=== PATIENT | male | born 1955 | race American Indian/Alaskan Native ===

== ENCOUNTER 2018-05-27 08:46 | Outpatient (CLI) | payer MEDICARE, MEDICAID, SELFPAY ==
[2018-05-27 09:06] LABS: Abs Immature Grans 0.05 k/cumm (0.0-0.09); Absolute Eosinophil Count 0.04 k/cumm (0.0-0.7); Absolute Monocyte Count 1.42 k/cumm (0.11-0.7); Basophils % 0.1; Eosinophils % 0.2; HCT 42.4 % (40.0-50.0); HGB 14.5 g/dL (13.5-17.5); Immature Grans % 0.3; Lymphocytes % 5.3; Mean Corp. HGB Concentration 34.2 g/dL (32.0-36.0); Mean Corpuscular Hemoglobin 32.5 pg (27.0-33.0); Mean Corpuscular Volume 95.1 fL (80-95); Mean Platelet Volume 9.5 fL (8.0-11.0); Monocytes % 8.1; Platelet Count 233 x1000/uL (130-400); RBC 4.46 m/cumm (4.50-6.00); White Blood Cell Count 17.52 k/cumm (4.4-10.8)
[2018-05-27 09:07] LABS: Absolute Basophil Count 0.02 k/cumm (0.0-0.2); Absolute Lymphocyte Count 0.93 k/cumm (1.2-3.4); Absolute Neutrophil Count 15.07 k/cumm (1.2-6.7)
== END 2018-05-27 08:47 ==
PROVIDERS: PCP Nurse Practitioner Psychiatric/Mental Health; Visit Provider Nurse Practitioner Psychiatric/Mental Health
DX: F20.9 Schizophrenia, unspecified (principal); Z79.899 Other long term (current) drug therapy
CPT/HCPCS: 36415; 85025

== ENCOUNTER 2018-06-24 08:46 | Outpatient (CLI) | payer MEDICARE, MEDICAID, SELFPAY ==
[2018-06-24 09:22] LABS: Abs Immature Grans 0.03 k/cumm (0.0-0.09); Absolute Eosinophil Count 0.06 k/cumm (0.0-0.7); Absolute Lymphocyte Count 1.02 k/cumm (1.2-3.4); Absolute Monocyte Count 0.59 k/cumm (0.11-0.7); Absolute Neutrophil Count 4.23 k/cumm (1.2-6.7); HCT 42.1 % (40.0-50.0); Immature Grans % 0.5; Lymphocytes % 17.2; Mean Corp. HGB Concentration 33.3 g/dL (32.0-36.0); Mean Corpuscular Hemoglobin 32.1 pg (27.0-33.0); Mean Corpuscular Volume 96.6 fL (80-95); Monocytes % 9.9; Neutrophils % 71.4; Platelet Count 212 x1000/uL (130-400); RBC 4.36 m/cumm (4.50-6.00); RBC Distribution Width 13.5 % (11.8-14.1); White Blood Cell Count 5.93 k/cumm (4.4-10.8)
== END 2018-06-24 09:06 ==
PROVIDERS: PCP Nurse Practitioner Psychiatric/Mental Health; Visit Provider Nurse Practitioner Psychiatric/Mental Health
DX: F20.9 Schizophrenia, unspecified (principal); Z79.899 Other long term (current) drug therapy
CPT/HCPCS: 36415; 85025

== ENCOUNTER 2018-07-22 08:43 | Outpatient (CLI) | payer MEDICARE, MEDICAID, SELFPAY ==
[2018-07-22 09:30] LABS: Abs Immature Grans 0.26 k/cumm (0.0-0.09); Absolute Lymphocyte Count 0.87 k/cumm (1.2-3.4); Absolute Monocyte Count 1.57 k/cumm (0.11-0.7); Absolute Neutrophil Count 11.24 k/cumm (1.2-6.7); Basophils % 0.1; Eosinophils % 0.6; HCT 36.5 % (40.0-50.0); HGB 12.3 g/dL (13.5-17.5); Immature Grans % 1.9; Lymphocytes % 6.2; Mean Corp. HGB Concentration 33.7 g/dL (32.0-36.0); Mean Corpuscular Hemoglobin 32.1 pg (27.0-33.0); Mean Corpuscular Volume 95.3 fL (80-95); Mean Platelet Volume 9.3 fL (8.0-11.0); Monocytes % 11.2; Platelet Count 417 x1000/uL (130-400); RBC 3.83 m/cumm (4.50-6.00); RBC Distribution Width 12.6 % (11.8-14.1); White Blood Cell Count 14.05 k/cumm (4.4-10.8)
[2018-07-22 09:33] LABS: Absolute Basophil Count 0.01 k/cumm (0.0-0.2); Absolute Eosinophil Count 0.08 k/cumm (0.0-0.7)
[2018-07-22 09:55] LABS: Diff Comment Manual Differential; RBC Morphology Normal
== END 2018-07-22 09:03 ==
PROVIDERS: PCP Nurse Practitioner Psychiatric/Mental Health; Visit Provider Nurse Practitioner Psychiatric/Mental Health
DX: F20.9 Schizophrenia, unspecified (principal); Z79.899 Other long term (current) drug therapy
CPT/HCPCS: 36415; 85025

== ENCOUNTER 2018-08-06 09:00 | Outpatient (CLI) | payer MEDICARE, MEDICAID, SELFPAY ==
[2018-08-06 09:36] LABS: Abs Immature Grans 0.04 k/cumm (0.0-0.09); Absolute Basophil Count 0.01 k/cumm (0.0-0.2); Absolute Eosinophil Count 0.07 k/cumm (0.0-0.7); Absolute Monocyte Count 0.75 k/cumm (0.11-0.7); Absolute Neutrophil Count 5.78 k/cumm (1.2-6.7); Basophils % 0.1; Eosinophils % 0.9; HCT 38.1 % (40.0-50.0); HGB 12.8 g/dL (13.5-17.5); Immature Grans % 0.5; Lymphocytes % 17.4; Mean Corp. HGB Concentration 33.6 g/dL (32.0-36.0); Mean Corpuscular Hemoglobin 32.1 pg (27.0-33.0); Mean Corpuscular Volume 95.5 fL (80-95); Mean Platelet Volume 9.7 fL (8.0-11.0); Monocytes % 9.3; Neutrophils % 71.8; Platelet Count 311 x1000/uL (130-400); RBC 3.99 m/cumm (4.50-6.00); RBC Distribution Width 13.1 % (11.8-14.1); White Blood Cell Count 8.05 k/cumm (4.4-10.8)
== END 2018-08-06 09:20 ==
PROVIDERS: PCP Specialist/Technologist Athletic Trainer; Visit Provider Nurse Practitioner Psychiatric/Mental Health
DX: F20.9 Schizophrenia, unspecified (principal); Z79.899 Other long term (current) drug therapy
CPT/HCPCS: 36415; 85025

== ENCOUNTER 2018-08-09 10:01 | Outpatient (REF) | payer MEDICARE, MEDICAID, SELFPAY ==
[2018-08-12 17:24] LABS: Cortisol, U 26 mcg/24 h (3.5-45); Urine Volume 1550 mL
[2018-08-12 17:42] LABS: Midnight Cortisol <50 ng/dL (<100)
[2018-08-14 10:52] LABS: Urine Volume 1550 mL
== END 2018-08-09 10:21 ==
LOC: LBN 10:01
PROVIDERS: PCP Specialist/Technologist Athletic Trainer; Visit Provider Internal Medicine Endocrinology, Diabetes & Metabolism
DX: E27.8 Other specified disorders of adrenal gland (principal)
CPT/HCPCS: 81050; 82384; 82530; 83789

== ENCOUNTER 2018-08-18 11:34 | Outpatient (REF) | payer MEDICARE, MEDICAID, SELFPAY ==
[2018-08-18 21:59] LABS: Anion Gap 9.3 mmol/L (3-11); BUN 13 mg/dL (7-18); CO2 26.7 mmol/L (21.0-32.0); CREATININE 0.85 mg/dL (0.70-1.30); Calcium 8.7 mg/dL (8.5-10.1); Chloride 102 mmol/L (98-107); Glucose 150 mg/dL (70-100); Potassium 4.5 mmol/L (3.5-5.1); Sodium 138 mmol/L (136-145)
[2018-08-18 23:27] LABS: Cholesterol 126 mg/dL (50-200); HDL Cholesterol 58 mg/dL (40-60); LDL CHOLESTEROL 54 mg/dL (<100); Triglyceride 48 mg/dL (30-150)
== END 2018-08-18 11:54 ==
LOC: NCHCN 11:34
PROVIDERS: PCP Specialist/Technologist Athletic Trainer; Visit Provider Specialist/Technologist Athletic Trainer
DX: E78.5 Hyperlipidemia, unspecified (principal); E11.9 Type 2 diabetes mellitus without complications
CPT/HCPCS: 80048; 80061; 83721

== ENCOUNTER 2018-08-19 00:48 | Outpatient (CLI) | payer MEDICARE, MEDICAID, SELFPAY ==
--- NOTE | 2018-08-19 13:16 | DI.CTLCSR_ITS ---
SYMPTOMS/DIAGNOSIS: CURRENT SMOKER, F17.210; COPD WO EXACERBATION, J44.[address], LOW DOSE LUNG CANCER SCREENING PROTOCOL: CT examination of the chest was performed utilizing low dose lung cancer screening protocol. Examination is compared with most recent chest CT of . The lungs were clear at that time except for mild apparent scarring or atelectasis in the lingula and right middle lobe. On today's examination, there are scattered and diffuse reticulonodular radiodensities involving a large portion of the right lower lobe and significant areas of the right upper lobe as well. There are multiple focal areas of irregular increased radiodensity, which may represent small areas of consolidation. A couple of questionable areas of microcavitation may be present. Similar findings are seen in left upper lobe peripherally. Most prominent area of increased intrapulmonary radiodensity is an area of ground- glass and consolidative infiltrate in the right upper lobe adjacent to the fissure, this again may contain a couple of small areas of microcavitation. The findings are most consistent with infectious or inflammatory process; possibility of neoplastic disease not excluded on the basis of this examination. Clinical correlation and follow-up CT recommended. Note is again made of diffuse central lobular emphysema, no gross mediastinal mass or adenopathy. No gross bronchiectasis. No pleural effusion. CONCLUSION: 1. Probable diffuse infectious versus inflammatory process, neoplastic disease not excluded. 2. Six-month low dose chest CT followup recommended for part solid 24 mm right upper lobe lesion as described above. Lung-RAD Category: 3- Probably Benign, with modifier S. Lung- RAD Management of Findings: 6 month LDCT follow-up
== END 2018-08-19 01:08 ==
PROVIDERS: PCP Specialist/Technologist Athletic Trainer; Visit Provider Internal Medicine
DX: Z12.2 Encounter for screening for malignant neoplasm of respiratory organs (principal); F17.210 Nicotine dependence, cigarettes, uncomplicated; J44.9 Chronic obstructive pulmonary disease, unspecified; R91.8 Other nonspecific abnormal finding of lung field; R91.1 Solitary pulmonary nodule
CPT/HCPCS: G0297

== ENCOUNTER 2018-09-03 08:47 | Outpatient (CLI) | payer MEDICARE, MEDICAID, SELFPAY ==
[2018-09-03 09:34] LABS: Abs Immature Grans 0.05 k/cumm (0.0-0.09); Absolute Basophil Count 0.01 k/cumm (0.0-0.2); Absolute Eosinophil Count 0.21 k/cumm (0.0-0.7); Absolute Lymphocyte Count 1.23 k/cumm (1.2-3.4); Absolute Monocyte Count 0.93 k/cumm (0.11-0.7); Absolute Neutrophil Count 12.38 k/cumm (1.2-6.7); Basophils % 0.1; Eosinophils % 1.4; HCT 38.3 % (40.0-50.0); HGB 12.4 g/dL (13.5-17.5); Immature Grans % 0.3; Lymphocytes % 8.3; Mean Corp. HGB Concentration 32.4 g/dL (32.0-36.0); Mean Corpuscular Hemoglobin 31.3 pg (27.0-33.0); Mean Corpuscular Volume 96.7 fL (80-95); Monocytes % 6.3; Neutrophils % 83.6; Platelet Count 346 x1000/uL (130-400); RBC 3.96 m/cumm (4.50-6.00); RBC Distribution Width 13.7 % (11.8-14.1); White Blood Cell Count 14.81 k/cumm (4.4-10.8)
== END 2018-09-03 09:07 ==
PROVIDERS: PCP Specialist/Technologist Athletic Trainer; Visit Provider Nurse Practitioner Psychiatric/Mental Health
DX: F20.9 Schizophrenia, unspecified (principal); Z79.899 Other long term (current) drug therapy
CPT/HCPCS: 36415; 85025

== ENCOUNTER 2018-10-01 09:18 | Outpatient (CLI) | payer MEDICARE, MEDICAID, SELFPAY ==
[2018-10-01 10:14] LABS: Abs Immature Grans 0.11 k/cumm (0.0-0.09); Absolute Eosinophil Count 0.06 k/cumm (0.0-0.7); Absolute Monocyte Count 1.57 k/cumm (0.11-0.7); Eosinophils % 0.2; HCT 32.9 % (40.0-50.0); HGB 10.7 g/dL (13.5-17.5); Immature Grans % 0.4; Lymphocytes % 3.6; Mean Corp. HGB Concentration 32.5 g/dL (32.0-36.0); Mean Corpuscular Hemoglobin 31.1 pg (27.0-33.0); Mean Corpuscular Volume 95.6 fL (80-95); Mean Platelet Volume 10.2 fL (8.0-11.0); Monocytes % 5.4; Neutrophils % 90.4; Platelet Count 272 x1000/uL (130-400); RBC 3.44 m/cumm (4.50-6.00); RBC Distribution Width 13.7 % (11.8-14.1)
[2018-10-01 10:38] LABS: Absolute Lymphocyte Count 1.05 k/cumm (1.2-3.4); White Blood Cell Count 29.09 k/cumm (4.4-10.8)
[2018-10-01 10:39] LABS: Diff Comment Agrees w/ Instrument; RBC Morphology Normal
== END 2018-10-01 09:38 ==
PROVIDERS: PCP Specialist/Technologist Athletic Trainer; Visit Provider Nurse Practitioner Psychiatric/Mental Health
DX: F20.9 Schizophrenia, unspecified (principal); Z79.899 Other long term (current) drug therapy
CPT/HCPCS: 85025

== ENCOUNTER 2018-11-05 09:52 | Outpatient (CLI) | payer MEDICARE, MEDICAID, SELFPAY ==
[2018-11-05 10:26] LABS: Abs Immature Grans 0.07 k/cumm (0.0-0.09); Absolute Eosinophil Count 0.16 k/cumm (0.0-0.7); Absolute Lymphocyte Count 1.28 k/cumm (1.2-3.4); Basophils % 0.1; Eosinophils % 0.9; HCT 35.7 % (40.0-50.0); HGB 11.1 g/dL (13.5-17.5); Immature Grans % 0.4; Lymphocytes % 7.2; Mean Corp. HGB Concentration 31.1 g/dL (32.0-36.0); Mean Corpuscular Hemoglobin 28.7 pg (27.0-33.0); Mean Corpuscular Volume 92.2 fL (80-95); Mean Platelet Volume 9.2 fL (8.0-11.0); Monocytes % 7.2; Neutrophils % 84.2; Platelet Count 403 x1000/uL (130-400); RBC 3.87 m/cumm (4.50-6.00); RBC Distribution Width 13.5 % (11.8-14.1); White Blood Cell Count 17.71 k/cumm (4.4-10.8)
[2018-11-05 10:39] LABS: Absolute Basophil Count 0.02 k/cumm (0.0-0.2); Absolute Monocyte Count 1.28 k/cumm (0.11-0.7); Absolute Neutrophil Count 14.91 k/cumm (1.2-6.7)
== END 2018-11-05 10:12 ==
PROVIDERS: PCP Specialist/Technologist Athletic Trainer; Visit Provider Nurse Practitioner Psychiatric/Mental Health
DX: F20.9 Schizophrenia, unspecified (principal); Z79.899 Other long term (current) drug therapy
CPT/HCPCS: 36415; 85025

== ENCOUNTER 2018-11-17 13:40 | Outpatient (REF) | payer MEDICARE, MEDICAID, SELFPAY ==
[2018-11-17 20:58] LABS: Absolute Basophil Count 0.01 k/cumm (0.0-0.2); Absolute Eosinophil Count 0.06 k/cumm (0.0-0.7); Absolute Lymphocyte Count 1.19 k/cumm (1.2-3.4); Absolute Monocyte Count 1.08 k/cumm (0.11-0.7); Absolute Neutrophil Count 12.29 k/cumm (1.2-6.7); Basophils % 0.1; Eosinophils % 0.4; HCT 32.6 % (40.0-50.0); HGB 10.4 g/dL (13.5-17.5); Immature Grans % 0.7; Lymphocytes % 8.1; Mean Corp. HGB Concentration 31.9 g/dL (32.0-36.0); Mean Corpuscular Volume 90.8 fL (80-95); Mean Platelet Volume 9.9 fL (8.0-11.0); Monocytes % 7.3; Neutrophils % 83.4; Platelet Count 480 x1000/uL (130-400); RBC 3.59 m/cumm (4.50-6.00); RBC Distribution Width 13.9 % (11.8-14.1); White Blood Cell Count 14.74 k/cumm (4.4-10.8)
[2018-11-17 21:09] LABS: Iron 25 ug/dL (50-175); Total Iron Binding Capacity 271 ug/dL (250-450); Transferrin Sat 9 % (20-55)
[2018-11-17 21:36] LABS: Anion Gap 9.9 mmol/L (3-11); BUN 9 mg/dL (7-18); CO2 30.1 mmol/L (21.0-32.0); Calcium 8.7 mg/dL (8.5-10.1); Chloride 100 mmol/L (98-107); Ferritin 69 ng/mL (8-388); Folate 6.4 ng/mL (8.6-20.0); Glucose 175 mg/dL (70-100); Potassium 4.5 mmol/L (3.5-5.1); Sodium 140 mmol/L (136-145); Vitamin B12 278 pg/mL (193-986)
[2018-11-17 21:47] LABS: C-Reactive Protein 2.69 mg/dL (0.0-0.3)
[2018-11-17 23:09] LABS: ESR 116 MM/HR (1-20)
== END 2018-11-17 14:00 ==
LOC: NCHCN 13:40
PROVIDERS: PCP Specialist/Technologist Athletic Trainer; Visit Provider Specialist/Technologist Athletic Trainer
DX: D64.9 Anemia, unspecified (principal)
CPT/HCPCS: 80048; 85652; 82607; 82728; 82746; 83540; 83550; 85025; 86140

== ENCOUNTER 2018-12-01 08:35 | Inpatient (IN) | payer MEDICARE, MEDICAID, SELFPAY ==
[2018-12-01] VITALS (61 sets, daily range): BP systolic 133–165; BP diastolic 62–82; PULSE 78–96; RESP 8–38; TEMP 36.5–36.9; O2SAT 87–97
--- NOTE | 2018-12-01 08:58 | W.ED.GENAD ---
Discharge Plan Disposition Patient Disposition: [facility] INPATIENT Condition: Stable Discharge Details Chief Complaint: RespSymp Clinical Impression: Pulmonary cavitary lesion Reason For Visit: CARLEX Primary Care Provider: Vinnie Black ED Provider: Tyshawn Aguirre Home Meds and New Rx's Prescriptions: No Action celecoxib [Celebrex] 200 MG capsule 200 mg PO DAILY RF: 0 ziprasidone HCl [Geodon] 80 MG capsule 160 mg PO .QHS RF: 0 ziprasidone HCl [Geodon] 80 MG capsule 80 mg PO DAILY RF: 0 aspirin 325 MG tablet 325 mg PO DAILY RF: 0 clozapine [Clozaril] 100 MG tablet 200 mg PO DAILY RF: 0 clozapine [Clozaril] 100 MG tablet 325 mg PO .QHS RF: 0 acetaminophen [Mapap Extra Strength] 500 MG tablet 1,000 mg PO .Q8HRS RF: 0 simvastatin 20 MG tablet 20 mg PO .QHS RF: 0 metformin 1,000 MG tablet 1,000 mg PO BID RF: 0 omeprazole 20 MG capsule,delayed release(DR/EC) 20 mg PO DAILY RF: 0 Flovent HFA 120 PUFF HFA aerosol inhaler 2 puff Inhalation BID RF: 0 pioglitazone [Actos] 30 MG tablet 30 mg PO DAILY RF: 0 bupropion HCl [Wellbutrin XL] 300 MG tablet extended release 24 hr 300 mg PO DAILY RF: 0 Spiriva with HandiHaler 1 PUFF capsule, w/inhalation device 1 puff Inhalation DAILY RF: 0 Incruse Ellipta 1 PUFF blister with device 1 puff Inhalation DAILY RF: 0 ProAir RespiClick 90 MCG aerosol powdr breath activated 2 puff Inhalation QID PRNRF: 0 Medical Decision Making 63-year-old male with a history of COPD notes that he has had 1 week of cough with mild shortness of breath. This morning had a bloody nose and then had a coughing spell with production of clot. He states he has had some brown sputum this week. He arrives afebrile, well-appearing, saturating 94% on 1 L oxygen applied by EMS with improved. Given his history of COPD patient given inhaled DuoNeb updrafts, parenteral steroids, and referred for chest x-ray. Patient has hypomagnesemia and hypokalemia and supplementation initiated in the ED. Note of mild anemia with hgb 8. Chest x-ray reveals a right base mass/opacity and patient referred for CT scan of the chest which reveals cavitary lung lesions RML and RLL. Blood cultures obtained, sputum culture pending, and patient given Zosyn. Case discussed with Dr. Matos, who requested I discuss with available pulmonary consultation. No beds available at [facility]. [facility] contacted and case discussed with on-call pulmonology Dr. Stanley. She states that they would not acutely intervene on the patient. She recommends admission, coverage with broad-spectrum antibiotics and states that this likely aspiration with anaerobes but if there is not radiographic resolution or clinical decline that pulmonology is available for repeat consultation. Patient to be admitted to [facility]. Lab Data Lab results reviewed: Yes I reviewed the patient's lab results. Laboratory Results - last 24 hr 12/01/18 09:00 Sodium 141 Potassium 3.0 L Chloride 102 Carbon Dioxide 30.1 Anion Gap 8.9 BUN 10 Creatinine 0.82 Estimated GFR/1.73 m2 >= 60.00 Glucose 196 H Calcium 7.7 L Magnesium 1.0 L Total Bilirubin 0.3 AST 10 L ALT 8 L Alkaline Phosphatase 98 Troponin I 0.02 Total Protein 6.6 Albumin 2.1 L ECG Data Attestation: I personally reviewed and interpreted this ECG (s) as follows: Interpretation: Normal sinus rhythm, rate of 87, the QRS is narrow, there is nonspecific flattening of the ST segments without ST segment elevation HPI General Mode of arrival: EMS. Date/Time Provider Initiated Documentation: 12/01/18 08:41. Limitations to Documentation: no limitations. Information obtained by: patient and EMS. History of Present Illness described as moderate, Quality is described as dull, and is localized to the chest. Patient reports no radiation. Patient started experiencing this day(s) and it has been constant. Rest improves symptom(s), Other factors that worsen symptoms (Exercise) . Patient notes cough and other (Bloody nose this morning and then coughed up blood.); denies fever/chills. Patient did receive the following treatments prior to arrival, other (Oxygen) Related Data Home Medications Medication Instructions Recorded Confirmed Flovent HFA 2 puff INHALATION BID 06/18/17 12/01/18 Incruse Ellipta 1 puff INHALATION DAILY 06/18/17 12/01/18 ProAir RespiClick 2 puff INHALATION QID PRN 06/18/17 12/01/18 Spiriva with HandiHaler 1 puff INHALATION DAILY 06/18/17 12/01/18 acetaminophen [Mapap Extra 1,000 mg PO .Q8HRS 06/18/17 12/01/18 Strength] aspirin 325 mg PO DAILY 06/18/17 12/01/18 bupropion HCl [Wellbutrin XL] 300 mg PO DAILY 06/18/17 12/01/18 celecoxib [Celebrex] 200 mg PO DAILY 06/18/17 12/01/18 clozapine [Clozaril] 200 mg PO DAILY 06/18/17 12/01/18 clozapine [Clozaril] 325 mg PO .QHS 06/18/17 12/01/18 metformin 1,000 mg PO BID 06/18/17 12/01/18 omeprazole 20 mg PO DAILY 06/18/17 12/01/18 pioglitazone [Actos] 30 mg PO DAILY 06/18/17 12/01/18 simvastatin 20 mg PO .QHS 06/18/17 12/01/18 ziprasidone HCl [Geodon] 80 mg PO DAILY 06/18/17 12/01/18 ziprasidone HCl [Geodon] 160 mg PO .QHS 06/18/17 12/01/18 Allergies Allergy/AdvReac Type Severity Reaction Status Date / Time No Known Allergies Allergy Unverified 06/18/17 15:49 General Stated Complaint: RespSymp KENYON: 3 Review of Systems Review of Systems 8 systems reviewed and otherwise [facility] Social History Smoking and Tabacco status: Former Tobacco Use Exam Narrative Exam Narrative: GEN: awake, alert, oriented 3. Pleasant, well groomed, interactive. HEAD: Normocephalic, atraumatic ENT: Mucous membranes moist, oropharynx unremarkable, nares with dried blood, no active bleeding external ear exam unremarkable EYES: PERRL, EOMI NECK: Full ROM, no JESSE, no menigismus CHEST/RESP: Nontender, clear to auscultation bilateral, no wheeze/rhonchi/rales but diminished bilat right greater than left at the base CARDIOVASCULAR: RRR, no murmur, rub zackary. 2+ Rad pulse bilateral ABDOMEN: Soft, nontender, no mass. +Bowel sounds EXT: Full ROM, no edema, no rash Neuro: Grossly normal neurologic exam, conversant, interactive. Psych: Speech fluent, thoughts congruent, affect normal Course Vital Signs Temperature 36.9 C 12/01/18 08:49 Pulse 92 H 12/01/18 08:49 Respiratory Rate 20 12/01/18 08:49 Blood Pressure 133/69 12/01/18 08:49 Pulse Oximetry 95 12/01/18 08:49 Temperature 36.9 C 12/01/18 08:49 Temperature Source Temporal Artery Scan 12/01/18 08:49 Pulse 92 H 12/01/18 08:49 Respiratory Rate 20 12/01/18 08:49 Respiratory Effort Non-Labored 12/01/18 08:54 Blood Pressure 133/69 12/01/18 08:49 Pulse Oximetry 95 12/01/18 08:49 Oxygen Delivery Method Nasal Cannula 12/01/18 08:49 Oxygen Flow Rate 2 12/01/18 08:49
--- NOTE | 2018-12-01 09:00 | DI.RAD_ITS ---
SYMPTOM/DIAGNOSIS: SOB, COPD, SPUTUM PRODUCTION PA AND LATERAL CHEST: Comparison is made with 11/13/[address] dated 08/19/18. The heart size is normal. There is now a dense infiltrate seen in the right lower lobe as well as an additional infiltrate versus atelectasis seen anteriorly in the right lower lobe. There is right sided volume loss. The left lung appears clear. There are underlying emphysematous changes. No effusions are seen. IMPRESSION: Right lower lobe dense infiltrate. Underlying emphysematous and fibrotic changes.
[2018-12-01] MEDS: Albuterol/Ipratropium 3 ML UPD VIAL UPD ×4 (09:06→23:56)
[2018-12-01] MEDS: methylPREDNISolone SUCC 125 MG VIAL IVP (09:06)
[2018-12-01 09:29] LABS: HCT 26.9 % (40.0-50.0); HGB 8.6 g/dL (13.5-17.5); Immature Grans % 0.6; Mean Corpuscular Volume 87.6 fL (80-95); Mean Platelet Volume 9.3 fL (8.0-11.0); Platelet Count 417 x1000/uL (130-400); RBC 3.07 m/cumm (4.50-6.00); RBC Distribution Width 14.1 % (11.8-14.1); White Blood Cell Count 18.29 k/cumm (4.4-10.8)
[2018-12-01 09:41] LABS: ALT 8 U/L (12-78); AST 10 U/L (15-37); Albumin 2.1 g/dL (3.4-5.0); Alkaline Phosphatase 98 U/L (46-116); Anion Gap 8.9 mmol/L (3-11); BUN 10 mg/dL (7-18); Bilirubin, Total 0.3 mg/dL (0.2-1.0); CO2 30.1 mmol/L (21.0-32.0); CREATININE 0.82 mg/dL (0.70-1.30); Calcium 7.7 mg/dL (8.5-10.1); Chloride 102 mmol/L (98-107); Glucose 196 mg/dL (70-100); Sodium 141 mmol/L (136-145); Total Protein 6.6 g/dL (6.4-8.2); Troponin I 0.02 ng/mL (0.00-0.06)
--- NOTE | 2018-12-01 09:41 | NUR.NOTE ---
Nursing Note: Pt awake and alert. occasional harsh cough. states he had some blood in his sputum prior to arrival in ED. neb tx given. currently getting CXR titrated from 2 to 1 L NC oxygen. no acute resp distress. Will continue to monitor.
[2018-12-01 09:59] LABS: Absolute Neutrophil Count 16.83 k/cumm (1.2-6.7)
[2018-12-01 10:00] LABS: Absolute Lymphocyte Count 0.37 k/cumm (1.2-3.4); Diff Comment Manual Differential
[2018-12-01 10:01] LABS: Polychromasia Present
[2018-12-01] MEDS: MAGNESIUM SULFATE 2 GM/50 ML BAG IVPB ×2 (10:05→14:21)
[2018-12-01] MEDS: Potassium Chloride Liquid 20 MEQ PKT PO (10:05)
--- NOTE | 2018-12-01 10:18 | DI.CT_ITS ---
SYMPTOM/DIAGNOSIS: WEAKNESS, COUGH, RT BASE MASS CHEST CT: Comparison is made with low dose chest CT for lung cancer screening dated 08/19/18. Images were performed from the clavicles through the mid portion of the kidneys after IV contrast. There are underlying emphysematous and mild fibrotic changes. There are now multiple bilateral areas of dense consolidation in the right lower lobe. There are areas of cavitation. The findings could represent pulmonary abscesses versus septic emboli. There are a few smaller lesions seen in the right upper lobe anteromedially as well as posteriorly. There is right sided volume loss. Material is noted within the bronchi which may represent mucus. This extends mainly in the right lower lobe extending to the level of the hilum. No pleural or pericardial effusions are seen. The pulmonary arteries and aorta are not well opacified with IV contrast. Pulmonary emboli cannot be excluded. There is no gross evidence of emboli. There is no evidence of aortic dissection. There is an area of high density within an area of water density in the right lower lobe which may represent an active contrast extravasation. There are small mediastinal lymph nodes, consistent with reactive lymph nodes. There is stable prominence of both adrenal glands. Spleen shows small calcifications. The upper portion of the liver is unremarkable. No bony destruction is seen. Degenerative changes are noted in the spine. IMPRESSION: Multiple areas of air space consolidation with air fluid levels suspicious for pulmonary abscesses or septic emboli. There is significant mucus in the right lower lobe bronchi.
[2018-12-01] MEDS: Omnipaque 350 MG/ML 100 ML BTL IJ (10:20)
[2018-12-01] MEDS: POTASSIUM CHLORIDE 10 MEQ/100 ML BAG 100 MEQ IVPB (11:18)
[2018-12-01] MEDS: PIPERACILLIN/TAZO 3.375 GM in Normal Saline 50 ML IVPB ×3 (11:46→23:56)
--- NOTE | 2018-12-01 13:13 | PDOC.ERCMPRO ---
Care Management Progress Note 3/4-Koko is a 63 year old male that resides at [facility] in [facility]. Koko is being admitted for a pulmonary cavitary lesion. This CM called [employer] and spoke with Tyshawn Vences. Tyshawn states that Koko's mental health diagnosis is Schizophrenia with delusional thoughts. Linda Shore, psychiatric nurse practitioner, prescribes Koko's psychiatric medications. Vinnie Black is Koko's PCP. Koko has Medicare and Medicaid. Person to notify for Koko is his sister Sarai De La Fuente in [place]. This CM notified Sarai and she stated that Kook is his own person and that she helps him make decisions. Koko had requested that this CM call Sarai. Sarai requested more information. Dr. Aguirre called her and discussed Koko's diagnosis. Justinpamella requested his teeth be brought in. Tyshawn from [facility] stated that he would find someone to bring in Koko's teeth. Petra from [facility] called and stated that she was bringing in Koko's teeth along with his clozaril. Petra stated the last time Koko was here the hospital did not have the clozaril. Discussed with Dr. Aguirre who stated to have Petra bring it in.
--- NOTE | 2018-12-01 13:38 | CMPROGNOTE_ITS ---
Care Management Progress Note 3/4-Koko is a 63 year old male that resides at [facility] in [facility]. Koko is being admitted for a pulmonary cavitary lesion. This CM called [employer] and spoke with Tyshawn Vences. Tyshawn states that Koko's mental health diagnosis is Schizophrenia with delusional thoughts. Linda Shore, psychiatric nurse practitioner, prescribes Koko's psychiatric medications. Vinnie Black is Koko's PCP. Koko has Medicare and Medicaid. Person to notify for Koko is his sister Sarai De La Fuente in [place]. This CM notified Sarai and she stated that Koko is his own person and that she helps him make decisions. Koko had requested that this CM call Sarai. Sarai requested more information. Dr. Aguirre called her and discussed Koko's diagnosis. Justinpamella requested his teeth be brought in. Tyshawn from [facility] stated that he would find someone to bring in Koko's teeth. Petra from [facility] called and stated that she was bringing in Koko's teeth along with his clozaril. Petra stated the last time Koko was here the hospital did not have the clozaril. Discussed with Dr. Aguirre who stated to have Petra bring it in.
--- NOTE | 2018-12-01 14:00 | DI.US_ITS ---
SYMPTOMS/DIAGNOSIS: UNABLE TO RULE OUT PE ON CTA, ASSESS FOR DVT BILATERAL LOWER EXTREMITY ULTRASOUND: The femoral and popliteal veins, as well as visualized portions of the calf veins, are freely compressible. No thrombus is visible. The Doppler venous waveform augments normally. No superficial venous thrombosis or Banegas's cyst is seen. IMPRESSION: Negative bilateral lower extremity ultrasound.
--- NOTE | 2018-12-01 14:01 | NUR.NOTE ---
Nursing Note: Pt has been off unit at [facility] since 1314. report given to Med Surg, bed not available at this time. will continue to monitor.
[2018-12-01] MEDS: Docusate Sodium 100 MG CAP PO ×2 (14:20→20:54)
[2018-12-01] MEDS: MetroNIDAZOLE 500 MG/100 ML BAG 100 MG IVPB ×2 (14:21→20:54)
--- NOTE | 2018-12-01 15:09 | NUR.NOTE ---
Nursing Note: Pt moved to room 4, still awaiting bed placement.
[2018-12-01] MEDS: methylPREDNISolone SUCC 125 MG VIAL 80 MG IVP ×2 (16:09→23:55)
[2018-12-01] MEDS: Albuterol 2.5 MG/3 ML INH SOLN VIAL UPD (16:14)
--- NOTE | 2018-12-01 16:15 | NUR.NOTE ---
Nursing Note: Pt was 89% on 2.5L, PRN breathing tx given, will continue to monitor. 94% oxygen while on neb. no acute resp distress.
--- NOTE | 2018-12-01 16:41 | NUR.NOTE ---
Nursing Note: Nurse to nurse report given to Daphney RYAN at [facility].
--- NOTE | 2018-12-01 16:56 | HPE_ITS ---
Date of service: 12/01/18 Time of Service: 17:09 Assessment and Plan (1) CAP (community acquired pneumonia): Start date: 12/01/18 Start time: 16:55 Current visit: Yes Status: Acute HX COPD lives in a facility,presents today with hemoptysis this could be CAP, Aspiration pneumonia, TB can not be excluded, and lung abscess. CXR with Right lower lobe infilitrate and CT scan suspicious for pulmonary abscesses. Started on Vanco, zosyn, flagyl, will get echo to r/o endocarditis given pulmonary abscesses, r/o TB, denies fevers, night sweats and recent weight loss. Doppler u/s negative for DVT. Steroids, albuterol and updraft. (2) Hemoptysis: Start date: 12/01/18 Start time: 17:01 Current visit: Yes Status: Acute Awaiting sputum culture, see above. (3) Diabetes: Start date: 12/01/18 Start time: 17:01 Current visit: Yes Status: Chronic NIDD2. Will use SSI while in the hospital, hold actos and metformin for tighter control in setting of infection. (4) Schizo affective schizophrenia: Start date: 12/01/18 Start time: 17:02 Current visit: Yes Status: Acute Continue clozapine and geodeon (5) Lung abscess: Start date: 12/01/18 Start time: 17:05 Current visit: Yes Status: Acute CT reveals lung abscess, being treated for CAP, Aspiration, Pneumonia, r/o endocarditis with ECHO, swallow eval, vanco, flagyl and zosyn for pneumonia. R/o TB as well. (6) Cavitary lesion of lung: Start date: 12/01/18 Start time: 17:07 Current visit: Yes Status: Acute see above (7) DVT prophylaxis: Start date: 12/01/18 Start time: 17:07 Current visit: Yes Status: Acute Chemical prophylaxis is contraindicated with hemopytsis. TEDs and SCDs. History of Present Illness Chief Complaint: HEMOPTYSIS, CAP, LUNG ABSCESSES Narrative: Mr. Estevez is a 63 y.o. m with history of COPD who presents to [facility] Emergency Department for weakness and Hemoptysis onset this am. Mr Estevez has a PMH COPD not on oxygen, Schizophrenia, NIDD 2, and CVA 4-5 years ago without deficit. He lives in an assisted living facility and over the last couple of weeks has been feeling more tired. Per staff he has not been febrile or coughing, no weight loss, and no night sweats. This morning he s tarted coughing up blood. In the Emergency department a CXR was done revealing Right lower lobe dense infiltrate. Underlying emphysematous and fibrotic changes. A chest CT shows multiple areas of air space consolidation with air fluid levels suspicious for pulmonary abscesses or septic emboli. He was started on vanco, zosyn and flagyl for questionable CAP, Aspiration pneumonia. A swallow evaluation has been ordered for questionable asp. pneumonia TB can not be excluded at this time, a sputum culture has been ordered along with [employer] TB Gold. Given the lung abscesses an Echo is ordered for questionable endocarditis. Nebs, steroids and updrafts will be started. Venous doppler u/s was negative for DVT. Mechanical dvt prophylaxis is held at this time in the presence of hemoptysis. SCD and TEDs have been ordered. He is a Schizophrenia on clozapine and geodon which will be continued. He is a diabetic, his po medication will be held and SSI will be implemented given he is on steroids and in the setting of infection. Review of Systems Constitutional Reports system reviewed and no additional complaints, except as docu Eyes Reports system reviewed and no additional complaints, except as docu Cardiovascular Reports system reviewed and no additional complaints, except as docu Respiratory Reports as per HPI Gastrointestinal Reports system reviewed and no additional complaints, except as docu Genitourinary Reports system reviewed and no additional complaints, except as docu Musculoskeletal Reports system reviewed and no additional complaints, except as docu Neurologic Reports system reviewed and no additional complaints, except as docu Psychiatric Reports as per HPI Endocrine Reports system reviewed and no additional complaints, except as docu Hematologic/Lymphatic Reports system reviewed and no additional complaints, except as docu PFSH Medical History H/O schizophrenia (Acute) H/O: CVA (cerebrovascular accident) (Acute) COPD (chronic obstructive pulmonary disease) (Chronic) Diabetes mellitus (Chronic) Social History Smoking and Tabacco status: Former Tobacco Use Meds Home Medications Medication Instructions Recorded Confirmed Type Flovent HFA 2 puff INHALATION BID 06/18/17 12/01/18 History Incruse Ellipta 1 puff INHALATION DAILY 06/18/17 12/01/18 History ProAir RespiClick 2 puff INHALATION QID PRN 06/18/17 12/01/18 History Spiriva with HandiHaler 1 puff INHALATION DAILY 06/18/17 12/01/18 History acetaminophen [Mapap Extra 1,000 mg PO .Q8HRS 06/18/17 12/01/18 History Strength] aspirin 325 mg PO DAILY 06/18/17 12/01/18 History bupropion HCl [Wellbutrin XL] 300 mg PO DAILY 06/18/17 12/01/18 History celecoxib [Celebrex] 200 mg PO DAILY 06/18/17 12/01/18 History clozapine [Clozaril] 200 mg PO DAILY 06/18/17 12/01/18 History clozapine [Clozaril] 325 mg PO .QHS 06/18/17 12/01/18 History metformin 1,000 mg PO BID 06/18/17 12/01/18 History omeprazole 20 mg PO DAILY 06/18/17 12/01/18 History pioglitazone [Actos] 30 mg PO DAILY 06/18/17 12/01/18 History simvastatin 20 mg PO .QHS 06/18/17 12/01/18 History ziprasidone HCl [Geodon] 80 mg PO DAILY 06/18/17 12/01/18 History ziprasidone HCl [Geodon] 160 mg PO .QHS 06/18/17 12/01/18 History Allergies Allergy/AdvReac Type Severity Reaction Status Date / Time No Known Allergies Allergy Unverified 06/18/17 15:49 Exam Const General: cooperative and no acute distress [facility] Head: normal to inspection Teeth and gingiva: poor dentition Eyes General: appearance normal, both eyes and all related structures Neck Neck: normal visual inspection Lymphatic: no lymphadenopathy noted and no lymphedema noted Chest Chest: normal inspection of the chest Resp Effort & Inspection: normal respiratory effort and able to speak in complete sentences Auscultation: rhonchi Cardio Jugular venous pressure: no JVD Rate: regular rate Rhythm: regular rhythm Heart Sounds: S1 normal and S2 normal GI Inspection: normal to inspection Palpation: soft and no hepatosplenomegaly Other: obtunded abdomen Skin General skin exam: no rashes or lesions noted Neuro General: alert, awake and oriented x3 Psych Speech and Movement: other (speech is hard to understand, poor dentition) Results Labs : 12/01/18 09:00 12/01/18 09:00 Laboratory Results - last 24 hr 12/01/18 12/01/18 09:00 09:00 WBC 18.29 H RBC 3.07 L Hgb 8.6 L Hct 26.9 L MCV 87.6 MCH 28.0 MCHC 32.0 RDW 14.1 Plt Count 417 H MPV 9.3 Immature Gran % 0.6 Neutrophils % 92.0 Lymphocytes % 2.0 Monocytes % 6.0 Eosinophils % 0.0 Basophils % 0.0 Absolute Neutrophils 16.83 H Absolute Lymphocytes 0.37 L Absolute Monocytes 1.10 H Absolute Eosinophils 0.00 Absolute Basophils 0.00 Differential Comment Manual differential RBC Morphology See below Polychromasia Present Sodium 141 Potassium 3.0 L Chloride 102 Carbon Dioxide 30.1 Anion Gap 8.9 BUN 10 Creatinine 0.82 Estimated GFR/1.73 m2 >= 60.00 Glucose 196 H Calcium 7.7 L Magnesium 1.0 L Total Bilirubin 0.3 AST 10 L ALT 8 L Alkaline Phosphatase 98 Troponin I 0.02 Total Protein 6.6 Albumin 2.1 L Last Vital Signs Temp 36.9 C 12/01/18 08:49 Pulse 90 12/01/18 16:16 Resp 31 H 12/01/18 16:30 BP 159/62 H 12/01/18 16:16 Pulse Ox 91 L 12/01/18 16:30
[2018-12-01] MEDS: Insulin Aspart 300 UNITS/3 ML PEN SC ×2 (17:51→22:03)
--- NOTE | 2018-12-01 19:03 | NUR.NOTE ---
Nursing Note: 12/01/2018 1700H Patient admitted to Med/surg room 228. Patient walked from stretcher to bed safely with good gait. BP elevated at 150/75 otherwise other VS stable. Patient is Alert & oriented x3, calm and cooperative. Made aware of his surroundings.
[2018-12-01] MEDS: Magnesium Chloride 64 MG TABCR PO (20:54)
[2018-12-01] MEDS: guaiFENesin 600 MG TABCR PO (20:54)
[2018-12-01] MEDS: Simvastatin 20 MG TAB PO (20:54)
[2018-12-01] MEDS: Budesonide/Formoterol 160/4.5 6 GM 60 PUFF INH IH (20:55)
[2018-12-01] MEDS: Normal Saline Flush 10 ML SYR IVP (23:56)
[2018-12-02] VITALS (14 sets, daily range): BP systolic 116–175; BP diastolic 45–87; PULSE 77–94; RESP 2–24; TEMP 36–36.8; O2SAT 90–98
[2018-12-02] MEDS: Normal Saline Flush 10 ML SYR IVP ×3 (00:49→23:40)
[2018-12-02] MEDS: MetroNIDAZOLE 500 MG/100 ML BAG 100 MG IVPB ×4 (02:10→21:36)
[2018-12-02] MEDS: Albuterol/Ipratropium 3 ML UPD VIAL UPD ×4 (05:42→23:40)
[2018-12-02] MEDS: PIPERACILLIN/TAZO 3.375 GM in Normal Saline 50 ML IVPB ×4 (05:42→23:40)
[2018-12-02 07:41] LABS: HCT 26.9 % (40.0-50.0); HGB 8.5 g/dL (13.5-17.5); Mean Corp. HGB Concentration 31.6 g/dL (32.0-36.0); Mean Corpuscular Hemoglobin 27.6 pg (27.0-33.0); Mean Corpuscular Volume 87.3 fL (80-95); Mean Platelet Volume 9.3 fL (8.0-11.0); Platelet Count 385 x1000/uL (130-400); RBC 3.08 m/cumm (4.50-6.00); RBC Distribution Width 13.9 % (11.8-14.1); White Blood Cell Count 22.61 k/cumm (4.4-10.8)
[2018-12-02 08:21] LABS: Absolute Lymphocyte Count 0.45 k/cumm (1.2-3.4); Absolute Neutrophil Count 21.25 k/cumm (1.2-6.7); Diff Comment Manual Differential; Hypochromasia 1+
[2018-12-02 08:22] LABS: Poikilocytes 1+; Polychromasia Present
[2018-12-02] MEDS: Docusate Sodium 100 MG CAP PO ×3 (08:47→20:24)
[2018-12-02] MEDS: guaiFENesin 600 MG TABCR PO ×2 (08:47→20:23)
[2018-12-02] MEDS: buPROPion-XL 150 MG TABCR 300 MG PO (08:48)
[2018-12-02] MEDS: Pantoprazole 40 MG TABCR PO ×2 (08:49→20:24)
[2018-12-02] MEDS: Magnesium Chloride 64 MG TABCR PO ×2 (08:49→20:23)
[2018-12-02] MEDS: methylPREDNISolone SUCC 125 MG VIAL 80 MG IVP ×3 (08:50→23:39)
[2018-12-02] MEDS: Insulin Aspart 300 UNITS/3 ML PEN SC ×4 (08:55→21:41)
--- NOTE | 2018-12-02 08:55 | MERGE_ITS ---
*[facility]* *[facility]* [address] [place] [address] Date of study: 12/02/2018 Transthoracic Echocardiography M-mode, complete 2D, complete spectral Doppler, and color Doppler *STUDY CONCLUSIONS* Impressions: There are no typical features of vegetative endocarditis. Summary: 1. Left ventricle: The cavity size was normal. Wall thickness was normal. Systolic function was normal. The estimated ejection fraction was 60-65%. Wall motion was normal; there were no regional wall motion abnormalities. 2. Right ventricle: The cavity size was normal. Wall thickness was normal. Systolic function was normal. 3. Pulmonary arteries: Pulmonary systolic pressure was increased, in the range of 35mm Hg to 40mm Hg. *PATIENT PRESENTATION* Height: 175.3cm ((69in) ) S/D Pressure: 152 / 60 Weight: 62.6kg ((137.7lb) ) BSA: 1.74m^2 Test start time: 09:00 AM. Test stop time: 09:45 AM. PERFORMING Unknown PERFORMING [facility] CONSULTING Vinnie Black THERAPY SITE COORDINATOR RT Josseline (R)(CT), [facility] ORDERING Ellen Chanel REFERRING Ellen Chanel *PROCEDURE DATA* Procedure information: The patient was identified by two identifiers. This study was interpreted by [facility]. Pertinent images and digital data are archived for permanent storage and are available for subsequent review. No prior study was available for comparison. Study status: STAT. Transthoracic echocardiography. M-mode, complete 2D, complete spectral Doppler, and color Doppler. A Transthoracic Echocardiogram was performed. Scanning was performed from the parasternal, apical, subcostal, and suprasternal notch acoustic windows. Images were obtained using an [id number] cardiac ultrasound machine. Image quality was adequate. Study completion: The patient tolerated the procedure well. There were no complications. History: PMH: R/o endocarditis. *CARDIAC ANATOMY* Left ventricle: The cavity size was normal. Wall thickness was normal. Systolic function was normal. The estimated ejection fraction was 60-65%. Wall motion was normal; there were no regional wall motion abnormalities. Aortic valve: Trileaflet; normal thickness leaflets. Mobility was not restricted. Doppler: Transvalvular velocity was within the normal range. There was no stenosis. There was no significant regurgitation. VTI ratio of LVOT to aortic valve: 0.87. Valve area (VTI): 2.5cm^2. Indexed valve area (VTI): 1.5cm^2/m^2. Peak velocity ratio of LVOT to aortic valve: 0.87. Valve area (Vmax): 2.5cm^2. Indexed valve area (Vmax): 1.5cm^2/m^2. Mean velocity ratio of LVOT to aortic valve: 0.8. Valve area (Vmean): 2.3cm^2. Indexed valve area (Vmean): 1.3cm^2/m^2. Mean gradient (S): 5.5mm Hg. Peak gradient (S): 11.1mm Hg. Aorta: Aortic root: The aortic root was normal in size. Ascending aorta: The ascending aorta was normal in size. Mitral valve: Structurally normal valve. Mobility was not restricted. Doppler: Transvalvular velocity was within the normal range. There was no evidence for stenosis. There was no significant regurgitation. Valve area by pressure half-time: 4cm^2. Indexed valve area by pressure half-time: 2.3cm^2/m^2. Peak gradient (D): 5.5mm Hg. Left atrium: The atrium was normal in size. Right ventricle: The cavity size was normal. Wall thickness was normal. Systolic function was normal. Pulmonic valve: Doppler: Transvalvular velocity was within the normal range. There was no evidence for stenosis. There was no significant regurgitation. Tricuspid valve: Structurally normal valve. Doppler: Transvalvular velocity was within the normal range. There was no evidence for stenosis. There was trivial regurgitation. Pulmonary artery: Pulmonary systolic pressure was increased, in the range of 35mm Hg to 40mm Hg. Right atrium: The atrium was normal in size. Pericardium: There was no pericardial effusion. Systemic veins: Inferior vena cava: Well visualized. The vessel was patent and normal in size. The respirophasic diameter changes were blunted (less than 50%). Baseline ECG: Normal sinus rhythm. Measurements Left ventricle Value Reference LV ID, ED, PLAX 5.3 cm 3.5 - 6.0 LV ID, ES, PLAX 3.4 cm 2.1 - 4.0 LV PW thickness, ED, PLAX 1.0 cm LV end-diastolic volume, 1-p A2C 81 ml LV ejection fraction, 1-p A2C 59 % LV end-diastolic volume, 1-p A4C 116 ml LV ejection fraction, 1-p A4C 64 % LV e', lateral 0.09 m/sec LV E/e', lateral 13 LV e', medial 0.096 m/sec LV E/e', medial 12 LV e', average 0.093 m/sec LV E/e', average 13 Ventricular septum Value Reference IVS thickness, ED, PLAX 1.1 cm LVOT Value Reference LVOT ID, A-P 1.9 cm LVOT area 2.9 cm^2 LVOT peak velocity, S 1.45 m/sec LVOT mean velocity, S 0.86 m/sec LVOT VTI, S 27.9 cm LVOT peak gradient, S 8.4 mm Hg LVOT mean gradient, S 3.7 mm Hg Stroke volume (SV), LVOT DP 81 ml Stroke index (SV/bsa), LVOT DP 47 ml/m^2 Aortic valve Value Reference Aortic valve peak velocity, S 1.7 m/sec Aortic valve mean velocity, S 1.08 m/sec Aortic valve VTI, S 32.0 cm Aortic mean gradient, S 5.5 mm Hg Aortic peak gradient, S 11.1 mm Hg VTI ratio, LVOT/AV 0.87 Aortic valve area, VTI 2.5 cm^2 Velocity ratio, peak, LVOT/AV 0.87 Aortic valve area, peak velocity 2.5 cm^2 Velocity ratio, mean, LVOT/AV 0.8 Aortic valve area, mean velocity 2.3 cm^2 Aortic valve area/bsa, mean velocity 1.3 cm^2/m^2 Aorta Value Reference Aortic root ID, ED 3.1 cm Left atrium Value Reference LA ID, A-P, ES 4.4 cm LA ID/bsa, A-P (H) 2.5 cm/m^2 <=2.2 LA area, ES, A4C 23.2 cm^2 8.8 - 23.4 LA area, ES, A2C 17 cm^2 LA volume/bsa, ES, 1-p A4C 48 ml/m^2 LA volume, ES, 2-p 69 ml LA volume/bsa, ES, 2-p 40 ml/m^2 LA/aortic root ratio 1.4 Mitral valve Value Reference Mitral E-wave peak velocity 1.18 m/sec Mitral A-wave peak velocity 1.64 m/sec Mitral deceleration time 190 ms 150 - 230 Mitral pressure half-time 55 ms Mitral peak gradient, D 5.5 mm Hg Mitral E/A ratio, peak 0.72 Mitral valve area, PHT, DP 4 cm^2 Tricuspid valve Value Reference Tricuspid regurg peak velocity 3 m/sec Tricuspid peak RV-RA gradient 36.8 mm Hg Right atrium Value Reference RA area, ES, A4C 18 cm^2 8.3 - 19.5 Legend: (L) and (H) moy values outside specified reference range. I have personally reviewed the images and have reviewed and edited the reported findings. Electronically signed by Brian Marques 12/02/2018 10:44
[2018-12-02] MEDS: Acetaminophen 325 MG TAB PO ×2 (09:07→20:24)
--- NOTE | 2018-12-02 09:28 | INITIAL_ITS ---
- If Service Date Differs Date of service: 12/02/18 Time of Service: 09:27 Care Management Initial Assess REASON FOR HOSPITALIZATION:: Cavitary Pneumonia rule out TB vs aspiration PAST MEDICAL HISTORY/PAST SURGICAL HISTORY:: Schizo affective disorder, DM PREVIOUS FUNCTIONAL STATUS/SOCIAL/FAMILY SUPPORTS:: Koko resides at [facility]. His mental health is managed by [facility] and CUSTOMER ORDERS CLERK program. He states he is inpendent with some ADL?s and does not use ambulatory aids. He is dependent on [place] for medications transportation, and meals. CURRENT FUNCTIONAL STATUS:: Patient is engaged in assessment. He states he has not been feeling well and having discomfort all over. He complained of frequent ?heart burn? which appears to have been relieved by nitro. Koko states he would like his sister updated with his progress. Has patient been provided with information about the portal?: Yes Did the patient sign up for the portal?: No CODE STATUS:: DNR/DNI INSURANCE COVERAGE / FINANCIAL ISSUES:: Medicare and Medicaid CURRENT HOME/COMMUNITY SERVICES/EQUIPMENT:: [facility]. PRIMARY CARE PHYSICIAN:: [facility] POTENTIAL DISCHARGE NEEDS:: Follow up with primary scheduled prior to discharge. PATIENT/FAMILY EDUCATION NEEDS:: Discharge education, limitations, follow up of care, ask me three and self-management. ANTICIPATED BARRIERS TO DISCHARGE:: none identified TRANSPORTATION:: via assisted-living at time of discharge. PLAN:: Elias is receiving IV antibiotics, and is on airborn precautions rule out TB. Speech consult ordered. He will be discharged back to [facility] when medically ready per provider.
--- NOTE | 2018-12-02 09:28 | EVALE_ITS ---
Date of service: 12/02/18 Time of Service: 08:00 Speech Therapy Evaluation Note: REFERRING PROVIDER: Judy Chanel NP BACKGROUND This is a 63 year old right-handed male who presented to the ED from his community senior care yesterday with a 2-week h/o fatigue and then yesterday morning a sudden-onset hymoptysis. A CXR revealed dense infiltrate of the RLL. A chest CT revealed possible lung abscesses. He was admitted for tx of possible CAP or aspiration pneumonia and a swallow eval was requested. PMH: COPD, DM II, schizophrenia, h/o CVA without deficits (4-5 years ago). The patient (pt) is able to provide additional information regarding p.o. consistencies taken at home in the weeks prior to this admission. He states he was taking what, by description, are Thin liquids, a Dysphagia Advanced diet with fine-chopped meats and multiple whole pills taken at one time with a liquid wash. OBJECTIVE Nursing reports: - T: 36.3 - O2 sat: 91% on 3L via NC - LS: fine crackles L; CTA-R in the presence of ABX - Pt is currently on a Regular consistency diet The pt is laying in bed watching TV. He greets me with good direct eye contact and an intelligible verbal greeting. He converses adequately, both asking and answering questions, but occasionally vears off topic. He is A & O x 3 and able to follow 1-step directions. Oral Sensorimotor Exam The pt has a full upper denture (FUD) on the upper ridge and a combination of his own teeth and a partial denture on the lower ridge. He acknowledges the mild looseness of the FUD but says he prefers to not use denture adhesive. Dentition is stained and one tooth is broken. He denies any oral discomfort from either the dentures or his teeth. Oral sensation is WNL bilaterally (B) for buccal, labial and lingual areas. Motorically, the smile is symmetrical as are forehead wrinkles. Labial & buccal strength/coordination are WNL-B. No lingual deviation on protrusion is seen in a setting of good excursion. Lingual lateralization is WNL-B as are lingual rapid alternating movements. Lingual strength and mandibular lateralization are both WNL-B. Velopharyngeal elevation is strong and symmetrical. Volitional cough and throat-clear are both strong. Speech intelligibility to this unfamiliar listener in the absence of background noise is 100%. Vocal intensity and quality are WNL. Swallowing - Honey-thick liquid: Good bolus control and posterior oral transit (POT); no travon signs/symptoms (s/s) of aspiration/penetration (A/P); oral clearance 100%; no oral escape. These results are true for both single and consecutive swallows by cup. - [place]-thick liquid: Results are the same as for Honey-thick liquid. These results are true for both single and consecutive swallows by both cup and straw. - Thin liquid: Results are the same as for [place]-thick liquid. - Puree food: Good bolus control and linguopalatal bolus compression; POT is WNL; no travon s/s A/P; oral clearance 100%; no oral escape. - Mechanically Altered food: Good mastication quality with use of a rotary chew pattern; bolus control & POT both WNL; no travon s/s A/P; oral clearance 100%; no oral escape. - Dysphagia Advanced diet: Use of increased mastication time but this does result in good mastication quality; bolus control & POT both WNL; no travon s/s A/P; oral clearance 100%; no oral escape. - Whole pills with a Thin liquid wash: a) 1 medium-sized whole pill: good bolus control & POT; no travon s/s A/P; oral clearance 100%; no oral escape. b) 2 medium-sized whole pills taken at one time: Results same as for 1 medium pill. c) 1 large-sized whole pill: Results same as for 1 medium pill. Pt is observed to self-feed using his dominant RUE and a regular utensil. INTERPRETATION The pt shows a mild-moderate oral-prep dysphagia secondary to having both upper & lower dentures. There are no clinical signs of a pharyngeal dysphagia. He is felt to be at low risk of aspiration when taking appropriate p.o. consistencies (Thin liquids, a Dysphagia Advanced diet with fine-chopped meats, whole pills with a liquid wash). RECOMMENDATIONS 1. Change to a Dysphagia Advanced diet with moistened fine-chopped meats. 2 Continue: a) Thin liquids b) Whole pills with a liquid wash 3. Continue independent self-feeding. 4. No speech therapy is indicated at this time. Thank you for referring this pt.
[2018-12-02] MEDS: Mylanta Suspension 30 ML CUP PO ×2 (10:40→14:37)
[2018-12-02] MEDS: Budesonide/Formoterol 160/4.5 6 GM 60 PUFF INH IH ×2 (12:08→20:23)
[2018-12-02 13:55] LABS: Anion Gap 8.2 mmol/L (3-11); BUN 15 mg/dL (7-18); CO2 30.8 mmol/L (21.0-32.0); CREATININE 0.72 mg/dL (0.70-1.30); Calcium 8.3 mg/dL (8.5-10.1); Chloride 103 mmol/L (98-107); Glucose 346 mg/dL (70-100); Magnesium 2.3 mg/dL (1.8-2.4); Potassium 3.5 mmol/L (3.5-5.1); Sodium 142 mmol/L (136-145)
[2018-12-02 15:41] LABS: Troponin I < 0.02 ng/mL (0.00-0.06)
[2018-12-02] MEDS: Normal Saline 1,000 ML 100 ML IV (16:51)
[2018-12-02] MEDS: Calcium Carbonate *TUMS* 500 MG CHEW PO ×2 (16:58→22:39)
--- NOTE | 2018-12-02 19:11 | PGE_ITS ---
Date of Service Date of service: 12/02/18 Time of Service: 14:30 Assessment and Plan (1) Cavitary pneumonia: Current visit: Yes Status: Acute With borderline sepsis. Suspicion for TB - quantiferon gold and sputum for AFB are pending. Until then, will treat for aspiration pneumonia, as recommended by Dr Stanley (pulmonary at [facility]) to Dr Aguirre (our ED). Patient does live in an institutional setting, describes unintentional weight loss and night sweats, so I feel that TB rule out really is indicated. (2) Multiple lung abscesses: Current visit: Yes Status: Acute So far, blood cx are negative and echo does not show any valvular pathology to suggest endocarditis. It is possible that these are due to aspiration, as we have now proven that the patient has dysphagia. Will continue to treat with vancomycin, zosyn, and flagyl. Await sputum cx results. (3) Steroid-induced hyperglycemia: Current visit: Yes Status: Acute Introduce scheduled prandial as well as long acting insulin. (4) Non-insulin dependent type 2 diabetes mellitus: Current visit: Yes Status: Acute As above (5) Hemoptysis: Current visit: Yes Status: Acute Resolved. Likely due to above respiratory processes. Continue to avoid chemical DVT ppx until no hemoptysis x 3 days. (6) Oropharyngeal dysphagia: Current visit: Yes Status: Acute Appreciate speech therapy recommendations - entered. (7) Schizo affective schizophrenia: Current visit: Yes Status: Acute Continue home therapy (8) Normocytic anemia: Current visit: Yes Status: Acute Obtain anemia studies. (9) Discharge planning issues: Current visit: Yes Status: Acute DNR/DNI Not ready for discharge (10) DVT prophylaxis: Current visit: Yes Status: Acute SCD's + TEDs Subjective Interval history since last seen: Complains of aches and pains all over. Also, reports a heartburn (pointing to the left side of the chest) ever since this morning. Denies dizziness, states his breathing is better and that cough has been minimal today. Denies n/v/abdominal pain. Describes a 20 lb weight loss in the last year, that he is happy about but was not exactly intentional. Exam Narrative Exam Narrative: General: Well nourished, anxious male, laying comfortably in bed, not tachypenic HEENT: EOMI, MMM Heart: RRR, no m/r/g Lungs: quiet rales and rhonchi B GI: abdomen is soft, nontender, nondistended Extremities: no e/c/c BLE's Objective Objective Clinical Data: Abnormal lab results 12/02/18 12/02/18 Range/Units 07:24 07:24 WBC 22.61 H (4.4-10.8) k/cumm RBC 3.08 L (4.50-6.00) m/cumm Hgb 8.5 L (13.5-17.5) g/dL Hct 26.9 L (40.0-50.0) % MCHC 31.6 L (32.0-36.0) g/dL Absolute Neutrophils 21.25 H (1.2-6.7) k/cumm Absolute Lymphocytes 0.45 L (1.2-3.4) k/cumm Absolute Monocytes 0.90 H (0.11-0.7) k/cumm Glucose 346 H D (70-100) mg/dL Calcium 8.3 L (8.5-10.1) mg/dL Vital Signs Temperature 36.6 C 12/02/18 15:22 Temperature Source Skin 12/02/18 15:22 Pulse 94 H 12/02/18 16:07 Pulse Rhythm Regular 12/02/18 08:15 Pulse 91 H 12/01/18 16:30 Respiratory Rate 24 12/02/18 15:58 Respiratory Effort Non-Labored 12/02/18 08:15 Respiratory Depth Normal 12/02/18 08:15 Respiratory Pattern Normal 12/02/18 08:15 Blood Pressure 116/61 12/02/18 16:07 Blood Pressure Mean 88 12/01/18 16:16 Pulse Oximetry 91 L 12/02/18 15:58 Oxygen Delivery Method Nasal Cannula 12/02/18 15:22 Oxygen Flow Rate 3 12/02/18 15:22 Pain Level 6 12/02/18 07:40 Comment 12/02/18 15:22 Intake & Output 12/01/18 12/02/18 12/02/18 23:59 11:59 23:59 Intake Total 600 / 600 1030 / 1910 880 / 1910 Output Total 150 / 150 740 / 990 250 / 990 Balance 450 / 450 290 / 920 630 / 920 Weight 63 kg Intake: IV 600 / 600 550 / 950 400 / 950 Oral 480 / 960 480 / 960 Output: Urine 150 / 150 740 / 990 250 / 990 Other: Urine Color Light Vandana Yellow Light Vandana Urine Appearance Clear Clear Clear Urine Odor None Normal Stool Size Moderate Stool Characteristics Formed Voiding Methods Urinal Urinal Urinal Laboratory Results WBC 22.61 k/cumm (4.4-10.8) H 12/02/18 07:24 RBC 3.08 m/cumm (4.50-6.00) L 12/02/18 07:24 Hgb 8.5 g/dL (13.5-17.5) L 12/02/18 07:24 Hct 26.9 % (40.0-50.0) L 12/02/18 07:24 MCV 87.3 fL (80-95) 12/02/18 07:24 MCH 27.6 pg (27.0-33.0) 12/02/18 07:24 MCHC 31.6 g/dL (32.0-36.0) L 12/02/18 07:24 RDW 13.9 % (11.8-14.1) 12/02/18 07:24 Plt Count 385 x1000/uL (130-400) 12/02/18 07:24 MPV 9.3 fL (8.0-11.0) 12/02/18 07:24 Immature Gran % 0.0 12/02/18 07:24 Neutrophils % 93.0 12/02/18 07:24 Band Neutrophils % 1.0 % 12/02/18 07:24 Lymphocytes % 2.0 12/02/18 07:24 Monocytes % 4.0 12/02/18 07:24 Eosinophils % 0.0 12/02/18 07:24 Basophils % 0.0 12/02/18 07:24 Absolute Neutrophils 21.25 k/cumm (1.2-6.7) H 12/02/18 07:24 Absolute Lymphocytes 0.45 k/cumm (1.2-3.4) L 12/02/18 07:24 Absolute Monocytes 0.90 k/cumm (0.11-0.7) H 12/02/18 07:24 Absolute Eosinophils 0.00 k/cumm (0.0-0.7) 12/02/18 07:24 Absolute Basophils 0.00 k/cumm (0.0-0.2) 12/02/18 07:24 Differential Comment Manual differential 12/02/18 07:24 RBC Morphology See below 12/02/18 07:24 Polychromasia Present 12/02/18 07:24 Hypochromasia 1+ 12/02/18 07:24 Poikilocytosis 1+ 12/02/18 07:24 Sodium 142 mmol/L (136-145) 12/02/18 07:24 Potassium 3.5 mmol/L (3.5-5.1) 12/02/18 07:24 Chloride 103 mmol/L (98-107) 12/02/18 07:24 Carbon Dioxide 30.8 mmol/L (21.0-32.0) 12/02/18 07:24 Anion Gap 8.2 mmol/L (3-11) 12/02/18 07:24 BUN 15 mg/dL (7-18) 12/02/18 07:24 Creatinine 0.72 mg/dL (0.70-1.30) 12/02/18 07:24 Estimated GFR/1.73 m2 >= 60.00 (mL/min/1.73m2) 12/02/18 07:24 Glucose 346 mg/dL (70-100) H D 12/02/18 07:24 Calcium 8.3 mg/dL (8.5-10.1) L 12/02/18 07:24 Magnesium 2.3 mg/dL (1.8-2.4) 12/02/18 07:24 Total Bilirubin 0.3 mg/dL (0.2-1.0) 12/01/18 09:00 AST 10 U/L (15-37) L 12/01/18 09:00 ALT 8 U/L (12-78) L 12/01/18 09:00 Alkaline Phosphatase 98 U/L (46-116) 12/01/18 09:00 Troponin I < 0.02 ng/mL (0.00-0.06) 12/02/18 15:10 Total Protein 6.6 g/dL (6.4-8.2) 12/01/18 09:00 Albumin 2.1 g/dL (3.4-5.0) L 12/01/18 09:00 Vancomycin Trough 15.0 ug/mL (10.0-20.0) 12/02/18 15:10 Echo: 1. Left ventricle: The cavity size was normal. Wall thickness was normal. Systolic function was normal. The estimated ejection fraction was 60-65%. Wall motion was normal; there were no regional wall motion abnormalities. 2. Right ventricle: The cavity size was normal. Wall thickness was normal. Systolic function was normal. 3. Pulmonary arteries: Pulmonary systolic pressure was increased, in the range of 35mm Hg to 40mm Hg.
[2018-12-02] MEDS: Simvastatin 20 MG TAB PO (20:24)
[2018-12-02] MEDS: Insulin Glargine 300 UNITS/3 ML PEN 10 UNITS SC (21:40)
[2018-12-02 22:33] LABS: Troponin I 0.02 ng/mL (0.00-0.06)
[2018-12-03] VITALS (12 sets, daily range): BP systolic 162–188; BP diastolic 76–87; PULSE 78–94; RESP 1–22; TEMP 35.9–36.8; O2SAT 92–95
[2018-12-03] MEDS: MetroNIDAZOLE 500 MG/100 ML BAG 100 MG IVPB ×4 (03:35→21:35)
[2018-12-03] MEDS: Normal Saline 1,000 ML 100 ML IV ×2 (04:02→21:35)
[2018-12-03] MEDS: PIPERACILLIN/TAZO 3.375 GM in Normal Saline 50 ML IVPB ×4 (06:02→23:42)
[2018-12-03] MEDS: Calcium Carbonate *TUMS* 500 MG CHEW PO (06:02)
[2018-12-03] MEDS: Albuterol/Ipratropium 3 ML UPD VIAL UPD ×4 (06:03→23:42)
[2018-12-03 07:57] LABS: Abs Immature Grans 0.79 k/cumm (0.0-0.09); HGB 8.9 g/dL (13.5-17.5); Mean Corp. HGB Concentration 30.7 g/dL (32.0-36.0); Mean Corpuscular Volume 87.9 fL (80-95); Mean Platelet Volume 9.2 fL (8.0-11.0); RBC Distribution Width 14.2 % (11.8-14.1)
[2018-12-03 08:30] LABS: Anion Gap 5.8 mmol/L (3-11); BUN 19 mg/dL (7-18); CO2 31.2 mmol/L (21.0-32.0); Calcium 8.7 mg/dL (8.5-10.1); Chloride 103 mmol/L (98-107); Ferritin 114 ng/mL (8-388); Glucose 306 mg/dL (70-100); Potassium 3.7 mmol/L (3.5-5.1); Sodium 140 mmol/L (136-145)
--- NOTE | 2018-12-03 08:32 | PDOC.CMPRO ---
- If Service Date Differs Date of service: 12/03/18 Time of Service: 08:32 Care Management Progress Note S/O: Koko remains on precautions r/o TB. He is being treated for pneumonia with IV antibiotics. He is also having a cardiac work up related to his chest pain yesterday. No changes in the plan today his medications where brought from [facility]. CM contacted sister and left a voicemail to provide update. A:Koko is a 63 year old male admitted with Pneumonia and rule out TB. P: Koko will return to [facility] when medically ready. No additional services at time of discharge. Facility to transport.
[2018-12-03 08:35] LABS: White Blood Cell Count 32.69 k/cumm (4.4-10.8)
--- NOTE | 2018-12-03 08:35 | CMPROGNOTE_ITS ---
- If Service Date Differs Date of service: 12/03/18 Time of Service: 08:32 Care Management Progress Note S/O: Koko remains on precautions r/o TB. He is being treated for pneumonia with IV antibiotics. He is also having a cardiac work up related to his chest pain yesterday. No changes in the plan today his medications where brought from [place]. CM contacted sister and left a voicemail to provide update. A:Koko is a 63 year old male admitted with Pneumonia and rule out TB. P: Koko will return to [facility] when medically ready. No additional services at time of discharge. Facility to transport.
[2018-12-03 08:36] LABS: Absolute Lymphocyte Count 1.31 k/cumm (1.2-3.4); Absolute Monocyte Count 1.96 k/cumm (0.11-0.7); Platelet Count 473 x1000/uL (130-400)
[2018-12-03 08:37] LABS: Absolute Neutrophil Count 28.77 k/cumm (1.2-6.7)
[2018-12-03 08:39] LABS: Diff Comment Manual Differential; Hypochromasia 1+; Polychromasia Present
[2018-12-03 08:40] LABS: Poikilocytes 1+
[2018-12-03 08:44] LABS: Folate 5.6 ng/mL (8.6-20.0); Troponin I < 0.02 ng/mL (0.00-0.06)
[2018-12-03 08:58] LABS: Creatine Kinase 90 U/L (39-308)
[2018-12-03] MEDS: Mylanta Suspension 30 ML CUP PO (09:22)
[2018-12-03] MEDS: Insulin Aspart 300 UNITS/3 ML PEN SC ×7 (09:22→21:40)
[2018-12-03] MEDS: Docusate Sodium 100 MG CAP PO ×3 (09:24→20:02)
[2018-12-03] MEDS: Magnesium Chloride 64 MG TABCR PO ×2 (09:25→20:02)
[2018-12-03] MEDS: guaiFENesin 600 MG TABCR PO ×2 (09:25→20:02)
[2018-12-03] MEDS: Pantoprazole 40 MG TABCR PO ×2 (09:25→20:02)
[2018-12-03] MEDS: buPROPion-XL 150 MG TABCR 300 MG PO (09:26)
[2018-12-03] MEDS: methylPREDNISolone SUCC 125 MG VIAL 80 MG IVP ×3 (09:27→23:42)
[2018-12-03] MEDS: Normal Saline Flush 10 ML SYR IVP ×3 (09:27→21:35)
[2018-12-03 09:41] LABS: Iron 47 ug/dL (50-175); Total Iron Binding Capacity 206 ug/dL (250-450); Transferrin Sat 23 % (20-55); Vitamin B12 263 pg/mL (193-986)
[2018-12-03] MEDS: Budesonide/Formoterol 160/4.5 6 GM 60 PUFF INH IH ×2 (09:46→20:02)
[2018-12-03] MEDS: Famotidine 20 MG TAB PO (12:50)
[2018-12-03] MEDS: amLODIPine 5 MG TAB PO (12:51)
--- NOTE | 2018-12-03 14:52 | PHARADMIT ---
Admission Pharmacy Clinical Review CAVITARY PNEUMONIA, ? SEPTIC EMBOLI/LUNG ABSCESS Code Status DNR/DNI Current Weight Wgt-63 kg Renally Cleared and Narrow Therapeutic Index Meds CrCl! 72 mL/min Meds-OK QTc Value / Action Taken QTc-478 BP Control, Fever BP- 175/87 Tmax- 36.8C Electrolytes reviewed Na- 140 K+3.7 Mag-2.0 DVT Prophylaxis none, Coughing blood Opiate Usage / Scheduled Bowel Regimen Ordered No Yes Plt/SCr for Heparin / Enoxaparin Plts- 473 SCr-0.90 INR for Warfarin NA H/H stable, WBC/Bands H&H- 8.9/29.0 WBC- 32.69 (On steroids) Antibiotic appropriateness Flagyl, Zosyn, Vanco Cultures and Sensitivities Blood- Gram (+) Cocci, Sputum- multiple Amanda [facility] ABX d/c within 24 hr na DM control / Insulin Dosing BG-306 Aspart, Glargine Heart Failure (Check EF%) (APOLONIA's, B-Block, Diuretics) Norvasc, NTG IV to PO Switch No Home Meds Reviewed Yes Home Meds Not Ordered ASA, Celebrex, Flovent, Metformin, Actos, Incruse Laura Comments Tyson- Clozaril, Vancomycin Trough 15 on 12/02
[2018-12-03 15:36] LABS: Vancomycin, Trough 21.8 ug/mL (10.0-20.0)
[2018-12-03] MEDS: Acetaminophen 500 MG TAB 1000 MG PO (17:44)
[2018-12-03] MEDS: Simvastatin 20 MG TAB PO (20:02)
--- NOTE | 2018-12-03 20:09 | W.PM.PROGNOT ---
Date of Service Date of service: 12/03/18 Time of Service: 16:20 Assessment and Plan (1) Cavitary pneumonia: Current visit: Yes Status: Acute With borderline sepsis. Suspicion for TB - quantiferon gold and sputum for AFB are pending. Continue to treat for aspiration pneumonia, seems to be clinically improving. Patient does live in an institutional setting, describes unintentional weight loss and night sweats, so I feel that TB rule out really is indicated. (2) Multiple lung abscesses: Current visit: Yes Status: Acute So far, blood cx are negative and echo does not show any valvular pathology to suggest endocarditis. ? aspiration, as we have now proven that the patient has dysphagia. Continue vancomycin, zosyn, and flagyl. Await sputum cx results. (3) Steroid-induced hyperglycemia: Current visit: Yes Status: Acute Increase basal insulin and introduce prandial insulin. (4) Non-insulin dependent type 2 diabetes mellitus: Current visit: Yes Status: Acute As above (5) Hemoptysis: Current visit: Yes Status: Acute Resolved. Likely due to above respiratory processes. Continue to avoid chemical DVT ppx until no hemoptysis x 3 days. (6) Oropharyngeal dysphagia: Current visit: Yes Status: Acute Appreciate speech therapy recommendations - entered. (7) Schizo affective schizophrenia: Current visit: Yes Status: Acute Continue home therapy (8) Normocytic anemia: Current visit: Yes Status: Acute Evidence of B12 and folic acid deficiency - repleting both. (9) Discharge planning issues: Current visit: Yes Status: Acute DNR/DNI Not ready for discharge (10) DVT prophylaxis: Current visit: Yes Status: Acute SCD's + TEDs Subjective Interval history since last seen: Feels better today. Had a small amount of hemoptysis last night, but none today and, in general, has had very little cough. Denies any chest pain today, dizziness, shortness of breath, nausea, vomiting. States he hasn't been nearly as achy today. Exam Narrative Exam Narrative: General: Well nourished, anxious male, sitting in a chair, looks better HEENT: EOMI, MMM Heart: RRR, no m/r/g Lungs: quiet rales and rhonchi B - improved GI: abdomen is soft, nontender, nondistended Extremities: no e/c/c BLE's Const General: cooperative and no acute distress HENMT Head: normal to inspection Teeth and gingiva: poor dentition Eyes General: appearance normal, both eyes and all related structures Neck Neck: normal visual inspection Lymphatic: no lymphadenopathy noted and no lymphedema noted Chest Chest: normal inspection of the chest Resp Effort & Inspection: normal respiratory effort and able to speak in complete sentences Auscultation: rhonchi Cardio Jugular venous pressure: no JVD Rate: regular rate Rhythm: regular rhythm Heart Sounds: S1 normal and S2 normal GI Inspection: normal to inspection Palpation: soft and no hepatosplenomegaly Skin General skin exam: no rashes or lesions noted Neuro General: alert, awake and oriented x3 Psych Speech and Movement: other (speech is hard to understand, poor dentition) Objective Objective Clinical Data: Abnormal lab results 12/03/18 12/03/18 12/03/18 Range/Units 07:40 07:40 07:40 WBC 32.69 H* D (4.4-10.8) k/cumm RBC 3.30 L (4.50-6.00) m/cumm Hgb 8.9 L (13.5-17.5) g/dL Hct 29.0 L (40.0-50.0) % MCHC 30.7 L (32.0-36.0) g/dL RDW 14.2 H (11.8-14.1) % Plt Count 473 H (130-400) x1000/uL Absolute Neutrophils 28.77 H (1.2-6.7) k/cumm Absolute Monocytes 1.96 H (0.11-0.7) k/cumm BUN 19 H (7-18) mg/dL Glucose 306 H (70-100) mg/dL Iron 47 L (50-175) ug/dL TIBC 206 L (250-450) ug/dL Folate (8.6-20.0) ng/mL Vancomycin Trough (10.0-20.0) ug/mL 12/03/18 12/03/18 Range/Units 07:40 15:05 WBC (4.4-10.8) k/cumm RBC (4.50-6.00) m/cumm Hgb (13.5-17.5) g/dL Hct (40.0-50.0) % MCHC (32.0-36.0) g/dL RDW (11.8-14.1) % Plt Count (130-400) x1000/uL Absolute Neutrophils (1.2-6.7) k/cumm Absolute Monocytes (0.11-0.7) k/cumm BUN (7-18) mg/dL Glucose (70-100) mg/dL Iron (50-175) ug/dL TIBC (250-450) ug/dL Folate 5.6 L (8.6-20.0) ng/mL Vancomycin Trough 21.8 H* (10.0-20.0) ug/mL Vital Signs Temperature 36.4 C L 12/03/18 19:25 Temperature Source Tympanic 12/03/18 19:25 Pulse 85 12/03/18 19:25 Pulse Rhythm Regular 12/03/18 08:10 Pulse 91 H 12/01/18 16:30 Respiratory Rate 18 12/03/18 19:25 Respiratory Effort Non-Labored 12/03/18 08:10 Respiratory Depth Normal 12/03/18 08:10 Respiratory Pattern Normal 12/03/18 08:10 Blood Pressure 167/81 H 12/03/18 19:25 Blood Pressure Mean 88 12/01/18 16:16 Pulse Oximetry 95 12/03/18 19:25 Oxygen Delivery Method Nasal Cannula 12/03/18 19:25 Oxygen Flow Rate 2 12/03/18 19:25 Pain Level 6 12/02/18 07:40 Comment 12/02/18 15:22 Intake & Output 12/02/18 12/03/18 12/03/18 23:59 11:59 23:59 Intake Total 1030 / 2060 1650 / 1800 150 / 1800 Output Total 250 / 990 1200 / 1550 350 / 1550 Balance 780 / 1070 450 / 250 -200 / 250 Intake: IV 550 / 1100 1500 / 1650 150 / 1650 Oral 480 / 960 150 / 150 Output: Urine 250 / 990 1200 / 1550 350 / 1550 Other: Urine Color Light Vandana Yellow Yellow Urine Appearance Clear Cloudy Clear Urine Odor None Stool Occult Blood Negative Stool Size Moderate Large Stool Characteristics Formed Brown Voiding Methods Urinal Urinal Urinal Laboratory Results WBC 32.69 k/cumm (4.4-10.8) H* D 12/03/18 07:40 RBC 3.30 m/cumm (4.50-6.00) L 12/03/18 07:40 Hgb 8.9 g/dL (13.5-17.5) L 12/03/18 07:40 Hct 29.0 % (40.0-50.0) L 12/03/18 07:40 MCV 87.9 fL (80-95) 12/03/18 07:40 MCH 27.0 pg (27.0-33.0) 12/03/18 07:40 MCHC 30.7 g/dL (32.0-36.0) L 12/03/18 07:40 RDW 14.2 % (11.8-14.1) H 12/03/18 07:40 Plt Count 473 x1000/uL (130-400) H 12/03/18 07:40 MPV 9.2 fL (8.0-11.0) 12/03/18 07:40 Immature Gran % See Differential 12/03/18 07:40 Neutrophils % 85.0 12/03/18 07:40 Band Neutrophils % 3.0 % 12/03/18 07:40 Lymphocytes % 4.0 12/03/18 07:40 Monocytes % 6.0 12/03/18 07:40 Eosinophils % 0.0 12/03/18 07:40 Basophils % 0.0 12/03/18 07:40 Metamyelocytes % 2.0 % 12/03/18 07:40 Absolute Neutrophils 28.77 k/cumm (1.2-6.7) H 12/03/18 07:40 Absolute Lymphocytes 1.31 k/cumm (1.2-3.4) 12/03/18 07:40 Absolute Monocytes 1.96 k/cumm (0.11-0.7) H 12/03/18 07:40 Absolute Eosinophils 0.00 k/cumm (0.0-0.7) 12/03/18 07:40 Absolute Basophils 0.00 k/cumm (0.0-0.2) 12/03/18 07:40 Differential Comment Manual differential 12/03/18 07:40 RBC Morphology See below 12/03/18 07:40 Polychromasia Present 12/03/18 07:40 Hypochromasia 1+ 12/03/18 07:40 Poikilocytosis 1+ 12/03/18 07:40 Sodium 140 mmol/L (136-145) 12/03/18 07:40 Potassium 3.7 mmol/L (3.5-5.1) 12/03/18 07:40 Chloride 103 mmol/L (98-107) 12/03/18 07:40 Carbon Dioxide 31.2 mmol/L (21.0-32.0) 12/03/18 07:40 Anion Gap 5.8 mmol/L (3-11) 12/03/18 07:40 BUN 19 mg/dL (7-18) H 12/03/18 07:40 Creatinine 0.90 mg/dL (0.70-1.30) 12/03/18 07:40 Estimated GFR/1.73 m2 >= 60.00 (mL/min/1.73m2) 12/03/18 07:40 Glucose 306 mg/dL (70-100) H 12/03/18 07:40 Calcium 8.7 mg/dL (8.5-10.1) 12/03/18 07:40 Magnesium 2.0 mg/dL (1.8-2.4) 12/03/18 07:40 Iron 47 ug/dL (50-175) L 12/03/18 07:40 TIBC 206 ug/dL (250-450) L 12/03/18 07:40 Transferrin % Sat 23 % (20-55) 12/03/18 07:40 Ferritin 114 ng/mL (8-388) 12/03/18 07:40 Total Bilirubin 0.3 mg/dL (0.2-1.0) 12/01/18 09:00 AST 10 U/L (15-37) L 12/01/18 09:00 ALT 8 U/L (12-78) L 12/01/18 09:00 Alkaline Phosphatase 98 U/L (46-116) 12/01/18 09:00 Creatine Kinase 90 U/L (39-308) 12/03/18 07:40 Troponin I < 0.02 ng/mL (0.00-0.06) 12/03/18 07:40 Total Protein 6.6 g/dL (6.4-8.2) 12/01/18 09:00 Albumin 2.1 g/dL (3.4-5.0) L 12/01/18 09:00 Vitamin B12 263 pg/mL (193-986) 12/03/18 07:40 Folate 5.6 ng/mL (8.6-20.0) L 12/03/18 07:40 Vancomycin Trough 21.8 ug/mL (10.0-20.0) H* 12/03/18 15:05
[2018-12-03] MEDS: Insulin Glargine 300 UNITS/3 ML PEN 15 UNITS SC (21:38)
[2018-12-04] VITALS (11 sets, daily range): BP systolic 171–185; BP diastolic 86–92; PULSE 81–92; RESP 2–20; TEMP 35–36.6; O2SAT 92–95
[2018-12-04] MEDS: MetroNIDAZOLE 500 MG/100 ML BAG 100 MG IVPB ×4 (03:27→22:01)
[2018-12-04] MEDS: PIPERACILLIN/TAZO 3.375 GM in Normal Saline 50 ML IVPB ×4 (05:45→23:18)
[2018-12-04] MEDS: Albuterol/Ipratropium 3 ML UPD VIAL UPD ×3 (05:45→18:40)
[2018-12-04] MEDS: Pantoprazole 40 MG TABCR PO ×2 (06:46→20:36)
[2018-12-04 07:13] LABS: Abs Immature Grans 0.95 k/cumm (0.0-0.09); HCT 27.7 % (40.0-50.0); HGB 8.7 g/dL (13.5-17.5); Mean Corp. HGB Concentration 31.4 g/dL (32.0-36.0); Mean Corpuscular Hemoglobin 27.5 pg (27.0-33.0); Mean Corpuscular Volume 87.7 fL (80-95); Mean Platelet Volume 9.4 fL (8.0-11.0); Platelet Count 491 x1000/uL (130-400); RBC 3.16 m/cumm (4.50-6.00); RBC Distribution Width 14.3 % (11.8-14.1)
[2018-12-04 07:29] LABS: Anion Gap 8.4 mmol/L (3-11); BUN 15 mg/dL (7-18); CO2 30.6 mmol/L (21.0-32.0); CREATININE 0.81 mg/dL (0.70-1.30); Calcium 8.3 mg/dL (8.5-10.1); Chloride 103 mmol/L (98-107); Glucose 311 mg/dL (70-100); Magnesium 1.9 mg/dL (1.8-2.4); Sodium 142 mmol/L (136-145)
[2018-12-04] MEDS: Budesonide/Formoterol 160/4.5 6 GM 60 PUFF INH IH ×2 (07:35→20:37)
[2018-12-04 07:56] LABS: White Blood Cell Count 25.44 k/cumm (4.4-10.8)
[2018-12-04 07:57] LABS: Absolute Lymphocyte Count 1.53 k/cumm (1.2-3.4); Absolute Monocyte Count 0.51 k/cumm (0.11-0.7); Absolute Neutrophil Count 23.15 k/cumm (1.2-6.7); Diff Comment Manual Differential; Hypochromasia 1+
[2018-12-04 07:58] LABS: Microcytosis 2+
--- NOTE | 2018-12-04 09:08 | PDOC.CMPRO ---
- If Service Date Differs Date of service: 12/04/18 Time of Service: 09:08 Care Management Progress Note S/O: Koko is doing well, he is cooperative. He remains on precautions rule out TB. He is receiving IV antibiotics, IV steroids, awaiting send out labs to rule out TB. No changes in status today, he will return to [facility] when medically ready. Meds in pharmacy that need to be obtained before he is discharged. A:Koko is a 63 year old male admitted with Pneumonia and rule out TB. P: Koko will return to [facility] when medically ready. No additional services at time of discharge. Facility to transport.
--- NOTE | 2018-12-04 09:11 | CMPROGNOTE_ITS ---
- If Service Date Differs Date of service: 12/04/18 Time of Service: 09:08 Care Management Progress Note S/O: Koko is doing well, he is cooperative. He remains on precautions rule out TB. He is receiving IV antibiotics, IV steroids, awaiting send out labs to rule out TB. No changes in status today, he will return to [facility] when medically ready. Meds in pharmacy that need to be obtained before he is discharged. A:Koko is a 63 year old male admitted with Pneumonia and rule out TB. P: Koko will return to [facility] when medically ready. No additional services at time of discharge. Facility to transport.
[2018-12-04] MEDS: Insulin Aspart 300 UNITS/3 ML PEN SC ×7 (09:13→22:00)
[2018-12-04] MEDS: Magnesium Chloride 64 MG TABCR PO ×2 (09:15→20:35)
[2018-12-04] MEDS: amLODIPine 5 MG TAB PO (09:15)
[2018-12-04] MEDS: Folic Acid 1 MG TAB PO (09:15)
[2018-12-04] MEDS: Docusate Sodium 100 MG CAP PO ×3 (09:15→20:39)
[2018-12-04] MEDS: buPROPion-XL 150 MG TABCR 300 MG PO (09:15)
[2018-12-04] MEDS: guaiFENesin 600 MG TABCR PO ×2 (09:16→20:35)
[2018-12-04] MEDS: Multivitamin TAB 1 TAB PO (09:16)
[2018-12-04] MEDS: Famotidine 20 MG TAB PO (09:16)
[2018-12-04] MEDS: Cyanocobalamin 500 MCG TAB 1000 MCG PO (09:16)
[2018-12-04] MEDS: methylPREDNISolone SUCC 125 MG VIAL 80 MG IVP (09:16)
[2018-12-04] MEDS: Normal Saline 1,000 ML 100 ML IV (11:27)
[2018-12-04] MEDS: Acetaminophen 500 MG TAB 1000 MG PO (14:15)
[2018-12-04] MEDS: traMADol 50 MG TAB PO (16:39)
--- NOTE | 2018-12-04 20:10 | W.PM.PROGNOT ---
Date of Service Date of service: 12/04/18 Time of Service: 15:20 Assessment and Plan (1) Cavitary pneumonia: Current visit: Yes Status: Acute With borderline sepsis. Suspicion for TB - quantiferon gold and sputum for AFB are pending. Continue treatment for aspiration pneumonia with zosyn + flagyl. May d/c vancomycin if CXR tomorrow is showing improvement. Patient does live in an institutional setting, describes unintentional weight loss and night sweats, so I feel that TB rule out really is indicated. (2) Multiple lung abscesses: Current visit: Yes Status: Acute So far, blood cx are negative and echo does not show any valvular pathology to suggest endocarditis. ? aspiration, as we have now proven that the patient has dysphagia. Continue vancomycin, zosyn, and flagyl. Await sputum cx results. (3) Steroid-induced hyperglycemia: Current visit: Yes Status: Acute Increase basal insulin and introduce prandial insulin. (4) Non-insulin dependent type 2 diabetes mellitus: Current visit: Yes Status: Acute As above (5) Hemoptysis: Current visit: Yes Status: Acute Resolved. Likely due to above respiratory processes. Continue to avoid chemical DVT ppx until no hemoptysis x 3 days. (6) Oropharyngeal dysphagia: Current visit: Yes Status: Acute Appreciate speech therapy recommendations - continue modified diet (7) Schizo affective schizophrenia: Current visit: Yes Status: Acute Continue home therapy (8) Normocytic anemia: Current visit: Yes Status: Acute Evidence of B12 and folic acid deficiency - repleting both. (9) Discharge planning issues: Current visit: Yes Status: Acute DNR/DNI Not ready for discharge (10) DVT prophylaxis: Current visit: Yes Status: Acute SCD's + TEDs Subjective Interval history since last seen: States he has had no hemoptysis today - however, he hasn't been spitting out his sputum, so he doesn't actually know. He denies dizziness, chest pain, heart burn, shortness of breath, nausea. He remains hypoxic at 92% on 3L of o2. Exam Narrative Exam Narrative: General: Well nourished, anxious male, sitting in a chair, looks better HEENT: EOMI, MMM Heart: RRR, no m/r/g Lungs: I hear more rales today GI: abdomen is soft, nontender, nondistended Extremities: trace edema BLE's, no c/c BLE's Objective Objective Clinical Data: Abnormal lab results 12/04/18 12/04/18 Range/Units 06:42 06:42 WBC 25.44 H* (4.4-10.8) k/cumm RBC 3.16 L (4.50-6.00) m/cumm Hgb 8.7 L (13.5-17.5) g/dL Hct 27.7 L (40.0-50.0) % MCHC 31.4 L (32.0-36.0) g/dL RDW 14.3 H (11.8-14.1) % Plt Count 491 H (130-400) x1000/uL Absolute Neutrophils 23.15 H (1.2-6.7) k/cumm Glucose 311 H (70-100) mg/dL Calcium 8.3 L (8.5-10.1) mg/dL Vital Signs Temperature 36.2 C L 12/04/18 16:37 Temperature Source Temporal Artery Scan 12/04/18 16:37 Pulse 86 12/04/18 16:37 Pulse Rhythm Regular 12/04/18 09:58 Pulse 91 H 12/01/18 16:30 Respiratory Rate 18 12/04/18 16:37 Respiratory Effort Non-Labored 12/04/18 09:58 Respiratory Depth Normal 12/04/18 09:58 Respiratory Pattern Normal 12/04/18 09:58 Blood Pressure 174/89 H 12/04/18 16:37 Blood Pressure Mean 88 12/01/18 16:16 Pulse Oximetry 92 L 12/04/18 16:37 Oxygen Delivery Method Nasal Cannula 12/04/18 16:37 Oxygen Flow Rate 3 12/04/18 16:37 Pain Level 2 12/04/18 17:39 Comment 12/02/18 15:22 Intake & Output 12/03/18 12/04/18 12/04/18 23:59 11:59 23:59 Intake Total 1660 / 3310 1550 / 2240 690 / 2240 Output Total 750 / 1950 1700 / 3100 1400 / 3100 Balance 910 / 1360 -150 / -860 -710 / -860 Intake: IV 1660 / 3160 1550 / 2000 450 / 2000 Oral 240 / 240 Output: Urine 750 / 1950 1700 / 3100 1400 / 3100 Other: Urine Color Yellow Yellow Yellow Urine Appearance Clear Clear Clear Urine Odor Normal Stool Occult Blood Positive Positive Stool Size Small Moderate Stool Characteristics Hard Formed Black Black Voiding Methods Urinal Urinal Urinal Laboratory Results WBC 25.44 k/cumm (4.4-10.8) H* 12/04/18 06:42 RBC 3.16 m/cumm (4.50-6.00) L 12/04/18 06:42 Hgb 8.7 g/dL (13.5-17.5) L 12/04/18 06:42 Hct 27.7 % (40.0-50.0) L 12/04/18 06:42 MCV 87.7 fL (80-95) 12/04/18 06:42 MCH 27.5 pg (27.0-33.0) 12/04/18 06:42 MCHC 31.4 g/dL (32.0-36.0) L 12/04/18 06:42 RDW 14.3 % (11.8-14.1) H 12/04/18 06:42 Plt Count 491 x1000/uL (130-400) H 12/04/18 06:42 MPV 9.4 fL (8.0-11.0) 12/04/18 06:42 Immature Gran % See Differential 12/04/18 06:42 Neutrophils % 91.0 12/04/18 06:42 Band Neutrophils % 3.0 % 12/03/18 07:40 Lymphocytes % 6.0 12/04/18 06:42 Monocytes % 2.0 12/04/18 06:42 Eosinophils % 0.0 12/04/18 06:42 Basophils % 0.0 12/04/18 06:42 Metamyelocytes % 1.0 % 12/04/18 06:42 Absolute Neutrophils 23.15 k/cumm (1.2-6.7) H 12/04/18 06:42 Absolute Lymphocytes 1.53 k/cumm (1.2-3.4) 12/04/18 06:42 Absolute Monocytes 0.51 k/cumm (0.11-0.7) 12/04/18 06:42 Absolute Eosinophils 0.00 k/cumm (0.0-0.7) 12/04/18 06:42 Absolute Basophils 0.00 k/cumm (0.0-0.2) 12/04/18 06:42 Differential Comment Manual differential 12/04/18 06:42 RBC Morphology See below 12/04/18 06:42 Polychromasia Present 12/03/18 07:40 Hypochromasia 1+ 12/04/18 06:42 Poikilocytosis 1+ 12/03/18 07:40 Microcytosis 2+ 12/04/18 06:42 Sodium 142 mmol/L (136-145) 12/04/18 06:42 Potassium 4.0 mmol/L (3.5-5.1) 12/04/18 06:42 Chloride 103 mmol/L (98-107) 12/04/18 06:42 Carbon Dioxide 30.6 mmol/L (21.0-32.0) 12/04/18 06:42 Anion Gap 8.4 mmol/L (3-11) 12/04/18 06:42 BUN 15 mg/dL (7-18) 12/04/18 06:42 Creatinine 0.81 mg/dL (0.70-1.30) 12/04/18 06:42 Estimated GFR/1.73 m2 >= 60.00 (mL/min/1.73m2) 12/04/18 06:42 Glucose 311 mg/dL (70-100) H 12/04/18 06:42 Calcium 8.3 mg/dL (8.5-10.1) L 12/04/18 06:42 Magnesium 1.9 mg/dL (1.8-2.4) 12/04/18 06:42 Iron 47 ug/dL (50-175) L 12/03/18 07:40 TIBC 206 ug/dL (250-450) L 12/03/18 07:40 Transferrin % Sat 23 % (20-55) 12/03/18 07:40 Ferritin 114 ng/mL (8-388) 12/03/18 07:40 Total Bilirubin 0.3 mg/dL (0.2-1.0) 12/01/18 09:00 AST 10 U/L (15-37) L 12/01/18 09:00 ALT 8 U/L (12-78) L 12/01/18 09:00 Alkaline Phosphatase 98 U/L (46-116) 12/01/18 09:00 Creatine Kinase 90 U/L (39-308) 12/03/18 07:40 Troponin I < 0.02 ng/mL (0.00-0.06) 12/03/18 07:40 Total Protein 6.6 g/dL (6.4-8.2) 12/01/18 09:00 Albumin 2.1 g/dL (3.4-5.0) L 12/01/18 09:00 Vitamin B12 263 pg/mL (193-986) 12/03/18 07:40 Folate 5.6 ng/mL (8.6-20.0) L 12/03/18 07:40 Vancomycin Trough 21.8 ug/mL (10.0-20.0) H* 12/03/18 15:05
[2018-12-04] MEDS: methylPREDNISolone SUCC 125 MG VIAL 60 MG IVP (20:36)
[2018-12-04] MEDS: Simvastatin 20 MG TAB PO (20:36)
[2018-12-04] MEDS: Normal Saline Flush 10 ML SYR IVP ×2 (20:37→22:02)
[2018-12-04] MEDS: Insulin Glargine 300 UNITS/3 ML PEN 20 UNITS SC (21:58)
[2018-12-05] VITALS (12 sets, daily range): BP systolic 131–161; BP diastolic 78–83; PULSE 74–93; RESP 1–20; TEMP 36–36.8; O2SAT 91–96
[2018-12-05] MEDS: Albuterol/Ipratropium 3 ML UPD VIAL UPD ×4 (00:44→18:29)
[2018-12-05] MEDS: MetroNIDAZOLE 500 MG/100 ML BAG 100 MG IVPB ×3 (04:11→16:49)
[2018-12-05] MEDS: Normal Saline Flush 10 ML SYR IVP ×5 (04:11→15:50)
[2018-12-05] MEDS: PIPERACILLIN/TAZO 3.375 GM in Normal Saline 50 ML IVPB ×2 (05:40→12:34)
--- NOTE | 2018-12-05 06:16 | DI.RAD_ITS ---
SYMPTOM/DIAGNOSIS: F/U PNEUMONIA PORTABLE AP CHEST: Comparison is made with 12/01/18. Heart size and pulmonary vasculature are within normal limits. There is linear atelectasis seen in the left lung base. There has been some improvement in the air space opacities in the right lower lobe. There is a persistent ovoid, 7 cm. opacity in the right lower lobe. No new infiltrates, effusions or pneumothoraces are identified. IMPRESSION: Improved infiltrate in the right lower lobe with a persistent 7 cm. ovoid opacity present. Follow up chest xrays should be considered in this patient to document complete resolution of the opacity. New linear atelectasis in the left lung base.
[2018-12-05] MEDS: Pantoprazole 40 MG TABCR PO (06:47)
--- NOTE | 2018-12-05 07:27 | DI.VRAD_ITS ---
EXAM: XR Chest, 1 View EXAM DATE/TIME: 12/05/2018 12:00 AM CLINICAL HISTORY: 63 years old, male; Condition or disease; Other: F/u pneumonia TECHNIQUE: XR of the chest, 1 view. COMPARISON: CR XR CHEST 2V PA LATERAL 12/01/2018 9:40 AM FINDINGS: Lungs: There is improved aeration of the right lung base with residual 7 x 4.3 cm area of consolidation in this region. Linear atelectasis at left lung base. Pleural space: Unremarkable. No pleural effusion. No pneumothorax. Heart/Mediastinum: Atherosclerotic disease. Bones/joints: Unremarkable. Other findings: Hyperaeration. IMPRESSION: Improved aeration of the right base with persistent 7 centimeter region of consolidation. Suggest continued surveillance until resolved. Hyperaeration suggestive of COPD. New linear atelectasis at left lung base. Dictated and Authenticated by: Janel Brown MD. Ordering:WILBUR Garcia MD
[2018-12-05 07:28] LABS: Abs Immature Grans 0.79 k/cumm (0.0-0.09); HCT 28.6 % (40.0-50.0); Mean Corp. HGB Concentration 31.5 g/dL (32.0-36.0); Mean Corpuscular Hemoglobin 27.6 pg (27.0-33.0); Mean Corpuscular Volume 87.7 fL (80-95); Mean Platelet Volume 9.3 fL (8.0-11.0); RBC 3.26 m/cumm (4.50-6.00); RBC Distribution Width 14.4 % (11.8-14.1); White Blood Cell Count 19.59 k/cumm (4.4-10.8)
[2018-12-05 07:43] LABS: BUN 15 mg/dL (7-18); C-Reactive Protein 1.36 mg/dL (0.0-0.3); CREATININE 0.74 mg/dL (0.70-1.30); Calcium 8.4 mg/dL (8.5-10.1); Chloride 101 mmol/L (98-107); Glucose 262 mg/dL (70-100); Magnesium 1.9 mg/dL (1.8-2.4); Potassium 3.6 mmol/L (3.5-5.1); Sodium 139 mmol/L (136-145)
[2018-12-05 08:14] LABS: Absolute Lymphocyte Count 1.57 k/cumm (1.2-3.4); Absolute Monocyte Count 1.18 k/cumm (0.11-0.7); Absolute Neutrophil Count 16.26 k/cumm (1.2-6.7)
[2018-12-05 08:15] LABS: Diff Comment Manual Differential
[2018-12-05 08:16] LABS: Burr Cells (echinocyte) 2+; Hypochromasia 1+; Macrocytosis 1+
[2018-12-05 08:17] LABS: Poikilocytes 1+
[2018-12-05 08:18] LABS: Platelet Count 484 x1000/uL (130-400)
[2018-12-05] MEDS: amLODIPine 5 MG TAB 10 MG PO (08:19)
[2018-12-05] MEDS: Lisinopril 5 MG TAB PO (08:19)
[2018-12-05] MEDS: Cyanocobalamin 500 MCG TAB 1000 MCG PO (08:19)
[2018-12-05] MEDS: buPROPion-XL 150 MG TABCR 300 MG PO (08:19)
[2018-12-05] MEDS: guaiFENesin 600 MG TABCR PO (08:19)
[2018-12-05] MEDS: Multivitamin TAB 1 TAB PO (08:19)
[2018-12-05] MEDS: Docusate Sodium 100 MG CAP PO ×2 (08:20→14:10)
[2018-12-05] MEDS: methylPREDNISolone SUCC 125 MG VIAL 60 MG IVP (08:20)
[2018-12-05] MEDS: Folic Acid 1 MG TAB PO (08:20)
[2018-12-05] MEDS: Famotidine 20 MG TAB PO (08:20)
[2018-12-05] MEDS: Insulin Aspart 300 UNITS/3 ML PEN SC ×4 (08:21→16:33)
[2018-12-05 09:05] LABS: Polychromasia Present
[2018-12-05] MEDS: Magnesium Chloride 64 MG TABCR PO (09:31)
[2018-12-05 09:49] LABS: Vancomycin, Trough 20.6 ug/mL (10.0-20.0)
[2018-12-05] MEDS: Budesonide/Formoterol 160/4.5 6 GM 60 PUFF INH IH (10:06)
[2018-12-05] MEDS: Furosemide 20 MG/2 ML VIAL IVP (12:34)
[2018-12-05] MEDS: Insulin Aspart 300 UNITS/3 ML PEN 7 UNITS SC ×2 (12:35→16:34)
[2018-12-05 13:29] LABS: TB Interpretation Indeterminate (NEGAT)
--- NOTE | 2018-12-05 16:39 | PDOC.CMPRO ---
- If Service Date Differs Date of service: 12/05/18 Time of Service: 16:39 Care Management Progress Note S/O:Koko has been accepted at [facility] he will transfer once a bed becomes available. contacted his sister Sarai and spoke with her and Olegario Vo to provide update. Sarai agrees with the transfer and she would like to be contacted when there is a bed confirmation. Koko remains in good spirts he continues on oxygen. His sisters visited him today. A:Koko is a 63 year old male admitted with Pneumonia and rule out TB. P: Koko will be transferred to [facility] once a bed is available r/t cavity lesion, pneumonia and rule out TB. Updates to family and assisted living, please contact both Sarai and Olegario Vo when he is to be transferred.
--- NOTE | 2018-12-05 16:45 | CMPROGNOTE_ITS ---
- If Service Date Differs Date of service: 12/05/18 Time of Service: 16:39 Care Management Progress Note S/O:Koko has been accepted at [facility] he will transfer once a bed becomes available. contacted his sister Sarai and spoke with her and Olegario Vo to provide update. Sarai agrees with the transfer and she would like to be contacted when there is a bed confirmation. Koko remains in good spirts he continues on oxygen. His sisters visited him today. A:Koko is a 63 year old male admitted with Pneumonia and rule out TB. P: Koko will be transferred to [facility] once a bed is available r/t cavity lesion, pneumonia and rule out TB. Updates to family and assisted living, please contact both Sarai and Olegario Vo when he is to be transferred.
--- NOTE | 2018-12-05 18:13 | W.PM.DS.N ---
Date of service: 12/05/18 Time of Service: 18:13 DS: Diagnosis Discharge Diagnosis (1) Cavitary pneumonia: Status: Acute (2) Multiple lung abscesses: Status: Acute (3) Bacteremia: Status: Acute (4) Hemoptysis: Status: Acute (5) Steroid-induced hyperglycemia: Status: Acute (6) Non-insulin dependent type 2 diabetes mellitus: Status: Acute (7) Oropharyngeal dysphagia: Status: Acute (8) Schizo affective schizophrenia: Status: Acute (9) Normocytic anemia: Status: Acute (10) Hypertension: Status: Chronic Discharge Plan Disposition Patient Disposition: [facility] Condition: Stable Discharge Details Reason For Visit: CAVITARY PNEUMONIA, ?SEPTIC EMBOLI/LUNG ABSCESSES Admit Date/Time: 12/01/18 12:27 Admit Provider: Radha Matos Attending Provider: Radha Matos Primary Care Provider: Vinnie Black Hospital Course Hospital Course: Mr Estevez is a 63 year old male with PMHx of NIDDM2, COPD not on oxygen, prior CVA without any residual deficits, as well as Schizophrenia, who presented to [facility] ED on 12/01/18 with complaints of blood-tinged sputum, epistaxis earlier in the day, and generalized weakness. He was mildly hypoxic in the ED, requiring 1L initially. His chest imaging (CXR, CT) revealed multiple pulmonary abscesses/septic emboli as well as cavitary lesions, predominantly in the right lung. He was afebrile. [place] [facility] [place], but no beds were available. Similarly, [facility] was contacted, but there was no bed availability. Dr Stanley of pulmonology did provide recommendations to Dr Aguirre of ER to treat this as an aspiration pneumonia and to monitor for improvement. The patient does have a history of unintentional weight loss of about 20 lbs, as well as night sweats and does live in a prison. He was admitted to [facility] hospitalist service on TB precautions on medical surgical floor. We treated him with vancomycin, zosyn, and flagyl, as well as IV fluids. Blood cultures were obtained on admission; 1 bottle is growing streptococcus spp, speciating to Constellatus pharyngis/intermedius group. A transthoracic echo was negative for vegetations. Sputum for AFB was sent on admission and is pending. Quanterferon gold test was obtained, and the results are intermediate. His regular sputum culture is growing Enterococcus chloachae. Additionally, the patient complained of epigastric pain on this admission; he is on both PPI and H2 phillip and his hemoglobin is negative. His hemoccult is positive, but there has been no travon bleeding. He is on NSAIDs as outpatient (aspirin, celebrex). He may benefit from a GI consult. His hemoglobin has been stable at around 9.0. At this point, though the patient is clinically a little bit better, and there has not been any reported hemoptysis in 3 days, there is a relatively high suspicion for TB and, given his overall picture and absence of pulmonary as well as ID consultants at our facility, it is felt that he could benefit from a transfer to a tertiary care facility with these services available. [facility] [place] any [place] beds. [facility] was again contacted and case discussed with both Dr Tinsley of Pulmonlogy as well as Dr Lipscomb of Internal Medicine. The patient is accepted in transfer to [facility] for further care. The patient and his sister are both in agreement with transfer. The patient's psychiatric condition is under good control, and he is deemed to have capacity to make his medical decisions. He is cooperative and compliant. Additional housekeeping issues are: His magnesium needs to be monitored as he came in to the hospital with magnesium of 1.0. He is on a steroid taper with steroid induced hyperglycemia, and his insulins are being adjusted. We appreciate the assistance of our [facility] colleagues and wish the patient well! Home Meds and New Rx's Prescriptions: New ipratropium-albuterol 0.5 mg-3 mg(2.5 mg base)/3 mL Solution For Nebulization 3 ml UPD Q6H Qty: 0 RF: 0 albuterol sulfate 2.5 mg /3 mL (0.083 %) Solution For Nebulization 2.5 mg UPD Q2H PRN PRNQty: 0 RF: 0 amlodipine 5 mg Tablet 10 mg PO DAILY Qty: 0 RF: 0 famotidine 20 mg Tablet 20 mg PO DAILY Qty: 0 RF: 0 cyanocobalamin (vitamin B-12) [Vitamin B-12] 500 mcg Tablet 1,000 mcg PO DAILY Qty: 0 RF: 0 calcium carbonate 200 mg calcium (500 mg) Tablet,Chewable 500 mg PO TID PRN PRNQty: 0 RF: 0 docusate sodium [Colace] 100 mg Capsule 100 mg PO TID Qty: 0 RF: 0 folic acid 1 mg Tablet 1 mg PO DAILY Qty: 0 RF: 0 lisinopril 5 mg Tablet 5 mg PO DAILY Qty: 0 RF: 0 Novolog Flexpen U-100 Insulin 100 unit/mL Insulin Pen 7 units subcut 0800,1200,1700 Qty: 0 RF: 0 Novolog Flexpen U-100 Insulin 100 unit/mL Insulin Pen subcut AC & HS Qty: 0 RF: 0 Symbicort 160-4.5 mcg/actuation Hfa Aerosol Inhaler 2 puff Inhalation BID Qty: 0 RF: 0 Lantus Solostar U-100 Insulin 100 unit/mL (3 mL) Insulin Pen 25 units subcut HS Qty: 0 RF: 0 magnesium chloride [Mag 64] 64 mg Tablet,Delayed Release (Dr/Ec) 64 mg PO BID Qty: 0 RF: 0 Solu-Medrol (PF) 40 mg/mL Recon Soln 40 mg IVP BID Qty: 0 RF: 0 guaifenesin [Mucinex] 600 mg Tablet Extended Release 12hr 600 mg PO BID Qty: 0 RF: 0 multivitamin [Multiple Vitamins] Tablet 1 tab PO DAILY Qty: 0 RF: 0 metronidazole in NaCl (iso-os) 500 mg/100 mL piggyback 500 mg IV Q6H Qty: 100 RF: 0 tramadol 50 mg Tablet 50 mg PO Q6H PRN PRNQty: 0 RF: 0 piperacillin-tazobactam [Zosyn] 3.375 gram Recon Soln 3.375 g IVPB Q6H Qty: 0 RF: 0 pantoprazole 40 mg Tablet,Delayed Release (Dr/Ec) 40 mg PO BID@0730,1999 Qty: 0 RF: 0 alum-mag hydroxide-simeth [Mag-Al Plus] 200-200-20 mg/5 mL Suspension 30 ml PO Q2H PRN PRNQty: 0 RF: 0 vancomycin 1,000 mg recon soln 1 gm IV Q8H Qty: 1 RF: 0 Continued ziprasidone HCl [Geodon] 80 MG capsule 160 mg PO .QHS RF: 0 ziprasidone HCl [Geodon] 80 MG capsule 80 mg PO DAILY RF: 0 clozapine [Clozaril] 100 MG tablet 200 mg PO DAILY RF: 0 clozapine [Clozaril] 100 MG tablet 325 mg PO .QHS RF: 0 acetaminophen [Mapap Extra Strength] 500 MG tablet 1,000 mg PO .Q8HRS RF: 0 simvastatin 20 MG tablet 20 mg PO .QHS RF: 0 Flovent HFA 120 PUFF HFA aerosol inhaler 2 puff Inhalation BID RF: 0 bupropion HCl [Wellbutrin XL] 300 MG tablet extended release 24 hr 300 mg PO DAILY RF: 0 ProAir RespiClick 90 MCG aerosol powdr breath activated 2 puff Inhalation QID PRNRF: 0 Discontinued celecoxib [Celebrex] 200 MG capsule 200 mg PO DAILY RF: 0 aspirin 325 MG tablet 325 mg PO DAILY RF: 0 metformin 1,000 MG tablet 1,000 mg PO BID RF: 0 omeprazole 20 MG capsule,delayed release(DR/EC) 20 mg PO DAILY RF: 0 pioglitazone [Actos] 30 MG tablet 30 mg PO DAILY RF: 0 Spiriva with HandiHaler 1 PUFF capsule, w/inhalation device 1 puff Inhalation DAILY RF: 0 Incruse Ellipta 1 PUFF blister with device 1 puff Inhalation DAILY RF: 0 Discharge Instructions Activity:: Activity as Tolerated Equipment/Supplies:: 2.5 L Diet:: carb counting low sodium Discharge Orders Discharge Orders: Discharge Order (Routine); Ordered 12/05/18 Ordered By: Radha Matos Exam Narrative Exam Narrative: General: Well nourished, anxious male, sitting in a chair, looks better HEENT: EOMI, MMM Heart: RRR, no m/r/g Lungs: quiet rhonchi B GI: abdomen is soft, nontender, nondistended Extremities: No edema BLE's, no c/c BLE's Const General: cooperative and no acute distress HENMT Head: normal to inspection Teeth and gingiva: poor dentition Eyes General: appearance normal, both eyes and all related structures Neck Neck: normal visual inspection Lymphatic: no lymphadenopathy noted and no lymphedema noted Chest Chest: normal inspection of the chest Resp Effort & Inspection: normal respiratory effort and able to speak in complete sentences Auscultation: rhonchi Cardio Jugular venous pressure: no JVD Rate: regular rate Rhythm: regular rhythm Heart Sounds: S1 normal and S2 normal GI Inspection: normal to inspection Palpation: soft and no hepatosplenomegaly Skin General skin exam: no rashes or lesions noted Neuro General: alert, awake and oriented x3 Psych Speech and Movement: other (speech is hard to understand, poor dentition) DS: Data Vitals/I&O Vitals and I&O: Vital Signs Temperature 36.8 C 12/05/18 15:41 Temperature Source Tympanic 12/05/18 15:41 Pulse 88 12/05/18 15:41 Pulse Rhythm Regular 12/05/18 08:29 Pulse 91 H 12/01/18 16:30 Respiratory Rate 20 12/05/18 15:41 Respiratory Effort Non-Labored 12/05/18 08:29 Respiratory Depth Normal 12/05/18 08:29 Respiratory Pattern Normal 12/05/18 08:29 Blood Pressure 144/78 H 12/05/18 15:41 Blood Pressure Mean 88 12/01/18 16:16 Pulse Oximetry 94 L 12/05/18 15:41 Oxygen Delivery Method Nasal Cannula 12/05/18 15:41 Oxygen Flow Rate 2.5 12/05/18 15:41 Pain Level 2 12/04/18 17:39 Comment 12/02/18 15:22 Intake & Output 12/04/18 12/05/18 12/05/18 23:59 11:59 23:59 Intake Total 1090 / 2640 880 / 1470 590 / 1470 Output Total 2100 / 3800 1650 / 3475 1825 / 3475 Balance -1010 / -1160 -770 / -2004 -1235 / -2004 Intake: IV 850 / 2400 640 / 890 250 / 890 Oral 240 / 240 240 / 580 340 / 580 Output: Urine 2100 / 3800 1650 / 3475 1825 / 3475 Other: Urine Color Yellow Yellow Straw Urine Appearance Clear Clear Clear Urine Odor Normal Comment Two voids in urinal. Stool Occult Blood Positive Stool Size Moderate Stool Characteristics Formed Black Voiding Methods Urinal Urinal Urinal Completed studies during hospitalization [Text1]: CXR 12/01/18: Right lower lobe dense infiltrate. Underlying emphysematous and fibrotic changes. CT chest 12/01/18: Multiple areas of air space consolidation with air fluid levels suspicious for pulmonary abscesses or septic emboli. There is significant mucus in the right lower lobe bronchi. US venous 12/01/18: Negative bilateral lower extremity ultrasound. Echo 12/02/18: : There are no typical features of vegetative endocarditis. Summary: 1. Left ventricle: The cavity size was normal. Wall thickness was normal. Systolic function was normal. The estimated ejection fraction was 60-65%. Wall motion was normal; there were no regional wall motion abnormalities. 2. Right ventricle: The cavity size was normal. Wall thickness was normal. Systolic function was normal. 3. Pulmonary arteries: Pulmonary systolic pressure was increased, in the range of 35mm Hg to 40mm Hg. CXR 12/05/18: Improved infiltrate in the right lower lobe with a persistent 7 cm. ovoid opacity present. Follow up chest xrays should be considered in this patient to document complete resolution of the opacity. New linear atelectasis in the left lung base. Pending studies at discharge: AFB sputum pending Repeat blood cultures from 12/05/18 are pending Labs on day of discharge: Labs from last 24 hours 12/05/18 12/05/18 12/05/18 09:15 06:50 06:50 WBC 19.59 H RBC 3.26 L Hgb 9.0 L Hct 28.6 L MCV 87.7 MCH 27.6 MCHC 31.5 L RDW 14.4 H Plt Count 484 H MPV 9.3 Immature Gran % See Differential Neutrophils % 83.0 Lymphocytes % 8.0 Monocytes % 6.0 Eosinophils % 0.0 Basophils % 0.0 Myelocytes % 3.0 Absolute Neutrophils 16.26 H Absolute Lymphocytes 1.57 Absolute Monocytes 1.18 H Absolute Eosinophils 0.00 Absolute Basophils 0.00 Differential Comment Manual differential RBC Morphology See below Polychromasia Present Hypochromasia 1+ Poikilocytosis 1+ Macrocytosis 1+ [place] Cells 2+ Sodium 139 Potassium 3.6 Chloride 101 Carbon Dioxide 34.0 H Anion Gap 4.0 BUN 15 Creatinine 0.74 Estimated GFR/1.73 m2 >= 60.00 Glucose 262 H Calcium 8.4 L Magnesium 1.9 C-Reactive Protein 1.36 H Vancomycin Trough 20.6 H* TB Test Antigen - Nil TB Test (QFT) Interp 12/01/18 18:00 WBC RBC Hgb Hct MCV MCH MCHC RDW Plt Count MPV Immature Gran % Neutrophils % Lymphocytes % Monocytes % Eosinophils % Basophils % Myelocytes % Absolute Neutrophils Absolute Lymphocytes Absolute Monocytes Absolute Eosinophils Absolute Basophils Differential Comment RBC Morphology Polychromasia Hypochromasia Poikilocytosis Macrocytosis Ewa Cells Sodium Potassium Chloride Carbon Dioxide Anion Gap BUN Creatinine Estimated GFR/1.73 m2 Glucose Calcium Magnesium C-Reactive Protein Vancomycin Trough TB Test Antigen - Nil Not Applicable TB Test (QFT) Interp Indeterminate A 12/05/18 15:20 Blood Blood Culture - Pending 12/05/18 15:12 Blood Blood Culture - Pending Preliminary micro results at discharge 12/05/18 15:20 Blood Culture - Pending Blood 12/05/18 15:12 Blood Culture - Pending Blood 12/01/18 11:31 Blood Culture - Preliminary Blood NO GROWTH 96 HOURS 12/01/18 11:31 Blood Culture - Preliminary Blood Streptococcus species PFSH Medical History H/O schizophrenia (Acute) H/O: CVA (cerebrovascular accident) (Acute) COPD (chronic obstructive pulmonary disease) (Chronic) Diabetes mellitus (Chronic) Social History Smoking and Tabacco status: Former Tobacco Use
--- NOTE | 2018-12-05 18:30 | DSE_ITS ---
Date of service: 12/05/18 Time of Service: 18:13 DS: Diagnosis Discharge Diagnosis (1) Cavitary pneumonia: Status: Acute (2) Multiple lung abscesses: Status: Acute (3) Bacteremia: Status: Acute (4) Hemoptysis: Status: Acute (5) Steroid-induced hyperglycemia: Status: Acute (6) Non-insulin dependent type 2 diabetes mellitus: Status: Acute (7) Oropharyngeal dysphagia: Status: Acute (8) Schizo affective schizophrenia: Status: Acute (9) Normocytic anemia: Status: Acute (10) Hypertension: Status: Chronic Discharge Plan Disposition [facility] Disposition: [facility] Condition: Stable Discharge Details Reason For Visit: CAVITARY PNEUMONIA, ?SEPTIC EMBOLI/LUNG ABSCESSES Admit Date/Time: 12/01/18 12:27 Admit Provider: Radha Matos Attending Provider: Radha Matos Primary Care Provider: Vinnie Black Hospital Course Hospital Course: Mr Estevez is a 63 year old male with PMHx of NIDDM2, COPD not on oxygen, prior CVA without any residual deficits, as well as Schizophrenia, who presented to [facility] ED on 12/01/18 with complaints of blood-tinged sputum, epistaxis earlier in the day, and generalized weakness. He was mildly hypoxic in the ED, requiring 1L initially. His chest imaging (CXR, CT) revealed multiple pulmonary abscesses/septic emboli as well as cavitary lesions, predominantly in the right lung. He was afebrile. A transfer to [facility] was attempted, but no beds were available. Similarly, [facility] was contacted, but there was no bed availability. Dr Stanley of pulmonology did provide recommendations to Dr Aguirre of ER to treat this as an aspiration pneumonia and to monitor for improvement. The patient does have a history of unintentional weight loss of about 20 lbs, as well as night sweats and does live in a custodial. He was admitted to [facility] hospitalist service on TB precautions on medical surgical floor. We treated him with vancomycin, zosyn, and flagyl, as well as IV fluids. Blood cultures were obtained on admission; 1 bottle is growing streptococcus spp, speciating to Constellatus pharyngis/intermedius group. A transthoracic echo was negative for vegetations. Sputum for AFB was sent on admission and is pending. Quanterferon gold test was obtained, and the results are intermediate. His regular sputum culture is growing Enterococcus chloachae. Additionally, the patient complained of epigastric pain on this admission; he is on both PPI and H2 phillip and his hemoglobin is negative. His hemoccult is positive, but there has been no travon bleeding. He is on NSAIDs as outpatient (aspirin, celebrex). He may benefit from a GI consult. His hemoglobin has been stable at around 9.0. At this point, though the patient is clinically a little bit better, and there has not been any reported hemoptysis in 3 days, there is a relatively high suspicion for TB and, given his overall picture and absence of pulmonary as well as ID consultants at our facility, it is felt that he could benefit from a transfer to a tertiary care facility with these services available. [facility] did not have any available beds. [facility] was again contacted and case discussed with both Dr Tinsley of Pulmonlogy as well as Dr Lipscomb of Internal Medicine. The patient is accepted in transfer to [facility] for further care. The patient and his sister are both in agreement with transfer. The patient's psychiatric condition is under good control, and he is deemed to have capacity to make his medical decisions. He is cooperative and compliant. Additional housekeeping issues are: His magnesium needs to be monitored as he came in to the hospital with magnesium of 1.0. He is on a steroid taper with steroid induced hyperglycemia, and his insulins are being adjusted. We appreciate the assistance of our [facility] colleagues and wish the patient well! Home Meds and New Rx's Prescriptions: New ipratropium-albuterol 0.5 mg-3 mg(2.5 mg base)/3 mL Solution For Nebulization 3 ml UPD Q6H Qty: 0 RF: 0 albuterol sulfate 2.5 mg /3 mL (0.083 %) Solution For Nebulization 2.5 mg UPD Q2H PRN PRNQty: 0 RF: 0 amlodipine 5 mg Tablet 10 mg PO DAILY Qty: 0 RF: 0 famotidine 20 mg Tablet 20 mg PO DAILY Qty: 0 RF: 0 cyanocobalamin (vitamin B-12) [Vitamin B-12] 500 mcg Tablet 1,000 mcg PO DAILY Qty: 0 RF: 0 calcium carbonate 200 mg calcium (500 mg) Tablet,Chewable 500 mg PO TID PRN PRNQty: 0 RF: 0 docusate sodium [Colace] 100 mg Capsule 100 mg PO TID Qty: 0 RF: 0 folic acid 1 mg Tablet 1 mg PO DAILY Qty: 0 RF: 0 lisinopril 5 mg Tablet 5 mg PO DAILY Qty: 0 RF: 0 Novolog Flexpen U-100 Insulin 100 unit/mL Insulin Pen 7 units subcut 0800,1200,1700 Qty: 0 RF: 0 Novolog Flexpen U-100 Insulin 100 unit/mL Insulin Pen subcut AC & HS Qty: 0 RF: 0 Symbicort 160-4.5 mcg/actuation Hfa Aerosol Inhaler 2 puff Inhalation BID Qty: 0 RF: 0 Lantus Solostar U-100 Insulin 100 unit/mL (3 mL) Insulin Pen 25 units subcut HS Qty: 0 RF: 0 magnesium chloride [Mag 64] 64 mg Tablet,Delayed Release (Dr/Ec) 64 mg PO BID Qty: 0 RF: 0 Solu-Medrol (PF) 40 mg/mL Recon Soln 40 mg IVP BID Qty: 0 RF: 0 guaifenesin [Mucinex] 600 mg Tablet Extended Release 12hr 600 mg PO BID Qty: 0 RF: 0 multivitamin [Multiple Vitamins] Tablet 1 tab PO DAILY Qty: 0 RF: 0 metronidazole in NaCl (iso-os) 500 mg/100 mL piggyback 500 mg IV Q6H Qty: 100 RF: 0 tramadol 50 mg Tablet 50 mg PO Q6H PRN PRNQty: 0 RF: 0 piperacillin-tazobactam [Zosyn] 3.375 gram Recon Soln 3.375 g IVPB Q6H Qty: 0 RF: 0 pantoprazole 40 mg Tablet,Delayed Release (Dr/Ec) 40 mg PO BID@0730,1999 Qty: 0 RF: 0 alum-mag hydroxide-simeth [Mag-Al Plus] 200-200-20 mg/5 mL Suspension 30 ml PO Q2H PRN PRNQty: 0 RF: 0 vancomycin 1,000 mg recon soln 1 gm IV Q8H Qty: 1 RF: 0 Continued ziprasidone HCl [Geodon] 80 MG capsule 160 mg PO .QHS RF: 0 ziprasidone HCl [Geodon] 80 MG capsule 80 mg PO DAILY RF: 0 clozapine [Clozaril] 100 MG tablet 200 mg PO DAILY RF: 0 clozapine [Clozaril] 100 MG tablet 325 mg PO .QHS RF: 0 acetaminophen [Mapap Extra Strength] 500 MG tablet 1,000 mg PO .Q8HRS RF: 0 simvastatin 20 MG tablet 20 mg PO .QHS RF: 0 Flovent HFA 120 PUFF HFA aerosol inhaler 2 puff Inhalation BID RF: 0 bupropion HCl [Wellbutrin XL] 300 MG tablet extended release 24 hr 300 mg PO DAILY RF: 0 ProAir RespiClick 90 MCG aerosol powdr breath activated 2 puff Inhalation QID PRNRF: 0 Discontinued celecoxib [Celebrex] 200 MG capsule 200 mg PO DAILY RF: 0 aspirin 325 MG tablet 325 mg PO DAILY RF: 0 metformin 1,000 MG tablet 1,000 mg PO BID RF: 0 omeprazole 20 MG capsule,delayed release(DR/EC) 20 mg PO DAILY RF: 0 pioglitazone [Actos] 30 MG tablet 30 mg PO DAILY RF: 0 Spiriva with HandiHaler 1 PUFF capsule, w/inhalation device 1 puff Inhalation DAILY RF: 0 Incruse Ellipta 1 PUFF blister with device 1 puff Inhalation DAILY RF: 0 Discharge Instructions Activity:: Activity as Tolerated Equipment/Supplies:: 2.5 L Diet:: carb counting low sodium Discharge Orders Discharge Orders: Discharge Order (Routine); Ordered 12/05/18 Ordered By: Radha Matos Exam Narrative Exam Narrative: General: Well nourished, anxious male, sitting in a chair, looks better HEENT: EOMI, MMM Heart: RRR, no m/r/g Lungs: quiet rhonchi B GI: abdomen is soft, nontender, nondistended Extremities: No edema BLE's, no c/c BLE's Const General: cooperative and no acute distress HENMT Head: normal to inspection Teeth and gingiva: poor dentition Eyes General: appearance normal, both eyes and all related structures Neck Neck: normal visual inspection Lymphatic: no lymphadenopathy noted and no lymphedema noted Chest Chest: normal inspection of the chest Resp Effort & Inspection: normal respiratory effort and able to speak in complete sentences Auscultation: rhonchi Cardio Jugular venous pressure: no JVD Rate: regular rate Rhythm: regular rhythm Heart Sounds: S1 normal and S2 normal GI Inspection: normal to inspection Palpation: soft and no hepatosplenomegaly Skin General skin exam: no rashes or lesions noted Neuro General: alert, awake and oriented x3 Psych Speech and Movement: other (speech is hard to understand, poor dentition) DS: Data Vitals/I&O Vitals and I&O: Vital Signs Temperature 36.8 C 12/05/18 15:41 Temperature Source Tympanic 12/05/18 15:41 Pulse 88 12/05/18 15:41 Pulse Rhythm Regular 12/05/18 08:29 Pulse 91 H 12/01/18 16:30 Respiratory Rate 20 12/05/18 15:41 Respiratory Effort Non-Labored 12/05/18 08:29 Respiratory Depth Normal 12/05/18 08:29 Respiratory Pattern Normal 12/05/18 08:29 Blood Pressure 144/78 H 12/05/18 15:41 Blood Pressure Mean 88 12/01/18 16:16 Pulse Oximetry 94 L 12/05/18 15:41 Oxygen Delivery Method Nasal Cannula 12/05/18 15:41 Oxygen Flow Rate 2.5 12/05/18 15:41 Pain Level 2 12/04/18 17:39 Comment 12/02/18 15:22 Intake & Output 12/04/18 12/05/18 12/05/18 23:59 11:59 23:59 Intake Total 1090 / 2640 880 / 1470 590 / 1470 Output Total 2100 / 3800 1650 / 3475 1825 / 3475 Balance -1010 / -1160 -770 / -2004 -1235 / -2004 Intake: IV 850 / 2400 640 / 890 250 / 890 Oral 240 / 240 240 / 580 340 / 580 Output: Urine 2100 / 3800 1650 / 3475 1825 / 3475 Other: Urine Color Yellow Yellow Straw Urine Appearance Clear Clear Clear Urine Odor Normal Comment Two voids in urinal. Stool Occult Blood Positive Stool Size Moderate Stool Characteristics Formed Black Voiding Methods Urinal Urinal Urinal Completed studies during hospitalization [Text1]: CXR 12/01/18: Right lower lobe dense infiltrate. Underlying emphysematous and fibrotic changes. CT chest 12/01/18: Multiple areas of air space consolidation with air fluid levels suspicious for pulmonary abscesses or septic emboli. There is significant mucus in the right lower lobe bronchi. US venous 12/01/18: Negative bilateral lower extremity ultrasound. Echo 12/02/18: : There are no typical features of vegetative endocarditis. Summary: 1. Left ventricle: The cavity size was normal. Wall thickness was normal. Systolic function was normal. The estimated ejection fraction was 60-65%. Wall motion was normal; there were no regional wall motion abnormalities. 2. Right ventricle: The cavity size was normal. Wall thickness was normal. Systolic function was normal. 3. Pulmonary arteries: Pulmonary systolic pressure was increased, in the range of 35mm Hg to 40mm Hg. CXR 12/05/18: Improved infiltrate in the right lower lobe with a persistent 7 cm. ovoid opacity present. Follow up chest xrays should be considered in this patient to document complete resolution of the opacity. New linear atelectasis in the left lung base. Pending studies at discharge: AFB sputum pending Repeat blood cultures from 12/05/18 are pending Labs on day of discharge: Labs from last 24 hours 12/05/18 12/05/18 12/05/18 09:15 06:50 06:50 WBC 19.59 H RBC 3.26 L Hgb 9.0 L Hct 28.6 L MCV 87.7 MCH 27.6 MCHC 31.5 L RDW 14.4 H Plt Count 484 H MPV 9.3 Immature Gran % See Differential Neutrophils % 83.0 Lymphocytes % 8.0 Monocytes % 6.0 Eosinophils % 0.0 Basophils % 0.0 Myelocytes % 3.0 Absolute Neutrophils 16.26 H Absolute Lymphocytes 1.57 Absolute Monocytes 1.18 H Absolute Eosinophils 0.00 Absolute Basophils 0.00 Differential Comment Manual differential RBC Morphology See below Polychromasia Present Hypochromasia 1+ Poikilocytosis 1+ Macrocytosis 1+ [place] Cells 2+ Sodium 139 Potassium 3.6 Chloride 101 Carbon Dioxide 34.0 H Anion Gap 4.0 BUN 15 Creatinine 0.74 Estimated GFR/1.73 m2 >= 60.00 Glucose 262 H Calcium 8.4 L Magnesium 1.9 C-Reactive Protein 1.36 H Vancomycin Trough 20.6 H* TB Test Antigen - Nil TB Test (QFT) Interp 12/01/18 18:00 WBC RBC Hgb Hct MCV MCH MCHC RDW Plt Count MPV Immature Gran % Neutrophils % Lymphocytes % Monocytes % Eosinophils % Basophils % Myelocytes % Absolute Neutrophils Absolute Lymphocytes Absolute Monocytes Absolute Eosinophils Absolute Basophils Differential Comment RBC Morphology Polychromasia Hypochromasia Poikilocytosis Macrocytosis [place]wa Cells Sodium Potassium Chloride Carbon Dioxide Anion Gap BUN Creatinine Estimated GFR/1.73 m2 Glucose Calcium Magnesium C-Reactive Protein Vancomycin Trough TB Test Antigen - Nil Not Applicable TB Test (QFT) Interp Indeterminate A 12/05/18 15:20 Blood Blood Culture - Pending 12/05/18 15:12 Blood Blood Culture - Pending Preliminary micro results at discharge 12/05/18 15:20 Blood Culture - Pending Blood 12/05/18 15:12 Blood Culture - Pending Blood 12/01/18 11:31 Blood Culture - Preliminary Blood NO GROWTH 96 HOURS 12/01/18 11:31 Blood Culture - Preliminary Blood Streptococcus species PFSH Medical History H/O schizophrenia (Acute) H/O: CVA (cerebrovascular accident) (Acute) COPD (chronic obstructive pulmonary disease) (Chronic) Diabetes mellitus (Chronic) Social History Smoking and Tabacco status: Former Tobacco Use
--- NOTE | 2018-12-05 18:54 | NUR.NOTE ---
Nursing Note: Pt will be transporting to [facility] via EMS at approx. 1900. Pt's medications and wallet, and paperwork will be given to director market research at time of transfer. Report called to [facility] ([place] at 1854. VSS stable at time of transport; pt sats 91% on 2.5L.
== END 2018-12-05 19:10 | DRG 177 ==
LOC: ER 16:00 → MS 17:05
PROVIDERS: Nurse Practitioner Family; Admitting Provider Internal Medicine; Emergency Provider Emergency Medicine; PCP Specialist/Technologist Athletic Trainer; Visit Provider Internal Medicine
DX: J15.6 Pneumonia due to other Gram-negative bacteria (principal); J85.1 Abscess of lung with pneumonia; I26.90 Septic pulmonary embolism without acute cor pulmonale; R78.81 Bacteremia; R04.2 Hemoptysis; F20.89 Other schizophrenia; J44.0 Chronic obstructive pulmonary disease with (acute) lower respiratory infection; I76 Septic arterial embolism; Z16.19 Resistance to other specified beta lactam antibiotics; R09.02 Hypoxemia; J98.4 Other disorders of lung; B95.2 Enterococcus as the cause of diseases classified elsewhere; B95.61 Methicillin susceptible Staphylococcus aureus infection as the cause of diseases classified elsewhere; B95.5 Unspecified streptococcus as the cause of diseases classified elsewhere; Z16.29 Resistance to other single specified antibiotic; Z16.39 Resistance to other specified antimicrobial drug; E11.65 Type 2 diabetes mellitus with hyperglycemia; T38.0X5A Adverse effect of glucocorticoids and synthetic analogues, initial encounter; E11.9 Type 2 diabetes mellitus without complications; I10 Essential (primary) hypertension; J44.9 Chronic obstructive pulmonary disease, unspecified; Z11.1 Encounter for screening for respiratory tuberculosis; Z87.891 Personal history of nicotine dependence; R13.12 Dysphagia, oropharyngeal phase; R63.4 Abnormal weight loss; Z68.20 Body mass index [BMI] 20.0-20.9, adult; D64.9 Anemia, unspecified
CPT/HCPCS: 36410; 36415; 80048; 80053; 82550; 87040; 87077; 87116; 87206; 92610; 93005; 93306; 94640; 96365; 96366; 96368; 96375; 99232; 99239; 99285; G8996; 71045; 71046; 71260; 80202; 82607; 82728; 82746; 83540; 83550; 83735; 84484; 85025; 86140; 86480; 87070; 87186; 87205; 93010; 93970; 99223; J1941; J2543; J2930; J3370; J3480; J3490; J7613; J7620

== ENCOUNTER 2018-12-15 19:08 | Inpatient (IN) | payer MEDICARE, MEDICAID, SELFPAY ==
[2018-12-15 19:10] VITALS: BP 144/88; PULSE 89; RESP 18; TEMP 35.8; O2SAT 98
[2018-12-15 19:35] VITALS: PULSE 89; RESP 17; TEMP 35.8; O2SAT 98
--- NOTE | 2018-12-15 20:59 | HPE_ITS ---
Date of service: 12/15/18 Time of Service: 20:59 Assessment and Plan (1) Cavitary pneumonia: Current visit: Yes Status: Acute continue Cefepime 2 gm IV Q12h, vancomycin 1.5 gm IV q12 hr, Flagyl 500 mg po q8hr through 01/16/2019. monitor vancomycin trough levels biweekly, CBC, CMP weekly; repeat CT chest the week of 01/12/2019. Follow up with ID consultation upon discharge. Scheduled ID follow up is for 01/27/2019 at 13:15 with Foreign De La Torre at [facility] (2) Non-insulin dependent type 2 diabetes mellitus: Current visit: Yes Status: Acute continue home oral diabetic meds including metformin and Actos and continue supplementing this with insulin (3) Hypertension: Current visit: Yes Status: Chronic not currently receiving any medication for this condition. will monitor blood pressures and consider addition of APOLONIA-I or ARB. (4) Schizo affective schizophrenia: Current visit: Yes Status: Acute continue his home clozaril dose, he was also treated with Geodon as well. check baseline EKG to evaluate QTC interval (5) Normocytic anemia: Current visit: No Status: Acute monitor weekly CBC. check iron studies, B12, folate levels. continue GI protection w/ PPI History of Present Illness Chief Complaint: antibiotic completion for pulmonary abscess Narrative: 63-year-old male resident of a shelter in [facility] who was recently admitted at [facility] from December 01 - December 06, 2018 with hemoptysis and hypoxemia and found to have multiple cavitary lung lesions on CT scan concerning for lung abscesses versus tuberculosis versus lung cancer was treated initially with vancomycin, Zosyn, Flagyl will be workup for pneumonia and possible TB and sepsis. During that hospitalization sputum AFB was obtained and a blood test for Gold QuantiFERON test was obtained. QuantiFERON test was read as indeterminate. At the time of his transfer to the [facility] his sputum AFB was pending. Blood cultures at that time came back 1 out of 4 positive for Streptococcus species which was subsequently typed as strep constellatus pharyngis/intermedius and also grew Staph MRSA. Sputum grew Enterococcus cloacae. TTE did not show any vegetations on his heart valves. During that admission he was noted to have heme positive stools and had an anemia Hb 9 gm. He was treated w/ a PPI and carafate but had no gross melena or hematochezia. At the time of transfer his white count had diminished from a peak of 32,000 down to 19,000. He had hemoptysis while hospitalized at [facility]. At the time of transfer he had not had hemoptysis in 3 days. And although he was clinically improving it was felt that he needed a higher level of care with consultation with infectious disease and pulmonary services and therefore was transferred to [facility]. He was subsequently treated at [facility] from 12/05-11/17/2018. While at [facility] he had a PICC line placed on December 10, 2018 with no complications. Pulmonary service and infectious disease services were consulted. Infectious disease recommended ruling out tuberculosis with 3- AFB smears and tuberculosis for PCR testing. Previous discharge summary these were all performed and were negative. He was initially continued on cefepime and Flagyl without vancomycin. Pulmonary service indicated that there was improvement on his chest x-ray but did not believe bronchoscopy was unnecessary unless follow-up imaging revealed a non-resolving mass. Blood cultures from [facility] were reported as growing strep species well with enterococcus and MRSA patient's antibiotics were transitioned to vancomycin plus cefepime plus Flagyl. His dose include cefepime 2 g IV every 12 hours, vancomycin 1500 mg IV every 12 hours, Flagyl 500 mg IV every 8 hours. He remained stable and had no further hemoptysis while treated at [facility]. Hospitalist service under the care of Dr. Martina Szymanski felt that the patient be transferred back to an [facility] for compl etion of his antibiotics. Recommendations from [facility] hospitalist service and infectious disease service recommended continued cefepime 2 g every 12 hours, vancomycin 1500 mg every 12 hours along with Flagyl 500 mg orally every 8 hours. Antibiotics should be continued through January 16, 2019 and that weekly CBC and CMP should be monitored throughout his antibiotic course. Repeat CT scan of the chest should be performed the week of January 12, 2019. Patient should follow-up with the infectious disease service at [facility] January 27, 2019 at 1:15 PM where he has a follow-up with Dr. Ethan De La Torre. Review of Systems Constitutional Denies anorexia, Denies chills, Denies fever(s) and Denies night sweats Cardiovascular Reports system reviewed and no additional complaints, except as docu and Denies dyspnea on exertion Respiratory Denies cough, Denies hemoptysis, Denies excessive phlegm production and Denies dyspnea on exertion Gastrointestinal Reports system reviewed and no additional complaints, except as docu Genitourinary Reports system reviewed and no additional complaints, except as docu Musculoskeletal Reports system reviewed and no additional complaints, except as docu Integumentary/Breasts Reports system reviewed and no additional complaints, except as docu Neurologic Reports system reviewed and no additional complaints, except as docu Psychiatric Reports system reviewed and no additional complaints, except as docu Endocrine Reports system reviewed and no additional complaints, except as docu Hematologic/Lymphatic Reports system reviewed and no additional complaints, except as docu PFSH Medical History H/O schizophrenia (Acute) H/O: CVA (cerebrovascular accident) (Acute) COPD (chronic obstructive pulmonary disease) (Chronic) Diabetes mellitus (Chronic) Family History Mother No problems noted. Social History Smoking/Tobacco Use Status: Former Tobacco Use Tobacco: How many years used: 43 Alcohol Intake: former Drug use: Occasionally Substance use type: marijuana Do you feel safe at home: Yes Do you feel safe in your relationship?: Yes Meds Home Medications Medication Instructions Recorded Confirmed Type Flovent HFA 2 puff INHALATION BID 06/18/17 12/01/18 History ProAir RespiClick 2 puff INHALATION QID PRN 06/18/17 12/01/18 History acetaminophen [Mapap Extra 1,000 mg PO .Q8HRS 06/18/17 12/01/18 History Strength] bupropion HCl [Wellbutrin XL] 300 mg PO DAILY 06/18/17 12/01/18 History clozapine [Clozaril] 200 mg PO DAILY 06/18/17 12/01/18 History clozapine [Clozaril] 325 mg PO .QHS 06/18/17 12/01/18 History simvastatin 20 mg PO .QHS 06/18/17 12/01/18 History ziprasidone HCl [Geodon] 80 mg PO DAILY 06/18/17 12/01/18 History ziprasidone HCl [Geodon] 160 mg PO .QHS 06/18/17 12/01/18 History albuterol sulfate 2.5 mg UPD Q2H PRN PRN #0 ml 12/05/18 Rx alum-mag hydroxide-simeth [Mag-Al 30 ml PO Q2H PRN PRN #0 ml 12/05/18 Rx Plus] amlodipine 10 mg PO DAILY #0 tab 12/05/18 Rx budesonide-formoterol [Symbicort] 2 puff INHALATION BID #0 g 12/05/18 Rx calcium carbonate 500 mg PO TID PRN PRN #0 tab 12/05/18 Rx cyanocobalamin (vitamin B-12) 1,000 mcg PO DAILY #0 tab 12/05/18 Rx [Vitamin B-12] docusate sodium [Colace] 100 mg PO TID #0 cap 12/05/18 Rx famotidine 20 mg PO DAILY #0 tab 12/05/18 Rx folic acid 1 mg PO DAILY #0 tab 12/05/18 Rx guaifenesin [Mucinex] 600 mg PO BID #0 tab 12/05/18 Rx insulin aspart U-100 [Novolog 0 units SUBCUT AC & HS #0 ml 12/05/18 Rx Flexpen U-100 Insulin] insulin aspart U-100 [Novolog 7 units SUBCUT 0800,1200,1700 #0 ml 12/05/18 Rx Flexpen U-100 Insulin] insulin glargine [Lantus Solostar 25 units SUBCUT HS #0 ml 12/05/18 Rx U-100 Insulin] ipratropium-albuterol 3 ml UPD Q6H #0 ml 12/05/18 Rx lisinopril 5 mg PO DAILY #0 tab 12/05/18 Rx magnesium chloride [Mag 64] 64 mg PO BID #0 tab 12/05/18 Rx methylprednisolone sod suc(PF) 40 mg IVP BID #0 ea 12/05/18 Rx [Solu-Medrol (PF)] metronidazole in NaCl (iso-os) 500 mg IV Q6H #100 ml 12/05/18 Rx multivitamin [Multiple Vitamins] 1 tab PO DAILY #0 tab 12/05/18 Rx pantoprazole 40 mg PO BID@0730,2000 #0 tab 12/05/18 Rx piperacillin-tazobactam [Zosyn] 3.375 g IVPB Q6H #0 ea 12/05/18 Rx tramadol 50 mg PO Q6H PRN PRN #0 tab 12/05/18 Rx vancomycin 1 gm IV Q8H #1 each 12/05/18 Rx Allergies Allergy/AdvReac Type Severity Reaction Status Date / Time No Known Allergies Allergy Unverified 06/18/17 15:49 Exam Const General: cooperative and no acute distress Nutritional Appearance: average body habitus Orientation: alert, awake and oriented x3 HENMT Head: normal to inspection, no palpable skull fracture, normocephalic and atraumatic Ears: hearing grossly normal bilaterally, external ears normal and TM's normal bilaterally General nose exam: external nose normal and nares normal Face and sinus: normal facial exam, sinuses nontender and face symmetric Mouth: oral mucosae normal Throat: posterior oropharynx normal Eyes General: appearance normal, both eyes and all related structures Alignment and Position: alignment normal Periorbital: periorbital findings normal Eyelids: eyelids normal Conjunctivae: conjunctivae normal Sclera: sclerae normal Cornea: corneas normal Pupils: PERRL EOM: EOM intact bilaterally Neck Neck: normal visual inspection, full ROM, no lymphadenopathy, trachea midline and supple Thyroid: thyroid normal Carotids: normal carotid upstroke Lymphatic: no lymphadenopathy noted Chest Chest: normal inspection of the chest and normal palpation of entire chest wall Resp Effort & Inspection: normal respiratory effort and able to speak in complete sentences Auscultation: bronchovesicular breath sounds on the right (base) and no wheezes Cardio Jugular venous pressure: no JVD Palpation: normal PMI Rate: regular rate Rhythm: regular rhythm Heart Sounds: S1 normal, S2 normal and normal, physiologic split S2 Pulses: normal peripheral pulses GI Inspection: normal to inspection Palpation: soft, no hepatosplenomegaly and nontender Percussion: normal to percussion Auscultation: normal bowel sounds Back/Spine/Pelvis Back: no CVA tenderness Cervical Spine: normal cervical lordosis Thoracic/Lumbar Spine: thoracic and lumbar spine normal to inspection Skin General skin exam: ecchymosis (right arm) Lesions: no lesions Neuro General: alert, awake, oriented x3, moves all extremities and no focal motor deficits Cognition: normal cognition Speech: speech normal Motor: muscle tone normal throughout, strength 5/5 throughout and no movement abnormalities noted Sensory Exam: no sensory deficits noted Extrem General: full ROM, normal capillary refill, no clubbing, cyanosis or edema, no pedal edema and no calf tenderness Right lower extremity: knee Details: abnormal to inspection Details: asymmetryic (lateral cyst; OA deformity of knee) Psych Appearance: grossly normal Mental Status: mental status grossly normal Speech and Movement: speech and movement normal Mood: congruent mood Affect: normal affect Attitude: cooperative Thought Process: normal Thought Content: normal Insight: insight good Judgment: judgment good Results Labs : 12/16/18 06:46 12/16/18 06:46 Last Vital Signs Temp 35.8 C L 12/15/18 19:35 Pulse 89 12/15/18 19:35 Resp 17 12/15/18 19:35 BP 144/88 H 12/15/18 19:10 Pulse Ox 98 12/15/18 19:35
[2018-12-15] MEDS: Simvastatin 20 MG TAB PO ×2 (23:00→23:20)
[2018-12-15] MEDS: CEFEPIME 2 GM in Normal Saline 100 ML IVPB (23:07)
[2018-12-15] MEDS: metroNIDAZOLE 500 MG TAB PO (23:07)
[2018-12-15] MEDS: metFORMIN 500 MG TAB 1000 MG PO (23:07)
[2018-12-15] MEDS: Normal Saline Flush 10 ML SYR ×2 (23:07→23:08)
[2018-12-15] MEDS: VANCOMYCIN 1,500 MG in Normal Saline 250 ML 166.6666 MG IVPB (23:56)
[2018-12-16 00:11] VITALS: BP 162/76; PULSE 88; RESP 16; TEMP 37; O2SAT 95
--- NOTE | 2018-12-16 03:08 | NUR.NOTE ---
Patient is a direct admit to the unit from [facility]. He was transported via wheelchair. He was not completely sure why he was admitted. On assessment he is conscious, alert, oriented. Denies pain or discomfort, however state he was feeling very hungry, was given a meal at this time. Double lumen picc noted to the right upper arm, but no blood return noted and same flushes sluggishly. Lung sounds clear but diminishes in the bases to the right mid and lower lobe. Patient is no respiratory or abvious painful distress at this time. Active bowel sounds heard, NAD to extremities. patient oriented to the room and made comfortable in bed
[2018-12-16 04:30] VITALS: O2SAT 95
[2018-12-16] MEDS: metroNIDAZOLE 500 MG TAB PO ×3 (06:03→21:36)
[2018-12-16 07:33] LABS: Abs Immature Grans 0.02 k/cumm (0.0-0.09); Absolute Eosinophil Count 0.12 k/cumm (0.0-0.7); Absolute Lymphocyte Count 1.95 k/cumm (1.2-3.4); Absolute Monocyte Count 0.94 k/cumm (0.11-0.7); Absolute Neutrophil Count 5.85 k/cumm (1.2-6.7); Eosinophils % 1.4; HCT 28.5 % (40.0-50.0); HGB 8.8 g/dL (13.5-17.5); Immature Grans % 0.2; Mean Corp. HGB Concentration 30.9 g/dL (32.0-36.0); Mean Corpuscular Hemoglobin 27.2 pg (27.0-33.0); Mean Platelet Volume 10.5 fL (8.0-11.0); Monocytes % 10.6; Neutrophils % 65.8; Platelet Count 289 x1000/uL (130-400); RBC 3.24 m/cumm (4.50-6.00); RBC Distribution Width 16.3 % (11.8-14.1); White Blood Cell Count 8.88 k/cumm (4.4-10.8)
[2018-12-16 07:42] VITALS: BP 174/79; PULSE 91; RESP 30; TEMP 37.2; O2SAT 93
[2018-12-16 07:51] LABS: ALT 18 U/L (12-78); AST 11 U/L (15-37); Albumin 2.6 g/dL (3.4-5.0); Alkaline Phosphatase 91 U/L (46-116); Anion Gap 8.7 mmol/L (3-11); BUN 17 mg/dL (7-18); Bilirubin, Total 0.2 mg/dL (0.2-1.0); CO2 28.3 mmol/L (21.0-32.0); CREATININE 0.75 mg/dL (0.70-1.30); Calcium 8.4 mg/dL (8.5-10.1); Chloride 106 mmol/L (98-107); Glucose 80 mg/dL (70-100); Potassium 3.8 mmol/L (3.5-5.1); Sodium 143 mmol/L (136-145); Total Protein 6.2 g/dL (6.4-8.2)
[2018-12-16 08:13] LABS: Iron 15 ug/dL (50-175); Total Iron Binding Capacity 234 ug/dL (250-450); Transferrin Sat 6 % (20-55)
[2018-12-16 08:42] LABS: Ferritin 42 ng/mL (8-388); Folate 9.5 ng/mL (8.6-20.0); Vitamin B12 284 pg/mL (193-986)
[2018-12-16] MEDS: Aspirin E.C. 325 MG TABEC PO (08:53)
[2018-12-16] MEDS: metFORMIN 500 MG TAB 1500 MG PO (08:53)
[2018-12-16] MEDS: Pantoprazole 40 MG TABCR PO (08:54)
[2018-12-16] MEDS: Insulin Aspart 300 UNITS/3 ML PEN SC ×3 (09:35→17:15)
[2018-12-16] MEDS: Insulin Glargine 300 UNITS/3 ML PEN 24 UNITS SC (10:15)
[2018-12-16] MEDS: CEFEPIME 2 GM in Normal Saline 100 ML IVPB ×2 (10:29→21:27)
[2018-12-16] MEDS: Normal Saline Flush 10 ML SYR 20 ML IVP ×2 (10:38→20:49)
[2018-12-16 11:54] LABS: Vancomycin, Trough 21.1 ug/mL (10.0-20.0)
[2018-12-16] MEDS: Normal Saline Flush 10 ML SYR (14:34)
[2018-12-16 15:59] VITALS: BP 144/77; PULSE 99; RESP 16; TEMP 37; O2SAT 95
--- NOTE | 2018-12-16 17:03 | PDOC.CMIN ---
- If Service Date Differs Date of service: 12/16/18 Time of Service: 17:03 Care Management Initial Assess REASON FOR HOSPITALIZATION:: Cavitary Pneumonia, lung abscess, SB1 x 6 weeks for IV antibioitcs PAST MEDICAL HISTORY/PAST SURGICAL HISTORY:: Schizo affective disorder, DM, normocytic anemia, chronic oropharyngeal dysphagia. PREVIOUS FUNCTIONAL STATUS/SOCIAL/FAMILY SUPPORTS:: Koko resides at [facility]. His mental health is managed by [facility] and [facility] program. He states he is inpendent with some ADL?s and does not use ambulatory aids. He is dependent on [facility] for medications transportation, and meals. His guardian is Sarai De La Fuente [phone] CURRENT FUNCTIONAL STATUS:: Koko is appropiate, alert and engaged during assessment. He understands he will need IV antibiotics over the next 6 weeks. He will return to [facility] when he is medically ready. Has patient been provided with information about the portal?: Yes Did the patient sign up for the portal?: No CODE STATUS:: DNR/DNI INSURANCE COVERAGE / FINANCIAL ISSUES:: Medicare, Medicaid CURRENT HOME/COMMUNITY SERVICES/EQUIPMENT:: Lives at [facility] which is an assisted living facility in [place], [place]. PRIMARY CARE PHYSICIAN:: [facility] POTENTIAL DISCHARGE NEEDS:: Follow-up appointment with primary care scheduled prior to discharge. Follow-up in place for infectious disease on 01/27/2019 scheduled. PATIENT/FAMILY EDUCATION NEEDS:: Discharge education, limitations, follow-up plan of care, asked az 3 and self-management. ANTICIPATED BARRIERS TO DISCHARGE:: 6 weeks of IV antibiotics. [facility] is not able to have the patient return until the antibiotics are complete due to their regulations. TRANSPORTATION:: Via RCT at time of discharge to return to [facility]. PLAN:: Elias is agreeable to swing bed level 1 for IV antibiotics. CONCHIS reviewed contract with Elias and his sister Sarai over the phone. Both agree to the contract. Elias remains on IV antibiotics anticipate completion on 01/16/19 he will then return to [facility]. Please see MD note for antibiotic details and follow-up plan with infectious disease at [facility]. CM to continue to provide support. CONCHIS contacted [facility] and requested Clozeril be brought from home. Per pharmacy he has 10 days worth.
--- NOTE | 2018-12-16 17:24 | INITIAL_ITS ---
- If Service Date Differs Date of service: 12/16/18 Time of Service: 17:03 Care Management Initial Assess REASON FOR HOSPITALIZATION:: Cavitary Pneumonia, lung abscess, SB1 x 6 weeks for IV antibioitcs PAST MEDICAL HISTORY/PAST SURGICAL HISTORY:: Schizo affective disorder, DM, normocytic anemia, chronic oropharyngeal dysphagia. PREVIOUS FUNCTIONAL STATUS/SOCIAL/FAMILY SUPPORTS:: Koko resides at [facility]. His mental health is managed by [facility] and [facility] program. He states he is inpendent with some ADL?s and does not use ambulatory aids. He is dependent on [facility] for medications transportation, and meals. His guardian is Sarai De La Fuente [phone] CURRENT FUNCTIONAL STATUS:: Koko is appropiate, alert and engaged during assessment. He understands he will need IV antibiotics over the next 6 weeks. He will return to [facility] when he is medically ready. Has patient been provided with information about the portal?: Yes Did the patient sign up for the portal?: No CODE STATUS:: DNR/DNI INSURANCE COVERAGE / FINANCIAL ISSUES:: Medicare, Medicaid CURRENT HOME/COMMUNITY SERVICES/EQUIPMENT:: Lives at [facility] which is an assisted living facility in [place], [place]. PRIMARY CARE PHYSICIAN:: [facility] POTENTIAL DISCHARGE NEEDS:: Follow-up appointment with primary care scheduled prior to discharge. Follow-up in place for infectious disease on 01/27/2019 scheduled. PATIENT/FAMILY EDUCATION NEEDS:: Discharge education, limitations, follow-up plan of care, asked oh 3 and self-management. ANTICIPATED BARRIERS TO DISCHARGE:: 6 weeks of IV antibiotics. [facility] is not able to have the patient return until the antibiotics are complete due to their regulations. TRANSPORTATION:: Via RCT at time of discharge to return to [facility]. PLAN:: Elias is agreeable to swing bed level 1 for IV antibiotics. CONCHIS reviewed contract with Elias and his sister Sarai over the phone. Both agree to the contract. Elias remains on IV antibiotics anticipate completion on 01/16/19 he will then return to [facility]. Please see MD note for antibiotic details and follow-up plan with infectious disease at [facility]. CM to continue to provide support. CONCHIS contacted [facility] and requested Clozeril be brought from home. Per pharmacy he has 10 days worth.
--- NOTE | 2018-12-16 18:00 | CM.SBPSYCH ---
- If Service Date Differs Date of service: 12/16/18 Time of Service: 18:00 SB Psychosocial/Act.Assessment - Hospital Admission Admission Date: 12/15/18 [facility]mission From:: [facility] to [facility] IV antibiotics - Swing Bed Admission Swing Bed Admit Date:: 12/15/18 - Social Supports PREVIOUS FUNCTIONAL STATUS/SOCIAL/FAMILY SUPPORTS:: Koko resides at [facility] living. His mental health is managed by [facility] and [facility] program. He states he is inpendent with some ADL?s and does not use ambulatory aids. He is dependent on [facility] for medications transportation, and meals. His guardian is Sarai De La Fuente [phone] - Work History Employment Status:: Disabled - [place]: No [place] Spouse: No - Benefits Financial: SSI, Medicare, Medicaid - Shinto Active Episcopalian Member:: No Episcopalian Affliation: Mandaen Will Episcopalian Members or Mental Hygiene Consultant Visit:: No - Advance Directives for Healthcare If no AD, do you want more information:: Yes - Interests Hobbies:: Television - Present Functional Status Physical Abilities:: No limitaions Cognitive:: Schizoaffective disorder Communication:: Appropriate, alert and engaged. Sensory Systems: Intact Behavior:: Appropriate, friendly, pleasant and engaged. - Medical History PAST MEDICAL HISTORY/PAST SURGICAL HISTORY:: Schizo affective disorder, DM, normocytic anemia, chronic oropharyngeal dysphagia. General Health:: History of cavity lesions related to pneumonia and lung abscesses. Past Psychiatric Treatment:: Currently receives services through [facility], [facility] and resides at [facility] - Admission Data Reason for Swing Bed Admission:: IV antibiotics for lung abscesses times 6 weeks completion date 01/16/2019. Discharge Plan:: Will return to assisted living when medically ready for discharge. Assessment: Elias makes good eye contact, he is appropriate during assessment. CM explained swing bed program including ability to go out on pass with his family. Client became very excited that he will be able to go shopping with his sisters. CM contacted his Sister Sarai and reviewed plan for swing bed, she states she will be down on Saturday to see him. CM explained to sister that she could take them out on pass when possible. Patron Attendant: Fariba Newman Date Assessment was completed:: 12/16/18
--- NOTE | 2018-12-16 18:08 | CMSA_ITS ---
- If Service Date Differs Date of service: 12/16/18 Time of Service: 18:00 SB Psychosocial/Act.Assessment - Hospital Admission Admission Date: 12/15/18 Admission From:: [facility] to SB1 IV antibiotics - Swing Bed Admission Swing Bed Admit Date:: 12/15/18 - Social Supports PREVIOUS FUNCTIONAL STATUS/SOCIAL/FAMILY SUPPORTS:: Koko resides at [facility] living. His mental health is managed by [facility] and [facility] program. He states he is inpendent with some ADL?s and does not use ambulatory aids. He is dependent on [place] for medications transportation, and meals. His guardian is Sarai De La Fuente [phone] - Work History Employment Status:: Disabled - [place]: No [place] Spouse: No - Benefits Financial: SSI, Medicare, Medicaid - Orthodox Active Rastafari Member:: No Rastafari Affliation: Congregation Will Rastafari Members or Game Designer Visit:: No - Advance Directives for Healthcare If no AD, do you want more information:: Yes - Interests Hobbies:: Television - Present Functional Status Physical Abilities:: No limitaions Cognitive:: Schizoaffective disorder Communication:: Appropriate, alert and engaged. Sensory Systems: Intact Behavior:: Appropriate, friendly, pleasant and engaged. - Medical History PAST MEDICAL HISTORY/PAST SURGICAL HISTORY:: Schizo affective disorder, DM, normocytic anemia, chronic oropharyngeal dysphagia. General Health:: History of cavity lesions related to pneumonia and lung abscesses. Past Psychiatric Treatment:: Currently receives services through [facility], [facility] and resides at [facility] - Admission Data Reason for Swing Bed Admission:: IV antibiotics for lung abscesses times 6 weeks completion date 01/16/2019. Discharge Plan:: Will return to assisted living when medically ready for discharge. Assessment: Elias makes good eye contact, he is appropriate during assessment. CM explained swing bed program including ability to go out on pass with his family. Client became very excited that he will be able to go shopping with his sisters. CM contacted his Sister Sarai and reviewed plan for swing bed, she states she will be down on Saturday to see him. CM explained to sister that she could take them out on pass when possible. Program Eligibility Specialist: Fariba Newman Date Assessment was completed:: 12/16/18
--- NOTE | 2018-12-16 18:08 | CM.SWINGPC ---
- If Service Date Differs Date of service: 12/16/18 Time of Service: 18:10 Swingbed Plan of Care Plan of care: SWING BED PROGRAM ACTIVITIES/DISCHARGE PLAN OF CARE ACTIVITIES PLAN Date:12/15/18 Identified Need: Individual activities Intervention/Plan: Activity Cart, Reki, Music therapy, pet therapy, television, and phone in the room. Initials [facility] DISCHARGE PLAN Date: Identified Need:Antibiotic for 6 weeks and date 01/16/2019. Intervention/Plan:IV antibiotics provided alf care, lab draws and prevention and early detection of complications of treatment. Elias will be discharged to assisted living when IV antibiotic are complete. Initials [facility]
--- NOTE | 2018-12-16 18:22 | CMSCP_ITS ---
- If Service Date Differs Date of service: 12/16/18 Time of Service: 18:10 Swingbed Plan of Care Plan of care: SWING BED PROGRAM ACTIVITIES/DISCHARGE PLAN OF CARE ACTIVITIES PLAN Date:12/15/18 Identified Need: Individual activities Intervention/Plan: Activity Cart, Reki, Music therapy, pet therapy, television, and phone in the room. Initials [facility] DISCHARGE PLAN Date: Identified Need:Antibiotic for 6 weeks and date 01/16/2019. Intervention/Plan:IV antibiotics provided half-way care, lab draws and prevention and early detection of complications of treatment. Elias will be discharged to assisted living when IV antibiotic are complete. Initials [facility]
[2018-12-16] MEDS: Simvastatin 20 MG TAB PO (20:50)
[2018-12-16] MEDS: Normal Saline Flush 10 ML SYR IVP (21:27)
[2018-12-16] MEDS: Normal Saline 500 ML IV (21:33)
[2018-12-16] MEDS: metFORMIN 500 MG TAB 1000 MG PO (21:35)
[2018-12-17] VITALS (7 sets, daily range): BP systolic 120–157; BP diastolic 72–83; PULSE 88–93; RESP 17–28; TEMP 36.4–36.9; O2SAT 91–97
[2018-12-17] MEDS: Normal Saline Flush 10 ML SYR IVP (02:32)
[2018-12-17] MEDS: metroNIDAZOLE 500 MG TAB PO ×3 (06:04→21:49)
[2018-12-17] MEDS: Pantoprazole 40 MG TABCR PO (08:17)
[2018-12-17] MEDS: Aspirin E.C. 325 MG TABEC PO (08:17)
[2018-12-17] MEDS: metFORMIN 500 MG TAB 1500 MG PO (08:17)
[2018-12-17] MEDS: Normal Saline Flush 10 ML SYR 20 ML IVP ×2 (08:19→20:16)
[2018-12-17] MEDS: Insulin Aspart 300 UNITS/3 ML PEN SC ×3 (08:21→12:13)
[2018-12-17] MEDS: Insulin Glargine 300 UNITS/3 ML PEN 24 UNITS SC (08:22)
[2018-12-17] MEDS: CEFEPIME 2 GM in Normal Saline 100 ML IVPB ×2 (10:22→21:48)
[2018-12-17] MEDS: Bisacodyl 10 MG SUPP PR (13:54)
--- NOTE | 2018-12-17 17:46 | CMACTNOTE_ITS ---
- If Service Date Differs Date of service: 12/17/18 Time of Service: 17:41 Care Management Activity Note Elias complains of feeling more tired today. He states he aches all over. He is looking forward to meeting with his sister Sarai on Saturday. He is hopeful they can make a shopping trip. CM contacted [facility] and requested some of his clothing be brought in and his medications. Elias has been able to talk with his sister over the phone which he enjoys. He has been watching his television and walking around his room. He does remain on contact precautions. P: Elias will remain on IV antibiotics and continue with lab monitoring. Anticipate he will compete treatment on 01/16/19. He will return to [facility] when medically ready.
[2018-12-17] MEDS: Simvastatin 20 MG TAB PO (20:15)
[2018-12-17] MEDS: Normal Saline 500 ML IV (21:48)
[2018-12-17] MEDS: metFORMIN 500 MG TAB 1000 MG PO (21:49)
[2018-12-17] MEDS: Acetaminophen 325 MG TAB 650 MG PO (22:09)
[2018-12-18] MEDS: Normal Saline Flush 10 ML SYR IVP ×3 (03:13→11:46)
[2018-12-18] MEDS: metroNIDAZOLE 500 MG TAB PO ×3 (06:17→22:11)
[2018-12-18 07:08] LABS: Cholesterol 104 mg/dL (50-200); HDL Cholesterol 40 mg/dL (40-60); LDL CHOLESTEROL 49 mg/dL (<100); Triglyceride 86 mg/dL (30-150)
[2018-12-18 07:45] VITALS: BP 151/86; PULSE 81; RESP 18; TEMP 36.7; O2SAT 96
[2018-12-18] MEDS: Aspirin E.C. 325 MG TABEC PO (08:26)
[2018-12-18] MEDS: Pantoprazole 40 MG TABCR PO (08:26)
[2018-12-18] MEDS: metFORMIN 500 MG TAB 1500 MG PO (08:26)
[2018-12-18] MEDS: Insulin Aspart 300 UNITS/3 ML PEN SC ×2 (08:35→12:07)
[2018-12-18] MEDS: Acetaminophen 325 MG TAB 650 MG PO (08:36)
[2018-12-18] MEDS: Normal Saline Flush 10 ML SYR 20 ML IVP ×2 (08:39→19:49)
[2018-12-18] MEDS: Insulin Glargine 300 UNITS/3 ML PEN 24 UNITS SC (08:41)
[2018-12-18 09:25] VITALS: O2SAT 96
[2018-12-18] MEDS: CEFEPIME 2 GM in Normal Saline 100 ML IVPB ×2 (10:44→22:09)
[2018-12-18 11:45] VITALS: BP 141/83; PULSE 85; RESP 18; TEMP 36.7; O2SAT 98
--- NOTE | 2018-12-18 15:01 | CHAPLAIN ---
Koko was in bed, covered up and curled up when I stopped in. He was pleasant, but not interested in a longer conversation. I explained my role and offered support.
[2018-12-18 15:44] VITALS: BP 145/80; PULSE 89; RESP 18; TEMP 36.7; O2SAT 97
[2018-12-18 15:50] VITALS: O2SAT 97
--- NOTE | 2018-12-18 15:53 | W.INDIABCONS ---
Date of service: 12/18/18 Time of Service: 15:53 Diabetes Inpatient Consult DESCRIPTION/ASSESSMENT: Appreciate diabetes consult for Mr. Estevez who is hospitalized with pneumonia with diagnosis of schizophrenia living in skilled nursing where meals are provided and diabetes self care administered by caregivers. BMI 21 A1c 6.3 on 03/17. Mr. Estevez has blood sugars here fasting 85-158, mealtime blood sugars 99-135. Here he receives 24u Glargine, sensitive insulin correction and mealtime insulin at 1 unit for 10grams carbohydrate. Here he also gets Metformin and Pioglitizone. These oral medications are not listed on his home medication list that i can see. His Home medication list includes 25u Glargine, 7u mealtime insulin with unspecified insulin correction. Blood sugars tightly controlled here. INTERVENTION: No intervention at this time given his living situation, except to question multiple medication regimen with man without obvious insulin resistance and multiple insulin dosing. PLAN: Will follow blood sugars. Time Spent in Nutritional Counseling and Treatment: 0 face to face inpatient
--- NOTE | 2018-12-18 16:10 | DM INPTCON_ITS ---
Date of service: 12/18/18 Time of Service: 15:53 Diabetes Inpatient Consult DESCRIPTION/ASSESSMENT: Appreciate diabetes consult for Mr. Estevez who is hospitalized with pneumonia with diagnosis of schizophrenia living in longterm where meals are provided and diabetes self care administered by caregivers. BMI 21 A1c 6.3 on 03/17. Mr. Estevez has blood sugars here fasting 85-158, mealtime blood sugars 99-135. Here he receives 24u Glargine, sensitive insulin correction and mealtime insulin at 1 unit for 10grams carbohydrate. Here he also gets Metformin and Pioglitizone. These oral medications are not listed on his home medication list that i can see. His Home medication list includes 25u Glargine, 7u mealtime insulin with unspecified insulin correction. Blood sugars tightly controlled here. INTERVENTION: No intervention at this time given his living situation, except to question multiple medication regimen with man without obvious insulin resistance and multiple insulin dosing. PLAN: Will follow blood sugars. Time Spent in Nutritional Counseling and Treatment: 0 face to face inpatient
[2018-12-18] MEDS: Simvastatin 20 MG TAB PO (19:50)
[2018-12-18] MEDS: Normal Saline 500 ML 30 ML IV (22:10)
[2018-12-18] MEDS: metFORMIN 500 MG TAB 1000 MG PO (22:11)
[2018-12-18 23:58] VITALS: BP 157/92; PULSE 87; RESP 18; TEMP 37.1; O2SAT 95
[2018-12-19] MEDS: Normal Saline Flush 10 ML SYR IVP ×3 (02:45→14:35)
[2018-12-19] MEDS: metroNIDAZOLE 500 MG TAB PO ×3 (06:42→22:56)
[2018-12-19 07:44] VITALS: BP 147/87; PULSE 85; RESP 18; TEMP 36.7; O2SAT 94
[2018-12-19] MEDS: metFORMIN 500 MG TAB 1500 MG PO (08:25)
[2018-12-19] MEDS: Pantoprazole 40 MG TABCR PO (08:27)
[2018-12-19] MEDS: Aspirin E.C. 325 MG TABEC PO (08:28)
[2018-12-19] MEDS: Normal Saline Flush 10 ML SYR 20 ML IVP ×3 (08:28→20:23)
[2018-12-19] MEDS: Insulin Aspart 300 UNITS/3 ML PEN SC ×3 (08:30→22:55)
[2018-12-19] MEDS: Insulin Glargine 300 UNITS/3 ML PEN 24 UNITS SC (08:32)
[2018-12-19] MEDS: CEFEPIME 2 GM in Normal Saline 100 ML IVPB ×2 (10:16→22:55)
[2018-12-19 11:47] VITALS: BP 152/87; PULSE 88; RESP 18; TEMP 36.4; O2SAT 93
[2018-12-19] MEDS: Alteplase 2 MG VIAL IJ (12:13)
--- NOTE | 2018-12-19 13:00 | PHARADMIT ---
Addendum entered by Senthil Rodriguez III 01/21/19 17:03: Vancomycin, cefepime and metronidazole continue, new end date of 01/23/19 VANCOMYCIN TROUGH 17.2 NO CHANGES Addendum entered by Senthil Rodriguez III 01/20/19 14:04: Vancomycin, cefepime and metronidazole continue, new end date of 01/23/19 AFTER 8AM VANCO AND 10 AM CEFEPIME BP- 152/91 Lytes-OK, SCr-0.82 H&H-8.8/29.0 Plts-339 Last BM 01/17 Addendum entered by Angle Trejo 01/17/19 10:15: Vancomycin, cefepime and metronidazole continue, new end date of 01/23/19 VS- okay no labs FSBG-96 vanco trough today, will adjust dose if needed ECHO ordered for Saturday, will have other imaging prior to discharge Addendum entered by Senthil Rodriguez III 01/16/19 11:16: Pharmacy Note Subjective Continue currrent therapy (triple ABX) Objective VS-OK No labs Wgt-65.9 Last BM 01/13 Assessment Vancomycin trough today. Watch SCr..... Plan No changes Addendum entered by Angle Trejo 01/13/19 14:50: Vancomycin, cefepime and metronidazole continue, new end date of 01/23/19 end date was extended per [facility] ID recommendations apixaban started due to pulmonary emoboli found on chest CT continue to follow vanco Addendum entered by Angle Trejo 01/12/19 17:01: Vancomycin trough 15.6, continue current dose cefepime and metronidazole continue BP-167/88 HR-95 SCr-0.[address] done yesterday; mentioned talking to ID at [facility], no note yet Addendum entered by Senthil Rodriguez III 01/09/19 15:23: Vancomycin trough (17.5), continue along with Cefepime & Flagyl thru 01/16. VS-OK scR- 1.15 No labs Addendum entered by Angle Trejo 01/05/19 12:11: Swing Bed here for IV Antibiotics and lab monitoring until 01/16/2019 VS-okay SCr-0.89 vanco cefepime and metronidazole continue no med changes vanco trough came back at 16.5; continuing same dose Addendum entered by Kaci Marte 12/31/18 15:40: Pharmacy Note Subjective Swingbed, nothing new reported, room air, eating well, c/o pain all over Objective VS good, lytes in range, H/H 8.8/28.4 Assessment Vanco/Cefepime/Flagyl for Enterococcus Faecium and S.Aureus blood and sputum collected beginning of November No med changes Simvastatin on Hold Just APAP for pain, moving helps ease his pain also Plan send Clozapine AM and PM Anbx thru 01/16/19 Next Vanco trough 01/01/19 @ 1500 along w/SCr Addendum entered by Angle Trejo 12/30/18 14:56: Swing Bed here for IV Antibiotics and lab monitoring until 01/16/2019 VS-okay SCr-0.96 no med changes vanco trough today was 18.8; continuing same dose Addendum entered by Senthil Rodriguez III 12/24/18 12:30: Pharmacy Note Subjective Swing Bed here for IV Antibiotics and lab monitoring until 01/16/2019. (Cefepime, Vancomycin,Flagyl) Objective VS-OK Pain:04/08 No Labs FSBS-229 BM yesterday Assessment No Changes Plan Provider notes for weekly labs, Follow Vancomycin Addendum entered by Senthil Rodriguez III 12/23/18 11:58: Pharmacy Note Subjective Swing Bed here for IV Antibiotics and lab monitoring until 01/16/2019 Objective VS-OK SCr-0.99 other Labs-WNL, FSBS-138 BM yesterday Assessment Vancomycin trough 22.5, SCr-up. Dose evaluated and adjusted to 1gm @10 hours. Cefepime, Flagyl continue. *Of note nursing executive used Levemir pen instead of Lantus for morning dose. Instructed her about the need to STOP, when scan is not accepted, and verifiy the medication. Plan Patient's Own Clozaril sent up each morning and evening. Addendum entered by Angle Trejo 12/22/18 12:39: Pharmacy Note Subjective Swing Bed here for IV Antibiotics and lab monitoring until 01/16/2019 Objective VS-okay no labs FSBG-191 Assessment vanco, cefepime and metronidazole continue vanco dosing changed yesterday based on trough and MD input, then timing adjusted overnight. Trough and SCr ordered for tomorrow at 0900 CM still working on getting more of pts own clozapine for use while here Plan watch for trough and creatinine, adjust dosing as necessary Addendum entered by Angle Trejo 12/20/18 10:01: Pharmacy Note Subjective Swing Bed here for IV Antibiotics and lab monitoring until 01/16/2019 Objective BP-153/81 HR-93 other VS okay no labs Assessment vanco, cefepime and metronidazole continue CM contacted care facility pt was at regarding pts own clozapine and getting more for pt to use while here as the current supply the pt brought in will not last through his stay Plan vanco trough and SCr scheduled for tomorrow (H&P mentions checking trough biweekly) Addendum entered by Senthil Rodriguez III 12/19/18 13:02: Pharmacy Note Subjective Swing Bed here for IV Antibiotics and lab monitoring until 01/16/2019 Objective VS-OK No Labs. BM yesterday Assessment Vancomycin trough yesterday (17) , Vancomycin, Cefepime & Flagyl IV Continue. On Clozaril (send up tabs twice each day.) Monitor labs Plan To return to [place] when therapy completed. Original Note: Admission Pharmacy Clinical Review Swing Bed patient , below is the account Pharmacy Clinical Inteervention: ALIVIA CARPENTER Male : 1955 MedRec# [id number] 12/03/18 14:52 - Pharmacy Review by Senthil Rodriguez III Acct Num: [id number] : 1955 Patient Age: 63 Admission Pharmacy Clinical Review CAVITARY PNEUMONIA, ? SEPTIC EMBOLI/LUNG ABSCESS Code Status DNR/DNI Current Weight Wgt-63 kg Renally Cleared and Narrow Therapeutic Index Meds CrCl! 72 mL/min Meds-OK QTc Value / Action Taken QTc-478 BP Control, Fever BP- 175/87 Tmax- 36.8C Electrolytes reviewed Na- 140 K+3.7 Mag-2.0 DVT Prophylaxis none, Coughing blood Opiate Usage / Scheduled Bowel Regimen Ordered No Yes Plt/SCr for Heparin / Enoxaparin Plts- 473 SCr-0.90 INR for Warfarin NA H/H stable, WBC/Bands H&H- 8.9/29.0 WBC- 32.69 (On steroids) Antibiotic appropriateness Flagyl, Zosyn, Vanco Cultures and Sensitivities Blood- Gram (+) Cocci, Sputum- multiple [facility] ABX d/c within 24 hr na DM control / Insulin Dosing BG-306 Aspart, Glargine Heart Failure (Check EF%) (APOLONIA's, B-Block, Diuretics) Norvasc, NTG IV to PO Switch No Home Meds Reviewed Yes Home Meds Not Ordered ASA, Celebrex, Flovent, Metformin, Actos, Incruse Laura Comments [facility]- Clozaril, Vancomycin Trough 15 on 12/02
[2018-12-19 15:15] VITALS: BP 143/74; PULSE 85; RESP 18; TEMP 36.4; O2SAT 95
[2018-12-19 16:00] VITALS: O2SAT 96
[2018-12-19] MEDS: Simvastatin 20 MG TAB PO (20:23)
[2018-12-19] MEDS: metFORMIN 500 MG TAB 1000 MG PO (22:56)
[2018-12-20 00:38] VITALS: BP 165/93; PULSE 83; RESP 20; TEMP 36.7; O2SAT 94
[2018-12-20] MEDS: Normal Saline Flush 10 ML SYR IVP ×4 (01:53→21:51)
[2018-12-20] MEDS: Normal Saline 500 ML IV (01:54)
[2018-12-20] MEDS: metroNIDAZOLE 500 MG TAB PO ×3 (06:27→21:47)
[2018-12-20 07:50] VITALS: BP 153/81; PULSE 93; RESP 20; TEMP 36.5; O2SAT 90
[2018-12-20] MEDS: Aspirin E.C. 325 MG TABEC PO (08:15)
[2018-12-20] MEDS: metFORMIN 500 MG TAB 1500 MG PO (08:15)
[2018-12-20] MEDS: Pantoprazole 40 MG TABCR PO (08:15)
[2018-12-20] MEDS: Normal Saline Flush 10 ML SYR 20 ML IVP ×3 (08:16→19:42)
[2018-12-20] MEDS: Insulin Glargine 300 UNITS/3 ML PEN 24 UNITS SC (08:17)
[2018-12-20] MEDS: Insulin Aspart 300 UNITS/3 ML PEN SC ×3 (08:20→17:48)
[2018-12-20] MEDS: CEFEPIME 2 GM in Normal Saline 100 ML IVPB ×2 (10:19→21:49)
[2018-12-20 16:23] VITALS: BP 154/84; PULSE 89; RESP 19; TEMP 37; O2SAT 95
[2018-12-20] MEDS: Simvastatin 20 MG TAB PO (19:41)
[2018-12-20] MEDS: metFORMIN 500 MG TAB 1000 MG PO (21:47)
[2018-12-20 23:30] VITALS: BP 147/78; PULSE 85; RESP 17; TEMP 37.1; O2SAT 96
[2018-12-21] MEDS: Normal Saline Flush 10 ML SYR IVP ×3 (02:42→15:07)
[2018-12-21] MEDS: Normal Saline 500 ML 100 ML IV (02:47)
[2018-12-21] MEDS: metroNIDAZOLE 500 MG TAB PO ×3 (06:19→22:10)
[2018-12-21 07:27] VITALS: BP 147/75; PULSE 94; RESP 18; TEMP 35.9; O2SAT 94
[2018-12-21] MEDS: Acetaminophen 325 MG TAB 650 MG PO (08:03)
[2018-12-21] MEDS: Aspirin E.C. 325 MG TABEC PO (08:05)
[2018-12-21] MEDS: Pantoprazole 40 MG TABCR PO (08:05)
[2018-12-21] MEDS: metFORMIN 500 MG TAB 1500 MG PO (08:05)
[2018-12-21] MEDS: Normal Saline Flush 10 ML SYR 20 ML IVP ×2 (08:07→22:04)
[2018-12-21] MEDS: Insulin Aspart 300 UNITS/3 ML PEN SC ×3 (08:09→17:44)
[2018-12-21] MEDS: Insulin Glargine 300 UNITS/3 ML PEN 24 UNITS SC (08:11)
[2018-12-21] MEDS: CEFEPIME 2 GM in Normal Saline 100 ML IVPB ×2 (09:51→22:04)
--- NOTE | 2018-12-21 10:40 | PDOC.CMPRO ---
- If Service Date Differs Date of service: 12/21/18 Time of Service: 10:40 Care Management Progress Note S/O: Koko continues in SB1 for IV antibiotics. CM contacted [facility] requested they bring in his Clozapine and some clothing. Caregiver reports that she will follow up with [facility] on Saturday to bring in Elias's belongings and meds. A: Koko is a 63 year old male admitted for 6 weeks of IV antibiotics related to lung abscess. P: Koko was able to complete his advance directives today with CM. He remains SB1 level of care no change in status today. He will return to [facility] when medically ready. Anticipate completion of antibiotics on 01/16/19. He will transport to [facility] via [facility] at time of discharge.
--- NOTE | 2018-12-21 10:58 | CMPROGNOTE_ITS ---
- If Service Date Differs Date of service: 12/21/18 Time of Service: 10:40 Care Management Progress Note S/O: Koko continues in SB1 for IV antibiotics. CM contacted [facility] requested they bring in his Clozapine and some clothing. Caregiver reports that she will follow up with [facility] on Saturday to bring in Elias's belongings and meds. A: Koko is a 63 year old male admitted for 6 weeks of IV antibiotics related to lung abscess. P: Koko was able to complete his advance directives today with CM. He remains SB1 level of care no change in status today. He will return to [facility] when medically ready. Anticipate completion of antibiotics on 01/16/19. He will transport to [facility] via [facility] at time of discharge.
[2018-12-21 14:30] LABS: CREATININE 0.86 mg/dL (0.70-1.30); Vancomycin, Trough 14.5 ug/mL (10.0-20.0)
[2018-12-21 16:06] VITALS: BP 133/76; PULSE 95; RESP 18; TEMP 36.7; O2SAT 97
[2018-12-21] MEDS: metFORMIN 500 MG TAB 1000 MG PO (22:10)
[2018-12-21] MEDS: Simvastatin 20 MG TAB PO (22:10)
[2018-12-21 23:56] VITALS: BP 172/72; PULSE 91; RESP 18; TEMP 37.1; O2SAT 97
[2018-12-22] MEDS: Normal Saline Flush 10 ML SYR IVP ×2 (02:04→18:01)
[2018-12-22] MEDS: metroNIDAZOLE 500 MG TAB PO ×3 (06:42→21:38)
[2018-12-22 07:40] VITALS: BP 127/80; PULSE 71; RESP 18; TEMP 36.5; O2SAT 96
[2018-12-22] MEDS: Pantoprazole 40 MG TABCR PO (08:25)
[2018-12-22] MEDS: Insulin Glargine 300 UNITS/3 ML PEN 24 UNITS SC (08:25)
[2018-12-22] MEDS: Aspirin E.C. 325 MG TABEC PO (08:25)
[2018-12-22] MEDS: metFORMIN 500 MG TAB 1500 MG PO (08:25)
[2018-12-22] MEDS: Insulin Aspart 300 UNITS/3 ML PEN SC ×3 (08:26→11:52)
[2018-12-22] MEDS: Normal Saline Flush 10 ML SYR 20 ML IVP ×2 (08:36→19:39)
[2018-12-22] MEDS: Acetaminophen 325 MG TAB 650 MG PO ×2 (09:03→18:00)
[2018-12-22] MEDS: CEFEPIME 2 GM in Normal Saline 100 ML IVPB ×2 (09:17→21:40)
[2018-12-22 09:40] VITALS: O2SAT 96
[2018-12-22 15:51] VITALS: BP 125/71; PULSE 79; RESP 18; TEMP 37; O2SAT 94
[2018-12-22] MEDS: Normal Saline 500 ML 30 ML IV ×2 (18:01→21:41)
[2018-12-22] MEDS: Simvastatin 20 MG TAB PO (19:39)
[2018-12-22] MEDS: metFORMIN 500 MG TAB 1000 MG PO (21:39)
[2018-12-23 01:55] VITALS: BP 130/69; PULSE 80; RESP 17; TEMP 36.6; O2SAT 97
[2018-12-23] MEDS: Normal Saline Flush 10 ML SYR IVP ×2 (01:55→12:07)
[2018-12-23] MEDS: metroNIDAZOLE 500 MG TAB PO ×3 (05:12→21:54)
[2018-12-23] MEDS: Acetaminophen 325 MG TAB 650 MG PO ×3 (05:26→16:16)
[2018-12-23 06:44] LABS: HCT 29.4 % (40.0-50.0); HGB 9.2 g/dL (13.5-17.5); Mean Corp. HGB Concentration 31.3 g/dL (32.0-36.0); Mean Corpuscular Hemoglobin 27.5 pg (27.0-33.0); Platelet Count 315 x1000/uL (130-400); RBC 3.34 m/cumm (4.50-6.00); RBC Distribution Width 15.9 % (11.8-14.1); White Blood Cell Count 7.04 k/cumm (4.4-10.8)
[2018-12-23 07:09] LABS: ALT 17 U/L (12-78); AST 14 U/L (15-37); Albumin 3.1 g/dL (3.4-5.0); Alkaline Phosphatase 91 U/L (46-116); Anion Gap 10.2 mmol/L (3-11); BUN 20 mg/dL (7-18); Bilirubin, Total 0.2 mg/dL (0.2-1.0); CO2 25.8 mmol/L (21.0-32.0); Calcium 8.7 mg/dL (8.5-10.1); Chloride 105 mmol/L (98-107); Glucose 95 mg/dL (70-100); Potassium 4.6 mmol/L (3.5-5.1); Sodium 141 mmol/L (136-145); Total Protein 6.7 g/dL (6.4-8.2)
[2018-12-23 07:36] VITALS: BP 115/72; PULSE 90; RESP 12; TEMP 35.8; O2SAT 96
[2018-12-23] MEDS: Pantoprazole 40 MG TABCR PO (08:00)
[2018-12-23] MEDS: metFORMIN 500 MG TAB 1500 MG PO (08:00)
[2018-12-23] MEDS: Normal Saline Flush 10 ML SYR 20 ML IVP ×2 (08:01→20:48)
[2018-12-23] MEDS: Aspirin E.C. 325 MG TABEC PO (08:01)
[2018-12-23] MEDS: Insulin Aspart 300 UNITS/3 ML PEN SC ×3 (09:13→16:58)
[2018-12-23] MEDS: Insulin Glargine 300 UNITS/3 ML PEN 24 UNITS SC (09:14)
[2018-12-23 09:28] LABS: CREATININE 0.99 mg/dL (0.70-1.30)
[2018-12-23 09:35] VITALS: O2SAT 96
[2018-12-23 09:36] LABS: Vancomycin, Trough 22.5 ug/mL (10.0-20.0)
[2018-12-23] MEDS: CEFEPIME 2 GM in Normal Saline 100 ML IVPB ×2 (09:57→21:12)
[2018-12-23 16:02] VITALS: BP 134/68; PULSE 89; RESP 18; TEMP 36.6; O2SAT 97
--- NOTE | 2018-12-23 16:37 | W.PM.PROGNOT ---
Date of Service Date of service: 12/23/18 Time of Service: 16:37 Assessment and Plan (1) Cavitary pneumonia: Current visit: Yes Status: Acute Continue Cefepime 2 gm IV Q12h, vancomycin 1.5 gm IV q12 hr, Flagyl 500 mg po q8hr through 01/16/2019. Monitor CBC, CMP weekly. repeat CT chest the week of 01/12/2019. Follow up with ID consultation upon discharge. Scheduled ID follow up is for 01/27/2019 at 13:15 with [facility] at [facility] (2) Bacteremia: Current visit: No Status: Acute As above. Repeat blood cultures negative. (3) Non-insulin dependent type 2 diabetes mellitus: Current visit: Yes Status: Acute Blood glucose under appropriate control. Continue home oral diabetic meds including metformin and Actos and continue supplementing this with insulin. (4) Hypertension: Current visit: Yes Status: Chronic Blood pressure within appropriate range. Not currently on treatment. Continue to monitor blood pressure. (5) Schizo affective schizophrenia: Current visit: Yes Status: Acute Stable. Continue his home clozaril and Geodon. (6) Normocytic anemia: Current visit: No Status: Acute H&H stable, improved. Continue to monitor weekly labs. Continue PPI for GI protection. (7) Pain: Current visit: Yes Status: Acute He is not able to verbalizes where he has pain. He is hemodynamically stable. Labs are stable. Hold statin for now to see if there is improvement. Continue acetaminophen for pain control. Subjective Interval history since last seen: Koko Estevez is a pleasant 63 year old male resident of [facility] in [place] who is currently being treated for Cavitary pneumonia and bacteremia with triple antibiotics. He reports feeling weak and with pain all over today. He normally takes tylenol, however, the tylenol does not seem to be helping today. He cannot state where he has pain, when questioned specifically if he has headache, back pain, abdominal pain or leg pain, he answers no. He denies shortness of breath, coughing, wheezing, he denies chest pain/pressure, palpitations, nausea, vomiting, diarrhea, he is eating and drinking and tolerating his diet. Exam Narrative Exam Narrative: General: Well-appearing, ambulating around the room, in no acute distress. Speaking in full sentences with no shortness of breath. HEENT: Extraocular movements are intact, pupils are equal and round, mucous membranes moist. Cardiovascular: Heart has regular rate and rhythm, no murmur appreciated. Respiratory: Respirations even and unlabored, no rales, rhonchi or wheezing. Gastrointestinal: Normoactive bowel sounds in all 4 quadrants, abdomen soft, nontender on palpation, no masses appreciated. Extremities: No clubbing, cyanosis or edema of bilateral lower extremities. Peripheral pulses intact bilaterally. Objective Objective Clinical Data: Abnormal lab results 12/23/18 12/23/18 12/23/18 Range/Units 06:15 06:15 09:00 RBC 3.34 L (4.50-6.00) m/cumm Hgb 9.2 L (13.5-17.5) g/dL Hct 29.4 L (40.0-50.0) % MCHC 31.3 L (32.0-36.0) g/dL RDW 15.9 H (11.8-14.1) % BUN 20 H (7-18) mg/dL AST 14 L (15-37) U/L Albumin 3.1 L (3.4-5.0) g/dL Vancomycin Trough 22.5 H* (10.0-20.0) ug/mL Vital Signs Temperature 36.6 C 12/23/18 16:02 Temperature Source Tympanic 12/23/18 16:02 Pulse 89 12/23/18 16:02 Pulse Rhythm Regular 12/23/18 14:10 Respiratory Rate 18 12/23/18 16:02 Respiratory Effort Drooling 12/23/18 14:10 Respiratory Depth Normal 12/23/18 14:10 Respiratory Pattern Normal 12/23/18 14:10 Blood Pressure 134/68 12/23/18 16:02 Pulse Oximetry 97 12/23/18 16:02 Oxygen Delivery Method Room Air 12/23/18 16:02 Oxygen Flow Rate 0 12/23/18 16:02 Pain Level 6 12/23/18 16:16 Comment 12/20/18 07:50 Intake & Output 12/22/18 12/23/18 12/23/18 23:59 11:59 23:59 Intake Total 1051 / 2609.333 590 / 1130 540 / 1130 Balance 1051 / 2609.333 590 / 1130 540 / 1130 Intake: IV 451 / 1349.333 220 / 520 300 / 520 Oral 600 / 1260 370 / 610 240 / 610 Other: Urine Color Yellow Urine Appearance Clear Comment pt gets up AD VAZQUEZ to void Stool Size Large Moderate Stool Characteristics Brown Soft Formed Voiding Methods Toilet Toilet Toilet Laboratory Results WBC 7.04 k/cumm (4.4-10.8) 12/23/18 06:15 RBC 3.34 m/cumm (4.50-6.00) L 12/23/18 06:15 Hgb 9.2 g/dL (13.5-17.5) L 12/23/18 06:15 Hct 29.4 % (40.0-50.0) L 12/23/18 06:15 MCV 88.0 fL (80-95) 12/23/18 06:15 MCH 27.5 pg (27.0-33.0) 12/23/18 06:15 MCHC 31.3 g/dL (32.0-36.0) L 12/23/18 06:15 RDW 15.9 % (11.8-14.1) H 12/23/18 06:15 Plt Count 315 x1000/uL (130-400) 12/23/18 06:15 MPV 10.0 fL (8.0-11.0) 12/23/18 06:15 Immature Gran % 0.2 12/16/18 06:46 Neutrophils % 65.8 12/16/18 06:46 Lymphocytes % 22.0 12/16/18 06:46 Monocytes % 10.6 12/16/18 06:46 Eosinophils % 1.4 12/16/18 06:46 Basophils % 0.0 12/16/18 06:46 Absolute Neutrophils 5.85 k/cumm (1.2-6.7) 12/16/18 06:46 Absolute Lymphocytes 1.95 k/cumm (1.2-3.4) 12/16/18 06:46 Absolute Monocytes 0.94 k/cumm (0.11-0.7) H 12/16/18 06:46 Absolute Eosinophils 0.12 k/cumm (0.0-0.7) 12/16/18 06:46 Absolute Basophils 0.00 k/cumm (0.0-0.2) 12/16/18 06:46 Sodium 141 mmol/L (136-145) 12/23/18 06:15 Potassium 4.6 mmol/L (3.5-5.1) 12/23/18 06:15 Chloride 105 mmol/L (98-107) 12/23/18 06:15 Carbon Dioxide 25.8 mmol/L (21.0-32.0) 12/23/18 06:15 Anion Gap 10.2 mmol/L (3-11) 12/23/18 06:15 BUN 20 mg/dL (7-18) H 12/23/18 06:15 Creatinine 0.99 mg/dL (0.70-1.30) 12/23/18 09:00 Estimated GFR/1.73 m2 >= 60.00 (mL/min/1.73m2) 12/23/18 09:00 Glucose 95 mg/dL (70-100) 12/23/18 06:15 Calcium 8.7 mg/dL (8.5-10.1) 12/23/18 06:15 Iron 15 ug/dL (50-175) L 12/16/18 06:46 TIBC 234 ug/dL (250-450) L 12/16/18 06:46 Transferrin % Sat 6 % (20-55) L 12/16/18 06:46 Ferritin 42 ng/mL (8-388) 12/16/18 06:46 Total Bilirubin 0.2 mg/dL (0.2-1.0) 12/23/18 06:15 AST 14 U/L (15-37) L 12/23/18 06:15 ALT 17 U/L (12-78) 12/23/18 06:15 Alkaline Phosphatase 91 U/L (46-116) 12/23/18 06:15 Total Protein 6.7 g/dL (6.4-8.2) 12/23/18 06:15 Albumin 3.1 g/dL (3.4-5.0) L 12/23/18 06:15 Triglycerides 86 mg/dL (30-150) 12/18/18 06:35 Total Cholesterol 104 mg/dL (50-200) 12/18/18 06:35 LDL Cholesterol Direct 49 mg/dL (<100) 12/18/18 06:35 HDL Cholesterol 40 mg/dL (40-60) 12/18/18 06:35 Vitamin B12 284 pg/mL (193-986) 12/16/18 06:46 Folate 9.5 ng/mL (8.6-20.0) 12/16/18 06:46 Vancomycin Trough 22.5 ug/mL (10.0-20.0) H* 12/23/18 09:00
[2018-12-23] MEDS: traMADol 50 MG TAB 25 MG PO (16:48)
[2018-12-23] MEDS: metFORMIN 500 MG TAB 1000 MG PO (21:53)
[2018-12-24 00:18] VITALS: BP 124/65; PULSE 81; RESP 18; TEMP 35.9; O2SAT 98
[2018-12-24] MEDS: metroNIDAZOLE 500 MG TAB PO ×3 (06:33→21:26)
[2018-12-24] MEDS: Acetaminophen 325 MG TAB 650 MG PO ×2 (07:02→16:05)
[2018-12-24 07:15] VITALS: BP 124/70; PULSE 90; RESP 18; TEMP 35.4; O2SAT 96
[2018-12-24 07:32] VITALS: BP 124/70; PULSE 90; RESP 18; TEMP 35.4
[2018-12-24] MEDS: Insulin Glargine 300 UNITS/3 ML PEN 24 UNITS SC (08:45)
[2018-12-24] MEDS: Insulin Aspart 300 UNITS/3 ML PEN SC ×4 (08:47→17:04)
[2018-12-24] MEDS: Pantoprazole 40 MG TABCR PO (08:48)
[2018-12-24] MEDS: metFORMIN 500 MG TAB 1500 MG PO (08:48)
[2018-12-24] MEDS: Aspirin E.C. 325 MG TABEC PO (08:48)
[2018-12-24] MEDS: Normal Saline Flush 10 ML SYR 20 ML IVP ×2 (08:49→21:25)
[2018-12-24] MEDS: Normal Saline 500 ML 30 ML IV (09:16)
[2018-12-24] MEDS: CEFEPIME 2 GM in Normal Saline 100 ML IVPB ×2 (10:48→21:25)
[2018-12-24 16:01] VITALS: BP 119/67; PULSE 91; RESP 16; TEMP 36; O2SAT 95
[2018-12-24] MEDS: traMADol 50 MG TAB 25 MG PO (17:10)
[2018-12-24 17:46] LABS: Vancomycin, Trough 20.4 ug/mL (10.0-20.0)
[2018-12-24] MEDS: Normal Saline Flush 10 ML SYR IVP (18:14)
[2018-12-24] MEDS: metFORMIN 500 MG TAB 1000 MG PO (21:25)
[2018-12-25 03:39] VITALS: BP 131/84; PULSE 80; RESP 16; TEMP 37; O2SAT 96
[2018-12-25] MEDS: metroNIDAZOLE 500 MG TAB PO ×3 (05:18→22:29)
[2018-12-25 07:40] VITALS: BP 140/80; PULSE 88; RESP 18; TEMP 36.6; O2SAT 97
[2018-12-25] MEDS: metFORMIN 500 MG TAB 1500 MG PO (08:30)
[2018-12-25] MEDS: Aspirin E.C. 325 MG TABEC PO (08:31)
[2018-12-25] MEDS: Pantoprazole 40 MG TABCR PO (08:31)
[2018-12-25] MEDS: Normal Saline Flush 10 ML SYR 20 ML IVP ×2 (08:31→21:27)
[2018-12-25] MEDS: Insulin Aspart 300 UNITS/3 ML PEN SC ×2 (08:32→12:08)
[2018-12-25] MEDS: Insulin Glargine 300 UNITS/3 ML PEN 24 UNITS SC (08:34)
[2018-12-25] MEDS: CEFEPIME 2 GM in Normal Saline 100 ML IVPB ×2 (10:36→22:27)
[2018-12-25] MEDS: Normal Saline Flush 10 ML SYR IVP ×4 (10:37→23:42)
[2018-12-25 10:50] VITALS: O2SAT 96
[2018-12-25 15:38] VITALS: BP 112/67; PULSE 91; RESP 18; TEMP 36.2; O2SAT 98
--- NOTE | 2018-12-25 16:51 | PDOC.CMACT ---
- If Service Date Differs Date of service: 12/25/18 Time of Service: 16:51 Care Management Activity Note Elias was visited by his sisters, he was able to complete his advance directives. He enjoys watching television and walking around his room. CM offered activities from [employer]. Elias states he pleased to have visitors and really enjoys when his family visits. CM contacted [facility] and requested some of his clothing be brought in and his medications. Elias has been able to talk with his sister over the phone which he enjoys. P: Elias will remain on IV antibiotics and continue with lab monitoring. Anticipate he will compete treatment on 01/16/19. He will return to [place] when medically ready.
--- NOTE | 2018-12-25 16:54 | CMACTNOTE_ITS ---
- If Service Date Differs Date of service: 12/25/18 Time of Service: 16:51 Care Management Activity Note Elias was visited by his sisters, he was able to complete his advance directives. He enjoys watching television and walking around his room. CM offered activities from [employer]. Elias states he pleased to have visitors and really enjoys when his family visits. CM contacted [facility] and requested some of his clothing be brought in and his medications. Elias has been able to talk with his sister over the phone which he enjoys. P: Elias will remain on IV antibiotics and continue with lab monitoring. Anticipate he will compete treatment on 01/16/19. He will return to [facility] when medically ready.
[2018-12-25] MEDS: metFORMIN 500 MG TAB 1000 MG PO (22:29)
[2018-12-25 23:50] VITALS: BP 148/68; PULSE 93; RESP 18; TEMP 36.7; O2SAT 98
[2018-12-26] MEDS: metroNIDAZOLE 500 MG TAB PO ×3 (06:26→21:44)
[2018-12-26 07:50] VITALS: BP 129/71; PULSE 99; RESP 14; TEMP 36.8; O2SAT 96
[2018-12-26] MEDS: Aspirin E.C. 325 MG TABEC PO (08:29)
[2018-12-26] MEDS: Pantoprazole 40 MG TABCR PO (08:29)
[2018-12-26] MEDS: metFORMIN 500 MG TAB 1500 MG PO (08:30)
[2018-12-26] MEDS: Normal Saline Flush 10 ML SYR 20 ML IVP ×2 (08:31→19:54)
[2018-12-26] MEDS: Insulin Glargine 300 UNITS/3 ML PEN 24 UNITS SC (08:31)
[2018-12-26] MEDS: Insulin Aspart 300 UNITS/3 ML PEN SC ×2 (08:33→12:13)
[2018-12-26 09:52] LABS: CREATININE 0.95 mg/dL (0.70-1.30)
[2018-12-26 10:01] LABS: Vancomycin, Trough 19.9 ug/mL (10.0-20.0)
[2018-12-26] MEDS: Acetaminophen 325 MG TAB 650 MG PO (10:10)
[2018-12-26] MEDS: CEFEPIME 2 GM in Normal Saline 100 ML IVPB ×2 (10:35→21:56)
[2018-12-26] MEDS: Normal Saline Flush 10 ML SYR IVP ×2 (10:36→13:22)
[2018-12-26 14:45] VITALS: BP 120/63; PULSE 78; RESP 18; TEMP 37.4; O2SAT 98
[2018-12-26] MEDS: Normal Saline 500 ML IV (19:54)
[2018-12-26 21:08] VITALS: BP 116/64; PULSE 87; RESP 18; TEMP 36.6; O2SAT 96
[2018-12-26] MEDS: metFORMIN 500 MG TAB 1000 MG PO (21:44)
[2018-12-27 01:15] VITALS: BP 116/74; PULSE 90; RESP 16; TEMP 37; O2SAT 93
[2018-12-27] MEDS: metroNIDAZOLE 500 MG TAB PO ×3 (05:57→21:15)
[2018-12-27] MEDS: Normal Saline Flush 10 ML SYR IVP ×4 (05:57→22:00)
[2018-12-27] MEDS: Insulin Glargine 300 UNITS/3 ML PEN 24 UNITS SC (08:22)
[2018-12-27] MEDS: Insulin Aspart 300 UNITS/3 ML PEN SC ×4 (08:23→21:17)
[2018-12-27 08:25] VITALS: BP 129/78; PULSE 91; RESP 17; TEMP 36.8; O2SAT 93
[2018-12-27] MEDS: metFORMIN 500 MG TAB 1500 MG PO (08:25)
[2018-12-27] MEDS: Aspirin E.C. 325 MG TABEC PO (08:25)
[2018-12-27] MEDS: Pantoprazole 40 MG TABCR PO (08:25)
[2018-12-27] MEDS: Normal Saline Flush 10 ML SYR 20 ML IVP (08:27)
[2018-12-27] MEDS: Acetaminophen 325 MG TAB 650 MG PO ×2 (09:01→16:08)
[2018-12-27] MEDS: CEFEPIME 2 GM in Normal Saline 100 ML IVPB ×2 (10:09→21:09)
[2018-12-27 15:52] VITALS: BP 116/68; PULSE 94; RESP 20; TEMP 36.7; O2SAT 98
[2018-12-27 19:33] VITALS: BP 130/81; PULSE 90; RESP 18; TEMP 36.4; O2SAT 98
[2018-12-27] MEDS: Normal Saline 500 ML IV (21:08)
[2018-12-27] MEDS: metFORMIN 500 MG TAB 1000 MG PO (21:15)
[2018-12-28 00:28] VITALS: BP 119/72; PULSE 98; RESP 18; TEMP 36.4; O2SAT 96
[2018-12-28] MEDS: traMADol 50 MG TAB 25 MG PO (01:00)
[2018-12-28] MEDS: Normal Saline Flush 10 ML SYR IVP (01:17)
[2018-12-28] MEDS: Acetaminophen 325 MG TAB 650 MG PO ×4 (02:12→21:47)
[2018-12-28] MEDS: metroNIDAZOLE 500 MG TAB PO ×3 (05:34→21:46)
[2018-12-28 07:40] VITALS: BP 123/77; PULSE 83; RESP 18; TEMP 36.7; O2SAT 96
[2018-12-28] MEDS: metFORMIN 500 MG TAB 1500 MG PO (08:50)
[2018-12-28] MEDS: Aspirin E.C. 325 MG TABEC PO (08:51)
[2018-12-28] MEDS: Pantoprazole 40 MG TABCR PO (08:51)
[2018-12-28] MEDS: Insulin Aspart 300 UNITS/3 ML PEN SC ×3 (08:51→21:50)
[2018-12-28] MEDS: Insulin Glargine 300 UNITS/3 ML PEN 20 UNITS SC (08:52)
[2018-12-28] MEDS: Normal Saline Flush 10 ML SYR 20 ML IVP ×3 (08:53→19:17)
[2018-12-28] MEDS: CEFEPIME 2 GM in Normal Saline 100 ML IVPB ×2 (10:04→21:47)
[2018-12-28 11:42] LABS: Vancomycin, Trough 19.5 ug/mL (10.0-20.0)
[2018-12-28 15:23] VITALS: BP 102/63; PULSE 101; RESP 18; TEMP 36; O2SAT 95
[2018-12-28] MEDS: metFORMIN 500 MG TAB 1000 MG PO (21:46)
[2018-12-28 23:45] VITALS: BP 101/57; PULSE 96; RESP 18; TEMP 36.5; O2SAT 96
[2018-12-29 00:50] VITALS: O2SAT 95
[2018-12-29] MEDS: metroNIDAZOLE 500 MG TAB PO ×3 (05:49→22:12)
[2018-12-29 08:19] VITALS: BP 150/82; PULSE 87; RESP 18; TEMP 35.8; O2SAT 96
[2018-12-29] MEDS: Normal Saline Flush 10 ML SYR 20 ML IVP ×2 (08:42→20:57)
[2018-12-29] MEDS: Aspirin E.C. 325 MG TABEC PO (08:43)
[2018-12-29] MEDS: metFORMIN 500 MG TAB 1500 MG PO (08:43)
[2018-12-29] MEDS: Pantoprazole 40 MG TABCR PO (08:44)
[2018-12-29] MEDS: Acetaminophen 325 MG TAB 650 MG PO (08:48)
[2018-12-29] MEDS: Insulin Glargine 300 UNITS/3 ML PEN 20 UNITS SC (08:57)
[2018-12-29] MEDS: CEFEPIME 2 GM in Normal Saline 100 ML IVPB ×2 (10:40→22:09)
[2018-12-29 10:45] VITALS: O2SAT 96
[2018-12-29] MEDS: Insulin Aspart 300 UNITS/3 ML PEN SC ×2 (12:19→16:58)
[2018-12-29 16:56] VITALS: BP 109/61; PULSE 96; RESP 19; TEMP 36.3; O2SAT 96
[2018-12-29] MEDS: Normal Saline Flush 10 ML SYR IVP ×2 (17:22→22:09)
[2018-12-29] MEDS: metFORMIN 500 MG TAB 1000 MG PO (22:10)
[2018-12-29 23:51] VITALS: BP 121/72; PULSE 96; RESP 18; TEMP 35.9; O2SAT 96
[2018-12-30] MEDS: Normal Saline Flush 10 ML SYR IVP ×2 (03:40→20:35)
[2018-12-30] MEDS: Acetaminophen 325 MG TAB 650 MG PO (03:48)
[2018-12-30] MEDS: metroNIDAZOLE 500 MG TAB PO ×3 (05:59→20:37)
[2018-12-30 07:40] VITALS: BP 114/82; PULSE 83; RESP 18; TEMP 36.6; O2SAT 95
[2018-12-30] MEDS: Insulin Glargine 300 UNITS/3 ML PEN 20 UNITS SC (08:23)
[2018-12-30] MEDS: Pantoprazole 40 MG TABCR PO (08:24)
[2018-12-30] MEDS: Normal Saline Flush 10 ML SYR 20 ML IVP ×2 (08:24→19:33)
[2018-12-30] MEDS: metFORMIN 500 MG TAB 1500 MG PO (08:24)
[2018-12-30] MEDS: Aspirin E.C. 325 MG TABEC PO (08:24)
[2018-12-30] MEDS: traMADol 50 MG TAB 25 MG PO (08:32)
[2018-12-30] MEDS: CEFEPIME 2 GM in Normal Saline 100 ML IVPB ×2 (09:26→20:34)
[2018-12-30 13:32] LABS: CREATININE 0.96 mg/dL (0.70-1.30)
[2018-12-30 14:02] LABS: Vancomycin, Trough 18.8 ug/mL (10.0-20.0)
[2018-12-30] MEDS: VANCOMYCIN 1,000 MG in Normal Saline 250 ML 166.667 ML IVPB ×2 (14:32→23:30)
[2018-12-30 16:09] VITALS: BP 164/82; PULSE 86; RESP 18; TEMP 36.6; O2SAT 97
[2018-12-30 20:06] VITALS: BP 125/72; PULSE 90; RESP 17; TEMP 36.3; O2SAT 97
[2018-12-30] MEDS: metFORMIN 500 MG TAB 1000 MG PO (20:35)
[2018-12-30] MEDS: Insulin Aspart 300 UNITS/3 ML PEN SC (20:38)
[2018-12-30 23:30] VITALS: BP 127/76; PULSE 91; RESP 16; TEMP 36.1; O2SAT 96
[2018-12-31] MEDS: metroNIDAZOLE 500 MG TAB PO ×3 (06:12→21:40)
[2018-12-31 07:07] LABS: HCT 28.4 % (40.0-50.0); HGB 8.8 g/dL (13.5-17.5); Mean Corpuscular Hemoglobin 26.4 pg (27.0-33.0); Mean Corpuscular Volume 85.3 fL (80-95); Mean Platelet Volume 9.9 fL (8.0-11.0); Platelet Count 334 x1000/uL (130-400); RBC 3.33 m/cumm (4.50-6.00); RBC Distribution Width 15.6 % (11.8-14.1); White Blood Cell Count 5.06 k/cumm (4.4-10.8)
[2018-12-31 07:20] VITALS: BP 97/63; PULSE 85; RESP 20; TEMP 35.7; O2SAT 96
[2018-12-31 07:30] VITALS: O2SAT 96
[2018-12-31 07:31] LABS: ALT 15 U/L (12-78); AST 12 U/L (15-37); Albumin 2.8 g/dL (3.4-5.0); Alkaline Phosphatase 82 U/L (46-116); Anion Gap 7.3 mmol/L (3-11); BUN 20 mg/dL (7-18); Bilirubin, Total 0.2 mg/dL (0.2-1.0); CO2 27.7 mmol/L (21.0-32.0); CREATININE 0.82 mg/dL (0.70-1.30); Calcium 8.5 mg/dL (8.5-10.1); Chloride 106 mmol/L (98-107); Glucose 78 mg/dL (70-100); Potassium 4.4 mmol/L (3.5-5.1); Sodium 141 mmol/L (136-145); Total Protein 6.1 g/dL (6.4-8.2)
[2018-12-31] MEDS: Acetaminophen 325 MG TAB 650 MG PO (07:45)
[2018-12-31] MEDS: metFORMIN 500 MG TAB 1500 MG PO (07:46)
[2018-12-31] MEDS: Pantoprazole 40 MG TABCR PO (07:47)
[2018-12-31] MEDS: Aspirin E.C. 325 MG TABEC PO (07:47)
[2018-12-31] MEDS: Normal Saline Flush 10 ML SYR 20 ML IVP ×2 (07:49→19:08)
[2018-12-31] MEDS: Insulin Glargine 300 UNITS/3 ML PEN 20 UNITS SC (07:51)
[2018-12-31 09:23] VITALS: BP 113/75
[2018-12-31 09:25] VITALS: O2SAT 96
[2018-12-31] MEDS: CEFEPIME 2 GM in Normal Saline 100 ML IVPB ×2 (09:44→21:36)
[2018-12-31] MEDS: Normal Saline 500 ML 30 ML IV (09:45)
[2018-12-31] MEDS: VANCOMYCIN 1,000 MG in Normal Saline 250 ML 166.667 ML IVPB ×2 (10:37→19:08)
--- NOTE | 2018-12-31 15:23 | CHAPLAIN ---
I had a short visit with Clep[facility]ella. He was pleasant and responded to questions, but did not seem interested in further conversation.
[2018-12-31 15:51] VITALS: BP 133/68; PULSE 95; RESP 17; TEMP 36.6; O2SAT 96
[2018-12-31] MEDS: Insulin Aspart 300 UNITS/3 ML PEN SC (16:51)
[2018-12-31] MEDS: Normal Saline Flush 10 ML SYR IVP (21:36)
[2018-12-31] MEDS: metFORMIN 500 MG TAB 1000 MG PO (21:40)
[2019-01-01 00:44] VITALS: BP 135/75; PULSE 63; RESP 18; TEMP 36.3; O2SAT 96
[2019-01-01] MEDS: metroNIDAZOLE 500 MG TAB PO ×3 (06:16→22:29)
[2019-01-01] MEDS: Normal Saline Flush 10 ML SYR IVP ×2 (06:16→10:26)
[2019-01-01] MEDS: VANCOMYCIN 1,000 MG in Normal Saline 250 ML 167 ML IVPB ×2 (06:17→17:15)
[2019-01-01 07:40] VITALS: BP 130/68; PULSE 79; RESP 18; TEMP 36.3; O2SAT 94
[2019-01-01] MEDS: Aspirin E.C. 325 MG TABEC PO (07:47)
[2019-01-01] MEDS: metFORMIN 500 MG TAB 1500 MG PO (07:48)
[2019-01-01] MEDS: traMADol 50 MG TAB 25 MG PO (07:48)
[2019-01-01] MEDS: Pantoprazole 40 MG TABCR PO (07:48)
[2019-01-01] MEDS: Insulin Glargine 300 UNITS/3 ML PEN 20 UNITS SC (07:49)
[2019-01-01] MEDS: Normal Saline Flush 10 ML SYR 20 ML IVP ×2 (08:22→19:35)
[2019-01-01] MEDS: CEFEPIME 2 GM in Normal Saline 100 ML IVPB ×2 (10:26→22:31)
--- NOTE | 2019-01-01 12:10 | PDOC.CMACT ---
- If Service Date Differs Date of service: 01/01/19 Time of Service: 12:10 Care Management Activity Note Elias is sitting up in his chair this morning, he is receptive to discussion and pleasant throughout interaction. He enjoys watching television and walking around his room. CM offered activities from the activity cart, and he is also offered Reiki, Music therapy, and Pet therapy when available. Elias enjoys having his family visit, and being able to talk with his sister on the phone. P: Elias will remain on IV antibiotics and continue with lab monitoring. Anticipate he will complete treatment on 01/16/19. He will return to [facility] when medically ready.
--- NOTE | 2019-01-01 13:44 | W.PM.PROGNOT ---
Documented by User: Sydney Wayne NP 01/01/19 14:02 Date of Service Date of service: 01/01/19 Time of Service: 13:47 Assessment and Plan (1) Cavitary pneumonia: Current visit: Yes Status: Acute Stable. Continue Cefepime 2 gm IV Q12h, vancomycin 1.5 gm IV q12 hr, Flagyl 500 mg po q8hr through 01/16/2019. Monitor CBC, CMP weekly. repeat CT chest the week of 01/12/2019. Follow up with ID consultation upon discharge. Scheduled ID follow up is for 01/27/2019 at 13:15 with [facility] La [facility] at [facility] (2) Bacteremia: Current visit: No Status: Acute As above. Repeat blood cultures negative (12/05/18). (3) Non-insulin dependent type 2 diabetes mellitus: Current visit: Yes Status: Acute Tight blood glucose control. Continue home oral diabetic meds including metformin and Actos and continue supplementing this with insulin. Decrease lantus to 16 units. Continue to monitor blood glucose. (4) Hypertension: Current visit: Yes Status: Chronic Blood pressure within appropriate range. Not currently on treatment. Continue to monitor blood pressure. (5) Schizo affective schizophrenia: Current visit: Yes Status: Acute Stable. Continue his home clozaril and Geodon. (6) Normocytic anemia: Current visit: No Status: Acute H&H stable, improved. Continue to monitor weekly labs. Continue PPI for GI protection. (7) Pain: Current visit: Yes Status: Acute Improved, continue to hold statin. Continue acetaminophen and tramadol for pain control. Subjective Interval history since last seen: Koko Estevez is a pleasant 63 year old male resident of [facility] in [place] who is currently being treated for Cavitary pneumonia and bacteremia with triple antibiotics with an end date of 01/16/19. He verbalizes no complaints today. He continues to cough occasionally, but denies any sputum production, he does not feel short of breath, no shortness of breathing, wheezing, chest pain/pressure, palpitations, he reports eating and drinking and tolerating his diet, no nausea, vomiting or diarrhea, no dysuria. He has been moving his bowels regularly, he had a bowel movement last night. Exam Narrative Exam Narrative: General: Well-appearing, lying in bed, in no acute distress. Speaking in full sentences with no shortness of breath. HEENT: Extraocular movements are intact, pupils are equal and round, mucous membranes moist. Cardiovascular: Heart has regular rate and rhythm, no murmur appreciated. Respiratory: Respirations even and unlabored, no rales or wheezing. Gastrointestinal: Normoactive bowel sounds in all 4 quadrants, abdomen soft, nontender on palpation, no masses appreciated. Extremities: No clubbing, cyanosis or edema to bilateral lower extremities. Peripheral pulses intact bilaterally. Objective Objective Clinical Data: Vital Signs Temperature 36.3 C L 01/01/19 07:40 Temperature Source Tympanic 01/01/19 07:40 Pulse 79 01/01/19 07:40 Pulse Rhythm Regular 01/01/19 08:30 Respiratory Rate 18 01/01/19 07:40 Respiratory Effort Non-Labored 01/01/19 08:30 Respiratory Depth Normal 01/01/19 08:30 Respiratory Pattern Normal 01/01/19 08:30 Blood Pressure 130/68 01/01/19 07:40 Pulse Oximetry 94 L 01/01/19 07:40 Oxygen Delivery Method Room Air 01/01/19 07:40 Oxygen Flow Rate 0 01/01/19 07:40 Pain Level 5 12/31/18 08:35 Comment 12/31/18 09:23 Intake & Output 12/31/18 01/01/19 01/01/19 23:59 11:59 23:59 Intake Total 1107.833 / 1587.833 760 / 760 Balance 1107.833 / 1587.833 760 / 760 Intake: IV 627.833 / 1107.833 40 / 40 Oral 480 / 480 720 / 720 Other: Comment patient voiding independently in the toilet voiding in urinal and toilet independently Voiding Methods Toilet Toilet Laboratory Results WBC 5.06 k/cumm (4.4-10.8) 12/31/18 06:20 RBC 3.33 m/cumm (4.50-6.00) L 12/31/18 06:20 Hgb 8.8 g/dL (13.5-17.5) L 12/31/18 06:20 Hct 28.4 % (40.0-50.0) L 12/31/18 06:20 MCV 85.3 fL (80-95) 12/31/18 06:20 MCH 26.4 pg (27.0-33.0) L 12/31/18 06:20 MCHC 31.0 g/dL (32.0-36.0) L 12/31/18 06:20 RDW 15.6 % (11.8-14.1) H 12/31/18 06:20 Plt Count 334 x1000/uL (130-400) 12/31/18 06:20 MPV 9.9 fL (8.0-11.0) 12/31/18 06:20 Immature Gran % 0.2 12/16/18 06:46 Neutrophils % 65.8 12/16/18 06:46 Lymphocytes % 22.0 12/16/18 06:46 Monocytes % 10.6 12/16/18 06:46 Eosinophils % 1.4 12/16/18 06:46 Basophils % 0.0 12/16/18 06:46 Absolute Neutrophils 5.85 k/cumm (1.2-6.7) 12/16/18 06:46 Absolute Lymphocytes 1.95 k/cumm (1.2-3.4) 12/16/18 06:46 Absolute Monocytes 0.94 k/cumm (0.11-0.7) H 12/16/18 06:46 Absolute Eosinophils 0.12 k/cumm (0.0-0.7) 12/16/18 06:46 Absolute Basophils 0.00 k/cumm (0.0-0.2) 12/16/18 06:46 Sodium 141 mmol/L (136-145) 12/31/18 06:20 Potassium 4.4 mmol/L (3.5-5.1) 12/31/18 06:20 Chloride 106 mmol/L (98-107) 12/31/18 06:20 Carbon Dioxide 27.7 mmol/L (21.0-32.0) 12/31/18 06:20 Anion Gap 7.3 mmol/L (3-11) 12/31/18 06:20 BUN 20 mg/dL (7-18) H 12/31/18 06:20 Creatinine 0.82 mg/dL (0.70-1.30) 12/31/18 06:20 Estimated GFR/1.73 m2 >= 60.00 (mL/min/1.73m2) 12/31/18 06:20 Glucose 78 mg/dL (70-100) 12/31/18 06:20 Calcium 8.5 mg/dL (8.5-10.1) 12/31/18 06:20 Iron 15 ug/dL (50-175) L 12/16/18 06:46 TIBC 234 ug/dL (250-450) L 12/16/18 06:46 Transferrin % Sat 6 % (20-55) L 12/16/18 06:46 Ferritin 42 ng/mL (8-388) 12/16/18 06:46 Total Bilirubin 0.2 mg/dL (0.2-1.0) 12/31/18 06:20 AST 12 U/L (15-37) L 12/31/18 06:20 ALT 15 U/L (12-78) 12/31/18 06:20 Alkaline Phosphatase 82 U/L (46-116) 12/31/18 06:20 Total Protein 6.1 g/dL (6.4-8.2) L 12/31/18 06:20 Albumin 2.8 g/dL (3.4-5.0) L 12/31/18 06:20 Triglycerides 86 mg/dL (30-150) 12/18/18 06:35 Total Cholesterol 104 mg/dL (50-200) 12/18/18 06:35 LDL Cholesterol Direct 49 mg/dL (<100) 12/18/18 06:35 HDL Cholesterol 40 mg/dL (40-60) 12/18/18 06:35 Vitamin B12 284 pg/mL (193-986) 12/16/18 06:46 Folate 9.5 ng/mL (8.6-20.0) 12/16/18 06:46 Vancomycin Trough 18.8 ug/mL (10.0-20.0) 12/30/18 13:00 Documented by User: Drake Herrera MD 01/12/19 17:31
[2019-01-01 15:22] VITALS: BP 123/74; PULSE 93; RESP 18; TEMP 36; O2SAT 95
[2019-01-01 16:00] VITALS: O2SAT 95
[2019-01-01 16:51] LABS: CREATININE 1.06 mg/dL (0.70-1.30)
[2019-01-01 16:58] LABS: Vancomycin, Trough 18.2 ug/mL (10.0-20.0)
[2019-01-01 22:00] VITALS: BP 155/72; PULSE 87; RESP 18; TEMP 36.1; O2SAT 97
[2019-01-01] MEDS: metFORMIN 500 MG TAB 1000 MG PO (22:29)
[2019-01-02] MEDS: VANCOMYCIN 1,000 MG in Normal Saline 250 ML 167 ML IVPB ×3 (02:38→22:54)
[2019-01-02] MEDS: Normal Saline Flush 10 ML SYR IVP ×2 (04:41→11:53)
[2019-01-02] MEDS: metroNIDAZOLE 500 MG TAB PO ×3 (06:40→22:04)
[2019-01-02] MEDS: metFORMIN 500 MG TAB 1500 MG PO (07:23)
[2019-01-02] MEDS: Aspirin E.C. 325 MG TABEC PO (07:23)
[2019-01-02] MEDS: Insulin Glargine 300 UNITS/3 ML PEN 16 UNITS SC (07:25)
[2019-01-02] MEDS: Normal Saline Flush 10 ML SYR 20 ML IVP ×2 (07:26→22:07)
[2019-01-02 08:11] VITALS: BP 120/68; PULSE 84; RESP 20; TEMP 35.6; O2SAT 93
[2019-01-02] MEDS: Pantoprazole 40 MG TABCR PO (08:29)
[2019-01-02] MEDS: CEFEPIME 2 GM in Normal Saline 100 ML IVPB ×2 (09:30→22:06)
[2019-01-02] MEDS: Acetaminophen 325 MG TAB 650 MG PO (09:38)
[2019-01-02] MEDS: traMADol 50 MG TAB 25 MG PO (10:59)
[2019-01-02 11:05] LABS: Bilirubin Negative (Negative); Blood Negative (Negative); Clarity Clear; Glucose Negative (Negative); Ketones Negative (Negative); Leukocyte Esterase Trace (Negative); Nitrite Negative (Negative); Urobilinogen 0.2 EU/dL (Up TO 0.2); pH 5.5 (5-8)
[2019-01-02 11:24] LABS: Bacteria Negative HPF (Negative); C & S Indicated? No; Casts Negative LPF (Negative); Crystals Negative HPF (Negative); Epithelial Cells Negative HPF (Negative); Mucus Negative (Negative); Other Cells Negative (Negative); RBC Negative (0-2); WBC Negative HPF (0-5)
[2019-01-02 15:40] VITALS: O2SAT 96
[2019-01-02 15:59] VITALS: BP 119/69; PULSE 87; RESP 17; TEMP 36.4; O2SAT 96
[2019-01-02] MEDS: Insulin Aspart 300 UNITS/3 ML PEN SC (17:08)
[2019-01-02] MEDS: metFORMIN 500 MG TAB 1000 MG PO (22:04)
[2019-01-02] MEDS: Normal Saline 500 ML 200 ML IV (22:06)
[2019-01-03 00:11] VITALS: BP 124/70; PULSE 89; RESP 17; TEMP 36.7; O2SAT 94
[2019-01-03] MEDS: Normal Saline Flush 10 ML SYR IVP ×3 (00:31→21:14)
[2019-01-03] MEDS: metroNIDAZOLE 500 MG TAB PO ×3 (05:53→21:21)
[2019-01-03] MEDS: traMADol 50 MG TAB 25 MG PO (06:08)
[2019-01-03 07:35] VITALS: BP 127/81; PULSE 82; RESP 16; TEMP 36; O2SAT 92
[2019-01-03] MEDS: Aspirin E.C. 325 MG TABEC PO (08:16)
[2019-01-03] MEDS: metFORMIN 500 MG TAB 1500 MG PO (08:16)
[2019-01-03] MEDS: Pantoprazole 40 MG TABCR PO (08:17)
[2019-01-03] MEDS: Normal Saline Flush 10 ML SYR 20 ML IVP ×2 (08:17→19:32)
[2019-01-03] MEDS: Insulin Glargine 300 UNITS/3 ML PEN 16 UNITS SC (08:19)
[2019-01-03] MEDS: VANCOMYCIN 1,000 MG in Normal Saline 250 ML 167 ML IVPB ×2 (08:33→17:51)
[2019-01-03] MEDS: CEFEPIME 2 GM in Normal Saline 100 ML IVPB ×2 (10:29→21:14)
[2019-01-03 10:35] VITALS: O2SAT 93
[2019-01-03] MEDS: Acetaminophen 325 MG TAB 650 MG PO ×2 (14:25→21:21)
[2019-01-03 16:07] VITALS: BP 135/74; PULSE 87; RESP 17; TEMP 36.4; O2SAT 98
[2019-01-03] MEDS: Normal Saline 500 ML IV (17:50)
[2019-01-03] MEDS: metFORMIN 500 MG TAB 1000 MG PO (21:19)
[2019-01-03 23:35] VITALS: BP 131/69; PULSE 94; RESP 17; TEMP 36.2; O2SAT 95
[2019-01-04] MEDS: VANCOMYCIN 1,000 MG in Normal Saline 250 ML 167 ML IVPB ×2 (04:22→13:36)
[2019-01-04] MEDS: metroNIDAZOLE 500 MG TAB PO ×3 (06:32→22:13)
[2019-01-04] MEDS: Acetaminophen 325 MG TAB 650 MG PO ×2 (07:03→10:24)
[2019-01-04 07:35] VITALS: BP 124/80; PULSE 79; RESP 20; TEMP 36.3; O2SAT 97
[2019-01-04] MEDS: Normal Saline Flush 10 ML SYR 20 ML IVP ×2 (08:02→20:27)
[2019-01-04] MEDS: Insulin Glargine 300 UNITS/3 ML PEN 16 UNITS SC (08:02)
[2019-01-04] MEDS: Aspirin E.C. 325 MG TABEC PO (08:03)
[2019-01-04] MEDS: Pantoprazole 40 MG TABCR PO (08:03)
[2019-01-04] MEDS: metFORMIN 500 MG TAB 1500 MG PO (08:03)
[2019-01-04 08:05] VITALS: O2SAT 97
[2019-01-04] MEDS: CEFEPIME 2 GM in Normal Saline 100 ML IVPB ×2 (09:46→22:13)
[2019-01-04] MEDS: traMADol 50 MG TAB 25 MG PO (10:28)
[2019-01-04] MEDS: Normal Saline Flush 10 ML SYR IVP ×2 (13:09→22:16)
[2019-01-04 15:54] VITALS: BP 140/80; PULSE 82; RESP 17; TEMP 36.2; O2SAT 95
--- NOTE | 2019-01-04 16:18 | W.PM.PROGNOT ---
Date of Service Date of service: 01/04/19 Time of Service: 16:18 Subjective Interval history since last seen: Pt appeared to be more tired today. Pt states that sleeping helps his pain, when asked about pain he states it is everywhere just general. He wakes up with it in the am, goes back to sleep and when he wakes up later morning early afternoon pain is gone. When asked what else helps with his pain he states ambulating around helps and by afternoon pain is usually gone. He was encouraged to get up in the morning and move around help pain. When asked if he was feeling sad or depressed he states no not at all. When asked about going outside he states oh yeah I did that yesterday I like doing that; I also pace back and forth in my room. If he is encouraged to walk when having pain vs sleeping this will be more helpful for mood as well as pain. He does not appear depressed and is awake and alert at this time. He states he is sleeping well at night. Objective Objective Clinical Data: Vital Signs Temperature 36.2 C L 01/04/19 15:54 Temperature Source Tympanic 01/04/19 15:54 Pulse 82 01/04/19 15:54 Pulse Rhythm Regular 01/04/19 12:48 Respiratory Rate 17 01/04/19 15:54 Respiratory Effort Non-Labored 01/04/19 12:48 Respiratory Depth Normal 01/04/19 12:48 Respiratory Pattern Normal 01/04/19 12:48 Blood Pressure 140/80 01/04/19 15:54 Pulse Oximetry 95 01/04/19 15:54 Oxygen Delivery Method Room Air 01/04/19 15:54 Oxygen Flow Rate 0 01/04/19 15:54 Pain Level 5 01/04/19 10:28 Comment 12/31/18 09:23 Intake & Output 01/03/19 01/04/19 01/04/19 23:59 11:59 23:59 Intake Total 1371.183 / 2501.183 1533.333 / 2002.333 470 / 2002.333 Output Total 550 / 550 700 / 700 Balance 821.183 / 1951.183 833.333 / 1303.333 470 / 1303.333 Intake: IV 411.183 / 1031.183 483.333 / 503.333 20 / 503.333 Oral 960 / 1470 1050 / 1500 450 / 1500 Output: Urine 550 / 550 700 / 700 Other: Urine Color Yellow Light Vandana Thurston Urine Appearance Clear Clear Clear Urine Odor Normal Comment pt voiding independently in the bathroom pt voiding in toilet; urine not assessed at this time Voiding Methods Urinal Urinal Laboratory Results WBC 5.06 k/cumm (4.4-10.8) 12/31/18 06:20 RBC 3.33 m/cumm (4.50-6.00) L 12/31/18 06:20 Hgb 8.8 g/dL (13.5-17.5) L 12/31/18 06:20 Hct 28.4 % (40.0-50.0) L 12/31/18 06:20 MCV 85.3 fL (80-95) 12/31/18 06:20 MCH 26.4 pg (27.0-33.0) L 12/31/18 06:20 MCHC 31.0 g/dL (32.0-36.0) L 12/31/18 06:20 RDW 15.6 % (11.8-14.1) H 12/31/18 06:20 Plt Count 334 x1000/uL (130-400) 12/31/18 06:20 MPV 9.9 fL (8.0-11.0) 12/31/18 06:20 Immature Gran % 0.2 12/16/18 06:46 Neutrophils % 65.8 12/16/18 06:46 Lymphocytes % 22.0 12/16/18 06:46 Monocytes % 10.6 12/16/18 06:46 Eosinophils % 1.4 12/16/18 06:46 Basophils % 0.0 12/16/18 06:46 Absolute Neutrophils 5.85 k/cumm (1.2-6.7) 12/16/18 06:46 Absolute Lymphocytes 1.95 k/cumm (1.2-3.4) 12/16/18 06:46 Absolute Monocytes 0.94 k/cumm (0.11-0.7) H 12/16/18 06:46 Absolute Eosinophils 0.12 k/cumm (0.0-0.7) 12/16/18 06:46 Absolute Basophils 0.00 k/cumm (0.0-0.2) 12/16/18 06:46 Sodium 141 mmol/L (136-145) 12/31/18 06:20 Potassium 4.4 mmol/L (3.5-5.1) 12/31/18 06:20 Chloride 106 mmol/L (98-107) 12/31/18 06:20 Carbon Dioxide 27.7 mmol/L (21.0-32.0) 12/31/18 06:20 Anion Gap 7.3 mmol/L (3-11) 12/31/18 06:20 BUN 20 mg/dL (7-18) H 12/31/18 06:20 Creatinine 1.06 mg/dL (0.70-1.30) 01/01/19 16:30 Estimated GFR/1.73 m2 >= 60.00 (mL/min/1.73m2) 01/01/19 16:30 Glucose 78 mg/dL (70-100) 12/31/18 06:20 Calcium 8.5 mg/dL (8.5-10.1) 12/31/18 06:20 Iron 15 ug/dL (50-175) L 12/16/18 06:46 TIBC 234 ug/dL (250-450) L 12/16/18 06:46 Transferrin % Sat 6 % (20-55) L 12/16/18 06:46 Ferritin 42 ng/mL (8-388) 12/16/18 06:46 Total Bilirubin 0.2 mg/dL (0.2-1.0) 12/31/18 06:20 AST 12 U/L (15-37) L 12/31/18 06:20 ALT 15 U/L (12-78) 12/31/18 06:20 Alkaline Phosphatase 82 U/L (46-116) 12/31/18 06:20 Total Protein 6.1 g/dL (6.4-8.2) L 12/31/18 06:20 Albumin 2.8 g/dL (3.4-5.0) L 12/31/18 06:20 Triglycerides 86 mg/dL (30-150) 12/18/18 06:35 Total Cholesterol 104 mg/dL (50-200) 12/18/18 06:35 LDL Cholesterol Direct 49 mg/dL (<100) 12/18/18 06:35 HDL Cholesterol 40 mg/dL (40-60) 12/18/18 06:35 Vitamin B12 284 pg/mL (193-986) 12/16/18 06:46 Folate 9.5 ng/mL (8.6-20.0) 12/16/18 06:46 Urine Color Yellow (Yellow) 01/02/19 10:55 Urine Clarity Clear 01/02/19 10:55 Urine pH 5.5 (5-8) 01/02/19 10:55 Ur Specific [place] 1.020 (1.005-1.025) 01/02/19 10:55 Urine Protein Negative mg/dL (Negative) 01/02/19 10:55 Urine Ketones Negative mg/dL (Negative) 01/02/19 10:55 Urine Blood Negative (Negative) 01/02/19 10:55 Urine Nitrite Negative (Negative) 01/02/19 10:55 Urine Bilirubin Negative (Negative) 01/02/19 10:55 Urine Urobilinogen 0.2 EU/dL (Up TO 0.2) 01/02/19 10:55 Ur Leukocyte Esterase Trace (Negative) H 01/02/19 10:55 Urine RBC Negative (0-2) 01/02/19 10:55 Urine WBC Negative HPF (0-5) 01/02/19 10:55 Ur Epithelial Cells Negative HPF (Negative) 01/02/19 10:55 Urine Crystals Negative HPF (Negative) 01/02/19 10:55 Urine Bacteria Negative HPF (Negative) 01/02/19 10:55 Urine Casts Negative LPF (Negative) 01/02/19 10:55 Urine Mucus Negative (Negative) 01/02/19 10:55 Urine Other Negative (Negative) 01/02/19 10:55 Ur Culture Indicated? No 01/02/19 10:55 Urine Glucose Negative mg/dL (Negative) 01/02/19 10:55 Vancomycin Trough 18.2 ug/mL (10.0-20.0) 01/01/19 16:30
[2019-01-04] MEDS: metFORMIN 500 MG TAB 1000 MG PO (22:13)
[2019-01-05] MEDS: VANCOMYCIN 1,000 MG in Normal Saline 250 ML 167 ML IVPB ×3 (00:20→19:37)
[2019-01-05 00:27] VITALS: BP 137/84; PULSE 86; RESP 17; TEMP 36.2; O2SAT 96
[2019-01-05] MEDS: metroNIDAZOLE 500 MG TAB PO ×3 (05:59→21:24)
[2019-01-05 07:40] VITALS: BP 122/78; PULSE 76; RESP 18; TEMP 36.4; O2SAT 94
[2019-01-05] MEDS: metFORMIN 500 MG TAB 1500 MG PO (08:09)
[2019-01-05] MEDS: Pantoprazole 40 MG TABCR PO (08:09)
[2019-01-05] MEDS: Acetaminophen 325 MG TAB 650 MG PO (08:09)
[2019-01-05] MEDS: Aspirin E.C. 325 MG TABEC PO (08:09)
[2019-01-05] MEDS: Normal Saline Flush 10 ML SYR 20 ML IVP ×2 (08:10→19:37)
[2019-01-05] MEDS: traMADol 50 MG TAB 25 MG PO (08:10)
[2019-01-05] MEDS: Insulin Glargine 300 UNITS/3 ML PEN 16 UNITS SC (08:11)
[2019-01-05] MEDS: Normal Saline 500 ML 30 ML IV (09:28)
[2019-01-05] MEDS: CEFEPIME 2 GM in Normal Saline 100 ML IVPB ×2 (09:28→21:24)
[2019-01-05 09:54] LABS: CREATININE 0.89 mg/dL (0.70-1.30); Vancomycin, Trough 16.5 ug/mL (10.0-20.0)
--- NOTE | 2019-01-05 12:40 | DI.US_ITS ---
SYMPTOMS/DIAGNOSIS: LUNG ABSCESS, NO RETURN FROM PICC LINE, ? DVT RIGHT UPPER EXTREMITY ULTRASOUND: The right upper extremity was evaluated sonographically. The visualized portions of the right jugular vein are patent with normal blood flow and augmentation. The visualized right subclavian vein is unremarkable. The axillary vein appears patent. There is hypoechoic thrombus seen in the right basilic vein. The right cephalic and brachial veins show normal compression, augmentation and color flow. There is a PICC line seen in the right upper extremity. Visualized portions are present in the basilic and subclavian veins. IMPRESSION: 1. Thrombus visualized in the right basilic vein. 2. Right PICC line present.
--- NOTE | 2019-01-05 13:18 | DI.RAD_ITS ---
SYMPTOMS/DIAGNOSIS: LUNG ABSCESS, CONFIRM LOCATION OF PICC LINE CHEST X-RAY: Single AP view of the chest. Comparison is 12/05/18. The heart size and pulmonary vasculature are within normal limits. There has been interval decrease in the opacity in the right lung base. No new infiltrates, effusions or pneumothoraces are identified. There is a right PICC line present, the tip of the catheter is seen in good position in the superior vena cava. IMPRESSION: 1. Interval placement of a right PICC line, the tip of the catheter is in good position in the superior vena cava. 2. Improvement in the opacity in the right lung base compared to 12/05/18.
--- NOTE | 2019-01-05 15:55 | PGE_ITS ---
Date of Service Date of service: 01/05/19 Time of Service: 15:49 Assessment and Plan (1) Acute thrombosis of right basilic vein: Current visit: Yes Status: Acute Associated with a PICC line. PICC line needs to be removed, but other access needs to be established prior (anesthesia is consulted for a midline). After new IV access established, needs to have the PICC line pulled, but this is not emergent as long as the patient is on therapeutic anticoagulation. This will be initiated the moment alternative IV access is established. Midline is preferred to PIV as the patient is on vancomycin and cefepime IV. (2) Complication associated with peripherally inserted central catheter (PICC): Current visit: Yes Status: Acute As above (3) Cavitary pneumonia: Current visit: Yes Status: Acute Stable. Continue Cefepime 2 gm IV Q12h, vancomycin 1.5 gm IV q12 hr, Flagyl 500 mg po q8hr through 01/16/2019. Repeat CT chest the week of 01/12/2019. ID follow up is for 01/27/2019 at 13:15 with [facility] De La Torre at [facility] (4) Bacteremia: Current visit: No Status: Acute Cx with Strep spp, Enterococcus faecium, MRSA, As above. Repeat blood cultures negative (12/05/18). TTE negative for endocarditis. Continue above abx. (5) Non-insulin dependent type 2 diabetes mellitus: Current visit: Yes Status: Acute Continue home oral diabetic meds including metformin and Actos as well as basal bolus insulin. (6) Hypertension: Current visit: Yes Status: Chronic Blood pressure controlled. No change in tx. (7) Schizo affective schizophrenia: Current visit: Yes Status: Acute Stable. Continue his home clozaril and Geodon. (8) Normocytic anemia: Current visit: No Status: Acute H&H stable, improved. Continue to monitor weekly labs. Continue PPI for GI protection. (9) Pain: Current visit: Yes Status: Acute Improved, continue to hold statin. Continue acetaminophen and tramadol for pain control. Subjective Interval history since last seen: Nursing noted that the patient cannot get any blood return from either of the two PICC line lumens this am. His PICC line is in the R basilic vein. It was placed on 12/18. His US venous of RUE revealed an extensive basilic vein thrombus, but the subclavian vein does not have a clot. The patient denies dizziness, chest pain, shortness of breath, nausea, vomiting. Exam Narrative Exam Narrative: General: very pleasant middle aged male, sitting up in bed HEENT: EOMI, MMM Heart: RRR, no m/r/g Lungs: CTAB/diminished GI: abdomen is soft, nontender, nondistended Extremities: RUE PICC line in place; I do not know any erythema; there is questionable edema at the site. BLE's without edema, clubbing, or cyanosis. Objective Objective Clinical Data: Vital Signs Temperature 36.4 C L 01/05/19 07:40 Temperature Source Tympanic 01/05/19 07:40 Pulse 76 01/05/19 07:40 Pulse Rhythm Regular 01/05/19 08:30 Respiratory Rate 18 01/05/19 07:40 Respiratory Effort Non-Labored 01/05/19 08:30 Respiratory Depth Normal 01/05/19 08:30 Respiratory Pattern Normal 01/05/19 08:30 Blood Pressure 122/78 01/05/19 07:40 Pulse Oximetry 94 L 01/05/19 07:40 Oxygen Delivery Method Room Air 01/05/19 07:40 Oxygen Flow Rate 0 01/05/19 07:40 Pain Level 4 01/05/19 09:09 Comment 12/31/18 09:23 Intake & Output 01/04/19 01/05/19 01/05/19 23:59 11:59 23:59 Intake Total 1500 / 3033.333 1250 / 1 821 / 2071 Output Total 450 / 1150 Balance 1050 / 6897.037 0663 / 1 821 / 2071 Intake: IV 390 / 873.333 290 / 741 451 / 741 Oral 1110 / 2160 960 / 1330 370 / 1330 Output: Urine 450 / 1150 Other: Urine Color Yellow Urine Appearance Clear Clear Urine Odor None Comment pt gets up AD VAZQUEZ to void. Pt voids ind. Voiding Methods Toilet Laboratory Results WBC 5.06 k/cumm (4.4-10.8) 12/31/18 06:20 RBC 3.33 m/cumm (4.50-6.00) L 12/31/18 06:20 Hgb 8.8 g/dL (13.5-17.5) L 12/31/18 06:20 Hct 28.4 % (40.0-50.0) L 12/31/18 06:20 MCV 85.3 fL (80-95) 12/31/18 06:20 MCH 26.4 pg (27.0-33.0) L 12/31/18 06:20 MCHC 31.0 g/dL (32.0-36.0) L 12/31/18 06:20 RDW 15.6 % (11.8-14.1) H 12/31/18 06:20 Plt Count 334 x1000/uL (130-400) 12/31/18 06:20 MPV 9.9 fL (8.0-11.0) 12/31/18 06:20 Immature Gran % 0.2 12/16/18 06:46 Neutrophils % 65.8 12/16/18 06:46 Lymphocytes % 22.0 12/16/18 06:46 Monocytes % 10.6 12/16/18 06:46 Eosinophils % 1.4 12/16/18 06:46 Basophils % 0.0 12/16/18 06:46 Absolute Neutrophils 5.85 k/cumm (1.2-6.7) 12/16/18 06:46 Absolute Lymphocytes 1.95 k/cumm (1.2-3.4) 12/16/18 06:46 Absolute Monocytes 0.94 k/cumm (0.11-0.7) H 12/16/18 06:46 Absolute Eosinophils 0.12 k/cumm (0.0-0.7) 12/16/18 06:46 Absolute Basophils 0.00 k/cumm (0.0-0.2) 12/16/18 06:46 Sodium 141 mmol/L (136-145) 12/31/18 06:20 Potassium 4.4 mmol/L (3.5-5.1) 12/31/18 06:20 Chloride 106 mmol/L (98-107) 12/31/18 06:20 Carbon Dioxide 27.7 mmol/L (21.0-32.0) 12/31/18 06:20 Anion Gap 7.3 mmol/L (3-11) 12/31/18 06:20 BUN 20 mg/dL (7-18) H 12/31/18 06:20 Creatinine 0.89 mg/dL (0.70-1.30) 01/05/19 09:30 Estimated GFR/1.73 m2 >= 60.00 (mL/min/1.73m2) 01/05/19 09:30 Glucose 78 mg/dL (70-100) 12/31/18 06:20 Calcium 8.5 mg/dL (8.5-10.1) 12/31/18 06:20 Iron 15 ug/dL (50-175) L 12/16/18 06:46 TIBC 234 ug/dL (250-450) L 12/16/18 06:46 Transferrin % Sat 6 % (20-55) L 12/16/18 06:46 Ferritin 42 ng/mL (8-388) 12/16/18 06:46 Total Bilirubin 0.2 mg/dL (0.2-1.0) 12/31/18 06:20 AST 12 U/L (15-37) L 12/31/18 06:20 ALT 15 U/L (12-78) 12/31/18 06:20 Alkaline Phosphatase 82 U/L (46-116) 12/31/18 06:20 Total Protein 6.1 g/dL (6.4-8.2) L 12/31/18 06:20 Albumin 2.8 g/dL (3.4-5.0) L 12/31/18 06:20 Triglycerides 86 mg/dL (30-150) 12/18/18 06:35 Total Cholesterol 104 mg/dL (50-200) 12/18/18 06:35 LDL Cholesterol Direct 49 mg/dL (<100) 12/18/18 06:35 HDL Cholesterol 40 mg/dL (40-60) 12/18/18 06:35 Vitamin B12 284 pg/mL (193-986) 12/16/18 06:46 Folate 9.5 ng/mL (8.6-20.0) 12/16/18 06:46 Urine Color Yellow (Yellow) 01/02/19 10:55 Urine Clarity Clear 01/02/19 10:55 Urine pH 5.5 (5-8) 01/02/19 10:55 Ur Specific [place] 1.020 (1.005-1.025) 01/02/19 10:55 Urine Protein Negative mg/dL (Negative) 01/02/19 10:55 Urine Ketones Negative mg/dL (Negative) 01/02/19 10:55 Urine Blood Negative (Negative) 01/02/19 10:55 Urine Nitrite Negative (Negative) 01/02/19 10:55 Urine Bilirubin Negative (Negative) 01/02/19 10:55 Urine Urobilinogen 0.2 EU/dL (Up TO 0.2) 01/02/19 10:55 Ur Leukocyte Esterase Trace (Negative) H 01/02/19 10:55 Urine RBC Negative (0-2) 01/02/19 10:55 Urine WBC Negative HPF (0-5) 01/02/19 10:55 Ur Epithelial Cells Negative HPF (Negative) 01/02/19 10:55 Urine Crystals Negative HPF (Negative) 01/02/19 10:55 Urine Bacteria Negative HPF (Negative) 01/02/19 10:55 Urine Casts Negative LPF (Negative) 01/02/19 10:55 Urine Mucus Negative (Negative) 01/02/19 10:55 Urine Other Negative (Negative) 01/02/19 10:55 Ur Culture Indicated? No 01/02/19 10:55 Urine Glucose Negative mg/dL (Negative) 01/02/19 10:55 Vancomycin Trough 16.5 ug/mL (10.0-20.0) 01/05/19 09:30
[2019-01-05 16:00] VITALS: BP 150/78; PULSE 91; RESP 21; TEMP 36.4; O2SAT 95
[2019-01-05 16:08] LABS: Abs Immature Grans 0.02 k/cumm (0.0-0.09); Absolute Eosinophil Count 0.09 k/cumm (0.0-0.7); Absolute Lymphocyte Count 1.35 k/cumm (1.2-3.4); Absolute Monocyte Count 0.74 k/cumm (0.11-0.7); Absolute Neutrophil Count 3.84 k/cumm (1.2-6.7); Eosinophils % 1.5; HCT 30.4 % (40.0-50.0); HGB 9.4 g/dL (13.5-17.5); Immature Grans % 0.3; Lymphocytes % 22.4; Mean Corp. HGB Concentration 30.9 g/dL (32.0-36.0); Mean Corpuscular Hemoglobin 26.4 pg (27.0-33.0); Mean Corpuscular Volume 85.4 fL (80-95); Mean Platelet Volume 9.2 fL (8.0-11.0); Monocytes % 12.3; Neutrophils % 63.5; Platelet Count 309 x1000/uL (130-400); RBC 3.56 m/cumm (4.50-6.00); White Blood Cell Count 6.04 k/cumm (4.4-10.8)
[2019-01-05 16:23] LABS: BUN 17 mg/dL (7-18); Calcium 8.8 mg/dL (8.5-10.1); Chloride 107 mmol/L (98-107); Glucose 95 mg/dL (70-100); Potassium 4.7 mmol/L (3.5-5.1); Sodium 142 mmol/L (136-145)
[2019-01-05 16:47] LABS: Diff Comment Agrees w/ Instrument
[2019-01-05 16:48] LABS: Hypochromasia 2+
[2019-01-05] MEDS: Enoxaparin 60 MG/0.6 ML SYR SC (18:37)
[2019-01-05] MEDS: Insulin Aspart 300 UNITS/3 ML PEN SC (21:24)
[2019-01-05] MEDS: metFORMIN 500 MG TAB 1000 MG PO (21:24)
[2019-01-06] VITALS: BP 133/78; PULSE 86; TEMP 37.2; O2SAT 96
[2019-01-06] MEDS: metroNIDAZOLE 500 MG TAB PO ×3 (06:02→21:22)
[2019-01-06] MEDS: Enoxaparin 60 MG/0.6 ML SYR SC ×2 (06:02→17:41)
[2019-01-06] MEDS: Normal Saline Flush 10 ML SYR IVP ×2 (06:03→16:17)
[2019-01-06] MEDS: VANCOMYCIN 1,000 MG in Normal Saline 250 ML 167 ML IVPB ×2 (06:03→16:15)
[2019-01-06 07:30] LABS: ALT 15 U/L (12-78); AST 10 U/L (15-37); Albumin 2.8 g/dL (3.4-5.0); Alkaline Phosphatase 81 U/L (46-116); Anion Gap 6.5 mmol/L (3-11); BUN 18 mg/dL (7-18); Bilirubin, Total 0.2 mg/dL (0.2-1.0); CO2 28.5 mmol/L (21.0-32.0); CREATININE 0.69 mg/dL (0.70-1.30); Calcium 8.1 mg/dL (8.5-10.1); Chloride 107 mmol/L (98-107); Glucose 83 mg/dL (70-100); Sodium 142 mmol/L (136-145); Total Protein 5.9 g/dL (6.4-8.2)
[2019-01-06 07:35] VITALS: BP 154/88; PULSE 75; RESP 18; TEMP 36.1; O2SAT 95
[2019-01-06 07:36] LABS: HCT 28.8 % (40.0-50.0); HGB 8.9 g/dL (13.5-17.5); Mean Corp. HGB Concentration 30.9 g/dL (32.0-36.0); Mean Corpuscular Hemoglobin 26.5 pg (27.0-33.0); Mean Corpuscular Volume 85.7 fL (80-95); Mean Platelet Volume 9.6 fL (8.0-11.0); Platelet Count 315 x1000/uL (130-400); RBC 3.36 m/cumm (4.50-6.00); RBC Distribution Width 16.1 % (11.8-14.1); White Blood Cell Count 6.29 k/cumm (4.4-10.8)
[2019-01-06] MEDS: metFORMIN 500 MG TAB 1500 MG PO (08:45)
[2019-01-06] MEDS: Acetaminophen 325 MG TAB 650 MG PO (08:45)
[2019-01-06] MEDS: Aspirin E.C. 325 MG TABEC PO (08:46)
[2019-01-06] MEDS: Pantoprazole 40 MG TABCR PO (08:46)
[2019-01-06] MEDS: Insulin Glargine 300 UNITS/3 ML PEN 16 UNITS SC (08:46)
[2019-01-06] MEDS: CEFEPIME 2 GM in Normal Saline 100 ML IVPB ×2 (09:36→21:20)
[2019-01-06] MEDS: Insulin Aspart 300 UNITS/3 ML PEN SC ×2 (12:19→21:18)
[2019-01-06] MEDS: Bacitracin 1 PACKET (12:33)
[2019-01-06 16:18] VITALS: BP 122/77; PULSE 94; RESP 20; TEMP 36.8; O2SAT 97
[2019-01-06] MEDS: Normal Saline Flush 10 ML SYR 20 ML IVP (20:22)
[2019-01-06] MEDS: metFORMIN 500 MG TAB 1000 MG PO (21:21)
[2019-01-07] MEDS: Normal Saline Flush 10 ML SYR IVP ×2 (01:55→17:59)
[2019-01-07] MEDS: VANCOMYCIN 1,000 MG in Normal Saline 250 ML 167 ML IVPB ×3 (01:55→22:12)
[2019-01-07 02:00] VITALS: BP 155/83; PULSE 77; RESP 17; TEMP 36.5; O2SAT 97
[2019-01-07] MEDS: Enoxaparin 60 MG/0.6 ML SYR SC ×2 (05:57→17:58)
[2019-01-07] MEDS: metroNIDAZOLE 500 MG TAB PO ×3 (05:57→21:26)
[2019-01-07 07:30] VITALS: BP 160/84; PULSE 84; RESP 18; TEMP 36.3; O2SAT 95
[2019-01-07] MEDS: Acetaminophen 325 MG TAB 650 MG PO ×2 (07:46→15:40)
[2019-01-07] MEDS: Pantoprazole 40 MG TABCR PO (07:47)
[2019-01-07] MEDS: Aspirin E.C. 325 MG TABEC PO (07:47)
[2019-01-07] MEDS: metFORMIN 500 MG TAB 1500 MG PO (07:47)
[2019-01-07] MEDS: Insulin Glargine 300 UNITS/3 ML PEN 16 UNITS SC (07:47)
[2019-01-07] MEDS: Normal Saline Flush 10 ML SYR 20 ML IVP ×2 (09:20→19:46)
[2019-01-07] MEDS: CEFEPIME 2 GM in Normal Saline 100 ML IVPB ×2 (10:28→21:25)
[2019-01-07] MEDS: Insulin Aspart 300 UNITS/3 ML PEN SC ×2 (11:50→21:28)
[2019-01-07] MEDS: traMADol 50 MG TAB 25 MG PO (13:46)
[2019-01-07 16:53] VITALS: BP 136/82; PULSE 87; RESP 20; TEMP 36.6; O2SAT 99
[2019-01-07 18:35] VITALS: O2SAT 96
[2019-01-07 20:40] VITALS: BP 152/88; PULSE 87; RESP 18; TEMP 36.6; O2SAT 96
[2019-01-07] MEDS: Normal Saline 500 ML 30 ML IV (21:25)
[2019-01-07] MEDS: metFORMIN 500 MG TAB 1000 MG PO (21:26)
[2019-01-07 23:22] VITALS: O2SAT 96
[2019-01-08] MEDS: metroNIDAZOLE 500 MG TAB PO ×3 (05:30→22:45)
[2019-01-08] MEDS: Enoxaparin 60 MG/0.6 ML SYR SC ×2 (05:30→18:36)
[2019-01-08 07:40] VITALS: BP 155/90; PULSE 73; RESP 18; TEMP 36.1; O2SAT 94
[2019-01-08] MEDS: Normal Saline Flush 10 ML SYR IVP (08:03)
[2019-01-08] MEDS: Acetaminophen 325 MG TAB 650 MG PO (08:03)
[2019-01-08] MEDS: Pantoprazole 40 MG TABCR PO (08:04)
[2019-01-08] MEDS: Insulin Glargine 300 UNITS/3 ML PEN 16 UNITS SC (08:04)
[2019-01-08] MEDS: Aspirin E.C. 325 MG TABEC PO (08:04)
[2019-01-08] MEDS: metFORMIN 500 MG TAB 1500 MG PO (08:04)
[2019-01-08] MEDS: VANCOMYCIN 1,000 MG in Normal Saline 250 ML 167 ML IVPB ×2 (08:25→18:36)
[2019-01-08 09:50] VITALS: O2SAT 95
[2019-01-08] MEDS: CEFEPIME 2 GM in Normal Saline 100 ML IVPB ×2 (10:46→22:44)
[2019-01-08] MEDS: traMADol 50 MG TAB 25 MG PO (10:53)
--- NOTE | 2019-01-08 15:02 | PDOC.CMACT ---
- If Service Date Differs Date of service: 01/08/19 Time of Service: 15:02 Care Management Activity Note Elias is sleeping in bed when this ticket writer visits this morning. He easily awakens when CM enters the room, and is pleasant throughout interaction. He enjoys watching television and walking around his room. CM offered activities from the activity cart, and he is also offered Reiki, Music therapy, and Pet therapy when available. Elias enjoys having his family visit, and being able to talk with his sister on the phone. P: Elias will remain on IV antibiotics and continue with lab monitoring. Anticipate he will complete treatment on 01/16/19. He will return to [place] when medically ready.
[2019-01-08 15:20] VITALS: BP 124/77; PULSE 92; RESP 20; TEMP 36.2; O2SAT 96
[2019-01-08 16:49] LABS: CREATININE 1.15 mg/dL (0.70-1.30); Vancomycin, Trough 17.5 ug/mL (10.0-20.0)
[2019-01-08] MEDS: metFORMIN 500 MG TAB 1000 MG PO (22:45)
[2019-01-09 00:03] VITALS: BP 165/89; PULSE 79; RESP 16; TEMP 36.4; O2SAT 96
[2019-01-09] MEDS: Normal Saline 500 ML 30 ML IV (04:01)
[2019-01-09] MEDS: VANCOMYCIN 1,000 MG in Normal Saline 250 ML 167 ML IVPB ×3 (04:01→23:11)
[2019-01-09] MEDS: Normal Saline Flush 10 ML SYR IVP ×3 (04:05→13:10)
[2019-01-09] MEDS: Enoxaparin 60 MG/0.6 ML SYR SC ×2 (06:17→17:24)
[2019-01-09] MEDS: metroNIDAZOLE 500 MG TAB PO ×3 (06:17→21:21)
[2019-01-09 07:20] VITALS: BP 127/73; PULSE 82; RESP 20; TEMP 36.8; O2SAT 97
[2019-01-09 07:35] LABS: Platelet Count 285 x1000/uL (130-400)
[2019-01-09] MEDS: metFORMIN 500 MG TAB 1500 MG PO (08:59)
[2019-01-09] MEDS: Aspirin E.C. 325 MG TABEC PO (09:00)
[2019-01-09] MEDS: Insulin Glargine 300 UNITS/3 ML PEN 16 UNITS SC (09:00)
[2019-01-09] MEDS: Pantoprazole 40 MG TABCR PO (09:00)
[2019-01-09] MEDS: CEFEPIME 2 GM in Normal Saline 100 ML IVPB ×2 (11:24→21:26)
--- NOTE | 2019-01-09 11:27 | DI.US_ITS ---
SYMPTOMS/DIAGNOSIS: F/U BASILIC VEIN THROMBUS RIGHT UPPER EXTREMITY VENOUS ULTRASOUND: Duplex evaluation of the deep venous system of the right upper extremity was performed according to the usual protocol. The examination is compared with examination of 01/05/19 which showed thrombus in basilic vein but no deep vein thrombus. The previously noted PICC line has been withdrawn. There is persistent thrombus in basilic vein grossly unchanged from the previous examination. No new thrombus identified in the deep venous system. CONCLUSION: Stable appearance of basilic vein thrombus since 01/05/19.
[2019-01-09] MEDS: Insulin Aspart 300 UNITS/3 ML PEN SC (12:08)
[2019-01-09] MEDS: Acetaminophen 325 MG TAB 650 MG PO (13:47)
[2019-01-09 15:30] VITALS: BP 151/89; PULSE 87; RESP 20; TEMP 36.6; O2SAT 98
[2019-01-09] MEDS: metFORMIN 500 MG TAB 1000 MG PO (21:22)
[2019-01-10 00:11] VITALS: BP 129/80; PULSE 82; RESP 17; TEMP 36.9; O2SAT 95
[2019-01-10] MEDS: metroNIDAZOLE 500 MG TAB PO ×3 (05:18→20:56)
[2019-01-10 07:35] VITALS: BP 162/96; PULSE 78; RESP 16; TEMP 36.7; O2SAT 98
[2019-01-10] MEDS: Pantoprazole 40 MG TABCR PO (07:59)
[2019-01-10] MEDS: Apixaban 5 MG TAB PO ×2 (07:59→19:26)
[2019-01-10] MEDS: Aspirin E.C. 325 MG TABEC PO (07:59)
[2019-01-10] MEDS: metFORMIN 500 MG TAB 1500 MG PO (07:59)
[2019-01-10] MEDS: Insulin Glargine 300 UNITS/3 ML PEN 16 UNITS SC (08:00)
[2019-01-10] MEDS: Acetaminophen 325 MG TAB 650 MG PO (08:00)
[2019-01-10] MEDS: Normal Saline 500 ML 200 ML IV (09:54)
[2019-01-10] MEDS: CEFEPIME 2 GM in Normal Saline 100 ML IVPB ×2 (09:55→20:56)
[2019-01-10] MEDS: VANCOMYCIN 1,000 MG in Normal Saline 250 ML 167 ML IVPB (10:40)
[2019-01-10 15:13] VITALS: BP 138/71; PULSE 98; RESP 18; TEMP 37; O2SAT 98
[2019-01-10] MEDS: metFORMIN 500 MG TAB 1000 MG PO (20:55)
[2019-01-10] MEDS: Insulin Aspart 300 UNITS/3 ML PEN SC (21:14)
[2019-01-11] MEDS: metroNIDAZOLE 500 MG TAB PO ×3 (05:06→21:59)
[2019-01-11 07:40] VITALS: BP 136/71; PULSE 85; RESP 18; TEMP 36.3; O2SAT 94
[2019-01-11] MEDS: Apixaban 5 MG TAB PO ×2 (08:50→19:56)
[2019-01-11] MEDS: Acetaminophen 325 MG TAB 650 MG PO (08:50)
[2019-01-11] MEDS: Insulin Glargine 300 UNITS/3 ML PEN 16 UNITS SC (08:51)
[2019-01-11] MEDS: Pantoprazole 40 MG TABCR PO (08:51)
[2019-01-11] MEDS: metFORMIN 500 MG TAB 1500 MG PO (08:51)
[2019-01-11] MEDS: Aspirin E.C. 325 MG TABEC PO (08:51)
[2019-01-11] MEDS: Normal Saline Flush 10 ML SYR IVP ×2 (11:00→21:58)
[2019-01-11] MEDS: CEFEPIME 2 GM in Normal Saline 100 ML IVPB ×2 (11:00→21:58)
[2019-01-11] MEDS: Insulin Aspart 300 UNITS/3 ML PEN SC (12:16)
--- NOTE | 2019-01-11 12:45 | DI.CT_ITS ---
SYMPTOM/DIAGNOSIS: CAVITARY PNEUMONIA CT ANGIOGRAPHY CHEST: 01/11/19 CT angiography of the chest was performed with a bolus infusion of 100 cc Omnipaque 350. Examination is compared with previous examination of 12/01/2018 which showed cavitating lung lesions on the right. On today's examination the left lung remains clear. Right lung shows markedly decreased prominence of infrapulmonary infiltrates with some persistent noncavitary infiltrate in the right lower lobe. Tracheobronchial tree appears intact. On today's examination there is new finding of multiple pulmonary emboli predominantly in lower lobe vessels but also involving additional segmental pulmonary arteries in right middle lobe and left upper lobe. No pleural effusion seen. The liver, spleen, pancreas, adrenals and kidneys are unremarkable as visualized. No mediastinal or hilar adenopathy. CONCLUSION: Marked interval improvement of right lung cavitary lesions. No cavitation at this time. New finding of multiple pulmonary emboli as described above.
--- NOTE | 2019-01-11 13:40 | DI.VRAD_ITS ---
EXAM: CT Chest With Contrast EXAM DATE/TIME: 01/11/2019 9:13 AM CLINICAL HISTORY: 63 years old, male; Signs and symptoms; Other: Cavitary pneumonia TECHNIQUE: Imaging protocol: Axial computed tomography images of the chest with intravenous contrast. Coronal and sagittal reformatted images were created and reviewed. Radiation optimization: All CT scans at this facility use at least one of these dose optimization techniques: automated exposure control; mA and/or kV adjustment per patient size (includes targeted exams where dose is matched to clinical indication); or iterative reconstruction. Contrast material: omni 350 Contrast volume: 70 ml Contrast route: iv COMPARISON: CT chest w 12/01/2018 10:14 AM FINDINGS: Lungs: The multiple cavitary lesions seen on the prior study have resolved. There is persistent opacity in the right lower lobe measuring 2.5 x 1.4 cm with surrounding inflammatory changes. But no cavitary lesion. This may represent pneumonia. Abscess cannot be ruled out. Mild opacities in the right upper lobe, medial right middle lobe, and lower lobe may represent minimal atelectasis or pneumonia. Pleural space: Normal. No pneumothorax. No pleural effusion. Heart: Normal. No cardiomegaly. No pericardial effusion. Aorta: Normal. No aortic aneurysm. Lymph nodes: Unremarkable. No enlarged lymph nodes. Bones/joints: Unremarkable. No acute fracture. Soft tissues: Unremarkable. Kidneys and ureters: Cyst in the right kidney Stomach and bowel: There are multiple loops of dilated bowel which may represent obstruction or ileus. IMPRESSION: 1. The multiple cavitary lesions seen on the prior study have resolved. There is persistent opacity in the right lower lobe measuring 2.5 x 1.4 cm with surrounding inflammatory changes. But no cavitary lesion. This may represent pneumonia. Abscess cannot be ruled out. 2. Mild opacities in the right upper lobe, medial right middle lobe, and lower lobe may represent minimal atelectasis or pneumonia. 3. Multiple loops of dilated bowel may represent obstruction or ileus Dictated and Authenticated by: Jay Jay Young MD. Ordering:SANJUANITA Juan MD
[2019-01-11 15:32] VITALS: BP 135/79; PULSE 86; RESP 18; TEMP 36.3; O2SAT 97
[2019-01-11] MEDS: Normal Saline 500 ML 30 ML IV (16:00)
[2019-01-11 20:09] VITALS: BP 150/81; PULSE 84; RESP 97; TEMP 37.1
[2019-01-11] MEDS: metFORMIN 500 MG TAB 1000 MG PO (21:59)
[2019-01-11 23:28] VITALS: O2SAT 97
[2019-01-12] MEDS: Normal Saline Flush 10 ML SYR IVP ×3 (02:03→22:29)
[2019-01-12] MEDS: metroNIDAZOLE 500 MG TAB PO ×3 (06:29→21:23)
[2019-01-12 07:15] VITALS: BP 135/78; PULSE 78; RESP 18; TEMP 36.3; O2SAT 93
[2019-01-12 08:10] VITALS: O2SAT 97
[2019-01-12] MEDS: Insulin Glargine 300 UNITS/3 ML PEN 16 UNITS SC (08:13)
[2019-01-12] MEDS: Pantoprazole 40 MG TABCR PO (08:14)
[2019-01-12] MEDS: Apixaban 5 MG TAB 10 MG PO ×2 (08:14→20:12)
[2019-01-12] MEDS: metFORMIN 500 MG TAB 1500 MG PO (08:15)
[2019-01-12 08:29] LABS: Abs Immature Grans 0.02 k/cumm (0.0-0.09); Absolute Basophil Count 0.01 k/cumm (0.0-0.2); Absolute Eosinophil Count 0.18 k/cumm (0.0-0.7); Absolute Monocyte Count 0.86 k/cumm (0.11-0.7); Basophils % 0.2; Eosinophils % 2.9; HCT 30.5 % (40.0-50.0); HGB 9.4 g/dL (13.5-17.5); Immature Grans % 0.3; Lymphocytes % 24.3; Mean Corp. HGB Concentration 30.8 g/dL (32.0-36.0); Mean Corpuscular Hemoglobin 26.5 pg (27.0-33.0); Mean Corpuscular Volume 85.9 fL (80-95); Mean Platelet Volume 9.5 fL (8.0-11.0); Monocytes % 13.9; Neutrophils % 58.4; Platelet Count 310 x1000/uL (130-400); RBC 3.55 m/cumm (4.50-6.00); RBC Distribution Width 17.5 % (11.8-14.1); White Blood Cell Count 6.17 k/cumm (4.4-10.8)
[2019-01-12 08:48] LABS: Anisocytosis 1+; Diff Comment RBC Morph Reviewed; Hypochromasia 1+; Poikilocytes 1+; Polychromasia Present
[2019-01-12 08:49] LABS: ALT 20 U/L (12-78); AST 14 U/L (15-37); Alkaline Phosphatase 83 U/L (46-116); Anion Gap 8.4 mmol/L (3-11); BUN 20 mg/dL (7-18); Bilirubin, Total 0.2 mg/dL (0.2-1.0); C-Reactive Protein 0.11 mg/dL (0.0-0.3); CO2 27.6 mmol/L (21.0-32.0); Calcium 8.6 mg/dL (8.5-10.1); Chloride 107 mmol/L (98-107); Glucose 89 mg/dL (70-100); Sodium 143 mmol/L (136-145); Total Protein 6.5 g/dL (6.4-8.2)
[2019-01-12 09:30] LABS: ESR 40 MM/HR (1-20)
[2019-01-12] MEDS: CEFEPIME 2 GM in Normal Saline 100 ML IVPB ×2 (10:08→21:23)
[2019-01-12 12:21] LABS: CREATININE 0.89 mg/dL (0.70-1.30); Vancomycin, Trough 15.6 ug/mL (10.0-20.0)
[2019-01-12 15:29] VITALS: BP 167/88; PULSE 95; RESP 18; TEMP 36.5; O2SAT 95
--- NOTE | 2019-01-12 18:43 | NUR.NOTE ---
Nursing Note: Patient is more comfortable now the midline has been inserted, no anxiety r/t his iv site was noted the rest of this shift
[2019-01-12 20:40] VITALS: BP 156/78; PULSE 83; RESP 18; TEMP 36.7; O2SAT 98
[2019-01-12] MEDS: Insulin Aspart 300 UNITS/3 ML PEN SC (21:24)
[2019-01-12] MEDS: metFORMIN 500 MG TAB 1000 MG PO (21:24)
[2019-01-12] MEDS: VANCOMYCIN 1,000 MG in Normal Saline 250 ML 167.007 ML IVPB (22:28)
[2019-01-12 23:27] VITALS: O2SAT 97
[2019-01-13] VITALS (7 sets, daily range): BP systolic 133–162; BP diastolic 76–92; PULSE 80–89; RESP 16–24; TEMP 36–37.3; O2SAT 93–98
[2019-01-13] MEDS: metroNIDAZOLE 500 MG TAB PO ×3 (05:51→22:05)
[2019-01-13 07:00] LABS: HCT 27.6 % (40.0-50.0); HGB 8.4 g/dL (13.5-17.5); Mean Corp. HGB Concentration 30.4 g/dL (32.0-36.0); Mean Corpuscular Hemoglobin 26.3 pg (27.0-33.0); Mean Corpuscular Volume 86.5 fL (80-95); Mean Platelet Volume 9.6 fL (8.0-11.0); Platelet Count 311 x1000/uL (130-400); RBC 3.19 m/cumm (4.50-6.00); RBC Distribution Width 17.4 % (11.8-14.1); White Blood Cell Count 5.73 k/cumm (4.4-10.8)
[2019-01-13 07:15] LABS: ALT 20 U/L (12-78); AST 14 U/L (15-37); Albumin 2.9 g/dL (3.4-5.0); Alkaline Phosphatase 81 U/L (46-116); Anion Gap 9.7 mmol/L (3-11); BUN 20 mg/dL (7-18); Bilirubin, Total 0.2 mg/dL (0.2-1.0); CO2 29.3 mmol/L (21.0-32.0); CREATININE 0.79 mg/dL (0.70-1.30); Calcium 8.4 mg/dL (8.5-10.1); Chloride 106 mmol/L (98-107); Glucose 85 mg/dL (70-100); Potassium 3.8 mmol/L (3.5-5.1); Sodium 145 mmol/L (136-145); Total Protein 6.1 g/dL (6.4-8.2)
[2019-01-13] MEDS: Apixaban 5 MG TAB 10 MG PO ×2 (08:28→19:57)
[2019-01-13] MEDS: Pantoprazole 40 MG TABCR PO (08:29)
[2019-01-13] MEDS: metFORMIN 500 MG TAB 1500 MG PO (08:29)
[2019-01-13] MEDS: VANCOMYCIN 1,000 MG in Normal Saline 250 ML 167.007 ML IVPB (08:30)
[2019-01-13] MEDS: Insulin Glargine 300 UNITS/3 ML PEN 16 UNITS SC (08:30)
[2019-01-13] MEDS: CEFEPIME 2 GM in Normal Saline 100 ML IVPB ×2 (10:48→22:04)
--- NOTE | 2019-01-13 17:15 | W.PM.PROGNOT ---
Date of Service Date of service: 01/13/19 Time of Service: 17:18 Assessment and Plan (1) Cavitary pneumonia: Current visit: Yes Status: Acute Stable. CRP normalized. No leukocytosis, afebrile. Continue Cefepime 2 gm IV Q12h, vancomycin 1.5 gm IV q12 hr, Flagyl 500 mg po q8hr, extend antibiotic course to 01/23/19 per conversation with ID at [facility]. Repeat CT Chest 01/22/19, discuss findings with [facility] ID. Follow up appointment 01/27/2019 at 1315 with Foreign De La Torre at [facility]. (2) Acute thrombosis of right basilic vein: Current visit: Yes Status: Acute Related to PICC line. PICC removed. Therapeutic on Apixiban. (3) Pulmonary emboli: Current visit: Yes Status: Chronic Noted on CT chest, likely related to Thrombosis of right basilic vein r/t PICC line. On Apixiban as above. (4) Bacteremia: Current visit: No Status: Acute Cx with Strep spp, Enterococcus faecium, MRSA, As above. Repeat blood cultures negative (12/05/18). TTE negative for endocarditis. Continue above antibiotic treatment. (5) Diabetes: Current visit: No Status: Chronic Tight control. Discontinue Actos. Continue basal bolus insulin and metformin. Continue to monitor blood glucose. Continue ADA diet. (6) Hypertension: Current visit: Yes Status: Chronic Blood pressure within appropriate range. Not currently on treatment. Continue to monitor blood pressure. (7) Pain: Current visit: Yes Status: Acute Improved. Denies pain today. Continue to hold statin. Continue acetaminophen and tramadol for pain control. (8) Normocytic anemia: Current visit: No Status: Acute H&H stable. Continue to monitor weekly labs. Continue PPI for GI protection. (9) Schizo affective schizophrenia: Current visit: Yes Status: Acute Stable. Continue his home clozaril and Geodon. (10) DVT prophylaxis: Current visit: No Status: Acute Therapeutic Apixiban. (11) Discharge planning issues: Current visit: No Status: Acute DNR/DNI. He will return to the prison, [place], when he is ready for discharge from the hospital. This case was discussed with Dr. Herrera who is in agreement. Subjective Interval history since last seen: Koko Estevez is a pleasant 63 year old male resident of [facility] in [place] who is currently being treated for Cavitary pneumonia and bacteremia with triple antibiotics. His end date was previously 01/16/19, however, after his repeat CT chest yesterday showed persistent noncavitary infiltrate in the right lower lobe. His case was discussed by previous provider with [facility] and the plan is to extend his antibiotic therapy by 1 week with repeat imaging prior to completing antibiotic course. The chest CT also notes new finding of multiple pulmonary emboli. He is on therapeutic eliquis for a thrombosis of the right basilic vein associated with previous PICC line. This case was discussed with Mr. Estevez who is in agreement with the plan. He will follow up with ID on 01/27 as scheduled. Mr. Estevez reports feeling better today. He no longer has pain all over, he reports feeling better for the last 3 days. He denies dizziness, shortness of breath, coughing, wheezing, chest pain/pressure, palpitations, he reports eating and drinking and tolerating his diet, no nausea, vomiting or diarrhea, no dysuria. He has been moving his bowels regularly. He reports that he ambulates frequently in his room. Exam Narrative Exam Narrative: General: Well-appearing, lying in bed, in no acute distress. He has visitors present. He is speaking in full sentences with no shortness of breath. HEENT: Extraocular movements are intact, pupils are equal and round, mucous membranes moist. Cardiovascular: Heart has regular rate and rhythm, 1-2/6 murmur noted at LSB. Respiratory: Respirations even and unlabored, wheeze noted at RLL. No rales. Gastrointestinal: Normoactive bowel sounds in all 4 quadrants, abdomen soft, nontender on palpation, no masses appreciated. Extremities: No clubbing, cyanosis or edema to bilateral lower extremities. Peripheral pulses intact bilaterally. Objective Objective Clinical Data: Abnormal lab results 01/13/19 01/13/19 Range/Units 06:20 06:20 RBC 3.19 L (4.50-6.00) m/cumm Hgb 8.4 L (13.5-17.5) g/dL Hct 27.6 L (40.0-50.0) % MCH 26.3 L (27.0-33.0) pg MCHC 30.4 L (32.0-36.0) g/dL RDW 17.4 H (11.8-14.1) % BUN 20 H (7-18) mg/dL Calcium 8.4 L (8.5-10.1) mg/dL AST 14 L (15-37) U/L Total Protein 6.1 L (6.4-8.2) g/dL Albumin 2.9 L (3.4-5.0) g/dL Vital Signs Temperature 37.1 C 01/13/19 15:10 Temperature Source Tympanic 01/13/19 15:10 Pulse 89 01/13/19 15:10 Pulse Rhythm Regular 01/13/19 13:15 Respiratory Rate 24 01/13/19 15:10 Respiratory Effort Non-Labored 01/13/19 13:15 Respiratory Depth Normal 01/13/19 13:15 Respiratory Pattern Normal 01/13/19 13:15 Blood Pressure 156/92 H 01/13/19 15:10 Pulse Oximetry 97 01/13/19 15:10 Oxygen Delivery Method Room Air 01/13/19 15:10 Oxygen Flow Rate 0 01/13/19 15:10 Pain Level 0 01/13/19 13:15 Comment 12/31/18 09:23 Intake & Output 01/12/19 01/13/19 01/13/19 23:59 11:59 23:59 Intake Total 730 / 1330 1510 / 2510 1000 / 2510 Output Total 2200 / 2200 Balance 730 / 1330 -690 / 310 1000 / 310 Intake: IV 370 / 730 350 / 350 Oral 360 / 600 1160 / 2160 1000 / 2160 Output: Urine 2200 / 2200 Other: Urine Color Pale Yellow Yellow Urine Appearance Clear Clear Urine Odor None Comment voids independently in the tiolet Void x1 in the toilet. Stool Size Moderate Stool Characteristics Soft Hard Voiding Methods Urinal Toilet Laboratory Results WBC 5.73 k/cumm (4.4-10.8) 01/13/19 06:20 RBC 3.19 m/cumm (4.50-6.00) L 01/13/19 06:20 Hgb 8.4 g/dL (13.5-17.5) L 01/13/19 06:20 Hct 27.6 % (40.0-50.0) L 01/13/19 06:20 MCV 86.5 fL (80-95) 01/13/19 06:20 MCH 26.3 pg (27.0-33.0) L 01/13/19 06:20 MCHC 30.4 g/dL (32.0-36.0) L 01/13/19 06:20 RDW 17.4 % (11.8-14.1) H 01/13/19 06:20 Plt Count 311 x1000/uL (130-400) 01/13/19 06:20 MPV 9.6 fL (8.0-11.0) 01/13/19 06:20 Immature Gran % 0.3 01/12/19 08:08 Neutrophils % 58.4 01/12/19 08:08 Lymphocytes % 24.3 01/12/19 08:08 Monocytes % 13.9 01/12/19 08:08 Eosinophils % 2.9 01/12/19 08:08 Basophils % 0.2 01/12/19 08:08 Absolute Neutrophils 3.60 k/cumm (1.2-6.7) 01/12/19 08:08 Absolute Lymphocytes 1.50 k/cumm (1.2-3.4) 01/12/19 08:08 Absolute Monocytes 0.86 k/cumm (0.11-0.7) H 01/12/19 08:08 Absolute Eosinophils 0.18 k/cumm (0.0-0.7) 01/12/19 08:08 Absolute Basophils 0.01 k/cumm (0.0-0.2) 01/12/19 08:08 Differential Comment Rbc morph reviewed 01/12/19 08:08 RBC Morphology See below 01/12/19 08:08 Polychromasia Present 01/12/19 08:08 Hypochromasia 1+ 01/12/19 08:08 Poikilocytosis 1+ 01/12/19 08:08 Anisocytosis 1+ 01/12/19 08:08 ESR 40 MM/HR (1-20) H 01/12/19 08:08 Sodium 145 mmol/L (136-145) 01/13/19 06:20 Potassium 3.8 mmol/L (3.5-5.1) 01/13/19 06:20 Chloride 106 mmol/L (98-107) 01/13/19 06:20 Carbon Dioxide 29.3 mmol/L (21.0-32.0) 01/13/19 06:20 Anion Gap 9.7 mmol/L (3-11) 01/13/19 06:20 BUN 20 mg/dL (7-18) H 01/13/19 06:20 Creatinine 0.79 mg/dL (0.70-1.30) 01/13/19 06:20 Estimated GFR/1.73 m2 >= 60.00 (mL/min/1.73m2) 01/13/19 06:20 Glucose 85 mg/dL (70-100) 01/13/19 06:20 Calcium 8.4 mg/dL (8.5-10.1) L 01/13/19 06:20 Iron 15 ug/dL (50-175) L 12/16/18 06:46 TIBC 234 ug/dL (250-450) L 12/16/18 06:46 Transferrin % Sat 6 % (20-55) L 12/16/18 06:46 Ferritin 42 ng/mL (8-388) 12/16/18 06:46 Total Bilirubin 0.2 mg/dL (0.2-1.0) 01/13/19 06:20 AST 14 U/L (15-37) L 01/13/19 06:20 ALT 20 U/L (12-78) 01/13/19 06:20 Alkaline Phosphatase 81 U/L (46-116) 01/13/19 06:20 C-Reactive Protein 0.11 mg/dL (0.0-0.3) 01/12/19 08:08 Total Protein 6.1 g/dL (6.4-8.2) L 01/13/19 06:20 Albumin 2.9 g/dL (3.4-5.0) L 01/13/19 06:20 Triglycerides 86 mg/dL (30-150) 12/18/18 06:35 Total Cholesterol 104 mg/dL (50-200) 12/18/18 06:35 LDL Cholesterol Direct 49 mg/dL (<100) 12/18/18 06:35 HDL Cholesterol 40 mg/dL (40-60) 12/18/18 06:35 Vitamin B12 284 pg/mL (193-986) 12/16/18 06:46 Folate 9.5 ng/mL (8.6-20.0) 12/16/18 06:46 Urine Color Yellow (Yellow) 01/02/19 10:55 Urine Clarity Clear 01/02/19 10:55 Urine pH 5.5 (5-8) 01/02/19 10:55 Ur Specific [place] 1.020 (1.005-1.025) 01/02/19 10:55 Urine Protein Negative mg/dL (Negative) 01/02/19 10:55 Urine Ketones Negative mg/dL (Negative) 01/02/19 10:55 Urine Blood Negative (Negative) 01/02/19 10:55 Urine Nitrite Negative (Negative) 01/02/19 10:55 Urine Bilirubin Negative (Negative) 01/02/19 10:55 Urine Urobilinogen 0.2 EU/dL (Up TO 0.2) 01/02/19 10:55 Ur Leukocyte Esterase Trace (Negative) H 01/02/19 10:55 Urine RBC Negative (0-2) 01/02/19 10:55 Urine WBC Negative HPF (0-5) 01/02/19 10:55 Ur Epithelial Cells Negative HPF (Negative) 01/02/19 10:55 Urine Crystals Negative HPF (Negative) 01/02/19 10:55 Urine Bacteria Negative HPF (Negative) 01/02/19 10:55 Urine Casts Negative LPF (Negative) 01/02/19 10:55 Urine Mucus Negative (Negative) 01/02/19 10:55 Urine Other Negative (Negative) 01/02/19 10:55 Ur Culture Indicated? No 01/02/19 10:55 Urine Glucose Negative mg/dL (Negative) 01/02/19 10:55 Vancomycin Trough 15.6 ug/mL (10.0-20.0) 01/12/19 12:00
--- NOTE | 2019-01-13 17:20 | PGE_ITS ---
Date of Service Date of service: 01/13/19 Time of Service: 17:18 Assessment and Plan (1) Cavitary pneumonia: Current visit: Yes Status: Acute Stable. CRP normalized. No leukocytosis, afebrile. Continue Cefepime 2 gm IV Q12h, vancomycin 1.5 gm IV q12 hr, Flagyl 500 mg po q8hr, extend antibiotic course to 01/23/19 per conversation with ID at [facility]. Repeat CT Chest 01/22/19, discuss findings with [facility] ID. Follow up appointment 01/27/2019 at 1315 with Foreign De La Torre at [facility]. (2) Acute thrombosis of right basilic vein: Current visit: Yes Status: Acute Related to PICC line. PICC removed. Therapeutic on Apixiban. (3) Pulmonary emboli: Current visit: Yes Status: Chronic Noted on CT chest, likely related to Thrombosis of right basilic vein r/t PICC line. On Apixiban as above. (4) Bacteremia: Current visit: No Status: Acute Cx with Strep spp, Enterococcus faecium, MRSA, As above. Repeat blood cultures negative (12/05/18). TTE negative for endocarditis. Continue above antibiotic treatment. (5) Diabetes: Current visit: No Status: Chronic Tight control. Discontinue Actos. Continue basal bolus insulin and metformin. Continue to monitor blood glucose. Continue ADA diet. (6) Hypertension: Current visit: Yes Status: Chronic Blood pressure within appropriate range. Not currently on treatment. Continue to monitor blood pressure. (7) Pain: Current visit: Yes Status: Acute Improved. Denies pain today. Continue to hold statin. Continue acetaminophen and tramadol for pain control. (8) Normocytic anemia: Current visit: No Status: Acute H&H stable. Continue to monitor weekly labs. Continue PPI for GI protection. (9) Schizo affective schizophrenia: Current visit: Yes Status: Acute Stable. Continue his home clozaril and Geodon. (10) DVT prophylaxis: Current visit: No Status: Acute Therapeutic Apixiban. (11) Discharge planning issues: Current visit: No Status: Acute DNR/DNI. He will return to the longterm, [place], when he is ready for discharge from the hospital. This case was discussed with Dr. Herrera who is in agreement. Subjective Interval history since last seen: Koko Estevez is a pleasant 63 year old male resident of [facility] in [place] who is currently being treated for Cavitary pneumonia and bacteremia with triple antibiotics. His end date was previously 01/16/19, however, after his repeat CT chest yesterday showed persistent noncavitary infiltrate in the right lower lobe. His case was discussed by previous provider with [facility] and the plan is to extend his antibiotic therapy by 1 week with repeat imaging prior to completing antibiotic course. The chest CT also notes new finding of multiple pulmonary emboli. He is on therapeutic eliquis for a thrombosis of the right basilic vein associated with previous PICC line. This case was discussed with Mr. Estevez who is in agreement with the plan. He will follow up with ID on 01/27 as scheduled. Mr. Estevez reports feeling better today. He no longer has pain all over, he reports feeling better for the last 3 days. He denies dizziness, shortness of breath, coughing, wheezing, chest pain/pressure, palpitations, he reports eating and drinking and tolerating his diet, no nausea, vomiting or diarrhea, no dysuria. He has been moving his bowels regularly. He reports that he ambulates frequently in his room. Exam Narrative Exam Narrative: General: Well-appearing, lying in bed, in no acute distress. He has visitors present. He is speaking in full sentences with no shortness of breath. HEENT: Extraocular movements are intact, pupils are equal and round, mucous membranes moist. Cardiovascular: Heart has regular rate and rhythm, 1-2/6 murmur noted at LSB. Respiratory: Respirations even and unlabored, wheeze noted at RLL. No rales. Gastrointestinal: Normoactive bowel sounds in all 4 quadrants, abdomen soft, nontender on palpation, no masses appreciated. Extremities: No clubbing, cyanosis or edema to bilateral lower extremities. Peripheral pulses intact bilaterally. Objective Objective Clinical Data: Abnormal lab results 01/13/19 01/13/19 Range/Units 06:20 06:20 RBC 3.19 L (4.50-6.00) m/cumm Hgb 8.4 L (13.5-17.5) g/dL Hct 27.6 L (40.0-50.0) % MCH 26.3 L (27.0-33.0) pg MCHC 30.4 L (32.0-36.0) g/dL RDW 17.4 H (11.8-14.1) % BUN 20 H (7-18) mg/dL Calcium 8.4 L (8.5-10.1) mg/dL AST 14 L (15-37) U/L Total Protein 6.1 L (6.4-8.2) g/dL Albumin 2.9 L (3.4-5.0) g/dL Vital Signs Temperature 37.1 C 01/13/19 15:10 Temperature Source Tympanic 01/13/19 15:10 Pulse 89 01/13/19 15:10 Pulse Rhythm Regular 01/13/19 13:15 Respiratory Rate 24 01/13/19 15:10 Respiratory Effort Non-Labored 01/13/19 13:15 Respiratory Depth Normal 01/13/19 13:15 Respiratory Pattern Normal 01/13/19 13:15 Blood Pressure 156/92 H 01/13/19 15:10 Pulse Oximetry 97 01/13/19 15:10 Oxygen Delivery Method Room Air 01/13/19 15:10 Oxygen Flow Rate 0 01/13/19 15:10 Pain Level 0 01/13/19 13:15 Comment 12/31/18 09:23 Intake & Output 01/12/19 01/13/19 01/13/19 23:59 11:59 23:59 Intake Total 730 / 1330 1510 / 2510 1000 / 2510 Output Total 2200 / 2200 Balance 730 / 1330 -690 / 310 1000 / 310 Intake: IV 370 / 730 350 / 350 Oral 360 / 600 1160 / 2160 1000 / 2160 Output: Urine 2200 / 2200 Other: Urine Color Pale Yellow Yellow Urine Appearance Clear Clear Urine Odor None Comment voids independently in the tiolet Void x1 in the toilet. Stool Size Moderate Stool Characteristics Soft Hard Voiding Methods Urinal Toilet Laboratory Results WBC 5.73 k/cumm (4.4-10.8) 01/13/19 06:20 RBC 3.19 m/cumm (4.50-6.00) L 01/13/19 06:20 Hgb 8.4 g/dL (13.5-17.5) L 01/13/19 06:20 Hct 27.6 % (40.0-50.0) L 01/13/19 06:20 MCV 86.5 fL (80-95) 01/13/19 06:20 MCH 26.3 pg (27.0-33.0) L 01/13/19 06:20 MCHC 30.4 g/dL (32.0-36.0) L 01/13/19 06:20 RDW 17.4 % (11.8-14.1) H 01/13/19 06:20 Plt Count 311 x1000/uL (130-400) 01/13/19 06:20 MPV 9.6 fL (8.0-11.0) 01/13/19 06:20 Immature Gran % 0.3 01/12/19 08:08 Neutrophils % 58.4 01/12/19 08:08 Lymphocytes % 24.3 01/12/19 08:08 Monocytes % 13.9 01/12/19 08:08 Eosinophils % 2.9 01/12/19 08:08 Basophils % 0.2 01/12/19 08:08 Absolute Neutrophils 3.60 k/cumm (1.2-6.7) 01/12/19 08:08 Absolute Lymphocytes 1.50 k/cumm (1.2-3.4) 01/12/19 08:08 Absolute Monocytes 0.86 k/cumm (0.11-0.7) H 01/12/19 08:08 Absolute Eosinophils 0.18 k/cumm (0.0-0.7) 01/12/19 08:08 Absolute Basophils 0.01 k/cumm (0.0-0.2) 01/12/19 08:08 Differential Comment Rbc morph reviewed 01/12/19 08:08 RBC Morphology See below 01/12/19 08:08 Polychromasia Present 01/12/19 08:08 Hypochromasia 1+ 01/12/19 08:08 Poikilocytosis 1+ 01/12/19 08:08 Anisocytosis 1+ 01/12/19 08:08 ESR 40 MM/HR (1-20) H 01/12/19 08:08 Sodium 145 mmol/L (136-145) 01/13/19 06:20 Potassium 3.8 mmol/L (3.5-5.1) 01/13/19 06:20 Chloride 106 mmol/L (98-107) 01/13/19 06:20 Carbon Dioxide 29.3 mmol/L (21.0-32.0) 01/13/19 06:20 Anion Gap 9.7 mmol/L (3-11) 01/13/19 06:20 BUN 20 mg/dL (7-18) H 01/13/19 06:20 Creatinine 0.79 mg/dL (0.70-1.30) 01/13/19 06:20 Estimated GFR/1.73 m2 >= 60.00 (mL/min/1.73m2) 01/13/19 06:20 Glucose 85 mg/dL (70-100) 01/13/19 06:20 Calcium 8.4 mg/dL (8.5-10.1) L 01/13/19 06:20 Iron 15 ug/dL (50-175) L 12/16/18 06:46 TIBC 234 ug/dL (250-450) L 12/16/18 06:46 Transferrin % Sat 6 % (20-55) L 12/16/18 06:46 Ferritin 42 ng/mL (8-388) 12/16/18 06:46 Total Bilirubin 0.2 mg/dL (0.2-1.0) 01/13/19 06:20 AST 14 U/L (15-37) L 01/13/19 06:20 ALT 20 U/L (12-78) 01/13/19 06:20 Alkaline Phosphatase 81 U/L (46-116) 01/13/19 06:20 C-Reactive Protein 0.11 mg/dL (0.0-0.3) 01/12/19 08:08 Total Protein 6.1 g/dL (6.4-8.2) L 01/13/19 06:20 Albumin 2.9 g/dL (3.4-5.0) L 01/13/19 06:20 Triglycerides 86 mg/dL (30-150) 12/18/18 06:35 Total Cholesterol 104 mg/dL (50-200) 12/18/18 06:35 LDL Cholesterol Direct 49 mg/dL (<100) 12/18/18 06:35 HDL Cholesterol 40 mg/dL (40-60) 12/18/18 06:35 Vitamin B12 284 pg/mL (193-986) 12/16/18 06:46 Folate 9.5 ng/mL (8.6-20.0) 12/16/18 06:46 Urine Color Yellow (Yellow) 01/02/19 10:55 Urine Clarity Clear 01/02/19 10:55 Urine pH 5.5 (5-8) 01/02/19 10:55 Ur Specific [place] 1.020 (1.005-1.025) 01/02/19 10:55 Urine Protein Negative mg/dL (Negative) 01/02/19 10:55 Urine Ketones Negative mg/dL (Negative) 01/02/19 10:55 Urine Blood Negative (Negative) 01/02/19 10:55 Urine Nitrite Negative (Negative) 01/02/19 10:55 Urine Bilirubin Negative (Negative) 01/02/19 10:55 Urine Urobilinogen 0.2 EU/dL (Up TO 0.2) 01/02/19 10:55 Ur Leukocyte Esterase Trace (Negative) H 01/02/19 10:55 Urine RBC Negative (0-2) 01/02/19 10:55 Urine WBC Negative HPF (0-5) 01/02/19 10:55 Ur Epithelial Cells Negative HPF (Negative) 01/02/19 10:55 Urine Crystals Negative HPF (Negative) 01/02/19 10:55 Urine Bacteria Negative HPF (Negative) 01/02/19 10:55 Urine Casts Negative LPF (Negative) 01/02/19 10:55 Urine Mucus Negative (Negative) 01/02/19 10:55 Urine Other Negative (Negative) 01/02/19 10:55 Ur Culture Indicated? No 01/02/19 10:55 Urine Glucose Negative mg/dL (Negative) 01/02/19 10:55 Vancomycin Trough 15.6 ug/mL (10.0-20.0) 01/12/19 12:00
[2019-01-13] MEDS: VANCOMYCIN 1,000 MG in Normal Saline 250 ML 167 ML IVPB (18:22)
[2019-01-13] MEDS: Normal Saline Flush 10 ML SYR IVP ×2 (18:23→22:04)
[2019-01-13] MEDS: Insulin Aspart 300 UNITS/3 ML PEN SC (22:03)
[2019-01-13] MEDS: metFORMIN 500 MG TAB 1000 MG PO (22:05)
[2019-01-14] MEDS: VANCOMYCIN 1,000 MG in Normal Saline 250 ML 167 ML IVPB ×3 (04:02→23:56)
[2019-01-14] MEDS: metroNIDAZOLE 500 MG TAB PO ×3 (06:02→21:23)
[2019-01-14 07:25] VITALS: BP 161/93; PULSE 77; RESP 18; TEMP 37.5; O2SAT 94
[2019-01-14] MEDS: metFORMIN 500 MG TAB 1500 MG PO (09:00)
[2019-01-14] MEDS: Apixaban 5 MG TAB 10 MG PO ×2 (09:00→19:32)
[2019-01-14] MEDS: Pantoprazole 40 MG TABCR PO (09:01)
[2019-01-14] MEDS: Insulin Glargine 300 UNITS/3 ML PEN 16 UNITS SC (09:01)
[2019-01-14 09:40] VITALS: O2SAT 98
[2019-01-14] MEDS: CEFEPIME 2 GM in Normal Saline 100 ML IVPB ×2 (10:37→21:24)
[2019-01-14] MEDS: Normal Saline 500 ML 30 ML IV (10:37)
[2019-01-14] MEDS: Normal Saline Flush 10 ML SYR IVP ×2 (10:37→15:02)
[2019-01-14 11:40] VITALS: BP 154/90; PULSE 86; RESP 16; TEMP 37.1; O2SAT 94
[2019-01-14 16:53] VITALS: BP 134/75; PULSE 93; RESP 18; TEMP 36.3; O2SAT 97
[2019-01-14] MEDS: metFORMIN 500 MG TAB 1000 MG PO (21:23)
[2019-01-15] MEDS: metroNIDAZOLE 500 MG TAB PO ×3 (05:22→21:08)
[2019-01-15 07:30] VITALS: BP 140/81; PULSE 77; RESP 18; TEMP 36.8; O2SAT 96
[2019-01-15] MEDS: Pantoprazole 40 MG TABCR PO (08:14)
[2019-01-15] MEDS: metFORMIN 500 MG TAB 1500 MG PO (08:15)
[2019-01-15] MEDS: Apixaban 5 MG TAB 10 MG PO ×2 (08:16→19:24)
[2019-01-15] MEDS: Insulin Glargine 300 UNITS/3 ML PEN 16 UNITS SC (08:16)
[2019-01-15] MEDS: Normal Saline Flush 10 ML SYR IVP (09:16)
[2019-01-15] MEDS: CEFEPIME 2 GM in Normal Saline 100 ML IVPB ×2 (09:16→21:09)
[2019-01-15] MEDS: VANCOMYCIN 1,000 MG in Normal Saline 250 ML 167 ML IVPB ×2 (09:59→19:24)
[2019-01-15 16:05] VITALS: BP 155/78; PULSE 93; RESP 18; TEMP 36.8; O2SAT 96
--- NOTE | 2019-01-15 17:31 | PDOC.CMACT ---
Care Management Activity Note CM offered activities from the activity cart, and he is also offered Reiki, Music therapy, and Pet therapy when available. Elisa enjoys having his family visit, and being able to talk with his sister on the phone. P: Elias will remain on IV antibiotics and continue with lab monitoring. Anticipate he will complete treatment on 01/23/19. He will return to [place] when medically ready.
[2019-01-15] MEDS: metFORMIN 500 MG TAB 1000 MG PO (21:08)
[2019-01-16 03:19] VITALS: BP 167/92; PULSE 82; RESP 15; TEMP 36.8; O2SAT 95
[2019-01-16] MEDS: VANCOMYCIN 1,000 MG in Normal Saline 250 ML 167 ML IVPB ×2 (05:14→15:30)
[2019-01-16] MEDS: metroNIDAZOLE 500 MG TAB PO ×3 (05:14→21:37)
[2019-01-16 07:25] VITALS: BP 166/79; PULSE 79; RESP 20; TEMP 36.8; O2SAT 96
[2019-01-16] MEDS: Pantoprazole 40 MG TABCR PO (09:07)
[2019-01-16] MEDS: metFORMIN 500 MG TAB 1500 MG PO (09:08)
[2019-01-16] MEDS: Apixaban 5 MG TAB 10 MG PO ×2 (09:08→19:45)
[2019-01-16] MEDS: Insulin Glargine 300 UNITS/3 ML PEN 16 UNITS SC (09:23)
[2019-01-16] MEDS: CEFEPIME 2 GM in Normal Saline 100 ML IVPB ×2 (10:25→21:35)
[2019-01-16] MEDS: Insulin Aspart 300 UNITS/3 ML PEN SC (11:45)
[2019-01-16] MEDS: Normal Saline 500 ML 30 ML IV (15:39)
[2019-01-16 16:12] VITALS: BP 138/80; PULSE 90; RESP 17; TEMP 36.7; O2SAT 94
[2019-01-16 16:13] LABS: CREATININE 0.83 mg/dL (0.70-1.30)
[2019-01-16] MEDS: Normal Saline Flush 10 ML SYR IVP (21:35)
[2019-01-16] MEDS: metFORMIN 500 MG TAB 1000 MG PO (21:38)
[2019-01-16 23:30] VITALS: BP 149/73; PULSE 82; RESP 22; TEMP 37; O2SAT 95
[2019-01-17] MEDS: Normal Saline Flush 10 ML SYR IVP ×3 (01:19→21:39)
[2019-01-17] MEDS: VANCOMYCIN 1,000 MG in Normal Saline 250 ML 167 ML IVPB ×2 (01:19→12:50)
[2019-01-17] MEDS: metroNIDAZOLE 500 MG TAB PO ×3 (06:47→21:40)
[2019-01-17 07:27] VITALS: BP 137/77; PULSE 84; RESP 20; TEMP 36; O2SAT 95
[2019-01-17] MEDS: Pantoprazole 40 MG TABCR PO (08:02)
[2019-01-17] MEDS: Apixaban 5 MG TAB 10 MG PO ×2 (08:02→19:44)
[2019-01-17] MEDS: Insulin Glargine 300 UNITS/3 ML PEN 16 UNITS SC (08:02)
[2019-01-17] MEDS: metFORMIN 500 MG TAB 1500 MG PO (08:02)
[2019-01-17] MEDS: CEFEPIME 2 GM in Normal Saline 100 ML IVPB ×2 (09:56→21:39)
[2019-01-17 11:57] LABS: Vancomycin, Trough 17.4 ug/mL (10.0-20.0)
[2019-01-17] MEDS: Acetaminophen 325 MG TAB 650 MG PO (13:22)
[2019-01-17 16:02] VITALS: BP 150/73; PULSE 96; RESP 19; TEMP 36; O2SAT 95
[2019-01-17 16:34] VITALS: PULSE 100; PULSE 101; PULSE 97; O2SAT 95; O2SAT 96
[2019-01-17 20:14] VITALS: BP 167/93; PULSE 79; RESP 16; TEMP 37; O2SAT 97
[2019-01-17] MEDS: metFORMIN 500 MG TAB 1000 MG PO (21:39)
[2019-01-17 23:10] VITALS: O2SAT 98
[2019-01-17 23:34] VITALS: BP 150/79; PULSE 82; RESP 19; TEMP 36.1; O2SAT 98
[2019-01-18] MEDS: metroNIDAZOLE 500 MG TAB PO ×3 (06:04→21:29)
[2019-01-18 07:15] VITALS: BP 158/90; PULSE 75; RESP 18; TEMP 36.7; O2SAT 93
[2019-01-18] MEDS: metFORMIN 500 MG TAB 1500 MG PO (07:50)
[2019-01-18] MEDS: Pantoprazole 40 MG TABCR PO (07:51)
[2019-01-18] MEDS: Acetaminophen 325 MG TAB 650 MG PO (07:51)
[2019-01-18] MEDS: Apixaban 5 MG TAB 10 MG PO ×2 (07:51→21:28)
[2019-01-18] MEDS: Normal Saline Flush 10 ML SYR IVP ×3 (07:52→21:49)
[2019-01-18] MEDS: Insulin Glargine 300 UNITS/3 ML PEN 16 UNITS SC (07:52)
[2019-01-18] MEDS: CEFEPIME 2 GM in Normal Saline 100 ML IVPB ×2 (10:12→21:40)
[2019-01-18] MEDS: Insulin Aspart 300 UNITS/3 ML PEN SC (11:52)
[2019-01-18 16:59] VITALS: BP 150/79; PULSE 88; RESP 20; TEMP 36.3; O2SAT 97
[2019-01-18] MEDS: metFORMIN 500 MG TAB 1000 MG PO (21:29)
[2019-01-19 00:12] VITALS: BP 145/87; PULSE 89; RESP 16; TEMP 36.7; O2SAT 99
[2019-01-19] MEDS: Normal Saline Flush 10 ML SYR IVP ×4 (04:01→23:50)
[2019-01-19] MEDS: metroNIDAZOLE 500 MG TAB PO ×3 (06:53→22:12)
[2019-01-19] MEDS: Insulin Glargine 300 UNITS/3 ML PEN 16 UNITS SC (07:49)
[2019-01-19] MEDS: Apixaban 5 MG TAB PO ×2 (07:49→20:38)
[2019-01-19] MEDS: metFORMIN 500 MG TAB 1500 MG PO (07:49)
[2019-01-19 08:00] VITALS: BP 142/80; PULSE 79; RESP 18; TEMP 35.5; O2SAT 94
[2019-01-19] MEDS: Pantoprazole 40 MG TABCR PO (08:03)
[2019-01-19] MEDS: CEFEPIME 2 GM in Normal Saline 100 ML IVPB ×2 (10:50→22:11)
[2019-01-19 15:56] VITALS: BP 135/78; PULSE 89; RESP 18; TEMP 35.8; O2SAT 94
[2019-01-19 20:50] VITALS: BP 133/75; PULSE 89; RESP 18; TEMP 37; O2SAT 98
[2019-01-19] MEDS: Insulin Aspart 300 UNITS/3 ML PEN SC (22:11)
[2019-01-19] MEDS: Normal Saline 500 ML 50 ML IV (22:11)
[2019-01-19] MEDS: metFORMIN 500 MG TAB 1000 MG PO (22:12)
[2019-01-19 22:42] VITALS: O2SAT 98
[2019-01-20] MEDS: metroNIDAZOLE 500 MG TAB PO ×3 (05:29→21:53)
[2019-01-20 07:13] LABS: HGB 8.8 g/dL (13.5-17.5); Mean Corp. HGB Concentration 30.3 g/dL (32.0-36.0); Mean Corpuscular Volume 85.8 fL (80-95); Mean Platelet Volume 9.7 fL (8.0-11.0); Platelet Count 339 x1000/uL (130-400); RBC 3.38 m/cumm (4.50-6.00); RBC Distribution Width 17.3 % (11.8-14.1); White Blood Cell Count 5.95 k/cumm (4.4-10.8)
[2019-01-20 07:19] LABS: Anion Gap 7.5 mmol/L (3-11); BUN 19 mg/dL (7-18); CO2 29.5 mmol/L (21.0-32.0); CREATININE 0.82 mg/dL (0.70-1.30); Calcium 8.6 mg/dL (8.5-10.1); Chloride 106 mmol/L (98-107); Glucose 98 mg/dL (70-100); Sodium 143 mmol/L (136-145)
[2019-01-20 07:38] VITALS: BP 152/91; PULSE 78; RESP 20; TEMP 36.6; O2SAT 96
[2019-01-20 08:10] VITALS: O2SAT 96
[2019-01-20] MEDS: metFORMIN 500 MG TAB 1500 MG PO (09:29)
[2019-01-20] MEDS: Pantoprazole 40 MG TABCR PO (09:30)
[2019-01-20] MEDS: Insulin Glargine 300 UNITS/3 ML PEN 16 UNITS SC (09:30)
[2019-01-20] MEDS: Apixaban 5 MG TAB PO ×2 (09:30→19:33)
[2019-01-20] MEDS: Normal Saline Flush 10 ML SYR IVP ×2 (10:28→19:36)
[2019-01-20] MEDS: CEFEPIME 2 GM in Normal Saline 100 ML IVPB ×2 (10:28→21:52)
--- NOTE | 2019-01-20 12:14 | PDOC.CMPRO ---
Care Management Progress Note S/O-Case discussed with Senthil from Pharmacy, since patient on last week of IV Abx. His last dose will be at 8 AM on Saturday01/23/19, and should be completed by 11 AM per pharmacy. Spoke with Koko who looks forward to returning home on Saturday. Contacted Karen at [facility], who indicated they might be able to pick him up, but then she suggested we set up transport with [facility]. Called [facility] and arranged for transport at 11:30 am on 01/23/19. [facility] requested CM confirm again with them on afternoon. A-63 yo man admitted to [facility] with lung abscess for Abx RX. P-d/c back to [facility] as per MD on Saturday01/23/19 at 11:30 am via [facility].
--- NOTE | 2019-01-20 15:05 | CMPROGNOTE_ITS ---
Care Management Progress Note S/O-Case discussed with Senthil from Pharmacy, since patient on last week of IV Abx. His last dose will be at 8 AM on Saturday01/23/19, and should be completed by 11 AM per pharmacy. Spoke with Koko who looks forward to returning home on Saturday. Contacted Karen at [facility], who indicated they might be able to pick him up, but then she suggested we set up transport with [facility]. Called [facility] and arranged for transport at 11:30 am on 01/23/19. [facility] requested CM confirm again with them on afternoon. A-63 yo man admitted to [facility] with lung abscess for Abx RX. P-d/c back to [facility] as per MD on Saturday01/23/19 at 11:30 am via [facility].
[2019-01-20 15:27] VITALS: BP 149/81; PULSE 94; RESP 18; TEMP 36.4; O2SAT 96
[2019-01-20] MEDS: metFORMIN 500 MG TAB 1000 MG PO (21:53)
[2019-01-21] VITALS: BP 154/81; PULSE 85; RESP 16; TEMP 36.7; O2SAT 96
[2019-01-21] MEDS: metroNIDAZOLE 500 MG TAB PO ×3 (06:18→22:16)
[2019-01-21] MEDS: Pantoprazole 40 MG TABCR PO (06:18)
[2019-01-21] MEDS: Normal Saline Flush 10 ML SYR IVP ×2 (06:19→07:37)
[2019-01-21] MEDS: Acetaminophen 325 MG TAB 650 MG PO (07:35)
[2019-01-21] MEDS: metFORMIN 500 MG TAB 1500 MG PO (07:36)
[2019-01-21] MEDS: Apixaban 5 MG TAB PO ×2 (07:36→19:41)
[2019-01-21] MEDS: Insulin Glargine 300 UNITS/3 ML PEN 16 UNITS SC (07:39)
[2019-01-21 08:10] VITALS: BP 145/88; PULSE 83; RESP 22; TEMP 35.7; O2SAT 96
[2019-01-21 10:20] VITALS: O2SAT 96
[2019-01-21] MEDS: CEFEPIME 2 GM in Normal Saline 100 ML IVPB ×2 (10:37→22:16)
--- NOTE | 2019-01-21 12:30 | MERGE_ITS ---
*[facility]* *[facility]* [address] [place] [address] Date of study: 01/21/2019 Transthoracic Echocardiography M-mode, complete 2D, complete spectral Doppler, and color Doppler *STUDY CONCLUSIONS* Summary: 1. Left ventricle: The cavity size was normal. Wall thickness was at the upper limits of normal. Systolic function was normal. The estimated ejection fraction was 60-65%. Wall motion was normal; there were no regional wall motion abnormalities. Findings consistent with diastolic dysfunction. Doppler parameters are consistent with high ventricular filling pressure. 2. Left atrium: The atrium was mildly dilated. 3. Right ventricle: The cavity size was normal. Wall thickness was normal. Systolic function was normal. 4. Pulmonary arteries: Pulmonary systolic pressure was mildly to moderately increased, in the range of 40mm Hg to 45mm Hg. *PATIENT PRESENTATION* Height: 175.3cm ((69in) ) S/D Pressure: 145 / 88 Weight: 65.8kg ((144.7lb) ) BSA: 1.79m^2 Test start time: 12:40 PM. Test stop time: 01:40 PM. PERFORMING Unknown PERFORMING [facility] CONSULTING Vinnie Black MANAGER ANIMAL RT Josseline (R)(CT), [facility] ORDERING Radha Matos REFERRING Radha Matos *PROCEDURE DATA* Procedure information: The patient was identified by two identifiers. This study was interpreted by [facility]. Pertinent images and digital data are archived for permanent storage and are available for subsequent review. Comparison was made to the study of 01/21/2019. Study status: Routine. Transthoracic echocardiography. M-mode, complete 2D, complete spectral Doppler, and color Doppler. A Transthoracic Echocardiogram was performed. Scanning was performed from the parasternal, apical, subcostal, and suprasternal notch acoustic windows. Images were obtained using an [id number] cardiac ultrasound machine. Image quality was adequate. Study completion: The patient tolerated the procedure well. There were no complications. History: PMH: Multiple PE's/ assess RV function/ pulm HTN. *CARDIAC ANATOMY* Left ventricle: The cavity size was normal. Wall thickness was at the upper limits of normal. Systolic function was normal. The estimated ejection fraction was 60-65%. Wall motion was normal; there were no regional wall motion abnormalities. Findings consistent with diastolic dysfunction. Doppler parameters are consistent with high ventricular filling pressure. Aortic valve: Trileaflet; normal thickness leaflets. Mobility was not restricted. Doppler: Transvalvular velocity was within the normal range. There was no stenosis. There was no significant regurgitation. VTI ratio of LVOT to aortic valve: 0.75. Valve area (VTI): 2.1cm^2. Indexed valve area (VTI): 1.2cm^2/m^2. Peak velocity ratio of LVOT to aortic valve: 0.67. Valve area (Vmax): 1.9cm^2. Indexed valve area (Vmax): 1.1cm^2/m^2. Mean velocity ratio of LVOT to aortic valve: 0.7. Valve area (Vmean): 2cm^2. Indexed valve area (Vmean): 1.1cm^2/m^2. Mean gradient (S): 5.3mm Hg. Peak gradient (S): 9.2mm Hg. Aorta: Aortic root: The aortic root was normal in size. Ascending aorta: The ascending aorta was normal in size. Mitral valve: Structurally normal valve. Mobility was not restricted. Doppler: Transvalvular velocity was within the normal range. There was no evidence for stenosis. There was no significant regurgitation. Valve area by pressure half-time: 4.4cm^2. Indexed valve area by pressure half-time: 2.5cm^2/m^2. Peak gradient (D): 3mm Hg. Left atrium: The atrium was mildly dilated. Right ventricle: The cavity size was normal. Wall thickness was normal. Systolic function was normal. Pulmonic valve: Doppler: Transvalvular velocity was within the normal range. There was no evidence for stenosis. There was no significant regurgitation. Peak gradient (S): 6mm Hg. Tricuspid valve: Structurally normal valve. Doppler: Transvalvular velocity was within the normal range. There was no evidence for stenosis. There was trivial regurgitation. Pulmonary artery: Pulmonary systolic pressure was mildly to moderately increased, in the range of 40mm Hg to 45mm Hg. Right atrium: The atrium was normal in size. Pericardium: There was no pericardial effusion. Systemic veins: Inferior vena cava: Well visualized. The vessel was patent and normal in size. The respirophasic diameter changes were in the normal range (greater than or equal to 50%). Baseline ECG: Normal sinus rhythm. Measurements Left ventricle Value Reference LV ID, ED, PLAX 5.2 cm 3.5 - 6.0 LV ID, ES, PLAX 3.4 cm 2.1 - 4.0 LV PW thickness, ED, PLAX 1.0 cm LV end-diastolic volume, 1-p A2C 90 ml LV ejection fraction, 1-p A2C 61 % LV end-diastolic volume, 1-p A4C 98 ml LV ejection fraction, 1-p A4C 65 % LV e', lateral 0.072 m/sec LV E/e', lateral 12 LV e', medial 0.065 m/sec LV E/e', medial 13 LV e', average 0.068 m/sec LV E/e', average 13 Ventricular septum Value Reference IVS thickness, ED, PLAX 1.1 cm LVOT Value Reference LVOT ID, A-P 1.9 cm LVOT area 2.8 cm^2 LVOT peak velocity, S 1.01 m/sec LVOT mean velocity, S 0.76 m/sec LVOT VTI, S 21.1 cm LVOT peak gradient, S 4.1 mm Hg LVOT mean gradient, S 2.5 mm Hg Stroke volume (SV), LVOT DP 59 ml Stroke index (SV/bsa), LVOT DP 33 ml/m^2 Aortic valve Value Reference Aortic valve peak velocity, S 1.5 m/sec Aortic valve mean velocity, S 1.09 m/sec Aortic valve VTI, S 28.0 cm Aortic mean gradient, S 5.3 mm Hg Aortic peak gradient, S 9.2 mm Hg VTI ratio, LVOT/AV 0.75 Aortic valve area, VTI 2.1 cm^2 Velocity ratio, peak, LVOT/AV 0.67 Aortic valve area, peak velocity 1.9 cm^2 Velocity ratio, mean, LVOT/AV 0.7 Aortic valve area, mean velocity 2 cm^2 Aortic valve area/bsa, mean velocity 1.1 cm^2/m^2 Aorta Value Reference Aortic root ID, ED 3.4 cm Ascending aorta ID, A-P, S 3.2 cm RVOT Value Reference RVOT VTI, S 18.7 cm Left atrium Value Reference LA ID, A-P, ES 3.6 cm LA ID/bsa, A-P 2.0 cm/m^2 <=2.2 LA area, ES, A4C 20.6 cm^2 8.8 - 23.4 LA area, ES, A2C 18 cm^2 LA volume/bsa, ES, 1-p A4C 40 ml/m^2 LA volume, ES, 2-p 58 ml LA volume/bsa, ES, 2-p 32 ml/m^2 LA/aortic root ratio 1.07 Mitral valve Value Reference Mitral E-wave peak velocity 0.87 m/sec Mitral A-wave peak velocity 1.25 m/sec Mitral deceleration time 171 ms 150 - 230 Mitral pressure half-time 50 ms Mitral peak gradient, D 3 mm Hg Mitral E/A ratio, peak 0.69 Mitral valve area, PHT, DP 4.4 cm^2 Pulmonary veins Value Reference Pulmonary vein peak velocity, S 0.61 m/sec Pulmonary vein peak velocity, D 0.5 m/sec Pulmonary vein velocity ratio, peak, 1.22 S/D Tricuspid valve Value Reference Tricuspid regurg peak velocity 3.1 m/sec Tricuspid peak RV-RA gradient 39.6 mm Hg Right atrium Value Reference RA area, ES, A4C 15 cm^2 8.3 - 19.5 Pulmonic valve Value Reference Pulmonic peak gradient, S 6 mm Hg Legend: (L) and (H) moy values outside specified reference range. I have personally reviewed the images and have reviewed and edited the reported findings. Electronically signed by Brian Marques 01/21/2019 15:22
[2019-01-21 16:19] VITALS: BP 140/80; PULSE 90; RESP 18; TEMP 36.5; O2SAT 97
[2019-01-21 16:34] LABS: Vancomycin, Trough 17.4 ug/mL (10.0-20.0)
[2019-01-21] MEDS: Insulin Aspart 300 UNITS/3 ML PEN SC ×2 (17:00→22:17)
--- NOTE | 2019-01-21 17:17 | W.PM.PROGNOT ---
Date of Service Date of service: 01/21/19 Time of Service: 17:17 Assessment and Plan (1) Cavitary pneumonia: Current visit: Yes Status: Acute Stable. CRP normalized. No leukocytosis, afebrile. Continue Cefepime 2 gm IV Q12h, vancomycin 1.5 gm IV q12 hr, Flagyl 500 mg po q8hr, extend antibiotic course to 01/23/19 per conversation with ID at [facility]. Repeat CT Chest 01/22/19, discuss findings with [facility] ID. Follow up appointment 01/27/2019 at 1315 with [facility] at [facility]. (2) Acute thrombosis of right basilic vein: Current visit: Yes Status: Acute Related to PICC line. PICC removed. Echo today reveals mild to moderately increased pulmonary systolic pressure in the range of 40-45%, LVEF 60-65%, findings consistent with diastolic dysfunction. Continue Apixiban. (3) Pulmonary emboli: Current visit: Yes Status: Chronic Noted on CT chest, likely related to Thrombosis of right basilic vein r/t PICC line. On Apixiban as above. (4) Bacteremia: Current visit: No Status: Acute Cx with Strep spp, Enterococcus faecium, MRSA, As above. Repeat blood cultures negative (12/05/18). TTE negative for endocarditis. Repeat Echo today as above, no evidence of endocarditis. Continue above antibiotic treatment. (5) Diabetes: Current visit: No Status: Chronic Overall good blood sugar control. Actos discontinued. Continue basal bolus insulin and metformin. Continue to monitor blood glucose. Continue ADA diet. (6) Hypertension: Current visit: Yes Status: Chronic Blood pressure within appropriate range. Not currently on treatment. Continue to monitor blood pressure. (7) Pain: Current visit: Yes Status: Acute Improved. Denies pain today. Continue to hold statin. Continue acetaminophen and tramadol for pain control. (8) Normocytic anemia: Current visit: No Status: Acute H&H stable. Will need follow up labs as an outpatient. Continue PPI for GI protection. (9) Schizo affective schizophrenia: Current visit: Yes Status: Acute Stable. Continue his home clozaril and Geodon. (10) DVT prophylaxis: Current visit: No Status: Acute Therapeutic Apixiban. (11) Discharge planning issues: Current visit: No Status: Acute DNR/DNI. [facility] [place], when he is ready for discharge from the hospital. This case was discussed with Dr. Matos who is in agreement. Subjective Interval history since last seen: Koko Estevez is a pleasant 63 year old male resident of [facility] in [place], who is currently being treated for Cavitary pneumonia and bacteremia with triple antibiotics. His end date was previously 01/16/19, however, after his repeat CT chest on 01/12/19 showed persistent noncavitary infiltrate in the right lower lobe. His case was discussed by previous provider with [facility] and the plan is to extend his antibiotic therapy by 1 week to 01/23/19, with repeat imaging prior to completing antibiotic course. The chest CT also noted new finding of multiple pulmonary emboli. He is on therapeutic eliquis for a thrombosis of the right basilic vein associated with previous PICC line. This case was discussed with Mr. Estevez who is in agreement with the plan. He will follow up with ID on 01/27 as scheduled. Mr. Estevez reports feeling well today. He denies any pain- he previously reported pain all over. He denies dizziness, shortness of breath, coughing, wheezing, chest pain/pressure, palpitations, he reports eating and drinking and tolerating his diet, no nausea, vomiting or diarrhea, no dysuria. He has been moving his bowels regularly. He reports that he ambulates frequently in his room. He is looking forward to completing antibiotics in 2 days and discharge home. Exam Narrative Exam Narrative: General: Well-appearing, lying in bed, in no acute distress. He is pleasant and cooperatve. He is speaking in full sentences with no shortness of breath. HEENT: Extraocular movements are intact, pupils are equal and round, mucous membranes moist. Cardiovascular: Heart has regular rate and rhythm, 1-2/6 murmur noted at LSB. Respiratory: Respirations even and unlabored, wheeze noted at RLL. No rales. Gastrointestinal: Normoactive bowel sounds in all 4 quadrants, abdomen soft, nontender on palpation, no masses appreciated. Extremities: No clubbing, cyanosis or edema to bilateral lower extremities. Peripheral pulses intact bilaterally. Objective Objective Clinical Data: Vital Signs Temperature 36.5 C 01/21/19 16:19 Temperature Source Tympanic 01/21/19 16:19 Pulse 90 01/21/19 16:19 Pulse Rhythm Regular 01/21/19 09:00 Respiratory Rate 18 01/21/19 16:19 Respiratory Effort Non-Labored 01/21/19 09:00 Respiratory Depth Normal 01/21/19 09:00 Respiratory Pattern Normal 01/21/19 09:00 Blood Pressure 140/80 01/21/19 16:19 Pulse Oximetry 97 01/21/19 16:19 Oxygen Delivery Method Room Air 01/21/19 16:19 Oxygen Flow Rate 0 01/21/19 16:19 Pain Level 0 01/18/19 16:59 Comment 01/14/19 23:59 Intake & Output 01/20/19 01/21/19 01/21/19 23:59 11:59 23:59 Intake Total 1840 / 2430 960 / 1440 480 / 1440 Output Total 400 / 400 Balance 1440 / 2030 960 / 1440 480 / 1440 Intake: IV 1120 / 1470 370 / 370 Oral 720 / 960 590 / 1070 480 / 1070 Output: Urine 400 / 400 Other: Urine Appearance Clear Clear Comment pt gets up AD VAZQUEZ to void. pt voiding ad vazquez this morning; urine not assessed at this time Voiding Methods Toilet Laboratory Results WBC 5.95 k/cumm (4.4-10.8) 01/20/19 06:30 RBC 3.38 m/cumm (4.50-6.00) L 01/20/19 06:30 Hgb 8.8 g/dL (13.5-17.5) L 01/20/19 06:30 Hct 29.0 % (40.0-50.0) L 01/20/19 06:30 MCV 85.8 fL (80-95) 01/20/19 06:30 MCH 26.0 pg (27.0-33.0) L 01/20/19 06:30 MCHC 30.3 g/dL (32.0-36.0) L 01/20/19 06:30 RDW 17.3 % (11.8-14.1) H 01/20/19 06:30 Plt Count 339 x1000/uL (130-400) 01/20/19 06:30 MPV 9.7 fL (8.0-11.0) 01/20/19 06:30 Immature Gran % 0.3 01/12/19 08:08 Neutrophils % 58.4 01/12/19 08:08 Lymphocytes % 24.3 01/12/19 08:08 Monocytes % 13.9 01/12/19 08:08 Eosinophils % 2.9 01/12/19 08:08 Basophils % 0.2 01/12/19 08:08 Absolute Neutrophils 3.60 k/cumm (1.2-6.7) 01/12/19 08:08 Absolute Lymphocytes 1.50 k/cumm (1.2-3.4) 01/12/19 08:08 Absolute Monocytes 0.86 k/cumm (0.11-0.7) H 01/12/19 08:08 Absolute Eosinophils 0.18 k/cumm (0.0-0.7) 01/12/19 08:08 Absolute Basophils 0.01 k/cumm (0.0-0.2) 01/12/19 08:08 Differential Comment Rbc morph reviewed 01/12/19 08:08 RBC Morphology See below 01/12/19 08:08 Polychromasia Present 01/12/19 08:08 Hypochromasia 1+ 01/12/19 08:08 Poikilocytosis 1+ 01/12/19 08:08 Anisocytosis 1+ 01/12/19 08:08 ESR 40 MM/HR (1-20) H 01/12/19 08:08 Sodium 143 mmol/L (136-145) 01/20/19 06:30 Potassium 4.0 mmol/L (3.5-5.1) 01/20/19 06:30 Chloride 106 mmol/L (98-107) 01/20/19 06:30 Carbon Dioxide 29.5 mmol/L (21.0-32.0) 01/20/19 06:30 Anion Gap 7.5 mmol/L (3-11) 01/20/19 06:30 BUN 19 mg/dL (7-18) H 01/20/19 06:30 Creatinine 0.82 mg/dL (0.70-1.30) 01/20/19 06:30 Estimated GFR/1.73 m2 >= 60.00 (mL/min/1.73m2) 01/20/19 06:30 Glucose 98 mg/dL (70-100) 01/20/19 06:30 Calcium 8.6 mg/dL (8.5-10.1) 01/20/19 06:30 Iron 15 ug/dL (50-175) L 12/16/18 06:46 TIBC 234 ug/dL (250-450) L 12/16/18 06:46 Transferrin % Sat 6 % (20-55) L 12/16/18 06:46 Ferritin 42 ng/mL (8-388) 12/16/18 06:46 Total Bilirubin 0.2 mg/dL (0.2-1.0) 01/13/19 06:20 AST 14 U/L (15-37) L 01/13/19 06:20 ALT 20 U/L (12-78) 01/13/19 06:20 Alkaline Phosphatase 81 U/L (46-116) 01/13/19 06:20 C-Reactive Protein 0.11 mg/dL (0.0-0.3) 01/12/19 08:08 Total Protein 6.1 g/dL (6.4-8.2) L 01/13/19 06:20 Albumin 2.9 g/dL (3.4-5.0) L 01/13/19 06:20 Triglycerides 86 mg/dL (30-150) 12/18/18 06:35 Total Cholesterol 104 mg/dL (50-200) 12/18/18 06:35 LDL Cholesterol Direct 49 mg/dL (<100) 12/18/18 06:35 HDL Cholesterol 40 mg/dL (40-60) 12/18/18 06:35 Vitamin B12 284 pg/mL (193-986) 12/16/18 06:46 Folate 9.5 ng/mL (8.6-20.0) 12/16/18 06:46 Urine Color Yellow (Yellow) 01/02/19 10:55 Urine Clarity Clear 01/02/19 10:55 Urine pH 5.5 (5-8) 01/02/19 10:55 Ur Specific [place] 1.020 (1.005-1.025) 01/02/19 10:55 Urine Protein Negative mg/dL (Negative) 01/02/19 10:55 Urine Ketones Negative mg/dL (Negative) 01/02/19 10:55 Urine Blood Negative (Negative) 01/02/19 10:55 Urine Nitrite Negative (Negative) 01/02/19 10:55 Urine Bilirubin Negative (Negative) 01/02/19 10:55 Urine Urobilinogen 0.2 EU/dL (Up TO 0.2) 01/02/19 10:55 Ur Leukocyte Esterase Trace (Negative) H 01/02/19 10:55 Urine RBC Negative (0-2) 01/02/19 10:55 Urine WBC Negative HPF (0-5) 01/02/19 10:55 Ur Epithelial Cells Negative HPF (Negative) 01/02/19 10:55 Urine Crystals Negative HPF (Negative) 01/02/19 10:55 Urine Bacteria Negative HPF (Negative) 01/02/19 10:55 Urine Casts Negative LPF (Negative) 01/02/19 10:55 Urine Mucus Negative (Negative) 01/02/19 10:55 Urine Other Negative (Negative) 01/02/19 10:55 Ur Culture Indicated? No 01/02/19 10:55 Urine Glucose Negative mg/dL (Negative) 01/02/19 10:55 Vancomycin Trough 17.4 ug/mL (10.0-20.0) 01/21/19 15:50
[2019-01-21 21:47] VITALS: BP 153/88; PULSE 82; RESP 18; TEMP 36.2; O2SAT 96
[2019-01-21] MEDS: metFORMIN 500 MG TAB 1000 MG PO (22:16)
[2019-01-22 01:21] VITALS: O2SAT 96
[2019-01-22] MEDS: Normal Saline Flush 10 ML SYR IVP ×3 (02:06→22:24)
[2019-01-22] MEDS: metroNIDAZOLE 500 MG TAB PO ×3 (05:51→22:23)
[2019-01-22 07:25] VITALS: BP 133/81; PULSE 82; RESP 18; TEMP 36.9; O2SAT 95
[2019-01-22] MEDS: Pantoprazole 40 MG TABCR PO (07:43)
[2019-01-22] MEDS: Acetaminophen 325 MG TAB 650 MG PO (07:43)
[2019-01-22] MEDS: Insulin Glargine 300 UNITS/3 ML PEN 16 UNITS SC (07:44)
[2019-01-22] MEDS: Apixaban 5 MG TAB PO ×2 (07:44→20:10)
[2019-01-22] MEDS: metFORMIN 500 MG TAB 1500 MG PO (07:44)
--- NOTE | 2019-01-22 09:41 | DI.CT_ITS ---
SYMPTOM/DIAGNOSIS: F/U CAVITARY PNEUMONIA AND PE CHEST CT: The study was carried out with intravenous administration of 70 cc's of Omnipaque 350. When compared with the prior study of 01/11, there is again no evidence of cavitary lesions. There has been considerable clearing of the densities noted in the right upper lobe and right middle lobe. There is no evidence of a pleural effusion. The left lung remains clear. Insufficient contrast material is noted in the pulmonary arteries to foreign language interpreter the status of pulmonary emboli noted on the previous examination. The heart is not enlarged. There is no pericardial effusion. SUMMARY: Significant interval clearing of the right upper lobe is demonstrated. Again noted are opacities in the right lower lobe with surrounding inflammatory changes. There is nothing specific to suggest an abscess.
[2019-01-22] MEDS: CEFEPIME 2 GM in Normal Saline 100 ML IVPB ×2 (10:52→22:24)
--- NOTE | 2019-01-22 15:58 | PDOC.CMACT ---
Care Management Activity Note S/O-CM has offered activities from [facility], as well as Reiki, Music therapy and Pet therapy when available. He enjoys his family visits and talking with his siter by phone. P-He will remain in IV Abx through tomorrow, 01/23/19 and will return to [place] after that.
--- NOTE | 2019-01-22 16:03 | PDOC.CMPRO ---
Care Management Progress Note S/O-Spoke with Petra at [facility] today. She indicates that Elias already has follow-upp appt scheduled with Dr Santa on February 27 and a lab draw scheduled for January 28 to do clozapine level. Told her that ride with [facility] already scheduled for tomorrow at 1 PM. They are looking forward to having him return there. A-63 yo man admitted to [facility] on 12/15/18 for IV Abx. P-d/c back to [facility] tomorrow as per MD via [facility] at 1 PM.
--- NOTE | 2019-01-22 16:06 | CMPROGNOTE_ITS ---
Care Management Progress Note S/O-Spoke with Petra at [facility] today. She indicates that Elias already has follow-upp appt scheduled with Dr Santa on February 27 and a lab draw scheduled for January 28 to do clozapine level. Told her that ride with [facility] already scheduled for tomorrow at 1 PM. They are looking forward to having him return there. A-63 yo man admitted to [facility] on 12/15/18 for IV Abx. P-d/c back to [place] tomorrow as per MD via [facility] at 1 PM.
[2019-01-22 16:30] VITALS: BP 154/76; PULSE 95; RESP 18; TEMP 36; O2SAT 97
[2019-01-22] MEDS: metFORMIN 500 MG TAB 1000 MG PO (22:23)
[2019-01-22] MEDS: Insulin Aspart 300 UNITS/3 ML PEN SC (22:25)
[2019-01-22 22:58] VITALS: O2SAT 96
[2019-01-23 00:18] VITALS: BP 173/87; PULSE 83; RESP 18; TEMP 36.8; O2SAT 98
[2019-01-23] MEDS: metroNIDAZOLE 500 MG TAB PO (06:39)
[2019-01-23] MEDS: Pantoprazole 40 MG TABCR PO (06:39)
[2019-01-23 07:25] VITALS: BP 154/93; PULSE 85; RESP 18; TEMP 36.8; O2SAT 96
[2019-01-23] MEDS: Insulin Glargine 300 UNITS/3 ML PEN 16 UNITS SC (07:30)
[2019-01-23] MEDS: metFORMIN 500 MG TAB 1500 MG PO (07:30)
[2019-01-23] MEDS: Apixaban 5 MG TAB PO (07:31)
[2019-01-23] MEDS: traMADol 50 MG TAB 25 MG PO (07:39)
[2019-01-23 07:44] VITALS: O2SAT 96
[2019-01-23] MEDS: CEFEPIME 2 GM in Normal Saline 100 ML IVPB (10:09)
[2019-01-23 10:35] VITALS: O2SAT 96
--- NOTE | 2019-01-23 11:27 | W.PM.DS.N ---
Date of service: 01/23/19 Time of Service: 11:27 DS: Diagnosis Discharge Diagnosis (1) Cavitary pneumonia: Status: Acute (2) Acute thrombosis of right basilic vein: Status: Acute (3) Pulmonary emboli: Status: Chronic (4) Bacteremia: Status: Acute (5) Diabetes: Status: Chronic (6) Hypertension: Status: Chronic (7) Pain: Status: Acute (8) Normocytic anemia: Status: Acute (9) Schizo affective schizophrenia: Status: Acute Discharge Plan Disposition Patient Disposition: [facility] Condition: Good Discharge Details Reason For Visit: SWINGBED - LUNG ABSCESS Admit Date/Time: 12/15/18 19:08 Admit Provider: Drake Herrera Attending Provider: Drake Herrera Primary Care Provider: Vinnie Black Hospital Course Hospital Course: Koko Estevez is a very pleasant 63 year old male, resident of [place] with a past medical history significant for Schizophrenia and diabetes who was admitted from [facility] (after being transferred to [facility] from [facility]) to swing bed status on 12/15/18 to complete triple antibiotic therapy with Vanco, Cefepime and Flagyl for cavitary pneumonia with bacteremia. His blood cultures grew Strep spp, Enterococcus faecium and MRSA. Repeat blood cultures negative (12/05/18). TTE negative for endocarditis. He was receiving his antibiotics through a PICC line to the right basilic vein and unfortunately developed a blood clot at that site and he was initiated on apixaban. He went on to have a chest CT which showed pulmonary emboli, likely related to thrombus of right basilic vein. Follow-up TTE showed mild to moderately increased pulmonary systolic pressure in the range of 40 to 45%, LVEF 60 to 65%, findings consistent with diastolic dysfunction. His original antibiotic end date was one week prior to his discharge, however, after his repeat CT chest 01/12/19 showed persistent noncavitary infiltrate in the right lower lobe. His case was discussed by previous provider with [facility] and the plan is to extend his antibiotic therapy by 1 week with repeat imaging prior to completing antibiotic course. He had a repeat Chest CT on 01/22/19 which showed significant interval clearing of the right upper lobe is demonstrated. Again noted are opacities in the right lower lobe with surrounding inflammatory changes, with nothing specific to suggest an abscess. At the time of his discharge he denies fevers, chills, sweats, shortness of breath, coughing, wheezing, chest pain/pressure, palpitations, bleeding, edema. He is eating and drinking and tolerating his diet without nausea, vomiting or diarrhea. He reported pain all over and his statin was stopped, he currently denies pain. He is looking forward to discharge back to [place]. He is scheduled to follow-up with SHERMAN Whitaker at [facility] on 01/27/19 at 1315, in 4 days time. He will follow up with Pulmonology, Dr. Raza on 02/27/19. He is scheduled to have follow up labs on 01/28/19. Home Meds and New Rx's Prescriptions: New metformin 500 mg Tablet 1,000 mg PO HS Qty: 60 RF: 0 metformin 500 mg Tablet 1,500 mg PO DAILY Qty: 90 RF: 0 Lantus Solostar U-100 Insulin 100 unit/mL (3 mL) Insulin Pen 16 units subcut DAILY Qty: 1 RF: 0 Eliquis 5 mg Tablet 5 mg PO BID Qty: 60 RF: 0 Continued calcium carbonate 200 mg calcium (500 mg) Tablet,Chewable 500 mg PO TID PRN PRNQty: 0 RF: 0 Symbicort 160-4.5 mcg/actuation Hfa Aerosol Inhaler 2 puff Inhalation BID Qty: 0 RF: 0 alum-mag hydroxide-simeth [Mag-Al Plus] 200-200-20 mg/5 mL Suspension 30 ml PO Q2H PRN PRNQty: 0 RF: 0 multivitamin [Multiple Vitamins] Tablet 1 tab PO DAILY Qty: 30 RF: 0 cyanocobalamin (vitamin B-12) [Vitamin B-12] 500 mcg Tablet 1,000 mcg PO DAILY Qty: 60 RF: 0 pantoprazole 40 mg Tablet,Delayed Release (Dr/Ec) 40 mg PO BID@07,1999 Qty: 30 RF: 0 folic acid 1 mg Tablet 1 mg PO DAILY Qty: 30 RF: 0 magnesium chloride [Mag 64] 64 mg Tablet,Delayed Release (Dr/Ec) 64 mg PO BID Qty: 30 RF: 0 ziprasidone HCl [Geodon] 80 MG capsule 160 mg PO .QHS RF: 0 ziprasidone HCl [Geodon] 80 MG capsule 80 mg PO DAILY RF: 0 clozapine [Clozaril] 100 MG tablet 200 mg PO DAILY RF: 0 clozapine [Clozaril] 100 MG tablet 325 mg PO .QHS RF: 0 acetaminophen [Mapap Extra Strength] 500 MG tablet 1,000 mg PO .Q8HRS RF: 0 Flovent HFA 120 PUFF HFA aerosol inhaler 2 puff Inhalation BID RF: 0 Changed tramadol 50 mg Tablet 25 mg PO Q6H PRN PRNQty: 10 RF: 0 docusate sodium [Colace] 100 mg Capsule 100 mg PO DAILY Qty: 30 RF: 0 Discontinued ipratropium-albuterol 0.5 mg-3 mg(2.5 mg base)/3 mL Solution For Nebulization 3 ml UPD Q6H Qty: 0 RF: 0 albuterol sulfate 2.5 mg /3 mL (0.083 %) Solution For Nebulization 2.5 mg UPD Q2H PRN PRNQty: 0 RF: 0 amlodipine 5 mg Tablet 10 mg PO DAILY Qty: 0 RF: 0 famotidine 20 mg Tablet 20 mg PO DAILY Qty: 0 RF: 0 lisinopril 5 mg Tablet 5 mg PO DAILY Qty: 0 RF: 0 Novolog Flexpen U-100 Insulin 100 unit/mL Insulin Pen 7 units subcut 0800,1200,1700 Qty: 0 RF: 0 Novolog Flexpen U-100 Insulin 100 unit/mL Insulin Pen subcut AC & HS Qty: 0 RF: 0 Lantus Solostar U-100 Insulin 100 unit/mL (3 mL) Insulin Pen 25 units subcut HS Qty: 0 RF: 0 Solu-Medrol (PF) 40 mg/mL Recon Soln 40 mg IVP BID Qty: 0 RF: 0 guaifenesin [Mucinex] 600 mg Tablet Extended Release 12hr 600 mg PO BID Qty: 0 RF: 0 metronidazole in NaCl (iso-os) 500 mg/100 mL piggyback 500 mg IV Q6H Qty: 100 RF: 0 piperacillin-tazobactam [Zosyn] 3.375 gram Recon Soln 3.375 g IVPB Q6H Qty: 0 RF: 0 vancomycin 1,000 mg recon soln 1 gm IV Q8H Qty: 1 RF: 0 simvastatin 20 MG tablet 20 mg PO .QHS RF: 0 bupropion HCl [Wellbutrin XL] 300 MG tablet extended release 24 hr 300 mg PO DAILY RF: 0 ProAir RespiClick 90 MCG aerosol powdr breath activated 2 puff Inhalation QID PRNRF: 0 Discharge Instructions Instructions: Pulmonary Embolism (DC), Deep Venous Thrombosis (DC), Lung Abscess (DC), Safe Use of Anticoagulants (DC), Bacteremia (DC) Stand Alone Forms: Nursing Discharge Form Referrals: Vinnie Black [Primary Care Provider] - Ritu Crook MD [ NON-[facility] STAFF PHYSICIAN] - Activity:: Activity as Tolerated Equipment/Supplies:: No Equipment Needed Diet:: Carb Counting Discharge Orders Discharge Orders: Discharge Order (Routine); Ordered 01/23/19 Ordered By: Sydney Wayne Exam Narrative Exam Narrative: General: Well-appearing, lying in bed, in no acute distress. He is pleasant and cooperatve. He is speaking in full sentences with no shortness of breath. HEENT: Extraocular movements are intact, pupils are equal and round, mucous membranes moist. Cardiovascular: Heart has regular rate and rhythm, 1-2/6 murmur noted at LSB. Respiratory: Respirations even and unlabored, no rales or wheezing. Gastrointestinal: Normoactive bowel sounds in all 4 quadrants, abdomen soft, nontender on palpation, no masses appreciated. Extremities: No clubbing, cyanosis or edema to bilateral lower extremities. Peripheral pulses intact bilaterally. DS: Data Vitals/I&O Vitals and I&O: Vital Signs Temperature 36.8 C 01/23/19 07:25 Temperature Source Tympanic 01/23/19 07:25 Pulse 85 01/23/19 07:25 Pulse Rhythm Regular 01/23/19 07:26 Respiratory Rate 18 01/23/19 07:25 Respiratory Effort Non-Labored 01/23/19 07:26 Respiratory Depth Normal 01/23/19 07:26 Respiratory Pattern Normal 01/23/19 07:26 Blood Pressure 154/93 H 01/23/19 07:25 Pulse Oximetry 96 01/23/19 10:35 Oxygen Delivery Method Room Air 01/23/19 10:35 Oxygen Flow Rate 0 01/23/19 10:35 Pain Level 2 01/23/19 07:39 Comment 01/14/19 23:59 Intake & Output 01/22/19 01/22/19 01/23/19 11:59 23:59 11:59 Intake Total 1060 / 1900 840 / 1900 980 / 980 Output Total 800 / 800 1700 / 1700 Balance 260 / 1100 840 / 1100 -720 / -720 Weight 66.1 kg Intake: IV 370 / 730 360 / 730 290 / 290 Oral 690 / 1170 480 / 1170 690 / 690 Output: Urine 800 / 800 1700 / 1700 Other: Urine Color Yellow Pale Yellow Yellow Urine Appearance Clear Clear Clear Urine Odor None None None Comment Pt voids independently. pt voids in the tiolet independently Pt voids ad dayna in toilet and uses urinal on occassion. Voiding Methods Urinal Toilet Urinal Completed studies during hospitalization [Text1]: 01/05/19: RIGHT UPPER EXTREMITY ULTRASOUND: The right upper extremity was evaluated sonographically. The visualized portions of the right jugular vein are patent with normal blood flow and augmentation. The visualized right subclavian vein is unremarkable. The axillary vein appears patent. There is hypoechoic thrombus seen in the right basilic vein. The right cephalic and brachial veins show normal compression, augmentation and color flow. There is a PICC line seen in the right upper extremity. Visualized portions are present in the basilic and subclavian veins. IMPRESSION: 1. Thrombus visualized in the right basilic vein. 2. Right PICC line present. CHEST X-RAY: Single AP view of the chest. Comparison is 12/05/18. The heart size and pulmonary vasculature are within normal limits. There has been interval decrease in the opacity in the right lung base. No new infiltrates, effusions or pneumothoraces are identified. There is a right PICC line present, the tip of the catheter is seen in good position in the superior vena cava. IMPRESSION: 1. Interval placement of a right PICC line, the tip of the catheter is in good position in the superior vena cava. 2. Improvement in the opacity in the right lung base compared to 12/05/18. 01/09/19: [facility] UPPER EXTREMITY VENOUS ULTRASOUND: Duplex evaluation of the deep venous system of the right upper extremity was performed according to the usual protocol. The examination is compared with examination of 01/05/19 which showed thrombus in basilic vein but no deep vein thrombus. The previously noted PICC line has been withdrawn. There is persistent thrombus in basilic vein grossly unchanged from the previous examination. No new thrombus identified in the deep venous system. CONCLUSION: Stable appearance of basilic vein thrombus since 01/05/19. CT ANGIOGRAPHY CHEST: 01/11/19 CT angiography of the chest was performed with a bolus infusion of 100 cc Omnipaque 350. Examination is compared with previous examination of 12/01/2018 which showed cavitating lung lesions on the right. On today's examination the left lung remains clear. Right lung shows markedly decreased prominence of infrapulmonary infiltrates with some persistent noncavitary infiltrate in the right lower lobe. Tracheobronchial tree appears intact. On today's examination there is new finding of multiple pulmonary emboli predominantly in lower lobe vessels but also involving additional segmental pulmonary arteries in right middle lobe and left upper lobe. No pleural effusion seen. The liver, spleen, pancreas, adrenals and kidneys are unremarkable as visualized. No mediastinal or hilar adenopathy. CONCLUSION: Marked interval improvement of right lung cavitary lesions. No cavitation at this time. New finding of multiple pulmonary emboli as described above. Date of study: 01/21/2019 Transthoracic Echocardiography M-mode, complete 2D, complete spectral Doppler, and color Doppler *STUDY CONCLUSIONS* Summary: 1. Left ventricle: The cavity size was normal. Wall thickness was at the upper limits of normal. Systolic function was normal. The estimated ejection fraction was 60-65%. Wall motion was normal; there were no regional wall motion abnormalities. Findings consistent with diastolic dysfunction. Doppler parameters are consistent with high ventricular filling pressure. 2. Left atrium: The atrium was mildly dilated. 3. Right ventricle: The cavity size was normal. Wall thickness was normal. Systolic function was normal. 4. Pulmonary arteries: Pulmonary systolic pressure was mildly to moderately increased, in the range of 40mm Hg to 45mm Hg. 01/22/19: CHEST CT: The study was carried out with intravenous administration of 70 cc's of Omnipaque 350. When compared with the prior study of 01/11, there is again no evidence of cavitary lesions. There has been considerable clearing of the densities noted in the right upper lobe and right middle lobe. There is no evidence of a pleural effusion. The left lung remains clear. 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 The heart is not enlarged. There is no pericardial effusion. SUMMARY: Significant interval clearing of the right upper lobe is demonstrated. Again noted are opacities in the right lower lobe with surrounding inflammatory changes. There is nothing specific to suggest an abscess. [facility] Medical History H/O schizophrenia (Acute) H/O: CVA (cerebrovascular accident) (Acute) COPD (chronic obstructive pulmonary disease) (Chronic) Diabetes mellitus (Chronic) Family History Mother No problems noted. Social History Smoking/Tobacco Use Status: Former Tobacco Use Tobacco: How many years used: 43 Alcohol Intake: former Drug use: Occasionally Substance use type: marijuana Do you feel safe at home: Yes Do you feel safe in your relationship?: Yes
--- NOTE | 2019-01-23 11:40 | DSE_ITS ---
Date of service: 01/23/19 Time of Service: 11:27 DS: Diagnosis Discharge Diagnosis (1) Cavitary pneumonia: Status: Acute (2) Acute thrombosis of right basilic vein: Status: Acute (3) Pulmonary emboli: Status: Chronic (4) Bacteremia: Status: Acute (5) Diabetes: Status: Chronic (6) Hypertension: Status: Chronic (7) Pain: Status: Acute (8) Normocytic anemia: Status: Acute (9) Schizo affective schizophrenia: Status: Acute Discharge Plan Disposition Patient Disposition: [facility] III [facility] Condition: Good Discharge Details Reason For Visit: SWINGBED - LUNG ABSCESS Admit Date/Time: 12/15/18 19:08 Admit Provider: Drake Herrera Attending Provider: Drake Herrera Primary Care Provider: Vinnie Black Hospital Course Hospital Course: Koko Estevez is a very pleasant 63 year old male, resident of [place] with a past medical history significant for Schizophrenia and diabetes who was admitted from [facility] (after being transferred to [facility] from [facility]) to swing bed status on 12/15/18 to complete triple antibiotic therapy with Vanco, Cefepime and Flagyl for cavitary pneumonia with bacteremia. His blood cultures grew Strep spp, Enterococcus faecium and MRSA. Repeat blood cultures negative (12/05/18). TTE negative for endocarditis. He was receiving his antibiotics through a PICC line to the right basilic vein and unfortunately developed a blood clot at that site and he was initiated on apixaban. He went on to have a chest CT which showed pulmonary emboli, likely related to thrombus of right basilic vein. Follow-up TTE showed mild to moderately increased pulmonary systolic pressure in the range of 40 to 45%, LVEF 60 to 65%, findings consistent with diastolic dysfunction. His original antibiotic end date was one week prior to his discharge, however, after his repeat CT chest 01/12/19 showed persistent noncavitary infiltrate in the right lower lobe. His case was discussed by previous provider with [facility] and the plan is to extend his antibiotic therapy by 1 week with repeat imaging prior to completing antibiotic course. He had a repeat Chest CT on 01/22/19 which showed significant interval clearing of the right upper lobe is demonstrated. Again noted are opacities in the right lower lobe with surrounding inflammatory changes, with nothing specific to suggest an abscess. At the time of his discharge he denies fevers, chills, sweats, shortness of breath, coughing, wheezing, chest pain/pressure, palpitations, bleeding, edema. He is eating and drinking and tolerating his diet without nausea, vomiting or diarrhea. He reported pain all over and his statin was stopped, he currently denies pain. He is looking forward to discharge back to [place]. He is scheduled to follow-up with SHERMAN Whitaker at [facility] on 01/27/19 at 1315, in 4 days time. He will follow up with Pulmonology, Dr. Raza on 02/27/19. He is scheduled to have follow up labs on 01/28/19. Home Meds and New Rx's Prescriptions: New metformin 500 mg Tablet 1,000 mg PO HS Qty: 60 RF: 0 metformin 500 mg Tablet 1,500 mg PO DAILY Qty: 90 RF: 0 Lantus Solostar U-100 Insulin 100 unit/mL (3 mL) Insulin Pen 16 units subcut DAILY Qty: 1 RF: 0 Eliquis 5 mg Tablet 5 mg PO BID Qty: 60 RF: 0 Continued calcium carbonate 200 mg calcium (500 mg) Tablet,Chewable 500 mg PO TID PRN PRNQty: 0 RF: 0 Symbicort 160-4.5 mcg/actuation Hfa Aerosol Inhaler 2 puff Inhalation BID Qty: 0 RF: 0 alum-mag hydroxide-simeth [Mag-Al Plus] 200-200-20 mg/5 mL Suspension 30 ml PO Q2H PRN PRNQty: 0 RF: 0 multivitamin [Multiple Vitamins] Tablet 1 tab PO DAILY Qty: 30 RF: 0 cyanocobalamin (vitamin B-12) [Vitamin B-12] 500 mcg Tablet 1,000 mcg PO DAILY Qty: 60 RF: 0 pantoprazole 40 mg Tablet,Delayed Release (Dr/Ec) 40 mg PO BID@07,1999 Qty: 30 RF: 0 folic acid 1 mg Tablet 1 mg PO DAILY Qty: 30 RF: 0 magnesium chloride [Mag 64] 64 mg Tablet,Delayed Release (Dr/Ec) 64 mg PO BID Qty: 30 RF: 0 ziprasidone HCl [Geodon] 80 MG capsule 160 mg PO .QHS RF: 0 ziprasidone HCl [Geodon] 80 MG capsule 80 mg PO DAILY RF: 0 clozapine [Clozaril] 100 MG tablet 200 mg PO DAILY RF: 0 clozapine [Clozaril] 100 MG tablet 325 mg PO .QHS RF: 0 acetaminophen [Mapap Extra Strength] 500 MG tablet 1,000 mg PO .Q8HRS RF: 0 Flovent HFA 120 PUFF HFA aerosol inhaler 2 puff Inhalation BID RF: 0 Changed tramadol 50 mg Tablet 25 mg PO Q6H PRN PRNQty: 10 RF: 0 docusate sodium [Colace] 100 mg Capsule 100 mg PO DAILY Qty: 30 RF: 0 Discontinued ipratropium-albuterol 0.5 mg-3 mg(2.5 mg base)/3 mL Solution For Nebulization 3 ml UPD Q6H Qty: 0 RF: 0 albuterol sulfate 2.5 mg /3 mL (0.083 %) Solution For Nebulization 2.5 mg UPD Q2H PRN PRNQty: 0 RF: 0 amlodipine 5 mg Tablet 10 mg PO DAILY Qty: 0 RF: 0 famotidine 20 mg Tablet 20 mg PO DAILY Qty: 0 RF: 0 lisinopril 5 mg Tablet 5 mg PO DAILY Qty: 0 RF: 0 Novolog Flexpen U-100 Insulin 100 unit/mL Insulin Pen 7 units subcut 0800,1200,1700 Qty: 0 RF: 0 Novolog Flexpen U-100 Insulin 100 unit/mL Insulin Pen subcut AC & HS Qty: 0 RF: 0 Lantus Solostar U-100 Insulin 100 unit/mL (3 mL) Insulin Pen 25 units subcut HS Qty: 0 RF: 0 Solu-Medrol (PF) 40 mg/mL Recon Soln 40 mg IVP BID Qty: 0 RF: 0 guaifenesin [Mucinex] 600 mg Tablet Extended Release 12hr 600 mg PO BID Qty: 0 RF: 0 metronidazole in NaCl (iso-os) 500 mg/100 mL piggyback 500 mg IV Q6H Qty: 100 RF: 0 piperacillin-tazobactam [Zosyn] 3.375 gram Recon Soln 3.375 g IVPB Q6H Qty: 0 RF: 0 vancomycin 1,000 mg recon soln 1 gm IV Q8H Qty: 1 RF: 0 simvastatin 20 MG tablet 20 mg PO .QHS RF: 0 bupropion HCl [Wellbutrin XL] 300 MG tablet extended release 24 hr 300 mg PO DAILY RF: 0 ProAir RespiClick 90 MCG aerosol powdr breath activated 2 puff Inhalation QID PRNRF: 0 Discharge Instructions Instructions: Pulmonary Embolism (DC), Deep Venous Thrombosis (DC), Lung Abscess (DC), Safe Use of Anticoagulants (DC), Bacteremia (DC) Stand Alone Forms: Nursing Discharge Form Referrals: Vinnie Black [Primary Care Provider] - Ritu Crook MD [ NON-[facility] STAFF PHYSICIAN] - Activity:: Activity as Tolerated Equipment/Supplies:: No Equipment Needed Diet:: Carb Counting Discharge Orders Discharge Orders: Discharge Order (Routine); Ordered 01/23/19 Ordered By: Sydney Wayne Exam Narrative Exam Narrative: General: Well-appearing, lying in bed, in no acute distress. He is pleasant and cooperatve. He is speaking in full sentences with no shortness o f breath. HEENT: Extraocular movements are intact, pupils are equal and round, mucous membranes moist. Cardiovascular: Heart has regular rate and rhythm, 1-2/6 murmur noted at LSB. Respiratory: Respirations even and unlabored, no rales or wheezing. Gastrointestinal: Normoactive bowel sounds in all 4 quadrants, abdomen soft, nontender on palpation, no masses appreciated. Extremities: No clubbing, cyanosis or edema to bilateral lower extremities. Peripheral pulses intact bilaterally. DS: Data Vitals/I&O Vitals and I&O: Vital Signs Temperature 36.8 C 01/23/19 07:25 Temperature Source Tympanic 01/23/19 07:25 Pulse 85 01/23/19 07:25 Pulse Rhythm Regular 01/23/19 07:26 Respiratory Rate 18 01/23/19 07:25 Respiratory Effort Non-Labored 01/23/19 07:26 Respiratory Depth Normal 01/23/19 07:26 Respiratory Pattern Normal 01/23/19 07:26 Blood Pressure 154/93 H 01/23/19 07:25 Pulse Oximetry 96 01/23/19 10:35 Oxygen Delivery Method Room Air 01/23/19 10:35 Oxygen Flow Rate 0 01/23/19 10:35 Pain Level 2 01/23/19 07:39 Comment 01/14/19 23:59 Intake & Output 01/22/19 01/22/19 01/23/19 11:59 23:59 11:59 Intake Total 1060 / 1900 840 / 1900 980 / 980 Output Total 800 / 800 1700 / 1700 Balance 260 / 1100 840 / 1100 -720 / -720 Weight 66.1 kg Intake: IV 370 / 730 360 / 730 290 / 290 Oral 690 / 1170 480 / 1170 690 / 690 Output: Urine 800 / 800 1700 / 1700 Other: Urine Color Yellow Pale Yellow Yellow Urine Appearance Clear Clear Clear Urine Odor None None None Comment Pt voids independently. pt voids in the tiolet independently Pt voids ad dayna in toilet and uses urinal on occassion. Voiding Methods Urinal Toilet Urinal Completed studies during hospitalization [Text1]: 01/05/19: RIGHT UPPER EXTREMITY ULTRASOUND: The right upper extremity was evaluated sonographically. The visualized portions of the right jugular vein are patent with normal blood flow and augment ation. The visualized right subclavian vein is unremarkable. The axillary vein appears patent. There is hypoechoic thrombus seen in the right basilic vein. The right cephalic and brachial veins show normal compression, augmentation and color flow. There is a PICC line seen in the right upper extremity. Visualized portions are present in the basilic and subclavian veins. IMPRESSION: 1. Thrombus visualized in the right basilic vein. 2. Right PICC line present. CHEST X-RAY: Single AP view of the chest. Comparison is 12/05/18. The heart size and pulmonary vasculature are within normal limits. There has been interval decrease in the opacity in the right lung base. No new infiltrates, effusions or pneumothoraces are identified. There is a right PICC line present, the tip of the catheter is seen in good position in the superior vena cava. IMPRESSION: 1. Interval placement of a right PICC line, the tip of the catheter is in good position in the superior vena cava. 2. Improvement in the opacity in the right lung base compared to 12/05/18. [facility]: Duplex evaluation of the deep venous system of the right upper extremity was p erformed according to the usual protocol. The examination is compared with examination of 01/05/19 which showed thrombus in basilic vein but no deep vein thrombus. The previously noted PICC line has been withdrawn. There is persistent thrombus in basilic vein grossly unchanged from the previous examination. No new thrombus identified in the deep venous system. CONCLUSION: Stable appearance of basilic vein thrombus since 01/05/19. CT ANGIOGRAPHY CHEST: 01/11/19 CT angiography of the chest was performed with a bolus infusion of 100 cc Omnipaque 350. Examination is compared with previous examination of 12/01/2018 which showed cavitating lung lesions on the right. On today's examination the left lung remains clear. Right lung shows markedly decreased prominence of infrapulmonary infiltrates wit h some persistent noncavitary infiltrate in the right lower lobe. Tracheobronchial tree appears intact. On today's examination there is new finding of multiple pulmonary emboli predominantly in lower lobe vessels but also involving additional segmental pulmonary arteries in right middle lobe and left upper lobe. No pleural effusion seen. The liver, spleen, pancreas, adrenals and kidneys are unremarkable as visualized. No mediastinal or hilar adenopathy. CONCLUSION: Marked interval improvement of right lung cavitary lesions. No cavitation at this time. New finding of multiple pulmonary emboli as described above. Date of study: 01/21/2019 Transthoracic Echocardiography M-mode, complete 2D, complete spectral Doppler, and color Doppler *STUDY CONCLUSIONS* Summary: 1. Left ventricle: The cavity size was normal. Wall thickness was at the upper limits of normal. Systolic function was normal. The estimated ejection fraction was 60-65%. Wall motion was normal; there were no regional wall motion abnormalities. Findings consistent with diastolic dysfunction. Doppler parameters are consistent with high ventricular filling pressure. 2. Left atrium: The atrium was mildly dilated. 3. Right ventricle: The cavity size was normal. Wall thickness was normal. Systolic function was normal. 4. Pulmonary arteries: Pulmonary systolic pressure was mildly to moderately increased, in the range of 40mm Hg to 45mm Hg. 01/22/19: CHEST CT: The study was carried out with intravenous administration of 70 cc's of Omnipaque 350. When compared with the prior study of 01/11, there is again no evidence of cavitary lesions. There has been considerable clearing of the densities noted in the right upper lobe and right middle lobe. There is no evidence of a pleural effusion. The left lung remains clear. 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 The heart is not enlarged. There is no pericardial effusion. SUMMARY: Significant interval clearing of the right upper lobe is demonstrated. Again noted are opacities in the right lower lobe with surrounding inflammatory changes. There is nothing specific to suggest an absce ss. [facility] Medical History H/O schizophrenia (Acute) H/O: CVA (cerebrovascular accident) (Acute) COPD (chronic obstructive pulmonary disease) (Chronic) Diabetes mellitus (Chronic) Family History Mother No problems noted. Social History Smoking/Tobacco Use Status: Former Tobacco Use Tobacco: How many years used: 43 Alcohol Intake: former Drug use: Occasionally Substance use type: marijuana Do you feel safe at home: Yes Do you feel safe in your relationship?: Yes
[2019-01-23] MEDS: Insulin Aspart 300 UNITS/3 ML PEN SC (12:05)
--- NOTE | 2019-01-24 00:40 | PDOC.CMDIS ---
- If Service Date Differs Date of service: 01/23/19 Time of Service: 13:00 LACE Index Scoring Tool - Questions: Length of Stay (in days): 14 or more Acuity (Admit via E.D.?): No Comorbidities: Diabetes w/o Complication, Chronic Pulmonary Disease Care Management Discharge Reason for Hospitalization: Cavitary Pneumonia, lung abscess, SB1 x 6 weeks for IV antibioitcs Discharge Plan: Elias is being discharged home today back to [facility]. [facility] will transport. CM contacted director of the level 3 and reviewed discharge instructions including new medications. CM reviewed follow up appointments including [facility]. Elias states he is ready for discharge. Patient/Family Education Needs: Discharge instructions, limitations and follow up plan of care. Services Needed at Discharge: Transportation - MH Services (Omit if N/A) Current MH Services: [facility]
--- NOTE | 2019-01-24 00:48 | CMDISCH_ITS ---
- If Service Date Differs Date of service: 01/23/19 Time of Service: 13:00 LACE Index Scoring Tool - Questions: Length of Stay (in days): 14 or more Acuity (Admit via E.D.?): No Comorbidities: Diabetes w/o Complication, Chronic Pulmonary Disease Care Management Discharge Reason for Hospitalization: Cavitary Pneumonia, lung abscess, SB1 x 6 weeks for IV antibioitcs Discharge Plan: Elias is being discharged home today back to [facility]. [facility] will transport. CM contacted director of the level 3 and reviewed discharge instructions including new medications. CM reviewed follow up appointments including [facility]. Elias states he is ready for discharge. Patient/Family Education Needs: Discharge instructions, limitations and follow up plan of care. Services Needed at Discharge: Transportation - MH Services (Omit if N/A) Current MH Services: [facility]
== END 2019-01-23 12:48 | disposition designated cancer center or children's hospital (05) | DRG 194 ==
PROVIDERS: Family Medicine; Internal Medicine; Nurse Practitioner; Admitting Provider Internal Medicine; PCP Specialist/Technologist Athletic Trainer; Visit Provider Family Medicine
DX: J18.8 Other pneumonia, unspecified organism (principal); R78.81 Bacteremia; T82.868A Thrombosis due to vascular prosthetic devices, implants and grafts, initial encounter; I82.611 Acute embolism and thrombosis of superficial veins of right upper extremity; T82.818A Embolism due to vascular prosthetic devices, implants and grafts, initial encounter; Z79.2 Long term (current) use of antibiotics; J98.4 Other disorders of lung; Z71.3 Dietary counseling and surveillance; R53.1 Weakness; R52 Pain, unspecified; J44.9 Chronic obstructive pulmonary disease, unspecified; Z87.891 Personal history of nicotine dependence; E11.9 Type 2 diabetes mellitus without complications; I10 Essential (primary) hypertension; F25.9 Schizoaffective disorder, unspecified; D64.9 Anemia, unspecified; B95.4 Other streptococcus as the cause of diseases classified elsewhere; B95.62 Methicillin resistant Staphylococcus aureus infection as the cause of diseases classified elsewhere; B95.2 Enterococcus as the cause of diseases classified elsewhere; Z79.4 Long term (current) use of insulin; I51.89 Other ill-defined heart diseases; I51.7 Cardiomegaly; I27.29 Other secondary pulmonary hypertension
CPT/HCPCS: 36415; 36569; 71045; 80048; 80053; 80061; 83721; 85027; 85652; 87081; 93306; 94618; 99232; 99239; 99306; 99308; 99309; 99310; 99316; NC; 71260; 80202; 81003; 81015; 82565; 82607; 82728; 82746; 83540; 83550; 85025; 85049; 86140; 93971; J1650; J2997; J3370

== ENCOUNTER 2019-01-26 09:25 | Outpatient (CLI) | payer MEDICARE, MEDICAID, SELFPAY ==
[2019-01-26 09:43] LABS: Abs Immature Grans 0.07 k/cumm (0.0-0.09); Eosinophils % 0.2; HCT 29.9 % (40.0-50.0); HGB 9.2 g/dL (13.5-17.5); Immature Grans % 0.3; Lymphocytes % 2.2; Mean Corp. HGB Concentration 30.8 g/dL (32.0-36.0); Mean Corpuscular Hemoglobin 26.7 pg (27.0-33.0); Mean Corpuscular Volume 86.7 fL (80-95); Mean Platelet Volume 9.4 fL (8.0-11.0); Neutrophils % 92.3; Platelet Count 328 x1000/uL (130-400); RBC 3.45 m/cumm (4.50-6.00); RBC Distribution Width 17.9 % (11.8-14.1); White Blood Cell Count 24.91 k/cumm (4.4-10.8)
[2019-01-26 09:49] LABS: Absolute Eosinophil Count 0.05 k/cumm (0.0-0.7); Absolute Lymphocyte Count 0.55 k/cumm (1.2-3.4); Absolute Monocyte Count 1.25 k/cumm (0.11-0.7); Absolute Neutrophil Count 22.99 k/cumm (1.2-6.7)
== END 2019-01-26 09:45 ==
PROVIDERS: PCP Specialist/Technologist Athletic Trainer; Visit Provider Nurse Practitioner Psychiatric/Mental Health
DX: F20.9 Schizophrenia, unspecified (principal); Z79.899 Other long term (current) drug therapy
CPT/HCPCS: 36415; 85025

== ENCOUNTER 2019-02-25 08:50 | Outpatient (CLI) | payer MEDICARE, MEDICAID, SELFPAY ==
[2019-02-25 09:27] LABS: Abs Immature Grans 0.03 k/cumm (0.0-0.09); Absolute Basophil Count 0.01 k/cumm (0.0-0.2); Absolute Eosinophil Count 0.12 k/cumm (0.0-0.7); Absolute Lymphocyte Count 1.54 k/cumm (1.2-3.4); Absolute Monocyte Count 0.88 k/cumm (0.11-0.7); Absolute Neutrophil Count 6.42 k/cumm (1.2-6.7); Basophils % 0.1; Eosinophils % 1.3; HCT 34.1 % (40.0-50.0); HGB 10.4 g/dL (13.5-17.5); Immature Grans % 0.3; Lymphocytes % 17.1; Mean Corp. HGB Concentration 30.5 g/dL (32.0-36.0); Mean Corpuscular Hemoglobin 25.1 pg (27.0-33.0); Mean Corpuscular Volume 82.2 fL (80-95); Mean Platelet Volume 9.6 fL (8.0-11.0); Monocytes % 9.8; Neutrophils % 71.4; Platelet Count 261 x1000/uL (130-400); RBC 4.15 m/cumm (4.50-6.00); RBC Distribution Width 17.8 % (11.8-14.1)
== END 2019-02-25 09:10 ==
PROVIDERS: PCP Specialist/Technologist Athletic Trainer; Visit Provider Nurse Practitioner Psychiatric/Mental Health
DX: F20.9 Schizophrenia, unspecified (principal); Z79.899 Other long term (current) drug therapy
CPT/HCPCS: 36415; 85025

== ENCOUNTER 2019-02-25 09:38 | Emergency (ER) | payer MEDICARE, MEDICAID, SELFPAY ==
[2019-02-25 09:41] VITALS: BP 127/68; PULSE 99; RESP 21; TEMP 36.6; O2SAT 97
--- NOTE | 2019-02-25 09:51 | W.ED.GENAD ---
Discharge Plan Disposition Patient Disposition: HOME Condition: Improving Discharge Details Chief Complaint: GenMedical Clinical Impression: Generalized body aches Primary Care Provider: Vinnie Black ED Provider: Tyshawn Aguirre Home Meds and New Rx's Prescriptions: Continued calcium carbonate 200 mg calcium (500 mg) Tablet,Chewable 500 mg PO TID PRN PRNQty: 0 RF: 0 Symbicort 160-4.5 mcg/actuation Hfa Aerosol Inhaler 2 puff Inhalation BID Qty: 0 RF: 0 alum-mag hydroxide-simeth [Mag-Al Plus] 200-200-20 mg/5 mL Suspension 30 ml PO Q2H PRN PRNQty: 0 RF: 0 metformin 500 mg Tablet 1,000 mg PO HS Qty: 60 RF: 0 metformin 500 mg Tablet 1,500 mg PO DAILY Qty: 90 RF: 0 Lantus Solostar U-100 Insulin 100 unit/mL (3 mL) Insulin Pen 16 units subcut DAILY Qty: 1 RF: 0 Eliquis 5 mg Tablet 5 mg PO BID Qty: 60 RF: 0 multivitamin [Multiple Vitamins] Tablet 1 tab PO DAILY Qty: 30 RF: 0 tramadol 50 mg Tablet 25 mg PO Q6H PRN PRNQty: 10 RF: 0 cyanocobalamin (vitamin B-12) [Vitamin B-12] 500 mcg Tablet 1,000 mcg PO DAILY Qty: 60 RF: 0 pantoprazole 40 mg Tablet,Delayed Release (Dr/Ec) 40 mg PO BID@0730,2000 Qty: 30 RF: 0 docusate sodium [Colace] 100 mg Capsule 100 mg PO DAILY Qty: 30 RF: 0 folic acid 1 mg Tablet 1 mg PO DAILY Qty: 30 RF: 0 magnesium chloride [Mag 64] 64 mg Tablet,Delayed Release (Dr/Ec) 64 mg PO BID Qty: 30 RF: 0 ziprasidone HCl [Geodon] 80 MG capsule 160 mg PO .QHS RF: 0 ziprasidone HCl [Geodon] 80 MG capsule 80 mg PO DAILY RF: 0 clozapine [Clozaril] 100 MG tablet 200 mg PO DAILY RF: 0 clozapine [Clozaril] 100 MG tablet 325 mg PO .QHS RF: 0 acetaminophen [Mapap Extra Strength] 500 MG tablet 1,000 mg PO .Q8HRS RF: 0 Flovent HFA 120 PUFF HFA aerosol inhaler 2 puff Inhalation BID RF: 0 Discharge Instructions Additional Instructions: You were recently started on tramadol 12.5 mg per dose. Please consider increasing this to 25 mg per dose. You are given a 25 mg dose in the ER. Continue all of your other regularly prescribed medications. Follow-up with Dr. Snow for recheck in the next 7 to 10 days time. Return for any acute Medical Decision Making 63-year-old male presents from home complaining of generalized body ache for months time. He recently has had a prolonged inpatient stay both at the [facility] and then transferred for a swing bed and triple antibiotic therapy for a cavitary pneumonia here at [facility]. He has been returned to his community home. He states he has dull, achy, constant generalized pain is worse today. He does have acetaminophen on his list of medications. Med reconciliation performed with [facility] He ran out of medicines for 1 day 24 hours ago and now has had been restarted. These include recently initiated tramadol of 12.5 mg. We will ask that this be increased to 25 mg as a trial for his ongoing pain. It is no evidence of recurrent illness at this time. He is stable for discharge to home HPI General Mode of arrival: ambulatory. Date/Time Provider Initiated Documentation: 02/25/19 09:40. Limitations to Documentation: no limitations. Information obtained by: patient. History of Present Illness 63 year old M presents to the emergency department with the chief complaint of Generalized body ache for months, described as mild, Quality is described as constant, and is localized to the chest, back and abdomen. Patient reports no radiation. Patient started experiencing this week(s) and it has been constant. No relieving factors improve symptom(s), No exacerbating factors reported . Patient notes no other symptoms.; denies chest pain, cough and fever/chills. Patient did receive the following treatments prior to arrival, none Related Data Home Medications Medication Instructions Recorded Confirmed Flovent HFA 2 puff INHALATION BID 06/18/17 12/20/18 acetaminophen [Mapap Extra 1,000 mg PO .Q8HRS 06/18/17 12/20/18 Strength] clozapine [Clozaril] 200 mg PO DAILY 06/18/17 12/20/18 clozapine [Clozaril] 325 mg PO .QHS 06/18/17 12/20/18 ziprasidone HCl [Geodon] 80 mg PO DAILY 06/18/17 12/20/18 ziprasidone HCl [Geodon] 160 mg PO .QHS 06/18/17 12/20/18 Symbicort 2 puff INHALATION BID #0 g 12/05/18 12/20/18 alum-mag hydroxide-simeth [Mag-Al 30 ml PO Q2H PRN PRN #0 ml 12/05/18 12/20/18 Plus] calcium carbonate 500 mg PO TID PRN PRN #0 tab 12/05/18 12/20/18 Eliquis 5 mg PO BID #60 tab 01/23/19 Lantus Solostar U-100 Insulin 16 units SUBCUT DAILY #1 pkg 01/23/19 cyanocobalamin (vitamin B-12) 1,000 mcg PO DAILY #60 tab 01/23/19 [Vitamin B-12] docusate sodium [Colace] 100 mg PO DAILY #30 cap 01/23/19 folic acid 1 mg PO DAILY #30 tab 01/23/19 magnesium chloride [Mag 64] 64 mg PO BID #30 tab 01/23/19 metformin 1,000 mg PO HS #60 tab 01/23/19 metformin 1,500 mg PO DAILY #90 tab 01/23/19 multivitamin [Multiple Vitamins] 1 tab PO DAILY #30 tab 01/23/19 pantoprazole 40 mg PO BID@0730,2000 #30 tab 01/23/19 tramadol 25 mg PO Q6H PRN PRN #10 tab 01/23/19 Previous Rx's Medication Instructions Recorded Symbicort 2 puff INHALATION BID #0 g 12/05/18 alum-mag hydroxide-simeth [Mag-Al 30 ml PO Q2H PRN PRN #0 ml 12/05/18 Plus] calcium carbonate 500 mg PO TID PRN PRN #0 tab 12/05/18 Eliquis 5 mg PO BID #60 tab 01/23/19 Lantus Solostar U-100 Insulin 16 units SUBCUT DAILY #1 pkg 01/23/19 cyanocobalamin (vitamin B-12) 1,000 mcg PO DAILY #60 tab 01/23/19 [Vitamin B-12] docusate sodium [Colace] 100 mg PO DAILY #30 cap 01/23/19 folic acid 1 mg PO DAILY #30 tab 01/23/19 magnesium chloride [Mag 64] 64 mg PO BID #30 tab 01/23/19 metformin 1,000 mg PO HS #60 tab 01/23/19 metformin 1,500 mg PO DAILY #90 tab 01/23/19 multivitamin [Multiple Vitamins] 1 tab PO DAILY #30 tab 01/23/19 pantoprazole 40 mg PO BID@0730,1999 #30 tab 01/23/19 tramadol 25 mg PO Q6H PRN PRN #10 tab 01/23/19 Allergies Allergy/AdvReac Type Severity Reaction Status Date / Time No Known Allergies Allergy Unverified 02/25/19 09:46 General Stated Complaint: GenMedical KENYON: 3 Review of Systems Review of Systems 6 systems reviewed and otherwise - [facility] Medical History H/O schizophrenia (Acute) H/O: CVA (cerebrovascular accident) (Acute) COPD (chronic obstructive pulmonary disease) (Chronic) Diabetes mellitus (Chronic) Family History Mother No problems noted. Social History Smoking/Tobacco Use Status: Former Tobacco Use Tobacco: How many years used: 43 Alcohol Intake: former Drug use: Occasionally Substance use type: marijuana Do you feel safe at home: Yes Do you feel safe in your relationship?: Yes Exam Narrative Exam Narrative: GEN: awake, alert, oriented 3. Pleasant, well groomed, interactive. HEAD: Normocephalic, atraumatic ENT: Mucous membranes moist, oropharynx unremarkable, External ear exam unremarkable EYES: PERRL, EOMI NECK: Full ROM, no JESSE, no menigismus CHEST/RESP: Nontender, clear to auscultation bilateral, no wheeze/rhonchi/rales CARDIOVASCULAR: RRR, no murmur, rub zackary. 2+ Rad pulse bilateral ABDOMEN: Soft, nontender, no mass. +Bowel sounds EXT: Full ROM, no edema, no rash Neuro: Grossly normal neurologic exam, conversant, interactive. Psych: Speech fluent, thoughts congruent, affect normal Course Vital Signs Temperature 36.6 C 02/25/19 09:41 Pulse 99 H 02/25/19 09:41 Respiratory Rate 21 02/25/19 09:41 Blood Pressure 127/68 02/25/19 09:41 Pulse Oximetry 97 02/25/19 09:41 Temperature 36.6 C 02/25/19 09:41 Temperature Source Temporal Artery Scan 02/25/19 09:41 Pulse 99 H 02/25/19 09:41 Respiratory Rate 21 02/25/19 09:41 Respiratory Effort Non-Labored 02/25/19 09:44 Blood Pressure 127/68 02/25/19 09:41 Blood Pressure Position Sitting 02/25/19 09:41 Pulse Oximetry 97 02/25/19 09:41 Oxygen Delivery Method Room Air 02/25/19 09:41 Oxygen Flow Rate 0 02/25/19 09:41 Pain Level 8 02/25/19 09:41 Comment 02/25/19 09:41
[2019-02-25 09:54] VITALS: RESP 20
--- NOTE | 2019-02-25 09:54 | ED.GENADUL_ITS ---
Discharge Plan Disposition Patient Disposition: HOME Condition: Improving Discharge Details Chief Complaint: GenMedical Clinical Impression: Generalized body aches Primary Care Provider: Vinnie Black ED Provider: Tyshawn Aguirre Home Meds and New Rx's Prescriptions: Continued calcium carbonate 200 mg calcium (500 mg) Tablet,Chewable 500 mg PO TID PRN PRNQty: 0 RF: 0 Symbicort 160-4.5 mcg/actuation Hfa Aerosol Inhaler 2 puff Inhalation BID Qty: 0 RF: 0 alum-mag hydroxide-simeth [Mag-Al Plus] 200-200-20 mg/5 mL Suspension 30 ml PO Q2H PRN PRNQty: 0 RF: 0 metformin 500 mg Tablet 1,000 mg PO HS Qty: 60 RF: 0 metformin 500 mg Tablet 1,500 mg PO DAILY Qty: 90 RF: 0 Lantus Solostar U-100 Insulin 100 unit/mL (3 mL) Insulin Pen 16 units subcut DAILY Qty: 1 RF: 0 Eliquis 5 mg Tablet 5 mg PO BID Qty: 60 RF: 0 multivitamin [Multiple Vitamins] Tablet 1 tab PO DAILY Qty: 30 RF: 0 tramadol 50 mg Tablet 25 mg PO Q6H PRN PRNQty: 10 RF: 0 cyanocobalamin (vitamin B-12) [Vitamin B-12] 500 mcg Tablet 1,000 mcg PO DAILY Qty: 60 RF: 0 pantoprazole 40 mg Tablet,Delayed Release (Dr/Ec) 40 mg PO BID@0730,2000 Qty: 30 RF: 0 docusate sodium [Colace] 100 mg Capsule 100 mg PO DAILY Qty: 30 RF: 0 folic acid 1 mg Tablet 1 mg PO DAILY Qty: 30 RF: 0 magnesium chloride [Mag 64] 64 mg Tablet,Delayed Release (Dr/Ec) 64 mg PO BID Qty: 30 RF: 0 ziprasidone HCl [Geodon] 80 MG capsule 160 mg PO .QHS RF: 0 ziprasidone HCl [Geodon] 80 MG capsule 80 mg PO DAILY RF: 0 clozapine [Clozaril] 100 MG tablet 200 mg PO DAILY RF: 0 clozapine [Clozaril] 100 MG tablet 325 mg PO .QHS RF: 0 acetaminophen [Mapap Extra Strength] 500 MG tablet 1,000 mg PO .Q8HRS RF: 0 Flovent HFA 120 PUFF HFA aerosol inhaler 2 puff Inhalation BID RF: 0 Discharge Instructions Additional Instructions: You were recently started on tramadol 12.5 mg per dose. Please consider increasing this to 25 mg per dose. You are given a 25 mg dose in the ER. Continue all of your other regularly prescribed medications. Follow-up with Dr. Snow for recheck in the next 7 to 10 days time. Return for any acute Medical Decision Making 63-year-old male presents from home complaining of generalized body ache for months time. He recently has had a prolonged inpatient stay both at the [facility] and then transferred for a swing bed and triple antibiotic therapy for a cavitary pneumonia here at [facility]. He has been returned to his community home. He states he has dull, achy, constant generalized pain is worse today. He does have acetaminophen on his list of medications. Med reconciliation performed with patient's home meds at his [facility]. He ran out of medicines for 1 day 24 hours ago and now has had been restarted. These include recently initiated tramadol of 12.5 mg. We will ask that this be increased to 25 mg as a trial for his ongoing pain. It is no evidence of recurrent illness at this time. He is stable for discharge to home HPI General Mode of arrival: ambulatory . Date/Time Provider Initiated Documentation: 02/25/19 09:40 . Limitations to Documentation: no limitations . Information obtained by: patient . History of Present Illness 63 year old M presents to the emergency department with the chief complaint of Generalized body ache for months, described as mild, Quality is described as constant, and is localized to the chest, back and abdomen. Patient reports no radiation. Patient started experiencing this week(s) and it has been constant. No relieving factors improve symptom(s), No exacerbating factors reported . Patient notes no other symptoms.; denies chest pain, cough and fever/chills. Patient did receive the following treatments prior to arrival, none Related Data Home Medications Medication Instructions Recorded Confirmed Flovent HFA 2 puff INHALATION BID 06/18/17 12/20/18 acetaminophen [Mapap Extra 1,000 mg PO .Q8HRS 06/18/17 12/20/18 Strength] clozapine [Clozaril] 200 mg PO DAILY 06/18/17 12/20/18 clozapine [Clozaril] 325 mg PO .QHS 06/18/17 12/20/18 ziprasidone HCl [Geodon] 80 mg PO DAILY 06/18/17 12/20/18 ziprasidone HCl [Geodon] 160 mg PO .QHS 06/18/17 12/20/18 Symbicort 2 puff INHALATION BID #0 g 12/05/18 12/20/18 alum-mag hydroxide-simeth [Mag-Al 30 ml PO Q2H PRN PRN #0 ml 12/05/18 12/20/18 Plus] calcium carbonate 500 mg PO TID PRN PRN #0 tab 12/05/18 12/20/18 Eliquis 5 mg PO BID #60 tab 01/23/19 Lantus Solostar U-100 Insulin 16 units SUBCUT DAILY #1 pkg 01/23/19 cyanocobalamin (vitamin B-12) 1,000 mcg PO DAILY #60 tab 01/23/19 [Vitamin B-12] docusate sodium [Colace] 100 mg PO DAILY #30 cap 01/23/19 folic acid 1 mg PO DAILY #30 tab 01/23/19 magnesium chloride [Mag 64] 64 mg PO BID #30 tab 01/23/19 metformin 1,000 mg PO HS #60 tab 01/23/19 metformin 1,500 mg PO DAILY #90 tab 01/23/19 multivitamin [Multiple Vitamins] 1 tab PO DAILY #30 tab 01/23/19 pantoprazole 40 mg PO BID@0730,2000 #30 tab 01/23/19 tramadol 25 mg PO Q6H PRN PRN #10 tab 01/23/19 Previous Rx's Medication Instructions Recorded Symbicort 2 puff INHALATION BID #0 g 12/05/18 alum-mag hydroxide-simeth [Mag-Al 30 ml PO Q2H PRN PRN #0 ml 12/05/18 Plus] calcium carbonate 500 mg PO TID PRN PRN #0 tab 12/05/18 Eliquis 5 mg PO BID #60 tab 01/23/19 Lantus Solostar U-100 Insulin 16 units SUBCUT DAILY #1 pkg 01/23/19 cyanocobalamin (vitamin B-12) 1,000 mcg PO DAILY #60 tab 01/23/19 [Vitamin B-12] docusate sodium [Colace] 100 mg PO DAILY #30 cap 01/23/19 folic acid 1 mg PO DAILY #30 tab 01/23/19 magnesium chloride [Mag 64] 64 mg PO BID #30 tab 01/23/19 metformin 1,000 mg PO HS #60 tab 01/23/19 metformin 1,500 mg PO DAILY #90 tab 01/23/19 multivitamin [Multiple Vitamins] 1 tab PO DAILY #30 tab 01/23/19 pantoprazole 40 mg PO BID@0730,1999 #30 tab 01/23/19 tramadol 25 mg PO Q6H PRN PRN #10 tab 01/23/19 Allergies Allergy/AdvReac Type Severity Reaction Status Date / Time No Known Allergies Allergy Unverified 02/25/19 09:46 General Stated Complaint: GenMedical KENYON: 3 Review of Systems Review of Systems 6 systems reviewed and otherwise - [facility] Medical History H/O schizophrenia (Acute) H/O: CVA (cerebrovascular accident) (Acute) COPD (chronic obstructive pulmonary disease) (Chronic) Diabetes mellitus (Chronic) Family History Mother No problems noted. Social History Smoking/Tobacco Use Status: Former Tobacco Use Tobacco: How many years used: 43 Alcohol Intake: former Drug use: Occasionally Substance use type: marijuana Do you feel safe at home: Yes Do you feel safe in your relationship?: Yes Exam Narrative Exam Narrative: GEN: awake, alert, oriented 3. Pleasant, well groomed, interactive. HEAD: Normocephalic, atraumatic ENT: Mucous membranes moist, oropharynx unremarkable, External ear exam unr emarkable EYES: PERRL, EOMI NECK: Full ROM, no JESSE, no menigismus CHEST/RESP: Nontender, clear to auscultation bilateral, no wheeze/rhonchi/rales CARDIOVASCULAR: RRR, no murmur, rub zackary. 2+ Rad pulse bilateral ABDOMEN: Soft, nontender, no mass. +Bowel sounds EXT: Full ROM, no edema, no rash Neuro: Grossly normal neurologic exam, conversant, interactive. Psych: Speech fluent, thoughts congruent, affect normal Course Vital Signs Temperature 36.6 C 02/25/19 09:41 Pulse 99 H 02/25/19 09:41 Respiratory Rate 21 02/25/19 09:41 Blood Pressure 127/68 02/25/19 09:41 Pulse Oximetry 97 02/25/19 09:41 Temperature 36.6 C 02/25/19 09:41 Temperature Source Temporal Artery Scan 02/25/19 09:41 Pulse 99 H 02/25/19 09:41 Respiratory Rate 21 02/25/19 09:41 Respiratory Effort Non-Labored 02/25/19 09:44 Blood Pressure 127/68 02/25/19 09:41 Blood Pressure Position Sitting 02/25/19 09:41 Pulse Oximetry 97 02/25/19 09:41 Oxygen Delivery Method Room Air 02/25/19 09:41 Oxygen Flow Rate 0 02/25/19 09:41 Pain Level 8 02/25/19 09:41 Comment 02/25/19 09:41
[2019-02-25] MEDS: traMADol 50 MG TAB 25 MG PO (10:40)
[2019-02-25 10:41] VITALS: BP 127/68; PULSE 92; RESP 20; TEMP 36.6; O2SAT 97
--- NOTE | 2019-02-25 10:55 | CMPROGNOTE_ITS ---
Care Management Progress Note 02/25-Clement needs transportation back to his home, [place], in [facility]. Called [facility] and spoke with Lisy. Lisy is setting up transportation and she is aware that Clepamella will be in the ED waiting room. Cristina MCGOWAN and Jess RYAN made aware of the above.
== END 2019-02-25 10:42 | disposition home or self-care (01) ==
PROVIDERS: Emergency Provider Emergency Medicine; PCP Specialist/Technologist Athletic Trainer
DX: R52 Pain, unspecified (principal); E11.9 Type 2 diabetes mellitus without complications; J44.9 Chronic obstructive pulmonary disease, unspecified; Z79.4 Long term (current) use of insulin; Z87.891 Personal history of nicotine dependence
CPT/HCPCS: 36415; 99283; 85025

== ENCOUNTER 2019-03-24 01:09 | Outpatient (CLI) | payer MEDICARE, MEDICAID, SELFPAY ==
--- NOTE | 2019-03-24 13:00 | DI.CT_ITS ---
SYMPTOMS/DIAGNOSIS: EX-SMOKER, Z87.891, H/O NICOTINE DEPENDENCE, F/U MICRONODULAR INFILTRATE NONCONTRAST CHEST CT: Comparison is made with December,. There is a stable tiny pericardial effusion. Minimal linear scarring is seen anteriorly in the right upper lobe. There is also minimal residual scarring seen along the right major fissure and posterior right lower lobe. There has been interval resolution of the previously noted right lower lobe infiltrate. Linear scarring is seen in the lingula. The left lower lobe appears clear. There are underlying changes of central lobular emphysema. IMPRESSION: Interval resolution of previously noted infiltrates. There is residual scarring. There is a stable trace pericardial effusion.
== END 2019-03-24 01:29 ==
PROVIDERS: PCP Specialist/Technologist Athletic Trainer; Visit Provider Internal Medicine
DX: R91.8 Other nonspecific abnormal finding of lung field (principal); I31.3 Pericardial effusion (noninflammatory); J98.4 Other disorders of lung
CPT/HCPCS: 71250

== ENCOUNTER 2019-03-25 08:43 | Outpatient (CLI) | payer MEDICARE, MEDICAID, SELFPAY ==
[2019-03-25 10:19] LABS: Abs Immature Grans 0.03 k/cumm (0.0-0.09); Absolute Basophil Count 0.01 k/cumm (0.0-0.2); Absolute Eosinophil Count 0.25 k/cumm (0.0-0.7); Absolute Monocyte Count 0.99 k/cumm (0.11-0.7); Basophils % 0.1; Eosinophils % 2.4; HCT 33.1 % (40.0-50.0); HGB 10.4 g/dL (13.5-17.5); Immature Grans % 0.3; Lymphocytes % 14.5; Mean Corp. HGB Concentration 31.4 g/dL (32.0-36.0); Mean Corpuscular Hemoglobin 25.4 pg (27.0-33.0); Mean Corpuscular Volume 80.7 fL (80-95); Mean Platelet Volume 9.8 fL (8.0-11.0); Monocytes % 9.5; Neutrophils % 73.2; Platelet Count 417 x1000/uL (130-400); RBC Distribution Width 18.9 % (11.8-14.1); White Blood Cell Count 10.38 k/cumm (4.4-10.8)
[2019-03-25 11:01] LABS: Anisocytosis 2+; Diff Comment RBC Morph Reviewed; Hypochromasia 1+; Poikilocytes 1+
== END 2019-03-25 09:03 ==
PROVIDERS: PCP Specialist/Technologist Athletic Trainer; Visit Provider Nurse Practitioner Family
DX: F20.9 Schizophrenia, unspecified (principal); Z79.899 Other long term (current) drug therapy
CPT/HCPCS: 36415; 85025

== ENCOUNTER 2019-04-06 00:19 | Outpatient (CLI) | payer MEDICARE, MEDICAID, SELFPAY ==
--- NOTE | 2019-04-06 12:30 | DI.US_ITS ---
SYMPTOM/DIAGNOSIS: F/U DVT RT ARM, I80.8 DUPLEX VENOUS ULTRASOUND RIGHT UPPER EXTREMITY: The study was carried out according to the usual protocol. Good compressibility is noted throughout. Flow is demonstrated and flow augmentation was easily elicited with compression. SUMMARY: There is no evidence of DVT in the right upper extremity.
== END 2019-04-06 00:39 ==
PROVIDERS: PCP Specialist/Technologist Athletic Trainer; Visit Provider Nurse Practitioner Family
DX: I82.611 Acute embolism and thrombosis of superficial veins of right upper extremity (principal)
CPT/HCPCS: 93971

== ENCOUNTER 2019-04-22 09:25 | Outpatient (CLI) | payer MEDICARE, MEDICAID, SELFPAY ==
[2019-04-22 10:15] LABS: Abs Immature Grans 0.11 k/cumm (0.0-0.09); Absolute Eosinophil Count 0.16 k/cumm (0.0-0.7); Absolute Lymphocyte Count 1.39 k/cumm (1.2-3.4); Absolute Monocyte Count 1.23 k/cumm (0.11-0.7); Basophils % 0.2; Eosinophils % 1.3; HCT 31.5 % (40.0-50.0); HGB 9.9 g/dL (13.5-17.5); Immature Grans % 0.9; Lymphocytes % 11.1; Mean Corp. HGB Concentration 31.4 g/dL (32.0-36.0); Mean Corpuscular Hemoglobin 25.1 pg (27.0-33.0); Mean Corpuscular Volume 79.9 fL (80-95); Mean Platelet Volume 9.3 fL (8.0-11.0); Monocytes % 9.8; Neutrophils % 76.7; Platelet Count 600 x1000/uL (130-400); RBC 3.94 m/cumm (4.50-6.00); RBC Distribution Width 18.7 % (11.8-14.1); White Blood Cell Count 12.56 k/cumm (4.4-10.8)
[2019-04-22 10:16] LABS: Absolute Basophil Count 0.03 k/cumm (0.0-0.2); Absolute Neutrophil Count 9.63 k/cumm (1.2-6.7)
[2019-04-22 10:34] LABS: Anisocytosis 2+; Diff Comment RBC Morph Reviewed; Hypochromasia 2+; Microcytosis 2+; Polychromasia Present
[2019-04-22 10:35] LABS: Poikilocytes 2+
== END 2019-04-22 09:45 ==
PROVIDERS: PCP Specialist/Technologist Athletic Trainer; Visit Provider Nurse Practitioner Family
DX: F20.9 Schizophrenia, unspecified (principal); Z79.899 Other long term (current) drug therapy
CPT/HCPCS: 36415; 85025

== ENCOUNTER 2019-05-20 08:56 | Outpatient (CLI) | payer MEDICARE, MEDICAID, SELFPAY ==
[2019-05-20 09:16] LABS: Abs Immature Grans 0.08 k/cumm (0.0-0.09); Absolute Basophil Count 0.01 k/cumm (0.0-0.2); Absolute Eosinophil Count 0.06 k/cumm (0.0-0.7); Absolute Lymphocyte Count 1.42 k/cumm (1.2-3.4); Absolute Monocyte Count 0.86 k/cumm (0.11-0.7); Basophils % 0.1; Eosinophils % 0.5; HGB 10.5 g/dL (13.5-17.5); Immature Grans % 0.7; Lymphocytes % 12.6; Mean Corp. HGB Concentration 31.8 g/dL (32.0-36.0); Mean Corpuscular Hemoglobin 25.8 pg (27.0-33.0); Mean Corpuscular Volume 81.1 fL (80-95); Mean Platelet Volume 9.1 fL (8.0-11.0); Monocytes % 7.6; Neutrophils % 78.5; Platelet Count 488 x1000/uL (130-400); RBC 4.07 m/cumm (4.50-6.00); RBC Distribution Width 19.3 % (11.8-14.1); White Blood Cell Count 11.25 k/cumm (4.4-10.8)
[2019-05-20 09:17] LABS: Absolute Neutrophil Count 8.83 k/cumm (1.2-6.7)
[2019-05-20 09:42] LABS: Anisocytosis 2+; Diff Comment Diff Reviewed
[2019-05-20 09:43] LABS: Poikilocytes 2+
== END 2019-05-20 09:16 ==
PROVIDERS: PCP Specialist/Technologist Athletic Trainer; Visit Provider Nurse Practitioner Family
DX: F20.9 Schizophrenia, unspecified (principal); Z79.899 Other long term (current) drug therapy
CPT/HCPCS: 36415; 85025

== ENCOUNTER 2019-05-22 11:08 | Outpatient (REF) | payer MEDICARE, MEDICAID, SELFPAY ==
[2019-05-22 18:40] LABS: HGB 11.4 g/dL (13.5-17.5); Mean Corp. HGB Concentration 32.6 g/dL (32.0-36.0); Mean Corpuscular Hemoglobin 26.3 pg (27.0-33.0); Mean Corpuscular Volume 80.6 fL (80-95); Mean Platelet Volume 9.7 fL (8.0-11.0); Platelet Count 570 x1000/uL (130-400); RBC 4.34 m/cumm (4.50-6.00); RBC Distribution Width 19.7 % (11.8-14.1); White Blood Cell Count 13.82 k/cumm (4.4-10.8)
[2019-05-22 18:59] LABS: ALT 23 U/L (16-63); AST 18 U/L (15-37); Albumin 4.1 g/dL (3.4-5.0); Alkaline Phosphatase 77 U/L (46-116); Anion Gap 12.7 mmol/L (3-11); BUN 12 mg/dL (7-18); Bilirubin, Total 0.2 mg/dL (0.2-1.0); CO2 25.3 mmol/L (21.0-32.0); CREATININE 1.12 mg/dL (0.70-1.30); Calcium 9.4 mg/dL (8.5-10.1); Chloride 98 mmol/L (98-107); Glucose 145 mg/dL (70-100); Potassium 5.4 mmol/L (3.5-5.1); Sodium 136 mmol/L (136-145); Total Protein 7.6 g/dL (6.4-8.2)
[2019-05-22 19:17] LABS: ESR 32 mm/hr (1-20)
== END 2019-05-22 11:28 ==
LOC: NCHCN 11:08
PROVIDERS: PCP Specialist/Technologist Athletic Trainer; Visit Provider Specialist/Technologist Athletic Trainer
DX: M25.50 Pain in unspecified joint (principal)
CPT/HCPCS: 80053; 85027; 85652; 86140

== ENCOUNTER 2019-06-10 11:31 | Outpatient (REF) | payer MEDICARE, MEDICAID, SELFPAY ==
[2019-06-12 09:28] LABS: Cyclic Citrullinated Peptide <2.5 U/mL (<5.0)
[2019-06-12 11:29] LABS: Rheumatoid Factor 30 IU/mL (<12.5)
[2019-06-12 11:56] LABS: Myeloperoxidase Ab IgG <0.2 U; Proteinase 3 Ab (PR3) <0.2 U
[2019-06-12 12:50] LABS: Lyme Ab w Rflx to Lyme Confirm Negative
[2019-06-12 13:41] LABS: ANA Interpretation Negative (NEGAT)
[2019-06-13 22:25] LABS: Anaplasma phagocytophilum Negative (Negative); B. miyamotoi PCR Negative (Negative); Babesia divergens/MO-1 Negative (Negative); Babesia duncani Negative (Negative); Babesia microti Negative (Negative); Ehrlichia chaffeensis Negative (Negative); Ehrlichia ewingii/canis Negative (Negative); Ehrlichia muris eauclairensis Negative (Negative)
== END 2019-06-10 11:51 ==
LOC: NCHCN 11:31
PROVIDERS: PCP Specialist/Technologist Athletic Trainer; Visit Provider Specialist/Technologist Athletic Trainer
DX: M79.10 Myalgia, unspecified site (principal)
CPT/HCPCS: 86200; 87798; 83516; 86038; 86431; 86618

== ENCOUNTER 2019-06-18 10:25 | Outpatient (CLI) | payer MEDICARE, MEDICAID, SELFPAY ==
[2019-06-18 10:57] LABS: Abs Immature Grans 0.02 k/cumm (0.0-0.09); Absolute Basophil Count 0.01 k/cumm (0.0-0.2); Absolute Eosinophil Count 0.12 k/cumm (0.0-0.7); Absolute Lymphocyte Count 1.77 k/cumm (1.2-3.4); Absolute Monocyte Count 0.96 k/cumm (0.11-0.7); Basophils % 0.1; Eosinophils % 1.5; HCT 33.7 % (40.0-50.0); HGB 10.8 g/dL (13.5-17.5); Immature Grans % 0.3; Lymphocytes % 22.2; Mean Corpuscular Hemoglobin 26.3 pg (27.0-33.0); Mean Platelet Volume 9.3 fL (8.0-11.0); Neutrophils % 63.9; Platelet Count 415 x1000/uL (130-400); RBC 4.11 m/cumm (4.50-6.00); RBC Distribution Width 19.2 % (11.8-14.1); White Blood Cell Count 7.98 k/cumm (4.4-10.8)
== END 2019-06-18 10:45 ==
PROVIDERS: PCP Specialist/Technologist Athletic Trainer; Visit Provider Nurse Practitioner Psychiatric/Mental Health
DX: F20.9 Schizophrenia, unspecified (principal); Z79.899 Other long term (current) drug therapy
CPT/HCPCS: 36415; 85025

== ENCOUNTER 2019-06-19 12:20 | Outpatient (REF) | payer MEDICARE, MEDICAID, SELFPAY ==
[2019-06-19 19:09] LABS: Reticulocyte 1.1 % (0.5-2.4)
[2019-06-19 19:20] LABS: Iron 26 ug/dL (50-175); Total Iron Binding Capacity 407 ug/dL (250-450); Transferrin Sat 6 % (20-55)
[2019-06-19 19:56] LABS: Vitamin B12 660 pg/mL (193-986)
[2019-06-19 19:58] LABS: Folate > 20.0 ng/mL (8.6-20.0)
[2019-06-19 20:05] LABS: C-Reactive Protein < 0.05 mg/dL (0.0-0.3)
[2019-06-19 21:33] LABS: ESR 23 mm/hr (1-20)
== END 2019-06-19 12:40 ==
LOC: NCHCN 12:20
PROVIDERS: PCP Specialist/Technologist Athletic Trainer; Visit Provider Specialist/Technologist Athletic Trainer
DX: D64.9 Anemia, unspecified (principal); R76.8 Other specified abnormal immunological findings in serum
CPT/HCPCS: 85652; 82607; 82746; 83540; 83550; 84443; 85045; 86140

== ENCOUNTER 2019-07-15 08:53 | Outpatient (CLI) | payer MEDICARE, MEDICAID, SELFPAY ==
[2019-07-15 09:25] LABS: Abs Immature Grans 0.14 k/cumm (0.0-0.09); Absolute Basophil Count 0.02 k/cumm (0.0-0.2); Absolute Eosinophil Count 0.21 k/cumm (0.0-0.7); Absolute Lymphocyte Count 1.48 k/cumm (1.2-3.4); Absolute Monocyte Count 0.61 k/cumm (0.11-0.7); Absolute Neutrophil Count 7.17 k/cumm (1.2-6.7); Basophils % 0.2; Eosinophils % 2.2; HCT 34.1 % (40.0-50.0); HGB 10.8 g/dL (13.5-17.5); Immature Grans % 1.5; Lymphocytes % 15.4; Mean Corp. HGB Concentration 31.7 g/dL (32.0-36.0); Mean Corpuscular Volume 85.3 fL (80-95); Mean Platelet Volume 9.1 fL (8.0-11.0); Monocytes % 6.3; Neutrophils % 74.4; Platelet Count 482 x1000/uL (130-400); RBC Distribution Width 19.4 % (11.8-14.1); White Blood Cell Count 9.63 k/cumm (4.4-10.8)
[2019-07-17 13:33] LABS: Clozapine 719 ng/mL (>350); Clozapine+Norclozapine Total 1353 ng/mL (>450); Norclozapine 634 ng/mL
== END 2019-07-15 09:13 ==
PROVIDERS: Nurse Practitioner Family; PCP Specialist/Technologist Athletic Trainer; Visit Provider Nurse Practitioner Family
DX: F20.9 Schizophrenia, unspecified (principal); Z79.899 Other long term (current) drug therapy; Z51.81 Encounter for therapeutic drug level monitoring
CPT/HCPCS: 36415; 80159; 85025

== ENCOUNTER 2019-07-16 09:56 | Outpatient (REF) | payer MEDICARE, MEDICAID, SELFPAY ==
[2019-07-16 22:35] LABS: HCT 35.5 % (40.0-50.0); HGB 11.1 g/dL (13.5-17.5); Mean Corp. HGB Concentration 31.3 g/dL (32.0-36.0); Mean Corpuscular Hemoglobin 26.7 pg (27.0-33.0); Mean Corpuscular Volume 85.3 fL (80-95); Platelet Count 496 x1000/uL (130-400); RBC 4.16 m/cumm (4.50-6.00); RBC Distribution Width 19.6 % (11.8-14.1); White Blood Cell Count 10.95 k/cumm (4.4-10.8)
[2019-07-16 22:51] LABS: C-Reactive Protein 0.33 mg/dL (0.0-0.3)
[2019-07-16 23:01] LABS: Hemoglobin A1C 6.6 % (4.5-6.2)
[2019-07-16 23:26] LABS: ESR 29 mm/hr (1-20)
== END 2019-07-16 10:16 ==
LOC: NCHCN 09:56
PROVIDERS: PCP Specialist/Technologist Athletic Trainer; Visit Provider Specialist/Technologist Athletic Trainer
DX: E11.9 Type 2 diabetes mellitus without complications (principal); D64.9 Anemia, unspecified; D72.829 Elevated white blood cell count, unspecified; M25.50 Pain in unspecified joint
CPT/HCPCS: 85027; 85652; 83036; 86140

== ENCOUNTER 2019-08-11 09:47 | Outpatient (CLI) | payer MEDICARE, MEDICAID, SELFPAY ==
[2019-08-11 10:37] LABS: Abs Immature Grans 0.02 k/cumm (0.0-0.09); Absolute Basophil Count 0.01 k/cumm (0.0-0.2); Absolute Eosinophil Count 0.13 k/cumm (0.0-0.7); Absolute Lymphocyte Count 1.65 k/cumm (1.2-3.4); Absolute Monocyte Count 1.13 k/cumm (0.11-0.7); Absolute Neutrophil Count 7.04 k/cumm (1.2-6.7); Basophils % 0.1; Eosinophils % 1.3; HCT 30.8 % (40.0-50.0); HGB 9.6 g/dL (13.5-17.5); Immature Grans % 0.2; Lymphocytes % 16.5; Mean Corp. HGB Concentration 31.2 g/dL (32.0-36.0); Mean Corpuscular Hemoglobin 26.5 pg (27.0-33.0); Mean Corpuscular Volume 85.1 fL (80-95); Mean Platelet Volume 9.4 fL (8.0-11.0); Monocytes % 11.3; Neutrophils % 70.6; Platelet Count 519 x1000/uL (130-400); RBC 3.62 m/cumm (4.50-6.00); RBC Distribution Width 17.8 % (11.8-14.1); White Blood Cell Count 9.98 k/cumm (4.4-10.8)
[2019-08-11 10:49] LABS: Anisocytosis 2+; Diff Comment RBC Morph Reviewed; Hypochromasia 2+; Microcytosis 2+
[2019-08-11 10:50] LABS: Poikilocytes 2+
[2019-08-11 12:34] LABS: ALT 17 U/L (16-63); AST 9 U/L (15-37); Albumin 3.6 g/dL (3.4-5.0); Alkaline Phosphatase 67 U/L (46-116); Anion Gap 10.3 mmol/L (3-11); BUN 15 mg/dL (7-18); Bilirubin, Total 0.2 mg/dL (0.2-1.0); CO2 24.7 mmol/L (21.0-32.0); CREATININE 0.98 mg/dL (0.70-1.30); Calcium 8.8 mg/dL (8.5-10.1); Calculated LDL 62 mg/dL; Chloride 105 mmol/L (98-107); Cholesterol 135 mg/dL (50-200); Glucose 127 mg/dL (70-100); HDL Cholesterol 61 mg/dL (40-60); Potassium 4.9 mmol/L (3.5-5.1); Sodium 140 mmol/L (136-145); TSH 4.12 uIU/mL (0.36-3.74); Total Protein 6.6 g/dL (6.4-8.2); Triglyceride 64 mg/dL (30-150)
== END 2019-08-11 10:07 ==
PROVIDERS: PCP Specialist/Technologist Athletic Trainer; Visit Provider Nurse Practitioner Family
DX: F20.9 Schizophrenia, unspecified (principal); Z79.899 Other long term (current) drug therapy
CPT/HCPCS: 36415; 80053; 80061; 84443; 85025

== ENCOUNTER → 2019-09-04 11:28 | Outpatient (BNVA) | payer MEDICARE, MEDICAID, SELFPAY | PROVIDERS: PCP Specialist/Technologist Athletic Trainer; Referring Provider Specialist/Technologist Athletic Trainer; Visit Provider Physical Therapy Assistant | DX: D64.9 Anemia, unspecified (principal); I10 Essential (primary) hypertension; E11.9 Type 2 diabetes mellitus without complications ==

== ENCOUNTER 2019-09-08 09:09 | Outpatient (CLI) | payer MEDICARE, MEDICAID, SELFPAY ==
[2019-09-08 09:47] LABS: Abs Immature Grans 0.05 k/cumm (0.0-0.09); Absolute Basophil Count 0.01 k/cumm (0.0-0.2); Absolute Lymphocyte Count 1.38 k/cumm (1.2-3.4); Absolute Monocyte Count 0.72 k/cumm (0.11-0.7); Absolute Neutrophil Count 7.13 k/cumm (1.2-6.7); Basophils % 0.1; Eosinophils % 2.1; HCT 32.6 % (40.0-50.0); HGB 10.2 g/dL (13.5-17.5); Immature Grans % 0.5; Lymphocytes % 14.5; Mean Corp. HGB Concentration 31.3 g/dL (32.0-36.0); Mean Corpuscular Hemoglobin 26.4 pg (27.0-33.0); Mean Corpuscular Volume 84.2 fL (80-95); Mean Platelet Volume 8.7 fL (8.0-11.0); Monocytes % 7.6; Neutrophils % 75.2; Platelet Count 489 x1000/uL (130-400); RBC 3.87 m/cumm (4.50-6.00); RBC Distribution Width 16.9 % (11.8-14.1); White Blood Cell Count 9.49 k/cumm (4.4-10.8)
== END 2019-09-08 09:29 ==
PROVIDERS: PCP Specialist/Technologist Athletic Trainer; Visit Provider Nurse Practitioner Psychiatric/Mental Health
DX: F20.9 Schizophrenia, unspecified (principal); Z79.899 Other long term (current) drug therapy
CPT/HCPCS: 36415; 85025

== ENCOUNTER 2019-10-06 08:51 | Outpatient (CLI) | payer MEDICARE, MEDICAID, SELFPAY ==
[2019-10-06 09:24] LABS: Abs Immature Grans 0.06 k/cumm (0.0-0.09); Absolute Basophil Count 0.02 k/cumm (0.0-0.2); Absolute Eosinophil Count 0.26 k/cumm (0.0-0.7); Absolute Lymphocyte Count 1.57 k/cumm (1.2-3.4); Absolute Monocyte Count 0.75 k/cumm (0.11-0.7); Absolute Neutrophil Count 7.13 k/cumm (1.2-6.7); Basophils % 0.2; Eosinophils % 2.7; HGB 10.9 g/dL (13.5-17.5); Immature Grans % 0.6 %; Mean Corp. HGB Concentration 32.1 g/dL (32.0-36.0); Mean Corpuscular Volume 84.2 fL (80-95); Monocytes % 7.7; Neutrophils % 72.8; Platelet Count 566 x1000/uL (130-400); RBC 4.04 m/cumm (4.50-6.00); White Blood Cell Count 9.79 k/cumm (4.4-10.8)
[2019-10-06 10:14] LABS: ESR 28 mm/hr (1-20)
[2019-10-07 14:59] LABS: Hepatitis C Ab w Rflx HCV PCR Negative (Negative)
[2019-10-09 12:00] LABS: Cryoglobulin, S Negative %ppt (Negative)
== END 2019-10-06 09:11 ==
PROVIDERS: Nurse Practitioner Family; PCP Specialist/Technologist Athletic Trainer; Visit Provider Internal Medicine
DX: F20.9 Schizophrenia, unspecified (principal); Z79.899 Other long term (current) drug therapy; G89.29 Other chronic pain; R89.9 Unspecified abnormal finding in specimens from other organs, systems and tissues
CPT/HCPCS: 36415; 85652; 86803; 82595; 85025; 86140; 86431

== ENCOUNTER 2019-11-02 09:43 | Outpatient (CLI) | payer MEDICARE, MEDICAID, SELFPAY ==
[2019-11-02 10:23] LABS: Abs Immature Grans 0.04 k/cumm (0.0-0.09); Absolute Basophil Count 0.01 k/cumm (0.0-0.2); Absolute Eosinophil Count 0.36 k/cumm (0.0-0.7); Absolute Lymphocyte Count 1.55 k/cumm (1.2-3.4); Absolute Monocyte Count 1.03 k/cumm (0.11-0.7); Absolute Neutrophil Count 4.46 k/cumm (1.2-6.7); Basophils % 0.1; Eosinophils % 4.8; HGB 10.4 g/dL (13.5-17.5); Immature Grans % 0.5 %; Lymphocytes % 20.8; Mean Corp. HGB Concentration 31.5 g/dL (32.0-36.0); Mean Corpuscular Hemoglobin 26.9 pg (27.0-33.0); Mean Corpuscular Volume 85.5 fL (80-95); Mean Platelet Volume 9.5 fL (8.0-11.0); Monocytes % 13.8; Platelet Count 277 x1000/uL (130-400); RBC 3.86 m/cumm (4.50-6.00); RBC Distribution Width 18.6 % (11.8-14.1); White Blood Cell Count 7.45 k/cumm (4.4-10.8)
== END 2019-11-02 10:03 ==
PROVIDERS: PCP Specialist/Technologist Athletic Trainer; Visit Provider Nurse Practitioner Family
DX: F20.9 Schizophrenia, unspecified (principal); Z79.899 Other long term (current) drug therapy
CPT/HCPCS: 36415; 85025

== ENCOUNTER 2019-12-01 13:00 | Outpatient (CLI) | payer MEDICARE, MEDICAID, SELFPAY ==
[2019-12-01 13:26] LABS: Abs Immature Grans 0.07 k/cumm (0.0-0.09); Absolute Basophil Count 0.01 k/cumm (0.0-0.2); Absolute Eosinophil Count 0.14 k/cumm (0.0-0.7); Absolute Lymphocyte Count 1.97 k/cumm (1.2-3.4); Absolute Monocyte Count 0.99 k/cumm (0.11-0.7); Absolute Neutrophil Count 6.28 k/cumm (1.2-6.7); Basophils % 0.1; Eosinophils % 1.5; HCT 33.4 % (40.0-50.0); HGB 10.5 g/dL (13.5-17.5); Immature Grans % 0.7 %; Lymphocytes % 20.8; Mean Corp. HGB Concentration 31.4 g/dL (32.0-36.0); Mean Corpuscular Hemoglobin 27.3 pg (27.0-33.0); Mean Corpuscular Volume 86.8 fL (80-95); Mean Platelet Volume 8.9 fL (8.0-11.0); Monocytes % 10.5; Neutrophils % 66.4; Platelet Count 322 x1000/uL (130-400); RBC 3.85 m/cumm (4.50-6.00); RBC Distribution Width 19.3 % (11.8-14.1); White Blood Cell Count 9.46 k/cumm (4.4-10.8)
== END 2019-12-01 13:20 ==
PROVIDERS: PCP Specialist/Technologist Athletic Trainer; Visit Provider Nurse Practitioner Family
DX: F20.9 Schizophrenia, unspecified (principal); Z79.899 Other long term (current) drug therapy
CPT/HCPCS: 36415; 85025

== ENCOUNTER 2019-12-24 14:33 | Inpatient (IN) | payer MEDICARE, MEDICAID, SELFPAY ==
[2019-12-24] VITALS (16 sets, daily range): BP systolic 97–141; BP diastolic 52–81; PULSE 88–105; RESP 5–33; TEMP 36.1–37.1; O2SAT 93–100
--- NOTE | 2019-12-24 14:54 | ED.GENADUL_ITS ---
Discharge Plan Disposition Patient Disposition: [facility] INPATIENT Condition: Stable Discharge Details Chief Complaint: SOB Clinical Impression: Pneumonia, [place] (acute kidney injury), Acidosis, lactic Primary Care Provider: Vinnie Black ED Provider: Armando Bailey [place] Meds and New Rx's Prescriptions: No Action ferrous gluconate 324 mg (38 mg iron) tablet 324 mg PO DAILY RF: 0 pioglitazone [Actos] 30 mg tablet 30 mg PO DAILY RF: 0 simvastatin 20 mg tablet 20 mg PO QHS RF: 0 Anoro Ellipta 62.5-25 mcg/actuation blister with device 1 inh IH DAILY RF: 0 bupropion HCl [Wellbutrin XL] 300 mg tablet extended release 24 hr 300 mg PO QAM RF: 0 calcium carbonate 200 mg calcium (500 mg) Tablet,Chewable 500 mg PO TID PRN PRNQty: 0 RF: 0 alum-mag hydroxide-simeth [Mag-Al Plus] 200-200-20 mg/5 mL Suspension 30 ml PO Q2H PRN PRNQty: 0 RF: 0 metformin 500 mg Tablet 1,500 mg PO DAILY Qty: 90 RF: 0 Eliquis 5 mg Tablet 5 mg PO BID Qty: 60 RF: 0 multivitamin [Multiple Vitamins] Tablet 1 tab PO DAILY Qty: 30 RF: 0 cyanocobalamin (vitamin B-12) [Vitamin B-12] 500 mcg Tablet 1,000 mcg PO DAILY Qty: 60 RF: 0 pantoprazole 40 mg Tablet,Delayed Release (Dr/Ec) 40 mg PO BID@0730,2000 Qty: 30 RF: 0 docusate sodium [Colace] 100 mg Capsule 100 mg PO DAILY Qty: 30 RF: 0 folic acid 1 mg Tablet 1 mg PO DAILY Qty: 30 RF: 0 magnesium chloride [Mag 64] 64 mg Tablet,Delayed Release (Dr/Ec) 64 mg PO BID Qty: 30 RF: 0 metformin 1,000 mg Tablet 1,000 mg PO .QHS RF: 0 ziprasidone HCl [Geodon] 80 MG capsule 160 mg PO .QHS RF: 0 ziprasidone HCl [Geodon] 80 MG capsule 80 mg PO DAILY RF: 0 clozapine [Clozaril] 100 MG tablet 200 mg PO DAILY RF: 0 clozapine [Clozaril] 100 MG tablet 375 mg PO .QHS RF: 0 acetaminophen [Mapap Extra Strength] 500 MG tablet 1,000 mg PO .Q8HRS RF: 0 Flovent HFA 120 PUFF HFA aerosol inhaler 2 puff Inhalation BID RF: 0 Medical Decision Making 64 yo male with hx of gerd, prior PE, htn, t2dm, prior lung abscess, schizoaffective disorder, who comes in with complaint of shortness of breath. He states he felt fine all day, woke up around 6am feeling short of breath and body aches this morning. Denies fevers, cough, chest pain, travel, no known sick contacts. he saw his pcp earlier today and they performed a covid19 swab and noted he was hypoxic to 92% and had a BP of 90 systolic so was referred here. He arrives tachypneic with rhonchi in all lung hernandez on exam but is speaking in full sentences. No jvd, no leg edema or calf pain. Will obtan lab work and imaging to evaluate for acs, pe, pna, influenza and obtain blood cultures. Given his lung exam findings and extensive smoking history (quit 1 year ago) will tx as possible copd exacerbation with neb and steroids. pt's labs remarkable for wbc of over 30, lactate over 3 and has [place]. HR now in the 90's, remains HD stable and BP improved with IVF. Given his history last year with cavitary lesions and CT showing recurrent rll pna will tx with broad spectrum abx, was treated with vanco and cefepime last year so will treat with this and admit Differential Diagnosis Differential Diagnosis: covid19, influenza, pna, PE, chf, copd Medical Records Medical records reviewed: Yes I reviewed the patient's medical records. Imaging Data Radiologic Study: Attestation: I personally reviewed and interpreted this imaging study as follows: Imaging: CT Scan Radiologist's impression: IMPRESSION: 1. No evidence of pulmonary embolism, thoracic aortic dissection or aneurysm. 2. Multifocal pneumonia involving the right upper and right lower lobes. 3. The findings were discussed with the Emergency Department on the date of the examination Lab Data Lab results reviewed: Yes I reviewed the patient's lab results. ECG Data Attestation: I personally reviewed and interpreted this ECG (s) as follows: Prior ECG tracings: not available for review Interpretation: sinus tachycardia, rate of 102, pr 126, qtc 471 HPI General Mode of arrival: ambulatory . Date/Time Provider Initiated Documentation: 12/24/19 14:34 . Limitations to Documentation: no limitations . Information obtained by: patient . History of Present Illness 64 year old M presents to the emergency department with the chief complaint of shortness of breath, described as moderate, Patient started experiencing this hour(s) (8) and it has been constant. No relieving factors improve symptom(s), No exacerbating factors reported . Patient did receive the following treatments prior to arrival, none Related Data Home Medications Medication Instructions Recorded Confirmed Flovent HFA 2 puff INHALATION BID 06/18/17 12/24/19 acetaminophen [Mapap Extra 1,000 mg PO .Q8HRS 06/18/17 12/24/19 Strength] clozapine [Clozaril] 200 mg PO DAILY 06/18/17 12/24/19 clozapine [Clozaril] 375 mg PO .QHS 06/18/17 12/24/19 ziprasidone HCl [Geodon] 80 mg PO DAILY 06/18/17 12/24/19 ziprasidone HCl [Geodon] 160 mg PO .QHS 06/18/17 12/24/19 alum-mag hydroxide-simeth [Mag-Al 30 ml PO Q2H PRN PRN #0 ml 12/05/18 12/24/19 Plus] calcium carbonate 500 mg PO TID PRN PRN #0 tab 12/05/18 12/24/19 Eliquis 5 mg PO BID #60 tab 01/23/19 12/24/19 cyanocobalamin (vitamin B-12) 1,000 mcg PO DAILY #60 tab 01/23/19 12/24/19 [Vitamin B-12] docusate sodium [Colace] 100 mg PO DAILY #30 cap 01/23/19 12/24/19 folic acid 1 mg PO DAILY #30 tab 01/23/19 12/24/19 magnesium chloride [Mag 64] 64 mg PO BID #30 tab 01/23/19 12/24/19 metformin 1,500 mg PO DAILY #90 tab 01/23/19 12/24/19 multivitamin [Multiple Vitamins] 1 tab PO DAILY #30 tab 01/23/19 12/24/19 pantoprazole 40 mg PO BID@0730,2000 #30 tab 01/23/19 12/24/19 bupropion HCl 300 mg 24 hr tablet, 300 mg PO QAM 08/14/19 12/24/19 extended release ferrous gluconate 324 mg (38 mg 324 mg PO DAILY 08/14/19 12/24/19 iron) tablet pioglitazone 30 mg tablet 30 mg PO DAILY 08/14/19 12/24/19 simvastatin 20 mg tablet 20 mg PO QHS 08/14/19 12/24/19 umeclidinium 62.5 mcg-vilanterol 1 inh IH DAILY 08/14/19 12/24/19 25 mcg/actuation powdr for inhalation metformin 1,000 mg PO .QHS 12/24/19 12/24/19 Previous Rx's Medication Instructions Recorded alum-mag hydroxide-simeth [Mag-Al 30 ml PO Q2H PRN PRN #0 ml 12/05/18 Plus] calcium carbonate 500 mg PO TID PRN PRN #0 tab 12/05/18 Eliquis 5 mg PO BID #60 tab 01/23/19 cyanocobalamin (vitamin B-12) 1,000 mcg PO DAILY #60 tab 01/23/19 [Vitamin B-12] docusate sodium [Colace] 100 mg PO DAILY #30 cap 01/23/19 folic acid 1 mg PO DAILY #30 tab 01/23/19 magnesium chloride [Mag 64] 64 mg PO BID #30 tab 01/23/19 metformin 1,500 mg PO DAILY #90 tab 01/23/19 multivitamin [Multiple Vitamins] 1 tab PO DAILY #30 tab 01/23/19 pantoprazole 40 mg PO BID@0730,2000 #30 tab 01/23/19 Allergies Allergy/AdvReac Type Severity Reaction Status Date / Time No Known Allergies Allergy Unverified 12/24/19 14:45 General Stated Complaint: SOB KENYON: 2 Review of Systems All systems reviewed & are unremarkable except as noted in HPI and below Constitutional Constitutional: Denies chills and Denies fever(s) Cardiovascular Cardiovascular: Denies chest pain Respiratory Respiratory: Denies cough Gastrointestinal Gastrointestinal: Denies abdominal pain, Denies nausea and Denies vomiting Musculoskeletal Musculoskeletal: Denies joint swelling PFSH Social History Smoking/Tobacco Use Status: Former Tobacco Use Tobacco: How many years used: 43 Alcohol Intake: former Drug use: Occasionally Substance use type: marijuana Do you feel safe at home: Yes Do you feel safe in your relationship?: Yes Exam Const General: no acute distress Orientation: alert HENMT Head: normal to inspection Ears: external ears normal General nose exam: external nose normal Mouth: moist mucous membranes Eyes General: appearance normal, both eyes and all related structures Neck Neck: normal visual inspection Resp Effort & Inspection: normal respiratory effort and able to speak in complete sentences Cardio Rate: regular rate Skin General skin exam: no rashes or lesions noted Neuro General: patient alert and patient oriented x3 Extrem General: normal to inspection Psych Mental Status: mental status grossly normal Course Vital Signs Vital signs: Vital Signs Temperature 36.3 C L 12/24/19 14:39 Pulse 105 H 12/24/19 14:39 Respiratory Rate 28 H 12/24/19 14:39 Blood Pressure 97/52 L 12/24/19 14:39 Pulse Oximetry 94 L 12/24/19 14:39 Temperature 36.3 C L 12/24/19 14:39 Temperature Source Skin 12/24/19 14:39 Pulse 105 H 12/24/19 14:39 Respiratory Rate 29 H 12/24/19 14:45 Respiratory Effort Non-Labored 12/24/19 14:45 Respiratory Depth Normal 12/24/19 14:45 Respiratory Pattern Normal 12/24/19 14:45 Blood Pressure 97/52 L 12/24/19 14:39 Blood Pressure Position Supine 12/24/19 14:39 Pulse Oximetry 94 L 12/24/19 14:39 Oxygen Delivery Method Room Air 12/24/19 14:39 Oxygen Flow Rate 0 12/24/19 14:39 Pain Level 5 12/24/19 14:39 Lab/Test Results Lab/Test Results: 12/24/19 14:51 Blood Blood Culture - Pending 12/24/19 14:51 Blood Blood Culture - Pending
[2019-12-24] MEDS: Omnipaque 350 MG/ML 100 ML BTL IJ (15:02)
[2019-12-24 15:14] LABS: Abs Immature Grans 0.28 k/cumm (0.0-0.09); HCT 37.4 % (40.0-50.0); HGB 12.3 g/dL (13.5-17.5); Mean Corp. HGB Concentration 32.9 g/dL (32.0-36.0); Mean Corpuscular Hemoglobin 28.2 pg (27.0-33.0); Mean Corpuscular Volume 85.8 fL (80-95); Mean Platelet Volume 9.9 fL (8.0-11.0); Platelet Count 326 x1000/uL (130-400); RBC 4.36 m/cumm (4.50-6.00); RBC Distribution Width 18.7 % (11.8-14.1)
[2019-12-24 15:21] LABS: Lactate 3.7 mmol/L (0.6-1.4)
--- NOTE | 2019-12-24 15:25 | DI.CT_ITS ---
EXAM: CT CHEST PE CTA CLINICAL HISTORY: SHORTNESS OF BREATH, PRIOR CAVITARY PNEUMONIA. TECHNIQUE: Imaging Protocol: Axial CT angiography was performed with multi-slice acquisition and mu lti-planar and/or 3D reconstructions. CONTRAST MATERIAL: Intravenous: Omnipaque 350 Contrast volume:63 mL COMPARISON: CHEST WITH CONTRAST from 07/31/2017 FINDINGS: Pulmonary Arteries: No evidence of filling defect to suggest pulmonary emboli. Tracheobronchial tree: Patent where visualized. Mediastinum and Ying: No dominant adenopathy or fluid collection. Pulmonary parenchyma: There is a multifocal infiltrate involving the right upper and right lower lobe s. No architectural distortion. There is a calcified granuloma in the right lower lobe. Pleura: No effusion or pneumothorax. Heart: The heart is not dilated. Urps-lf-dsovoxry coronary artery calcification is present. No peric ardial effusion is seen. Aorta: Thoracic aorta non-dilated. No evidence of aneurysm or dissection. Upper abdomen: Calcified granuloma in the spleen. Unchanged nodularity of the adrenal glands. Bones: No acute abnormality. Soft tissues: Right gynecomastia. IMPRESSION: 1. No evidence of pulmonary embolism, thoracic aortic dissection or aneurysm. 2. Multifocal pneumonia involving the right upper and right lower lobes. 3. The findings were discussed with the Emergency Department on the date of the examination. DATA REPOSITORY: All CT scans at this facility are submitted to the National Radiology Data Registry (NRDR) Dose Index Registry (DIR) with the [employer] (A[employer]). RADIATION OPTIMIZATION: All CT scans at this facility use at least one of these dose optimization te chniques: automated exposure control; mA and/or kV adjustment per patient size (includes targeted exa ms where dose is matched to clinical indication); or iterative reconstruction.
[2019-12-24] MEDS: Normal Saline 1,000 ML 1000 ML IV ×2 (15:27→16:18)
[2019-12-24] MEDS: Albuterol/Ipratropium 3 ML UPD VIAL UPD (15:27)
[2019-12-24] MEDS: Normal Saline Flush 10 ML SYR IVP ×2 (15:27→19:44)
[2019-12-24] MEDS: methylPREDNISolone SUCC 125 MG VIAL IVP (15:27)
[2019-12-24 15:38] LABS: Absolute Lymphocyte Count 0.74 k/cumm (1.2-3.4); Absolute Neutrophil Count 32.37 k/cumm (1.2-6.7); Atypical Lymphocytes % 0; White Blood Cell Count 36.78 k/cumm (4.4-10.8)
[2019-12-24 15:39] LABS: Absolute Monocyte Count 3.68 k/cumm (0.11-0.7); Diff Comment Manual Differential; Polychromasia Present
[2019-12-24] MEDS: CEFEPIME 2 GM in Normal Saline 100 ML IVPB (15:47)
[2019-12-24 15:50] LABS: ALT 22 U/L (16-63); AST 13 U/L (15-37); Albumin 3.8 g/dL (3.4-5.0); Alkaline Phosphatase 85 U/L (46-116); Anion Gap 13.3 mmol/L (3-11); BUN 20 mg/dL (7-18); Bilirubin, Total 0.4 mg/dL (0.2-1.0); CO2 24.7 mmol/L (21.0-32.0); CREATININE 1.53 mg/dL (0.70-1.30); Calcium 9.1 mg/dL (8.5-10.1); Chloride 102 mmol/L (98-107); Estimated GFR 45.77 (mL/min/1.73m2); Glucose 176 mg/dL (74-106); Magnesium 1.3 mg/dL (1.8-2.4); NT-proBNP 316 pg/mL (<300); Potassium 3.8 mmol/L (3.5-5.1); Sodium 140 mmol/L (136-145); Total Protein 7.6 g/dL (6.4-8.2)
--- NOTE | 2019-12-24 15:51 | NUR.NOTE ---
RA sat 89-92% Placed on 2L O2 NC per MD Bailey.
[2019-12-24 15:55] LABS: Troponin I < 0.05 ng/Ml (<0.06)
[2019-12-24 16:13] LABS: INR 1.1 (0.9-1.1); PTT Activated 37.9 sec (21.0-31.4); Prothrombin Time 10.8 sec (9.3-11.0)
[2019-12-24] MEDS: VANCOMYCIN 1,000 MG in Normal Saline 250 ML 166.6666 MG IVPB (16:18)
[2019-12-24] MEDS: MAGNESIUM SULFATE 2 GM/50 ML BAG IVPB ×2 (16:19→19:50)
--- NOTE | 2019-12-24 17:10 | NUR.NOTE ---
Pt sitting in bed in NAD. Vanco and Mag infusing a/o. Aware of wait time for bed.
--- NOTE | 2019-12-24 17:33 | NUR.NOTE ---
Report to Diane Ochoa in [facility].
--- NOTE | 2019-12-24 18:10 | NUR.NOTE ---
Stood to void in urinal. Approx 350mL dark yellow urine out.
[2019-12-24 18:22] LABS: Lactate 2.1 mmol/L (0.6-1.4)
[2019-12-24 18:48] LABS: Troponin I < 0.05 ng/Ml (<0.06)
--- NOTE | 2019-12-24 19:31 | HPE_ITS ---
Date of service: 12/24/19 Time of Service: 19:31 Assessment and Plan Assessment and plan (1) Pneumonia: Status: Acute Assessment and plan: Broad-spectrum antibiotics including cefepime and vancomycin pending results of his blood and sputum cultures. Continue with aerosolized bronchodilators and supplemental oxygen. Monitor for development of acute respiratory failure. Continue with IV corticosteroids (2) D[place] (acute kidney injury): Status: Acute Assessment and plan: IV fluid hydration with careful monitoring of his intake and output and monitoring of his BMP (3) Acidosis, lactic: Status: Acute Assessment and plan: IV fluid hydration and treatment of his infection with follow-up monitoring of his blood lactate levels and repeat troponin level to rule out acute ischemic event. Check a procalcitonin level for assessment for risk for sepsis. History of Present Illness History of Present Illness Chief Complaint: Short of breath, felt like he was going to pass out Narrative: 64-year-old male with a history of previous PE, essential hypertension, type 2 diabetes mellitus, previous pneumonia with lung abscess, schizoaffective disorder and GERD who presented the emergency department with complaints of shortness of breath. He woke this morning around 6 AM feeling short of breath was generalized body aches. Patient lives in assisted living facility with other individuals with cognitive impairment and disabilities and reportedly lives with people who have had influenza. Patient himself is been on Tamiflu for 10 days. Patient denied any recent travel and has had no known contacts with people with COVID-19 nevertheless he had seen his PCP earlier in the day and underwent COVID-19 swab testing. He was noted to be hypoxic with a pulse oximetry 92% and mildly hypotensive with a systolic pressure of 90 and therefore was sent to the emergency department. Upon arrival he was noted to be tachypneic and tachycardic with diffuse rhonchi in all lung hernandez. He was not noted to have any peripheral edema or JVD. Dr. Armando Bailey emergency room attending performed a work-up that included CT of his chest that demonstrated no pulmonary embolism or aneurysm but multifocal pneumonia involving right upper and right lower lobe. Laboratory studies were remarkable for a leukocytosis of 36,700. Stable chronic anemia with hemoglobin 12.3 g. An elevated blood lactate of 3.7. CMP was remarkable for elevated BUN and creatinine of 20 and 1.53 with normal LFTs. Troponin levels were less than 0.05?2. proBNP was barely above normal at 316. Treatment emergency department included obtaining blood cultures and ordering aerosolized bronchodilators and giving him IV fluids x2 L as well as initiation of antibiotics including vancomycin and cefepime. He was also given a dose of Solu-Medrol for his acute bronchospasm. When he initially presented he was tachypneic with respiratory rates of 33 and these have since come down to 25 breaths/min his pulse oximetry on admission was in the low 90s he is now up to 97%. His blood pressure was soft on admission at 97/52 and with IV fluids is come up to 141/71. Because he underwent COVID-19 screening and its pending at this time patient will be admitted to the respiratory ICU unit pending the results of his COVID-19 screening. He will continue to receive aerosolized bronchodilators IV corticosteroids and parenteral antibiotics. We will obtain results of his blood culture and sputum culture and COVID-19 testing. [facility] Medical History (Updated 12/24/19 @ 19:51 by Tian Chakraborty) Acute thrombosis of right basilic vein (Inactive) Complication associated with peripherally inserted central catheter (PICC) (Inactive) COPD (chronic obstructive pulmonary disease) (Chronic) Diabetes mellitus (Chronic) GERD (gastroesophageal reflux disease) (Chronic) H/O schizophrenia (Acute) H/O: CVA (cerebrovascular accident) (Acute) Hypertension (Chronic) Non-insulin dependent type 2 diabetes mellitus (Chronic) Oropharyngeal dysphagia (Acute) Pulmonary emboli (Inactive) Schizo affective schizophrenia (Chronic) Family History Mother No problems noted. Social History Smoking/Tobacco Use Status: Former Tobacco Use Tobacco: How many years used: 43 Alcohol Intake: former Drug use: Occasionally Substance use type: marijuana Do you feel safe at home: Yes Do you feel safe in your relationship?: Yes Meds Home Medications and Allergies Home Medications Medication Instructions Recorded Confirmed Type Flovent HFA 2 puff INHALATION BID 06/18/17 12/24/19 History acetaminophen [Mapap Extra 1,000 mg PO .Q8HRS 06/18/17 12/24/19 History Strength] clozapine [Clozaril] 200 mg PO DAILY 06/18/17 12/24/19 History clozapine [Clozaril] 375 mg PO .QHS 06/18/17 12/24/19 History ziprasidone HCl [Geodon] 80 mg PO DAILY 06/18/17 12/24/19 History ziprasidone HCl [Geodon] 160 mg PO .QHS 06/18/17 12/24/19 History alum-mag hydroxide-simeth [Mag-Al 30 ml PO Q2H PRN PRN #0 ml 12/05/18 12/24/19 Rx Plus] calcium carbonate 500 mg PO TID PRN PRN #0 tab 12/05/18 12/24/19 Rx Eliquis 5 mg PO BID #60 tab 01/23/19 12/24/19 Rx cyanocobalamin (vitamin B-12) 1,000 mcg PO DAILY #60 tab 01/23/19 12/24/19 Rx [Vitamin B-12] docusate sodium [Colace] 100 mg PO DAILY #30 cap 01/23/19 12/24/19 Rx folic acid 1 mg PO DAILY #30 tab 01/23/19 12/24/19 Rx magnesium chloride [Mag 64] 64 mg PO BID #30 tab 01/23/19 12/24/19 Rx metformin 1,500 mg PO DAILY #90 tab 01/23/19 12/24/19 Rx multivitamin [Multiple Vitamins] 1 tab PO DAILY #30 tab 01/23/19 12/24/19 Rx pantoprazole 40 mg PO BID@0730,2000 #30 tab 01/23/19 12/24/19 Rx bupropion HCl 300 mg 24 hr tablet, 300 mg PO QAM 08/14/19 12/24/19 History extended release ferrous gluconate 324 mg (38 mg 324 mg PO DAILY 08/14/19 12/24/19 History iron) tablet pioglitazone 30 mg tablet 30 mg PO DAILY 08/14/19 12/24/19 History simvastatin 20 mg tablet 20 mg PO QHS 08/14/19 12/24/19 History umeclidinium 62.5 mcg-vilanterol 1 inh IH DAILY 08/14/19 12/24/19 History 25 mcg/actuation powdr for inhalation metformin 1,000 mg PO .QHS 12/24/19 12/24/19 History Allergies Allergy/AdvReac Type Severity Reaction Status Date / Time No Known Allergies Allergy Unverified 12/24/19 14:45 Exam Narrative Exam Narrative: Const General: no acute distress Orientation: alert [facility] Head: normal to inspection Mouth: moist mucous membranes Neck: normal visual inspection, no JVD; normal carotid pulses Resp mildly dyspneic w/ prolonged conversation; no acute distress; coarse rhonchi over right base, diffuse expiratory wheezing throughout Cardio Rate: regular rate Skin General skin exam: no rashes or lesions noted Neuro General: patient alert and patient oriented x3 Extrem General: no cyanosis, edema or rashes Psych Mental Status: mental status grossly normal Results Labs Result diagrams: 12/25/19 06:50 12/25/19 06:50 Labs: Laboratory Results - last 24 hr 12/24/19 12/24/19 12/24/19 14:30 14:30 14:30 WBC 36.78 H* RBC 4.36 L Hgb 12.3 L Hct 37.4 L MCV 85.8 MCH 28.2 MCHC 32.9 RDW 18.7 H Plt Count 326 MPV 9.9 Immature Gran % 0.0 Neutrophils % 86.0 Band Neutrophils % 2.0 Lymphocytes % 2.0 Atypical Lymphs % 0 Monocytes % 10.0 Eosinophils % 0.0 Basophils % 0.0 Absolute Neutrophils 32.37 H Absolute Lymphocytes 0.74 L Absolute Monocytes 3.68 H Absolute Eosinophils 0.00 Absolute Basophils 0.00 Differential Comment Manual differential RBC Morphology See below Polychromasia Present PT 10.8 INR 1.1 APTT 37.9 H Sodium 140 Potassium 3.8 Chloride 102 Carbon Dioxide 24.7 Anion Gap 13.3 H BUN 20 H Creatinine 1.53 H Estimated GFR/1.73 m2 45.77 Glucose 176 H Lactate Calcium 9.1 Magnesium 1.3 L Total Bilirubin 0.4 AST 13 L ALT 22 Alkaline Phosphatase 85 Troponin I < 0.05 NT-Pro-B Natriuret Pep 316 H Total Protein 7.6 Albumin 3.8 12/24/19 12/24/19 12/24/19 14:30 18:10 18:10 WBC RBC Hgb Hct MCV MCH MCHC RDW Plt Count MPV Immature Gran % Neutrophils % Band Neutrophils % Lymphocytes % Atypical Lymphs % Monocytes % Eosinophils % Basophils % Absolute Neutrophils Absolute Lymphocytes Absolute Monocytes Absolute Eosinophils Absolute Basophils Differential Comment RBC Morphology Polychromasia PT INR APTT Sodium Potassium Chloride Carbon Dioxide Anion Gap BUN Creatinine Estimated GFR/1.73 m2 Glucose Lactate 3.7 H* 2.1 H* Calcium Magnesium Total Bilirubin AST ALT Alkaline Phosphatase Troponin I < 0.05 NT-Pro-B Natriuret Pep Total Protein Albumin Last Vital Signs Temp 37.1 C 12/24/19 18:09 Pulse 97 H 12/24/19 18:09 Resp 25 H 12/24/19 18:09 BP 141/71 H 12/24/19 18:09 Pulse Ox 95 12/24/19 18:09 COVID-19 Screening Traveled to [place] from one of the affected countries or regions?: No Recent travel in the [place] within the last 8 weeks?: No Recent out of the country travel within the last 8 weeks?: No Exposure or possible exposure to illness during travel?: No Had IN PERSON contact w/suspected or confirmed C-19 person: No Have you had the following symptoms in the past few days?: No Medical treatment received for symptoms/illness related to travel?: lives at [facility]-around people with the flu.
[2019-12-24] MEDS: Lactated Ringers 1,000 ML 150 ML IV (19:44)
[2019-12-24] MEDS: Insulin Aspart 300 UNITS/3 ML PEN SC (19:45)
[2019-12-24] MEDS: Mometasone 220 MCG 14 DOSE INHALER 2 PUFF IH (19:49)
[2019-12-24] MEDS: Magnesium Chloride 64 MG TABCR PO (19:50)
[2019-12-24] MEDS: Pantoprazole 40 MG TABCR PO (19:50)
[2019-12-24] MEDS: Apixaban 5 MG TAB PO (19:50)
[2019-12-24] MEDS: Simvastatin 20 MG TAB PO (21:07)
[2019-12-24 21:15] LABS: Lactate 2.2 mmol/L (0.6-1.4)
[2019-12-24 21:49] LABS: Troponin I < 0.05 ng/Ml (<0.06)
[2019-12-25] VITALS (12 sets, daily range): BP systolic 138–152; BP diastolic 73–88; PULSE 78–88; RESP 18–30; TEMP 35.9–36.7; O2SAT 91–100
[2019-12-25] MEDS: Acetaminophen 325 MG TAB PO (00:30)
[2019-12-25] MEDS: Albuterol/Ipratropium 3 ML UPD VIAL UPD ×3 (00:35→17:37)
[2019-12-25] MEDS: methylPREDNISolone SUCC 125 MG VIAL 60 MG IVP (00:36)
[2019-12-25 01:16] LABS: Troponin I < 0.05 ng/Ml (<0.06)
[2019-12-25] MEDS: Lactated Ringers 1,000 ML 150 ML IV ×3 (02:00→20:27)
[2019-12-25] MEDS: CEFEPIME 2 GM in Normal Saline 100 ML IVPB ×2 (04:16→16:21)
[2019-12-25 07:13] LABS: HCT 33.6 % (40.0-50.0); HGB 11.2 g/dL (13.5-17.5); Mean Corp. HGB Concentration 33.3 g/dL (32.0-36.0); Mean Corpuscular Hemoglobin 28.5 pg (27.0-33.0); Mean Corpuscular Volume 85.5 fL (80-95); Mean Platelet Volume 10.2 fL (8.0-11.0); Platelet Count 297 x1000/uL (130-400); RBC 3.93 m/cumm (4.50-6.00); RBC Distribution Width 18.7 % (11.8-14.1)
[2019-12-25 07:34] LABS: Anion Gap 8.2 mmol/L (3-11); BUN 15 mg/dL (7-18); CO2 25.8 mmol/L (21.0-32.0); Calcium 8.7 mg/dL (8.5-10.1); Chloride 107 mmol/L (98-107); Glucose 236 mg/dL (74-106); Potassium 4.1 mmol/L (3.5-5.1); Sodium 141 mmol/L (136-145); TSH 0.69 uIU/mL (0.36-3.74)
[2019-12-25 07:36] LABS: Absolute Lymphocyte Count 1.24 k/cumm (1.2-3.4); Absolute Monocyte Count 1.66 k/cumm (0.11-0.7); Absolute Neutrophil Count 38.52 k/cumm (1.2-6.7); White Blood Cell Count 41.42 k/cumm (4.4-10.8)
[2019-12-25 07:37] LABS: Anisocytosis 1+; Diff Comment Manual Differential; Poikilocytes 1+; Polychromasia Present
[2019-12-25] MEDS: Pantoprazole 40 MG TABCR PO ×2 (08:05→20:18)
[2019-12-25] MEDS: buPROPion-XL 150 MG TABCR 300 MG PO (08:06)
[2019-12-25] MEDS: Folic Acid 1 MG TAB PO (08:07)
[2019-12-25] MEDS: Multivitamin TAB 1 TAB PO (08:07)
[2019-12-25] MEDS: Magnesium Chloride 64 MG TABCR PO ×2 (08:07→20:19)
[2019-12-25] MEDS: Apixaban 5 MG TAB PO ×2 (08:07→20:20)
[2019-12-25] MEDS: Cyanocobalamin 500 MCG TAB 1000 MCG PO (08:07)
[2019-12-25] MEDS: Ferrous Gluconate 324 MG TAB PO (08:07)
[2019-12-25] MEDS: Insulin Aspart 300 UNITS/3 ML PEN SC ×3 (08:08→17:16)
[2019-12-25] MEDS: Mometasone 220 MCG 14 DOSE INHALER 2 PUFF IH ×2 (08:25→20:10)
[2019-12-25] MEDS: Normal Saline Flush 10 ML SYR IVP ×3 (09:02→17:00)
[2019-12-25] MEDS: Docusate Sodium 100 MG CAP PO (09:32)
[2019-12-25] MEDS: predniSONE 20 MG TAB 40 MG PO (09:32)
[2019-12-25] MEDS: Albuterol 2.5 MG/3 ML INH SOLN VIAL UPD (11:21)
--- NOTE | 2019-12-25 11:22 | W.NUTCONSULT ---
Date of service: 12/25/19 Time of Service: 11:22 Nutritional Consult ASSESSMENT: 64 year old male admitted into RICU, with PNA, D[place]. PMH: DM2, HTN, COPD, GERD, Schizo Disorder. BMI wnl. Following Diabetic diet with 50-75% meal completion. Meds include prednison, simvastatin, insulin, folic acid, FeS04. Labs indicate elevated blood sugars. Recommend Diabetic Consult for optimal blood sugar control. Not considered at nutritional risk at this time. MONITORING AND EVALUATION: weight, po intake, labs Time Spent in Nutritional Counseling and Treatment: 0 time spent face to face
--- NOTE | 2019-12-25 14:22 | PGE_ITS ---
Date of Service Date of service: 12/25/19 Time of Service: 14:23 Assessment and Plan Assessment and plan (1) Pneumonia: Status: Acute Assessment and plan: continue Vancomycin and Cefepime for now. Although his WBC summer overnight to 40,000, he is afebrile and his oxygen requirements have improved. His SPO2 is running 91 to 94% on RA even w/ambulating in the room. I am going to move him to a respiratory med/surg unit and out of RICU. He no longer meets ICU criteria (i.e. not tachycardic or hypoxemic nor any hypotension). I have dc his solu-medrol and switched to po prednisone. I think that he should remains hospitalized at least another night d/t his underlying COPD and prior lung abscess and his anna virus test is pending and he lives in a care home which will not be able to isolate him should he be positive for Anna virus. Qualifiers: Pneumonia type: due to unspecified organism Laterality: right Lung location: lower lobe of lung Qualified Code(s): J18.9 - Pneumonia, unspecified organism (2) [place] (acute kidney injury): Status: Resolved Assessment and plan: I will reduce his iv fluids, however if he continues to improve then his iv's can be dc'ed. (3) Acidosis, lactic: Status: Acute Assessment and plan: unfortunately no repeat lactate was done w/his a.m. labs. I will repeat this tomorrow w/his a.m. labs. until then will keep up iv fluids overnight. Subjective Subjective Patient reports: feels better; denies nausea and shortness of breath Interval history since last seen: no dizziness, dyspnea or chest pain. He is off supplemental oxygen. Exam Narrative Exam Narrative: A&Ox3, no distress, not dyspneic despite prolonged conversation Lungs w/ scattered wheezes and coarse rhonchi over RLL area Heart: regular rate/rhythm, no murmur, rub or gallop Abdomen: soft and nontender extremities w/out cyanosis or edema Neuro: grossly normal Objective Objective Clinical Data: Abnormal lab results 12/24/19 12/24/19 12/24/19 Range/Units 14:30 14:30 14:30 WBC 36.78 H* (4.4-10.8) k/cumm RBC 4.36 L (4.50-6.00) m/cumm Hgb 12.3 L (13.5-17.5) g/dL Hct 37.4 L (40.0-50.0) % RDW 18.7 H (11.8-14.1) % Absolute Neutrophils 32.37 H (1.2-6.7) k/cumm Absolute Lymphocytes 0.74 L (1.2-3.4) k/cumm Absolute Monocytes 3.68 H (0.11-0.7) k/cumm APTT 37.9 H (21.0-31.4) sec Anion Gap 13.3 H (3-11) mmol/L BUN 20 H (7-18) mg/dL Creatinine 1.53 H (0.70-1.30) mg/dL Glucose 176 H (74-106) mg/dL Lactate (0.6-1.4) mmol/L Magnesium 1.3 L (1.8-2.4) mg/dL AST 13 L (15-37) U/L NT-Pro-B Natriuret Pep 316 H (<300) pg/mL 12/24/19 12/24/19 12/24/19 Range/Units 14:30 18:10 20:56 WBC (4.4-10.8) k/cumm RBC (4.50-6.00) m/cumm Hgb (13.5-17.5) g/dL Hct (40.0-50.0) % RDW (11.8-14.1) % Absolute Neutrophils (1.2-6.7) k/cumm Absolute Lymphocytes (1.2-3.4) k/cumm Absolute Monocytes (0.11-0.7) k/cumm APTT (21.0-31.4) sec Anion Gap (3-11) mmol/L BUN (7-18) mg/dL Creatinine (0.70-1.30) mg/dL Glucose (74-106) mg/dL Lactate 3.7 H* 2.1 H* 2.2 H* (0.6-1.4) mmol/L Magnesium (1.8-2.4) mg/dL AST (15-37) U/L NT-Pro-B Natriuret Pep (<300) pg/mL 12/25/19 12/25/19 Range/Units 06:50 06:50 WBC 41.42 H* (4.4-10.8) k/cumm RBC 3.93 L (4.50-6.00) m/cumm Hgb 11.2 L (13.5-17.5) g/dL Hct 33.6 L (40.0-50.0) % RDW 18.7 H (11.8-14.1) % Absolute Neutrophils 38.52 H (1.2-6.7) k/cumm Absolute Lymphocytes (1.2-3.4) k/cumm Absolute Monocytes 1.66 H (0.11-0.7) k/cumm APTT (21.0-31.4) sec Anion Gap (3-11) mmol/L BUN (7-18) mg/dL Creatinine (0.70-1.30) mg/dL Glucose 236 H (74-106) mg/dL Lactate (0.6-1.4) mmol/L Magnesium (1.8-2.4) mg/dL AST (15-37) U/L NT-Pro-B Natriuret Pep (<300) pg/mL Vital Signs Temperature 36.3 C L 12/25/19 12:31 Temperature Source Temporal Artery Scan 12/25/19 12:31 Pulse 88 12/25/19 12:31 Respiratory Rate 20 12/25/19 12:31 Respiratory Effort 12/25/19 12:52 Respiratory Depth Normal 12/25/19 12:52 Respiratory Pattern Normal 12/25/19 12:52 Blood Pressure 138/77 12/25/19 12:31 Blood Pressure Mean 93 12/24/19 19:50 Blood Pressure Position Supine 12/25/19 07:40 Pulse Oximetry 93 L 12/25/19 12:52 Oxygen Delivery Method Room Air 12/25/19 12:52 Oxygen Flow Rate 0 12/25/19 12:52 Pain Level 0 12/25/19 12:52 Intake & Output 12/24/19 12/25/19 12/25/19 23:59 11:59 23:59 Intake Total 2805 / 2805 2600 / 2600 Output Total 1125 / 1125 900 / 1200 300 / 1200 Balance 1680 / 1680 1700 / 1400 -300 / 1400 Weight 67.585 kg Intake: IV 2410 / 2410 194 / 194 Oral 395 / 395 660 / 660 Output: Urine 1125 / 1125 900 / 1200 300 / 1200 Other: Urine Color Yellow Yellow Yellow Urine Appearance Clear Clear Clear Urine Odor None Normal Comment voids to urinal. Voiding to urinal independently. Voiding to urinal independently. Voiding Methods Urinal Urinal Laboratory Results WBC 41.42 k/cumm (4.4-10.8) H* 12/25/19 06:50 RBC 3.93 m/cumm (4.50-6.00) L 12/25/19 06:50 Hgb 11.2 g/dL (13.5-17.5) L 12/25/19 06:50 Hct 33.6 % (40.0-50.0) L 12/25/19 06:50 MCV 85.5 fL (80-95) 12/25/19 06:50 MCH 28.5 pg (27.0-33.0) 12/25/19 06:50 MCHC 33.3 g/dL (32.0-36.0) 12/25/19 06:50 RDW 18.7 % (11.8-14.1) H 12/25/19 06:50 Plt Count 297 x1000/uL (130-400) 12/25/19 06:50 MPV 10.2 fL (8.0-11.0) 12/25/19 06:50 Immature Gran % 0.0 % 12/25/19 06:50 Neutrophils % 86.0 12/25/19 06:50 Band Neutrophils % 7.0 % 12/25/19 06:50 Lymphocytes % 3.0 12/25/19 06:50 Atypical Lymphs % 0 12/24/19 14:30 Monocytes % 4.0 12/25/19 06:50 Eosinophils % 0.0 12/25/19 06:50 Basophils % 0.0 12/25/19 06:50 Absolute Neutrophils 38.52 k/cumm (1.2-6.7) H 12/25/19 06:50 Absolute Lymphocytes 1.24 k/cumm (1.2-3.4) 12/25/19 06:50 Absolute Monocytes 1.66 k/cumm (0.11-0.7) H 12/25/19 06:50 Absolute Eosinophils 0.00 k/cumm (0.0-0.7) 12/25/19 06:50 Absolute Basophils 0.00 k/cumm (0.0-0.2) 12/25/19 06:50 Differential Comment Manual differential 12/25/19 06:50 RBC Morphology See below 12/25/19 06:50 Polychromasia Present 12/25/19 06:50 Poikilocytosis 1+ 12/25/19 06:50 Anisocytosis 1+ 12/25/19 06:50 PT 10.8 sec (9.3-11.0) 12/24/19 14:30 INR 1.1 (0.9-1.1) 12/24/19 14:30 APTT 37.9 sec (21.0-31.4) H 12/24/19 14:30 Sodium 141 mmol/L (136-145) 12/25/19 06:50 Potassium 4.1 mmol/L (3.5-5.1) 12/25/19 06:50 Chloride 107 mmol/L (98-107) 12/25/19 06:50 Carbon Dioxide 25.8 mmol/L (21.0-32.0) 12/25/19 06:50 Anion Gap 8.2 mmol/L (3-11) 12/25/19 06:50 BUN 15 mg/dL (7-18) 12/25/19 06:50 Creatinine 1.00 mg/dL (0.70-1.30) D 12/25/19 06:50 Estimated GFR/1.73 m2 >= 60.00 (mL/min/1.73m2) 12/25/19 06:50 Glucose 236 mg/dL (74-106) H 12/25/19 06:50 Lactate 2.2 mmol/L (0.6-1.4) H* 12/24/19 20:56 Calcium 8.7 mg/dL (8.5-10.1) 12/25/19 06:50 Magnesium 1.3 mg/dL (1.8-2.4) L 12/24/19 14:30 Total Bilirubin 0.4 mg/dL (0.2-1.0) 12/24/19 14:30 AST 13 U/L (15-37) L 12/24/19 14:30 ALT 22 U/L (16-63) 12/24/19 14:30 Alkaline Phosphatase 85 U/L (46-116) 12/24/19 14:30 Troponin I < 0.05 ng/Ml (<0.06) 12/25/19 00:50 NT-Pro-B Natriuret Pep 316 pg/mL (<300) H 12/24/19 14:30 Total Protein 7.6 g/dL (6.4-8.2) 12/24/19 14:30 Albumin 3.8 g/dL (3.4-5.0) 12/24/19 14:30 TSH 0.69 uIU/mL (0.36-3.74) 12/25/19 06:50
--- NOTE | 2019-12-25 14:59 | PHA.ADMREV ---
Pharmacy Clinical Review - Admission Clinical Review (Last Updated 12/24/19 @ 19:51 by Tian Chakraborty) Pneumonia (Acute) Acidosis, lactic (Acute) No Known Allergies Allergy (Unverified 12/24/19 14:45) Height 5 ft 8 in Weight 67.585 kg - Renal Dosing Renal Dosing: BUN 15 mg/dL (7-18) 12/25/19 06:50 Creatinine 1.00 mg/dL (0.70-1.30) D 12/25/19 06:50 Medications needing adjustments: Reviewed (Crcl ~69.4 mL/min current meds okay) - Anticoagulation Anticoagulation: Hgb 11.2 g/dL (13.5-17.5) L 12/25/19 06:50 Hct 33.6 % (40.0-50.0) L 12/25/19 06:50 Plt Count 297 x1000/uL (130-400) 12/25/19 06:50 INR 1.1 (0.9-1.1) 12/24/19 14:30 Creatinine 1.00 mg/dL (0.70-1.30) D 12/25/19 06:50 DVT Prohphylaxis: N/A Therapeutic Anticoagulation: Reviewed Medications: Apixaban - Opiate Usage Evaluate Pain Scale/Pains Meds: N/A Scheduled Bowel Reg ordered if on Opiates?: No (has PRN meds ordered) - Relevant Labs Sodium 141 mmol/L (136-145) 12/25/19 06:50 Potassium 4.1 mmol/L (3.5-5.1) 12/25/19 06:50 Chloride 107 mmol/L (98-107) 12/25/19 06:50 Magnesium 1.3 mg/dL (1.8-2.4) L 12/24/19 14:30 Electrolytes, C-Reactive P, ESR: Reviewed (mag replacement given) - Antimicrobial Stewardship Antibiotic appropriateness: Reviewed (cefepime and vanco for pneumonia) Surgical Abx d/c within 24 hr: No Culture review/Resistance: Reviewed (blood cultures pending, rapid flu negative) - DM Control DM Control: Glucose 236 mg/dL (74-106) H 12/25/19 06:50 Finger Stick Blood Glucose 228 Finger Stick Blood Glucose 228 Finger Stick Blood Glucose 249 Finger Stick Blood Glucose 249 Insulin Dosing: Reviewed (sliding scale aspart ordered) - Heart Failure/CA Heart Failure/CA: Troponin I < 0.05 ng/Ml (<0.06) 12/25/19 00:50 NT-Pro-B Natriuret Pep 316 pg/mL (<300) H 12/24/19 14:30 EF%, APOLONIA's, B-Blockers, Diuretics: N/A - BP Control BP Control: Blood Pressure 138/77 Blood Pressure 141/86 Blood Pressure 144/77 If elevated: Reviewed (not currently on any meds for BP) - QTc Review If Elevated: Reviewed (QTc 471) - IV to PO Switch IV Medications: Reviewed - Home Meds Home Med List reviewed: Reviewed (umeclidinium may enhance the anticholinergic effects of clozapine; recommended to avoid concurrent use or monitor closely for evidence of toxicity. Multiple QT prolonging meds: clozapine, ziprasidone, vilanterol. Separate admin of antacids from multivitamin and ferrous gluconate.) Relevent Home Meds Not ordered & why?: fluticasone (mometasone ordered), metformin (sliding scale aspart ordered), umeclidinium and vilanterol (was cancelled as pt has duonebs scheduled) - Current meds Current Medication Order Review: Intervened (talked to MD about umeclidinium and vilanterol not being recommended with scheduled duonebs (increased risk of anticholinergic adverse/toxic effects). Discontinued duplicate order) - Comments Comments/Follow Ups: Watch mag levels, BP, for culture and serology results.
[2019-12-25] MEDS: Simvastatin 20 MG TAB PO (20:55)
[2019-12-26] VITALS (15 sets, daily range): BP systolic 136–173; BP diastolic 62–98; PULSE 72–90; RESP 1–30; TEMP 35.6–36.6; O2SAT 86–94
[2019-12-26] MEDS: CEFEPIME 2 GM in Normal Saline 100 ML IVPB ×2 (03:15→16:18)
[2019-12-26 07:03] LABS: Lactate 1.5 mmol/L (0.6-1.4)
[2019-12-26] MEDS: Albuterol/Ipratropium 3 ML UPD VIAL UPD ×3 (07:09→17:39)
[2019-12-26 07:12] LABS: Abs Immature Grans 0.34 k/cumm (0.0-0.09); HCT 28.9 % (40.0-50.0); HGB 9.4 g/dL (13.5-17.5); Immature Grans % 0.9 %; Mean Corp. HGB Concentration 32.5 g/dL (32.0-36.0); Mean Corpuscular Hemoglobin 27.8 pg (27.0-33.0); Mean Corpuscular Volume 85.5 fL (80-95); Mean Platelet Volume 10.2 fL (8.0-11.0); Platelet Count 286 x1000/uL (130-400); RBC 3.38 m/cumm (4.50-6.00); RBC Distribution Width 18.7 % (11.8-14.1)
[2019-12-26 07:20] LABS: Anion Gap 5.4 mmol/L (3-11); BUN 15 mg/dL (7-18); CO2 27.6 mmol/L (21.0-32.0); CREATININE 0.88 mg/dL (0.70-1.30); Calcium 8.7 mg/dL (8.5-10.1); Chloride 107 mmol/L (98-107); Glucose 195 mg/dL (74-106); Potassium 4.5 mmol/L (3.5-5.1); Sodium 140 mmol/L (136-145)
[2019-12-26 08:17] LABS: Absolute Lymphocyte Count 1.13 k/cumm (1.2-3.4); Absolute Monocyte Count 2.64 k/cumm (0.11-0.7); Absolute Neutrophil Count 33.91 k/cumm (1.2-6.7)
[2019-12-26 08:21] LABS: Hypochromasia 1+; Macrocytosis 1+; Poikilocytes 1+; Polychromasia Present
[2019-12-26 08:22] LABS: Anisocytosis 2+
[2019-12-26 08:23] LABS: Diff Comment RBC Morph Reviewed
[2019-12-26 08:28] LABS: Procalcitonin 3.5 ng/mL
[2019-12-26] MEDS: Docusate Sodium 100 MG CAP PO (10:44)
[2019-12-26] MEDS: Cyanocobalamin 500 MCG TAB 1000 MCG PO (10:44)
[2019-12-26] MEDS: Magnesium Chloride 64 MG TABCR PO ×2 (10:45→19:26)
[2019-12-26] MEDS: buPROPion-XL 150 MG TABCR 300 MG PO (10:45)
[2019-12-26] MEDS: predniSONE 20 MG TAB 40 MG PO (10:46)
[2019-12-26] MEDS: Multivitamin TAB 1 TAB PO (10:46)
[2019-12-26] MEDS: Apixaban 5 MG TAB PO ×2 (10:46→19:28)
[2019-12-26] MEDS: Folic Acid 1 MG TAB PO (10:46)
[2019-12-26] MEDS: Pantoprazole 40 MG TABCR PO ×2 (10:46→19:28)
[2019-12-26] MEDS: Mometasone 220 MCG 14 DOSE INHALER 2 PUFF IH ×2 (10:53→19:24)
[2019-12-26] MEDS: Lactated Ringers 1,000 ML 75 ML IV (11:10)
[2019-12-26] MEDS: Ferrous Gluconate 324 MG TAB PO (11:37)
[2019-12-26] MEDS: Insulin Aspart 300 UNITS/3 ML PEN SC ×2 (12:01→16:50)
--- NOTE | 2019-12-26 13:04 | W.PM.PROGNOT ---
Date of Service Date of service: 12/26/19 Time of Service: 13:04 Assessment and Plan Assessment and plan (1) Pneumonia: Status: Acute Assessment and plan: Clinically improving on Vancomycin and Cefepime. Continue current abx, start to taper PO steroids. Await COVID 19 testing. Wean O2 as tolerated. May have to repeat imaging. Qualifiers: Pneumonia type: due to unspecified organism Laterality: right Lung location: lower lobe of lung Qualified Code(s): J18.9 - Pneumonia, unspecified organism (2) [place] (acute kidney injury): Status: Resolved Assessment and plan: D/c IVF. (3) Acidosis, lactic: Status: Acute Assessment and plan: Improved. Clinically, no longer requiring IVF. Recheck in am. (4) Non-insulin dependent type 2 diabetes mellitus: Status: Chronic Assessment and plan: Continue SSI. Taper PO steroids. (5) Schizo affective schizophrenia: Status: Chronic Assessment and plan: Continue outpatient therapy (6) DVT prophylaxis: Status: Acute Assessment and plan: On therapeutic eliquis (7) Discharge planning issues: Status: Acute Assessment and plan: DNR/DNI Subjective Subjective Interval history since last seen: Mr Estevez states he feels better. States his cough is productive, but he does not know what the color is. Denies dizziness, chest pain, shortness of breath, nausea, abdominal pain.His oxygen requirement has been about 2 L. 1 blood culture came back positive yesterday. Exam Narrative Exam Narrative: General: Very pleasant mildde-aged male, A&Ox3, laying comfortably in bed HEENT: EOMI, MMM Heart: RRR, no m/r/g Lungs: Diminished but clear breath sounds B Abdomen: soft, nontender, nondistended Extremities: no e/c/c BLE's Objective Objective Clinical Data: Abnormal lab results 12/26/19 12/26/19 12/26/19 Range/Units 06:40 06:40 06:40 WBC 37.68 H* (4.4-10.8) k/cumm RBC 3.38 L (4.50-6.00) m/cumm Hgb 9.4 L (13.5-17.5) g/dL Hct 28.9 L (40.0-50.0) % RDW 18.7 H (11.8-14.1) % Absolute Neutrophils 33.91 H (1.2-6.7) k/cumm Absolute Lymphocytes 1.13 L (1.2-3.4) k/cumm Absolute Monocytes 2.64 H (0.11-0.7) k/cumm Glucose 195 H (74-106) mg/dL Lactate 1.5 H (0.6-1.4) mmol/L Vital Signs Temperature 36.6 C 12/26/19 13:01 Temperature Source Temporal Artery Scan 12/26/19 13:01 Pulse 79 12/26/19 13:01 Pulse Rhythm Regular 12/26/19 09:58 Respiratory Rate 20 12/26/19 13:01 Respiratory Effort Non-Labored 12/26/19 09:58 Respiratory Depth Normal 12/26/19 09:58 Respiratory Pattern Normal 12/26/19 09:58 Blood Pressure 173/98 H 12/26/19 13:01 Blood Pressure Mean 93 12/24/19 19:50 Blood Pressure Position Supine 12/25/19 07:40 Pulse Oximetry 86 L 12/26/19 13:01 Oxygen Delivery Method Room Air 12/26/19 13:01 Oxygen Flow Rate 0 12/26/19 13:01 Pain Level 0 12/26/19 00:30 Comment 12/26/19 13:01 Intake & Output 12/25/19 12/26/19 12/26/19 23:59 11:59 23:59 Intake Total 1890 / 4790 1635 / 2115 480 / 2115 Output Total 1124 3450 / 3450 Balance 765 / 2765 -1815 / -1335 480 / -1335 Intake: IV 1200 / 3440 1635 / 1635 Oral 690 / 1350 480 / 480 Output: Urine 1124 3450 / 3450 Other: Urine Color Dark Vandana Pale Urine Appearance Clear Clear Urine Odor Normal Normal Comment Using the toilet with a graduated liner underneath the seat. Voiding Methods Toilet Urinal Laboratory Results WBC 37.68 k/cumm (4.4-10.8) H* 12/26/19 06:40 RBC 3.38 m/cumm (4.50-6.00) L 12/26/19 06:40 Hgb 9.4 g/dL (13.5-17.5) L 12/26/19 06:40 Hct 28.9 % (40.0-50.0) L 12/26/19 06:40 MCV 85.5 fL (80-95) 12/26/19 06:40 MCH 27.8 pg (27.0-33.0) 12/26/19 06:40 MCHC 32.5 g/dL (32.0-36.0) 12/26/19 06:40 RDW 18.7 % (11.8-14.1) H 12/26/19 06:40 Plt Count 286 x1000/uL (130-400) 12/26/19 06:40 MPV 10.2 fL (8.0-11.0) 12/26/19 06:40 Immature Gran % 0.9 % 12/26/19 06:40 Neutrophils % 90.0 12/26/19 06:40 Band Neutrophils % 7.0 % 12/25/19 06:50 Lymphocytes % 3.0 12/26/19 06:40 Atypical Lymphs % 0 12/24/19 14:30 Monocytes % 7.0 12/26/19 06:40 Eosinophils % 0.0 12/26/19 06:40 Basophils % 0.0 12/26/19 06:40 Absolute Neutrophils 33.91 k/cumm (1.2-6.7) H 12/26/19 06:40 Absolute Lymphocytes 1.13 k/cumm (1.2-3.4) L 12/26/19 06:40 Absolute Monocytes 2.64 k/cumm (0.11-0.7) H 12/26/19 06:40 Absolute Eosinophils 0.00 k/cumm (0.0-0.7) 12/26/19 06:40 Absolute Basophils 0.00 k/cumm (0.0-0.2) 12/26/19 06:40 Differential Comment Rbc morph reviewed 12/26/19 06:40 RBC Morphology See below 12/26/19 06:40 Polychromasia Present 12/26/19 06:40 Hypochromasia 1+ 12/26/19 06:40 Poikilocytosis 1+ 12/26/19 06:40 Anisocytosis 2+ 12/26/19 06:40 Macrocytosis 1+ 12/26/19 06:40 PT 10.8 sec (9.3-11.0) 12/24/19 14:30 INR 1.1 (0.9-1.1) 12/24/19 14:30 APTT 37.9 sec (21.0-31.4) H 12/24/19 14:30 Sodium 140 mmol/L (136-145) 12/26/19 06:40 Potassium 4.5 mmol/L (3.5-5.1) 12/26/19 06:40 Chloride 107 mmol/L (98-107) 12/26/19 06:40 Carbon Dioxide 27.6 mmol/L (21.0-32.0) 12/26/19 06:40 Anion Gap 5.4 mmol/L (3-11) 12/26/19 06:40 BUN 15 mg/dL (7-18) 12/26/19 06:40 Creatinine 0.88 mg/dL (0.70-1.30) 12/26/19 06:40 Estimated GFR/1.73 m2 >= 60.00 (mL/min/1.73m2) 12/26/19 06:40 Glucose 195 mg/dL (74-106) H 12/26/19 06:40 Lactate 1.5 mmol/L (0.6-1.4) H 12/26/19 06:40 Calcium 8.7 mg/dL (8.5-10.1) 12/26/19 06:40 Magnesium 2.0 mg/dL (1.8-2.4) 12/26/19 06:40 Total Bilirubin 0.4 mg/dL (0.2-1.0) 12/24/19 14:30 AST 13 U/L (15-37) L 12/24/19 14:30 ALT 22 U/L (16-63) 12/24/19 14:30 Alkaline Phosphatase 85 U/L (46-116) 12/24/19 14:30 Troponin I < 0.05 ng/Ml (<0.06) 12/25/19 00:50 NT-Pro-B Natriuret Pep 316 pg/mL (<300) H 12/24/19 14:30 Total Protein 7.6 g/dL (6.4-8.2) 12/24/19 14:30 Albumin 3.8 g/dL (3.4-5.0) 12/24/19 14:30 Procalcitonin 3.5 ng/mL 12/26/19 06:40 TSH 0.69 uIU/mL (0.36-3.74) 12/25/19 06:50 Coronavirus (PCR) Cancelled 12/25/19 15:24
[2019-12-26] MEDS: Acetaminophen 325 MG TAB PO (13:46)
[2019-12-26] MEDS: Normal Saline Flush 10 ML SYR IVP (16:19)
[2019-12-26] MEDS: Simvastatin 20 MG TAB PO (19:30)
[2019-12-27] VITALS (12 sets, daily range): BP systolic 126–149; BP diastolic 71–93; PULSE 70–88; RESP 1–24; TEMP 35.3–36.7; O2SAT 89–93
[2019-12-27] MEDS: Albuterol/Ipratropium 3 ML UPD VIAL UPD ×4 (02:23→18:44)
[2019-12-27] MEDS: Normal Saline Flush 10 ML SYR IVP ×3 (05:18→15:36)
[2019-12-27] MEDS: CEFEPIME 2 GM in Normal Saline 100 ML IVPB ×2 (05:18→16:07)
[2019-12-27 06:36] LABS: Lactate 1.4 mmol/L (0.6-1.4)
[2019-12-27 06:37] LABS: HCT 31.2 % (40.0-50.0); HGB 10.2 g/dL (13.5-17.5); Mean Corp. HGB Concentration 32.7 g/dL (32.0-36.0); Mean Corpuscular Hemoglobin 27.9 pg (27.0-33.0); Mean Corpuscular Volume 85.5 fL (80-95); Mean Platelet Volume 10.2 fL (8.0-11.0); Platelet Count 319 x1000/uL (130-400); RBC 3.65 m/cumm (4.50-6.00); RBC Distribution Width 18.6 % (11.8-14.1)
[2019-12-27 06:49] LABS: Anion Gap 5.8 mmol/L (3-11); BUN 16 mg/dL (7-18); CO2 31.2 mmol/L (21.0-32.0); CREATININE 0.82 mg/dL (0.70-1.30); Calcium 9.4 mg/dL (8.5-10.1); Chloride 104 mmol/L (98-107); Glucose 209 mg/dL (74-106); Potassium 3.9 mmol/L (3.5-5.1); Sodium 141 mmol/L (136-145)
[2019-12-27 06:51] LABS: C-Reactive Protein 5.78 mg/dL (0.0-0.3); Magnesium 1.8 mg/dL (1.8-2.4)
[2019-12-27 06:58] LABS: White Blood Cell Count 29.68 k/cumm (4.4-10.8)
[2019-12-27 06:59] LABS: Absolute Lymphocyte Count 2.08 k/cumm (1.2-3.4); Absolute Monocyte Count 1.48 k/cumm (0.11-0.7); Absolute Neutrophil Count 25.82 k/cumm (1.2-6.7)
[2019-12-27 07:01] LABS: Anisocytosis 1+; Diff Comment Manual Differential; Polychromasia Present
[2019-12-27 07:02] LABS: Poikilocytes 1+
[2019-12-27] MEDS: Mometasone 220 MCG 14 DOSE INHALER 2 PUFF IH ×2 (08:58→20:17)
[2019-12-27] MEDS: Magnesium Chloride 64 MG TABCR PO ×2 (08:58→20:16)
[2019-12-27] MEDS: Folic Acid 1 MG TAB PO (08:59)
[2019-12-27] MEDS: Multivitamin TAB 1 TAB PO (08:59)
[2019-12-27] MEDS: Pantoprazole 40 MG TABCR PO ×2 (08:59→20:17)
[2019-12-27] MEDS: Docusate Sodium 100 MG CAP PO ×2 (08:59→20:17)
[2019-12-27] MEDS: buPROPion-XL 150 MG TABCR 300 MG PO (08:59)
[2019-12-27] MEDS: Apixaban 5 MG TAB PO ×2 (09:01→20:16)
[2019-12-27] MEDS: Cyanocobalamin 500 MCG TAB 1000 MCG PO (09:01)
[2019-12-27] MEDS: predniSONE 20 MG TAB PO (09:02)
[2019-12-27] MEDS: Polyethylene Glycol 3350 17 GM PACKET PO (09:03)
[2019-12-27] MEDS: Insulin Aspart 300 UNITS/3 ML PEN SC ×3 (09:08→17:01)
[2019-12-27] MEDS: Ferrous Gluconate 324 MG TAB PO (10:43)
--- NOTE | 2019-12-27 11:15 | W.PM.PROGNOT ---
Date of Service Date of service: 12/27/19 Time of Service: 11:16 Assessment and Plan Assessment and plan (1) Pneumonia: Status: Acute Assessment and plan: Clinically improving on Vancomycin and Cefepime. Continue current abx. Continue steroid taper. Await COVID 19 testing. Wean O2 as tolerated. May have to repeat imaging. Qualifiers: Pneumonia type: due to unspecified organism Laterality: right Lung location: lower lobe of lung Qualified Code(s): J18.9 - Pneumonia, unspecified organism (2) [place] (acute kidney injury): Status: Resolved Assessment and plan: Doing well off IVF. (3) Acidosis, lactic: Status: Resolved Assessment and plan: No longer on IVF. (4) Non-insulin dependent type 2 diabetes mellitus: Status: Chronic Assessment and plan: Continue SSI. Taper PO steroids. (5) Schizo affective schizophrenia: Status: Chronic Assessment and plan: Continue outpatient therapy (6) DVT prophylaxis: Status: Acute Assessment and plan: On therapeutic eliquis (7) Discharge planning issues: Status: Acute Assessment and plan: DNR/DNI Subjective Subjective Interval history since last seen: Mr Estevez states he is having a good day. Denies dizziness, chest pain, shortness of breath, nausea, abdominal pain. He has required 2L of O2 to saturate >88%; he is asymptomatic when he desats. Has had intermittent cough productive of white sputum. Blood culture from 12/23: Staph aureus in 1 bottle/, sensitivities pending. Repeat blood cutlures pending. Exam Narrative Exam Narrative: General: Very pleasant mildde-aged male, A&Ox3, sitting up in a chair, in good spirits, no respiratory distress. HEENT: EOMI, MMM Heart: RRR, no m/r/g Lungs: Diminished but clear breath sounds B, but does have rhonchi in L mid-lung field Abdomen: soft, nontender, nondistended Extremities: no e/c/c BLE's Objective Objective Clinical Data: Abnormal lab results 12/27/19 12/27/19 12/27/19 Range/Units 06:05 06:05 06:05 WBC 29.68 H* (4.4-10.8) k/cumm RBC 3.65 L (4.50-6.00) m/cumm Hgb 10.2 L (13.5-17.5) g/dL Hct 31.2 L (40.0-50.0) % RDW 18.6 H (11.8-14.1) % Absolute Neutrophils 25.82 H (1.2-6.7) k/cumm Absolute Monocytes 1.48 H (0.11-0.7) k/cumm Glucose 209 H (74-106) mg/dL C-Reactive Protein 5.78 H (0.0-0.3) mg/dL Vital Signs Temperature 35.3 C L 12/27/19 10:05 Temperature Source Tympanic 12/27/19 10:05 Pulse 87 12/27/19 10:28 Pulse Rhythm Irregular 12/27/19 00:43 Respiratory Rate 14 12/27/19 10:05 Respiratory Effort 12/27/19 00:43 Respiratory Depth Normal 12/27/19 00:43 Respiratory Pattern Normal 12/27/19 00:43 Blood Pressure 144/83 H 12/27/19 10:05 Blood Pressure Mean 93 12/24/19 19:50 Blood Pressure Position Supine 12/25/19 07:40 Pulse Oximetry 90 L 12/27/19 10:05 Oxygen Delivery Method Nasal Cannula 12/27/19 10:05 Oxygen Flow Rate 2 12/27/19 10:05 Pain Level 0 12/27/19 10:05 Comment 12/27/19 00:41 Intake & Output 12/26/19 12/26/19 12/27/19 11:59 23:59 11:59 Intake Total 1635 / 2760 1125 / 2760 1820 / 1820 Output Total 3450 / 4750 1300 / 4750 2550 / 2550 Balance -1815 / -1989 -175 / -1989 -0 / -730 Intake: IV 1635 / 2035 400 / 2035 1100 / 1100 Oral 725 / 725 720 / 720 Output: Urine 3450 / 4750 1300 / 4750 2550 / 2550 Other: Urine Color Pale Light Vandana Pale Yellow Urine Appearance Clear Clear Clear Urine Odor Normal Normal Comment patient encouraged to walk to the bathroom versus using a urinal Voiding Methods Urinal Urinal Urinal Laboratory Results WBC 29.68 k/cumm (4.4-10.8) H* 12/27/19 06:05 RBC 3.65 m/cumm (4.50-6.00) L 12/27/19 06:05 Hgb 10.2 g/dL (13.5-17.5) L 12/27/19 06:05 Hct 31.2 % (40.0-50.0) L 12/27/19 06:05 MCV 85.5 fL (80-95) 12/27/19 06:05 MCH 27.9 pg (27.0-33.0) 12/27/19 06:05 MCHC 32.7 g/dL (32.0-36.0) 12/27/19 06:05 RDW 18.6 % (11.8-14.1) H 12/27/19 06:05 Plt Count 319 x1000/uL (130-400) 12/27/19 06:05 MPV 10.2 fL (8.0-11.0) 12/27/19 06:05 Immature Gran % See Differential 12/27/19 06:05 Neutrophils % 84.0 12/27/19 06:05 Band Neutrophils % 3.0 % 12/27/19 06:05 Lymphocytes % 7.0 12/27/19 06:05 Atypical Lymphs % 0 12/24/19 14:30 Monocytes % 5.0 12/27/19 06:05 Eosinophils % 0.0 12/27/19 06:05 Basophils % 0.0 12/27/19 06:05 Myelocytes % 1.0 % 12/27/19 06:05 Absolute Neutrophils 25.82 k/cumm (1.2-6.7) H 12/27/19 06:05 Absolute Lymphocytes 2.08 k/cumm (1.2-3.4) 12/27/19 06:05 Absolute Monocytes 1.48 k/cumm (0.11-0.7) H 12/27/19 06:05 Absolute Eosinophils 0.00 k/cumm (0.0-0.7) 12/27/19 06:05 Absolute Basophils 0.00 k/cumm (0.0-0.2) 12/27/19 06:05 Differential Comment Manual differential 12/27/19 06:05 RBC Morphology See below 12/27/19 06:05 Polychromasia Present 12/27/19 06:05 Hypochromasia 1+ 12/26/19 06:40 Poikilocytosis 1+ 12/27/19 06:05 Anisocytosis 1+ 12/27/19 06:05 Macrocytosis 1+ 12/26/19 06:40 PT 10.8 sec (9.3-11.0) 12/24/19 14:30 INR 1.1 (0.9-1.1) 12/24/19 14:30 APTT 37.9 sec (21.0-31.4) H 12/24/19 14:30 Sodium 141 mmol/L (136-145) 12/27/19 06:05 Potassium 3.9 mmol/L (3.5-5.1) 12/27/19 06:05 Chloride 104 mmol/L (98-107) 12/27/19 06:05 Carbon Dioxide 31.2 mmol/L (21.0-32.0) 12/27/19 06:05 Anion Gap 5.8 mmol/L (3-11) 12/27/19 06:05 BUN 16 mg/dL (7-18) 12/27/19 06:05 Creatinine 0.82 mg/dL (0.70-1.30) 12/27/19 06:05 Estimated GFR/1.73 m2 >= 60.00 (mL/min/1.73m2) 12/27/19 06:05 Glucose 209 mg/dL (74-106) H 12/27/19 06:05 Lactate 1.4 mmol/L (0.6-1.4) 12/27/19 06:05 Calcium 9.4 mg/dL (8.5-10.1) 12/27/19 06:05 Magnesium 1.8 mg/dL (1.8-2.4) 12/27/19 06:05 Total Bilirubin 0.4 mg/dL (0.2-1.0) 12/24/19 14:30 AST 13 U/L (15-37) L 12/24/19 14:30 ALT 22 U/L (16-63) 12/24/19 14:30 Alkaline Phosphatase 85 U/L (46-116) 12/24/19 14:30 Troponin I < 0.05 ng/Ml (<0.06) 12/25/19 00:50 C-Reactive Protein 5.78 mg/dL (0.0-0.3) H 12/27/19 06:05 NT-Pro-B Natriuret Pep 316 pg/mL (<300) H 12/24/19 14:30 Total Protein 7.6 g/dL (6.4-8.2) 12/24/19 14:30 Albumin 3.8 g/dL (3.4-5.0) 12/24/19 14:30 Procalcitonin 3.5 ng/mL 12/26/19 06:40 TSH 0.69 uIU/mL (0.36-3.74) 12/25/19 06:50 Vancomycin Trough Cancelled 12/27/19 13:00 Coronavirus (PCR) Cancelled 12/25/19 15:24
[2019-12-27] MEDS: Normal Saline 500 ML 30 ML IV (16:07)
[2019-12-27 16:21] LABS: Vancomycin, Trough 8.3 ug/mL (10.0-20.0)
--- NOTE | 2019-12-27 17:49 | NUR.NOTE ---
Nursing Note: Staff person from [facility] called requesting [facility] draw and test pt's Clozapine level-staff reported to previous rn that pt is now dur for monthly check of level.
[2019-12-27] MEDS: Acetaminophen 325 MG TAB PO (20:16)
[2019-12-27] MEDS: Simvastatin 20 MG TAB PO (20:17)
[2019-12-28] VITALS (12 sets, daily range): BP systolic 112–146; BP diastolic 67–90; PULSE 71–106; RESP 1–37; TEMP 35.9–36.5; O2SAT 91–97
[2019-12-28] MEDS: Albuterol/Ipratropium 3 ML UPD VIAL UPD ×5 (00:22→23:25)
[2019-12-28] MEDS: CEFEPIME 2 GM in Normal Saline 100 ML IVPB (04:22)
[2019-12-28 06:28] LABS: Abs Immature Grans 0.83 k/cumm (0.0-0.09); HCT 31.2 % (40.0-50.0); HGB 10.2 g/dL (13.5-17.5); Mean Corp. HGB Concentration 32.7 g/dL (32.0-36.0); Mean Corpuscular Hemoglobin 27.9 pg (27.0-33.0); Mean Corpuscular Volume 85.2 fL (80-95); Mean Platelet Volume 9.6 fL (8.0-11.0); Platelet Count 308 x1000/uL (130-400); RBC 3.66 m/cumm (4.50-6.00); RBC Distribution Width 18.3 % (11.8-14.1); White Blood Cell Count 17.57 k/cumm (4.4-10.8)
[2019-12-28 06:38] LABS: Anion Gap 5.4 mmol/L (3-11); BUN 18 mg/dL (7-18); CO2 31.6 mmol/L (21.0-32.0); CREATININE 0.91 mg/dL (0.70-1.30); Chloride 104 mmol/L (98-107); Glucose 183 mg/dL (74-106); Magnesium 1.6 mg/dL (1.8-2.4); Potassium 3.8 mmol/L (3.5-5.1); Sodium 141 mmol/L (136-145)
[2019-12-28 06:46] LABS: Absolute Eosinophil Count 0.18 k/cumm (0.0-0.7); Absolute Lymphocyte Count 2.99 k/cumm (1.2-3.4); Absolute Monocyte Count 1.23 k/cumm (0.11-0.7); Absolute Neutrophil Count 13.18 k/cumm (1.2-6.7)
[2019-12-28 06:47] LABS: Anisocytosis 1+; Diff Comment Manual Differential
[2019-12-28] MEDS: Pantoprazole 40 MG TABCR PO ×2 (08:53→20:22)
[2019-12-28] MEDS: buPROPion-XL 150 MG TABCR 300 MG PO (08:54)
[2019-12-28] MEDS: Apixaban 5 MG TAB PO ×2 (08:54→20:22)
[2019-12-28] MEDS: Cyanocobalamin 500 MCG TAB 1000 MCG PO (08:55)
[2019-12-28] MEDS: Magnesium Chloride 64 MG TABCR PO ×2 (08:55→20:22)
[2019-12-28] MEDS: Mometasone 220 MCG 14 DOSE INHALER 2 PUFF IH ×2 (08:55→20:22)
[2019-12-28] MEDS: Folic Acid 1 MG TAB PO (08:55)
[2019-12-28] MEDS: Multivitamin TAB 1 TAB PO (08:56)
[2019-12-28] MEDS: predniSONE 20 MG TAB PO (08:56)
[2019-12-28] MEDS: Insulin Aspart 300 UNITS/3 ML PEN SC ×3 (08:57→17:28)
[2019-12-28 09:40] LABS: White Blood Cell Count 37.68 k/cumm (4.4-10.8)
[2019-12-28] MEDS: Ferrous Gluconate 324 MG TAB PO (11:00)
[2019-12-28] MEDS: Docusate Sodium 100 MG CAP PO ×2 (11:00→20:22)
[2019-12-28] MEDS: MAGNESIUM SULFATE 2 GM/50 ML BAG IVPB (11:15)
[2019-12-28] MEDS: Normal Saline Flush 10 ML SYR IVP ×2 (11:59→20:21)
--- NOTE | 2019-12-28 13:36 | W.PM.PROGNOT ---
Date of Service Date of service: 12/28/19 Time of Service: 13:37 Assessment and Plan Assessment and plan (1) Sepsis: Status: Acute Assessment and plan: Due to MSSA bacteremia and pneumonia, present on admission. Due to difficulties getting to therapeutic vancomycin trough, we are switching to oxacilling 2 grams IV Q4hrs. Blood cultures repeated today. Concern for endocarditis. Echo ordered. Obtain ID consult once echo results are known. (2) MSSA bacteremia: Status: Acute Assessment and plan: As above (3) Pneumonia: Status: Acute Assessment and plan: With MSSA bacteremia. No evidence of lung abscess on CT on this admission. Abx are being switched to oxacillin. Wean O2 as tolerated. Continue steroid taper. Await COVID 19 testing (had to be repeated yesterday). May have to repeat imaging. Qualifiers: Pneumonia type: due to unspecified organism Laterality: right Lung location: lower lobe of lung Qualified Code(s): J18.9 - Pneumonia, unspecified organism (4) [place] (acute kidney injury): Status: Resolved Assessment and plan: Doing well off IVF. Continue to monitor. (5) Acidosis, lactic: Status: Resolved Assessment and plan: No longer on IVF. (6) Non-insulin dependent type 2 diabetes mellitus: Status: Chronic Assessment and plan: Continue SSI. Taper PO steroids. (7) Schizo affective schizophrenia: Status: Chronic Assessment and plan: Continue outpatient therapy (8) DVT prophylaxis: Status: Acute Assessment and plan: On therapeutic eliquis (9) Discharge planning issues: Status: Acute Assessment and plan: DNR/DNI Subjective Subjective Interval history since last seen: The patient states that he again is having a good day, about the same as yesterday. Denies dizziness, chest pain, shortness of breath, nausea, abdominal pain. Constipated. Exam Narrative Exam Narrative: General: Very pleasant mildde-aged male, A&Ox3, sitting up in a chair, no tachypnea visible (but RR is in the 30's) - no increased work of breathing, breaths shallow HEENT: EOMI, MMM Heart: RRR, no m/r/g Lungs: Diminished breath sounds B Abdomen: soft, nontender, nondistended Extremities: no e/c/c BLE's Objective Objective Clinical Data: Abnormal lab results 12/26/19 12/27/1920 Range/Units 06:40 15:55 06:10 WBC 37.68 H* (4.4-10.8) k/cumm RBC (4.50-6.00) m/cumm Hgb (13.5-17.5) g/dL Hct (40.0-50.0) % RDW (11.8-14.1) % Absolute Neutrophils (1.2-6.7) k/cumm Absolute Monocytes (0.11-0.7) k/cumm Glucose 183 H (74-106) mg/dL Magnesium 1.6 L (1.8-2.4) mg/dL C-Reactive Protein 2.80 H (0.0-0.3) mg/dL Vancomycin Trough 8.3 L (10.0-20.0) ug/mL 12/28/19 Range/Units 06:10 WBC 17.57 H D (4.4-10.8) k/cumm RBC 3.66 L (4.50-6.00) m/cumm Hgb 10.2 L (13.5-17.5) g/dL Hct 31.2 L (40.0-50.0) % RDW 18.3 H (11.8-14.1) % Absolute Neutrophils 13.18 H (1.2-6.7) k/cumm Absolute Monocytes 1.23 H (0.11-0.7) k/cumm Glucose (74-106) mg/dL Magnesium (1.8-2.4) mg/dL C-Reactive Protein (0.0-0.3) mg/dL Vancomycin Trough (10.0-20.0) ug/mL Vital Signs Temperature 35.9 C L 12/28/19 08:03 Temperature Source Tympanic 12/28/19 08:03 Pulse 106 H 12/28/19 11:53 Pulse Rhythm Regular 12/28/19 08:47 Respiratory Rate 37 H 12/28/19 12:59 Respiratory Effort Non-Labored 12/28/19 08:47 Respiratory Depth Shallow 12/28/19 08:47 Respiratory Pattern Normal 12/28/19 08:47 Blood Pressure 119/71 12/28/19 12:59 Blood Pressure Mean 93 12/24/19 19:50 Blood Pressure Position Supine 12/25/19 07:40 Pulse Oximetry 91 L 12/28/19 12:59 Oxygen Delivery Method Nasal Cannula 12/28/19 12:59 Oxygen Flow Rate 4 12/28/19 12:59 Pain Level 0 12/28/19 08:03 Comment 12/27/19 00:41 Intake & Output 12/27/19 12/28/19 12/28/19 23:59 11:59 23:59 Intake Total 810 / 2630 800 / 820 20 / 820 Output Total 1175 / 3725 1650 / 1650 Balance -365 / -1095 -850 / -830 20 / -830 Weight 67.585 kg Intake: IV 410 / 1510 310 / 330 20 / 330 Oral 400 / 1120 490 / 490 Output: Urine 1175 / 3725 1650 / 1650 Other: Urine Color Yellow Light Vandana Dark Vandana Urine Appearance Clear Clear Urine Odor None None Laboratory Results WBC 17.57 k/cumm (4.4-10.8) H D 12/28/19 06:10 RBC 3.66 m/cumm (4.50-6.00) L 12/28/19 06:10 Hgb 10.2 g/dL (13.5-17.5) L 12/28/19 06:10 Hct 31.2 % (40.0-50.0) L 12/28/19 06:10 MCV 85.2 fL (80-95) 12/28/19 06:10 MCH 27.9 pg (27.0-33.0) 12/28/19 06:10 MCHC 32.7 g/dL (32.0-36.0) 12/28/19 06:10 RDW 18.3 % (11.8-14.1) H 12/28/19 06:10 Plt Count 308 x1000/uL (130-400) 12/28/19 06:10 MPV 9.6 fL (8.0-11.0) 12/28/19 06:10 Immature Gran % 0.0 % 12/28/19 06:10 Neutrophils % 75.0 12/28/19 06:10 Band Neutrophils % 3.0 % 12/27/19 06:05 Lymphocytes % 17.0 12/28/19 06:10 Atypical Lymphs % 0 12/24/19 14:30 Monocytes % 7.0 12/28/19 06:10 Eosinophils % 1.0 12/28/19 06:10 Basophils % 0.0 12/28/19 06:10 Myelocytes % 1.0 % 12/27/19 06:05 Absolute Neutrophils 13.18 k/cumm (1.2-6.7) H 12/28/19 06:10 Absolute Lymphocytes 2.99 k/cumm (1.2-3.4) 12/28/19 06:10 Absolute Monocytes 1.23 k/cumm (0.11-0.7) H 12/28/19 06:10 Absolute Eosinophils 0.18 k/cumm (0.0-0.7) 12/28/19 06:10 Absolute Basophils 0.00 k/cumm (0.0-0.2) 12/28/19 06:10 Differential Comment Manual differential 12/28/19 06:10 RBC Morphology See below 12/28/19 06:10 Polychromasia Present 12/27/19 06:05 Hypochromasia 1+ 12/26/19 06:40 Poikilocytosis 1+ 12/27/19 06:05 Anisocytosis 1+ 12/28/19 06:10 Macrocytosis 1+ 12/26/19 06:40 PT 10.8 sec (9.3-11.0) 12/24/19 14:30 INR 1.1 (0.9-1.1) 12/24/19 14:30 APTT 37.9 sec (21.0-31.4) H 12/24/19 14:30 Sodium 141 mmol/L (136-145) 12/28/19 06:10 Potassium 3.8 mmol/L (3.5-5.1) 12/28/19 06:10 Chloride 104 mmol/L (98-107) 12/28/19 06:10 Carbon Dioxide 31.6 mmol/L (21.0-32.0) 12/28/19 06:10 Anion Gap 5.4 mmol/L (3-11) 12/28/19 06:10 BUN 18 mg/dL (7-18) 12/28/19 06:10 Creatinine 0.91 mg/dL (0.70-1.30) 12/28/19 06:10 Estimated GFR/1.73 m2 >= 60.00 (mL/min/1.73m2) 12/28/19 06:10 Glucose 183 mg/dL (74-106) H 12/28/19 06:10 Lactate 1.4 mmol/L (0.6-1.4) 12/27/19 06:05 Calcium 9.0 mg/dL (8.5-10.1) 12/28/19 06:10 Magnesium 1.6 mg/dL (1.8-2.4) L 12/28/19 06:10 Total Bilirubin 0.4 mg/dL (0.2-1.0) 12/24/19 14:30 AST 13 U/L (15-37) L 12/24/19 14:30 ALT 22 U/L (16-63) 12/24/19 14:30 Alkaline Phosphatase 85 U/L (46-116) 12/24/19 14:30 Troponin I < 0.05 ng/Ml (<0.06) 12/25/19 00:50 C-Reactive Protein 2.80 mg/dL (0.0-0.3) H 12/28/19 06:10 NT-Pro-B Natriuret Pep 316 pg/mL (<300) H 12/24/19 14:30 Total Protein 7.6 g/dL (6.4-8.2) 12/24/19 14:30 Albumin 3.8 g/dL (3.4-5.0) 12/24/19 14:30 Procalcitonin 3.5 ng/mL 12/26/19 06:40 TSH 0.69 uIU/mL (0.36-3.74) 12/25/19 06:50 Vancomycin Trough 8.3 ug/mL (10.0-20.0) L 12/27/19 15:55 Coronavirus (PCR) Cancelled 12/25/19 15:24
[2019-12-28 15:08] LABS: Streptococcus Pneumoniae Ag, U Negative (Negative)
[2019-12-28] MEDS: Polyethylene Glycol 3350 17 GM PACKET PO (20:21)
[2019-12-28 20:44] LABS: COVID-19 RT-PCR Result Not Detected (NotDetected)
[2019-12-28] MEDS: Simvastatin 20 MG TAB PO (21:16)
[2019-12-29] VITALS (7 sets, daily range): BP systolic 123–170; BP diastolic 74–95; PULSE 81–85; RESP 5–20; TEMP 36.1–36.8; O2SAT 95–96
--- NOTE | 2019-12-29 02:08 | NUR.NOTE ---
Nursing Note: 0147H 12/29/2019 Patient transferred to Med/surg floor Rm 228 from RICU. Room's reverse isolation activated. Mask and gown placed on patient prior to transport. Transferred to bed safely. VSS. Placed on airborne precautions.
[2019-12-29] MEDS: Normal Saline 500 ML 30 ML IV (04:13)
[2019-12-29] MEDS: Normal Saline Flush 10 ML SYR IVP ×3 (04:13→23:59)
[2019-12-29] MEDS: Albuterol/Ipratropium 3 ML UPD VIAL UPD ×4 (05:53→23:57)
[2019-12-29] MEDS: Insulin Aspart 300 UNITS/3 ML PEN SC ×3 (08:21→17:09)
[2019-12-29] MEDS: Magnesium Chloride 64 MG TABCR PO ×2 (08:22→20:14)
[2019-12-29] MEDS: Ferrous Gluconate 324 MG TAB PO (08:22)
[2019-12-29] MEDS: Docusate Sodium 100 MG CAP PO (08:22)
[2019-12-29] MEDS: Apixaban 5 MG TAB PO ×2 (08:22→20:14)
[2019-12-29] MEDS: buPROPion-XL 150 MG TABCR 300 MG PO (08:22)
[2019-12-29] MEDS: predniSONE 20 MG TAB PO (08:22)
[2019-12-29] MEDS: Multivitamin TAB 1 TAB PO (08:22)
[2019-12-29] MEDS: Folic Acid 1 MG TAB PO (08:23)
[2019-12-29] MEDS: Cyanocobalamin 500 MCG TAB 1000 MCG PO (08:23)
[2019-12-29] MEDS: Mometasone 220 MCG 14 DOSE INHALER 2 PUFF IH ×2 (08:23→20:15)
[2019-12-29] MEDS: Pantoprazole 40 MG TABCR PO ×2 (08:23→20:14)
[2019-12-29 08:59] LABS: Abs Immature Grans 0.97 k/cumm (0.0-0.09); HCT 31.6 % (40.0-50.0); HGB 10.1 g/dL (13.5-17.5); Mean Corpuscular Hemoglobin 27.7 pg (27.0-33.0); Mean Corpuscular Volume 86.6 fL (80-95); Mean Platelet Volume 10.1 fL (8.0-11.0); Platelet Count 343 x1000/uL (130-400); RBC 3.65 m/cumm (4.50-6.00); White Blood Cell Count 15.67 k/cumm (4.4-10.8)
[2019-12-29 09:39] LABS: Procalcitonin 0.3 ng/mL
[2019-12-29 09:45] LABS: Absolute Lymphocyte Count 2.66 k/cumm (1.2-3.4); Absolute Monocyte Count 1.25 k/cumm (0.11-0.7); Absolute Neutrophil Count 10.19 k/cumm (1.2-6.7)
[2019-12-29 09:46] LABS: Absolute Eosinophil Count 0.16 k/cumm (0.0-0.7)
[2019-12-29 11:22] LABS: Anion Gap 9.1 mmol/L (3-11); BUN 23 mg/dL (7-18); C-Reactive Protein 1.77 mg/dL (0.0-0.3); CO2 28.9 mmol/L (21.0-32.0); CREATININE 0.92 mg/dL (0.70-1.30); Calcium 8.8 mg/dL (8.5-10.1); Chloride 103 mmol/L (98-107); Glucose 189 mg/dL (74-106); Magnesium 2.1 mg/dL (1.8-2.4); Sodium 141 mmol/L (136-145)
--- NOTE | 2019-12-29 17:10 | PDOC.CMIN ---
- If Service Date Differs Date of service: 12/29/19 Time of Service: 11:00 Care Management Initial Assess REASON FOR HOSPITALIZATION:: Pneumonia, [place], Lactic Acidosis PAST MEDICAL HISTORY/PAST SURGICAL HISTORY:: Acute thrombosis of right basilic vein, complication associated with perpherally inserted central catheter (PICC), COPD, DM2, GERD, schizophrenia, CVA, hypertension, oropharyngeal dysphagia, PE, schizo affective schizophrenia. PREVIOUS FUNCTIONAL STATUS/SOCIAL/FAMILY SUPPORTS:: Koko resides at [facility]. His mental health services are managed by [facility] and the [facility] [employer] [facility] program. He states he is independent with some ADL?s and does not use ambulatory aids. He is dependent on [place] for medication management, transportation, and meals. CURRENT FUNCTIONAL STATUS:: Awaiting COVID 19 testing (had to be repeated yesterday). ADVANCE DIRECTIVES:: On file at [facility]; Sarai De La Fuente as agent. Annette Marrero as alternate. Has patient been provided with information about the portal?: No Did the patient sign up for the portal?: No CODE STATUS:: DNR/DNI INSURANCE COVERAGE / FINANCIAL ISSUES:: Medicare. Medicaid CURRENT HOME/COMMUNITY SERVICES/EQUIPMENT:: [facility], [facility]. PRIMARY CARE PHYSICIAN:: Vinnie Black POTENTIAL DISCHARGE NEEDS:: Follow up with PCP, evaluation for further needs. PATIENT/FAMILY EDUCATION NEEDS:: Review of discharge instructions, discuss Ask Me Three. ANTICIPATED BARRIERS TO DISCHARGE:: None identified. TRANSPORTATION:: TBD by disposition. Return to [place]; [facility] or [facility]. PLAN:: Elias continues to be closely monitored. He R/O for Covid but there is some question to exposure. Await COVID 19 testing (had to be repeated yesterday). May have to repeat imaging per MD. CM continues to follow.
--- NOTE | 2019-12-29 18:03 | PGE_ITS ---
Date of Service Date of service: 12/29/19 Time of Service: 18:03 Assessment and Plan Assessment and plan (1) Pneumonia: Status: Acute Assessment and plan: Continue oxacillin 2 g IV every 4 hours along with aerosolized bronchodilators. Check results of his repeat coronavirus Qualifiers: Pneumonia type: due to unspecified organism Laterality: right Lung location: lower lobe of lung Qualified Code(s): J18.9 - Pneumonia, unspecified organism (2) MSSA bacteremia: Status: Acute Assessment and plan: Continue oxacillin 2 g IV every 4 hours. Echocardiogram is pending repeat COVID testing (3) Schizo affective schizophrenia: Status: Chronic Assessment and plan: Continue his home medications (4) Non-insulin dependent type 2 diabetes mellitus: Status: Chronic Assessment and plan: Add Lantus and adjust his NovoLog sliding scale. Cover his prednisone with NPH (5) Hypertension: Status: Chronic Assessment and plan: We will add Norvasc to his regimen Qualifiers: Hypertension type: essential hypertension Qualified Code(s): I10 - Essential (primary) hypertension (6) GERD (gastroesophageal reflux disease): Status: Chronic Assessment and plan: Continue his home Protonix twice a day Qualifiers: Esophagitis presence: esophagitis presence not specified Qualified Code(s): K21.9 - Gastro-esophageal reflux disease without esophagitis Subjective Subjective Patient reports: feels better; denies nausea and shortness of breath Interval history since last seen: Patient states that his cough is improved. It is minimally productive. He remains afebrile. He is currently receiving treatment for MSSA bacteremia and pneumonia. He is on oxacillin 2 g IV every 4 hours. Leukocytosis is improving down to 15,000. Blood sugars and blood pressures are poorly controlled. Blood pressure is elevated 170/95 this afternoon up from 144/82 this morning. Glucose is 329 this afternoon. It was 256 at lunchtime and 213 at breakfast. He is currently on sensitive scale NovoLog along but not receiving any Lantus. He formally had been on pioglitazone and metformin.-Increase his NovoLog sliding scale to resistant level and add 10 units of Lantus at night. Furthermore he should receive NPH with his prednisone. Patient is currently coronavirus negative but because of some possible cross-contamination while he was in the respiratory ICU he needs to be ruled out again and therefore he is in negative airflow room in [facility]. Exam Narrative Exam Narrative: Alert and oriented person place time circumstance. Lungs with coarse rhonchi and wheezes over the right lower and midlung field. Few crackles at the left lung base upper hernandez on the left are clear. Heart regular rate and rhythm. Abdomen soft and nontender. Objective Objective Clinical Data: Abnormal lab results 12/29/19 12/29/19 Range/Units 08:40 08:40 WBC 15.67 H (4.4-10.8) k/cumm RBC 3.65 L (4.50-6.00) m/cumm Hgb 10.1 L (13.5-17.5) g/dL Hct 31.6 L (40.0-50.0) % RDW 18.0 H (11.8-14.1) % Absolute Neutrophils 10.19 H (1.2-6.7) k/cumm Absolute Monocytes 1.25 H (0.11-0.7) k/cumm BUN 23 H (7-18) mg/dL Glucose 189 H (74-106) mg/dL C-Reactive Protein 1.77 H (0.0-0.3) mg/dL Vital Signs Temperature 36.7 C 12/29/19 15:56 Temperature Source Tympanic 12/29/19 15:56 Pulse 82 12/29/19 15:56 Pulse Rhythm Regular 12/29/19 15:58 Respiratory Rate 18 12/29/19 15:56 Respiratory Effort 12/29/19 15:58 Respiratory Depth Normal 12/29/19 15:58 Respiratory Pattern Normal 12/29/19 15:58 Blood Pressure 170/95 H 12/29/19 15:56 Blood Pressure Mean 93 12/24/19 19:50 Blood Pressure Position Supine 12/25/19 07:40 Pulse Oximetry 96 12/29/19 15:56 Oxygen Delivery Method OxyMask 12/29/19 15:56 Oxygen Flow Rate 4 12/29/19 15:56 Fraction of Inspired Oxygen (FIO2) 93 12/28/19 17:48 Pain Level 0 12/29/19 15:56 Comment 12/27/19 00:41 Intake & Output 12/28/19 12/29/19 12/29/19 23:59 11:59 23:59 Intake Total 410 / 1710 252 / 912 660 / 912 Output Total 1175 / 2825 1650 / 1650 Balance -765 / -1115 252 / -738 -990 / -738 Intake: IV 170 / 980 132 / 182 50 / 182 Oral 240 / 730 120 / 730 610 / 730 Output: Urine 1175 / 2825 1650 / 1650 Other: Urine Color Yellow Yellow Urine Appearance Clear Clear Clear Urine Odor None Comment Unable to note odor d/t PAPR castaneda. total from 3 Voids this shift Voiding Methods Urinal Urinal Laboratory Results WBC 15.67 k/cumm (4.4-10.8) H 12/29/19 08:40 RBC 3.65 m/cumm (4.50-6.00) L 12/29/19 08:40 Hgb 10.1 g/dL (13.5-17.5) L 12/29/19 08:40 Hct 31.6 % (40.0-50.0) L 12/29/19 08:40 MCV 86.6 fL (80-95) 12/29/19 08:40 MCH 27.7 pg (27.0-33.0) 12/29/19 08:40 MCHC 32.0 g/dL (32.0-36.0) 12/29/19 08:40 RDW 18.0 % (11.8-14.1) H 12/29/19 08:40 Plt Count 343 x1000/uL (130-400) 12/29/19 08:40 MPV 10.1 fL (8.0-11.0) 12/29/19 08:40 Immature Gran % See Differential 12/29/19 08:40 Neutrophils % 65.0 12/29/19 08:40 Band Neutrophils % 3.0 % 12/27/19 06:05 Lymphocytes % 17.0 12/29/19 08:40 Atypical Lymphs % 0 12/24/19 14:30 Monocytes % 8.0 12/29/19 08:40 Eosinophils % 1.0 12/29/19 08:40 Basophils % 0.0 12/29/19 08:40 Metamyelocytes % 3.0 % 12/29/19 08:40 Myelocytes % 6.0 % 12/29/19 08:40 Absolute Neutrophils 10.19 k/cumm (1.2-6.7) H 12/29/19 08:40 Absolute Lymphocytes 2.66 k/cumm (1.2-3.4) 12/29/19 08:40 Absolute Monocytes 1.25 k/cumm (0.11-0.7) H 12/29/19 08:40 Absolute Eosinophils 0.16 k/cumm (0.0-0.7) 12/29/19 08:40 Absolute Basophils 0.00 k/cumm (0.0-0.2) 12/29/19 08:40 Differential Comment Manual differential 12/28/19 06:10 RBC Morphology See below 12/28/19 06:10 Polychromasia Present 12/27/19 06:05 Hypochromasia 1+ 12/26/19 06:40 Poikilocytosis 1+ 12/27/19 06:05 Anisocytosis 1+ 12/28/19 06:10 Macrocytosis 1+ 12/26/19 06:40 PT 10.8 sec (9.3-11.0) 12/24/19 14:30 INR 1.1 (0.9-1.1) 12/24/19 14:30 APTT 37.9 sec (21.0-31.4) H 12/24/19 14:30 Sodium 141 mmol/L (136-145) 12/29/19 08:40 Potassium 4.0 mmol/L (3.5-5.1) 12/29/19 08:40 Chloride 103 mmol/L (98-107) 12/29/19 08:40 Carbon Dioxide 28.9 mmol/L (21.0-32.0) 12/29/19 08:40 Anion Gap 9.1 mmol/L (3-11) 12/29/19 08:40 BUN 23 mg/dL (7-18) H 12/29/19 08:40 Creatinine 0.92 mg/dL (0.70-1.30) 12/29/19 08:40 Estimated GFR/1.73 m2 >= 60.00 (mL/min/1.73m2) 12/29/19 08:40 Glucose 189 mg/dL (74-106) H 12/29/19 08:40 Lactate 1.4 mmol/L (0.6-1.4) 12/27/19 06:05 Calcium 8.8 mg/dL (8.5-10.1) 12/29/19 08:40 Magnesium 2.1 mg/dL (1.8-2.4) 12/29/19 08:40 Total Bilirubin 0.4 mg/dL (0.2-1.0) 12/24/19 14:30 AST 13 U/L (15-37) L 12/24/19 14:30 ALT 22 U/L (16-63) 12/24/19 14:30 Alkaline Phosphatase 85 U/L (46-116) 12/24/19 14:30 Troponin I < 0.05 ng/Ml (<0.06) 12/25/19 00:50 C-Reactive Protein 1.77 mg/dL (0.0-0.3) H 12/29/19 08:40 NT-Pro-B Natriuret Pep 316 pg/mL (<300) H 12/24/19 14:30 Total Protein 7.6 g/dL (6.4-8.2) 12/24/19 14:30 Albumin 3.8 g/dL (3.4-5.0) 12/24/19 14:30 Procalcitonin 0.3 ng/mL 12/29/19 08:40 TSH 0.69 uIU/mL (0.36-3.74) 12/25/19 06:50 Vancomycin Trough 8.3 ug/mL (10.0-20.0) L 12/27/19 15:55 Coronavirus (PCR) Not detected (NotDetected) 12/27/19 16:17 Ur Strep pneumoniae Ag Negative (Negative) 12/27/19 00:42
[2019-12-29] MEDS: Simvastatin 20 MG TAB PO (22:07)
[2019-12-29] MEDS: Insulin Glargine 300 UNITS/3 ML PEN 10 UNITS SC (23:18)
[2019-12-30] MEDS: Albuterol/Ipratropium 3 ML UPD VIAL UPD ×3 (05:06→18:29)
[2019-12-30] MEDS: Milk of Magnesia 30 ML CUP PO (05:37)
[2019-12-30] MEDS: Docusate Sodium 100 MG CAP PO ×2 (05:37→08:09)
[2019-12-30] MEDS: Insulin Aspart 300 UNITS/3 ML PEN SC ×3 (08:06→16:51)
[2019-12-30] MEDS: Normal Saline Flush 10 ML SYR IVP (08:07)
[2019-12-30] MEDS: Insulin NPH-Human 300 UNITS/3 ML PEN 10 UNIT SC (08:08)
[2019-12-30] MEDS: Multivitamin TAB 1 TAB PO (08:09)
[2019-12-30] MEDS: buPROPion-XL 150 MG TABCR 300 MG PO (08:09)
[2019-12-30] MEDS: predniSONE 20 MG TAB PO (08:09)
[2019-12-30] MEDS: Magnesium Chloride 64 MG TABCR PO ×2 (08:09→20:31)
[2019-12-30] MEDS: Folic Acid 1 MG TAB PO (08:09)
[2019-12-30] MEDS: Apixaban 5 MG TAB PO ×2 (08:09→20:30)
[2019-12-30] MEDS: Cyanocobalamin 500 MCG TAB 1000 MCG PO (08:09)
[2019-12-30] MEDS: Pantoprazole 40 MG TABCR PO ×2 (08:09→20:30)
[2019-12-30] MEDS: Mometasone 220 MCG 14 DOSE INHALER 2 PUFF IH ×2 (08:10→20:31)
[2019-12-30 08:32] VITALS: O2SAT 83
[2019-12-30 08:34] VITALS: BP 110/67; PULSE 97; RESP 17; TEMP 35.5; O2SAT 92
[2019-12-30 08:52] LABS: Abs Immature Grans 1.15 k/cumm (0.0-0.09); HCT 33.8 % (40.0-50.0); HGB 11.1 g/dL (13.5-17.5); Mean Corp. HGB Concentration 32.8 g/dL (32.0-36.0); Mean Corpuscular Hemoglobin 28.5 pg (27.0-33.0); Mean Corpuscular Volume 86.7 fL (80-95); Platelet Count 368 x1000/uL (130-400); RBC Distribution Width 17.8 % (11.8-14.1); White Blood Cell Count 20.86 k/cumm (4.4-10.8)
[2019-12-30 09:12] LABS: Anion Gap 7.2 mmol/L (3-11); BUN 23 mg/dL (7-18); CO2 30.8 mmol/L (21.0-32.0); CREATININE 1.07 mg/dL (0.70-1.30); Calcium 9.3 mg/dL (8.5-10.1); Chloride 103 mmol/L (98-107); Glucose 204 mg/dL (74-106); Potassium 3.7 mmol/L (3.5-5.1); Sodium 141 mmol/L (136-145)
[2019-12-30 09:14] LABS: C-Reactive Protein 1.19 mg/dL (0.0-0.3)
[2019-12-30 09:16] LABS: Absolute Eosinophil Count 0.63 k/cumm (0.0-0.7); Absolute Lymphocyte Count 3.75 k/cumm (1.2-3.4); Absolute Monocyte Count 1.67 k/cumm (0.11-0.7); Absolute Neutrophil Count 14.18 k/cumm (1.2-6.7)
[2019-12-30 09:17] LABS: Diff Comment Manual Differential
[2019-12-30 09:18] LABS: Poikilocytes 1+; Polychromasia Present
--- NOTE | 2019-12-30 10:46 | PDOC.CMPRO ---
Care Management Progress Note S/O: Clement remains on precautions awaiting COVID-19 test results. Plan remains for Clement to return to [place] when medically ready. CM continues to follow. A: 64 year old male admitted to [facility] 12/24/19 for Pneumonia, [place], Lactic Acidosis P: Elias continues to be closely monitored. He R/O for Covid but there is some question to exposure. Awaiting COVID 19 re-testing (repeated 12/27). May have to repeat imaging per MD. CM continues to follow.
[2019-12-30 11:41] VITALS: RESP 7
[2019-12-30] MEDS: Bisacodyl 10 MG SUPP PR (11:41)
[2019-12-30] MEDS: Ferrous Gluconate 324 MG TAB PO (11:41)
[2019-12-30] MEDS: Magnesium Citrate 300 ML BTL PO (11:43)
--- NOTE | 2019-12-30 14:12 | PGE_ITS ---
Date of Service Date of service: 12/30/19 Time of Service: 14:12 Assessment and Plan Assessment and plan (1) Pneumonia: Status: Acute Assessment and plan: Discontinue oxacillin in favor of vancomycin. Continue with aerosolized bronchodilators. Patient still has a significant FiO2 requirement. He is on a oxygen mask at 3 to 5 L/min. Check the results of his repeat coronavirus PCR test. Qualifiers: Pneumonia type: due to unspecified organism Laterality: right Lung location: lower lobe of lung Qualified Code(s): J18.9 - Pneumonia, unspecified organism (2) MSSA bacteremia: Status: Acute Assessment and plan: Changes antibiotics to vancomycin. I have a discussion with [facility] ID department tomorrow to discuss optimal treatment. Echocardiogram is pending repeat COVID testing. Transthoracic echocardiogram is pending his repeat COVID testing (3) Schizo affective schizophrenia: Status: Chronic Assessment and plan: Continue his home medications (4) Non-insulin dependent type 2 diabetes mellitus: Status: Chronic Assessment and plan: Add Lantus and adjust his NovoLog sliding scale. Cover his prednisone with NPH. Overall his blood sugars are modestly improved. He has been running between 212-278 today. He has had no readings in the 300s. (5) Hypertension: Status: Chronic Assessment and plan: We \havel added Norvasc to his regimen. Blood pressures are improved since Norvasc was added yesterday. Qualifiers: Hypertension type: essential hypertension Qualified Code(s): I10 - Essential (primary) hypertension (6) GERD (gastroesophageal reflux disease): Status: Chronic Assessment and plan: Continue his home Protonix twice a day Qualifiers: Esophagitis presence: esophagitis presence not specified Qualified Code(s): K21.9 - Gastro-esophageal reflux disease without esophagitis (7) DVT prophylaxis: Status: Acute Assessment and plan: Continue home dose of apixaban (8) Discharge planning issues: Status: Acute Assessment and plan: Patient will return to [facility] upon confirmation of repeat negative coronavirus testing. However his discharge may be delayed to complete IV antibiotic treatment for MSSA bacteremia. Subjective Subjective Interval history since last seen: Overall Clement says he feels better. He denies any shortness of breath or chest pain. However he still not had a bowel movement but denies any abdominal pain or nausea or vomiting. Nursing staff gave him a Dulcolax suppository and magnesium citrate to try to get his bowels going. We are still waiting repeat coronavirus PCR testing. His initial test was negative however due to inadvertent exposure while in the RICU to another patient who has COVID-19, Mr. Estevez must remain in reverse airflow room until his repeat coronavirus PCR is negative x2 specimens. I received a call today from [facility] laboratory questioning why the patient had sequential testing 2 days in a row when his initial testing was negative. I explained his situation to them. Personally I think is too early to retest him since his exposure occurred day before yesterday. I think if yesterday's test and today's test comes back negative I will check him 1 more time in 3 to 5 days. If that remains negative then I think he can be taken out of reverse airflow precaution and once his pneumonia is under control he can be discharged to complete his antibiotic treatment. However he did have positive blood cultures for MSSA which I think is going to take some prolonged treatment. His repeat blood cultures from December 28, 2019 came back no growth. His original cultures from December 26, 2019 grew staph aureus that was sensitive to oxacillin. Dr. Matos discontinued his vancomycin and put him on oxacillin and although overall he is doing reasonably well his leukocyte count is rising. His initial WBCs on admission were 36,000 and summer to 41,000 and then gradually declined to 17,000 but since that time has risen to 20,000. There seems to be a temporal relationship between when his vancomycin was discontinued and oxacillin was started with the recent rise in his leukocyte count. He was on vancomycin and cefepime for December 23, 2021 December 27, 2019. Oxacillin was started December 28, 2019. His leukocyte count began to climb after the vancomycin was discontinued and the oxacillin was started. Exam Narrative Exam Narrative: Elderly gentleman who is alert and oriented person place time circumstance. He is quite talkative in no respiratory distress whatsoever. Lungs reveal coarse bilateral wheezes and rhonchi with focalized rales at the right lung base. He also has markedly diminished breath sounds at the right lung base. Heart is regular rate and rhythm Abdomen is distended but soft nontender without guarding with active bowel sounds. Extremities without peripheral cyanosis or edema Objective Objective Clinical Data: Abnormal lab results 12/30/19 12/30/19 12/30/19 Range/Units 08:35 08:35 08:35 WBC 20.86 H D (4.4-10.8) k/cumm RBC 3.90 L (4.50-6.00) m/cumm Hgb 11.1 L (13.5-17.5) g/dL Hct 33.8 L (40.0-50.0) % RDW 17.8 H (11.8-14.1) % Absolute Neutrophils 14.18 H (1.2-6.7) k/cumm Absolute Lymphocytes 3.75 H (1.2-3.4) k/cumm Absolute Monocytes 1.67 H (0.11-0.7) k/cumm BUN 23 H (7-18) mg/dL Glucose 204 H (74-106) mg/dL C-Reactive Protein 1.19 H (0.0-0.3) mg/dL Vital Signs Temperature 35.5 C L 12/30/19 08:34 Temperature Source Tympanic 12/30/19 08:34 Pulse 97 H 12/30/19 08:34 Pulse Rhythm Regular 12/30/19 10:36 Respiratory Rate 17 12/30/19 08:34 Respiratory Effort Non-Labored 12/30/19 10:36 Respiratory Depth Normal 12/30/19 10:36 Respiratory Pattern Normal 12/30/19 10:36 Blood Pressure 110/67 12/30/19 08:34 Blood Pressure Mean 93 12/24/19 19:50 Blood Pressure Position Supine 12/25/19 07:40 Pulse Oximetry 92 L 12/30/19 08:34 Oxygen Delivery Method OxyMask 12/30/19 08:34 Oxygen Flow Rate 5 12/30/19 08:34 Fraction of Inspired Oxygen (FIO2) 93 12/28/19 17:48 Pain Level 0 12/30/19 08:34 Comment 12/27/19 00:41 Intake & Output 12/29/19 12/30/19 12/30/19 23:59 11:59 23:59 Intake Total 760 / 1012 510 / 510 Output Total 2150 / 2500 1250 / 1250 Balance -1390 / -1488 -740 / -740 Intake: IV 150 / 282 150 / 150 Oral 610 / 730 360 / 360 Output: Urine 2150 / 2500 1250 / 1250 Other: Urine Color Yellow Pale Yellow Urine Appearance Clear Clear Urine Odor Normal Comment total from 3 Voids this shift Voiding Methods Urinal Urinal Laboratory Results WBC 20.86 k/cumm (4.4-10.8) H D 12/30/19 08:35 RBC 3.90 m/cumm (4.50-6.00) L 12/30/19 08:35 Hgb 11.1 g/dL (13.5-17.5) L 12/30/19 08:35 Hct 33.8 % (40.0-50.0) L 12/30/19 08:35 MCV 86.7 fL (80-95) 12/30/19 08:35 MCH 28.5 pg (27.0-33.0) 12/30/19 08:35 MCHC 32.8 g/dL (32.0-36.0) 12/30/19 08:35 RDW 17.8 % (11.8-14.1) H 12/30/19 08:35 Plt Count 368 x1000/uL (130-400) 12/30/19 08:35 MPV 10.0 fL (8.0-11.0) 12/30/19 08:35 Immature Gran % See Differential 12/30/19 08:35 Neutrophils % 68.0 12/30/19 08:35 Band Neutrophils % 3.0 % 12/27/19 06:05 Lymphocytes % 18.0 12/30/19 08:35 Atypical Lymphs % 0 12/24/19 14:30 Monocytes % 8.0 12/30/19 08:35 Eosinophils % 3.0 12/30/19 08:35 Basophils % 0.0 12/30/19 08:35 Metamyelocytes % 2.0 % 12/30/19 08:35 Myelocytes % 1.0 % 12/30/19 08:35 Absolute Neutrophils 14.18 k/cumm (1.2-6.7) H 12/30/19 08:35 Absolute Lymphocytes 3.75 k/cumm (1.2-3.4) H 12/30/19 08:35 Absolute Monocytes 1.67 k/cumm (0.11-0.7) H 12/30/19 08:35 Absolute Eosinophils 0.63 k/cumm (0.0-0.7) 12/30/19 08:35 Absolute Basophils 0.00 k/cumm (0.0-0.2) 12/30/19 08:35 Differential Comment Manual differential 12/30/19 08:35 RBC Morphology See below 12/30/19 08:35 Polychromasia Present 12/30/19 08:35 Hypochromasia 1+ 12/26/19 06:40 Poikilocytosis 1+ 12/30/19 08:35 Anisocytosis 1+ 12/28/19 06:10 Macrocytosis 1+ 12/26/19 06:40 PT 10.8 sec (9.3-11.0) 12/24/19 14:30 INR 1.1 (0.9-1.1) 12/24/19 14:30 APTT 37.9 sec (21.0-31.4) H 12/24/19 14:30 Sodium 141 mmol/L (136-145) 12/30/19 08:35 Potassium 3.7 mmol/L (3.5-5.1) 12/30/19 08:35 Chloride 103 mmol/L (98-107) 12/30/19 08:35 Carbon Dioxide 30.8 mmol/L (21.0-32.0) 12/30/19 08:35 Anion Gap 7.2 mmol/L (3-11) 12/30/19 08:35 BUN 23 mg/dL (7-18) H 12/30/19 08:35 Creatinine 1.07 mg/dL (0.70-1.30) 12/30/19 08:35 Estimated GFR/1.73 m2 >= 60.00 (mL/min/1.73m2) 12/30/19 08:35 Glucose 204 mg/dL (74-106) H 12/30/19 08:35 Lactate 1.4 mmol/L (0.6-1.4) 12/27/19 06:05 Calcium 9.3 mg/dL (8.5-10.1) 12/30/19 08:35 Magnesium 2.1 mg/dL (1.8-2.4) 12/29/19 08:40 Total Bilirubin 0.4 mg/dL (0.2-1.0) 12/24/19 14:30 AST 13 U/L (15-37) L 12/24/19 14:30 ALT 22 U/L (16-63) 12/24/19 14:30 Alkaline Phosphatase 85 U/L (46-116) 12/24/19 14:30 Troponin I < 0.05 ng/Ml (<0.06) 12/25/19 00:50 C-Reactive Protein 1.19 mg/dL (0.0-0.3) H 12/30/19 08:35 NT-Pro-B Natriuret Pep 316 pg/mL (<300) H 12/24/19 14:30 Total Protein 7.6 g/dL (6.4-8.2) 12/24/19 14:30 Albumin 3.8 g/dL (3.4-5.0) 12/24/19 14:30 Procalcitonin 0.3 ng/mL 12/29/19 08:40 TSH 0.69 uIU/mL (0.36-3.74) 12/25/19 06:50 Vancomycin Trough 8.3 ug/mL (10.0-20.0) L 12/27/19 15:55 Coronavirus (PCR) Not detected (NotDetected) 12/27/19 16:17 Ur Strep pneumoniae Ag Negative (Negative) 12/27/19 00:42
[2019-12-30 16:40] VITALS: BP 134/81; PULSE 81; RESP 18; TEMP 36.7; O2SAT 97
[2019-12-30] MEDS: Simvastatin 20 MG TAB PO (22:40)
[2019-12-30] MEDS: Insulin Glargine 300 UNITS/3 ML PEN 10 UNITS SC (22:44)
[2019-12-30 22:50] VITALS: BP 133/80; PULSE 74; RESP 18; TEMP 36.3; O2SAT 91
[2019-12-31] VITALS (7 sets, daily range): BP systolic 108–138; BP diastolic 71–85; PULSE 70–85; RESP 2–18; TEMP 36–36.2; O2SAT 85–97
[2019-12-31] MEDS: Albuterol/Ipratropium 3 ML UPD VIAL UPD ×5 (00:17→23:52)
[2019-12-31] MEDS: VANCOMYCIN 1,000 MG in Normal Saline 250 ML 166.667 ML IV (02:06)
[2019-12-31] MEDS: Normal Saline Flush 10 ML SYR IVP ×2 (02:08→21:45)
[2019-12-31 07:22] LABS: Abs Immature Grans 1.02 k/cumm (0.0-0.09); HCT 31.1 % (40.0-50.0); Mean Corp. HGB Concentration 32.2 g/dL (32.0-36.0); Mean Corpuscular Hemoglobin 28.2 pg (27.0-33.0); Mean Corpuscular Volume 87.9 fL (80-95); Mean Platelet Volume 9.9 fL (8.0-11.0); Platelet Count 356 x1000/uL (130-400); RBC 3.54 m/cumm (4.50-6.00); RBC Distribution Width 17.7 % (11.8-14.1)
[2019-12-31 07:44] LABS: Anion Gap 5.8 mmol/L (3-11); BUN 21 mg/dL (7-18); CO2 30.2 mmol/L (21.0-32.0); CREATININE 0.88 mg/dL (0.70-1.30); Calcium 8.9 mg/dL (8.5-10.1); Chloride 105 mmol/L (98-107); Glucose 144 mg/dL (74-106); Potassium 4.2 mmol/L (3.5-5.1); Sodium 141 mmol/L (136-145)
[2019-12-31 07:47] LABS: C-Reactive Protein 0.98 mg/dL (0.0-0.3)
[2019-12-31 07:49] LABS: Absolute Lymphocyte Count 3.49 k/cumm (1.2-3.4); Absolute Neutrophil Count 13.74 k/cumm (1.2-6.7)
[2019-12-31 07:50] LABS: Absolute Eosinophil Count 0.82 k/cumm (0.0-0.7); Absolute Monocyte Count 1.64 k/cumm (0.11-0.7); Diff Comment Manual Differential
[2019-12-31 07:52] LABS: Hypochromasia 1+; Poikilocytes 1+
[2019-12-31] MEDS: Magnesium Chloride 64 MG TABCR PO ×2 (08:50→20:52)
[2019-12-31] MEDS: Docusate Sodium 100 MG CAP PO (08:50)
[2019-12-31] MEDS: predniSONE 20 MG TAB PO (08:50)
[2019-12-31] MEDS: Multivitamin TAB 1 TAB PO (08:50)
[2019-12-31] MEDS: Apixaban 5 MG TAB PO ×2 (08:50→20:52)
[2019-12-31] MEDS: Pantoprazole 40 MG TABCR PO ×2 (08:50→20:52)
[2019-12-31] MEDS: buPROPion-XL 150 MG TABCR 300 MG PO (08:50)
[2019-12-31] MEDS: Insulin NPH-Human 300 UNITS/3 ML PEN 10 UNIT SC (08:51)
[2019-12-31] MEDS: Mometasone 220 MCG 14 DOSE INHALER 2 PUFF IH ×2 (08:51→20:55)
[2019-12-31] MEDS: Folic Acid 1 MG TAB PO (08:51)
[2019-12-31] MEDS: Cyanocobalamin 500 MCG TAB 1000 MCG PO (08:51)
[2019-12-31] MEDS: Insulin Aspart 300 UNITS/3 ML PEN SC ×2 (08:52→12:13)
--- NOTE | 2019-12-31 11:51 | W.PM.PROGNOT ---
Date of Service Date of service: 12/31/19 Time of Service: 11:52 Assessment and Plan Assessment and plan (1) Pneumonia: Status: Acute Assessment and plan: Patient is off the oxacillin and back on vancomycin. He remains afebrile. He still requiring supplemental oxygen to maintain his saturation. His inflammatory markers are improving his CRP is down to 0.98 from a peak of 5.78. His leukocyte count remains elevated 20,000. He has coronavirus PCR was initially negative but repeat testing is pending as the patient had a contamination while in the RICU Qualifiers: Pneumonia type: due to unspecified organism Laterality: right Lung location: lower lobe of lung Qualified Code(s): J18.9 - Pneumonia, unspecified organism (2) MSSA bacteremia: Status: Acute Assessment and plan: Patient's blood cultures from December 25 demonstrated MSSA bacteremia. Repeat blood cultures from 12/28/2019 showed no growth. I will repeat the blood cultures now and if they remain no growth we will plan on putting in a midline to complete 4-week course of antibiotics (3) Schizo affective schizophrenia: Status: Chronic Assessment and plan: Continue his home medications (4) Non-insulin dependent type 2 diabetes mellitus: Status: Chronic Assessment and plan: Blood sugars running 1 82-231 today. I will adjust his Lantus to reduce his fasting glucose. I will increase his NPH to compensate for his corticosteroids. (5) Hypertension: Status: Chronic Assessment and plan: We \havel added Norvasc to his regimen. Blood pressures are improved since Norvasc was added yesterday. Qualifiers: Hypertension type: essential hypertension Qualified Code(s): I10 - Essential (primary) hypertension (6) GERD (gastroesophageal reflux disease): Status: Chronic Assessment and plan: Continue his home Protonix twice a day Qualifiers: Esophagitis presence: esophagitis presence not specified Qualified Code(s): K21.9 - Gastro-esophageal reflux disease without esophagitis (7) DVT prophylaxis: Status: Acute Assessment and plan: Continue home dose of apixaban (8) Discharge planning issues: Status: Acute Assessment and plan: Patient will need to complete 4-week course of antistaphylococcal antibiotics. This will need to be IV antibiotics. Will ask case management to look into swing bed status once his repeat COVID testing is negative. Subjective Subjective Interval history since last seen: Clinic denies any shortness of breath or chest discomfort. No nausea or vomiting. He is moving his bowels, had a small bowel movement yesterday. He has a docusate and MiraLAX on a as needed basis. However he is taken dose 800 mg once a day on a scheduled basis. I will increase that to twice daily. I will add some senna at night. With respect to his pneumonia he still requiring a facemask using an oxygen mask at 4 L/min as he is a mouth breather nasal cannula does not maintain his oxygen saturation. He has minimal cough at this point. Lungs still sound congested with diminished breath sounds at the bases Exam Narrative Exam Narrative: Alert and oriented person place time circumstance. Lungs reveal markedly diminished breath sounds over the right lung base. Upper hern[place] are clear Heart is regular rate and rhythm without murmur rub or gallop. Abdomen soft and nontender nondistended normal active bowel sounds. Extremities without peripheral cyanosis or edema Objective Objective Clinical Data: Abnormal lab results 12/31/19 12/31/19 12/31/19 Range/Units 06:50 06:50 06:50 WBC 20.50 H (4.4-10.8) k/cumm RBC 3.54 L (4.50-6.00) m/cumm Hgb 10.0 L (13.5-17.5) g/dL Hct 31.1 L (40.0-50.0) % RDW 17.7 H (11.8-14.1) % Absolute Neutrophils 13.74 H (1.2-6.7) k/cumm Absolute Lymphocytes 3.49 H (1.2-3.4) k/cumm Absolute Monocytes 1.64 H (0.11-0.7) k/cumm Absolute Eosinophils 0.82 H (0.0-0.7) k/cumm BUN 21 H (7-18) mg/dL Glucose 144 H (74-106) mg/dL C-Reactive Protein 0.98 H (0.0-0.3) mg/dL Vital Signs Temperature 36 C L 12/31/19 09:09 Temperature Source Tympanic 12/31/19 09:09 Pulse 85 12/31/19 09:09 Pulse Rhythm Regular 12/31/19 08:50 Respiratory Rate 17 12/31/19 09:09 Respiratory Effort Non-Labored 12/31/19 08:50 Respiratory Depth Normal 12/31/19 08:50 Respiratory Pattern Normal 12/31/19 08:50 Blood Pressure 108/74 12/31/19 09:09 Blood Pressure Mean 93 12/24/19 19:50 Blood Pressure Position Supine 12/25/19 07:40 Pulse Oximetry 95 12/31/19 09:09 Oxygen Delivery Method OxyMask 12/31/19 09:09 Oxygen Flow Rate 4 12/31/19 09:09 Fraction of Inspired Oxygen (FIO2) 93 12/28/19 17:48 Pain Level 0 12/31/19 09:09 Comment 12/31/19 09:09 Intake & Output 12/30/19 12/30/19 12/31/19 11:59 23:59 11:59 Intake Total 510 / 1060 550 / 1060 610 / 610 Output Total 1250 / 1650 400 / 1650 300 / 300 Balance -740 / -590 150 / -590 310 / 310 Intake: IV 150 / 450 300 / 450 250 / 250 Oral 360 / 610 250 / 610 360 / 360 Output: Urine 1250 / 1650 400 / 1650 300 / 300 Other: Urine Color Pale Pale Yellow Yellow Urine Appearance Clear Clear Clear Urine Odor Normal Comment Pt voided into the toilet at this time. Stool Size Moderate Moderate Stool Characteristics Formed Soft Liquid Voiding Methods Urinal Toilet Urinal Laboratory Results WBC 20.50 k/cumm (4.4-10.8) H 12/31/19 06:50 RBC 3.54 m/cumm (4.50-6.00) L 12/31/19 06:50 Hgb 10.0 g/dL (13.5-17.5) L 12/31/19 06:50 Hct 31.1 % (40.0-50.0) L 12/31/19 06:50 MCV 87.9 fL (80-95) 12/31/19 06:50 MCH 28.2 pg (27.0-33.0) 12/31/19 06:50 MCHC 32.2 g/dL (32.0-36.0) 12/31/19 06:50 RDW 17.7 % (11.8-14.1) H 12/31/19 06:50 Plt Count 356 x1000/uL (130-400) 12/31/19 06:50 MPV 9.9 fL (8.0-11.0) 12/31/19 06:50 Immature Gran % 0.0 % 12/31/19 06:50 Neutrophils % 64.0 12/31/19 06:50 Band Neutrophils % 3.0 % 12/31/19 06:50 Lymphocytes % 17.0 12/31/19 06:50 Atypical Lymphs % 0 12/24/19 14:30 Monocytes % 8.0 12/31/19 06:50 Eosinophils % 4.0 12/31/19 06:50 Basophils % 0.0 12/31/19 06:50 Metamyelocytes % 2.0 % 12/31/19 06:50 Myelocytes % 2.0 % 12/31/19 06:50 Absolute Neutrophils 13.74 k/cumm (1.2-6.7) H 12/31/19 06:50 Absolute Lymphocytes 3.49 k/cumm (1.2-3.4) H 12/31/19 06:50 Absolute Monocytes 1.64 k/cumm (0.11-0.7) H 12/31/19 06:50 Absolute Eosinophils 0.82 k/cumm (0.0-0.7) H 12/31/19 06:50 Absolute Basophils 0.00 k/cumm (0.0-0.2) 12/31/19 06:50 Differential Comment Manual differential 12/31/19 06:50 RBC Morphology See below 12/31/19 06:50 Polychromasia Present 12/30/19 08:35 Hypochromasia 1+ 12/31/19 06:50 Poikilocytosis 1+ 12/31/19 06:50 Anisocytosis 1+ 12/28/19 06:10 Macrocytosis 1+ 12/26/19 06:40 PT 10.8 sec (9.3-11.0) 12/24/19 14:30 INR 1.1 (0.9-1.1) 12/24/19 14:30 APTT 37.9 sec (21.0-31.4) H 12/24/19 14:30 Sodium 141 mmol/L (136-145) 12/31/19 06:50 Potassium 4.2 mmol/L (3.5-5.1) 12/31/19 06:50 Chloride 105 mmol/L (98-107) 12/31/19 06:50 Carbon Dioxide 30.2 mmol/L (21.0-32.0) 12/31/19 06:50 Anion Gap 5.8 mmol/L (3-11) 12/31/19 06:50 BUN 21 mg/dL (7-18) H 12/31/19 06:50 Creatinine 0.88 mg/dL (0.70-1.30) 12/31/19 06:50 Estimated GFR/1.73 m2 >= 60.00 (mL/min/1.73m2) 12/31/19 06:50 Glucose 144 mg/dL (74-106) H 12/31/19 06:50 Lactate 1.4 mmol/L (0.6-1.4) 12/27/19 06:05 Calcium 8.9 mg/dL (8.5-10.1) 12/31/19 06:50 Magnesium 2.1 mg/dL (1.8-2.4) 12/29/19 08:40 Total Bilirubin 0.4 mg/dL (0.2-1.0) 12/24/19 14:30 AST 13 U/L (15-37) L 12/24/19 14:30 ALT 22 U/L (16-63) 12/24/19 14:30 Alkaline Phosphatase 85 U/L (46-116) 12/24/19 14:30 Troponin I < 0.05 ng/Ml (<0.06) 12/25/19 00:50 C-Reactive Protein 0.98 mg/dL (0.0-0.3) H 12/31/19 06:50 NT-Pro-B Natriuret Pep 316 pg/mL (<300) H 12/24/19 14:30 Total Protein 7.6 g/dL (6.4-8.2) 12/24/19 14:30 Albumin 3.8 g/dL (3.4-5.0) 12/24/19 14:30 Procalcitonin 0.3 ng/mL 12/29/19 08:40 TSH 0.69 uIU/mL (0.36-3.74) 12/25/19 06:50 Vancomycin Trough 8.3 ug/mL (10.0-20.0) L 12/27/19 15:55 Coronavirus (PCR) Not detected (NotDetected) 12/27/19 16:17 Ur Strep pneumoniae Ag Negative (Negative) 12/27/19 00:42
[2019-12-31] MEDS: VANCOMYCIN 1,000 MG in Normal Saline 250 ML 166 ML IV ×2 (12:14→21:44)
[2019-12-31] MEDS: Normal Saline 500 ML 30 ML IV (12:14)
[2019-12-31] MEDS: Ferrous Gluconate 324 MG TAB PO (12:15)
--- NOTE | 2019-12-31 12:18 | CMPROGNOTE_ITS ---
Care Management Progress Note S/O: Clepamella remains on precautions awaiting COVID-19 test results, anticipate he will be quarantined for a minimum of 14 days due to possible exposure. 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 Plan remains for Clepamella to return to [facility] when medically ready. CM left saray Lambert at [facility] regarding discharge planning. CM continues to follow. A: 64 year old male admitted to [facility] 12/24/19 for Pneumonia, [place], Lactic Acidosis P: Elias continues to be closely monitored. He R/O for Covid but there is some question to exposure. Awaiting COVID 19 re-testing (repeated 12/27). May have to repeat imaging per MD. Awaiting sensitivities to determine residential IV ABX therapy. CM continues to follow
[2019-12-31] MEDS: Simvastatin 20 MG TAB PO (21:43)
[2019-12-31] MEDS: Insulin Glargine 300 UNITS/3 ML PEN 10 UNITS SC (21:58)
[2020-01-01] MEDS: Albuterol/Ipratropium 3 ML UPD VIAL UPD ×4 (06:21→23:38)
[2020-01-01 06:22] VITALS: BP 132/78; PULSE 77; RESP 24; TEMP 36.5; O2SAT 97
[2020-01-01 08:02] LABS: Abs Immature Grans 0.74 k/cumm (0.0-0.09); Mean Corp. HGB Concentration 32.3 g/dL (32.0-36.0); Mean Corpuscular Hemoglobin 28.2 pg (27.0-33.0); Mean Corpuscular Volume 87.3 fL (80-95); Platelet Count 370 x1000/uL (130-400); RBC 3.55 m/cumm (4.50-6.00); RBC Distribution Width 17.5 % (11.8-14.1); White Blood Cell Count 14.61 k/cumm (4.4-10.8)
[2020-01-01 08:20] LABS: Absolute Lymphocyte Count 3.51 k/cumm (1.2-3.4); Absolute Monocyte Count 0.73 k/cumm (0.11-0.7); Absolute Neutrophil Count 10.08 k/cumm (1.2-6.7); Diff Comment Manual Differential
[2020-01-01 08:22] LABS: Poikilocytes 1+
[2020-01-01 08:30] LABS: Anion Gap 4.8 mmol/L (3-11); BUN 20 mg/dL (7-18); CO2 31.2 mmol/L (21.0-32.0); Calcium 8.9 mg/dL (8.5-10.1); Chloride 104 mmol/L (98-107); Glucose 125 mg/dL (74-106); Sodium 140 mmol/L (136-145)
[2020-01-01 08:33] LABS: C-Reactive Protein 2.02 mg/dL (0.0-0.3)
[2020-01-01 08:36] LABS: Vancomycin, Trough 14.8 ug/mL (10.0-20.0)
[2020-01-01] MEDS: Normal Saline Flush 10 ML SYR IVP (08:48)
[2020-01-01] MEDS: buPROPion-XL 150 MG TABCR 300 MG PO (08:49)
[2020-01-01] MEDS: Magnesium Chloride 64 MG TABCR PO ×2 (08:49→20:09)
[2020-01-01] MEDS: Apixaban 5 MG TAB PO ×2 (08:49→20:09)
[2020-01-01] MEDS: Cyanocobalamin 500 MCG TAB 1000 MCG PO (08:49)
[2020-01-01] MEDS: Pantoprazole 40 MG TABCR PO ×2 (08:50→20:08)
[2020-01-01] MEDS: Docusate Sodium 100 MG CAP PO (08:50)
[2020-01-01] MEDS: Multivitamin TAB 1 TAB PO (08:50)
[2020-01-01] MEDS: predniSONE 20 MG TAB PO (08:50)
[2020-01-01] MEDS: Folic Acid 1 MG TAB PO (08:51)
[2020-01-01] MEDS: Mometasone 220 MCG 14 DOSE INHALER 2 PUFF IH ×2 (08:56→20:11)
[2020-01-01] MEDS: Insulin NPH-Human 300 UNITS/3 ML PEN 10 UNIT SC (09:00)
[2020-01-01 09:10] VITALS: BP 97/56; PULSE 90; RESP 18; TEMP 36.1; O2SAT 94
[2020-01-01] MEDS: VANCOMYCIN 1,000 MG in Normal Saline 250 ML 166 ML IV (09:17)
[2020-01-01] MEDS: Ferrous Gluconate 324 MG TAB PO (11:03)
[2020-01-01] MEDS: Insulin Aspart 300 UNITS/3 ML PEN SC ×3 (12:07→17:13)
[2020-01-01 12:10] VITALS: PULSE 90; RESP 20; RESP 5; O2SAT 90
--- NOTE | 2020-01-01 12:49 | W.PM.PROGNOT ---
Date of Service Date of service: 01/01/20 Time of Service: 12:49 Assessment and Plan Assessment and plan (1) Pneumonia: Status: Acute Assessment and plan: Patient is afebrile his leukocytosis is finally declining down to 14,000. His CRP still remains mildly elevated at 2.0. He is currently back on vancomycin for MSSA bacteremia and pneumonia. He has been switched to oxacillin for a couple of days and that is when his white count started to climb. He is currently on oxygen mask at 3 L/min with oxygen saturations at 90 to 94%. Qualifiers: Pneumonia type: due to unspecified organism Laterality: right Lung location: lower lobe of lung Qualified Code(s): J18.9 - Pneumonia, unspecified organism (2) MSSA bacteremia: Status: Acute Assessment and plan: Repeat blood culture pending at this time. If it is negative we will plan for midline to finish out his 4-week regimen of antistaphylococcal antibiotics through January 22, 2020 (3) Non-insulin dependent type 2 diabetes mellitus: Status: Chronic Assessment and plan: Blood sugars running from 137 fasting to 264 at lunchtime. I will increase his Lantus slightly from 10 units nightly to 13 units. I am going to discontinue his prednisone as he has had a week of corticosteroids. I will add NovoLog carbohydrate coverage at a ratio of 1-10 (4) Hypertension: Status: Chronic Assessment and plan: Blood pressures are improved since Norvasc was added yesterday. Qualifiers: Hypertension type: essential hypertension Qualified Code(s): I10 - Essential (primary) hypertension (5) Schizo affective schizophrenia: Status: Chronic Assessment and plan: Continue his home medications (6) GERD (gastroesophageal reflux disease): Status: Chronic Assessment and plan: Continue his home Protonix twice a day Qualifiers: Esophagitis presence: esophagitis presence not specified Qualified Code(s): K21.9 - Gastro-esophageal reflux disease without esophagitis (7) DVT prophylaxis: Status: Acute Assessment and plan: Continue home dose of apixaban (8) Discharge planning issues: Status: Acute Assessment and plan: Patient will need to complete 4-week course of antistaphylococcal antibiotics. This will need to be IV antibiotics. Will ask case management to look into swing bed status once his repeat COVID testing is negative. End date of his antibiotics is January 22, 2020 Subjective Subjective Interval history since last seen: Koko has no acute complaints. Specifically he denies any chest pain or shortness of breath. No nausea or vomiting. He is moving his bowels well. His SARS-CoV-2 PCR repeat testing is pending at this time. Once we have confirmed that he has remained negative we can take him out of the negative air pressure room. Repeat blood cultures were obtained today. That is pending. If that is negative then we will proceed with placement of a midline as the patient is going to need 3 more weeks of antistaphylococcal antibiotics. Exam Narrative Exam Narrative: Alert and oriented person place time circumstance. Lying in bed watching TV. No acute distress. Lungs with scattered expiratory wheezes with diminished breath sounds of the right lung base although overall he has improved air exchange. Heart is regular rate and rhythm without murmur rub or gallop. Abdomen soft nontender with normal active bowel sounds nondistended. Extremities without peripheral cyanosis or edema. Objective Objective Clinical Data: Abnormal lab results 01/01/20 01/01/20 01/01/20 Range/Units 07:45 07:45 07:45 WBC 14.61 H (4.4-10.8) k/cumm RBC 3.55 L (4.50-6.00) m/cumm Hgb 10.0 L (13.5-17.5) g/dL Hct 31.0 L (40.0-50.0) % RDW 17.5 H (11.8-14.1) % Absolute Neutrophils 10.08 H (1.2-6.7) k/cumm Absolute Lymphocytes 3.51 H (1.2-3.4) k/cumm Absolute Monocytes 0.73 H (0.11-0.7) k/cumm BUN 20 H (7-18) mg/dL Glucose 125 H (74-106) mg/dL C-Reactive Protein 2.02 H (0.0-0.3) mg/dL Vital Signs Temperature 36.1 C L 01/01/20 09:10 Temperature Source Tympanic 01/01/20 09:10 Pulse 90 01/01/20 12:10 Pulse Rhythm Regular 12/31/19 21:06 Respiratory Rate 20 01/01/20 12:10 Respiratory Effort Non-Labored 01/01/20 06:29 Respiratory Depth Normal 01/01/20 06:29 Respiratory Pattern Normal 01/01/20 06:29 Blood Pressure 97/56 L 01/01/20 09:10 Blood Pressure Mean 93 12/24/19 19:50 Blood Pressure Position Supine 12/25/19 07:40 Pulse Oximetry 90 L 01/01/20 12:10 Oxygen Delivery Method OxyMask 01/01/20 12:10 Oxygen Flow Rate 3 01/01/20 12:10 Fraction of Inspired Oxygen (FIO2) 93 12/28/19 17:48 Pain Level 0 01/01/20 09:10 Comment 12/31/19 15:47 Intake & Output 12/31/19 01/01/20 01/01/20 23:59 11:59 23:59 Intake Total 750 / 1360 250 / 250 Output Total 550 / 850 750 / 750 Balance 200 / 510 -500 / -500 Intake: IV 750 / 1000 250 / 250 Output: Urine 550 / 850 750 / 750 Other: Urine Color Yellow Yellow Urine Appearance Clear Clear Urine Odor Normal Voiding Methods Urinal Laboratory Results WBC 14.61 k/cumm (4.4-10.8) H 01/01/20 07:45 RBC 3.55 m/cumm (4.50-6.00) L 01/01/20 07:45 Hgb 10.0 g/dL (13.5-17.5) L 01/01/20 07:45 Hct 31.0 % (40.0-50.0) L 01/01/20 07:45 MCV 87.3 fL (80-95) 01/01/20 07:45 MCH 28.2 pg (27.0-33.0) 01/01/20 07:45 MCHC 32.3 g/dL (32.0-36.0) 01/01/20 07:45 RDW 17.5 % (11.8-14.1) H 01/01/20 07:45 Plt Count 370 x1000/uL (130-400) 01/01/20 07:45 MPV 10.0 fL (8.0-11.0) 01/01/20 07:45 Immature Gran % % 01/01/20 07:45 Neutrophils % 68.0 01/01/20 07:45 Band Neutrophils % 1.0 % 01/01/20 07:45 Lymphocytes % 24.0 01/01/20 07:45 Atypical Lymphs % 0 12/24/19 14:30 Monocytes % 5.0 01/01/20 07:45 Eosinophils % 1.6 01/01/20 07:45 Basophils % 0.0 01/01/20 07:45 Metamyelocytes % 2.0 % 01/01/20 07:45 Myelocytes % 2.0 % 12/31/19 06:50 Absolute Neutrophils 10.08 k/cumm (1.2-6.7) H 01/01/20 07:45 Absolute Lymphocytes 3.51 k/cumm (1.2-3.4) H 01/01/20 07:45 Absolute Monocytes 0.73 k/cumm (0.11-0.7) H 01/01/20 07:45 Absolute Eosinophils 0.23 k/cumm (0.0-0.7) 01/01/20 07:45 Absolute Basophils 0.00 k/cumm (0.0-0.2) 01/01/20 07:45 Differential Comment Manual differential 01/01/20 07:45 RBC Morphology See below 01/01/20 07:45 Polychromasia Present 12/30/19 08:35 Hypochromasia 1+ 12/31/19 06:50 Poikilocytosis 1+ 01/01/20 07:45 Anisocytosis 1+ 12/28/19 06:10 Macrocytosis 1+ 12/26/19 06:40 PT 10.8 sec (9.3-11.0) 12/24/19 14:30 INR 1.1 (0.9-1.1) 12/24/19 14:30 APTT 37.9 sec (21.0-31.4) H 12/24/19 14:30 Sodium 140 mmol/L (136-145) 01/01/20 07:45 Potassium 4.0 mmol/L (3.5-5.1) 01/01/20 07:45 Chloride 104 mmol/L (98-107) 01/01/20 07:45 Carbon Dioxide 31.2 mmol/L (21.0-32.0) 01/01/20 07:45 Anion Gap 4.8 mmol/L (3-11) 01/01/20 07:45 BUN 20 mg/dL (7-18) H 01/01/20 07:45 Creatinine 0.90 mg/dL (0.70-1.30) 01/01/20 07:45 Estimated GFR/1.73 m2 >= 60.00 (mL/min/1.73m2) 01/01/20 07:45 Glucose 125 mg/dL (74-106) H 01/01/20 07:45 Lactate 1.4 mmol/L (0.6-1.4) 12/27/19 06:05 Calcium 8.9 mg/dL (8.5-10.1) 01/01/20 07:45 Magnesium 2.1 mg/dL (1.8-2.4) 12/29/19 08:40 Total Bilirubin 0.4 mg/dL (0.2-1.0) 12/24/19 14:30 AST 13 U/L (15-37) L 12/24/19 14:30 ALT 22 U/L (16-63) 12/24/19 14:30 Alkaline Phosphatase 85 U/L (46-116) 12/24/19 14:30 Troponin I < 0.05 ng/Ml (<0.06) 12/25/19 00:50 C-Reactive Protein 2.02 mg/dL (0.0-0.3) H 01/01/20 07:45 NT-Pro-B Natriuret Pep 316 pg/mL (<300) H 12/24/19 14:30 Total Protein 7.6 g/dL (6.4-8.2) 12/24/19 14:30 Albumin 3.8 g/dL (3.4-5.0) 12/24/19 14:30 Procalcitonin 0.3 ng/mL 12/29/19 08:40 TSH 0.69 uIU/mL (0.36-3.74) 12/25/19 06:50 Vancomycin Trough 14.8 ug/mL (10.0-20.0) 01/01/20 07:45 Coronavirus (PCR) Not detected (NotDetected) 12/27/19 16:17 Ur Strep pneumoniae Ag Negative (Negative) 12/27/19 00:42
[2020-01-01 15:05] LABS: COVID-19 RT-PCR Result Not Detected (NotDetected)
--- NOTE | 2020-01-01 16:00 | CMPROGNOTE_ITS ---
Care Management Progress Note S/O: Clepamella remains on precautions awaiting COVID-19 test results, anticipate he will be quarantined for a minimum of 14 days due to possible exposure. 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 Plan remains for Clepamella to return to [facility] when medically ready. CM left saray Lambert at [facility] regarding discharge planning. CM continues to follow. A: 64 year old male admitted to [facility] 12/24/19 for Pneumonia, [place], Lactic Acidosis P: Elias continues to be closely monitored. He R/O for Covid but there is some question to exposure. Awaiting COVID 19 re-testing (repeated 12/27). May have to repeat imaging per MD. Awaiting sensitivities to determine alf IV ABX therapy. CM continues to follow
[2020-01-01 17:31] VITALS: PULSE 88; RESP 2; RESP 20; RESP 7; O2SAT 94
[2020-01-01] MEDS: VANCOMYCIN 1,000 MG in Normal Saline 250 ML 167 ML IV (17:35)
[2020-01-01] MEDS: Simvastatin 20 MG TAB PO (20:08)
[2020-01-01] MEDS: Insulin Glargine 300 UNITS/3 ML PEN 13 UNITS SC (20:13)
[2020-01-01 20:21] VITALS: BP 114/59; PULSE 84; RESP 19; TEMP 36.1; O2SAT 97
[2020-01-02] VITALS (7 sets, daily range): BP systolic 121–145; BP diastolic 66–85; PULSE 76–98; RESP 4–19; TEMP 36.2–36.7; O2SAT 92–98
[2020-01-02] MEDS: Albuterol/Ipratropium 3 ML UPD VIAL UPD ×3 (05:11→18:08)
[2020-01-02] MEDS: VANCOMYCIN 1,000 MG in Normal Saline 250 ML 167 ML IV ×2 (05:11→14:29)
[2020-01-02] MEDS: Cyanocobalamin 500 MCG TAB 1000 MCG PO (08:05)
[2020-01-02] MEDS: Docusate Sodium 100 MG CAP PO (08:06)
[2020-01-02] MEDS: Multivitamin TAB 1 TAB PO (08:06)
[2020-01-02] MEDS: Magnesium Chloride 64 MG TABCR PO ×2 (08:06→20:33)
[2020-01-02] MEDS: Folic Acid 1 MG TAB PO (08:06)
[2020-01-02] MEDS: buPROPion-XL 150 MG TABCR 300 MG PO (08:06)
[2020-01-02] MEDS: Apixaban 5 MG TAB PO ×2 (08:06→20:32)
[2020-01-02] MEDS: Pantoprazole 40 MG TABCR PO ×2 (08:07→20:34)
[2020-01-02] MEDS: predniSONE 20 MG TAB 10 MG PO (08:08)
[2020-01-02] MEDS: Mometasone 220 MCG 14 DOSE INHALER 2 PUFF IH ×2 (08:09→20:35)
[2020-01-02] MEDS: Normal Saline Flush 10 ML SYR IVP (08:09)
[2020-01-02] MEDS: Insulin NPH-Human 300 UNITS/3 ML PEN 10 UNIT SC (08:18)
[2020-01-02] MEDS: Insulin Aspart 300 UNITS/3 ML PEN SC ×5 (08:29→17:11)
[2020-01-02] MEDS: Ferrous Gluconate 324 MG TAB PO (11:44)
--- NOTE | 2020-01-02 11:47 | CMPROGNOTE_ITS ---
- If Service Date Differs Date of service: 01/02/20 Time of Service: 11:47 Care Management Progress Note S/O: Koko remains on precautions awaiting COVID-19 test results, anticipate he will be quarantined for a minimum of 14 days due to possible exposure. Per MD, his abx course will be approximately 4 weeks, Q10H. Unless he can be transitioned to once a day abx treatment, he will likely remain at [facility] on SWB1 for the IV abx course. Plan remains for Koko to return to [facility] when medically cleared. CM will continue to follow. A: 64 year old male admitted to [facility] 12/24/19 for Pneumonia, [place], Lactic Acidosis P: Elias continues to be closely monitored. He R/O for Covid but there is some question to exposure. Awaiting COVID 19 re-testing (repeated 12/27). May have to repeat imaging per MD. Awaiting sensitivities to determine alf IV ABX therapy, although it is likely Q10H. If this course is continued, he will transition to [facility], possibly Saturday. CM continues to follow.
--- NOTE | 2020-01-02 15:47 | PGE_ITS ---
Date of Service Date of service: 01/02/20 Time of Service: 15:48 Assessment and Plan Assessment and plan (1) Pneumonia: Status: Acute Assessment and plan: Clinically he seems to have improved on the vancomycin even though he has MSSA. I will wait and see what the repeat blood culture comes back since it appears that it is also staph. If it turns out that the repeat culture is still MSSA that I will need to reconsider use of either Ancef or oxacillin as opposed to vancomycin. I will discuss his case further with infectious disease service on Saturday. I will get an echocardiogram to look for vegetations on Saturday. Qualifiers: Pneumonia type: due to unspecified organism Laterality: right Lung location: lower lobe of lung Qualified Code(s): J18.9 - Pneumonia, unspecified organism (2) MSSA bacteremia: Status: Acute Assessment and plan: As above. Patient will need 4 to 6 weeks of antibiotics for coverage of possible MSSA endocarditis (3) Non-insulin dependent type 2 diabetes mellitus: Status: Chronic Assessment and plan: Blood sugars 125-198 today. Patient currently on NPH 10 units with his prednisone along with resistant dose NovoLog sliding scale and carb coverage as well as basal insulin of Lantus 13 units nightly (4) Hypertension: Status: Chronic Assessment and plan: Blood pressures are improved since Norvasc was added. Qualifiers: Hypertension type: essential hypertension Qualified Code(s): I10 - Essential (primary) hypertension (5) Schizo affective schizophrenia: Status: Chronic Assessment and plan: Continue his home medications (6) GERD (gastroesophageal reflux disease): Status: Chronic Assessment and plan: Continue his home Protonix twice a day Qualifiers: Esophagitis presence: esophagitis presence not specified Qualified Code(s): K21.9 - Gastro-esophageal reflux disease without esophagitis (7) DVT prophylaxis: Status: Acute Assessment and plan: Continue home dose of apixaban (8) Discharge planning issues: Status: Acute Assessment and plan: Patient will need to go to swing bed status when he completes 4 to 6 weeks of IV antibiotics for coverage of staph endocarditis Subjective Subjective Interval history since last seen: Patient remains afebrile and has no complaints. Specifically he denied any chest pain or shortness of breath or abdominal pain. No nausea or vomiting. Last bowel movement was yesterday. Repeat blood cultures from yesterday are showing gram-positive cocci in 1 out of 2 bottles. This suggests he still has an ongoing infectious source. We know that he has a pneumonia but his oxygenation has been improving his breath sounds be improving. I am concerned he has some underlying endocarditis. Once his COVID-19 test is negative on his repeat testing we will get an echocardiogram to evaluate for vegetations. He is currently on vancomycin. His blood cultures previously grew MSSA but when he was switched to oxacillin he seemed to regress with rising leukocytosis and CRP. Currently seems to have been improving with a decline in his leukocytosis 10-14,000. I repeat his labs tomorrow and have a discussion with infectious disease on Saturday on optimum antibiotics. Per [place] guidelines they recommend oxacillin or nafcillin 2 g every 4 hours x4 to 6 weeks and as an alternative Ancef 2 g every 8 hours x4 to 6 weeks. They do recommend vancomycin as an alternative but only in the setting of major penicillin and cephalosporin allergy. Exam Narrative Exam Narrative: Alert and oriented person place time circumstance. Very pleasant gentleman lying in bed watching TV. No respiratory discomfort whatsoever. He is afebrile. Pulse oximetry is 93% on 2 L per oxygen mask. He is wearing a facemask because he is a mouth breather. Lungs are clear anteriorly and posteriorly he has improved breath sounds at the right lung base whereas before he had markedly diminished breath sounds. Heart is regular rate and rhythm I thought I can hear a faint systolic murmur over the apex. Abdomen soft and nontender. Extremities without peripheral cyanosis or edema Objective Objective Clinical Data: Vital Signs Temperature 36.7 C 01/02/20 08:16 Temperature Source Tympanic 01/02/20 08:16 Pulse 88 01/02/20 11:59 Pulse Rhythm Regular 01/02/20 15:31 Respiratory Rate 18 01/02/20 11:59 Respiratory Effort Non-Labored 01/02/20 15:31 Respiratory Depth Normal 01/02/20 15:31 Respiratory Pattern Normal 01/02/20 15:31 Blood Pressure 145/85 H 01/02/20 08:16 Blood Pressure Mean 93 12/24/19 19:50 Blood Pressure Position Supine 12/25/19 07:40 Pulse Oximetry 93 L 01/02/20 11:59 Oxygen Delivery Method OxyMask 01/02/20 11:45 Oxygen Flow Rate 2 01/02/20 11:45 Fraction of Inspired Oxygen (FIO2) 93 12/28/19 17:48 Pain Level 0 01/02/20 08:16 Comment 12/31/19 15:47 Intake & Output 01/01/20 01/02/20 01/02/20 23:59 11:59 23:59 Intake Total 1050 / 1300 490 / 490 Output Total 350 / 1100 Balance 700 / 200 490 / 490 Weight 68.7 kg Intake: IV 250 / 500 250 / 250 Oral 800 / 800 240 / 240 Output: Urine 350 / 1100 Other: Urine Color Yellow Yellow Urine Appearance Clear Clear Cloudy Urine Odor None Comment pt went in toilet unable to obtain amount Voiding Methods Urinal Toilet Urinal Laboratory Results WBC 14.61 k/cumm (4.4-10.8) H 01/01/20 07:45 RBC 3.55 m/cumm (4.50-6.00) L 01/01/20 07:45 Hgb 10.0 g/dL (13.5-17.5) L 01/01/20 07:45 Hct 31.0 % (40.0-50.0) L 01/01/20 07:45 MCV 87.3 fL (80-95) 01/01/20 07:45 MCH 28.2 pg (27.0-33.0) 01/01/20 07:45 MCHC 32.3 g/dL (32.0-36.0) 01/01/20 07:45 RDW 17.5 % (11.8-14.1) H 01/01/20 07:45 Plt Count 370 x1000/uL (130-400) 01/01/20 07:45 MPV 10.0 fL (8.0-11.0) 01/01/20 07:45 Immature Gran % % 01/01/20 07:45 Neutrophils % 68.0 01/01/20 07:45 Band Neutrophils % 1.0 % 01/01/20 07:45 Lymphocytes % 24.0 01/01/20 07:45 Atypical Lymphs % 0 12/24/19 14:30 Monocytes % 5.0 01/01/20 07:45 Eosinophils % 0.0 01/01/20 07:45 Basophils % 0.0 01/01/20 07:45 Metamyelocytes % 2.0 % 01/01/20 07:45 Myelocytes % 2.0 % 12/31/19 06:50 Absolute Neutrophils 10.08 k/cumm (1.2-6.7) H 01/01/20 07:45 Absolute Lymphocytes 3.51 k/cumm (1.2-3.4) H 01/01/20 07:45 Absolute Monocytes 0.73 k/cumm (0.11-0.7) H 01/01/20 07:45 Absolute Eosinophils 0.00 k/cumm (0.0-0.7) 01/01/20 07:45 Absolute Basophils 0.00 k/cumm (0.0-0.2) 01/01/20 07:45 Differential Comment Manual differential 01/01/20 07:45 RBC Morphology See below 01/01/20 07:45 Polychromasia Present 12/30/19 08:35 Hypochromasia 1+ 12/31/19 06:50 Poikilocytosis 1+ 01/01/20 07:45 Anisocytosis 1+ 12/28/19 06:10 Macrocytosis 1+ 12/26/19 06:40 PT 10.8 sec (9.3-11.0) 12/24/19 14:30 INR 1.1 (0.9-1.1) 12/24/19 14:30 APTT 37.9 sec (21.0-31.4) H 12/24/19 14:30 Sodium 140 mmol/L (136-145) 01/01/20 07:45 Potassium 4.0 mmol/L (3.5-5.1) 01/01/20 07:45 Chloride 104 mmol/L (98-107) 01/01/20 07:45 Carbon Dioxide 31.2 mmol/L (21.0-32.0) 01/01/20 07:45 Anion Gap 4.8 mmol/L (3-11) 01/01/20 07:45 BUN 20 mg/dL (7-18) H 01/01/20 07:45 Creatinine 0.90 mg/dL (0.70-1.30) 01/01/20 07:45 Estimated GFR/1.73 m2 >= 60.00 (mL/min/1.73m2) 01/01/20 07:45 Glucose 125 mg/dL (74-106) H 01/01/20 07:45 Lactate 1.4 mmol/L (0.6-1.4) 12/27/19 06:05 Calcium 8.9 mg/dL (8.5-10.1) 01/01/20 07:45 Magnesium 2.1 mg/dL (1.8-2.4) 12/29/19 08:40 Total Bilirubin 0.4 mg/dL (0.2-1.0) 12/24/19 14:30 AST 13 U/L (15-37) L 12/24/19 14:30 ALT 22 U/L (16-63) 12/24/19 14:30 Alkaline Phosphatase 85 U/L (46-116) 12/24/19 14:30 Troponin I < 0.05 ng/Ml (<0.06) 12/25/19 00:50 C-Reactive Protein 2.02 mg/dL (0.0-0.3) H 01/01/20 07:45 NT-Pro-B Natriuret Pep 316 pg/mL (<300) H 12/24/19 14:30 Total Protein 7.6 g/dL (6.4-8.2) 12/24/19 14:30 Albumin 3.8 g/dL (3.4-5.0) 12/24/19 14:30 Procalcitonin 0.3 ng/mL 12/29/19 08:40 TSH 0.69 uIU/mL (0.36-3.74) 12/25/19 06:50 Vancomycin Trough 14.8 ug/mL (10.0-20.0) 01/01/20 07:45 Coronavirus (PCR) Not detected (NotDetected) 12/29/19 12:10 Ur Strep pneumoniae Ag Negative (Negative) 12/27/19 00:42
[2020-01-02] MEDS: Simvastatin 20 MG TAB PO (20:33)
[2020-01-02] MEDS: Insulin Glargine 300 UNITS/3 ML PEN 13 UNITS SC (20:35)
[2020-01-03] VITALS (7 sets, daily range): BP systolic 102–137; BP diastolic 57–82; PULSE 80–94; RESP 2–18; TEMP 36–36.6; O2SAT 92–96
[2020-01-03] MEDS: VANCOMYCIN 1,000 MG in Normal Saline 250 ML 167 ML IV (00:53)
[2020-01-03] MEDS: Albuterol/Ipratropium 3 ML UPD VIAL UPD ×4 (00:53→17:38)
[2020-01-03] MEDS: Cyanocobalamin 500 MCG TAB 1000 MCG PO (08:42)
[2020-01-03] MEDS: Pantoprazole 40 MG TABCR PO ×2 (08:43→19:48)
[2020-01-03] MEDS: Magnesium Chloride 64 MG TABCR PO ×2 (08:43→19:48)
[2020-01-03] MEDS: Apixaban 5 MG TAB PO ×2 (08:43→19:48)
[2020-01-03] MEDS: Folic Acid 1 MG TAB PO (08:43)
[2020-01-03] MEDS: Docusate Sodium 100 MG CAP PO (08:43)
[2020-01-03] MEDS: Multivitamin TAB 1 TAB PO (08:43)
[2020-01-03] MEDS: buPROPion-XL 150 MG TABCR 300 MG PO (08:43)
[2020-01-03] MEDS: Insulin Aspart 300 UNITS/3 ML PEN SC ×6 (08:44→17:30)
[2020-01-03] MEDS: Insulin NPH-Human 300 UNITS/3 ML PEN 10 UNIT SC (08:45)
[2020-01-03] MEDS: predniSONE 20 MG TAB 10 MG PO (08:47)
[2020-01-03] MEDS: Mometasone 220 MCG 14 DOSE INHALER 2 PUFF IH ×2 (08:51→19:50)
[2020-01-03 09:40] LABS: Vancomycin, Trough 10.8 ug/mL (10.0-20.0)
[2020-01-03] MEDS: Ferrous Gluconate 324 MG TAB PO (10:45)
[2020-01-03] MEDS: Normal Saline Flush 10 ML SYR IVP ×2 (10:45→17:33)
--- NOTE | 2020-01-03 14:52 | CMPROGNOTE_ITS ---
- If Service Date Differs Date of service: 01/03/20 Time of Service: 14:52 Care Management Progress Note S/O: Per report, no changes to the plan. Per MD, plan to have an echo on Saturday. Clement remains on precautions awaiting COVID-19 test results, anticipate he will be quarantined for a minimum of 14 days due to possible exposure. Per MD, his abx course will be approximately 4 weeks, Q10H. Unless he can be transitioned to once a day abx treatment, he will likely remain at [facility] on SWB1 for the IV abx course. Plan remains for Clement to return to [place] when medically cleared. CM will continue to follow. A: 64 year old male admitted to [facility] 12/24/19 for Pneumonia, [place], Lactic Acidosis P: Elias continues to be closely monitored. He R/O for Covid but there is some question to exposure. Awaiting COVID 19 re-testing (repeated 12/27). May have to repeat imaging per MD. Awaiting sensitivities to determine terminal superintendent IV ABX therapy, although it is likely Q10H. If this course is continued, he will transition to B 1, possibly Saturday. CM continues to follow.
--- NOTE | 2020-01-03 15:14 | W.PM.PROGNOT ---
Date of Service Date of service: 01/03/20 Time of Service: 15:14 Assessment and Plan Assessment and plan (1) Pneumonia: Status: Acute Assessment and plan: Day # of anti-staphyllococcal treatment for MSSA bacteremia/endocarditis; pneumonia; oxygenation has improved. continue prn bronchodilators and current antibiotic regimen Qualifiers: Pneumonia type: due to unspecified organism Laterality: right Lung location: lower lobe of lung Qualified Code(s): J18.9 - Pneumonia, unspecified organism (2) MSSA bacteremia: Status: Acute Assessment and plan: as above. I will check w/ ID tomorrow to discuss optimal antibiotic regimen and get echo when his repeat viral PCR study is negative. (3) Non-insulin dependent type 2 diabetes mellitus: Status: Chronic Assessment and plan: glucose readings 153 to 164 today. Currently taking 13 units of Lantus for basal coverage, 10 units of NPH for his steroid coverage, 1 unit novolog per 10 gm CHO for meals and snacks, and novolog insulin resistant sliding scale for coverage of high readings. At home he was on metformin and pioglitazone. (4) Hypertension: Status: Chronic Assessment and plan: Blood pressures are improved since Norvasc was added. Qualifiers: Hypertension type: essential hypertension Qualified Code(s): I10 - Essential (primary) hypertension (5) Schizo affective schizophrenia: Status: Chronic Assessment and plan: Continue his home medications (6) GERD (gastroesophageal reflux disease): Status: Chronic Assessment and plan: Continue his home Protonix twice a day Qualifiers: Esophagitis presence: esophagitis presence not specified Qualified Code(s): K21.9 - Gastro-esophageal reflux disease without esophagitis (7) DVT prophylaxis: Status: Acute Assessment and plan: Continue home dose of apixaban (8) Discharge planning issues: Status: Acute Assessment and plan: He will need either SNF or swing bed placement for completion of his antibiotics. Subjective Subjective Interval history since last seen: Koko feels tired this afternoon but otherwise no complaints. He is moving his bowels. No abdominal pain or nausea or vomiting. No dyspnea or cough or chest pains. He remains afebrile. He is currently on Vancomycin for MSSA bacteremia (presumed endocarditis until proven otherwise, no echo has been done yet pending his clearance on his repeat anna virus testing). He originally was on cefepime and vancomycin for first couple days of his admission but then went on oxacillin but did worse w/ rising leukocytosis and increased oxygen requirements after being on oxacillin for couple of days. Since resuming his vancomycin his leukocytes declined to 14,000 and his oxygen saturation has been 92 to 98%. His oxymask is down to 1 lpm. He wears an oxymask as he is a mouth breather. I will check repeat CXR and get an echo once his repeat SARS-CoV-2 PCR is negative. He will need 4 to 6 weeks of anti-staph parenteral antibiotic treatment. His repeat blood culture from 12/31 was positive for Staph non-aureus species. Exam Narrative Exam Narrative: Elderly male lying in bed watching TV in no distress. He is alert and oriented person place time circumstance. Lungs are clear to auscultation anteriorly posteriorly there is some diminished breath sounds at the right lung base but overall there is improved aeration. Heart regular rate and rhythm without murmur rub or gallop. Abdomen soft and nontender, nondistention. Extremities without peripheral cyanosis, or edema. Objective Objective Clinical Data: Vital Signs Temperature 36.5 C 01/03/20 08:55 Temperature Source Tympanic 01/03/20 08:55 Pulse 93 H 01/03/20 12:43 Pulse Rhythm Regular 01/03/20 11:34 Respiratory Rate 18 01/03/20 12:43 Respiratory Effort Non-Labored 01/03/20 11:34 Respiratory Depth Normal 01/03/20 11:34 Respiratory Pattern Normal 01/03/20 11:34 Blood Pressure 102/57 L 01/03/20 08:55 Blood Pressure Mean 93 12/24/19 19:50 Blood Pressure Position Supine 12/25/19 07:40 Pulse Oximetry 94 L 01/03/20 12:43 Oxygen Delivery Method OxyMask 01/03/20 12:22 Oxygen Flow Rate 1 01/03/20 12:22 Fraction of Inspired Oxygen (FIO2) 93 12/28/19 17:48 Pain Level 0 01/03/20 08:55 Comment 12/31/19 15:47 Intake & Output 01/02/20 01/03/20 01/03/20 23:59 11:59 23:59 Intake Total 250 / 740 500 / 1230 730 / 1230 Output Total 300 / 300 100 / 100 Balance -50 / 440 500 / 1130 630 / 1130 Intake: IV 250 / 500 250 / 250 Oral 500 / 980 480 / 980 Output: Urine 300 / 300 100 / 100 Other: Urine Color Light Vandana Yellow Light Vandana Urine Appearance Clear Clear Clear Urine Odor None None None Comment voided in toilet, no measurement obtained Voiding Methods Urinal Toilet Urinal Laboratory Results WBC 14.61 k/cumm (4.4-10.8) H 01/01/20 07:45 RBC 3.55 m/cumm (4.50-6.00) L 01/01/20 07:45 Hgb 10.0 g/dL (13.5-17.5) L 01/01/20 07:45 Hct 31.0 % (40.0-50.0) L 01/01/20 07:45 MCV 87.3 fL (80-95) 01/01/20 07:45 MCH 28.2 pg (27.0-33.0) 01/01/20 07:45 MCHC 32.3 g/dL (32.0-36.0) 01/01/20 07:45 RDW 17.5 % (11.8-14.1) H 01/01/20 07:45 Plt Count 370 x1000/uL (130-400) 01/01/20 07:45 MPV 10.0 fL (8.0-11.0) 01/01/20 07:45 Immature Gran % % 01/01/20 07:45 Neutrophils % 68.0 01/01/20 07:45 Band Neutrophils % 1.0 % 01/01/20 07:45 Lymphocytes % 24.0 01/01/20 07:45 Atypical Lymphs % 0 12/24/19 14:30 Monocytes % 5.0 01/01/20 07:45 Eosinophils % 0.0 01/01/20 07:45 Basophils % 0.0 01/01/20 07:45 Metamyelocytes % 2.0 % 01/01/20 07:45 Myelocytes % 2.0 % 12/31/19 06:50 Absolute Neutrophils 10.08 k/cumm (1.2-6.7) H 01/01/20 07:45 Absolute Lymphocytes 3.51 k/cumm (1.2-3.4) H 01/01/20 07:45 Absolute Monocytes 0.73 k/cumm (0.11-0.7) H 01/01/20 07:45 Absolute Eosinophils 0.00 k/cumm (0.0-0.7) 01/01/20 07:45 Absolute Basophils 0.00 k/cumm (0.0-0.2) 01/01/20 07:45 Differential Comment Manual differential 01/01/20 07:45 RBC Morphology See below 01/01/20 07:45 Polychromasia Present 12/30/19 08:35 Hypochromasia 1+ 12/31/19 06:50 Poikilocytosis 1+ 01/01/20 07:45 Anisocytosis 1+ 12/28/19 06:10 Macrocytosis 1+ 12/26/19 06:40 PT 10.8 sec (9.3-11.0) 12/24/19 14:30 INR 1.1 (0.9-1.1) 12/24/19 14:30 APTT 37.9 sec (21.0-31.4) H 12/24/19 14:30 Sodium 140 mmol/L (136-145) 01/01/20 07:45 Potassium 4.0 mmol/L (3.5-5.1) 01/01/20 07:45 Chloride 104 mmol/L (98-107) 01/01/20 07:45 Carbon Dioxide 31.2 mmol/L (21.0-32.0) 01/01/20 07:45 Anion Gap 4.8 mmol/L (3-11) 01/01/20 07:45 BUN 20 mg/dL (7-18) H 01/01/20 07:45 Creatinine 0.90 mg/dL (0.70-1.30) 01/01/20 07:45 Estimated GFR/1.73 m2 >= 60.00 (mL/min/1.73m2) 01/01/20 07:45 Glucose 125 mg/dL (74-106) H 01/01/20 07:45 Lactate 1.4 mmol/L (0.6-1.4) 12/27/19 06:05 Calcium 8.9 mg/dL (8.5-10.1) 01/01/20 07:45 Magnesium 2.1 mg/dL (1.8-2.4) 12/29/19 08:40 Total Bilirubin 0.4 mg/dL (0.2-1.0) 12/24/19 14:30 AST 13 U/L (15-37) L 12/24/19 14:30 ALT 22 U/L (16-63) 12/24/19 14:30 Alkaline Phosphatase 85 U/L (46-116) 12/24/19 14:30 Troponin I < 0.05 ng/Ml (<0.06) 12/25/19 00:50 C-Reactive Protein 2.02 mg/dL (0.0-0.3) H 01/01/20 07:45 NT-Pro-B Natriuret Pep 316 pg/mL (<300) H 12/24/19 14:30 Total Protein 7.6 g/dL (6.4-8.2) 12/24/19 14:30 Albumin 3.8 g/dL (3.4-5.0) 12/24/19 14:30 Procalcitonin 0.3 ng/mL 12/29/19 08:40 TSH 0.69 uIU/mL (0.36-3.74) 12/25/19 06:50 Vancomycin Trough 10.8 ug/mL (10.0-20.0) 01/03/20 09:15 Coronavirus (PCR) Not detected (NotDetected) 12/29/19 12:10 Ur Strep pneumoniae Ag Negative (Negative) 12/27/19 00:42
[2020-01-03] MEDS: Simvastatin 20 MG TAB PO (19:48)
[2020-01-03] MEDS: Insulin Glargine 300 UNITS/3 ML PEN 13 UNITS SC (19:50)
[2020-01-04] VITALS (11 sets, daily range): BP systolic 106–129; BP diastolic 63–75; PULSE 82–91; RESP 2–28; TEMP 36.3–36.9; O2SAT 90–98
[2020-01-04] MEDS: Albuterol/Ipratropium 3 ML UPD VIAL UPD ×5 (00:24→23:44)
[2020-01-04] MEDS: Normal Saline Flush 10 ML SYR IVP ×3 (02:30→23:45)
[2020-01-04] MEDS: Pantoprazole 40 MG TABCR PO ×2 (08:29→20:22)
[2020-01-04] MEDS: Docusate Sodium 100 MG CAP PO (08:29)
[2020-01-04] MEDS: predniSONE 20 MG TAB 10 MG PO (08:30)
[2020-01-04] MEDS: buPROPion-XL 150 MG TABCR 300 MG PO (08:30)
[2020-01-04] MEDS: Apixaban 5 MG TAB PO ×2 (08:30→20:21)
[2020-01-04] MEDS: Folic Acid 1 MG TAB PO (08:32)
[2020-01-04] MEDS: Insulin Aspart 300 UNITS/3 ML PEN SC ×5 (08:32→17:12)
[2020-01-04] MEDS: Magnesium Chloride 64 MG TABCR PO ×2 (08:32→20:21)
[2020-01-04] MEDS: Multivitamin TAB 1 TAB PO (08:32)
[2020-01-04] MEDS: Insulin NPH-Human 300 UNITS/3 ML PEN 10 UNIT SC (08:33)
--- NOTE | 2020-01-04 08:51 | CMPROGNOTE_ITS ---
- If Service Date Differs Date of service: 01/04/20 Time of Service: 08:51 Care Management Progress Note S/O: Clement is alert sitting up in his bed. Clement remains acute his COVID- 19 is negative. He continues on IV abx. Plan per provider Elias is now of anti-staphyllococcal treatment for MSSA bacteremia/endocarditis; pneumonia; oxygenation has improved. Continued prn bronchodilators and current antibiotic regimen. A: 64 year old male admitted to [facility] 12/24/19 for Pneumonia, [place], Lactic Acidosis P: Elias continues to be closely monitored. May have to repeat imaging per MD. If this course is continued, he will transition to SB1 when medically ready. He will return to [place] when medically ready. CM will continue to follow for anticipated discharge needs.
[2020-01-04] MEDS: Cyanocobalamin 500 MCG TAB 1000 MCG PO (09:09)
[2020-01-04] MEDS: Ferrous Gluconate 324 MG TAB PO (09:10)
[2020-01-04 09:21] LABS: COVID-19 RT-PCR Result Not Detected (NotDetected)
[2020-01-04 09:26] LABS: Absolute Eosinophil Count 0.22 k/cumm (0.0-0.7); HCT 30.9 % (40.0-50.0); HGB 9.9 g/dL (13.5-17.5); Immature Grans % 0.9 %; Mean Corpuscular Hemoglobin 28.4 pg (27.0-33.0); Mean Corpuscular Volume 88.5 fL (80-95); Mean Platelet Volume 9.9 fL (8.0-11.0); Monocytes % 6.8; Neutrophils % 81.3; RBC 3.49 m/cumm (4.50-6.00); RBC Distribution Width 17.6 % (11.8-14.1); White Blood Cell Count 22.36 k/cumm (4.4-10.8)
[2020-01-04 09:31] LABS: Absolute Lymphocyte Count 2.24 k/cumm (1.2-3.4); Absolute Monocyte Count 1.52 k/cumm (0.11-0.7); Absolute Neutrophil Count 18.18 k/cumm (1.2-6.7)
[2020-01-04 09:38] LABS: Anion Gap 7.8 mmol/L (3-11); BUN 21 mg/dL (7-18); C-Reactive Protein 4.54 mg/dL (0.0-0.3); CO2 26.2 mmol/L (21.0-32.0); CREATININE 1.13 mg/dL (0.70-1.30); Calcium 8.9 mg/dL (8.5-10.1); Chloride 104 mmol/L (98-107); Glucose 232 mg/dL (74-106); Potassium 4.1 mmol/L (3.5-5.1); Sodium 138 mmol/L (136-145)
[2020-01-04 09:40] LABS: Vancomycin, Trough 23.3 ug/mL (10.0-20.0)
[2020-01-04 09:55] LABS: Anisocytosis 1+; Diff Comment Agrees w/ Instrument
[2020-01-04 09:56] LABS: Poikilocytes 1+
[2020-01-04 09:57] LABS: Platelet Count 352 x1000/uL (130-400)
--- NOTE | 2020-01-04 10:10 | DI.US_ITS ---
APPROVED REPORT EXAM: Comprehensive 2D, Doppler, and color-flow Echocardiogram Patient Location: In-Patient Room/Bed: 228A Manager Commercial: Keerthi Lowry RDCS (AE) Indications: persistent bacteremia Conclusion Left Ventricle : The left ventricle is normal size. The left ventricular systolic function is normal. The left ventricular ejection fraction is within the normal range. There is normal left ventricular wall thickness. There is normal LV segmental wall motion. The left ventricular diastolic function is normal. LVEF is 45-50%. Right Ventricle : The right ventricle is normal size. The right ventricular systolic function is norm al. Atria : The left atrium size is normal. The right atrium size is normal. Valves: There are no hemodynamically significant valvular lesions. There are no vegetations visualiz ed on any of the valves. Great Vessels : The IVC was not visualized. There is none of tricuspid regurgitation to estimate pul monary pressures. Compared to echocardiogram dated 01/21/2019: Patient's ejection fraction has decreased from normal to 45-50%. Wall motion Left Ventricle The left ventricle is normal size. The left ventricular systolic function is normal. The left ventric ular ejection fraction is within the normal range. There is normal left ventricular wall thickness. T here is normal LV segmental wall motion. The left ventricular diastolic function is normal. There is no ventricular septal defect visualized. LVEF is 45-50%. Right Ventricle The right ventricle is normal size. The right ventricular systolic function is normal. Atria The left atrium size is normal. The right atrium size is normal. The interatrial septum is intact wit h no evidence for an atrial septal defect. Aortic Valve The Aortic valve is sclerotic. Aortic valve is trileaflet. There is no aortic valvular stenosis. No a ortic regurgitation is present. Mitral Valve The mitral valve is normal in structure. No evidence of mitral valve stenosis. Trace mitral regurgita tion. Tricuspid Valve The tricuspid valve is normal in structure. There is no tricuspid valve stenosis. Trace tricuspid reg urgitation. Pulmonic Valve Pulmonic valve is not well visualized. There is no pulmonic valvular stenosis. There is no pulmonic v alvular regurgitation. Great Vessels The aortic root is normal in size. Ascending aorta is not well visualized. Aortic arch is normal in c aliber. The IVC was not visualized. Pericardium There is no pericardial effusion. 2D Dimensions IVSD d PLAX 0.83 cm M: 0.6-1.2 LV Vol A2C d MOD 81.8 mL LVPW d PLAX 0.87 cm M: 0.6 - 1.2 LV Vol A4C d MOD 93.6 mL LVID d PLAX 4.58 cm M: 4.2 - 5.8 LA vol/ BSA A2C s A-L 28.3 mL/m2 LVDs 3.35 cm M: 2.5 - 4.0 LA vol/ BSA A4C s A-L 24.0 mL/m2 Ao Root d 3.23 cm M: 3.1 - 3.7 LA Vol/ BSA Biplane s A-L 26.6 mL/m2 RA Area A4C 11.35 cm2 LA Area A4C s MOD 15.64 cm2 RA Vol/ BSA A4C s A-L 14.9 mL/m2 LA Area A2C s MOD 17.35 cm2 LV EF Teichholz 52.4 % LV EF A4C MOD 48.7 % LVEF (Young's) 47.19 % M: 52 - 72 LV EF A2C MOD 45.0 % LV Volume 69.49 mL M: 62 - 150 LV EF Biplane MOD 47.2 % LV Volume Index 38.39 mL/m2 M: 34 - 74 LV Vol Biplane MOD 89.6 mL FS 26.80 % M-Mode TAPSE 2.36 cm (M/F) <1.7 LV Diastology MV E' medial 0.078 (>0.07 m/s) E/A Ratio 0.8 LV E/e MED 10.05 (<14) MV E Vmax 0.79 (0.4-1.3 m/s) MV E' lateral 0.088 (>0.1 m/s) MV A Vmax 1.05 (0.4-1.3 m/s) LV E/e LAT 8.95 (<14) MV E/A Ratio 0.72 MV E/E' medial 10.08 MV E/E' lateral 8.96 Aortic Valve LVOT Area 2.88 cm2 AoV Area Vmax 2.63 cm2 LVOT Vmax 1.40 m/s AoV Area/ BSA (Vmax) 1.45 cm2/m2 LVOT Mean Marvin. 0.85 m/s YARY Mean Marvin. 2.39 cm2 LVOT Peak Grad 7.8 mmHg YARY Mean Marvin. Index 1.32 cm2/m2 LVOT Mean Grad 3.5 mmHg LVOT VTI 0.212 m LVOT Diam s 1.90 cm (M/F) 1.5-2.5 AoV Vmax 1.54 (0.5-1.3 m/s) Velocity Ratio 0.90 AoV Mean Marvin. 1.03 m/s AoV Peak Grad 9.4 mmHg LVOT SV 61.10 mL AoV Mean Grad 4.7 (<5 mmHg) AoV VTI 0.226 (0.18-0.25 m) AoV Area VTI 2.71 (2.5-4.5 cm2) AoV Area/ BSA (VTI) 1.49 cm/m2 Mitral Valve MV DT 276 (160-240 msec) MV PHT 80 msec MV Area PHT 2.75 cm2 Pulmonary Valve PV Vmax 1.30 (0.5-1.5 m/s) RVOT Peak Gr. 4.80 mmHg PV Peak Grad 6.8 mmHg RVOT Mean Gr. 2.70 mmHg PV Mean Grad 3.3 mmHg RVOT VTI 0.177 m PV VTI 0.205 m RVOT Vmax 1.10 m/s Tricuspid Valve TR Peak Grad 23.6 mmHg TR Vmax 2.43 m/s RA Pressure 3.00 mmHg RVSP (TR) 26.7 mmHg
[2020-01-04] MEDS: Mometasone 220 MCG 14 DOSE INHALER 2 PUFF IH ×2 (12:26→20:21)
--- NOTE | 2020-01-04 14:38 | PGE_ITS ---
Date of Service Date of service: 01/04/20 Time of Service: 14:38 Assessment and Plan Assessment and plan (1) Pneumonia: Start date: 01/04/20 Start time: 14:44 Status: Acute Assessment and plan: Day , d/c vanco and place back on oxacillin for MSSA bacterima, cbc today revealing wBC 22.36 up from 14. 61, CRP 4.54 up from 2.02, though CRP can and will fluctuate during illness, ID [facility] recommends not testing, if so test weekly, elevated WBC elevation with MSSA oxacillin is best option. Trial for a couple of days, per [facility] can take up to 5 days with MSSA bacterima to see results. Recommend oxacillin if no change in 5 days consider follow up call with ID. Afebrile. Echo today with reduced EF 45-50%, no vegetation on leaflets however without ability to do SANJUANA will treat like endocarditis with antbx 4-6 weeks. Qualifiers: Pneumonia type: due to unspecified organism Laterality: right Lung location: lower lobe of lung Qualified Code(s): J18.9 - Pneumonia, unspecified organism (2) MSSA bacteremia: Start date: 01/04/20 Start time: 14:48 Status: Acute Assessment and plan: as above. (3) Non-insulin dependent type 2 diabetes mellitus: Start date: 01/04/20 Start time: 14:49 Status: Chronic Assessment and plan: glucose readings 230 today. Currently taking 13 units of Lantus for basal coverage, 10 units of NPH for his steroid coverage, 1 unit novolog per 10 gm CHO for meals and snacks, and novolog insulin resistant sliding scale for coverage of high readings. At home he was on metformin and pioglitazone Continue to monitor bgl. (4) Hypertension: Start date: 01/04/20 Start time: 14:50 Status: Chronic Assessment and plan: normotensive, continue regimen Qualifiers: Hypertension type: essential hypertension Qualified Code(s): I10 - Essential (primary) hypertension (5) Schizo affective schizophrenia: Start date: 01/04/20 Start time: 14:55 Status: Chronic Assessment and plan: Continue his home medications (6) GERD (gastroesophageal reflux disease): Start date: 01/04/20 Start time: 14:55 Status: Chronic Assessment and plan: Continue his home Protonix twice a day Qualifiers: Esophagitis presence: esophagitis presence not specified Qualified Code(s): K21.9 - Gastro-esophageal reflux disease without esophagitis (7) DVT prophylaxis: Start date: 01/04/20 Start time: 14:55 Status: Acute Assessment and plan: Continue home dose of apixaban (8) Discharge planning issues: Start date: 01/04/20 Start time: 14:55 Status: Acute Assessment and plan: He will be placed on SB status for antbx therapy when medically stable. Above case discussed with Dr. Chakraborty who is in agreement. Subjective Subjective Patient reports: no new complaints Interval history since last seen: Looks, well. Breathing good he states. Ambulatory around room. Spoke with patient regarding plan. Will change to oxacillin in setting of MSSA, will need 4-6 weeks of IV antibiotics for mssa bacteremia. Denies CP, SOB, N/V/D. Exam Narrative Exam Narrative: Elderly male walking around room. He is alert and oriented person place time circumstance. Lungs are clear to auscultation anteriorly posteriorly there is some diminished breath sounds at the right lung base but overall there is improved aeration. Heart regular rate and rhythm without murmur rub or gallop. Abdomen soft and nontender, nondistention. Extremities without peripheral cyanosis, or edema. Objective Objective Clinical Data: Abnormal lab results 01/04/20 01/04/20 01/04/20 Range/Units 09:12 09:12 09:12 WBC 22.36 H (4.4-10.8) k/cumm RBC 3.49 L (4.50-6.00) m/cumm Hgb 9.9 L (13.5-17.5) g/dL Hct 30.9 L (40.0-50.0) % RDW 17.6 H (11.8-14.1) % Absolute Neutrophils 18.18 H (1.2-6.7) k/cumm Absolute Monocytes 1.52 H (0.11-0.7) k/cumm BUN 21 H (7-18) mg/dL Glucose 232 H (74-106) mg/dL C-Reactive Protein 4.54 H (0.0-0.3) mg/dL Vancomycin Trough 23.3 H* (10.0-20.0) ug/mL Vital Signs Temperature 36.3 C L 04/06/20 08:37 Temperature Source Tympanic 01/04/20 08:37 Pulse 82 01/04/20 11:57 Pulse Rhythm Regular 01/04/20 09:00 Respiratory Rate 24 01/04/20 11:57 Respiratory Effort Non-Labored 01/04/20 09:00 Respiratory Depth Normal 01/04/20 09:00 Respiratory Pattern Normal 01/04/20 09:00 Blood Pressure 106/63 01/04/20 08:37 Blood Pressure Mean 93 12/24/19 19:50 Blood Pressure Position Supine 12/25/19 07:40 Pulse Oximetry 96 01/04/20 11:57 Oxygen Delivery Method OxyMask 01/04/20 11:44 Oxygen Flow Rate 1 01/04/20 11:44 Fraction of Inspired Oxygen (FIO2) 93 12/28/19 17:48 Pain Level 0 01/03/20 17:44 Comment 12/31/19 15:47 Intake & Output 01/03/20 01/04/20 01/04/20 23:59 11:59 23:59 Intake Total 1420 / 1920 480 / 480 Output Total 350 / 350 0 / 0 Balance 1070 / 1570 480 / 480 Intake: IV 500 / 500 Oral 920 / 1420 480 / 480 Output: Urine 350 / 350 0 / 0 Other: Urine Color Yellow Urine Appearance Clear Urine Odor None Comment voided independently in toilet Voiding Methods Urinal Laboratory Results WBC 22.36 k/cumm (4.4-10.8) H 01/04/20 09:12 RBC 3.49 m/cumm (4.50-6.00) L 01/04/20 09:12 Hgb 9.9 g/dL (13.5-17.5) L 01/04/20 09:12 Hct 30.9 % (40.0-50.0) L 01/04/20 09:12 MCV 88.5 fL (80-95) 01/04/20 09:12 MCH 28.4 pg (27.0-33.0) 01/04/20 09:12 MCHC 32.0 g/dL (32.0-36.0) 01/04/20 09:12 RDW 17.6 % (11.8-14.1) H 01/04/20 09:12 Plt Count 352 x1000/uL (130-400) 01/04/20 09:12 MPV 9.9 fL (8.0-11.0) 01/04/20 09:12 Immature Gran % 0.9 % 01/04/20 09:12 Neutrophils % 81.3 01/04/20 09:12 Band Neutrophils % 1.0 % 01/01/20 07:45 Lymphocytes % 10.0 01/04/20 09:12 Atypical Lymphs % 0 12/24/19 14:30 Monocytes % 6.8 01/04/20 09:12 Eosinophils % 1.0 01/04/20 09:12 Basophils % 0.0 01/04/20 09:12 Metamyelocytes % 2.0 % 01/01/20 07:45 Myelocytes % 2.0 % 12/31/19 06:50 Absolute Neutrophils 18.18 k/cumm (1.2-6.7) H 01/04/20 09:12 Absolute Lymphocytes 2.24 k/cumm (1.2-3.4) 01/04/20 09:12 Absolute Monocytes 1.52 k/cumm (0.11-0.7) H 01/04/20 09:12 Absolute Eosinophils 0.22 k/cumm (0.0-0.7) 01/04/20 09:12 Absolute Basophils 0.00 k/cumm (0.0-0.2) 01/04/20 09:12 Differential Comment Agrees w/ instrument 01/04/20 09:12 RBC Morphology See below 01/04/20 09:12 Polychromasia Present 12/30/19 08:35 Hypochromasia 1+ 12/31/19 06:50 Poikilocytosis 1+ 01/04/20 09:12 Anisocytosis 1+ 01/04/20 09:12 Macrocytosis 1+ 12/26/19 06:40 PT 10.8 sec (9.3-11.0) 12/24/19 14:30 INR 1.1 (0.9-1.1) 12/24/19 14:30 APTT 37.9 sec (21.0-31.4) H 12/24/19 14:30 Sodium 138 mmol/L (136-145) 01/04/20 09:12 Potassium 4.1 mmol/L (3.5-5.1) 01/04/20 09:12 Chloride 104 mmol/L (98-107) 01/04/20 09:12 Carbon Dioxide 26.2 mmol/L (21.0-32.0) 01/04/20 09:12 Anion Gap 7.8 mmol/L (3-11) 01/04/20 09:12 BUN 21 mg/dL (7-18) H 01/04/20 09:12 Creatinine 1.13 mg/dL (0.70-1.30) 01/04/20 09:12 Estimated GFR/1.73 m2 >= 60.00 (mL/min/1.73m2) 01/04/20 09:12 Glucose 232 mg/dL (74-106) H 01/04/20 09:12 Lactate 1.4 mmol/L (0.6-1.4) 12/27/19 06:05 Calcium 8.9 mg/dL (8.5-10.1) 01/04/20 09:12 Magnesium 2.1 mg/dL (1.8-2.4) 12/29/19 08:40 Total Bilirubin 0.4 mg/dL (0.2-1.0) 12/24/19 14:30 AST 13 U/L (15-37) L 12/24/19 14:30 ALT 22 U/L (16-63) 12/24/19 14:30 Alkaline Phosphatase 85 U/L (46-116) 12/24/19 14:30 Troponin I < 0.05 ng/Ml (<0.06) 12/25/19 00:50 C-Reactive Protein 4.54 mg/dL (0.0-0.3) H 01/04/20 09:12 NT-Pro-B Natriuret Pep 316 pg/mL (<300) H 12/24/19 14:30 Total Protein 7.6 g/dL (6.4-8.2) 12/24/19 14:30 Albumin 3.8 g/dL (3.4-5.0) 12/24/19 14:30 Procalcitonin 0.3 ng/mL 12/29/19 08:40 TSH 0.69 uIU/mL (0.36-3.74) 12/25/19 06:50 Vancomycin Trough 23.3 ug/mL (10.0-20.0) H* 01/04/20 09:12 Coronavirus (PCR) Not detected (NotDetected) 12/30/19 08:15 Ur Strep pneumoniae Ag Negative (Negative) 12/27/19 00:42
[2020-01-04] MEDS: Normal Saline Flush 10 ML SYR 20 ML IVP (20:23)
[2020-01-04] MEDS: Insulin Glargine 300 UNITS/3 ML PEN 13 UNITS SC (22:04)
[2020-01-04] MEDS: Simvastatin 20 MG TAB PO (22:22)
[2020-01-05] VITALS (7 sets, daily range): BP systolic 123–147; BP diastolic 79–81; PULSE 79–91; RESP 16–19; TEMP 36–36.8; O2SAT 86–98
[2020-01-05] MEDS: Normal Saline Flush 10 ML SYR IVP ×3 (04:07→11:49)
[2020-01-05 07:10] LABS: Abs Immature Grans 0.16 k/cumm (0.0-0.09); Absolute Basophil Count 0.01 k/cumm (0.0-0.2); Absolute Lymphocyte Count 2.63 k/cumm (1.2-3.4); Basophils % 0.1; Eosinophils % 1.6; HGB 9.2 g/dL (13.5-17.5); Immature Grans % 1.2 %; Lymphocytes % 19.6; Mean Corp. HGB Concentration 31.7 g/dL (32.0-36.0); Mean Corpuscular Volume 88.1 fL (80-95); Mean Platelet Volume 9.9 fL (8.0-11.0); Monocytes % 9.2; Neutrophils % 68.3; Platelet Count 368 x1000/uL (130-400); RBC 3.29 m/cumm (4.50-6.00); RBC Distribution Width 17.3 % (11.8-14.1); White Blood Cell Count 13.44 k/cumm (4.4-10.8)
[2020-01-05 07:13] LABS: Absolute Eosinophil Count 0.22 k/cumm (0.0-0.7); Absolute Monocyte Count 1.24 k/cumm (0.11-0.7); Absolute Neutrophil Count 9.18 k/cumm (1.2-6.7)
[2020-01-05 07:20] LABS: Anion Gap 7.1 mmol/L (3-11); BUN 19 mg/dL (7-18); CO2 27.9 mmol/L (21.0-32.0); CREATININE 1.01 mg/dL (0.70-1.30); Calcium 8.6 mg/dL (8.5-10.1); Chloride 106 mmol/L (98-107); Glucose 135 mg/dL (74-106); Potassium 4.2 mmol/L (3.5-5.1); Sodium 141 mmol/L (136-145)
[2020-01-05] MEDS: Insulin Aspart 300 UNITS/3 ML PEN SC ×5 (08:12→17:01)
[2020-01-05] MEDS: Insulin NPH-Human 300 UNITS/3 ML PEN 10 UNIT SC (08:12)
[2020-01-05] MEDS: Docusate Sodium 100 MG CAP PO (08:13)
[2020-01-05] MEDS: Folic Acid 1 MG TAB PO (08:13)
[2020-01-05] MEDS: predniSONE 20 MG TAB 10 MG PO (08:13)
[2020-01-05] MEDS: Apixaban 5 MG TAB PO ×2 (08:13→19:48)
[2020-01-05] MEDS: Magnesium Chloride 64 MG TABCR PO ×2 (08:13→19:48)
[2020-01-05] MEDS: Cyanocobalamin 500 MCG TAB 1000 MCG PO (08:13)
[2020-01-05] MEDS: Pantoprazole 40 MG TABCR PO ×2 (08:14→19:48)
[2020-01-05] MEDS: Normal Saline Flush 10 ML SYR 20 ML IVP ×2 (08:15→19:48)
[2020-01-05] MEDS: Multivitamin TAB 1 TAB PO (08:15)
[2020-01-05] MEDS: buPROPion-XL 150 MG TABCR 300 MG PO (08:15)
[2020-01-05] MEDS: Ferrous Gluconate 324 MG TAB PO (09:03)
[2020-01-05] MEDS: Mometasone 220 MCG 14 DOSE INHALER 2 PUFF IH ×2 (09:15→19:55)
--- NOTE | 2020-01-05 12:44 | PGE_ITS ---
Date of Service Date of service: 01/05/20 Time of Service: 10:30 Assessment and Plan Assessment and plan (1) MSSA bacteremia: Status: Acute Assessment and plan: afebrile and hemodynamically stable, Day , d/c vanco and place back on oxacillin for MSSA bacterima, cbc wBC 22.36 up from 14. 61, CRP 4.54 up from 2.02, though CRP can and will fluctuate during illness, ID [facility] recommends weekly labs, if no change in 5 days consider follow up call with ID. Afebrile. Echo with reduced EF 45-50%, no vegetation on leaflets however without ability to do SANJUANA will treat like endocarditis with antbx 4-6 weeks. (2) Pneumonia: Status: Acute Assessment and plan: resolved, respiratory status stable. Qualifiers: Laterality: right Lung location: lower lobe of lung Pneumonia type: due to unspecified organism Qualified Code(s): J18.9 - Pneumonia, unspecified organism (3) Non-insulin dependent type 2 diabetes mellitus: Status: Chronic Assessment and plan: continue diabetic diet, blood sugar checks with sliding scale coverage and scheduled lantus. (4) Hypertension: Status: Chronic Assessment and plan: blood pressures controlled, continue to monitor Qualifiers: Hypertension type: essential hypertension Qualified Code(s): I10 - Essential (primary) hypertension (5) Schizo affective schizophrenia: Status: Chronic Assessment and plan: stable on home meds (6) GERD (gastroesophageal reflux disease): Status: Chronic Assessment and plan: stable, Qualifiers: Esophagitis presence: esophagitis presence not specified Qualified Code(s): K21.9 - Gastro-esophageal reflux disease without esophagitis (7) DVT prophylaxis: Status: Acute Assessment and plan: continue apixaban (8) Discharge planning issues: Status: Acute Assessment and plan: will be discharged to SB for IV antibiotics when stable on current changed regimen Subjective Subjective Patient reports: no new complaints, tolerating a regular diet, voiding w/o difficulty, bowel movement and afebrile Exam Narrative Exam Narrative: Elderly male lying in bed watching TV in no distress. He is alert and oriented person place time circumstance. Lungs are clear to auscultation anteriorly posteriorly there is some diminished breath sounds at the right lung base but overall there is improved aeration. Heart regular rate and rhythm without murmur rub or gallop. Abdomen soft and nontender, nondistention. Extremities without peripheral cyanosis, or edema. Objective Objective Clinical Data: Abnormal lab results 01/05/20 01/05/20 Range/Units 06:34 06:34 WBC 13.44 H D (4.4-10.8) k/cumm RBC 3.29 L (4.50-6.00) m/cumm Hgb 9.2 L (13.5-17.5) g/dL Hct 29.0 L (40.0-50.0) % MCHC 31.7 L (32.0-36.0) g/dL RDW 17.3 H (11.8-14.1) % Absolute Neutrophils 9.18 H (1.2-6.7) k/cumm Absolute Monocytes 1.24 H (0.11-0.7) k/cumm BUN 19 H (7-18) mg/dL Glucose 135 H D (74-106) mg/dL Vital Signs Temperature 36.6 C 01/05/20 07:38 Temperature Source Temporal Artery Scan 01/05/20 07:38 Pulse 81 01/05/20 07:38 Pulse Rhythm Regular 01/05/20 08:15 Respiratory Rate 18 01/05/20 07:38 Respiratory Effort Non-Labored 01/05/20 08:15 Respiratory Depth Normal 01/05/20 08:15 Respiratory Pattern Normal 01/05/20 08:15 Blood Pressure 138/79 01/05/20 07:38 Blood Pressure Mean 93 12/24/19 19:50 Blood Pressure Position Supine 12/25/19 07:40 Pulse Oximetry 95 01/05/20 09:25 Oxygen Delivery Method Nasal Cannula 01/05/20 09:25 Oxygen Flow Rate 1 01/05/20 09:25 Fraction of Inspired Oxygen (FIO2) 93 12/28/19 17:48 Pain Level 0 01/05/20 07:38 Comment 01/05/20 00:00 Intake & Output 01/04/20 01/05/20 01/05/20 23:59 11:59 23:59 Intake Total 440 / 940 820 / 820 Output Total 250 / 600 350 / 350 Balance 190 / 340 470 / 470 Weight 63.6 kg Intake: IV 200 / 220 340 / 340 Oral 240 / 720 480 / 480 Output: Urine 250 / 600 350 / 350 Other: Urine Color Yellow Straw Urine Appearance Clear Clear Urine Odor Normal Normal Comment pt voids independently pt voids independently Voiding Methods Urinal Toilet Urinal Laboratory Results WBC 13.44 k/cumm (4.4-10.8) H D 01/05/20 06:34 RBC 3.29 m/cumm (4.50-6.00) L 01/05/20 06:34 Hgb 9.2 g/dL (13.5-17.5) L 01/05/20 06:34 Hct 29.0 % (40.0-50.0) L 01/05/20 06:34 MCV 88.1 fL (80-95) 01/05/20 06:34 MCH 28.0 pg (27.0-33.0) 01/05/20 06:34 MCHC 31.7 g/dL (32.0-36.0) L 01/05/20 06:34 RDW 17.3 % (11.8-14.1) H 01/05/20 06:34 Plt Count 368 x1000/uL (130-400) 01/05/20 06:34 MPV 9.9 fL (8.0-11.0) 01/05/20 06:34 Immature Gran % 1.2 % 01/05/20 06:34 Neutrophils % 68.3 01/05/20 06:34 Band Neutrophils % 1.0 % 01/01/20 07:45 Lymphocytes % 19.6 01/05/20 06:34 Atypical Lymphs % 0 12/24/19 14:30 Monocytes % 9.2 01/05/20 06:34 Eosinophils % 1.6 01/05/20 06:34 Basophils % 0.1 01/05/20 06:34 Metamyelocytes % 2.0 % 01/01/20 07:45 Myelocytes % 2.0 % 12/31/19 06:50 Absolute Neutrophils 9.18 k/cumm (1.2-6.7) H 01/05/20 06:34 Absolute Lymphocytes 2.63 k/cumm (1.2-3.4) 01/05/20 06:34 Absolute Monocytes 1.24 k/cumm (0.11-0.7) H 01/05/20 06:34 Absolute Eosinophils 0.22 k/cumm (0.0-0.7) 01/05/20 06:34 Absolute Basophils 0.01 k/cumm (0.0-0.2) 01/05/20 06:34 Differential Comment Agrees w/ instrument 01/04/20 09:12 RBC Morphology See below 01/04/20 09:12 Polychromasia Present 12/30/19 08:35 Hypochromasia 1+ 12/31/19 06:50 Poikilocytosis 1+ 01/04/20 09:12 Anisocytosis 1+ 01/04/20 09:12 Macrocytosis 1+ 12/26/19 06:40 PT 10.8 sec (9.3-11.0) 12/24/19 14:30 INR 1.1 (0.9-1.1) 12/24/19 14:30 APTT 37.9 sec (21.0-31.4) H 12/24/19 14:30 Sodium 141 mmol/L (136-145) 01/05/20 06:34 Potassium 4.2 mmol/L (3.5-5.1) 01/05/20 06:34 Chloride 106 mmol/L (98-107) 01/05/20 06:34 Carbon Dioxide 27.9 mmol/L (21.0-32.0) 01/05/20 06:34 Anion Gap 7.1 mmol/L (3-11) 01/05/20 06:34 BUN 19 mg/dL (7-18) H 01/05/20 06:34 Creatinine 1.01 mg/dL (0.70-1.30) 01/05/20 06:34 Estimated GFR/1.73 m2 >= 60.00 (mL/min/1.73m2) 01/05/20 06:34 Glucose 135 mg/dL (74-106) H D 01/05/20 06:34 Lactate 1.4 mmol/L (0.6-1.4) 12/27/19 06:05 Calcium 8.6 mg/dL (8.5-10.1) 01/05/20 06:34 Magnesium 2.0 mg/dL (1.8-2.4) 01/05/20 06:34 Total Bilirubin 0.4 mg/dL (0.2-1.0) 12/24/19 14:30 AST 13 U/L (15-37) L 12/24/19 14:30 ALT 22 U/L (16-63) 12/24/19 14:30 Alkaline Phosphatase 85 U/L (46-116) 12/24/19 14:30 Troponin I < 0.05 ng/Ml (<0.06) 12/25/19 00:50 C-Reactive Protein 4.54 mg/dL (0.0-0.3) H 01/04/20 09:12 NT-Pro-B Natriuret Pep 316 pg/mL (<300) H 12/24/19 14:30 Total Protein 7.6 g/dL (6.4-8.2) 12/24/19 14:30 Albumin 3.8 g/dL (3.4-5.0) 12/24/19 14:30 Procalcitonin 0.3 ng/mL 12/29/19 08:40 TSH 0.69 uIU/mL (0.36-3.74) 12/25/19 06:50 Vancomycin Trough 23.3 ug/mL (10.0-20.0) H* 01/04/20 09:12 Coronavirus (PCR) Not detected (NotDetected) 12/30/19 08:15 Ur Strep pneumoniae Ag Negative (Negative) 12/27/19 00:42
--- NOTE | 2020-01-05 13:20 | PDOC.CMPRO ---
Care Management Progress Note S/O: Koko is alert sitting up in his bed. Clement remains acute at this time, COVID- 19 result was negative. He continues to be treated with IV ABX. Per provider Elias is day of anti-staphyllococcal treatment for MSSA bacteremia/endocarditis. Pneumonia; oxygenation has improved, continued PRN bronchodilators and current antibiotic regimen. CM continues to follow. A: 64 year old male admitted to [facility] 12/24/19 for Pneumonia, D[place], Lactic Acidosis P: Elias continues to be closely monitored, anticipate he will transition to SB1 when medically ready, as soon as tomorrow; per MD. He will eventually return to [place] once the senior care IV ABX therapy is complete. CM continues to follow.
--- NOTE | 2020-01-05 13:34 | W.NUTRFU ---
Date of service: 01/05/20 Time of Service: 13:34 Nutritional Follow up NOTE: Clement continues on Diabetic Diet with adequate intake, typically 100% of meals. Decrease in weight observed, most likely due to fluid shifts. Not at risk for nutritional decline at this time. Time Spent in Nutritional Counseling and Treatment: 5 min spent face to face
--- NOTE | 2020-01-05 16:12 | CHAPLAIN ---
Koko is from [facility] and recently came out of isolation in Room 228. He was lying in bed, was pleasant and easily engaged in a conversation. He asked about having some custard, but when I checked, it was allowed at this time, without changing his dinner order.
[2020-01-05] MEDS: Simvastatin 20 MG TAB PO (21:20)
[2020-01-05] MEDS: Insulin Glargine 300 UNITS/3 ML PEN 13 UNITS SC (21:21)
[2020-01-06] MEDS: Normal Saline Flush 10 ML SYR IVP ×3 (00:18→12:24)
[2020-01-06 07:30] VITALS: BP 152/82; PULSE 78; RESP 17; TEMP 36.7; O2SAT 90
[2020-01-06] MEDS: Mometasone 220 MCG 14 DOSE INHALER 2 PUFF IH (08:07)
--- NOTE | 2020-01-06 08:57 | DSE_ITS ---
Date of service: 01/06/20 Time of Service: 08:58 DS: Diagnosis Discharge Diagnosis (1) MSSA bacteremia: Status: Acute (2) Pneumonia: Status: Acute (3) Non-insulin dependent type 2 diabetes mellitus: Status: Chronic (4) Hypertension: Status: Chronic (5) Schizo affective schizophrenia: Status: Chronic (6) GERD (gastroesophageal reflux disease): Status: Chronic Discharge Plan Disposition Patient Disposition: [facility] BED LEVEL 1 Condition: Stable Discharge Details Chief Complaint: SOB Clinical Impression: Pneumonia, DALLAS (acute kidney injury), Acidosis, lactic Reason For Visit: PNEUMONIA, D[place], LACTIC ACIDOSIS Admit Date/Time: 12/24/19 16:29 Admit Provider: Tian Chakraborty Attending Provider: Glynn Jimenez Primary Care Provider: Vinnie Black ED Provider: Armando Bailey Hospital Course Hospital Course: This is a 64-year-old male with a history of previous PE, essential hypertension, type 2 diabetes mellitus, previous pneumonia with lung abscess, schizoaffective disorder and GERD who presented the emergency department with complaints of shortness of breath. Patient lives in assisted living facility with other individuals with cognitive impairment and disabilities and reportedly lives with people who have had influenza. Patient himself is been on Tamiflu for 10 days. He was diagnosed with bilateral pneumonia and placed on vancomycin and cefepime and admitted to the respiratory care ICU pending COVID-19 results. COVID-19 was ultimately negative. His blood cultures grew MSSA and he was downstepped to oxicillin. [place] [facility] [place] and recommended continuing treatment with weekly labs to monitor. he has been afebrile and hemodynamically stable. He underwent an echo that showed reduced EF 45-50%, no vegetation on leaflets however without ability to do SANJUANA will treat like endocarditis with antbx for 6 weeks. his respiratory status has returned to baseline, he is oxygenating well on room air, hemodynamically stable He is eating and drinking and bowels and bladder functioning well. he will be discharged to [facility] to complete 6 weeks of IV antibiotics. His last positive blood culture was on December 25, he had a negative blood culture on December 28, 2019. Home Meds and New Rx's Prescriptions: No Action ferrous gluconate 324 mg (38 mg iron) tablet 324 mg PO DAILY RF: 0 pioglitazone [Actos] 30 mg tablet 30 mg PO DAILY RF: 0 simvastatin 20 mg tablet 20 mg PO QHS RF: 0 Anoro Ellipta 62.5-25 mcg/actuation blister with device 1 inh IH DAILY RF: 0 bupropion HCl [Wellbutrin XL] 300 mg tablet extended release 24 hr 300 mg PO QAM RF: 0 calcium carbonate 200 mg calcium (500 mg) Tablet,Chewable 500 mg PO TID PRN PRNQty: 0 RF: 0 alum-mag hydroxide-simeth [Mag-Al Plus] 200-200-20 mg/5 mL Suspension 30 ml PO Q2H PRN PRNQty: 0 RF: 0 metformin 500 mg Tablet 1,500 mg PO DAILY Qty: 90 RF: 0 Eliquis 5 mg Tablet 5 mg PO BID Qty: 60 RF: 0 multivitamin [Multiple Vitamins] Tablet 1 tab PO DAILY Qty: 30 RF: 0 cyanocobalamin (vitamin B-12) [Vitamin B-12] 500 mcg Tablet 1,000 mcg PO DAILY Qty: 60 RF: 0 pantoprazole 40 mg Tablet,Delayed Release (Dr/Ec) 40 mg PO BID@729,1999 Qty: 30 RF: 0 docusate sodium [Colace] 100 mg Capsule 100 mg PO DAILY Qty: 30 RF: 0 folic acid 1 mg Tablet 1 mg PO DAILY Qty: 30 RF: 0 magnesium chloride [Mag 64] 64 mg Tablet,Delayed Release (Dr/Ec) 64 mg PO BID Qty: 30 RF: 0 metformin 1,000 mg Tablet 1,000 mg PO .QHS RF: 0 ziprasidone HCl [Geodon] 80 MG capsule 160 mg PO .QHS RF: 0 ziprasidone HCl [Geodon] 80 MG capsule 80 mg PO DAILY RF: 0 clozapine [Clozaril] 100 MG tablet 200 mg PO DAILY RF: 0 clozapine [Clozaril] 100 MG tablet 375 mg PO .QHS RF: 0 acetaminophen [Mapap Extra Strength] 500 MG tablet 1,000 mg PO .Q8HRS RF: 0 Flovent HFA 120 PUFF HFA aerosol inhaler 2 puff Inhalation BID RF: 0 Discharge Instructions Instructions: Bacteremia (DC) Activity:: Activity as Tolerated Equipment/Supplies:: No Equipment Needed Diet:: Carb Counting Discharge Orders Discharge Orders: Discharge Order (Routine); Ordered 01/06/20 Ordered By: Sarai Hatfield Discharge Data Discharge Date/Time-TO BE ENTERED AT DEPARTURE: 01/06/20 10:19 DS: Summary Status at Discharge Functional status at discharge: independent ambulation Overall status at discharge: patient is back to baseline Mental Status: mental status grossly normal Speech and Movement: speech and movement normal Mood: congruent mood Affect: normal affect Exam Narrative Exam Narrative: Elderly male in no distress. pink warm dry and well perfused. Neuro He is alert and oriented person place time circumstance. Lungs are clear to auscultation anteriorly posteriorly there is some diminished breath sounds at the right lung base but overall there is improved aeration. Heart regular rate and rhythm without murmur rub or gallop. Abdomen soft and nontender, nondistention. Extremities without peripheral cyanosis, or edema. psyche: normal mood and affect, appropriate Psych Mental Status: mental status grossly normal Speech and Movement: speech and movement normal Mood: congruent mood Affect: normal affect DS: Data Vitals/I&O Vitals and I&O: Vital Signs Temperature 36.7 C 01/06/20 07:30 Temperature Source Temporal Artery Scan 01/06/20 07:30 Pulse 78 01/06/20 07:30 Pulse Rhythm Regular 01/06/20 03:56 Respiratory Rate 17 01/06/20 07:30 Respiratory Effort Non-Labored 01/06/20 03:56 Respiratory Depth Normal 01/06/20 03:56 Respiratory Pattern Normal 01/06/20 03:56 Blood Pressure 152/82 H 01/06/20 07:30 Blood Pressure Mean 93 12/24/19 19:50 Blood Pressure Position Supine 12/25/19 07:40 Pulse Oximetry 90 L 01/06/20 07:30 Oxygen Delivery Method Room Air 01/06/20 07:30 Oxygen Flow Rate 0 01/06/20 07:30 Fraction of Inspired Oxygen (FIO2) 93 12/28/19 17:48 Pain Level 0 01/06/20 07:30 Comment 01/05/20 00:00 Intake & Output 01/05/20 01/05/20 01/06/20 11:59 23:59 11:59 Intake Total 820 / 1360 540 / 1360 200 / 200 Output Total 350 / 350 Balance 470 / 1010 540 / 1010 200 / 200 Weight 63.6 kg 64.1 kg Intake: IV 340 / 640 300 / 640 200 / 200 Oral 480 / 720 240 / 720 Output: Urine 350 / 350 Other: Urine Color Straw Yellow Urine Appearance Clear Clear Clear Urine Odor Normal None Comment pt voids independently pt denies any urinary issues Voiding Methods Toilet Urinal Data Completed and Pending Labs on day of discharge: Preliminary micro results at discharge 01/01/20 07:40 Blood Culture - Preliminary Blood NO GROWTH 96 HOURS [facility] Medical History (Updated 12/29/19 @ 18:49 by Tian Chakraborty) Acute thrombosis of right basilic vein (Inactive) Complication associated with peripherally inserted central catheter (PICC) (Inactive) COPD (chronic obstructive pulmonary disease) (Chronic) Diabetes mellitus (Chronic) GERD (gastroesophageal reflux disease) (Chronic) H/O schizophrenia (Acute) H/O: CVA (cerebrovascular accident) (Acute) Hypertension (Chronic) Non-insulin dependent type 2 diabetes mellitus (Chronic) Oropharyngeal dysphagia (Acute) Pulmonary emboli (Inactive) Schizo affective schizophrenia (Chronic) Family History Mother No problems noted. Social History Smoking/Tobacco Use Status: Former Tobacco Use Tobacco: How many years used: 43 Alcohol Intake: former Drug use: Occasionally Substance use type: marijuana Do you feel safe at home: Yes Do you feel safe in your relationship?: Yes
[2020-01-06] MEDS: buPROPion-XL 150 MG TABCR 300 MG PO (09:01)
[2020-01-06] MEDS: Magnesium Chloride 64 MG TABCR PO (09:01)
[2020-01-06] MEDS: Docusate Sodium 100 MG CAP PO (09:02)
[2020-01-06] MEDS: Cyanocobalamin 500 MCG TAB 1000 MCG PO (09:02)
[2020-01-06] MEDS: Pantoprazole 40 MG TABCR PO (09:02)
[2020-01-06] MEDS: predniSONE 20 MG TAB 10 MG PO (09:02)
[2020-01-06] MEDS: Apixaban 5 MG TAB PO (09:02)
[2020-01-06] MEDS: Multivitamin TAB 1 TAB PO (09:02)
[2020-01-06] MEDS: Folic Acid 1 MG TAB PO (09:02)
[2020-01-06] MEDS: Insulin NPH-Human 300 UNITS/3 ML PEN 10 UNIT SC (09:03)
[2020-01-06] MEDS: Normal Saline Flush 10 ML SYR 20 ML IVP (09:03)
[2020-01-06] MEDS: Insulin Aspart 300 UNITS/3 ML PEN SC ×2 (09:07→12:24)
--- NOTE | 2020-01-06 10:46 | PT.INIE ---
Date of service: 01/06/20 Time of Service: 10:25 PT Notes Visit Reasons: PNEUMONIA, DALLAS, LACTIC ACIDOSIS Inpatient Physical Therapy Evaluation Date: January 06, 2020 Referring Doctor: Sarai Hatfield PT Orders: PT CONSULT: Evaluate and treat Precautions: Standard Patient Profile/Admitting Diagnosis: Patient is a 64-year-old male with a history of previous PE, essential hypertension, type 2 diabetes mellitus, previous pneumonia with lung abscess, schizoaffective disorder and GERD who presented the emergency department with complaints of shortness of breath on 12/24/2019. Patient swing bed status for IV antibiotic for the next 6 weeks. PMHX: Acute thrombosis of right basilic vein (Inactive) Complication associated with peripherally inserted central catheter (PICC) (Inactive) COPD (chronic obstructive pulmonary disease) (Chronic) Diabetes mellitus (Chronic) GERD (gastroesophageal reflux disease) (Chronic) H/O schizophrenia (Acute) H/O: CVA (cerebrovascular accident) (Acute) Hypertension (Chronic) Non-insulin dependent type 2 diabetes mellitus (Chronic) Oropharyngeal dysphagia (Acute) Pulmonary emboli (Inactive) Schizo affective schizophrenia (Chronic) Social History/Home Situation: Patient lives in assisted living facility with other individuals with cognitive impairment and disabilities in [facility]. He reports I at baseline, unsure if he utilizes an assistive device. He notes that he shovels the walkways at his home prior to admission. Current Functional Limitations: None Equipment Owned/DME: Lives in assisted living facility which provides all necessary equipment Subjective: Koko reports he is feeling much better. He declines any pain. He is agreeable to PT consultation this morning. Objective: General Observation: Up seated bedside and dressed upon entering patients room for evaluation Mental Status: Alert and orientedx3 Pain: 0/10 Vital Signs: N/T ROM: Right Upper Extremity: WNL Left Upper Extremity: WNL Right Lower Extremity: WNL Left Lower Extremity: WNL Strength: Right Upper Extremity: 5/5 Left Upper Extremity: 5/5 Right Lower Extremity: 5/5 Left Lower Extremity: 5/5 Sensation: N/T Bed Mobility/Transfers: Rolling: I Supine to sit: I Sit to supine: I Sit to stand: I Stand to sit: I Bed to chair: I Chair to bed: I Gait: I without assistive device [id number] Balance: Static Sitting: Normal Dynamic Sitting: Normal Static Standing: Normal Dynamic Standing: Good Special Tests: Mobility Limitations Standardized Measure [facility] AM-PAC 6 clicks Basic Mobility Inpatient Short Form: Raw Score: 24 Standardized Score: 61.14 CMS Score: 0% CMS Modifier: CH Informed Consent/Education: Patient instructed in purpose of PT consult and plan of care. Assessment: Patient is a 64 year old male referred to physical therapy services with the diagnosis of history of previous PE, essential hypertension, type 2 diabetes mellitus, previous pneumonia with lung abscess, schizoaffective disorder and GERD who presented the emergency department with complaints of shortness of breath on 12/24/2019. Patient presents with clinical signs and symptoms consistent with diagnosis, however currently presents with full ROM, good functional strength, good balance, and nonantalgic gait without assistive device. Currently does not require skilled therapy services at this time due to level of independence. Patient is assessed as a Low 46898 complexity based on the following: History: As above Examination: As above Presentation: Low Decision Making: Stable Plan of Care/Treatment Plan: PT consult only. Discharge from PT services due to level of independence. DISCHARGE RECOMMENDATIONS: Return to assisted living post discharge TREATMENT CODE/TIME: 78690 15 minutes, 10:25 DANIELE Mercado
--- NOTE | 2020-01-06 10:47 | OT.INIE ---
Occupational Therapy Notes Inpatient Swing Bed 1Occupational Therapy Evaluation Date: 01/06/20 Referring Doctor: Sarai Hatfield NP OT Orders: Non-Urgent Precautions: Fall, Standard, DNR/DNI PATIENT PROFILE/ADMITTING DIAGNOSIS: Pt is a 64 year old male who presented to the ER on 12/24/19 for Pneumonia, DALLAS (acute kidney injury), Acidosis, lactic. He was admitted to [facility] for hx of PE, essential hypertension, type 2 DM, previous pneumonia with lung abscess, schizoaffective disorder and GERD. Patient s currently Swing bed 1 status for IV antibiotic for the next 6 weeks. Past Medical History- Acute thrombosis of right basilic vein (Inactive) Complication associated with peripherally inserted central catheter (PICC) (Inactive) COPD (chronic obstructive pulmonary disease) (Chronic) Diabetes mellitus (Chronic) GERD (gastroesophageal reflux disease) (Chronic) H/O schizophrenia (Acute) H/O: CVA (cerebrovascular accident) (Acute) Hypertension (Chronic) Non-insulin dependent type 2 diabetes mellitus (Chronic) Oropharyngeal dysphagia (Acute) Pulmonary emboli (Inactive) Schizo affective schizophrenia (Chronic) Social History/Home Situation: Pt is a resident at [facility] in [place], [place]. He reports that he has (A) with his functional ADLs/IADLs as needed for baseline. He states that he shovels the driveway in the winter and they (A) with meals, laundry and provides (A) as needed. He notes that he is (I) at baseline and does not require (A) in his day to day routine. Equipment owned/DME: Lives in [facility] which provides all DME needs. SUBJECTIVE: Pt was sitting on side of bed fully dressed when OT arrived. He was agreeable to OT consult. OBJECTIVE: General Observation: Pleasant Mental Status: A&Ox2 Pain: No c/o pain. ROM: RUE AROM WNL L UE AROM WNL STRENGTH: RUE 5/5 throughout globally LUE 5/5 throughout globally FUNCTIONAL MOBILITY/ADLS: Transfers no assistive device Supine-sit (I) Sit-supine (I) Sit-Stand (I) Stand-sit (I) Bed-Chair (I) Chair-bed (I) BATHING Performed (I) prior to OT arrival. DRESSING Dressing UE (I) don and doffing personal shirt with buttons. Dressing LE (I) don and doffing (B) socks and pants. GROOMING Pt reports that he brushes his teeth at night time only and is (I). TOILETING (I) on toilet. EATING Pt reports that he is (I) with no issues. BALANCE: Static sitting Normal Dynamic Sitting Normal Static Standing Normal Dynamic Standing Normal SPECIAL TESTS: Daily Activity Limitations Standardized Measure [facility] AM -PAC ?6 clicks? Daily Activity Inpatient Short Form: Raw score: 24 Standardized score: 57.54 CMS score: 0.00% INFORMED CONSENT/EDUCATION: Pt instructed in purpose of OT Consult and plan of care. ASSESSMENT: Patient is a 64-year-old male referred to occupational therapy services with diagnosis of Pneumonia, DALLAS (acute kidney injury), Acidosis, lactic. Pt was seen for OT consult only. He was able to demonstrate his ADLs/IADLs in both sitting and standing with ideal technique and no vc provided. He is demonstrating ideal balance in both sitting and standing. Based on pts current level of function and functional (I) OT will plan to discharge pt from skilled OT services at this time as pt is at his baseline level of function. [facility] score 24 Patient is assessed as a Low 59355 complexity based on the following: History: See above Examination: see above Presentation: Evolving Decision Making: AMOAC score 24 GOALS Pt was seen for OT consult only. PLAN OF CARE/TREATMENT PLAN: OT consult only. DISCHARGE RECOMMENDATIONS OT recommends that pt return to [facility] when medically cleared per MD. TREATMENT TIME/MINUTES/CODES 74446, 10 minutes (10:30) Hillary Sams OTR/L [facility]
[2020-01-06] MEDS: Ferrous Gluconate 324 MG TAB PO (10:51)
--- NOTE | 2020-01-06 16:19 | CMPROGNOTE_ITS ---
Care Management Progress Note Elias transitioned to [facility] today. Plan remains for Elias to return to [facility] once the detention IV ABX therapy is complete.
--- NOTE | 2020-01-06 16:19 | PDOC.CMPRO ---
Care Management Progress Note Elias transitioned to [facility] today. Plan remains for Elias to return to [facility] once the residential IV ABX therapy is complete.
== END 2020-01-06 10:19 | disposition swing bed (61) | DRG 871 ==
LOC: ER 18:21 → RMS 19:22 → MS 12-31 12:16 → RMS 01-07 10:05 → RCU 01-07 10:05
PROVIDERS: Internal Medicine; Nurse Practitioner Family; Admitting Provider Internal Medicine; Emergency Provider Emergency Medicine; PCP Specialist/Technologist Athletic Trainer; Visit Provider Family Medicine
DX: R78.81 Bacteremia (principal); J18.1 Lobar pneumonia, unspecified organism; I33.0 Acute and subacute infective endocarditis; N17.9 Acute kidney failure, unspecified; J44.0 Chronic obstructive pulmonary disease with (acute) lower respiratory infection; E87.2 Acidosis; B95.61 Methicillin susceptible Staphylococcus aureus infection as the cause of diseases classified elsewhere; Z03.818 Encounter for observation for suspected exposure to other biological agents ruled out; R09.02 Hypoxemia; E11.9 Type 2 diabetes mellitus without complications; I10 Essential (primary) hypertension; F25.9 Schizoaffective disorder, unspecified; K21.9 Gastro-esophageal reflux disease without esophagitis; Z87.891 Personal history of nicotine dependence; Z79.01 Long term (current) use of anticoagulants; K59.00 Constipation, unspecified; Z79.84 Long term (current) use of oral hypoglycemic drugs; D53.9 Nutritional anemia, unspecified
CPT/HCPCS: 36410; 36415; 36569; 71275; 80048; 80053; 84145; 87040; 87077; 87449; 93005; 93306; 94640; 96361; 96365; 96367; 96368; 96375; 97161; 99223; 99232; 99233; 99239; 99285; U0003; 80202; 83605; 83735; 83880; 84443; 84484; 85025; 85610; 85730; 86140; 87070; 87186; 87205; 87450; 93010; 99356; J2700; J2930; J3370; J3490; J7512; J7613; J7620

== ENCOUNTER 2019-12-24 17:51 | Outpatient (REF) | payer MEDICARE, MEDICAID, SELFPAY | END 2019-12-24 18:11 | LOC: NCHCN 17:51 | PROVIDERS: PCP Specialist/Technologist Athletic Trainer; Visit Provider Nurse Practitioner Family | DX: Z20.828 Contact with and (suspected) exposure to other viral communicable diseases (principal) | CPT/HCPCS: U0003 ==

== ENCOUNTER 2020-01-06 10:19 | Inpatient (IN) | payer MEDICARE, MEDICAID, SELFPAY ==
--- NOTE | 2020-01-06 10:13 | HPE_ITS ---
Date of service: 01/06/20 Time of Service: 10:13 Assessment and Plan Assessment and plan (1) MSSA bacteremia: Status: Acute Assessment and plan: afebrile and hemodynamically stable, Day , on oxacillin for MSSA bacterima based on cultures, ID [facility] recommends weekly labs, will order for Mondays, i Echo with reduced EF 45-50%, no vegetation on leaflets however without ability to do SANJUANA will treat like endocarditis with antbx 4-6 weeks. (2) Non-insulin dependent type 2 diabetes mellitus: Status: Chronic Assessment and plan: continue diabetic diet, blood sugar checks with sliding scale coverage and scheduled lantus. (3) Hypertension: Status: Chronic Assessment and plan: blood pressures controlled, continue to monitor Qualifiers: Hypertension type: essential hypertension Qualified Code(s): I10 - Essential (primary) hypertension (4) GERD (gastroesophageal reflux disease): Status: Chronic Assessment and plan: stable Qualifiers: Esophagitis presence: esophagitis presence not specified Qualified Code(s): K21.9 - Gastro-esophageal reflux disease without esophagitis (5) Discharge planning issues: Status: Acute Assessment and plan: will be admitted to for IV antibiotics when stable on current changed regimen History of Present Illness History of Present Illness Chief Complaint: bacteremia Narrative: This is a 64-year-old male with a history of previous PE, essential hypertension, type 2 diabetes mellitus, previous pneumonia with lung abscess, schizoaffective disorder and GERD who presented the emergency department with complaints of shortness of breath. Patient lives in assisted living facility with other individuals with cognitive impairment and disabilities and reportedly lives with people who have had influenza. Patient himself is been on Tamiflu for 10 days. He was diagnosed with bilateral pneumonia and placed on vancomycin and cefepime and admitted to the respiratory care ICU pending COVID-19 results. COVID-19 was ultimately negative. His blood cultures grew MSSA and he was downstepped to oxicillin. ID at [facility] was consulted and recommended continuing treatment with weekly labs to monitor. he has been afebrile and hemodynamically stable. He underwent an echo that showed reduced EF 45-50%, no vegetation on leaflets however without ability to do SANJUANA will treat like endocarditis with antbx for 6 weeks. his respiratory status has returned to baseline, he is oxygenating well on room air, hemodynamically stable He is eating and drinking and bowels and bladder functioning well. he will be discharged to [facility] care to complete 6 weeks of IV antibiotics. His last positive blood culture was on December 25, he had a negative blood culture on December 28, 2019. Review of Systems Constitutional Constitutional: Denies fatigue and Denies fever(s) Eyes Eyes: Denies change in vision Cardiovascular Cardiovascular: Denies chest pain and Denies dyspnea Respiratory Respiratory: Denies chest congestion, Reports cough (improved) and Denies dyspnea Gastrointestinal Gastrointestinal: Denies abdominal pain, Denies constipation, Denies diarrhea and Denies nausea Musculoskeletal Musculoskeletal: Denies myalgias and Denies muscle weakness Neurologic Neurologic: Denies behavioral changes Psychiatric Psychiatric: Denies behavioral changes Endocrine Endocrine: Denies fatigue [facility] Medical History (Updated 12/29/19 @ 18:49 by Tian Chakraborty) Acute thrombosis of right basilic vein (Inactive) Complication associated with peripherally inserted central catheter (PICC) (Inactive) COPD (chronic obstructive pulmonary disease) (Chronic) Diabetes mellitus (Chronic) GERD (gastroesophageal reflux disease) (Chronic) H/O schizophrenia (Acute) H/O: CVA (cerebrovascular accident) (Acute) Hypertension (Chronic) Non-insulin dependent type 2 diabetes mellitus (Chronic) Oropharyngeal dysphagia (Acute) Pulmonary emboli (Inactive) Schizo affective schizophrenia (Chronic) Social History Smoking/Tobacco Use Status: Former Tobacco Use Tobacco: How many years used: 43 Alcohol Intake: former Drug use: Occasionally Substance use type: marijuana Do you feel safe at home: Yes Do you feel safe in your relationship?: Yes Meds Home Medications and Allergies Home Medications Medication Instructions Recorded Confirmed Type Flovent HFA 2 puff INHALATION BID 06/18/17 01/06/20 History acetaminophen [Mapap Extra 1,000 mg PO .Q8HRS 06/18/17 01/06/20 History Strength] clozapine [Clozaril] 200 mg PO DAILY 06/18/17 01/06/20 History clozapine [Clozaril] 375 mg PO .QHS 06/18/17 01/06/20 History ziprasidone HCl [Geodon] 80 mg PO DAILY 06/18/17 01/06/20 History ziprasidone HCl [Geodon] 160 mg PO .QHS 06/18/17 01/06/20 History alum-mag hydroxide-simeth [Mag-Al 30 ml PO Q2H PRN PRN #0 ml 12/05/18 01/06/20 Rx Plus] calcium carbonate 500 mg PO TID PRN PRN #0 tab 12/05/18 01/06/20 Rx Eliquis 5 mg PO BID #60 tab 01/23/19 01/06/20 Rx cyanocobalamin (vitamin B-12) 1,000 mcg PO DAILY #60 tab 01/23/19 01/06/20 Rx [Vitamin B-12] docusate sodium [Colace] 100 mg PO DAILY #30 cap 01/23/19 01/06/20 Rx folic acid 1 mg PO DAILY #30 tab 01/23/19 01/06/20 Rx magnesium chloride [Mag 64] 64 mg PO BID #30 tab 01/23/19 01/06/20 Rx metformin 1,500 mg PO DAILY #90 tab 01/23/19 01/06/20 Rx multivitamin [Multiple Vitamins] 1 tab PO DAILY #30 tab 01/23/19 01/06/20 Rx pantoprazole 40 mg PO BID@0730,2000 #30 tab 01/23/19 01/06/20 Rx bupropion HCl 300 mg 24 hr tablet, 300 mg PO QAM 08/14/19 12/24/19 History extended release ferrous gluconate 324 mg (38 mg 324 mg PO DAILY 08/14/19 01/06/20 History iron) tablet pioglitazone 30 mg tablet 30 mg PO DAILY 08/14/19 01/06/20 History simvastatin 20 mg tablet 20 mg PO QHS 08/14/19 01/06/20 History umeclidinium 62.5 mcg-vilanterol 1 inh IH DAILY 08/14/19 01/06/20 History 25 mcg/actuation powdr for inhalation metformin 1,000 mg PO .QHS 12/24/19 01/06/20 History Allergies Allergy/AdvReac Type Severity Reaction Status Date / Time No Known Allergies Allergy Unverified 12/24/19 14:45 Exam Narrative Exam Narrative: Elderly male in no distress. pink warm dry and well perfused. Neuro He is alert and oriented person place time circumstance. Lungs are clear to auscultation anteriorly posteriorly there is some diminished breath sounds at the right lung base but overall there is improved aeration. Heart regular rate and rhythm without murmur rub or gallop. Abdomen soft and nontender, nondistention. Extremities without peripheral cyanosis, or edema. psyche: normal mood and affect, appropriate COVID-19 Screening [place]ed to [facility] from one of the affected countries or regions?: N
--- NOTE | 2020-01-06 13:53 | NUR.NOTE ---
Nursing Note: 01/06/20- Pt went to swing bed status from acute status on 01/06/20. He remains in room 215. VSS. LS with scant crackles in r base. Occasional cough noted. Afebrile. Postive bs, pt denies pain. Pt up independantly.
[2020-01-06] MEDS: Normal Saline Flush 10 ML SYR IVP ×2 (15:52→23:33)
--- NOTE | 2020-01-06 16:35 | CMSA_ITS ---
- If Service Date Differs Date of service: 01/06/20 Time of Service: 16:41 SB Psychosocial/Act.Assessment - Hospital Admission Admission Date: 12/24/19 Admission From:: Community Diagnosis:: Pnemonia, DALLAS, Lactic Acidosis - Swing Bed Admission Swing Bed Admit Date:: 01/06/20 Swing Bed Level of Care: Level 1/SNF - Social Supports PREVIOUS FUNCTIONAL STATUS/SOCIAL/FAMILY SUPPORTS:: Clepamella resides at [facility] assisted living. His mental health services are managed by [facility] and the [facility] program. He states he is independent with some ADL?s and does not use ambulatory aids. He is dependent on [facility] for medication management, transportation, and meals. - Prior to Admission Living Arrangements/Environment Prior to Admission:: [facility], mental health services are managed by [facility] and the [facility] program. He states he is independent with some ADL?s and does not use ambulatory aids. He is dependent on [facility] for medication management, transportation, and meals. - Work History Employment Status:: Disabled - : No [place]'s Spouse: No - Benefits Financial: Medicare, Medicaid - [employer] Active Christianity Member:: No Will Christianity Members or Decorating Instructor Visit:: No - Advance Directives for Healthcare Advance Directives for Healthcare: Advance Directives Advance Directive Agent: On file at [facility]; Sarai De La Fuente as agent. Annette Marrero as alternate. - Present Functional Status Physical Abilities:: Ambulates independently. Cognitive:: Delayed Communication:: Appropriate Behavior:: Appropriate - Medical History PAST MEDICAL HISTORY/PAST SURGICAL HISTORY:: Acute thrombosis of right basilic vein, complication associated with perpherally inserted central catheter (PICC), COPD, DM2, GERD, schizophrenia, CVA, hypertension, oropharyngeal dysphagia, PE, schizo affective schizophrenia. Past Psychiatric Treatment:: [facility] - Admission Data Reason for Swing Bed Admission:: Retirement IV ABX Therapy Discharge Plan:: Return to [facility] once medically clear. Assessment: Day , on oxacillin for MSSA bacterima based on cultures, ID@[facility] recommends weekly labs, will order for Mondays. Echo with reduced EF 45-50%, no vegetation on leaflets however without ability to do SANJUANA will treat like endocarditis with antbx 4-6 weeks; per .
--- NOTE | 2020-01-06 16:41 | CM.SWINGPC ---
- If Service Date Differs Date of service: 01/06/20 Time of Service: 16:41 Swingbed Plan of Care Plan of care: SWING BED PROGRAM ACTIVITIES/DISCHARGE PLAN OF CARE ACTIVITIES PLAN Date: 01/06/20 Identified Need: Enrichment activities during prolonged hospitalization. Intervention/Plan: Activities CART, plant, tele visits with prison, laptop, exercise, etc. Initials: [facility] DISCHARGE PLAN Date: Identified Need: PER MD: Day , on oxacillin for MSSA bacterima based on cultures, ID [facility] recommends weekly labs, will order for Mondays, Echo with reduced EF 45-50%, no vegetation on leaflets however without ability to do SANJUANA will treat like endocarditis with antbx 4-6 weeks. Intervention/Plan: L/T IV ABX per [facility] ID protocol as above. Initials: [facility]MAR
[2020-01-06] MEDS: Insulin Aspart 300 UNITS/3 ML PEN SC (17:28)
[2020-01-06] MEDS: Mometasone 220 MCG 14 DOSE INHALER 2 PUFF IH (19:58)
[2020-01-06] MEDS: Pantoprazole 40 MG TABCR PO (19:59)
[2020-01-06] MEDS: Magnesium Chloride 64 MG TABCR PO (19:59)
[2020-01-06] MEDS: Normal Saline Flush 10 ML SYR 20 ML IVP (20:07)
[2020-01-06] MEDS: Apixaban 5 MG TAB PO (20:09)
[2020-01-06 20:30] VITALS: BP 154/78; PULSE 86; RESP 16; TEMP 36.2; O2SAT 96
[2020-01-06] MEDS: Insulin Glargine 300 UNITS/3 ML PEN 13 UNITS SC (21:24)
[2020-01-06] MEDS: Simvastatin 20 MG TAB PO (21:25)
[2020-01-07] MEDS: Normal Saline Flush 10 ML SYR IVP ×2 (03:58→12:05)
[2020-01-07 07:46] VITALS: BP 139/79; PULSE 82; RESP 18; TEMP 36.5; O2SAT 93
[2020-01-07] MEDS: Multivitamin TAB 1 TAB PO (08:14)
[2020-01-07] MEDS: Folic Acid 1 MG TAB PO (08:14)
[2020-01-07] MEDS: predniSONE 10 MG TAB PO (08:14)
[2020-01-07] MEDS: Apixaban 5 MG TAB PO ×2 (08:14→21:01)
[2020-01-07] MEDS: Docusate Sodium 100 MG CAP PO (08:15)
[2020-01-07] MEDS: Cyanocobalamin 500 MCG TAB 1000 MCG PO (08:15)
[2020-01-07] MEDS: Pantoprazole 40 MG TABCR PO ×2 (08:15→21:05)
[2020-01-07] MEDS: buPROPion-XL 150 MG TABCR 300 MG PO (08:15)
[2020-01-07] MEDS: Normal Saline Flush 10 ML SYR 20 ML IVP ×2 (08:16→21:03)
[2020-01-07] MEDS: Magnesium Chloride 64 MG TABCR PO ×2 (08:16→21:01)
[2020-01-07] MEDS: Insulin NPH-Human 300 UNITS/3 ML PEN 10 UNIT SC (08:18)
[2020-01-07] MEDS: Insulin Aspart 300 UNITS/3 ML PEN SC ×4 (08:18→16:59)
[2020-01-07] MEDS: Mometasone 220 MCG 14 DOSE INHALER 2 PUFF IH ×2 (09:16→21:02)
[2020-01-07] MEDS: Ferrous Gluconate 324 MG TAB PO (12:04)
--- NOTE | 2020-01-07 15:01 | PDOC.CMACT ---
Care Management Activity Note CONCHIS met with Koko to review activities program and opportunities. Koko reported he only likes to walk and watch TV. He reported walking through the hallways yesterday, and was unable to identify anything else that he would like offered. CONCHIS reviewed options which Koko declined. He was quite pleasant in interaction, just uninterested in additional activities.
[2020-01-07] MEDS: Simvastatin 20 MG TAB PO (22:25)
[2020-01-07] MEDS: Insulin Glargine 300 UNITS/3 ML PEN 13 UNITS SC (22:39)
[2020-01-08] MEDS: Normal Saline Flush 10 ML SYR IVP (06:06)
[2020-01-08 07:35] VITALS: BP 127/79; PULSE 82; RESP 18; TEMP 36.6; O2SAT 94
[2020-01-08] MEDS: Mometasone 220 MCG 14 DOSE INHALER 2 PUFF IH ×2 (07:41→20:01)
[2020-01-08] MEDS: Insulin Aspart 300 UNITS/3 ML PEN SC ×6 (08:07→16:55)
[2020-01-08] MEDS: Insulin NPH-Human 300 UNITS/3 ML PEN 10 UNIT SC (08:11)
[2020-01-08] MEDS: Pantoprazole 40 MG TABCR PO ×2 (08:12→19:59)
[2020-01-08] MEDS: Apixaban 5 MG TAB PO ×2 (08:12→19:59)
[2020-01-08] MEDS: buPROPion-XL 150 MG TABCR 300 MG PO (08:12)
[2020-01-08] MEDS: Cyanocobalamin 500 MCG TAB 1000 MCG PO (08:12)
[2020-01-08] MEDS: Folic Acid 1 MG TAB PO (08:12)
[2020-01-08] MEDS: Docusate Sodium 100 MG CAP PO (08:13)
[2020-01-08] MEDS: Magnesium Chloride 64 MG TABCR PO ×2 (08:13→19:57)
[2020-01-08] MEDS: predniSONE 10 MG TAB PO (08:13)
[2020-01-08] MEDS: Multivitamin TAB 1 TAB PO (08:13)
[2020-01-08] MEDS: Normal Saline Flush 10 ML SYR 20 ML IVP ×2 (08:14→19:59)
--- NOTE | 2020-01-08 08:25 | OTIE_ITS ---
Occupational Therapy Notes Inpatient Occupational Therapy Evaluation Date: 01/06/20 Referring Doctor: Sarai Hatfield NP OT Orders: Non-Urgent Precautions: Fall, Standard, DNR/DNI PATIENT PROFILE/ADMITTING DIAGNOSIS: Pt is a 64 year old male who presented to the ER on 12/24/19 for Pneumonia, DALLAS (acute kidney injury), Acidosis, lactic. He was admitted to [facility] for hx of PE, essential hypertension, type 2 DM, previous pneumonia with lung abscess, schizoaffective disorder and GERD. Patient s currently Swing bed 1 status for IV antibiotic for the next 6 weeks. Past Medical History- Acute thrombosis of right basilic vein (Inactive) Complication associated with peripherally inserted central catheter (PICC) (Inactive) COPD (chronic obstructive pulmonary disease) (Chronic) Diabetes mellitus (Chronic) GERD (gastroesophageal reflux disease) (Chronic) H/O schizophrenia (Acute) H/O: CVA (cerebrovascular accident) (Acute) Hypertension (Chronic) Non-insulin dependent type 2 diabetes mellitus (Chronic) Oropharyngeal dysphagia (Acute) Pulmonary emboli (Inactive) Schizo affective schizophrenia (Chronic) Social History/Home Situation: Pt is a resident at [facility] in [place], [place]. He reports that he has (A) with his functional ADLs/IADLs as needed for baseline. He states that he shovels the driveway in the winter and they (A) with meals, laundry and provides (A) as needed. He notes that he is (I) at baseline and does not require (A) in his day to day routine. Equipment owned/DME: Lives in [facility] which provides all DME needs. SUBJECTIVE: Pt was sitting on side of bed fully dressed when OT arrived. He was agreeable to OT consult. OBJECTIVE: General Observation: Pleasant Mental Status: A&Ox2 Pain: No c/o pain. ROM: RUE AROM WNL L UE AROM WNL STRENGTH: RUE 5/5 throughout globally LUE 5/5 throughout globally FUNCTIONAL MOBILITY/ADLS: Transfers no assistive device Supine-sit (I) Sit-supine (I) Sit-Stand (I) Stand-sit (I) Bed-Chair (I) Chair-bed (I) BATHING Performed (I) prior to OT arrival. DRESSING Dressing UE (I) don and doffing personal shirt with buttons. Dressing LE (I) don and doffing (B) socks and pants. GROOMING Pt reports that he brushes his teeth at night time only and is (I). TOILETING (I) on toilet. EATING Pt reports that he is (I) with no issues. BALANCE: Static sitting Normal Dynamic Sitting Normal Static Standing Normal Dynamic Standing Normal SPECIAL TESTS: Daily Activity Limitations Standardized Measure [facility] AM -PAC ?6 clicks? Daily Activity Inpatient Short Form: Raw score: 24 Standardized score: 57.54 CMS score: 0.00% INFORMED CONSENT/EDUCATION: Pt instructed in purpose of OT Consult and plan of care. ASSESSMENT: Patient is a 64-year-old male referred to occupational therapy services with diagnosis of Pneumonia, DALLAS (acute kidney injury), Acidosis, lactic. Pt was seen for OT consult only. He was able to demonstrate his ADLs/IADLs in both sitting and standing with ideal technique and no vc provided. He is demonstrating ideal balance in both sitting and standing. Based on pts current level of function and functional (I) OT will plan to discharge pt from skilled OT services at this time as pt is at his baseline level of function. [facility] score 24 Patient is assessed as a Low 90935 complexity based on the following: History: See above Examination: see above Presentation: Evolving Decision Making: AMOAC score 24 GOALS Pt was seen for OT consult only. PLAN OF CARE/TREATMENT PLAN: OT consult only. DISCHARGE RECOMMENDATIONS OT recommends that pt return to [facility] when medically cleared per MD. TREATMENT TIME/MINUTES/CODES 18262, 10 minutes (10:30) Hillary Sams OTR/L [facility]
--- NOTE | 2020-01-08 09:20 | PHARADMIT ---
Admission Pharmacy Clinical Review Bacteremia (swing bed) Patient here for 6 weeks of IV Oxacillin. Last negative blood culture 12/28/2019 Patient is also on Clozaril , follow [facility] (9.18 on 01/05/2020) Diabetic: Insulin Glargine, NPH & Aspart ([id number]) No other Labs No new changes.
--- NOTE | 2020-01-08 09:40 | IN_ITS ---
Date of service: 01/06/20 Time of Service: 10:25 PT Notes Visit Reasons: BACTEREMIA Date of service: 01/06/20 Time of Service: 10:25 PT Notes Visit Reasons: PNEUMONIA, [place], LACTIC ACIDOSIS Inpatient Physical Therapy Evaluation Date: January 06, 2020 Referring Doctor: Sarai Hatfield PT Orders: PT CONSULT: Evaluate and treat Precautions: Standard Patient Profile/Admitting Diagnosis: Patient is a 64-year-old male with a history of previous PE, essential hypertension, type 2 diabetes mellitus, previous pneumonia with lung abscess, schizoaffective disorder and GERD who presented the emergency department with complaints of shortness of breath on 12/24/2019. Patient swing bed status for IV antibiotic for the next 6 weeks. PMHX: Acute thrombosis of right basilic vein (Inactive) Complication associated with peripherally inserted central catheter (PICC) (Inactive) COPD (chronic obstructive pulmonary disease) (Chronic) Diabetes mellitus (Chronic) GERD (gastroesophageal reflux disease) (Chronic) H/O schizophrenia (Acute) H/O: CVA (cerebrovascular accident) (Acute) Hypertension (Chronic) Non-insulin dependent type 2 diabetes mellitus (Chronic) Oropharyngeal dysphagia (Acute) Pulmonary emboli (Inactive) Schizo affective schizophrenia (Chronic) Social History/Home Situation: Patient lives in assisted living facility with other individuals with cognitive impairment and disabilities in [facility]. He reports I at baseline, unsure if he utilizes an assistive device. He notes that he shovels the walkways at his home prior to admission. Current Functional Limitations: None Equipment Owned/DME: Lives in assisted living facility which provides all [facility] equipment Subjective: Koko reports he is feeling much better. He declines any pain. He is agreeable to PT consultation this morning. Objective: General Observation: Up seated bedside and dressed upon entering patients room for evaluation Mental Status: Alert and orientedx3 Pain: 0/10 Vital Signs: N/T ROM: Right Upper Extremity: WNL Left Upper Extremity: WNL Right Lower Extremity: WNL Left Lower Extremity: WNL Strength: Right Upper Extremity: 5/5 Left Upper Extremity: 5/5 Right Lower Extremity: 5/5 Left Lower Extremity: 5/5 Sensation: N/T Bed Mobility/Transfers: Rolling: I Supine to sit: I Sit to supine: I Sit to stand: I Stand to sit: I Bed to chair: I Chair to bed: I Gait: I without assistive device [id number] Balance: Static Sitting: Normal Dynamic Sitting: Normal Static Standing: Normal Dynamic Standing: Good Special Tests: Mobility Limitations Standardized Measure [facility] AM-PAC 6 clicks Basic Mobility Inpatient Short Form: Raw Score: 24 Standardized Score: 61.14 CMS Score: 0% CMS Modifier: CH Informed Consent/Education: Patient instructed in purpose of PT consult and plan of care. Assessment: Patient is a 64 year old male referred to physical therapy services with the diagnosis of history of previous PE, essential hypertension, type 2 diabetes mellitus, previous pneumonia with lung abscess, schizoaffective disorder and GERD who presented the emergency department with complaints of shortness of breath on 12/24/2019. Patient presents with clinical signs and symptoms consistent with diagnosis, however currently presents with full ROM, good functional strength, good balance, and nonantalgic gait without assistive device. Currently does not require skilled therapy services at this time due to level of independence. Patient is assessed as a Low 93257 complexity based on the following: History: As above Examination: As above Presentation: Low Decision Making: Stable Plan of Care/Treatment Plan: PT consult only. Discharge from PT services due to level of independence. DISCHARGE RECOMMENDATIONS: Return to assisted living post discharge TREATMENT CODE/TIME: 93274 15 minutes, 10:25 DANIELE Mercado
[2020-01-08] MEDS: Ferrous Gluconate 324 MG TAB PO (10:39)
[2020-01-08 15:25] VITALS: BP 134/65; PULSE 88; RESP 19; TEMP 36.4; O2SAT 99
[2020-01-08] MEDS: Insulin Glargine 300 UNITS/3 ML PEN 13 UNITS SC (21:43)
[2020-01-08] MEDS: Simvastatin 20 MG TAB PO (21:43)
[2020-01-09 07:25] VITALS: BP 152/85; PULSE 84; RESP 19; TEMP 36.7; O2SAT 93
[2020-01-09] MEDS: Mometasone 220 MCG 14 DOSE INHALER 2 PUFF IH ×2 (07:46→20:52)
[2020-01-09] MEDS: buPROPion-XL 150 MG TABCR 300 MG PO (07:54)
[2020-01-09] MEDS: predniSONE 10 MG TAB PO (07:54)
[2020-01-09] MEDS: Cyanocobalamin 500 MCG TAB 1000 MCG PO (07:54)
[2020-01-09] MEDS: Multivitamin TAB 1 TAB PO (07:54)
[2020-01-09] MEDS: Docusate Sodium 100 MG CAP PO ×2 (07:55→23:57)
[2020-01-09] MEDS: Magnesium Chloride 64 MG TABCR PO ×2 (07:55→20:51)
[2020-01-09] MEDS: Apixaban 5 MG TAB PO ×2 (07:55→20:51)
[2020-01-09] MEDS: Normal Saline Flush 10 ML SYR 20 ML IVP ×2 (07:55→20:52)
[2020-01-09] MEDS: Folic Acid 1 MG TAB PO (07:55)
[2020-01-09] MEDS: Pantoprazole 40 MG TABCR PO ×2 (07:55→20:51)
[2020-01-09] MEDS: Insulin NPH-Human 300 UNITS/3 ML PEN 10 UNIT SC (08:00)
[2020-01-09] MEDS: Insulin Aspart 300 UNITS/3 ML PEN SC ×5 (08:04→17:13)
[2020-01-09] MEDS: Ferrous Gluconate 324 MG TAB PO (09:49)
[2020-01-09 15:05] VITALS: BP 124/81; PULSE 88; RESP 18; TEMP 36.6; O2SAT 96
[2020-01-09] MEDS: Normal Saline Flush 10 ML SYR IVP ×4 (16:34→23:51)
[2020-01-09] MEDS: Insulin Glargine 300 UNITS/3 ML PEN 13 UNITS SC (21:25)
[2020-01-09] MEDS: Simvastatin 20 MG TAB PO (21:25)
[2020-01-09] MEDS: Milk of Magnesia 30 ML CUP PO (23:56)
[2020-01-10] MEDS: Normal Saline Flush 10 ML SYR IVP ×2 (04:53→15:29)
[2020-01-10] MEDS: Normal Saline 500 ML IV (04:54)
[2020-01-10 07:40] VITALS: BP 147/80; PULSE 82; RESP 18; TEMP 36.5; O2SAT 94
[2020-01-10 08:30] VITALS: O2SAT 94
[2020-01-10] MEDS: Insulin Aspart 300 UNITS/3 ML PEN SC ×5 (08:39→17:07)
[2020-01-10] MEDS: buPROPion-XL 150 MG TABCR 300 MG PO (08:42)
[2020-01-10] MEDS: Cyanocobalamin 500 MCG TAB 1000 MCG PO (08:42)
[2020-01-10] MEDS: Docusate Sodium 100 MG CAP PO (08:43)
[2020-01-10] MEDS: Multivitamin TAB 1 TAB PO (08:43)
[2020-01-10] MEDS: Pantoprazole 40 MG TABCR PO ×2 (08:43→20:01)
[2020-01-10] MEDS: Apixaban 5 MG TAB PO ×2 (08:44→20:02)
[2020-01-10] MEDS: Normal Saline Flush 10 ML SYR 20 ML IVP ×2 (08:44→20:03)
[2020-01-10] MEDS: Magnesium Chloride 64 MG TABCR PO ×2 (08:44→20:01)
[2020-01-10] MEDS: Folic Acid 1 MG TAB PO (08:44)
[2020-01-10] MEDS: Mometasone 220 MCG 14 DOSE INHALER 2 PUFF IH ×2 (09:06→20:02)
[2020-01-10] MEDS: Ferrous Gluconate 324 MG TAB PO (09:51)
--- NOTE | 2020-01-10 11:44 | PHA.REVIEW ---
Pharmacy Admission Review - Admission Clinical Review (Last Updated 12/24/19 @ 19:51 by Tian Chakraborty) MSSA bacteremia (Acute) Discharge planning issues (Acute) No Known Allergies Allergy (Unverified 12/24/19 14:45) Height 5 ft 8.11 in Weight 64.1 kg - DM Control DM Control: Finger Stick Blood Glucose 150 Finger Stick Blood Glucose 150 Finger Stick Blood Glucose 150 - BP Control BP Control: Blood Pressure 147/80 Pharmacy Review - Subjective Subjective: SWINGBED 1 being treated for MSSA bacteremia for total 42 days - Objective Objective: VS ok, no labs - Assessment Assessment: bowel meds given for constipation per morning report. no med changes noted - Plan Plan: follow for any med changes
[2020-01-10] MEDS: Milk of Magnesia 30 ML CUP PO (14:47)
[2020-01-10] MEDS: Polyethylene Glycol 3350 17 GM PACKET PO (14:47)
[2020-01-10] MEDS: Simvastatin 20 MG TAB PO (21:36)
[2020-01-10] MEDS: Insulin Glargine 300 UNITS/3 ML PEN 13 UNITS SC (21:36)
[2020-01-11] MEDS: Mometasone 220 MCG 14 DOSE INHALER 2 PUFF IH ×2 (08:01→20:12)
[2020-01-11 08:05] LABS: Abs Immature Grans 0.08 k/cumm (0.0-0.09); Absolute Basophil Count 0.01 k/cumm (0.0-0.2); Absolute Eosinophil Count 0.22 k/cumm (0.0-0.7); Absolute Lymphocyte Count 2.04 k/cumm (1.2-3.4); Absolute Monocyte Count 1.08 k/cumm (0.11-0.7); Absolute Neutrophil Count 5.45 k/cumm (1.2-6.7); Basophils % 0.1; Eosinophils % 2.5; HGB 9.1 g/dL (13.5-17.5); Immature Grans % 0.9 %; Mean Corp. HGB Concentration 31.4 g/dL (32.0-36.0); Mean Corpuscular Volume 89.2 fL (80-95); Mean Platelet Volume 9.5 fL (8.0-11.0); Monocytes % 12.2; Neutrophils % 61.3; Platelet Count 388 x1000/uL (130-400); RBC 3.25 m/cumm (4.50-6.00); RBC Distribution Width 17.1 % (11.8-14.1); White Blood Cell Count 8.88 k/cumm (4.4-10.8)
[2020-01-11 08:11] VITALS: BP 130/76; PULSE 84; RESP 18; TEMP 36.2; O2SAT 93
[2020-01-11] MEDS: buPROPion-XL 150 MG TABCR 300 MG PO (08:24)
[2020-01-11] MEDS: Multivitamin TAB 1 TAB PO (08:24)
[2020-01-11] MEDS: Apixaban 5 MG TAB PO ×2 (08:25→20:13)
[2020-01-11] MEDS: Cyanocobalamin 500 MCG TAB 1000 MCG PO (08:25)
[2020-01-11] MEDS: Pantoprazole 40 MG TABCR PO ×2 (08:25→20:13)
[2020-01-11] MEDS: Docusate Sodium 100 MG CAP PO (08:26)
[2020-01-11] MEDS: Folic Acid 1 MG TAB PO (08:26)
[2020-01-11] MEDS: Magnesium Chloride 64 MG TABCR PO ×2 (08:26→20:13)
[2020-01-11] MEDS: Milk of Magnesia 30 ML CUP PO (08:27)
[2020-01-11] MEDS: Bisacodyl 10 MG SUPP PR (08:27)
[2020-01-11] MEDS: Normal Saline Flush 10 ML SYR 20 ML IVP ×2 (08:28→20:11)
[2020-01-11] MEDS: Insulin Aspart 300 UNITS/3 ML PEN SC ×5 (08:29→17:19)
[2020-01-11 08:33] LABS: ALT 17 U/L (16-63); AST 8 U/L (15-37); Albumin 2.6 g/dL (3.4-5.0); Alkaline Phosphatase 71 U/L (46-116); Anion Gap 5.5 mmol/L (3-11); BUN 17 mg/dL (7-18); Bilirubin, Total 0.2 mg/dL (0.2-1.0); C-Reactive Protein 0.81 mg/dL (0.0-0.3); CO2 28.5 mmol/L (21.0-32.0); CREATININE 0.93 mg/dL (0.70-1.30); Calcium 8.1 mg/dL (8.5-10.1); Chloride 108 mmol/L (98-107); Glucose 134 mg/dL (74-106); Potassium 4.1 mmol/L (3.5-5.1); Sodium 142 mmol/L (136-145); Total Protein 6.2 g/dL (6.4-8.2)
[2020-01-11 08:57] LABS: ESR 54 mm/hr (1-20)
[2020-01-11] MEDS: Ferrous Gluconate 324 MG TAB PO (10:25)
[2020-01-11] MEDS: Normal Saline Flush 10 ML SYR IVP ×4 (12:43→23:38)
[2020-01-11] MEDS: Simvastatin 20 MG TAB PO (21:57)
[2020-01-11] MEDS: Insulin Glargine 300 UNITS/3 ML PEN 13 UNITS SC (22:01)
[2020-01-12] MEDS: Normal Saline Flush 10 ML SYR IVP ×4 (04:29→23:36)
[2020-01-12 07:52] VITALS: BP 145/79; PULSE 93; RESP 18; TEMP 35.9; O2SAT 94
[2020-01-12] MEDS: buPROPion-XL 150 MG TABCR 300 MG PO (08:12)
[2020-01-12] MEDS: Magnesium Chloride 64 MG TABCR PO ×2 (08:12→20:09)
[2020-01-12] MEDS: Folic Acid 1 MG TAB PO (08:13)
[2020-01-12] MEDS: Pantoprazole 40 MG TABCR PO ×2 (08:13→20:09)
[2020-01-12] MEDS: Docusate Sodium 100 MG CAP PO (08:13)
[2020-01-12] MEDS: Cyanocobalamin 500 MCG TAB 1000 MCG PO (08:14)
[2020-01-12] MEDS: Apixaban 5 MG TAB PO ×2 (08:14→20:09)
[2020-01-12] MEDS: Multivitamin TAB 1 TAB PO (08:14)
[2020-01-12] MEDS: Insulin Aspart 300 UNITS/3 ML PEN SC ×4 (08:15→18:02)
[2020-01-12] MEDS: Normal Saline Flush 10 ML SYR 20 ML IVP ×2 (08:16→20:08)
[2020-01-12] MEDS: Mometasone 220 MCG 14 DOSE INHALER 2 PUFF IH ×2 (08:22→20:07)
[2020-01-12] MEDS: Ferrous Gluconate 324 MG TAB PO (10:30)
[2020-01-12] MEDS: Normal Saline 500 ML IV (11:57)
[2020-01-12] MEDS: Insulin Glargine 300 UNITS/3 ML PEN 13 UNITS SC (21:43)
[2020-01-12] MEDS: Simvastatin 20 MG TAB PO (21:44)
[2020-01-13] MEDS: Normal Saline Flush 10 ML SYR IVP ×4 (04:29→23:31)
[2020-01-13 07:46] VITALS: BP 135/84; PULSE 83; RESP 17; TEMP 37.5; O2SAT 96
[2020-01-13] MEDS: Mometasone 220 MCG 14 DOSE INHALER 2 PUFF IH ×2 (08:11→19:52)
[2020-01-13] MEDS: Insulin Aspart 300 UNITS/3 ML PEN SC ×4 (08:18→17:38)
[2020-01-13] MEDS: Cyanocobalamin 500 MCG TAB 1000 MCG PO (08:21)
[2020-01-13] MEDS: buPROPion-XL 150 MG TABCR 300 MG PO (08:21)
[2020-01-13] MEDS: Magnesium Chloride 64 MG TABCR PO ×2 (08:22→19:55)
[2020-01-13] MEDS: Pantoprazole 40 MG TABCR PO ×2 (08:23→19:55)
[2020-01-13] MEDS: Apixaban 5 MG TAB PO ×2 (08:23→19:55)
[2020-01-13] MEDS: Multivitamin TAB 1 TAB PO (08:23)
[2020-01-13] MEDS: Docusate Sodium 100 MG CAP PO (08:23)
[2020-01-13] MEDS: Folic Acid 1 MG TAB PO (08:23)
[2020-01-13] MEDS: Normal Saline Flush 10 ML SYR 20 ML IVP ×2 (08:24→19:54)
[2020-01-13] MEDS: Ferrous Gluconate 324 MG TAB PO (11:07)
--- NOTE | 2020-01-13 12:26 | W.PM.PROGNOT ---
Date of Service Date of service: 01/13/20 Time of Service: 12:26 Assessment and Plan Assessment and plan (1) MSSA bacteremia: Status: Acute Assessment and plan: afebrile and hemodynamically stable, Day , on oxacillin for MSSA bacterima based on cultures, [facility] recommends weekly labs, will order for Mondays, CRP improved to 0.81 from 4.54 and white count normalized. Echo with reduced EF 45-50%, no vegetation on leaflets however without ability to do SAN[place]NA will treat like endocarditis with antbx 4-6 weeks. (2) Non-insulin dependent type 2 diabetes mellitus: Status: Chronic (3) Hypertension: Status: Chronic Assessment and plan: stable Qualifiers: Hypertension type: essential hypertension Qualified Code(s): I10 - Essential (primary) hypertension (4) GERD (gastroesophageal reflux disease): Status: Chronic Assessment and plan: stable Qualifiers: Esophagitis presence: esophagitis presence not specified Qualified Code(s): K21.9 - Gastro-esophageal reflux disease without esophagitis (5) Discharge planning issues: Status: Acute Assessment and plan: discharge home when antibiotic course complete Subjective Subjective Patient reports: no new complaints, feels better, tolerating liquids well, tolerating a regular diet, voiding w/o difficulty, bowel movement and afebrile Exam Narrative Exam Narrative: Elderly male in no distress. pink warm dry and well perfused. Neuro He is alert and oriented person place time circumstance. Lungs are clear to auscultation anteriorly posteriorly there is some diminished breath sounds at the right lung base but overall there is improved aeration. Heart regular rate and rhythm without murmur rub or gallop. Abdomen soft and nontender, nondistention. Extremities without peripheral cyanosis, or edema. psyche: normal mood and affect, appropriate Objective Objective Clinical Data: Vital Signs Temperature 37.5 C 01/13/20 07:46 Temperature Source Tympanic 01/13/20 07:46 Pulse 83 01/13/20 07:46 Pulse Rhythm Regular 01/13/20 04:25 Respiratory Rate 17 01/13/20 07:46 Respiratory Effort 01/13/20 04:25 Respiratory Depth Normal 01/13/20 04:25 Respiratory Pattern Normal 01/13/20 04:25 Blood Pressure 135/84 01/13/20 07:46 Pulse Oximetry 96 01/13/20 07:46 Oxygen Delivery Method Room Air 01/13/20 07:46 Oxygen Flow Rate 0 01/13/20 07:46 Pain Level 0 01/13/20 07:46 Intake & Output 01/12/20 01/13/20 01/13/20 23:59 11:59 23:59 Intake Total 640 / 1235.05 400 / 400 Output Total 275 / 275 200 / 200 Balance 365 / 960.05 200 / 200 Intake: IV 400 / 755.05 300 / 300 Oral 240 / 480 100 / 100 Output: Urine 275 / 275 200 / 200 Other: Urine Color Yellow Yellow Urine Appearance Clear Clear Urine Odor None Comment xlg void indep and flushed Voiding Methods Toilet Laboratory Results WBC 8.88 k/cumm (4.4-10.8) 01/11/20 07:05 RBC 3.25 m/cumm (4.50-6.00) L 01/11/20 07:05 Hgb 9.1 g/dL (13.5-17.5) L 01/11/20 07:05 Hct 29.0 % (40.0-50.0) L 01/11/20 07:05 MCV 89.2 fL (80-95) 01/11/20 07:05 MCH 28.0 pg (27.0-33.0) 01/11/20 07:05 MCHC 31.4 g/dL (32.0-36.0) L 01/11/20 07:05 RDW 17.1 % (11.8-14.1) H 01/11/20 07:05 Plt Count 388 x1000/uL (130-400) 01/11/20 07:05 MPV 9.5 fL (8.0-11.0) 01/11/20 07:05 Immature Gran % 0.9 % 01/11/20 07:05 Neutrophils % 61.3 01/11/20 07:05 Lymphocytes % 23.0 01/11/20 07:05 Monocytes % 12.2 01/11/20 07:05 Eosinophils % 2.5 01/11/20 07:05 Basophils % 0.1 01/11/20 07:05 Absolute Neutrophils 5.45 k/cumm (1.2-6.7) 01/11/20 07:05 Absolute Lymphocytes 2.04 k/cumm (1.2-3.4) 01/11/20 07:05 Absolute Monocytes 1.08 k/cumm (0.11-0.7) H 01/11/20 07:05 Absolute Eosinophils 0.22 k/cumm (0.0-0.7) 01/11/20 07:05 Absolute Basophils 0.01 k/cumm (0.0-0.2) 01/11/20 07:05 ESR 54 mm/hr (1-20) H 01/11/20 07:05 Sodium 142 mmol/L (136-145) 01/11/20 07:05 Potassium 4.1 mmol/L (3.5-5.1) 01/11/20 07:05 Chloride 108 mmol/L (98-107) H 01/11/20 07:05 Carbon Dioxide 28.5 mmol/L (21.0-32.0) 01/11/20 07:05 Anion Gap 5.5 mmol/L (3-11) 01/11/20 07:05 BUN 17 mg/dL (7-18) 01/11/20 07:05 Creatinine 0.93 mg/dL (0.70-1.30) 01/11/20 07:05 Estimated GFR/1.73 m2 >= 60.00 (mL/min/1.73m2) 01/11/20 07:05 Glucose 134 mg/dL (74-106) H 01/11/20 07:05 Calcium 8.1 mg/dL (8.5-10.1) L 01/11/20 07:05 Total Bilirubin 0.2 mg/dL (0.2-1.0) 01/11/20 07:05 AST 8 U/L (15-37) L 01/11/20 07:05 ALT 17 U/L (16-63) 01/11/20 07:05 Alkaline Phosphatase 71 U/L (46-116) 01/11/20 07:05 C-Reactive Protein 0.81 mg/dL (0.0-0.3) H 01/11/20 07:05 Total Protein 6.2 g/dL (6.4-8.2) L 01/11/20 07:05 Albumin 2.6 g/dL (3.4-5.0) L 01/11/20 07:05
--- NOTE | 2020-01-13 13:12 | W.NUTRFU ---
Date of service: 01/13/20 Time of Service: 13:12 Nutritional Follow up NOTE: Clement continues to following Diabetic diet and meeting nutrient and fluid needs by mouth. Blood sugars adequately controlled. Will continue to encourage low glycemic meals/snacks. Will continue to follow prn. Time Spent in Nutritional Counseling and Treatment: 5 min spent face to face.
[2020-01-13] MEDS: Simvastatin 20 MG TAB PO (21:43)
[2020-01-13] MEDS: Insulin Glargine 300 UNITS/3 ML PEN 13 UNITS SC (21:44)
[2020-01-14] MEDS: Normal Saline 500 ML IV (03:59)
[2020-01-14] MEDS: Normal Saline Flush 10 ML SYR IVP ×4 (03:59→23:50)
[2020-01-14] MEDS: Mometasone 220 MCG 14 DOSE INHALER 2 PUFF IH ×2 (07:47→19:55)
[2020-01-14] MEDS: Insulin Aspart 300 UNITS/3 ML PEN SC ×3 (08:57→17:20)
[2020-01-14] MEDS: Cyanocobalamin 500 MCG TAB 1000 MCG PO (09:00)
[2020-01-14] MEDS: buPROPion-XL 150 MG TABCR 300 MG PO (09:00)
[2020-01-14] MEDS: Pantoprazole 40 MG TABCR PO ×2 (09:02→19:55)
[2020-01-14] MEDS: Docusate Sodium 100 MG CAP PO (09:02)
[2020-01-14] MEDS: Multivitamin TAB 1 TAB PO (09:02)
[2020-01-14] MEDS: Apixaban 5 MG TAB PO ×2 (09:03→19:55)
[2020-01-14] MEDS: Folic Acid 1 MG TAB PO (09:03)
[2020-01-14] MEDS: Magnesium Chloride 64 MG TABCR PO ×2 (09:03→19:55)
[2020-01-14 09:42] VITALS: BP 122/79; PULSE 76; RESP 19; TEMP 36.4; O2SAT 94
[2020-01-14] MEDS: Ferrous Gluconate 324 MG TAB PO (09:58)
--- NOTE | 2020-01-14 16:46 | PDOC.CMACT ---
Care Management Activity Note CM continues to enjoy ambulating through the hallways, and watching TV. CM continues to review additional options and activity cart. He remains pleasant in interaction, but not interested in additional activities.
[2020-01-14] MEDS: Normal Saline Flush 10 ML SYR 20 ML IVP (19:55)
[2020-01-14] MEDS: Insulin Glargine 300 UNITS/3 ML PEN 13 UNITS SC ×2 (21:32→21:37)
[2020-01-14] MEDS: Simvastatin 20 MG TAB PO (21:32)
[2020-01-15] MEDS: Normal Saline Flush 10 ML SYR IVP ×2 (04:20→16:36)
[2020-01-15 07:11] VITALS: BP 115/74; PULSE 83; RESP 18; TEMP 35.8; O2SAT 91
[2020-01-15] MEDS: Mometasone 220 MCG 14 DOSE INHALER 2 PUFF IH ×2 (07:47→20:09)
[2020-01-15] MEDS: Insulin Aspart 300 UNITS/3 ML PEN SC ×3 (08:23→16:57)
[2020-01-15] MEDS: buPROPion-XL 150 MG TABCR 300 MG PO (08:25)
[2020-01-15] MEDS: Magnesium Chloride 64 MG TABCR PO ×2 (08:26→20:06)
[2020-01-15] MEDS: Docusate Sodium 100 MG CAP PO (08:26)
[2020-01-15] MEDS: Folic Acid 1 MG TAB PO (08:26)
[2020-01-15] MEDS: Cyanocobalamin 500 MCG TAB 1000 MCG PO (08:26)
[2020-01-15] MEDS: Multivitamin TAB 1 TAB PO (08:26)
[2020-01-15] MEDS: Pantoprazole 40 MG TABCR PO ×2 (08:26→20:06)
[2020-01-15] MEDS: Apixaban 5 MG TAB PO ×2 (08:26→20:07)
[2020-01-15] MEDS: Normal Saline Flush 10 ML SYR 20 ML IVP ×2 (08:29→20:12)
[2020-01-15] MEDS: Ferrous Gluconate 324 MG TAB PO (09:17)
[2020-01-15] MEDS: Simvastatin 20 MG TAB PO (22:53)
[2020-01-15] MEDS: Insulin Glargine 300 UNITS/3 ML PEN 13 UNITS SC (22:55)
[2020-01-16 07:17] VITALS: BP 131/76; PULSE 82; RESP 18; TEMP 36.1; O2SAT 91
[2020-01-16] MEDS: Mometasone 220 MCG 14 DOSE INHALER 2 PUFF IH ×2 (07:50→19:58)
[2020-01-16] MEDS: Folic Acid 1 MG TAB PO (08:15)
[2020-01-16] MEDS: Apixaban 5 MG TAB PO ×2 (08:15→19:56)
[2020-01-16] MEDS: buPROPion-XL 150 MG TABCR 300 MG PO (08:15)
[2020-01-16] MEDS: Pantoprazole 40 MG TABCR PO ×2 (08:15→19:56)
[2020-01-16] MEDS: Cyanocobalamin 500 MCG TAB 1000 MCG PO (08:15)
[2020-01-16] MEDS: Magnesium Chloride 64 MG TABCR PO ×2 (08:15→19:56)
[2020-01-16] MEDS: Multivitamin TAB 1 TAB PO (08:15)
[2020-01-16] MEDS: Docusate Sodium 100 MG CAP PO (08:15)
[2020-01-16] MEDS: Normal Saline Flush 10 ML SYR 20 ML IVP ×2 (08:16→20:02)
[2020-01-16] MEDS: Insulin Aspart 300 UNITS/3 ML PEN SC ×3 (08:17→16:56)
[2020-01-16] MEDS: Ferrous Gluconate 324 MG TAB PO (10:12)
[2020-01-16] MEDS: Normal Saline Flush 10 ML SYR IVP ×4 (13:11→21:55)
[2020-01-16] MEDS: Simvastatin 20 MG TAB PO (21:53)
[2020-01-16] MEDS: Insulin Glargine 300 UNITS/3 ML PEN 13 UNITS SC (22:11)
[2020-01-17] MEDS: Normal Saline Flush 10 ML SYR IVP ×4 (03:51→23:26)
[2020-01-17 07:21] VITALS: BP 123/77; PULSE 90; RESP 18; TEMP 37.2; O2SAT 95
[2020-01-17] MEDS: Mometasone 220 MCG 14 DOSE INHALER 2 PUFF IH ×2 (07:51→20:36)
[2020-01-17] MEDS: Magnesium Chloride 64 MG TABCR PO ×2 (08:15→20:38)
[2020-01-17] MEDS: Normal Saline Flush 10 ML SYR 20 ML IVP ×2 (08:15→20:37)
[2020-01-17] MEDS: buPROPion-XL 150 MG TABCR 300 MG PO (08:15)
[2020-01-17] MEDS: Cyanocobalamin 500 MCG TAB 1000 MCG PO (08:16)
[2020-01-17] MEDS: Pantoprazole 40 MG TABCR PO ×2 (08:16→20:38)
[2020-01-17] MEDS: Docusate Sodium 100 MG CAP PO (08:16)
[2020-01-17] MEDS: Multivitamin TAB 1 TAB PO (08:16)
[2020-01-17] MEDS: Apixaban 5 MG TAB PO ×2 (08:16→20:37)
[2020-01-17] MEDS: Folic Acid 1 MG TAB PO (08:16)
[2020-01-17] MEDS: Insulin Aspart 300 UNITS/3 ML PEN SC ×5 (08:17→17:13)
[2020-01-17] MEDS: Ferrous Gluconate 324 MG TAB PO (09:36)
[2020-01-17] MEDS: Bisacodyl 10 MG SUPP PR (13:11)
[2020-01-17] MEDS: Milk of Magnesia 30 ML CUP PO (14:34)
--- NOTE | 2020-01-17 15:01 | W.DIABETESNO ---
Date of service: 01/17/20 Time of Service: 15:01 Diabetes Note NOTE: Clement continues on Diabetic Diet with adequate intake (75-100%), blood sugars continue to be adequately controlled, weight stable, not at risk for nutritional decline at this time. Time Spent in Nutritional Counseling and Treatment: 10 min spent face to face
[2020-01-17] MEDS: Simvastatin 20 MG TAB PO (21:42)
[2020-01-17] MEDS: Insulin Glargine 300 UNITS/3 ML PEN 13 UNITS SC (21:43)
[2020-01-18] MEDS: Normal Saline Flush 10 ML SYR IVP (03:41)
[2020-01-18 06:39] LABS: Abs Immature Grans 0.08 k/cumm (0.0-0.09); Absolute Basophil Count 0.01 k/cumm (0.0-0.2); Absolute Eosinophil Count 0.17 k/cumm (0.0-0.7); Absolute Lymphocyte Count 1.64 k/cumm (1.2-3.4); Absolute Monocyte Count 1.14 k/cumm (0.11-0.7); Basophils % 0.1; Eosinophils % 1.8; HGB 10.2 g/dL (13.5-17.5); Immature Grans % 0.8 %; Lymphocytes % 17.2; Mean Corp. HGB Concentration 31.9 g/dL (32.0-36.0); Mean Corpuscular Hemoglobin 28.1 pg (27.0-33.0); Mean Corpuscular Volume 88.2 fL (80-95); Mean Platelet Volume 9.3 fL (8.0-11.0); Monocytes % 11.9; Neutrophils % 68.2; Platelet Count 332 x1000/uL (130-400); RBC 3.63 m/cumm (4.50-6.00); RBC Distribution Width 17.2 % (11.8-14.1); White Blood Cell Count 9.54 k/cumm (4.4-10.8)
[2020-01-18 06:55] LABS: ALT 19 U/L (16-63); AST 15 U/L (15-37); Albumin 3.1 g/dL (3.4-5.0); Alkaline Phosphatase 78 U/L (46-116); Anion Gap 7.9 mmol/L (3-11); BUN 28 mg/dL (7-18); Bilirubin, Total 0.2 mg/dL (0.2-1.0); C-Reactive Protein 0.08 mg/dL (0.0-0.3); CO2 26.1 mmol/L (21.0-32.0); CREATININE 1.24 mg/dL (0.70-1.30); Calcium 8.5 mg/dL (8.5-10.1); Chloride 108 mmol/L (98-107); Estimated GFR 58.33 (mL/min/1.73m2); Glucose 97 mg/dL (74-106); Magnesium 2.2 mg/dL (1.8-2.4); Potassium 4.5 mmol/L (3.5-5.1); Sodium 142 mmol/L (136-145); Total Protein 6.8 g/dL (6.4-8.2)
[2020-01-18 07:26] VITALS: BP 143/80; PULSE 85; RESP 18; TEMP 37.1; O2SAT 95
[2020-01-18] MEDS: Pantoprazole 40 MG TABCR PO ×2 (07:26→21:22)
[2020-01-18] MEDS: Normal Saline Flush 10 ML SYR 20 ML IVP ×2 (07:26→21:19)
[2020-01-18] MEDS: Mometasone 220 MCG 14 DOSE INHALER 2 PUFF IH ×2 (07:44→21:19)
[2020-01-18 07:55] LABS: ESR 43 mm/hr (1-20)
[2020-01-18] MEDS: Insulin Aspart 300 UNITS/3 ML PEN SC ×3 (08:22→16:44)
[2020-01-18] MEDS: Apixaban 5 MG TAB PO ×2 (08:23→21:22)
[2020-01-18] MEDS: Magnesium Chloride 64 MG TABCR PO ×2 (08:23→21:21)
[2020-01-18] MEDS: Docusate Sodium 100 MG CAP PO (08:23)
[2020-01-18] MEDS: buPROPion-XL 150 MG TABCR 300 MG PO (08:23)
[2020-01-18] MEDS: Multivitamin TAB 1 TAB PO (08:23)
[2020-01-18] MEDS: Cyanocobalamin 500 MCG TAB 1000 MCG PO (08:23)
[2020-01-18] MEDS: Folic Acid 1 MG TAB PO (08:23)
[2020-01-18] MEDS: Ferrous Gluconate 324 MG TAB PO (09:22)
[2020-01-18] MEDS: Simvastatin 20 MG TAB PO (21:22)
[2020-01-18] MEDS: Insulin Glargine 300 UNITS/3 ML PEN 13 UNITS SC (21:22)
[2020-01-19 07:37] VITALS: BP 123/77; PULSE 78; RESP 18; TEMP 36.6; O2SAT 95
[2020-01-19] MEDS: Mometasone 220 MCG 14 DOSE INHALER 2 PUFF IH ×2 (08:01→19:54)
[2020-01-19] MEDS: buPROPion-XL 150 MG TABCR 300 MG PO (08:59)
[2020-01-19] MEDS: Apixaban 5 MG TAB PO ×2 (08:59→19:55)
[2020-01-19] MEDS: Pantoprazole 40 MG TABCR PO ×2 (08:59→19:56)
[2020-01-19] MEDS: Cyanocobalamin 500 MCG TAB 1000 MCG PO (09:00)
[2020-01-19] MEDS: Magnesium Chloride 64 MG TABCR PO ×2 (09:00→19:55)
[2020-01-19] MEDS: Docusate Sodium 100 MG CAP PO (09:00)
[2020-01-19] MEDS: Folic Acid 1 MG TAB PO (09:00)
[2020-01-19] MEDS: Multivitamin TAB 1 TAB PO (09:01)
[2020-01-19] MEDS: Normal Saline Flush 10 ML SYR 20 ML IVP ×2 (09:02→19:56)
[2020-01-19] MEDS: Insulin Aspart 300 UNITS/3 ML PEN SC ×4 (09:04→17:13)
[2020-01-19] MEDS: Ferrous Gluconate 324 MG TAB PO (09:47)
--- NOTE | 2020-01-19 12:09 | W.PM.PROGNOT ---
Date of Service Date of service: 01/19/20 Time of Service: 12:09 Assessment and Plan Assessment and plan (1) MSSA bacteremia: Status: Acute Assessment and plan: afebrile and hemodynamically stable, on oxacillin for MSSA bacterima based on cultures through February 07, 2020, [facility] recommends weekly labs, will order for Mondays, CRP improved to 0.08 from 0.8 and white count normalized. Echo with reduced EF 45-50%, no vegetation on leaflets however without ability to do SAN[place]NA will treat like endocarditis with antbx 4-6 weeks. (2) Non-insulin dependent type 2 diabetes mellitus: Status: Chronic Assessment and plan: blood sugars stable in the low to mid 100's. will continue lantus and sliding scale coverage as needed (3) Hypertension: Status: Chronic Assessment and plan: blood pressures stable, continue current medications, monitor and adjust as needed. Qualifiers: Hypertension type: essential hypertension Qualified Code(s): I10 - Essential (primary) hypertension (4) GERD (gastroesophageal reflux disease): Status: Chronic Assessment and plan: stable. continue PPI Qualifiers: Esophagitis presence: esophagitis presence not specified Qualified Code(s): K21.9 - Gastro-esophageal reflux disease without esophagitis (5) Discharge planning issues: Status: Acute Assessment and plan: will discharge home when completed antibiotics, case management following Subjective Subjective Patient reports: no new complaints, tolerating a regular diet, voiding w/o difficulty and bowel movement Exam Narrative Exam Narrative: Elderly male in no distress. pink warm dry and well perfused. Neuro He is alert and oriented person place time circumstance. Lungs are clear to auscultation anteriorly posteriorly there is some diminished breath sounds at the right lung base but overall there is improved aeration. Heart regular rate and rhythm without murmur rub or gallop. Abdomen soft and nontender, nondistention. Extremities without peripheral cyanosis, or edema. psyche: normal mood and affect, appropriate Objective Objective Clinical Data: Vital Signs Temperature 36.6 C 01/19/20 07:37 Temperature Source Temporal Artery Scan 01/19/20 07:37 Pulse 78 01/19/20 07:37 Pulse Rhythm Regular 01/19/20 10:10 Respiratory Rate 18 01/19/20 07:37 Respiratory Effort Non-Labored 01/19/20 10:10 Respiratory Depth Normal 01/19/20 10:10 Respiratory Pattern Normal 01/19/20 10:10 Blood Pressure 123/77 01/19/20 07:37 Pulse Oximetry 95 01/19/20 07:37 Oxygen Delivery Method Room Air 01/19/20 07:37 Oxygen Flow Rate 0 01/19/20 07:37 Pain Level 0 01/19/20 07:37 Intake & Output 01/18/20 01/19/20 01/19/20 23:59 11:59 23:59 Intake Total 650 / 1050 150 / 150 Output Total 350 / 350 Balance 650 / 1050 -200 / -200 Intake: IV 170 / 270 150 / 150 Oral 480 / 780 Output: Urine 350 / 350 Other: Urine Color Yellow Yellow Urine Appearance Clear Clear Urine Odor None Normal Comment per patient report Stool Size Moderate Stool Characteristics Soft Formed Voiding Methods Toilet Toilet Urinal Urinal Laboratory Results WBC 9.54 k/cumm (4.4-10.8) 01/18/20 06:20 RBC 3.63 m/cumm (4.50-6.00) L 01/18/20 06:20 Hgb 10.2 g/dL (13.5-17.5) L 01/18/20 06:20 Hct 32.0 % (40.0-50.0) L 01/18/20 06:20 MCV 88.2 fL (80-95) 01/18/20 06:20 MCH 28.1 pg (27.0-33.0) 01/18/20 06:20 MCHC 31.9 g/dL (32.0-36.0) L 01/18/20 06:20 RDW 17.2 % (11.8-14.1) H 01/18/20 06:20 Plt Count 332 x1000/uL (130-400) 01/18/20 06:20 MPV 9.3 fL (8.0-11.0) 01/18/20 06:20 Immature Gran % 0.8 % 01/18/20 06:20 Neutrophils % 68.2 01/18/20 06:20 Lymphocytes % 17.2 01/18/20 06:20 Monocytes % 11.9 01/18/20 06:20 Eosinophils % 1.8 01/18/20 06:20 Basophils % 0.1 01/18/20 06:20 Absolute Neutrophils 6.50 k/cumm (1.2-6.7) 01/18/20 06:20 Absolute Lymphocytes 1.64 k/cumm (1.2-3.4) 01/18/20 06:20 Absolute Monocytes 1.14 k/cumm (0.11-0.7) H 01/18/20 06:20 Absolute Eosinophils 0.17 k/cumm (0.0-0.7) 01/18/20 06:20 Absolute Basophils 0.01 k/cumm (0.0-0.2) 01/18/20 06:20 ESR 43 mm/hr (1-20) H 01/18/20 06:20 Sodium 142 mmol/L (136-145) 01/18/20 06:20 Potassium 4.5 mmol/L (3.5-5.1) 01/18/20 06:20 Chloride 108 mmol/L (98-107) H 01/18/20 06:20 Carbon Dioxide 26.1 mmol/L (21.0-32.0) 01/18/20 06:20 Anion Gap 7.9 mmol/L (3-11) 01/18/20 06:20 BUN 28 mg/dL (7-18) H 01/18/20 06:20 Creatinine 1.24 mg/dL (0.70-1.30) 01/18/20 06:20 Estimated GFR/1.73 m2 58.33 (mL/min/1.73m2) 01/18/20 06:20 Glucose 97 mg/dL (74-106) 01/18/20 06:20 Calcium 8.5 mg/dL (8.5-10.1) 01/18/20 06:20 Magnesium 2.2 mg/dL (1.8-2.4) 01/18/20 06:20 Total Bilirubin 0.2 mg/dL (0.2-1.0) 01/18/20 06:20 AST 15 U/L (15-37) 01/18/20 06:20 ALT 19 U/L (16-63) 01/18/20 06:20 Alkaline Phosphatase 78 U/L (46-116) 01/18/20 06:20 C-Reactive Protein 0.08 mg/dL (0.0-0.3) 01/18/20 06:20 Total Protein 6.8 g/dL (6.4-8.2) 01/18/20 06:20 Albumin 3.1 g/dL (3.4-5.0) L 01/18/20 06:20
[2020-01-19] MEDS: Normal Saline Flush 10 ML SYR IVP ×2 (16:10→23:18)
[2020-01-19] MEDS: Simvastatin 20 MG TAB PO (21:43)
[2020-01-19] MEDS: Insulin Glargine 300 UNITS/3 ML PEN 13 UNITS SC (21:43)
[2020-01-20] MEDS: Normal Saline Flush 10 ML SYR IVP ×3 (04:07→23:49)
[2020-01-20] MEDS: Normal Saline 500 ML 30 ML IV (04:08)
[2020-01-20 07:24] VITALS: BP 119/73; PULSE 85; RESP 18; TEMP 37.2; O2SAT 93
[2020-01-20] MEDS: Normal Saline Flush 10 ML SYR 20 ML IVP ×2 (07:39→20:06)
[2020-01-20] MEDS: Magnesium Chloride 64 MG TABCR PO ×2 (07:39→20:05)
[2020-01-20] MEDS: Folic Acid 1 MG TAB PO (07:40)
[2020-01-20] MEDS: Multivitamin TAB 1 TAB PO (07:40)
[2020-01-20] MEDS: Docusate Sodium 100 MG CAP PO (07:40)
[2020-01-20] MEDS: buPROPion-XL 150 MG TABCR 300 MG PO (07:40)
[2020-01-20] MEDS: Cyanocobalamin 500 MCG TAB 1000 MCG PO (07:40)
[2020-01-20] MEDS: Apixaban 5 MG TAB PO ×2 (07:40→20:05)
[2020-01-20] MEDS: Pantoprazole 40 MG TABCR PO ×2 (07:40→20:05)
[2020-01-20] MEDS: Mometasone 220 MCG 14 DOSE INHALER 2 PUFF IH ×2 (07:51→20:01)
[2020-01-20] MEDS: Insulin Aspart 300 UNITS/3 ML PEN SC ×4 (08:40→16:53)
--- NOTE | 2020-01-20 08:56 | CMACTNOTE_ITS ---
Care Management Activity Note Koko continues to enjoy ambulating through the hallways when able and reports enjoying watching TV. CM continues to review additional options and activity cart. He remains pleasant in interaction, but not interested in additional activities. He will return to [place] once his IV ABX treatment is completed, anticipate d 02/07/20.
[2020-01-20] MEDS: Ferrous Gluconate 324 MG TAB PO (09:17)
[2020-01-20] MEDS: Simvastatin 20 MG TAB PO (21:21)
[2020-01-20] MEDS: Insulin Glargine 300 UNITS/3 ML PEN 13 UNITS SC (21:21)
[2020-01-21] MEDS: Normal Saline Flush 10 ML SYR IVP (04:03)
[2020-01-21 07:18] VITALS: BP 131/79; PULSE 79; RESP 18; TEMP 36.7; O2SAT 96
[2020-01-21] MEDS: Mometasone 220 MCG 14 DOSE INHALER 2 PUFF IH ×2 (07:40→19:51)
[2020-01-21] MEDS: Insulin Aspart 300 UNITS/3 ML PEN SC ×5 (09:34→16:59)
[2020-01-21] MEDS: Normal Saline 500 ML 50 ML IV (09:35)
[2020-01-21] MEDS: Multivitamin TAB 1 TAB PO (09:36)
[2020-01-21] MEDS: buPROPion-XL 150 MG TABCR 300 MG PO (09:36)
[2020-01-21] MEDS: Pantoprazole 40 MG TABCR PO ×2 (09:36→19:50)
[2020-01-21] MEDS: Normal Saline Flush 10 ML SYR 20 ML IVP ×2 (09:36→19:50)
[2020-01-21] MEDS: Apixaban 5 MG TAB PO ×2 (09:36→19:50)
[2020-01-21] MEDS: Cyanocobalamin 500 MCG TAB 1000 MCG PO (09:37)
[2020-01-21] MEDS: Docusate Sodium 100 MG CAP PO (09:37)
[2020-01-21] MEDS: Ferrous Gluconate 324 MG TAB PO (09:37)
[2020-01-21] MEDS: Folic Acid 1 MG TAB PO (09:37)
[2020-01-21] MEDS: Magnesium Chloride 64 MG TABCR PO ×2 (09:38→19:51)
[2020-01-21] MEDS: Simvastatin 20 MG TAB PO (21:44)
[2020-01-21] MEDS: Insulin Glargine 300 UNITS/3 ML PEN 13 UNITS SC (21:44)
[2020-01-22] MEDS: Normal Saline Flush 10 ML SYR IVP ×2 (00:12→10:00)
[2020-01-22 07:30] VITALS: BP 146/74; PULSE 101; RESP 18; TEMP 36.8; O2SAT 89
[2020-01-22 08:00] VITALS: RESP 28; O2SAT 88
[2020-01-22] MEDS: Insulin Aspart 300 UNITS/3 ML PEN SC ×3 (08:00→12:29)
[2020-01-22] MEDS: Albuterol HFA 8 GM 60 PUFF INH IH (08:14)
[2020-01-22] MEDS: Normal Saline Flush 10 ML SYR 20 ML IVP (08:15)
--- NOTE | 2020-01-22 08:30 | DI.RAD_ITS ---
EXAM: XR PORTABLE CHEST AP CLINICAL HISTORY: SOB, requiring oxygen TECHNIQUE: 2D digital imaging was performed. COMPARISON: XR PORTABLE CHEST AP POST LINE from 01/05/2019 CT CHEST WO from 03/24/2019 CT CHEST PE CTA from 12/24/2019 FINDINGS: The heart size is normal. There is mediastinal shift toward the right which was not present on the p revious exam. There are dense infiltrates seen in the upper and lower lobes. Compared with the prev ious CT, there is increased of the infiltrates in the right upper lobe and some clearing of the right lower lobe infiltrates. The left lung is clear. IMPRESSION: Right upper and lower lobe infiltrates. There is mediastinal shift toward the right.
--- NOTE | 2020-01-22 09:23 | DI.CT_ITS ---
EXAM: CT CHEST WO CLINICAL HISTORY: SOB, requiring oxygen TECHNIQUE: Imaging Protocol: Axial computed tomography images with coronal and sagittal reformatted images were created and reviewed CONTRAST MATERIAL: Noncontrast COMPARISON: CT CHEST WO from 03/24/2019 CT CHEST PE CTA from 12/24/2019 XR PORTABLE CHEST AP from 01/22/2020 FINDINGS: Tracheobronchial tree: Patent where visualized. Mediastinum and Ying: No dominant adenopathy or fluid collection. Pulmonary parenchyma: There are irregular infiltrates in the right upper, middle and lower lobes. Th e infiltrates have a somewhat peribronchial distribution. The left lung appears clear. There are mi ld underlying emphysematous changes. Pleura: No effusion or pneumothorax. Heart: The heart is not dilated. Mild coronary artery calcifications are seen. Aorta: Thoracic aorta non-dilated. Mild calcification. Upper abdomen: Unremarkable. Lymph nodes: Small reactive mediastinal lymph nodes. Bones: Mild degenerative changes.. Soft tissues: Right gynecomastia. IMPRESSION: Right upper, middle and lower lobe pneumonia. RADIATION DOSE DELIVERED: Total DLP DATA REPOSITORY: All CT scans at this facility are submitted to the National Radiology Data Registry (NRDR) Dose Index Registry (DIR) with the [employer] ([employer]). RADIATION OPTIMIZATION: All CT scans at this facility use at least one of these dose optimization te chniques: automated exposure control; mA and/or kV adjustment per patient size (includes targeted exa ms where dose is matched to clinical indication); or iterative reconstruction.
[2020-01-22 09:24] VITALS: O2SAT 93
[2020-01-22] MEDS: Mometasone 220 MCG 14 DOSE INHALER 2 PUFF IH (09:27)
[2020-01-22 09:32] VITALS: RESP 28
[2020-01-22 09:36] VITALS: O2SAT 99
[2020-01-22 09:40] LABS: Absolute Eosinophil Count 0.02 k/cumm (0.0-0.7); Absolute Monocyte Count 1.05 k/cumm (0.11-0.7); Eosinophils % 0.1; HCT 33.3 % (40.0-50.0); HGB 10.6 g/dL (13.5-17.5); Immature Grans % 0.4 %; Lymphocytes % 2.3; Mean Corp. HGB Concentration 31.8 g/dL (32.0-36.0); Mean Corpuscular Hemoglobin 28.4 pg (27.0-33.0); Mean Corpuscular Volume 89.3 fL (80-95); Monocytes % 4.3; Neutrophils % 92.9; Platelet Count 278 x1000/uL (130-400); RBC 3.73 m/cumm (4.50-6.00); White Blood Cell Count 24.36 k/cumm (4.4-10.8)
[2020-01-22 09:43] LABS: Absolute Lymphocyte Count 0.56 k/cumm (1.2-3.4); Absolute Neutrophil Count 22.63 k/cumm (1.2-6.7)
[2020-01-22 09:52] LABS: Anion Gap 6.5 mmol/L (3-11); BUN 27 mg/dL (7-18); CO2 24.5 mmol/L (21.0-32.0); Calcium 8.4 mg/dL (8.5-10.1); Chloride 103 mmol/L (98-107); Estimated GFR 55.23 (mL/min/1.73m2); Glucose 282 mg/dL (74-106); Potassium 4.5 mmol/L (3.5-5.1); Sodium 134 mmol/L (136-145)
[2020-01-22 09:57] LABS: Lactate 2.5 mmol/L (0.6-1.4)
[2020-01-22] MEDS: Cyanocobalamin 500 MCG TAB 1000 MCG PO (09:57)
[2020-01-22] MEDS: buPROPion-XL 150 MG TABCR 300 MG PO (09:57)
[2020-01-22] MEDS: Folic Acid 1 MG TAB PO (09:57)
[2020-01-22] MEDS: Ferrous Gluconate 324 MG TAB PO (09:58)
[2020-01-22] MEDS: Docusate Sodium 100 MG CAP PO (09:59)
[2020-01-22] MEDS: Magnesium Chloride 64 MG TABCR PO (09:59)
[2020-01-22] MEDS: Multivitamin TAB 1 TAB PO (09:59)
[2020-01-22] MEDS: Apixaban 5 MG TAB PO (09:59)
[2020-01-22] MEDS: Pantoprazole 40 MG TABCR PO (09:59)
[2020-01-22 10:06] LABS: RBC Morphology Normal
[2020-01-22 10:07] LABS: Diff Comment Agrees w/ Instrument
[2020-01-22 10:16] LABS: D-Dimer 725 ng/mlFEU (<500)
[2020-01-22 10:25] LABS: Procalcitonin 0.2 ng/mL
--- NOTE | 2020-01-22 11:56 | DSE_ITS ---
Date of service: 01/22/20 Time of Service: 11:56 DS: Diagnosis Discharge Diagnosis (1) MSSA bacteremia: Start date: 01/22/20 Start time: 11:57 Status: Acute Asessment and Plan: Source lungs with positive blood cultures on 12/24/2019 for MSSA pansensitiveInitiated on oxacillin. Repeat blood cultures were negative, transferred to status for 6 weeks of IV therapy on oxacillin. However today severe SOB requiring oxygen, work up revealing lactate 2.5, WBC 24.95 last WBC 9.5 procalcitonin .2, Sodium 134. CT chest pending. XRAY with Right upper and lower lobe infiltrates. Will make acute care (2) Non-insulin dependent type 2 diabetes mellitus: Start date: 01/22/20 Start time: 12:01 Status: Chronic Asessment and Plan: Continue to monitor blood sugars. (3) Hypertension: Start date: 01/22/20 Start time: 12:02 Status: Chronic Asessment and Plan: Continue home dosing HTN medication (4) GERD (gastroesophageal reflux disease): Start date: 01/22/20 Start time: 12:02 Status: Chronic Asessment and Plan: Continue protonix Discharge Plan Disposition [facility] Condition: Poor Discharge Details Reason For Visit: BACTEREMIA Admit Date/Time: 01/06/20 10:19 Admit Provider: Glynn Jimenez Attending Provider: Glynn Jimenez Primary Care Provider: Vinnie Black Hospital Course Hospital Course: his is a 64-year-old male with a history of previous PE, essential hypertension, type 2 diabetes mellitus, previous pneumonia with lung abscess, schizoaffective disorder and GERD . Who was diagnosed with bilateral pneumonia and placed on vancomycin and cefepime and admitted to the respiratory care ICU pending COVID-19 results. COVID-19 was ultimately negative. His blood cultures grew MSSA and he was changed to oxicillin. [place] [facility] [place] and recommended continuing treatment with weekly labs to monitor. He has been afebrile and hemodynamically stable. He underwent an echo that showed reduced EF 45-50%, no vegetation on leaflets however without ability to do SANJUANA will treat like endocarditis with antbx for 6 weeks. His respiratory status returned to baseline, he was oxygenating well on room air, hemodynamically stable. He is eating and drinking and bowels and bladder f unctioning well. He was discharged to [facility] care on 01/07/2020 to complete 6 weeks of IV antibiotics. His last positive blood culture was on December 25, he had a negative blood culture on December 28, 2019. Today however he is complaining of SOB, oxygen saturation was 88 and he is requiring oxygen. Stat CXR done revealing right upper and lower lobe infilitrates, lab ordered stat revealing WBC at 24 up from 9 on swing bed admission, lactate 2.5, procalitonin 0.3, sodium 134. CT obtained with RU, Middle and lower lobe pneumonia. Also question COVID, he was initially r/o however at time of r/o there was a positive patient in unit and once on the floor he had been ambulatory around m/s unit without mask for about 2 days, for this a repeat COVID will be done. He is being transferred back to acute care for this reason. Home Meds and New Rx's Prescriptions: No Action ferrous gluconate 324 mg (38 mg iron) tablet 324 mg PO DAILY RF: 0 pioglitazone [Actos] 30 mg tablet 30 mg PO DAILY RF: 0 simvastatin 20 mg tablet 20 mg PO QHS RF: 0 Anoro Ellipta 62.5-25 mcg/actuation blister with device 1 inh IH DAILY RF: 0 bupropion HCl [Wellbutrin XL] 300 mg tablet extended release 24 hr 300 mg PO QAM RF: 0 calcium carbonate 200 mg calcium (500 mg) Tablet,Chewable 500 mg PO TID PRN PRNQty: 0 RF: 0 alum-mag hydroxide-simeth [Mag-Al Plus] 200-200-20 mg/5 mL Suspension 30 ml PO Q2H PRN PRNQty: 0 RF: 0 metformin 500 mg Tablet 1,500 mg PO DAILY Qty: 90 RF: 0 Eliquis 5 mg Tablet 5 mg PO BID Qty: 60 RF: 0 multivitamin [Multiple Vitamins] Tablet 1 tab PO DAILY Qty: 30 RF: 0 cyanocobalamin (vitamin B-12) [Vitamin B-12] 500 mcg Tablet 1,000 mcg PO DAILY Qty: 60 RF: 0 pantoprazole 40 mg Tablet,Delayed Release (Dr/Ec) 40 mg PO BID@0730,1999 Qty: 30 RF: 0 docusate sodium [Colace] 100 mg Capsule 100 mg PO DAILY Qty: 30 RF: 0 folic acid 1 mg Tablet 1 mg PO DAILY Qty: 30 RF: 0 magnesium chloride [Mag 64] 64 mg Tablet,Delayed Release (Dr/Ec) 64 mg PO BID Qty: 30 RF: 0 metformin 1,000 mg Tablet 1,000 mg PO .QHS RF: 0 ziprasidone HCl [Geodon] 80 MG capsule 160 mg PO .QHS RF: 0 ziprasidone HCl [Geodon] 80 MG capsule 80 mg PO DAILY RF: 0 clozapine [Clozaril] 100 MG tablet 200 mg PO DAILY RF: 0 clozapine [Clozaril] 100 MG tablet 375 mg PO .QHS RF: 0 acetaminophen [Mapap Extra Strength] 500 MG tablet 1,000 mg PO .Q8HRS RF: 0 Flovent HFA 120 PUFF HFA aerosol inhaler 2 puff Inhalation BID RF: 0 Discharge Instructions Activity:: Activity as Tolerated Equipment/Supplies:: No Equipment Needed Diet:: As Tolerated Discharge Orders Discharge Orders: Discharge Order (Routine); Ordered 01/22/20 Ordered By: Ellen Chanel DS: Summary Status at Discharge Functional status at discharge: independent ambulation Overall status at discharge: patient is not back to baseline Mental Status: mental status grossly normal Speech and Movement: speech and movement normal Mood: congruent mood Affect: normal affect Exam Narrative Exam Narrative: Elderly male SOB. pink warm dry and well perfused. Neuro He is alert and oriented person place time circumstance. Lungs are with rhonchi, rales to right upper side. diminished breath sounds at the right lung base but overall there is improved aeration. Heart regular rate and rhythm without murmur rub or gallop. Abdomen soft and nontender, nondistention. Extremities without peripheral cyanosis, or edema. psyche: normal mood and affect, appropriate Psych Mental Status: mental status grossly normal Speech and Movement: speech and movement normal Mood: congruent mood Affect: normal affect DS: Data Vitals/I&O Vitals and I&O: Vital Signs Temperature 36.8 C 01/22/20 07:30 Temperature Source Temporal Artery Scan 01/22/20 07:30 Pulse 101 H 01/22/20 07:30 Pulse Rhythm Regular 01/21/20 20:45 Respiratory Rate 28 H 01/22/20 09:32 Respiratory Effort Incrsd Work of Breathing 01/22/20 09:32 Respiratory Depth Deep 01/22/20 09:32 Respiratory Pattern Normal 01/22/20 09:32 Blood Pressure 146/74 H 01/22/20 07:30 Pulse Oximetry 99 01/22/20 09:36 Oxygen Delivery Method Nasal Cannula 01/22/20 09:36 Oxygen Flow Rate 4.5 01/22/20 09:36 Pain Level 0 01/21/20 07:18 Intake & Output 01/21/20 01/21/20 01/22/20 11:59 23:59 11:59 Intake Total 150 / 790 640 / 790 100 / 100 Balance 150 / 790 640 / 790 100 / 100 Intake: IV 150 / 300 150 / 300 100 / 100 Oral 490 / 490 Other: Urine Appearance Clear Clear Data Completed and Pending Completed studies during hospitalization [Text1]: Exam(s) a RAD:XR portable chest AP EXAM: XR PORTABLE CHEST AP CLINICAL HISTORY: SOB, requiring oxygen TECHNIQUE: 2D digital imaging was performed. COMPARISON: XR PORTABLE CHEST AP POST LINE from 01/05/2019 CT CHEST WO from 03/24/2019 CT CHEST PE CTA from 12/24/2019 FINDINGS: The heart size is normal. There is mediastinal shift toward the right which was not present on the previous exam. There are dense infiltrates seen in the upper and lower lobes. Compared with the previous CT, there is increased of the infiltrates in the right upper lobe and some clearing of the right lower lobe infiltrates. The left lung is clear. IMPRESSION: Right upper and lower lobe infiltrates. There is mediastinal shift toward the right. Patient Name: ALIVIA CARPENTER #: [id number]: MS Ordering Provider: Ellen Chanel NPAccount #: [id number]: ADM IN Primary Care Provider: Vinnie Black of Exam: 01/22/20ex: M : 1955ge: 64 Exam(s) a CT:CT chest wo EXAM: CT CHEST WO CLINICAL HISTORY: SOB, requiring oxygen TECHNIQUE: Imaging Protocol: Axial computed tomography images with coronal and sagittal reformatted images were created and reviewed CONTRAST MATERIAL: Noncontrast COMPARISON: CT CHEST WO from 03/24/2019 CT CHEST PE CTA from 12/24/2019 XR PORTABLE CHEST AP from 01/22/2020 FINDINGS: Tracheobronchial tree: Patent where visualized. Mediastinum and Ying: No dominant adenopathy or fluid collection. Pulmonary parenchyma: There are irregular infiltrates in the right upper, middle and lower lobes. The infiltrates have a somewhat peribronchial distribution. The left lung appears clear. There are mild underlying emphysematous changes. Pleura: No effusion or pneumothorax. Heart: The heart is not dilated. Mild coronary artery calcifications are seen. Aorta: Thoracic aorta non-dilated. Mild calcification. Upper abdomen: Unremarkable. Lymph nodes: Small reactive mediastinal lymph nodes. Bones: Mild degenerative changes.. Soft tissues: Right gynecomastia. IMPRESSION: Right upper, middle and lower lobe pneumonia. Labs on day of discharge: Labs from last 24 hours 01/22/20 01/22/20 01/22/20 10:00 09:28 09:28 WBC RBC Hgb Hct MCV MCH MCHC RDW Plt Count MPV Immature Gran % Neutrophils % Lymphocytes % Monocytes % Eosinophils % Basophils % Absolute Neutrophils Absolute Lymphocytes Absolute Monocytes Absolute Eosinophils Absolute Basophils Differential Comment RBC Morphology D-Dimer 725 H Sodium Potassium Chloride Carbon Dioxide Anion Gap BUN Creatinine Estimated GFR/1.73 m2 Glucose Lactate 2.5 H* Calcium Procalcitonin 0.2 COVID-19 PCR Pending Nasopharyn COVID-19 PCR Pending Ref Test Perform Site Pending 01/22/20 01/22/20 09:28 09:28 WBC 24.36 H RBC 3.73 L Hgb 10.6 L Hct 33.3 L MCV 89.3 MCH 28.4 MCHC 31.8 L RDW 17.0 H Plt Count 278 MPV 10.0 Immature Gran % 0.4 Neutrophils % 92.9 Lymphocytes % 2.3 Monocytes % 4.3 Eosinophils % 0.1 Basophils % 0.0 Absolute Neutrophils 22.63 H Absolute Lymphocytes 0.56 L Absolute Monocytes 1.05 H Absolute Eosinophils 0.02 Absolute Basophils 0.00 Differential Comment Agrees w/ instrument RBC Morphology Normal D-Dimer Sodium 134 L Potassium 4.5 Chloride 103 Carbon Dioxide 24.5 Anion Gap 6.5 BUN 27 H Creatinine 1.30 Estimated GFR/1.73 m2 55.23 Glucose 282 H Lactate Calcium 8.4 L Procalcitonin COVID-19 PCR Nasopharyn COVID-19 PCR Ref Test Perform Site 01/22/20 11:48 Blood Blood Culture - Pending 01/22/20 11:48 Blood Blood Culture - Pending Preliminary micro results at discharge 01/22/20 11:48 Blood Culture - Pending Blood 01/22/20 11:48 Blood Culture - Pending Blood [facility] Medical History Acute thrombosis of right basilic vein (Inactive) Complication associated with peripherally inserted central catheter (PICC) (Inactive) COPD (chronic obstructive pulmonary disease) (Chronic) Diabetes mellitus (Chronic) GERD (gastroesophageal reflux disease) (Chronic) H/O schizophrenia (Acute) H/O: CVA (cerebrovascular accident) (Acute) Hypertension (Chronic) Non-insulin dependent type 2 diabetes mellitus (Chronic) Oropharyngeal dysphagia (Acute) Pulmonary emboli (Inactive) Schizo affective schizophrenia (Chronic) Family History Mother No problems noted. Social History Smoking/Tobacco Use Status: Former Tobacco Use Tobacco: How many years used: 43 Alcohol Intake: former Drug use: Occasionally Substance use type: marijuana Do you feel safe at home: Yes Do you feel safe in your relationship?: Yes
[2020-01-22 12:13] LABS: C-Reactive Protein 0.14 mg/dL (0.0-0.3)
[2020-01-22] MEDS: Normal Saline 1,000 ML 1000 ML IV (12:28)
[2020-01-23 10:29] LABS: COVID-19 RT-PCR UVMMC Result Negative (Negative)
== END 2020-01-22 13:00 | disposition short-term general hospital (02) | DRG 871 ==
PROVIDERS: Nurse Practitioner Acute Care; Nurse Practitioner Family; Admitting Provider Family Medicine; PCP Specialist/Technologist Athletic Trainer; Visit Provider Internal Medicine
DX: R78.81 Bacteremia (principal); J18.9 Pneumonia, unspecified organism; Z79.2 Long term (current) use of antibiotics; R09.02 Hypoxemia; B95.61 Methicillin susceptible Staphylococcus aureus infection as the cause of diseases classified elsewhere; Z20.828 Contact with and (suspected) exposure to other viral communicable diseases; E11.9 Type 2 diabetes mellitus without complications; I10 Essential (primary) hypertension; K21.9 Gastro-esophageal reflux disease without esophagitis; Z86.711 Personal history of pulmonary embolism; F25.9 Schizoaffective disorder, unspecified; Z71.3 Dietary counseling and surveillance
CPT/HCPCS: 36415; 71250; 80048; 80053; 84145; 85652; 87040; 87077; 94640; 97165; 99233; 99239; 99306; 99309; 99316; U0003; 71045; 83605; 83735; 85025; 85379; 86140; 87186; 99310; J2700; J7512

== ENCOUNTER 2020-01-22 12:29 | Inpatient (IN) | payer MEDICARE, MEDICAID, SELFPAY ==
--- NOTE | 2020-01-22 12:40 | W.PM.HP.N ---
Date of service: 01/22/20 Time of Service: 12:40 Assessment and Plan Assessment and plan (1) MSSA bacteremia: Start date: 01/22/20 Start time: 12:42 Status: Acute Assessment and plan: Source lungs with positive blood cultures on 12/24/2019 for MSSA pansensitive. Initiated on oxacillin. Repeat blood cultures were negative, transferred to status for 6 weeks of IV therapy on oxacillin. However today severe SOB requiring oxygen, work up revealing lactate 2.5, WBC 24.95 last WBC 9.5 procalcitonin .2, Sodium 134. CT chest with worsening upper and middle lobe pneumonia. XRAY with Right upper and lower lobe infiltrates. Call to ID at [facility] [place], waiting for return call. (2) Non-insulin dependent type 2 diabetes mellitus: Start date: 01/22/20 Start time: 12:44 Status: Chronic Assessment and plan: Monitor bgl. SSI sensitive. (3) Hypertension: Start date: 01/22/20 Start time: 12:45 Status: Chronic Assessment and plan: countinue medication Qualifiers: Hypertension type: essential hypertension Qualified Code(s): I10 - Essential (primary) hypertension (4) GERD (gastroesophageal reflux disease): Start date: 01/22/20 Start time: 12:47 Status: Chronic Assessment and plan: continue protonix Qualifiers: Esophagitis presence: esophagitis presence not specified Qualified Code(s): K21.9 - Gastro-esophageal reflux disease without esophagitis (5) Pneumonia: Start date: 01/22/20 Start time: 12:48 Status: Acute Assessment and plan: Source for bacteremia, see above. Qualifiers: Pneumonia type: due to unspecified organism Laterality: right Lung location: lower lobe of lung Qualified Code(s): J18.9 - Pneumonia, unspecified organism (6) Acidosis, lactic: Start date: 01/22/20 Start time: 12:48 Status: Acute Assessment and plan: Elevated lactate today, 2.5, will give 1 liter saline and recheck tonight. (7) DVT prophylaxis: Start date: 01/22/20 Start time: 12:49 Status: Acute Assessment and plan: On apixaban for PE in past. Will continue above case discussed with Dr. Heredia who is in agreement. History of Present Illness History of Present Illness Chief Complaint: Bacteremia, Pneumonia Narrative: 64-year-old male with a history of previous PE, essential hypertension, type 2 diabetes mellitus, previous pneumonia with lung abscess, schizoaffective disorder and GERD . Who was diagnosed with bilateral pneumonia and placed on vancomycin and cefepime and admitted to the respiratory care ICU pending COVID-19 results. COVID-19 was ultimately negative. His blood cultures grew MSSA and he was changed to oxicillin. ID at [facility] [place] was consulted and recommended continuing treatment with weekly labs to monitor. He has been afebrile and hemodynamically stable. He underwent an echo that showed reduced EF 45-50%, no vegetation on leaflets however without ability to do SANJUANA will treat like endocarditis with antbx for 6 weeks. His respiratory status returned to baseline, he was oxygenating well on room air, hemodynamically stable. He is eating and drinking and bowels and bladder functioning well. He was discharged to [facility] care on 01/07/2020 to complete 6 weeks of IV antibiotics. His last positive blood culture was on December 25, he had a negative blood culture on December 28, 2019. Today however he is complaining of SOB, oxygen saturation was 88 and he is requiring oxygen. Stat CXR done revealing right upper and lower lobe infilitrates, lab ordered stat revealing WBC at 24 up from 9 on swing bed admission, lactate 2.5, procalitonin 0.3, sodium 134. CT obtained with RU, Middle and lower lobe pneumonia. Also question COVID, he was initially r/o however at time of r/o there was a positive patient in unit and once on the floor he had been ambulatory around m/s unit without mask for about 2 days, for this a repeat COVID will be done. He is being transferred back to acute care for this reason. Review of Systems All systems reviewed & are unremarkable except as noted in HPI and below [facility] Medical History Acute thrombosis of right basilic vein (Inactive) Complication associated with peripherally inserted central catheter (PICC) (Inactive) COPD (chronic obstructive pulmonary disease) (Chronic) Diabetes mellitus (Chronic) GERD (gastroesophageal reflux disease) (Chronic) H/O schizophrenia (Acute) H/O: CVA (cerebrovascular accident) (Acute) Hypertension (Chronic) Non-insulin dependent type 2 diabetes mellitus (Chronic) Oropharyngeal dysphagia (Acute) Pulmonary emboli (Inactive) Schizo affective schizophrenia (Chronic) Family History Mother No problems noted. Social History Smoking/Tobacco Use Status: Former Tobacco Use Tobacco: How many years used: 43 Alcohol Intake: former Drug use: Occasionally Substance use type: marijuana Do you feel safe at home: Yes Do you feel safe in your relationship?: Yes Meds Home Medications and Allergies Home Medications Medication Instructions Recorded Confirmed Type Flovent HFA 2 puff INHALATION BID 06/18/17 01/06/20 History acetaminophen [Mapap Extra 1,000 mg PO .Q8HRS 06/18/17 01/06/20 History Strength] clozapine [Clozaril] 200 mg PO DAILY 06/18/17 01/06/20 History clozapine [Clozaril] 375 mg PO .QHS 06/18/17 01/06/20 History ziprasidone HCl [Geodon] 80 mg PO DAILY 06/18/17 01/06/20 History ziprasidone HCl [Geodon] 160 mg PO .QHS 06/18/17 01/06/20 History alum-mag hydroxide-simeth [Mag-Al 30 ml PO Q2H PRN PRN #0 ml 12/05/18 01/06/20 Rx Plus] calcium carbonate 500 mg PO TID PRN PRN #0 tab 12/05/18 01/06/20 Rx Eliquis 5 mg PO BID #60 tab 01/23/19 01/06/20 Rx cyanocobalamin (vitamin B-12) 1,000 mcg PO DAILY #60 tab 01/23/19 01/06/20 Rx [Vitamin B-12] docusate sodium [Colace] 100 mg PO DAILY #30 cap 01/23/19 01/06/20 Rx folic acid 1 mg PO DAILY #30 tab 01/23/19 01/06/20 Rx magnesium chloride [Mag 64] 64 mg PO BID #30 tab 01/23/19 01/06/20 Rx metformin 1,500 mg PO DAILY #90 tab 01/23/19 01/06/20 Rx multivitamin [Multiple Vitamins] 1 tab PO DAILY #30 tab 01/23/19 01/06/20 Rx pantoprazole 40 mg PO BID@0730,2000 #30 tab 01/23/19 01/06/20 Rx bupropion HCl 300 mg 24 hr tablet, 300 mg PO QAM 08/14/19 12/24/19 History extended release ferrous gluconate 324 mg (38 mg 324 mg PO DAILY 08/14/19 01/06/20 History iron) tablet pioglitazone 30 mg tablet 30 mg PO DAILY 08/14/19 01/06/20 History simvastatin 20 mg tablet 20 mg PO QHS 08/14/19 01/06/20 History umeclidinium 62.5 mcg-vilanterol 1 inh IH DAILY 08/14/19 01/06/20 History 25 mcg/actuation powdr for inhalation metformin 1,000 mg PO .QHS 12/24/19 01/06/20 History Allergies Allergy/AdvReac Type Severity Reaction Status Date / Time No Known Allergies Allergy Unverified 12/24/19 14:45 Exam Narrative Exam Narrative: Exam Narrative: Elderly male SOB. pink warm dry and well perfused. Neuro He is alert and oriented person place time circumstance. Lungs are with rhonchi, rales to right upper side. diminished breath sounds at the right lung base but overall there is improved aeration. Heart regular rate and rhythm without murmur rub or gallop. Abdomen soft and nontender, nondistention. Extremities without peripheral cyanosis, or edema. psyche: normal mood and affect, appropriate Psych Mental Status: mental status grossly normal Speech and Movement: speech and movement normal Mood: congruent mood Affect: normal affect COVID-19 Screening Traveled to [place] from one of the affected countries or regions?: N
[2020-01-22 14:13] VITALS: BP 117/63; PULSE 98; RESP 22; TEMP 36.4; O2SAT 94
--- NOTE | 2020-01-22 14:18 | DI.CT_ITS ---
EXAM: CT ABDOMEN PELVIS W CLINICAL HISTORY: r/o abscess. TECHNIQUE: Imaging Protocol: Axial computed tomography images with coronal and sagittal reformatted images were created and reviewed CONTRAST MATERIAL: Intravenous: Omnipaque 350 Contrast volume:structured data in ml Oral: yes / no COMPARISON: UPPER ABD W/WO CONTRAST(P) from 07/31/2017 CT CHEST PE CTA from 12/24/2019 FINDINGS: ABDOMEN: Lung Bases: Right basilar infiltrates. Liver: Normal density. No measurable mass. Gallbladder and biliary tract: No radiodense calculus or dilation. Pancreas: Normal density, no abnormal calcifications or inflammatory process. Spleen: Scattered calcifications. Kidneys: Normal size, contour and axis. No radiodense stones or obstructive uropathy. Exophytic cyst right kidney. No masses seen. Adrenal glands: Stable adrenal hyperplasia. Abdominal Aorta: Abdominal portion non-dilated. Heavily calcified PELVIS: Bladder: Mild wall thickening and diverticula. Bowel: There is a large quantity of stool throughout the colon, greatest in the rectum, consistent wi th constipation. There the stomach contains food. No obstruction or bowel wall thickening. Peritoneal cavity: No ascites, abscess collection or mesenteric inflammatory response. Bones: Mild degenerative disc changes.. Reproductive organs: Status post prostatectomy. Lymph nodes: Unremarkable. Impression: Large quantity of stool, consistent with constipation. No evidence of an abscess.. RADIATION DOSE DELIVERED: Total DLP DATA REPOSITORY: All CT scans at this facility are submitted to the National Radiology Data Registry (NRDR) Dose Index Registry (DIR) with the [employer] (ACR). RADIATION OPTIMIZATION: All CT scans at this facility use at least one of these dose optimization te chniques: automated exposure control; mA and/or kV adjustment per patient size (includes targeted exa ms where dose is matched to clinical indication); or iterative reconstruction.
[2020-01-22] MEDS: Omnipaque 350 MG/ML 100 ML BTL IJ (14:38)
[2020-01-22] MEDS: Bacitracin 1 PACKET (14:45)
[2020-01-22] MEDS: Normal Saline Flush 10 ML SYR IVP (14:57)
--- NOTE | 2020-01-22 15:00 | PDOC.CMPRO ---
Care Management Progress Note Clepamella transitioned from SWB1 to acute status due to increased respiratory issues. Repeat COVID test, with concern for possible new pneumonia. He will have a work up to determine course of treatment moving forward. Please refer to provider note for further information.
[2020-01-22] MEDS: Insulin Aspart 300 UNITS/3 ML PEN SC ×2 (17:30)
[2020-01-22 17:40] VITALS: PULSE 98; RESP 22; TEMP 36.6; O2SAT 4
[2020-01-22] MEDS: CEFEPIME 2 GM in Normal Saline 100 ML IVPB (17:40)
[2020-01-22] MEDS: Apixaban 5 MG TAB PO (20:02)
[2020-01-22] MEDS: Normal Saline Flush 10 ML SYR 20 ML IVP (20:03)
[2020-01-22 20:05] VITALS: BP 112/65; PULSE 79; RESP 17; TEMP 36.7; O2SAT 93
[2020-01-22] MEDS: Magnesium Chloride 64 MG TABCR PO (20:05)
[2020-01-22] MEDS: Pantoprazole 40 MG TABCR PO (20:05)
[2020-01-22] MEDS: Docusate Sodium 100 MG CAP PO (20:05)
[2020-01-22] MEDS: Mometasone 220 MCG 14 DOSE INHALER 2 PUFF IH (20:05)
[2020-01-22] MEDS: Polyethylene Glycol 3350 17 GM PACKET PO (20:06)
[2020-01-22 20:31] LABS: Lactate 1.3 mmol/L (0.6-1.4)
[2020-01-22] MEDS: Normal Saline 1,000 ML 100 ML IV (22:19)
[2020-01-22] MEDS: Simvastatin 20 MG TAB PO (22:19)
[2020-01-22] MEDS: Insulin Glargine 300 UNITS/3 ML PEN 13 UNITS SC (22:21)
[2020-01-22 23:02] LABS: Bilirubin Negative (Negative); Blood Negative (Negative); Clarity Clear (Clear); Glucose Negative (Negative); Ketones Negative (Negative); Leukocyte Esterase Negative (Negative); Nitrite Negative (Negative); Urobilinogen 0.2 EU/dL (Up TO 0.2)
[2020-01-23] VITALS (8 sets, daily range): BP systolic 103–132; BP diastolic 63–75; PULSE 88–93; RESP 18–20; TEMP 36.2–37.5; O2SAT 93–97
[2020-01-23] MEDS: VANCOMYCIN 1,000 MG in Normal Saline 250 ML 166.667 MG IVPB ×2 (01:51→13:50)
[2020-01-23] MEDS: CEFEPIME 2 GM in Normal Saline 100 ML IVPB ×2 (05:11→16:03)
[2020-01-23 06:35] LABS: Abs Immature Grans 0.08 k/cumm (0.0-0.09); Absolute Neutrophil Count 20.53 k/cumm (1.2-6.7); Eosinophils % 0.7; HCT 28.7 % (40.0-50.0); HGB 9.1 g/dL (13.5-17.5); Immature Grans % 0.3 %; Lymphocytes % 6.2; Mean Corp. HGB Concentration 31.7 g/dL (32.0-36.0); Mean Corpuscular Hemoglobin 28.3 pg (27.0-33.0); Mean Corpuscular Volume 89.4 fL (80-95); Mean Platelet Volume 10.4 fL (8.0-11.0); Monocytes % 7.8; Platelet Count 243 x1000/uL (130-400); RBC 3.21 m/cumm (4.50-6.00); RBC Distribution Width 16.7 % (11.8-14.1); White Blood Cell Count 24.15 k/cumm (4.4-10.8)
[2020-01-23 06:45] LABS: Absolute Eosinophil Count 0.17 k/cumm (0.0-0.7); Absolute Monocyte Count 1.88 k/cumm (0.11-0.7)
[2020-01-23 06:47] LABS: Anion Gap 6.9 mmol/L (3-11); BUN 17 mg/dL (7-18); CO2 24.1 mmol/L (21.0-32.0); Calcium 8.4 mg/dL (8.5-10.1); Chloride 112 mmol/L (98-107); Glucose 128 mg/dL (74-106); Potassium 4.1 mmol/L (3.5-5.1); Sodium 143 mmol/L (136-145)
[2020-01-23 06:53] LABS: Anisocytosis 1+; Diff Comment Agrees w/ Instrument
[2020-01-23 06:54] LABS: Poikilocytes 1+
[2020-01-23] MEDS: Albuterol HFA 8 GM 60 PUFF INH IH (09:06)
[2020-01-23] MEDS: buPROPion-XL 150 MG TABCR 300 MG PO (09:07)
[2020-01-23] MEDS: Apixaban 5 MG TAB PO ×2 (09:07→20:37)
[2020-01-23] MEDS: Cyanocobalamin 500 MCG TAB 1000 MCG PO (09:07)
[2020-01-23] MEDS: Folic Acid 1 MG TAB PO (09:08)
[2020-01-23] MEDS: Docusate Sodium 100 MG CAP PO ×2 (09:08→20:34)
[2020-01-23] MEDS: guaiFENesin 600 MG TABCR PO ×2 (09:08→20:38)
[2020-01-23] MEDS: Magnesium Chloride 64 MG TABCR PO ×2 (09:09→20:40)
[2020-01-23] MEDS: Insulin Aspart 300 UNITS/3 ML PEN SC ×5 (09:09→17:22)
[2020-01-23] MEDS: Multivitamin TAB 1 TAB PO (09:10)
[2020-01-23] MEDS: Polyethylene Glycol 3350 17 GM PACKET PO ×2 (09:10→20:33)
[2020-01-23] MEDS: Mometasone 220 MCG 14 DOSE INHALER 2 PUFF IH ×2 (09:10→20:32)
[2020-01-23] MEDS: Pantoprazole 40 MG TABCR PO ×2 (09:10→20:34)
[2020-01-23] MEDS: Normal Saline Flush 10 ML SYR 20 ML IVP ×2 (09:11→20:32)
[2020-01-23] MEDS: Ferrous Gluconate 324 MG TAB PO (09:26)
--- NOTE | 2020-01-23 13:13 | W.PM.PROGNOT ---
Date of Service Date of service: 01/23/20 Time of Service: 13:13 Assessment and Plan Assessment and plan (1) MSSA bacteremia: Start date: 01/23/20 Start time: 13:17 Status: Acute Assessment and plan: On vanco and cefepime day 2. Repeat blood cultures pending. No SOB today, continues to require oxygen. LS diminished on right side no rales wheezing or rhonic, sputum culture pending, mucinex for sputum, continue pulmonary toileting, COVID negative. Urine negative. Other sources of infection r/o Will check HIV, given recurrent lung infections and worsening lung infections despite antibiotic therapy, he also had an abscess approx one year ago when being treated for pneumonia. Question underlying causes of lung disease. Also c/o pain to entire body, achy will schedule tylenol and give prn tramadol for pain. (2) Pneumonia: Start date: 01/23/20 Start time: 13:20 Status: Acute Assessment and plan: Source for bacteremia, see above. Qualifiers: Pneumonia type: due to unspecified organism Laterality: right Lung location: lower lobe of lung Qualified Code(s): J18.9 - Pneumonia, unspecified organism (3) Non-insulin dependent type 2 diabetes mellitus: Start date: 01/23/20 Status: Chronic Assessment and plan: Monitor bgl. SSI sensitive. Continue lantus 13 units. BGL 128 by am labs. (4) Hypertension: Start date: 01/23/20 Start time: 13:27 Status: Chronic Assessment and plan: countinue medication Qualifiers: Hypertension type: essential hypertension Qualified Code(s): I10 - Essential (primary) hypertension (5) GERD (gastroesophageal reflux disease): Start date: 01/23/20 Start time: 13:27 Status: Chronic Assessment and plan: continue protonix Qualifiers: Esophagitis presence: esophagitis presence not specified Qualified Code(s): K21.9 - Gastro-esophageal reflux disease without esophagitis (6) Acidosis, lactic: Start date: 01/23/20 Start time: 13:27 Status: Resolved Assessment and plan: Normalized at 1.3 after one liter NS and IVF at 100. D/C IVF today. (7) DVT prophylaxis: Start date: 01/23/20 Start time: 13:28 Status: Acute Assessment and plan: On apixaban for PE in past. Will continue above case discussed with Dr. Matos who is in agreement. Subjective Subjective Patient reports: still having pain Interval history since last seen: C/o pain today everywhere, achy. Breathing is better requiring 3 L oxygen down from 4. Denies SOB. LSC on right side diminished. Denies CP, SOB, N/V/D. Covid negative. Exam Narrative Exam Narrative: Exam Narrative: Elderly male SOB. pink warm dry and well perfused. Neuro He is alert and oriented person place time circumstance. Lung right side diminished breath LL clear, no rhonchi, wheezing or rales. Heart regular rate and rhythm without murmur rub or gallop. Abdomen soft and nontender, nondistention. Extremities without peripheral cyanosis, or edema. psyche: normal mood and affect, appropriate Psych Mental Status: mental status grossly normal Speech and Movement: speech and movement normal Mood: congruent mood Affect: normal affect Objective Objective Clinical Data: Abnormal lab results 01/23/20 01/23/20 Range/Units 06:00 06:00 WBC 24.15 H (4.4-10.8) k/cumm RBC 3.21 L (4.50-6.00) m/cumm Hgb 9.1 L (13.5-17.5) g/dL Hct 28.7 L (40.0-50.0) % MCHC 31.7 L (32.0-36.0) g/dL RDW 16.7 H (11.8-14.1) % Absolute Neutrophils 20.53 H (1.2-6.7) k/cumm Absolute Monocytes 1.88 H (0.11-0.7) k/cumm Chloride 112 H (98-107) mmol/L Glucose 128 H D (74-106) mg/dL Calcium 8.4 L (8.5-10.1) mg/dL Vital Signs Temperature 36.4 C L 01/23/20 09:26 Temperature Source Tympanic 01/23/20 09:26 Pulse 90 01/23/20 09:26 Pulse Rhythm Regular 01/23/20 09:00 Respiratory Rate 20 01/23/20 09:26 Respiratory Effort Non-Labored 01/23/20 09:00 Respiratory Depth Normal 01/23/20 09:00 Respiratory Pattern Normal 01/23/20 09:00 Blood Pressure 132/73 01/23/20 09:26 Pulse Oximetry 93 L 01/23/20 09:26 Oxygen Delivery Method Nasal Cannula 01/23/20 09:26 Oxygen Flow Rate 3 01/23/20 09:26 Pain Level 0 01/23/20 09:26 Intake & Output 01/22/20 01/23/20 01/23/20 23:59 11:59 23:59 Intake Total 370 / 370 Output Total 800 / 800 2099 / 2099 Balance -430 / -430 -2089 / -2089 Intake: IV 370 / 370 Output: Urine 800 / 800 2099 Other: Urine Color Yellow Yellow Urine Appearance Clear Clear Urine Odor Normal Voiding Methods Urinal Urinal Laboratory Results WBC 24.15 k/cumm (4.4-10.8) H 01/23/20 06:00 RBC 3.21 m/cumm (4.50-6.00) L 01/23/20 06:00 Hgb 9.1 g/dL (13.5-17.5) L 01/23/20 06:00 Hct 28.7 % (40.0-50.0) L 01/23/20 06:00 MCV 89.4 fL (80-95) 01/23/20 06:00 MCH 28.3 pg (27.0-33.0) 01/23/20 06:00 MCHC 31.7 g/dL (32.0-36.0) L 01/23/20 06:00 RDW 16.7 % (11.8-14.1) H 01/23/20 06:00 Plt Count 243 x1000/uL (130-400) 01/23/20 06:00 MPV 10.4 fL (8.0-11.0) 01/23/20 06:00 Immature Gran % 0.3 % 01/23/20 06:00 Neutrophils % 85.0 01/23/20 06:00 Lymphocytes % 6.2 01/23/20 06:00 Monocytes % 7.8 01/23/20 06:00 Eosinophils % 0.7 01/23/20 06:00 Basophils % 0.0 01/23/20 06:00 Absolute Neutrophils 20.53 k/cumm (1.2-6.7) H 01/23/20 06:00 Absolute Lymphocytes 1.50 k/cumm (1.2-3.4) 01/23/20 06:00 Absolute Monocytes 1.88 k/cumm (0.11-0.7) H 01/23/20 06:00 Absolute Eosinophils 0.17 k/cumm (0.0-0.7) 01/23/20 06:00 Absolute Basophils 0.00 k/cumm (0.0-0.2) 01/23/20 06:00 Differential Comment Agrees w/ instrument 01/23/20 06:00 RBC Morphology See below 01/23/20 06:00 Poikilocytosis 1+ 01/23/20 06:00 Anisocytosis 1+ 01/23/20 06:00 Sodium 143 mmol/L (136-145) 01/23/20 06:00 Potassium 4.1 mmol/L (3.5-5.1) 01/23/20 06:00 Chloride 112 mmol/L (98-107) H 01/23/20 06:00 Carbon Dioxide 24.1 mmol/L (21.0-32.0) 01/23/20 06:00 Anion Gap 6.9 mmol/L (3-11) 01/23/20 06:00 BUN 17 mg/dL (7-18) D 01/23/20 06:00 Creatinine 0.90 mg/dL (0.70-1.30) 01/23/20 06:00 Estimated GFR/1.73 m2 >= 60.00 (mL/min/1.73m2) 01/23/20 06:00 Glucose 128 mg/dL (74-106) H D 01/23/20 06:00 Lactate 1.3 mmol/L (0.6-1.4) 01/22/20 20:23 Calcium 8.4 mg/dL (8.5-10.1) L 01/23/20 06:00 Magnesium 2.0 mg/dL (1.8-2.4) 01/23/20 06:00 Urine Color Yellow (Yellow) 01/22/20 20:25 Urine Clarity Clear (Clear) 01/22/20 20:25 Urine pH 6.0 (5-8) 01/22/20 20:25 Ur Specific [place] 1.020 (1.005-1.025) 01/22/20 20:25 Urine Protein Negative mg/dL (Negative) 01/22/20 20:25 Urine Ketones Negative mg/dL (Negative) 01/22/20 20:25 Urine Blood Negative (Negative) 01/22/20 20: Urine Nitrite Negative (Negative) 01/22/20: Urine Bilirubin Negative (Negative) 01/22/20: Urine Urobilinogen 0.2 EU/dL (Up TO 0.2) 01/22/20 20:25 Ur Leukocyte Esterase Negative (Negative) 01/22/20 20:25 Urine Glucose Negative mg/dL (Negative) 01/22/20 20:25
[2020-01-23] MEDS: Acetaminophen 325 MG TAB PO ×3 (13:50→20:35)
[2020-01-23] MEDS: traMADol 50 MG TAB PO (13:51)
--- NOTE | 2020-01-23 15:09 | INITIAL_ITS ---
- If Service Date Differs Date of service: 01/22/20 Time of Service: 08:00 Care Management Initial Assess REASON FOR HOSPITALIZATION:: Bacteremia, Pneumonia PAST MEDICAL HISTORY/PAST SURGICAL HISTORY:: Acute thrombosis of right basilic vein, complication associated with perpherally inserted central catheter (PICC), COPD, DM2, GERD, schizophrenia, CVA, hypertension, oropharyngeal dysphagia, PE, schizo affective schizophrenia. PREVIOUS FUNCTIONAL STATUS/SOCIAL/FAMILY SUPPORTS:: Koko resides at [facility]. His mental health services are managed by [facility] and the [employer] program. He states he is independent with some ADL?s and does not use ambulatory aids. He is dependent on [facility] for medication management, transportation, and meals. Elias had been in an [facility] swing bed, until his worsening respiratory status and concern for infection resulted in transition to acute status. CURRENT FUNCTIONAL STATUS:: Elias continues to require 3L O2 to maintain levels at this time. He has a loose wet cough and is not feeling well, he continues to be closely monitored at this time. ADVANCE DIRECTIVES:: On file at [facility]; Sarai De La Fuente as agent. Annette Marrero as alternate. Has patient been provided with information about the portal?: No Did the patient sign up for the portal?: No CODE STATUS:: DNR/DNI INSURANCE COVERAGE / FINANCIAL ISSUES:: Medicare. Medicaid CURRENT HOME/COMMUNITY SERVICES/EQUIPMENT:: [facility] [employer], [facility], RCT. PRIMARY CARE PHYSICIAN:: Vinnie Black POTENTIAL DISCHARGE NEEDS:: Coordinated return to [facility]. B1 coordination for ongoing IV ABX, if needed per MD. PATIENT/FAMILY EDUCATION NEEDS:: Review of discharge instructions, discuss Ask Me Three. ANTICIPATED BARRIERS TO DISCHARGE:: None identified at this time. TRANSPORTATION:: [facility] or [facility] staff. PLAN:: Koko continues to require O2 at this time. CV-19 test repeated; awaiting result. He continues to be closely monitored and treated at this time. CM continues to follow. Anticipate he may re-enter SWB1 status prior to discharge, per MD.
[2020-01-23] MEDS: Normal Saline Flush 10 ML SYR IVP (16:03)
[2020-01-23] MEDS: Simvastatin 20 MG TAB PO (21:52)
[2020-01-23] MEDS: Insulin Glargine 300 UNITS/3 ML PEN 13 UNITS SC (21:54)
[2020-01-24] VITALS (12 sets, daily range): BP systolic 117–158; BP diastolic 65–86; PULSE 83–121; RESP 18–24; TEMP 37–37.4; O2SAT 80–98
[2020-01-24] MEDS: Acetaminophen 325 MG TAB PO ×6 (00:30→20:13)
[2020-01-24] MEDS: VANCOMYCIN 1,000 MG in Normal Saline 250 ML 166.667 MG IVPB ×2 (02:24→14:51)
[2020-01-24] MEDS: Normal Saline Flush 10 ML SYR IVP (02:28)
[2020-01-24] MEDS: CEFEPIME 2 GM in Normal Saline 100 ML IVPB ×2 (04:10→17:20)
[2020-01-24 07:15] LABS: Abs Immature Grans 0.03 k/cumm (0.0-0.09); HCT 30.1 % (40.0-50.0); HGB 9.4 g/dL (13.5-17.5); Mean Corp. HGB Concentration 31.2 g/dL (32.0-36.0); Mean Corpuscular Hemoglobin 28.1 pg (27.0-33.0); Mean Corpuscular Volume 90.1 fL (80-95); Platelet Count 245 x1000/uL (130-400); RBC 3.34 m/cumm (4.50-6.00); RBC Distribution Width 17.2 % (11.8-14.1)
[2020-01-24 07:25] LABS: Anion Gap 6.5 mmol/L (3-11); BUN 14 mg/dL (7-18); CO2 24.5 mmol/L (21.0-32.0); CREATININE 0.91 mg/dL (0.70-1.30); Calcium 8.3 mg/dL (8.5-10.1); Chloride 109 mmol/L (98-107); Glucose 132 mg/dL (74-106); Potassium 3.9 mmol/L (3.5-5.1); Sodium 140 mmol/L (136-145)
[2020-01-24 07:49] LABS: Absolute Eosinophil Count 0.17 k/cumm (0.0-0.7); Absolute Lymphocyte Count 1.18 k/cumm (1.2-3.4); Absolute Monocyte Count 1.34 k/cumm (0.11-0.7); Absolute Neutrophil Count 14.11 k/cumm (1.2-6.7)
[2020-01-24 07:50] LABS: Anisocytosis 1+; Diff Comment Manual Differential; Hypochromasia 1+; Polychromasia Present
[2020-01-24] MEDS: Mometasone 220 MCG 14 DOSE INHALER 2 PUFF IH (07:57)
[2020-01-24] MEDS: Polyethylene Glycol 3350 17 GM PACKET PO ×2 (08:34→20:15)
[2020-01-24] MEDS: Insulin Aspart 300 UNITS/3 ML PEN SC ×4 (08:34→17:20)
[2020-01-24] MEDS: guaiFENesin 600 MG TABCR PO ×2 (08:35→20:15)
[2020-01-24] MEDS: Folic Acid 1 MG TAB PO (08:36)
[2020-01-24] MEDS: Cyanocobalamin 500 MCG TAB 1000 MCG PO (08:36)
[2020-01-24] MEDS: Apixaban 5 MG TAB PO ×2 (08:36→20:15)
[2020-01-24] MEDS: Docusate Sodium 100 MG CAP PO ×3 (08:36→20:15)
[2020-01-24] MEDS: Cholecalciferol (Vitamin D3) 400 UNIT TAB PO (08:36)
[2020-01-24] MEDS: Ascorbic Acid 500 MG TAB PO (08:37)
[2020-01-24] MEDS: Magnesium Chloride 64 MG TABCR PO ×2 (08:37→20:13)
[2020-01-24] MEDS: Multivitamin TAB 1 TAB PO (08:38)
[2020-01-24] MEDS: Pantoprazole 40 MG TABCR PO ×2 (08:38→20:15)
[2020-01-24] MEDS: buPROPion-XL 150 MG TABCR 300 MG PO (08:39)
[2020-01-24] MEDS: Normal Saline Flush 10 ML SYR 20 ML IVP ×2 (08:40→20:16)
--- NOTE | 2020-01-24 08:40 | PDOC.CMPRO ---
Care Management Progress Note S/O: Elias is requiring O2 with activity. Per MD, he will be on aspiration precautions due to lying down when he eats. Elias was sitting up on his bed, watching television when CM met with him. He asked CM to reach out to his sister; Sarai De La Fuente [phone] to let her know that he had transitioned to acute status. CM reviewed current treatment plan, and likelihood of Elias returning to SWB1 to complete IV ABX treatment, per MD. Elias verbalized understanding and only questioned if he could remain in his own room, stating he likes having his own room and his own place. CM continues to follow. A: 64 year old male admitted to acute status from [facility] swing bed 1, 01/22/20 for bacteremia, pneumonia P: Koko continues to require O2 at this time. CV-19 test repeated; awaiting result. He continues to be closely monitored and treated at this time. CM continues to follow. Anticipate he may re-enter SWB1 status prior to discharge, per MD. CM continues to follow.
[2020-01-24] MEDS: Ferrous Gluconate 324 MG TAB PO (10:18)
--- NOTE | 2020-01-24 10:18 | PGE_ITS ---
Date of Service Date of service: 01/24/20 Time of Service: 10:18 Assessment and Plan Assessment and plan (1) MSSA bacteremia: Start date: 01/24/20 Start time: 11:03 Status: Acute Assessment and plan: On vanco and cefepime day 3. Requiring 3 liters oxygen at this time. One set of blood cx growing gram positive cocci the other NGTD. Continue pulmonary tolieting and current regimen, WBC down today from 24 to 16 (2) Pneumonia: Start date: 01/24/20 Start time: 11:05 Status: Acute Assessment and plan: Source for bacteremia, see above. Qualifiers: Laterality: right Lung location: lower lobe of lung Pneumonia type: due to unspecified organism Qualified Code(s): J18.9 - Pneumonia, unspecified organism (3) Non-insulin dependent type 2 diabetes mellitus: Start date: 01/24/20 Start time: 11:05 Status: Chronic Assessment and plan: Monitor bgl. SSI sensitive. Continue lantus 13 units. (4) Hypertension: Start date: 01/24/20 Start time: 11:05 Status: Chronic Assessment and plan: countinue medication Qualifiers: Hypertension type: essential hypertension Qualified Code(s): I10 - Essential (primary) hypertension (5) GERD (gastroesophageal reflux disease): Start date: 01/24/20 Start time: 11:05 Status: Chronic Assessment and plan: continue protonix Qualifiers: Esophagitis presence: esophagitis presence not specified Qualified Code(s): K21.9 - Gastro-esophageal reflux disease without esophagitis (6) Acidosis, lactic: Start date: 01/24/20 Start time: 11:05 Status: Resolved Assessment and plan: Normalized at 1.3 after one liter NS and IVF at 100. D/C IVF today. (7) DVT prophylaxis: Start date: 01/24/20 Start time: 11:05 Status: Acute Assessment and plan: On apixaban for PE in past. Will continue above case discussed with Dr. Matos who is in agreement. Subjective Subjective Patient reports: feels better and still having pain Interval history since last seen: Pain is improved but still there. Tramadol for breakthrough. He denies Choking after eating, stating its normal. Per nursing he is lying down when eating. This could definitly explain the worsening pneumonia. Recommended patient sit up in chair while consuming food and drink, He denies CP, SOB, N/v/D. Exam Narrative Exam Narrative: Exam Narrative: Elderly male SOB. pink warm dry and well perfused. Neuro He is alert and oriented person place time circumstance. Lung right side diminished breath LL clear, no rhonchi, wheezing or rales. Heart regular rate and rhythm without murmur rub or gallop. Abdomen soft and nontender, nondistention. Extremities without peripheral cyanosis, or edema. psyche: normal mood and affect, appropriate Psych Mental Status: mental status grossly normal Speech and Movement: speech and movement normal Mood: congruent mood Affect: normal affect Objective Objective Clinical Data: Abnormal lab results 01/24/20 01/24/20 Range/Units 07:00 07:00 WBC 16.80 H D (4.4-10.8) k/cumm RBC 3.34 L (4.50-6.00) m/cumm Hgb 9.4 L (13.5-17.5) g/dL Hct 30.1 L (40.0-50.0) % MCHC 31.2 L (32.0-36.0) g/dL RDW 17.2 H (11.8-14.1) % Absolute Neutrophils 14.11 H (1.2-6.7) k/cumm Absolute Lymphocytes 1.18 L (1.2-3.4) k/cumm Absolute Monocytes 1.34 H (0.11-0.7) k/cumm Chloride 109 H (98-107) mmol/L Glucose 132 H (74-106) mg/dL Calcium 8.3 L (8.5-10.1) mg/dL Vital Signs Temperature 37 C 01/24/20 08:04 Temperature Source Temporal Artery Scan 01/24/20 08:04 Pulse 89 01/24/20 08:04 Pulse Rhythm Regular 01/23/20 19:30 Respiratory Rate 22 01/24/20 08:04 Respiratory Effort Non-Labored 01/23/20 19:30 Respiratory Depth Normal 01/23/20 19:30 Respiratory Pattern Normal 01/23/20 19:30 Blood Pressure 158/85 H 01/24/20 08:04 Pulse Oximetry 93 L 01/24/20 08:04 Oxygen Delivery Method Nasal Cannula 01/24/20 08:04 Oxygen Flow Rate 4 01/24/20 08:04 Pain Level 0 01/24/20 08:04 Intake & Output 01/23/20 01/23/20 01/24/20 11:59 23:59 11:59 Intake Total 360 / 1200 840 / 1200 200 / 200 Output Total 2100 / 2100 Balance -1740 / -900 840 / -900 200 / 200 Weight 64.1 kg Intake: IV 360 / 710 350 / 710 Oral 490 / 490 200 / 200 Output: Urine 2099 Other: Urine Color Yellow Urine Appearance Clear Clear Urine Odor Normal Comment independent to WC, urine not visualized. Denies /GI abnormalities Voiding Methods Urinal Toilet Laboratory Results WBC 16.80 k/cumm (4.4-10.8) H D 01/24/20 07:00 RBC 3.34 m/cumm (4.50-6.00) L 01/24/20 07:00 Hgb 9.4 g/dL (13.5-17.5) L 01/24/20 07:00 Hct 30.1 % (40.0-50.0) L 01/24/20 07:00 MCV 90.1 fL (80-95) 01/24/20 07:00 MCH 28.1 pg (27.0-33.0) 01/24/20 07:00 MCHC 31.2 g/dL (32.0-36.0) L 01/24/20 07:00 RDW 17.2 % (11.8-14.1) H 01/24/20 07:00 Plt Count 245 x1000/uL (130-400) 01/24/20 07:00 MPV 10.0 fL (8.0-11.0) 01/24/20 07:00 Immature Gran % 0.0 % 01/24/20 07:00 Neutrophils % 84.0 01/24/20 07:00 Lymphocytes % 7.0 01/24/20 07:00 Monocytes % 8.0 01/24/20 07:00 Eosinophils % 1.0 01/24/20 07:00 Basophils % 0.0 01/24/20 07:00 Absolute Neutrophils 14.11 k/cumm (1.2-6.7) H 01/24/20 07:00 Absolute Lymphocytes 1.18 k/cumm (1.2-3.4) L 01/24/20 07:00 Absolute Monocytes 1.34 k/cumm (0.11-0.7) H 01/24/20 07:00 Absolute Eosinophils 0.17 k/cumm (0.0-0.7) 01/24/20 07:00 Absolute Basophils 0.00 k/cumm (0.0-0.2) 01/24/20 07:00 Differential Comment Manual differential 01/24/20 07:00 RBC Morphology See below 01/24/20 07:00 Polychromasia Present 01/24/20 07:00 Hypochromasia 1+ 01/24/20 07:00 Poikilocytosis 1+ 01/23/20 06:00 Anisocytosis 1+ 01/24/20 07:00 Sodium 140 mmol/L (136-145) 01/24/20 07:00 Potassium 3.9 mmol/L (3.5-5.1) 01/24/20 07:00 Chloride 109 mmol/L (98-107) H 01/24/20 07:00 Carbon Dioxide 24.5 mmol/L (21.0-32.0) 01/24/20 07:00 Anion Gap 6.5 mmol/L (3-11) 01/24/20 07:00 BUN 14 mg/dL (7-18) 01/24/20 07:00 Creatinine 0.91 mg/dL (0.70-1.30) 01/24/20 07:00 Estimated GFR/1.73 m2 >= 60.00 (mL/min/1.73m2) 01/24/20 07:00 Glucose 132 mg/dL (74-106) H 01/24/20 07:00 Lactate 1.3 mmol/L (0.6-1.4) 01/22/20 20:23 Calcium 8.3 mg/dL (8.5-10.1) L 01/24/20 07:00 Magnesium 2.0 mg/dL (1.8-2.4) 01/23/20 06:00 Vit D 1,25-Dihydroxy Cancelled 01/24/20 05:35 Urine Color Yellow (Yellow) 01/22/20 20:25 Urine Clarity Clear (Clear) 01/22/20 20:25 Urine pH 6.0 (5-8) 04/24/20 20:25 Ur Specific [place] 1.020 (1.005-1.025) 01/22/20 20:25 Urine Protein Negative mg/dL (Negative) 01/22/20 20:25 Urine Ketones Negative mg/dL (Negative) 01/22/20 20:25 Urine Blood Negative (Negative) 01/22/20 20:25 Urine Nitrite Negative (Negative) 01/22/20 20:25 Urine Bilirubin Negative (Negative) 01/22/20 20:25 Urine Urobilinogen 0.2 EU/dL (Up TO 0.2) 01/22/20 20:25 Ur Leukocyte Esterase Negative (Negative) 01/22/20 20:25 Urine Glucose Negative mg/dL (Negative) 01/22/20 20:25 HIV 1&2 Antibody Rapid Cancelled 01/24/20 05:35
--- NOTE | 2020-01-24 12:53 | PHA.REVIEW ---
Pharmacy Admission Review - Admission Clinical Review (Last Reviewed 01/22/20 @ 12:41 by Ellen Chanel NP) MSSA bacteremia (Acute) Pneumonia (Acute) DVT prophylaxis (Acute) No Known Allergies Allergy (Unverified 12/24/19 14:45) Height 5 ft 8.11 in Weight 64.1 kg - Comments Comments/Follow Ups: pt will have exercise oximetry test. needs aspiration precautions - Renal Dosing Renal Dosing: BUN 14 mg/dL (7-18) 01/24/20 07:00 Creatinine 0.91 mg/dL (0.70-1.30) 01/24/20 07:00 Medications needing adjustments: Reviewed (crcl ~72ml/min) - Anticoagulation Anticoagulation: Hgb 9.4 g/dL (13.5-17.5) L 01/24/20 07:00 Hct 30.1 % (40.0-50.0) L 01/24/20 07:00 Plt Count 245 x1000/uL (130-400) 01/24/20 07:00 Creatinine 0.91 mg/dL (0.70-1.30) 01/24/20 07:00 DVT Prohphylaxis: Reviewed Medications: Apixaban Therapeutic Anticoagulation: Reviewed Medications: Apixaban - Relevant Labs Sodium 140 mmol/L (136-145) 01/24/20 07:00 Potassium 3.9 mmol/L (3.5-5.1) 01/24/20 07:00 Chloride 109 mmol/L (98-107) H 01/24/20 07:00 Magnesium 2.0 mg/dL (1.8-2.4) 01/23/20 06:00 Electrolytes, C-Reactive P, ESR: Reviewed - DM Control DM Control: Glucose 132 mg/dL (74-106) H 01/24/20 07:00 Finger Stick Blood Glucose 335 Finger Stick Blood Glucose 335 Finger Stick Blood Glucose 335 Finger Stick Blood Glucose 133 Finger Stick Blood Glucose 133 Finger Stick Blood Glucose 133 Insulin Dosing: Reviewed (insulin aspart and glargine) - BP Control BP Control: Blood Pressure 158/85 If elevated: N/A - Qtc Review If Elevated: Reviewed (471) - Current meds Current Medication Order Review: Reviewed (pt needed another asmanex inh. out of stock today so switched to flovent(from home med list)) Antibiotic Activity - Pharmacy Antibiotic Review Pharmacy Antibiotic Activity: Reviewed, no change (vanco trough ordered)
[2020-01-24 13:38] LABS: Vancomycin, Trough 11.7 ug/mL (10.0-20.0)
[2020-01-24] MEDS: Simvastatin 20 MG TAB PO (22:15)
[2020-01-24] MEDS: Famotidine 20 MG TAB PO (22:15)
[2020-01-24] MEDS: Insulin Glargine 300 UNITS/3 ML PEN 13 UNITS SC (22:16)
[2020-01-25] MEDS: VANCOMYCIN 1,000 MG in Normal Saline 250 ML 167 MG IV ×3 (00:29→20:08)
[2020-01-25] MEDS: Acetaminophen 325 MG TAB PO ×5 (00:29→20:07)
[2020-01-25] MEDS: Normal Saline Flush 10 ML SYR IVP ×3 (00:30→20:25)
[2020-01-25] MEDS: traMADol 50 MG TAB PO ×2 (01:34→07:58)
[2020-01-25] MEDS: CEFEPIME 2 GM in Normal Saline 100 ML IVPB ×2 (04:58→15:56)
[2020-01-25 05:57] LABS: Vitamin D 25 Total 21.8 ng/ml (30-100)
[2020-01-25 06:43] LABS: Abs Immature Grans 0.03 k/cumm (0.0-0.09); Absolute Basophil Count 0.01 k/cumm (0.0-0.2); Absolute Eosinophil Count 0.33 k/cumm (0.0-0.7); Absolute Lymphocyte Count 1.21 k/cumm (1.2-3.4); Absolute Monocyte Count 1.35 k/cumm (0.11-0.7); Basophils % 0.1; Eosinophils % 2.8; HCT 29.9 % (40.0-50.0); HGB 9.6 g/dL (13.5-17.5); Immature Grans % 0.3 %; Lymphocytes % 10.1; Mean Corp. HGB Concentration 32.1 g/dL (32.0-36.0); Mean Corpuscular Hemoglobin 28.8 pg (27.0-33.0); Mean Corpuscular Volume 89.8 fL (80-95); Mean Platelet Volume 10.1 fL (8.0-11.0); Monocytes % 11.3; Neutrophils % 75.4; Platelet Count 250 x1000/uL (130-400); RBC 3.33 m/cumm (4.50-6.00); White Blood Cell Count 11.96 k/cumm (4.4-10.8)
[2020-01-25 06:48] LABS: Absolute Neutrophil Count 9.02 k/cumm (1.2-6.7)
[2020-01-25 06:54] LABS: Anion Gap 9.1 mmol/L (3-11); BUN 15 mg/dL (7-18); CO2 25.9 mmol/L (21.0-32.0); CREATININE 1.09 mg/dL (0.70-1.30); Calcium 8.6 mg/dL (8.5-10.1); Chloride 107 mmol/L (98-107); Glucose 145 mg/dL (74-106); Potassium 4.1 mmol/L (3.5-5.1); Sodium 142 mmol/L (136-145)
[2020-01-25 07:14] VITALS: BP 134/78; PULSE 87; RESP 17; TEMP 36.8; O2SAT 96
[2020-01-25 07:31] LABS: ESR 100 mm/hr (1-20)
[2020-01-25] MEDS: Polyethylene Glycol 3350 17 GM PACKET PO ×2 (07:55→20:09)
[2020-01-25] MEDS: Apixaban 5 MG TAB PO ×2 (07:56→20:07)
[2020-01-25] MEDS: Docusate Sodium 100 MG CAP PO ×2 (07:56→20:07)
[2020-01-25] MEDS: Folic Acid 1 MG TAB PO (07:56)
[2020-01-25] MEDS: guaiFENesin 600 MG TABCR PO ×2 (07:56→20:08)
[2020-01-25] MEDS: Ascorbic Acid 500 MG TAB PO (07:56)
[2020-01-25] MEDS: Cyanocobalamin 500 MCG TAB 1000 MCG PO (07:56)
[2020-01-25] MEDS: Cholecalciferol (Vitamin D3) 400 UNIT TAB PO (07:57)
[2020-01-25] MEDS: buPROPion-XL 150 MG TABCR 300 MG PO (07:57)
[2020-01-25] MEDS: Multivitamin TAB 1 TAB PO (07:57)
[2020-01-25] MEDS: Pantoprazole 40 MG TABCR PO ×2 (07:58→20:07)
[2020-01-25] MEDS: Insulin Aspart 300 UNITS/3 ML PEN SC ×5 (07:59→17:14)
[2020-01-25] MEDS: Magnesium Chloride 64 MG TABCR PO ×2 (08:18→20:07)
[2020-01-25 09:51] VITALS: O2SAT 96
[2020-01-25] MEDS: Ferrous Gluconate 324 MG TAB PO (11:07)
[2020-01-25 11:08] VITALS: PULSE 91; PULSE 93; PULSE 94; RESP 24; RESP 28; O2SAT 90; O2SAT 95; O2SAT 97
[2020-01-25 11:14] LABS: HIV-1/2 Ag & Ab Screen Negative (Negative)
--- NOTE | 2020-01-25 11:26 | CMPROGNOTE_ITS ---
- If Service Date Differs Date of service: 01/25/20 Time of Service: 11:26 Care Management Progress Note S/O: Elias was sitting up in a chair when CM met with him. He smiled and stated that he is feeling much better. He talked briefly about the fact that he has 2 sisiers; one lives in [place] and one lives in [place]. He shared that he calls one every Saturday and the other on Tuesdays. Elias will likely return to SB1 status as his condition improves to complete the course of IV antibiotics. A: 64 year old male admitted to acute status from [facility] swing bed 1, 01/22/20 for bacteremia, pneumonia P: Elias remains in acute status at this time. His repeat Covid-19 test was negative, as was the HIV test that was done. Anticipate he will re-enter SWB1 status to complete IV AB course when medically stable. CM will continue to follow and support Elias and his discharge planning needs.
--- NOTE | 2020-01-25 11:58 | W.PM.PROGNOT ---
Date of Service Date of service: 01/25/20 Time of Service: 11:58 Assessment and Plan Assessment and plan (1) MSSA bacteremia: Start date: 01/25/20 Start time: 12:10 Status: Acute Assessment and plan: Improving. This appears to be a different strand of pneumonia on top of MSSA. On vanco and cefepime day 4. One set of blood cx growing gram staph sp. not aureus in the anaerobic bottle, the other NGTD. Continue pulmonary tolieting and current regimen, WBC down today from 24 to 16 to 11 today. Not requiring oxygen, 97% on RA, when ambulating 90-96% much improvement from saturday. He appears much better. (2) Pneumonia: Start date: 01/25/20 Start time: 12:18 Status: Acute Assessment and plan: Source for bacteremia, see above. Qualifiers: Laterality: right Lung location: lower lobe of lung Pneumonia type: due to unspecified organism Qualified Code(s): J18.9 - Pneumonia, unspecified organism (3) Non-insulin dependent type 2 diabetes mellitus: Start date: 01/25/20 Start time: 12:18 Status: Chronic Assessment and plan: Monitor bgl. SSI sensitive. Continue lantus 13 units. (4) Hypertension: Start date: 01/25/20 Start time: 12:18 Status: Chronic Assessment and plan: countinue medication Qualifiers: Hypertension type: essential hypertension Qualified Code(s): I10 - Essential (primary) hypertension (5) GERD (gastroesophageal reflux disease): Start date: 01/25/20 Start time: 12:18 Status: Chronic Assessment and plan: continue protonix Qualifiers: Esophagitis presence: esophagitis presence not specified Qualified Code(s): K21.9 - Gastro-esophageal reflux disease without esophagitis (6) Acidosis, lactic: Start date: 01/25/20 Start time: 12:18 Status: Resolved Assessment and plan: Resolved. Feeling better, improved. (7) DVT prophylaxis: Start date: 01/25/20 Start time: 12:19 Status: Acute Assessment and plan: On apixaban for PE in past. Will continue above case discussed with Dr. Matos who is in agreement. Subjective Subjective Patient reports: feels better Interval history since last seen: Doing well, symptoms improving, not requiring oxygen. WBC improving. Clement states he is feeling much better, Ambulatory, pain improved. Overall he looks much better. Exam Narrative Exam Narrative: Exam Narrative: Elderly male SOB. pink warm dry and well perfused. Neuro He is alert and oriented person place time circumstance. Lung right side diminished breath LL clear, no rhonchi, wheezing or rales. Heart regular rate and rhythm without murmur rub or gallop. Abdomen soft and nontender, nondistention. Extremities without peripheral cyanosis, or edema. psyche: normal mood and affect, appropriate Mental Status: mental status grossly normal Speech and Movement: speech and movement normal Mood: congruent mood Affect: normal affect Objective Objective Clinical Data: Abnormal lab results 01/24/20 01/25/20 01/25/20 Range/Units 07:00 06:30 06:30 WBC 11.96 H (4.4-10.8) k/cumm RBC 3.33 L (4.50-6.00) m/cumm Hgb 9.6 L (13.5-17.5) g/dL Hct 29.9 L (40.0-50.0) % RDW 17.0 H (11.8-14.1) % Absolute Neutrophils 9.02 H (1.2-6.7) k/cumm Absolute Monocytes 1.35 H (0.11-0.7) k/cumm ESR 100 H (1-20) mm/hr Glucose (74-106) mg/dL C-Reactive Protein 10.00 H (0.0-0.3) mg/dL 25-OH Vitamin D Total 21.8 L (30-100) ng/ml 01/25/20 Range/Units 06:30 WBC (4.4-10.8) k/cumm RBC (4.50-6.00) m/cumm Hgb (13.5-17.5) g/dL Hct (40.0-50.0) % RDW (11.8-14.1) % Absolute Neutrophils (1.2-6.7) k/cumm Absolute Monocytes (0.11-0.7) k/cumm ESR (1-20) mm/hr Glucose 145 H (74-106) mg/dL C-Reactive Protein (0.0-0.3) mg/dL 25-OH Vitamin D Total (30-100) ng/ml Vital Signs Temperature 36.8 C 01/25/20 07:14 Temperature Source Tympanic 01/25/20 07:14 Pulse 87 01/25/20 07:14 Pulse Rhythm Regular 01/25/20 01:10 Respiratory Rate 17 01/25/20 07:14 Respiratory Effort 01/25/20 01:10 Respiratory Depth Normal 01/25/20 01:10 Respiratory Pattern Normal 01/25/20 01:10 Blood Pressure 134/78 01/25/20 07:14 Pulse Oximetry 96 01/25/20 09:51 Oxygen Delivery Method Room Air 01/25/20 09:51 Oxygen Flow Rate 0 01/25/20 09:51 Pain Level 4 01/25/20 07:14 Intake & Output 01/24/20 01/24/20 01/25/20 11:59 23:59 11:59 Intake Total 800 / 1640 840 / 1640 1030 / 1030 Output Total 450 / 450 450 / 450 Balance 800 / 1190 390 / 1190 580 / 580 Intake: IV 350 / 710 360 / 710 350 / 350 Oral 450 / 930 480 / 930 680 / 680 Output: Urine 450 / 450 450 / 450 Other: Urine Color Pale Yellow Yellow Urine Appearance Clear Clear Urine Odor Normal None Comment FOUND TO BE INCONTINENT AT THIS TIME OF XLG AMT OF URINE. WASHED PT AND CHANGED BED WITH NEW LINENS AND A NEW GOWN. Stool Size Moderate Stool Characteristics Hard Voiding Methods Toilet Urinal Incontinent Laboratory Results WBC 11.96 k/cumm (4.4-10.8) H 01/25/20 06:30 RBC 3.33 m/cumm (4.50-6.00) L 01/25/20 06:30 Hgb 9.6 g/dL (13.5-17.5) L 01/25/20 06:30 Hct 29.9 % (40.0-50.0) L 01/25/20 06:30 MCV 89.8 fL (80-95) 01/25/20 06:30 MCH 28.8 pg (27.0-33.0) 01/25/20 06:30 MCHC 32.1 g/dL (32.0-36.0) 01/25/20 06:30 RDW 17.0 % (11.8-14.1) H 01/25/20 06:30 Plt Count 250 x1000/uL (130-400) 01/25/20 06:30 MPV 10.1 fL (8.0-11.0) 01/25/20 06:30 Immature Gran % 0.3 % 01/25/20 06:30 Neutrophils % 75.4 01/25/20 06:30 Lymphocytes % 10.1 01/25/20 06:30 Monocytes % 11.3 01/25/20 06:30 Eosinophils % 2.8 01/25/20 06:30 Basophils % 0.1 01/25/20 06:30 Absolute Neutrophils 9.02 k/cumm (1.2-6.7) H 01/25/20 06:30 Absolute Lymphocytes 1.21 k/cumm (1.2-3.4) 01/25/20 06:30 Absolute Monocytes 1.35 k/cumm (0.11-0.7) H 01/25/20 06:30 Absolute Eosinophils 0.33 k/cumm (0.0-0.7) 01/25/20 06:30 Absolute Basophils 0.01 k/cumm (0.0-0.2) 01/25/20 06:30 Differential Comment Manual differential 01/24/20 07:00 RBC Morphology See below 01/24/20 07:00 Polychromasia Present 01/24/20 07:00 Hypochromasia 1+ 01/24/20 07:00 Poikilocytosis 1+ 01/23/20 06:00 Anisocytosis 1+ 01/24/20 07:00 ESR 100 mm/hr (1-20) H 01/25/20 06:30 Sodium 142 mmol/L (136-145) 01/25/20 06:30 Potassium 4.1 mmol/L (3.5-5.1) 01/25/20 06:30 Chloride 107 mmol/L (98-107) 01/25/20 06:30 Carbon Dioxide 25.9 mmol/L (21.0-32.0) 01/25/20 06:30 Anion Gap 9.1 mmol/L (3-11) 01/25/20 06:30 BUN 15 mg/dL (7-18) 01/25/20 06:30 Creatinine 1.09 mg/dL (0.70-1.30) 04/27/20 06:30 Estimated GFR/1.73 m2 >= 60.00 (mL/min/1.73m2) 01/25/20 06:30 Glucose 145 mg/dL (74-106) H 01/25/20 06:30 Lactate 1.3 mmol/L (0.6-1.4) 01/22/20 20:23 Calcium 8.6 mg/dL (8.5-10.1) 01/25/20 06:30 Magnesium 2.0 mg/dL (1.8-2.4) 01/25/20 06:30 C-Reactive Protein 10.00 mg/dL (0.0-0.3) H 01/25/20 06:30 25-OH Vitamin D Total 21.8 ng/ml (30-100) L 01/24/20 07:00 Vit D 1,25-Dihydroxy Cancelled 01/24/20 05:35 Urine Color Yellow (Yellow) 01/22/20 20:25 Urine Clarity Clear (Clear) 01/22/20 20: Urine pH 6.0 (5-8) 01/22/20 20:25 Ur Specific [place] 1.020 (1.005-1.025) 01/22/20 20:25 Urine Protein Negative mg/dL (Negative) 01/22/20 20:25 Urine Ketones Negative mg/dL (Negative) 01/22/20 20:25 Urine Blood Negative (Negative) 01/22/20 20:25 Urine Nitrite Negative (Negative) 01/22/20 20:25 Urine Bilirubin Negative (Negative) 01/22/20 20:25 Urine Urobilinogen 0.2 EU/dL (Up TO 0.2) 01/22/20 20:25 Ur Leukocyte Esterase Negative (Negative) 01/22/20 20:25 Urine Glucose Negative mg/dL (Negative) 01/22/20 20:25 Vancomycin Trough 11.7 ug/mL (10.0-20.0) 01/24/20 13:15 HIV 1&2 Ag/Ab, 4th Gen Negative (Negative) 01/24/20 07:00 HIV 1&2 Antibody Rapid Cancelled 01/24/20 05:35
[2020-01-25 15:32] VITALS: BP 148/80; PULSE 87; RESP 18; TEMP 37; O2SAT 96
[2020-01-25 19:03] VITALS: BP 143/71; PULSE 90; RESP 19; TEMP 36.6; O2SAT 95
[2020-01-25] MEDS: Simvastatin 20 MG TAB PO (22:21)
[2020-01-25] MEDS: Famotidine 20 MG TAB PO (22:21)
[2020-01-25] MEDS: Insulin Glargine 300 UNITS/3 ML PEN 13 UNITS SC (22:33)
[2020-01-25 23:25] VITALS: BP 167/80; PULSE 94; RESP 19; TEMP 36.6; O2SAT 93
--- NOTE | 2020-01-26 | DI.US_ITS ---
APPROVED REPORT EXAM: Comprehensive 2D, Doppler, and color-flow Echocardiogram Patient Location: In-Patient Room/Bed: 214A Entry Engineer: Keerthi Lowry RDCS (AE) Indications: Staph Bacteremia Conclusion This is a limited echo specifically to look for valvular vegetations. Left Ventricle : The Left Ventricular Ejection Fraction is within the low???normal range Valves: There are no valvular vegetations visualized. Compared to echocardiogram dated 01/04/2020: There is no significant change. Wall motion Left Ventricle The Left Ventricular Ejection Fraction is within low-normal range Aortic Valve There is no aortic valvular vegetation. Mitral Valve There is no evidence of mitral valve vegetations. Tricuspid Valve There is no tricuspid valve vegetations. Pulmonic Valve There is no pulmonic valve vegetations.
[2020-01-26] MEDS: Acetaminophen 325 MG TAB PO ×4 (03:39→20:12)
[2020-01-26] MEDS: CEFEPIME 2 GM in Normal Saline 100 ML IVPB ×2 (03:42→15:40)
[2020-01-26 05:27] LABS: Abs Immature Grans 0.05 k/cumm (0.0-0.09); Absolute Basophil Count 0.01 k/cumm (0.0-0.2); Absolute Eosinophil Count 0.38 k/cumm (0.0-0.7); Absolute Lymphocyte Count 1.39 k/cumm (1.2-3.4); Absolute Monocyte Count 1.27 k/cumm (0.11-0.7); Absolute Neutrophil Count 4.88 k/cumm (1.2-6.7); Basophils % 0.1; Eosinophils % 4.8; HGB 9.3 g/dL (13.5-17.5); Immature Grans % 0.6 %; Lymphocytes % 17.4; Mean Corp. HGB Concentration 32.1 g/dL (32.0-36.0); Mean Corpuscular Hemoglobin 28.5 pg (27.0-33.0); Mean Platelet Volume 9.6 fL (8.0-11.0); Monocytes % 15.9; Neutrophils % 61.2; Platelet Count 276 x1000/uL (130-400); RBC 3.26 m/cumm (4.50-6.00); RBC Distribution Width 16.5 % (11.8-14.1); White Blood Cell Count 7.98 k/cumm (4.4-10.8)
[2020-01-26 05:34] LABS: Anion Gap 7.7 mmol/L (3-11); BUN 20 mg/dL (7-18); CO2 26.3 mmol/L (21.0-32.0); CREATININE 0.97 mg/dL (0.70-1.30); Calcium 8.6 mg/dL (8.5-10.1); Chloride 107 mmol/L (98-107); Glucose 101 mg/dL (74-106); Potassium 3.8 mmol/L (3.5-5.1); Sodium 141 mmol/L (136-145)
[2020-01-26 05:37] LABS: C-Reactive Protein 6.61 mg/dL (0.0-0.3)
[2020-01-26 05:39] LABS: Vancomycin, Trough 18.3 ug/mL (10.0-20.0)
[2020-01-26] MEDS: VANCOMYCIN 1,000 MG in Normal Saline 250 ML 167 MG IV ×2 (06:12→16:27)
[2020-01-26 07:34] VITALS: BP 169/91; PULSE 78; RESP 17; TEMP 37.1; O2SAT 92
[2020-01-26] MEDS: Pantoprazole 40 MG TABCR PO ×2 (08:13→20:10)
[2020-01-26] MEDS: guaiFENesin 600 MG TABCR PO ×2 (08:13→20:10)
[2020-01-26] MEDS: Apixaban 5 MG TAB PO ×2 (08:13→20:13)
[2020-01-26] MEDS: Multivitamin TAB 1 TAB PO (08:13)
[2020-01-26] MEDS: buPROPion-XL 150 MG TABCR 300 MG PO (08:13)
[2020-01-26] MEDS: Cyanocobalamin 500 MCG TAB 1000 MCG PO (08:13)
[2020-01-26] MEDS: Folic Acid 1 MG TAB PO (08:13)
[2020-01-26] MEDS: Magnesium Chloride 64 MG TABCR PO ×2 (08:13→20:11)
[2020-01-26] MEDS: Docusate Sodium 100 MG CAP PO ×2 (08:14→20:12)
[2020-01-26] MEDS: Cholecalciferol (Vitamin D3) 400 UNIT TAB PO (08:14)
[2020-01-26] MEDS: Ascorbic Acid 500 MG TAB PO (08:14)
[2020-01-26] MEDS: Polyethylene Glycol 3350 17 GM PACKET PO ×2 (08:16→20:59)
[2020-01-26] MEDS: Insulin Aspart 300 UNITS/3 ML PEN SC ×4 (08:19→17:11)
--- NOTE | 2020-01-26 09:11 | W.PM.PROGNOT ---
Date of Service Date of service: 01/26/20 Time of Service: 09:11 Assessment and Plan Assessment and plan (1) Pneumonia: Status: Acute Assessment and plan: day 5 cefepime and vancomycin, oxygenating well on room air. no fevers. Qualifiers: Laterality: right Lung location: lower lobe of lung Pneumonia type: due to unspecified organism Qualified Code(s): J18.9 - Pneumonia, unspecified organism (2) MSSA bacteremia: Status: Acute Assessment and plan: This appears to be a different strand of pneumonia on top of MSSA. On vanco and cefepime day 5. One set of blood cx growing gram staph sp. not aureus in the anaerobic bottle, the other negative to date. CRP and white count improving. no fevers. Continue pulmonary tolieting and current regimen, . Not requiring oxygen, 97% on RA, when ambulating 90-96% much improvement from saturday. (3) Non-insulin dependent type 2 diabetes mellitus: Status: Chronic Assessment and plan: Monitor bgl. SSI sensitive. Continue lantus 13 unit (4) Hypertension: Status: Chronic Qualifiers: Hypertension type: essential hypertension Qualified Code(s): I10 - Essential (primary) hypertension (5) GERD (gastroesophageal reflux disease): Status: Chronic Assessment and plan: continue protonix Qualifiers: Esophagitis presence: esophagitis presence not specified Qualified Code(s): K21.9 - Gastro-esophageal reflux disease without esophagitis (6) DVT prophylaxis: Status: Acute Assessment and plan: continue apixaban which he is on for history of PE (7) Discharge planning issues: Status: Acute Assessment and plan: likely back to swing level care in next 1-2 days. Subjective Subjective Patient reports: no new complaints, tolerating a regular diet and bowel movement Interval history since last seen: oxygenating well on room air. Exam Const General: cooperative, healthy appearing, comfortable and no acute distress Nutritional Appearance: average body habitus Orientation: alert, awake and oriented x3 HENMT Head: normal to inspection, normocephalic and atraumatic Mouth: oral mucosae normal Resp Effort & Inspection: normal respiratory effort Auscultation: clear to auscultation bilaterally Cardio Rate: regular rate Rhythm: regular rhythm GI Inspection: normal to inspection Palpation: soft Auscultation: normal bowel sounds Skin General skin exam: no rashes or lesions noted Rashes: no rashes Neuro General: patient alert, patient awake and patient oriented x3 Cranial Nerves: CN's II-XI intact bilaterally Extrem General: normal to inspection and full ROM Objective Objective Clinical Data: Abnormal lab results 01/26/20 01/26/20 01/26/20 Range/Units 05:00 05:00 05:00 RBC 3.26 L (4.50-6.00) m/cumm Hgb 9.3 L (13.5-17.5) g/dL Hct 29.0 L (40.0-50.0) % RDW 16.5 H (11.8-14.1) % Absolute Monocytes 1.27 H (0.11-0.7) k/cumm BUN 20 H (7-18) mg/dL C-Reactive Protein 6.61 H (0.0-0.3) mg/dL Vital Signs Temperature 37.1 C 01/26/20 07:34 Temperature Source Temporal Artery Scan 01/26/20 07:34 Pulse 78 01/26/20 07:34 Pulse Rhythm Regular 01/25/20 21:33 Respiratory Rate 17 01/26/20 07:34 Respiratory Effort 01/25/20 21:33 Respiratory Depth Normal 01/25/20 21:33 Respiratory Pattern Normal 01/25/20 21:33 Blood Pressure 169/91 H 01/26/20 07:34 Pulse Oximetry 92 L 01/26/20 07:34 Oxygen Delivery Method Room Air 01/26/20 07:34 Oxygen Flow Rate 0 01/26/20 07:34 Pain Level 0 01/26/20 07:34 Intake & Output 01/25/20 01/25/20 01/26/20 11:59 23:59 11:59 Intake Total 1030 / 2120 1090 / 2120 590 / 590 Output Total 450 / 650 200 / 650 675 / 675 Balance 580 / 1470 890 / 1470 -85 / -85 Intake: IV 350 / 1200 850 / 1200 350 / 350 Oral 680 / 920 240 / 920 240 / 240 Output: Urine 450 / 650 200 / 650 675 / 675 Other: Urine Color Yellow Yellow Urine Appearance Clear Clear Clear Urine Odor None Normal Comment FOUND TO BE INCONTINENT AT THIS TIME OF XLG AMT OF URINE. WASHED PT AND CHANGED BED WITH NEW LINENS AND A NEW GOWN. patient uses toilet independently Voiding Methods Incontinent Incontinent Urinal Incontinent Laboratory Results WBC 7.98 k/cumm (4.4-10.8) D 01/26/20 05:00 RBC 3.26 m/cumm (4.50-6.00) L 01/26/20 05:00 Hgb 9.3 g/dL (13.5-17.5) L 01/26/20 05:00 Hct 29.0 % (40.0-50.0) L 01/26/20 05:00 MCV 89.0 fL (80-95) 01/26/20 05:00 MCH 28.5 pg (27.0-33.0) 01/26/20 05:00 MCHC 32.1 g/dL (32.0-36.0) 01/26/20 05:00 RDW 16.5 % (11.8-14.1) H 01/26/20 05:00 Plt Count 276 x1000/uL (130-400) 01/26/20 05:00 MPV 9.6 fL (8.0-11.0) 01/26/20 05:00 Immature Gran % 0.6 % 01/26/20 05:00 Neutrophils % 61.2 01/26/20 05:00 Lymphocytes % 17.4 01/26/20 05:00 Monocytes % 15.9 01/26/20 05:00 Eosinophils % 4.8 01/26/20 05:00 Basophils % 0.1 01/26/20 05:00 Absolute Neutrophils 4.88 k/cumm (1.2-6.7) 01/26/20 05:00 Absolute Lymphocytes 1.39 k/cumm (1.2-3.4) 01/26/20 05:00 Absolute Monocytes 1.27 k/cumm (0.11-0.7) H 01/26/20 05:00 Absolute Eosinophils 0.38 k/cumm (0.0-0.7) 01/26/20 05:00 Absolute Basophils 0.01 k/cumm (0.0-0.2) 01/26/20 05:00 Differential Comment Manual differential 01/24/20 07:00 RBC Morphology See below 01/24/20 07:00 Polychromasia Present 01/24/20 07:00 Hypochromasia 1+ 01/24/20 07:00 Poikilocytosis 1+ 01/23/20 06:00 Anisocytosis 1+ 01/24/20 07:00 ESR 100 mm/hr (1-20) H 01/25/20 06:30 Sodium 141 mmol/L (136-145) 01/26/20 05:00 Potassium 3.8 mmol/L (3.5-5.1) 01/26/20 05:00 Chloride 107 mmol/L (98-107) 01/26/20 05:00 Carbon Dioxide 26.3 mmol/L (21.0-32.0) 01/26/20 05:00 Anion Gap 7.7 mmol/L (3-11) 01/26/20 05:00 BUN 20 mg/dL (7-18) H 01/26/20 05:00 Creatinine 0.97 mg/dL (0.70-1.30) 01/26/20 05:00 Estimated GFR/1.73 m2 >= 60.00 (mL/min/1.73m2) 01/26/20 05:00 Glucose 101 mg/dL (74-106) 01/26/20 05:00 Lactate 1.3 mmol/L (0.6-1.4) 01/22/20 20:23 Calcium 8.6 mg/dL (8.5-10.1) 01/26/20 05:00 Magnesium 2.0 mg/dL (1.8-2.4) 01/25/20 06:30 C-Reactive Protein 6.61 mg/dL (0.0-0.3) H 01/26/20 05:00 25-OH Vitamin D Total 21.8 ng/ml (30-100) L 01/24/20 07:00 Vit D 1,25-Dihydroxy Cancelled 01/24/20 05:35 Urine Color Yellow (Yellow) 01/22/20 20:25 Urine Clarity Clear (Clear) 01/22/20 20:25 Urine pH 6.0 (5-8) 01/22/20 20:25 Ur Specific [place] 1.020 (1.005-1.025) 01/22/20 20:25 Urine Protein Negative mg/dL (Negative) 01/22/20 20:25 Urine Ketones Negative mg/dL (Negative) 01/22/20 20:25 Urine Blood Negative (Negative) 01/22/20 20:25 Urine Nitrite Negative (Negative) 01/22/20 20:25 Urine Bilirubin Negative (Negative) 01/22/20 20:25 Urine Urobilinogen 0.2 EU/dL (Up TO 0.2) 01/22/20 20:25 Ur Leukocyte Esterase Negative (Negative) 01/22/20 20:25 Urine Glucose Negative mg/dL (Negative) 01/22/20 20:25 Vancomycin Trough 18.3 ug/mL (10.0-20.0) 01/26/20 05:00 HIV 1&2 Ag/Ab, 4th Gen Negative (Negative) 01/24/20 07:00 HIV 1&2 Antibody Rapid Cancelled 01/24/20 05:35
[2020-01-26] MEDS: Ferrous Gluconate 324 MG TAB PO (10:02)
[2020-01-26] MEDS: Normal Saline Flush 10 ML SYR IVP (15:40)
[2020-01-26] MEDS: traMADol 50 MG TAB PO (15:40)
[2020-01-26 15:59] VITALS: BP 148/76; PULSE 87; RESP 18; TEMP 36.8; O2SAT 94
--- NOTE | 2020-01-26 16:40 | PDOC.CMPRO ---
Care Management Progress Note S/O: Elias remains pleasant in interaction, lying in bed watching television. He reports no needs at this time. CM continues to follow. A: 64 year old male admitted to acute status from [facility] swing bed 1, 01/22/20 for bacteremia, pneumonia P: Elias remains in acute status at this time. His repeat Covid-19 test was negative, as was the HIV test that was done. Anticipate he will re-enter SWB1 status to complete IV ABX course when medically stable. CM will continue to follow, coordinate changes in status (return to SWB1) and discharge planning.
[2020-01-26] MEDS: Insulin Glargine 300 UNITS/3 ML PEN 13 UNITS SC (22:25)
[2020-01-26] MEDS: Simvastatin 20 MG TAB PO (22:25)
[2020-01-26] MEDS: Famotidine 20 MG TAB PO (22:25)
[2020-01-26 23:40] VITALS: BP 139/75; PULSE 83; RESP 18; TEMP 37; O2SAT 97
[2020-01-27] MEDS: VANCOMYCIN 1,000 MG in Normal Saline 250 ML 167 MG IV ×3 (02:09→21:09)
[2020-01-27] MEDS: Normal Saline Flush 10 ML SYR IVP ×3 (02:09→21:09)
[2020-01-27] MEDS: Acetaminophen 325 MG TAB PO ×4 (02:09→21:06)
[2020-01-27] MEDS: CEFEPIME 2 GM in Normal Saline 100 ML IVPB ×2 (04:00→15:57)
[2020-01-27 06:52] LABS: Abs Immature Grans 0.06 k/cumm (0.0-0.09); Absolute Basophil Count 0.01 k/cumm (0.0-0.2); Absolute Eosinophil Count 0.37 k/cumm (0.0-0.7); Absolute Lymphocyte Count 1.52 k/cumm (1.2-3.4); Absolute Monocyte Count 1.05 k/cumm (0.11-0.7); Basophils % 0.1; Eosinophils % 5.1; HGB 10.1 g/dL (13.5-17.5); Immature Grans % 0.8 %; Lymphocytes % 20.8; Mean Corp. HGB Concentration 31.6 g/dL (32.0-36.0); Mean Corpuscular Hemoglobin 27.9 pg (27.0-33.0); Mean Corpuscular Volume 88.4 fL (80-95); Mean Platelet Volume 9.7 fL (8.0-11.0); Monocytes % 14.4; Neutrophils % 58.8; Platelet Count 312 x1000/uL (130-400); RBC 3.62 m/cumm (4.50-6.00); RBC Distribution Width 16.1 % (11.8-14.1); White Blood Cell Count 7.31 k/cumm (4.4-10.8)
[2020-01-27 07:08] LABS: Anion Gap 7.5 mmol/L (3-11); BUN 17 mg/dL (7-18); CO2 26.5 mmol/L (21.0-32.0); CREATININE 0.91 mg/dL (0.70-1.30); Calcium 8.9 mg/dL (8.5-10.1); Chloride 106 mmol/L (98-107); Glucose 91 mg/dL (74-106); Sodium 140 mmol/L (136-145)
[2020-01-27] MEDS: Magnesium Chloride 64 MG TABCR PO ×2 (08:17→21:08)
[2020-01-27] MEDS: buPROPion-XL 150 MG TABCR 300 MG PO (08:17)
[2020-01-27 08:18] VITALS: BP 124/75; PULSE 95; RESP 18; TEMP 36.6; O2SAT 92
[2020-01-27] MEDS: Multivitamin TAB 1 TAB PO (08:18)
[2020-01-27] MEDS: Ascorbic Acid 500 MG TAB PO (08:18)
[2020-01-27] MEDS: Folic Acid 1 MG TAB PO (08:18)
[2020-01-27] MEDS: Docusate Sodium 100 MG CAP PO ×2 (08:18→21:05)
[2020-01-27] MEDS: guaiFENesin 600 MG TABCR PO ×2 (08:18→21:04)
[2020-01-27] MEDS: Apixaban 5 MG TAB PO ×2 (08:18→21:04)
[2020-01-27] MEDS: Cholecalciferol (Vitamin D3) 400 UNIT TAB PO (08:18)
[2020-01-27] MEDS: Cyanocobalamin 500 MCG TAB 1000 MCG PO (08:18)
[2020-01-27] MEDS: Pantoprazole 40 MG TABCR PO ×2 (08:18→21:04)
[2020-01-27] MEDS: Polyethylene Glycol 3350 17 GM PACKET PO ×2 (08:19→21:03)
[2020-01-27] MEDS: Insulin Aspart 300 UNITS/3 ML PEN SC ×4 (08:32→17:09)
[2020-01-27] MEDS: Ferrous Gluconate 324 MG TAB PO (10:13)
--- NOTE | 2020-01-27 10:32 | W.PM.PROGNOT ---
Date of Service Date of service: 01/27/20 Time of Service: 10:32 Assessment and Plan Assessment and plan (1) MSSA bacteremia: Status: Acute Assessment and plan: day 5 cefepime and vancomycin, oxygenating well on room air. no fevers (2) Pneumonia: Status: Acute Assessment and plan: This appears to be a different strand of pneumonia on top of MSSA. On vanco and cefepime day 5. One set of blood cx growing gram staph sp. not aureus in the anaerobic bottle, the other negative to date. CRP and white count improving. no fevers. Continue pulmonary tolieting and current regimen, . Not requiring oxygen, 97% on RA, when ambulating 90-96% much improvement from saturday. Qualifiers: Laterality: right Lung location: lower lobe of lung Pneumonia type: due to unspecified organism Qualified Code(s): J18.9 - Pneumonia, unspecified organism (3) Non-insulin dependent type 2 diabetes mellitus: Status: Chronic Assessment and plan: blood sugars are well controlled. Monitor bgl. SSI sensitive. Continue lantus 13 unit (4) DVT prophylaxis: Status: Acute Assessment and plan: continue apixaban which he is on for history of PE (5) Discharge planning issues: Status: Acute Assessment and plan: likely back to swing level care in next 1-2 days. Subjective Subjective Patient reports: no new complaints and feels better Exam Const General: cooperative, healthy appearing, comfortable, no acute distress and well developed Nutritional Appearance: average body habitus Orientation: alert and awake Resp Effort & Inspection: normal respiratory effort Auscultation: clear to auscultation bilaterally Cardio Rate: regular rate Rhythm: regular rhythm GI Inspection: normal to inspection Palpation: soft Auscultation: normal bowel sounds Skin General skin exam: no rashes or lesions noted Neuro General: patient alert and patient awake Speech: speech normal Extrem General: normal to inspection and full ROM Objective Objective Clinical Data: Abnormal lab results 01/27/20 Range/Units 06:30 RBC 3.62 L (4.50-6.00) m/cumm Hgb 10.1 L (13.5-17.5) g/dL Hct 32.0 L (40.0-50.0) % MCHC 31.6 L (32.0-36.0) g/dL RDW 16.1 H (11.8-14.1) % Absolute Monocytes 1.05 H (0.11-0.7) k/cumm Vital Signs Temperature 36.6 C 01/27/20 08:18 Temperature Source Temporal Artery Scan 01/27/20 08:18 Pulse 95 H 01/27/20 08:18 Pulse Rhythm Regular 01/27/20 02:56 Respiratory Rate 18 01/27/20 08:18 Respiratory Effort 01/27/20 02:56 Respiratory Depth Normal 01/27/20 02:56 Respiratory Pattern Normal 01/27/20 02:56 Blood Pressure 124/75 01/27/20 08:18 Pulse Oximetry 92 L 01/27/20 08:18 Oxygen Delivery Method Room Air 01/27/20 08:18 Oxygen Flow Rate 0 01/27/20 08:18 Pain Level 2 01/27/20 08:18 Intake & Output 01/26/20 01/26/20 01/27/20 11:59 23:59 11:59 Intake Total 950 / 1780 830 / 1780 840 / 840 Output Total 675 / 1275 600 / 1275 350 / 350 Balance 275 / 505 230 / 505 490 / 490 Intake: IV 350 / 700 350 / 700 600 / 600 Oral 600 / 1080 480 / 1080 240 / 240 Output: Urine 675 / 1275 600 / 1275 350 / 350 Other: Urine Color Yellow Pale Yellow Urine Appearance Clear Clear Clear Urine Odor Normal None Comment patient uses toilet independently independent in the bathroom patient uses toilet independently Voiding Methods Urinal Urinal Urinal Incontinent Laboratory Results WBC 7.31 k/cumm (4.4-10.8) 01/27/20 06:30 RBC 3.62 m/cumm (4.50-6.00) L 01/27/20 06:30 Hgb 10.1 g/dL (13.5-17.5) L 01/27/20 06:30 Hct 32.0 % (40.0-50.0) L 01/27/20 06:30 MCV 88.4 fL (80-95) 01/27/20 06:30 MCH 27.9 pg (27.0-33.0) 01/27/20 06:30 MCHC 31.6 g/dL (32.0-36.0) L 01/27/20 06:30 RDW 16.1 % (11.8-14.1) H 01/27/20 06:30 Plt Count 312 x1000/uL (130-400) 01/27/20 06:30 MPV 9.7 fL (8.0-11.0) 01/27/20 06:30 Immature Gran % 0.8 % 01/27/20 06:30 Neutrophils % 58.8 01/27/20 06:30 Lymphocytes % 20.8 01/27/20 06:30 Monocytes % 14.4 01/27/20 06:30 Eosinophils % 5.1 01/27/20 06:30 Basophils % 0.1 01/27/20 06:30 Absolute Neutrophils 4.30 k/cumm (1.2-6.7) 01/27/20 06:30 Absolute Lymphocytes 1.52 k/cumm (1.2-3.4) 01/27/20 06:30 Absolute Monocytes 1.05 k/cumm (0.11-0.7) H 01/27/20 06:30 Absolute Eosinophils 0.37 k/cumm (0.0-0.7) 01/27/20 06:30 Absolute Basophils 0.01 k/cumm (0.0-0.2) 01/27/20 06:30 Differential Comment Manual differential 01/24/20 07:00 RBC Morphology See below 01/24/20 07:00 Polychromasia Present 01/24/20 07:00 Hypochromasia 1+ 01/24/20 07:00 Poikilocytosis 1+ 01/23/20 06:00 Anisocytosis 1+ 01/24/20 07:00 ESR 100 mm/hr (1-20) H 01/25/20 06:30 Sodium 140 mmol/L (136-145) 01/27/20 06:30 Potassium 4.0 mmol/L (3.5-5.1) 01/27/20 06:30 Chloride 106 mmol/L (98-107) 01/27/20 06:30 Carbon Dioxide 26.5 mmol/L (21.0-32.0) 01/27/20 06:30 Anion Gap 7.5 mmol/L (3-11) 01/27/20 06:30 BUN 17 mg/dL (7-18) 01/27/20 06:30 Creatinine 0.91 mg/dL (0.70-1.30) 01/27/20 06:30 Estimated GFR/1.73 m2 >= 60.00 (mL/min/1.73m2) 01/27/20 06:30 Glucose 91 mg/dL (74-106) 01/27/20 06:30 Lactate 1.3 mmol/L (0.6-1.4) 01/22/20 20:23 Calcium 8.9 mg/dL (8.5-10.1) 01/27/20 06:30 Magnesium 2.0 mg/dL (1.8-2.4) 01/25/20 06:30 C-Reactive Protein 6.61 mg/dL (0.0-0.3) H 01/26/20 05:00 25-OH Vitamin D Total 21.8 ng/ml (30-100) L 01/24/20 07:00 Vit D 1,25-Dihydroxy Cancelled 01/24/20 05:35 Urine Color Yellow (Yellow) 01/22/20 20:25 Urine Clarity Clear (Clear) 01/22/20 20:25 Urine pH 6.0 (5-8) 01/22/20 20:25 Ur Specific [place] 1.020 (1.005-1.025) 01/22/20 20:25 Urine Protein Negative mg/dL (Negative) 01/22/20 20:25 Urine Ketones Negative mg/dL (Negative) 01/22/20 20:25 Urine Blood Negative (Negative) 01/22/20 20:25 Urine Nitrite Negative (Negative) 01/22/20 20:25 Urine Bilirubin Negative (Negative) 01/22/20 20:25 Urine Urobilinogen 0.2 EU/dL (Up TO 0.2) 01/22/20 20:25 Ur Leukocyte Esterase Negative (Negative) 01/22/20 20:25 Urine Glucose Negative mg/dL (Negative) 01/22/20 20:25 Vancomycin Trough 18.3 ug/mL (10.0-20.0) 01/26/20 05:00 HIV 1&2 Ag/Ab, 4th Gen Negative (Negative) 01/24/20 07:00 HIV 1&2 Antibody Rapid Cancelled 01/24/20 05:35
--- NOTE | 2020-01-27 17:06 | CMPROGNOTE_ITS ---
Care Management Progress Note S/O: Elias continues to be closely monitored. Awaiting ID consult to inform IV ABX needs and treatment plan. CM continues to follow. A: 64 year old male admitted to acute status from [facility] swing bed 1, 01/22/20 for bacteremia, pneumonia P: Elias remains in acute status at this time. His repeat Covid-19 test was negative, as was the HIV test that was done. Anticipate he will re-enter SWB1 status to complete IV ABX course when medically stable. CM will continue to follow, coordinate changes in status (return to SWB1) and discharge planning.
[2020-01-27] MEDS: Famotidine 20 MG TAB PO (21:04)
[2020-01-27] MEDS: Simvastatin 20 MG TAB PO (21:04)
[2020-01-27] MEDS: Insulin Glargine 300 UNITS/3 ML PEN 13 UNITS SC (21:09)
[2020-01-27 23:35] VITALS: BP 162/85; PULSE 90; RESP 17; TEMP 36.3; O2SAT 94
[2020-01-28] MEDS: CEFEPIME 2 GM in Normal Saline 100 ML IVPB (03:14)
[2020-01-28] MEDS: Acetaminophen 325 MG TAB PO ×4 (03:14→19:59)
[2020-01-28 07:03] LABS: Vancomycin, Trough 17.2 ug/mL (10.0-20.0)
[2020-01-28 07:20] VITALS: BP 149/72; PULSE 77; RESP 18; TEMP 37; O2SAT 95
[2020-01-28 07:39] VITALS: O2SAT 98
[2020-01-28] MEDS: Cholecalciferol (Vitamin D3) 400 UNIT TAB PO (08:16)
[2020-01-28] MEDS: Polyethylene Glycol 3350 17 GM PACKET PO ×2 (08:16→19:58)
[2020-01-28] MEDS: Cyanocobalamin 500 MCG TAB 1000 MCG PO (08:16)
[2020-01-28] MEDS: Folic Acid 1 MG TAB PO (08:16)
[2020-01-28] MEDS: Apixaban 5 MG TAB PO ×2 (08:16→19:59)
[2020-01-28] MEDS: Multivitamin TAB 1 TAB PO (08:17)
[2020-01-28] MEDS: guaiFENesin 600 MG TABCR PO ×2 (08:17→19:59)
[2020-01-28] MEDS: Pantoprazole 40 MG TABCR PO ×2 (08:17→19:59)
[2020-01-28] MEDS: Docusate Sodium 100 MG CAP PO ×2 (08:17→19:59)
[2020-01-28] MEDS: Ascorbic Acid 500 MG TAB PO (08:17)
[2020-01-28] MEDS: buPROPion-XL 150 MG TABCR 300 MG PO (08:17)
[2020-01-28] MEDS: Magnesium Chloride 64 MG TABCR PO ×2 (08:17→19:59)
[2020-01-28] MEDS: Normal Saline Flush 10 ML SYR IVP (08:18)
[2020-01-28] MEDS: Insulin Aspart 300 UNITS/3 ML PEN SC ×3 (08:18→17:10)
[2020-01-28] MEDS: VANCOMYCIN 1,000 MG in Normal Saline 250 ML 167 MG IV ×2 (08:18→18:07)
[2020-01-28] MEDS: Ferrous Gluconate 324 MG TAB PO (10:46)
--- NOTE | 2020-01-28 11:16 | W.PM.PROGNOT ---
Date of Service Date of service: 01/28/20 Time of Service: 11:16 Assessment and Plan Assessment and plan (1) MSSA bacteremia: Status: Acute Assessment and plan: continue vancomycin till February 06 to complete course 6 weeks course. repeat echo showed no vegetations. (2) Pneumonia: Status: Acute Assessment and plan: This appears to be a different strand of pneumonia on top of MSSA. completed vanco and cefepime day 04/05. One set of blood cx growing gram staph sp. not aureus in the anaerobic bottle, the other negative to date. CRP and white count improving. no fevers. Continue pulmonary tolieting and current regimen, . Not requiring oxygen, 97% on RA, when ambulating 90-96% much improvement from saturday. Qualifiers: Laterality: right Lung location: lower lobe of lung Pneumonia type: due to unspecified organism Qualified Code(s): J18.9 - Pneumonia, unspecified organism (3) Non-insulin dependent type 2 diabetes mellitus: Status: Chronic Assessment and plan: blood sugars are well controlled. Monitor bgl. SSI sensitive. Continue lantus 13 unit (4) DVT prophylaxis: Status: Acute Assessment and plan: continue apixaban which he is on for history of PE (5) Discharge planning issues: Status: Acute Assessment and plan: likely back to swing level care tomorrow if remains stable off antibiotics. case and plan of care discussed with Dr Matos who is in agreement. Subjective Subjective Patient reports: no new complaints, feels better and tolerating a regular diet Exam Const General: cooperative, healthy appearing, comfortable, no acute distress and well developed Nutritional Appearance: average body habitus Orientation: alert, awake and oriented x3 [facility] Head: normal to inspection, normocephalic and atraumatic Mouth: oral mucosae normal Resp Effort & Inspection: normal respiratory effort Auscultation: clear to auscultation bilaterally Cardio Rate: regular rate Rhythm: regular rhythm GI Inspection: normal to inspection Palpation: soft Auscultation: normal bowel sounds Skin General skin exam: no rashes or lesions noted Rashes: no rashes Neuro General: patient alert, patient awake and patient oriented x3 Cranial Nerves: CN's II-XI intact bilaterally Speech: speech normal Extrem General: normal to inspection and full ROM Objective Objective Clinical Data: Vital Signs Temperature 37.0 C 01/28/20 07:20 Temperature Source Temporal Artery Scan 01/28/20 07:20 Pulse 77 01/28/20 07:20 Pulse Rhythm Regular 01/28/20 08:15 Respiratory Rate 18 01/28/20 07:20 Respiratory Effort Non-Labored 01/28/20 08:15 Respiratory Depth Normal 01/28/20 08:15 Respiratory Pattern Normal 01/28/20 08:15 Blood Pressure 149/72 H 01/28/20 07:20 Pulse Oximetry 98 01/28/20 07:39 Oxygen Delivery Method Room Air 01/28/20 07:39 Oxygen Flow Rate 0 01/28/20 07:39 Pain Level 0 01/28/20 07:20 Intake & Output 01/27/20 01/27/20 01/28/20 11:59 23:59 11:59 Intake Total 840 / 2160 1320 / 2160 260 / 260 Output Total 750 / 750 Balance 90 / 1410 1320 / 1410 260 / 260 Intake: IV 600 / 1200 600 / 1200 20 / 20 Oral 240 / 960 720 / 960 240 / 240 Output: Urine 750 / 750 Other: Urine Color Yellow Urine Appearance Clear Clear Clear Comment patient uses toilet independently patient uses toilet independently Voiding Methods Urinal Laboratory Results WBC 7.31 k/cumm (4.4-10.8) 01/27/20 06:30 RBC 3.62 m/cumm (4.50-6.00) L 01/27/20 06:30 Hgb 10.1 g/dL (13.5-17.5) L 01/27/20 06:30 Hct 32.0 % (40.0-50.0) L 01/27/20 06:30 MCV 88.4 fL (80-95) 01/27/20 06:30 MCH 27.9 pg (27.0-33.0) 01/27/20 06:30 MCHC 31.6 g/dL (32.0-36.0) L 01/27/20 06:30 RDW 16.1 % (11.8-14.1) H 01/27/20 06:30 Plt Count 312 x1000/uL (130-400) 01/27/20 06:30 MPV 9.7 fL (8.0-11.0) 01/27/20 06:30 Immature Gran % 0.8 % 01/27/20 06:30 Neutrophils % 58.8 01/27/20 06:30 Lymphocytes % 20.8 01/27/20 06:30 Monocytes % 14.4 01/27/20 06:30 Eosinophils % 5.1 01/27/20 06:30 Basophils % 0.1 01/27/20 06:30 Absolute Neutrophils 4.30 k/cumm (1.2-6.7) 01/27/20 06:30 Absolute Lymphocytes 1.52 k/cumm (1.2-3.4) 01/27/20 06:30 Absolute Monocytes 1.05 k/cumm (0.11-0.7) H 01/27/20 06:30 Absolute Eosinophils 0.37 k/cumm (0.0-0.7) 01/27/20 06:30 Absolute Basophils 0.01 k/cumm (0.0-0.2) 01/27/20 06:30 Differential Comment Manual differential 01/24/20 07:00 RBC Morphology See below 01/24/20 07:00 Polychromasia Present 01/24/20 07:00 Hypochromasia 1+ 01/24/20 07:00 Poikilocytosis 1+ 01/23/20 06:00 Anisocytosis 1+ 01/24/20 07:00 ESR 100 mm/hr (1-20) H 01/25/20 06:30 Sodium 140 mmol/L (136-145) 01/27/20 06:30 Potassium 4.0 mmol/L (3.5-5.1) 01/27/20 06:30 Chloride 106 mmol/L (98-107) 01/27/20 06:30 Carbon Dioxide 26.5 mmol/L (21.0-32.0) 01/27/20 06:30 Anion Gap 7.5 mmol/L (3-11) 01/27/20 06:30 BUN 17 mg/dL (7-18) 01/27/20 06:30 Creatinine 0.91 mg/dL (0.70-1.30) 01/27/20 06:30 Estimated GFR/1.73 m2 >= 60.00 (mL/min/1.73m2) 01/27/20 06:30 Glucose 91 mg/dL (74-106) 01/27/20 06:30 Lactate 1.3 mmol/L (0.6-1.4) 01/22/20 20:23 Calcium 8.9 mg/dL (8.5-10.1) 01/27/20 06:30 Magnesium 2.0 mg/dL (1.8-2.4) 01/25/20 06:30 C-Reactive Protein 6.61 mg/dL (0.0-0.3) H 01/26/20 05:00 25-OH Vitamin D Total 21.8 ng/ml (30-100) L 01/24/20 07:00 Vit D 1,25-Dihydroxy Cancelled 01/24/20 05:35 Urine Color Yellow (Yellow) 01/22/20 20:25 Urine Clarity Clear (Clear) 01/22/20 20: Urine pH 6.0 (5-8) 01/22/20 20:25 Ur Specific [place] 1.020 (1.005-1.025) 01/22/20 20:25 Urine Protein Negative mg/dL (Negative) 01/22/20 20:25 Urine Ketones Negative mg/dL (Negative) 01/22/20 20:25 Urine Blood Negative (Negative) 01/22/20 20:25 Urine Nitrite Negative (Negative) 01/22/20 20:25 Urine Bilirubin Negative (Negative) 01/22/20 20:25 Urine Urobilinogen 0.2 EU/dL (Up TO 0.2) 01/22/20 20:25 Ur Leukocyte Esterase Negative (Negative) 01/22/20 20:25 Urine Glucose Negative mg/dL (Negative) 01/22/20 20:25 Vancomycin Trough 17.2 ug/mL (10.0-20.0) 01/28/20 06:45 HIV 1&2 Ag/Ab, 4th Gen Negative (Negative) 01/24/20 07:00 HIV 1&2 Antibody Rapid Cancelled 01/24/20 05:35
--- NOTE | 2020-01-28 11:28 | CMPROGNOTE_ITS ---
Care Management Progress Note S/O: Elias continues to be closely monitored. Awaiting IV ABX needs and treatment plan for SWB1 planning. Anticipate he will transition to SWB1 as soon as tomorrow. CM continues to follow. A: 64 year old male admitted to acute status from [facility] swing bed 1, 01/22/20 for bacteremia, pneumonia P: Elias remains in acute status at this time. He will re-enter SWB1 status to complete IV ABX course when medically stable. CM will continue to follow, coordinate changes in status (return to SWB1) and discharge planning.
[2020-01-28 15:45] VITALS: BP 112/71; PULSE 87; RESP 18; TEMP 36.4; O2SAT 97
[2020-01-28 19:13] VITALS: BP 103/67; PULSE 86; RESP 19; TEMP 36.7; O2SAT 95
[2020-01-28] MEDS: Simvastatin 20 MG TAB PO (21:25)
[2020-01-28] MEDS: Famotidine 20 MG TAB PO (21:25)
[2020-01-28] MEDS: Insulin Glargine 300 UNITS/3 ML PEN 13 UNITS SC (21:28)
[2020-01-29] MEDS: Acetaminophen 325 MG TAB PO ×4 (01:40→19:24)
[2020-01-29] MEDS: Normal Saline Flush 10 ML SYR IVP ×2 (03:06→23:48)
[2020-01-29] MEDS: VANCOMYCIN 1,000 MG in Normal Saline 250 ML 167 MG IV ×3 (03:06→23:48)
[2020-01-29 06:40] LABS: Abs Immature Grans 0.19 k/cumm (0.0-0.09); Absolute Basophil Count 0.01 k/cumm (0.0-0.2); Absolute Lymphocyte Count 1.89 k/cumm (1.2-3.4); Absolute Monocyte Count 0.95 k/cumm (0.11-0.7); Absolute Neutrophil Count 3.39 k/cumm (1.2-6.7); Basophils % 0.1; Eosinophils % 4.5; HCT 30.8 % (40.0-50.0); HGB 9.8 g/dL (13.5-17.5); Immature Grans % 2.8 %; Lymphocytes % 28.1; Mean Corp. HGB Concentration 31.8 g/dL (32.0-36.0); Mean Corpuscular Hemoglobin 28.2 pg (27.0-33.0); Mean Corpuscular Volume 88.8 fL (80-95); Mean Platelet Volume 9.4 fL (8.0-11.0); Monocytes % 14.1; Neutrophils % 50.4; Platelet Count 334 x1000/uL (130-400); RBC 3.47 m/cumm (4.50-6.00); RBC Distribution Width 15.9 % (11.8-14.1); White Blood Cell Count 6.73 k/cumm (4.4-10.8)
[2020-01-29 06:53] LABS: BUN 19 mg/dL (7-18); C-Reactive Protein 1.32 mg/dL (0.0-0.3); CREATININE 0.92 mg/dL (0.70-1.30); Calcium 8.7 mg/dL (8.5-10.1); Chloride 106 mmol/L (98-107); Glucose 92 mg/dL (74-106); Potassium 4.1 mmol/L (3.5-5.1); Sodium 141 mmol/L (136-145)
[2020-01-29 07:35] VITALS: BP 151/76; PULSE 73; RESP 18; TEMP 36.9; O2SAT 92
[2020-01-29] MEDS: buPROPion-XL 150 MG TABCR 300 MG PO (08:27)
[2020-01-29] MEDS: Polyethylene Glycol 3350 17 GM PACKET PO ×2 (08:27→19:23)
[2020-01-29] MEDS: Magnesium Chloride 64 MG TABCR PO ×2 (08:28→19:24)
[2020-01-29] MEDS: Cholecalciferol (Vitamin D3) 400 UNIT TAB PO (08:28)
[2020-01-29] MEDS: guaiFENesin 600 MG TABCR PO ×2 (08:29→19:24)
[2020-01-29] MEDS: Folic Acid 1 MG TAB PO (08:29)
[2020-01-29] MEDS: Apixaban 5 MG TAB PO ×2 (08:30→19:25)
[2020-01-29] MEDS: Cyanocobalamin 500 MCG TAB 1000 MCG PO (08:30)
[2020-01-29] MEDS: Docusate Sodium 100 MG CAP PO ×2 (08:30→19:25)
[2020-01-29] MEDS: Pantoprazole 40 MG TABCR PO ×2 (08:30→19:24)
[2020-01-29] MEDS: Multivitamin TAB 1 TAB PO (08:30)
[2020-01-29] MEDS: Ascorbic Acid 500 MG TAB PO (08:30)
[2020-01-29] MEDS: Insulin Aspart 300 UNITS/3 ML PEN SC ×3 (08:59→17:21)
[2020-01-29] MEDS: Ferrous Gluconate 324 MG TAB PO (10:32)
--- NOTE | 2020-01-29 11:08 | W.NUTRFU ---
Date of service: 01/29/20 Time of Service: 11:09 Nutritional Follow up NOTE: Koko continues on Diabetic Diet with excellent intake, well controlled blood sugars and stable weight since admit. Not at risk for nutritional decline at this time. Time Spent in Nutritional Counseling and Treatment: 0 time spent face to face
--- NOTE | 2020-01-29 14:49 | W.PM.PROGNOT ---
Date of Service Date of service: 01/29/20 Time of Service: 14:49 Assessment and Plan Assessment and plan (1) MSSA bacteremia: Status: Acute Assessment and plan: continue vancomycin till February 06 to complete course 6 weeks course. repeat echo showed no vegetations. (2) Pneumonia: Status: Acute Assessment and plan: This appears to be a different strand of pneumonia on top of MSSA. completed vanco and cefepime day 04/05. One set of blood cx growing gram staph sp. not aureus in the anaerobic bottle, the other negative to date. CRP and white count improving. no fevers. Continue pulmonary tolieting and current regimen, . Not requiring oxygen, 97% on RA, when ambulating 90-96% much improvement from saturday. Qualifiers: Laterality: right Lung location: lower lobe of lung Pneumonia type: due to unspecified organism Qualified Code(s): J18.9 - Pneumonia, unspecified organism (3) Non-insulin dependent type 2 diabetes mellitus: Status: Chronic Assessment and plan: blood sugars are well controlled. Monitor bgl. SSI sensitive. Continue lantus 13 unit (4) DVT prophylaxis: Status: Acute Assessment and plan: continue apixaban which he is on for history of PE (5) Discharge planning issues: Status: Acute Assessment and plan: likely back to swing level care tomorrow if remains stable off antibiotics. case and plan of care discussed with Dr Matos who is in agreement. Subjective Subjective Patient reports: no new complaints and feels better Exam Const General: cooperative, healthy appearing, comfortable, no acute distress and well developed Nutritional Appearance: average body habitus Orientation: alert, awake and oriented x3 [facility] Head: normal to inspection, normocephalic and atraumatic Mouth: oral mucosae normal Resp Effort & Inspection: normal respiratory effort Auscultation: clear to auscultation bilaterally Cardio Rate: regular rate Rhythm: regular rhythm GI Inspection: normal to inspection Palpation: soft Auscultation: normal bowel sounds Skin General skin exam: no rashes or lesions noted Rashes: no rashes Neuro General: patient alert, patient awake and patient oriented x3 Cranial Nerves: CN's II-XI intact bilaterally Speech: speech normal Extrem General: normal to inspection and full ROM Objective Objective Clinical Data: Abnormal lab results 01/29/20 01/29/20 Range/Units 06:00 06:00 RBC 3.47 L (4.50-6.00) m/cumm Hgb 9.8 L (13.5-17.5) g/dL Hct 30.8 L (40.0-50.0) % MCHC 31.8 L (32.0-36.0) g/dL RDW 15.9 H (11.8-14.1) % Absolute Monocytes 0.95 H (0.11-0.7) k/cumm BUN 19 H (7-18) mg/dL C-Reactive Protein 1.32 H (0.0-0.3) mg/dL Vital Signs Temperature 36.9 C 01/29/20 07:35 Temperature Source Tympanic 01/29/20 07:35 Pulse 73 01/29/20 07:35 Pulse Rhythm Regular 01/29/20 07:50 Respiratory Rate 18 01/29/20 07:35 Respiratory Effort 01/29/20 07:50 Respiratory Depth Normal 01/29/20 07:50 Respiratory Pattern Normal 01/29/20 07:50 Blood Pressure 151/76 H 01/29/20 07:35 Pulse Oximetry 92 L 01/29/20 07:35 Oxygen Delivery Method Room Air 01/29/20 07:35 Oxygen Flow Rate 0 01/29/20 07:35 Pain Level 1 01/29/20 14:35 Intake & Output 01/28/20 01/29/20 01/29/20 23:59 11:59 23:59 Intake Total 600 / 1110 250 / 490 240 / 490 Output Total 400 / 400 Balance 600 / 1110 -150 / 90 240 / 90 Intake: IV 360 / 630 250 / 250 Oral 240 / 480 240 / 240 Output: Urine 400 / 400 Other: Urine Color Yellow Yellow Urine Appearance Clear Clear Urine Odor None Comment pt denies having any urinary issues Voiding Methods Toilet Urinal Urinal Laboratory Results WBC 6.73 k/cumm (4.4-10.8) 01/29/20 06:00 RBC 3.47 m/cumm (4.50-6.00) L 01/29/20 06:00 Hgb 9.8 g/dL (13.5-17.5) L 01/29/20 06:00 Hct 30.8 % (40.0-50.0) L 01/29/20 06:00 MCV 88.8 fL (80-95) 01/29/20 06:00 MCH 28.2 pg (27.0-33.0) 01/29/20 06:00 MCHC 31.8 g/dL (32.0-36.0) L 01/29/20 06:00 RDW 15.9 % (11.8-14.1) H 01/29/20 06:00 Plt Count 334 x1000/uL (130-400) 01/29/20 06:00 MPV 9.4 fL (8.0-11.0) 01/29/20 06:00 Immature Gran % 2.8 % 01/29/20 06:00 Neutrophils % 50.4 01/29/20 06:00 Lymphocytes % 28.1 01/29/20 06:00 Monocytes % 14.1 01/29/20 06:00 Eosinophils % 4.5 01/29/20 06:00 Basophils % 0.1 01/29/20 06:00 Absolute Neutrophils 3.39 k/cumm (1.2-6.7) 01/29/20 06:00 Absolute Lymphocytes 1.89 k/cumm (1.2-3.4) 01/29/20 06:00 Absolute Monocytes 0.95 k/cumm (0.11-0.7) H 01/29/20 06:00 Absolute Eosinophils 0.30 k/cumm (0.0-0.7) 01/29/20 06:00 Absolute Basophils 0.01 k/cumm (0.0-0.2) 01/29/20 06:00 Differential Comment Manual differential 01/24/20 07:00 RBC Morphology See below 01/24/20 07:00 Polychromasia Present 01/24/20 07:00 Hypochromasia 1+ 01/24/20 07:00 Poikilocytosis 1+ 01/23/20 06:00 Anisocytosis 1+ 01/24/20 07:00 ESR 100 mm/hr (1-20) H 01/25/20 06:30 Sodium 141 mmol/L (136-145) 01/29/20 06:00 Potassium 4.1 mmol/L (3.5-5.1) 01/29/20 06:00 Chloride 106 mmol/L (98-107) 01/29/20 06:00 Carbon Dioxide 27.0 mmol/L (21.0-32.0) 01/29/20 06:00 Anion Gap 8.0 mmol/L (3-11) 01/29/20 06:00 BUN 19 mg/dL (7-18) H 01/29/20 06:00 Creatinine 0.92 mg/dL (0.70-1.30) 01/29/20 06:00 Estimated GFR/1.73 m2 >= 60.00 (mL/min/1.73m2) 01/29/20 06:00 Glucose 92 mg/dL (74-106) 01/29/20 06:00 Lactate 1.3 mmol/L (0.6-1.4) 01/22/20 20:23 Calcium 8.7 mg/dL (8.5-10.1) 01/29/20 06:00 Magnesium 2.0 mg/dL (1.8-2.4) 01/25/20 06:30 C-Reactive Protein 1.32 mg/dL (0.0-0.3) H 01/29/20 06:00 25-OH Vitamin D Total 21.8 ng/ml (30-100) L 01/24/20 07:00 Vit D 1,25-Dihydroxy Cancelled 01/24/20 05:35 Urine Color Yellow (Yellow) 01/22/20 20:25 Urine Clarity Clear (Clear) 01/22/20 20:25 Urine pH 6.0 (5-8) 01/22/20 20:25 Ur Specific [place] 1.020 (1.005-1.025) 01/22/20 20:25 Urine Protein Negative mg/dL (Negative) 01/22/20 20:25 Urine Ketones Negative mg/dL (Negative) 01/22/20 20:25 Urine Blood Negative (Negative) 01/22/20 20:25 Urine Nitrite Negative (Negative) 01/22/20 20:25 Urine Bilirubin Negative (Negative) 01/22/20 20: Urine Urobilinogen 0.2 EU/dL (Up TO 0.2) 01/22/20 20:25 Ur Leukocyte Esterase Negative (Negative) 01/22/20 20:25 Urine Glucose Negative mg/dL (Negative) 01/22/20 20:25 Vancomycin Trough 17.2 ug/mL (10.0-20.0) 01/28/20 06:45 HIV 1&2 Ag/Ab, 4th Gen Negative (Negative) 01/24/20 07:00 HIV 1&2 Antibody Rapid Cancelled 01/24/20 05:35
[2020-01-29 16:09] VITALS: BP 140/68; PULSE 92; RESP 22; TEMP 36.4; O2SAT 95
[2020-01-29] MEDS: Famotidine 20 MG TAB PO (21:43)
[2020-01-29] MEDS: Simvastatin 20 MG TAB PO (21:43)
[2020-01-29] MEDS: Insulin Glargine 300 UNITS/3 ML PEN 13 UNITS SC (21:44)
[2020-01-30 00:11] VITALS: BP 145/81; PULSE 81; RESP 16; TEMP 35.6; O2SAT 95
[2020-01-30] MEDS: Acetaminophen 325 MG TAB PO ×2 (02:09→07:49)
[2020-01-30 07:18] VITALS: BP 111/68; PULSE 87; RESP 18; TEMP 36.6; O2SAT 95
[2020-01-30] MEDS: Polyethylene Glycol 3350 17 GM PACKET PO (07:49)
[2020-01-30] MEDS: guaiFENesin 600 MG TABCR PO (07:49)
[2020-01-30] MEDS: Cholecalciferol (Vitamin D3) 400 UNIT TAB PO (07:50)
[2020-01-30] MEDS: Cyanocobalamin 500 MCG TAB 1000 MCG PO (07:50)
[2020-01-30] MEDS: Apixaban 5 MG TAB PO (07:50)
[2020-01-30] MEDS: Pantoprazole 40 MG TABCR PO (07:50)
[2020-01-30] MEDS: Docusate Sodium 100 MG CAP PO (07:50)
[2020-01-30] MEDS: buPROPion-XL 150 MG TABCR 300 MG PO (07:50)
[2020-01-30] MEDS: Folic Acid 1 MG TAB PO (07:50)
[2020-01-30] MEDS: Magnesium Chloride 64 MG TABCR PO (07:51)
[2020-01-30] MEDS: Ascorbic Acid 500 MG TAB PO (07:51)
[2020-01-30] MEDS: Multivitamin TAB 1 TAB PO (07:51)
[2020-01-30] MEDS: Insulin Aspart 300 UNITS/3 ML PEN SC ×3 (08:27→12:14)
--- NOTE | 2020-01-30 08:58 | PDOC.CMPRO ---
- If Service Date Differs Date of service: 01/30/20 Time of Service: 08:58 Care Management Progress Note S/O:Elias transitioned back to SB1 status today to complete his course of antibiotics. A: 64 year old male admitted to acute status from [facility] swing bed 1, 01/22/20 for bacteremia, pneumonia P: Elias remains in acute status at this time. He will re-enter SWB1 status to complete IV ABX course when medically stable. CM will continue to follow, coordinate changes in status (return to SWB1) and discharge planning.
[2020-01-30] MEDS: Ferrous Gluconate 324 MG TAB PO (09:24)
[2020-01-30] MEDS: VANCOMYCIN 1,000 MG in Normal Saline 250 ML 167 MG IV (09:30)
[2020-01-30 09:44] LABS: Vancomycin, Trough 22.7 ug/mL (10.0-20.0)
--- NOTE | 2020-01-30 11:16 | DSE_ITS ---
Date of service: 01/30/20 Time of Service: 11:17 DS: Diagnosis Discharge Diagnosis (1) MSSA bacteremia: Start date: 01/30/20 Start time: 11:17 Status: Acute Asessment and Plan: Positive blood cultures on 01/22/2020 with staph epidermidis resistant to oxacillin and erthromycin. Sensitive to vanco, appears to be a secondary pneumonia infection on top off MSSA. Blood cultures from 01/24/2020 negative. Will plan for swing bed to finish treatment of MSSA with vanco, requiring 6 weeks. (2) Pneumonia: Start date: 01/30/20 Start time: 11:23 Status: Acute Asessment and Plan: Improving. No requiring oxygen, CRP trending down continue to monitor labs weekly, will transition to swing bed for remainder of antbx therapy. (3) Non-insulin dependent type 2 diabetes mellitus: Start date: 01/30/20 Start time: 11:24 Status: Chronic Asessment and Plan: Continue SSI with coverage, continue lantus. Discharge Plan Disposition Patient Disposition: SNF (LEVEL 1) [facility] Condition: Improving Discharge Details Reason For Visit: BACTEREMIA, PNEUMONIA Admit Date/Time: 01/22/20 12:29 Admit Provider: Ellen Chanel Attending Provider: Ellen Chanel Primary Care Provider: Columba Carter Hospital Course Hospital Course: 64-year-old male with a history of previous PE, essential hypertension, type 2 diabetes mellitus, previous pneumonia with lung abscess, schizoaffective disorder and GERD . Who was diagnosed with bilateral pneumonia and placed on vancomycin and cefepime and admitted to the respiratory care ICU pending COVID- 19 results on 12/24/2019 . COVID-19 was negative. His blood cultures grew MSSA and he was changed to oxicillin. ID at [facility] was consulted and recommended continuing treatment with weekly labs to monitor. He has been afebrile and hemodynamically stable. He underwent an echo that showed reduced EF 45-50%, no vegetation on leaflets however without ability to do [place] he was assumed to have endocarditis with antbx for 6 weeks. His respiratory status returned to baseline, he was oxygenating well on room air, hemodynamically stable. He is eating and drinking and bowels and bladder functioning well. He was discharged to [facility] level care on 01/07/2020 to complete 6 weeks of IV antibiotics. His last positive blood culture was on December 25, he had a negative blood culture on December 28, 2019. However on 01/22/2020 patient presented with cough, SOB, requiring 4 L oxygen. He was transitioned back to acute care and further work up ensued. Conversation took place on day of readmission with ID regarding MSSA, antbx regimen and source of infection. ID at [facility] did not feel the source was lungs, MSSA does not grow on oxicillin. Other sources of infection were being r/o such as UTI, pulmonary abscess, abdominal process, findings obtained significant for worsening right sided pneumonia, no abscess, negative abdominal process, negative for UTI. Repeat blood cultures from 01/21 grew stap epi, antibx were changed upon admission to acute care from oxicillin to vanco and cefepime. This was considered a secondary pneumonia with MSSA pneumonia. Over course of treatment he was able to come off of oxygen with saturation at 98% on RA, 96% RA when ambulating. Antibiotic treatment was narrowed to vancomycin with repeat blood cultures from 01/23 no growth to date. CRP trending down from 10.00 on 01/25/2020 to 1.32 yesterday. Repeat echo without vegetations. His symptoms have improved, he is not requiring oxygen and repeat blood cultures from 01/23 negative; therefore patient will be placed on SB status until finishing entire course of antibiotics on February 07, 2020. He denies CP, SOB, N/V/D Home Meds and New Rx's Prescriptions: No Action ferrous gluconate 324 mg (38 mg iron) tablet 324 mg PO DAILY RF: 0 pioglitazone [Actos] 30 mg tablet 30 mg PO DAILY RF: 0 simvastatin 20 mg tablet 20 mg PO QHS RF: 0 Anoro Ellipta 62.5-25 mcg/actuation blister with device 1 inh IH DAILY RF: 0 bupropion HCl [Wellbutrin XL] 300 mg tablet extended release 24 hr 300 mg PO QAM RF: 0 calcium carbonate 200 mg calcium (500 mg) Tablet,Chewable 500 mg PO TID PRN PRNQty: 0 RF: 0 alum-mag hydroxide-simeth [Mag-Al Plus] 200-200-20 mg/5 mL Suspension 30 ml PO Q2H PRN PRNQty: 0 RF: 0 metformin 500 mg Tablet 1,500 mg PO DAILY Qty: 90 RF: 0 Eliquis 5 mg Tablet 5 mg PO BID Qty: 60 RF: 0 multivitamin [Multiple Vitamins] Tablet 1 tab PO DAILY Qty: 30 RF: 0 cyanocobalamin (vitamin B-12) [Vitamin B-12] 500 mcg Tablet 1,000 mcg PO DAILY Qty: 60 RF: 0 pantoprazole 40 mg Tablet,Delayed Release (Dr/Ec) 40 mg PO BID@0730,2000 Qty: 30 RF: 0 docusate sodium [Colace] 100 mg Capsule 100 mg PO DAILY Qty: 30 RF: 0 folic acid 1 mg Tablet 1 mg PO DAILY Qty: 30 RF: 0 magnesium chloride [Mag 64] 64 mg Tablet,Delayed Release (Dr/Ec) 64 mg PO BID Qty: 30 RF: 0 metformin 1,000 mg Tablet 1,000 mg PO .QHS RF: 0 ziprasidone HCl [Geodon] 80 MG capsule 160 mg PO .QHS RF: 0 ziprasidone HCl [Geodon] 80 MG capsule 80 mg PO DAILY RF: 0 clozapine [Clozaril] 100 MG tablet 200 mg PO DAILY RF: 0 clozapine [Clozaril] 100 MG tablet 375 mg PO .QHS RF: 0 acetaminophen [Mapap Extra Strength] 500 MG tablet 1,000 mg PO .Q8HRS RF: 0 Flovent HFA 120 PUFF HFA aerosol inhaler 2 puff Inhalation BID RF: 0 Discharge Instructions Additional Instructions: transition to swing bed level 1 to finish 6 weeks course antibiotics. Activity:: Activity as Tolerated Equipment/Supplies:: No Equipment Needed Diet:: As Tolerated Discharge Orders Discharge Orders: Discharge Order (Routine); Ordered 01/30/20 Ordered By: Ellen Chanel DS: Summary Status at Discharge Functional status at discharge: independent ambulation Overall status at discharge: patient is progressing back to baseline Mental Status: mental status grossly normal Speech and Movement: speech and movement normal Mood: congruent mood Affect: normal affect Exam Narrative Exam Narrative: Exam Narrative: Elderly male SOB. pink warm dry and well perfused. Neuro He is alert and oriented person place time circumstance. Lung right side diminished breath LL clear, no rhonchi, wheezing or rales. Heart regular rate and rhythm without murmur rub or gallop. Abdomen soft and nontender, nondistention. Extremities without peripheral cyanosis, or edema. psyche: normal mood and affect, appropriate Mental Status: mental status grossly normal Speech and Movement: speech and movement normal Mood: congruent mood Affect: normal affect Psych Mental Status: mental status grossly normal Speech and Movement: speech and movement normal Mood: congruent mood Affect: normal affect DS: Data Vitals/I&O Vitals and I&O: Vital Signs Temperature 36.6 C 01/30/20 07:18 Temperature Source Tympanic 01/30/20 07:18 Pulse 87 01/30/20 07:18 Pulse Rhythm Regular 01/30/20 00:05 Respiratory Rate 18 01/30/20 07:18 Respiratory Effort 01/30/20 00:05 Respiratory Depth Normal 01/30/20 00:05 Respiratory Pattern Normal 01/30/20 00:05 Blood Pressure 111/68 01/30/20 07:18 Pulse Oximetry 95 01/30/20 07:18 Oxygen Delivery Method Room Air 01/30/20 07:18 Oxygen Flow Rate 0 01/30/20 07:18 Pain Level 58 01/30/20 07:49 Intake & Output 01/29/20 01/29/20 01/30/20 11:59 23:59 11:59 Intake Total 250 / 980 730 / 980 321 / 321 Output Total 400 / 400 750 / 750 Balance -150 / 580 730 / 580 -429 / -429 Intake: IV 250 / 500 250 / 500 321 / 321 Oral 480 / 480 Output: Urine 400 / 400 750 / 750 Other: Urine Color Yellow Yellow Yellow Urine Appearance Clear Clear Clear Urine Odor None None None Comment voided in toilet unmeasured unmeasured voided in toilet unmeasured Stool Size Moderate Stool Characteristics Soft Hard Voiding Methods Toilet Toilet Urinal Data Completed and Pending Completed studies during hospitalization [Text1]: EXAM: Comprehensive 2D, Doppler, and color-flow Echocardiogram Patient Location: In-Patient Room/Bed: 214A Pouncer: Keerthi Lowry RDCS (AE) Indications: Staph Bacteremia Conclusion This is a limited echo specifically to look for valvular vegetations. Left Ventricle : The Left Ventricular Ejection Fraction is within the low???normal range Valves: There are no valvular vegetations visualized. Compared to echocardiogram dated 01/04/2020: There is no significant change. FINDINGS: ABDOMEN: Lung Bases: Right basilar infiltrates. Liver: Normal density. No measurable mass. Gallbladder and biliary tract: No radiodense calculus or dilation. Pancreas: Normal density, no abnormal calcifications or inflammatory process. Spleen: Scattered calcifications. Kidneys: Normal size, contour and axis. No radiodense stones or obstructive uropathy. Exophytic cyst right kidney. No masses seen. Adrenal glands: Stable adrenal hyperplasia. Abdominal Aorta: Abdominal portion non-dilated. Heavily calcified PELVIS: Bladder: Mild wall thickening and diverticula. Bowel: There is a large quantity of stool throughout the colon, greatest in the rectum, consistent with constipation. There the stomach contains food. No obstruction or bowel wall thickening. Peritoneal cavity: No ascites, abscess collection or mesenteric inflammatory response. Bones: Mild degenerative disc changes.. Reproductive organs: Status post prostatectomy. Lymph nodes: Unremarkable. Impression: Large quantity of stool, consistent with constipation. No evidence of an abscess.. FINDINGS: Tracheobronchial tree: Patent where visualized. Mediastinum and Ying: No dominant adenopathy or fluid collection. Pulmonary parenchyma: There are irregular infiltrates in the right upper, middle and lower lobes. The infiltrates have a somewhat peribronchial distribution. The left lung appears clear. There are mild underlying emphysematous changes. Pleura: No effusion or pneumothorax. Heart: The heart is not dilated. Mild coronary artery calcifications are seen. Aorta: Thoracic aorta non-dilated. Mild calcification. Upper abdomen: Unremarkable. Lymph nodes: Small reactive mediastinal lymph nodes. Bones: Mild degenerative changes.. Soft tissues: Right gynecomastia. IMPRESSION: Right upper, middle and lower lobe pneumonia. RADIATION DOSE DELIVERED: Total DLP DATA REPOSITORY: All CT scans at this facility are submitted to the National Radiology Data Registry (NRDR) Dose Index Registry (DIR) with the [employer] (ACR). RADIATION OPTIMIZATION: All CT scans at this facility use at least one of these dose optimization techniques: automated exposure control; mA and/or kV adjustment per patient size (includes targeted exams where dose is matched to clinical indication); or iterative reconstruction. Exam(s) a RAD:XR portable chest AP EXAM: XR PORTABLE CHEST AP CLINICAL HISTORY: SOB, requiring oxygen TECHNIQUE: 2D digital imaging was performed. COMPARISON: XR PORTABLE CHEST AP POST LINE from 01/05/2019 CT CHEST WO from 03/24/2019 CT CHEST PE CTA from 12/24/2019 FINDINGS: The heart size is normal. There is mediastinal shift toward the right which was not present on the previous exam. There are dense infiltrates seen in the upper and lower lobes. Compared with the previous CT, there is increased of the infiltrates in the right upper lobe and some clearing of the right lower lobe infiltrates. The left lung is clear. IMPRESSION: Right upper and lower lobe infiltrates. There is mediastinal shift toward the right. Labs on day of discharge: Labs from last 24 hours 01/30/20 09:20 Vancomycin Trough 22.7 H* [facility] Medical History Acute thrombosis of right basilic vein (Inactive) Complication associated with peripherally inserted central catheter (PICC) (Inactive) COPD (chronic obstructive pulmonary disease) (Chronic) Diabetes mellitus (Chronic) GERD (gastroesophageal reflux disease) (Chronic) H/O schizophrenia (Acute) H/O: CVA (cerebrovascular accident) (Acute) Hypertension (Chronic) Non-insulin dependent type 2 diabetes mellitus (Chronic) Oropharyngeal dysphagia (Acute) Pulmonary emboli (Inactive) Schizo affective schizophrenia (Chronic) Family History Mother No problems noted. Social History Smoking/Tobacco Use Status: Former Tobacco Use Tobacco: How many years used: 43 Alcohol Intake: former Drug use: Occasionally Substance use type: marijuana Do you feel safe at home: Yes Do you feel safe in your relationship?: Yes
[2020-01-30 11:47] VITALS: PULSE 87; RESP 18; O2SAT 95
== END 2020-01-30 12:14 | disposition skilled nursing facility (03) | DRG 178 ==
PROVIDERS: Internal Medicine; Nurse Practitioner Acute Care; Admitting Provider Nurse Practitioner Family; PCP Nurse Practitioner Family; Visit Provider Internal Medicine
DX: J15.211 Pneumonia due to Methicillin susceptible Staphylococcus aureus (principal); R78.81 Bacteremia; E87.2 Acidosis; B95.7 Other staphylococcus as the cause of diseases classified elsewhere; R09.02 Hypoxemia; Z86.711 Personal history of pulmonary embolism; I10 Essential (primary) hypertension; E11.9 Type 2 diabetes mellitus without complications; F25.9 Schizoaffective disorder, unspecified; K21.9 Gastro-esophageal reflux disease without esophagitis; Z79.01 Long term (current) use of anticoagulants
CPT/HCPCS: 36415; 80048; 82306; 85652; 87040; 87389; 93308; 94618; 94640; 97110; 97530; 99223; 99233; 99239; 74177; 80202; 81003; 82652; 83605; 83735; 85025; 86140; 87070; 87205; 93306; J3370; J3490

== ENCOUNTER 2020-01-30 11:51 | Inpatient (IN) | payer MEDICARE, MEDICAID, SELFPAY ==
--- NOTE | 2020-01-29 16:34 | CM.SBPSYCH ---
- If Service Date Differs Date of service: 01/29/20 Time of Service: 16:35 SB Psychosocial/Act.Assessment - Hospital Admission Admission Date: 12/24/19 - Social Supports PREVIOUS FUNCTIONAL STATUS/SOCIAL/FAMILY SUPPORTS:: Koko resides at [facility]. His mental health services are managed by [facility] and the [facility] program. He states he is independent with some ADL?s and does not use ambulatory aids. He is dependent on [place] for medication management, transportation, and meals. Elias had been in an [facility] swing bed, until his worsening respiratory status and concern for infection resulted in transition to acute status. - Medical History PAST MEDICAL HISTORY/PAST SURGICAL HISTORY:: Acute thrombosis of right basilic vein, complication associated with perpherally inserted central catheter (PICC), COPD, DM2, GERD, schizophrenia, CVA, hypertension, oropharyngeal dysphagia, PE, schizo affective schizophrenia.
--- NOTE | 2020-01-30 11:50 | W.PM.HP.N ---
Date of service: 01/30/20 Time of Service: 11:50 Assessment and Plan Assessment and plan (1) MSSA bacteremia: Start date: 01/30/20 Start time: 11:57 Status: Acute Assessment and plan: Found to have MSSA, positive blood cultures when admitted on 11/2019. Also found to have secondary infection of stap epi sensitive to vanco, initially on 3 weeks oxicillin until symptomatic, transitioned to vanco. Repeat blood cultures on 01/23 negative will finish 6 week antibx course with vancomycin on 02/07/2020. Symptoms improving. Transition to swing bed for remainder of course. (2) Pneumonia: Start date: 01/30/20 Start time: 12:00 Status: Acute Assessment and plan: Secondary infection with worsening imaging on 01/21. Stap epi bacteremia, see above. Qualifiers: Pneumonia type: due to unspecified organism Laterality: right Lung location: lower lobe of lung Qualified Code(s): J18.9 - Pneumonia, unspecified organism (3) Non-insulin dependent type 2 diabetes mellitus: Start date: 01/30/20 Start time: 11:59 Status: Chronic Assessment and plan: Continue SSI and lantus. Fingersticks, AC and HS. Low carb diet. History of Present Illness History of Present Illness Chief Complaint: Bacteremia, MSSA, Pneumonia Narrative: 64-year-old male with a history of previous PE, essential hypertension, type 2 diabetes mellitus, previous pneumonia with lung abscess, schizoaffective disorder and GERD . Who was diagnosed with bilateral pneumonia and placed on vancomycin and cefepime and admitted to the respiratory care ICU pending COVID-19 results on 12/24/2019 . COVID-19 was negative. His blood cultures grew MSSA and he was changed to oxicillin. ID at [facility] was consulted and recommended continuing treatment with weekly labs to monitor. He has been afebrile and hemodynamically stable. He underwent an echo that showed reduced EF 45-50%, no vegetation on leaflets however without ability to do [place] he was assumed to have endocarditis with antbx for 6 weeks. His respiratory status returned to baseline, he was oxygenating well on room air, hemodynamically stable. He is eating and drinking and bowels and bladder functioning well. He was discharged to swing level care on 01/07/2020 to complete 6 weeks of IV antibiotics. His last positive blood culture was on March 28, he had a negative blood culture on December 28, 2019. However on 01/22/2020 patient presented with cough, SOB, requiring 4 L oxygen. He was transitioned back to acute care and further work up ensued. Conversation took place on day of readmission with ID regarding MSSA, antbx regimen and source of infection. ID at [facility] did not feel the source was lungs, MSSA does not grow on oxicillin. Other sources of infection were being r/o such as UTI, pulmonary abscess, abdominal process, findings obtained significant for worsening right sided pneumonia, no abscess, negative abdominal process, negative for UTI. Repeat blood cultures from 01/21 grew stap epi, antibx were changed upon admission to acute care from oxicillin to vanco and cefepime. This was considered a secondary pneumonia with MSSA pneumonia. Over course of treatment he was able to come off of oxygen with saturation at 98% on RA, 96% RA when ambulating. Antibiotic treatment was narrowed to vancomycin with repeat blood cultures from 01/23 no growth to date. CRP trending down from 10.00 on 01/25/2020 to 1.32 yesterday. Repeat echo without vegetations. His symptoms have improved, he is not requiring oxygen and repeat blood cultures from 01/23 negative; therefore patient will be placed on SB status until finishing entire course of antibiotics on February 07, 2020. He denies CP, SOB, N/V/D Review of Systems All systems reviewed & are unremarkable except as noted in HPI and below PFSH Medical History Acute thrombosis of right basilic vein (Inactive) Complication associated with peripherally inserted central catheter (PICC) (Inactive) COPD (chronic obstructive pulmonary disease) (Chronic) Diabetes mellitus (Chronic) GERD (gastroesophageal reflux disease) (Chronic) H/O schizophrenia (Acute) H/O: CVA (cerebrovascular accident) (Acute) Hypertension (Chronic) Non-insulin dependent type 2 diabetes mellitus (Chronic) Oropharyngeal dysphagia (Acute) Pulmonary emboli (Inactive) Schizo affective schizophrenia (Chronic) Family History Mother No problems noted. Social History Smoking/Tobacco Use Status: Former Tobacco Use Tobacco: How many years used: 43 Alcohol Intake: former Drug use: Occasionally Substance use type: marijuana Do you feel safe at home: Yes Do you feel safe in your relationship?: Yes Meds Home Medications and Allergies Home Medications Medication Instructions Recorded Confirmed Type Flovent HFA 2 puff INHALATION BID 06/18/17 01/30/20 History acetaminophen [Mapap Extra 1,000 mg PO .Q8HRS 06/18/17 01/30/20 History Strength] clozapine [Clozaril] 200 mg PO DAILY 06/18/17 01/30/20 History clozapine [Clozaril] 375 mg PO .QHS 06/18/17 01/30/20 History ziprasidone HCl [Geodon] 80 mg PO DAILY 06/18/17 01/30/20 History ziprasidone HCl [Geodon] 160 mg PO .QHS 06/18/17 01/30/20 History alum-mag hydroxide-simeth [Mag-Al 30 ml PO Q2H PRN PRN #0 ml 12/05/18 01/30/20 Rx Plus] calcium carbonate 500 mg PO TID PRN PRN #0 tab 12/05/18 01/30/20 Rx Eliquis 5 mg PO BID #60 tab 01/23/19 01/30/20 Rx cyanocobalamin (vitamin B-12) 1,000 mcg PO DAILY #60 tab 01/23/19 01/30/20 Rx [Vitamin B-12] docusate sodium [Colace] 100 mg PO DAILY #30 cap 01/23/19 01/30/20 Rx folic acid 1 mg PO DAILY #30 tab 01/23/19 01/30/20 Rx magnesium chloride [Mag 64] 64 mg PO BID #30 tab 01/23/19 01/30/20 Rx metformin 1,500 mg PO DAILY #90 tab 01/23/19 01/30/20 Rx multivitamin [Multiple Vitamins] 1 tab PO DAILY #30 tab 01/23/19 01/30/20 Rx pantoprazole 40 mg PO BID@0730,2000 #30 tab 01/23/19 01/30/20 Rx bupropion HCl 300 mg 24 hr tablet, 300 mg PO QAM 08/14/19 01/30/20 History extended release ferrous gluconate 324 mg (38 mg 324 mg PO DAILY 08/14/19 01/30/20 History iron) tablet pioglitazone 30 mg tablet 30 mg PO DAILY 08/14/19 01/30/20 History simvastatin 20 mg tablet 20 mg PO QHS 08/14/19 01/30/20 History umeclidinium 62.5 mcg-vilanterol 1 inh IH DAILY 08/14/19 01/30/20 History 25 mcg/actuation powdr for inhalation metformin 1,000 mg PO .QHS 12/24/19 01/30/20 History Allergies Allergy/AdvReac Type Severity Reaction Status Date / Time No Known Allergies Allergy Unverified 12/24/19 14:45 Exam Narrative Exam Narrative: Exam Narrative: Exam Narrative: Elderly male SOB. pink warm dry and well perfused. Neuro He is alert and oriented person place time circumstance. Lung right side diminished breath LL clear, no rhonchi, wheezing or rales. Heart regular rate and rhythm without murmur rub or gallop. Abdomen soft and nontender, nondistention. Extremities without peripheral cyanosis, or edema. psyche: normal mood and affect, appropriate Mental Status: mental status grossly normal Speech and Movement: speech and movement normal Mood: congruent mood Affect: normal affect Psych Mental Status: mental status grossly normal Speech and Movement: speech and movement normal Mood: congruent mood Affect: normal affect COVID-19 Screening Traveled to [place] from one of the affected countries or regions?: N
[2020-01-30 15:26] VITALS: BP 127/74; PULSE 87; RESP 17; TEMP 36.7; O2SAT 96
--- NOTE | 2020-01-30 15:52 | PDOC.CMPRO ---
- If Service Date Differs Date of service: 01/30/20 Time of Service: 15:52 Care Management Progress Note S/O: Elias was transitioned back to SB1 status today to complete his course of IV antibiotics. He remains in good spirits and has been walking in the halls and interacting with staff. P: Elias will complete his course of IV antibiotics on 02/07/20 and return to [place], where he lives. will continue to support Elias and his discharge planning needs. Staff at [facility] have reached out frequently to for updates and look forward to his return.
[2020-01-30] MEDS: VANCOMYCIN 1,000 MG in Normal Saline 250 ML 167 MG IV (15:57)
--- NOTE | 2020-01-30 16:22 | NUR.NOTE ---
Nursing Note: Pt switched to swing bed, pt status is unchanged from earlier today. Pt seen multiple times ambulating in halls. Using acapella. Provided snack by request. Pt offers no c/o's at this time. AM Crisso was held R/T trough level. OK to give 4p dose. Pt showered this AM.
[2020-01-30] MEDS: Insulin Aspart 300 UNITS/3 ML PEN SC (16:56)
[2020-01-30] MEDS: Acetaminophen 325 MG TAB PO (17:51)
[2020-01-30] MEDS: Normal Saline Flush 10 ML SYR IVP (17:52)
[2020-01-30] MEDS: Pantoprazole 40 MG TABCR PO (20:41)
[2020-01-30] MEDS: guaiFENesin 600 MG TABCR PO (20:41)
[2020-01-30] MEDS: Docusate Sodium 100 MG CAP PO (20:41)
[2020-01-30] MEDS: Magnesium Chloride 64 MG TABCR PO (20:42)
[2020-01-30] MEDS: Apixaban 5 MG TAB PO (20:42)
[2020-01-30] MEDS: Polyethylene Glycol 3350 17 GM PACKET PO (20:42)
[2020-01-30] MEDS: Simvastatin 20 MG TAB PO (22:12)
[2020-01-30] MEDS: Famotidine 20 MG TAB PO (22:12)
[2020-01-30] MEDS: Insulin Glargine 300 UNITS/3 ML PEN 13 UNITS SC (22:13)
[2020-01-30 23:28] VITALS: BP 120/77; PULSE 81; RESP 19; TEMP 36.6; O2SAT 98
[2020-01-31] MEDS: VANCOMYCIN 1,000 MG in Normal Saline 250 ML 167 MG IV ×2 (04:27→15:39)
[2020-01-31] MEDS: Normal Saline Flush 10 ML SYR IVP ×2 (04:27→08:26)
[2020-01-31] MEDS: Acetaminophen 325 MG TAB PO ×4 (06:09→23:01)
[2020-01-31 07:30] VITALS: BP 102/67; PULSE 84; RESP 20; TEMP 35; O2SAT 93
--- NOTE | 2020-01-31 07:59 | PHA.REVIEW ---
Pharmacy Admission Review - Admission Clinical Review (Last Reviewed 01/30/20 @ 11:51 by Ellen Chanel NP) MSSA bacteremia (Acute) Pneumonia (Acute) No Known Allergies Allergy (Unverified 12/24/19 14:45) - Comments Comments/Follow Ups: Patient is back to SWING BED. for IV Vancomycin through February 06 - Anticoagulation Medications: Apixaban - DM Control Insulin Dosing: Reviewed (On ASPART & GLARGINE) - BP Control BP Control: Blood Pressure 120/77
[2020-01-31] MEDS: Polyethylene Glycol 3350 17 GM PACKET PO ×2 (08:26→19:58)
[2020-01-31] MEDS: Cholecalciferol (Vitamin D3) 400 UNIT TAB PO (08:27)
[2020-01-31] MEDS: Cyanocobalamin 500 MCG TAB 1000 MCG PO (08:27)
[2020-01-31] MEDS: Multivitamin TAB 1 TAB PO (08:27)
[2020-01-31] MEDS: buPROPion-XL 150 MG TABCR 300 MG PO (08:27)
[2020-01-31] MEDS: Magnesium Chloride 64 MG TABCR PO ×2 (08:27→19:58)
[2020-01-31] MEDS: Docusate Sodium 100 MG CAP PO ×2 (08:28→19:58)
[2020-01-31] MEDS: Ascorbic Acid 500 MG TAB PO (08:28)
[2020-01-31] MEDS: Pantoprazole 40 MG TABCR PO ×2 (08:28→19:58)
[2020-01-31] MEDS: guaiFENesin 600 MG TABCR PO ×2 (08:28→19:58)
[2020-01-31] MEDS: Folic Acid 1 MG TAB PO (08:28)
[2020-01-31] MEDS: Apixaban 5 MG TAB PO ×2 (08:28→19:58)
[2020-01-31] MEDS: Insulin Aspart 300 UNITS/3 ML PEN SC ×5 (08:29→16:53)
--- NOTE | 2020-01-31 10:07 | CMSA_ITS ---
- If Service Date Differs Date of service: 01/31/20 Time of Service: 10:07 SB Psychosocial/Act.Assessment - Hospital Admission Admission Date: 01/07/20 Admission From:: Swingbed 1 Diagnosis:: Pneumonia - Swing Bed Admission Swing Bed Admit Date:: 01/30/20 Swing Bed Level of Care: Level 1/SNF - Social Supports PREVIOUS FUNCTIONAL STATUS/SOCIAL/FAMILY SUPPORTS:: Koko resides at [facility] assisted living. His mental health services are managed by [facility] and the SIGN LANGUAGE TEACHER program. He states he is independent with some ADL?s and does not use ambulatory aids. He is dependent on [facility] for medication management, transportation, and meals. Elias had been in an [facility] swing bed, until his worsening respiratory status and concern for infection resulted in transition to acute status. 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 He grows cucumbers, peppers, potatoes, cabbage and beans and shares with the people at [facility] Sports:: Elias loves all sports and enjoys watching them on TV Music:: Sixties rock and roll TV/Movies:: enjoys watching TV Outdoor Activities:: gardening and walking Gardening:: vegetable gardening - Present Functional Status Physical Abilities:: independent with ambulation and ADLs Cognitive:: delayed Communication:: appropriate Sensory Systems: WNL Behavior:: appropriate - Medical History PAST MEDICAL HISTORY/PAST SURGICAL HISTORY:: Acute thrombosis of right basilic vein, complication associated with perpherally inserted central catheter (PICC), COPD, DM2, GERD, schizophrenia, CVA, hypertension, oropharyngeal dysphagia, PE, schizo affective schizophrenia. 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 He is currently here for IV antibiotics. His most recent SB-1 stay was interrupted with an acute admission for MSSA bacteremia secondary to pneumonia. Elias is feeling much better and will complete his course of IV antibiotics on 02/07/20, when he will return to [facility]. Site Auditor: Sophia Villeda Date Assessment was completed:: 01/31/20
[2020-01-31] MEDS: Ferrous Gluconate 324 MG TAB PO (10:11)
[2020-01-31] MEDS: traMADol 50 MG TAB PO (14:53)
[2020-01-31 15:26] VITALS: BP 99/60; PULSE 90; RESP 19; TEMP 36.4; O2SAT 95
[2020-01-31] MEDS: Insulin Glargine 300 UNITS/3 ML PEN 13 UNITS SC (21:48)
[2020-01-31] MEDS: Simvastatin 20 MG TAB PO (21:48)
[2020-01-31] MEDS: Famotidine 20 MG TAB PO (21:48)
[2020-01-31 23:15] VITALS: BP 110/48; PULSE 81; RESP 18; TEMP 36.6; O2SAT 95
[2020-02-01] MEDS: VANCOMYCIN 1,000 MG in Normal Saline 250 ML 167 MG IV ×2 (04:06→18:03)
[2020-02-01] MEDS: Acetaminophen 325 MG TAB PO ×4 (06:07→23:12)
[2020-02-01 07:24] VITALS: BP 130/76; PULSE 77; RESP 18; TEMP 36.4; O2SAT 95
[2020-02-01] MEDS: Insulin Aspart 300 UNITS/3 ML PEN SC ×3 (08:17→16:56)
[2020-02-01] MEDS: Polyethylene Glycol 3350 17 GM PACKET PO ×2 (08:18→20:38)
[2020-02-01] MEDS: Cyanocobalamin 500 MCG TAB 1000 MCG PO (08:19)
[2020-02-01] MEDS: Apixaban 5 MG TAB PO ×2 (08:19→20:39)
[2020-02-01] MEDS: Multivitamin TAB 1 TAB PO (08:20)
[2020-02-01] MEDS: Pantoprazole 40 MG TABCR PO ×2 (08:20→20:39)
[2020-02-01] MEDS: Ascorbic Acid 500 MG TAB PO (08:20)
[2020-02-01] MEDS: Docusate Sodium 100 MG CAP PO ×2 (08:20→20:39)
[2020-02-01] MEDS: Cholecalciferol (Vitamin D3) 400 UNIT TAB PO (08:20)
[2020-02-01] MEDS: guaiFENesin 600 MG TABCR PO ×2 (08:20→20:39)
[2020-02-01] MEDS: Folic Acid 1 MG TAB PO (08:20)
[2020-02-01] MEDS: Magnesium Chloride 64 MG TABCR PO ×2 (08:20→20:39)
[2020-02-01 08:24] VITALS: O2SAT 93
[2020-02-01] MEDS: buPROPion-XL 150 MG TABCR 300 MG PO (08:56)
[2020-02-01] MEDS: traMADol 50 MG TAB PO (10:05)
[2020-02-01] MEDS: Ferrous Gluconate 324 MG TAB PO (10:17)
--- NOTE | 2020-02-01 12:50 | PDOC.CMPRO ---
Care Management Progress Note S/O: Elias had a shower this morning and was ambulating independently without oxygen. CM left message at [facility] with Yadira Lambert regarding discharge plan, anticipated for 02/07/20 at this time. CM continues to follow. 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 P: Elias continues to be closely monitored, he re-entered [facility] status 01/30/20.. He will return to [facility] after IV ABX therapy is completed, anticipated discharge date of 02/07/20 (dependent on timing of ABX). CM continues to follow.
[2020-02-01 15:40] VITALS: BP 116/71; PULSE 89; RESP 18; TEMP 36; O2SAT 96
[2020-02-01 16:33] LABS: CREATININE 1.42 mg/dL (0.70-1.30); Estimated GFR 49.88 (mL/min/1.73m2)
[2020-02-01 16:40] LABS: Vancomycin, Trough 19.6 ug/mL (10.0-20.0)
[2020-02-01 19:00] VITALS: BP 130/75; PULSE 89; RESP 18; TEMP 36.6; O2SAT 93
[2020-02-01] MEDS: Normal Saline Flush 10 ML SYR 20 ML IVP (20:40)
[2020-02-01] MEDS: Famotidine 20 MG TAB PO (21:05)
[2020-02-01] MEDS: Simvastatin 20 MG TAB PO (21:05)
[2020-02-01] MEDS: Insulin Glargine 300 UNITS/3 ML PEN 13 UNITS SC (21:06)
[2020-02-02 04:26] VITALS: BP 127/77; PULSE 80; RESP 18; TEMP 36.4; O2SAT 92
[2020-02-02] MEDS: Acetaminophen 325 MG TAB PO ×3 (05:06→16:53)
[2020-02-02 08:04] VITALS: BP 118/74; PULSE 84; RESP 18; TEMP 36.6; O2SAT 91
[2020-02-02] MEDS: VANCOMYCIN 1,000 MG in Normal Saline 250 ML 167 MG IV ×2 (08:14→21:05)
[2020-02-02] MEDS: Apixaban 5 MG TAB PO ×2 (08:14→21:09)
[2020-02-02] MEDS: Multivitamin TAB 1 TAB PO (08:14)
[2020-02-02] MEDS: guaiFENesin 600 MG TABCR PO ×2 (08:14→21:08)
[2020-02-02] MEDS: Ascorbic Acid 500 MG TAB PO (08:14)
[2020-02-02] MEDS: Folic Acid 1 MG TAB PO (08:14)
[2020-02-02] MEDS: Cholecalciferol (Vitamin D3) 400 UNIT TAB PO (08:14)
[2020-02-02] MEDS: Cyanocobalamin 500 MCG TAB 1000 MCG PO (08:14)
[2020-02-02] MEDS: Normal Saline Flush 10 ML SYR 20 ML IVP ×2 (08:14→21:05)
[2020-02-02] MEDS: Docusate Sodium 100 MG CAP PO ×2 (08:14→21:10)
[2020-02-02] MEDS: Polyethylene Glycol 3350 17 GM PACKET PO ×2 (08:14→21:04)
[2020-02-02] MEDS: Magnesium Chloride 64 MG TABCR PO ×2 (08:15→21:09)
[2020-02-02] MEDS: Insulin Aspart 300 UNITS/3 ML PEN SC ×3 (08:15→16:54)
[2020-02-02] MEDS: Pantoprazole 40 MG TABCR PO ×2 (08:15→21:09)
[2020-02-02] MEDS: buPROPion-XL 150 MG TABCR 300 MG PO (08:15)
[2020-02-02] MEDS: Ferrous Gluconate 324 MG TAB PO (09:41)
[2020-02-02] MEDS: traMADol 50 MG TAB PO (12:29)
--- NOTE | 2020-02-02 13:02 | CMPROGNOTE_ITS ---
Care Management Progress Note In the abscense of any changes, anticipate Koko will discharge on 02/06/20. He will have no additional services at this time and will resume current community supports. Awaiting call back from Petra at [facility]. Anticipate he will transport via [facility]. Per pharmacy, trough scheduled for 02/04/20, Elias currently receives his IV ABX at 1200 with a ninety minute duration. Plan remains for Elias to discharge on Saturday afternoon after his last dose of IV ABX.
[2020-02-02 17:03] VITALS: BP 122/77; PULSE 87; RESP 17; TEMP 36.6; O2SAT 94
[2020-02-02] MEDS: Insulin Glargine 300 UNITS/3 ML PEN 13 UNITS SC (21:05)
[2020-02-02] MEDS: Simvastatin 20 MG TAB PO (21:10)
[2020-02-02] MEDS: Famotidine 20 MG TAB PO (21:10)
[2020-02-02 23:40] VITALS: BP 119/82; PULSE 84; RESP 19; TEMP 36.9; O2SAT 95
[2020-02-03] MEDS: Acetaminophen 325 MG TAB PO ×3 (06:44→17:42)
[2020-02-03 07:35] VITALS: BP 114/75; PULSE 77; RESP 18; TEMP 36.7; O2SAT 93
[2020-02-03] MEDS: Pantoprazole 40 MG TABCR PO ×2 (08:23→20:56)
[2020-02-03] MEDS: buPROPion-XL 150 MG TABCR 300 MG PO (08:23)
[2020-02-03] MEDS: guaiFENesin 600 MG TABCR PO ×2 (08:23→20:53)
[2020-02-03] MEDS: Cholecalciferol (Vitamin D3) 400 UNIT TAB PO (08:23)
[2020-02-03] MEDS: Ascorbic Acid 500 MG TAB PO (08:24)
[2020-02-03] MEDS: Apixaban 5 MG TAB PO ×2 (08:24→20:56)
[2020-02-03] MEDS: Folic Acid 1 MG TAB PO (08:24)
[2020-02-03] MEDS: Multivitamin TAB 1 TAB PO (08:24)
[2020-02-03] MEDS: Docusate Sodium 100 MG CAP PO ×2 (08:24→20:56)
[2020-02-03] MEDS: Cyanocobalamin 500 MCG TAB 1000 MCG PO (08:24)
[2020-02-03] MEDS: Magnesium Chloride 64 MG TABCR PO ×2 (08:24→20:56)
[2020-02-03] MEDS: Insulin Aspart 300 UNITS/3 ML PEN SC ×3 (08:25→17:07)
[2020-02-03] MEDS: Polyethylene Glycol 3350 17 GM PACKET PO ×2 (08:26→20:52)
[2020-02-03] MEDS: Normal Saline Flush 10 ML SYR 20 ML IVP ×2 (08:30→20:57)
[2020-02-03] MEDS: Ferrous Gluconate 324 MG TAB PO (09:51)
[2020-02-03] MEDS: VANCOMYCIN 1,000 MG in Normal Saline 250 ML 167 MG IV (11:27)
--- NOTE | 2020-02-03 14:53 | CMPROGNOTE_ITS ---
Care Management Progress Note Elias will discharge on 02/08/20@1100. Petra from [facility] will transport via private vehicle. No additional services anticipated at this time.
--- NOTE | 2020-02-03 14:53 | PDOC.CMPRO ---
Care Management Progress Note Elias will discharge on 02/08/20@1100. Petra from [facility] will transport via private vehicle. No additional services anticipated at this time.
[2020-02-03 15:25] VITALS: BP 117/70; PULSE 87; RESP 18; TEMP 36.2; O2SAT 94
--- NOTE | 2020-02-03 15:30 | PDOC.CMACT ---
Care Management Activity Note Elias was again walking through the hallways and visiting with staff, a welcome sight as he transitioned to acute status due to respiratory issues. He remains pleasant in interaction, loves tapioca pudding and is looking forward to returning to [place] next Saturday.
[2020-02-03 19:35] VITALS: BP 118/67; PULSE 85; RESP 17; TEMP 36.7; O2SAT 96
[2020-02-03] MEDS: Simvastatin 20 MG TAB PO (20:56)
[2020-02-03] MEDS: Famotidine 20 MG TAB PO (20:56)
[2020-02-03] MEDS: Insulin Glargine 300 UNITS/3 ML PEN 13 UNITS SC (20:57)
[2020-02-04] MEDS: VANCOMYCIN 1,000 MG in Normal Saline 250 ML 167 MG IV ×2 (02:45→17:54)
[2020-02-04 03:46] VITALS: BP 120/78; PULSE 78; RESP 18; TEMP 36.6; O2SAT 95
[2020-02-04] MEDS: Acetaminophen 325 MG TAB PO ×3 (06:34→17:13)
[2020-02-04 06:59] VITALS: BP 114/73; PULSE 75; RESP 17; TEMP 36.4; O2SAT 94
[2020-02-04] MEDS: Insulin Aspart 300 UNITS/3 ML PEN SC ×3 (08:44→17:13)
[2020-02-04] MEDS: Multivitamin TAB 1 TAB PO (08:45)
[2020-02-04] MEDS: Ascorbic Acid 500 MG TAB PO (08:45)
[2020-02-04] MEDS: Magnesium Chloride 64 MG TABCR PO ×2 (08:45→19:18)
[2020-02-04] MEDS: guaiFENesin 600 MG TABCR PO ×2 (08:45→19:18)
[2020-02-04] MEDS: Cholecalciferol (Vitamin D3) 400 UNIT TAB PO (08:45)
[2020-02-04] MEDS: Polyethylene Glycol 3350 17 GM PACKET PO ×2 (08:46→19:19)
[2020-02-04] MEDS: Cyanocobalamin 500 MCG TAB 1000 MCG PO (08:46)
[2020-02-04] MEDS: buPROPion-XL 150 MG TABCR 300 MG PO (08:46)
[2020-02-04] MEDS: Docusate Sodium 100 MG CAP PO ×2 (08:46→19:19)
[2020-02-04] MEDS: Pantoprazole 40 MG TABCR PO ×2 (08:46→19:19)
[2020-02-04] MEDS: Folic Acid 1 MG TAB PO (08:46)
[2020-02-04] MEDS: Apixaban 5 MG TAB PO ×2 (08:46→19:19)
[2020-02-04] MEDS: Normal Saline Flush 10 ML SYR 20 ML IVP ×2 (08:47→19:20)
[2020-02-04] MEDS: Ferrous Gluconate 324 MG TAB PO (11:28)
[2020-02-04 15:25] VITALS: BP 101/58; PULSE 88; RESP 17; TEMP 36.4; O2SAT 95
[2020-02-04 17:26] LABS: Vancomycin, Trough 15.6 ug/mL (10.0-20.0)
[2020-02-04] MEDS: Normal Saline Flush 10 ML SYR IVP (17:55)
[2020-02-04 19:09] LABS: CREATININE 1.39 mg/dL (0.70-1.30); Estimated GFR 51.12 (mL/min/1.73m2)
[2020-02-04 20:32] VITALS: BP 125/70; PULSE 69; RESP 18; TEMP 36.7; O2SAT 95
[2020-02-04] MEDS: Famotidine 20 MG TAB PO (22:30)
[2020-02-04] MEDS: Insulin Glargine 300 UNITS/3 ML PEN 13 UNITS SC (22:30)
[2020-02-04] MEDS: Simvastatin 20 MG TAB PO (22:30)
[2020-02-05] MEDS: Acetaminophen 325 MG TAB PO ×3 (06:22→17:13)
[2020-02-05 06:26] VITALS: BP 99/62; PULSE 69; RESP 19; TEMP 36.9; O2SAT 95
[2020-02-05] MEDS: Docusate Sodium 100 MG CAP PO ×2 (08:13→21:06)
[2020-02-05] MEDS: Apixaban 5 MG TAB PO ×2 (08:13→21:06)
[2020-02-05] MEDS: guaiFENesin 600 MG TABCR PO ×2 (08:14→21:07)
[2020-02-05] MEDS: Cholecalciferol (Vitamin D3) 400 UNIT TAB PO (08:14)
[2020-02-05] MEDS: Multivitamin TAB 1 TAB PO (08:14)
[2020-02-05] MEDS: Cyanocobalamin 500 MCG TAB 1000 MCG PO (08:14)
[2020-02-05] MEDS: Magnesium Chloride 64 MG TABCR PO ×2 (08:14→21:07)
[2020-02-05] MEDS: Folic Acid 1 MG TAB PO (08:14)
[2020-02-05] MEDS: Pantoprazole 40 MG TABCR PO ×2 (08:14→21:07)
[2020-02-05] MEDS: Ascorbic Acid 500 MG TAB PO (08:14)
[2020-02-05] MEDS: buPROPion-XL 150 MG TABCR 300 MG PO (08:14)
[2020-02-05] MEDS: Polyethylene Glycol 3350 17 GM PACKET PO ×2 (08:15→21:09)
[2020-02-05] MEDS: Normal Saline Flush 10 ML SYR 20 ML IVP ×2 (08:16→21:08)
[2020-02-05] MEDS: Insulin Aspart 300 UNITS/3 ML PEN SC ×3 (08:17→17:12)
[2020-02-05] MEDS: VANCOMYCIN 1,000 MG in Normal Saline 250 ML 167 MG IV ×2 (08:25→21:24)
[2020-02-05 09:38] VITALS: BP 96/63; PULSE 87; RESP 17; TEMP 36.4; O2SAT 94
[2020-02-05] MEDS: Ferrous Gluconate 324 MG TAB PO (09:54)
--- NOTE | 2020-02-05 13:06 | W.NUTRFU ---
Date of service: 02/05/20 Time of Service: 13:06 Nutritional Follow up NOTE: Clement continues on Diabetic diet with adequate intake and blood sugar control. Not at risk for nutritional decline. will be available prn. Time Spent in Nutritional Counseling and Treatment: 0
--- NOTE | 2020-02-05 14:47 | PGE_ITS ---
Date of Service Date of service: 02/05/20 Time of Service: 14:47 Assessment and Plan Assessment and plan (1) MSSA bacteremia: Start date: 02/05/20 Start time: 14:51 Status: Acute Assessment and plan: Doing well, improving Found to have MSSA, positive blood cultures when admitted on 11/2019. Also found to have secondary infection of stap epi sensitive to vanco, initially on 3 weeks oxicillin until symptomatic, transitioned to vanco. Repeat blood cultures on 01/23 negative will finish 6 week antibx course with vancomycin on 02/07/2020. Will be discharged home Saturday. [facility] is accepting Saturday morning. (2) Pneumonia: Start date: 02/05/20 Start time: 14:56 Status: Acute Assessment and plan: Secondary infection with worsening imaging on 01/21. Stap epi bacteremia, see above. Qualifiers: Pneumonia type: due to unspecified organism Laterality: right Lung location: lower lobe of lung Qualified Code(s): J18.9 - Pneumonia, unspecified organism (3) Non-insulin dependent type 2 diabetes mellitus: Start date: 02/05/20 Start time: 14:56 Status: Chronic Assessment and plan: Continue SSI and lantus. Fingersticks, AC and HS. Low carb diet. Subjective Subjective Patient reports: feels better Interval history since last seen: Doing well. Discharge day for Saturday. Will repeat CXR for am follow up for improvement. Weekly labs. Exam Narrative Exam Narrative: Exam Narrative: Exam Narrative: Elderly male SOB. pink warm dry and well perfused. Neuro He is alert and oriented person place time circumstance. Lung: diminished bilaterally, no wheezing, rales or rhonchi Heart regular rate and rhythm without murmur rub or gallop. Abdomen soft and nontender, nondistention. Extremities without peripheral cyanosis, or edema. psyche: normal mood and affect, appropriate Mental Status: mental status grossly normal Speech and Movement: speech and movement normal Mood: congruent mood Affect: normal affect Psych Mental Status: mental status grossly normal Speech and Movement: speech and movement normal Mood: congruent mood Affect: normal affect Objective Objective Clinical Data: Abnormal lab results 02/04/20 Range/Units 16:50 Creatinine 1.39 H (0.70-1.30) mg/dL Vital Signs Temperature 36.4 C L 02/05/20 09:38 Temperature Source Tympanic 02/05/20 09:38 Pulse 87 02/05/20 09:38 Pulse Rhythm Regular 02/05/20 07:48 Respiratory Rate 17 02/05/20 09:38 Respiratory Effort Non-Labored 02/05/20 07:48 Respiratory Depth Normal 02/05/20 07:48 Respiratory Pattern Normal 02/05/20 07:48 Blood Pressure 96/63 L 02/05/20 09:38 Pulse Oximetry 94 L 02/05/20 09:38 Oxygen Delivery Method Room Air 02/05/20 09:38 Oxygen Flow Rate 0 02/05/20 09:38 Pain Level 0 02/05/20 09:38 Intake & Output 02/04/20 02/05/20 02/05/20 23:59 11:59 23:59 Intake Total 1010 / 1500 950 / 1070 120 / 1070 Output Total 400 / 400 Balance 610 / 1100 950 / 1070 120 / 1070 Intake: IV 270 / 520 250 / 250 Oral 740 / 980 700 / 820 120 / 820 Output: Urine 400 / 400 Other: Urine Color Straw Urine Appearance Clear Urine Odor Normal Comment Voided into the tolet at this time. up indep in noc to void. no incontinence tonight Voiding Methods Toilet Toilet Laboratory Results Creatinine 1.39 mg/dL (0.70-1.30) H 02/04/20 16:50 Estimated GFR/1.73 m2 51.12 (mL/min/1.73m2) 02/04/20 16:50 Vancomycin Trough 15.6 ug/mL (10.0-20.0) 02/04/20 16:50
[2020-02-05 15:33] VITALS: BP 112/66; PULSE 87; RESP 18; TEMP 36.8; O2SAT 94
[2020-02-05] MEDS: Simvastatin 20 MG TAB PO (21:25)
[2020-02-05] MEDS: Famotidine 20 MG TAB PO (21:25)
[2020-02-05] MEDS: Insulin Glargine 300 UNITS/3 ML PEN 13 UNITS SC (21:32)
[2020-02-05 23:11] VITALS: BP 112/70; PULSE 84; RESP 17; TEMP 36.2; O2SAT 96
[2020-02-06] MEDS: Acetaminophen 325 MG TAB PO ×4 (00:56→18:08)
[2020-02-06 07:08] LABS: Abs Immature Grans 0.11 k/cumm (0.0-0.09); Absolute Basophil Count 0.01 k/cumm (0.0-0.2); Absolute Eosinophil Count 0.25 k/cumm (0.0-0.7); Absolute Lymphocyte Count 2.06 k/cumm (1.2-3.4); Absolute Monocyte Count 1.21 k/cumm (0.11-0.7); Absolute Neutrophil Count 6.17 k/cumm (1.2-6.7); Basophils % 0.1; Eosinophils % 2.5; HCT 33.3 % (40.0-50.0); HGB 10.7 g/dL (13.5-17.5); Immature Grans % 1.1 %; Mean Corp. HGB Concentration 32.1 g/dL (32.0-36.0); Mean Corpuscular Hemoglobin 28.6 pg (27.0-33.0); Mean Platelet Volume 9.8 fL (8.0-11.0); Monocytes % 12.3; Platelet Count 424 x1000/uL (130-400); RBC 3.74 m/cumm (4.50-6.00); RBC Distribution Width 16.3 % (11.8-14.1); White Blood Cell Count 9.81 k/cumm (4.4-10.8)
[2020-02-06 07:16] LABS: Anion Gap 5.8 mmol/L (3-11); BUN 25 mg/dL (7-18); C-Reactive Protein 0.08 mg/dL (0.0-0.3); CO2 28.2 mmol/L (21.0-32.0); CREATININE 1.17 mg/dL (0.70-1.30); Calcium 8.6 mg/dL (8.5-10.1); Chloride 105 mmol/L (98-107); Glucose 99 mg/dL (74-106); Potassium 4.5 mmol/L (3.5-5.1); Sodium 139 mmol/L (136-145)
[2020-02-06 07:35] VITALS: BP 121/76; PULSE 82; RESP 14; TEMP 36; O2SAT 92
--- NOTE | 2020-02-06 07:50 | DI.RAD_ITS ---
EXAM: XR CHEST 2V PA LATERAL CLINICAL HISTORY: Follow up imaging from pneumonia TECHNIQUE: COMPARISON: CR XR PORTABLE CHEST AP from 01/22/2020 FINDINGS: Heart is not enlarged. There is some volume loss on the right. There appear to be changes of COPD a nd pulmonary scarring. There are faint areas of consolidation persisting in the right lung, signific antly improved from prior films of January 21. No pleural effusion seen. No new consolidation seen. IMPRESSION: Findings consistent with improving right-sided pneumonia.
--- NOTE | 2020-02-06 08:06 | DI.VRAD_ITS ---
PROCEDURE INFORMATION: Exam: XR Chest, 2 Views Exam date and time: 02/06/2020 7:47 AM Age: 64 years old Clinical indication: Other: Follow up imaging for pneumonia TECHNIQUE: Imaging protocol: XR of the chest Views: 2 views. COMPARISON: CR XR PORTABLE CHEST AP 01/22/2020 8:24 AM FINDINGS: Lungs: COPD and interstitial prominence. Mild airspace disease with interval improvement in right upper lobe airspace disease. Pleural space: No pleural effusion. Heart/Mediastinum: No cardiomegaly. Bones/joints: Mild degenerative change. IMPRESSION: Mild airspace disease with interval improvement in right upper lobe airspace disease. Dictated and Authenticated by: Cleveland Marks MD. Ordering:GRAY Hughes MD
[2020-02-06] MEDS: Docusate Sodium 100 MG CAP PO ×2 (08:27→21:00)
[2020-02-06] MEDS: buPROPion-XL 150 MG TABCR 300 MG PO (08:27)
[2020-02-06] MEDS: Magnesium Chloride 64 MG TABCR PO ×2 (08:27→21:00)
[2020-02-06] MEDS: Ascorbic Acid 500 MG TAB PO (08:27)
[2020-02-06] MEDS: Cholecalciferol (Vitamin D3) 400 UNIT TAB PO (08:27)
[2020-02-06] MEDS: guaiFENesin 600 MG TABCR PO ×2 (08:28→21:00)
[2020-02-06] MEDS: Folic Acid 1 MG TAB PO (08:28)
[2020-02-06] MEDS: Polyethylene Glycol 3350 17 GM PACKET PO ×2 (08:28→20:59)
[2020-02-06] MEDS: Pantoprazole 40 MG TABCR PO ×2 (08:28→21:00)
[2020-02-06] MEDS: Multivitamin TAB 1 TAB PO (08:28)
[2020-02-06] MEDS: Apixaban 5 MG TAB PO ×2 (08:28→21:00)
[2020-02-06] MEDS: Cyanocobalamin 500 MCG TAB 1000 MCG PO (08:28)
[2020-02-06] MEDS: Insulin Aspart 300 UNITS/3 ML PEN SC ×3 (08:29→17:05)
[2020-02-06] MEDS: Normal Saline Flush 10 ML SYR 20 ML IVP ×2 (08:30→20:59)
[2020-02-06] MEDS: Ferrous Gluconate 324 MG TAB PO (10:41)
[2020-02-06 11:20] LABS: COVID-19 RT-PCR UVMMC Result Negative (Negative)
[2020-02-06] MEDS: VANCOMYCIN 1,000 MG in Normal Saline 250 ML 167 MG IV (12:07)
[2020-02-06] MEDS: Normal Saline Flush 10 ML SYR IVP (14:03)
[2020-02-06 15:05] VITALS: BP 117/74; PULSE 86; RESP 18; TEMP 36.2; O2SAT 95
[2020-02-06 18:55] VITALS: BP 124/74; PULSE 89; RESP 18; TEMP 36.5; O2SAT 96
[2020-02-06] MEDS: Famotidine 20 MG TAB PO (21:00)
[2020-02-06] MEDS: Simvastatin 20 MG TAB PO (21:00)
[2020-02-06] MEDS: Insulin Glargine 300 UNITS/3 ML PEN 13 UNITS SC (21:08)
[2020-02-07] MEDS: VANCOMYCIN 1,000 MG in Normal Saline 250 ML 167 MG IV ×2 (02:56→15:54)
[2020-02-07] MEDS: Acetaminophen 325 MG TAB PO ×3 (02:57→17:16)
[2020-02-07 07:41] VITALS: BP 104/67; PULSE 85; RESP 18; TEMP 36.8; O2SAT 95
[2020-02-07] MEDS: buPROPion-XL 150 MG TABCR 300 MG PO (07:45)
[2020-02-07] MEDS: Polyethylene Glycol 3350 17 GM PACKET PO ×2 (07:45→19:29)
[2020-02-07] MEDS: Multivitamin TAB 1 TAB PO (07:46)
[2020-02-07] MEDS: guaiFENesin 600 MG TABCR PO ×2 (07:46→19:36)
[2020-02-07] MEDS: Pantoprazole 40 MG TABCR PO ×2 (07:46→19:32)
[2020-02-07] MEDS: Cyanocobalamin 500 MCG TAB 1000 MCG PO (07:46)
[2020-02-07] MEDS: Docusate Sodium 100 MG CAP PO ×2 (07:46→19:32)
[2020-02-07] MEDS: Folic Acid 1 MG TAB PO (07:46)
[2020-02-07] MEDS: Apixaban 5 MG TAB PO ×2 (07:46→19:31)
[2020-02-07] MEDS: Magnesium Chloride 64 MG TABCR PO ×2 (07:46→19:32)
[2020-02-07] MEDS: Ascorbic Acid 500 MG TAB PO (07:46)
[2020-02-07] MEDS: Cholecalciferol (Vitamin D3) 400 UNIT TAB PO (07:46)
[2020-02-07] MEDS: Normal Saline Flush 10 ML SYR 20 ML IVP ×2 (07:48→19:33)
[2020-02-07] MEDS: Insulin Aspart 300 UNITS/3 ML PEN SC ×5 (08:58→17:15)
[2020-02-07] MEDS: Ferrous Gluconate 324 MG TAB PO (09:50)
--- NOTE | 2020-02-07 12:47 | DSE_ITS ---
DS: Diagnosis Discharge Diagnosis (1) Sepsis: Status: Resolved (2) MSSA bacteremia: Status: Acute (3) Acute respiratory failure with hypoxia: Status: Resolved (4) Pneumonia: Status: Acute (5) Non-insulin dependent type 2 diabetes mellitus: Status: Chronic (6) GERD (gastroesophageal reflux disease): Status: Chronic (7) Hypertension: Status: Chronic (8) Schizo affective schizophrenia: Status: Chronic (9) DALLAS (acute kidney injury): Status: Resolved (10) Normocytic anemia: Status: Chronic (11) Constipation, chronic: Status: Chronic Discharge Plan Disposition Patient Disposition: HOME Condition: Good Discharge Details Reason For Visit: BACTERMIA, PNEUMONIA Admit Date/Time: 01/30/20 11:51 Admit Provider: Tian Chakraborty Attending Provider: Tian Chakraborty Primary Care Provider: Columba Carter Hospital Course Hospital Course: Mr Estevez is a 64 year old male with PMHx of previous PE, on eliquis, as well as prior h/o CAP with lung abscess in November of 2018, essential hypertension, NIDDM2, schizoaffective disorder and GERD, who was initially admitted to [facility] hospitalist service on 12/24/2019 for sepsis due to multilobar pneumonia with MS SA bacteremia. His antibiotics were titrated from initial empiric vancomycin and cefepime to oxacillin once his blood culture results were available. He ruled out for COVID-19. He did have persistently positive blood cultures on 12/26/2019, but then cleared them by 12/28/2019. TTE did not demonstrate any vegetations/signs of endocarditis. SANJUANA was deferred in light of COVID-19 pandemic with recommendations by [facility] to treat the patient with oxacillin for 6 weeks since his first negative blood culture as if he had endocarditis. We ensured that the patient did not have a lung abscess this time. He was discharged into swing bed level 1 status (still at [facility]) on 01/06/2020. The patient was clinically steadily improving until 01/22/2020, when the patient developed sudden acute hypoxic respiratory failure requiring 4L of O2 and signs of sepsis, with new right-sided infiltrate on imaging. He was re-admitted into acute inpatient status under the hospitalist service on 01/22/2020. COVID-19 was again ruled out. Antibiotics were upgraded to vancomycin/cefepime. Blood cultures were repeated (done in absence of central line) with 1/4 bottles growing Staph epidermidis, which most likely was contaminant, but it was suspicious that on 01/01/2020 staph epi also grew out of 1 of the blood cultures. The patient was clinically improving on above regimen. Other sources of infection were ruled out, but it does appear unlikely that MSSA could have been the cause of his new pneumonia, as he was already on oxacillin. Aspiration pneumonia due to GERD was felt more likely. Repeat limited echocardiogram to assess the health of the valves was negative for vegetations (01/26/2020). The patient was discharged back into swing bed level 1 status on 01/30/2020 with plans to continue vancomycin through the evening of 02/07/2020 and subsequent discharge home. At this time, the patient is no longer requiring oxygen at rest or on ambulation. His CRP normalized. Yet again, his COVID-19 nasopharyngeal PCR is negative (02/05/2020). He is medically stable for discharge back into his senior care environment post completion of his last dose of anitbiotic (vancomycin) tonight. He is asked to follow aspiration precautions, such as sit up for at least 30 minutes after eating and always sleep at a 30 degree angle. Care for patient as well as completion of discharge summary took 45 minutes to complete. Home Meds and New Rx's Prescriptions: New ascorbic acid (vitamin C) [Vitamin C] 500 mg Tablet 500 mg PO DAILY Qty: 30 RF: 0 albuterol sulfate [Ventolin HFA] 90 mcg/actuation Hfa Aerosol Inhaler 2 puff inhalation Q4H PRN PRNQty: 18 RF: 0 famotidine 20 mg Tablet 20 mg PO HS Qty: 30 RF: 0 docusate sodium [Colace] 100 mg Capsule 100 mg PO BID Qty: 60 RF: 0 polyethylene glycol 3350 [Miralax] 17 gram/dose powder 17 gm PO DAILY Qty: 510 RF: 0 cholecalciferol (vitamin D3) [Vitamin D3] 50 mcg (2,000 unit) capsule 2,000 unit PO DAILY Qty: 30 RF: 0 Continued ferrous gluconate 324 mg (38 mg iron) tablet 324 mg PO DAILY RF: 0 pioglitazone [Actos] 30 mg tablet 30 mg PO DAILY RF: 0 simvastatin 20 mg tablet 20 mg PO QHS RF: 0 Anoro Ellipta 62.5-25 mcg/actuation blister with device 1 inh IH DAILY RF: 0 bupropion HCl [Wellbutrin XL] 300 mg tablet extended release 24 hr 300 mg PO QAM RF: 0 calcium carbonate 200 mg calcium (500 mg) Tablet,Chewable 500 mg PO TID PRN PRNQty: 0 RF: 0 alum-mag hydroxide-simeth [Mag-Al Plus] 200-200-20 mg/5 mL Suspension 30 ml PO Q2H PRN PRNQty: 0 RF: 0 metformin 500 mg Tablet 1,500 mg PO DAILY Qty: 90 RF: 0 Eliquis 5 mg Tablet 5 mg PO BID Qty: 60 RF: 0 multivitamin [Multiple Vitamins] Tablet 1 tab PO DAILY Qty: 30 RF: 0 cyanocobalamin (vitamin B-12) [Vitamin B-12] 500 mcg Tablet 1,000 mcg PO DAILY Qty: 60 RF: 0 pantoprazole 40 mg Tablet,Delayed Release (Dr/Ec) 40 mg PO BID@0730,2000 Qty: 30 RF: 0 docusate sodium [Colace] 100 mg Capsule 100 mg PO DAILY Qty: 30 RF: 0 folic acid 1 mg Tablet 1 mg PO DAILY Qty: 30 RF: 0 magnesium chloride [Mag 64] 64 mg Tablet,Delayed Release (Dr/Ec) 64 mg PO BID Qty: 30 RF: 0 metformin 1,000 mg Tablet 1,000 mg PO .QHS RF: 0 ziprasidone HCl [Geodon] 80 MG capsule 160 mg PO .QHS RF: 0 ziprasidone HCl [Geodon] 80 MG capsule 80 mg PO DAILY RF: 0 clozapine [Clozaril] 100 MG tablet 200 mg PO DAILY RF: 0 clozapine [Clozaril] 100 MG tablet 375 mg PO .QHS RF: 0 acetaminophen [Mapap Extra Strength] 500 MG tablet 1,000 mg PO .Q8HRS RF: 0 Flovent HFA 120 PUFF HFA aerosol inhaler 2 puff Inhalation BID RF: 0 Discharge Instructions Instructions: Sepsis (GEN), Bacterial Pneumonia (DC), Aspiration Precautions (DC) Additional Instructions: Return to the hospital with any fever, bleeding, chest pain, shortness of breath, or if you feel sicker. Follow up with your PCP in 1-2 weeks. Always wear a mask if you are going to be within 6 feet of another person. Wash your hands frequently with soap and water for at least 20 seconds. Referrals: Columba Carter [Primary Care Provider] - Activity:: Activity as Tolerated Equipment/Supplies:: No Equipment Needed Diet:: Carb Counting Discharge Orders Discharge Orders: Discharge Order (Routine); Ordered 02/08/20 Ordered By: Radha Matos DS: Summary Status at Discharge Functional status at discharge: independent ambulation Overall status at discharge: patient is back to baseline Mental Status: mental status grossly normal Speech and Movement: speech and movement normal Mood: congruent mood Affect: normal affect Exam Narrative Exam Narrative: General: Very pleasant middle-aged male, A&Ox3, no distress, slight drooling noted (baseline) HEENT: EOMI, MMM Heart: RRR, no m/r/g Lungs: CTAB Abdomen: soft, nontender, nondistended Extremities: no e/c/c BLE's Psych Mental Status: mental status grossly normal Speech and Movement: speech and movement normal Mood: congruent mood Affect: normal affect DS: Data Vitals/I&O Vitals and I&O: Vital Signs Temperature 36.8 C 02/07/20 07:41 Temperature Source Temporal Artery Scan 02/07/20 07:41 Pulse 85 02/07/20 07:41 Pulse Rhythm Regular 02/07/20 09:41 Respiratory Rate 18 02/07/20 07:41 Respiratory Effort 02/07/20 09:41 Respiratory Depth Normal 02/07/20 09:41 Respiratory Pattern Normal 02/07/20 09:41 Blood Pressure 104/67 02/07/20 07:41 Pulse Oximetry 95 02/07/20 07:41 Oxygen Delivery Method Room Air 02/07/20 07:41 Oxygen Flow Rate 0 02/07/20 07:41 Pain Level 0 02/06/20 18:55 Intake & Output 02/06/20 02/07/20 02/07/20 23:59 11:59 23:59 Intake Total 570 / 1200 250 / 250 Output Total 450 / 450 Balance 570 / 1000 -200 / -200 Intake: IV 250 / 520 250 / 250 Oral 320 / 680 Output: Urine 400 / 400 Stool 50 / 50 Other: Urine Color Yellow Urine Appearance Clear Urine Odor None Stool Size Small Stool Characteristics Soft Brown Voiding Methods Toilet Data Completed and Pending Completed studies during hospitalization [Text1]: CXR 02/06/2020: Mild airspace disease with interval improvement in right upper lobe airspace disease. Echo 01/26/2020: This is a limited echo specifically to look for valvular vegetations. Left Ventricle : The Left Ventricular Ejection Fraction is within the low???normal range Valves: There are no valvular vegetations visualized. Compared to echocardiogram dated 01/04/2020: There is no significant change. [facility] Medical History (Updated 02/07/20 @ 13:32 by Radha Matos MD) Acute thrombosis of right basilic vein (Inactive) Complication associated with peripherally inserted central catheter (PICC) (Inactive) Constipation, chronic (Chronic) COPD (chronic obstructive pulmonary disease) (Chronic) Diabetes mellitus (Chronic) GERD (gastroesophageal reflux disease) (Chronic) H/O schizophrenia (Acute) H/O: CVA (cerebrovascular accident) (Acute) Hypertension (Chronic) Non-insulin dependent type 2 diabetes mellitus (Chronic) Oropharyngeal dysphagia (Acute) Pulmonary emboli (Inactive) Schizo affective schizophrenia (Chronic) Family History Mother No problems noted. Social History Smoking/Tobacco Use Status: Former Tobacco Use Tobacco: How many years used: 43 Alcohol Intake: former Drug use: Occasionally Substance use type: marijuana Do you feel safe at home: Yes Do you feel safe in your relationship?: Yes
[2020-02-07 15:25] VITALS: BP 111/73; PULSE 91; RESP 18; TEMP 36.1; O2SAT 95
[2020-02-07] MEDS: Normal Saline Flush 10 ML SYR IVP (15:55)
[2020-02-07] MEDS: metFORMIN 500 MG TAB 1000 MG PO (17:16)
[2020-02-07 19:10] VITALS: BP 119/72; PULSE 91; RESP 18; TEMP 36.6; O2SAT 96
[2020-02-07] MEDS: Famotidine 20 MG TAB PO (22:31)
[2020-02-07] MEDS: Simvastatin 20 MG TAB PO (22:31)
[2020-02-08] MEDS: Acetaminophen 325 MG TAB PO (05:24)
[2020-02-08 07:41] VITALS: BP 110/71; PULSE 87; RESP 20; TEMP 36.7; O2SAT 95
[2020-02-08] MEDS: Insulin Aspart 300 UNITS/3 ML PEN SC ×2 (08:04)
[2020-02-08] MEDS: Pantoprazole 40 MG TABCR PO (08:06)
[2020-02-08] MEDS: Polyethylene Glycol 3350 17 GM PACKET PO (08:06)
[2020-02-08] MEDS: Apixaban 5 MG TAB PO (08:07)
[2020-02-08] MEDS: Cyanocobalamin 500 MCG TAB 1000 MCG PO (08:07)
[2020-02-08] MEDS: Ascorbic Acid 500 MG TAB PO (08:07)
[2020-02-08] MEDS: Folic Acid 1 MG TAB PO (08:07)
[2020-02-08] MEDS: guaiFENesin 600 MG TABCR PO (08:07)
[2020-02-08] MEDS: Docusate Sodium 100 MG CAP PO (08:08)
[2020-02-08] MEDS: Cholecalciferol (Vitamin D3) 400 UNIT TAB PO (08:08)
[2020-02-08] MEDS: Multivitamin TAB 1 TAB PO (08:08)
[2020-02-08] MEDS: Magnesium Chloride 64 MG TABCR PO (08:08)
[2020-02-08] MEDS: Normal Saline Flush 10 ML SYR 20 ML IVP (08:09)
[2020-02-08] MEDS: buPROPion-XL 150 MG TABCR 300 MG PO (08:09)
--- NOTE | 2020-02-08 08:31 | CMDISCH_ITS ---
LACE Index Scoring Tool - Questions: Length of Stay (in days): 14 or more Acuity (Admit via E.D.?): Yes Comorbidities: Diabetes w/o Complication, Chronic Pulmonary Disease E.D. Visits: 2 - Answers: Total Score: 15 Risk of Readmission: High Risk Care Management Discharge Reason for Hospitalization: Bacteremia, Pneumonia Discharge Plan: Elias will return to [place] when ready per MD. He will transport via private vehicle with the facility's global process owner, Petra. He will follow up with his PCP and plan of care as prescribed. No additional services at this time, though Elias will resume prior support services in the community including the GEOGRAPHIC INFORMATION SYSTEM ANALYST program through [facility]. Patient/Family Education Needs: Review discharge instructions, discuss Ask Me Three. Services Needed at Discharge: Correction Facility (NOT SKILLED: [facility] ) - MH Services (Omit if N/A) Current MH Services: GEOGRAPHIC INFORMATION SYSTEM ANALYST ([facility])
--- NOTE | 2020-02-08 08:31 | PDOC.CMDIS ---
LACE Index Scoring Tool - Questions: Length of Stay (in days): 14 or more Acuity (Admit via E.D.?): Yes Comorbidities: Diabetes w/o Complication, Chronic Pulmonary Disease E.D. Visits: 2 - Answers: Total Score: 15 Risk of Readmission: High Risk Care Management Discharge Reason for Hospitalization: Bacteremia, Pneumonia Discharge Plan: Elias will return to [place] when ready per MD. He will transport via private vehicle with the facility's heart doctor, Petra. He will follow up with his PCP and plan of care as prescribed. No additional services at this time, though Elias will resume prior support services in the community including the PRINCIPAL JAVA DEVELOPER program through [facility]. Patient/Family Education Needs: Review discharge instructions, discuss Ask Me Three. Services Needed at Discharge: Group Home Facility (NOT SKILLED: [facility] ) - MH Services (Omit if N/A) Current MH Services: PRINCIPAL JAVA DEVELOPER ([facility])
[2020-02-08] MEDS: Ferrous Gluconate 324 MG TAB PO (09:49)
[2020-02-08] MEDS: Bacitracin 1 PACKET (10:15)
== END 2020-02-08 11:05 | disposition home or self-care (01) | DRG 871 ==
PROVIDERS: Nurse Practitioner Acute Care; Nurse Practitioner Family; Admitting Provider Internal Medicine; PCP Nurse Practitioner Family; Visit Provider Internal Medicine
DX: R78.81 Bacteremia (principal); J18.9 Pneumonia, unspecified organism; Z79.2 Long term (current) use of antibiotics; B95.61 Methicillin susceptible Staphylococcus aureus infection as the cause of diseases classified elsewhere; E11.9 Type 2 diabetes mellitus without complications; Z79.4 Long term (current) use of insulin; I10 Essential (primary) hypertension; Z86.711 Personal history of pulmonary embolism; Z79.01 Long term (current) use of anticoagulants
CPT/HCPCS: 36410; 36415; 80048; 94640; 99223; 99233; 99306; 99309; 99316; U0003; 71046; 80202; 82565; 85025; 86140; J3490

== ENCOUNTER 2020-03-09 01:34 | Outpatient (CLI) | payer MEDICARE, MEDICAID, SELFPAY ==
[2020-03-09 13:26] LABS: Abs Immature Grans 0.04 k/cumm (0.0-0.09); Absolute Basophil Count 0.01 k/cumm (0.0-0.2); Absolute Lymphocyte Count 1.86 k/cumm (1.2-3.4); Basophils % 0.1; Eosinophils % 0.8; HCT 37.3 % (40.0-50.0); HGB 12.2 g/dL (13.5-17.5); Immature Grans % 0.3 %; Lymphocytes % 14.5; Mean Corp. HGB Concentration 32.7 g/dL (32.0-36.0); Mean Corpuscular Hemoglobin 29.2 pg (27.0-33.0); Mean Corpuscular Volume 89.2 fL (80-95); Monocytes % 8.6; Neutrophils % 75.7; Platelet Count 406 x1000/uL (130-400); RBC 4.18 m/cumm (4.50-6.00); RBC Distribution Width 15.6 % (11.8-14.1); White Blood Cell Count 12.83 k/cumm (4.4-10.8)
[2020-03-09 13:27] LABS: Absolute Neutrophil Count 9.71 k/cumm (1.2-6.7)
== END 2020-03-09 01:54 ==
PROVIDERS: PCP Nurse Practitioner Family; Visit Provider Nurse Practitioner Family
DX: F20.9 Schizophrenia, unspecified (principal); Z79.899 Other long term (current) drug therapy
CPT/HCPCS: 36415; 85025

== ENCOUNTER 2020-04-05 03:11 | Outpatient (CLI) | payer MEDICARE, MEDICAID, SELFPAY ==
[2020-04-05 10:32] LABS: Abs Immature Grans 0.06 k/cumm (0.0-0.09); Eosinophils % 0.6; HCT 38.7 % (40.0-50.0); HGB 12.5 g/dL (13.5-17.5); Immature Grans % 0.4 %; Lymphocytes % 8.9; Mean Corp. HGB Concentration 32.3 g/dL (32.0-36.0); Mean Corpuscular Hemoglobin 29.1 pg (27.0-33.0); Mean Corpuscular Volume 90.2 fL (80-95); Mean Platelet Volume 9.7 fL (8.0-11.0); Monocytes % 8.4; Neutrophils % 81.7; Platelet Count 338 x1000/uL (130-400); RBC 4.29 m/cumm (4.50-6.00); RBC Distribution Width 16.2 % (11.8-14.1); White Blood Cell Count 16.46 k/cumm (4.4-10.8)
[2020-04-05 10:33] LABS: Absolute Lymphocyte Count 1.46 k/cumm (1.2-3.4); Absolute Monocyte Count 1.38 k/cumm (0.11-0.7); Absolute Neutrophil Count 13.45 k/cumm (1.2-6.7)
== END 2020-04-05 03:31 ==
PROVIDERS: PCP Nurse Practitioner Family; Visit Provider Nurse Practitioner Family
DX: F20.9 Schizophrenia, unspecified (principal); Z79.899 Other long term (current) drug therapy
CPT/HCPCS: 36415; 85025

== ENCOUNTER 2020-04-12 00:50 | Outpatient (CLI) | payer MEDICARE, MEDICAID, SELFPAY ==
--- NOTE | 2020-04-12 | DI.CT_ITS ---
EXAM: CT CHEST WO CLINICAL HISTORY: CHRONIC OBSTRUCTIVE LUNG DISEASE, J44.9, F/U MULTILOBAR RT SIDED PNEUMONIA TECHNIQUE: COMPARISON: CT CT CHEST WO from 01/22/2020 FINDINGS: CT examination chest was performed without contrast administration. Images obtained through upper sh ow unremarkable appearance of visualized portions of the liver, pancreas, adrenals, and kidneys. Mul tiple small splenic calcifications noted consistent with granulomas.. There is no mediastinal or hilar adenopathy. Left upper lobe calcified granuloma noted, calcified hi lar nodes noted. No thoracic aortic aneurysm. Tracheobronchial tree is predominantly unremarkable except for a few areas peripheral bronchiectasis. Previous CT of January 21 showed multiple areas of ground-glass and consolidative opacity in right roselyn ng consistent with pneumonia. On today's examination findings have largely. There are scattered are as minimal reticular and ground-glass opacity, most prominent in right base, the findings are most li manjula to represent scarring. No focal mass identified. No pleural effusion. Left lung is predominan tly clear, small areas of apparent atelectasis or scarring are noted in right middle lobe and lingula . IMPRESSION: Predominant interval resolution of previously noted multifocal right pneumonitis, scattered reticular radiodensities on the right consistent with scarring. No other significant acute findings.
== END 2020-04-12 01:10 ==
PROVIDERS: PCP Nurse Practitioner Family; Visit Provider Internal Medicine
DX: J18.9 Pneumonia, unspecified organism (principal); J98.4 Other disorders of lung; J44.9 Chronic obstructive pulmonary disease, unspecified
CPT/HCPCS: 71250

== ENCOUNTER 2020-04-21 17:04 | Inpatient (IN) | payer MEDICARE, MEDICAID, SELFPAY ==
[2020-04-21] VITALS (33 sets, daily range): BP systolic 74–132; BP diastolic 51–69; PULSE 85–99; RESP 16–17; TEMP 36.8–36.9; O2SAT 94–99
--- NOTE | 2020-04-21 17:15 | ED.GENADUL_ITS ---
Discharge Plan Disposition Patient Disposition: [facility] INPATIENT Condition: Stable Discharge Details Chief Complaint: Urinary Clinical Impression: Acute pyelonephritis, Leukocytosis Primary Care Provider: Columba Carter ED Provider: Mary Candelario Home Meds and New Rx's Prescriptions: No Action ferrous gluconate 324 mg (38 mg iron) tablet 324 mg PO DAILY RF: 0 pioglitazone [Actos] 30 mg tablet 30 mg PO DAILY RF: 0 simvastatin 20 mg tablet 20 mg PO QHS RF: 0 Anoro Ellipta 62.5-25 mcg/actuation blister with device 1 inh IH DAILY RF: 0 bupropion HCl [Wellbutrin XL] 300 mg tablet extended release 24 hr 300 mg PO QAM RF: 0 calcium carbonate 200 mg calcium (500 mg) Tablet,Chewable 500 mg PO TID PRN PRNQty: 0 RF: 0 alum-mag hydroxide-simeth [Mag-Al Plus] 200-200-20 mg/5 mL Suspension 30 ml PO Q2H PRN PRNQty: 0 RF: 0 Eliquis 5 mg Tablet 5 mg PO BID Qty: 60 RF: 0 multivitamin [Multiple Vitamins] Tablet 1 tab PO DAILY Qty: 30 RF: 0 cyanocobalamin (vitamin B-12) [Vitamin B-12] 500 mcg Tablet 1,000 mcg PO DAILY Qty: 60 RF: 0 pantoprazole 40 mg Tablet,Delayed Release (Dr/Ec) 40 mg PO BID@0730,1999 Qty: 30 RF: 0 docusate sodium [Colace] 100 mg Capsule 100 mg PO DAILY Qty: 30 RF: 0 folic acid 1 mg Tablet 1 mg PO DAILY Qty: 30 RF: 0 magnesium chloride [Mag 64] 64 mg Tablet,Delayed Release (Dr/Ec) 64 mg PO BID Qty: 30 RF: 0 metformin 1,000 mg Tablet 1,000 - 1,500 mg PO DIRECTED RF: 0 lisinopril 2.5 mg Tablet 2.5 mg PO DAILY RF: 0 famotidine 40 mg Tablet 40 mg PO DAILY RF: 0 cholecalciferol (vitamin D3) [Vitamin D3] 50 mcg (2,000 unit) capsule 1,000 unit PO DAILY RF: 0 hydroxyzine pamoate 25 mg capsule 25 mg PO TID RF: 0 ibuprofen 200 mg Tablet 200 mg PO PRN PRNRF: 0 acetaminophen [Tylenol Arthritis Pain] 650 mg Tablet Extended Release 650 mg PO BID PRNRF: 0 acetaminophen [Tylenol Extra Strength] 500 mg Tablet 1,000 mg PO Q8H PRNRF: 0 famotidine 20 mg tablet 40 mg PO HS RF: 0 ziprasidone HCl [Geodon] 80 MG capsule 80 - 160 mg PO DIRECTED RF: 0 clozapine [Clozaril] 100 MG tablet 200 - 375 mg PO DIRECTED RF: 0 acetaminophen [Mapap Extra Strength] 500 MG tablet 1,000 mg PO .Q8HRS RF: 0 Flovent HFA 120 PUFF HFA aerosol inhaler 2 puff Inhalation BID RF: 0 ascorbic acid (vitamin C) [Vitamin C] 500 mg Tablet 500 mg PO DAILY Qty: 30 RF: 0 albuterol sulfate [Ventolin HFA] 90 mcg/actuation Hfa Aerosol Inhaler 2 puff inhalation Q4H PRN PRNQty: 18 RF: 0 polyethylene glycol 3350 [Miralax] 17 gram/dose powder 17 gm PO DAILY Qty: 510 RF: 0 Medical Decision Making 172 -- 64-year-old male with a history of COPD, diabetes, GERD, CVA, and schizophrenia presents for fever, dizziness and urinary retention since last night. Noted to have a temp of 100.8 and abdominal distention in the PCP office today and sent to ED for further evaluation. He was given 1 g of ceftriaxone at PCP office today for possible UTI. Vitals within normal limits. Patient appears nontoxic. He was noted to be slightly wobbly walking back from the bathroom. Lungs clear. Abdomen soft nontender. Normal exam. No focal deficits. Report from [facility] noted that patient had leukocytes and blood in his urine and was given a dose of ceftriaxone. Differential diagnosis includes UTI, pyelonephritis, kidney stone, renal mass or other acute abdominal abnormality, CVA, pneumonia, etc. Will place an IV, bolus IV fluids, screening labs, urinal ysis, CT head, chest abdomen pelvis and reassess. 1899 --labs and imaging reviewed. White blood cell count 40. Patient was a size 41 in November when he had pneumonia. Most recently 16 earlier this month. Lactate 1.7. Magnesium 1.5. Troponin negative. Urinalysis notes 5-10 WBCs and 20-[address] head negative. CT chest negative for acute findings. CT abdomen and pelvis notes bladder wall thickening consistent with cystitis and large amount of stool in colon but no obstruction or evidence of acute rectal findings. Rectal exam done at bedside for complaint of rectal pain at [facility] and there is what appears to be erythema which may be a fungal rash at the gluteal crease but no sacral ulcer and rectum normal to inspection and digital exam with negative Hemoccult. Considering patient's fever at PCP office, significantly elevated white blood cell count with likely UTI as a source, will admit for UTI with fever, questionable pyelonephritis for IV fluids, antibiotics and observation. 1930 -- Case discussed with hospitalist accepts patient for admission. Would like another 1 g of ceftriaxone given. Medical Records Medical records reviewed: Yes I reviewed the patient's medical records. Imaging Data Radiologic Study: Radiologist's impression: Addendum created by Jim Worthy MD on 04/21/2020 7:31:35 PM EDT THIS REPORT CONTAINS FINDINGS THAT MAY BE CRITICAL TO PATIENT CARE. The findings were verbally communicated via telephone conference with Mary Candelario at 7:31 PM EDT on 04/21/2020. The findings were acknowledged and understood. Initial report created on 04/21/2020 7:30:[address] Chest With Contrast Exam date and time: 04/21/2020 6:32 PM Age: 64 years old Clinical indication: Other: Dizzy, weakness, urinary retention TECHNIQUE: Imaging protocol: Computed tomography of the chest with intravenous contrast. COMPARISON: CT ABDOMEN PELVIS W 01/22/2020 2:42 PM and noncontrast chest CT from 22 January 2020. FINDINGS: Lungs: Patchy multinodular infiltrates were described in the right upper, middle and lower lobes on the comparison CT of the chest from 22 January 2020. These multifocal infiltrates have almost completely resolved with a few stranded linear postinflammatory densities now visible in these areas and no new consolidation or collapse detected. Minimal linear stranded densities along the inferior margin of the lingula could also represent chronic postinflammatory changes with remainder of the left lung grossly clear. Pleural space: No pneumothorax or pleural effusion seen. Heart: Heart size is normal and there is no pericardial effusion detected Aorta: No evidence of thoracic aortic aneurysm or dissection. Lymph nodes: No mediastinal or hilar mass or adenopathy seen. Bones/joints: No acute osseous lesions are detected at thoracic levels. Soft tissues: Right-sided gynecomastia is again evident.. IMPRESSION: 1. Interval clearing of the multifocal infiltrates seen throughout the right lung on the comparison study with no new consolidation or collapse detected. 2. No other evidence of an acute cardiopulmonary process. CT Abdomen And Pelvis With Contrast Exam date and time: 04/21/2020 6:32 PM Age: 64 years old Clinical indication: Other: Dizzy, weakness, urinary retention TECHNIQUE: Imaging protocol: Computed tomography of the abdomen and pelvis with intravenous contrast. COMPARISON: CT ABDOMEN PELVIS W 01/22/2020 2:42 PM FINDINGS: Liver: Jose's lobe incidentally noted with no focal hepatic lesions detected. Gallbladder and bile ducts: Unrtemarkable with no calcified stone or ductal dilatation detected. Pancreas: A few tiny punctate calcifications in the region of the pancreatic head could relate to remote pancreatitis and no pancreatic mass or ductal dilation is detected. Spleen: Few tiny punctate calcified granulomas are again seen throughout the splenic parenchyma and there is no splenomegaly or splenic mass. Adrenals: Probable bilateral adrenal hyperplasia is unchanged in appearance. Kidneys and ureters: Bilateral excretion of contrast material with no hydronephrosis seen. A discrete 3.6 cm exophytic fluid attenuation cyst seen along the posterior margin of the lower pole of the right kidney requires no further follow-up. Stomach and bowel: Large amounts of stool are seen throughout moderately dilated segments of colon. Mildly dilated segments of fluid fill small bowel seen in the central abdomen inferiorly with multiple air-fluid levels on the prior study have resolved and there is mild dilatation of a few fluid-filled small bowel segments seen in the right lower quadrant without pathologic dilatation. No pneumatosis detected involving segments of large or small bowel. Multiple ellipsoidal densities consistent with ingested medication are seen throughout colonic segments. Appendix: No evidence of appendicitis. Intraperitoneal space: No pneumoperitoneum or free intraperitoneal fluid detected. Vasculature: No abdominal aortic aneurysm Lymph nodes: No lymphadenopathy detected. Bladder: The bladder is incompletely distended but shows lobular irregular wall thickening and mucosal enhancement throughout its margins. Reproductive: Unremarkable as visualized. Bones/joints: No new osseous lesions are detected. Soft tissues: Unremarkable. IMPRESSION: 1. Large amounts of stool again seen throughout all colonic segments and the rectum suggesting constipation. No mechanical obstruction or evidence of perforation is detected. 2. Lobular and irregular thickening of the wall urinary bladder with mucosal enhancement is identified and raises the possibility of cystitis. Please correlate with clinical data. CT Head Without Contrast Exam date and time: 04/21/2020 6:28 PM Age: 64 years old Clinical indication: Other: Weak, dizzy TECHNIQUE: Imaging protocol: Computed tomography of the head without contrast. COMPARISON: No relevant prior studies available. FINDINGS: Brain: Cerebral sulci show bilateral symmetry with no supratentorial mass or mass effect detected. Brainstem and cerebellum are normal in appearance. No significant foci of abnormal increased or decreased attenuation are seen within the brain parenchyma. There is no evidence of acute infarct or intracranial hemorrhage. Ventricles: Ventricular and cisternal spaces are normal in size and configuration and there is no midline shift or hydrocephalus seen. Bones/joints: Bony calvarium and skull base are intact and no acute fractures are detected. Sinuses: Paranasal sinuses are clear throughout and their bony margins are intact at the levels imaged. Mastoid air cells: Normally pneumatized and clear bilaterally. Soft tissues: Unremarkable. IMPRESSION: Unremarkable noncontrast head CT with no evidence of an acute intracranial process. Lab Data Lab results reviewed: Yes I reviewed the patient's lab results. Labs: 04/21/20 17:24 Urine - Reflex from Ua Urine Culture - Pending Laboratory Tests Range/Units 04/21/20 04/21/20 04/21/20 17:24 17:40 17:40 WBC (4.4-10.8) k/cumm RBC (4.50-6.00) m/cumm Hgb (13.5-17.5) g/dL Hct (40.0-50.0) % MCV (80-95) fL MCH (27.0-33.0) pg MCHC (32.0-36.0) g/dL RDW (11.8-14.1) % Plt Count (130-400) x1000/uL MPV (8.0-11.0) fL Immature Gran % % Neutrophils % Lymphocytes % Monocytes % Eosinophils % Basophils % Absolute Neutrophils (1.2-6.7) k/cumm Absolute Lymphocytes (1.2-3.4) k/cumm Absolute Monocytes (0.11-0.7) k/cumm Absolute Eosinophils (0.0-0.7) k/cumm Absolute Basophils (0.0-0.2) k/cumm Differential Comment RBC Morphology PT (9.3-11.0) sec INR (0.9-1.1) APTT (21.0-31.4) sec Sodium (136-145) mmol/L 131 L Potassium (3.5-5.1) mmol/L 4.5 Chloride (98-107) mmol/L 94 L Carbon Dioxide (21.0-32.0) mmol/L 23.0 Anion Gap (3-11) mmol/L 14.0 H BUN (7-18) mg/dL 17 Creatinine (0.70-1.30) mg/dL 1.19 Estimated GFR/1.73 m2 (mL/min/1.73m2) >= 60.00 Glucose (74-106) mg/dL 183 H Lactate (0.6-1.4) mmol/L 1.7 H Calcium (8.5-10.1) mg/dL 8.9 Magnesium (1.8-2.4) mg/dL 1.5 L Total Bilirubin (0.2-1.0) mg/dL 0.5 AST (15-37) U/L 12 L ALT (16-63) U/L 15 L Alkaline Phosphatase (46-116) U/L 96 Troponin I (<0.06) ng/mL < 0.05 Total Protein (6.4-8.2) g/dL 7.1 Albumin (3.4-5.0) g/dL 3.4 Urine Color (Yellow) Vandana Urine Clarity (Clear) Cloudy Urine pH (5-8) 5.5 Ur Specific Wadsworth (1.005-1.025) >= 1.030 H Urine Protein (Negative) mg/dL 100 H Urine Ketones (Negative) mg/dL 15 H Urine Blood (Negative) Large H Urine Nitrite (Negative) Negative Urine Bilirubin (Negative) Small H Urine Urobilinogen (Up TO 0.2) EU/dL 0.2 Ur Leukocyte Esterase (Negative) Small H Urine RBC (0-2) HPF 20-50 H Urine WBC (0-5) HPF 5-10 Ur Epithelial Cells (Negative) HPF Few Urine Crystals (Negative) HPF Negative Urine Bacteria (Negative) HPF Moderate Urine Casts (Negative) LPF Negative Urine Mucus (Negative) Negative Ur Culture Indicated? Yes Urine Glucose (Negative) mg/dL Negative Range/Units 04/21/20 04/21/20 17:40 17:40 WBC (4.4-10.8) k/cumm 40.52 H* RBC (4.50-6.00) m/cumm 4.05 L Hgb (13.5-17.5) g/dL 12.0 L Hct (40.0-50.0) % 35.6 L MCV (80-95) fL 87.9 MCH (27.0-33.0) pg 29.6 MCHC (32.0-36.0) g/dL 33.7 RDW (11.8-14.1) % 15.6 H Plt Count (130-400) x1000/uL 301 MPV (8.0-11.0) fL 10.1 Immature Gran % % 0.8 Neutrophils % 85.3 Lymphocytes % 2.8 Monocytes % 11.1 Eosinophils % 0.0 Basophils % 0.0 Absolute Neutrophils (1.2-6.7) k/cumm 34.56 H Absolute Lymphocytes (1.2-3.4) k/cumm 1.13 L Absolute Monocytes (0.11-0.7) k/cumm 4.50 H Absolute Eosinophils (0.0-0.7) k/cumm 0.00 Absolute Basophils (0.0-0.2) k/cumm 0.00 Differential Comment Agrees w/ instrument RBC Morphology Normal PT (9.3-11.0) sec 11.6 H INR (0.9-1.1) 1.2 H APTT (21.0-31.4) sec 52.9 H Sodium (136-145) mmol/L Potassium (3.5-5.1) mmol/L Chloride (98-107) mmol/L Carbon Dioxide (21.0-32.0) mmol/L Anion Gap (3-11) mmol/L BUN (7-18) mg/dL Creatinine (0.70-1.30) mg/dL Estimated GFR/1.73 m2 (mL/min/1.73m2) Glucose (74-106) mg/dL Lactate (0.6-1.4) mmol/L Calcium (8.5-10.1) mg/dL Magnesium (1.8-2.4) mg/dL Total Bilirubin (0.2-1.0) mg/dL AST (15-37) U/L ALT (16-63) U/L Alkaline Phosphatase (46-116) U/L Troponin I (<0.06) ng/mL Total Protein (6.4-8.2) g/dL Albumin (3.4-5.0) g/dL Urine Color (Yellow) Urine Clarity (Clear) Urine pH (5-8) Ur Specific Wadsworth (1.005-1.025) Urine Protein (Negative) mg/dL Urine Ketones (Negative) mg/dL Urine Blood (Negative) Urine Nitrite (Negative) Urine Bilirubin (Negative) Urine Urobilinogen (Up TO 0.2) EU/dL Ur Leukocyte Esterase (Negative) Urine RBC (0-2) HPF Urine WBC (0-5) HPF Ur Epithelial Cells (Negative) HPF Urine Crystals (Negative) HPF Urine Bacteria (Negative) HPF Urine Casts (Negative) LPF Urine Mucus (Negative) Ur Culture Indicated? Urine Glucose (Negative) mg/dL ECG Data Attestation: I personally reviewed and interpreted this ECG (s) as follows: Interpretation: Rate of 93, sinus, no acute ST depression or depression. [place] 143. QRS 94. QTc 456. HPI General Mode of arrival: ambulatory . Date/Time Provider Initiated Documentation: 04/21/20 17:07 . Limitations to Documentation: no limitations . Information obtained by: patient . HPI Narrative: Pt is a 64yo M with a history of COPD, diabetes, GERD, CVA, hypertension, schizophrenia presents for urinary retention, dysuria, dizziness and weakness since last night. Patient states his most significant complaint is dizziness. He also has a decreased appetite since last night. He admits to a fever of 100.4 today. He denies any headache, chest pain, shortness of breath, abdominal pain. Per report from [facility], patient reported there today for fever, abdominal distention, urinary urgency and retention. Temp at [facility] 100.8 tympanic. Patient was given a dose of second Chapito IM x1 and referred to the ER for further evaluation. Related Data Home Medications Medication Instructions Recorded Confirmed Flovent HFA 2 puff INHALATION BID 06/18/17 04/21/20 acetaminophen [Mapap Extra 1,000 mg PO .Q8HRS 06/18/17 04/21/20 Strength] clozapine [Clozaril] 200 - 375 mg PO DIRECTED 06/18/17 04/21/20 ziprasidone HCl [Geodon] 80 - 160 mg PO DIRECTED 06/18/17 04/21/20 alum-mag hydroxide-simeth [Mag-Al 30 ml PO Q2H PRN PRN #0 ml 12/05/18 01/30/20 Plus] calcium carbonate 500 mg PO TID PRN PRN #0 tab 12/05/18 04/21/20 Eliquis 5 mg PO BID #60 tab 01/23/19 04/21/20 cyanocobalamin (vitamin B-12) 1,000 mcg PO DAILY #60 tab 01/23/19 04/21/20 [Vitamin B-12] docusate sodium [Colace] 100 mg PO DAILY #30 cap 01/23/19 04/21/20 folic acid 1 mg PO DAILY #30 tab 01/23/19 04/21/20 magnesium chloride [Mag 64] 64 mg PO BID #30 tab 01/23/19 04/21/20 multivitamin [Multiple Vitamins] 1 tab PO DAILY #30 tab 01/23/19 04/21/20 pantoprazole 40 mg PO BID@0730,1999 #30 tab 01/23/19 04/21/20 bupropion HCl 300 mg 24 hr tablet, 300 mg PO QAM 08/14/19 04/21/20 extended release ferrous gluconate 324 mg (38 mg 324 mg PO DAILY 08/14/19 04/21/20 iron) tablet pioglitazone 30 mg tablet 30 mg PO DAILY 08/14/19 04/21/20 simvastatin 20 mg tablet 20 mg PO QHS 08/14/19 04/21/20 umeclidinium 62.5 mcg-vilanterol 1 inh IH DAILY 08/14/19 04/21/20 25 mcg/actuation powdr for inhalation metformin 1,000 - 1,500 mg PO DIRECTED 12/24/19 04/21/20 albuterol sulfate [Ventolin HFA] 2 puff INHALATION Q4H PRN PRN #18 02/07/20 04/21/20 gm NS ascorbic acid (vitamin C) [Vitamin 500 mg PO DAILY #30 tab 02/07/20 04/21/20 C] polyethylene glycol 3350 [Miralax] 17 gm PO DAILY #510 gm 02/07/20 04/21/20 acetaminophen [Tylenol Arthritis 650 mg PO BID PRN 04/21/20 04/21/20 Pain] acetaminophen [Tylenol Extra 1,000 mg PO Q8H PRN 04/21/20 04/21/20 Strength] cholecalciferol (vitamin D3) 1,000 unit PO DAILY 04/21/20 04/21/20 [Vitamin D3] famotidine 40 mg PO DAILY 04/21/20 04/21/20 famotidine 40 mg PO HS 04/21/20 04/21/20 hydroxyzine pamoate 25 mg PO TID 04/21/20 04/21/20 ibuprofen 200 mg PO PRN PRN 04/21/20 04/21/20 lisinopril 2.5 mg PO DAILY 04/21/20 04/21/20 Previous Rx's Medication Instructions Recorded alum-mag hydroxide-simeth [Mag-Al 30 ml PO Q2H PRN PRN #0 ml 12/05/18 Plus] calcium carbonate 500 mg PO TID PRN PRN #0 tab 12/05/18 Eliquis 5 mg PO BID #60 tab 01/23/19 cyanocobalamin (vitamin B-12) 1,000 mcg PO DAILY #60 tab 01/23/19 [Vitamin B-12] docusate sodium [Colace] 100 mg PO DAILY #30 cap 01/23/19 folic acid 1 mg PO DAILY #30 tab 01/23/19 magnesium chloride [Mag 64] 64 mg PO BID #30 tab 01/23/19 multivitamin [Multiple Vitamins] 1 tab PO DAILY #30 tab 01/23/19 pantoprazole 40 mg PO BID@0730,2000 #30 tab 01/23/19 albuterol sulfate [Ventolin HFA] 2 puff INHALATION Q4H PRN PRN #18 02/07/20 gm NS ascorbic acid (vitamin C) [Vitamin 500 mg PO DAILY #30 tab 02/07/20 C] polyethylene glycol 3350 [Miralax] 17 gm PO DAILY #510 gm 02/07/20 Allergies Allergy/AdvReac Type Severity Reaction Status Date / Time No Known Allergies Allergy Unverified 04/21/20 17:15 General Stated Complaint: Urinary KENYON: 3 Review of Systems All systems reviewed & are unremarkable except as noted in HPI and below Constitutional Constitutional: Reports as per HPI, Denies chills and Reports fever(s) Eyes Eyes: Denies blurry vision ENT Ears, Nose, Mouth, and Throat: Denies dizziness, Denies sore throat and Denies throat swelling Cardiovascular Cardiovascular: Denies chest pain and Denies dyspnea Respiratory Respiratory: Denies cough and Denies dyspnea Gastrointestinal Gastrointestinal: Denies abdominal pain, Denies diarrhea and Denies vomiting Genitourinary Genitourinary: Denies hematuria, Reports dysuria, Reports urinary urgency and Reports other (Urinary retention) Musculoskeletal Musculoskeletal: Denies back pain and Denies numbness Integumentary/Breasts Skin/Breast: Denies lesions and Denies rash Neurologic Neurologic: Denies dizziness, Denies localized weakness and Denies numbness Allergic/Immunologic Allergic/Immunologic: Denies throat swelling [facility] Medical History (Updated 04/21/20 @ 19:59 by Mary Candelario DO) Acute thrombosis of right basilic vein (Inactive) Complication associated with peripherally inserted central catheter (PICC) (Inactive) Constipation, chronic (Chronic) COPD (chronic obstructive pulmonary disease) (Chronic) Diabetes mellitus (Chronic) GERD (gastroesophageal reflux disease) (Chronic) H/O schizophrenia (Acute) H/O: CVA (cerebrovascular accident) (Acute) Hypertension (Chronic) Non-insulin dependent type 2 diabetes mellitus (Chronic) Oropharyngeal dysphagia (Acute) Pulmonary emboli (Inactive) Schizo affective schizophrenia (Chronic) Social History Smoking/Tobacco Use Status: Former Tobacco Use Tobacco: How many years used: 43 Alcohol Intake: former Drug use: Occasionally Substance use type: marijuana Do you feel safe at home: Yes Do you feel safe in your relationship?: Yes Exam Const General: cooperative, no acute distress and ill appearing chronically Orientation: alert, awake and oriented x3 HENMT Head: normal to inspection Face and sinus: normal facial exam Eyes General: appearance normal, both eyes and all related structures EOM: EOM intact bilaterally Neck Neck: normal visual inspection and No submandibular swelling Lymphatic: no lymphadenopathy noted Chest Chest: normal inspection of the chest and no tenderness Resp Effort & Inspection: normal respiratory effort and able to speak in complete sentences Auscultation: clear to auscultation bilaterally Cardio Rate: regular rate Rhythm: regular rhythm GI Inspection: normal to inspection Palpation: soft, not firm, not rigid and nontender Auscultation: normal bowel sounds Rectal Exam: heme negative stool and other (Erythematous scaling macules/patches noted around gluteal crease) Other: No sacral ulcers, induration, fluctuance noted. Male General Exam: Yes normal external exam Scrotum: scrotum normal Back/Spine/Pelvis Thoracic/Lumbar Spine: thoracic and lumbar spine normal to inspection Skin General skin exam: no rashes or lesions noted Neuro General: patient alert, patient awake and patient oriented x3 Cognition: normal cognition Speech: speech normal Motor: muscle tone normal throughout Sensory Exam: no sensory deficits noted Extrem General: normal to inspection, full ROM, capillary refill normal, no calf tenderness bilaterally and no edema Psych Appearance: grossly normal Mental Status: mental status grossly normal Speech and Movement: speech and movement normal Affect: normal affect Course Vital Signs Vital signs: Vital Signs Temperature 98.4 F 04/21/20 17:11 Pulse 99 H 04/21/20 17:11 Respiratory Rate 16 04/21/20 17:11 Blood Pressure 101/63 04/21/20 17:11 Pulse Oximetry 96 04/21/20 17:11 Temperature 98.4 F 04/21/20 17:11 Temperature Source Skin 04/21/20 17:11 Pulse 99 H 04/21/20 17:11 Respiratory Rate 16 04/21/20 17:11 Blood Pressure 101/63 04/21/20 17:11 Blood Pressure Position Sitting 04/21/20 17:11 Pulse Oximetry 96 04/21/20 17:11 Oxygen Delivery Method Room Air 04/21/20 17:11 Oxygen Flow Rate 0 04/21/20 17:11 Pain Level 0 04/21/20 17:11
--- NOTE | 2020-04-21 17:30 | RT.EKG_ITS ---
APPROVED REPORT Exam: Resting ECG Patient Location: E HR:93 bpm ECG Measurements Heart Rate 93 AXIS TN 143 P 69 QRSd 94 QRS -39 QT 366 T 64 QTc 456 <Conclusion> Sinus rhythm...normal P axis, V-rate 60- 99 Probable left atrial enlargement...P >50mS, <-0.10mV V1 Left axis deviation...QRS axis (-30,-90)
[2020-04-21 17:41] LABS: Bilirubin Small (Negative); Blood Large (Negative); Glucose Negative (Negative); Ketones 15 mg/dL (Negative); Leukocyte Esterase Small (Negative); Nitrite Negative (Negative); Specific Gravity >= 1.030 (1.005-1.025); Urobilinogen 0.2 EU/dL (Up TO 0.2); pH 5.5 (5-8)
[2020-04-21 17:42] LABS: Clarity Cloudy (Clear)
[2020-04-21 17:45] LABS: Lactate 1.7 mmol/L (0.6-1.4)
--- NOTE | 2020-04-21 17:45 | DI.CT_ITS ---
EXAM: CT HEAD WO CLINICAL HISTORY: dizziness, weakness. TECHNIQUE: Imaging Protocol: Axial computed tomography images with coronal and sagittal reformatted images were created and reviewed COMPARISON: No exams were available for comparison FINDINGS: Ventricles and Extra axial spaces: Normal in size and morphology for the patient's age. Hemorrhage: None. Cerebral parenchyma: Normal. Midline shift: None. Brainstem/Cerebellum: Normal. Calvarium: Normal. Visualized Paranasal sinuses/Mastoids: Clear. Soft Tissues: Unremarkable. IMPRESSION: No acute intracranial process. RADIATION DOSE DELIVERED: Total DLP DATA REPOSITORY: All CT scans at this facility are submitted to the National Radiology Data Registry (NRDR) Dose Index Registry (DIR) with the [employer] ([employer]). RADIATION OPTIMIZATION: All CT scans at this facility use at least one of these dose optimization te chniques: automated exposure control; mA and/or kV adjustment per patient size (includes targeted exa ms where dose is matched to clinical indication); or iterative reconstruction.
--- NOTE | 2020-04-21 17:45 | DI.CT_ITS ---
EXAM: CT CHEST/ABD/PEL W CLINICAL HISTORY: dizziness, weakness, urinary retention TECHNIQUE: Imaging Protocol: Axial computed tomography images with coronal and sagittal reformatted images were created and reviewed CONTRAST MATERIAL: Intravenous: Omnipaque 350 Contrast volume:100 mL Oral: No COMPARISON: CT UPPER ABD W/WO CONTRAST(P) from 07/31/2017 CT CHEST WITH CONTRAST from 07/31/[address] ABDOMEN PELVIS W from 01/22/[address] ABDOMEN PELVIS W from 01/22/[address] CHEST WO from 01/22/2020 FINDINGS: CHEST: Tracheobronchial tree: Patent where visualized. Mediastinum and Ying: No dominant adenopathy or fluid collection. Pulmonary parenchyma: Centrilobular emphysematous changes are present. Calcified granulomas are seen in the lungs. There has been near complete resolution of the right upper, middle and lower lobe inf iltrate seen on the examination from 01/22/2020. There are few linear densities present in the right lung which may represent residual infiltrate or scarring. A small infiltrate is seen in the inferior lingula which may represent atelectasis or pneumonia. Pleura: No effusion or pneumothorax. Heart: The heart is not dilated. Minimal coronary artery disease. No significant pericardial effusio n. Aorta: Thoracic aorta non-dilated. Atherosclerosis. Lymph nodes: Within normal limits. Bones:Degenerative changes. Soft tissues: Bilateral gynecomastia. ABDOMEN: Liver: Normal density. No measurable mass. Portal, Superior Mesenteric, and Splenic Veins: Unremarkable. Gallbladder and Biliary Tract: No radiodense calculus or dilation. Pancreas: Normal density. No inflammatory process. Stable calcifications in the pancreatic head. Spleen: Calcified granuloma. Adrenals: Stable bilateral adrenal nodules. Kidneys: Normal size, contour and axis. No radiodense stones or obstructive uropathy. Stable right re nal cysts. Abdominal Aorta: Abdominal portion non-dilated. Atherosclerosis. Bowel: No obstruction or bowel wall thickening. Appendix is unremarkable. Large amount of retained st ool consistent with constipation. Peritoneal Cavity: No ascites, collection or mesenteric inflammatory response. Lymph Nodes: Within normal limits. Bones: Degenerative changes. Soft Tissues: Unremarkable. PELVIS: Bladder: Thick-walled urinary bladder with bladder diverticula. Incomplete distension. Reproductive Organs: Enlarged prostate gland. Lymph Nodes: Within normal limits. Bones: Degenerative changes. IMPRESSION: 1. Large amount of stool throughout the colon consistent with constipation. 2. Thick-walled urinary bladder with bladder diverticula. Bladder is incompletely distended. Cystit is cannot be entirely excluded. Please correlate clinically. 3. Near complete resolution of the infiltrates in the right lung. 4. Small infiltrate in the left lingula. RADIATION DOSE DELIVERED: Total DLP DATA REPOSITORY: All CT scans at this facility are submitted to the National Radiology Data Registry (NRDR) Dose Index Registry (DIR) with the [employer] (ACR). RADIATION OPTIMIZATION: All CT scans at this facility use at least one of these dose optimization te chniques: automated exposure control; mA and/or kV adjustment per patient size (includes targeted exa ms where dose is matched to clinical indication); or iterative reconstruction.
[2020-04-21 17:52] LABS: Abs Immature Grans 0.31 k/cumm (0.0-0.09); HCT 35.6 % (40.0-50.0); Immature Grans % 0.8 %; Lymphocytes % 2.8; Mean Corp. HGB Concentration 33.7 g/dL (32.0-36.0); Mean Corpuscular Hemoglobin 29.6 pg (27.0-33.0); Mean Corpuscular Volume 87.9 fL (80-95); Mean Platelet Volume 10.1 fL (8.0-11.0); Monocytes % 11.1; Neutrophils % 85.3; Platelet Count 301 x1000/uL (130-400); RBC 4.05 m/cumm (4.50-6.00); RBC Distribution Width 15.6 % (11.8-14.1)
[2020-04-21 17:53] LABS: Absolute Lymphocyte Count 1.13 k/cumm (1.2-3.4); Absolute Neutrophil Count 34.56 k/cumm (1.2-6.7); White Blood Cell Count 40.52 k/cumm (4.4-10.8)
[2020-04-21 18:00] LABS: INR 1.2 (0.9-1.1); Prothrombin Time 11.6 sec (9.3-11.0)
[2020-04-21 18:04] LABS: Bacteria Moderate HPF (Negative); Epithelial Cells Few HPF (Negative); RBC 20-50 HPF (0-2)
[2020-04-21 18:05] LABS: C & S Indicated? Yes; Casts Negative LPF (Negative); Crystals Negative HPF (Negative); Mucus Negative (Negative)
[2020-04-21 18:06] LABS: ALT 15 U/L (16-63); AST 12 U/L (15-37); Albumin 3.4 g/dL (3.4-5.0); Alkaline Phosphatase 96 U/L (46-116); BUN 17 mg/dL (7-18); Bilirubin, Total 0.5 mg/dL (0.2-1.0); CREATININE 1.19 mg/dL (0.70-1.30); Calcium 8.9 mg/dL (8.5-10.1); Chloride 94 mmol/L (98-107); Glucose 183 mg/dL (74-106); Magnesium 1.5 mg/dL (1.8-2.4); Potassium 4.5 mmol/L (3.5-5.1); Sodium 131 mmol/L (136-145); Total Protein 7.1 g/dL (6.4-8.2)
[2020-04-21 18:08] LABS: Troponin I < 0.05 ng/mL (<0.06)
[2020-04-21 18:11] LABS: Diff Comment Agrees w/ Instrument; RBC Morphology Normal
[2020-04-21] MEDS: Normal Saline 1,000 ML 1000 ML IV (18:12)
[2020-04-21] MEDS: Normal Saline Flush 10 ML SYR IVP ×2 (18:12→22:55)
[2020-04-21 18:13] LABS: PTT Activated 52.9 sec (21.0-31.4)
[2020-04-21] MEDS: Omnipaque 350 MG/ML 100 ML BTL IJ (18:33)
--- NOTE | 2020-04-21 18:48 | DI.VRAD_ITS ---
PROCEDURE INFORMATION: Exam: CT Head Without Contrast Exam date and time: 04/21/2020 6:28 PM Age: 64 years old Clinical indication: Other: Weak, dizzy TECHNIQUE: Imaging protocol: Computed tomography of the head without contrast. COMPARISON: No relevant prior studies available. FINDINGS: Brain: Cerebral sulci show bilateral symmetry with no supratentorial mass or mass effect detected. Brainstem and cerebellum are normal in appearance. No significant foci of abnormal increased or decreased attenuation are seen within the brain parenchyma. There is no evidence of acute infarct or intracranial hemorrhage. Ventricles: Ventricular and cisternal spaces are normal in size and configuration and there is no midline shift or hydrocephalus seen. Bones/joints: Bony calvarium and skull base are intact and no acute fractures are detected. Sinuses: Paranasal sinuses are clear throughout and their bony margins are intact at the levels imaged. Mastoid air cells: Normally pneumatized and clear bilaterally. Soft tissues: Unremarkable. IMPRESSION: Unremarkable noncontrast head CT with no evidence of an acute intracranial process. Dictated and Authenticated by: Jim Worthy MD. Ordering:STU Hernandez MD
--- NOTE | 2020-04-21 19:30 | DI.VRAD_ITS ---
Addendum created by Jim Worthy MD on 04/21/2020 7:31:35 PM EDT THIS REPORT CONTAINS FINDINGS THAT MAY BE CRITICAL TO PATIENT CARE. The findings were verbally communicated via telephone conference with Mary Candelario at 7:31 PM EDT on 04/21/2020. The findings were acknowledged and understood. Initial report created on 04/21/2020 7:30:51 PM EDT PROCEDURE INFORMATION: Exam: CT Chest With Contrast Exam date and time: 04/21/2020 6:32 PM Age: 64 years old Clinical indication: Other: Dizzy, weakness, urinary retention TECHNIQUE: Imaging protocol: Computed tomography of the chest with intravenous contrast. COMPARISON: CT ABDOMEN PELVIS W 01/22/2020 2:42 PM and noncontrast chest CT from 22 January 2020. FINDINGS: Lungs: Patchy multinodular infiltrates were described in the right upper, middle and lower lobes on the comparison CT of the chest from 22 January 2020. These multifocal infiltrates have almost completely resolved with a few stranded linear postinflammatory densities now visible in these areas and no new consolidation or collapse detected. Minimal linear stranded densities along the inferior margin of the lingula could also represent chronic postinflammatory changes with remainder of the left lung grossly clear. Pleural space: No pneumothorax or pleural effusion seen. Heart: Heart size is normal and there is no pericardial effusion detected Aorta: No evidence of thoracic aortic aneurysm or dissection. Lymph nodes: No mediastinal or hilar mass or adenopathy seen. Bones/joints: No acute osseous lesions are detected at thoracic levels. Soft tissues: Right-sided gynecomastia is again evident.. IMPRESSION: 1. Interval clearing of the multifocal infiltrates seen throughout the right lung on the comparison study with no new consolidation or collapse detected. 2. No other evidence of an acute cardiopulmonary process. PROCEDURE INFORMATION: Exam: CT Abdomen And Pelvis With Contrast Exam date and time: 04/21/2020 6:32 PM Age: 64 years old Clinical indication: Other: Dizzy, weakness, urinary retention TECHNIQUE: Imaging protocol: Computed tomography of the abdomen and pelvis with intravenous contrast. COMPARISON: CT ABDOMEN PELVIS W 01/22/2020 2:42 PM FINDINGS: Liver: Jose's lobe incidentally noted with no focal hepatic lesions detected. Gallbladder and bile ducts: Unrtemarkable with no calcified stone or ductal dilatation detected. Pancreas: A few tiny punctate calcifications in the region of the pancreatic head could relate to remote pancreatitis and no pancreatic mass or ductal dilation is detected. Spleen: Few tiny punctate calcified granulomas are again seen throughout the splenic parenchyma and there is no splenomegaly or splenic mass. Adrenals: Probable bilateral adrenal hyperplasia is unchanged in appearance. Kidneys and ureters: Bilateral excretion of contrast material with no hydronephrosis seen. A discrete 3.6 cm exophytic fluid attenuation cyst seen along the posterior margin of the lower pole of the right kidney requires no further follow-up. Stomach and bowel: Large amounts of stool are seen throughout moderately dilated segments of colon. Mildly dilated segments of fluid fill small bowel seen in the central abdomen inferiorly with multiple air-fluid levels on the prior study have resolved and there is mild dilatation of a few fluid-filled small bowel segments seen in the right lower quadrant without pathologic dilatation. No pneumatosis detected involving segments of large or small bowel. Multiple ellipsoidal densities consistent with ingested medication are seen throughout colonic segments. Appendix: No evidence of appendicitis. Intraperitoneal space: No pneumoperitoneum or free intraperitoneal fluid detected. Vasculature: No abdominal aortic aneurysm Lymph nodes: No lymphadenopathy detected. Bladder: The bladder is incompletely distended but shows lobular irregular wall thickening and mucosal enhancement throughout its margins. Reproductive: Unremarkable as visualized. Bones/joints: No new osseous lesions are detected. Soft tissues: Unremarkable. IMPRESSION: 1. Large amounts of stool again seen throughout all colonic segments and the rectum suggesting constipation. No mechanical obstruction or evidence of perforation is detected. 2. Lobular and irregular thickening of the wall urinary bladder with mucosal enhancement is identified and raises the possibility of cystitis. Please correlate with clinical data. Dictated and Authenticated by: Jim Worthy MD. Ordering:STU Hernandez MD
--- NOTE | 2020-04-21 19:32 | NUR.NOTE ---
Nursing Note: Water, sandwich, and pudding provided to patient. Patient sitting up on edge of bed.
[2020-04-21] MEDS: cefTRIAXone 1 GM/50 ML BAG IVPB (19:43)
--- NOTE | 2020-04-21 19:44 | NUR.NOTE ---
Nursing Note: Patient ate food with no difficulty. IV ABX infusing.
--- NOTE | 2020-04-21 20:11 | HPE_ITS ---
Date of service: 04/21/20 Time of Service: 20:11 Assessment and Plan Assessment and plan (1) UTI (urinary tract infection): Start date: 04/21/20 Status: Acute Assessment and plan: This is a 64-year-old gentleman with presentation of urinary symptoms with low-grade fever but markedly elevated WBC and slightly low blood pressure with borderline tachycardia treated with Rocephin as an outpatient after urine and blood culture obtained which will be continued during his hospital stay. He also appears to be slightly dehydrated will be given IV hydration. Qualifiers: Hematuria presence: without hematuria Urinary tract infection type: site unspecified Qualified Code(s): N39.0 - Urinary tract infection, site not specified (2) Sepsis syndrome: Start date: 04/21/20 Status: Acute Assessment and plan: Borderline symptoms of sepsis with the patient be given aggressive IV hydration and treatment of his UTI. (3) Acute dehydration: Start date: 04/21/20 Status: Acute Assessment and plan: Aggressive IV hydration and follow-up labs. Patient may have poor intake as an an outpatient. He is on multiple medications. His p sychological disease also tender proper diet and hydration. He was on iron which could cause constipation which is obvious on CT. (4) Leukocytosis: Status: Acute Assessment and plan: Severe leukocytosis and the patient has done this in the past when acutely ill. He also seems to resolve with treatment of his acute infection. This will be followed up. Consider hematology referral as an outpatient. Qualifiers: Leukocytosis type: bandemia Qualified Code(s): D72.825 - Bandemia History of Present Illness History of Present Illness Chief Complaint: Urinary retention with dysuria and a ssociated weakness and fever Narrative: This is a 64-year-old male patient with no history of urinary retention but having problems with urinating and dysuria the night prior to admission. He presented to his PCP who advised the ED for evaluation. He had a high fever to 100.4 prior to evaluation in the ED. In the ED he had no problems with urinary retention and was found to have an elevated WBC which had in the past when acutely ill. He had associated d izziness and weakness with his new symptoms but no abdominal pain or back pain. He denies any problem with his bowel movements though he is constipated by exam and imaging. He did have some mild abdominal distention. In the ED was evaluated and started on IV Rocephin with a mild sepsis syndrome and his markedly elevated WBC. At the time of the patient he was comfortable and slight wandering conversation with a history of schizophrenia. He also has a history of repeated CVA. He had no apparent focal neurologic complaints other than his speech which may be more from his psychological status. He is a slightly vague historian. Review of Systems Narrative: 13 point review systems otherwise unrevealing or unobtainable with the patient being a poor historian. FOR[facility]LY [facility], LATER [facility] Medical History Acute thrombosis of right basilic vein (Inactive) Complication associated with peripherally inserted central catheter (PICC) (Inactive) Constipation, chronic (Chronic) COPD (chronic obstructive pulmonary disease) (Chronic) Diabetes mellitus (Chronic) GERD (gastroesophageal reflux disease) (Chronic) H/O schizophrenia (Acute) H/O: CVA (cerebrovascular accident) (Acute) Hypertension (Chronic) Non-insulin dependent type 2 diabetes mellitus (Chronic) Oropharyngeal dysphagia (Acute) Pulmonary emboli (Inactive) Schizo affective schizophrenia (Chronic) Family History Mother No problems noted. Social History Smoking/Tobacco Use Status: Former Tobacco Use Tobacco: How many years used: 43 Alcohol Intake: former Drug use: Occasionally Substance use type: marijuana Do you feel safe at home: Yes Do you feel safe in your relationship?: Yes Meds Home Medications and Allergies Home Medications Medication Instructions Recorded Confirmed Type Flovent HFA 2 puff INHALATION BID 06/18/17 04/21/20 History acetaminophen [Mapap Extra 1,000 mg PO .Q8HRS 06/18/17 04/21/20 History Strength] clozapine [Clozaril] 200 - 375 mg PO DIRECTED 06/18/17 04/21/20 History ziprasidone HCl [Geodon] 80 - 160 mg PO DIRECTED 06/18/17 04/21/20 History alum-mag hydroxide-simeth [Mag-Al 30 ml PO Q2H PRN PRN #0 ml 12/05/18 01/30/20 Rx Plus] calcium carbonate 500 mg PO TID PRN PRN #0 tab 12/05/18 04/21/20 Rx Eliquis 5 mg PO BID #60 tab 01/23/19 04/21/20 Rx cyanocobalamin (vitamin B-12) 1,000 mcg PO DAILY #60 tab 01/23/19 04/21/20 Rx [Vitamin B-12] docusate sodium [Colace] 100 mg PO DAILY #30 cap 01/23/19 04/21/20 Rx folic acid 1 mg PO DAILY #30 tab 01/23/19 04/21/20 Rx magnesium chloride [Mag 64] 64 mg PO BID #30 tab 01/23/19 04/21/20 Rx multivitamin [Multiple Vitamins] 1 tab PO DAILY #30 tab 01/23/19 04/21/20 Rx pantoprazole 40 mg PO BID@0730,1999 #30 tab 01/23/19 04/21/20 Rx bupropion HCl 300 mg 24 hr tablet, 300 mg PO QAM 08/14/19 04/21/20 History extended release ferrous gluconate 324 mg (38 mg 324 mg PO DAILY 08/14/19 04/21/20 History iron) tablet pioglitazone 30 mg tablet 30 mg PO DAILY 08/14/19 04/21/20 History simvastatin 20 mg tablet 20 mg PO QHS 08/14/19 04/21/20 History umeclidinium 62.5 mcg-vilanterol 1 inh IH DAILY 08/14/19 04/21/20 History 25 mcg/actuation powdr for inhalation metformin 1,000 - 1,500 mg PO DIRECTED 12/24/19 04/21/20 History albuterol sulfate [Ventolin HFA] 2 puff INHALATION Q4H PRN PRN #18 02/07/20 04/21/20 Rx gm NS ascorbic acid (vitamin C) [Vitamin 500 mg PO DAILY #30 tab 02/07/20 04/21/20 Rx C] polyethylene glycol 3350 [Miralax] 17 gm PO DAILY #510 gm 02/07/20 04/21/20 Rx acetaminophen [Tylenol Arthritis 650 mg PO BID PRN 04/21/20 04/21/20 History Pain] acetaminophen [Tylenol Extra 1,000 mg PO Q8H PRN 04/21/20 04/21/20 History Strength] cholecalciferol (vitamin D3) 1,000 unit PO DAILY 04/21/20 04/21/20 History [Vitamin D3] famotidine 40 mg PO DAILY 04/21/20 04/21/20 History famotidine 40 mg PO HS 04/21/20 04/21/20 History hydroxyzine pamoate 25 mg PO TID 04/21/20 04/21/20 History ibuprofen 200 mg PO PRN PRN 04/21/20 04/21/20 History lisinopril 2.5 mg PO DAILY 04/21/20 04/21/20 History Allergies Allergy/AdvReac Type Severity Reaction Status Date / Time No Known Allergies Allergy Unverified 04/21/20 17:15 Exam Narrative Exam Narrative: General: Patient appears appropriate for age, thin with prominent abdominal distention and alert and oriented x3 and in no acute distress but slightly anxious with pressured speech. HEENT: Normocephalic, eyes with pupils equal and reactive light symmetrically, extraocular movement intact and sclera anicteric. Oropharynx with moist mucosa orientation. External ears normal. Neck: Supple without JVD. Back: Slightly stooped posture with no CVA tenderness. Lungs: Fair aeration and clear to auscultation and percussion. Heart: Regular rate and rhythm with 2/6 holosystolic murmur apex. No rub or gallop. Abdomen: Protuberant and obese contour, soft with no focalizing tenderness and no palpable hepatosplenomegaly. Bowel sounds are decreased in all quadrants. Patient complained about pain in the ED and had a normal CT scan and external exam. CT scan did show constipation. Genitalia/rectal: Exam deferred with CT performing. Extremities: Without clubbing, cyanosis or pitting edema. Skin: Pale, decreased turgor, warm and dry. No rashes. Neuro: Cranial nerves II to XII gross intact, no focal motor deficits. Psych: Slight hesitant speech flattened affect but good eye contact. Slightly anxious but no depressed mood. Remote and recent memory grossly intact though the patient has some problem with recent history. Results Imaging Imaging Studies: Exam: CT Chest With Contrast Exam date and time: 04/21/2020 6:32 PM Age: 64 years old Clinical indication: Other: Dizzy, weakness, urinary retention TECHNIQUE: Imaging protocol: Computed tomography of the chest with intravenous contrast. COMPARISON: CT ABDOMEN PELVIS W 01/22/2020 2:42 PM and noncontrast chest CT from 22 January 2020. FINDINGS: Lungs: Patchy multinodular infiltrates were described in the right upper, middle and lower lobes on the comparison CT of the chest from 22 January 2020. These multifocal infiltrates have almost completely resolved with a few stranded linear postinflammatory densities now visible in these areas and no new consolidation or collapse detected. Minimal linear stranded densities along the inferior margin of the lingula could also represent chronic postinflammatory changes with remainder of the left lung grossly clear. Pleural space: No pneumothorax or pleural effusion seen. Heart: Heart size is normal and there is no pericardial effusion detected Aorta: No evidence of thoracic aortic aneurysm or dissection. Lymph nodes: No mediastinal or hilar mass or adenopathy seen. Bones/joints: No acute osseous lesions are detected at thoracic levels. Soft tissues: Right-sided gynecomastia is again evident.. IMPRESSION: 1. Interval clearing of the multifocal infiltrates seen throughout the right lung on the comparison study with no new consolidation or collapse detected. 2. No other evidence of an acute cardiopulmonary process. PROCEDURE INFORMATION: Exam: CT Abdomen And Pelvis With Contrast Exam date and time: 04/21/2020 6:32 PM Age: 64 years old Clinical indication: Other: Dizzy, weakness, urinary retention TECHNIQUE: Imaging protocol: Computed tomography of the abdomen and pelvis with intravenous contrast. COMPARISON: CT ABDOMEN PELVIS W 01/22/2020 2:42 PM FINDINGS: Liver: Jose's lobe incidentally noted with no focal hepatic lesions detected. Gallbladder and bile ducts: Unrtemarkable with no calcified stone or ductal dilatation detected. Pancreas: A few tiny punctate calcifications in the region of the pancreatic head could relate to remote pancreatitis and no pancreatic mass or ductal dilation is detected. Spleen: Few tiny punctate calcified granulomas are again seen throughout the splenic parenchyma and there is no splenomegaly or splenic mass. Adrenals: Probable bilateral adrenal hyperplasia is unchanged in appearance. Kidneys and ureters: Bilateral excretion of contrast material with no hydronephrosis seen. A discrete 3.6 cm exophytic fluid attenuation cyst seen along the posterior margin of the lower pole of the right kidney requires no further follow-up. Stomach and bowel: Large amounts of stool are seen throughout moderately dilated segments of colon. Mildly dilated segments of fluid fill small bowel seen in the central abdomen inferiorly with multiple air-fluid levels on the prior study have resolved and there is mild dilatation of a few fluid-filled small bowel segments seen in the right lower quadrant without pathologic dilatation. No pneumatosis detected involving segments of large or small bowel. Multiple ellipsoidal densities consistent with ingested medication are seen throughout colonic segments. Appendix: No evidence of appendicitis. Intraperitoneal space: No pneumoperitoneum or free intraperitoneal fluid detected. Vasculature: No abdominal aortic aneurysm Lymph nodes: No lymphadenopathy detected. Bladder: The bladder is incompletely distended but shows lobular irregular wall thickening and mucosal enhancement throughout its margins. Reproductive: Unremarkable as visualized. Bones/joints: No new osseous lesions are detected. Soft tissues: Unremarkable. IMPRESSION: 1. Large amounts of stool again seen throughout all colonic segments and the rectum suggesting constipation. No mechanical obstruction or evidence of perforation is detected. 2. Lobular and irregular thickening of the wall urinary bladder with mucosal enhancement is identified and raises the possibility of cystitis. Please correlate with clinical data. Dictated and Authenticated by: Jim Worthy MD. Exam: CT Head Without Contrast Exam date and time: 04/21/2020 6:28 PM Age: 64 years old Clinical indication: Other: Weak, dizzy TECHNIQUE: Imaging protocol: Computed tomography of the head without contrast. COMPARISON: No relevant prior studies available. FINDINGS: Brain: Cerebral sulci show bilateral symmetry with no supratentorial mass or mass effect detected. Brainstem and cerebellum are normal in appearance. No significant foci of abnormal increased or decreased attenuation are seen within the brain parenchyma. There is no evidence of acute infarct or intracranial hemorrhage. Ventricles: Ventricular and cisternal spaces are normal in size and configuration and there is no midline shift or hydrocephalus seen. Bones/joints: Bony calvarium and skull base are intact and no acute fractures are detected. Sinuses: Paranasal sinuses are clear throughout and their bony margins are intact at the levels imaged. Mastoid air cells: Normally pneumatized and clear bilaterally. Soft tissues: Unremarkable. IMPRESSION: Unremarkable noncontrast head CT with no evidence of an acute intracranial process. Dictated and Authenticated by: Jim Worthy MD. Labs Result diagrams: 04/21/20 17:40 04/21/20 17:40 Labs: Laboratory Results - last 24 hr 04/21/20 04/21/20 04/21/20 17:24 17:40 17:40 WBC RBC Hgb Hct MCV MCH MCHC RDW Plt Count MPV Immature Gran % Neutrophils % Lymphocytes % Monocytes % Eosinophils % Basophils % Absolute Neutrophils Absolute Lymphocytes Absolute Monocytes Absolute Eosinophils Absolute Basophils Differential Comment RBC Morphology PT INR APTT Sodium 131 L Potassium 4.5 Chloride 94 L Carbon Dioxide 23.0 Anion Gap 14.0 H BUN 17 Creatinine 1.19 Estimated GFR/1.73 m2 >= 60.00 Glucose 183 H Lactate 1.7 H Calcium 8.9 Magnesium 1.5 L Total Bilirubin 0.5 AST 12 L ALT 15 L Alkaline Phosphatase 96 Troponin I < 0.05 Total Protein 7.1 Albumin 3.4 Urine Color Vandana Urine Clarity Cloudy Urine pH 5.5 Ur Specific [facility] >= 1.030 H Urine Protein 100 H Urine Ketones 15 H Urine Blood Large H Urine Nitrite Negative Urine Bilirubin Small H Urine Urobilinogen 0.2 Ur Leukocyte Esterase Small H Urine RBC 20-50 H Urine WBC 5-10 Ur Epithelial Cells Few Urine Crystals Negative Urine Bacteria Moderate Urine Casts Negative Urine Mucus Negative Ur Culture Indicated? Yes Urine Glucose Negative 04/21/20 04/21/20 17:40 17:40 WBC 40.52 H* RBC 4.05 L Hgb 12.0 L Hct 35.6 L MCV 87.9 MCH 29.6 MCHC 33.7 RDW 15.6 H Plt Count 301 MPV 10.1 Immature Gran % 0.8 Neutrophils % 85.3 Lymphocytes % 2.8 Monocytes % 11.1 Eosinophils % 0.0 Basophils % 0.0 Absolute Neutrophils 34.56 H Absolute Lymphocytes 1.13 L Absolute Monocytes 4.50 H Absolute Eosinophils 0.00 Absolute Basophils 0.00 Differential Comment Agrees w/ instrument RBC Morphology Normal PT 11.6 H INR 1.2 H APTT 52.9 H Sodium Potassium Chloride Carbon Dioxide Anion Gap BUN Creatinine Estimated GFR/1.73 m2 Glucose Lactate Calcium Magnesium Total Bilirubin AST ALT Alkaline Phosphatase Troponin I Total Protein Albumin Urine Color Urine Clarity Urine pH Ur Specific [facility] Urine Protein Urine Ketones Urine Blood Urine Nitrite Urine Bilirubin Urine Urobilinogen Ur Leukocyte Esterase Urine RBC Urine WBC Ur Epithelial Cells Urine Crystals Urine Bacteria Urine Casts Urine Mucus Ur Culture Indicated? Urine Glucose Last Vital Signs Temp 36.9 C 04/21/20 17:11 Pulse 99 H 04/21/20 19:18 Resp 16 04/21/20 17:11 BP 117/58 L 04/21/20 19:18 Pulse Ox 96 04/21/20 19:18 COVID-19 Screening Have you,or household,traveled outside [place] in last 14 days?: No Had IN PERSON contact w/suspected or confirmed C-19 person: No
[2020-04-21] MEDS: MAGNESIUM SULFATE 1 GM/100 ML BAG IVPB (20:23)
[2020-04-21] MEDS: Normal Saline 1,000 ML 150 ML IV (22:55)
[2020-04-22] VITALS (10 sets, daily range): BP systolic 100–116; BP diastolic 62–73; PULSE 79–95; RESP 18–20; TEMP 36.3–37.4; O2SAT 93–96
[2020-04-22] MEDS: Simvastatin 20 MG TAB PO ×2 (00:15→21:51)
[2020-04-22] MEDS: Normal Saline 1,000 ML 150 ML IV ×3 (05:12→19:50)
[2020-04-22 05:59] LABS: HCT 34.3 % (40.0-50.0); HGB 11.2 g/dL (13.5-17.5); Mean Corp. HGB Concentration 32.7 g/dL (32.0-36.0); Mean Corpuscular Hemoglobin 28.8 pg (27.0-33.0); Mean Corpuscular Volume 88.2 fL (80-95); Platelet Count 282 x1000/uL (130-400); RBC 3.89 m/cumm (4.50-6.00)
[2020-04-22 06:11] LABS: White Blood Cell Count 32.66 k/cumm (4.4-10.8)
[2020-04-22 06:16] LABS: Magnesium 1.9 mg/dL (1.8-2.4)
[2020-04-22 06:18] LABS: ALT 17 U/L (16-63); AST 17 U/L (15-37); Albumin 2.8 g/dL (3.4-5.0); Alkaline Phosphatase 91 U/L (46-116); Anion Gap 6.7 mmol/L (3-11); BUN 11 mg/dL (7-18); Bilirubin, Total 0.3 mg/dL (0.2-1.0); CO2 27.3 mmol/L (21.0-32.0); CREATININE 0.92 mg/dL (0.70-1.30); Calcium 8.7 mg/dL (8.5-10.1); Chloride 102 mmol/L (98-107); Glucose 140 mg/dL (74-106); Potassium 4.3 mmol/L (3.5-5.1); Sodium 136 mmol/L (136-145); Total Protein 6.2 g/dL (6.4-8.2)
--- NOTE | 2020-04-22 08:23 | PDOC.CMIN ---
- If Service Date Differs Date of service: 04/22/20 Time of Service: 08:23 Care Management Initial Assess REASON FOR HOSPITALIZATION:: Uti PAST MEDICAL HISTORY/PAST SURGICAL HISTORY:: Medical History . Acute thrombosis of right basilic vein (Inactive). Complication associated with peripherally inserted central catheter (PICC) (Inactive). Constipation, chronic (Chronic). COPD (chronic obstructive pulmonary disease) (Chronic). Diabetes mellitus (Chronic). GERD (gastroesophageal reflux disease) (Chronic). H/O schizophrenia (Acute). H/O: CVA (cerebrovascular accident) (Acute). Hypertension (Chronic). Non-insulin dependent type 2 diabetes mellitus (Chronic). Oropharyngeal dysphagia (Acute). Pulmonary emboli (Inactive). Schizo affective schizophrenia (Chronic) PREVIOUS FUNCTIONAL STATUS/SOCIAL/FAMILY SUPPORTS:: Elias resides at [facility]. His mental health services are managed by [facility] and the [employer] program. He is independent with some ADL?s and does not use ambulatory aids. Elias is dependent on [facility] for medication management, transportation, and meals. CURRENT FUNCTIONAL STATUS:: Elisa was dozing in bed when CM met with him. He stated that he was feeling a bit better but is very tired. He was disinclined to converse at this time. Elias's vital signs are stable, however his WBC is significantly elevated at 32.66. Urine culture is growing gram negative rods. ADVANCE DIRECTIVES:: On file at [facility]. Sarai CONNELL Has patient been provided with info about the portal/API?: No Did the patient sign up for the portal?: No CODE STATUS:: DNR/DNI INSURANCE COVERAGE / FINANCIAL ISSUES:: Medicare. Medicaid CURRENT HOME/COMMUNITY SERVICES/EQUIPMENT:: [facility], [employer], [facility], [facility] PRIMARY CARE PHYSICIAN:: Vinnie Black POTENTIAL DISCHARGE NEEDS:: Follow up with PCP and discharge plan of care PATIENT/FAMILY EDUCATION NEEDS:: Discharge plan, limitations, follow up plan, Ask Me Three TRANSPORTATION:: via [facility] coordinated by CM PLAN:: Elias will likely return to [facility] where he resides when medically cleared. He will folllow up with his PCP and discharge plan od care. CM will continue to support Elias and assess for discharge planning needs.
[2020-04-22] MEDS: Lisinopril 5 MG TAB 2.5 MG PO (08:56)
[2020-04-22] MEDS: buPROPion-XL 150 MG TABCR 300 MG PO (08:56)
[2020-04-22] MEDS: Pantoprazole 40 MG TABCR PO ×2 (08:57→19:57)
[2020-04-22] MEDS: Apixaban 5 MG TAB PO ×2 (08:57→19:57)
[2020-04-22] MEDS: Magnesium Oxide 400 MG TAB PO ×2 (08:57→19:57)
[2020-04-22 09:06] LABS: Lactate 1.1 mmol/L (0.6-1.4)
[2020-04-22 09:20] LABS: Procalcitonin 0.4 ng/mL
[2020-04-22] MEDS: Insulin Aspart 300 UNITS/3 ML PEN SC ×3 (09:41→17:15)
[2020-04-22] MEDS: Fluticasone NASAL SPRAY 16 GM BTL NS ×2 (09:41→19:56)
[2020-04-22] MEDS: Polyethylene Glycol 3350 17 GM PACKET PO ×2 (10:07→19:57)
--- NOTE | 2020-04-22 10:27 | W.PM.PROGNOT ---
Date of Service Date of service: 04/22/20 Time of Service: 10:27 Assessment and Plan Assessment and plan (1) UTI (urinary tract infection): Start date: 04/22/20 Start time: 10:33 Status: Acute Assessment and plan: Urine culture growing gram negative, continue ceftriaxone Blood cultures pending Lactate normalized. WBC down to 32.66 Will do PVR and give bowel regimen for constipation Qualifiers: Urinary tract infection type: site unspecified Hematuria presence: without hematuria Qualified Code(s): N39.0 - Urinary tract infection, site not specified (2) Sepsis syndrome: Start date: 04/22/20 Start time: 10:35 Status: Acute Assessment and plan: Borderline symptoms of sepsis with the patient be given aggressive IV hydration and treatment of his UTI. Lactate elevated at 1.7, normalized today. Will continue IVF overnight due to dizziness. (3) Acute dehydration: Start date: 04/22/20 Start time: 10:36 Status: Acute Assessment and plan: Continue IVF overnight and reevaluate in am (4) Leukocytosis: Start date: 04/22/20 Start time: 10:36 Status: Acute Assessment and plan: Severe leukocytosis and the patient has done this in the past when acutely ill. He also seems to resolve with treatment of his acute infection. This will be followed up. Consider hematology referral as an outpatient. Qualifiers: Leukocytosis type: bandemia Qualified Code(s): D72.825 - Bandemia (5) COPD (chronic obstructive pulmonary disease): Start date: 04/22/20 Start time: 10:37 Status: Chronic Assessment and plan: Not exacerbated at this time, continue monitoring. (6) Schizo affective schizophrenia: Start date: 04/22/20 Start time: 10:38 Status: Chronic Assessment and plan: Well controlled with medications, continue medication (7) Non-insulin dependent type 2 diabetes mellitus: Start date: 04/22/20 Start time: 10:41 Status: Chronic Assessment and plan: controlled with metformin at home. Will hold and place on SSI while in the hospital. (8) DVT prophylaxis: Start date: 04/22/20 Start time: 10:41 Status: Acute Assessment and plan: On apixaban for history of PE. Jayden continue apixaban dosing. (9) Discharge planning issues: Start date: 04/22/20 Start time: 10:38 Status: Acute Assessment and plan: Will return to house when medically ready above case discussed with Dr. Matos who is in agreement. Subjective Subjective Patient reports: other Interval history since last seen: no c/o pain, c/o dizziness. CT in ED negative. He states dizziness while both lying down and standing. Will have PT evaluate. He denies CP, SOB, NVD Exam Narrative Exam Narrative: General: Patient appears appropriate for age, thin with prominent abdominal distention and alert and oriented x3 lying in bed, c/o dizziness HEENT: Normocephalic, eyes with pupils equal and reactive light symmetrically, extraocular movement intact and sclera anicteric. Oropharynx with moist mucosa orientation. External ears normal. Neck: Supple without JVD. Lungs: Fair aeration and clear to auscultation and percussion. Heart: Regular rate and rhythm with 2/6 holosystolic murmur apex. No rub or gallop. Abdomen: Protuberant and obese contour, soft with no focalizing tenderness and no palpable hepatosplenomegaly. Bowel sounds are decreased in all quadrants. Patient complained about pain in the ED and had a normal CT scan and external exam. CT scan did show constipation. Extremities: Without clubbing, cyanosis or pitting edema. Skin: Pale, decreased turgor, warm and dry. No rashes. Neuro: Cranial nerves II to XII gross intact, no focal motor deficits. Psych: flattened affect but good eye contact. Remote and recent memory grossly intact though the patient has some problem with recent history. Objective Objective Clinical Data: Abnormal lab results 04/21/20 04/21/20 04/21/20 Range/Units 17:24 17:40 17:40 WBC (4.4-10.8) k/cumm RBC (4.50-6.00) m/cumm Hgb (13.5-17.5) g/dL Hct (40.0-50.0) % RDW (11.8-14.1) % Absolute Neutrophils (1.2-6.7) k/cumm Absolute Lymphocytes (1.2-3.4) k/cumm Absolute Monocytes (0.11-0.7) k/cumm PT (9.3-11.0) sec INR (0.9-1.1) APTT (21.0-31.4) sec Sodium 131 L (136-145) mmol/L Chloride 94 L (98-107) mmol/L Anion Gap 14.0 H (3-11) mmol/L Glucose 183 H (74-106) mg/dL Lactate 1.7 H (0.6-1.4) mmol/L Magnesium 1.5 L (1.8-2.4) mg/dL AST 12 L (15-37) U/L ALT 15 L (16-63) U/L Total Protein (6.4-8.2) g/dL Albumin (3.4-5.0) g/dL Ur Specific [place] >= 1.030 H (1.005-1.025) Urine Protein 100 H (Negative) mg/dL Urine Ketones 15 H (Negative) mg/dL Urine Blood Large H (Negative) Urine Bilirubin Small H (Negative) Ur Leukocyte Esterase Small H (Negative) Urine RBC 20-50 H (0-2) HPF 04/21/20 04/21/20 04/22/20 Range/Units 17:40 17:40 05:30 WBC 40.52 H* (4.4-10.8) k/cumm RBC 4.05 L (4.50-6.00) m/cumm Hgb 12.0 L (13.5-17.5) g/dL Hct 35.6 L (40.0-50.0) % RDW 15.6 H (11.8-14.1) % Absolute Neutrophils 34.56 H (1.2-6.7) k/cumm Absolute Lymphocytes 1.13 L (1.2-3.4) k/cumm Absolute Monocytes 4.50 H (0.11-0.7) k/cumm PT 11.6 H (9.3-11.0) sec INR 1.2 H (0.9-1.1) APTT 52.9 H (21.0-31.4) sec Sodium (136-145) mmol/L Chloride (98-107) mmol/L Anion Gap (3-11) mmol/L Glucose 140 H (74-106) mg/dL Lactate (0.6-1.4) mmol/L Magnesium (1.8-2.4) mg/dL AST (15-37) U/L ALT (16-63) U/L Total Protein 6.2 L (6.4-8.2) g/dL Albumin 2.8 L (3.4-5.0) g/dL Ur Specific [place] (1.005-1.025) Urine Protein (Negative) mg/dL Urine Ketones (Negative) mg/dL Urine Blood (Negative) Urine Bilirubin (Negative) Ur Leukocyte Esterase (Negative) Urine RBC (0-2) HPF 04/22/20 Range/Units 05:30 WBC 32.66 H* (4.4-10.8) k/cumm RBC 3.89 L (4.50-6.00) m/cumm Hgb 11.2 L (13.5-17.5) g/dL Hct 34.3 L (40.0-50.0) % RDW 16.0 H (11.8-14.1) % Absolute Neutrophils (1.2-6.7) k/cumm Absolute Lymphocytes (1.2-3.4) k/cumm Absolute Monocytes (0.11-0.7) k/cumm PT (9.3-11.0) sec INR (0.9-1.1) APTT (21.0-31.4) sec Sodium (136-145) mmol/L Chloride (98-107) mmol/L Anion Gap (3-11) mmol/L Glucose (74-106) mg/dL Lactate (0.6-1.4) mmol/L Magnesium (1.8-2.4) mg/dL AST (15-37) U/L ALT (16-63) U/L Total Protein (6.4-8.2) g/dL Albumin (3.4-5.0) g/dL Ur Specific [place] (1.005-1.025) Urine Protein (Negative) mg/dL Urine Ketones (Negative) mg/dL Urine Blood (Negative) Urine Bilirubin (Negative) Ur Leukocyte Esterase (Negative) Urine RBC (0-2) HPF Vital Signs Temperature 37 C 04/22/20 09:37 Temperature Source Tympanic 04/22/20 09:37 Pulse 92 H 04/22/20 09:37 Pulse Rhythm Regular 04/21/20 22:30 Respiratory Rate 20 04/22/20 09:37 Respiratory Effort Non-Labored 04/21/20 22:30 Respiratory Depth Normal 04/21/20 22:30 Respiratory Pattern Normal 04/21/20 22:30 Blood Pressure 102/66 04/22/20 09:37 Blood Pressure Mean 80 04/21/20 21:46 Blood Pressure Position Sitting 04/21/20 17:11 Pulse Oximetry 93 L 04/22/20 09:37 Oxygen Delivery Method Room Air 04/22/20 09:37 Oxygen Flow Rate 0 04/22/20 09:37 Pain Level 3 04/22/20 09:37 Comment 04/21/20 22:30 Intake & Output 04/21/20 04/21/20 04/22/20 11:59 23:59 11:59 Intake Total 1160 / 1160 1142.5 / 1142.5 Output Total 550 / 550 Balance 610 / 610 1142.5 / 1142.5 Weight 65 kg 65 kg Intake: IV 1160 / 1160 942.5 / 942.5 Oral 200 / 200 Output: Urine 550 / 550 Laboratory Results WBC 32.66 k/cumm (4.4-10.8) H* 04/22/20 05:30 RBC 3.89 m/cumm (4.50-6.00) L 04/22/20 05:30 Hgb 11.2 g/dL (13.5-17.5) L 04/22/20 05:30 Hct 34.3 % (40.0-50.0) L 04/22/20 05:30 MCV 88.2 fL (80-95) 04/22/20 05:30 MCH 28.8 pg (27.0-33.0) 04/22/20 05:30 MCHC 32.7 g/dL (32.0-36.0) 04/22/20 05:30 RDW 16.0 % (11.8-14.1) H 04/22/20 05:30 Plt Count 282 x1000/uL (130-400) 04/22/20 05:30 MPV 10.0 fL (8.0-11.0) 04/22/20 05:30 Immature Gran % 0.8 % 04/21/20 17:40 Neutrophils % 85.3 04/21/20 17:40 Lymphocytes % 2.8 04/21/20 17:40 Monocytes % 11.1 04/21/20 17:40 Eosinophils % 0.0 04/21/20 17:40 Basophils % 0.0 04/21/20 17:40 Absolute Neutrophils 34.56 k/cumm (1.2-6.7) H 04/21/20 17:40 Absolute Lymphocytes 1.13 k/cumm (1.2-3.4) L 04/21/20 17:40 Absolute Monocytes 4.50 k/cumm (0.11-0.7) H 04/21/20 17:40 Absolute Eosinophils 0.00 k/cumm (0.0-0.7) 04/21/20 17:40 Absolute Basophils 0.00 k/cumm (0.0-0.2) 04/21/20 17:40 Differential Comment Agrees w/ instrument 04/21/20 17:40 RBC Morphology Normal 04/21/20 17:40 PT 11.6 sec (9.3-11.0) H 04/21/20 17:40 INR 1.2 (0.9-1.1) H 04/21/20 17:40 APTT 52.9 sec (21.0-31.4) H 04/21/20 17:40 Sodium 136 mmol/L (136-145) 04/22/20 05:30 Potassium 4.3 mmol/L (3.5-5.1) 04/22/20 05:30 Chloride 102 mmol/L (98-107) 04/22/20 05:30 Carbon Dioxide 27.3 mmol/L (21.0-32.0) 04/22/20 05:30 Anion Gap 6.7 mmol/L (3-11) 04/22/20 05:30 BUN 11 mg/dL (7-18) D 04/22/20 05:30 Creatinine 0.92 mg/dL (0.70-1.30) 04/22/20 05:30 Estimated GFR/1.73 m2 >= 60.00 (mL/min/1.73m2) 04/22/20 05:30 Glucose 140 mg/dL (74-106) H 04/22/20 05:30 Lactate 1.1 mmol/L (0.6-1.4) 04/22/20 08:50 Calcium 8.7 mg/dL (8.5-10.1) 04/22/20 05:30 Magnesium 1.9 mg/dL (1.8-2.4) 04/22/20 05:30 Total Bilirubin 0.3 mg/dL (0.2-1.0) 04/22/20 05:30 AST 17 U/L (15-37) 04/22/20 05:30 ALT 17 U/L (16-63) 04/22/20 05:30 Alkaline Phosphatase 91 U/L (46-116) 04/22/20 05:30 Troponin I < 0.05 ng/mL (<0.06) 04/21/20 17:40 Total Protein 6.2 g/dL (6.4-8.2) L 04/22/20 05:30 Albumin 2.8 g/dL (3.4-5.0) L 04/22/20 05:30 Procalcitonin 0.4 ng/mL 04/22/20 05:30 Urine Color Vandana (Yellow) 04/21/20 17:24 Urine Clarity Cloudy (Clear) 04/21/20 17:24 Urine pH 5.5 (5-8) 04/21/20 17:24 Ur Specific [place] >= 1.030 (1.005-1.025) H 04/21/20 17:24 Urine Protein 100 mg/dL (Negative) H 04/21/20 17:24 Urine Ketones 15 mg/dL (Negative) H 04/21/20 17:24 Urine Blood Large (Negative) H 04/21/20 17:24 Urine Nitrite Negative (Negative) 04/21/20 17:24 Urine Bilirubin Small (Negative) H 04/21/20 17:24 Urine Urobilinogen 0.2 EU/dL (Up TO 0.2) 04/21/20 17:24 Ur Leukocyte Esterase Small (Negative) H 04/21/20 17:24 Urine RBC 20-50 HPF (0-2) H 04/21/20 17:24 Urine WBC 5-10 HPF (0-5) 04/21/20 17:24 Ur Epithelial Cells Few HPF (Negative) 04/21/20 17:24 Urine Crystals Negative HPF (Negative) 04/21/20 17:24 Urine Bacteria Moderate HPF (Negative) 04/21/20 17:24 Urine Casts Negative LPF (Negative) 04/21/20 17:24 Urine Mucus Negative (Negative) 04/21/20 17:24 Ur Culture Indicated? Yes 04/21/20 17:24 Urine Glucose Negative mg/dL (Negative) 04/21/20 17:24
[2020-04-22] MEDS: Docusate Sodium 100 MG CAP PO ×2 (14:03→19:57)
[2020-04-22 14:30] LABS: COVID-19 RT-PCR UVMMC Result Negative (Negative)
[2020-04-22] MEDS: cefTRIAXone 2 GM/50 ML BAG IVPB (17:16)
[2020-04-22] MEDS: Acetaminophen 325 MG TAB PO (23:52)
[2020-04-23] MEDS: Normal Saline 1,000 ML 150 ML IV (01:58)
[2020-04-23 03:42] VITALS: BP 120/70; PULSE 72; RESP 18; TEMP 36.5; O2SAT 96
[2020-04-23 07:10] LABS: Abs Immature Grans 0.11 k/cumm (0.0-0.09); Absolute Eosinophil Count 0.17 k/cumm (0.0-0.7); Absolute Lymphocyte Count 1.47 k/cumm (1.2-3.4); Absolute Monocyte Count 1.95 k/cumm (0.11-0.7); Eosinophils % 0.8; HCT 32.9 % (40.0-50.0); HGB 10.7 g/dL (13.5-17.5); Immature Grans % 0.5 %; Mean Corp. HGB Concentration 32.5 g/dL (32.0-36.0); Mean Corpuscular Hemoglobin 28.9 pg (27.0-33.0); Mean Corpuscular Volume 88.9 fL (80-95); Mean Platelet Volume 10.1 fL (8.0-11.0); Monocytes % 9.3; Neutrophils % 82.4; Platelet Count 261 x1000/uL (130-400); RBC Distribution Width 16.1 % (11.8-14.1); White Blood Cell Count 20.99 k/cumm (4.4-10.8)
[2020-04-23 07:22] LABS: Anion Gap 8.9 mmol/L (3-11); BUN 5 mg/dL (7-18); CO2 26.1 mmol/L (21.0-32.0); Calcium 8.2 mg/dL (8.5-10.1); Chloride 107 mmol/L (98-107); Glucose 136 mg/dL (74-106); Magnesium 1.8 mg/dL (1.8-2.4); Potassium 3.9 mmol/L (3.5-5.1); Sodium 142 mmol/L (136-145)
[2020-04-23 07:31] VITALS: BP 127/72; PULSE 69; RESP 18; TEMP 36.9; O2SAT 95
[2020-04-23] MEDS: Insulin Aspart 300 UNITS/3 ML PEN SC ×3 (08:04→21:22)
[2020-04-23] MEDS: Polyethylene Glycol 3350 17 GM PACKET PO ×2 (08:04→19:47)
[2020-04-23] MEDS: Lisinopril 5 MG TAB 2.5 MG PO (08:05)
[2020-04-23] MEDS: Apixaban 5 MG TAB PO ×2 (08:05→19:50)
[2020-04-23] MEDS: Pantoprazole 40 MG TABCR PO ×2 (08:06→19:50)
[2020-04-23] MEDS: buPROPion-XL 150 MG TABCR 300 MG PO (08:06)
[2020-04-23] MEDS: Docusate Sodium 100 MG CAP PO ×3 (08:06→19:49)
[2020-04-23] MEDS: Magnesium Oxide 400 MG TAB PO ×2 (08:06→19:49)
[2020-04-23] MEDS: Fluticasone NASAL SPRAY 16 GM BTL NS ×2 (08:07→19:47)
--- NOTE | 2020-04-23 08:40 | PT.INIE ---
Date of service: 04/23/20 Time of Service: 08:15 PT Notes Visit Reasons: UTI,SEPSIS SYNDROME,DEHYDRATION Inpatient Physical Therapy Evaluation Date: Thursday April 23, 2020 Referring Doctor: Ellen Chanel PT Orders: PT CONSULT: Dizziness, eval for vertigo Precautions: Fall precautions Patient Profile/Admitting Diagnosis: Patient is a 64-year-old male admitted to [facility] via the ER. Arrived to the ER on 21 April secondary to complaints of fever, dizziness and urinary retention. PMHX: Medical History Acute thrombosis of right basilic vein (Inactive) Complication associated with peripherally inserted central catheter (PICC) (Inactive) Constipation, chronic (Chronic) COPD (chronic obstructive pulmonary disease) (Chronic) Diabetes mellitus (Chronic) GERD (gastroesophageal reflux disease) (Chronic) H/O schizophrenia (Acute) H/O: CVA (cerebrovascular accident) (Acute) Hypertension (Chronic) Non-insulin dependent type 2 diabetes mellitus (Chronic) Oropharyngeal dysphagia (Acute) Pulmonary emboli (Inactive) Schizo affective schizophrenia (Chronic) Social History/Home Situation: Patient lives in a jail in [place] Current Functional Limitations: None at time of initial evaluation Equipment Owned/DME: None. Patient reports independent with all functional ADLs, ambulation etc. prior to admission to [facility]. Baseline is full functional mobility with no history of assistive device for ambulation. Subjective: Patient reports that he is feeling great this morning upon start of initial evaluation. Has no complaints of dizziness or lightheadedness. Feels as though the medicine is really help with his overall condition. He is looking forward to having a shower and shaving. Has no complaints of any pain. Objective: General Observation: Telemetry, IV right upper extremity antecubital fossa. Patient had just finished breakfast and was laying comfortably in his hospital bed with head of bed at 7 degrees watching television. Patient is agreeable to PT consult. Mental Status: Alert and oriented x3 Pain: No complaints ROM: Right Upper Extremity: Within normal limits Left Upper Extremity: Within normal limits Right Lower Extremity: Within normal limits Left Lower Extremity: Within normal limits Cervical spine: Flexion and extension within normal limits, rotation 60 degrees bilaterally, sidebending 25 degrees bilaterally. All cervical motions pain-free. No cervical motion elicited any lightheadedness or dizziness. Strength: Right Upper Extremity: 5/5 throughout Left Upper Extremity: 5/5 throughout Right Lower Extremity: 5/5 throughout Left Lower Extremity: 5/5 throughout Sensation: Intact sensation light touch throughout bilateral upper extremities and lower extremities. DTRs not assessed. Bed Mobility/Transfers: Bed mobility: Independent with all bed mobility. Supine?sit: Independent head of bed 7 degrees Sit-stand: Standby assist x1 Stand?sit: Standby assist x1 Gait: Patient ambulates 260 feet with standby assist. No complaints of lightheadedness or dizziness. No assistive device needed. Balance: Static Sitting: Good Dynamic Sitting: Good Static Standing: Good Dynamic Standing: Good Special Tests: Mobility Limitations Standardized Measure [facility] AM-PAC 6 clicks Basic Mobility Inpatient Short Form: Raw Score: 24 standardized Score: 61.14 CMS Score: 0% CMS Modifier: CH Vertigo special test: Negative Carmelina left and right, negative orthostatic hypotension. Informed Consent/Education: Patient instructed in purpose of PT consult and plan of care. Assessment: Patient is a 64 year old male referred to physical therapy services with the diagnosis of UTI/urinary retention, fever, dizziness. Orders received for vertigo evaluation. Patient displays no signs of vertigo and has negative BPPV testing. Was independent with all functional transfers and ambulation. Adequate strength, pain-free. Patient denied any lightheadedness or dizziness during ambulation and with transfers positional changes . Do not feel patient is in need of formal therapy this time. He is independent with all functional mobility. Negative vertigo testing. Patient is assessed as a X low [id number] [] Moderate [id number] [] High 05181 complexity based on the following: History: See above Examination: See above Presentation: Stable Decision Making: Low Plan of Care/Treatment Plan: DISCHARGE RECOMMENDATIONS: Recommend return to jail upon discharge from [facility]. TREATMENT CODE/TIME: 25 minutes 8 15-8 40. [id number] Thank you for this referral. Armando Quinones PT, DPT Disclaimer: This note was created using [employer] voice recognition software. It was reviewed for major content. However, there may be multiple small discrepancies and errors due to the voice recognition aspects of the software.
--- NOTE | 2020-04-23 09:33 | PGE_ITS ---
Date of Service Date of service: 04/23/20 Time of Service: 09:33 Assessment and Plan Assessment and plan (1) UTI (urinary tract infection): Status: Acute Assessment and plan: Urine culture growing gram negative, continue ceftriaxone day 2 Blood cultures pending Lactate normalized. WBC down to 32.66 Will do PVR and give bowel regimen for constipation Qualifiers: Hematuria presence: without hematuria Urinary tract infection type: site unspecified Qualified Code(s): N39.0 - Urinary tract infection, site not specified (2) Sepsis syndrome: Status: Acute Assessment and plan: Borderline symptoms of sepsis with the patient be given aggressive IV hydration and treatment of his UTI. Lactate elevated at 1.7, normalized today. Will continue IVF overnight due to dizziness. (3) Acute dehydration: Status: Acute Assessment and plan: Continue IVF overnight and reevaluate in am (4) Leukocytosis: Status: Acute Assessment and plan: Severe leukocytosis and the patient has done this in the past when acutely ill. He also seems to resolve with treatment of his acute infection. This will be followed up. Consider hematology referral as an outpatient. Qualifiers: Leukocytosis type: bandemia Qualified Code(s): D72.825 - Bandemia (5) COPD (chronic obstructive pulmonary disease): Status: Chronic Assessment and plan: Not exacerbated at this time, continue monitoring. (6) Schizo affective schizophrenia: Status: Chronic Assessment and plan: Well controlled with medications, continue medication (7) Non-insulin dependent type 2 diabetes mellitus: Status: Chronic Assessment and plan: controlled with metformin at home. Will hold and place on SSI while in the hospital. (8) DVT prophylaxis: Status: Acute Assessment and plan: On apixaban for history of PE. Jayden continue apixaban dosing. (9) Discharge planning issues: Status: Acute Assessment and plan: Will return to house when medically ready above case discussed with who is in agreement. Subjective Subjective Patient reports: feels better, tolerating liquids well, tolerating a regular diet, voiding w/o difficulty (bladder scans less than 170), bowel movement and afebrile; denies nausea, vomiting and shortness of breath Exam Const General: cooperative, healthy appearing, comfortable and no acute distress Nutritional Appearance: average body habitus Orientation: alert, awake and oriented x3 HENMT Head: normal to inspection, normocephalic and atraumatic Mouth: oral mucosae normal Resp Effort & Inspection: normal respiratory effort and able to speak in complete sentences Auscultation: clear to auscultation bilaterally Cardio Rate: regular rate Rhythm: regular rhythm GI Inspection: normal to inspection Palpation: soft Auscultation: normal bowel sounds Skin General skin exam: no rashes or lesions noted Neuro General: patient alert, patient awake and patient oriented x3 Cranial Nerves: CN's II-XI intact bilaterally Extrem General: normal to inspection, full ROM and no pedal edema Objective Objective Clinical Data: Abnormal lab results 04/23/20 04/23/20 Range/Units 06:35 06:35 WBC 20.99 H D (4.4-10.8) k/cumm RBC 3.70 L (4.50-6.00) m/cumm Hgb 10.7 L (13.5-17.5) g/dL Hct 32.9 L (40.0-50.0) % RDW 16.1 H (11.8-14.1) % Absolute Neutrophils 17.30 H (1.2-6.7) k/cumm Absolute Monocytes 1.95 H (0.11-0.7) k/cumm BUN 5 L (7-18) mg/dL Glucose 136 H (74-106) mg/dL Calcium 8.2 L (8.5-10.1) mg/dL Vital Signs Temperature 36.9 C 04/23/20 07:31 Temperature Source Tympanic 04/23/20 07:31 Pulse 69 04/23/20 07:31 Pulse Rhythm Regular 04/23/20 05:56 Respiratory Rate 18 04/23/20 07:31 Respiratory Effort Non-Labored 04/23/20 05:56 Respiratory Depth Normal 04/23/20 05:56 Respiratory Pattern Normal 04/23/20 05:56 Blood Pressure 127/72 04/23/20 07:31 Blood Pressure Mean 80 04/21/20 21:46 Blood Pressure Position Sitting 04/21/20 17:11 Pulse Oximetry 95 04/23/20 07:31 Oxygen Delivery Method Room Air 04/23/20 07:31 Oxygen Flow Rate 0 04/23/20 07:31 Pain Level 0 04/23/20 07:31 Comment 04/21/20 22:30 Intake & Output 04/22/20 04/22/20 04/23/20 11:59 23:59 11:59 Intake Total 2142.5 / 3632.5 1490 / 3632.5 1920 / 1920 Output Total 400 / 1600 1200 / 1600 1000 / 1000 Balance 1742.5 / 2032.5 290 / 2032.5 920 / 920 Weight 65 kg 66.2 kg Intake: IV 1942.5 / 2942.5 1000 / 2942.5 1920 / 1920 Oral 200 / 690 490 / 690 Output: Urine 400 / 1600 1200 / 1600 1000 / 1000 Other: Urine Color Light Vandana Yellow Yellow Urine Appearance Clear Clear Clear Urine Odor None None Comment post void residual Stool Size Large Stool Characteristics Soft Formed Voiding Methods Urinal Urinal Urinal Incontinent Laboratory Results WBC 20.99 k/cumm (4.4-10.8) H D 04/23/20 06:35 RBC 3.70 m/cumm (4.50-6.00) L 04/23/20 06:35 Hgb 10.7 g/dL (13.5-17.5) L 04/23/20 06:35 Hct 32.9 % (40.0-50.0) L 04/23/20 06:35 MCV 88.9 fL (80-95) 04/23/20 06:35 MCH 28.9 pg (27.0-33.0) 04/23/20 06:35 MCHC 32.5 g/dL (32.0-36.0) 04/23/20 06:35 RDW 16.1 % (11.8-14.1) H 04/23/20 06:35 Plt Count 261 x1000/uL (130-400) 04/23/20 06:35 MPV 10.1 fL (8.0-11.0) 04/23/20 06:35 Immature Gran % 0.5 % 04/23/20 06:35 Neutrophils % 82.4 04/23/20 06:35 Lymphocytes % 7.0 04/23/20 06:35 Monocytes % 9.3 04/23/20 06:35 Eosinophils % 0.8 04/23/20 06:35 Basophils % 0.0 04/23/20 06:35 Absolute Neutrophils 17.30 k/cumm (1.2-6.7) H 04/23/20 06:35 Absolute Lymphocytes 1.47 k/cumm (1.2-3.4) 04/23/20 06:35 Absolute Monocytes 1.95 k/cumm (0.11-0.7) H 04/23/20 06:35 Absolute Eosinophils 0.17 k/cumm (0.0-0.7) 04/23/20 06:35 Absolute Basophils 0.00 k/cumm (0.0-0.2) 04/23/20 06:35 Differential Comment Agrees w/ instrument 04/21/20 17:40 RBC Morphology Normal 04/21/20 17:40 PT 11.6 sec (9.3-11.0) H 04/21/20 17:40 INR 1.2 (0.9-1.1) H 04/21/20 17:40 APTT 52.9 sec (21.0-31.4) H 04/21/20 17:40 Sodium 142 mmol/L (136-145) 04/23/20 06:35 Potassium 3.9 mmol/L (3.5-5.1) 04/23/20 06:35 Chloride 107 mmol/L (98-107) 04/23/20 06:35 Carbon Dioxide 26.1 mmol/L (21.0-32.0) 04/23/20 06:35 Anion Gap 8.9 mmol/L (3-11) 04/23/20 06:35 BUN 5 mg/dL (7-18) L 04/23/20 06:35 Creatinine 0.70 mg/dL (0.70-1.30) 04/23/20 06:35 Estimated GFR/1.73 m2 >= 60.00 (mL/min/1.73m2) 04/23/20 06:35 Glucose 136 mg/dL (74-106) H 04/23/20 06:35 Lactate 1.1 mmol/L (0.6-1.4) 04/22/20 08:50 Calcium 8.2 mg/dL (8.5-10.1) L 04/23/20 06:35 Magnesium 1.8 mg/dL (1.8-2.4) 04/23/20 06:35 Total Bilirubin 0.3 mg/dL (0.2-1.0) 04/22/20 05:30 AST 17 U/L (15-37) 04/22/20 05:30 ALT 17 U/L (16-63) 04/22/20 05:30 Alkaline Phosphatase 91 U/L (46-116) 04/22/20 05:30 Troponin I < 0.05 ng/mL (<0.06) 04/21/20 17:40 Total Protein 6.2 g/dL (6.4-8.2) L 04/22/20 05:30 Albumin 2.8 g/dL (3.4-5.0) L 04/22/20 05:30 Procalcitonin 0.4 ng/mL 04/22/20 05:30 Urine Color Vandana (Yellow) 04/21/20 17:24 Urine Clarity Cloudy (Clear) 04/21/20 17:24 Urine pH 5.5 (5-8) 04/21/20 17:24 Ur Specific [place] >= 1.030 (1.005-1.025) H 04/21/20 17:24 Urine Protein 100 mg/dL (Negative) H 04/21/20 17:24 Urine Ketones 15 mg/dL (Negative) H 04/21/20 17:24 Urine Blood Large (Negative) H 04/21/20 17:24 Urine Nitrite Negative (Negative) 04/21/20 17:24 Urine Bilirubin Small (Negative) H 04/21/20 17:24 Urine Urobilinogen 0.2 EU/dL (Up TO 0.2) 04/21/20 17:24 Ur Leukocyte Esterase Small (Negative) H 04/21/20 17:24 Urine RBC 20-50 HPF (0-2) H 04/21/20 17:24 Urine WBC 5-10 HPF (0-5) 04/21/20 17:24 Ur Epithelial Cells Few HPF (Negative) 04/21/20 17:24 Urine Crystals Negative HPF (Negative) 04/21/20 17:24 Urine Bacteria Moderate HPF (Negative) 04/21/20 17:24 Urine Casts Negative LPF (Negative) 04/21/20 17:24 Urine Mucus Negative (Negative) 04/21/20 17:24 Ur Culture Indicated? Yes 04/21/20 17:24 Urine Glucose Negative mg/dL (Negative) 04/21/20 17:24 COVID-19 PCR Negative (Negative) 04/21/20 20:57 Nasopharyn COVID-19 PCR Not Applicable 04/21/20 20:57 Ref Test Perform Site [facility] lab 04/21/20 20:57
--- NOTE | 2020-04-23 11:35 | PHA.REVIEW ---
Pharmacy Admission Review - Admission Clinical Review (Last Updated 04/22/20 @ 10:37 by Ellen Chanel NP) Acute dehydration (Acute) Sepsis syndrome (Acute) UTI (urinary tract infection) (Acute) Acute pyelonephritis (Acute) Leukocytosis (Acute) Discharge planning issues (Acute) DVT prophylaxis (Acute) No Known Allergies Allergy (Unverified 04/21/20 17:15) Height 5 ft 8 in Weight 66.2 kg - Renal Dosing Renal Dosing: BUN 5 mg/dL (7-18) L 04/23/20 06:35 Creatinine 0.70 mg/dL (0.70-1.30) 04/23/20 06:35 Medications needing adjustments: Reviewed (CRCL ~85ML/MIN) - Anticoagulation Anticoagulation: Hgb 10.7 g/dL (13.5-17.5) L 04/23/20 06:35 Hct 32.9 % (40.0-50.0) L 04/23/20 06:35 Plt Count 261 x1000/uL (130-400) 04/23/20 06:35 INR 1.2 (0.9-1.1) H 04/21/20 17:40 Creatinine 0.70 mg/dL (0.70-1.30) 04/23/20 06:35 DVT Prohphylaxis: Reviewed Medications: Apixaban Therapeutic Anticoagulation: Reviewed Medications: Apixaban - Opiate Usage Evaluate Pain Scale/Pains Meds: N/A - Relevant Labs Sodium 142 mmol/L (136-145) 04/23/20 06:35 Potassium 3.9 mmol/L (3.5-5.1) 04/23/20 06:35 Chloride 107 mmol/L (98-107) 04/23/20 06:35 Magnesium 1.8 mg/dL (1.8-2.4) 04/23/20 06:35 Electrolytes, C-Reactive P, ESR: Reviewed - DM Control DM Control: Glucose 136 mg/dL (74-106) H 04/23/20 06:35 Finger Stick Blood Glucose 142 Finger Stick Blood Glucose 142 Insulin Dosing: Reviewed (insulin aspart SS) - Heart Failure/KY Heart Failure/KY: Troponin I < 0.05 ng/mL (<0.06) 04/21/20 17:40 - BP Control BP Control: Blood Pressure 127/72 Blood Pressure 120/70 Blood Pressure 116/70 If elevated: Reviewed - Qtc Review If Elevated: N/A - Home Meds Home Med List reviewed: Intervened (asked CM to request current med list from [facility]) - Current meds Current Medication Order Review: Reviewed (ceftriaxone for gram neg UTI, BC no growth 24 hrs) - Comments Comments/Follow Ups: pt on clozapine . eligibilty check through [facility] program done 04/22/20. last blood draw date 04/05/20
--- NOTE | 2020-04-23 12:07 | PDOC.CMPRO ---
- If Service Date Differs Date of service: 04/23/20 Time of Service: 12:07 Care Management Progress Note S/O: No change in plan. Elias remains on IV abx. His lactate which was elevated at 1.7 has normalized today. Elias continues to improve, fluids have been stopped and telemetry monitoring has been discontinued. A physical therapy consult was done today and Elias is reported to be independent with all functional mobility. CM will continue to follow. A: Koko is a 64 year old male admitted to [facility] on 04/21/2020 for a UTI, sepsis syndrome, and dehydration. P: Anticipate Elias will return to [place] with no new services when medically cleared by provider. He will follow up with his PCP, hematology as outpatient, and plan of care as directed. Transportation to [place] via [facility] to be coordinated by CM when ready. CM will continue to support patient and discharge planning needs.
[2020-04-23 15:26] VITALS: BP 135/74; PULSE 84; RESP 17; TEMP 36.8; O2SAT 96
[2020-04-23] MEDS: Normal Saline Flush 10 ML SYR IVP (17:19)
[2020-04-23] MEDS: cefTRIAXone 2 GM/50 ML BAG IVPB (17:19)
[2020-04-23 19:40] VITALS: BP 156/81; PULSE 80; RESP 17; TEMP 36.3; O2SAT 95
[2020-04-23] MEDS: Simvastatin 20 MG TAB PO (21:20)
[2020-04-23 23:30] VITALS: BP 135/87; PULSE 79; RESP 19; TEMP 36.7; O2SAT 95
[2020-04-24 07:06] LABS: Abs Immature Grans 0.07 k/cumm (0.0-0.09); Absolute Eosinophil Count 0.18 k/cumm (0.0-0.7); Absolute Lymphocyte Count 1.38 k/cumm (1.2-3.4); Absolute Monocyte Count 1.48 k/cumm (0.11-0.7); Eosinophils % 1.9; HGB 10.9 g/dL (13.5-17.5); Immature Grans % 0.7 %; Lymphocytes % 14.5; Mean Corpuscular Volume 87.8 fL (80-95); Mean Platelet Volume 9.8 fL (8.0-11.0); Monocytes % 15.6; Neutrophils % 67.3; Platelet Count 302 x1000/uL (130-400); RBC 3.76 m/cumm (4.50-6.00); RBC Distribution Width 15.9 % (11.8-14.1); White Blood Cell Count 9.51 k/cumm (4.4-10.8)
[2020-04-24 07:08] LABS: Anion Gap 6.2 mmol/L (3-11); BUN 5 mg/dL (7-18); CO2 28.8 mmol/L (21.0-32.0); CREATININE 0.71 mg/dL (0.70-1.30); Calcium 8.7 mg/dL (8.5-10.1); Chloride 106 mmol/L (98-107); Glucose 121 mg/dL (74-106); Potassium 3.7 mmol/L (3.5-5.1); Sodium 141 mmol/L (136-145)
[2020-04-24 07:18] VITALS: BP 163/92; PULSE 78; RESP 20; TEMP 37.1; O2SAT 93
[2020-04-24] MEDS: Apixaban 5 MG TAB PO ×2 (08:26→19:41)
[2020-04-24] MEDS: Fluticasone NASAL SPRAY 16 GM BTL NS ×2 (08:26→19:39)
[2020-04-24] MEDS: Insulin Aspart 300 UNITS/3 ML PEN SC ×3 (08:26→22:06)
[2020-04-24] MEDS: Lisinopril 5 MG TAB 2.5 MG PO (08:26)
[2020-04-24] MEDS: Polyethylene Glycol 3350 17 GM PACKET PO ×2 (08:26→19:39)
[2020-04-24] MEDS: Pantoprazole 40 MG TABCR PO ×2 (08:28→19:41)
[2020-04-24] MEDS: Docusate Sodium 100 MG CAP PO ×3 (08:29→19:41)
[2020-04-24] MEDS: Magnesium Oxide 400 MG TAB PO ×2 (08:30→19:41)
[2020-04-24] MEDS: buPROPion-XL 150 MG TABCR 300 MG PO (08:30)
--- NOTE | 2020-04-24 08:35 | PGE_ITS ---
Date of Service Date of service: 04/24/20 Time of Service: 08:35 Assessment and Plan Assessment and plan (1) UTI (urinary tract infection): Start date: 04/24/20 Start time: 08:37 Status: Acute Assessment and plan: Urine cx with e.coli, pansensitive. Sensitive to cephlaspornins, BC NGTD at this time. WBC normalized. Day 3 ceftriaxone, Possible discharge in am. Qualifiers: Urinary tract infection type: site unspecified Hematuria presence: without hematuria Qualified Code(s): N39.0 - Urinary tract infection, site not specified (2) Sepsis syndrome: Start date: 04/24/20 Start time: 08:40 Status: Resolved Assessment and plan: Resolved with aggressive IV hydration (3) Acute dehydration: Start date: 04/24/20 Start time: 08:40 Status: Resolved Assessment and plan: Resolved after aggressive hydration (4) Leukocytosis: Start date: 04/24/20 Start time: 08:41 Status: Resolved Assessment and plan: Severe leukocytosis in setting of infection which usually tends to happen quickly when he presents with infection Qualifiers: Leukocytosis type: bandemia Qualified Code(s): D72.825 - Bandemia (5) COPD (chronic obstructive pulmonary disease): Start date: 04/24/20 Start time: 08:47 Status: Chronic Assessment and plan: Not exacerbated at this time, continue monitoring. (6) Schizo affective schizophrenia: Start date: 04/24/20 Start time: 08:47 Status: Chronic Assessment and plan: Well controlled with medications, continue medication (7) Non-insulin dependent type 2 diabetes mellitus: Start date: 04/24/20 Start time: 08:48 Status: Chronic Assessment and plan: controlled with metformin at home. Will hold and place on SSI while in the hospital. (8) DVT prophylaxis: Start date: 04/24/20 Start time: 08:48 Status: Acute Assessment and plan: On apixaban for history of PE. Will continue apixaban dosing. (9) Discharge planning issues: Start date: 04/24/20 Start time: 08:48 Status: Acute Assessment and plan: Will return to house when medically ready above case discussed with Dr. Chakraborty who is in agreement. Subjective Subjective Patient reports: no new complaints Interval history since last seen: Feeling better, Dizziness resolved. 2 BM yesterday. Denies CP, SOB, N/V/D Exam Narrative Exam Narrative: General: Patient appears appropriate for age, sitting up on side of the bed HEENT: Normocephalic, eyes with pupils equal and reactive light symmetrically, extraocular movement intact and sclera anicteric. Oropharynx with moist mucosa orientation. External ears normal. Neck: Supple without JVD. Lungs: Fair aeration and clear to auscultation and percussion. Heart: Regular rate and rhythm with 2/6 holosystolic murmur apex. No rub or gallop. Abdomen: Protuberant and obese contour, soft with no focalizing tenderness and no palpable hepatosplenomegaly. BSx4 quads Extremities: Without clubbing, cyanosis or pitting edema. Skin: Normal skin turgor No rashes. Neuro: Cranial nerves II to XII gross intact, no focal motor deficits. Objective Objective Clinical Data: Abnormal lab results 04/24/20 04/24/20 Range/Units 06:45 06:45 RBC 3.76 L (4.50-6.00) m/cumm Hgb 10.9 L (13.5-17.5) g/dL Hct 33.0 L (40.0-50.0) % RDW 15.9 H (11.8-14.1) % Absolute Monocytes 1.48 H (0.11-0.7) k/cumm BUN 5 L (7-18) mg/dL Glucose 121 H (74-106) mg/dL Vital Signs Temperature 37.1 C 04/24/20 07:18 Temperature Source Temporal Artery Scan 04/24/20 07:18 Pulse 78 04/24/20 07:18 Pulse Rhythm Regular 04/24/20 04:14 Respiratory Rate 20 04/24/20 07:18 Respiratory Effort Non-Labored 04/24/20 04:14 Respiratory Depth Normal 04/24/20 04:14 Respiratory Pattern Normal 04/24/20 04:14 Blood Pressure 163/92 H 04/24/20 07:18 Blood Pressure Mean 80 04/21/20 21:46 Blood Pressure Position Sitting 04/21/20 17:11 Pulse Oximetry 93 L 04/24/20 07:18 Oxygen Delivery Method Room Air 04/24/20 07:18 Oxygen Flow Rate 0 04/24/20 07:18 Pain Level 0 04/24/20 07:18 Comment 04/24/20 07:18 Intake & Output 04/23/20 04/23/20 04/24/20 11:59 23:59 11:59 Intake Total 2410 / 2940 530 / 2940 50 / 50 Output Total 1540 / 1815 275 / 1815 1100 / 1100 Balance 870 / 1125 255 / 1125 -1050 / -1050 Weight 66.2 kg 64.7 kg Intake: IV [id number] 50 / 50 Oral 490 / 970 480 / 970 Output: Urine 1540 / 1815 275 / 1815 1100 / 1100 Other: Urine Color Yellow Yellow Yellow Urine Appearance Clear Clear Clear Urine Odor None Normal Normal Voiding Methods Urinal Toilet Urinal Laboratory Results WBC 9.51 k/cumm (4.4-10.8) D 04/24/20 06:45 RBC 3.76 m/cumm (4.50-6.00) L 04/24/20 06:45 Hgb 10.9 g/dL (13.5-17.5) L 04/24/20 06:45 Hct 33.0 % (40.0-50.0) L 04/24/20 06:45 MCV 87.8 fL (80-95) 04/24/20 06:45 MCH 29.0 pg (27.0-33.0) 04/24/20 06:45 MCHC 33.0 g/dL (32.0-36.0) 04/24/20 06:45 RDW 15.9 % (11.8-14.1) H 04/24/20 06:45 Plt Count 302 x1000/uL (130-400) 04/24/20 06:45 MPV 9.8 fL (8.0-11.0) 04/24/20 06:45 Immature Gran % 0.7 % 04/24/20 06:45 Neutrophils % 67.3 04/24/20 06:45 Lymphocytes % 14.5 04/24/20 06:45 Monocytes % 15.6 04/24/20 06:45 Eosinophils % 1.9 04/24/20 06:45 Basophils % 0.0 04/24/20 06:45 Absolute Neutrophils 6.40 k/cumm (1.2-6.7) 04/24/20 06:45 Absolute Lymphocytes 1.38 k/cumm (1.2-3.4) 04/24/20 06:45 Absolute Monocytes 1.48 k/cumm (0.11-0.7) H 04/24/20 06:45 Absolute Eosinophils 0.18 k/cumm (0.0-0.7) 04/24/20 06:45 Absolute Basophils 0.00 k/cumm (0.0-0.2) 04/24/20 06:45 Differential Comment Agrees w/ instrument 04/21/20 17:40 RBC Morphology Normal 04/21/20 17:40 PT 11.6 sec (9.3-11.0) H 04/21/20 17:40 INR 1.2 (0.9-1.1) H 04/21/20 17:40 APTT 52.9 sec (21.0-31.4) H 04/21/20 17:40 Sodium 141 mmol/L (136-145) 04/24/20 06:45 Potassium 3.7 mmol/L (3.5-5.1) 04/24/20 06:45 Chloride 106 mmol/L (98-107) 04/24/20 06:45 Carbon Dioxide 28.8 mmol/L (21.0-32.0) 04/24/20 06:45 Anion Gap 6.2 mmol/L (3-11) 04/24/20 06:45 BUN 5 mg/dL (7-18) L 04/24/20 06:45 Creatinine 0.71 mg/dL (0.70-1.30) 04/24/20 06:45 Estimated GFR/1.73 m2 >= 60.00 (mL/min/1.73m2) 04/24/20 06:45 Glucose 121 mg/dL (74-106) H 04/24/20 06:45 Lactate 1.1 mmol/L (0.6-1.4) 04/22/20 08:50 Calcium 8.7 mg/dL (8.5-10.1) 04/24/20 06:45 Magnesium 1.8 mg/dL (1.8-2.4) 04/23/20 06:35 Total Bilirubin 0.3 mg/dL (0.2-1.0) 04/22/20 05:30 AST 17 U/L (15-37) 04/22/20 05:30 ALT 17 U/L (16-63) 04/22/20 05:30 Alkaline Phosphatase 91 U/L (46-116) 04/22/20 05:30 Troponin I < 0.05 ng/mL (<0.06) 04/21/20 17:40 Total Protein 6.2 g/dL (6.4-8.2) L 04/22/20 05:30 Albumin 2.8 g/dL (3.4-5.0) L 04/22/20 05:30 Procalcitonin 0.4 ng/mL 04/22/20 05:30 Urine Color Vandana (Yellow) 04/21/20 17:24 Urine Clarity Cloudy (Clear) 04/21/20 17:24 Urine pH 5.5 (5-8) 04/21/20 17:24 Ur Specific Carlotta >= 1.030 (1.005-1.025) H 04/21/20 17:24 Urine Protein 100 mg/dL (Negative) H 04/21/20 17:24 Urine Ketones 15 mg/dL (Negative) H 04/21/20 17:24 Urine Blood Large (Negative) H 04/21/20 17:24 Urine Nitrite Negative (Negative) 04/21/20 17:24 Urine Bilirubin Small (Negative) H 04/21/20 17:24 Urine Urobilinogen 0.2 EU/dL (Up TO 0.2) 04/21/20 17:24 Ur Leukocyte Esterase Small (Negative) H 04/21/20 17:24 Urine RBC 20-50 HPF (0-2) H 04/21/20 17:24 Urine WBC 5-10 HPF (0-5) 04/21/20 17:24 Ur Epithelial Cells Few HPF (Negative) 04/21/20 17:24 Urine Crystals Negative HPF (Negative) 04/21/20 17:24 Urine Bacteria Moderate HPF (Negative) 04/21/20 17:24 Urine Casts Negative LPF (Negative) 04/21/20 17:24 Urine Mucus Negative (Negative) 04/21/20 17:24 Ur Culture Indicated? Yes 04/21/20 17:24 Urine Glucose Negative mg/dL (Negative) 04/21/20 17:24 COVID-19 PCR Negative (Negative) 04/21/20 20:57 Nasopharyn COVID-19 PCR Not Applicable 04/21/20 20:57 Ref Test [facility] 04/21/20 20:57
[2020-04-24 10:46] LABS: Bilirubin Negative (Negative); Blood Negative (Negative); Clarity Clear (Clear); Glucose Negative (Negative); Ketones Negative (Negative); Leukocyte Esterase Moderate (Negative); Nitrite Negative (Negative); Urobilinogen 0.2 EU/dL (Up TO 0.2)
[2020-04-24 10:55] LABS: Bacteria Few HPF (Negative); C & S Indicated? Yes; Casts Negative LPF (Negative); Epithelial Cells Rare HPF (Negative); Mucus Trace (Negative); RBC 0-2 HPF (0-2); WBC 20-50 HPF (0-5)
--- NOTE | 2020-04-24 11:02 | PDOC.CMPRO ---
- If Service Date Differs Date of service: 04/24/20 Time of Service: 11:02 Care Management Progress Note S/O: No change in plan. Koko is on day 3 of ceftriaxone abx. Sepsis and dehydration have resolved since his admission and Koko reports feeling better. There have been no growth in blood cultures for the last 48 hours. Results from the urine culture done today are currently pending. CM will continue to follow. A: Koko is a 64 year old male admitted to [facility] on 04/21/2020 for a UTI, sepsis syndrome, and dehydration. P: Plan is for Koko to return to [place] tomorrow, Saturday, April 25, 2020, pending negative Covid test. He will follow up with his PCP, hematology as outpatient, and plan of care as directed. Transportation to [place] will either be by [place] staff ([facility]adira [phone]) vs. [facility] to be coordinated by CM when ready. CM will continue to support patient and discharge planning needs.
[2020-04-24 14:14] LABS: Crystals Negative HPF (Negative)
[2020-04-24 15:42] VITALS: BP 143/85; PULSE 80; RESP 17; TEMP 37.1; O2SAT 95
[2020-04-24] MEDS: cefTRIAXone 2 GM/50 ML BAG IVPB (17:39)
[2020-04-24 20:02] VITALS: BP 165/86; PULSE 76; RESP 18; TEMP 36.6; O2SAT 94
[2020-04-24] MEDS: Simvastatin 20 MG TAB PO (22:06)
[2020-04-24 23:57] VITALS: BP 120/66; PULSE 84; RESP 19; TEMP 37.2; O2SAT 96
[2020-04-25 06:50] LABS: Abs Immature Grans 0.13 k/cumm (0.0-0.09); HCT 34.3 % (40.0-50.0); HGB 11.3 g/dL (13.5-17.5); Mean Corp. HGB Concentration 32.9 g/dL (32.0-36.0); Mean Corpuscular Hemoglobin 29.1 pg (27.0-33.0); Mean Corpuscular Volume 88.4 fL (80-95); Mean Platelet Volume 9.7 fL (8.0-11.0); Platelet Count 328 x1000/uL (130-400); RBC 3.88 m/cumm (4.50-6.00); RBC Distribution Width 15.8 % (11.8-14.1); White Blood Cell Count 7.75 k/cumm (4.4-10.8)
[2020-04-25 07:07] LABS: Anion Gap 8.3 mmol/L (3-11); BUN 11 mg/dL (7-18); CO2 28.7 mmol/L (21.0-32.0); CREATININE 0.81 mg/dL (0.70-1.30); Calcium 8.7 mg/dL (8.5-10.1); Chloride 105 mmol/L (98-107); Glucose 139 mg/dL (74-106); Potassium 3.7 mmol/L (3.5-5.1); Sodium 142 mmol/L (136-145)
[2020-04-25 07:17] LABS: Absolute Eosinophil Count 0.23 k/cumm (0.0-0.7); Absolute Lymphocyte Count 1.32 k/cumm (1.2-3.4); Absolute Monocyte Count 1.16 k/cumm (0.11-0.7); Absolute Neutrophil Count 4.96 k/cumm (1.2-6.7); Atypical Lymphocytes % 3; Diff Comment Manual Differential; RBC Morphology Normal
[2020-04-25 07:37] VITALS: BP 131/79; PULSE 80; RESP 20; TEMP 36.8; O2SAT 93
[2020-04-25] MEDS: Polyethylene Glycol 3350 17 GM PACKET PO (08:17)
[2020-04-25] MEDS: Insulin Aspart 300 UNITS/3 ML PEN SC ×2 (08:17→11:26)
[2020-04-25] MEDS: buPROPion-XL 150 MG TABCR 300 MG PO (08:18)
[2020-04-25] MEDS: Apixaban 5 MG TAB PO (08:19)
[2020-04-25] MEDS: Pantoprazole 40 MG TABCR PO (08:19)
[2020-04-25] MEDS: Docusate Sodium 100 MG CAP PO ×2 (08:19→13:34)
[2020-04-25] MEDS: Magnesium Oxide 400 MG TAB PO (08:19)
[2020-04-25] MEDS: Lisinopril 5 MG TAB 2.5 MG PO (08:20)
[2020-04-25] MEDS: Fluticasone NASAL SPRAY 16 GM BTL NS (08:20)
--- NOTE | 2020-04-25 10:40 | W.PM.DS.N ---
Date of service: 04/25/20 Time of Service: 10:41 DS: Diagnosis Discharge Diagnosis (1) UTI (urinary tract infection): Start date: 04/25/20 Start time: 15:02 Status: Acute Asessment and Plan: Urine cx with e.coli, pansensitive. Sensitive to cephlaspornins, BC NGTD at this time. WBC normalized. Day , Recommend treating for 5 days due to sepsis syndrome transition to PO cefpodoxime for a total of 5 days (2) Sepsis syndrome: Start date: 04/25/20 Start time: 15:02 Status: Resolved Asessment and Plan: Given aggressive IV hydration (3) Acute dehydration: Start date: 04/25/20 Start time: 15:02 Status: Resolved (4) Leukocytosis: Start date: 04/25/20 Start time: 15:02 Status: Resolved Asessment and Plan: Due to infection normalized with cephlasporins (5) COPD (chronic obstructive pulmonary disease): Start date: 04/25/20 Start time: 15:02 Status: Chronic Asessment and Plan: continue home regimen (6) Schizo affective schizophrenia: Start date: 04/25/20 Start time: 15:03 Status: Chronic Asessment and Plan: continue home regimen (7) Non-insulin dependent type 2 diabetes mellitus: Start date: 04/25/20 Start time: 15:03 Status: Chronic Asessment and Plan: Continue metformin Above case discussed with Dr. Chakraborty who is in agreement. Discharge Plan Disposition Patient Disposition: HOME Condition: Stable Discharge Details Chief Complaint: Urinary Clinical Impression: Acute pyelonephritis, Leukocytosis Reason For Visit: UTI,SEPSIS SYNDROME,DEHYDRATION Admit Date/Time: 04/21/20 20:16 Admit Provider: Skyler Del Real Attending Provider: Skyler Del Real Primary Care Provider: Columba Carter ED Provider: Mary Candelario Hospital Course Hospital Course: 64 y.o male PMH NIDDM, COPD GERD, HTN, schizo presented to [facility] ED with urinary retention, dysuria and fever along with dizziness. Patient had fever in ED of 100.4. Labs in the ED remarkable for leukocytosis of 40.52, otherwise normal. urine was positive for UTI, with CT abdomen revealing large amount of constipation. He was admitted to m/s for further management. During course of hospitalization he was given aggressive IV hydration, bowel regimen with suppository leading to large stool production. PVR revealing no greater than 175 ml. Urinary retention likely from constipation. Urine culture revealing e coli sensitive to cephlasporins. After 24 hours fever defervesced, leukocytosis improved. As of yesterday WBC normalized. Blood cultures with no growth, repeat UA still revealing moderate leuk estrase for this reason we will treat for a full 5 days. Dizziness was gone after 2 days IV hydration. He is doing remarkable. No n/v/d. Ambulatory in hallways. He denies CP, SOB, dizziness. Negative covid swab Home Meds and New Rx's Prescriptions: New cefpodoxime 200 mg Tablet 200 mg PO BID@1000,2200 Qty: 4 RF: 0 Continued ferrous gluconate 324 mg (38 mg iron) tablet 324 mg PO DAILY RF: 0 pioglitazone [Actos] 30 mg tablet 30 mg PO DAILY RF: 0 simvastatin 20 mg tablet 20 mg PO QHS RF: 0 Anoro Ellipta 62.5-25 mcg/actuation blister with device 1 inh IH DAILY RF: 0 bupropion HCl [Wellbutrin XL] 300 mg tablet extended release 24 hr 300 mg PO QAM RF: 0 calcium carbonate 200 mg calcium (500 mg) Tablet,Chewable 500 mg PO TID PRN PRNQty: 0 RF: 0 alum-mag hydroxide-simeth [Mag-Al Plus] 200-200-20 mg/5 mL Suspension 30 ml PO Q2H PRN PRNQty: 0 RF: 0 Eliquis 5 mg Tablet 5 mg PO BID Qty: 60 RF: 0 multivitamin [Multiple Vitamins] Tablet 1 tab PO DAILY Qty: 30 RF: 0 cyanocobalamin (vitamin B-12) [Vitamin B-12] 500 mcg Tablet 1,000 mcg PO DAILY Qty: 60 RF: 0 pantoprazole 40 mg Tablet,Delayed Release (Dr/Ec) 40 mg PO BID@0730,2000 Qty: 30 RF: 0 docusate sodium [Colace] 100 mg Capsule 100 mg PO DAILY Qty: 30 RF: 0 folic acid 1 mg Tablet 1 mg PO DAILY Qty: 30 RF: 0 magnesium chloride [Mag 64] 64 mg Tablet,Delayed Release (Dr/Ec) 64 mg PO BID Qty: 30 RF: 0 metformin 1,000 mg Tablet 1,000 - 1,500 mg PO DIRECTED RF: 0 cholecalciferol (vitamin D3) [Vitamin D3] 50 mcg (2,000 unit) capsule 1,000 unit PO DAILY RF: 0 hydroxyzine pamoate 25 mg capsule 25 mg PO TID RF: 0 ibuprofen 200 mg Tablet 200 mg PO PRN PRNRF: 0 acetaminophen [Tylenol Arthritis Pain] 650 mg Tablet Extended Release 650 mg PO BID PRNRF: 0 acetaminophen [Tylenol Extra Strength] 500 mg Tablet 1,000 mg PO Q8H PRNRF: 0 polyethylene glycol 3350 17 gram/dose powder 17 g PO DAILY PRN PRNRF: 0 ziprasidone HCl [Geodon] 80 MG capsule 80 - 160 mg PO DIRECTED RF: 0 clozapine [Clozaril] 100 MG tablet 200 - 375 mg PO DIRECTED RF: 0 Flovent HFA 120 PUFF HFA aerosol inhaler 2 puff Inhalation BID RF: 0 ascorbic acid (vitamin C) [Vitamin C] 500 mg Tablet 500 mg PO DAILY Qty: 30 RF: 0 albuterol sulfate [Ventolin HFA] 90 mcg/actuation Hfa Aerosol Inhaler 2 puff inhalation Q4H PRN PRNQty: 18 RF: 0 Discharge Instructions Instructions: Urinary Tract Infection in Men (DC), Dysuria (GEN) Additional Instructions: Drink plenty of water Take miralax daily to prevent constipation Take cefpodoxime until finished. Activity:: Activity as Tolerated Equipment/Supplies:: No Equipment Needed Diet:: Carb Counting Discharge Orders Discharge Orders: Discharge Order (Routine); Ordered 04/25/20 Ordered By: Ellen Chanel DS: Summary Status at Discharge Functional status at discharge: independent ambulation Overall status at discharge: patient is back to baseline Mental Status: mental status grossly normal Speech and Movement: speech and movement normal Mood: congruent mood Affect: normal affect Exam Narrative Exam Narrative: General: Patient appears appropriate for age, sitting up on side of the bed HEENT: Normocephalic, eyes with pupils equal and reactive light symmetrically, extraocular movement intact and sclera anicteric. Oropharynx with moist mucosa orientation. External ears normal. Neck: Supple without JVD. Lungs: Fair aeration and clear to auscultation and percussion. Heart: Regular rate and rhythm with 2/6 holosystolic murmur apex. No rub or gallop. Abdomen: Protuberant and obese contour, soft with no focalizing tenderness and no palpable hepatosplenomegaly. BSx4 quads Extremities: Without clubbing, cyanosis or pitting edema. Skin: Normal skin turgor No rashes. Neuro: Cranial nerves II to XII gross intact, no focal motor deficits. Psych Mental Status: mental status grossly normal Speech and Movement: speech and movement normal Mood: congruent mood Affect: normal affect DS: Data Vitals/I&O Vitals and I&O: Vital Signs Temperature 36.8 C 04/25/20 07:37 Temperature Source Tympanic 04/25/20 07:37 Pulse 80 04/25/20 07:37 Pulse Rhythm Regular 04/25/20 03:15 Respiratory Rate 20 04/25/20 07:37 Respiratory Effort Non-Labored 04/25/20 03:15 Respiratory Depth Normal 04/25/20 03:15 Respiratory Pattern Normal 04/25/20 03:15 Blood Pressure 131/79 04/25/20 07:37 Blood Pressure Mean 80 04/21/20 21:46 Blood Pressure Position Sitting 04/21/20 17:11 Pulse Oximetry 93 L 04/25/20 07:37 Oxygen Delivery Method Room Air 04/25/20 07:37 Oxygen Flow Rate 0 04/25/20 07:37 Pain Level 0 04/25/20 07:37 Comment 04/24/20 07:18 Intake & Output 04/24/20 04/24/20 04/25/20 11:59 23:59 11:59 Intake Total 50 / 170 120 / 170 Output Total 1200 / 1550 350 / 1550 Balance -1150 / -1380 -230 / -1380 Weight 64.7 kg 63.6 kg Intake: IV 50 / 50 Oral 120 / 120 Output: Urine 1200 / 1550 350 / 1550 Other: Urine Color Light Vandana Yellow Urine Appearance Clear Clear Clear Urine Odor None Normal Comment sent for UA Voiding Methods Urinal Toilet Data Completed and Pending Completed studies during hospitalization [Text1]: IMPRESSION: 1. Large amount of stool throughout the colon consistent with constipation. 2. Thick-walled urinary bladder with bladder diverticula. Bladder is incompletely distended. Cystitis cannot be entirely excluded. Please correlate clinically. 3. Near complete resolution of the infiltrates in the right lung. 4. Small infiltrate in the left lingula. Ventricles and Extra axial spaces: Normal in size and morphology for the patient's age. Hemorrhage: None. Cerebral parenchyma: Normal. Midline shift: None. Brainstem/Cerebellum: Normal. Calvarium: Normal. Visualized Paranasal sinuses/Mastoids: Clear. Soft Tissues: Unremarkable. IMPRESSION: No acute intracranial process. Bones/joints: Bony calvarium and skull base are intact and no acute fractures are detected. Sinuses: Paranasal sinuses are clear throughout and their bony margins are intact at the levels imaged. Mastoid air cells: Normally pneumatized and clear bilaterally. Soft tissues: Unremarkable. IMPRESSION: Unremarkable noncontrast head CT with no evidence of an acute intracranial process. Labs on day of discharge: Labs from last 24 hours 04/25/20 04/25/20 04/24/20 06:10 06:10 15:20 WBC 7.75 RBC 3.88 L Hgb 11.3 L Hct 34.3 L MCV 88.4 MCH 29.1 MCHC 32.9 RDW 15.8 H Plt Count 328 MPV 9.7 Immature Gran % See Differential Neutrophils % 64.0 Lymphocytes % 14.0 Atypical Lymphs % 3 Monocytes % 15.0 Eosinophils % 3.0 Basophils % 0.0 Metamyelocytes % 1.0 Absolute Neutrophils 4.96 Absolute Lymphocytes 1.32 Absolute Monocytes 1.16 H Absolute Eosinophils 0.23 Absolute Basophils 0.00 Differential Comment Manual differential RBC Morphology Normal Sodium 142 Potassium 3.7 Chloride 105 Carbon Dioxide 28.7 Anion Gap 8.3 BUN 11 D Creatinine 0.81 Estimated GFR/1.73 m2 >= 60.00 Glucose 139 H Calcium 8.7 Urine Color Urine Clarity Urine pH Ur Specific [place] Urine Protein Urine Ketones Urine Blood Urine Nitrite Urine Bilirubin Urine Urobilinogen Ur Leukocyte Esterase Urine RBC Urine WBC Ur Epithelial Cells Urine Crystals Urine Bacteria Urine Casts Urine Mucus Ur Culture Indicated? Urine Glucose COVID-19 PCR Pending Nasopharyn COVID-19 PCR Pending Ref Test Perform Site Pending 04/24/20 10:30 WBC RBC Hgb Hct MCV MCH MCHC RDW Plt Count MPV Immature Gran % Neutrophils % Lymphocytes % Atypical Lymphs % Monocytes % Eosinophils % Basophils % Metamyelocytes % Absolute Neutrophils Absolute Lymphocytes Absolute Monocytes Absolute Eosinophils Absolute Basophils Differential Comment RBC Morphology Sodium Potassium Chloride Carbon Dioxide Anion Gap BUN Creatinine Estimated GFR/1.73 m2 Glucose Calcium Urine Color Yellow Urine Clarity Clear Urine pH 7.0 Ur Specific [place] 1.020 Urine Protein 30 H Urine Ketones Negative Urine Blood Negative Urine Nitrite Negative Urine Bilirubin Negative Urine Urobilinogen 0.2 Ur Leukocyte Esterase Moderate H Urine RBC 0-2 Urine WBC 20-50 H Ur Epithelial Cells Rare Urine Crystals Negative Urine Bacteria Few Urine Casts Negative Urine Mucus Trace Ur Culture Indicated? Yes Urine Glucose Negative COVID-19 PCR Nasopharyn COVID-19 PCR Ref Test Perform Site Preliminary micro results at discharge 04/24/20 10:30 Urine Culture - Preliminary Urine - Reflex from Ua 04/22/20 08:55 Blood Culture - Preliminary Blood NO GROWTH 48 HOURS 04/22/20 08:50 Blood Culture - Preliminary Blood NO GROWTH 48 HOURS [facility] Medical History Acidosis, lactic (Resolved) Acute thrombosis of right basilic vein (Inactive) Adrenal hyperplasia (Inactive) [place] (acute kidney injury) (Resolved) Complication associated with peripherally inserted central catheter (PICC) (Inactive) Constipation, chronic (Chronic) COPD (chronic obstructive pulmonary disease) (Chronic) Diabetes mellitus (Chronic) GERD (gastroesophageal reflux disease) (Chronic) H/O schizophrenia (Acute) H/O: CVA (cerebrovascular accident) (Acute) Hypertension (Chronic) MSSA bacteremia (Inactive) Non-insulin dependent type 2 diabetes mellitus (Chronic) Normocytic anemia (Inactive) Oropharyngeal dysphagia (Acute) Pneumonia (Inactive) Pulmonary emboli (Inactive) Schizo affective schizophrenia (Chronic) Sepsis (Resolved) Family History Mother No problems noted. Social History Smoking/Tobacco Use Status: Former Tobacco Use Tobacco: How many years used: 43 Alcohol Intake: former Drug use: Occasionally Substance use type: marijuana Do you feel safe at home: Yes Do you feel safe in your relationship?: Yes
--- NOTE | 2020-04-25 10:52 | DM INPTCON_ITS ---
Date of service: 04/25/20 Time of Service: 10:52 Diabetes Inpatient Consult DESCRIPTION/ASSESSMENT: 64 year old male admitted with UTI, sepsis and dehydration. PMH: shizo affective disorder, NIDDM, hx of dysphagia s/p CVA. Following Diabetic Diet with regular texture without difficulty, po intake > 75% of meals. Home meds include metformin 1000 mg qd. No recent Hem A1C. Fasting sugars in house ranging from 135-168 mg/dl. Met with Clement today. He reports good glycemic control with metformin. Weight has been stable since last hospitalization and appetite excellent. Appears well nourished. Has workable knowledge diabetic diet principles for glycemic control. INTERVENTION: Provided education on DM including Hyper/hypoglycemia s/s with action plan for each scenario. Definition and types of CHO with examples, CHO counting, DASH diet materials, DM meal planning and label reading literature. Provided a blood sugar and food record chart and materials to reiterate CHO counting techniques. Reviewed desirable BG levels with patient with food choices and portions for optimal outcomes. Provided contact information for this RD and encouraged to call with any f/u questions r/t to DM self management. CDM from kitchen has been helping to count CHO's and achieve intake of ~65g/CHO per meal period. PLAN: Continue current meal plan, [place] to follow up with feature writer in outpatient setting if needs further assistance with diet/diabetes management. Time Spent in Nutritional Counseling and Treatment: 10 min
--- NOTE | 2020-04-25 13:56 | PGE_ITS ---
Date of Service Date of service: 04/25/20 Time of Service: 13:56 Assessment and Plan Assessment and plan (1) UTI (urinary tract infection): Start date: 04/25/20 Start time: 13:57 Status: Acute Assessment and plan: Urine cx with e.coli, pansensitive. Sensitive to cephlaspornins, BC NGTD at this time. WBC normalized. Day , Recommend treating for 5 days due to sepsis syndrome transition to PO ceftin for a total of 5 days Possible discharge pending covid Qualifiers: Hematuria presence: without hematuria Urinary tract infection type: site unspecified Qualified Code(s): N39.0 - Urinary tract infection, site not specified (2) Sepsis syndrome: Start date: 04/25/20 Start time: 14:02 Status: Resolved Assessment and plan: Resolved with aggressive IV hydration (3) Acute dehydration: Start date: 04/25/20 Start time: 14:02 Status: Resolved Assessment and plan: Resolved after aggressive hydration (4) Leukocytosis: Start date: 04/25/20 Start time: 14:02 Status: Resolved Assessment and plan: Severe leukocytosis in setting of infection which usually tends to happen quickly when he presents with infection, will treat for a total 5 days Qualifiers: Leukocytosis type: bandemia Qualified Code(s): D72.825 - Bandemia (5) COPD (chronic obstructive pulmonary disease): Start date: 04/25/20 Start time: 14:02 Status: Chronic Assessment and plan: Not exacerbated at this time, continue monitoring. (6) Schizo affective schizophrenia: Start date: 04/25/20 Start time: 14:02 Status: Chronic Assessment and plan: Well controlled with medications, continue medication (7) Non-insulin dependent type 2 diabetes mellitus: Start date: 04/25/20 Start time: 14:02 Status: Chronic Assessment and plan: controlled with metformin at home. Will hold and place on SSI while in the hospital. (8) DVT prophylaxis: Start date: 04/25/20 Start time: 14:02 Status: Acute Assessment and plan: On apixaban for history of PE. Will continue apixaban dosing. (9) Discharge planning issues: Start date: 04/25/20 Start time: 14:02 Status: Acute Assessment and plan: Will return to house when medically ready above case discussed with Dr. Chakraborty who is in agreement. Subjective Subjective Patient reports: no new complaints Interval history since last seen: Doing well, BM today. No dizziness. Ready to go home. COVID test pending. Exam Narrative Exam Narrative: General: Patient appears appropriate for age, sitting up on side of the bed HEENT: Normocephalic, eyes with pupils equal and reactive light symmetrically, extraocular movement intact and sclera anicteric. Oropharynx with moist mucosa orientation. External ears normal. Neck: Supple without JVD. Lungs: Fair aeration and clear to auscultation and percussion. Heart: Regular rate and rhythm with 2/6 holosystolic murmur apex. No rub or gallop. Abdomen: Protuberant and obese contour, soft with no focalizing tenderness and no palpable hepatosplenomegaly. BSx4 quads Extremities: Without clubbing, cyanosis or pitting edema. Skin: Normal skin turgor No rashes. Neuro: Cranial nerves II to XII gross intact, no focal motor deficits. Objective Objective Clinical Data: Abnormal lab results 04/25/20 04/25/20 Range/Units 06:10 06:10 RBC 3.88 L (4.50-6.00) m/cumm Hgb 11.3 L (13.5-17.5) g/dL Hct 34.3 L (40.0-50.0) % RDW 15.8 H (11.8-14.1) % Absolute Monocytes 1.16 H (0.11-0.7) k/cumm Glucose 139 H (74-106) mg/dL Vital Signs Temperature 36.8 C 04/25/20 07:37 Temperature Source Tympanic 04/25/20 07:37 Pulse 80 04/25/20 07:37 Pulse Rhythm Regular 04/25/20 08:29 Respiratory Rate 20 04/25/20 07:37 Respiratory Effort Non-Labored 04/25/20 08:29 Respiratory Depth Normal 04/25/20 08:29 Respiratory Pattern Normal 04/25/20 08:29 Blood Pressure 131/79 04/25/20 07:37 Blood Pressure Mean 80 04/21/20 21:46 Blood Pressure Position Sitting 04/21/20 17:11 Pulse Oximetry 93 L 04/25/20 07:37 Oxygen Delivery Method Room Air 04/25/20 07:37 Oxygen Flow Rate 0 04/25/20 07:37 Pain Level 0 04/25/20 07:37 Comment 04/24/20 07:18 Intake & Output 04/24/20 04/25/20 04/25/20 23:59 11:59 23:59 Intake Total 120 / 170 Output Total 350 / 1550 Balance -230 / -1380 Weight 63.6 kg Intake: Oral 120 / 120 Output: Urine 350 / 1550 Other: Urine Color Yellow Urine Appearance Clear Clear Urine Odor Normal Stool Size Large Stool Characteristics Soft Formed Voiding Methods Toilet Laboratory Results WBC 7.75 k/cumm (4.4-10.8) 04/25/20 06:10 RBC 3.88 m/cumm (4.50-6.00) L 04/25/20 06:10 Hgb 11.3 g/dL (13.5-17.5) L 04/25/20 06:10 Hct 34.3 % (40.0-50.0) L 04/25/20 06:10 MCV 88.4 fL (80-95) 04/25/20 06:10 MCH 29.1 pg (27.0-33.0) 04/25/20 06:10 MCHC 32.9 g/dL (32.0-36.0) 04/25/20 06:10 RDW 15.8 % (11.8-14.1) H 04/25/20 06:10 Plt Count 328 x1000/uL (130-400) 04/25/20 06:10 MPV 9.7 fL (8.0-11.0) 04/25/20 06:10 Immature Gran % See Differential 04/25/20 06:10 Neutrophils % 64.0 04/25/20 06:10 Lymphocytes % 14.0 04/25/20 06:10 Atypical Lymphs % 3 04/25/20 06:10 Monocytes % 15.0 04/25/20 06:10 Eosinophils % 3.0 04/25/20 06:10 Basophils % 0.0 04/25/20 06:10 Metamyelocytes % 1.0 % 04/25/20 06:10 Absolute Neutrophils 4.96 k/cumm (1.2-6.7) 04/25/20 06:10 Absolute Lymphocytes 1.32 k/cumm (1.2-3.4) 04/25/20 06:10 Absolute Monocytes 1.16 k/cumm (0.11-0.7) H 04/25/20 06:10 Absolute Eosinophils 0.23 k/cumm (0.0-0.7) 04/25/20 06:10 Absolute Basophils 0.00 k/cumm (0.0-0.2) 04/25/20 06:10 Differential Comment Manual differential 04/25/20 06:10 RBC Morphology Normal 04/25/20 06:10 PT 11.6 sec (9.3-11.0) H 04/21/20 17:40 INR 1.2 (0.9-1.1) H 04/21/20 17:40 APTT 52.9 sec (21.0-31.4) H 04/21/20 17:40 Sodium 142 mmol/L (136-145) 04/25/20 06:10 Potassium 3.7 mmol/L (3.5-5.1) 04/25/20 06:10 Chloride 105 mmol/L (98-107) 04/25/20 06:10 Carbon Dioxide 28.7 mmol/L (21.0-32.0) 04/25/20 06:10 Anion Gap 8.3 mmol/L (3-11) 04/25/20 06:10 BUN 11 mg/dL (7-18) D 04/25/20 06:10 Creatinine 0.81 mg/dL (0.70-1.30) 04/25/20 06:10 Estimated GFR/1.73 m2 >= 60.00 (mL/min/1.73m2) 04/25/20 06:10 Glucose 139 mg/dL (74-106) H 04/25/20 06:10 Lactate 1.1 mmol/L (0.6-1.4) 04/22/20 08:50 Calcium 8.7 mg/dL (8.5-10.1) 04/25/20 06:10 Magnesium 1.8 mg/dL (1.8-2.4) 04/23/20 06:35 Total Bilirubin 0.3 mg/dL (0.2-1.0) 04/22/20 05:30 AST 17 U/L (15-37) 04/22/20 05:30 ALT 17 U/L (16-63) 04/22/20 05:30 Alkaline Phosphatase 91 U/L (46-116) 04/22/20 05:30 Troponin I < 0.05 ng/mL (<0.06) 04/21/20 17:40 Total Protein 6.2 g/dL (6.4-8.2) L 04/22/20 05:30 Albumin 2.8 g/dL (3.4-5.0) L 04/22/20 05:30 Procalcitonin 0.4 ng/mL 04/22/20 05:30 Urine Color Yellow (Yellow) 04/24/20 10:30 Urine Clarity Clear (Clear) 04/24/20 10:30 Urine pH 7.0 (5-8) 04/24/20 10:30 Ur Specific [place] 1.020 (1.005-1.025) 04/24/20 10:30 Urine Protein 30 mg/dL (Negative) H 04/24/20 10:30 Urine Ketones Negative mg/dL (Negative) 04/24/20 10:30 Urine Blood Negative (Negative) 04/24/20 10:30 Urine Nitrite Negative (Negative) 04/24/20 10:30 Urine Bilirubin Negative (Negative) 04/24/20 10:30 Urine Urobilinogen 0.2 EU/dL (Up TO 0.2) 04/24/20 10:30 Ur Leukocyte Esterase Moderate (Negative) H 04/24/20 10:30 Urine RBC 0-2 HPF (0-2) 04/24/20 10:30 Urine WBC 20-50 HPF (0-5) H 04/24/20 10:30 Ur Epithelial Cells Rare HPF (Negative) 04/24/20 10:30 Urine Crystals Negative HPF (Negative) 04/24/20 10:30 Urine Bacteria Few HPF (Negative) 04/24/20 10:30 Urine Casts Negative LPF (Negative) 04/24/20 10:30 Urine Mucus Trace (Negative) 04/24/20 10:30 Ur Culture Indicated? Yes 04/24/20 10:30 Urine Glucose Negative mg/dL (Negative) 04/24/20 10:30 COVID-19 PCR Negative (Negative) 04/21/20 20:57 Nasopharyn COVID-19 PCR Not Applicable 04/21/20 20:57 Ref Test Perform Site [facility] 04/21/20 20:57
[2020-04-25 15:24] VITALS: BP 126/77; PULSE 96; RESP 18; TEMP 36.6; O2SAT 97
--- NOTE | 2020-04-25 15:37 | CMDISCH_ITS ---
- If Service Date Differs Date of service: 04/25/20 Time of Service: 15:38 LACE Index Scoring Tool - Questions: Length of Stay (in days): 4 - 6 Acuity (Admit via E.D.?): Yes Comorbidities: Cerebrovascular Disease, Diabetes w/o Complication, Chronic Pulmonary Disease E.D. Visits: 2 - Answers: Total Score: 14 Risk of Readmission: High Risk Care Management Discharge Reason for Hospitalization: Uti Discharge Plan: Elias will return to [place] where he resides when medically cleared. He will folllow up with his PCP and discharge plan of care. 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 Patient/Family Education Needs: [id number] plan, limitations, follow up plan, Ask Me Three.
[2020-04-26 19:58] LABS: COVID-19 RT-PCR Result Not Detected ((See Note))
== END 2020-04-25 16:37 | disposition home or self-care (01) | DRG 872 ==
LOC: ER 20:08 → MS 22:28
PROVIDERS: Nurse Practitioner Family; Admitting Provider Family Medicine; Emergency Provider Physician Assistant; PCP Nurse Practitioner Family; Visit Provider Family Medicine
DX: A41.9 Sepsis, unspecified organism (principal); N39.0 Urinary tract infection, site not specified; Z86.73 Personal history of transient ischemic attack (TIA), and cerebral infarction without residual deficits; J44.9 Chronic obstructive pulmonary disease, unspecified; E11.9 Type 2 diabetes mellitus without complications; K21.9 Gastro-esophageal reflux disease without esophagitis; F20.9 Schizophrenia, unspecified; R33.9 Retention of urine, unspecified; R31.9 Hematuria, unspecified; R13.12 Dysphagia, oropharyngeal phase; Z86.718 Personal history of other venous thrombosis and embolism; K59.09 Other constipation; I10 Essential (primary) hypertension; Z86.711 Personal history of pulmonary embolism; Z87.891 Personal history of nicotine dependence; E86.0 Dehydration; D72.825 Bandemia; Z79.84 Long term (current) use of oral hypoglycemic drugs; B96.20 Unspecified Escherichia coli [E. coli] as the cause of diseases classified elsewhere
CPT/HCPCS: 36410; 36415; 74177; 80048; 80053; 84145; 85027; 87040; 87077; 87081; 93005; 94640; 96361; 96365; 96367; 97161; 99223; 99233; 99239; 99285; U0003; 70450; 71260; 81003; 81015; 83605; 83735; 84484; 85025; 85610; 85730; 87086; 87186; 93010; J0696; J3475; J3490

== ENCOUNTER 2020-05-03 01:25 | Outpatient (CLI) | payer MEDICARE, MEDICAID, SELFPAY ==
[2020-05-03 10:01] LABS: Abs Immature Grans 0.94 10^3/uL (0.0-0.06); HCT 38.2 % (40.0-50.0); HGB 12.4 g/dL (13.5-17.5); MCH 29.3 pg (27.0-33.0); MCHC 32.5 % (32.0-36.0); MCV 90.3 fL (80-95); MPV 9.7 fL (8.0-11.0); Platelet Count 340 10^3/uL (130-400); RBC 4.23 10^6/uL (4.36-5.78); RDW 15.7 % (11.8-14.1); RDW-SD 51.5 fL
[2020-05-03 10:42] LABS: WBC 51.89 10^3/uL (4.4-10.8)
[2020-05-03 10:43] LABS: Absolute Lymphocyte Count 1.04 10^3/uL (1.2-3.4); Absolute Monocyte Count 2.08 10^3/uL (0.1-0.8); Absolute Neutrophil Count 47.74 10^3/uL (1.2-6.7); Bands % 5; Metamyelocytes % 1
[2020-05-03 10:44] LABS: Diff Comment Manual Differential; Myelocytes % 1; RBC Morphology Normal
== END 2020-05-03 01:45 ==
PROVIDERS: PCP Nurse Practitioner Family; Visit Provider Nurse Practitioner Psychiatric/Mental Health
DX: F20.9 Schizophrenia, unspecified (principal)
CPT/HCPCS: 36415; 85025

== ENCOUNTER 2020-05-03 13:19 | Inpatient (IN) | payer MEDICARE, MEDICAID, SELFPAY ==
[2020-05-03] VITALS (16 sets, daily range): BP systolic 96–135; BP diastolic 50–71; PULSE 86–98; RESP 4–33; TEMP 36.2–36.6; O2SAT 91–98
--- NOTE | 2020-05-03 13:30 | DI.CT_ITS ---
EXAM: CT CHEST PE CTA CLINICAL HISTORY: shortness of breath TECHNIQUE: COMPARISON: CT CT CHEST/ABD/PEL W from 04/21/2020 FINDINGS: CT angiography of the chest was performed with bolus infusion of 61 cc of Omnipaque 350. Images obtained through the upper abdomen show unremarkable appearance of visualized portions liver, pancreas, adrenals, and kidneys with mild bilateral adrenal hypertrophy. Spleen contains multiple calcified granulomas. There is no evidence of pulmonary embolic disease. Thoracic aorta and major branches appear intact. No mediastinal or hilar adenopathy. Tracheobronchial tree appears intact. There are dense patchy areas of consolidation involving the right upper and lower lobes and to a less er degree the middle lobe. Multiple small patchy foci of consolidation/ground-glass density are also seen in all pulmonary lobes. The findings are new since prior CT of April 21, the findings are hig hly suggestive of an acute multifocal pneumonia. No pleural effusion seen. No pneumothorax. IMPRESSION: Findings highly suggestive of an acute multifocal pneumonia. No evidence of pulmonary embolic diseas e.
--- NOTE | 2020-05-03 13:42 | ED.GENADUL_ITS ---
Discharge Plan Disposition Patient Disposition: [facility] INPATIENT Condition: Stable Discharge Details Chief Complaint: SOB Clinical Impression: HCAP (healthcare-associated pneumonia) Primary Care Provider: Columba Carter ED Provider: Armando Bailey Home Meds and New Rx's Prescriptions: No Action ferrous gluconate 324 mg (38 mg iron) tablet 324 mg PO DAILY RF: 0 pioglitazone [Actos] 30 mg tablet 30 mg PO DAILY RF: 0 simvastatin 20 mg tablet 20 mg PO QHS RF: 0 Anoro Ellipta 62.5-25 mcg/actuation blister with device 1 inh IH DAILY RF: 0 bupropion HCl [Wellbutrin XL] 300 mg tablet extended release 24 hr 300 mg PO QAM RF: 0 calcium carbonate 200 mg calcium (500 mg) Tablet,Chewable 500 mg PO TID PRN PRNQty: 0 RF: 0 alum-mag hydroxide-simeth [Mag-Al Plus] 200-200-20 mg/5 mL Suspension 30 ml PO Q2H PRN PRNQty: 0 RF: 0 Eliquis 5 mg Tablet 5 mg PO BID Qty: 60 RF: 0 multivitamin [Multiple Vitamins] Tablet 1 tab PO DAILY Qty: 30 RF: 0 cyanocobalamin (vitamin B-12) [Vitamin B-12] 500 mcg Tablet 1,000 mcg PO DAILY Qty: 60 RF: 0 pantoprazole 40 mg Tablet,Delayed Release (Dr/Ec) 40 mg PO BID@0730,1999 Qty: 30 RF: 0 docusate sodium [Colace] 100 mg Capsule 100 mg PO DAILY Qty: 30 RF: 0 folic acid 1 mg Tablet 1 mg PO DAILY Qty: 30 RF: 0 magnesium chloride [Mag 64] 64 mg Tablet,Delayed Release (Dr/Ec) 64 mg PO BID Qty: 30 RF: 0 metformin 1,000 mg Tablet 1,000 - 1,500 mg PO DIRECTED RF: 0 cholecalciferol (vitamin D3) [Vitamin D3] 50 mcg (2,000 unit) capsule 1,000 unit PO DAILY RF: 0 hydroxyzine pamoate 25 mg capsule 25 mg PO TID RF: 0 ibuprofen 200 mg Tablet 200 mg PO PRN PRNRF: 0 acetaminophen [Tylenol Arthritis Pain] 650 mg Tablet Extended Release 650 mg PO BID PRNRF: 0 acetaminophen [Tylenol Extra Strength] 500 mg Tablet 1,000 mg PO Q8H PRNRF: 0 polyethylene glycol 3350 17 gram/dose powder 17 g PO DAILY PRN PRNRF: 0 cefpodoxime 200 mg Tablet 200 mg PO BID@1000,2200 Qty: 4 RF: 0 ziprasidone HCl [Geodon] 80 MG capsule 80 - 160 mg PO DIRECTED RF: 0 clozapine [Clozaril] 100 MG tablet 200 - 375 mg PO DIRECTED RF: 0 Flovent HFA 120 PUFF HFA aerosol inhaler 2 puff Inhalation BID RF: 0 ascorbic acid (vitamin C) [Vitamin C] 500 mg Tablet 500 mg PO DAILY Qty: 30 RF: 0 albuterol sulfate [Ventolin HFA] 90 mcg/actuation Hfa Aerosol Inhaler 2 puff inhalation Q4H PRN PRNQty: 18 RF: 0 Medical Decision Making 64 y.o male PMH NIDDM, COPD GERD, HTN, schizophrenia, former smoker, who was admitted at the end of march with sepsis secondary to uti and initially had a wbc of 40 that resolved. He states last night started to have shortness of breath and improved with home albuterol but still has some lightheadedness symptoms and mild shortness of breath. HAd a cbc done as outpatient showing wbc over 50 so was sent here. Denies fevers, chest pain, cough, n/v, abd pain, dysuria or difficulty urinating. Has wheezing at the bases bilaterally otherwise clear lungs no jvd no lower extremity swelling. Suspect component of copd, will tx with albuterol and steroids and reassess. Wells score is moderate so will obtain CTA to eval for pe and also evaluate for pna. No chest pain or pressure so doubt acs. HAd a negative covid19 test when admitted here and no travel or sick contacts so doubt covid19 at this time. labs show wbc over 50 and lactate 3.0, remains hd stable, ct shows no PE but does have multifocal pneumonia. Will admit given leukocytosis, elevated lactate and needs coverage for hcap Differential Diagnosis Differential Diagnosis: copd, pna, pe Medical Records Medical records reviewed: Yes I reviewed the patient's medical records. Imaging Data Radiologic Study: Attestation: I personally reviewed and interpreted this imaging study as follows: Imaging: CT Scan Radiologist's impression: IMPRESSION: Findings highly suggestive of an acute multifocal pneumonia. No evidence of pulmonary embolic disease Lab Data Lab results reviewed: Yes I reviewed the patient's lab results. ECG Data Attestation: I personally reviewed and interpreted this ECG (s) as follows: Prior ECG tracings: not available for review Interpretation: sinus rhythm, rate of 88, pr 155, no acute st t wave ischemic findings HPI General Mode of arrival: ambulatory . Date/Time Provider Initiated Documentation: 05/03/20 13:23 . Limitations to Documentation: no limitations . Information obtained by: patient . History of Present Illness 64 year old M presents to the emergency department with the chief complaint of shortness of breath, described as moderate, and it has been intermittent. No relieving factors improve symptom(s), No exacerbating factors reported . Patient did receive the following treatments prior to arrival, none Related Data Home Medications Medication Instructions Recorded Confirmed Flovent HFA 2 puff INHALATION BID 06/18/17 05/03/20 clozapine [Clozaril] 200 - 375 mg PO DIRECTED 06/18/17 05/03/20 ziprasidone HCl [Geodon] 80 - 160 mg PO DIRECTED 06/18/17 05/03/20 alum-mag hydroxide-simeth [Mag-Al 30 ml PO Q2H PRN PRN #0 ml 12/05/18 05/03/20 Plus] calcium carbonate 500 mg PO TID PRN PRN #0 tab 12/05/18 04/21/20 Eliquis 5 mg PO BID #60 tab 01/23/19 05/03/20 cyanocobalamin (vitamin B-12) 1,000 mcg PO DAILY #60 tab 01/23/19 05/03/20 [Vitamin B-12] docusate sodium [Colace] 100 mg PO DAILY #30 cap 01/23/19 05/03/20 folic acid 1 mg PO DAILY #30 tab 01/23/19 05/03/20 magnesium chloride [Mag 64] 64 mg PO BID #30 tab 01/23/19 05/03/20 multivitamin [Multiple Vitamins] 1 tab PO DAILY #30 tab 01/23/19 05/03/20 pantoprazole 40 mg PO BID@0730,2000 #30 tab 01/23/19 05/03/20 bupropion HCl 300 mg 24 hr tablet, 300 mg PO QAM 08/14/19 05/03/20 extended release ferrous gluconate 324 mg (38 mg 324 mg PO DAILY 08/14/19 05/03/20 iron) tablet pioglitazone 30 mg tablet 30 mg PO DAILY 08/14/19 05/03/20 simvastatin 20 mg tablet 20 mg PO QHS 08/14/19 05/03/20 umeclidinium 62.5 mcg-vilanterol 1 inh IH DAILY 08/14/19 05/03/20 25 mcg/actuation powdr for inhalation metformin 1,000 - 1,500 mg PO DIRECTED 12/24/19 05/03/20 albuterol sulfate [Ventolin HFA] 2 puff INHALATION Q4H PRN PRN #18 02/07/20 05/03/20 gm NS ascorbic acid (vitamin C) [Vitamin 500 mg PO DAILY #30 tab 02/07/20 05/03/20 C] acetaminophen [Tylenol Arthritis 650 mg PO BID PRN 04/21/20 05/03/20 Pain] acetaminophen [Tylenol Extra 1,000 mg PO Q8H PRN 04/21/20 05/03/20 Strength] cholecalciferol (vitamin D3) 1,000 unit PO DAILY 04/21/20 05/03/20 [Vitamin D3] hydroxyzine pamoate 25 mg PO TID 04/21/20 05/03/20 ibuprofen 200 mg PO PRN PRN 04/21/20 05/03/20 cefpodoxime 200 mg PO BID@1000,2200 #4 tab 04/25/20 05/03/20 polyethylene glycol 3350 17 g PO DAILY PRN PRN 04/25/20 05/03/20 Previous Rx's Medication Instructions Recorded alum-mag hydroxide-simeth [Mag-Al 30 ml PO Q2H PRN PRN #0 ml 12/05/18 Plus] calcium carbonate 500 mg PO TID PRN PRN #0 tab 12/05/18 Eliquis 5 mg PO BID #60 tab 01/23/19 cyanocobalamin (vitamin B-12) 1,000 mcg PO DAILY #60 tab 01/23/19 [Vitamin B-12] docusate sodium [Colace] 100 mg PO DAILY #30 cap 01/23/19 folic acid 1 mg PO DAILY #30 tab 01/23/19 magnesium chloride [Mag 64] 64 mg PO BID #30 tab 01/23/19 multivitamin [Multiple Vitamins] 1 tab PO DAILY #30 tab 01/23/19 pantoprazole 40 mg PO BID@0730,1999 #30 tab 01/23/19 albuterol sulfate [Ventolin HFA] 2 puff INHALATION Q4H PRN PRN #18 02/07/20 gm NS ascorbic acid (vitamin C) [Vitamin 500 mg PO DAILY #30 tab 02/07/20 C] cefpodoxime 200 mg PO BID@1000,2200 #4 tab 04/25/20 Allergies Allergy/AdvReac Type Severity Reaction Status Date / Time No Known Allergies Allergy Unverified 05/03/20 13:32 General Stated Complaint: SOB KENYON: 2 Review of Systems All systems reviewed & are unremarkable except as noted in HPI and below Constitutional Constitutional: Denies chills, Denies fever(s) and Denies weakness Cardiovascular Cardiovascular: Denies chest pain Respiratory Respiratory: Denies cough Gastrointestinal Gastrointestinal: Denies abdominal pain, Denies nausea and Denies vomiting Musculoskeletal Musculoskeletal: Denies joint swelling Neurologic Neurologic: Denies weakness Psychiatric Psychiatric: Denies depression [facility] Medical History (Updated 05/03/20 @ 14:57 by Armando Bailey MD) Acidosis, lactic (Resolved) Acute thrombosis of right basilic vein (Inactive) Adrenal hyperplasia (Inactive) [place] (acute kidney injury) (Resolved) Complication associated with peripherally inserted central catheter (PICC) (Inactive) Constipation, chronic (Chronic) COPD (chronic obstructive pulmonary disease) (Chronic) Diabetes mellitus (Chronic) GERD (gastroesophageal reflux disease) (Chronic) H/O schizophrenia (Acute) H/O: CVA (cerebrovascular accident) (Acute) Hypertension (Chronic) MSSA bacteremia (Inactive) Non-insulin dependent type 2 diabetes mellitus (Chronic) Normocytic anemia (Inactive) Oropharyngeal dysphagia (Acute) Pneumonia (Inactive) Pulmonary emboli (Inactive) Schizo affective schizophrenia (Chronic) Sepsis (Resolved) Family History Mother No problems noted. Social History Smoking/Tobacco Use Status: Former Tobacco Use Tobacco: How many years used: 43 Alcohol Intake: former Drug use: Occasionally Substance use type: marijuana Do you feel safe at home: Yes Do you feel safe in your relationship?: Yes Exam Const General: no acute distress Orientation: alert HENMT Head: normal to inspection Ears: external ears normal General nose exam: external nose normal Mouth: moist mucous membranes Eyes General: appearance normal, both eyes and all related structures Neck Neck: normal visual inspection Resp Effort & Inspection: normal respiratory effort and able to speak in complete sentences Cardio Rate: regular rate Skin General skin exam: no rashes or lesions noted Neuro General: patient alert and patient oriented x3 Extrem General: normal to inspection Psych Mental Status: mental status grossly normal Course Vital Signs Vital signs: Vital Signs Temperature 36.6 C 05/03/20 13:28 Pulse 97 H 05/03/20 13:28 Respiratory Rate 26 H 05/03/20 13:28 Blood Pressure 106/60 05/03/20 13:28 Pulse Oximetry 93 L 05/03/20 13:28 Temperature 36.6 C 05/03/20 13:28 Temperature Source Skin 05/03/20 13:28 Pulse 97 H 05/03/20 13:28 Respiratory Rate 26 H 05/03/20 13:28 Respiratory Effort Non-Labored 05/03/20 13:28 Blood Pressure 106/60 05/03/20 13:28 Blood Pressure Position Supine 05/03/20 13:28 Pulse Oximetry 93 L 05/03/20 13:28 Oxygen Delivery Method Room Air 05/03/20 13:28 Oxygen Flow Rate 0 05/03/20 13:28 Pain Level 4 05/03/20 13:28 Lab/Test Results Lab/Test Results: 05/03/20 13:33 Urine - Clean Catch Urine Culture - Pending 05/03/20 13:26 Blood Blood Culture - Pending 05/03/20 13:26 Blood Blood Culture - Pending
[2020-05-03] MEDS: Albuterol/Ipratropium 3 ML UPD VIAL UPD (13:45)
--- NOTE | 2020-05-03 13:45 | RT.EKG_ITS ---
APPROVED REPORT Exam: Resting ECG Patient Location: E HR:88 bpm ECG Measurements Heart Rate 88 AXIS NV 155 P 60 QRSd 102 QRS -36 QT 400 T 56 QTc 485 <Conclusion> Sinus rhythm...normal P axis, V-rate 60- 99 Left axis deviation...QRS axis (-30,-90) Anteroseptal infarct, old...Q >40mS, V1-V2
[2020-05-03 14:02] LABS: HCO3 (Venous) 23 mmol/L (22-28); O2 Sat (Venous) 74 % (70-80); TCO2 (Venous) 21 mmol/L (22-29); pCO2 (Venous) 39 mm/Hg (34-47); pH (Venous) 7.38 (7.35-7.45); pO2 (Venous) 41 mm/Hg (28-44)
[2020-05-03] MEDS: methylPREDNISolone SUCC 125 MG VIAL IVP (14:02)
[2020-05-03] MEDS: Normal Saline 1,000 ML 1000 ML IV (14:15)
[2020-05-03 14:21] LABS: INR 1.1 (0.9-1.1); PTT Activated 51.2 sec (21.0-31.4); Prothrombin Time 11.2 sec (9.3-11.0)
[2020-05-03 14:25] LABS: ALT 17 U/L (16-63); AST 10 U/L (15-37); Albumin 3.2 g/dL (3.4-5.0); Alkaline Phosphatase 80 U/L (46-116); BUN 20 mg/dL (7-18); Bilirubin, Direct 0.11 mg/dL (0.00-0.20); Bilirubin, Total 0.3 mg/dL (0.2-1.0); CREATININE 1.35 mg/dL (0.70-1.30); Calcium 8.5 mg/dL (8.5-10.1); Chloride 98 mmol/L (98-107); Estimated GFR 52.88 (mL/min/1.73m2); Glucose 181 mg/dL (74-106); Lipase 39 U/L (73-393); Magnesium 1.7 mg/dL (1.8-2.4); Potassium 4.8 mmol/L (3.5-5.1); Sodium 133 mmol/L (136-145); Total Protein 6.7 g/dL (6.4-8.2)
[2020-05-03 14:31] LABS: Troponin I < 0.05 ng/mL (<0.06)
[2020-05-03 14:32] LABS: NT-proBNP 231 pg/mL (<300)
[2020-05-03] MEDS: Normal Saline - Diluent 50 ML VIAL IV (14:35)
[2020-05-03] MEDS: Omnipaque 350 MG/ML 100 ML BTL IJ (14:35)
[2020-05-03] MEDS: Normal Saline Flush 10 ML SYR IVP ×2 (14:36→17:24)
[2020-05-03 14:40] LABS: HCT 36.7 % (40.0-50.0); HGB 11.8 g/dL (13.5-17.5); MCH 29.1 pg (27.0-33.0); MCHC 32.2 % (32.0-36.0); MCV 90.6 fL (80-95); MPV 10.1 fL (8.0-11.0); Nucleated RBC 0 %; Platelet Count 335 10^3/uL (130-400); RBC 4.05 10^6/uL (4.36-5.78); RDW 15.6 % (11.8-14.1); RDW-SD 51.7 fL
[2020-05-03 14:44] LABS: Absolute Lymphocyte Count 1.14 10^3/uL (1.2-3.4); Absolute Monocyte Count 2.29 10^3/uL (0.1-0.8); Bands % 13; Diff Comment Manual Differential; Myelocytes % 1; RBC Morphology Normal
[2020-05-03 14:49] LABS: Procalcitonin 7.5 ng/mL
[2020-05-03] MEDS: PIPERACILLIN/TAZO 4.5 GM in Normal Saline 100 ML IVPB (15:05)
[2020-05-03] MEDS: VANCOMYCIN 1,000 MG in Normal Saline 250 ML 166.6666 MG IVPB (15:05)
[2020-05-03 15:55] LABS: Bilirubin Negative (Negative); Blood Negative (Negative); Clarity Clear (Clear); Glucose Negative (Negative); Ketones Negative (Negative); Leukocyte Esterase Negative (Negative); Nitrite Negative (Negative); Urobilinogen 0.2 EU/dL (Up TO 0.2)
--- NOTE | 2020-05-03 16:25 | HPE_ITS ---
Date of service: 05/03/20 Time of Service: 16:25 Assessment and Plan Assessment and plan (1) HCAP (healthcare-associated pneumonia): Status: Acute Assessment and plan: Multifocal PNA Elevated Procalcitonin and WBC count. Recent hospitalization and lives in nursing facility. Zosyn and Vancomycin initiated. (2) COPD (chronic obstructive pulmonary disease): Status: Chronic Assessment and plan: No acute exacerbation Prn albuterol (3) Schizo affective schizophrenia: Status: Chronic Assessment and plan: Cont Clozapine and Ziprasidone. No behavioral disturbance (4) Hypertension: Status: Chronic Assessment and plan: Controlled on no antihypertensives. Monitor. Qualifiers: Hypertension type: essential hypertension Qualified Code(s): I10 - Essential (primary) hypertension (5) H/O: CVA (cerebrovascular accident): Status: Acute Assessment and plan: Cont Eliquis and Statin (6) Non-insulin dependent type 2 diabetes mellitus: Status: Chronic Assessment and plan: Hold piaglitazone. SS insulin corrective dose ACHS May have elevations d/t IV steroid given in ED. Will try to avoid further steroids; no COPD exacerbation at this time. History of Present Illness History of Present Illness Chief Complaint: Shortness of air Narrative: This is a 64 yo male with a PMH of COPD, NIDDM, GERD, HTN, schizophrenia, former to bacco use. He is s/p admission to [facility] from 04/22/2020 to 04/25/2020 for sepsis secondary to UTI. He presented now with SOA that began the night prior. This improved with albuterol. He also endorses feeling weak and lightheaded. Outpt lab drawn and his WBC count was over 50 so he was sent to the ED. No F/C, N/V/abd pain/pelvic pain, dysuria, urinary frequency. In the ED he was noted to have bibasilar wheezes. Wells score was moderate so a CTA chest performed with findings of multifocal pneumonia. No pulmonary embolism. He was started on HCAP antibiotic coverage with Zosyn and Vancomycin. He is requiring no supplemental O2. Review of Systems All systems reviewed & are unremarkable except as noted in HPI and below PFSH Medical History Acidosis, lactic (Resolved) Acute thrombosis of right basilic vein (Inactive) Adrenal hyperplasia (Inactive) [place] (acute kidney injury) (Resolved) Complication associated with peripherally inserted central catheter (PICC) (Inactive) Constipation, chronic (Chronic) COPD (chronic obstructive pulmonary disease) (Chronic) Diabetes mellitus (Chronic) GERD (gastroesophageal reflux disease) (Chronic) H/O schizophrenia (Acute) H/O: CVA (cerebrovascular accident) (Acute) Hypertension (Chronic) MSSA bacteremia (Inactive) Non-insulin dependent type 2 diabetes mellitus (Chronic) Normocytic anemia (Inactive) Oropharyngeal dysphagia (Acute) Pneumonia (Inactive) Pulmonary emboli (Inactive) Schizo affective schizophrenia (Chronic) Sepsis (Resolved) Family History Mother No problems noted. Social History Smoking/Tobacco Use Status: Former Tobacco Use Tobacco: How many years used: 43 Alcohol Intake: former Drug use: Occasionally Substance use type: marijuana Do you feel safe at home: Yes Do you feel safe in your relationship?: Yes Meds Home Medications and Allergies Home Medications Medication Instructions Recorded Confirmed Type Flovent HFA 2 puff INHALATION BID 06/18/17 05/03/20 History clozapine [Clozaril] 200 - 375 mg PO DIRECTED 06/18/17 05/03/20 History ziprasidone HCl [Geodon] 80 - 160 mg PO DIRECTED 06/18/17 05/03/20 History alum-mag hydroxide-simeth [Mag-Al 30 ml PO Q2H PRN PRN #0 ml 12/05/18 05/03/20 Rx Plus] calcium carbonate 500 mg PO TID PRN PRN #0 tab 12/05/18 04/21/20 Rx Eliquis 5 mg PO BID #60 tab 01/23/19 05/03/20 Rx cyanocobalamin (vitamin B-12) 1,000 mcg PO DAILY #60 tab 01/23/19 05/03/20 Rx [Vitamin B-12] docusate sodium [Colace] 100 mg PO DAILY #30 cap 01/23/19 05/03/20 Rx folic acid 1 mg PO DAILY #30 tab 01/23/19 05/03/20 Rx magnesium chloride [Mag 64] 64 mg PO BID #30 tab 01/23/19 05/03/20 Rx multivitamin [Multiple Vitamins] 1 tab PO DAILY #30 tab 01/23/19 05/03/20 Rx pantoprazole 40 mg PO BID@0730,1999 #30 tab 01/23/19 05/03/20 Rx bupropion HCl 300 mg 24 hr tablet, 300 mg PO QAM 08/14/19 05/03/20 History extended release ferrous gluconate 324 mg (38 mg 324 mg PO DAILY 08/14/19 05/03/20 History iron) tablet pioglitazone 30 mg tablet 30 mg PO DAILY 08/14/19 05/03/20 History simvastatin 20 mg tablet 20 mg PO QHS 08/14/19 05/03/20 History umeclidinium 62.5 mcg-vilanterol 1 inh IH DAILY 08/14/19 05/03/20 History 25 mcg/actuation powdr for inhalation metformin 1,000 - 1,500 mg PO DIRECTED 12/24/19 05/03/20 History albuterol sulfate [Ventolin HFA] 2 puff INHALATION Q4H PRN PRN #18 02/07/20 05/03/20 Rx gm NS ascorbic acid (vitamin C) [Vitamin 500 mg PO DAILY #30 tab 02/07/20 05/03/20 Rx C] acetaminophen [Tylenol Arthritis 650 mg PO BID PRN 04/21/20 05/03/20 History Pain] acetaminophen [Tylenol Extra 1,000 mg PO Q8H PRN 04/21/20 05/03/20 History Strength] cholecalciferol (vitamin D3) 1,000 unit PO DAILY 04/21/20 05/03/20 History [Vitamin D3] hydroxyzine pamoate 25 mg PO TID 04/21/20 05/03/20 History ibuprofen 200 mg PO PRN PRN 04/21/20 05/03/20 History cefpodoxime 200 mg PO BID@1000,2200 #4 tab 04/25/20 05/03/20 Rx polyethylene glycol 3350 17 g PO DAILY PRN PRN 04/25/20 05/03/20 History Allergies Allergy/AdvReac Type Severity Reaction Status Date / Time No Known Allergies Allergy Unverified 05/03/20 13:32 Exam Const General: cooperative and no acute distress Nutritional Appearance: average body habitus Orientation: alert Eyes Sclera: sclerae normal Pupils: PERRL Neck Neck: normal visual inspection and full ROM Resp Effort & Inspection: normal respiratory effort Auscultation: clear to auscultation bilaterally Cardio Jugular venous pressure: no JVD Rate: regular rate Rhythm: regular rhythm Heart Sounds: S1 normal and S2 normal GI Inspection: normal to inspection Palpation: soft Auscultation: normal bowel sounds Neuro General: patient alert, patient oriented x3 and moves all extremities Speech: speech normal Extrem General: no clubbing, cyanosis or edema Psych Appearance: grossly normal Mental Status: mental status grossly normal Speech and Movement: speech and movement normal Mood: congruent mood Attitude: cooperative Results Labs Result diagrams: 05/03/20 14:15 05/03/20 13:50 Labs: Laboratory Results - last 24 hr 05/03/20 05/03/20 05/03/20 13:50 13:50 13:50 WBC RBC Hgb Hct MCV MCH MCHC RDW Plt Count MPV Immature Gran % Neutrophils % Band Neutrophils % Lymphocytes % Monocytes % Eosinophils % Basophils % Myelocytes % Absolute Neutrophils Absolute Lymphocytes Absolute Monocytes Absolute Eosinophils Absolute Basophils RBC Morphology PT INR APTT VBG pH 7.38 VBG pCO2 39 VBG pO2 41 VBG HCO3 23 VBG Total CO2 21 L VBG O2 Saturation 74 VBG Base Excess -2.0 Sodium 133 L Potassium 4.8 Chloride 98 Carbon Dioxide 24.0 Anion Gap 11.0 BUN 20 H Creatinine 1.35 H Estimated GFR/1.73 m2 52.88 Glucose 181 H Lactate 3.0 H* Calcium 8.5 Magnesium 1.7 L Total Bilirubin 0.3 Conjugated Bilirubin 0.11 AST 10 L ALT 17 Alkaline Phosphatase 80 Troponin I NT-Pro-B Natriuret Pep Total Protein 6.7 Albumin 3.2 L Lipase 39 Procalcitonin 7.5 Urine Color Urine Clarity Urine pH Ur Specific [place] Urine Protein Urine Ketones Urine Blood Urine Nitrite Urine Bilirubin Urine Urobilinogen Ur Leukocyte Esterase Urine Glucose 05/03/20 05/03/20 05/03/20 13:50 13:50 13:50 WBC RBC Hgb Hct MCV MCH MCHC RDW Plt Count MPV Immature Gran % Neutrophils % Band Neutrophils % Lymphocytes % Monocytes % Eosinophils % Basophils % Myelocytes % Absolute Neutrophils Absolute Lymphocytes Absolute Monocytes Absolute Eosinophils Absolute Basophils RBC Morphology PT 11.2 H INR 1.1 APTT 51.2 H VBG pH VBG pCO2 VBG pO2 VBG HCO3 VBG Total CO2 VBG O2 Saturation VBG Base Excess Sodium Potassium Chloride Carbon Dioxide Anion Gap BUN Creatinine Estimated GFR/1.73 m2 Glucose Lactate Calcium Magnesium Total Bilirubin Conjugated Bilirubin AST ALT Alkaline Phosphatase Troponin I < 0.05 NT-Pro-B Natriuret Pep 231 Total Protein Albumin Lipase Procalcitonin Urine Color Urine Clarity Urine pH Ur Specific [place] Urine Protein Urine Ketones Urine Blood Urine Nitrite Urine Bilirubin Urine Urobilinogen Ur Leukocyte Esterase Urine Glucose 05/03/20 05/03/20 14:15 15:30 WBC 57.20 H* RBC 4.05 L Hgb 11.8 L Hct 36.7 L MCV 90.6 MCH 29.1 MCHC 32.2 RDW 15.6 H Plt Count 335 MPV 10.1 Immature Gran % See Differential Neutrophils % 80.0 Band Neutrophils % 13 Lymphocytes % 2.0 Monocytes % 4.0 Eosinophils % 0.0 Basophils % 0.0 Myelocytes % 1 Absolute Neutrophils 53.20 H Absolute Lymphocytes 1.14 L Absolute Monocytes 2.29 H Absolute Eosinophils 0.00 Absolute Basophils 0.00 RBC Morphology Normal PT INR APTT VBG pH VBG pCO2 VBG pO2 VBG HCO3 VBG Total CO2 VBG O2 Saturation VBG Base Excess Sodium Potassium Chloride Carbon Dioxide Anion Gap BUN Creatinine Estimated GFR/1.73 m2 Glucose Lactate Calcium Magnesium Total Bilirubin Conjugated Bilirubin AST ALT Alkaline Phosphatase Troponin I NT-Pro-B Natriuret Pep Total Protein Albumin Lipase Procalcitonin Urine Color Yellow Urine Clarity Clear Urine pH 6.0 Ur Specific [place] 1.010 Urine Protein Negative Urine Ketones Negative Urine Blood Negative Urine Nitrite Negative Urine Bilirubin Negative Urine Urobilinogen 0.2 Ur Leukocyte Esterase Negative Urine Glucose Negative Last Vital Signs Temp 36.6 C 05/03/20 13:28 Pulse 88 05/03/20 14:15 Resp 32 H 05/03/20 15:40 BP 104/58 L 05/03/20 13:46 Pulse Ox 94 L 05/03/20 15:40 COVID-19 Screening Have you,or household,traveled outside [place] in last 14 days?: No Had IN PERSON contact w/suspected or confirmed C-19 person: No
[2020-05-03] MEDS: Insulin Aspart 300 UNITS/3 ML PEN SC (16:37)
[2020-05-03] MEDS: Normal Saline 1,000 ML 80 ML IV (17:25)
[2020-05-03] MEDS: hydrOXYzine PAMOATE 25 MG CAP PO (19:57)
[2020-05-03] MEDS: Magnesium Chloride 64 MG TABCR PO (19:58)
[2020-05-03] MEDS: Simvastatin 20 MG TAB PO (19:59)
[2020-05-03] MEDS: Apixaban 5 MG TAB PO (19:59)
[2020-05-03] MEDS: Pantoprazole 40 MG TABCR PO (19:59)
[2020-05-03] MEDS: Mometasone 220 MCG 14 DOSE INHALER 2 PUFF IH (20:49)
--- NOTE | 2020-05-04 | RT.EKG_ITS ---
APPROVED REPORT Exam: Resting ECG Patient Location: I HR:90 bpm ECG Measurements Heart Rate 90 AXIS [place] 150 P 58 QRSd 94 QRS -26 QT 377 T 71 QTc 461 Conclusion Sinus rhythm...normal P axis, V-rate 60- 99
[2020-05-04 00:05] VITALS: BP 128/68; PULSE 78; RESP 18; TEMP 36.7; O2SAT 94
[2020-05-04 06:40] LABS: Anion Gap 8.7 mmol/L (3-11); BUN 13 mg/dL (7-18); CO2 24.3 mmol/L (21.0-32.0); CREATININE 0.89 mg/dL (0.70-1.30); Calcium 8.8 mg/dL (8.5-10.1); Chloride 102 mmol/L (98-107); Glucose 194 mg/dL (74-106); Sodium 135 mmol/L (136-145)
[2020-05-04] MEDS: Mometasone 220 MCG 14 DOSE INHALER 2 PUFF IH ×2 (08:09→19:33)
[2020-05-04] MEDS: buPROPion-XL 150 MG TABCR 300 MG PO (08:09)
[2020-05-04] MEDS: Multivitamin TAB 1 TAB PO (08:10)
[2020-05-04] MEDS: Pantoprazole 40 MG TABCR PO ×2 (08:10→19:32)
[2020-05-04] MEDS: Magnesium Chloride 64 MG TABCR PO ×2 (08:10→19:32)
[2020-05-04] MEDS: Ascorbic Acid 500 MG TAB PO (08:10)
[2020-05-04] MEDS: hydrOXYzine PAMOATE 25 MG CAP PO ×3 (08:11→19:31)
[2020-05-04] MEDS: Cyanocobalamin 500 MCG TAB 1000 MCG PO (08:11)
[2020-05-04] MEDS: Apixaban 5 MG TAB PO ×2 (08:11→19:32)
[2020-05-04] MEDS: Docusate Sodium 100 MG CAP PO (08:11)
[2020-05-04] MEDS: Insulin Aspart 300 UNITS/3 ML PEN SC ×3 (08:13→16:40)
[2020-05-04 08:19] LABS: COVID-19 RT-PCR UVMMC Result Negative (Negative)
[2020-05-04 08:34] LABS: Abs Immature Grans 0.66 10^3/uL (0.0-0.06); HCT 33.8 % (40.0-50.0); HGB 10.9 g/dL (13.5-17.5); MCH 29.1 pg (27.0-33.0); MCHC 32.2 % (32.0-36.0); MCV 90.1 fL (80-95); MPV 10.9 fL (8.0-11.0); Nucleated RBC 0 %; Platelet Count 309 10^3/uL (130-400); RBC 3.75 10^6/uL (4.36-5.78); RDW 15.9 % (11.8-14.1); RDW-SD 52.8 fL
[2020-05-04 08:53] LABS: Lactate 1.2 mmol/L (0.6-1.4)
[2020-05-04 08:53] LABS: Absolute Neutrophil Count 42.23 10^3/uL (1.2-6.7); Bands % 3; WBC 47.45 10^3/uL (4.4-10.8)
[2020-05-04 08:54] LABS: Absolute Lymphocyte Count 1.42 10^3/uL (1.2-3.4); Absolute Monocyte Count 3.32 10^3/uL (0.1-0.8); Diff Comment Manual Differential; Metamyelocytes % 1; Poikilocytes 1+; Polychromasia Present
[2020-05-04 09:02] VITALS: BP 113/64; PULSE 94; RESP 20; TEMP 36.7; O2SAT 87
--- NOTE | 2020-05-04 09:41 | W.PM.PROGNOT ---
Date of Service Date of service: 05/04/20 Time of Service: 09:41 Assessment and Plan Assessment and plan (1) HCAP (healthcare-associated pneumonia): Status: Acute Assessment and plan: WBC count still markedly elevated but improved. Clinically improving. Requiring no supplemental O2. Cont Zosyn and Vanc. Likely can change to oral antibiotic tomorrow or next day, cultures allowing. (2) COPD (chronic obstructive pulmonary disease): Status: Chronic Assessment and plan: No exacerbation. Cont asmanex and prn albuterol (3) Schizo affective schizophrenia: Status: Chronic Assessment and plan: Cont home meds. EKG to monitor QTc (4) Non-insulin dependent type 2 diabetes mellitus: Status: Chronic Assessment and plan: [id number] this AM. Did receive a dose of IV steroid on admission that has likely resulted in elevation. Monitor SS insulin prn. Subjective Subjective Patient reports: no new complaints Interval history since last seen: Still states he is somewhat lightheaded when ambulating, but no vertigo, syncope. Cough has improved; no sputum overnight No F/C, N/V/abd pain. Exam Const General: cooperative Nutritional Appearance: average body habitus Orientation: alert Resp Effort & Inspection: normal respiratory effort Auscultation: clear to auscultation bilaterally Cardio Rate: regular rate Rhythm: regular rhythm Heart Sounds: S1 normal and S2 normal GI Inspection: normal to inspection Palpation: soft Percussion: normal to percussion Extrem General: normal to inspection and no clubbing, cyanosis or edema Objective Objective Clinical Data: Abnormal lab results 05/03/20 05/03/20 05/03/20 Range/Units 13:50 13:50 13:50 WBC (4.4-10.8) 10^3/uL RBC (4.36-5.78) 10^6/uL Hgb (13.5-17.5) g/dL Hct (40.0-50.0) % RDW (11.8-14.1) % Absolute Neutrophils (1.2-6.7) 10^3/uL Absolute Lymphocytes (1.2-3.4) 10^3/uL Absolute Monocytes (0.1-0.8) 10^3/uL PT (9.3-11.0) sec APTT (21.0-31.4) sec VBG Total CO2 21 L (22-29) mmol/L Sodium 133 L (136-145) mmol/L BUN 20 H (7-18) mg/dL Creatinine 1.35 H (0.70-1.30) mg/dL Glucose 181 H (74-106) mg/dL Lactate 3.0 H* (0.6-1.4) mmol/L Magnesium 1.7 L (1.8-2.4) mg/dL AST 10 L (15-37) U/L Albumin 3.2 L (3.4-5.0) g/dL 05/03/20 05/03/20 05/04/20 Range/Units 13:50 14:15 06:10 WBC 57.20 H* (4.4-10.8) 10^3/uL RBC 4.05 L (4.36-5.78) 10^6/uL Hgb 11.8 L (13.5-17.5) g/dL Hct 36.7 L (40.0-50.0) % RDW 15.6 H (11.8-14.1) % Absolute Neutrophils 53.20 H (1.2-6.7) 10^3/uL Absolute Lymphocytes 1.14 L (1.2-3.4) 10^3/uL Absolute Monocytes 2.29 H (0.1-0.8) 10^3/uL PT 11.2 H (9.3-11.0) sec APTT 51.2 H (21.0-31.4) sec VBG Total CO2 (22-29) mmol/L Sodium 135 L (136-145) mmol/L BUN (7-18) mg/dL Creatinine (0.70-1.30) mg/dL Glucose 194 H (74-106) mg/dL Lactate (0.6-1.4) mmol/L Magnesium (1.8-2.4) mg/dL AST (15-37) U/L Albumin (3.4-5.0) g/dL 05/04/20 Range/Units 06:10 WBC 47.45 H* (4.4-10.8) 10^3/uL RBC 3.75 L (4.36-5.78) 10^6/uL Hgb 10.9 L (13.5-17.5) g/dL Hct 33.8 L (40.0-50.0) % RDW 15.9 H (11.8-14.1) % Absolute Neutrophils 42.23 H (1.2-6.7) 10^3/uL Absolute Lymphocytes (1.2-3.4) 10^3/uL Absolute Monocytes 3.32 H (0.1-0.8) 10^3/uL PT (9.3-11.0) sec APTT (21.0-31.4) sec VBG Total CO2 (22-29) mmol/L Sodium (136-145) mmol/L BUN (7-18) mg/dL Creatinine (0.70-1.30) mg/dL Glucose (74-106) mg/dL Lactate (0.6-1.4) mmol/L Magnesium (1.8-2.4) mg/dL AST (15-37) U/L Albumin (3.4-5.0) g/dL Vital Signs Temperature 36.7 C 05/04/20 09:02 Temperature Source Tympanic 05/04/20 09:02 Pulse 94 H 05/04/20 09:02 Pulse Rhythm Regular 05/04/20 02:23 Pulse 90 05/03/20 15:40 Respiratory Rate 20 05/04/20 09:02 Respiratory Effort 05/04/20 02:23 Respiratory Depth Normal 05/04/20 02:23 Respiratory Pattern Normal 05/04/20 02:23 Blood Pressure 113/64 05/04/20 09:02 Blood Pressure Mean 69 05/03/20 13:46 Blood Pressure Position Supine 05/03/20 13:28 Pulse Oximetry 87 L 05/04/20 09:02 Oxygen Delivery Method Room Air 05/04/20 09:02 Oxygen Flow Rate 0 05/04/20 09:02 Pain Level 0 05/04/20 09:02 Intake & Output 05/03/20 05/03/20 05/04/20 11:59 23:59 11:59 Intake Total 490 / 490 480 / 480 Output Total 1120 / 1120 1600 / 1600 Balance -630 / -630 -1120 / -1120 Weight 64.546 kg 64.6 kg Intake: IV 0 / 0 Oral 480 / 480 480 / 480 Output: Urine 1120 / 1120 1600 / 1600 Other: Urine Color Pale Straw Yellow Urine Appearance Clear Clear Urine Odor Normal Strong Voiding Methods Urinal Urinal Laboratory Results WBC 47.45 10^3/uL (4.4-10.8) H* 05/04/20 06:10 RBC 3.75 10^6/uL (4.36-5.78) L 05/04/20 06:10 Hgb 10.9 g/dL (13.5-17.5) L 05/04/20 06:10 Hct 33.8 % (40.0-50.0) L 05/04/20 06:10 MCV 90.1 fL (80-95) 05/04/20 06:10 MCH 29.1 pg (27.0-33.0) 05/04/20 06:10 MCHC 32.2 % (32.0-36.0) 05/04/20 06:10 RDW 15.9 % (11.8-14.1) H 05/04/20 06:10 Plt Count 309 10^3/uL (130-400) 05/04/20 06:10 MPV 10.9 fL (8.0-11.0) 05/04/20 06:10 Immature Gran % See Differential 05/04/20 06:10 Neutrophils % 86.0 05/04/20 06:10 Band Neutrophils % 3 05/04/20 06:10 Lymphocytes % 3.0 05/04/20 06:10 Monocytes % 7.0 05/04/20 06:10 Eosinophils % 0.0 05/04/20 06:10 Basophils % 0.0 05/04/20 06:10 Metamyelocytes % 1 05/04/20 06:10 Myelocytes % 1 05/03/20 14:15 Absolute Neutrophils 42.23 10^3/uL (1.2-6.7) H 05/04/20 06:10 Absolute Lymphocytes 1.42 10^3/uL (1.2-3.4) 05/04/20 06:10 Absolute Monocytes 3.32 10^3/uL (0.1-0.8) H 05/04/20 06:10 Absolute Eosinophils 0.00 10^3/uL (0.0-0.7) 05/04/20 06:10 Absolute Basophils 0.00 10^3/uL (0.0-0.2) 05/04/20 06:10 RBC Morphology See below 05/04/20 06:10 Polychromasia Present 05/04/20 06:10 Poikilocytosis 1+ 05/04/20 06:10 PT 11.2 sec (9.3-11.0) H 05/03/20 13:50 INR 1.1 (0.9-1.1) 05/03/20 13:50 APTT 51.2 sec (21.0-31.4) H 05/03/20 13:50 VBG pH 7.38 (7.35-7.45) 05/03/20 13:50 VBG pCO2 39 mm/Hg (34-47) 05/03/20 13:50 VBG pO2 41 mm/Hg (28-44) 05/03/20 13:50 VBG HCO3 23 mmol/L (22-28) 05/03/20 13:50 VBG Total CO2 21 mmol/L (22-29) L 05/03/20 13:50 VBG O2 Saturation 74 % (70-80) 05/03/20 13:50 VBG Base Excess -2.0 mmol/L (-3-3) 05/03/20 13:50 Sodium 135 mmol/L (136-145) L 05/04/20 06:10 Potassium 4.0 mmol/L (3.5-5.1) 05/04/20 06:10 Chloride 102 mmol/L (98-107) 05/04/20 06:10 Carbon Dioxide 24.3 mmol/L (21.0-32.0) 05/04/20 06:10 Anion Gap 8.7 mmol/L (3-11) 05/04/20 06:10 BUN 13 mg/dL (7-18) D 05/04/20 06:10 Creatinine 0.89 mg/dL (0.70-1.30) 05/04/20 06:10 Estimated GFR/1.73 m2 >= 60.00 (mL/min/1.73m2) 05/04/20 06:10 Glucose 194 mg/dL (74-106) H 05/04/20 06:10 Lactate 1.2 mmol/L (0.6-1.4) 05/04/20 08:50 Calcium 8.8 mg/dL (8.5-10.1) 05/04/20 06:10 Magnesium 1.7 mg/dL (1.8-2.4) L 05/03/20 13:50 Total Bilirubin 0.3 mg/dL (0.2-1.0) 05/03/20 13:50 Conjugated Bilirubin 0.11 mg/dL (0.00-0.20) 05/03/20 13:50 AST 10 U/L (15-37) L 05/03/20 13:50 ALT 17 U/L (16-63) 05/03/20 13:50 Alkaline Phosphatase 80 U/L (46-116) 05/03/20 13:50 Troponin I < 0.05 ng/mL (<0.06) 05/03/20 13:50 NT-Pro-B Natriuret Pep 231 pg/mL (<300) 05/03/20 13:50 Total Protein 6.7 g/dL (6.4-8.2) 05/03/20 13:50 Albumin 3.2 g/dL (3.4-5.0) L 05/03/20 13:50 Lipase 39 U/L (73-393) 05/03/20 13:50 Procalcitonin 7.5 ng/mL 05/03/20 13:50 Urine Color Yellow (Yellow) 05/03/20 15:30 Urine Clarity Clear (Clear) 05/03/20 15:30 Urine pH 6.0 (5-8) 05/03/20 15:30 Ur Specific [place] 1.010 (1.005-1.025) 05/03/20 15:30 Urine Protein Negative mg/dL (Negative) 05/03/20 15:30 Urine Ketones Negative mg/dL (Negative) 05/03/20 15:30 Urine Blood Negative (Negative) 05/03/20 15:30 Urine Nitrite Negative (Negative) 05/03/20 15:30 Urine Bilirubin Negative (Negative) 05/03/20 15:30 Urine Urobilinogen 0.2 EU/dL (Up TO 0.2) 05/03/20 15:30 Ur Leukocyte Esterase Negative (Negative) 05/03/20 15:30 Urine Glucose Negative mg/dL (Negative) 05/03/20 15:30 COVID-19 PCR Negative (Negative) 05/03/20 14:45 Nasopharyn COVID-19 PCR Not Applicable 05/03/20 14:45 Ref Test Perform Site [place] [facility] 05/03/20 14:45
--- NOTE | 2020-05-04 10:32 | PHACLINREV_ITS ---
Pharmacy Admission Review - Admission Clinical Review (Last Reviewed 05/03/20 @ 16:30 by Chintan Hawthorne MD) H/O: CVA (cerebrovascular accident) (Acute) HCAP (healthcare-associated pneumonia) (Acute) No Known Allergies Allergy (Unverified 05/03/20 13:32) Height 5 ft 8 in Weight 64.6 kg - Renal Dosing Renal Dosing: BUN Cancelled 05/04/20 08:21 Creatinine Cancelled 05/04/20 08:21 Medications needing adjustments: Reviewed (CrCL ~74.0 mL/min, current meds okay) - Anticoagulation Anticoagulation: Hgb 10.9 g/dL (13.5-17.5) L 05/04/20 06:10 Hct 33.8 % (40.0-50.0) L 05/04/20 06:10 Plt Count 309 10^3/uL (130-400) 05/04/20 06:10 INR 1.1 (0.9-1.1) 05/03/20 13:50 Creatinine Cancelled 05/04/20 08:21 DVT Prohphylaxis: N/A Therapeutic Anticoagulation: Reviewed Medications: Apixaban - Opiate Usage Evaluate Pain Scale/Pains Meds: N/A - Relevant Labs Sodium Cancelled 05/04/20 08:21 Potassium Cancelled 05/04/20 08:21 Chloride Cancelled 05/04/20 08:21 Magnesium 1.7 mg/dL (1.8-2.4) L 05/03/20 13:50 Electrolytes, C-Reactive P, ESR: Reviewed (Na 135, k+4.0, WBC 47.45 (decrease from yesterday 57.2), has scheduled PO mag replacement) - DM Control DM Control: Glucose Cancelled 05/04/20 08:21 Finger Stick Blood Glucose 158 Finger Stick Blood Glucose 158 Insulin Dosing: Reviewed (Meal time insulin aspart, glucose was elevated. Per MD this may be due to IV steriod that patient recieved, vanco was entered as premix in D5W, this was changed to NS today.) - Heart Failure/MN Heart Failure/MN: Troponin I < 0.05 ng/mL (<0.06) 05/03/20 13:50 NT-Pro-B Natriuret Pep 231 pg/mL (<300) 05/03/20 13:50 EF%, APOLONIA's, B-Blockers, Diuretics: N/A - BP Control BP Control: Blood Pressure 113/64 Blood Pressure 128/68 If elevated: N/A (BP good) - Qtc Review If Elevated: Intervened (QTc 485. Currently has albuterol, clozapine, hydroxyzine, ziprasidone, and Anoro Ellipta ordered. MD aware/will monitor) - IV to PO Switch IV Medications: Reviewed (IV vancomycin and zosyn) - Home Meds Home Med List reviewed: Reviewed (multiple anticholinergic meds (recommended to avoid using more than one):clozapine, hydroxyzine, umeclidinium. Multiple meds that increase bleed risk: apixaban, ibuprofen. Multiple QT prolonging meds: albuterol, clozapine, hydroxyzine, vilanterol, ziprasidone. Separate admin of my lanta and calcium carbonate from ferrous sulfate, ascorbic acid, and multivitamin) Relevent Home Meds Not ordered & why?: Calcium carbonate, cefpodoxime (has other abx ordered), cholecalciferol, ferrous gluconate, Flovent (mometasone subbed for this), folic acid, ibuprofen, metformin (had iohexol yesterday and has sliding scale aspart ordered), pioglitazone (on hold per MD) - Current meds Current Medication Order Review: Intervened (Mulitple QTc prolonging meds, progress note mentioned continuing zosyn but pt only received one time dose in ED, contacted MD and confirmed he should still be on Zosyn.) - Comments Comments/Follow Ups: Monitor Mag, K+, Na, glucose and WBC. Watch for med changes (IV to PO abx, addition of any QTc prolonging meds). Watch for EKG results, QTc elevated at 485. Ziprasidone is contraindiated with clozapine and Anoro Ellipta due to QTc prolongation. MD is aware and is monitoring. Per MD, likely change to PO abx within next two days pending cultures. Pt is eligible to receive clozapine per [facility] program. Antibiotic Activity - Pharmacy Antibiotic Review Pharmacy Antibiotic Activity: C/S review (Currently on Vancomycin and zosyn. Vanco trough ordered for tomorrow @ 1500, adjust dose as necessary. Blood cultures pending, urine culture no growth @24 hours.)
--- NOTE | 2020-05-04 11:25 | INITIAL_ITS ---
- If Service Date Differs Date of service: 05/04/20 Time of Service: 11:25 Care Management Initial Assess REASON FOR HOSPITALIZATION:: HCAP PAST MEDICAL HISTORY/PAST SURGICAL HISTORY:: Medical History . Acidosis, lactic (Resolved). Acute thrombosis of right basilic vein (Inactive). Adrenal hyperplasia (Inactive). DALLAS (acute kidney injury) (Resolved). Complication associated with peripherally inserted central catheter (PICC) (Inactive). Constipation, chronic (Chronic). COPD (chronic obstructive pulmonary disease) (Chronic). Diabetes mellitus (Chronic). GERD (gastroesophageal reflux disease) (Chronic). H/O schizophrenia (Acute). H/O: CVA (cerebrovascular accident) (Acute). Hypertension (Chronic). MSSA bacteremia (Inactive). Non-insulin dependent type 2 diabetes mellitus (Chronic). Normocytic anemia (Inactive). Oropharyngeal dysphagia (Acute). Pneumonia (Inactive). Pulmonary emboli (Inactive). Schizo affective schizophrenia (Chronic). Sepsis (Resolved) PREVIOUS FUNCTIONAL STATUS/SOCIAL/FAMILY SUPPORTS:: Elias resides at [facility] His mental health services are managed by [facility] and the LEGAL ASSOCIATE program. He is independent with some ADL?s and does not use ambulatory aids. Elias is dependent on [facility] for medication management, transportation, and meals. CURRENT FUNCTIONAL STATUS:: Elias was sitting up on the side of the bed when CM met with him. He was smiling and pleasant and stated that he is feeling better. Elias shared that he had been doing well since he returned home to [facility] in March until a couple of days ago. He stated that he woke up one morning and couldn't breathe. He is receiving IV antibiotics and shared that he hopes to be able to return as soon as his pneumonia improves. ADVANCE DIRECTIVES:: On file at [facility]. Sarai De La Fuente FORMERLY [facility] Has patient been provided with info about the portal/API?: No Did the patient sign up for the portal?: No CODE STATUS:: DNR/DNI INSURANCE COVERAGE / FINANCIAL ISSUES:: Medicare. Medicaid CURRENT HOME/COMMUNITY SERVICES/EQUIPMENT:: NK, LEGAL ASSOCIATE, [facility], [facility] PRIMARY CARE PHYSICIAN:: Vinnie Black POTENTIAL DISCHARGE NEEDS:: Follow up with PCP and discharge plan of care PATIENT/FAMILY EDUCATION NEEDS:: Discharge plan, follow up saturnino, parth, Ask Me Three TRANSPORTATION:: via RCT coordinated by CM PLAN:: Elias will likely return to [facility] where he resides when medically cleared. He will folllow up with his PCP and discharge plan of care. CM will continue to support Elias and assess for discharge planning needs. Readmission - Within the Past 30 Days Yes or No: Y - Date of First Admission Date of 1st Admission: 04/21/20 - Date of this Admission Date of Admission: 05/03/20 This admission was: Through ED - Office Visit Since 1st Admission Have you seen your PCP in the office since discharge?: Yes - Speicalist Appointments Have you seen any other specialist since your 1st Admission?: No - I. Interview patient and/or Family Difficulty reaching your doctor or getting an office appt?: No Have you had trouble purchasing/ or taking medication?: No Have you had trouble with getting meals at home?: No Did you feel ready for discharge when you left the last time: Yes Did you call your physician beore you came to the ED?: No How do you think you became sick enough to come back?: I don't know. Sometimes I have trouble breathing. - Ask the Care Team Members: What do you think caused the patient to be readmitted: Elias has COPD. He has bee recently ill with a UTI and sepsis. Perhaps more susceptible at this time. - ED visits How many ED visits in the past 12 months: 3 - Assessment for Readmission Summary of readmission circumstances, based upon interviews: Elias is a pleasant 64 year old man with many chronic medical conditions including schizophrenia, COPD, history of CVA, Diabetes. He has had sepsis and bacteremia in the past as well. Elias was recently hospitalized for UTI and sepsis and may have been more susceptible to infection at this time.
[2020-05-04 12:02] VITALS: O2SAT 93
[2020-05-04] MEDS: PIPERACILLIN/TAZO 3.375 GM in Normal Saline 50 ML IVPB ×3 (12:10→23:27)
[2020-05-04] MEDS: Normal Saline 500 ML IV (15:44)
[2020-05-04] MEDS: VANCOMYCIN 1,000 MG in Normal Saline 250 ML IV (15:45)
[2020-05-04] MEDS: Normal Saline Flush 10 ML SYR IVP ×2 (15:46→23:29)
[2020-05-04 16:45] VITALS: BP 126/78; PULSE 89; RESP 18; TEMP 37.8; O2SAT 92
[2020-05-04 17:34] VITALS: TEMP 37.8
[2020-05-04] MEDS: Acetaminophen 325 MG TAB 650 MG PO (17:34)
[2020-05-04] MEDS: Simvastatin 20 MG TAB PO (19:32)
[2020-05-04] MEDS: Normal Saline 1,000 ML 80 ML IV (19:33)
[2020-05-04 23:39] VITALS: BP 120/64; PULSE 91; RESP 18; TEMP 37.2; O2SAT 91
--- NOTE | 2020-05-05 | DI.RAD_ITS ---
EXAM: XR CHEST 2V PA LATERAL CLINICAL HISTORY: pneumonia TECHNIQUE: COMPARISON: CR,XR XR CHEST 2V PA LATERAL from 02/06/[address] CHEST PE CTA from 05/03/[address] CHEST PE CTA from 05/03/2020 FINDINGS: The examination is compared with chest CT obtained May 03. As noted on the chest CT, there are d ense areas of consolidation involving multiple locations in the right lung. Left lung appears predom inantly clear. There may be mild volume loss on the right. There is a small right pleural effusion. This was not present at the time of the CT. IMPRESSION: Multifocal right-sided pneumonia. Appropriate follow-up studies requested.
[2020-05-05] MEDS: VANCOMYCIN 1,000 MG in Normal Saline 250 ML IV ×2 (03:24→15:41)
[2020-05-05] MEDS: Normal Saline Flush 10 ML SYR IVP ×3 (04:38→16:12)
[2020-05-05 07:03] LABS: Abs Immature Grans 0.46 10^3/uL (0.0-0.06); Absolute Basophil Count 0.03 10^3/uL (0.0-0.2); Absolute Lymphocyte Count 0.94 10^3/uL (1.2-3.4); Basophils % 0.1; Eosinophils % 0.3; HCT 32.3 % (40.0-50.0); HGB 10.6 g/dL (13.5-17.5); Immature Grans % 1.4; Lymphocytes % 2.9; MCH 29.4 pg (27.0-33.0); MCHC 32.8 % (32.0-36.0); MCV 89.7 fL (80-95); MPV 10.2 fL (8.0-11.0); Monocytes % 8.1; Nucleated RBC 0 %; Platelet Count 292 10^3/uL (130-400); RDW 15.9 % (11.8-14.1); RDW-SD 52.6 fL
[2020-05-05 07:38] LABS: Absolute Monocyte Count 2.61 10^3/uL (0.1-0.8); Absolute Neutrophil Count 28.14 10^3/uL (1.2-6.7); WBC 32.27 10^3/uL (4.4-10.8)
[2020-05-05 07:39] LABS: Diff Comment Agrees w/ Instrument
[2020-05-05 07:41] LABS: Neutrophils % 87.2; RBC Morphology Normal
[2020-05-05 07:50] VITALS: BP 143/84; PULSE 86; RESP 18; TEMP 37.1; O2SAT 93
[2020-05-05] MEDS: PIPERACILLIN/TAZO 3.375 GM in Normal Saline 50 ML IVPB ×3 (08:05→23:15)
[2020-05-05] MEDS: Magnesium Chloride 64 MG TABCR PO ×2 (08:06→19:55)
[2020-05-05] MEDS: buPROPion-XL 150 MG TABCR 300 MG PO (08:06)
[2020-05-05] MEDS: Ascorbic Acid 500 MG TAB PO (08:07)
[2020-05-05] MEDS: hydrOXYzine PAMOATE 25 MG CAP PO ×3 (08:07→19:55)
[2020-05-05] MEDS: Docusate Sodium 100 MG CAP PO (08:08)
[2020-05-05] MEDS: Multivitamin TAB 1 TAB PO (08:08)
[2020-05-05] MEDS: Cyanocobalamin 500 MCG TAB 1000 MCG PO (08:08)
[2020-05-05] MEDS: Pantoprazole 40 MG TABCR PO ×2 (08:08→19:55)
[2020-05-05] MEDS: Apixaban 5 MG TAB PO ×2 (08:08→19:55)
[2020-05-05] MEDS: Insulin Aspart 300 UNITS/3 ML PEN SC ×3 (08:10→17:01)
--- NOTE | 2020-05-05 08:10 | CMPROGNOTE_ITS ---
- If Service Date Differs Date of service: 05/05/20 Time of Service: 08:11 Care Management Progress Note S//O:Elias was lying in bed when CM met with him. He stated that he is feeling a bit better but is still weak and a little light headed. He appears pale and more frail than at baseline. Elias began working with PT today for strengthening and endurance. His WBC is slowly coming down but remains elevated at 32.27. Elias's BP and heart rate are wnl however his oxygen saturation levels are lower than previously, running in the low 90's on room air. A repeat chest xray was done this morning which shows a new small right pleural effusion in addition to the multi-lobar right sided pneumonia present on admission. A:Elias is a 64 year old man admitted on 05/03/20 with healthcare-asociated pneumonia P:Elias will return to [place] where he resides when medically cleared. He will folllow up with his PCP and discharge plan of care. CM will continue to support Elias and assess for discharge planning need
[2020-05-05] MEDS: Mometasone 220 MCG 14 DOSE INHALER 2 PUFF IH ×2 (08:14→19:56)
--- NOTE | 2020-05-05 09:20 | PGE_ITS ---
Date of Service Date of service: 05/05/20 Time of Service: 09:20 Assessment and Plan Assessment and plan (1) HCAP (healthcare-associated pneumonia): Status: Acute Assessment and plan: WBC count trending downward. No F/C CXR today. Blood cx with NGTD (2) COPD (chronic obstructive pulmonary disease): Status: Chronic Assessment and plan: May have mild exacerbation. O2 saturations have diminished to the low 90's. Mild cough. Schedule albuterol. Cont Asmanex (3) Schizo affective schizophrenia: Status: Chronic Assessment and plan: Stable Cont home meds (4) Non-insulin dependent type 2 diabetes mellitus: Status: Chronic Assessment and plan: Glucose 174 this AM Holding karan Actos and Metoformin SS insulin. Consistent carb diet. Subjective Subjective Interval history since last seen: Doesn't feel as well today, but doesn't elaborate. Some cough overnight No F/C. Feels more tired. Exam Const General: cooperative Nutritional Appearance: average body habitus Orientation: alert, oriented to person and oriented to place Resp Effort & Inspection: normal respiratory effort Auscultation: rhonchi (soft rhonichi throughout) Cardio Jugular venous pressure: no JVD Rate: regular rate Rhythm: regular rhythm Heart Sounds: S1 normal and S2 normal Extrem General: normal to inspection and no pedal edema Psych Appearance: grossly normal Mood: congruent mood Affect: normal affect Attitude: cooperative Objective Objective Clinical Data: Abnormal lab results 05/05/20 Range/Units 06:50 WBC 32.27 H* D (4.4-10.8) 10^3/uL RBC 3.60 L (4.36-5.78) 10^6/uL Hgb 10.6 L (13.5-17.5) g/dL Hct 32.3 L (40.0-50.0) % RDW 15.9 H (11.8-14.1) % Absolute Neutrophils 28.14 H (1.2-6.7) 10^3/uL Absolute Lymphocytes 0.94 L (1.2-3.4) 10^3/uL Absolute Monocytes 2.61 H (0.1-0.8) 10^3/uL Vital Signs Temperature 37.1 C 05/05/20 07:50 Temperature Source Tympanic 05/05/20 07:50 Pulse 86 05/05/20 07:50 Pulse Rhythm Regular 05/05/20 03:12 Pulse 90 05/03/20 15:40 Respiratory Rate 18 05/05/20 07:50 Respiratory Effort Non-Labored 05/05/20 03:12 Respiratory Depth Normal 05/05/20 03:12 Respiratory Pattern Normal 05/05/20 03:12 Blood Pressure 143/84 H 05/05/20 07:50 Blood Pressure Mean 69 05/03/20 13:46 Blood Pressure Position Supine 05/03/20 13:28 Pulse Oximetry 93 L 05/05/20 07:50 Oxygen Delivery Method Room Air 05/05/20 07:50 Oxygen Flow Rate 0 05/05/20 07:50 Pain Level 4 05/05/20 07:50 Intake & Output 05/04/20 05/04/20 05/05/20 11:59 23:59 11:59 Intake Total 480 / 2410 1930 / 2410 310 / 310 Output Total 1600 / 2700 1100 / 2700 700 / 700 Balance -1120 / -290 830 / -290 -390 / -390 Weight 64.6 kg 65.1 kg Intake: IV 0 / 1570 1570 / 1570 310 / 310 Oral 480 / 840 360 / 840 Output: Urine 1600 / 2700 1100 / 2700 700 / 700 Other: Urine Color Straw Yellow Straw Urine Appearance Clear Clear Clear Urine Odor Strong Normal Normal Stool Size Large Stool Characteristics Formed Voiding Methods Urinal Urinal Toilet Laboratory Results WBC 32.27 10^3/uL (4.4-10.8) H* D 05/05/20 06:50 RBC 3.60 10^6/uL (4.36-5.78) L 05/05/20 06:50 Hgb 10.6 g/dL (13.5-17.5) L 05/05/20 06:50 Hct 32.3 % (40.0-50.0) L 05/05/20 06:50 MCV 89.7 fL (80-95) 05/05/20 06:50 MCH 29.4 pg (27.0-33.0) 05/05/20 06:50 MCHC 32.8 % (32.0-36.0) 05/05/20 06:50 RDW 15.9 % (11.8-14.1) H 05/05/20 06:50 Plt Count 292 10^3/uL (130-400) 05/05/20 06:50 MPV 10.2 fL (8.0-11.0) 05/05/20 06:50 Immature Gran % 1.4 05/05/20 06:50 Neutrophils % 87.2 05/05/20 06:50 Band Neutrophils % 3 05/04/20 06:10 Lymphocytes % 2.9 05/05/20 06:50 Monocytes % 8.1 05/05/20 06:50 Eosinophils % 0.3 05/05/20 06:50 Basophils % 0.1 05/05/20 06:50 Metamyelocytes % 1 05/04/20 06:10 Myelocytes % 1 05/03/20 14:15 Absolute Neutrophils 28.14 10^3/uL (1.2-6.7) H 05/05/20 06:50 Absolute Lymphocytes 0.94 10^3/uL (1.2-3.4) L 05/05/20 06:50 Absolute Monocytes 2.61 10^3/uL (0.1-0.8) H 05/05/20 06:50 Absolute Eosinophils 0.10 10^3/uL (0.0-0.7) 05/05/20 06:50 Absolute Basophils 0.03 10^3/uL (0.0-0.2) 05/05/20 06:50 RBC Morphology Normal 05/05/20 06:50 Polychromasia Present 05/04/20 06:10 Poikilocytosis 1+ 05/04/20 06:10 PT 11.2 sec (9.3-11.0) H 05/03/20 13:50 INR 1.1 (0.9-1.1) 05/03/20 13:50 APTT 51.2 sec (21.0-31.4) H 05/03/20 13:50 VBG pH 7.38 (7.35-7.45) 05/03/20 13:50 VBG pCO2 39 mm/Hg (34-47) 05/03/20 13:50 VBG pO2 41 mm/Hg (28-44) 05/03/20 13:50 VBG HCO3 23 mmol/L (22-28) 05/03/20 13:50 VBG Total CO2 21 mmol/L (22-29) L 05/03/20 13:50 VBG O2 Saturation 74 % (70-80) 05/03/20 13:50 VBG Base Excess -2.0 mmol/L (-3-3) 05/03/20 13:50 Sodium Cancelled 05/04/20 08:21 Potassium Cancelled 05/04/20 08:21 Chloride Cancelled 05/04/20 08:21 Carbon Dioxide Cancelled 05/04/20 08:21 Anion Gap Cancelled 05/04/20 08:21 BUN Cancelled 05/04/20 08:21 Creatinine Cancelled 05/04/20 08:21 Estimated GFR/1.73 m2 Cancelled 05/04/20 08:21 Glucose Cancelled 05/04/20 08:21 Lactate 1.2 mmol/L (0.6-1.4) 05/04/20 08:50 Calcium Cancelled 05/04/20 08:21 Magnesium 1.7 mg/dL (1.8-2.4) L 05/03/20 13:50 Total Bilirubin 0.3 mg/dL (0.2-1.0) 05/03/20 13:50 Conjugated Bilirubin 0.11 mg/dL (0.00-0.20) 05/03/20 13:50 AST 10 U/L (15-37) L 05/03/20 13:50 ALT 17 U/L (16-63) 05/03/20 13:50 Alkaline Phosphatase 80 U/L (46-116) 05/03/20 13:50 Troponin I < 0.05 ng/mL (<0.06) 05/03/20 13:50 NT-Pro-B Natriuret Pep 231 pg/mL (<300) 05/03/20 13:50 Total Protein 6.7 g/dL (6.4-8.2) 05/03/20 13:50 Albumin 3.2 g/dL (3.4-5.0) L 05/03/20 13:50 Lipase 39 U/L (73-393) 05/03/20 13:50 Procalcitonin 7.5 ng/mL 05/03/20 13:50 Urine Color Yellow (Yellow) 05/03/20 15:30 Urine Clarity Clear (Clear) 05/03/20 15:30 Urine pH 6.0 (5-8) 05/03/20 15:30 Ur Specific [place] 1.010 (1.005-1.025) 05/03/20 15:30 Urine Protein Negative mg/dL (Negative) 05/03/20 15:30 Urine Ketones Negative mg/dL (Negative) 05/03/20 15:30 Urine Blood Negative (Negative) 05/03/20 15:30 Urine Nitrite Negative (Negative) 05/03/20 15:30 Urine Bilirubin Negative (Negative) 05/03/20 15:30 Urine Urobilinogen 0.2 EU/dL (Up TO 0.2) 05/03/20 15:30 Ur Leukocyte Esterase Negative (Negative) 05/03/20 15:30 Urine Glucose Negative mg/dL (Negative) 05/03/20 15:30 COVID-19 PCR Negative (Negative) 05/03/20 14:45 Nasopharyn COVID-19 PCR Not Applicable 05/03/20 14:45 Ref Test Perform Site [facility] lab 05/03/20 14:45
[2020-05-05] MEDS: Normal Saline 1,000 ML 80 ML IV (09:58)
--- NOTE | 2020-05-05 10:06 | IN_ITS ---
Date of service: 05/05/20 Time of Service: 10:06 PT Notes Visit Reasons: HEALTHCARE ASSCOCIATED PNEUMONIA Physical Therapy Inpatient Initial Evaluation Date: 05/05/2020 Referring Doctor: Chintan Hawthorne MD PT Orders: PT CONSULT: Eval/treat. Precautions: Fall. Standard. Activity as tolerated. Patient Profile/Admitting Diagnosis: Koko is a 4-year-old male who presented to the ED on 05/03/2020 with chief complaints of short of breath and lightheadedness. He is diagnosed with health care associated pneumonia, COPD exacerbation, schizoaffective schizophrenia, and NIDDM. PMHX: Medical History Acidosis, lactic (Resolved) Acute thrombosis of right basilic vein (Inactive) Adrenal hyperplasia (Inactive) DALLAS (acute kidney injury) (Resolved) Complication associated with peripherally inserted central catheter (PICC) (Inactive) Constipation, chronic (Chronic) COPD (chronic obstructive pulmonary disease) (Chronic) Diabetes mellitus (Chronic) GERD (gastroesophageal reflux disease) (Chronic) H/O schizophrenia (Acute) H/O: CVA (cerebrovascular accident) (Acute) Hypertension (Chronic) MSSA bacteremia (Inactive) Non-insulin dependent type 2 diabetes mellitus (Chronic) Normocytic anemia (Inactive) Oropharyngeal dysphagia (Acute) Pneumonia (Inactive) Pulmonary emboli (Inactive) Schizo affective schizophrenia (Chronic) Sepsis (Resolved) Social History/Home Situation: Koko has lived for the past 3 years in a fpc called [facility]. Equipment Owned/DME: [facility] Subjective: Koko continues to report of breath of less intensity compared to hospital admission date. He still complains of being woozy although not as much as he did last week. He denies headache and chest pain throughout PT session. Denies having had any falls the past 12 months. Objective: General Observation: IV in bilateral brachial areas. Mental Status: Alert and oriented x4 Pain: None reported Vital Signs: Oxygen saturation stayed above 95% throughout today's session ROM: Right Upper Extremity: Shoulder Flexion WFL. Shoulder abduction WFL. Elbow flexion WFL. Wrist flexion WFL. Opening and closing of hand WFL. Left Upper Extremity: Shoulder Flexion WFL. Shoulder abduction WFL. Elbow flexion WFL. Wrist flexion WFL. Opening and closing of hand WFL. Right Lower Extremity: Hip flexion WFL. Hip abduction WFL. Knee flexion WFL. Ankle dorsiflexion WFL. Ankle plantarflexion WFL. Left Lower Extremity: Hip flexion WFL. Hip abduction WFL. Knee flexion WFL. Ankle dorsiflexion WFL. Ankle plantarflexion WFL. Strength: Right Upper Extremity: Shoulder flexors 5/5. Shoulder abductors 5/5. Elbow flexors 5/5. Elbow extensors 5/5. Ready To Wear Department Manager strong. Left Upper Extremity: Shoulder flexors 5/5. Shoulder abductors 5/5. Elbow flexors 5/5. Elbow extensors 5/5. Ready To Wear Department Manager strong. Right Lower Extremity: Hip flexors 4/5. Hip abductors 4/5. Knee flexors 4/5. Knee extensors 4/5. Ankle dorsiflexors 4/5. Ankle plantarflexors 4/5. Left Lower Extremity: Hip flexors 4/5. Hip abductors 4/5. Knee flexors 4/5. Knee extensors 4/5. Ankle dorsiflexors 4/5. Ankle plantarflexors 4/5. Sensation: Intact as to pain and pressure on bilateral lower extremities. Bed Mobility/Transfers: Supine to sit SBA Sit to supine SBA Sit to stand SBA Stand to sit SBA Bed to chair SBA Chair to bed SBA Gait: Patient tolerated level surface ambulation of 100 feet +100 using front wheeled walker with full weight bearing requiring contact-guard assist. Swing through gait pattern. Reported mild short breath and minimal lightheadedness that dissipated with rest. Balance: Static Sitting: Normal Dynamic Sitting: Normal Static Standing: Fair Dynamic Standing: Fair Special Tests: Mobility Limitations Standardized Measure [facility] 6 clicks Basic Mobility Inpatient Short Form: Raw Score: 22 CMS Score: 21% deficit Informed Consent/Education: Patient instructed in purpose of PT consult and plan of care. Assessment: Clement 9 days front wheeled walker and standby assist of another for all mobility ADL performance, decreased activity tolerance, difficulty with walking, and generalized weakness resolved from admitting diagnoses. Without skilled therapy services patient is at risk for further mobility decline, falls, and inability to return to prior living setting. Patient presents with clinical signs and symptoms consistent with current/admitting diagnoses that have resulted to mobility limitations, gait instability, generalized weakness, and impairment of motor control as demonstrated by the following impairment level findings: 1. Decreased strength to B LE major muscle groups 2. Impaired sitting/standing balance 3. Impaired activity tolerance Impairments are contributing to the following functional limitations: 1. Dependent bed mobility skills 2. Increased dependence with transfers 3. Inability to safely ambulate without assistive device and physical assistance 4. Increase completion time for mobility ADL performance 5. Increased fall risk 6. Inability to negotiate steps alone safely Patient is assessed as a 13336 moderate complexity based on the following: History: 64 [id number] with impairment level findings, functional limitation s, and past medical history as indicated above Examination: Demonstrable impairment in strength, balance, and mobility level with underlying impairments and functional limitations as documented above Presentation:Evolving Decision Makin moderate complexity Goals: Goals X1 week 1. Supine-Sit independent 2. Sit-Supine independent 3. Sit-Stand independent 4. Stand-Sit independent 5. Bed-Chair independent 6. Chair-Bed independent 7. Independent gait on level surface with use of least restrictive device for at least 300 feet without report of pain nor dyspnea 8. Independent with home exercise program 9. Good static and dynamic standing balance/tolerance Plan of Care/Treatment Plan: 1-2x/day, 7 days/week x 1 week. Plan of care has been reviewed with the [employer] providing the service under Physical Therapy direction. Initiate Physical Therapy intervention for strengthening, bed mobility, transfers, gait, stairs, balance training, use of assistive device. PT intervention: Session today consisted of initial for therapy evaluation as well as education/training on mobility ADL performance using a front wheeled walker. DISCHARGE RECOMMENDATIONS: Patient will benefit from home health PT services in order to progress mobility level using least restrictive assistive ambulatory device, assess home safety, identify additional equipment needs, and establish a functional maintenance program that will increase ability of patient to remain at home. TREATMENT CODE/TIME: 63027 x 25 minutes, 08111 x 11 minutes beginning at 10:06 AM. Thank you for the opportunity to participate in the care of this patient. Lesley Blanco PT, DPT, CLT [facility] [place], [place]
--- NOTE | 2020-05-05 13:00 | W.INDIABCONS ---
Date of service: 05/05/20 Time of Service: 13:01 Diabetes Inpatient Consult DESCRIPTION/ASSESSMENT: 64 year old male admitted with PNA. PMH: COPD, HTN, Schizo affective disorder, NIDDM. BMI 21 and stable wnl. Following Diabetic Diet with adequate intake to meet nutrient needs. Met with Clement today to provide diet and diabetic principles. Clement appeared confused and unable to engage in conversation. Home meds: aspart sliding scale, MVI, zocor, geodon. Blood sugars range 170-203 mg/dl. Clement lives in an assisting living facility. INTERVENTION: attempted to provided diabetes education however not receptive at this time. PLAN: continue current meal plan, will continue to attempt to educate on diet principles recommend updated A1C Time Spent in Nutritional Counseling and Treatment: 15 min
--- NOTE | 2020-05-05 15:11 | PT.INTREAT ---
Date of service: 05/05/20 Time of Service: 14:40 PT Notes Visit Reasons: HEALTHCARE ASSCOCIATED PNEUMONIA Inpatient Physical Therapy Treatment Note [facility] Date: 05/05/2020 SUBJECTIVE: Pt willing to walk with me. I'm just a little dizzy, but walking won't hurt me. OBJECTIVE: [] BED MOBILITY/TRANSFERS Supine-sit: I Sit-supine:I Sit-stand: S Stand-sit: S GAIT Assistive Device: FWW Weight bearing: FWB Assist: SBA Distance: 200' ASSESSMENT: tolerated session well. No c/o increased dizziness, but did report that it did not get better. He did require cues for steering his walker. He tends to veer to the left. Able to make corrections with vc's. PLAN: Will continue to progress PT POC, would like to perform stair negotiation tomorrow. TREATMENT CODE/TIME: 10 min in pm. [id number].
[2020-05-05 15:24] VITALS: BP 113/73; PULSE 100; RESP 18; TEMP 37.2; O2SAT 92
[2020-05-05 15:24] LABS: Vancomycin, Trough 8.6 ug/mL (10.0-20.0)
[2020-05-05] MEDS: VANCOMYCIN 1,000 MG in Normal Saline 250 ML 250 MG IV ×2 (15:41→23:17)
[2020-05-05 19:26] VITALS: BP 147/71; PULSE 97; RESP 18; TEMP 36.3; O2SAT 90
[2020-05-05] MEDS: Simvastatin 20 MG TAB PO (19:56)
[2020-05-06] MEDS: Normal Saline 1,000 ML 80 ML IV (03:42)
[2020-05-06 05:46] VITALS: BP 133/72; PULSE 87; RESP 22; TEMP 37.3; O2SAT 92
[2020-05-06 06:47] LABS: Abs Immature Grans 0.21 10^3/uL (0.0-0.06); HCT 31.3 % (40.0-50.0); MCH 28.6 pg (27.0-33.0); MCHC 31.9 % (32.0-36.0); MCV 89.4 fL (80-95); MPV 10.5 fL (8.0-11.0); Nucleated RBC 0 %; Platelet Count 338 10^3/uL (130-400); RDW-SD 52.2 fL; WBC 19.29 10^3/uL (4.4-10.8)
[2020-05-06 06:52] LABS: Anion Gap 7.5 mmol/L (3-11); BUN 7 mg/dL (7-18); CO2 26.5 mmol/L (21.0-32.0); Calcium 8.6 mg/dL (8.5-10.1); Chloride 106 mmol/L (98-107); Glucose 154 mg/dL (74-106); Potassium 3.7 mmol/L (3.5-5.1); Sodium 140 mmol/L (136-145)
[2020-05-06 07:09] LABS: Diff Comment Manual Differential
[2020-05-06 07:10] LABS: Absolute Lymphocyte Count 2.31 10^3/uL (1.2-3.4); Absolute Monocyte Count 2.31 10^3/uL (0.1-0.8); Absolute Neutrophil Count 14.66 10^3/uL (1.2-6.7); Poikilocytes 1+; Polychromasia Present
[2020-05-06 07:21] VITALS: BP 136/81; PULSE 87; RESP 17; TEMP 37; O2SAT 94
[2020-05-06 07:23] LABS: Hemoglobin A1C 7.2 % (3.8-5.6)
[2020-05-06] MEDS: Mometasone 220 MCG 14 DOSE INHALER 2 PUFF IH (07:38)
[2020-05-06] MEDS: Insulin Aspart 300 UNITS/3 ML PEN SC (08:15)
[2020-05-06] MEDS: VANCOMYCIN 1,000 MG in Normal Saline 250 ML 250 MG IV (08:16)
[2020-05-06] MEDS: PIPERACILLIN/TAZO 3.375 GM in Normal Saline 50 ML IVPB (08:16)
[2020-05-06] MEDS: Pantoprazole 40 MG TABCR PO (08:16)
[2020-05-06] MEDS: Apixaban 5 MG TAB PO (08:17)
[2020-05-06] MEDS: Multivitamin TAB 1 TAB PO (08:17)
[2020-05-06] MEDS: Magnesium Chloride 64 MG TABCR PO (08:17)
[2020-05-06] MEDS: buPROPion-XL 150 MG TABCR 300 MG PO (08:17)
[2020-05-06] MEDS: Docusate Sodium 100 MG CAP PO (08:17)
[2020-05-06] MEDS: Ascorbic Acid 500 MG TAB PO (08:17)
[2020-05-06] MEDS: Normal Saline Flush 10 ML SYR IVP (08:17)
[2020-05-06] MEDS: Cyanocobalamin 500 MCG TAB 1000 MCG PO (08:17)
[2020-05-06] MEDS: hydrOXYzine PAMOATE 25 MG CAP PO (08:17)
--- NOTE | 2020-05-06 09:04 | W.PM.DS.N ---
Date of service: 05/06/20 Time of Service: 09:04 DS: Diagnosis Discharge Diagnosis (1) HCAP (healthcare-associated pneumonia): Status: Acute (2) COPD (chronic obstructive pulmonary disease): Status: Chronic (3) Schizo affective schizophrenia: Status: Chronic (4) Non-insulin dependent type 2 diabetes mellitus: Status: Chronic Discharge Plan Disposition Patient Disposition: LEVEL III FACILITY Condition: Stable Discharge Details Chief Complaint: SOB Clinical Impression: HCAP (healthcare-associated pneumonia) Reason For Visit: HEALTHCARE ASSCOCIATED PNEUMONIA Admit Date/Time: 05/03/20 14:58 Admit Provider: Chintan Hawthorne Attending Provider: Chintan Hawthorne Primary Care Provider: Columba Carter ED Provider: Armando Bailey Hospital Course Hospital Course: This is a 64 yo male with a PMH of COPD, NIDDM, GERD, HTN, schizophrenia, former tobacco use. He is s/p admission to [facility] from 04/22/2020 to 04/25/2020 for sepsis secondary to UTI. He presented now with SOA that began the night prior. This improved with albuterol. He also endorses feeling weak and lightheaded. Outpt lab drawn and his WBC count was over 50 so he was sent to the ED. No F/C, N/V/abd pain/pelvic pain, dysuria, urinary frequency. In the ED he was noted to have bibasilar wheezes. Wells score was moderate so a CTA chest performed with findings of multifocal pneumonia. No pulmonary embolism. He was started on HCAP antibiotic coverage with Zosyn and Vancomycin. He required no supplemental O2. His WBC count improved to 19.29. He worked with PT. His lightheadedness persisted with ambulation but improved significantly. No fevers during the course of this stay. Changed to Augmentin 875mg BID for 10 doses. Home Meds and New Rx's Prescriptions: New amoxicillin-pot clavulanate [Augmentin] 875-125 mg tablet 1 tab PO BID Qty: 10 RF: 0 Continued ferrous gluconate 324 mg (38 mg iron) tablet 324 mg PO DAILY RF: 0 pioglitazone [Actos] 30 mg tablet 30 mg PO DAILY RF: 0 simvastatin 20 mg tablet 20 mg PO QHS RF: 0 Anoro Ellipta 62.5-25 mcg/actuation blister with device 1 inh IH DAILY RF: 0 bupropion HCl [Wellbutrin XL] 300 mg tablet extended release 24 hr 300 mg PO QAM RF: 0 calcium carbonate 200 mg calcium (500 mg) Tablet,Chewable 500 mg PO TID PRN PRNQty: 0 RF: 0 alum-mag hydroxide-simeth [Mag-Al Plus] 200-200-20 mg/5 mL Suspension 30 ml PO Q2H PRN PRNQty: 0 RF: 0 Eliquis 5 mg Tablet 5 mg PO BID Qty: 60 RF: 0 multivitamin [Multiple Vitamins] Tablet 1 tab PO DAILY Qty: 30 RF: 0 cyanocobalamin (vitamin B-12) [Vitamin B-12] 500 mcg Tablet 1,000 mcg PO DAILY Qty: 60 RF: 0 pantoprazole 40 mg Tablet,Delayed Release (Dr/Ec) 40 mg PO BID@729,1999 Qty: 30 RF: 0 docusate sodium [Colace] 100 mg Capsule 100 mg PO DAILY Qty: 30 RF: 0 folic acid 1 mg Tablet 1 mg PO DAILY Qty: 30 RF: 0 magnesium chloride [Mag 64] 64 mg Tablet,Delayed Release (Dr/Ec) 64 mg PO BID Qty: 30 RF: 0 metformin 1,000 mg Tablet 1,000 - 1,500 mg PO DIRECTED RF: 0 cholecalciferol (vitamin D3) [Vitamin D3] 50 mcg (2,000 unit) capsule 1,000 unit PO DAILY RF: 0 hydroxyzine pamoate 25 mg capsule 25 mg PO TID RF: 0 ibuprofen 200 mg Tablet 200 mg PO PRN PRNRF: 0 acetaminophen [Tylenol Arthritis Pain] 650 mg Tablet Extended Release 650 mg PO BID PRNRF: 0 acetaminophen [Tylenol Extra Strength] 500 mg Tablet 1,000 mg PO Q8H PRNRF: 0 polyethylene glycol 3350 17 gram/dose powder 17 g PO DAILY PRN PRNRF: 0 ziprasidone HCl [Geodon] 80 MG capsule 80 - 160 mg PO DIRECTED RF: 0 clozapine [Clozaril] 100 MG tablet 200 - 375 mg PO DIRECTED RF: 0 Flovent HFA 120 PUFF HFA aerosol inhaler 2 puff Inhalation BID RF: 0 ascorbic acid (vitamin C) [Vitamin C] 500 mg Tablet 500 mg PO DAILY Qty: 30 RF: 0 albuterol sulfate [Ventolin HFA] 90 mcg/actuation Hfa Aerosol Inhaler 2 puff inhalation Q4H PRN PRNQty: 18 RF: 0 Discontinued cefpodoxime 200 mg Tablet 200 mg PO BID@1000,2200 Qty: 4 RF: 0 Discharge Instructions Instructions: Bacterial Pneumonia (DC) Diet:: As Tolerated Discharge Orders Discharge Orders: Discharge Order (Routine); Ordered 05/06/20 Ordered By: Chintan Hawthorne DS: Summary Status at Discharge Functional status at discharge: independent ambulation Overall status at discharge: patient is progressing back to baseline Mental Status: mental status grossly normal Speech and Movement: speech and movement normal Mood: congruent mood Affect: blunted Exam Psych Mental Status: mental status grossly normal Speech and Movement: speech and movement normal Mood: congruent mood Affect: blunted DS: Data Vitals/I&O Vitals and I&O: Vital Signs Temperature 37 C 05/06/20 07:21 Temperature Source Axillary 05/06/20 07:21 Pulse 87 05/06/20 07:21 Pulse Rhythm Regular 05/06/20 03:39 Pulse 90 05/03/20 15:40 Respiratory Rate 17 05/06/20 07:21 Respiratory Effort Non-Labored 05/06/20 03:39 Respiratory Depth Normal 05/06/20 03:39 Respiratory Pattern Normal 05/06/20 03:39 Blood Pressure 136/81 05/06/20 07:21 Blood Pressure Mean 69 05/03/20 13:46 Blood Pressure Position Supine 05/03/20 13:28 Pulse Oximetry 94 L 05/06/20 07:21 Oxygen Delivery Method Room Air 05/06/20 07:21 Oxygen Flow Rate 0 05/06/20 07:21 Pain Level 3 05/06/20 07:21 Comment 05/05/20 19:26 Intake & Output 05/05/20 05/05/20 05/06/20 11:59 23:59 11:59 Intake Total 1550 / 3390 1840 / 3390 440 / 440 Output Total 1100 / 2099 1000 / 2099 1450 / 1450 Balance 450 / 1290 840 / 1290 -1010 / -1010 Weight 65.1 kg 64.2 kg Intake: IV 1310 / 2670 1360 / 2670 320 / 320 Oral 240 / 720 480 / 720 120 / 120 Output: Urine 1100 / 2099 1000 / 2100 1450 / 1450 Other: Urine Color Straw Yellow Yellow Urine Appearance Clear Clear Clear Urine Odor Normal Normal None Stool Size Large Stool Characteristics Formed Voiding Methods Toilet Urinal Urinal Data Completed and Pending Labs on day of discharge: Labs from last 24 hours 05/06/20 05/06/20 05/06/20 06:10 06:10 06:10 WBC 19.29 H D RBC 3.50 L Hgb 10.0 L Hct 31.3 L MCV 89.4 MCH 28.6 MCHC 31.9 L RDW 16.0 H Plt Count 338 MPV 10.5 Immature Gran % 0.0 Neutrophils % 76.0 Lymphocytes % 12.0 Monocytes % 12.0 Eosinophils % 0.0 Basophils % 0.0 Absolute Neutrophils 14.66 H Absolute Lymphocytes 2.31 Absolute Monocytes 2.31 H Absolute Eosinophils 0.00 Absolute Basophils 0.00 RBC Morphology See below Polychromasia Present Poikilocytosis 1+ Sodium 140 Potassium 3.7 Chloride 106 Carbon Dioxide 26.5 Anion Gap 7.5 BUN 7 Creatinine 0.80 Estimated GFR/1.73 m2 >= 60.00 Glucose 154 H Hemoglobin A1c Calcium 8.6 Procalcitonin 1.0 Vancomycin Trough 05/06/20 05/05/20 06:10 15:00 WBC RBC Hgb Hct MCV MCH MCHC RDW Plt Count MPV Immature Gran % Neutrophils % Lymphocytes % Monocytes % Eosinophils % Basophils % Absolute Neutrophils Absolute Lymphocytes Absolute Monocytes Absolute Eosinophils Absolute Basophils RBC Morphology Polychromasia Poikilocytosis Sodium Potassium Chloride Carbon Dioxide Anion Gap BUN Creatinine Estimated GFR/1.73 m2 Glucose Hemoglobin A1c 7.2 H Calcium Procalcitonin Vancomycin Trough 8.6 L Preliminary micro results at discharge 05/03/20 14:15 Blood Culture - Preliminary Blood NO GROWTH 48 HOURS 05/03/20 13:50 Blood Culture - Preliminary Blood NO GROWTH 48 HOURS [facility] Medical History Acidosis, lactic (Resolved) Acute thrombosis of right basilic vein (Inactive) Adrenal hyperplasia (Inactive) DALL[place] (acute kidney injury) (Resolved) Complication associated with peripherally inserted central catheter (PICC) (Inactive) Constipation, chronic (Chronic) COPD (chronic obstructive pulmonary disease) (Chronic) Diabetes mellitus (Chronic) GERD (gastroesophageal reflux disease) (Chronic) H/O schizophrenia (Acute) H/O: CVA (cerebrovascular accident) (Acute) Hypertension (Chronic) MSSA bacteremia (Inactive) Non-insulin dependent type 2 diabetes mellitus (Chronic) Normocytic anemia (Inactive) Oropharyngeal dysphagia (Acute) Pneumonia (Inactive) Pulmonary emboli (Inactive) Schizo affective schizophrenia (Chronic) Sepsis (Resolved) Family History Mother No problems noted. Social History Smoking/Tobacco Use Status: Former Tobacco Use Tobacco: How many years used: 43 Alcohol Intake: former Drug use: Occasionally Substance use type: marijuana Do you feel safe at home: Yes Do you feel safe in your relationship?: Yes
--- NOTE | 2020-05-06 10:25 | CMDISCH_ITS ---
LACE Index Scoring Tool - Questions: Length of Stay (in days): 3 Acuity (Admit via E.D.?): Yes Comorbidities: Diabetes w/o Complication, Chronic Pulmonary Disease E.D. Visits: 3 - Answers: Total Score: 12 Risk of Readmission: High Risk Care Management Discharge Reason for Hospitalization: HCAP Discharge Plan: Elias will return to [place], where he resides, when medically cleared. He will folllow up with his PCP and discharge plan of care. He will transport via [facility], coordinated by this contract technical writer. Patient/Family Education Needs: Review discharge instructions, discuss Ask Me Three. - MH Services (Omit if N/A) Current MH Services: Internal [facility] ([employer] SAL[employer]PRESENTATIVE: [place])
--- NOTE | 2020-05-06 13:11 | INDS_ITS ---
Date of service: 05/06/20 PT Notes Visit Reasons: HEALTHCARE ASSCOCIATED PNEUMONIA Inpatient Physical Therapy Discharge Summary Date: 05/06/2020 Dates of service 05/05/2020 only This is a clinical summary of care provided on the duration of dates listed above. No charge was made in the completion of this documentation. Referring Doctor: Chintan Hawthorne MD PT Orders: PT CONSULT: Eval/treat. Precautions: Fall. Standard. Activity as tolerated. Patient Profile/Admitting Diagnosis: Koko is a 4-year-old male who presented to the ED on 05/03/2020 with chief complaints of short of breath and lightheadedness. He is diagnosed with health care associated pneumonia, COPD exacerbation, schizoaffective schizophrenia, and NIDDM. PMHX: Medical History Acidosis, lactic (Resolved) Acute thrombosis of right basilic vein (Inactive) Adrenal hyperplasia (Inactive) D[place] (acute kidney injury) (Resolved) Complication associated with peripherally inserted central catheter (PICC) (Inactive) Constipation, chronic (Chronic) COPD (chronic obstructive pulmonary disease) (Chronic) Diabetes mellitus (Chronic) GERD (gastroesophageal reflux disease) (Chronic) H/O schizophrenia (Acute) H/O: CVA (cerebrovascular accident) (Acute) Hypertension (Chronic) MSSA bacteremia (Inactive) Non-insulin dependent type 2 diabetes mellitus (Chronic) Normocytic anemia (Inactive) Oropharyngeal dysphagia (Acute) Pneumonia (Inactive) Pulmonary emboli (Inactive) Schizo affective schizophrenia (Chronic) Sepsis (Resolved) Social History/Home Situation: Koko has lived for the past 3 years in a jail called [facility]. Equipment Owned/DME: [facility] Subjective: NT. See most recent [employer] notes. Objective: General Observation: NT. See most recent [employer] notes. Mental Status: NT. See most recent [employer] notes. Pain: NT. See most recent [employer] notes. Vital Signs: NT. See most recent [employer] notes. ROM: Right Upper Extremity: Shoulder Flexion WFL. Shoulder abduction WFL. Elbow flexion WFL. Wrist flexion WFL. Opening and closing of hand WFL. Left Upper Extremity: Shoulder Flexion WFL. Shoulder abduction WFL. Elbow flexion WFL. Wrist flexion WFL. Opening and closing of hand WFL. Right Lower Extremity: Hip flexion WFL. Hip abduction WFL. Knee flexion WFL. Ankle dorsiflexion WFL. Ankle plantarflexion WFL. Left Lower Extremity: Hip flexion WFL. Hip abduction WFL. Knee flexion WFL. Ankle dorsiflexion WFL. Ankle plantarflexion WFL. Strength: Right Upper Extremity: Shoulder flexors 5/5. Shoulder abductors 5/5. Elbow flexors 5/5. Elbow extensors 5/5. 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 Left Upper Extremity: Shoulder flexors 5/5. Shoulder abductors 5/5. Elbow flexors 5/5. Elbow extensors 5/5. 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 Right Lower Extremity: Hip flexors 4/5. Hip abductors 4/5. Knee flexors 4/5. Knee extensors 4/5. Ankle dorsiflexors 4/5. Ankle plantarflexors 4/5. Left Lower Extremity: Hip flexors 4/5. Hip abductors 4/5. Knee flexors 4/5. Knee extensors 4/5. Ankle dorsiflexors 4/5. Ankle plantarflexors 4/5. Sensation: Intact as to pain and pressure on bilateral lower extremities. Bed Mobility/Transfers: Supine to sit independent Sit to supine independent Sit to stand supervision Stand to sit supervision Bed to chair supervision Chair to bed supervision Gait: Patient tolerated level surface ambulation of 200 feet using front wheeled walker with full weight bearing requiring contact-guard assist. Swing through gait pattern. Reported mild short breath and minimal lightheadedness that dissipated with rest. Balance: Static Sitting: Normal Dynamic Sitting: Normal Static Standing: Fair Dynamic Standing: Fair Assessment: Koko continues to demonstrate functional mobility decline requiring the use of front wheeled walker and standby assist of another for all mobility ADL performance, decreased activity tolerance, difficulty with walking, and generalized weakness resolved from admitting diagnoses. Without skilled therapy services patient is at risk for further mobility decline, falls, and inability to return to prior living setting. Patient continues to present with clinical signs and symptoms consistent with current/admitting diagnoses that have resulted to mobility limitations, gait instability, generalized weakness, and impairment of motor control as demonstrated by the following impairment level findings: 1. Decreased strength to B LE major muscle groups 2. Impaired sitting/standing balance 3. Impaired activity tolerance Impairments are continuing to contribute to the following functional limitations: 1. Dependent bed mobility skills 2. Increased dependence with transfers 3. Inability to safely ambulate without assistive device and physical assistance 4. Increase completion time for mobility ADL performance 5. Increased fall risk 6. Inability to negotiate steps alone safely Goals: Goals X1 week 1. Supine-Sit independent MET 2. Sit-Supine independent MET 3. Sit-Stand independent NOT MET 4. Stand-Sit independent NOT MET 5. Bed-Chair independent NOT MET 6. Chair-Bed independent NOT MET 7. Independent gait on level surface with use of least restrictive device for at least 300 feet without report of pain nor dyspnea NOT MET 8. Independent with home exercise program NOT MET 9. Good static and dynamic standing balance/tolerance NOT MET DISCHARGE RECOMMENDATIONS: Patient will benefit from home health PT services in order to progress mobility level using least restrictive assistive ambulatory device, assess home safety, identify additional equipment needs, and establish a functional maintenance program that will increase ability of patient to remain at home. TREATMENT CODE/TIME: [place] Thank you for the opportunity to participate in the care of this patient. Lesley Blanco PT, DPT, CLT [facility] [place], [place]
== END 2020-05-06 10:19 | disposition designated cancer center or children's hospital (05) | DRG 190 ==
LOC: ER 15:11 → MS 16:09
PROVIDERS: Admitting Provider Family Medicine; Emergency Provider Emergency Medicine; PCP Nurse Practitioner Family; Visit Provider Family Medicine
DX: J44.0 Chronic obstructive pulmonary disease with (acute) lower respiratory infection (principal); J18.9 Pneumonia, unspecified organism; E11.9 Type 2 diabetes mellitus without complications; K21.9 Gastro-esophageal reflux disease without esophagitis; I10 Essential (primary) hypertension; F20.9 Schizophrenia, unspecified; Z87.891 Personal history of nicotine dependence; Z86.718 Personal history of other venous thrombosis and embolism; K59.09 Other constipation; Z86.73 Personal history of transient ischemic attack (TIA), and cerebral infarction without residual deficits; Z79.01 Long term (current) use of anticoagulants; R42 Dizziness and giddiness
CPT/HCPCS: 36415; 71275; 80048; 80053; 82805; 83690; 84145; 87040; 93005; 94640; 96361; 96365; 96375; 97162; 97530; 99222; 99232; 99239; 99285; 99316; U0003; 71046; 80202; 81003; 82248; 83036; 83605; 83735; 83880; 84484; 85025; 85610; 85730; 87086; 93010; 94667; J2543; J2930; J3490; J7620

== ENCOUNTER 2020-05-13 09:44 | Outpatient (REF) | payer MEDICARE, MEDICAID, SELFPAY ==
[2020-05-13 19:23] LABS: Abs Immature Grans 0.26 10^3/uL (0.0-0.06); Absolute Basophil Count 0.02 10^3/uL (0.0-0.2); Absolute Eosinophil Count 0.13 10^3/uL (0.0-0.7); Absolute Lymphocyte Count 1.66 10^3/uL (1.2-3.4); Absolute Monocyte Count 0.93 10^3/uL (0.1-0.8); Absolute Neutrophil Count 12.69 10^3/uL (1.2-6.7); Basophils % 0.1; Eosinophils % 0.8; HCT 33.8 % (40.0-50.0); HGB 10.8 g/dL (13.5-17.5); Immature Grans % 1.7; Lymphocytes % 10.6; MCH 28.4 pg (27.0-33.0); MCV 88.9 fL (80-95); MPV 10.1 fL (8.0-11.0); Monocytes % 5.9; Neutrophils % 80.9; Nucleated RBC 0 %; Platelet Count 542 10^3/uL (130-400); RDW 15.8 % (11.8-14.1); RDW-SD 51.7 fL; WBC 15.69 10^3/uL (4.4-10.8)
== END 2020-05-13 10:04 ==
LOC: NCHCN 09:44
PROVIDERS: PCP Nurse Practitioner Family; Visit Provider Nurse Practitioner Family
DX: J18.8 Other pneumonia, unspecified organism (principal); Z79.899 Other long term (current) drug therapy
CPT/HCPCS: 85025

== ENCOUNTER 2020-06-01 05:09 | Outpatient (CLI) | payer MEDICARE, MEDICAID, SELFPAY ==
[2020-06-01 12:21] LABS: Abs Immature Grans 0.06 10^3/uL (0.0-0.06); Absolute Basophil Count 0.02 10^3/uL (0.0-0.2); Absolute Eosinophil Count 0.09 10^3/uL (0.0-0.7); Absolute Lymphocyte Count 1.75 10^3/uL (1.2-3.4); Absolute Monocyte Count 1.15 10^3/uL (0.1-0.8); Basophils % 0.2; Eosinophils % 0.8; HCT 37.6 % (40.0-50.0); HGB 12.1 g/dL (13.5-17.5); Immature Grans % 0.5; MCHC 32.2 % (32.0-36.0); MCV 90.2 fL (80-95); MPV 10.6 fL (8.0-11.0); Monocytes % 10.5; Nucleated RBC 0 %; Platelet Count 279 10^3/uL (130-400); RBC 4.17 10^6/uL (4.36-5.78); RDW 16.2 % (11.8-14.1); RDW-SD 53.1 fL; WBC 10.94 10^3/uL (4.4-10.8)
[2020-06-01 12:25] LABS: Absolute Neutrophil Count 7.88 10^3/uL (1.2-6.7)
== END 2020-06-01 05:29 ==
PROVIDERS: Nurse Practitioner Family; PCP Nurse Practitioner Family; Visit Provider Nurse Practitioner Psychiatric/Mental Health
DX: F20.9 Schizophrenia, unspecified (principal); Z79.899 Other long term (current) drug therapy
CPT/HCPCS: 36415; 85025

== ENCOUNTER 2020-06-30 05:02 | Outpatient (CLI) | payer MEDICARE, MEDICAID, SELFPAY ==
[2020-06-30 13:08] LABS: Abs Immature Grans 0.09 10^3/uL (0.0-0.06); Absolute Basophil Count 0.02 10^3/uL (0.0-0.2); Absolute Eosinophil Count 0.08 10^3/uL (0.0-0.7); Absolute Lymphocyte Count 2.17 10^3/uL (1.2-3.4); Basophils % 0.2; Eosinophils % 0.7; HCT 36.5 % (40.0-50.0); HGB 11.9 g/dL (13.5-17.5); Immature Grans % 0.8; Lymphocytes % 19.4; MCH 29.2 pg (27.0-33.0); MCHC 32.6 % (32.0-36.0); MCV 89.5 fL (80-95); MPV 10.1 fL (8.0-11.0); Monocytes % 9.7; Neutrophils % 69.2; Nucleated RBC 0 %; Platelet Count 256 10^3/uL (130-400); RBC 4.08 10^6/uL (4.36-5.78); RDW 16.3 % (11.8-14.1); RDW-SD 53.1 fL; WBC 11.18 10^3/uL (4.4-10.8)
[2020-06-30 13:10] LABS: Absolute Monocyte Count 1.08 10^3/uL (0.1-0.8); Absolute Neutrophil Count 7.74 10^3/uL (1.2-6.7)
== END 2020-06-30 05:22 ==
PROVIDERS: PCP Nurse Practitioner Family; Visit Provider Nurse Practitioner Family
DX: F20.9 Schizophrenia, unspecified (principal); Z79.899 Other long term (current) drug therapy
CPT/HCPCS: 36415; 85025

== ENCOUNTER 2020-08-02 03:14 | Outpatient (CLI) | payer MEDICARE, MEDICAID, SELFPAY ==
[2020-08-02 11:30] LABS: Abs Immature Grans 0.09 10^3/uL (0.0-0.06); Absolute Eosinophil Count 0.07 10^3/uL (0.0-0.7); Absolute Lymphocyte Count 1.57 10^3/uL (1.2-3.4); Absolute Monocyte Count 0.95 10^3/uL (0.1-0.8); Absolute Neutrophil Count 10.86 10^3/uL (1.2-6.7); Basophils % 0.1; Eosinophils % 0.5; HCT 35.8 % (40.0-50.0); HGB 11.6 g/dL (13.5-17.5); Immature Grans % 0.7; Lymphocytes % 11.6; MCH 29.7 pg (27.0-33.0); MCHC 32.4 % (32.0-36.0); MCV 91.6 fL (80-95); MPV 9.9 fL (8.0-11.0); Neutrophils % 80.1; Nucleated RBC 0 %; Platelet Count 298 10^3/uL (130-400); RBC 3.91 10^6/uL (4.36-5.78); RDW 16.3 % (11.8-14.1); RDW-SD 54.9 fL
[2020-08-02 11:35] LABS: Absolute Basophil Count 0.01 10^3/uL (0.0-0.2)
[2020-08-02 11:37] LABS: WBC 13.56 10^3/uL (4.4-10.8)
== END 2020-08-02 03:34 ==
PROVIDERS: PCP Nurse Practitioner Family; Visit Provider Nurse Practitioner Family
DX: F20.9 Schizophrenia, unspecified (principal)
CPT/HCPCS: 36415; 85025

== ENCOUNTER 2020-08-30 03:24 | Outpatient (CLI) | payer MEDICARE, MEDICAID, SELFPAY ==
[2020-08-30 11:36] LABS: Abs Immature Grans 0.06 10^3/uL (0.0-0.06); Absolute Basophil Count 0.01 10^3/uL (0.0-0.2); Absolute Eosinophil Count 0.08 10^3/uL (0.0-0.7); Absolute Lymphocyte Count 1.72 10^3/uL (1.2-3.4); Absolute Monocyte Count 1.11 10^3/uL (0.1-0.8); Absolute Neutrophil Count 7.02 10^3/uL (1.2-6.7); Basophils % 0.1; Eosinophils % 0.8; HGB 12.1 g/dL (13.5-17.5); Immature Grans % 0.6; Lymphocytes % 17.2; MCH 30.2 pg (27.0-33.0); MCHC 33.6 % (32.0-36.0); MCV 89.8 fL (80-95); Monocytes % 11.1; Neutrophils % 70.2; Nucleated RBC 0 %; Platelet Count 283 10^3/uL (130-400); RBC 4.01 10^6/uL (4.36-5.78); RDW 15.9 % (11.8-14.1); RDW-SD 52.6 fL
== END 2020-08-30 03:44 ==
PROVIDERS: PCP Nurse Practitioner Family; Visit Provider Nurse Practitioner Family
DX: F20.9 Schizophrenia, unspecified (principal); Z79.899 Other long term (current) drug therapy
CPT/HCPCS: 36415; 85025

== ENCOUNTER 2020-09-27 03:19 | Outpatient (CLI) | payer MEDICARE, MEDICAID, SELFPAY ==
[2020-09-27 11:41] LABS: Absolute Eosinophil Count 0.08 10^3/uL (0.0-0.7); Basophils % 0.2; Eosinophils % 0.6; HCT 36.9 % (40.0-50.0); HGB 12.1 g/dL (13.5-17.5); Immature Grans % 1.5; Lymphocytes % 13.3; MCH 29.5 pg (27.0-33.0); MCHC 32.8 % (32.0-36.0); MPV 8.6 fL (8.0-11.0); Neutrophils % 74.4; Nucleated RBC 0 %; Platelet Count 348 10^3/uL (130-400); RDW 15.2 % (11.8-14.1); RDW-SD 49.6 fL; WBC 13.05 10^3/uL (4.4-10.8)
[2020-09-27 11:42] LABS: Absolute Basophil Count 0.03 10^3/uL (0.0-0.2); Absolute Lymphocyte Count 1.74 10^3/uL (1.2-3.4); Absolute Monocyte Count 1.31 10^3/uL (0.1-0.8); Absolute Neutrophil Count 9.71 10^3/uL (1.2-6.7)
== END 2020-09-27 03:39 ==
PROVIDERS: Psychiatry & Neurology Psychiatry; PCP Nurse Practitioner Family; Visit Provider Nurse Practitioner Family
DX: F20.9 Schizophrenia, unspecified (principal); Z79.899 Other long term (current) drug therapy
CPT/HCPCS: 36415; 85025

== ENCOUNTER 2020-10-17 11:54 | Observation (INO) | payer MEDICARE, MEDICAID, SELFPAY ==
[2020-10-17] VITALS (44 sets, daily range): BP systolic 109–159; BP diastolic 62–82; PULSE 78–99; RESP 18–109; TEMP 36.4–36.6; O2SAT 96–99
--- NOTE | 2020-10-17 12:00 | RT.EKG_ITS ---
APPROVED REPORT Exam: Resting ECG Patient Location: E HR:95 bpm ECG Measurements Heart Rate 95 AXIS AZ 150 P 71 QRSd 100 QRS -27 QT 361 T 74 QTc 454 Conclusion Sinus rhythm...normal P axis, V-rate 60- 99 Probable left atrial enlargement...P >50mS, <-0.10mV V1 sinus rhythm at 95, normal axis, no STEMI, no major change from prior 05/19, nondiagnostic EKG
--- NOTE | 2020-10-17 12:10 | W.ED.GENAD ---
Discharge Plan Discharge Details Chief Complaint: GenMedical Admit Date/Time: 10/17/20 15:48 Admit Provider: Chintan Hawthorne Attending Provider: Chintan Hawthorne Primary Care Provider: Columba Carter ED Provider: Lina Santana Medical Decision Making Koko Estevez is a 55-year-old man who presented to the emergency department with 3 days of low blood pressures (systolic 70s to 80s) documented by his caregivers, also with lightheadedness with standing worse from baseline over the past 3 days. On exam patient is well and nontoxic-appearing. Moist mucous membranes. Benign cardiopulmonary exam, nonfocal neurologic exam. Blood pressure 120 systolic in exam room. Concern for hypovolemia versus occult infection. Doubt pulmonary embolism, acute coronary syndrome. Exam/history is not consistent with acute aortic pathology, cerebrovascular accident. Plan for EKG, chest x-ray, screening labs, orthostatic vital signs. Will monitor and reassess. Chest x-ray with scarring, also concerning for early pneumonia. Given patient with low blood pressures repeatedly over the past few days, elevated lactate, concern for possible early sepsis. Plan for Zosyn, vancomycin for healthcare acquired pneumonia, plan to admit. Clinical impression: Pneumonia Disposition: [facility] inpatient Medical Records Medical records reviewed: Yes I reviewed the patient's medical records. Imaging Data Radiologic Study: Attestation: I personally reviewed and interpreted this imaging study as follows: Radiologist's impression: EXAM: XR CHEST 2V PA LATERAL CLINICAL HISTORY: SOB TECHNIQUE: 2D digital imaging was performed. COMPARISON: CR XR CHEST 2V PA LATERAL from 05/05/2020 FINDINGS: MEDIASTINUM: Normal. HEART: Normal. PULMONARY VASCULATURE: Normal. LUNGS: There is a linear area in the right middle lobe which may represent scarring or atelectasis. Pneumonia cannot be entirely excluded. A calcified granuloma is again seen in the left upper lobe. The lungs are hyperinflated suggesting underlying COPD. PLEURAL SPACE: No pleural effusion or pneumothorax. BONE:Within normal limits for the patient's age. OTHER FINDINGS:Normal. IMPRESSION: Right middle lobe opacity which may represent scarring or atelectasis. Pneumonia cannot be excluded. Please correlate clinically. Lab Data Lab results reviewed: Yes I reviewed the patient's lab results. Labs: 10/17/20 13:30 Blood Blood Culture - Pending 10/17/20 12:45 Blood Blood Culture - Pending Laboratory Tests Range/Units 10/17/20 10/17/20 10/17/20 12:45 12:45 12:45 WBC (4.4-10.8) 10^3/uL 8.42 RBC (4.36-5.78) 10^6/uL 3.83 L Hgb (13.5-17.5) g/dL 11.7 L Hct (40.0-50.0) % 34.3 L MCV (80-95) fL 89.6 MCH (27.0-33.0) pg 30.5 MCHC (32.0-36.0) % 34.1 RDW (11.8-14.1) % 14.6 H Plt Count (130-400) 10^3/uL 259 MPV (8.0-11.0) fL 9.7 Immature Gran % 1.2 Neutrophils % 69.6 Lymphocytes % 15.3 Monocytes % 12.9 Eosinophils % 0.8 Basophils % 0.2 Nucleated RBC % % 0 Absolute Neutrophils (1.2-6.7) 10^3/uL 5.85 Absolute Lymphocytes (1.2-3.4) 10^3/uL 1.29 Absolute Monocytes (0.1-0.8) 10^3/uL 1.09 H Absolute Eosinophils (0.0-0.7) 10^3/uL 0.07 Absolute Basophils (0.0-0.2) 10^3/uL 0.02 D-Dimer (<500) ng/mlFEU VBG Lactate (0.6-1.4) mmol/L 3.3 H* Sodium (136-145) mmol/L 129 L Potassium (3.5-5.1) mmol/L 4.6 Chloride (98-107) mmol/L 97 L Carbon Dioxide (21.0-32.0) mmol/L 23.6 Anion Gap (3-11) mmol/L 8.4 BUN (7-18) mg/dL 14 Creatinine (0.70-1.30) mg/dL 1.04 Estimated GFR/1.73 m2 (mL/min/1.73m2) >= 60.00 Glucose (74-106) mg/dL 112 H Calcium (8.5-10.1) mg/dL 8.4 L Total Bilirubin (0.2-1.0) mg/dL 0.2 AST (15-37) U/L 10 L ALT (16-63) U/L 19 Alkaline Phosphatase (46-116) U/L 77 Troponin I (<0.06) ng/mL Total Protein (6.4-8.2) g/dL 6.0 L Albumin (3.4-5.0) g/dL 3.1 L TSH (0.36-3.74) uIU/mL 1.52 Urine Color (Yellow) Urine Clarity (Clear) Urine pH (5-8) Ur Specific [place] (1.005-1.025) Urine Protein (Negative) mg/dL Urine Ketones (Negative) mg/dL Urine Blood (Negative) Urine Nitrite (Negative) Urine Bilirubin (Negative) Urine Urobilinogen (Up TO 0.2) EU/dL Ur Leukocyte Esterase (Negative) Urine RBC (0-2) HPF Urine WBC (0-5) HPF Ur Epithelial Cells (Negative) HPF Urine Crystals (Negative) HPF Urine Bacteria (Negative) HPF Urine Casts (Negative) LPF Urine Mucus (Negative) Urine Other (Negative) Ur Culture Indicated? Urine Glucose (Negative) mg/dL COVID-19 Source SARS-CoV-2 (PCR) Nasopharyn COVID-19 PCR Influenza Type A (PCR) (Negative) Influenza Type B (PCR) (Negative) RSV (PCR) (Negative) Ref Test Perform Site Range/Units 10/17/20 10/17/20 10/17/20 12:45 12:45 14:10 WBC (4.4-10.8) 10^3/uL RBC (4.36-5.78) 10^6/uL Hgb (13.5-17.5) g/dL Hct (40.0-50.0) % MCV (80-95) fL MCH (27.0-33.0) pg MCHC (32.0-36.0) % RDW (11.8-14.1) % Plt Count (130-400) 10^3/uL MPV (8.0-11.0) fL Immature Gran % Neutrophils % Lymphocytes % Monocytes % Eosinophils % Basophils % Nucleated RBC % % Absolute Neutrophils (1.2-6.7) 10^3/uL Absolute Lymphocytes (1.2-3.4) 10^3/uL Absolute Monocytes (0.1-0.8) 10^3/uL Absolute Eosinophils (0.0-0.7) 10^3/uL Absolute Basophils (0.0-0.2) 10^3/uL D-Dimer (<500) ng/mlFEU 347 VBG Lactate (0.6-1.4) mmol/L Sodium (136-145) mmol/L Potassium (3.5-5.1) mmol/L Chloride (98-107) mmol/L Carbon Dioxide (21.0-32.0) mmol/L Anion Gap (3-11) mmol/L BUN (7-18) mg/dL Creatinine (0.70-1.30) mg/dL Estimated GFR/1.73 m2 (mL/min/1.73m2) Glucose (74-106) mg/dL Calcium (8.5-10.1) mg/dL Total Bilirubin (0.2-1.0) mg/dL AST (15-37) U/L ALT (16-63) U/L Alkaline Phosphatase (46-116) U/L Troponin I (<0.06) ng/mL < 0.05 Total Protein (6.4-8.2) g/dL Albumin (3.4-5.0) g/dL TSH (0.36-3.74) uIU/mL Urine Color (Yellow) Urine Clarity (Clear) Urine pH (5-8) Ur Specific [place] (1.005-1.025) Urine Protein (Negative) mg/dL Urine Ketones (Negative) mg/dL Urine Blood (Negative) Urine Nitrite (Negative) Urine Bilirubin (Negative) Urine Urobilinogen (Up TO 0.2) EU/dL Ur Leukocyte Esterase (Negative) Urine RBC (0-2) HPF Urine WBC (0-5) HPF Ur Epithelial Cells (Negative) HPF Urine Crystals (Negative) HPF Urine Bacteria (Negative) HPF Urine Casts (Negative) LPF Urine Mucus (Negative) Urine Other (Negative) Ur Culture Indicated? Urine Glucose (Negative) mg/dL COVID-19 Source SARS-CoV-2 (PCR) Cancelled Nasopharyn COVID-19 PCR Cancelled Influenza Type A (PCR) (Negative) Influenza Type B (PCR) (Negative) RSV (PCR) (Negative) Ref Test Perform Site Cancelled Range/Units 10/17/20 10/17/20 10/17/20 14:10 14:18 15:45 WBC (4.4-10.8) 10^3/uL RBC (4.36-5.78) 10^6/uL Hgb (13.5-17.5) g/dL Hct (40.0-50.0) % MCV (80-95) fL MCH (27.0-33.0) pg MCHC (32.0-36.0) % RDW (11.8-14.1) % Plt Count (130-400) 10^3/uL MPV (8.0-11.0) fL Immature Gran % Neutrophils % Lymphocytes % Monocytes % Eosinophils % Basophils % Nucleated RBC % % Absolute Neutrophils (1.2-6.7) 10^3/uL Absolute Lymphocytes (1.2-3.4) 10^3/uL Absolute Monocytes (0.1-0.8) 10^3/uL Absolute Eosinophils (0.0-0.7) 10^3/uL Absolute Basophils (0.0-0.2) 10^3/uL D-Dimer (<500) ng/mlFEU VBG Lactate (0.6-1.4) mmol/L Sodium (136-145) mmol/L Potassium (3.5-5.1) mmol/L Chloride (98-107) mmol/L Carbon Dioxide (21.0-32.0) mmol/L Anion Gap (3-11) mmol/L BUN (7-18) mg/dL Creatinine (0.70-1.30) mg/dL Estimated GFR/1.73 m2 (mL/min/1.73m2) Glucose (74-106) mg/dL Calcium (8.5-10.1) mg/dL Total Bilirubin (0.2-1.0) mg/dL AST (15-37) U/L ALT (16-63) U/L Alkaline Phosphatase (46-116) U/L Troponin I (<0.06) ng/mL < 0.05 Total Protein (6.4-8.2) g/dL Albumin (3.4-5.0) g/dL TSH (0.36-3.74) uIU/mL Urine Color (Yellow) Yellow Urine Clarity (Clear) Clear Urine pH (5-8) 6.0 Ur Specific [place] (1.005-1.025) >= 1.030 H Urine Protein (Negative) mg/dL Trace H Urine Ketones (Negative) mg/dL Negative Urine Blood (Negative) Negative Urine Nitrite (Negative) Negative Urine Bilirubin (Negative) Negative Urine Urobilinogen (Up TO 0.2) EU/dL 0.2 Ur Leukocyte Esterase (Negative) Negative Urine RBC (0-2) HPF Negative Urine WBC (0-5) HPF Negative Ur Epithelial Cells (Negative) HPF Few Urine Crystals (Negative) HPF Negative Urine Bacteria (Negative) HPF Rare Urine Casts (Negative) LPF Negative Urine Mucus (Negative) Moderate Urine Other (Negative) Rare renal Ur Culture Indicated? No Urine Glucose (Negative) mg/dL Negative COVID-19 Source Nasopharynx SARS-CoV-2 (PCR) Negative Nasopharyn COVID-19 PCR Influenza Type A (PCR) (Negative) Negative Influenza Type B (PCR) (Negative) Negative RSV (PCR) (Negative) Negative Ref Test Perform Site ECG Data Attestation: I personally reviewed and interpreted this ECG (s) as follows: Interpretation: EKG shows sinus rhythm at 95, normal axis, no STEMI, no major change from prior 05/19, nondiagnostic EKG HPI General Mode of arrival: EMS. Date/Time Provider Initiated Documentation: 10/17/20 11:54. Limitations to Documentation: no limitations. Information obtained by: patient, RN notes reviewed and old records reviewed. HPI Narrative: Koko Estevez is a 65-year-old man with a history of diabetes, CVA, COPD, hypertension, schizophrenia, GERD presenting to the emergency department for lightheadedness and low blood pressure. Patient's caregivers reports that he has had multiple low blood pressures with systolic 70-80 since 10/14/2020. They have been encouraging him to drink fluids since that time, but his low blood pressures have persisted. He has continued to take his blood pressure medication during this. Today he was sent in for continued low blood pressure at home with systolic in the 80s today. Patient reports that he feels quite well other than lightheadedness. He reports that he has intermittent lightheadedness at baseline, although this seems worse than usual over the past 3 days. Patient reports that lightheadedness is worse when he goes from sitting to standing. He states that he has not lost consciousness or fallen because of this. Patient reports that he did fall 3 days ago, when he tripped and fell down 3 steps. Patient reports that he scraped his head lightly and had no other injury from the fall he denies loss of consciousness, headache, vomiting. Patient reports that he fell because he tripped and not because he was feeling lightheaded. He denies any pain, fevers, vomiting, diarrhea, numbness, weakness, cough. Patient does report that he feels somewhat short of breath, although states that he has baseline shortness of breath. He is unsure whether his shortness of breath is worse than usual. Patient states that he has been eating and drinking as usual and tries to drink at least 4 to 5 cups of water per day. Related Data Home Medications Medication Instructions Recorded Confirmed Flovent HFA 2 puff INHALATION BID 06/18/17 10/17/20 clozapine [Clozaril] 200 - 375 mg PO DIRECTED 06/18/17 10/17/20 ziprasidone HCl [Geodon] 80 - 160 mg PO DIRECTED 06/18/17 10/17/20 alum-mag hydroxide-simeth [Mag-Al 30 ml PO Q2H PRN PRN #0 ml 12/05/18 10/17/20 Plus] calcium carbonate 500 mg PO TID PRN PRN #0 tab 12/05/18 10/17/20 Eliquis 5 mg PO BID #60 tab 01/23/19 10/17/20 cyanocobalamin (vitamin B-12) 1,000 mcg PO DAILY #60 tab 01/23/19 10/17/20 [Vitamin B-12] docusate sodium [Colace] 100 mg PO DAILY #30 cap 01/23/19 10/17/20 folic acid 1 mg PO DAILY #30 tab 01/23/19 10/17/20 magnesium chloride [Mag 64] 64 mg PO BID #30 tab 01/23/19 10/17/20 multivitamin [Multiple Vitamins] 1 tab PO DAILY #30 tab 01/23/19 10/17/20 pantoprazole 40 mg PO BID@0730,2000 #30 tab 01/23/19 10/17/20 bupropion HCl 300 mg 24 hr tablet, 300 mg PO QAM 08/14/19 10/17/20 extended release ferrous gluconate 324 mg (38 mg 324 mg PO DAILY 08/14/19 10/17/20 iron) tablet pioglitazone 30 mg tablet 30 mg PO DAILY 08/14/19 10/17/20 simvastatin 20 mg tablet 20 mg PO QHS 08/14/19 10/17/20 umeclidinium 62.5 mcg-vilanterol 1 inh IH DAILY 08/14/19 10/17/20 25 mcg/actuation powdr for inhalation metformin 1,000 - 1,500 mg PO DIRECTED 12/24/19 10/17/20 albuterol sulfate [Ventolin HFA] 2 puff INHALATION Q4H PRN PRN #18 02/07/20 10/17/20 gm NS acetaminophen [Tylenol Arthritis 650 mg PO BID 04/21/20 10/17/20 Pain] acetaminophen [Tylenol Extra 1,000 mg PO Q8H PRN 04/21/20 10/17/20 Strength] hydroxyzine pamoate 25 mg PO .QNOON 04/21/20 10/17/20 ibuprofen 200 mg PO PRN PRN 04/21/20 10/17/20 polyethylene glycol 3350 17 g PO DAILY PRN PRN 04/25/20 10/17/20 hydroxyzine pamoate [Vistaril] 25 mg PO DAILY PRN PRN 10/17/20 10/17/20 lisinopril 2.5 mg PO DAILY 10/17/20 10/17/20 Previous Rx's Medication Instructions Recorded alum-mag hydroxide-simeth [Mag-Al 30 ml PO Q2H PRN PRN #0 ml 12/05/18 Plus] calcium carbonate 500 mg PO TID PRN PRN #0 tab 12/05/18 Eliquis 5 mg PO BID #60 tab 01/23/19 cyanocobalamin (vitamin B-12) 1,000 mcg PO DAILY #60 tab 01/23/19 [Vitamin B-12] docusate sodium [Colace] 100 mg PO DAILY #30 cap 01/23/19 folic acid 1 mg PO DAILY #30 tab 01/23/19 magnesium chloride [Mag 64] 64 mg PO BID #30 tab 01/23/19 multivitamin [Multiple Vitamins] 1 tab PO DAILY #30 tab 01/23/19 pantoprazole 40 mg PO BID@07,1999 #30 tab 01/23/19 albuterol sulfate [Ventolin HFA] 2 puff INHALATION Q4H PRN PRN #18 02/07/20 gm NS Allergies Allergy/AdvReac Type Severity Reaction Status Date / Time No Known Allergies Allergy Unverified 10/17/20 12:28 General Stated Complaint: GenMedical [place]: 3 Review of Systems Narrative: Constitutional: denies fevers Eyes: denies eye pain ENT: denies ear pain, dental pain, sore throat Cardiovascular: denies chest pain, edema, reports lightheadedness Respiratory: denies cough, reports baseline shortness of breath possibly now worse GI: denies abdominal pain, vomiting, diarrhea : denies flank pain, dysuria MSK: denies back pain, neck pain, arthralgias, myalgias Skin: denies rash Neuro: denies headaches, numbness, weakness [facility] Medical History (Updated 10/17/20 @ 16:45 by Chintan Hawthorne MD) Acidosis, lactic Acute thrombosis of right basilic vein Adrenal hyperplasia [place] (acute kidney injury) Complication associated with peripherally inserted central catheter (PICC) Constipation, chronic COPD (chronic obstructive pulmonary disease) Diabetes mellitus GERD (gastroesophageal reflux disease) H/O schizophrenia H/O: CVA (cerebrovascular accident) Hypertension MSSA bacteremia Non-insulin dependent type 2 diabetes mellitus Normocytic anemia Oropharyngeal dysphagia Pneumonia Pulmonary emboli Schizo affective schizophrenia Sepsis Family History Mother No problems noted. Social History Smoking/Tobacco Use Status: Former Tobacco Use Tobacco: How many years used: 43 Smoking risk assessment performed?: Yes Alcohol Intake: former Drug use: Occasionally Substance use type: marijuana Do you feel safe at home: Yes Do you feel safe in your relationship?: Yes Exam Narrative Exam Narrative: Constitutional: well and [id number]-[id number]-banymrpit, pleasant, conversing normally HENT: head atraumatic/normocephalic/normal inspection, mucous membranes moist Eyes: conjunctiva normal, sclera normal, pupils 3mm b/l Neck: no stridor, normal ROM, trachea midline Chest: normal inspection Resp: normal work of breathing, speaking in full sentences Cardio: normal rate, normal rhythm GI: abdomen soft, non-tender, non-distended Back: normal inspection, no rash Skin: warm, dry, normal color, no rash Neuro: alert, not altered, grossly non-focal, normal tone Ext: no edema, no posterior calf tenderness to palpation Psych: normal mood, normal affect, normal behavior Course Vital Signs Vital signs: Vital Signs Temperature 36.5 C 10/17/20 11:59 Pulse 98 H 10/17/20 11:59 Respiratory Rate 109 H 10/17/20 11:59 Pulse Oximetry 99 10/17/20 11:59 Temperature 36.5 C 10/17/20 11:59 Temperature Source Temporal Artery Scan 10/17/20 11:59 Pulse 98 H 10/17/20 11:59 Respiratory Rate 109 H 10/17/20 11:59 Respiratory Effort Non-Labored 10/17/20 12:03 Blood Pressure Position Supine 10/17/20 11:59 Pulse Oximetry 99 10/17/20 11:59 Oxygen Delivery Method Room Air 10/17/20 11:59 Oxygen Flow Rate 0 10/17/20 11:59 Pain Level 0 10/17/20 11:59
[2020-10-17] MEDS: Normal Saline 1,000 ML 1000 ML IV (12:48)
[2020-10-17 12:55] LABS: Lactate 3.3 mmol/L (0.6-1.4)
[2020-10-17 13:05] LABS: Absolute Basophil Count 0.02 10^3/uL (0.0-0.2); Absolute Eosinophil Count 0.07 10^3/uL (0.0-0.7); Absolute Lymphocyte Count 1.29 10^3/uL (1.2-3.4); Absolute Monocyte Count 1.09 10^3/uL (0.1-0.8); Absolute Neutrophil Count 5.85 10^3/uL (1.2-6.7); Basophils % 0.2; Eosinophils % 0.8; HCT 34.3 % (40.0-50.0); HGB 11.7 g/dL (13.5-17.5); Immature Grans % 1.2; Lymphocytes % 15.3; MCH 30.5 pg (27.0-33.0); MCHC 34.1 % (32.0-36.0); MCV 89.6 fL (80-95); MPV 9.7 fL (8.0-11.0); Monocytes % 12.9; Neutrophils % 69.6; Nucleated RBC 0 %; Platelet Count 259 10^3/uL (130-400); RBC 3.83 10^6/uL (4.36-5.78); RDW 14.6 % (11.8-14.1); WBC 8.42 10^3/uL (4.4-10.8)
[2020-10-17 13:32] LABS: D-Dimer 347 ng/mlFEU (<500)
--- NOTE | 2020-10-17 13:40 | DI.RAD_ITS ---
EXAM: XR CHEST 2V PA LATERAL CLINICAL HISTORY: SOB TECHNIQUE: 2D digital imaging was performed. COMPARISON: CR XR CHEST 2V PA LATERAL from 05/05/2020 FINDINGS: MEDIASTINUM: Normal. HEART: Normal. PULMONARY VASCULATURE: Normal. LUNGS: There is a linear area in the right middle lobe which may represent scarring or atelectasis. Pneumonia cannot be entirely excluded. A calcified granuloma is again seen in the left upper lobe. The lungs are hyperinflated suggesting underlying COPD. PLEURAL SPACE: No pleural effusion or pneumothorax. BONE:Within normal limits for the patient's age. OTHER FINDINGS:Normal. IMPRESSION: Right middle lobe opacity which may represent scarring or atelectasis. Pneumonia cannot be excluded. Please correlate clinically. DATA REPOSITORY: RADIATION DOSE DELIVERED:
[2020-10-17 14:02] LABS: Troponin I < 0.05 ng/mL (<0.06)
[2020-10-17 14:06] LABS: ALT 19 U/L (16-63); AST 10 U/L (15-37); Albumin 3.1 g/dL (3.4-5.0); Alkaline Phosphatase 77 U/L (46-116); Anion Gap 8.4 mmol/L (3-11); BUN 14 mg/dL (7-18); Bilirubin, Total 0.2 mg/dL (0.2-1.0); CO2 23.6 mmol/L (21.0-32.0); CREATININE 1.04 mg/dL (0.70-1.30); Calcium 8.4 mg/dL (8.5-10.1); Chloride 97 mmol/L (98-107); Glucose 112 mg/dL (74-106); Potassium 4.6 mmol/L (3.5-5.1); Sodium 129 mmol/L (136-145); TSH (W/Ref FT4) 1.52 uIU/mL (0.36-3.74)
[2020-10-17 14:22] LABS: Bilirubin Negative (Negative); Blood Negative (Negative); Clarity Clear (Clear); Glucose Negative (Negative); Ketones Negative (Negative); Leukocyte Esterase Negative (Negative); Nitrite Negative (Negative); Specific Gravity >= 1.030 (1.005-1.025); Urobilinogen 0.2 EU/dL (Up TO 0.2)
[2020-10-17 14:23] LABS: Source Nasopharynx
[2020-10-17 14:40] LABS: Bacteria Rare HPF (Negative); Epithelial Cells Few HPF (Negative); Other Cells Rare Renal (Negative); RBC Negative HPF (0-2); WBC Negative HPF (0-5)
[2020-10-17 14:41] LABS: C & S Indicated? No; Casts Negative LPF (Negative); Crystals Negative HPF (Negative); Mucus Moderate (Negative)
[2020-10-17 15:06] LABS: COVID-19 PCR Negative (Negative); Influenza A PCR Negative (Negative); Influenza B PCR Negative (Negative); RSV PCR Negative (Negative)
[2020-10-17 16:09] LABS: Troponin I < 0.05 ng/mL (<0.06)
--- NOTE | 2020-10-17 16:10 | HPE_ITS ---
Date of service: 10/17/20 Time of Service: 16:10 Assessment and Plan Assessment and plan (1) Non-insulin dependent type 2 diabetes mellitus: Status: Chronic Assessment and plan: Cont piaglitizone. Random glucose on admission was 112. Diabetic diet. (2) Hypertension: Status: Chronic Assessment and plan: Reportedly hypotensive in his fdc. Normotensive now. Cont his home low dose lisinopril 2.5mg daily. monitor. Orthostatics in the AM. Qualifiers: Hypertension type: essential hypertension Qualified Code(s): I10 - Essential (primary) hypertension (3) COPD (chronic obstructive pulmonary disease): Status: Chronic Assessment and plan: No exacerbation. PRN albuterol (4) Schizo affective schizophrenia: Status: Chronic Assessment and plan: Cont his home psychiatric meds. Stable. No behavioral issues. Is quite pleasant and agreeable. (5) Pneumonia: Status: Acute Assessment and plan: Initially given Zosyn and Vancomycin in ED with concerns for HCAP. Last hospitalization was in April. Stopped Vancomycin. CXR with a R middle lobe opacity; PNA vs atelectasis vs scarring. No fever or WBC count. No supplemental O2 requirements. Repeat CBC in AM. Qualifiers: Pneumonia type: due to unspecified organism Laterality: right Lung location: lower lobe of lung Qualified Code(s): J18.9 - Pneumonia, unspecified organism History of Present Illness History of Present Illness Chief Complaint: Hypotension Narrative: This is a 65 yo male with a h/o CVA, DM2, COPD, schizoaffective disorder, oropharyngeal dysphagia, HTN, GERD. He lives in a fdc. His caregivers reported that he has had low BP readings for the last 3 days with SBP in the 70-80's. He was also reported to be lightheaded. No reported fever, cough, SOA, CP, palpitations. No diarrhea, melena, hematochezia, N/V. At time of hospitalist evaluation he denied lightheadedness, but stated he does get dizzy now and then. He stated he had a good appetite. In the ED His BP readings were normal. EKG was sinus rhythm with a rate of 95. WBC count normal at 8.42. Hgb 11.7 which is in his baseline range. Na was 129; 140 on 05/06/2020. K 4.6. Creatinine 1.04. Glucose 112. UA negative. CXR right middle lobe opacity; pneumonia possible. HCAP antibiotic coverage initiated in the ED Zosyn and Vancomycin. Review of Systems All systems reviewed & are unremarkable except as noted in HPI and below PFSH Medical History (Updated 10/17/20 @ 16:45 by Chintan Hawthorne MD) Acidosis, lactic Acute thrombosis of right basilic vein Adrenal hyperplasia [place] (acute kidney injury) Complication associated with peripherally inserted central catheter (PICC) Constipation, chronic COPD (chronic obstructive pulmonary disease) Diabetes mellitus GERD (gastroesophageal reflux disease) H/O schizophrenia H/O: CVA (cerebrovascular accident) Hypertension MSSA bacteremia Non-insulin dependent type 2 diabetes mellitus Normocytic anemia Oropharyngeal dysphagia Pneumonia Pulmonary emboli Schizo affective schizophrenia Sepsis Family History Mother No problems noted. Social History Smoking/Tobacco Use Status: Former Tobacco Use Tobacco: How many years used: 43 Smoking risk assessment performed?: Yes Alcohol Intake: former Drug use: Occasionally Substance use type: marijuana Do you feel safe at home: Yes Do you feel safe in your relationship?: Yes Meds Home Medications and Allergies Home Medications Medication Instructions Recorded Confirmed Type Flovent HFA 2 puff INHALATION BID 06/18/17 10/17/20 History clozapine [Clozaril] 200 - 375 mg PO DIRECTED 06/18/17 10/17/20 History ziprasidone HCl [Geodon] 80 - 160 mg PO DIRECTED 06/18/17 10/17/20 History alum-mag hydroxide-simeth [Mag-Al 30 ml PO Q2H PRN PRN #0 ml 12/05/18 10/17/20 Rx Plus] calcium carbonate 500 mg PO TID PRN PRN #0 tab 12/05/18 10/17/20 Rx Eliquis 5 mg PO BID #60 tab 01/23/19 10/17/20 Rx cyanocobalamin (vitamin B-12) 1,000 mcg PO DAILY #60 tab 01/23/19 10/17/20 Rx [Vitamin B-12] docusate sodium [Colace] 100 mg PO DAILY #30 cap 01/23/19 10/17/20 Rx folic acid 1 mg PO DAILY #30 tab 01/23/19 10/17/20 Rx magnesium chloride [Mag 64] 64 mg PO BID #30 tab 01/23/19 10/17/20 Rx multivitamin [Multiple Vitamins] 1 tab PO DAILY #30 tab 01/23/19 10/17/20 Rx pantoprazole 40 mg PO BID@0730,1999 #30 tab 01/23/19 10/17/20 Rx bupropion HCl 300 mg 24 hr tablet, 300 mg PO QAM 08/14/19 10/17/20 History extended release ferrous gluconate 324 mg (38 mg 324 mg PO DAILY 08/14/19 10/17/20 History iron) tablet pioglitazone 30 mg tablet 30 mg PO DAILY 08/14/19 10/17/20 History simvastatin 20 mg tablet 20 mg PO QHS 08/14/19 10/17/20 History umeclidinium 62.5 mcg-vilanterol 1 inh IH DAILY 08/14/19 10/17/20 History 25 mcg/actuation powdr for inhalation metformin 1,000 - 1,500 mg PO DIRECTED 12/24/19 10/17/20 History albuterol sulfate [Ventolin HFA] 2 puff INHALATION Q4H PRN PRN #18 02/07/20 10/17/20 Rx gm NS acetaminophen [Tylenol Arthritis 650 mg PO BID 04/21/20 10/17/20 History Pain] acetaminophen [Tylenol Extra 1,000 mg PO Q8H PRN 04/21/20 10/17/20 History Strength] hydroxyzine pamoate 25 mg PO .QNOON 04/21/20 10/17/20 History ibuprofen 200 mg PO PRN PRN 04/21/20 10/17/20 History polyethylene glycol 3350 17 g PO DAILY PRN PRN 04/25/20 10/17/20 History hydroxyzine pamoate [Vistaril] 25 mg PO DAILY PRN PRN 10/17/20 10/17/20 History lisinopril 2.5 mg PO DAILY 10/17/20 10/17/20 History Allergies Allergy/AdvReac Type Severity Reaction Status Date / Time No Known Allergies Allergy Unverified 10/17/20 12:28 Exam Narrative Exam Narrative: Patient sitting on side of bed. Friendly/pleasant Const General: cooperative and no acute distress Nutritional Appearance: thin Orientation: alert, oriented to person and oriented to place [facility] Head: normocephalic and atraumatic Eyes General: appearance normal, both eyes and all related structures Sclera: sclerae normal Pupils: PERRL Resp Effort & Inspection: normal respiratory effort Auscultation: clear to auscultation bilaterally Cardio Jugular venous pressure: no JVD Rate: regular rate Rhythm: regular rhythm Heart Sounds: S1 normal and S2 normal GI Palpation: soft and nontender Auscultation: normal bowel sounds Skin Rashes: no rashes Trauma: no lacerations or abrasions Neuro General: moves all extremities and no focal motor deficits Cranial Nerves: able to rotate head bilaterally and able to elevate shoulders bilaterally Speech: speech normal Gait: normal gait Results Labs Result diagrams: 10/17/20 12:45 10/17/20 12:45 Labs: Laboratory Results - last 24 hr 10/17/20 10/17/20 10/17/20 12:45 12:45 12:45 WBC 8.42 RBC 3.83 L Hgb 11.7 L Hct 34.3 L MCV 89.6 MCH 30.5 MCHC 34.1 RDW 14.6 H Plt Count 259 MPV 9.7 Immature Gran % 1.2 Neutrophils % 69.6 Lymphocytes % 15.3 Monocytes % 12.9 Eosinophils % 0.8 Basophils % 0.2 Nucleated RBC % 0 Absolute Neutrophils 5.85 Absolute Lymphocytes 1.29 Absolute Monocytes 1.09 H Absolute Eosinophils 0.07 Absolute Basophils 0.02 D-Dimer VBG Lactate 3.3 H* Sodium 129 L Potassium 4.6 Chloride 97 L Carbon Dioxide 23.6 Anion Gap 8.4 BUN 14 Creatinine 1.04 Estimated GFR/1.73 m2 >= 60.00 Glucose 112 H Calcium 8.4 L Total Bilirubin 0.2 AST 10 L ALT 19 Alkaline Phosphatase 77 Troponin I Total Protein 6.0 L Albumin 3.1 L TSH 1.52 Urine Color Urine Clarity Urine pH Ur Specific [place] Urine Protein Urine Ketones Urine Blood Urine Nitrite Urine Bilirubin Urine Urobilinogen Ur Leukocyte Esterase Urine RBC Urine WBC Ur Epithelial Cells Urine Crystals Urine Bacteria Urine Casts Urine Mucus Urine Other Ur Culture Indicated? Urine Glucose COVID-19 Source SARS-CoV-2 (PCR) Nasopharyn COVID-19 PCR Influenza Type A (PCR) Influenza Type B (PCR) RSV (PCR) Ref Test Perform Site 10/17/20 10/17/20 10/17/20 12:45 12:45 14:10 WBC RBC Hgb Hct MCV MCH MCHC RDW Plt Count MPV Immature Gran % Neutrophils % Lymphocytes % Monocytes % Eosinophils % Basophils % Nucleated RBC % Absolute Neutrophils Absolute Lymphocytes Absolute Monocytes Absolute Eosinophils Absolute Basophils D-Dimer 347 VBG Lactate Sodium Potassium Chloride Carbon Dioxide Anion Gap BUN Creatinine Estimated GFR/1.73 m2 Glucose Calcium Total Bilirubin AST ALT Alkaline Phosphatase Troponin I < 0.05 Total Protein Albumin TSH Urine Color Urine Clarity Urine pH Ur Specific [place] Urine Protein Urine Ketones Urine Blood Urine Nitrite Urine Bilirubin Urine Urobilinogen Ur Leukocyte Esterase Urine RBC Urine WBC Ur Epithelial Cells Urine Crystals Urine Bacteria Urine Casts Urine Mucus Urine Other Ur Culture Indicated? Urine Glucose COVID-19 Source SARS-CoV-2 (PCR) Cancelled Nasopharyn COVID-19 PCR Cancelled Influenza Type A (PCR) Influenza Type B (PCR) RSV (PCR) Ref Test Perform Site Cancelled 10/17/20 10/17/20 10/17/20 14:10 14:18 15:45 WBC RBC Hgb Hct MCV MCH MCHC RDW Plt Count MPV Immature Gran % Neutrophils % Lymphocytes % Monocytes % Eosinophils % Basophils % Nucleated RBC % Absolute Neutrophils Absolute Lymphocytes Absolute Monocytes Absolute Eosinophils Absolute Basophils D-Dimer VBG Lactate Sodium Potassium Chloride Carbon Dioxide Anion Gap BUN Creatinine Estimated GFR/1.73 m2 Glucose Calcium Total Bilirubin AST ALT Alkaline Phosphatase Troponin I < 0.05 Total Protein Albumin TSH Urine Color Yellow Urine Clarity Clear Urine pH 6.0 Ur Specific [place] >= 1.030 H Urine Protein Trace H Urine Ketones Negative Urine Blood Negative Urine Nitrite Negative Urine Bilirubin Negative Urine Urobilinogen 0.2 Ur Leukocyte Esterase Negative Urine RBC Negative Urine WBC Negative Ur Epithelial Cells Few Urine Crystals Negative Urine Bacteria Rare Urine Casts Negative Urine Mucus Moderate Urine Other Rare renal Ur Culture Indicated? No Urine Glucose Negative COVID-19 Source Nasopharynx SARS-CoV-2 (PCR) Negative Nasopharyn COVID-19 PCR Influenza Type A (PCR) Negative Influenza Type B (PCR) Negative RSV (PCR) Negative Ref Test Perform Site Last Vital Signs Temp 36.6 C 10/17/20 15:03 Pulse 88 10/17/20 15:03 Resp 20 10/17/20 15:03 BP 135/71 10/17/20 15:03 Pulse Ox 97 10/17/20 15:03 COVID-19 Screening Have you, or household traveled for leisure in last 14 days?: No Had IN PERSON contact w/suspected or confirmed C-19 person: No
[2020-10-17] MEDS: Normal Saline Flush 10 ML SYR IVP (18:11)
[2020-10-17] MEDS: PIPERACILLIN/TAZO 3.375 GM in Normal Saline 50 ML IVPB (18:34)
[2020-10-17] MEDS: Magnesium Chloride 64 MG TABCR PO (20:37)
[2020-10-17] MEDS: Pantoprazole 40 MG TABCR PO (20:37)
[2020-10-17] MEDS: Mometasone 220 MCG 14 DOSE INHALER 2 PUFF IH (20:37)
[2020-10-17] MEDS: Apixaban 5 MG TAB PO (20:37)
[2020-10-17] MEDS: Simvastatin 20 MG TAB PO (20:37)
[2020-10-18] MEDS: PIPERACILLIN/TAZO 3.375 GM in Normal Saline 50 ML IVPB ×2 (00:03→05:45)
[2020-10-18 03:18] VITALS: BP 129/81; PULSE 87; RESP 20; TEMP 36.8; O2SAT 94
[2020-10-18 06:29] LABS: Absolute Basophil Count 0.02 10^3/uL (0.0-0.2); Absolute Lymphocyte Count 1.78 10^3/uL (1.2-3.4); Absolute Monocyte Count 1.14 10^3/uL (0.1-0.8); Absolute Neutrophil Count 6.24 10^3/uL (1.2-6.7); Basophils % 0.2; Eosinophils % 2.1; HCT 34.3 % (40.0-50.0); HGB 11.7 g/dL (13.5-17.5); Immature Grans % 1.1; Lymphocytes % 18.8; MCH 30.4 pg (27.0-33.0); MCHC 34.1 % (32.0-36.0); MCV 89.1 fL (80-95); Neutrophils % 65.8; Nucleated RBC 0 %; Platelet Count 262 10^3/uL (130-400); RBC 3.85 10^6/uL (4.36-5.78); RDW 14.9 % (11.8-14.1); RDW-SD 47.3 fL; WBC 9.48 10^3/uL (4.4-10.8)
[2020-10-18 06:52] LABS: Anion Gap 7.5 mmol/L (3-11); BUN 12 mg/dL (7-18); CO2 27.5 mmol/L (21.0-32.0); Chloride 102 mmol/L (98-107); Glucose 119 mg/dL (74-106); Magnesium 1.9 mg/dL (1.8-2.4); Potassium 4.8 mmol/L (3.5-5.1); Sodium 137 mmol/L (136-145)
[2020-10-18 07:15] VITALS: BP 129/77; PULSE 83; RESP 19; TEMP 36.5; O2SAT 95
[2020-10-18 07:36] VITALS: PULSE 99
[2020-10-18] MEDS: Mometasone 220 MCG 14 DOSE INHALER 2 PUFF IH (07:56)
[2020-10-18] MEDS: Apixaban 5 MG TAB PO (08:39)
[2020-10-18] MEDS: Lisinopril 5 MG TAB 2.5 MG PO (08:39)
[2020-10-18] MEDS: Docusate Sodium 100 MG CAP PO (08:40)
[2020-10-18] MEDS: buPROPion-XL 150 MG TABCR 300 MG PO (08:40)
[2020-10-18] MEDS: Magnesium Chloride 64 MG TABCR PO (08:40)
[2020-10-18] MEDS: Folic Acid 1 MG TAB PO (08:41)
[2020-10-18] MEDS: Multivitamin TAB 1 TAB PO (08:41)
[2020-10-18] MEDS: Cyanocobalamin 500 MCG TAB 1000 MCG PO (08:41)
[2020-10-18] MEDS: Pantoprazole 40 MG TABCR PO (08:41)
[2020-10-18] MEDS: Ferrous Gluconate 324 MG TAB PO (08:42)
--- NOTE | 2020-10-18 09:59 | DSE_ITS ---
Date of service: 10/18/20 Time of Service: 09:59 DS: Diagnosis Discharge Diagnosis (1) Non-insulin dependent type 2 diabetes mellitus: Status: Chronic (2) Hypertension: Status: Chronic (3) COPD (chronic obstructive pulmonary disease): Status: Chronic (4) Schizo affective schizophrenia: Status: Chronic (5) Pneumonia: Status: Acute Discharge Plan Disposition Patient Disposition: HOME Condition: Good Discharge Details Reason For Visit: PNEUMONIA Admit Date/Time: 10/17/20 15:48 Admit Provider: Chintan Hawthorne Attending Provider: Chintan Hawthorne Primary Care Provider: Columba Carter Hospital Course Hospital Course: This is a 65 yo male with a h/o CVA, DM2, COPD, schizoaffective disorder, oropharyngeal dysphagia, HTN, GERD. He lives in a retirement. His caregivers reported that he has had low BP readings for the last 3 days with SBP in the 70- 80's. He was also reported to be lightheaded. No reported fever, cough, SOA, CP, palpitations. No diarrhea, melena, hematochezia, N/V. At time of hospitalist evaluation he denied lightheadedness, but stated he does get dizzy now and then. He stated he had a good appetite. In the ED His BP readings were normal. EKG was sinus rhythm with a rate of 95. WBC count normal at 8.42. Hgb 11.7 which is in his baseline range. Na was 129; 140 on 05/06/2020. K 4.6. Creatinine 1.04. Glucose 112. UA negative. CXR right middle lobe opacity; pneumonia possible. HCAP antibiotic coverage initiated in the ED Zosyn and Vancomycin. However, his last hospitalization was in April2019 so the vancomycin was discontinued. He remained afebrile. WBC count remained normal. SBP ran in the 120's to 150's. He will complete a course of antibiotics with Augmentin 875mg BID for 5 days. Follow up with PCP in 1-2 weeks. Home Meds and New Rx's Prescriptions: New amoxicillin-pot clavulanate [Augmentin] 875-125 mg tablet 1 tab PO BID Qty: 10 RF: 0 Continued ferrous gluconate 324 mg (38 mg iron) tablet 324 mg PO DAILY RF: 0 pioglitazone [Actos] 30 mg tablet 30 mg PO DAILY RF: 0 simvastatin 20 mg tablet 20 mg PO QHS RF: 0 Anoro Ellipta 62.5-25 mcg/actuation blister with device 1 inh IH DAILY RF: 0 bupropion HCl [Wellbutrin XL] 300 mg tablet extended release 24 hr 300 mg PO QAM RF: 0 calcium carbonate 200 mg calcium (500 mg) Tablet,Chewable 500 mg PO TID PRN PRNQty: 0 RF: 0 alum-mag hydroxide-simeth [Mag-Al Plus] 200-200-20 mg/5 mL Suspension 30 ml PO Q2H PRN PRNQty: 0 RF: 0 Eliquis 5 mg Tablet 5 mg PO BID Qty: 60 RF: 0 multivitamin [Multiple Vitamins] Tablet 1 tab PO DAILY Qty: 30 RF: 0 cyanocobalamin (vitamin B-12) [Vitamin B-12] 500 mcg Tablet 1,000 mcg PO DAILY Qty: 60 RF: 0 pantoprazole 40 mg Tablet,Delayed Release (Dr/Ec) 40 mg PO BID@729,1999 Qty: 30 RF: 0 docusate sodium [Colace] 100 mg Capsule 100 mg PO DAILY Qty: 30 RF: 0 folic acid 1 mg Tablet 1 mg PO DAILY Qty: 30 RF: 0 magnesium chloride [Mag 64] 64 mg Tablet,Delayed Release (Dr/Ec) 64 mg PO BID Qty: 30 RF: 0 metformin 1,000 mg Tablet 1,000 - 1,500 mg PO DIRECTED RF: 0 hydroxyzine pamoate 25 mg capsule 25 mg PO .QNOON RF: 0 ibuprofen 200 mg Tablet 200 mg PO PRN PRNRF: 0 acetaminophen [Tylenol Arthritis Pain] 650 mg Tablet Extended Release 650 mg PO BID RF: 0 acetaminophen [Tylenol Extra Strength] 500 mg Tablet 1,000 mg PO Q8H PRNRF: 0 polyethylene glycol 3350 17 gram/dose powder 17 g PO DAILY PRN PRNRF: 0 hydroxyzine pamoate [Vistaril] 25 mg capsule 25 mg PO DAILY PRN PRNRF: 0 lisinopril 2.5 mg tablet 2.5 mg PO DAILY RF: 0 ziprasidone HCl [Geodon] 80 MG capsule 80 - 160 mg PO DIRECTED RF: 0 clozapine [Clozaril] 100 MG tablet 200 - 375 mg PO DIRECTED RF: 0 Flovent HFA 120 PUFF HFA aerosol inhaler 2 puff Inhalation BID RF: 0 albuterol sulfate [Ventolin HFA] 90 mcg/actuation Hfa Aerosol Inhaler 2 puff inhalation Q4H PRN PRNQty: 18 RF: 0 Discharge Instructions Instructions: Dizziness (GEN) Activity:: Activity as Tolerated Equipment/Supplies:: No Equipment Needed Diet:: Carb Counting Discharge Orders Discharge Orders: Discharge Order (Routine); Ordered 10/18/20 Ordered By: Chintan Hawthorne DS: Summary Status at Discharge Functional status at discharge: independent ambulation Overall status at discharge: patient is back to baseline Mental Status: mental status grossly normal Speech and Movement: speech and movement normal Mood: congruent mood Affect: normal affect Exam Const General: cooperative and no acute distress Nutritional Appearance: thin Orientation: alert, oriented to person and oriented to place Neck Neck: full ROM and no JVD Resp Effort & Inspection: normal respiratory effort Auscultation: clear to auscultation bilaterally Cardio Rate: regular rate Rhythm: regular rhythm Heart Sounds: S1 normal and S2 normal GI Palpation: soft and nontender Skin General skin exam: no rashes or lesions noted Extrem General: no pedal edema and no calf tenderness Psych Mental Status: mental status grossly normal Speech and Movement: speech and movement normal Mood: congruent mood Affect: normal affect DS: Data Vitals/I&O Vitals and I&O: Vital Signs Temperature 36.5 C 10/18/20 07:15 Temperature Source Temporal Artery Scan 10/18/20 07:15 Pulse 99 H 10/18/20 07:36 Pulse Rhythm Regular 10/18/20 08:47 Pulse 87 10/17/20 16:10 Respiratory Rate 19 10/18/20 07:15 Respiratory Effort Non-Labored 10/18/20 08:47 Respiratory Depth Normal 10/18/20 08:47 Respiratory Pattern Normal 10/18/20 08:47 Blood Pressure 129/77 10/18/20 07:15 Blood Pressure Mean 86 10/17/20 16:00 Blood Pressure Position Supine 10/17/20 11:59 Pulse Oximetry 95 10/18/20 07:15 Oxygen Delivery Method Room Air 10/18/20 07:15 Oxygen Flow Rate 0 10/18/20 07:15 Pain Level 0 10/18/20 07:15 Intake & Output 10/17/20 10/17/20 10/18/20 11:59 23:59 11:59 Intake Total 50 / 50 290 / 290 Output Total 750 / 750 600 / 600 Balance -700 / -700 -310 / -310 Weight 65.3 kg 67.132 kg 60 kg Intake: IV 50 / 50 50 / 50 Oral 240 / 240 Output: Urine 750 / 750 600 / 600 Other: Urine Color Pale Yellow Yellow Urine Appearance Clear Clear Urine Odor None Voiding Methods Urinal Toilet Data Completed and Pending Labs on day of discharge: Labs from last 24 hours 10/18/20 10/18/20 10/17/20 06:12 06:12 15:45 WBC 9.48 RBC 3.85 L Hgb 11.7 L Hct 34.3 L MCV 89.1 MCH 30.4 MCHC 34.1 RDW 14.9 H Plt Count 262 MPV 9.0 Immature Gran % 1.1 Neutrophils % 65.8 Lymphocytes % 18.8 Monocytes % 12.0 Eosinophils % 2.1 Basophils % 0.2 Nucleated RBC % 0 Absolute Neutrophils 6.24 Absolute Lymphocytes 1.78 Absolute Monocytes 1.14 H Absolute Eosinophils 0.20 Absolute Basophils 0.02 D-Dimer VBG Lactate Sodium 137 Potassium 4.8 Chloride 102 Carbon Dioxide 27.5 Anion Gap 7.5 BUN 12 Creatinine 1.00 Estimated GFR/1.73 m2 >= 60.00 Glucose 119 H Calcium 9.0 Magnesium 1.9 Total Bilirubin AST ALT Alkaline Phosphatase Troponin I < 0.05 Total Protein Albumin TSH Urine Color Urine Clarity Urine pH Ur Specific [place] Urine Protein Urine Ketones Urine Blood Urine Nitrite Urine Bilirubin Urine Urobilinogen Ur Leukocyte Esterase Urine RBC Urine WBC Ur Epithelial Cells Urine Crystals Urine Bacteria Urine Casts Urine Mucus Urine Other Ur Culture Indicated? Urine Glucose COVID-19 Source SARS-CoV-2 (PCR) Nasopharyn COVID-19 PCR Influenza Type A (PCR) Influenza Type B (PCR) RSV (PCR) Ref Test Perform Site 10/17/20 10/17/20 10/17/20 14:18 14:10 14:10 WBC RBC Hgb Hct MCV MCH MCHC RDW Plt Count MPV Immature Gran % Neutrophils % Lymphocytes % Monocytes % Eosinophils % Basophils % Nucleated RBC % Absolute Neutrophils Absolute Lymphocytes Absolute Monocytes Absolute Eosinophils Absolute Basophils D-Dimer VBG Lactate Sodium Potassium Chloride Carbon Dioxide Anion Gap BUN Creatinine Estimated GFR/1.73 m2 Glucose Calcium Magnesium Total Bilirubin AST ALT Alkaline Phosphatase Troponin I Total Protein Albumin TSH Urine Color Yellow Urine Clarity Clear Urine pH 6.0 Ur Specific [place] >= 1.030 H Urine Protein Trace H Urine Ketones Negative Urine Blood Negative Urine Nitrite Negative Urine Bilirubin Negative Urine Urobilinogen 0.2 Ur Leukocyte Esterase Negative Urine RBC Negative Urine WBC Negative Ur Epithelial Cells Few Urine Crystals Negative Urine Bacteria Rare Urine Casts Negative Urine Mucus Moderate Urine Other Rare renal Ur Culture Indicated? No Urine Glucose Negative COVID-19 Source Nasopharynx SARS-CoV-2 (PCR) Negative Cancelled Nasopharyn COVID-19 PCR Cancelled Influenza Type A (PCR) Negative Influenza Type B (PCR) Negative RSV (PCR) Negative Ref Test Perform Site Cancelled 10/17/20 10/17/20 10/17/20 12:45 12:45 12:45 WBC 8.42 RBC 3.83 L Hgb 11.7 L Hct 34.3 L MCV 89.6 MCH 30.5 MCHC 34.1 RDW 14.6 H Plt Count 259 MPV 9.7 Immature Gran % 1.2 Neutrophils % 69.6 Lymphocytes % 15.3 Monocytes % 12.9 Eosinophils % 0.8 Basophils % 0.2 Nucleated RBC % 0 Absolute Neutrophils 5.85 Absolute Lymphocytes 1.29 Absolute Monocytes 1.09 H Absolute Eosinophils 0.07 Absolute Basophils 0.02 D-Dimer 347 VBG Lactate Sodium Potassium Chloride Carbon Dioxide Anion Gap BUN Creatinine Estimated GFR/1.73 m2 Glucose Calcium Magnesium Total Bilirubin AST ALT Alkaline Phosphatase Troponin I < 0.05 Total Protein Albumin TSH Urine Color Urine Clarity Urine pH Ur Specific [place] Urine Protein Urine Ketones Urine Blood Urine Nitrite Urine Bilirubin Urine Urobilinogen Ur Leukocyte Esterase Urine RBC Urine WBC Ur Epithelial Cells Urine Crystals Urine Bacteria Urine Casts Urine Mucus Urine Other Ur Culture Indicated? Urine Glucose COVID-19 Source SARS-CoV-2 (PCR) Nasopharyn COVID-19 PCR Influenza Type A (PCR) Influenza Type B (PCR) RSV (PCR) Ref Test Perform Site 10/17/20 10/17/20 12:45 12:45 WBC RBC Hgb Hct MCV MCH MCHC RDW Plt Count MPV Immature Gran % Neutrophils % Lymphocytes % Monocytes % Eosinophils % Basophils % Nucleated RBC % Absolute Neutrophils Absolute Lymphocytes Absolute Monocytes Absolute Eosinophils Absolute Basophils D-Dimer VBG Lactate 3.3 H* Sodium 129 L Potassium 4.6 Chloride 97 L Carbon Dioxide 23.6 Anion Gap 8.4 BUN 14 Creatinine 1.04 Estimated GFR/1.73 m2 >= 60.00 Glucose 112 H Calcium 8.4 L Magnesium Total Bilirubin 0.2 AST 10 L ALT 19 Alkaline Phosphatase 77 Troponin I Total Protein 6.0 L Albumin 3.1 L TSH 1.52 Urine Color Urine Clarity Urine pH Ur Specific [place] Urine Protein Urine Ketones Urine Blood Urine Nitrite Urine Bilirubin Urine Urobilinogen Ur Leukocyte Esterase Urine RBC Urine WBC Ur Epithelial Cells Urine Crystals Urine Bacteria Urine Casts Urine Mucus Urine Other Ur Culture Indicated? Urine Glucose COVID-19 Source SARS-CoV-2 (PCR) Nasopharyn COVID-19 PCR Influenza Type A (PCR) Influenza Type B (PCR) RSV (PCR) Ref Test Perform Site 10/17/20 13:30 Blood Blood Culture - Pending 10/17/20 12:45 Blood Blood Culture - Pending Preliminary micro results at discharge 10/17/20 13:30 Blood Culture - Pending Blood 10/17/20 12:45 Blood Culture - Pending Blood [facility] Medical History Acidosis, lactic Acute thrombosis of right basilic vein Adrenal hyperplasia [place] (acute kidney injury) Complication associated with peripherally inserted central catheter (PICC) Constipation, chronic COPD (chronic obstructive pulmonary disease) Diabetes mellitus GERD (gastroesophageal reflux disease) H/O schizophrenia H/O: CVA (cerebrovascular accident) Hypertension MSSA bacteremia Non-insulin dependent type 2 diabetes mellitus Normocytic anemia Oropharyngeal dysphagia Pneumonia Pulmonary emboli Schizo affective schizophrenia Sepsis Family History Mother No problems noted. Social History Smoking/Tobacco Use Status: Former Tobacco Use Tobacco: How many years used: 43 Smoking risk assessment performed?: Yes Alcohol Intake: former Drug use: Occasionally Substance use type: marijuana Do you feel safe at home: Yes Do you feel safe in your relationship?: Yes
--- NOTE | 2020-10-18 11:01 | PDOC.CMIN ---
- If Service Date Differs Date of service: 10/18/20 Time of Service: 11:01 Care Management Initial Assess REASON FOR HOSPITALIZATION:: Hypotension PAST MEDICAL HISTORY/PAST SURGICAL HISTORY:: Medical History (Updated 10/17/20 @ 16:45 by Chintan Hawthorne MD). Acidosis, lactic. Acute thrombosis of right basilic vein. Adrenal hyperplasia. DALLAS (acute kidney injury). Complication associated with peripherally inserted central catheter (PICC). Constipation, chronic. COPD (chronic obstructive pulmonary disease). Diabetes mellitus. GERD (gastroesophageal reflux disease). H/O schizophrenia. H/O: CVA (cerebrovascular accident). Hypertension. MSSA bacteremia. Non-insulin dependent type 2 diabetes mellitus. Normocytic anemia. Oropharyngeal dysphagia. Pneumonia. Pulmonary emboli. Schizo affective schizophrenia. Sepsis PREVIOUS FUNCTIONAL STATUS/SOCIAL/FAMILY SUPPORTS:: halley resides at [facility]. His mental health services are managed by [facility] and the [facility] program. He is independent with some ADL?s and does not use ambulatory aids. Elias is dependent on [facility] for medication management, transportation, and meals. CURRENT FUNCTIONAL STATUS:: Elias was sitting on the side of his bed when CM met withhim. He was pleasant and smiling and shared that he is much better and is looking forward to going back home today. ADVANCE DIRECTIVES:: On file at [facility]. Sarai CONNELL Has patient been provided with info about the portal/API?: No Did the patient sign up for the portal?: No CODE STATUS:: DNR/DNI INSURANCE COVERAGE / FINANCIAL ISSUES:: Medicare. Medicaid CURRENT HOME/COMMUNITY SERVICES/EQUIPMENT:: Elias lives at [facility] and receives services through [facility] and [facility] and utilizes [facility] for transportation PRIMARY CARE PHYSICIAN:: Columba Carter POTENTIAL DISCHARGE NEEDS:: Follow up with PCP and plan of care PATIENT/FAMILY EDUCATION NEEDS:: Discharge plan, limitations, follow up, [facility] Me [facility] TRANSPORTATION:: via [facility] coordinated by [facility] PLAN:: Elias will be discharged home to [facility] this afternoon. He will follow up with his community providers and transport via [facility] coordinated by [facility].
[2020-10-18 11:27] VITALS: BP 107/63; PULSE 94; RESP 18; TEMP 37.2; O2SAT 96
[2020-10-18] MEDS: hydrOXYzine PAMOATE 25 MG CAP PO (12:09)
[2020-10-18 12:15] VITALS: PULSE 96
--- NOTE | 2020-10-18 14:13 | PDOC.CMDIS ---
- If Service Date Differs Date of service: 10/18/20 Time of Service: 14:13 LACE Index Scoring Tool - Questions: Length of Stay (in days): 1 Acuity (Admit via E.D.?): Yes Comorbidities: Cerebrovascular Disease, Diabetes w/o Complication, Chronic Pulmonary Disease E.D. Visits: 4 - Answers: Total Score: 13 Risk of Readmission: High Risk Care Management Discharge Reason for Hospitalization: Hypotension Discharge Plan: Elias will be discharged home to [place] this afternoon. He will follow up with his community providers and transport via [facility] coordinated by CM. Patient/Family Education Needs: Discharge plan, limitations, follow up, Ask Me [facility]
== END 2020-10-18 13:14 | disposition home or self-care (01) ==
LOC: ER 12:15 → MS 16:35
PROVIDERS: Admitting Provider Family Medicine; Emergency Provider Student in an Organized Health Care Education/Training Program; PCP Nurse Practitioner Family; Visit Provider Family Medicine
DX: J18.9 Pneumonia, unspecified organism (principal); J44.0 Chronic obstructive pulmonary disease with (acute) lower respiratory infection; I10 Essential (primary) hypertension; F20.9 Schizophrenia, unspecified; E11.9 Type 2 diabetes mellitus without complications; R13.12 Dysphagia, oropharyngeal phase; K21.9 Gastro-esophageal reflux disease without esophagitis; Z79.84 Long term (current) use of oral hypoglycemic drugs
CPT/HCPCS: 36415; 80048; 80053; 87040; 93005; 94640; 96361; 99222; 99238; 99285; U0003; 71046; 81003; 81015; 83605; 83735; 84443; 84484; 85025; 85379; 93010; 99217; 99219; G0378; J2543

== ENCOUNTER 2020-10-26 02:58 | Outpatient (CLI) | payer MEDICARE, MEDICAID, SELFPAY ==
[2020-10-26 09:38] LABS: Abs Immature Grans 0.13 10^3/uL (0.0-0.06); Absolute Basophil Count 0.02 10^3/uL (0.0-0.2); Absolute Eosinophil Count 0.09 10^3/uL (0.0-0.7); Absolute Lymphocyte Count 1.52 10^3/uL (1.2-3.4); Absolute Neutrophil Count 13.76 10^3/uL (1.2-6.7); Basophils % 0.1; Eosinophils % 0.5; HCT 34.7 % (40.0-50.0); HGB 11.5 g/dL (13.5-17.5); Immature Grans % 0.8; Lymphocytes % 8.9; MCH 30.5 pg (27.0-33.0); MCHC 33.1 % (32.0-36.0); MPV 9.8 fL (8.0-11.0); Monocytes % 9.3; Neutrophils % 80.4; Nucleated RBC 0 %; Platelet Count 300 10^3/uL (130-400); RBC 3.77 10^6/uL (4.36-5.78); RDW 15.3 % (11.8-14.1); RDW-SD 51.3 fL; WBC 17.12 10^3/uL (4.4-10.8)
[2020-10-26 09:40] LABS: Absolute Monocyte Count 1.59 10^3/uL (0.1-0.8)
[2020-10-26 10:07] LABS: Diff Comment Diff Reviewed; RBC Morphology Normal
== END 2020-10-26 03:18 ==
PROVIDERS: Psychiatry & Neurology Psychiatry; PCP Nurse Practitioner Family; Visit Provider Nurse Practitioner Family
DX: F20.9 Schizophrenia, unspecified (principal); Z79.899 Other long term (current) drug therapy
CPT/HCPCS: 36415; 85025

== ENCOUNTER 2020-11-10 12:41 | Outpatient (REF) | payer MEDICARE, MEDICAID, SELFPAY ==
[2020-11-10 15:29] LABS: Abs Immature Grans 0.12 10^3/uL (0.0-0.06); Absolute Basophil Count 0.01 10^3/uL (0.0-0.2); Absolute Eosinophil Count 0.08 10^3/uL (0.0-0.7); Basophils % 0.1; Eosinophils % 0.6; HCT 37.5 % (40.0-50.0); HGB 12.1 g/dL (13.5-17.5); Lymphocytes % 11.3; MCH 30.7 pg (27.0-33.0); MCHC 32.3 % (32.0-36.0); MCV 95.2 fL (80-95); Monocytes % 10.9; Neutrophils % 76.1; Nucleated RBC 0 %; Platelet Count 395 10^3/uL (130-400); RBC 3.94 10^6/uL (4.36-5.78); RDW 14.6 % (11.8-14.1); RDW-SD 51.1 fL; WBC 12.53 10^3/uL (4.4-10.8)
[2020-11-10 15:31] LABS: Absolute Lymphocyte Count 1.42 10^3/uL (1.2-3.4); Absolute Monocyte Count 1.37 10^3/uL (0.1-0.8); Absolute Neutrophil Count 9.54 10^3/uL (1.2-6.7)
== END 2020-11-10 12:42 | disposition home or self-care (01) ==
LOC: NCHCN 12:41
PROVIDERS: PCP Nurse Practitioner Family; Visit Provider Nurse Practitioner Family
DX: D72.829 Elevated white blood cell count, unspecified (principal)
CPT/HCPCS: 85025

== ENCOUNTER 2020-11-22 02:23 | Outpatient (CLI) | payer MEDICARE, MEDICAID, SELFPAY ==
[2020-11-22 10:31] LABS: Abs Immature Grans 0.06 10^3/uL (0.0-0.06); Absolute Basophil Count 0.02 10^3/uL (0.0-0.2); Absolute Eosinophil Count 0.11 10^3/uL (0.0-0.7); Absolute Lymphocyte Count 1.55 10^3/uL (1.2-3.4); Absolute Monocyte Count 1.15 10^3/uL (0.1-0.8); Absolute Neutrophil Count 7.36 10^3/uL (1.2-6.7); Basophils % 0.2; Eosinophils % 1.1; HCT 34.9 % (40.0-50.0); HGB 11.7 g/dL (13.5-17.5); Immature Grans % 0.6; Lymphocytes % 15.1; MCH 31.6 pg (27.0-33.0); MCHC 33.5 % (32.0-36.0); MCV 94.3 fL (80-95); MPV 9.9 fL (8.0-11.0); Monocytes % 11.2; Neutrophils % 71.8; Nucleated RBC 0 %; Platelet Count 289 10^3/uL (130-400); RDW 15.1 % (11.8-14.1); RDW-SD 52.5 fL; WBC 10.25 10^3/uL (4.4-10.8)
== END 2020-11-22 02:24 | disposition home or self-care (01) ==
LOC: LBO 02:23
PROVIDERS: Psychiatry & Neurology Psychiatry; PCP Nurse Practitioner Family; Visit Provider Nurse Practitioner Family
DX: F20.9 Schizophrenia, unspecified (principal); Z79.899 Other long term (current) drug therapy
CPT/HCPCS: 36415; 85025

== ENCOUNTER 2020-12-12 03:24 | Outpatient (CLI) | payer MEDICARE, MEDICAID, SELFPAY ==
[2020-12-12 10:21] LABS: Absolute Basophil Count 0.02 10^3/uL (0.0-0.2); Absolute Eosinophil Count 0.13 10^3/uL (0.0-0.7); Absolute Lymphocyte Count 1.55 10^3/uL (1.2-3.4); Absolute Neutrophil Count 7.94 10^3/uL (1.2-6.7); Basophils % 0.2; Eosinophils % 1.2; HCT 38.5 % (40.0-50.0); HGB 12.5 g/dL (13.5-17.5); Lymphocytes % 14.8; MCH 31.1 pg (27.0-33.0); MCHC 32.5 % (32.0-36.0); MCV 95.8 fL (80-95); MPV 9.6 fL (8.0-11.0); Monocytes % 6.7; Neutrophils % 76.1; Nucleated RBC 0 %; Platelet Count 331 10^3/uL (130-400); RBC 4.02 10^6/uL (4.36-5.78); RDW 14.4 % (11.8-14.1); RDW-SD 51.2 fL; WBC 10.44 10^3/uL (4.4-10.8)
== END 2020-12-12 03:25 | disposition home or self-care (01) ==
LOC: LBO 03:24
PROVIDERS: PCP Nurse Practitioner Family; Visit Provider Psychiatry & Neurology Psychiatry
DX: F20.9 Schizophrenia, unspecified (principal); Z79.899 Other long term (current) drug therapy
CPT/HCPCS: 36415; 85025

== ENCOUNTER 2021-01-03 04:09 | Outpatient (CLI) | payer MEDICARE, MEDICAID, SELFPAY ==
[2021-01-03 10:48] LABS: Absolute Basophil Count 0.02 10^3/uL (0.0-0.2); Absolute Eosinophil Count 0.13 10^3/uL (0.0-0.7); Absolute Lymphocyte Count 1.32 10^3/uL (1.2-3.4); Absolute Monocyte Count 0.82 10^3/uL (0.1-0.8); Absolute Neutrophil Count 7.52 10^3/uL (1.2-6.7); Basophils % 0.2; Eosinophils % 1.3; HCT 36.6 % (40.0-50.0); HGB 11.9 g/dL (13.5-17.5); Lymphocytes % 13.3; MCH 31.4 pg (27.0-33.0); MCHC 32.5 % (32.0-36.0); MCV 96.6 fL (80-95); MPV 9.7 fL (8.0-11.0); Monocytes % 8.3; Neutrophils % 75.9; Nucleated RBC 0 %; Platelet Count 294 10^3/uL (130-400); RBC 3.79 10^6/uL (4.36-5.78); RDW 13.7 % (11.8-14.1); RDW-SD 49.1 fL; WBC 9.91 10^3/uL (4.4-10.8)
== END 2021-01-03 04:10 | disposition home or self-care (01) ==
PROVIDERS: PCP Nurse Practitioner Family; Visit Provider Psychiatry & Neurology Psychiatry
DX: F20.9 Schizophrenia, unspecified (principal); Z79.899 Other long term (current) drug therapy
CPT/HCPCS: 36415; 85025

== ENCOUNTER 2021-02-07 03:41 | Outpatient (CLI) | payer MEDICARE, MEDICAID, SELFPAY ==
[2021-02-07 13:19] LABS: Abs Immature Grans 0.07 10^3/uL (0.0-0.06); Absolute Basophil Count 0.02 10^3/uL (0.0-0.2); Absolute Eosinophil Count 0.14 10^3/uL (0.0-0.7); Absolute Lymphocyte Count 1.92 10^3/uL (1.2-3.4); Absolute Monocyte Count 1.36 10^3/uL (0.1-0.8); Absolute Neutrophil Count 6.97 10^3/uL (1.2-6.7); Basophils % 0.2; Eosinophils % 1.3; HCT 37.5 % (40.0-50.0); HGB 12.3 g/dL (13.5-17.5); Immature Grans % 0.7; Lymphocytes % 18.3; MCH 31.8 pg (27.0-33.0); MCHC 32.8 % (32.0-36.0); MCV 96.9 fL (80-95); MPV 9.5 fL (8.0-11.0); Neutrophils % 66.5; Nucleated RBC 0 %; Platelet Count 269 10^3/uL (130-400); RBC 3.87 10^6/uL (4.36-5.78); RDW-SD 46.3 fL; WBC 10.48 10^3/uL (4.4-10.8)
== END 2021-02-07 03:42 | disposition home or self-care (01) ==
PROVIDERS: PCP Nurse Practitioner Family; Visit Provider Psychiatry & Neurology Psychiatry
DX: F20.9 Schizophrenia, unspecified (principal); Z79.899 Other long term (current) drug therapy
CPT/HCPCS: 36415; 85025

== ENCOUNTER 2021-03-07 03:46 | Outpatient (CLI) | payer MEDICARE, MEDICAID, SELFPAY ==
[2021-03-07 09:01] LABS: Abs Immature Grans 0.11 10^3/uL (0.0-0.06); Absolute Basophil Count 0.02 10^3/uL (0.0-0.2); Absolute Eosinophil Count 0.25 10^3/uL (0.0-0.7); Basophils % 0.1; Eosinophils % 1.6; HCT 38.5 % (40.0-50.0); HGB 12.7 g/dL (13.5-17.5); Immature Grans % 0.7; Lymphocytes % 10.8; Neutrophils % 79.8; Nucleated RBC 0 %; Platelet Count 267 10^3/uL (130-400); RBC 3.97 10^6/uL (4.36-5.78); RDW 12.9 % (11.8-14.1); WBC 15.69 10^3/uL (4.4-10.8)
[2021-03-07 09:03] LABS: Absolute Lymphocyte Count 1.69 10^3/uL (1.2-3.4); Absolute Neutrophil Count 12.52 10^3/uL (1.2-6.7)
== END 2021-03-07 03:47 | disposition home or self-care (01) ==
LOC: LBO 03:47
PROVIDERS: PCP Nurse Practitioner Family; Visit Provider Psychiatry & Neurology Psychiatry
DX: F20.9 Schizophrenia, unspecified (principal); Z79.899 Other long term (current) drug therapy
CPT/HCPCS: 36415; 85025

== ENCOUNTER 2021-03-17 17:14 | Outpatient (REF) | payer MEDICARE, MEDICAID, SELFPAY ==
[2021-03-17 14:00] LABS: Abs Immature Grans 0.07 10^3/uL (0.0-0.06); Absolute Basophil Count 0.02 10^3/uL (0.0-0.2); Absolute Eosinophil Count 0.19 10^3/uL (0.0-0.7); Absolute Lymphocyte Count 1.38 10^3/uL (1.2-3.4); Absolute Monocyte Count 0.83 10^3/uL (0.1-0.8); Basophils % 0.2; HCT 38.4 % (40.0-50.0); HGB 12.8 g/dL (13.5-17.5); Immature Grans % 0.7; Lymphocytes % 14.4; MCH 31.5 pg (27.0-33.0); MCHC 33.3 % (32.0-36.0); MCV 94.6 fL (80-95); MPV 10.8 fL (8.0-11.0); Monocytes % 8.7; Nucleated RBC 0 %; Platelet Count 288 10^3/uL (130-400); RBC 4.06 10^6/uL (4.36-5.78); RDW-SD 44.9 fL; WBC 9.59 10^3/uL (4.4-10.8)
== END 2021-03-17 17:15 | disposition home or self-care (01) ==
LOC: NCHCN 17:14
PROVIDERS: PCP Nurse Practitioner Family; Visit Provider Nurse Practitioner Family
DX: Z00.01 Encounter for general adult medical examination with abnormal findings (principal); I10 Essential (primary) hypertension
CPT/HCPCS: 85025

== ENCOUNTER 2021-03-29 09:08 | Inpatient (IN) | payer MEDICARE, MEDICAID, SELFPAY ==
[2021-03-29] VITALS (41 sets, daily range): BP systolic 102–150; BP diastolic 60–82; PULSE 83–104; RESP 1–34; TEMP 35.9–36.6; O2SAT 89–99
--- NOTE | 2021-03-29 09:00 | RT.EKG_ITS ---
APPROVED REPORT Exam: Resting ECG Reason for Exam: shortness of breath Patient Location: E HR:102 bpm ECG Measurements Heart Rate 102 AXIS IL 147 P 73 QRSd 93 QRS -40 QT 349 T 84 QTc 452 Conclusion Sinus tachycardia...rate> 99 Atrial premature complex...SV complex w/ short R-R interval Left anterior fascicular block...axis(240,-40), init forces inf Physician: Sinus tachycardia, no significant ST elevation or depression. No STEMI. No evidence of s ignificant right heart strain.
--- NOTE | 2021-03-29 09:22 | ED.GENADUL_ITS ---
Discharge Plan Disposition Patient Disposition: [facility] INPATIENT Condition: Stable Discharge Details Chief Complaint: SOB Clinical Impression: Community acquired pneumonia Primary Care Provider: Columba Carter ED Provider: Juan Maldonado Home Meds and New Rx's Prescriptions: No Action ferrous gluconate 324 mg (38 mg iron) tablet 324 mg PO DAILY RF: 0 pioglitazone [Actos] 30 mg tablet 30 mg PO DAILY RF: 0 simvastatin 20 mg tablet 20 mg PO QHS RF: 0 Anoro Ellipta 62.5-25 mcg/actuation blister with device 1 inh IH DAILY RF: 0 bupropion HCl [Wellbutrin XL] 300 mg tablet extended release 24 hr 300 mg PO QAM RF: 0 calcium carbonate 200 mg calcium (500 mg) Tablet,Chewable 500 mg PO TID PRN PRNQty: 0 RF: 0 alum-mag hydroxide-simeth [Mag-Al Plus] 200-200-20 mg/5 mL Suspension 30 ml PO Q2H PRN PRNQty: 0 RF: 0 Eliquis 5 mg Tablet 5 mg PO BID Qty: 60 RF: 0 multivitamin [Multiple Vitamins] Tablet 1 tab PO DAILY Qty: 30 RF: 0 cyanocobalamin (vitamin B-12) [Vitamin B-12] 500 mcg Tablet 1,000 mcg PO DAILY Qty: 60 RF: 0 pantoprazole 40 mg Tablet,Delayed Release (Dr/Ec) 40 mg PO BID@0730,2000 Qty: 30 RF: 0 docusate sodium [Colace] 100 mg Capsule 100 mg PO DAILY Qty: 30 RF: 0 folic acid 1 mg Tablet 1 mg PO DAILY Qty: 30 RF: 0 magnesium chloride [Mag 64] 64 mg Tablet,Delayed Release (Dr/Ec) 64 mg PO BID Qty: 30 RF: 0 metformin 1,000 mg Tablet 1,000 - 1,500 mg PO DIRECTED RF: 0 hydroxyzine pamoate 25 mg capsule 25 mg PO .QNOON RF: 0 ibuprofen 200 mg Tablet 200 mg PO PRN PRNRF: 0 acetaminophen [Tylenol Arthritis Pain] 650 mg Tablet Extended Release 650 mg PO BID RF: 0 acetaminophen [Tylenol Extra Strength] 500 mg Tablet 1,000 mg PO Q8H PRNRF: 0 polyethylene glycol 3350 17 gram/dose powder 17 g PO DAILY PRN PRNRF: 0 hydroxyzine pamoate [Vistaril] 25 mg capsule 25 mg PO DAILY PRN PRNRF: 0 lisinopril 2.5 mg tablet 2.5 mg PO DAILY RF: 0 ziprasidone HCl [Geodon] 80 MG capsule 80 - 160 mg PO DIRECTED RF: 0 clozapine [Clozaril] 100 MG tablet 200 - 375 mg PO DIRECTED RF: 0 Flovent HFA 120 PUFF HFA aerosol inhaler 2 puff Inhalation BID RF: 0 albuterol sulfate [Ventolin HFA] 90 mcg/actuation Hfa Aerosol Inhaler 2 puff inhalation Q4H PRN PRNQty: 18 RF: 0 Medical Decision Making 65-year-old male with a past medical history of schizoaffective disorder, schizophrenia, hypertension, diabetes, previous DVT and PE, previous stroke, who is a somewhat poor historian presents today for evaluation of shortness of breath. [facility]. He has received his Covid vaccine back in November. He states that for the last 2 to 3 days he has had a mild shortness of breath, and mild fatigue stating that he just does not feel well. He denies any cough fever or chills however he is actively coughing here. He denies chest pain or chest tightness. He is unable to discuss the recall of the previous blood clot. It does appear that he is on Eliquis, but uncertain if he is taking the medication. He does state that he has been using some of his breathing treatments at home and this does help a little. He states she last smoked 3 years ago. No other complaints this time. He denies history of heart attack. He denies history of exertional chest pain. Exam demonstrates somewhat poorly appearing male, mild hypoxemia with oxygenation in the high 80s to low 90s. Minimally increased work of breathing, mild wheeze and rhonchi on the left. Differential is highest for COPD exacerbation in conjunction with potential pneumonia, however potential PE secondary to missing doses of Eliquis are certainly on the differential. History is very challenging for the patient. We will get a D-dimer, give duo nebs and Solu-Medrol, evaluate for potential infectious etiology, monitor closel y and reassess. 11:44 AM Patient's D-dimer is negative, troponin normal, EKG unchanged, patient has a notable white count of 19.79, notable left shift. Lactate is only 1.7, electrolytes stable, renal function good. proBNP normal suggesting no heart strain. Covid test negative. X-ray shows left-sided pneumonia, questionable mild right-sided pneumonia as well. Patient remains between 91 and 94% on room air. Minimal symptomatic improvement after duo nebs. The patient's age, risk factors, evidence of pneumonia, living alone status, I do feel that he would benefit from inpatient admission. We have given 2 g of ceftriaxone and 100 mg of doxycycline for coverage of community-acquired pneumonia. We will contact the hospitalist for admission. Patient remains hemodynamically stable 11:54 AM Discussed the case with the hospitalist Dr Hawthorne, he agrees with the assessment and plan. I have extensively reviewed the treatment plan with the patient. I have addressed all patient concerns at this time. I have also discussed the plan with the admitting physician and they agree with the current assessment and plan and have agreed to assume responsibility for the patient. All parties dem onstrate verbal understanding and agreement with our assessment and plan at this time. The documentation in this chart was dictated using [employer] dictation software. Please excuse any dictation errors. 9:33 AM Sinus tachycardia, no significant ST elevation or depression. No STEMI. No evidence of significant right heart strain. HPI General Date/Time Provider Initiated Documentation: 03/29/21 09:11 . HPI Narrative: 65-year-old male with a past medical history of schizoaffective disorder, schizophrenia, hypertension, diabetes, previous DVT and PE, previous stroke, who is a somewhat poor historian presents today for evaluation of shortness of breath. Patient lives at a prison. He has received his Covid vaccine back in November. He states that for the last 2 to 3 days he has had a mild shortness of breath, and mild fatigue stating that he just does not feel well. He denies any cough fever or chills however he is actively coughing here. He denies chest pain or chest tightness. He is unable to discuss the recall of the previous blood clot. It does appear that he is on Eliquis, but uncertain if he is taking the medication. He does state that he has been using some of his breathing treatments at home and this does help a little. He states she last smoked 3 years ago. No other complaints this time. He denies history of heart attack. He denies history of exertional chest pain. Related Data Home Medications Medication Instructions Recorded Confirmed Flovent HFA 2 puff INHALATION BID 06/18/17 03/29/21 clozapine [Clozaril] 200 - 375 mg PO DIRECTED 06/18/17 03/29/21 ziprasidone HCl [Geodon] 80 - 160 mg PO DIRECTED 06/18/17 03/29/21 alum-mag hydroxide-simeth [Mag-Al 30 ml PO Q2H PRN PRN #0 ml 12/05/18 03/29/21 Plus] calcium carbonate 500 mg PO TID PRN PRN #0 tab 12/05/18 03/29/21 Eliquis 5 mg PO BID #60 tab 01/23/19 03/29/21 cyanocobalamin (vitamin B-12) 1,000 mcg PO DAILY #60 tab 01/23/19 03/29/21 [Vitamin B-12] docusate sodium [Colace] 100 mg PO DAILY #30 cap 01/23/19 03/29/21 folic acid 1 mg PO DAILY #30 tab 01/23/19 03/29/21 magnesium chloride [Mag 64] 64 mg PO BID #30 tab 01/23/19 03/29/21 multivitamin [Multiple Vitamins] 1 tab PO DAILY #30 tab 01/23/19 03/29/21 pantoprazole 40 mg PO BID@0730,2000 #30 tab 01/23/19 03/29/21 bupropion HCl 300 mg 24 hr tablet, 300 mg PO QAM 08/14/19 03/29/21 extended release ferrous gluconate 324 mg (38 mg 324 mg PO DAILY 08/14/19 03/29/21 iron) tablet pioglitazone 30 mg tablet 30 mg PO DAILY 08/14/19 03/29/21 simvastatin 20 mg tablet 20 mg PO QHS 08/14/19 03/29/21 umeclidinium 62.5 mcg-vilanterol 1 inh IH DAILY 08/14/19 03/29/21 25 mcg/actuation powdr for inhalation metformin 1,000 - 1,500 mg PO DIRECTED 12/24/19 03/29/21 albuterol sulfate [Ventolin HFA] 2 puff INHALATION Q4H PRN PRN #18 02/07/20 03/29/21 gm NS acetaminophen [Tylenol Arthritis 650 mg PO BID 04/21/20 03/29/21 Pain] acetaminophen [Tylenol Extra 1,000 mg PO Q8H PRN 04/21/20 03/29/21 Strength] hydroxyzine pamoate 25 mg PO .QNOON 04/21/20 03/29/21 ibuprofen 200 mg PO PRN PRN 04/21/20 03/29/21 polyethylene glycol 3350 17 g PO DAILY PRN PRN 04/25/20 03/29/21 hydroxyzine pamoate [Vistaril] 25 mg PO DAILY PRN PRN 10/17/20 03/29/21 lisinopril 2.5 mg PO DAILY 10/17/20 03/29/21 Previous Rx's Medication Instructions Recorded alum-mag hydroxide-simeth [Mag-Al 30 ml PO Q2H PRN PRN #0 ml 12/05/18 Plus] calcium carbonate 500 mg PO TID PRN PRN #0 tab 12/05/18 Eliquis 5 mg PO BID #60 tab 01/23/19 cyanocobalamin (vitamin B-12) 1,000 mcg PO DAILY #60 tab 01/23/19 [Vitamin B-12] docusate sodium [Colace] 100 mg PO DAILY #30 cap 01/23/19 folic acid 1 mg PO DAILY #30 tab 01/23/19 magnesium chloride [Mag 64] 64 mg PO BID #30 tab 01/23/19 multivitamin [Multiple Vitamins] 1 tab PO DAILY #30 tab 01/23/19 pantoprazole 40 mg PO BID@0730,2000 #30 tab 01/23/19 albuterol sulfate [Ventolin HFA] 2 puff INHALATION Q4H PRN PRN #18 02/07/20 gm NS Allergies Allergy/AdvReac Type Severity Reaction Status Date / Time No Known Allergies Allergy Unverified 03/29/21 09:18 General Stated Complaint: SOB KENYON: 2 Review of Systems All systems reviewed & are unremarkable except as noted in HPI and below PFSH Medical History Acidosis, lactic Acute thrombosis of right basilic vein Adrenal hyperplasia DALLAS (acute kidney injury) Complication associated with peripherally inserted central catheter (PICC) Constipation, chronic COPD (chronic obstructive pulmonary disease) Diabetes mellitus GERD (gastroesophageal reflux disease) H/O schizophrenia H/O: CVA (cerebrovascular accident) Hypertension MSSA bacteremia Non-insulin dependent type 2 diabetes mellitus Normocytic anemia Oropharyngeal dysphagia Pneumonia Pulmonary emboli Schizo affective schizophrenia Sepsis Family History Mother No problems noted. Social History Smoking/Tobacco Use Status: Former Tobacco Use Tobacco: How many years used: 43 Smoking risk assessment performed?: Yes Alcohol Intake: former Drug use: Occasionally Substance use type: marijuana Do you feel safe at home: Yes Do you feel safe in your relationship?: Yes Exam Narrative Exam Narrative: 1.Const: Well-nourished, Well-developed, appearing stated age 2.Eyes: PERRL, no conjunctival injection, and symmetrical lids. 3.ENT: Atraumatic external nose and ears. Moist MM. Neck: Symmetric, trachea midline, No thyromegaly. 4.CVS: +S1/S2, No murmurs or gallops. Peripheral pulses 2+ and equal in all extremities. Brisk capillary refill in all extremities. 5.RESP: Unlabored respiratory effort. Mild wheeze and rhonchi on the left lung hernandez, right lung hernandez are clear. 6.GI: Soft, Nontender/Nondistended, No hepatosplenomegaly. No guarding or rebound. 7.MSK: Normocephalic/Atraumatic, Extremities w/o deformity or ttp No cyanosis or clubbing, Normal movement of all extremities, no edema or tenderness in the lower extremities. 8.Skin: Warm, Dry. No rashes or lesions. 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 Sensation grossly intact, no focal neurologic deficits. 10.Psych: (AAO) x3. Appropriate mood and affect Course Vital Signs Vital signs: Vital Signs Temperature 36.6 C 03/29/21 09:14 Pulse 104 H 03/29/21 09:14 Respiratory Rate 22 03/29/21 09:14 Blood Pressure 115/72 03/29/21 09:14 Pulse Oximetry 89 L 03/29/21 09:14 Temperature 36.6 C 03/29/21 09:14 Temperature Source Temporal Artery Scan 03/29/21 09:14 Pulse 104 H 03/29/21 09:14 Respiratory Rate 22 03/29/21 09:14 Respiratory Effort Non-Labored 03/29/21 09:16 Blood Pressure 115/72 03/29/21 09:14 Blood Pressure Position Supine 03/29/21 09:14 Pulse Oximetry 89 L 03/29/21 09:14 Oxygen Delivery Method Room Air 03/29/21 09:14 Oxygen Flow Rate 0 03/29/21 09:14 Pain Level 0 03/29/21 09:14 Lab/Test Results Lab/Test Results: 03/29/21 09:20 Blood Blood Culture - Pending 03/29/21 09:20 Blood Blood Culture - Pending
[2021-03-29] MEDS: Normal Saline 500 ML IV (09:43)
[2021-03-29] MEDS: methylPREDNISolone SUCC 125 MG VIAL IVP (09:43)
[2021-03-29 09:45] LABS: Abs Immature Grans 0.11 10^3/uL (0.0-0.06); Absolute Eosinophil Count 0.06 10^3/uL (0.0-0.7); Absolute Monocyte Count 2.02 10^3/uL (0.1-0.8); Basophils % 0.2; Eosinophils % 0.3; HCT 38.9 % (40.0-50.0); Immature Grans % 0.6; Lymphocytes % 4.6; MCH 31.6 pg (27.0-33.0); MCHC 33.4 % (32.0-36.0); MCV 94.6 fL (80-95); MPV 9.7 fL (8.0-11.0); Monocytes % 10.2; Neutrophils % 84.1; Nucleated RBC 0 %; Platelet Count 276 10^3/uL (130-400); RBC 4.11 10^6/uL (4.36-5.78); RDW 13.2 % (11.8-14.1); RDW-SD 46.1 fL; Source Nasal/Nares; WBC 19.79 10^3/uL (4.4-10.8)
[2021-03-29] MEDS: Albuterol/Ipratropium 3 ML UPD VIAL 9 ML UPD (09:45)
[2021-03-29 09:52] LABS: BE (Venous) -1 mmol/L (-2-3); HCO3 (Venous) 25 mmol/L (23-28); O2 Sat (Venous) 61 %; TCO2 (Venous) 22 mmol/L (24-29); pCO2 (Venous) 44 mmHg (41-51); pH (Venous) 7.36 (7.31-7.41); pO2 (Venous) 34 mmHg
[2021-03-29 10:01] LABS: Lactate 1.7 mmol/L (0.6-1.4)
[2021-03-29 10:07] LABS: Absolute Basophil Count 0.04 10^3/uL (0.0-0.2); Absolute Lymphocyte Count 0.91 10^3/uL (1.2-3.4); Absolute Neutrophil Count 16.64 10^3/uL (1.2-6.7); Diff Comment Agrees w/ Instrument; RBC Morphology Normal
[2021-03-29 10:16] LABS: ALT 21 U/L (16-63); AST 10 U/L (15-37); Albumin 3.7 g/dL (3.4-5.0); Alkaline Phosphatase 92 U/L (46-116); Anion Gap 11.8 mmol/L (3-11); BUN 18 mg/dL (7-18); Bilirubin, Total 0.5 mg/dL (0.2-1.0); CO2 24.2 mmol/L (21.0-32.0); CREATININE 1.3 mg/dL (0.70-1.30); Chloride 98 mmol/L (98-107); D-Dimer 287 ng/mlFEU (<500); Estimated GFR 55.06 (mL/min/1.73m2); Glucose 201 mg/dL (74-106); NT-proBNP 139 pg/mL (<300); Sodium 134 mmol/L (136-145); Total Protein 7.4 g/dL (6.4-8.2)
[2021-03-29 10:17] LABS: Troponin I < 0.05 ng/mL (<0.06)
--- NOTE | 2021-03-29 10:30 | DI.RAD_ITS ---
Exam(s) XR CHEST 2V PA LATERAL EXAM: XR CHEST 2V PA LATERAL CLINICAL HISTORY: coguh, sob, r/o pneumonia. TECHNIQUE: 2D digital imaging was performed. COMPARISON: [facility] XR CHEST 2V PA LATERAL from 10/17/2020 FINDINGS: Heart size is normal. The mediastinum is not widened. There is significant infiltrate in the left lower lobe both behind and adjacent to the left heart sha gay. This appears to be mostly in the lingular segment as well as left lower lobe. Calcified granul omas in the lateral left upper lobe again noted. Density on the right side is combination of atelect asis and probable gynecomastia. IMPRESSION: Left-sided infiltrate. DATA REPOSITORY: RADIATION DOSE DELIVERED:
[2021-03-29 10:49] LABS: COVID-19 PCR Negative (Negative)
[2021-03-29] MEDS: cefTRIAXone 2 GM/50 ML BAG IVPB (11:48)
--- NOTE | 2021-03-29 11:52 | HPE_ITS ---
Date of service: 03/29/21 Time of Service: 11:52 Assessment and Plan Assessment and plan (1) Community acquired pneumonia: Status: Acute Assessment and plan: admitted to med/surg continue ceftriaxone and doxycycline day 1/5 duonebs, pulmonary toilet (2) COPD (chronic obstructive pulmonary disease): Status: Chronic Assessment and plan: given IV steroids and the emergency department. will continue duonebs and an oral burst for 5 days. continue inhalers (3) Non-insulin dependent type 2 diabetes mellitus: Status: Chronic Assessment and plan: diabetic diet sliding scale coverage as needed. anticipate hyperglycemia in setting of infection and steroids. (4) GERD (gastroesophageal reflux disease): Status: Chronic Qualifiers: Esophagitis presence: esophagitis presence not specified Qualified Code(s): K21.9 - Gastro-esophageal reflux disease without esophagitis (5) Hypertension: Status: Chronic Qualifiers: Hypertension type: essential hypertension Qualified Code(s): I10 - Essential (primary) hypertension (6) Schizo affective schizophrenia: Status: Chronic Assessment and plan: stable, will continue home medicaiton (7) DVT prophylaxis: Status: Acute Assessment and plan: anticoagulated on eliquis for history of PE, teds. encourage ambulation and OOB (8) Discharge planning issues: Status: Acute Assessment and plan: return home when medically stable, no services anticipated case management following discussed with DR Hawthorne History of Present Illness History of Present Illness Chief Complaint: shortness of breath Narrative: 65-year-old male with a past medical history of schizoaffective diso rder, schizophrenia, hypertension, diabetes, previous DVT and PE, previous stroke, who is a somewhat poor historian presents today for evaluation of shortness of breath. Patient lives at a assisted. He has received his Covid vaccine back in November. He states that for the last 2 to 3 days he has had a mild shortness of breath, and mild fatigue stating that he just does not feel well. He denies any cough fever or chills however he is actively coughing here. He denies chest pain or chest tightness. Work up in the ED concerning for left sided pneumonia. he was started on ceftriaxone and doxycycline and will be admitted to med/surg for further management. Review of Systems Constitutional Constitutional: Reports fatigue, Denies fever(s) and Reports lethargy ENT Ears, Nose, Mouth, and Throat: Denies vertigo, Denies dizziness, Denies otalgia, Denies nasal congestion and Denies sore throat Cardiovascular Cardiovascular: Denies chest pain, Reports dyspnea and Reports dyspnea on exertion Respiratory Respiratory: Reports cough, Reports dyspnea and Reports dyspnea on exertion Gastrointestinal Gastrointestinal: Denies abdominal pain and Denies nausea Musculoskeletal Musculoskeletal: Denies back pain Neurologic Neurologic: Denies vertigo and Denies dizziness Endocrine Endocrine: Reports fatigue PFSH Medical History Acidosis, lactic Acute thrombosis of right basilic vein Adrenal hyperplasia [place] (acute kidney injury) Complication associated with peripherally inserted central catheter (PICC) Constipation, chronic COPD (chronic obstructive pulmonary disease) Diabetes mellitus GERD (gastroesophageal reflux disease) H/O schizophrenia H/O: CVA (cerebrovascular accident) Hypertension MSSA bacteremia Non-insulin dependent type 2 diabetes mellitus Normocytic anemia Oropharyngeal dysphagia Pneumonia Pulmonary emboli Schizo affective schizophrenia Sepsis Family History Mother No problems noted. Social History Smoking/Tobacco Use Status: Former Tobacco Use Tobacco: How many years used: 43 Smoking risk assessment performed?: Yes Alcohol Intake: former Drug use: Occasionally Substance use type: marijuana Do you feel safe at home: Yes Do you feel safe in your relationship?: Yes Meds Allergies and Home Medications Allergies Allergy/AdvReac Type Severity Reaction Status Date / Time No Known Allergies Allergy Unverified 03/29/21 09:18 Home Medications Medication Instructions Recorded Confirmed Type Flovent HFA 2 puff INHALATION BID 06/18/17 03/29/21 History clozapine [Clozaril] 200 - 375 mg PO DIRECTED 06/18/17 03/29/21 History ziprasidone HCl [Geodon] 80 - 160 mg PO DIRECTED 06/18/17 03/29/21 History alum-mag hydroxide-simeth [Mag-Al 30 ml PO Q2H PRN PRN #0 ml 12/05/18 03/29/21 Rx Plus] calcium carbonate 500 mg PO TID PRN PRN #0 tab 12/05/18 03/29/21 Rx Eliquis 5 mg PO BID #60 tab 01/23/19 03/29/21 Rx cyanocobalamin (vitamin B-12) 1,000 mcg PO DAILY #60 tab 01/23/19 03/29/21 Rx [Vitamin B-12] docusate sodium [Colace] 100 mg PO DAILY #30 cap 01/23/19 03/29/21 Rx folic acid 1 mg PO DAILY #30 tab 01/23/19 03/29/21 Rx magnesium chloride [Mag 64] 64 mg PO BID #30 tab 01/23/19 03/29/21 Rx multivitamin [Multiple Vitamins] 1 tab PO DAILY #30 tab 01/23/19 03/29/21 Rx pantoprazole 40 mg PO BID@0730,1999 #30 tab 01/23/19 03/29/21 Rx bupropion HCl 300 mg 24 hr tablet, 300 mg PO QAM 08/14/19 03/29/21 History extended release ferrous gluconate 324 mg (38 mg 324 mg PO DAILY 08/14/19 03/29/21 History iron) tablet pioglitazone 30 mg tablet 30 mg PO DAILY 08/14/19 03/29/21 History simvastatin 20 mg tablet 20 mg PO QHS 08/14/19 03/29/21 History umeclidinium 62.5 mcg-vilanterol 1 inh IH DAILY 08/14/19 03/29/21 History 25 mcg/actuation powdr for inhalation metformin 1,000 - 1,500 mg PO DIRECTED 12/24/19 03/29/21 History albuterol sulfate [Ventolin HFA] 2 puff INHALATION Q4H PRN PRN #18 02/07/20 03/29/21 Rx gm NS acetaminophen [Tylenol Arthritis 650 mg PO BID 04/21/20 03/29/21 History Pain] acetaminophen [Tylenol Extra 1,000 mg PO Q8H PRN 04/21/20 03/29/21 History Strength] hydroxyzine pamoate 25 mg PO .QNOON 04/21/20 03/29/21 History ibuprofen 200 mg PO PRN PRN 04/21/20 03/29/21 History polyethylene glycol 3350 17 g PO DAILY PRN PRN 04/25/20 03/29/21 History hydroxyzine pamoate [Vistaril] 25 mg PO DAILY PRN PRN 10/17/20 03/29/21 History lisinopril 2.5 mg PO DAILY 10/17/20 03/29/21 History Exam Const General: cooperative, healthy appearing, comfortable and no acute distress Nutritional Appearance: average body habitus Orientation: alert, awake and oriented x3 HENMT Head: normal to inspection, normocephalic and atraumatic Resp Effort & Inspection: normal respiratory effort Auscultation: clear to auscultation bilaterally Cardio Rate: regular rate Rhythm: regular rhythm GI Inspection: normal to inspection Palpation: soft Auscultation: normal bowel sounds Skin General skin exam: no rashes or lesions noted Neuro General: patient alert, patient awake and patient oriented x3 Extrem General: normal to inspection, full ROM and no pedal edema Results Labs Result diagrams: 03/29/21 09:36 03/29/21 09:36 Labs: Laboratory Results - last 24 hr 03/29/21 03/29/21 03/29/21 09:36 09:36 09:36 WBC RBC Hgb Hct MCV MCH MCHC RDW Plt Count MPV Immature Gran % Neutrophils % Lymphocytes % Monocytes % Eosinophils % Basophils % Nucleated RBC % Absolute Neutrophils Absolute Lymphocytes Absolute Monocytes Absolute Eosinophils Absolute Basophils RBC Morphology D-Dimer 287 VBG pH VBG pCO2 VBG pO2 VBG HCO3 VBG Total CO2 VBG O2 Saturation VBG Base Excess VBG Lactate Sodium 134 L Potassium 4.0 Chloride 98 Carbon Dioxide 24.2 Anion Gap 11.8 H BUN 18 Creatinine 1.3 Estimated GFR/1.73 m2 55.06 Glucose 201 H Calcium 9.0 Total Bilirubin 0.5 AST 10 L ALT 21 Alkaline Phosphatase 92 Troponin I < 0.05 NT-Pro-B Natriuret Pep 139 Total Protein 7.4 Albumin 3.7 COVID-19 Source Nasal/Nares SARS-CoV-2 (PCR) Negative 03/29/21 03/29/21 03/29/21 09:36 09:36 09:36 WBC 19.79 H RBC 4.11 L Hgb 13.0 L Hct 38.9 L MCV 94.6 MCH 31.6 MCHC 33.4 RDW 13.2 Plt Count 276 MPV 9.7 Immature Gran % 0.6 Neutrophils % 84.1 Lymphocytes % 4.6 Monocytes % 10.2 Eosinophils % 0.3 Basophils % 0.2 Nucleated RBC % 0 Absolute Neutrophils 16.64 H Absolute Lymphocytes 0.91 L Absolute Monocytes 2.02 H Absolute Eosinophils 0.06 Absolute Basophils 0.04 RBC Morphology Normal D-Dimer VBG pH 7.36 VBG pCO2 44 VBG pO2 34 VBG HCO3 25 VBG Total CO2 22 L VBG O2 Saturation 61 VBG Base Excess -1 VBG Lactate 1.7 H Sodium Potassium Chloride Carbon Dioxide Anion Gap BUN Creatinine Estimated GFR/1.73 m2 Glucose Calcium Total Bilirubin AST ALT Alkaline Phosphatase Troponin I NT-Pro-B Natriuret Pep Total Protein Albumin COVID-19 Source SARS-CoV-2 (PCR) Last Vital Signs Temp 36.6 C 03/29/21 09:14 Pulse 98 H 03/29/21 11:46 Resp 24 03/29/21 11:46 BP 127/60 03/29/21 11:43 Pulse Ox 94 03/29/21 11:46
[2021-03-29] MEDS: DOXYCYCLINE 100 MG in Normal Saline 100 ML IVPB (12:41)
[2021-03-29 13:16] LABS: Troponin I < 0.05 ng/mL (<0.06)
[2021-03-29] MEDS: Ibuprofen 200 MG TAB PO ×2 (15:05→20:38)
[2021-03-29] MEDS: Insulin Aspart 300 UNITS/3 ML PEN SC (16:58)
[2021-03-29] MEDS: Doxycycline Hyclate 100 MG CAP PO (20:38)
[2021-03-29] MEDS: Apixaban 5 MG TAB PO (20:38)
[2021-03-29] MEDS: Pantoprazole 40 MG TABCR PO (20:38)
[2021-03-29] MEDS: Acetaminophen 325 MG TAB 650 MG PO (20:38)
[2021-03-29] MEDS: Magnesium Chloride 64 MG TABCR PO (20:38)
[2021-03-29] MEDS: Mometasone 220 MCG 14 DOSE INHALER 2 PUFF IH (20:42)
[2021-03-29] MEDS: metFORMIN 500 MG TAB 1000 MG PO (21:13)
[2021-03-29] MEDS: Simvastatin 20 MG TAB PO (21:13)
[2021-03-30] MEDS: Ibuprofen 200 MG TAB PO ×2 (02:41→10:11)
[2021-03-30 05:29] VITALS: BP 146/83; PULSE 80; RESP 18; TEMP 35.6; O2SAT 97
[2021-03-30] MEDS: predniSONE 20 MG TAB 40 MG PO (07:51)
[2021-03-30] MEDS: Cyanocobalamin 500 MCG TAB 1000 MCG PO (07:51)
[2021-03-30] MEDS: Apixaban 5 MG TAB PO ×2 (07:52→20:08)
[2021-03-30] MEDS: Folic Acid 1 MG TAB PO (07:52)
[2021-03-30] MEDS: Multivitamin TAB 1 TAB PO (07:52)
[2021-03-30] MEDS: metFORMIN 500 MG TAB 1500 MG PO (07:52)
--- NOTE | 2021-03-30 07:52 | W.INDIABCONS ---
Date of service: 03/29/21 Time of Service: 14:30 Diabetes Inpatient Consult DESCRIPTION/ASSESSMENT: 65 yo M admitted for PNA/COPD. Hx DM2, dysphagia, CVA. Currently 99% IBW. Resides in a long term in [facility]. On CCHO diet and eating ~100% at meals. On B-12 and Fe for micro-nutrient needs. On Metformin for DM 1-2 X/day. He was unable to recall the dose of this med. Reports doing his own finger sticks 1x/day for FBG in am. He stated that the staff at the long term administers meds and tracks his BG. He eats very well there and also enjoys the food here at [facility]. He reports that he can not count CHO's but that the staff at the long term keeps good over watch on his diet r/t DM. Noted: Hx dysphagia and CVA w/o chew/swallow issues at this time. When asked about Target FBG levels he was able to identify those correctly. He stated that he would bring literature provided to his caretakers at the home for thier review. INTERVENTION: Reviewed target BG ranges for PWD and provided take home literature for these parameters.Provided literature on counting CHO's, portion sizes of common foods for 15g CHO servings. Followed up with Hospitalist. PLAN: Koko will provided the DM literature and RD contact info to long term staff for any questions and F/U needed r/t his DM management. Care managers will be notified prior to discharge. Time Spent in Nutritional Counseling and Treatment: 10 minutes face to face
[2021-03-30] MEDS: Acetaminophen 325 MG TAB 650 MG PO ×2 (07:53→20:08)
[2021-03-30] MEDS: buPROPion-XL 150 MG TABCR 300 MG PO (07:53)
[2021-03-30] MEDS: Docusate Sodium 100 MG CAP PO (07:53)
[2021-03-30] MEDS: Doxycycline Hyclate 100 MG CAP PO ×2 (07:53→20:07)
[2021-03-30] MEDS: Lisinopril 5 MG TAB 2.5 MG PO (07:54)
[2021-03-30] MEDS: Magnesium Chloride 64 MG TABCR PO ×2 (07:54→20:08)
[2021-03-30] MEDS: Pantoprazole 40 MG TABCR PO ×2 (07:54→20:08)
[2021-03-30] MEDS: cefTRIAXone 2 GM/50 ML BAG IVPB (07:55)
[2021-03-30 09:01] VITALS: BP 126/81; PULSE 95; RESP 17; TEMP 37.2; O2SAT 94
[2021-03-30] MEDS: Ferrous Gluconate 324 MG TAB PO (10:11)
[2021-03-30] MEDS: Mometasone 220 MCG 14 DOSE INHALER 2 PUFF IH ×2 (10:15→20:08)
[2021-03-30] MEDS: Tiotropium/Olodaterol 10 PUFF INHALER IH (10:15)
--- NOTE | 2021-03-30 11:27 | INITIAL_ITS ---
- If Service Date Differs Date of service: 03/30/21 Time of Service: 11:27 Care Management Initial Assess REASON FOR HOSPITALIZATION:: Pneumonia PAST MEDICAL HISTORY/PAST SURGICAL HISTORY:: Medical History . Acidosis, lactic. Acute thrombosis of right basilic vein. Adrenal hyperplasia. [place] (acute kidney injury). Complication associated with peripherally inserted central catheter (PICC). Constipation, chronic. COPD (chronic obstructive pulmonary disease). Diabetes mellitus. GERD (gastroesophageal reflux disease). H/O schizophrenia. H/O: CVA (cerebrovascular accident). Hypertension. MSSA bacteremia. Non-insulin dependent type 2 diabetes mellitus. Normocytic anemia. Oropharyngeal dysphagia. Pneumonia. Pulmonary emboli. Schizo affective schizophrenia. Sepsis PREVIOUS FUNCTIONAL STATUS/SOCIAL/FAMILY SUPPORTS:: Elias resides at [facility] assisted living. His mental health services are managed by [facility] and the [facility] program. He is independent with some ADL?s and does not use ambulatory aids. Elias is dependent on [facility] for medication management, transportation, and meals. CURRENT FUNCTIONAL STATUS:: Elias was lying in bed when CM met with him. He was pleasant and engaged with CM easily, having recognized CM from previous hospitalizations. Elias informed CM that he had a lot of pain I hurt all over. When asked, he stated that he had told the nurse and had been medicated but was still uncomfortable. CM discussed with his nurse who had reported this to the provider and tests and orders were initiated. Elias shared that he is growing a garden again this year and that it is the best one he has ever had. He expressed his hope that it will rain soon so his plants will continue to grow. ADVANCE DIRECTIVES:: On file at [facility]. Sarai CONNELL Has patient been provided with info about the portal/API?: Yes Did the patient sign up for the portal?: No CODE STATUS:: DNR/DNI INSURANCE COVERAGE / FINANCIAL ISSUES:: Medicare. Medicaid CURRENT HOME/COMMUNITY SERVICES/EQUIPMENT:: Elias lives at [facility] [place] [facility] and receives services through [facility] and [facility] and utilizes [facility] for transportation PRIMARY CARE PHYSICIAN:: Columba Carter POTENTIAL DISCHARGE NEEDS:: Follow up with PCP and plan of care PATIENT/FAMILY EDUCATION NEEDS:: Review of discharge instructions, follow up plan, Ask Me Three TRANSPORTATION:: via [facility] coordinated by CM PLAN:: Elias will be discharged home with no new services. He will follow up with his PCP and plan of care and transport with [facility]. CM will continue to support Elias and assess for discharge needs.
[2021-03-30] MEDS: hydrOXYzine PAMOATE 25 MG CAP PO (12:21)
[2021-03-30] MEDS: Insulin Aspart 300 UNITS/3 ML PEN SC ×2 (12:21→17:05)
--- NOTE | 2021-03-30 13:00 | RT.EKG_ITS ---
APPROVED REPORT Exam: Resting ECG Reason for Exam: pain Patient Location: I HR:96 bpm ECG Measurements Heart Rate 96 AXIS WV 155 P 62 QRSd 105 QRS -32 QT 369 T 60 QTc 467 Conclusion Sinus rhythm...normal P axis, V-rate 60- 99 Left axis deviation...QRS axis (-30,-90)
--- NOTE | 2021-03-30 13:11 | W.PM.PROGNOT ---
Date of Service Date of service: 03/30/21 Time of Service: 13:11 Assessment and Plan Assessment and plan (1) Pain: Status: Acute Assessment and plan: patient unable to provide good history about his 6/10 pain. denies chest pain, back pain, abdominal pain or muscular pain. will obtain EKG and troponin and provide 325 mg of ASA. will repeat troponin in 4 hours to r/o ACS. (2) Community acquired pneumonia: Status: Acute Assessment and plan: continue with cefdinir and doxycycline day 2/5 as he is refusing IV. his respiratory status is stable requiring no oxygen duonebs, pulmonary toilet (3) COPD (chronic obstructive pulmonary disease): Status: Chronic Assessment and plan: given IV steroids and the emergency department. will continue duonebs and an oral burst for 5 days. continue inhalers (4) Non-insulin dependent type 2 diabetes mellitus: Status: Chronic Assessment and plan: diabetic diet sliding scale coverage as needed. anticipate hyperglycemia in setting of infection and steroids. (5) GERD (gastroesophageal reflux disease): Status: Chronic Assessment and plan: continue bid pantoprazole Qualifiers: Esophagitis presence: esophagitis presence not specified Qualified Code(s): K21.9 - Gastro-esophageal reflux disease without esophagitis (6) Hypertension: Status: Chronic Qualifiers: Hypertension type: essential hypertension Qualified Code(s): I10 - Essential (primary) hypertension (7) Schizo affective schizophrenia: Status: Chronic Assessment and plan: stable, will continue home medicaiton (8) DVT prophylaxis: Status: Acute Assessment and plan: anticoagulated on eliquis for history of PE, teds. encourage ambulation and OOB (9) Discharge planning issues: Status: Acute Assessment and plan: return home when medically stable, no services anticipated case management following discussed with DR Hawthorne Subjective Subjective Patient reports: tolerating liquids well, tolerating a regular diet and afebrile; denies shortness of breath Interval history since last seen: c/o generalized pain, unable to describe or say where his pain is. rating it a 6/10. did not respond to acetaminophen or ibuprofen. refusing IV antibiotics. Exam Const General: cooperative, healthy appearing, comfortable and no acute distress Nutritional Appearance: average body habitus Orientation: alert, awake and oriented x3 HENMT Head: normal to inspection, normocephalic and atraumatic Resp Effort & Inspection: normal respiratory effort Auscultation: clear to auscultation bilaterally Cardio Rate: regular rate Rhythm: regular rhythm GI Inspection: normal to inspection Palpation: soft Auscultation: normal bowel sounds Skin General skin exam: no rashes or lesions noted Neuro General: patient alert, patient awake and patient oriented x3 Extrem General: normal to inspection, full ROM and no pedal edema Objective Last Vital Signs Temp 37.2 C 03/30/21 09:01 Pulse 95 H 03/30/21 09:01 Resp 17 03/30/21 09:01 BP 126/81 03/30/21 09:01 Pulse Ox 94 03/30/21 09:01 Laboratory Results - last 24 hr 03/29/21 12:52 Troponin I < 0.05
[2021-03-30 13:36] LABS: Troponin I < 0.05 ng/mL (<0.06)
[2021-03-30] MEDS: Aspirin 81 MG CHEW 324 MG CH (13:38)
[2021-03-30 15:59] VITALS: BP 145/77; PULSE 92; RESP 18; TEMP 36.5; O2SAT 97
[2021-03-30] MEDS: Cefdinir 300 MG CAP PO (20:07)
[2021-03-30] MEDS: Simvastatin 20 MG TAB PO (21:55)
[2021-03-30] MEDS: metFORMIN 500 MG TAB 1000 MG PO (21:55)
[2021-03-30 23:20] VITALS: BP 139/87; PULSE 76; RESP 19; TEMP 36.3; O2SAT 98
[2021-03-31] MEDS: Lisinopril 5 MG TAB 2.5 MG PO (07:31)
[2021-03-31] MEDS: metFORMIN 500 MG TAB 1500 MG PO (07:32)
[2021-03-31] MEDS: buPROPion-XL 150 MG TABCR 300 MG PO (07:33)
[2021-03-31] MEDS: Magnesium Chloride 64 MG TABCR PO (07:33)
[2021-03-31] MEDS: Cefdinir 300 MG CAP PO (07:34)
[2021-03-31] MEDS: Doxycycline Hyclate 100 MG CAP PO (07:34)
[2021-03-31] MEDS: Docusate Sodium 100 MG CAP PO (07:35)
[2021-03-31] MEDS: Acetaminophen 325 MG TAB 650 MG PO (07:35)
[2021-03-31] MEDS: Multivitamin TAB 1 TAB PO (07:35)
[2021-03-31] MEDS: Cyanocobalamin 500 MCG TAB 1000 MCG PO (07:35)
[2021-03-31] MEDS: Apixaban 5 MG TAB PO (07:36)
[2021-03-31] MEDS: Pantoprazole 40 MG TABCR PO (07:36)
[2021-03-31] MEDS: Folic Acid 1 MG TAB PO (07:36)
[2021-03-31] MEDS: predniSONE 20 MG TAB 40 MG PO (07:36)
[2021-03-31] MEDS: Tiotropium/Olodaterol 10 PUFF INHALER IH (07:40)
[2021-03-31] MEDS: Mometasone 220 MCG 14 DOSE INHALER 2 PUFF IH (07:41)
--- NOTE | 2021-03-31 07:49 | CMPROGNOTE_ITS ---
- If Service Date Differs Date of service: 03/31/21 Time of Service: 07:49 Care Management Progress Note S/O: A: Elias is a 65 year old man admitted on 03/29/21 with pneumonia P: Elias will be discharged home with no new services. He will follow up with his PCP and plan of care and transport with [facility]. CM will continue to support Elias and assess for discharge needs.
[2021-03-31 08:21] VITALS: BP 120/66; PULSE 92; RESP 18; TEMP 36.6; O2SAT 96
--- NOTE | 2021-03-31 11:13 | DSE_ITS ---
Date of service: 03/31/21 Time of Service: 11:13 DS: Diagnosis Discharge Diagnosis (1) Pain: Start date: 03/31/21 Start time: 11:13 Status: Chronic Asessment and Plan: Patient has chronic pain, can not usually specify where pain is, sometimes in his back, sometimes in his legs. Today he has no complaints. He is ready to go home. (2) Community acquired pneumonia: Start date: 03/31/21 Start time: 11:19 Status: Acute Asessment and Plan: will continue cefidinir and doxy x 5 days 3/5. No oxgyen required. LS with slight rhonchi He did refuse IV while in the hospital (3) COPD (chronic obstructive pulmonary disease): Start date: 03/31/21 Start time: 11:20 Status: Chronic Asessment and Plan: continue steroid burst day 3/5 (4) Non-insulin dependent type 2 diabetes mellitus: Start date: 03/31/21 Start time: 11:23 Status: Chronic Asessment and Plan: diabetic diet continue continue home regimen (5) GERD (gastroesophageal reflux disease): Start date: 03/31/21 Start time: 11:23 Status: Chronic Asessment and Plan: continue protonix BID (6) Hypertension: Start date: 03/31/21 Start time: 11:27 Status: Chronic Asessment and Plan: not on any meds (7) Schizo affective schizophrenia: Start date: 03/31/21 Start time: 11:33 Status: Chronic Asessment and Plan: stable, will continue home medication above discussed with Dr. Hawthorne Discharge Plan Disposition Patient Disposition: HOME Condition: Stable Discharge Details Reason For Visit: Pneumonia Admit Date/Time: 03/29/21 11:50 Admit Provider: Chintan Hawthorne Attending Provider: Chintan Hawthorne Primary Care Provider: Columba Carter Hospital Course Hospital Course: 65-year-old male with a past medical history of schizoaffective disorder, schizophrenia, hypertension, diabetes, previous DVT and PE, previous stroke, who is a somewhat poor historian presented to [facility] for evaluation of shortness of breath. Patient lives at a senior living. He received his Covid vaccine back in November. He states that for the last 2 to 3 days he has had a mild shortness of breath, and mild fatigue stating that he just does not feel well. He denies any cough fever or chills however he is actively coughing here. He denies chest pain or chest tightness. Work up in the ED concerning for left sided pneumonia. he was started on cefdinir and doxycycline because he refused IV and will be admitted to med/surg for further management. He is on day 3/5 of treatment. He will discharged home on these medications with steroid burst. He c/o pain but he has chronic pain. He is ready to be discharged and is being discharged home. Home Meds and New Rx's Prescriptions: New cefdinir 300 mg Capsule 300 mg PO BID Qty: 5 RF: 0 doxycycline hyclate 100 mg Capsule 100 mg PO BID Qty: 5 RF: 0 prednisone 20 mg Tablet 40 mg PO DAILY Qty: 4 RF: 0 Continued ferrous gluconate 324 mg (38 mg iron) tablet 324 mg PO DAILY RF: 0 pioglitazone [Actos] 30 mg tablet 30 mg PO DAILY RF: 0 simvastatin 20 mg tablet 20 mg PO QHS RF: 0 Anoro Ellipta 62.5-25 mcg/actuation blister with device 1 inh IH DAILY RF: 0 bupropion HCl [Wellbutrin XL] 300 mg tablet extended release 24 hr 300 mg PO QAM RF: 0 calcium carbonate 200 mg calcium (500 mg) Tablet,Chewable 500 mg PO TID PRN PRNQty: 0 RF: 0 alum-mag hydroxide-simeth [Mag-Al Plus] 200-200-20 mg/5 mL Suspension 30 ml PO Q2H PRN PRNQty: 0 RF: 0 Eliquis 5 mg Tablet 5 mg PO BID Qty: 60 RF: 0 multivitamin [Multiple Vitamins] Tablet 1 tab PO DAILY Qty: 30 RF: 0 cyanocobalamin (vitamin B-12) [Vitamin B-12] 500 mcg Tablet 1,000 mcg PO DAILY Qty: 60 RF: 0 pantoprazole 40 mg Tablet,Delayed Release (Dr/Ec) 40 mg PO BID@0730,1999 Qty: 30 RF: 0 docusate sodium [Colace] 100 mg Capsule 100 mg PO DAILY Qty: 30 RF: 0 folic acid 1 mg Tablet 1 mg PO DAILY Qty: 30 RF: 0 magnesium chloride [Mag 64] 64 mg Tablet,Delayed Release (Dr/Ec) 64 mg PO BID Qty: 30 RF: 0 metformin 1,000 mg Tablet 1,000 - 1,500 mg PO DIRECTED RF: 0 hydroxyzine pamoate 25 mg capsule 25 mg PO .QNOON RF: 0 ibuprofen 200 mg Tablet 200 mg PO PRN PRNRF: 0 acetaminophen [Tylenol Arthritis Pain] 650 mg Tablet Extended Release 650 mg PO BID RF: 0 acetaminophen [Tylenol Extra Strength] 500 mg Tablet 1,000 mg PO Q8H PRNRF: 0 polyethylene glycol 3350 17 gram/dose powder 17 g PO DAILY PRN PRNRF: 0 hydroxyzine pamoate [Vistaril] 25 mg capsule 25 mg PO DAILY PRN PRNRF: 0 lisinopril 2.5 mg tablet 2.5 mg PO DAILY RF: 0 ziprasidone HCl [Geodon] 80 MG capsule 80 - 160 mg PO DIRECTED RF: 0 clozapine [Clozaril] 100 MG tablet 200 - 375 mg PO DIRECTED RF: 0 Flovent HFA 120 PUFF HFA aerosol inhaler 2 puff Inhalation BID RF: 0 albuterol sulfate [Ventolin HFA] 90 mcg/actuation Hfa Aerosol Inhaler 2 puff inhalation Q4H PRN PRNQty: 18 RF: 0 Discharge Instructions Instructions: Chronic Pain (DC), Community Acquired Pneumonia (DC) Additional Instructions: Take medication as prescribed Follow up with PCP in 1-2 weeks Activity:: Activity as Tolerated Equipment/Supplies:: No Equipment Needed Diet:: Carb Counting Discharge Orders Discharge Orders: Discharge Order (Routine); Ordered 03/31/21 Ordered By: Ellen Chanel DS: Summary Time Spent with Patient providing and/or coordinating discharge services: Less than 30 minutes Status at Discharge Functional status at discharge: independent ambulation Overall status at discharge: patient is progressing back to baseline Mental Status: other Speech and Movement: speech and movement normal Mood: other Affect: blunted Exam Const General: cooperative, healthy appearing, comfortable and no acute distress Nutritional Appearance: average body habitus Orientation: alert, awake and oriented x3 HENMT Head: normal to inspection, normocephalic and atraumatic Resp Effort & Inspection: normal respiratory effort Auscultation: clear to auscultation bilaterally Cardio Rate: regular rate Rhythm: regular rhythm GI Inspection: normal to inspection Palpation: soft Auscultation: normal bowel sounds Skin General skin exam: no rashes or lesions noted Neuro General: patient alert, patient awake and patient oriented x3 Extrem General: normal to inspection, full ROM and no pedal edema Psych Mental Status: other Speech and Movement: speech and movement normal Mood: other Affect: blunted DS: Data Vitals/I&O Vitals and I&O: Vital Signs Temperature 36.6 C 03/31/21 08:21 Temperature Source Tympanic 03/31/21 08:21 Pulse 92 H 03/31/21 08:21 Pulse Rhythm Regular 03/31/21 07:45 Pulse 100 H 03/29/21 12:40 Respiratory Rate 18 03/31/21 08:21 Respiratory Effort 03/31/21 07:45 Respiratory Depth Normal 03/31/21 07:45 Respiratory Pattern Normal 03/31/21 07:45 Blood Pressure 120/66 03/31/21 08:21 Blood Pressure Mean 84 03/29/21 12:31 Blood Pressure Position Supine 03/29/21 09:14 Pulse Oximetry 96 03/31/21 08:21 Oxygen Delivery Method Room Air 03/31/21 08:21 Oxygen Flow Rate 0 03/31/21 08:21 Pain Level 0 03/31/21 08:21 Intake & Output 03/30/21 03/30/21 03/31/21 11:59 23:59 11:59 Intake Total 690 / 1370 680 / 1370 470 / 470 Balance 690 / 1370 680 / 1370 470 / 470 Intake: IV Oral 680 / 1360 680 / 1360 460 / 460 Other: Urine Color Yellow Yellow Urine Appearance Clear Clear Clear Urine Odor Normal Normal Comment pT voids independent Voiding Methods Toilet Toilet Toilet Data Completed and Pending Completed studies during hospitalization [Text1]: Exam(s) XR CHEST 2V PA LATERAL EXAM: XR CHEST 2V PA LATERAL CLINICAL HISTORY: coguh, sob, r/o pneumonia. TECHNIQUE: 2D digital imaging was performed. COMPARISON: CR XR CHEST 2V PA LATERAL from 10/17/2020 FINDINGS: Heart size is normal. The mediastinum is not widened. There is significant infiltrate in the left lower lobe both behind and adjacent to the left heart shadow. This appears to be mostly in the lingular segment as well as left lower lobe. Calcified granulomas in the lateral left upper lobe again noted. Density on the right side is combination of atelectasis and probable gynecomastia. Labs on day of discharge: Labs from last 24 hours 03/30/21 13:11 Troponin I < 0.05 Preliminary micro results at discharge 03/29/21 10:25 Blood Culture - Preliminary Blood NO GROWTH 24 HOURS 03/29/21 09:41 Blood Culture - Preliminary Blood NO GROWTH 24 HOURS [facility] Medical History Acidosis, lactic Acute thrombosis of right basilic vein Adrenal hyperplasia [place] (acute kidney injury) Complication associated with peripherally inserted central catheter (PICC) Constipation, chronic COPD (chronic obstructive pulmonary disease) Diabetes mellitus GERD (gastroesophageal reflux disease) H/O schizophrenia H/O: CVA (cerebrovascular accident) Hypertension MSSA bacteremia Non-insulin dependent type 2 diabetes mellitus Normocytic anemia Oropharyngeal dysphagia Pneumonia Pulmonary emboli Schizo affective schizophrenia Sepsis Family History Mother No problems noted. Social History Smoking/Tobacco Use Status: Former Tobacco Use Tobacco: How many years used: 43 Smoking risk assessment performed?: Yes Alcohol Intake: former Drug use: Occasionally Substance use type: marijuana Do you feel safe at home: Yes Do you feel safe in your relationship?: Yes
[2021-03-31] MEDS: Ferrous Gluconate 324 MG TAB PO (11:22)
--- NOTE | 2021-03-31 11:24 | PDOC.CMDIS ---
- If Service Date Differs Date of service: 03/31/21 Time of Service: 11:24 LACE Index Scoring Tool - Questions: Length of Stay (in days): 2 Acuity (Admit via E.D.?): Yes Comorbidities: Cerebrovascular Disease, Diabetes w/o Complication, Chronic Pulmonary Disease E.D. Visits: 4 - Answers: Total Score: 14 Risk of Readmission: High Risk Care Management Discharge Reason for Hospitalization: Pneumonia Discharge Plan: Elias will be discharged home to [facility] where he resides. He will tramsport via RCT coordinated by CM. 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
[2021-03-31] MEDS: hydrOXYzine PAMOATE 25 MG CAP PO (12:43)
== END 2021-03-31 13:14 | disposition home or self-care (01) | DRG 190 ==
LOC: ER 11:55 → MS 13:16
PROVIDERS: Nurse Practitioner Acute Care; Admitting Provider Family Medicine; Emergency Provider Student in an Organized Health Care Education/Training Program; PCP Nurse Practitioner Family; Visit Provider Family Medicine
DX: J44.0 Chronic obstructive pulmonary disease with (acute) lower respiratory infection (principal); J18.9 Pneumonia, unspecified organism; E11.9 Type 2 diabetes mellitus without complications; K21.9 Gastro-esophageal reflux disease without esophagitis; I10 Essential (primary) hypertension; F20.9 Schizophrenia, unspecified; D64.9 Anemia, unspecified; G89.29 Other chronic pain; M54.9 Dorsalgia, unspecified; Z20.822 Contact with and (suspected) exposure to COVID-19; Z86.711 Personal history of pulmonary embolism; Z86.73 Personal history of transient ischemic attack (TIA), and cerebral infarction without residual deficits; Z86.718 Personal history of other venous thrombosis and embolism; Z79.01 Long term (current) use of anticoagulants
CPT/HCPCS: 36415; 80053; 82805; 87040; 87635; 93005; 96361; 96365; 96367; 96375; 99285; 71046; 83605; 83880; 84484; 85025; 85379; 93010; 99223; 99233; 99238; J2930; J3490; J7512; J7620

== ENCOUNTER 2021-04-04 03:59 | Outpatient (CLI) | payer MEDICARE, MEDICAID, SELFPAY ==
[2021-04-04 10:05] LABS: HCT 38.8 % (40.0-50.0); MCH 31.3 pg (27.0-33.0); MCHC 33.5 % (32.0-36.0); MCV 93.3 fL (80-95); MPV 9.3 fL (8.0-11.0); Nucleated RBC 0 %; Platelet Count 351 10^3/uL (130-400); RBC 4.16 10^6/uL (4.36-5.78); RDW 13.3 % (11.8-14.1); RDW-SD 45.5 fL; WBC 18.95 10^3/uL (4.4-10.8)
[2021-04-04 10:25] LABS: Absolute Eosinophil Count 0.19 10^3/uL (0.0-0.7); Absolute Lymphocyte Count 2.08 10^3/uL (1.2-3.4); Absolute Monocyte Count 0.95 10^3/uL (0.1-0.8); Absolute Neutrophil Count 15.54 10^3/uL (1.2-6.7); Atypical Lymphocytes % 1; Bands % 5; Diff Comment Manual Differential; Metamyelocytes % 1
[2021-04-04 10:26] LABS: RBC Morphology Normal
== END 2021-04-04 04:00 | disposition home or self-care (01) ==
PROVIDERS: PCP Nurse Practitioner Family; Visit Provider Psychiatry & Neurology Psychiatry
DX: F20.9 Schizophrenia, unspecified (principal); Z79.899 Other long term (current) drug therapy
CPT/HCPCS: 36415; 85025

== ENCOUNTER 2021-05-02 03:52 | Outpatient (CLI) | payer MEDICARE, MEDICAID, SELFPAY ==
[2021-05-02 10:41] LABS: Abs Immature Grans 0.09 10^3/uL (0.0-0.06); Absolute Basophil Count 0.02 10^3/uL (0.0-0.2); Absolute Eosinophil Count 0.14 10^3/uL (0.0-0.7); Absolute Lymphocyte Count 1.58 10^3/uL (1.2-3.4); Absolute Monocyte Count 1.38 10^3/uL (0.1-0.8); Absolute Neutrophil Count 7.68 10^3/uL (1.2-6.7); Basophils % 0.2; Eosinophils % 1.3; HCT 37.9 % (40.0-50.0); HGB 12.3 g/dL (13.5-17.5); Immature Grans % 0.8; Lymphocytes % 14.5; MCH 31.3 pg (27.0-33.0); MCHC 32.5 % (32.0-36.0); MCV 96.4 fL (80-95); MPV 9.5 fL (8.0-11.0); Monocytes % 12.7; Neutrophils % 70.5; Nucleated RBC 0 %; Platelet Count 255 10^3/uL (130-400); RBC 3.93 10^6/uL (4.36-5.78); RDW 14.2 % (11.8-14.1); RDW-SD 50.4 fL; WBC 10.89 10^3/uL (4.4-10.8)
== END 2021-05-02 03:53 | disposition home or self-care (01) ==
LOC: LBO 03:53
PROVIDERS: PCP Nurse Practitioner Family; Visit Provider Psychiatry & Neurology Psychiatry
DX: F20.9 Schizophrenia, unspecified (principal); Z79.899 Other long term (current) drug therapy
CPT/HCPCS: 36415; 85025

== ENCOUNTER 2021-05-10 02:29 | Outpatient (CLI) | payer MEDICARE, MEDICAID, SELFPAY ==
--- NOTE | 2021-05-10 | DI.CT_ITS ---
Exam(s) CT CHEST WO EXAM: CT CHEST WO CLINICAL HISTORY: H/O RECURRENT PNEUMONIA, Z87.01,NOW SCATTERED RHONCHI TECHNIQUE: Imaging Protocol: Axial computed tomography images with coronal and sagittal reformatted images were created and reviewed CONTRAST MATERIAL: Intravenous: Omnipaque 350 Contrast volume:structured data in ml. COMPARISON: CT CT CHEST WO from 04/12/[address] CHEST/ABD/PEL W from 04/21/[address] CHEST/ABD/PEL W from 04/21/[address] CHEST PE CTA from 05/03/2020 CR XR CHEST 2V PA LATERAL from 10/17/2020 CR XR CHEST 2V PA LATERAL from 03/29/2021 CR XR CHEST 2V PA LATERAL from 03/29/2021 FINDINGS: Heart size is normal. Trace pericardial effusion versus pericardial thickening seen anteriorly. No pleural effusion, pneumothorax or evidence of adenopathy. Underlying changes of centrilobular emphys brittany. Mild areas of linear scarring. Diffuse scattered calcified pulmonary nodules are seen. No kirstie picious nodules or masses. No bronchiectasis or mucus plugging. No suspicious bony lesions. Visual ized portions of the upper abdomen are unremarkable. IMPRESSION: Emphysematous changes and mild bilateral pulmonary scarring. No evidence of mass or infiltrate. RADIATION DOSE DELIVERED: 429.37mGy.cm Total DLP DATA REPOSITORY: All CT scans at this facility are submitted to the National Radiology Data Registry (NRDR) Dose Index Registry (DIR) with the [employer] (ACR). RADIATION OPTIMIZATION: All CT scans at this facility use at least one of these dose optimization te chniques: automated exposure control; mA and/or kV adjustment per patient size (includes targeted exa ms where dose is matched to clinical indication); or iterative reconstruction.
== END 2021-05-10 02:49 ==
PROVIDERS: PCP Nurse Practitioner Family; Visit Provider Nurse Practitioner Family
DX: J98.4 Other disorders of lung (principal); Z87.01 Personal history of pneumonia (recurrent)
CPT/HCPCS: 71250

== ENCOUNTER 2021-06-01 03:35 | Outpatient (CLI) | payer MEDICARE, MEDICAID, SELFPAY ==
[2021-06-01 10:25] LABS: Abs Immature Grans 0.17 10^3/uL (0.0-0.06); Absolute Basophil Count 0.03 10^3/uL (0.0-0.2); Absolute Eosinophil Count 0.07 10^3/uL (0.0-0.7); Absolute Monocyte Count 1.44 10^3/uL (0.1-0.8); Absolute Neutrophil Count 14.09 10^3/uL (1.2-6.7); Basophils % 0.2; Eosinophils % 0.4; HCT 40.2 % (40.0-50.0); HGB 13.4 g/dL (13.5-17.5); Lymphocytes % 6.7; MCH 31.8 pg (27.0-33.0); MCHC 33.3 % (32.0-36.0); MCV 95.5 fL (80-95); MPV 9.3 fL (8.0-11.0); Monocytes % 8.5; Neutrophils % 83.2; Nucleated RBC 0 %; Platelet Count 315 10^3/uL (130-400); RBC 4.21 10^6/uL (4.36-5.78); RDW 13.4 % (11.8-14.1); RDW-SD 47.7 fL; WBC 16.94 10^3/uL (4.4-10.8)
[2021-06-01 10:27] LABS: Absolute Lymphocyte Count 1.13 10^3/uL (1.2-3.4)
== END 2021-06-01 03:36 | disposition home or self-care (01) ==
LOC: LBO 03:35
PROVIDERS: PCP Nurse Practitioner Family; Visit Provider Psychiatry & Neurology Psychiatry
DX: F20.9 Schizophrenia, unspecified (principal); Z79.899 Other long term (current) drug therapy
CPT/HCPCS: 36415; 85025

== ENCOUNTER 2021-06-07 04:30 | Outpatient (CLI) | payer MEDICARE, MEDICAID, SELFPAY ==
[2021-06-07] MEDS: Inhaler, Assist Device 1 EACH MC (11:01)
[2021-06-07] MEDS: Albuterol HFA 18 GM 200 PUFF INH IH (11:01)
--- NOTE | 2021-06-07 13:02 | W.PFT ---
Date of service: 06/07/21 Time of Service: 10:04 Pulmonary Function Test Result Requesting Provider Nisha Indications: COPD, recurrent pneumonias Interpretation Spirometry: There is moderate obstruction. There is a positive bronchodilator response. Lung Volumes: There is evidence of hyperinflation and air trapping. Diffusion Capacity: The diffusion is normal. Airway Pressure: Airways resistance is normal. Impression There is moderate obstruction with hyperinflation and air trapping with a significant bronchodilator response. Clinical Correlation therefore is recommended.
== END 2021-06-07 04:31 | disposition home or self-care (01) ==
LOC: RT 04:30
PROVIDERS: PCP Nurse Practitioner Family; Visit Provider Student in an Organized Health Care Education/Training Program
DX: J44.9 Chronic obstructive pulmonary disease, unspecified (principal); Z87.01 Personal history of pneumonia (recurrent); R94.2 Abnormal results of pulmonary function studies
CPT/HCPCS: 94060; 94726; 94729

== ENCOUNTER 2021-07-03 03:58 | Outpatient (CLI) | payer MEDICARE, MEDICAID, SELFPAY ==
[2021-07-03 09:54] LABS: Abs Immature Grans 0.07 10^3/uL (0.0-0.06); Absolute Basophil Count 0.02 10^3/uL (0.0-0.2); Absolute Lymphocyte Count 1.24 10^3/uL (1.2-3.4); Absolute Monocyte Count 0.98 10^3/uL (0.1-0.8); Absolute Neutrophil Count 7.91 10^3/uL (1.2-6.7); Basophils % 0.2; HCT 39.8 % (40.0-50.0); Immature Grans % 0.7; MCH 31.5 pg (27.0-33.0); MCHC 32.7 % (32.0-36.0); MCV 96.4 fL (80-95); MPV 9.2 fL (8.0-11.0); Monocytes % 9.5; Neutrophils % 76.6; Nucleated RBC 0 %; Platelet Count 294 10^3/uL (130-400); RBC 4.13 10^6/uL (4.36-5.78); RDW-SD 46.5 fL; WBC 10.32 10^3/uL (4.4-10.8)
== END 2021-07-03 03:59 | disposition home or self-care (01) ==
LOC: LBO 03:58
PROVIDERS: PCP Nurse Practitioner Family; Visit Provider Psychiatry & Neurology Psychiatry
DX: F20.9 Schizophrenia, unspecified (principal); Z79.899 Other long term (current) drug therapy
CPT/HCPCS: 36415; 85025

== ENCOUNTER 2021-08-01 02:24 | Outpatient (CLI) | payer MEDICARE, MEDICAID, SELFPAY ==
[2021-08-01 11:09] LABS: Abs Immature Grans 0.19 10^3/uL (0.0-0.06); Absolute Neutrophil Count 20.34 10^3/uL (1.2-6.7); Basophils % 0.2; Eosinophils % 0.3; HCT 37.7 % (40.0-50.0); HGB 12.3 g/dL (13.5-17.5); Immature Grans % 0.8; Lymphocytes % 5.3; MCH 31.6 pg (27.0-33.0); MCHC 32.6 % (32.0-36.0); MCV 96.9 fL (80-95); MPV 9.7 fL (8.0-11.0); Monocytes % 9.3; Neutrophils % 84.1; Nucleated RBC 0 %; Platelet Count 291 10^3/uL (130-400); RBC 3.89 10^6/uL (4.36-5.78); RDW 13.4 % (11.8-14.1); RDW-SD 48.5 fL; WBC 24.18 10^3/uL (4.4-10.8)
[2021-08-01 11:21] LABS: Absolute Basophil Count 0.05 10^3/uL (0.0-0.2); Absolute Eosinophil Count 0.07 10^3/uL (0.0-0.7); Absolute Lymphocyte Count 1.28 10^3/uL (1.2-3.4); Absolute Monocyte Count 2.25 10^3/uL (0.1-0.8); Diff Comment Diff Reviewed; RBC Morphology Normal
== END 2021-08-01 02:25 | disposition home or self-care (01) ==
LOC: LBO 02:24
PROVIDERS: PCP Nurse Practitioner Family; Visit Provider Psychiatry & Neurology Psychiatry
DX: F20.9 Schizophrenia, unspecified (principal)
CPT/HCPCS: 36415; 85025

== ENCOUNTER 2021-08-10 02:21 | Outpatient (CLI) | payer MEDICARE, MEDICAID, SELFPAY ==
[2021-08-10 11:43] LABS: Abs Immature Grans 0.26 10^3/uL (0.0-0.06); Absolute Basophil Count 0.04 10^3/uL (0.0-0.2); Absolute Eosinophil Count 0.14 10^3/uL (0.0-0.7); Absolute Lymphocyte Count 1.61 10^3/uL (1.2-3.4); Basophils % 0.3; HCT 39.3 % (40.0-50.0); HGB 12.8 g/dL (13.5-17.5); Immature Grans % 1.9; Lymphocytes % 11.5; MCH 31.6 pg (27.0-33.0); MCHC 32.6 % (32.0-36.0); MPV 9.1 fL (8.0-11.0); Monocytes % 9.7; Neutrophils % 75.6; Nucleated RBC 0 %; Platelet Count 360 10^3/uL (130-400); RBC 4.05 10^6/uL (4.36-5.78); RDW-SD 46.5 fL; WBC 13.97 10^3/uL (4.4-10.8)
[2021-08-10 11:46] LABS: Absolute Monocyte Count 1.36 10^3/uL (0.1-0.8); Absolute Neutrophil Count 10.56 10^3/uL (1.2-6.7)
== END 2021-08-10 02:22 | disposition home or self-care (01) ==
LOC: LBO 02:21
PROVIDERS: PCP Nurse Practitioner Family; Visit Provider Nurse Practitioner Family
DX: F20.9 Schizophrenia, unspecified (principal); Z79.899 Other long term (current) drug therapy
CPT/HCPCS: 36415; 85025

== ENCOUNTER 2021-08-16 00:41 | Outpatient (CLI) | payer MEDICARE, MEDICAID, SELFPAY ==
--- NOTE | 2021-08-16 10:30 | DI.RAD_ITS ---
Exam(s) XR CHEST 2V PA LATERAL EXAM: XR CHEST 2V PA LATERAL CLINICAL HISTORY: HX RECURRENT PNEUMONIA Z87.01 LEUKOCYTOSIS D72.829 TECHNIQUE: COMPARISON: CR XR CHEST 2V PA LATERAL from 05/05/2020 CR XR CHEST 2V PA LATERAL from 05/05/2020 CR XR CHEST 2V PA LATERAL from 10/17/2020 CR XR CHEST 2V PA LATERAL from 10/17/2020 CR XR CHEST 2V PA LATERAL from 03/29/[address] CHEST WO from 05/10/2021 FINDINGS: Today's examination is compared with multiple prior chest radiographs. Note is again made of predomi nantly linear opacities in both lungs consistent with scarring or atelectasis. Probably no gross int erval change in appearance comparison with prior radiograph of March [address] of May 10. No pleural effusion seen. Cardiac size within normal limits. IMPRESSION: Probably stable bilateral pulmonary opacities, most likely scarring. Underlying neoplastic disease c annot be excluded on the basis of today's examination. RADIATION DOSE DELIVERED: Total DLP
== END 2021-08-16 01:01 ==
PROVIDERS: PCP Nurse Practitioner Family; Visit Provider Nurse Practitioner Family
DX: D72.829 Elevated white blood cell count, unspecified (principal); Z87.01 Personal history of pneumonia (recurrent); R91.8 Other nonspecific abnormal finding of lung field
CPT/HCPCS: 71046

== ENCOUNTER 2021-08-31 02:17 | Outpatient (CLI) | payer MEDICARE, MEDICAID, SELFPAY ==
[2021-08-31 13:34] LABS: Abs Immature Grans 0.07 10^3/uL (0.0-0.06); Absolute Basophil Count 0.02 10^3/uL (0.0-0.2); Absolute Lymphocyte Count 1.93 10^3/uL (1.2-3.4); Absolute Monocyte Count 1.11 10^3/uL (0.1-0.8); Basophils % 0.2; Eosinophils % 2.1; HCT 39.5 % (40.0-50.0); Immature Grans % 0.7; MCH 31.4 pg (27.0-33.0); MCHC 32.9 % (32.0-36.0); MCV 95.4 fL (80-95); MPV 9.6 fL (8.0-11.0); Monocytes % 11.5; Neutrophils % 65.5; Nucleated RBC 0 %; Platelet Count 267 10^3/uL (130-400); RBC 4.14 10^6/uL (4.36-5.78); RDW 13.2 % (11.8-14.1); RDW-SD 46.9 fL; WBC 9.63 10^3/uL (4.4-10.8)
== END 2021-08-31 02:18 | disposition home or self-care (01) ==
LOC: LBO 02:17
PROVIDERS: PCP Nurse Practitioner Family; Visit Provider Psychiatry & Neurology Psychiatry
DX: F20.9 Schizophrenia, unspecified (principal)
CPT/HCPCS: 36415; 85025

== ENCOUNTER 2021-10-02 02:36 | Outpatient (CLI) | payer MEDICARE, MEDICAID, SELFPAY ==
[2021-10-02 11:55] LABS: Abs Immature Grans 0.19 10^3/uL (0.0-0.06); Absolute Basophil Count 0.03 10^3/uL (0.0-0.2); Absolute Eosinophil Count 0.29 10^3/uL (0.0-0.7); Absolute Lymphocyte Count 2.13 10^3/uL (1.2-3.4); Absolute Monocyte Count 1.27 10^3/uL (0.1-0.8); Basophils % 0.3; Eosinophils % 2.5; HCT 40.4 % (40.0-50.0); HGB 13.2 g/dL (13.5-17.5); Immature Grans % 1.7; Lymphocytes % 18.6; MCH 32.1 pg (27.0-33.0); MCHC 32.7 % (32.0-36.0); MCV 98.3 fL (80-95); MPV 9.7 fL (8.0-11.0); Monocytes % 11.1; Neutrophils % 65.8; Nucleated RBC 0 %; Platelet Count 278 10^3/uL (130-400); RBC 4.11 10^6/uL (4.36-5.78); RDW 13.2 % (11.8-14.1); RDW-SD 47.4 fL; WBC 11.47 10^3/uL (4.4-10.8)
[2021-10-02 12:00] LABS: Absolute Neutrophil Count 7.55 10^3/uL (1.2-6.7)
== END 2021-10-02 02:37 | disposition home or self-care (01) ==
PROVIDERS: PCP Nurse Practitioner Family; Visit Provider Psychiatry & Neurology Psychiatry
DX: F20.9 Schizophrenia, unspecified (principal)
CPT/HCPCS: 36415; 85025

== ENCOUNTER 2021-10-31 02:01 | Outpatient (CLI) | payer MEDICARE, MEDICAID, SELFPAY ==
[2021-10-31 10:59] LABS: Abs Immature Grans 0.24 10^3/uL (0.0-0.06); Absolute Neutrophil Count 8.41 10^3/uL (1.2-6.7); Basophils % 0.2; Eosinophils % 2.4; HCT 41.8 % (40.0-50.0); HGB 13.2 g/dL (13.5-17.5); Lymphocytes % 17.1; MCH 30.9 pg (27.0-33.0); MCHC 31.6 % (32.0-36.0); MCV 97.9 fL (80-95); MPV 9.5 fL (8.0-11.0); Monocytes % 9.8; Neutrophils % 68.5; Nucleated RBC 0 %; Platelet Count 315 10^3/uL (130-400); RBC 4.27 10^6/uL (4.36-5.78); RDW 12.8 % (11.8-14.1); RDW-SD 45.9 fL; WBC 12.28 10^3/uL (4.4-10.8)
[2021-10-31 11:00] LABS: Absolute Basophil Count 0.02 10^3/uL (0.0-0.2); Absolute Eosinophil Count 0.29 10^3/uL (0.0-0.7)
== END 2021-10-31 02:02 | disposition home or self-care (01) ==
LOC: LBO 02:01
PROVIDERS: PCP Nurse Practitioner Family; Visit Provider Psychiatry & Neurology Psychiatry
DX: F20.89 Other schizophrenia (principal); Z79.899 Other long term (current) drug therapy
CPT/HCPCS: 36415; 85025

== ENCOUNTER 2021-11-20 02:46 | Outpatient (CLI) | payer MEDICARE, MEDICAID, SELFPAY ==
[2021-11-20 11:24] LABS: Abs Immature Grans 0.09 10^3/uL (0.0-0.06); Absolute Basophil Count 0.04 10^3/uL (0.0-0.2); Absolute Eosinophil Count 0.33 10^3/uL (0.0-0.7); Absolute Lymphocyte Count 1.67 10^3/uL (1.2-3.4); Absolute Neutrophil Count 5.75 10^3/uL (1.2-6.7); Basophils % 0.5; Eosinophils % 3.8; HCT 43.1 % (40.0-50.0); HGB 13.9 g/dL (13.5-17.5); MCH 31.5 pg (27.0-33.0); MCHC 32.3 % (32.0-36.0); MCV 97.7 fL (80-95); MPV 9.7 fL (8.0-11.0); Monocytes % 10.3; Neutrophils % 65.4; Nucleated RBC 0 %; Platelet Count 265 10^3/uL (130-400); RBC 4.41 10^6/uL (4.36-5.78); RDW 12.7 % (11.8-14.1); RDW-SD 45.9 fL; WBC 8.78 10^3/uL (4.4-10.8)
== END 2021-11-20 02:47 | disposition home or self-care (01) ==
LOC: LBO 02:46
PROVIDERS: PCP Nurse Practitioner Family; Visit Provider Psychiatry & Neurology Psychiatry
DX: F20.89 Other schizophrenia (principal); Z79.899 Other long term (current) drug therapy
CPT/HCPCS: 36415; 85025

== ENCOUNTER 2021-12-18 03:27 | Outpatient (CLI) | payer MEDICARE, MEDICAID, SELFPAY ==
[2021-12-18 10:39] LABS: Abs Immature Grans 0.06 10^3/uL (0.0-0.06); Absolute Basophil Count 0.02 10^3/uL (0.0-0.2); Absolute Eosinophil Count 0.36 10^3/uL (0.0-0.7); Absolute Lymphocyte Count 1.77 10^3/uL (1.2-3.4); Absolute Monocyte Count 1.16 10^3/uL (0.1-0.8); Absolute Neutrophil Count 5.64 10^3/uL (1.2-6.7); Basophils % 0.2; HCT 41.9 % (40.0-50.0); HGB 13.4 g/dL (13.5-17.5); Immature Grans % 0.7; Lymphocytes % 19.6; MCH 30.5 pg (27.0-33.0); MCV 95.4 fL (80-95); Monocytes % 12.9; Neutrophils % 62.6; Nucleated RBC 0 %; Platelet Count 353 10^3/uL (130-400); RBC 4.39 10^6/uL (4.36-5.78); RDW 12.8 % (11.8-14.1); RDW-SD 45.6 fL; WBC 9.01 10^3/uL (4.4-10.8)
== END 2021-12-18 03:28 | disposition home or self-care (01) ==
LOC: LBO 03:27
PROVIDERS: PCP Nurse Practitioner Family; Visit Provider Psychiatry & Neurology Psychiatry
DX: F20.9 Schizophrenia, unspecified (principal); Z79.899 Other long term (current) drug therapy
CPT/HCPCS: 36415; 85025

== ENCOUNTER 2022-01-15 02:41 | Outpatient (CLI) | payer MEDICARE, MEDICAID, SELFPAY ==
[2022-01-15 10:53] LABS: Abs Immature Grans 0.25 10^3/uL (0.0-0.06); Absolute Basophil Count 0.02 10^3/uL (0.0-0.2); Absolute Eosinophil Count 0.34 10^3/uL (0.0-0.7); Absolute Monocyte Count 0.97 10^3/uL (0.1-0.8); Basophils % 0.2; HCT 41.6 % (40.0-50.0); HGB 13.4 g/dL (13.5-17.5); Immature Grans % 2.2; Lymphocytes % 16.1; MCH 30.7 pg (27.0-33.0); MCHC 32.2 % (32.0-36.0); MCV 95.4 fL (80-95); MPV 9.7 fL (8.0-11.0); Monocytes % 8.7; Neutrophils % 69.8; Platelet Count 369 10^3/uL (130-400); RBC 4.36 10^6/uL (4.36-5.78); RDW 13.3 % (11.8-14.1); RDW-SD 46.9 fL; WBC 11.17 10^3/uL (4.4-10.8)
== END 2022-01-15 02:42 | disposition home or self-care (01) ==
LOC: LBO 02:41
PROVIDERS: PCP Nurse Practitioner Family; Visit Provider Psychiatry & Neurology Psychiatry
DX: F20.9 Schizophrenia, unspecified (principal); Z79.899 Other long term (current) drug therapy
CPT/HCPCS: 36415; 85025

== ENCOUNTER 2022-02-13 02:19 | Outpatient (CLI) | payer MEDICARE, MEDICAID, SELFPAY ==
[2022-02-13 10:18] LABS: Abs Immature Grans 0.27 10^3/uL (0.0-0.06); Absolute Basophil Count 0.04 10^3/uL (0.0-0.2); Absolute Eosinophil Count 0.25 10^3/uL (0.0-0.7); Absolute Lymphocyte Count 1.94 10^3/uL (1.2-3.4); Basophils % 0.3; HCT 40.7 % (40.0-50.0); HGB 13.2 g/dL (13.5-17.5); Immature Grans % 2.2; Lymphocytes % 15.6; MCH 30.6 pg (27.0-33.0); MCHC 32.4 % (32.0-36.0); MCV 94 fL (80-95); MPV 9.4 fL (8.0-11.0); Monocytes % 6.4; Neutrophils % 73.5; Platelet Count 360 10^3/uL (130-400); RBC 4.31 10^6/uL (4.36-5.78); RDW 13.6 % (11.8-14.1); RDW-SD 47.1 fL; WBC 12.41 10^3/uL (4.4-10.8)
[2022-02-13 10:26] LABS: Absolute Monocyte Count 0.79 10^3/uL (0.1-0.8); Absolute Neutrophil Count 9.12 10^3/uL (1.2-6.7)
== END 2022-02-13 02:20 | disposition home or self-care (01) ==
LOC: LBO 02:19
PROVIDERS: PCP Nurse Practitioner Family; Visit Provider Psychiatry & Neurology Psychiatry
DX: F20.9 Schizophrenia, unspecified (principal); Z79.899 Other long term (current) drug therapy
CPT/HCPCS: 36415; 85025

== ENCOUNTER 2022-03-14 02:22 | Outpatient (CLI) | payer MEDICARE, MEDICAID, SELFPAY ==
[2022-03-14 10:19] LABS: Abs Immature Grans 0.05 10^3/uL (0.0-0.06); Absolute Basophil Count 0.02 10^3/uL (0.0-0.2); Absolute Eosinophil Count 0.48 10^3/uL (0.0-0.7); Absolute Lymphocyte Count 2.09 10^3/uL (1.2-3.4); Absolute Monocyte Count 1.13 10^3/uL (0.1-0.8); Basophils % 0.2; Eosinophils % 5.4; HCT 40.2 % (40.0-50.0); HGB 13.6 g/dL (13.5-17.5); Immature Grans % 0.6; Lymphocytes % 23.3; MCH 31.3 pg (27.0-33.0); MCHC 33.8 % (32.0-36.0); MCV 93 fL (80-95); MPV 9.6 fL (8.0-11.0); Monocytes % 12.6; Neutrophils % 57.9; Platelet Count 222 10^3/uL (130-400); RBC 4.34 10^6/uL (4.36-5.78); RDW 13.8 % (11.8-14.1); RDW-SD 47.1 fL; WBC 8.97 10^3/uL (4.4-10.8)
== END 2022-03-14 02:23 | disposition home or self-care (01) ==
LOC: LBO 02:22
PROVIDERS: PCP Nurse Practitioner Family; Visit Provider Psychiatry & Neurology Psychiatry
DX: F20.9 Schizophrenia, unspecified (principal); Z79.899 Other long term (current) drug therapy
CPT/HCPCS: 36415; 85025

== ENCOUNTER 2022-04-09 03:28 | Outpatient (CLI) | payer MEDICARE, MEDICAID, SELFPAY ==
[2022-04-09 12:06] LABS: Abs Immature Grans 0.07 10^3/uL (0.0-0.06); Absolute Basophil Count 0.02 10^3/uL (0.0-0.2); Absolute Eosinophil Count 0.39 10^3/uL (0.0-0.7); Absolute Lymphocyte Count 2.43 10^3/uL (1.2-3.4); Absolute Monocyte Count 1.32 10^3/uL (0.1-0.8); Absolute Neutrophil Count 6.55 10^3/uL (1.2-6.7); Basophils % 0.2; Eosinophils % 3.6; HCT 39.5 % (40.0-50.0); HGB 13.1 g/dL (13.5-17.5); Immature Grans % 0.6; Lymphocytes % 22.5; MCH 30.9 pg (27.0-33.0); MCHC 33.2 % (32.0-36.0); MCV 93 fL (80-95); MPV 9.5 fL (8.0-11.0); Monocytes % 12.2; Neutrophils % 60.9; Platelet Count 272 10^3/uL (130-400); RBC 4.24 10^6/uL (4.36-5.78); RDW 13.5 % (11.8-14.1); RDW-SD 46.7 fL; WBC 10.78 10^3/uL (4.4-10.8)
== END 2022-04-09 03:29 | disposition home or self-care (01) ==
LOC: LBO 03:28
PROVIDERS: PCP Nurse Practitioner Family; Visit Provider Psychiatry & Neurology Psychiatry
DX: F20.9 Schizophrenia, unspecified (principal); Z79.899 Other long term (current) drug therapy
CPT/HCPCS: 36415; 85025

== ENCOUNTER 2022-05-03 19:26 | Outpatient (REF) | payer MEDICARE, MEDICAID, SELFPAY ==
[2022-05-03 19:52] LABS: Anion Gap 4.6 mmol/L (3-11); BUN 16 mg/dL (7-18); CO2 27.4 mmol/L (21.0-32.0); Calcium 8.6 mg/dL (8.5-10.1); Chloride 98 mmol/L (98-107); Glucose 97 mg/dL (74-106); Potassium 5.6 mmol/L (3.5-5.1); Sodium 130 mmol/L (136-145)
== END 2022-05-03 19:27 | disposition home or self-care (01) ==
LOC: NCHCN 19:26
PROVIDERS: PCP Nurse Practitioner Family; Visit Provider Nurse Practitioner Family
DX: I10 Essential (primary) hypertension (principal)
CPT/HCPCS: 80048

== ENCOUNTER 2022-05-17 03:43 | Outpatient (CLI) | payer MEDICARE, MEDICAID, SELFPAY ==
[2022-05-17 12:26] LABS: Abs Immature Grans 0.12 10^3/uL (0.0-0.06); Absolute Basophil Count 0.02 10^3/uL (0.0-0.2); Absolute Eosinophil Count 0.29 10^3/uL (0.0-0.7); Absolute Monocyte Count 1.39 10^3/uL (0.1-0.8); Basophils % 0.2; Eosinophils % 2.6; HCT 40.7 % (40.0-50.0); HGB 13.7 g/dL (13.5-17.5); Immature Grans % 1.1; MCH 31.5 pg (27.0-33.0); MCHC 33.7 % (32.0-36.0); MCV 94 fL (80-95); MPV 9.3 fL (8.0-11.0); Monocytes % 12.6; Neutrophils % 67.5; Platelet Count 286 10^3/uL (130-400); RBC 4.35 10^6/uL (4.36-5.78); RDW 13.4 % (11.8-14.1); RDW-SD 45.9 fL; WBC 11.03 10^3/uL (4.4-10.8)
[2022-05-17 12:30] LABS: Absolute Lymphocyte Count 1.76 10^3/uL (1.2-3.4); Absolute Neutrophil Count 7.45 10^3/uL (1.2-6.7)
[2022-05-17 12:57] LABS: Anion Gap 7.3 mmol/L (3-11); BUN 19 mg/dL (7-18); CO2 28.7 mmol/L (21.0-32.0); CREATININE 1.1 mg/dL (0.70-1.30); Calcium 9.1 mg/dL (8.5-10.1); Chloride 100 mmol/L (98-107); Glucose 114 mg/dL (74-106); Potassium 5.3 mmol/L (3.5-5.1); Sodium 136 mmol/L (136-145)
== END 2022-05-17 03:44 | disposition home or self-care (01) ==
LOC: LBO 03:43
PROVIDERS: PCP Nurse Practitioner Family; Visit Provider Psychiatry & Neurology Psychiatry
DX: E87.8 Other disorders of electrolyte and fluid balance, not elsewhere classified (principal); F20.9 Schizophrenia, unspecified; Z79.899 Other long term (current) drug therapy
CPT/HCPCS: 36415; 80048; 85025

== ENCOUNTER → 2022-05-21 03:02 | Outpatient (CLI) | payer MEDICARE, MEDICAID, SELFPAY ==
--- NOTE | 2022-05-21 10:48 | DI.CTLCSR_ITS ---
Exam(s) CT CHEST LUNG CANCER SCREEN EXAM: CT CHEST LUNG CANCER SCREEN CLINICAL HISTORY: Screening for lung cancer,former smoker, z87.891 TECHNIQUE: Imaging Protocol: Axial computed tomography images with coronal and sagittal reformatted images were created and reviewed COMPARISON: CT CT CHEST WO from 05/10/2021 FINDINGS: Tracheobronchial tree: Patent where visualized. Pulmonary parenchyma: There is again seen scarring in the right upper lobe, right middle lobe and lef t lingula. No new consolidating infiltrates are seen. Emphysematous changes are seen in the lungs. S everal calcified pulmonary nodules are present. Lung Nodules: There is a 0.6 cm noncalcified pulmonary nodule in the right upper lobe. There are few other smaller noncalcified pulmonary nodules. The largest is less than 3 mm. Mediastinum and Ying: No dominant adenopathy or fluid collection. The esophagus is unremarkable. Thyroid gland: Unremarkable. Lymph nodes: Unremarkable. Pleura: No effusion or pneumothorax. Heart: The heart is not dilated. Coronary artery calcifications are present. No pericardial effusion. Aorta: Thoracic aorta non-dilated.Atherosclerosis is present. Upper abdomen: Calcified granuloma are seen in the spleen. There is unchanged nodularity of both adr enal glands. Soft Tissues: There is bilateral gynecomastia, right greater than left. Bones: Within normal limits. IMPRESSION: Noncalcified pulmonary nodules. The largest measures 0.6 cm and is located in the right upper lobe. Lung RADS Cat 3 - Probably Benign: Probably benign finding(s) - short term follow-up suggested; inclu de nodules with a low likelihood of becoming a clinically active cancer. Lung-RADS 1.0 CATEGORIES: Category 0 - Prior chest CT exam(s) being located for comparison. Category 1 - Annual screening in 12 months. No nodules or definitely benign nodules. Category 2 - Annual screening in 12 months. Benign appearance. Nodules with low likelihood of becomin g active cancer. Category 3 - 6-month follow-up. Probably benign. Short-term follow-up suggested. Nodules with low lik elihood of becoming active cancer. Category 4A - 3-month follow-up and CT/PET if >8 mm in size. Suspicious finding. Findings which requi re additional testing. Category 4B - Findings which require additional testing and tissue sampling. Suspicious finding. Category 4X - Category 3 or 4 nodules with additional features or imaging findings that increases the suspicion of malignancy. Modifier S- Potentially clinically significant finding. (Non lung cancer) RADIATION DOSE DELIVERED: 77.02mGy.cm Total DLP 1.84mGy CTDIvol 77.02mGy.cm Total DLP 1.84mGy CTDIvol DATA REPOSITORY: All CT scans at this facility are submitted to the National Radiology Data Registry (NRDR) Dose Index Registry (DIR) with the [employer] (ACR). RADIATION OPTIMIZATION: All CT scans at this facility use at least one of these dose optimization te chniques: automated exposure control; mA and/or kV adjustment per patient size (includes targeted exa ms where dose is matched to clinical indication); or iterative reconstruction.
== END ==
PROVIDERS: PCP Nurse Practitioner Family; Visit Provider Student in an Organized Health Care Education/Training Program
DX: Z87.891 Personal history of nicotine dependence (principal); R91.8 Other nonspecific abnormal finding of lung field
CPT/HCPCS: 71271

== ENCOUNTER 2022-06-05 02:09 | Outpatient (CLI) | payer MEDICARE, MEDICAID, SELFPAY ==
[2022-06-05 11:07] LABS: Abs Immature Grans 0.06 10^3/uL (0.0-0.06); Absolute Basophil Count 0.02 10^3/uL (0.0-0.2); Absolute Eosinophil Count 0.38 10^3/uL (0.0-0.7); Absolute Lymphocyte Count 1.87 10^3/uL (1.2-3.4); Absolute Monocyte Count 1.31 10^3/uL (0.1-0.8); Absolute Neutrophil Count 7.24 10^3/uL (1.2-6.7); Basophils % 0.2; Eosinophils % 3.5; HCT 41.7 % (40.0-50.0); HGB 13.7 g/dL (13.5-17.5); Immature Grans % 0.6; Lymphocytes % 17.2; MCH 31.6 pg (27.0-33.0); MCHC 32.9 % (32.0-36.0); MCV 96 fL (80-95); MPV 9.7 fL (8.0-11.0); Neutrophils % 66.5; Platelet Count 253 10^3/uL (130-400); RBC 4.34 10^6/uL (4.36-5.78); RDW 13.5 % (11.8-14.1); RDW-SD 48.1 fL; WBC 10.88 10^3/uL (4.4-10.8)
== END 2022-06-05 02:10 | disposition home or self-care (01) ==
LOC: LBO 02:09
PROVIDERS: PCP Nurse Practitioner Family; Visit Provider Psychiatry & Neurology Psychiatry
DX: Z79.899 Other long term (current) drug therapy (principal); F20.9 Schizophrenia, unspecified
CPT/HCPCS: 36415; 85025

== ENCOUNTER 2022-07-03 01:54 | Outpatient (CLI) | payer MEDICARE, MEDICAID, SELFPAY ==
[2022-07-03 10:58] LABS: Abs Immature Grans 0.31 10^3/uL (0.0-0.06); HCT 39.4 % (40.0-50.0); HGB 13.4 g/dL (13.5-17.5); MCH 32.3 pg (27.0-33.0); MCV 95 fL (80-95); MPV 9.6 fL (8.0-11.0); Platelet Count 291 10^3/uL (130-400); RBC 4.15 10^6/uL (4.36-5.78); RDW-SD 45.4 fL
[2022-07-03 11:38] LABS: WBC 32.85 10^3/uL (4.4-10.8)
[2022-07-03 11:39] LABS: Absolute Lymphocyte Count 0.66 10^3/uL (1.2-3.4); Absolute Monocyte Count 1.64 10^3/uL (0.1-0.8); Absolute Neutrophil Count 30.55 10^3/uL (1.2-6.7); Bands % 0; Diff Comment Manual Differential; RBC Morphology Normal
== END 2022-07-03 01:55 | disposition home or self-care (01) ==
LOC: LBO 01:54
PROVIDERS: PCP Nurse Practitioner Family; Visit Provider Psychiatry & Neurology Psychiatry
DX: F20.89 Other schizophrenia (principal); Z79.899 Other long term (current) drug therapy
CPT/HCPCS: 36415; 85025

== ENCOUNTER → 2022-07-06 00:28 | Outpatient (CLI) | payer MEDICARE, MEDICAID, SELFPAY ==
--- NOTE | 2022-07-06 | DI.RAD_ITS ---
Exam(s) XR CHEST 2V PA LATERAL EXAM: XR CHEST 2V PA LATERAL CLINICAL HISTORY: H/O RECURRENT PNEUMONIA, Z87.01,LEUKOCYTOSIS, D72.829. TECHNIQUE: 2D digital imaging was performed. COMPARISON: CR XR CHEST 2V PA LATERAL from 10/17/2020 CR XR CHEST 2V PA LATERAL from 08/16/2021 FINDINGS: 2 views: Heart size is normal. The mediastinum is not widened. Scarring in both lung bases again noted. Left upper lobe calcified granuloma again noted. Mild incr eased markings in the lateral right lung. No pleural effusions. IMPRESSION: Chronic bilateral scarring but there also appears to be mild increased markings in the lateral right lung, possible early infiltrate. No pleural effusions. DATA REPOSITORY: RADIATION DOSE DELIVERED:
== END ==
PROVIDERS: PCP Nurse Practitioner Family; Visit Provider Nurse Practitioner Family
DX: R91.8 Other nonspecific abnormal finding of lung field (principal)
CPT/HCPCS: 71046

== ENCOUNTER 2022-07-12 10:17 | Outpatient (CLI) | payer MEDICARE, MEDICAID, SELFPAY ==
[2022-07-12 09:44] LABS: Abs Immature Grans 0.24 10^3/uL (0.0-0.06); Absolute Basophil Count 0.03 10^3/uL (0.0-0.2); Absolute Monocyte Count 1.58 10^3/uL (0.1-0.8); Basophils % 0.2; Eosinophils % 2.4; HCT 39.9 % (40.0-50.0); Immature Grans % 1.4; Lymphocytes % 10.9; MCH 31.6 pg (27.0-33.0); MCHC 32.6 % (32.0-36.0); MCV 97 fL (80-95); MPV 9.2 fL (8.0-11.0); Monocytes % 9.1; Platelet Count 286 10^3/uL (130-400); RBC 4.11 10^6/uL (4.36-5.78); RDW 12.8 % (11.8-14.1); RDW-SD 45.1 fL
[2022-07-12 09:47] LABS: Absolute Eosinophil Count 0.42 10^3/uL (0.0-0.7); Absolute Neutrophil Count 13.22 10^3/uL (1.2-6.7)
[2022-07-12 09:57] LABS: Diff Comment Diff Reviewed; RBC Morphology Normal
== END 2022-07-12 10:18 | disposition home or self-care (01) ==
LOC: LBO 10:18
PROVIDERS: PCP Nurse Practitioner Family; Visit Provider Psychiatry & Neurology Psychiatry
DX: Z79.899 Other long term (current) drug therapy (principal)
CPT/HCPCS: 36415; 85025

== ENCOUNTER 2022-07-16 15:13 | Outpatient (REF) | payer MEDICARE, MEDICAID, SELFPAY ==
[2022-07-16 19:31] LABS: Abs Immature Grans 0.11 10^3/uL (0.0-0.06); Absolute Basophil Count 0.03 10^3/uL (0.0-0.2); Absolute Eosinophil Count 0.35 10^3/uL (0.0-0.7); Absolute Lymphocyte Count 2.11 10^3/uL (1.2-3.4); Absolute Monocyte Count 1.23 10^3/uL (0.1-0.8); Basophils % 0.2; Eosinophils % 2.4; HCT 38.9 % (40.0-50.0); HGB 13.1 g/dL (13.5-17.5); Immature Grans % 0.8; Lymphocytes % 14.4; MCH 32.3 pg (27.0-33.0); MCHC 33.7 % (32.0-36.0); MCV 96 fL (80-95); MPV 10.8 fL (8.0-11.0); Monocytes % 8.4; Neutrophils % 73.8; Platelet Count 279 10^3/uL (130-400); RBC 4.05 10^6/uL (4.36-5.78); RDW 12.6 % (11.8-14.1); RDW-SD 44.7 fL; WBC 14.63 10^3/uL (4.4-10.8)
== END 2022-07-16 15:14 | disposition home or self-care (01) ==
LOC: NCHCN 15:13
PROVIDERS: PCP Nurse Practitioner Family; Visit Provider Nurse Practitioner Family
DX: D72.829 Elevated white blood cell count, unspecified (principal)
CPT/HCPCS: 85025

== ENCOUNTER 2022-07-31 03:12 | Outpatient (CLI) | payer MEDICARE, MEDICAID, SELFPAY ==
[2022-07-31 11:01] LABS: Abs Immature Grans 0.18 10^3/uL (0.0-0.06); Absolute Basophil Count 0.02 10^3/uL (0.0-0.2); Absolute Eosinophil Count 0.32 10^3/uL (0.0-0.7); Absolute Monocyte Count 1.46 10^3/uL (0.1-0.8); Basophils % 0.1; HCT 39.3 % (40.0-50.0); HGB 13.2 g/dL (13.5-17.5); Immature Grans % 1.1; Lymphocytes % 12.7; MCH 32.2 pg (27.0-33.0); MCHC 33.6 % (32.0-36.0); MCV 96 fL (80-95); MPV 9.9 fL (8.0-11.0); Monocytes % 9.3; Neutrophils % 74.8; Platelet Count 308 10^3/uL (130-400); RDW 12.7 % (11.8-14.1); RDW-SD 44.9 fL; WBC 15.75 10^3/uL (4.4-10.8)
[2022-07-31 11:03] LABS: Absolute Neutrophil Count 11.78 10^3/uL (1.2-6.7)
== END 2022-07-31 03:13 | disposition home or self-care (01) ==
LOC: LBO 03:12
PROVIDERS: PCP Nurse Practitioner Family; Visit Provider Psychiatry & Neurology Psychiatry
DX: F20.9 Schizophrenia, unspecified (principal); Z79.899 Other long term (current) drug therapy
CPT/HCPCS: 36415; 85025

== ENCOUNTER 2022-08-27 03:11 | Outpatient (CLI) | payer MEDICARE, MEDICAID, SELFPAY ==
[2022-08-27 11:26] LABS: Abs Immature Grans 0.09 10^3/uL (0.0-0.06); HCT 36.6 % (40.0-50.0); HGB 12.3 g/dL (13.5-17.5); MCH 31.8 pg (27.0-33.0); MCHC 33.6 % (32.0-36.0); MCV 95 fL (80-95); MPV 9.6 fL (8.0-11.0); Platelet Count 278 10^3/uL (130-400); RBC 3.87 10^6/uL (4.36-5.78); RDW 12.8 % (11.8-14.1); WBC 15.95 10^3/uL (4.4-10.8)
[2022-08-27 11:53] LABS: Absolute Lymphocyte Count 1.91 10^3/uL (1.2-3.4); Absolute Neutrophil Count 13.24 10^3/uL (1.2-6.7); Atypical Lymphocytes % 3; Bands % 0
[2022-08-27 11:54] LABS: Diff Comment Manual Differential; RBC Morphology Normal
== END 2022-08-27 03:12 | disposition home or self-care (01) ==
LOC: LBO 03:11
PROVIDERS: PCP Nurse Practitioner Family; Visit Provider Psychiatry & Neurology Psychiatry
DX: F20.89 Other schizophrenia (principal); Z79.899 Other long term (current) drug therapy
CPT/HCPCS: 36415; 85025

== ENCOUNTER 2022-09-25 03:49 | Outpatient (CLI) | payer MEDICARE, MEDICAID, SELFPAY ==
[2022-09-25 12:36] LABS: Abs Immature Grans 0.07 10^3/uL (0.0-0.06); Absolute Basophil Count 0.03 10^3/uL (0.0-0.2); Absolute Eosinophil Count 0.43 10^3/uL (0.0-0.7); Absolute Lymphocyte Count 2.11 10^3/uL (1.2-3.4); Absolute Monocyte Count 1.45 10^3/uL (0.1-0.8); Basophils % 0.2; Eosinophils % 3.4; HCT 40.2 % (40.0-50.0); Immature Grans % 0.6; Lymphocytes % 16.7; MCH 31.5 pg (27.0-33.0); MCHC 32.3 % (32.0-36.0); MCV 97 fL (80-95); MPV 9.4 fL (8.0-11.0); Monocytes % 11.5; Neutrophils % 67.6; Platelet Count 228 10^3/uL (130-400); RBC 4.13 10^6/uL (4.36-5.78); RDW 12.9 % (11.8-14.1); RDW-SD 46.2 fL; WBC 12.64 10^3/uL (4.4-10.8)
[2022-09-25 12:38] LABS: Absolute Neutrophil Count 8.54 10^3/uL (1.2-6.7)
== END 2022-09-25 03:50 | disposition home or self-care (01) ==
LOC: LBO 03:49
PROVIDERS: PCP Nurse Practitioner Family; Visit Provider Psychiatry & Neurology Psychiatry
DX: F20.9 Schizophrenia, unspecified (principal); Z79.899 Other long term (current) drug therapy
CPT/HCPCS: 36415; 85025

== ENCOUNTER 2022-10-04 14:46 | Outpatient (CLI) | payer MEDICARE, MEDICAID, SELFPAY ==
--- NOTE | 2022-10-04 | DI.RAD_ITS ---
Exam(s) XR CHEST 2V PA LATERAL EXAM: XR CHEST 2V PA LATERAL CLINICAL HISTORY: COUGH, R05.8; INFLUENZA A, J09.X2. TECHNIQUE: 2D digital imaging was performed. COMPARISON: CR XR CHEST 2V PA LATERAL from 10/17/2020 CR XR CHEST 2V PA LATERAL from 03/29/2021 CR XR CHEST 2V PA LATERAL from 08/16/2021 CR XR CHEST 2V PA LATERAL from 07/06/2022 FINDINGS: 2 views: Heart size is normal. The mediastinum is not widened. Bilateral hyperinflation again noted. Slightly increased markings in the lower half of both lung fie lds noted, slightly more so than 07/06/2022. There also appears to be a possible nodular infiltrate in the left lung adjacent to the heart border. This would be in the lingular segment. No pleural ef fusions. No pulmonary edema. No pneumothorax. No fractures. IMPRESSION: Bilateral hyperinflation. Slightly increasing markings both lower lung hernandez and possible nodular i nfiltrate in the lingular segment of the left lung. Follow-up to radiographic resolution recommended . If clinically indicated further study with CT scan can be performed for added sensitivity and spec ificity. DATA REPOSITORY: RADIATION DOSE DELIVERED:
== END 2022-10-04 15:06 ==
PROVIDERS: PCP Nurse Practitioner Family; Visit Provider Nurse Practitioner Family
DX: R05.8 Other specified cough (principal); J09.X2 Influenza due to identified novel influenza A virus with other respiratory manifestations
CPT/HCPCS: 71046

== ENCOUNTER 2022-10-04 16:38 | Outpatient (REF) | payer MEDICARE, MEDICAID, SELFPAY ==
[2022-10-04 18:47] LABS: Abs Immature Grans 0.13 10^3/uL (0.0-0.06); Absolute Basophil Count 0.04 10^3/uL (0.0-0.2); Absolute Eosinophil Count 0.25 10^3/uL (0.0-0.7); Absolute Lymphocyte Count 1.28 10^3/uL (1.2-3.4); Absolute Monocyte Count 1.55 10^3/uL (0.1-0.8); Basophils % 0.3; Eosinophils % 1.7; HCT 38.3 % (40.0-50.0); HGB 12.6 g/dL (13.5-17.5); Immature Grans % 0.9; Lymphocytes % 8.6; MCH 31.7 pg (27.0-33.0); MCHC 32.9 % (32.0-36.0); MCV 97 fL (80-95); MPV 10.8 fL (8.0-11.0); Monocytes % 10.4; Neutrophils % 78.1; Platelet Count 284 10^3/uL (130-400); RBC 3.97 10^6/uL (4.36-5.78); RDW 12.8 % (11.8-14.1); RDW-SD 46.1 fL; WBC 14.94 10^3/uL (4.4-10.8)
[2022-10-04 18:54] LABS: Absolute Neutrophil Count 11.67 10^3/uL (1.2-6.7)
[2022-10-04 19:02] LABS: Diff Comment Agrees w/ Instrument; RBC Morphology Normal
== END 2022-10-04 16:39 | disposition home or self-care (01) ==
LOC: NCHCN 16:38
PROVIDERS: PCP Nurse Practitioner Family; Visit Provider Nurse Practitioner Family
DX: R05.8 Other specified cough (principal); J09.X2 Influenza due to identified novel influenza A virus with other respiratory manifestations
CPT/HCPCS: 85025

== ENCOUNTER 2022-10-23 02:21 | Outpatient (CLI) | payer MEDICARE, MEDICAID, SELFPAY ==
--- NOTE | 2022-10-23 14:49 | DI.CT_ITS ---
Exam(s) CT CHEST WO EXAM: CT CHEST WO CLINICAL HISTORY: F/U RUL 6mm nodule ON LDCT,R91.1. TECHNIQUE: Multi planar reconstructions were performed. CONTRAST MATERIAL: None COMPARISON: CT CT CHEST LUNG CANCER SCREEN from 05/21/2022 FINDINGS: CHEST: LUNGS: There is an unchanged 5 millimeter noncalcified nodule in the posterior segment of the right u pper lobe. More anteriorly in the right upper lobe there is an unchanged ten by 6 millimeter nodule and slightly anterior to this is a 5 millimeter nodule, both unchanged. There is mild infiltrate in the medial segment of the right middle lobe adjacent to the right heart border, unchanged. Mild incr eased markings in the right lower lobe are unchanged. There is no pleural effusion. In the opposite-left lung there is a small 3 millimeter calcified granuloma in the anterior segment l eft upper lobe. Another similar nodule seen just below this level, unchanged. Mild infiltrate is se en in the lingular segment the adjacent to the heart border, unchanged. No new left lung findings. No pleural effusion on either side. No new findings in the trachea and mainstem bronchi. MEDIASTINUM: No obvious hilar adenopathy. Slightly enlarged subcarinal lymph nodes are again noted. There is no adenopathy in the anterior mediastinal fat. No axillary adenopathy. Gynecomastia again noted, right more so than left, unchanged. Visualized thyroid unremarkable.No obvious axillary shantanu opathy CARDIAC: Heart size is normal. There is a small pericardial effusion again noted. Maximum thickness is 6 millimeters, unchanged.Caliber of the thoracic aorta is within normal limits. VISUALIZED UPPER ABDOMEN: Thickened bilateral adrenal glands again noted. OSSEOUS: No significant osseous lesions.No fractures.. IMPRESSION: 1. Compared to prior CT scan of 05/21/2022 the multiple sub cm nodules in the right lung remains stab le as do the benign calcified granulomas in the left lung. There are no new pulmonary nodules nor pl eural effusions. Stable infiltrates adjacent to the heart border in lingular segment of the left solis g and right middle lobe are unchanged. 2. Small pericardial effusion with maximum thickness 5-6 millimeters is unchanged. 3. Other findings as above. RADIATION DOSE DELIVERED: 474.95mGy.cm Total DLP DATA REPOSITORY: All CT scans at this facility are submitted to the National Radiology Data Registry (NRDR) Dose Index Registry (DIR) with the [employer] (ACR). RADIATION OPTIMIZATION: All CT scans at this facility use at least one of these dose optimization te chniques: automated exposure control; mA and/or kV adjustment per patient size (includes targeted exa ms where dose is matched to clinical indication); or iterative reconstruction.
== END 2022-10-23 02:41 ==
LOC: DI 02:21
PROVIDERS: PCP Nurse Practitioner Family; Visit Provider Student in an Organized Health Care Education/Training Program
DX: R91.1 Solitary pulmonary nodule (principal); R91.8 Other nonspecific abnormal finding of lung field; J98.4 Other disorders of lung; R59.0 Localized enlarged lymph nodes; I31.39 Other pericardial effusion (noninflammatory)
CPT/HCPCS: 71250

== ENCOUNTER 2022-10-23 03:13 | Outpatient (CLI) | payer MEDICARE, MEDICAID, SELFPAY ==
[2022-10-23 09:48] LABS: Abs Immature Grans 0.07 10^3/uL (0.0-0.06); Absolute Basophil Count 0.02 10^3/uL (0.0-0.2); Absolute Eosinophil Count 0.23 10^3/uL (0.0-0.7); Absolute Lymphocyte Count 1.53 10^3/uL (1.2-3.4); Absolute Monocyte Count 1.14 10^3/uL (0.1-0.8); Absolute Neutrophil Count 6.07 10^3/uL (1.2-6.7); Basophils % 0.2; Eosinophils % 2.5; HCT 40.8 % (40.0-50.0); HGB 13.1 g/dL (13.5-17.5); Immature Grans % 0.8; Lymphocytes % 16.9; MCH 30.8 pg (27.0-33.0); MCHC 32.1 % (32.0-36.0); MCV 96 fL (80-95); MPV 10.2 fL (8.0-11.0); Monocytes % 12.6; Platelet Count 276 10^3/uL (130-400); RBC 4.25 10^6/uL (4.36-5.78); RDW 13.2 % (11.8-14.1); RDW-SD 47.2 fL; WBC 9.06 10^3/uL (4.4-10.8)
[2022-10-23 19:09] LABS: Diff Comment Diff Reviewed
[2022-10-23 19:10] LABS: RBC Morphology Normal
== END 2022-10-23 03:14 | disposition home or self-care (01) ==
LOC: LBO 03:13
PROVIDERS: PCP Nurse Practitioner Family; Visit Provider Psychiatry & Neurology Psychiatry
DX: F20.89 Other schizophrenia (principal); Z79.899 Other long term (current) drug therapy
CPT/HCPCS: 36415; 71250; 85025

== ENCOUNTER 2022-11-01 15:59 | Outpatient (REF) | payer MEDICARE, MEDICAID, SELFPAY ==
[2022-11-01 18:55] LABS: Anion Gap 8.4 mmol/L (3-11); BUN 18 mg/dL (7-18); CO2 26.6 mmol/L (21.0-32.0); Calcium 9.5 mg/dL (8.5-10.1); Chloride 102 mmol/L (98-107); Estimated GFR 81.47 (mL/min/1.73m2); Glucose 153 mg/dL (74-106); Potassium 4.9 mmol/L (3.5-5.1); Sodium 137 mmol/L (136-145)
[2022-11-01 19:13] LABS: Hemoglobin A1C 6.3 % (<5.7)
== END 2022-11-01 16:00 | disposition home or self-care (01) ==
LOC: NCHCN 15:59
PROVIDERS: PCP Nurse Practitioner Family; Visit Provider Nurse Practitioner Family
DX: E11.9 Type 2 diabetes mellitus without complications (principal)
CPT/HCPCS: 80048; 83036

== ENCOUNTER 2022-11-13 01:57 | Outpatient (CLI) | payer MEDICARE, MEDICAID, SELFPAY ==
[2022-11-13 09:15] LABS: Abs Immature Grans 0.05 10^3/uL (0.0-0.06); Absolute Basophil Count 0.02 10^3/uL (0.0-0.2); Absolute Eosinophil Count 0.33 10^3/uL (0.0-0.7); Absolute Lymphocyte Count 1.77 10^3/uL (1.2-3.4); Absolute Monocyte Count 0.95 10^3/uL (0.1-0.8); Absolute Neutrophil Count 6.38 10^3/uL (1.2-6.7); Basophils % 0.2; Eosinophils % 3.5; HCT 40.6 % (40.0-50.0); HGB 13.1 g/dL (13.5-17.5); Immature Grans % 0.5; Lymphocytes % 18.6; MCH 31.1 pg (27.0-33.0); MCHC 32.3 % (32.0-36.0); MCV 96 fL (80-95); Neutrophils % 67.2; Platelet Count 272 10^3/uL (130-400); RBC 4.21 10^6/uL (4.36-5.78); RDW 13.6 % (11.8-14.1); RDW-SD 48.6 fL
== END 2022-11-13 01:58 | disposition home or self-care (01) ==
LOC: LBO 01:57
PROVIDERS: PCP Nurse Practitioner Family; Visit Provider Psychiatry & Neurology Psychiatry
DX: F20.89 Other schizophrenia (principal); Z79.899 Other long term (current) drug therapy
CPT/HCPCS: 36415; 85025

== ENCOUNTER 2022-12-13 02:43 | Outpatient (CLI) | payer MEDICARE, MEDICAID, SELFPAY ==
[2022-12-13 10:29] LABS: Abs Immature Grans 0.16 10^3/uL (0.0-0.06); Absolute Basophil Count 0.03 10^3/uL (0.0-0.2); Absolute Eosinophil Count 0.31 10^3/uL (0.0-0.7); Absolute Lymphocyte Count 1.88 10^3/uL (1.2-3.4); Absolute Monocyte Count 0.96 10^3/uL (0.1-0.8); Basophils % 0.3; HCT 40.7 % (40.0-50.0); HGB 13.6 g/dL (13.5-17.5); Immature Grans % 1.6; Lymphocytes % 18.4; MCH 31.9 pg (27.0-33.0); MCHC 33.4 % (32.0-36.0); MCV 95 fL (80-95); MPV 10.1 fL (8.0-11.0); Monocytes % 9.4; Neutrophils % 67.3; Platelet Count 311 10^3/uL (130-400); RBC 4.27 10^6/uL (4.36-5.78); RDW 13.2 % (11.8-14.1); RDW-SD 46.5 fL; WBC 10.24 10^3/uL (4.4-10.8)
== END 2022-12-13 02:44 | disposition home or self-care (01) ==
LOC: LBO 02:43
PROVIDERS: PCP Nurse Practitioner Family; Visit Provider Psychiatry & Neurology Psychiatry
DX: F20.89 Other schizophrenia (principal); Z79.899 Other long term (current) drug therapy
CPT/HCPCS: 36415; 85025

== ENCOUNTER 2023-01-08 01:49 | Outpatient (CLI) | payer MEDICARE, MEDICAID, SELFPAY ==
[2023-01-08 09:08] LABS: Abs Immature Grans 0.08 10^3/uL (0.0-0.06); Absolute Basophil Count 0.01 10^3/uL (0.0-0.2); Absolute Eosinophil Count 0.52 10^3/uL (0.0-0.7); Absolute Lymphocyte Count 2.06 10^3/uL (1.2-3.4); Absolute Monocyte Count 1.17 10^3/uL (0.1-0.8); Absolute Neutrophil Count 6.72 10^3/uL (1.2-6.7); Basophils % 0.1; Eosinophils % 4.9; HCT 40.5 % (40.0-50.0); HGB 13.5 g/dL (13.5-17.5); Immature Grans % 0.8; Lymphocytes % 19.5; MCH 31.2 pg (27.0-33.0); MCHC 33.3 % (32.0-36.0); MCV 94 fL (80-95); MPV 8.7 fL (8.0-11.0); Monocytes % 11.1; Neutrophils % 63.6; Platelet Count 328 10^3/uL (130-400); RBC 4.33 10^6/uL (4.36-5.78); RDW 13.1 % (11.8-14.1); RDW-SD 45.1 fL; WBC 10.56 10^3/uL (4.4-10.8)
== END 2023-01-08 01:50 | disposition home or self-care (01) ==
LOC: LBO 01:49
PROVIDERS: PCP Nurse Practitioner Family; Visit Provider Psychiatry & Neurology Psychiatry
DX: Z79.899 Other long term (current) drug therapy (principal); F20.9 Schizophrenia, unspecified
CPT/HCPCS: 36415; 85025

== ENCOUNTER 2023-02-04 15:16 | Outpatient (CLI) | payer MEDICARE, MEDICAID, SELFPAY ==
[2023-02-04 10:01] LABS: Abs Immature Grans 0.15 10^3/uL (0.0-0.06); Absolute Basophil Count 0.02 10^3/uL (0.0-0.2); Absolute Eosinophil Count 0.46 10^3/uL (0.0-0.7); Absolute Lymphocyte Count 2.08 10^3/uL (1.2-3.4); Absolute Monocyte Count 0.96 10^3/uL (0.1-0.8); Basophils % 0.2; Eosinophils % 4.7; HCT 39.1 % (40.0-50.0); Immature Grans % 1.5; Lymphocytes % 21.3; MCH 31.6 pg (27.0-33.0); MCHC 33.2 % (32.0-36.0); MCV 95 fL (80-95); MPV 9.5 fL (8.0-11.0); Monocytes % 9.8; Neutrophils % 62.5; Platelet Count 298 10^3/uL (130-400); RBC 4.12 10^6/uL (4.36-5.78); RDW 13.2 % (11.8-14.1); WBC 9.77 10^3/uL (4.4-10.8)
== END 2023-02-04 15:17 | disposition home or self-care (01) ==
LOC: LBO 15:16
PROVIDERS: PCP Nurse Practitioner Family; Visit Provider Psychiatry & Neurology Psychiatry
DX: F20.89 Other schizophrenia (principal); Z79.899 Other long term (current) drug therapy
CPT/HCPCS: 36415; 85025

== ENCOUNTER 2023-03-05 03:15 | Outpatient (CLI) | payer MEDICARE, MEDICAID, SELFPAY ==
[2023-03-05 10:08] LABS: Abs Immature Grans 0.09 10^3/uL (0.0-0.06); Absolute Basophil Count 0.02 10^3/uL (0.0-0.2); Absolute Eosinophil Count 0.39 10^3/uL (0.0-0.7); Absolute Lymphocyte Count 1.73 10^3/uL (1.2-3.4); Absolute Monocyte Count 1.31 10^3/uL (0.1-0.8); Absolute Neutrophil Count 6.84 10^3/uL (1.2-6.7); Basophils % 0.2; Eosinophils % 3.8; HCT 40.3 % (40.0-50.0); HGB 13.5 g/dL (13.5-17.5); Immature Grans % 0.9; Lymphocytes % 16.7; MCH 31.3 pg (27.0-33.0); MCHC 33.5 % (32.0-36.0); MCV 94 fL (80-95); MPV 9.4 fL (8.0-11.0); Monocytes % 12.6; Neutrophils % 65.8; Platelet Count 336 10^3/uL (130-400); RBC 4.31 10^6/uL (4.36-5.78); RDW 12.6 % (11.8-14.1); RDW-SD 43.7 fL; WBC 10.38 10^3/uL (4.4-10.8)
== END 2023-03-05 03:16 | disposition home or self-care (01) ==
LOC: LBO 03:15
PROVIDERS: PCP Nurse Practitioner Family; Visit Provider Counselor Addiction (Substance Use Disorder)
DX: F20.9 Schizophrenia, unspecified (principal); Z79.899 Other long term (current) drug therapy
CPT/HCPCS: 36415; 85025

== ENCOUNTER 2023-04-03 02:42 | Outpatient (CLI) | payer MEDICARE, MEDICAID, SELFPAY ==
[2023-04-03 11:03] LABS: Abs Immature Grans 0.28 10^3/uL (0.0-0.06); HCT 36.7 % (40.0-50.0); HGB 12.3 g/dL (13.5-17.5); MCH 31.9 pg (27.0-33.0); MCHC 33.5 % (32.0-36.0); MCV 95 fL (80-95); Platelet Count 304 10^3/uL (130-400); RBC 3.86 10^6/uL (4.36-5.78); RDW 13.9 % (11.8-14.1); RDW-SD 48.6 fL; WBC 19.17 10^3/uL (4.4-10.8)
[2023-04-03 12:00] LABS: Absolute Lymphocyte Count 1.73 10^3/uL (1.2-3.4); Absolute Neutrophil Count 15.72 10^3/uL (1.2-6.7)
[2023-04-03 12:01] LABS: Absolute Eosinophil Count 0.38 10^3/uL (0.0-0.7); Absolute Monocyte Count 0.96 10^3/uL (0.1-0.8); Metamyelocytes % 1; Myelocytes % 1
[2023-04-03 12:02] LABS: Diff Comment Manual Differential; RBC Morphology Normal
== END 2023-04-03 02:43 | disposition home or self-care (01) ==
PROVIDERS: PCP Nurse Practitioner Family; Visit Provider Counselor Addiction (Substance Use Disorder)
DX: F20.9 Schizophrenia, unspecified (principal); Z79.899 Other long term (current) drug therapy
CPT/HCPCS: 36415; 85025

== ENCOUNTER 2023-05-02 15:23 | Outpatient (CLI) | payer MEDICARE, MEDICAID, SELFPAY ==
[2023-05-02 10:47] LABS: Abs Immature Grans 0.19 10^3/uL (0.0-0.06); Absolute Basophil Count 0.04 10^3/uL (0.0-0.2); Absolute Eosinophil Count 0.34 10^3/uL (0.0-0.7); Absolute Lymphocyte Count 1.69 10^3/uL (1.2-3.4); Absolute Monocyte Count 1.53 10^3/uL (0.1-0.8); Basophils % 0.3; Eosinophils % 2.6; HCT 41.4 % (40.0-50.0); HGB 13.4 g/dL (13.5-17.5); Immature Grans % 1.4; Lymphocytes % 12.8; MCH 31.4 pg (27.0-33.0); MCHC 32.4 % (32.0-36.0); MCV 97 fL (80-95); MPV 9.8 fL (8.0-11.0); Monocytes % 11.6; Neutrophils % 71.3; Platelet Count 287 10^3/uL (130-400); RBC 4.27 10^6/uL (4.36-5.78); RDW 13.2 % (11.8-14.1); RDW-SD 47.1 fL; WBC 13.17 10^3/uL (4.4-10.8)
[2023-05-02 10:49] LABS: Absolute Neutrophil Count 9.39 10^3/uL (1.2-6.7)
[2023-05-02 11:06] LABS: Diff Comment Diff Reviewed
[2023-05-02 13:18] LABS: Hemoglobin A1C 6.1 % (<5.7)
== END 2023-05-02 15:24 | disposition home or self-care (01) ==
LOC: LBO 15:25
PROVIDERS: PCP Nurse Practitioner Family; Visit Provider Counselor Addiction (Substance Use Disorder)
DX: Z79.899 Other long term (current) drug therapy (principal); E11.9 Type 2 diabetes mellitus without complications
CPT/HCPCS: 36415; 83036; 85025

== ENCOUNTER 2023-05-02 17:44 | Outpatient (REF) | payer MEDICARE, MEDICAID, SELFPAY ==
[2023-05-02 16:26] LABS: COMMENT (LAB VIEW ONLY) 139.24 mg/dL; PROTEIN 73.6 mg/dL; Prot/Crea Ur Ratio 0.52
== END 2023-05-02 17:45 | disposition home or self-care (01) ==
LOC: NCHCN 17:44
PROVIDERS: PCP Nurse Practitioner Family; Visit Provider Nurse Practitioner Family
DX: E11.9 Type 2 diabetes mellitus without complications (principal)
CPT/HCPCS: 82565; 84156

== ENCOUNTER 2023-05-29 01:59 | Outpatient (CLI) | payer MEDICARE, MEDICAID, SELFPAY ==
[2023-05-29 14:34] LABS: Abs Immature Grans 0.06 10^3/uL (0.0-0.06); Absolute Basophil Count 0.02 10^3/uL (0.0-0.2); Absolute Eosinophil Count 0.23 10^3/uL (0.0-0.7); Absolute Lymphocyte Count 1.72 10^3/uL (1.2-3.4); Absolute Monocyte Count 1.26 10^3/uL (0.1-0.8); Basophils % 0.2; Eosinophils % 2.6; HCT 38.7 % (40.0-50.0); HGB 12.8 g/dL (13.5-17.5); Immature Grans % 0.7; Lymphocytes % 19.8; MCH 31.5 pg (27.0-33.0); MCHC 33.1 % (32.0-36.0); MCV 95 fL (80-95); MPV 9.4 fL (8.0-11.0); Monocytes % 14.5; Neutrophils % 62.2; Platelet Count 246 10^3/uL (130-400); RBC 4.06 10^6/uL (4.36-5.78); RDW 12.9 % (11.8-14.1); RDW-SD 45.4 fL; WBC 8.69 10^3/uL (4.4-10.8)
[2023-05-29 15:20] LABS: ALT 19 U/L (16-63); AST 11 U/L (15-37); Albumin 3.8 g/dL (3.4-5.0); Alkaline Phosphatase 89 U/L (46-116); Anion Gap 8.1 mmol/L (3-11); BUN 17 mg/dL (7-18); Bilirubin, Total 0.2 mg/dL (0.2-1.0); CO2 26.9 mmol/L (21.0-32.0); CREATININE 1.2 mg/dL (0.70-1.30); Chloride 99 mmol/L (98-107); Estimated GFR 65.06 (mL/min/1.73m2); Glucose 112 mg/dL (74-106); Potassium 5.4 mmol/L (3.5-5.1); Sodium 134 mmol/L (136-145); Total Protein 7.3 g/dL (6.4-8.2)
== END 2023-05-29 02:00 | disposition home or self-care (01) ==
LOC: LBO 01:59
PROVIDERS: PCP Nurse Practitioner Family; Visit Provider Counselor Addiction (Substance Use Disorder)
DX: E11.9 Type 2 diabetes mellitus without complications (principal); F20.9 Schizophrenia, unspecified; Z79.899 Other long term (current) drug therapy
CPT/HCPCS: 36415; 80053; 85025

== ENCOUNTER 2023-06-24 02:15 | Outpatient (CLI) | payer MEDICARE, MEDICAID, SELFPAY ==
[2023-06-24 11:04] LABS: Abs Immature Grans 0.07 10^3/uL (0.0-0.06); Absolute Basophil Count 0.03 10^3/uL (0.0-0.2); Absolute Eosinophil Count 0.24 10^3/uL (0.0-0.7); Absolute Lymphocyte Count 1.54 10^3/uL (1.2-3.4); Absolute Monocyte Count 1.11 10^3/uL (0.1-0.8); Absolute Neutrophil Count 6.65 10^3/uL (1.2-6.7); Basophils % 0.3; Eosinophils % 2.5; HCT 40.7 % (40.0-50.0); HGB 13.3 g/dL (13.5-17.5); Immature Grans % 0.7; MCH 31.3 pg (27.0-33.0); MCHC 32.7 % (32.0-36.0); MCV 96 fL (80-95); MPV 9.7 fL (8.0-11.0); Monocytes % 11.5; Platelet Count 316 10^3/uL (130-400); RBC 4.25 10^6/uL (4.36-5.78); RDW 12.6 % (11.8-14.1); RDW-SD 44.4 fL; WBC 9.64 10^3/uL (4.4-10.8)
[2023-06-24 11:42] LABS: Anion Gap 7.8 mmol/L (3-11); BUN 17 mg/dL (7-18); CO2 26.2 mmol/L (21.0-32.0); CREATININE 1.3 mg/dL (0.70-1.30); Calcium 9.9 mg/dL (8.5-10.1); Chloride 99 mmol/L (98-107); Glucose 264 mg/dL (74-106); Potassium 4.7 mmol/L (3.5-5.1); Sodium 133 mmol/L (136-145)
== END 2023-06-24 02:16 | disposition home or self-care (01) ==
LOC: LBO 02:15
PROVIDERS: PCP Nurse Practitioner Family; Visit Provider Counselor Addiction (Substance Use Disorder)
DX: F20.9 Schizophrenia, unspecified (principal); Z79.899 Other long term (current) drug therapy
CPT/HCPCS: 36415; 80048; 85025

== ENCOUNTER 2023-07-23 02:49 | Outpatient (CLI) | payer MEDICARE, MEDICAID, SELFPAY ==
[2023-07-23 10:12] LABS: Abs Immature Grans 0.12 10^3/uL (0.0-0.06); Absolute Eosinophil Count 0.33 10^3/uL (0.0-0.7); Absolute Lymphocyte Count 1.82 10^3/uL (1.2-3.4); Absolute Monocyte Count 1.25 10^3/uL (0.1-0.8); Basophils % 0.3; Eosinophils % 2.9; HCT 40.6 % (40.0-50.0); HGB 13.3 g/dL (13.5-17.5); Lymphocytes % 15.9; MCH 30.8 pg (27.0-33.0); MCHC 32.8 % (32.0-36.0); MCV 94 fL (80-95); MPV 9.7 fL (8.0-11.0); Monocytes % 10.9; Platelet Count 272 10^3/uL (130-400); RBC 4.32 10^6/uL (4.36-5.78); RDW 12.5 % (11.8-14.1); RDW-SD 43.7 fL; WBC 11.45 10^3/uL (4.4-10.8)
[2023-07-23 10:14] LABS: Absolute Basophil Count 0.03 10^3/uL (0.0-0.2)
== END 2023-07-23 02:50 | disposition home or self-care (01) ==
LOC: LBO 02:49
PROVIDERS: PCP Nurse Practitioner Family; Visit Provider Counselor Addiction (Substance Use Disorder)
DX: Z79.899 Other long term (current) drug therapy (principal)
CPT/HCPCS: 36415; 85025

== ENCOUNTER 2023-08-02 15:11 | Outpatient (REF) | payer MEDICARE, MEDICAID, SELFPAY ==
[2023-08-02 18:47] LABS: Anion Gap 9.2 mmol/L (3-11); BUN 15 mg/dL (7-18); CO2 27.8 mmol/L (21.0-32.0); CREATININE 1.1 mg/dL (0.70-1.30); Calcium 9.4 mg/dL (8.5-10.1); Chloride 98 mmol/L (98-107); Estimated GFR 72.22 (mL/min/1.73m2); Glucose 171 mg/dL (74-106); Magnesium 2.3 mg/dL (1.8-2.4); Potassium 4.5 mmol/L (3.5-5.1); Sodium 135 mmol/L (136-145)
[2023-08-02 18:54] LABS: Hemoglobin A1C 6.9 % (<5.7)
[2023-08-02 19:14] LABS: Vitamin D 25 Total 27.6 ng/mL (30-100)
== END 2023-08-02 15:12 | disposition home or self-care (01) ==
LOC: NCHCN 15:11
PROVIDERS: PCP Nurse Practitioner Family; Visit Provider Nurse Practitioner Family
DX: F32.9 Major depressive disorder, single episode, unspecified (principal)
CPT/HCPCS: 80048; 82306; 83036; 83735

== ENCOUNTER 2023-08-21 03:58 | Outpatient (CLI) | payer MEDICARE, MEDICAID, SELFPAY ==
[2023-08-21 11:06] LABS: Absolute Basophil Count 0.02 10^3/uL (0.0-0.2); Absolute Eosinophil Count 0.12 10^3/uL (0.0-0.7); Absolute Lymphocyte Count 0.78 10^3/uL (1.2-3.4); Absolute Monocyte Count 1.27 10^3/uL (0.1-0.8); Absolute Neutrophil Count 5.95 10^3/uL (1.2-6.7); Basophils % 0.2; Eosinophils % 1.5; HCT 40.4 % (40.0-50.0); HGB 13.4 g/dL (13.5-17.5); Immature Grans % 1.2; Lymphocytes % 9.5; MCH 30.9 pg (27.0-33.0); MCHC 33.2 % (32.0-36.0); MCV 93 fL (80-95); MPV 9.9 fL (8.0-11.0); Monocytes % 15.4; Neutrophils % 72.2; Platelet Count 264 10^3/uL (130-400); RBC 4.33 10^6/uL (4.36-5.78); RDW 12.8 % (11.8-14.1); RDW-SD 43.8 fL; WBC 8.24 10^3/uL (4.4-10.8)
== END 2023-08-21 03:59 | disposition home or self-care (01) ==
LOC: LBO 03:58
PROVIDERS: PCP Nurse Practitioner Family; Visit Provider Counselor Addiction (Substance Use Disorder)
DX: F20.9 Schizophrenia, unspecified (principal); Z79.899 Other long term (current) drug therapy
CPT/HCPCS: 36415; 85025

== ENCOUNTER 2023-09-16 03:43 | Outpatient (CLI) | payer MEDICARE, MEDICAID, SELFPAY ==
[2023-09-16 10:29] LABS: Abs Immature Grans 0.15 10^3/uL (0.0-0.06); Absolute Eosinophil Count 0.29 10^3/uL (0.0-0.7); Absolute Monocyte Count 2.15 10^3/uL (0.1-0.8); Basophils % 0.2; Eosinophils % 1.2; HCT 39.8 % (40.0-50.0); HGB 13.2 g/dL (13.5-17.5); Immature Grans % 0.6; Lymphocytes % 5.3; MCH 31.6 pg (27.0-33.0); MCHC 33.2 % (32.0-36.0); MCV 95 fL (80-95); MPV 9.8 fL (8.0-11.0); Monocytes % 8.8; Neutrophils % 83.9; Platelet Count 276 10^3/uL (130-400); RBC 4.18 10^6/uL (4.36-5.78); RDW 13.7 % (11.8-14.1); RDW-SD 47.6 fL; WBC 24.48 10^3/uL (4.4-10.8)
[2023-09-16 10:33] LABS: Absolute Basophil Count 0.05 10^3/uL (0.0-0.2); Absolute Neutrophil Count 20.54 10^3/uL (1.2-6.7)
[2023-09-16 10:51] LABS: Diff Comment Agrees w/ Instrument; RBC Morphology Normal
[2023-09-16 10:55] LABS: Albumin 3.7 g/dL (3.4-5.0); BUN 16 mg/dL (7-18); CREATININE 1.1 mg/dL (0.70-1.30); Calcium 8.9 mg/dL (8.5-10.1); Chloride 99 mmol/L (98-107); Estimated GFR 72.22 (mL/min/1.73m2); Glucose 176 mg/dL (74-106); PHOSPHORUS 3.1 mg/dL (2.6-4.7); Potassium 5.2 mmol/L (3.5-5.1); Sodium 133 mmol/L (136-145); TSH 2.78 uIU/mL (0.36-3.74)
[2023-09-16 11:56] LABS: Vitamin D 25 Total 32.4 ng/mL (30-100)
== END 2023-09-16 03:44 | disposition home or self-care (01) ==
LOC: LBO 03:44
PROVIDERS: PCP Nurse Practitioner Family; Visit Provider Counselor Addiction (Substance Use Disorder)
DX: F20.9 Schizophrenia, unspecified (principal); Z79.899 Other long term (current) drug therapy
CPT/HCPCS: 36415; 80069; 82306; 84443; 85025

== ENCOUNTER 2023-09-20 15:52 | Outpatient (REF) | payer MEDICARE, MEDICAID, SELFPAY ==
[2023-09-20 15:45] LABS: Absolute Basophil Count 0.03 10^3/uL (0.0-0.2); Absolute Eosinophil Count 0.19 10^3/uL (0.0-0.7); Absolute Lymphocyte Count 1.29 10^3/uL (1.2-3.4); Absolute Monocyte Count 0.58 10^3/uL (0.1-0.8); Absolute Neutrophil Count 6.21 10^3/uL (1.2-6.7); Basophils % 0.4; Eosinophils % 2.3; HCT 40.4 % (40.0-50.0); HGB 13.2 g/dL (13.5-17.5); Immature Grans % 1.2; Lymphocytes % 15.4; MCH 31.1 pg (27.0-33.0); MCHC 32.7 % (32.0-36.0); MCV 95 fL (80-95); MPV 10.6 fL (8.0-11.0); Monocytes % 6.9; Neutrophils % 73.8; Platelet Count 271 10^3/uL (130-400); RBC 4.24 10^6/uL (4.36-5.78); RDW 13.5 % (11.8-14.1); RDW-SD 47.3 fL
[2023-09-20 16:14] LABS: Anion Gap 6.2 mmol/L (3-11); BUN 11 mg/dL (7-18); CO2 26.8 mmol/L (21.0-32.0); CREATININE 1.1 mg/dL (0.70-1.30); Calcium 9.4 mg/dL (8.5-10.1); Chloride 97 mmol/L (98-107); Estimated GFR 72.22 (mL/min/1.73m2); Glucose 246 mg/dL (74-106); Potassium 4.5 mmol/L (3.5-5.1); Sodium 130 mmol/L (136-145)
[2023-09-20 16:51] LABS: COMMENT (LAB VIEW ONLY) 112.61 mg/dL; Microalb ug/mg Crea 58.5 ug/mg Cr
== END 2023-09-20 15:53 | disposition home or self-care (01) ==
LOC: NCHCN 15:52
PROVIDERS: PCP Nurse Practitioner Family; Visit Provider Nurse Practitioner Family
DX: D72.829 Elevated white blood cell count, unspecified (principal); I10 Essential (primary) hypertension; E11.21 Type 2 diabetes mellitus with diabetic nephropathy
CPT/HCPCS: 80048; 82043; 82570; 85025

== ENCOUNTER 2023-10-21 04:51 | Outpatient (CLI) | payer MEDICARE, MEDICAID, SELFPAY ==
[2023-10-21 10:12] LABS: Abs Immature Grans 0.13 10^3/uL (0.0-0.06); Absolute Eosinophil Count 0.33 10^3/uL (0.0-0.7); Absolute Neutrophil Count 10.17 10^3/uL (1.2-6.7); Basophils % 0.1; Eosinophils % 2.4; HCT 39.9 % (40.0-50.0); HGB 13.2 g/dL (13.5-17.5); Lymphocytes % 11.8; MCH 31.7 pg (27.0-33.0); MCHC 33.1 % (32.0-36.0); MCV 96 fL (80-95); MPV 9.8 fL (8.0-11.0); Monocytes % 9.9; Neutrophils % 74.8; Platelet Count 253 10^3/uL (130-400); RBC 4.17 10^6/uL (4.36-5.78); RDW 13.8 % (11.8-14.1); RDW-SD 48.9 fL; WBC 13.59 10^3/uL (4.4-10.8)
[2023-10-21 10:15] LABS: Absolute Basophil Count 0.01 10^3/uL (0.0-0.2); Absolute Monocyte Count 1.35 10^3/uL (0.1-0.8)
== END 2023-10-21 04:52 | disposition home or self-care (01) ==
LOC: LBO 04:51
PROVIDERS: PCP Nurse Practitioner Family; Visit Provider Counselor Addiction (Substance Use Disorder)
DX: F20.89 Other schizophrenia (principal); Z79.899 Other long term (current) drug therapy
CPT/HCPCS: 36415; 85025

== ENCOUNTER 2023-11-18 05:04 | Outpatient (CLI) | payer MEDICARE, MEDICAID, SELFPAY ==
[2023-11-18 13:39] LABS: Abs Immature Grans 0.15 10^3/uL (0.0-0.06); Absolute Basophil Count 0.04 10^3/uL (0.0-0.2); Absolute Eosinophil Count 0.27 10^3/uL (0.0-0.7); Absolute Lymphocyte Count 1.79 10^3/uL (1.2-3.4); Absolute Monocyte Count 1.01 10^3/uL (0.1-0.8); Absolute Neutrophil Count 7.12 10^3/uL (1.2-6.7); Basophils % 0.4; Eosinophils % 2.6; HCT 38.9 % (40.0-50.0); HGB 12.7 g/dL (13.5-17.5); Immature Grans % 1.4; Lymphocytes % 17.2; MCH 31.2 pg (27.0-33.0); MCHC 32.6 % (32.0-36.0); MCV 96 fL (80-95); MPV 9.9 fL (8.0-11.0); Monocytes % 9.7; Neutrophils % 68.7; Platelet Count 246 10^3/uL (130-400); RBC 4.07 10^6/uL (4.36-5.78); RDW 13.5 % (11.8-14.1); RDW-SD 47.9 fL; WBC 10.38 10^3/uL (4.4-10.8)
== END 2023-11-18 05:05 | disposition home or self-care (01) ==
LOC: LBO 05:04
PROVIDERS: PCP Nurse Practitioner Family; Visit Provider Counselor Addiction (Substance Use Disorder)
DX: F20.9 Schizophrenia, unspecified (principal); Z79.899 Other long term (current) drug therapy
CPT/HCPCS: 36415; 85025

== ENCOUNTER → 2023-11-25 11:03 | Outpatient (BNVA) | payer MEDICARE, MEDICAID, SELFPAY | PROVIDERS: PCP Nurse Practitioner Family; Referring Provider Nurse Practitioner Family; Visit Provider Student in an Organized Health Care Education/Training Program | DX: J44.9 Chronic obstructive pulmonary disease, unspecified (principal); Z87.891 Personal history of nicotine dependence | CPT/HCPCS: 99214 ==

== ENCOUNTER → 2023-12-09 02:21 | Outpatient (CLI) | payer MEDICARE, MEDICAID, SELFPAY ==
--- NOTE | 2023-12-09 13:30 | DI.CTLCSR_ITS ---
Exam(s) CT CHEST LUNG CANCER SCREEN EXAM: CT CHEST LUNG CANCER SCREEN CLINICAL HISTORY: Screening for lung cancer,former smoker, z87.891 TECHNIQUE: Imaging Protocol: Axial computed tomography images with coronal and sagittal reformatted images were created and reviewed COMPARISON: CT CT CHEST WO from 05/10/[address] CHEST LUNG CANCER SCREEN from 05/21/[address] CHEST WO from 10/23/2022 FINDINGS: Tracheobronchial tree: Bronchiectatic changes are seen in the lungs particularly in the right middle lobe, left lingula and both lower lobes. Pulmonary parenchyma: No consolidation or dominant measurable mass. There are calcified granuloma pre sent. The lungs are hyperinflated. Scarring and atelectasis in the medial aspect of the lingula and right middle lobe. There are stable pulmonary nodules which are noncalcified. The largest measures 5 mm and is located in the right upper lobe (series 3 image 301). This is stable. There is a new 4 mm nodule also seen in the right upper lobe. (Series 3, image 293). There is a stable 7.6 mm nodul e in the right upper lobe (series 3, image 254). There is an adjacent stable 6 mm nodule (series 3, image 261). There is a new 3 mm nodule peripherally in the right upper lobe (series 3, image 210). There is a new 4 mm nodule in the posterior periphery of the right upper lobe (image 156 series 3). Scarring or atelectasis is seen in the right lower lobe. Lung Nodules: Please see the above section under pulmonary parenchyma. Mediastinum and Ying: No dominant adenopathy or fluid collection. The esophagus is unremarkable.Calci fied lymph nodes are seen in the mediastinum consistent with prior granulomatous disease. There is a small hiatal hernia. Thyroid gland: Unremarkable. Lymph nodes: Unremarkable. Pleura: No effusion or pneumothorax. Heart: The heart is not dilated. Coronary artery calcifications are present. No pericardial effusion . Aorta: Thoracic aorta non-dilated.Atherosclerotic calcification of the thoracic aorta is noted. Upper abdomen: Stable nodularity of the adrenal glands bilaterally. This likely reflects adrenal ad enomas. Soft Tissues: Bilateral gynecomastia, right greater than left. Bones: Within normal limits. There is a lytic lesion seen in the lateral aspect of the left 9th rib. IMPRESSION: 1. Several new pulmonary nodules. The new nodules measure up to 4 mm in size. 2. Findings of prior granulomatous disease in the chest. 3. New lytic lesion in the lateral aspect of the left 9th rib. Metastatic disease can not be exclude d. Lung RADS Cat 3S - Probably Benign: Probably benign finding(s) - short term follow-up suggested; incl ude nodules with a low likelihood of becoming a clinically active cancer. Other: Clinically Significa nt or Potentially Clinically Significant Findings (non lung cancer) Lung-RADS 1.0 CATEGORIES: Category 0 - Prior chest CT exam(s) being located for comparison. Category 1 - Annual screening in 12 months. No nodules or definitely benign nodules. Category 2 - Annual screening in 12 months. Benign appearance. Nodules with low likelihood of becomin g active cancer. Category 3 - 6-month follow-up. Probably benign. Short-term follow-up suggested. Nodules with low lik elihood of becoming active cancer. Category 4A - 3-month follow-up and CT/PET if >8 mm in size. Suspicious finding. Findings which requi re additional testing. Category 4B - Findings which require additional testing and tissue sampling. Suspicious finding. Category 4X - Category 3 or 4 nodules with additional features or imaging findings that increases the suspicion of malignancy. Modifier S- Potentially clinically significant finding. (Non lung cancer) Unexpected findings RADIATION DOSE DELIVERED: Total DLP Total DLP DATA REPOSITORY: All CT scans at this facility are submitted to the National Radiology Data Registry (NRDR) Dose Index Registry (DIR) with the [employer] (ACR). RADIATION OPTIMIZATION: All CT scans at this facility use at least one of these dose optimization te chniques: automated exposure control; mA and/or kV adjustment per patient size (includes targeted exa ms where dose is matched to clinical indication); or iterative reconstruction.
== END ==
PROVIDERS: PCP Nurse Practitioner Family; Visit Provider Student in an Organized Health Care Education/Training Program
DX: Z87.891 Personal history of nicotine dependence (principal); Z12.2 Encounter for screening for malignant neoplasm of respiratory organs; R91.8 Other nonspecific abnormal finding of lung field
CPT/HCPCS: 71271

== ENCOUNTER 2023-12-10 13:00 | Outpatient (CLI) | payer MEDICARE, MEDICAID, SELFPAY ==
[2023-12-10 11:41] LABS: Abs Immature Grans 0.17 10^3/uL (0.0-0.06); Absolute Basophil Count 0.03 10^3/uL (0.0-0.2); Absolute Eosinophil Count 0.31 10^3/uL (0.0-0.7); Absolute Lymphocyte Count 1.57 10^3/uL (1.2-3.4); Absolute Monocyte Count 1.17 10^3/uL (0.1-0.8); Absolute Neutrophil Count 6.64 10^3/uL (1.2-6.7); Basophils % 0.3; Eosinophils % 3.1; HCT 39.9 % (40.0-50.0); HGB 13.4 g/dL (13.5-17.5); Immature Grans % 1.7; Lymphocytes % 15.9; MCH 32.1 pg (27.0-33.0); MCHC 33.6 % (32.0-36.0); MCV 96 fL (80-95); MPV 9.4 fL (8.0-11.0); Monocytes % 11.8; Neutrophils % 67.2; Platelet Count 316 10^3/uL (130-400); RBC 4.17 10^6/uL (4.36-5.78); RDW 13.1 % (11.8-14.1); RDW-SD 46.1 fL; WBC 9.89 10^3/uL (4.4-10.8)
== END 2023-12-10 13:01 | disposition home or self-care (01) ==
LOC: LBO 13:00
PROVIDERS: PCP Nurse Practitioner Family; Visit Provider Counselor Addiction (Substance Use Disorder)
DX: F20.9 Schizophrenia, unspecified (principal); Z79.899 Other long term (current) drug therapy
CPT/HCPCS: 36415; 85025

== ENCOUNTER 2024-01-07 04:44 | Outpatient (CLI) | payer MEDICARE, MEDICAID, SELFPAY ==
[2024-01-07 10:15] LABS: Abs Immature Grans 0.11 10^3/uL (0.0-0.06); Absolute Basophil Count 0.03 10^3/uL (0.0-0.2); Absolute Lymphocyte Count 1.47 10^3/uL (1.2-3.4); Absolute Monocyte Count 1.39 10^3/uL (0.1-0.8); Absolute Neutrophil Count 11.49 10^3/uL (1.2-6.7); Basophils % 0.2; Eosinophils % 2.2; HCT 40.9 % (40.0-50.0); HGB 13.5 g/dL (13.5-17.5); Immature Grans % 0.7; Lymphocytes % 9.9; MCV 97 fL (80-95); Monocytes % 9.4; Neutrophils % 77.6; Platelet Count 284 10^3/uL (130-400); RBC 4.22 10^6/uL (4.36-5.78); RDW 13.3 % (11.8-14.1); RDW-SD 47.2 fL; WBC 14.81 10^3/uL (4.4-10.8)
[2024-01-07 10:27] LABS: Absolute Eosinophil Count 0.33 10^3/uL (0.0-0.7)
== END 2024-01-07 04:45 | disposition home or self-care (01) ==
LOC: LBO 04:44
PROVIDERS: PCP Nurse Practitioner Family; Visit Provider Counselor Addiction (Substance Use Disorder)
DX: Z79.899 Other long term (current) drug therapy (principal)
CPT/HCPCS: 36415; 85025

== ENCOUNTER → 2024-01-10 00:38 | Outpatient (CLI) | payer MEDICARE, MEDICAID, SELFPAY ==
--- NOTE | 2024-01-10 10:12 | DI.RAD_ITS ---
Exam(s) XR CHEST 2V PA LATERAL EXAM: XR CHEST 2V PA LATERAL CLINICAL HISTORY: NEUTROPHILIA,D72.0. TECHNIQUE: 2D digital imaging was performed. COMPARISON: CR XR CHEST 2V PA LATERAL from 10/04/[address] CHEST LUNG CANCER SCREEN from 12/09/2023 FINDINGS: 2 views: Heart size is normal. The mediastinum is not widened. Atelectasis of both lower lung hernandez is again noted. However, the nodular density-infiltrate in the left lung adjacent to the left heart border is not evident on the present study. There are no pleur al effusions. IMPRESSION: Some improvement when compared to 10/04/2022. Still some persistent atelectasis or scarring in the l ower lung hernandez.. No pleural effusions DATA REPOSITORY: RADIATION DOSE DELIVERED:
== END ==
PROVIDERS: PCP Nurse Practitioner Family; Visit Provider Nurse Practitioner Family
DX: D72.0 Genetic anomalies of leukocytes (principal)
CPT/HCPCS: 71046

== ENCOUNTER 2024-01-10 14:56 | Outpatient (REF) | payer MEDICARE, MEDICAID, SELFPAY ==
[2024-01-10 16:36] LABS: Bilirubin Small (Negative); Blood Negative (Negative); Clarity Sl Cloudy (Clear); Glucose 100 mg/dL (Negative); Ketones 15 mg/dL (Negative); Leukocyte Esterase Negative (Negative); Nitrite Negative (Negative); Specific Gravity >= 1.030 (1.005-1.025); pH 6.5 (5-8)
[2024-01-10 16:47] LABS: Bacteria Rare HPF (Negative); C & S Indicated? No; Casts Negative LPF (Negative); Crystals Many Calcium Oxalate HPF (Negative); Epithelial Cells Rare HPF (Negative); Mucus Trace (Negative); RBC 0-2 HPF (0-2); WBC 0-2 HPF (0-5)
== END 2024-01-10 14:57 | disposition home or self-care (01) ==
LOC: NCHCN 14:56
PROVIDERS: PCP Nurse Practitioner Family; Visit Provider Nurse Practitioner Family
DX: R82.998 Other abnormal findings in urine (principal); D72.0 Genetic anomalies of leukocytes
CPT/HCPCS: 81003; 81015

== ENCOUNTER 2024-01-30 15:09 | Outpatient (REF) | payer MEDICARE, MEDICAID, SELFPAY ==
[2024-01-30 15:18] LABS: Abs Immature Grans 0.17 10^3/uL (0.0-0.06); Absolute Basophil Count 0.03 10^3/uL (0.0-0.2); Absolute Eosinophil Count 0.18 10^3/uL (0.0-0.7); Absolute Lymphocyte Count 1.58 10^3/uL (1.2-3.4); Absolute Monocyte Count 1.03 10^3/uL (0.1-0.8); Absolute Neutrophil Count 6.16 10^3/uL (1.2-6.7); Basophils % 0.3 %; HCT 43.6 % (40.0-50.0); HGB 14.1 g/dL (13.5-17.5); Immature Grans % 1.9 %; Lymphocytes % 17.3 %; MCH 31.6 pg (27.0-33.0); MCHC 32.3 % (32.0-36.0); MCV 98 fL (80-95); MPV 9.9 fL (8.0-11.0); Monocytes % 11.3 %; Neutrophils % 67.2 %; Platelet Count 311 10^3/uL (130-400); RBC 4.46 10^6/uL (4.36-5.78); RDW 12.8 % (11.8-14.1); RDW-SD 45.9 fL; WBC 9.15 10^3/uL (4.4-10.8)
[2024-01-30 15:36] LABS: Anion Gap 8.7 mmol/L (3-11); BUN 18 mg/dL (7-18); CO2 28.3 mmol/L (21.0-32.0); CREATININE 1.2 mg/dL (0.70-1.30); Calcium 9.5 mg/dL (8.5-10.1); Chloride 103 mmol/L (98-107); Estimated GFR 65.06 (mL/min/1.73m2); Glucose 142 mg/dL (74-106); Potassium 4.7 mmol/L (3.5-5.1); Sodium 140 mmol/L (136-145)
[2024-01-30 16:16] LABS: Hemoglobin A1C 6.7 % (<5.7)
== END 2024-01-30 15:10 | disposition home or self-care (01) ==
LOC: NCHCN 15:09
PROVIDERS: PCP Nurse Practitioner Family; Visit Provider Nurse Practitioner Family
DX: E11.9 Type 2 diabetes mellitus without complications (principal)
CPT/HCPCS: 80048; 83036; 85025

== ENCOUNTER 2024-03-09 05:57 | Outpatient (CLI) | payer MEDICARE, MEDICAID, SELFPAY ==
[2024-03-09 11:12] LABS: Abs Immature Grans 0.14 10^3/uL (0.0-0.06); Absolute Basophil Count 0.02 10^3/uL (0.0-0.2); Absolute Monocyte Count 1.31 10^3/uL (0.1-0.8); Basophils % 0.1 %; Eosinophils % 1.7 %; HCT 42.2 % (40.0-50.0); HGB 13.6 g/dL (13.5-17.5); Immature Grans % 0.8 %; Lymphocytes % 10.6 %; MCH 31.6 pg (27.0-33.0); MCHC 32.2 % (32.0-36.0); MCV 98 fL (80-95); MPV 10.1 fL (8.0-11.0); Monocytes % 7.6 %; Neutrophils % 79.2 %; Platelet Count 266 10^3/uL (130-400); RDW 13.2 % (11.8-14.1); RDW-SD 47.7 fL; WBC 17.29 10^3/uL (4.4-10.8)
[2024-03-09 11:22] LABS: Bilirubin Small (Negative); Blood Negative (Negative); Clarity Clear (Clear); Glucose 100 mg/dL (Negative); Ketones 15 mg/dL (Negative); Leukocyte Esterase Negative (Negative); Nitrite Negative (Negative); Specific Gravity >= 1.030 (1.005-1.025); pH 5.5 (5-8)
[2024-03-09 11:29] LABS: Absolute Eosinophil Count 0.29 10^3/uL (0.0-0.7); Absolute Lymphocyte Count 1.83 10^3/uL (1.2-3.4); Absolute Neutrophil Count 13.69 10^3/uL (1.2-6.7)
[2024-03-09 11:43] LABS: Anion Gap 6.6 mmol/L (3-11); BUN 16 mg/dL (7-18); CO2 30.4 mmol/L (21.0-32.0); CREATININE 1.1 mg/dL (0.70-1.30); Calcium 8.7 mg/dL (8.5-10.1); Chloride 100 mmol/L (98-107); Estimated GFR 72.22 (mL/min/1.73m2); Glucose 263 mg/dL (74-106); Potassium 4.7 mmol/L (3.5-5.1); Sodium 137 mmol/L (136-145)
== END 2024-03-09 05:58 | disposition home or self-care (01) ==
LOC: LBO 05:57
PROVIDERS: PCP Nurse Practitioner Family; Visit Provider Nurse Practitioner Psychiatric/Mental Health
DX: Z79.899 Other long term (current) drug therapy (principal)
CPT/HCPCS: 36415; 80048; 81003; 85025

== ENCOUNTER 2024-04-07 04:49 | Outpatient (CLI) | payer MEDICARE, MEDICAID, SELFPAY ==
[2024-04-07 11:57] LABS: Abs Immature Grans 0.12 10^3/uL (0.0-0.06); Absolute Basophil Count 0.02 10^3/uL (0.0-0.2); Absolute Eosinophil Count 0.18 10^3/uL (0.0-0.7); Absolute Lymphocyte Count 1.04 10^3/uL (1.2-3.4); Absolute Monocyte Count 1.75 10^3/uL (0.1-0.8); Absolute Neutrophil Count 6.59 10^3/uL (1.2-6.7); Basophils % 0.2 %; Eosinophils % 1.9 %; HCT 40.2 % (40.0-50.0); HGB 13.5 g/dL (13.5-17.5); Immature Grans % 1.2 %; Lymphocytes % 10.7 %; MCH 32.1 pg (27.0-33.0); MCHC 33.6 % (32.0-36.0); MCV 96 fL (80-95); MPV 9.7 fL (8.0-11.0); Platelet Count 224 10^3/uL (130-400); RDW 13.3 % (11.8-14.1)
[2024-04-07 11:59] LABS: Bilirubin Small (Negative); Blood Negative (Negative); Clarity Clear (Clear); Glucose 250 mg/dL (Negative); Ketones 15 mg/dL (Negative); Leukocyte Esterase Negative (Negative); Nitrite Negative (Negative); Specific Gravity >= 1.030 (1.005-1.025)
[2024-04-07 12:06] LABS: Anion Gap 5.1 mmol/L (3-11); BUN 10 mg/dL (7-18); CO2 29.9 mmol/L (21.0-32.0); CREATININE 1.2 mg/dL (0.70-1.30); Calcium 8.8 mg/dL (8.5-10.1); Chloride 100 mmol/L (98-107); Estimated GFR 65.06 (mL/min/1.73m2); Glucose 194 mg/dL (74-106); Potassium 4.6 mmol/L (3.5-5.1); Sodium 135 mmol/L (136-145)
[2024-04-07 12:16] LABS: Epithelial Cells Rare HPF (Negative); RBC 0-2 HPF (0-2); WBC 0-2 HPF (0-5)
[2024-04-07 12:17] LABS: Bacteria Few HPF (Negative); C & S Indicated? No; Casts Negative LPF (Negative); Crystals Negative HPF (Negative); Mucus Moderate (Negative)
[2024-04-07 12:26] LABS: Diff Comment Diff Reviewed; RBC Morphology Normal
== END 2024-04-07 04:50 | disposition home or self-care (01) ==
LOC: LBO 04:50
PROVIDERS: PCP Nurse Practitioner Family; Visit Provider Nurse Practitioner Psychiatric/Mental Health
DX: F20.9 Schizophrenia, unspecified (principal); Z79.899 Other long term (current) drug therapy
CPT/HCPCS: 36415; 80048; 81003; 81015; 85025

== ENCOUNTER 2024-04-24 06:45 | Day surgery (SDC) | payer MEDICARE, MEDICAID, SELFPAY ==
[2024-04-24] MEDS: Tropicam./Phenyleph. (1/2.5%) 5 ML BTL OS ×3 (07:19→07:45)
[2024-04-24 07:32] VITALS: BP 135/75; PULSE 97; RESP 16; TEMP 36.2; O2SAT 94
--- NOTE | 2024-04-24 07:42 | ANES.PREOP_ITS ---
General Info Date of Service Date Performed: 04/24/24 Height: 5 ft 8 in Weight: 75.2 kg Body Mass Index (BMI): 25.2 Surgical Procedure: Operation Date: 04/24/24 08:40 Proposed Procedure Side Surgeon p Cataract Extraction with IOL Implant Left Chintan Lo MD Meds Allergies and Home Medications Allergies Allergy/AdvReac Type Severity Reaction Status Date / Time Macrolide Antibiotics Allergy Severe Other (See Verified 04/24/24 07:19 Comment) Home Medication ?Medication ?Instructions ?Recorded ziprasidone HCl 80 mg capsule 80 - 160 mg PO DIRECTED 06/18/17 (Geodon) calcium carbonate 500 mg (2.5 x 200 mg calcium (500 12/05/18 mg)) PO TID PRN PRN #0 tabs cyanocobalamin (vitamin B-12) 500 1,000 mcg (2 x 500 mcg) PO DAILY 01/23/19 mcg tablet (Vitamin B-12) #60 tabs docusate sodium 100 mg capsule 100 mg PO DAILY #30 caps 01/23/19 (Colace) folic acid 1 mg tablet 1 mg PO DAILY #30 tabs 01/23/19 magnesium chloride 64 mg 64 mg PO BID #30 tabs 01/23/19 (magnesium chloride) tablet,delayed release (Mag 64) multivitamin (Multiple Vitamins 1 tab PO DAILY #30 tabs 01/23/19 tablet) pantoprazole 40 mg tablet,delayed 40 mg PO BID@0730,1999 #30 tabs 01/23/19 release bupropion HCl 300 mg 24 hr tablet, 300 mg PO QAM 08/14/19 extended release (Wellbutrin XL) ferrous gluconate 324 mg (38 mg 324 mg PO DAILY 08/14/19 iron) tablet pioglitazone 30 mg tablet (Actos) 30 mg PO DAILY 08/14/19 simvastatin 20 mg tablet 20 mg PO QHS 08/14/19 Ventolin HFA 90 mcg/actuation 2 puff inhalation Q4H PRN PRN #18 02/07/20 aerosol inhaler (albuterol sulfate) grams acetaminophen 650 mg 650 mg PO BID 04/21/20 tablet,extended release (Tylenol Arthritis Pain) ibuprofen 200 mg tablet 200 mg PO PRN PRN 04/21/20 polyethylene glycol 3350 17 17 g PO DAILY PRN PRN 04/25/20 gram/dose oral powder hydroxyzine pamoate 25 mg capsule 25 mg PO DAILY PRN PRN 10/17/20 (Vistaril) lisinopril 2.5 mg tablet 2.5 mg PO DAILY 10/17/20 glucosamine sulfate 500 1 tab PO TID 11/23/22 mg-chondroitin 400 mg-msm 167 mg tablet umeclidinium 62.5 mcg-vilanterol See Rx Instructions .Route 05/31/23 25 mcg/actuation powdr for .COMPLEX #60 ea inhalation (Anoro Ellipta) benazepril 5 mg tablet 5 mg PO DAILY 11/25/23 clozapine 100 mg tablet (Clozaril) 200 - 375 mg PO DIRECTED 11/25/23 metformin 1,000 mg tablet 500 mg PO BID 11/25/23 celecoxib 100 mg capsule mg 04/24/24 clozapine 25 mg tablet mg 04/24/24 escitalopram oxalate 20 mg tablet mg 04/24/24 Current Visit Medications: Current Medications Generic Name Dose Route Start Last Admin Trade Name Freq PRN Reason Stop Dose Admin Acetaminophen 1,000 mg 04/24/24 06:00 Acetaminophen 500 Mg Tab PO 05/24/24 05:59 Q4H PRN PRN Balanced Salt Solution 500 ml 04/24/24 06:00 Balanced Salt Soln.-Plus 500 Ml Bag OP 05/24/24 05:59 DIRECTED [facility] Miscellaneous Medication 0 ml 04/24/24 06:00 Prednisolone 1%, Moxifloxacin 0.5%, Bromfenac 0.09% 5ml Btl OS 05/24/24 05:59 DIRECTED [facility] Miscellaneous Medication 0 ml 04/24/24 06:00 04/24/24 07:30 Tropicam./Phenyleph. (1/2.5%) 5 Ml Btl OS 05/24/24 05:59 1 drp DIRECTED [facility] Administration Tetracaine HCl 0 ml 04/24/24 06:00 Tetracaine 0.5% 4 Ml Btl OS 05/24/24 05:59 DIRECTED [facility] PFSH Active Problems Active Problems: Problem Status Onset Code Nuclear age-related cataract, left eye Acute H25.12 Pulmonary nodule Acute R91.1 Asthma-COPD overlap syndrome Acute J44.9 Recurrent pneumonia Acute J18.9 Pain Chronic R52 Community acquired pneumonia Acute J18.9 Pneumonia Acute J18.9 H/O: CVA (cerebrovascular accident) Acute Z86.73 Diabetes mellitus Chronic E11.9 HCAP (healthcare-associated pneumonia) Acute J18.9 UTI (urinary tract infection) Acute N39.0 Acute pyelonephritis Acute N10 COPD (chronic obstructive pulmonary disease) Chronic J44.9 Acute respiratory failure with hypoxia Resolved J96.01 Constipation, chronic Chronic K59.09 Discharge planning issues Acute Z02.9 Schizo affective schizophrenia Chronic F25.0 Non-insulin dependent type 2 diabetes mellitus Chronic E11.9 Oropharyngeal dysphagia Acute R13.12 Hypertension Chronic I10 GERD (gastroesophageal reflux disease) Chronic K21.9 DVT prophylaxis Acute Medical History Medical History Acidosis, lactic Acute thrombosis of right basilic vein Adrenal hyperplasia [place] (acute kidney injury) Complication associated with peripherally inserted central catheter (PICC) Constipation, chronic COPD (chronic obstructive pulmonary disease) Diabetes mellitus GERD (gastroesophageal reflux disease) H/O schizophrenia H/O: CVA (cerebrovascular accident) Hypertension MSSA bacteremia Non-insulin dependent type 2 diabetes mellitus Normocytic anemia Oropharyngeal dysphagia Pneumonia Pulmonary emboli Schizo affective schizophrenia Sepsis Medical History Comments:: Pt. lives in Assisted living facility. Pt. signs for self, and is ambulatory and know his own meds as well. per human resource officer. 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 that you will need to repeat things Tobacco Smoking/Tobacco Use Status: Former Tobacco Use Alcohol Alcohol Intake: former Substance Use Substance use: Occasionally Substance use type: does not use Vital Signs and Lab Results Vital Signs Most Recent Vital Signs in EMR: Most Recent Vital Signs Temp Pulse Resp BP Pulse Ox 36.2 C L 97 H 16 135/75 94 04/24/24 07:32 04/24/24 07:32 04/24/24 07:32 04/24/24 07:32 04/24/24 07:32 Lab Results Blood Type / Crossmatch: No Data to Display Complete Blood Count: White Blood Count 9.70 10^3/uL (4.4-10.8) 04/07/24 11:50 Red Blood Count 4.20 10^6/uL (4.36-5.78) L 04/07/24 11:50 Hemoglobin 13.5 g/dL (13.5-17.5) 04/07/24 11:50 Hematocrit 40.2 % (40.0-50.0) 04/07/24 11:50 Platelet Count 224 10^3/uL (130-400) 04/07/24 11:50 Complete Metabolic Panel: Sodium 135 mmol/L (136-145) L 04/07/24 11:50 Potassium 4.6 mmol/L (3.5-5.1) 04/07/24 11:50 Chloride 100 mmol/L (98-107) 04/07/24 11:50 Carbon Dioxide 29.9 mmol/L (21.0-32.0) 04/07/24 11:50 BUN 10 mg/dL (7-18) 04/07/24 11:50 Creatinine 1.2 mg/dL (0.70-1.30) 04/07/24 11:50 Est GFR (CKD-EPI 2020) 65.06 (mL/min/1.73m2) 04/07/24 11:50 Calcium 8.8 mg/dL (8.5-10.1) 04/07/24 11:50 Glucose 194 mg/dL (74-106) H 04/07/24 11:50 Liver Function Panel: No Data to Display Coagulation Panel: No Data to Display Cardiac Panel: No Data to Display Arterial Blood Gas: No Data to Display Venous Blood Gas: No Data to Display Pancreas Panel: No Data to Display Thyroid Panel: No Data to Display Infectious Disease: No Data to Display Blood Cultures: No Data to Display Toxicology Panel: No Data to Display Imaging and Studies Imaging and Studies Study information below may be from another EMR and interpreted by another provider. Please see original notes in EMR for more complete details. EKG Summary: DATE/TIME OF SERVICE: 03/30/21 1317 : 1955 PERFORMING LOCATION: [place] APPROVED REPORT Exam: Resting ECG Reason for Exam: pain Patient Location: I HR:96 bpm ECG Measurements Heart Rate 96 AXIS UT 155 P 62 QRSd 105 QRS -32 QT 369 T60 QTc 467 Conclusion Sinus rhythm...normal P axis, V-rate 60- 99 Left axis deviation...QRS axis (-30,-90) Echocardiogram Summary: Date of Exam: 01/26/20 Sex: M Admission Date: 01/22/20 : 1955 Age: 64 Exam(s) a US:US echocardiogram APPROVED REPORT EXAM: Comprehensive 2D, Doppler, and color-flow Echocardiogram Patient Location: In-Patient Room/Bed: 214A Water Purifier Operator: Keerthi Lowry RDCS (AE) Indications: Staph Bacteremia Conclusion This is a limited echo specifically to look for valvular vegetations. Left Ventricle : The Left Ventricular Ejection Fraction is within the low???normal range Valves: There are no valvular vegetations visualized. Compared to echocardiogram dated 01/04/2020: There is no significant change. Pulmonary Function Summary: Date of service: 06/07/21 Time of Service: 10:04 Pulmonary Function Test Result Requesting Provider Nisha Indications: COPD, recurrent pneumonias Interpretation Spirometry: There is moderate obstruction. There is a positive bronchodilator response. Lung Volumes: There is evidence of hyperinflation and air trapping. Diffusion Capacity: The diffusion is normal. Airway Pressure: Airways resistance is normal. Impression There is moderate obstruction with hyperinflation and air trapping with a si gnificant bronchodilator response. Clinical Correlation therefore is recommended. Anesthesia Assessment and Plan Anesthesia History Personal History: No History of Anesthesia Complications Family History: No Family History of Anesthesia Complications Exercise Tolerance Exercise Tolerance: Metabolic Equivalents>4 Pertinent Negatives Pertinent Negatives: No Symptoms of GERD Cardiac & Pulmonary Exam Cardiac Exam: Normal S1/S2 Heart Sounds Pulmonary Exam: Clear Bilateral Breath Sounds Implantable Cardiac Device Does patient have a Pacemaker or an ICD?: No Airway Exam Known Difficult Airway: No Mallampati Class: 2 Mouth Opening: Normal (> 3cm) Thyromental Distance: Greater than 3 cm Neck Range of Motion: Full ROM Neck Circumference: Normal Teeth Condition: Normal Dentition ASA Classification ASA Score: ASA 3 Emergency Case?: No NPO Status NPO Status: NPO Clears >2 hours, Solids >8 hours Anesthesia Plan Resuscitation Status: Full Code Anesthesia Technique: MAC Anesthesia Airway Planned: Natural Airway Monitors Used: Standard Monitors
[2024-04-24 07:43] VITALS: BMI 25.2
[2024-04-24] MEDS: Tetracaine 0.5% 4 ML BTL OS (08:32)
[2024-04-24] MEDS: Povidone-Iodine Ophth 30 ML BTL (08:32)
[2024-04-24] MEDS: Balanced Salt Soln.-PLUS 500 ML BAG OP ×2 (08:39→09:25)
[2024-04-24] MEDS: Lidocaine 1% Pres-Free 5 ML VIAL (08:40)
[2024-04-24] MEDS: Duovisc Viscoelastic System EACH 1 EACH ×2 (08:41→09:12)
[2024-04-24] MEDS: Trypan Blue 0.06% 0.5 ML SYR (08:51)
--- NOTE | 2024-04-24 09:37 | W.PM.DSUDISC ---
Date of service: 04/24/24 Time of Service: 09:37 Discharge Plan Disposition Patient Disposition: Home Discharge Details Attending Provider: Chintan Lo Primary Care Provider: Columba Carter Home Meds and New Rx's Prescriptions: No Action ferrous gluconate 324 mg (38 mg iron) tablet 324 mg PO DAILY pioglitazone [Actos] 30 mg tablet 30 mg PO DAILY simvastatin 20 mg tablet 20 mg PO QHS bupropion HCl [Wellbutrin XL] 300 mg tablet extended release 24 hr 300 mg PO QAM glucosamine tak-xwkenlyzvr-gac 500-400-167 mg tablet 1 tab PO TID Rx Instructions: give with meal/snack benazepril 5 mg tablet 5 mg PO DAILY Anoro Ellipta 62.5-25 mcg/actuation blister with device See Rx Instructions .ROUTE .COMPLEX Qty: 60 12RF Dose Instruction: INHALE 1 PUFF BY MOUTH DAILY Rx Instructions: INHALE 1 PUFF BY MOUTH DAILY calcium carbonate 200 mg calcium (500 mg) Tablet,Chewable 500 mg PO TID PRN PRNQty: 0 0RF multivitamin [Multiple Vitamins] Tablet 1 tab PO DAILY Qty: 30 0RF cyanocobalamin (vitamin B-12) [Vitamin B-12] 500 mcg Tablet 1,000 mcg PO DAILY Qty: 60 0RF pantoprazole 40 mg Tablet,Delayed Release (Dr/Ec) 40 mg PO BID@729,1999 Qty: 30 0RF docusate sodium [Colace] 100 mg Capsule 100 mg PO DAILY Qty: 30 0RF folic acid 1 mg Tablet 1 mg PO DAILY Qty: 30 0RF magnesium chloride [Mag 64] 64 mg Tablet,Delayed Release (Dr/Ec) 64 mg PO BID Qty: 30 0RF metformin 1,000 mg tablet 500 mg PO BID ibuprofen 200 mg Tablet 200 mg PO PRN PRN acetaminophen [Tylenol Arthritis Pain] 650 mg Tablet Extended Release 650 mg PO BID polyethylene glycol 3350 17 gram/dose powder 17 g PO DAILY PRN PRN Patient Comments: TK 17 GRAMS DISSOLVED IN LIQUID BY MOUTH ONCE DAILY Rx Instructions: PRN PER PROVIDERS MED LIST hydroxyzine pamoate [Vistaril] 25 mg capsule 25 mg PO DAILY PRN PRN Patient Comments: Take 1 capsule by mouth once a day as directed and can take an additional 1 po prn daily for anxiety lisinopril 2.5 mg tablet 2.5 mg PO DAILY ziprasidone HCl [Geodon] 80 MG capsule 80 - 160 mg PO DIRECTED Rx Instructions: 80mg QAM 160mg @ 5PM WITH DINNER clozapine [Clozaril] 100 mg tablet 200 - 375 mg PO DIRECTED Rx Instructions: 200mg QAM albuterol sulfate [Ventolin HFA] 90 mcg/actuation Hfa Aerosol Inhaler 2 puff inhalation Q4H PRN PRNQty: 18 0RF clozapine 25 mg tablet Patient Comments: MAr shows 575mg between Am and PM doses celecoxib 100 mg capsule Patient Comments: 100 mg BID escitalopram oxalate 20 mg tablet Patient Comments: daily Discharge Instructions Stand Alone Forms: DSU Post-Op CataractCali (DSU) Discharge Orders Discharge Orders: Discharge Order (Routine); Ordered 04/24/24 Ordered By: Chintan Lo DS: Diagnosis Discharge Diagnosis (1) Nuclear age-related cataract, left eye: Status: Resolved
[2024-04-24 09:38] VITALS: BP 150/85; PULSE 84; RESP 16; TEMP 36.4; O2SAT 96
--- NOTE | 2024-04-24 09:38 | ROE_ITS ---
Date of service: 04/24/24 Time of Service: 09:38 Operative Note Operative Note DATE OF PROCEDURE: 04/24/24 PRE-OP DIAGNOSIS: Dense nuclear cataract, left eye Poorly dilating pupil, left eye POST-OP DIAGNOSIS: same PROCEDURE: Cataract extraction by phacoemulsification with intraocular lens implantation, left eye, with pupillary expansion device SURGEON: Chintan Lo ANESTHESIA TYPE: Local By Surgeon and MAC Refer to Anesthesia Record ESTIMATED BLOOD LOSS: 0 PATHOLOGY: none sent COMPLICATIONS: None Patient was transported to: same day Patient's condition: stable Implants: Danny Clareon [id number] intraocular lens implant Indications: Progressive decreased vision, left eye Poorly dilating pupil, left eye. Procedure Description: CATARACT SURGERY OPERATIVE REPORT PREOPERATIVE DIAGNOSIS: 1. Dense nuclear cataract, left eye 2. Poorly dilating pupil, left eye POSTOPERATIVE DIAGNOSIS: Same OPERATION: 1. Cataract extraction using phacoemulsification with posterior chamber intraocular lens implant, left eye. 2. Pupillary dilation and iris stabilization using Malyugin Ring IOL; IOL Corporate Health Consultant/Model: Danny Clareon [id number] IOL Power: + 19.0 diopters IOL Serial Number: [id number] Optic Diameter: 6.0 mm Haptic/Overall Diameter: 13.00 mm PHACO INFO: Danny Centurion Vision System with OZil and Active Fluidics Cumulative Dispersed Energy (CDE): 31.59 seconds SURGEON: Chintan Lo MD, MANI ANESTHESIA: Monitored Anesthesia Care (MAC), with local sub-tenon's anesthetic infiltration COMPLICATIONS: None SPECIMENS: None INDICATIONS FOR PROCEDURE: The patient is a 68-year-old male with history of diminished visual acuity in his left eye secondary to the development of significant nuclear cataract. He is also noted to have a poorly dilating pupil in the left eye. The option of cataract surgery was offered to the patient and he wished to proceed. Undilated pupil size is 2 mm, dilated pupil size approximately 3 mm. See office notes for detailed information. PROCEDURE: The correct surgical eye was identified and marked as the left eye and the pupil was dilated in the preoperative area using mydriatics, cycloplegics, and NSAIDS (except in aspirin allergic patients). The dilated pupil size was 3.0 mm. Oral sedation was administered in the form of an Imprimis MKO Melt (midazolam 3mg/ketamine 25mg/ondansetron 2mg). . The patient was brought to the operating room where cardiopulmonary monitoring was instituted and surgical time-out was performed, confirming the correct operative eye and IOL power. Topical anesthesia was administered and ophthalmic povidone-iodine 5% was instilled into the conjunctival fornices. The luis daniel-ocular area was prepped with Betadine 10% solution and draped in the usual sterile fashion for intraocular surgery, including an aperture drape. A Tegaderm transparent film dressing was cut in half and used to cover the lashes and lid margins. Care was taken to sequester the lashes and lid margins under the Tegaderm dressing. A lid spec ulum was placed between the lids of the operative eye and the operating microscope was maneuvered into position. Jones scissors were then used to make a conjunctival buttonhole approximately 6mm posterior to the limbus in the inferonasal quadrant. Blunt dissection was carried out to expose bare sclera, and a blunt-tipped sub-tenon?s anesthesia cannula was introduced and passed posteriorly along the globe where non- preserved plain lidocaine was injected into posterior sub-Tenon?s space. A sideport knife was used to make a paracentesis port superiorly/superiortemporally. Intraocular phenylephrine/lidocaine was injected into the anterior chamber. The anterior chamber was then filled with cohesive viscoelastic. A keratome knife was used to create a half-thickness groove at the limbus and then to construct a three-plane near-clear corneal tunnel extending 2.0mm into clear cornea at the temporal position. A 6.25 mm Malyugin Ring was then inserted into the pupillary space and engaged with the Kuglen hook. The viscoelastic was then removed using the irrigation/aspiration handpiece. VisionBlue was then injected into the anterior chamber and painted over the anterior lens capsule, and then irrigated out with balanced salt solution. Dispersive viscoelastic was then injected into the anterior chamber. A flap was raised on the anterior capsule and capsulorhexis forceps were used to complete a continuous curvilinear capsulorhexis of 5.0 mm. Capsule was noted to be quite thin and significant zonular laxity was noted. Balanced salt solution was then used to perform cortical cleaving hydrodissection and nuclear hydrodelineation until the lens could be freely rotated within the capsular bag. The lens nucleus was then disassembled and removed within the capsular bag and iris plane using phacoemulsification. A deep groove was sculpted into the central nucleus, but the cataract could not be easily rotated. Additional [place] dissection, followed by Viscoat dissection was undertaken. Additional sculpting was performed, and nucleus splinters were used to aid in cracking the nucleus into 2 halves. Each half was then carefully subtyped into multiple smaller fragments under additional dispersive viscoelastic protection. Residual cortical material was removed using the 45- degree angled silicone I/A tip with 0.3mm port. The posterior capsule was carefully polished to remove as much residual lens epithelial cells as safely possible. The capsular bag was then inflated and the anterior chamber deepened with viscoelastic. The lens implant described above was inserted into the capsular bag using the Danny Autonome pre-loaeded Injector. A Kuglen hook was used to dial the IOL into position. The Malyugin Ring was removed in the reverse order of its insertion. Residual viscoelastic was then removed first from posterior to the IOL, then from the anterior chamber using the I/A handpiece. The lens implant was noted to center nicely within the capsular bag. The incisions were stromally hydrated, and the anterior chamber was reformed using BSS. Then 0.5cc of moxifloxacin 1.0mg/ml were injected into the capsular bag and anterior chamber. The incisions were checked with a Weck spear and found to be secure. Several drops of ophthalmic povidone-iodine 5% were then applied to the eye followed by two drops of Imprimis combination prednisolone/moxifloxacin/nepafenac solution. The drapes were removed and a clear plastic protective eye shield was placed over the eye. The patient was then returned to [facility] in stable condition.
--- NOTE | 2024-04-24 10:01 | W.ANESPOSTOP ---
Postoperative Evaluation Date, Time and Location Date Performed: 04/24/24 Time Performed: 10:01 Patient Location: Day [facility] Unit Vital Signs Most Recent Imported Vital Signs: Most Recent Vital Signs Temp Pulse Resp BP Pulse Ox 36.4 C L 84 16 150/85 H 96 04/24/24 09:38 04/24/24 09:38 04/24/24 09:38 04/24/24 09:38 04/24/24 09:38 Pain Score Most Recent Pain Score: Most Recent Pain Score Pain Level 0 04/24/24 09:38 Assessment Mental Status: Awake (Alert & Oriented to Patient Baseline) Airway and Respiratory Function: Patent airway with normal (patient baseline) respiratory exam Cardiovascular Function: Hemodynamically Stable Hydration Status: Adequately Hydrated Nausea & Vomiting: No Nausea or Vomiting Pain: Pt. Denies Any Pain Peripheral Nerve Block: Patient did not receive a nerve block
[2024-04-24 10:07] VITALS: BP 145/81; PULSE 85; RESP 16; TEMP 36.5; O2SAT 94
== END 2024-04-24 10:19 | disposition home or self-care (01) ==
LOC: SUR 06:46
PROVIDERS: PCP Nurse Practitioner Family; Visit Provider Ophthalmology
PROC: (CPT 66982; principal; 2024-04-24 08:30)
DX: H25.12 Age-related nuclear cataract, left eye (principal); I10 Essential (primary) hypertension
CPT/HCPCS: 66982; 00123; V2632; J2003

== ENCOUNTER 2024-05-05 02:53 | Outpatient (CLI) | payer MEDICARE, MEDICAID, SELFPAY ==
[2024-05-05 10:51] LABS: Abs Immature Grans 0.42 10^3/uL (0.0-0.06); Absolute Eosinophil Count 0.31 10^3/uL (0.0-0.7); Basophils % 0.2 %; Eosinophils % 1.5 %; HCT 39.7 % (40.0-50.0); HGB 13.2 g/dL (13.5-17.5); Lymphocytes % 4.6 %; MCH 31.7 pg (27.0-33.0); MCHC 33.2 % (32.0-36.0); MCV 95 fL (80-95); MPV 9.5 fL (8.0-11.0); Monocytes % 12.1 %; Neutrophils % 79.6 %; Platelet Count 242 10^3/uL (130-400); RBC 4.16 10^6/uL (4.36-5.78); RDW 13.5 % (11.8-14.1); RDW-SD 47.3 fL; WBC 20.56 10^3/uL (4.4-10.8)
[2024-05-05 10:53] LABS: Absolute Basophil Count 0.04 10^3/uL (0.0-0.2); Absolute Lymphocyte Count 0.95 10^3/uL (1.2-3.4); Absolute Monocyte Count 2.49 10^3/uL (0.1-0.8); Absolute Neutrophil Count 16.37 10^3/uL (1.2-6.7)
[2024-05-05 11:04] LABS: Diff Comment Diff Reviewed; RBC Morphology Normal
== END 2024-05-05 02:54 | disposition home or self-care (01) ==
LOC: LBO 02:53
PROVIDERS: PCP Nurse Practitioner Family; Visit Provider Nurse Practitioner Psychiatric/Mental Health
DX: F25.0 Schizoaffective disorder, bipolar type (principal)
CPT/HCPCS: 36415; 85025

== ENCOUNTER → 2024-05-06 17:31 | Outpatient (CLI) | payer MEDICARE, MEDICAID, SELFPAY ==
--- NOTE | 2024-05-06 12:28 | DI.RAD_ITS ---
Exam(s) XR CHEST 2V PA LATERAL EXAM: XR CHEST 2V PA LATERAL CLINICAL HISTORY: evaluate pneumonia, R05.9. TECHNIQUE: 2D digital imaging was performed. COMPARISON: CR XR CHEST 2V PA LATERAL from 10/17/[address] CHEST WO from 10/23/2022 CR XR CHEST 2V PA LATERAL from 01/10/2024 FINDINGS: 2 views: Heart size is normal. The mediastinum is not widened. Benign calcified granuloma in the left upper lobe is unchanged. There is some platelike atelectasis and scarring in the lung bases, similar to previous studies. No obvious new infiltrates nor pleural effusions. No pulmonary edema. IMPRESSION: No acute pulmonary findings.Scarring in the lung bases is stable. DATA REPOSITORY: RADIATION DOSE DELIVERED:
== END ==
PROVIDERS: PCP Nurse Practitioner Family; Visit Provider Nurse Practitioner Family
DX: R05.9 Cough, unspecified (principal)
CPT/HCPCS: 71046

== ENCOUNTER 2024-05-25 13:30 | Outpatient (REF) | payer MEDICARE, MEDICAID, SELFPAY ==
[2024-05-25 15:48] LABS: Absolute Basophil Count 0.03 10^3/uL (0.0-0.2); Absolute Lymphocyte Count 2.16 10^3/uL (1.2-3.4); Basophils % 0.2 %; Eosinophils % 0.6 %; HCT 40.1 % (40.0-50.0); HGB 12.8 g/dL (13.5-17.5); Immature Grans % 2.1 %; MCH 31.4 pg (27.0-33.0); MCHC 31.9 % (32.0-36.0); MCV 99 fL (80-95); MPV 10.8 fL (8.0-11.0); Neutrophils % 73.1 %; Platelet Count 281 10^3/uL (130-400); RBC 4.07 10^6/uL (4.36-5.78); RDW 13.6 % (11.8-14.1); RDW-SD 49.1 fL
[2024-05-25 16:06] LABS: Absolute Eosinophil Count 0.09 10^3/uL (0.0-0.7); Absolute Neutrophil Count 10.53 10^3/uL (1.2-6.7)
[2024-05-25 16:08] LABS: Anion Gap 11.2 mmol/L (3-11); BUN 18 mg/dL (7-18); CO2 25.8 mmol/L (21.0-32.0); CREATININE 1.2 mg/dL (0.70-1.30); Calcium 9.4 mg/dL (8.5-10.1); Chloride 99 mmol/L (98-107); Estimated GFR 64.65 (mL/min/1.73m2); Glucose 267 mg/dL (74-106); Potassium 4.3 mmol/L (3.5-5.1); Sodium 136 mmol/L (136-145)
[2024-05-25 16:22] LABS: Hemoglobin A1C 6.8 % (<5.7)
== END 2024-05-25 13:31 | disposition home or self-care (01) ==
LOC: NCHCN 13:30
PROVIDERS: PCP Nurse Practitioner Family; Visit Provider Nurse Practitioner Family
DX: E11.21 Type 2 diabetes mellitus with diabetic nephropathy (principal)
CPT/HCPCS: 80048; 83036; 85025

== ENCOUNTER 2024-06-30 10:46 | Outpatient (CLI) | payer MEDICARE, MEDICAID, SELFPAY ==
[2024-06-30 10:51] LABS: Abs Immature Grans 0.14 10^3/uL (0.0-0.06); Absolute Basophil Count 0.03 10^3/uL (0.0-0.2); Basophils % 0.2 %; Eosinophils % 2.2 %; HCT 41.6 % (40.0-50.0); HGB 13.4 g/dL (13.5-17.5); Immature Grans % 1.1 %; Lymphocytes % 11.5 %; MCH 31.3 pg (27.0-33.0); MCHC 32.2 % (32.0-36.0); MCV 97 fL (80-95); MPV 9.8 fL (8.0-11.0); Monocytes % 8.1 %; Neutrophils % 76.9 %; Platelet Count 284 10^3/uL (130-400); RBC 4.28 10^6/uL (4.36-5.78); RDW 13.2 % (11.8-14.1); RDW-SD 46.8 fL; WBC 13.01 10^3/uL (4.4-10.8)
[2024-06-30 10:52] LABS: Absolute Eosinophil Count 0.29 10^3/uL (0.0-0.7); Absolute Monocyte Count 1.05 10^3/uL (0.1-0.8)
== END 2024-06-30 10:47 | disposition home or self-care (01) ==
LOC: LBO 10:48
PROVIDERS: PCP Nurse Practitioner Family; Visit Provider Nurse Practitioner Psychiatric/Mental Health
DX: Z79.899 Other long term (current) drug therapy (principal); F20.9 Schizophrenia, unspecified
CPT/HCPCS: 36415; 85025

== ENCOUNTER 2024-07-28 12:23 | Outpatient (CLI) | payer MEDICARE, MEDICAID, SELFPAY ==
[2024-07-28 11:25] LABS: Abs Immature Grans 0.27 10^3/uL (0.0-0.06); Absolute Basophil Count 0.03 10^3/uL (0.0-0.2); Absolute Eosinophil Count 0.15 10^3/uL (0.0-0.7); Absolute Lymphocyte Count 1.29 10^3/uL (1.2-3.4); Absolute Monocyte Count 1.43 10^3/uL (0.1-0.8); Basophils % 0.2 %; Eosinophils % 0.9 %; HCT 42.2 % (40.0-50.0); HGB 13.7 g/dL (13.5-17.5); Immature Grans % 1.7 %; Lymphocytes % 7.9 %; MCH 31.4 pg (27.0-33.0); MCHC 32.5 % (32.0-36.0); MCV 97 fL (80-95); MPV 10.2 fL (8.0-11.0); Monocytes % 8.8 %; Neutrophils % 80.5 %; Platelet Count 272 10^3/uL (130-400); RBC 4.37 10^6/uL (4.36-5.78); RDW 13.5 % (11.8-14.1); RDW-SD 48.2 fL; WBC 16.27 10^3/uL (4.4-10.8)
== END 2024-07-28 12:24 | disposition home or self-care (01) ==
LOC: LBO 12:25
PROVIDERS: PCP Nurse Practitioner Family; Visit Provider Nurse Practitioner Psychiatric/Mental Health
DX: Z79.899 Other long term (current) drug therapy (principal); F20.9 Schizophrenia, unspecified
CPT/HCPCS: 36415; 85025

== ENCOUNTER 2024-08-21 02:29 | Outpatient (CLI) | payer MEDICARE, MEDICAID, SELFPAY ==
[2024-08-21 09:48] LABS: Abs Immature Grans 0.13 10^3/uL (0.0-0.06); Absolute Basophil Count 0.03 10^3/uL (0.0-0.2); Absolute Eosinophil Count 0.27 10^3/uL (0.0-0.7); Absolute Lymphocyte Count 1.66 10^3/uL (1.2-3.4); Absolute Monocyte Count 1.12 10^3/uL (0.1-0.8); Absolute Neutrophil Count 5.76 10^3/uL (1.2-6.7); Basophils % 0.3 %; HCT 41.2 % (40.0-50.0); HGB 13.1 g/dL (13.5-17.5); Immature Grans % 1.4 %; Lymphocytes % 18.5 %; MCH 31.6 pg (27.0-33.0); MCHC 31.8 % (32.0-36.0); MCV 100 fL (80-95); MPV 10.2 fL (8.0-11.0); Monocytes % 12.5 %; Neutrophils % 64.3 %; Platelet Count 206 10^3/uL (130-400); RBC 4.14 10^6/uL (4.36-5.78); RDW 13.6 % (11.8-14.1); RDW-SD 50.3 fL; WBC 8.97 10^3/uL (4.4-10.8)
== END 2024-08-21 02:30 | disposition home or self-care (01) ==
PROVIDERS: PCP Nurse Practitioner Family; Visit Provider Nurse Practitioner Psychiatric/Mental Health
DX: Z79.899 Other long term (current) drug therapy (principal)
CPT/HCPCS: 36415; 85025

== ENCOUNTER 2024-08-24 21:01 | Outpatient (REF) | payer MEDICARE, MEDICAID, SELFPAY ==
[2024-08-24 20:52] LABS: COMMENT (LAB VIEW ONLY) 124.05 mg/dL
== END 2024-08-24 21:02 | disposition home or self-care (01) ==
LOC: NCHCN 21:01
PROVIDERS: PCP Nurse Practitioner Family; Visit Provider Nurse Practitioner Family
DX: E11.9 Type 2 diabetes mellitus without complications (principal)
CPT/HCPCS: 82043; 82570

== ENCOUNTER 2024-09-01 11:29 | Outpatient (CLI) | payer MEDICARE, MEDICAID, SELFPAY ==
[2024-09-01 11:36] LABS: Abs Immature Grans 0.14 10^3/uL (0.0-0.06); Absolute Monocyte Count 2.41 10^3/uL (0.1-0.8); Basophils % 0.2 %; Eosinophils % 0.9 %; HCT 42.2 % (40.0-50.0); HGB 13.9 g/dL (13.5-17.5); Immature Grans % 0.6 %; Lymphocytes % 4.7 %; MCHC 32.9 % (32.0-36.0); MCV 97 fL (80-95); Neutrophils % 83.3 %; Platelet Count 223 10^3/uL (130-400); RBC 4.35 10^6/uL (4.36-5.78); RDW 13.5 % (11.8-14.1); RDW-SD 48.2 fL; WBC 23.41 10^3/uL (4.4-10.8)
[2024-09-01 11:57] LABS: Absolute Basophil Count 0.05 10^3/uL (0.0-0.2); Absolute Eosinophil Count 0.21 10^3/uL (0.0-0.7)
[2024-09-01 11:58] LABS: Monocytes % 10.3 %
== END 2024-09-01 11:30 | disposition home or self-care (01) ==
LOC: LBO 11:30
PROVIDERS: PCP Nurse Practitioner Family; Visit Provider Nurse Practitioner Psychiatric/Mental Health
DX: Z79.899 Other long term (current) drug therapy (principal)
CPT/HCPCS: 36415; 85025

== ENCOUNTER 2024-10-05 11:21 | Outpatient (CLI) | payer MEDICARE, MEDICAID, SELFPAY ==
[2024-10-05 11:38] LABS: Abs Immature Grans 0.16 10^3/uL (0.0-0.06); Absolute Basophil Count 0.03 10^3/uL (0.0-0.2); Absolute Eosinophil Count 0.27 10^3/uL (0.0-0.7); Absolute Lymphocyte Count 1.59 10^3/uL (1.2-3.4); Absolute Monocyte Count 1.08 10^3/uL (0.1-0.8); Basophils % 0.4 %; Eosinophils % 3.2 %; HCT 40.4 % (40.0-50.0); HGB 13.3 g/dL (13.5-17.5); Immature Grans % 1.9 %; Lymphocytes % 18.6 %; MCH 31.7 pg (27.0-33.0); MCHC 32.9 % (32.0-36.0); MCV 96 fL (80-95); MPV 9.9 fL (8.0-11.0); Monocytes % 12.7 %; Neutrophils % 63.2 %; Platelet Count 242 10^3/uL (130-400); RDW 13.4 % (11.8-14.1); WBC 8.53 10^3/uL (4.4-10.8)
== END 2024-10-05 11:22 | disposition home or self-care (01) ==
LOC: LBO 11:22
PROVIDERS: PCP Nurse Practitioner Family; Visit Provider Nurse Practitioner Psychiatric/Mental Health
DX: F20.9 Schizophrenia, unspecified (principal); Z79.899 Other long term (current) drug therapy
CPT/HCPCS: 36415; 85025

== ENCOUNTER 2024-11-06 01:13 | Outpatient (CLI) | payer MEDICARE, MEDICAID, SELFPAY ==
[2024-11-06 11:44] LABS: Abs Immature Grans 0.09 10^3/uL (0.0-0.06); Absolute Basophil Count 0.03 10^3/uL (0.0-0.2); Absolute Eosinophil Count 0.17 10^3/uL (0.0-0.7); Absolute Monocyte Count 1.62 10^3/uL (0.1-0.8); Absolute Neutrophil Count 10.19 10^3/uL (1.2-6.7); Basophils % 0.2 %; Eosinophils % 1.3 %; HCT 41.5 % (40.0-50.0); HGB 13.3 g/dL (13.5-17.5); Immature Grans % 0.7 %; Lymphocytes % 8.3 %; MCH 31.8 pg (27.0-33.0); MCV 99 fL (80-95); MPV 10.4 fL (8.0-11.0); Neutrophils % 77.2 %; Platelet Count 203 10^3/uL (130-400); RBC 4.18 10^6/uL (4.36-5.78); RDW 13.1 % (11.8-14.1); RDW-SD 47.6 fL
[2024-11-06 12:02] LABS: Monocytes % 12.3 %
== END 2024-11-06 01:14 | disposition home or self-care (01) ==
PROVIDERS: PCP Nurse Practitioner Family; Visit Provider Nurse Practitioner Psychiatric/Mental Health
DX: Z79.899 Other long term (current) drug therapy (principal); F20.9 Schizophrenia, unspecified
CPT/HCPCS: 36415; 85025

== ENCOUNTER 2024-12-01 02:59 | Outpatient (CLI) | payer MEDICARE, MEDICAID, SELFPAY ==
[2024-12-01 11:13] LABS: Absolute Basophil Count 0.03 10^3/uL (0.0-0.2); Absolute Eosinophil Count 0.46 10^3/uL (0.0-0.7); Absolute Lymphocyte Count 1.37 10^3/uL (1.2-3.4); Absolute Monocyte Count 0.97 10^3/uL (0.1-0.8); Absolute Neutrophil Count 6.25 10^3/uL (1.2-6.7); Basophils % 0.3 %; HCT 45.2 % (40.0-50.0); HGB 14.3 g/dL (13.5-17.5); Immature Grans % 1.1 %; Lymphocytes % 14.9 %; MCH 31.1 pg (27.0-33.0); MCHC 31.6 % (32.0-36.0); MCV 98 fL (80-95); MPV 10.8 fL (8.0-11.0); Monocytes % 10.6 %; Neutrophils % 68.1 %; Platelet Count 211 10^3/uL (130-400); RDW 12.8 % (11.8-14.1); WBC 9.18 10^3/uL (4.4-10.8)
== END 2024-12-01 03:00 | disposition home or self-care (01) ==
PROVIDERS: PCP Nurse Practitioner Family; Visit Provider Nurse Practitioner Psychiatric/Mental Health
DX: Z79.899 Other long term (current) drug therapy (principal); F20.9 Schizophrenia, unspecified
CPT/HCPCS: 36415; 85025

== ENCOUNTER 2024-12-14 01:26 | Outpatient (CLI) | payer MEDICARE, MEDICAID, SELFPAY ==
--- NOTE | 2024-12-14 13:57 | DI.RAD_ITS ---
Exam(s) XR CHEST 2V PA LATERAL EXAM: XR CHEST 2V PA LATERAL CLINICAL HISTORY: CAP, J18.9, suspect PNA-L lung hernandez TECHNIQUE: 2D digital imaging was performed. Two views. COMPARISON: CT CT CHEST LUNG CANCER SCREEN from 12/09/2023 CR XR CHEST 2V PA LATERAL from 01/10/2024 CR XR CHEST 2V PA LATERAL from 05/06/2024 FINDINGS: HEART: Normal size. Aorta: Not dilated. PULMONARY VASCULATURE: Normal. MEDIASTINUM: Unremarkable. LUNGS: Bilateral pulmonary scarring. Patchy densities in right upper, mid and lower lung hernandez. PLEURAL SPACE: No pleural effusion or pneumothorax. BONE:Unremarkable for age. SOFT TISSUES: Unremarkable. IMPRESSION: Right-sided pulmonary infiltrates. DATA REPOSITORY: RADIATION DOSE DELIVERED:
== END 2024-12-14 01:46 ==
LOC: DI 01:26
PROVIDERS: PCP Nurse Practitioner Family; Visit Provider Family Medicine
DX: J18.9 Pneumonia, unspecified organism (principal)
CPT/HCPCS: 71046

== ENCOUNTER 2024-12-30 03:10 | Outpatient (CLI) | payer MEDICARE, MEDICAID, SELFPAY ==
[2024-12-30 09:16] LABS: Abs Immature Grans 0.19 10^3/uL (0.0-0.06); Absolute Basophil Count 0.05 10^3/uL (0.0-0.2); Absolute Eosinophil Count 0.34 10^3/uL (0.0-0.7); Absolute Lymphocyte Count 1.94 10^3/uL (1.2-3.4); Absolute Monocyte Count 0.97 10^3/uL (0.1-0.8); Absolute Neutrophil Count 6.09 10^3/uL (1.2-6.7); Basophils % 0.5 %; Eosinophils % 3.5 %; HCT 42.5 % (40.0-50.0); HGB 13.9 g/dL (13.5-17.5); Lymphocytes % 20.3 %; MCH 31.4 pg (27.0-33.0); MCHC 32.7 % (32.0-36.0); MCV 96 fL (80-95); Monocytes % 10.1 %; Neutrophils % 63.6 %; Platelet Count 310 10^3/uL (130-400); RBC 4.42 10^6/uL (4.36-5.78); RDW 12.4 % (11.8-14.1); WBC 9.58 10^3/uL (4.4-10.8)
== END 2024-12-30 03:11 | disposition home or self-care (01) ==
PROVIDERS: PCP Nurse Practitioner Family; Visit Provider Nurse Practitioner Psychiatric/Mental Health
DX: F20.9 Schizophrenia, unspecified (principal); Z79.899 Other long term (current) drug therapy
CPT/HCPCS: 36415; 85025

== ENCOUNTER 2025-01-08 19:20 | Inpatient (IN) | payer MEDICARE, MEDICAID, SELFPAY ==
[2025-01-08] VITALS (48 sets, daily range): BP systolic 116–141; BP diastolic 71–88; PULSE 78–97; RESP 18–29; TEMP 36.8–37.1; O2SAT 89–94
--- NOTE | 2025-01-08 00:08 | DI.CT_ITS ---
Exam(s) CT ABDOMEN PELVIS W EXAM: CT ABDOMEN PELVIS W CLINICAL HISTORY: nausea vomiting. TECHNIQUE: Imaging Protocol: Axial computed tomography images with coronal and sagittal reformatted images were created and reviewed CONTRAST MATERIAL: Intravenous: Omnipaque 350 Contrast volume:75 ml Oral: no COMPARISON: CT CT CHEST PE CTA from 05/03/2020 FINDINGS: ABDOMEN and PELVIS: Lung Bases: Alveolar infiltrate in left lower lobe. Chronic findings in the right lower lobe. Liver: Normal density. No suspicious mass. Gallbladder and biliary tract: No radiodense calculus. No wall thickening or pericholecystic fluid. No biliary dilation. Pancreas: Normal density. No abnormal calcifications or inflammatory process. No evidence of mass. Spleen: Normal. Kidneys: Normal size, contour and axis. No radiodense stones. No obstructive uropathy. Right renal cysts. No follow-up recommended. No suspicious masses seen. Adrenal glands: Stable bilateral prominent adrenal glands could indicate hyperplasia. Vasculature: Abdominal aorta non-dilated. Soft tissues: Tiny fat containing umbilical hernia. Bladder: Empty, unable to be evaluated. Bowel: There is fluid in the distal esophagus which may indicate reflux. The stomach is markedly dis tended and fluid filled. There is also dilatation of the duodenum and jejunum with transition point in the mid abdomen, near the level of the umbilicus. Distal small bowel loops are decompressed. The re is a large quantity of stool in the colon consistent with constipation. Large amount of stool in the rectum. No bowel wall thickening. Appendix normal. Peritoneal cavity: No ascites. No focal collection. No mesenteric inflammatory response. No free air . Bones: Unremarkable for age. Reproductive organs: Unremarkable. Lymph nodes: No pathologically enlarged lymph nodes. IMPRESSION:: Distended stomach and jejunum with transition point in the mid abdomen, consistent with obstruction. Fluid also seen in the esophagus. Left lower lobe pneumonia which could represent aspiration pneumonia. RADIATION DOSE DELIVERED: Total DLP DATA REPOSITORY: All CT scans at this facility are submitted to the National Radiology Data Registry (NRDR) Dose Index Registry (DIR) with the [employer] (A[employer]). RADIATION OPTIMIZATION: All CT scans at this facility use at least one of these dose optimization te chniques: automated exposure control; mA and/or kV adjustment per patient size (includes targeted exa ms where dose is matched to clinical indication); or iterative reconstruction.
--- NOTE | 2025-01-08 19:15 | RT.EKG_ITS ---
APPROVED REPORT Exam: Resting ECG Reason for Exam: chest pressure Patient Location: E HR:94 bpm ECG Measurements Heart Rate 94 AXIS IL 151 P 38 QRSd 118 QRS -58 QT 377 T 74 QTc 471 Conclusion Sinus rhythm 94 no stemi
[2025-01-08 20:08] LABS: BE (Venous) 6 mmol/L (-2-3); HCO3 (Venous) 31 mmol/L (23-28); O2 Sat (Venous) 51 %; TCO2 (Venous) 28 mmol/L (24-29); pCO2 (Venous) 51 mmHg (41-51); pH (Venous) 7.39 (7.31-7.41); pO2 (Venous) 28 mmHg
[2025-01-08 20:11] LABS: Abs Immature Grans 0.15 10^3/uL (0.0-0.06); Absolute Lymphocyte Count 1.21 10^3/uL (1.2-3.4); Absolute Neutrophil Count 18.04 10^3/uL (1.2-6.7); Basophils % 0.2 %; Eosinophils % 0.9 %; HGB 13.8 g/dL (13.5-17.5); Immature Grans % 0.7 %; Lymphocytes % 5.6 %; MCH 31.7 pg (27.0-33.0); MCHC 32.9 % (32.0-36.0); MCV 97 fL (80-95); MPV 9.9 fL (8.0-11.0); Monocytes % 9.4 %; Neutrophils % 83.2 %; Platelet Count 247 10^3/uL (130-400); RBC 4.35 10^6/uL (4.36-5.78); RDW 13.1 % (11.8-14.1); RDW-SD 46.6 fL; WBC 21.68 10^3/uL (4.4-10.8)
[2025-01-08 20:16] LABS: Absolute Basophil Count 0.04 10^3/uL (0.0-0.2); Absolute Monocyte Count 2.04 10^3/uL (0.1-0.8)
--- NOTE | 2025-01-08 20:21 | DI.RAD_ITS ---
Exam(s) XR PORTABLE CHEST AP EXAM: XR PORTABLE CHEST AP CLINICAL HISTORY: unwell TECHNIQUE: 2D digital imaging was performed. COMPARISON: CT CT CHEST LUNG CANCER SCREEN from 12/09/2023 CR XR CHEST 2V PA LATERAL from 01/10/2024 CR XR CHEST 2V PA LATERAL from 12/14/2024 FINDINGS: The lungs are suboptimally inflated. LUNGS: Mild left basilar atelectasis. Coarsening of interstitial markings, greater on right. No fo mayito infiltrates are visible. No pleural abnormality seen. HEART: Normal size. AORTA: Normal diameter. BONES: Unremarkable for age. Soft tissues: Unremarkable. IMPRESSION: No acute findings. DATA REPOSITORY: RADIATION DOSE DELIVERED:
[2025-01-08 20:38] LABS: ALT 20 U/L (16-63); AST 12 U/L (15-37); Albumin 3.8 g/dL (3.4-5.0); Alkaline Phosphatase 100 U/L (46-116); Anion Gap 5.8 mmol/L (3-11); BUN 23 mg/dL (7-18); Bilirubin, Total 0.4 mg/dL (0.2-1.0); CO2 30.2 mmol/L (21.0-32.0); CREATININE 1.7 mg/dL (0.70-1.30); Calcium 9.2 mg/dL (8.5-10.1); Chloride 102 mmol/L (98-107); Estimated GFR 42.57 (mL/min/1.73m2); Glucose 169 mg/dL (74-106); NT-proBNP 116 pg/mL (<300); Potassium 5.1 mmol/L (3.5-5.1); Sodium 138 mmol/L (136-145); Total Protein 7.2 g/dL (6.4-8.2); Troponin I 4 ng/L (<or=76)
--- NOTE | 2025-01-08 20:51 | DI.VRAD_ITS ---
PROCEDURE INFORMATION: Exam: XR Chest Exam date and time: 01/08/2025 8:18 PM Age: 69 years old Clinical indication: Unwell, weakness TECHNIQUE: Imaging protocol: Radiologic exam of the chest. Views: 1 view. COMPARISON: CR XR CHEST 2V PA LATERAL 12/14/2024 1:48 PM FINDINGS: Lungs: Minimal bibasilar atelectasis and/or scarring. No focal consolidation or pulmonary edema. Calcified granuloma within the periphery of the left midlung zone. Pleural spaces: Normal. Heart/Mediastinum: Normal. Vasculature: Atherosclerotic vascular disease. Bones/joints: Multilevel thoracic spine degenerative disc space narrowing. Degenerative changes of the acromioclavicular and glenohumeral joints. IMPRESSION: No acute cardiopulmonary abnormality. Dictated and Authenticated by: Vinnie Coelho MD. Orderin Lorna Laguerre MD
[2025-01-08 21:15] LABS: Lactate 1.2 mmol/L (<or=2.0)
[2025-01-08] MEDS: Ondansetron 4 MG/2 ML VIAL IVP (21:50)
[2025-01-08] MEDS: Normal Saline 500 ML IV (21:51)
[2025-01-08 21:56] LABS: Procalcitonin < 0.10 ng/mL
--- NOTE | 2025-01-08 22:13 | W.ED.GENAD ---
Discharge Plan Disposition Patient Disposition: Admit to [facility] Condition: Fair Discharge Details Chief Complaint: GenMedical Clinical Impression: Leukocytosis, Generalized weakness, DALLAS (acute kidney injury) Primary Care Provider: Columba Carter ED Provider: Pinky Rothman Home Meds and New Rx's Prescriptions: No Action ferrous gluconate 324 mg (38 mg iron) tablet 324 mg PO DAILY pioglitazone [Actos] 30 mg tablet 30 mg PO DAILY simvastatin 20 mg tablet 20 mg PO QHS bupropion HCl [Wellbutrin XL] 300 mg tablet extended release 24 hr 450 mg PO QAM Patient Comments: 450 mg daily per MAR prednisone 20 mg tablet 40 mg PO DAILY Qty: 10 0RF Rx Instructions: Take i nthe morning if possible glucosamine [id number]-[id number]-zck 500-400-167 mg tablet 1 tab PO TID Rx Instructions: give with meal/snack benazepril 5 mg tablet 5 mg PO DAILY Patient Comments: not on 04/24/24 Anoro Ellipta 62.5-25 mcg/actuation blister with device See Rx Instructions .ROUTE .COMPLEX Qty: 60 12RF Dose Instruction: INHALE 1 PUFF BY MOUTH DAILY Rx Instructions: INHALE 1 PUFF BY MOUTH DAILY calcium carbonate 200 mg calcium (500 mg) Tablet,Chewable 500 mg PO TID PRN PRNQty: 0 0RF Patient Comments: not no 04/24/24 multivitamin [Multiple Vitamins] Tablet 1 tab PO DAILY Qty: 30 0RF cyanocobalamin (vitamin B-12) [Vitamin B-12] 500 mcg Tablet 1,000 mcg PO DAILY Qty: 60 0RF pantoprazole 40 mg Tablet,Delayed Release (Dr/Ec) 40 mg PO BID@729,1999 Qty: 30 0RF docusate sodium [Colace] 100 mg Capsule 100 mg PO DAILY Qty: 30 0RF magnesium chloride [Mag 64] 64 mg Tablet,Delayed Release (Dr/Ec) 64 mg PO BID Qty: 30 0RF metformin 1,000 mg tablet 500 mg PO BID ibuprofen 200 mg Tablet 200 mg PO PRN PRN Patient Comments: not on MAR acetaminophen [Tylenol Arthritis Pain] 650 mg Tablet Extended Release 650 mg PO BID polyethylene glycol 3350 17 gram/dose powder 17 g PO DAILY PRN PRN Patient Comments: TK 17 GRAMS DISSOLVED IN LIQUID BY MOUTH ONCE DAILY Rx Instructions: PRN PER PROVIDERS MED LIST hydroxyzine pamoate [Vistaril] 25 mg capsule 25 mg PO DAILY PRN PRN Patient Comments: Take 1 capsule by mouth once a day as directed and can take an additional 1 po prn daily for anxiety lisinopril 2.5 mg tablet 2.5 mg PO DAILY pioglitazone [Actos] 30 mg tablet 30 mg PO DAILY Anoro Ellipta 62.5-25 mcg/actuation blister with device 1 inh inhalation DAILY ziprasidone HCl [Geodon] 80 mg capsule 80 mg PO BID Patient Comments: 1 tab at AM. 2 tabs at 1700 Rx Instructions: give with food (meal/snack) hydroxyzine pamoate [Vistaril] 25 mg capsule 25 mg PO ONCE folic acid 1 mg Tablet 1,000 mg PO DAILY ziprasidone HCl [Geodon] 80 MG capsule 80 - 160 mg PO DIRECTED Rx Instructions: 80mg QAM 160mg @ 5PM WITH DINNER clozapine [Clozaril] 100 mg tablet 200 - 375 mg PO DIRECTED Patient Comments: MAR states 575 mg daily Rx Instructions: 200mg QAM albuterol sulfate [Ventolin HFA] 90 mcg/actuation Hfa Aerosol Inhaler 2 puff inhalation Q4H PRN PRNQty: 18 0RF Patient Comments: not on NOV, 04/24/24 clozapine 25 mg tablet 100 mg ONCE Patient Comments: [facility] shows 575mg between Am and PM doses celecoxib 100 mg capsule 100 mg Patient Comments: 100 mg BID escitalopram oxalate 20 mg tablet 20 mg Patient Comments: daily Extreme Glorieta-3 120-180-600 mg capsule 2 cap PO Patient Comments: on NOV as Glorieta XL HPI General Date/Time Provider Initiated Documentation: 01/08/25 19:47. Limitations to Documentation: no limitations. Information obtained by: patient. HPI Narrative: 69-year-old gentleman with past medical history of COPD, CVA presents for evaluation of feeling sick. He states that he just feels sick like . He states that the symptoms started around 2:00. He says that he does not have a fever, chest pain or shortness of breath. He denies any abdominal pain. He denies that he has been having any vomiting. He reports that he just feels like really weak all over and a little bit dizzy. As he just does not feel good. Related Data Home Medications ?Medication ?Instructions ?Recorded ?Confirmed ziprasidone HCl 80 mg capsule 80 - 160 mg PO DIRECTED 06/18/17 05/22/24 (Geodon) calcium carbonate 500 mg (2.5 x 200 mg calcium (500 12/05/18 05/22/24 mg)) PO TID PRN PRN #0 tabs cyanocobalamin (vitamin B-12) 500 1,000 mcg (2 x 500 mcg) PO DAILY 01/23/19 01/08/25 mcg tablet (Vitamin B-12) #60 tabs docusate sodium 100 mg capsule 100 mg PO DAILY #30 caps 01/23/19 01/08/25 (Colace) magnesium chloride 64 mg 64 mg PO BID #30 tabs 01/23/19 01/08/25 (magnesium chloride) tablet,delayed release (Mag 64) multivitamin (Multiple Vitamins 1 tab PO DAILY #30 tabs 01/23/19 01/08/25 tablet) pantoprazole 40 mg tablet,delayed 40 mg PO BID@0730,2000 #30 tabs 01/23/19 01/08/25 release bupropion HCl 300 mg 24 hr tablet, 450 mg PO QAM 08/14/19 01/08/25 extended release (Wellbutrin XL) ferrous gluconate 324 mg (38 mg 324 mg PO DAILY 08/14/19 01/08/25 iron) tablet pioglitazone 30 mg tablet (Actos) 30 mg PO DAILY 08/14/19 05/22/24 simvastatin 20 mg tablet 20 mg PO QHS 08/14/19 01/08/25 Ventolin HFA 90 mcg/actuation 2 puff inhalation Q4H PRN PRN #18 02/07/20 05/22/24 aerosol inhaler (albuterol sulfate) grams acetaminophen 650 mg 650 mg PO BID 04/21/20 01/08/25 tablet,extended release (Tylenol Arthritis Pain) ibuprofen 200 mg tablet 200 mg PO PRN PRN 04/21/20 05/22/24 polyethylene glycol 3350 17 17 g PO DAILY PRN PRN 04/25/20 05/22/24 gram/dose oral powder hydroxyzine pamoate 25 mg capsule 25 mg PO DAILY PRN PRN 10/17/20 05/22/24 (Vistaril) lisinopril 2.5 mg tablet 2.5 mg PO DAILY 10/17/20 01/08/25 glucosamine sulfate 500 1 tab PO TID 11/23/22 01/08/25 mg-chondroitin 400 mg-msm 167 mg tablet benazepril 5 mg tablet 5 mg PO DAILY 11/25/23 05/22/24 clozapine 100 mg tablet (Clozaril) 200 - 375 mg PO DIRECTED 11/25/23 01/08/25 metformin 1,000 mg tablet 500 mg PO BID 11/25/23 01/08/25 celecoxib 100 mg capsule 100 mg 04/24/24 05/22/24 clozapine 25 mg tablet 100 mg ONCE 04/24/24 05/22/24 escitalopram oxalate 20 mg tablet 20 mg 04/24/24 05/22/24 omega 3-dha 120 mg-epa 180 mg-fish 2 cap PO 04/24/24 05/22/24 oil 600 mg capsule (Extreme Glorieta-3) prednisone 20 mg tablet 40 mg (2 x 20 mg) PO DAILY #10 tabs 05/22/24 05/22/24 umeclidinium 62.5 mcg-vilanterol See Rx Instructions .Route 06/10/24 25 mcg/actuation powdr for .COMPLEX #60 ea inhalation (Anoro Ellipta) folic acid 1 mg tablet 1,000 mg PO DAILY 01/08/25 01/08/25 hydroxyzine pamoate 25 mg capsule 25 mg PO ONCE 01/08/25 01/08/25 (Vistaril) pioglitazone 30 mg tablet (Actos) 30 mg PO DAILY 01/08/25 01/08/25 umeclidinium 62.5 mcg-vilanterol 1 inh inhalation DAILY 01/08/25 01/08/25 25 mcg/actuation powdr for inhalation (Anoro Ellipta) ziprasidone HCl 80 mg capsule 80 mg PO BID 01/08/25 01/08/25 (Geodon) Previous Rx's ?Medication ?Instructions ?Recorded calcium carbonate 500 mg (2.5 x 200 mg calcium (500 12/05/18 mg)) PO TID PRN PRN #0 tabs cyanocobalamin (vitamin B-12) 500 1,000 mcg (2 x 500 mcg) PO DAILY 01/23/19 mcg tablet (Vitamin B-12) #60 tabs docusate sodium 100 mg capsule 100 mg PO DAILY #30 caps 01/23/19 (Colace) magnesium chloride 64 mg 64 mg PO BID #30 tabs 01/23/19 (magnesium chloride) tablet,delayed release (Mag 64) multivitamin (Multiple Vitamins 1 tab PO DAILY #30 tabs 01/23/19 tablet) pantoprazole 40 mg tablet,delayed 40 mg PO BID@ #30 tabs 01/23/19 release Ventolin HFA 90 mcg/actuation 2 puff inhalation Q4H PRN PRN #18 02/07/20 aerosol inhaler (albuterol sulfate) grams prednisone 20 mg tablet 40 mg (2 x 20 mg) PO DAILY #10 tabs 05/22/24 umeclidinium 62.5 mcg-vilanterol See Rx Instructions .Route 06/10/24 25 mcg/actuation powdr for .COMPLEX #60 ea inhalation (Anoro Ellipta) Allergies Allergy/AdvReac Type Severity Reaction Status Date / Time Macrolide Antibiotics Allergy Severe Other (See Verified 01/08/25 19:24 Comment) General Stated Complaint: GenMedical KENYON: 3 Exam Narrative Exam Narrative: Review of Systems: All systems reviewed & are unremarkable except as noted in HPI and below Well-developed, no acute distress, ill-appearing NCAT Mild tachycardia Unlabored respiratory effort no hypoxia, clear bilaterally Abdomen is distended but soft nontender Extremities w/o edema Course Vital Signs Vital signs: Vital Signs Temperature 36.8 C 01/08/25 19:19 Pulse 94 H 01/08/25 19:19 Respiratory Rate 18 01/08/25 19:19 Blood Pressure 139/76 01/08/25 19:19 Pulse Oximetry 94 01/08/25 19:19 Temperature 36.8 C 01/08/25 19:19 Temperature Source Oral 01/08/25 19:19 Pulse 94 H 01/08/25 19:19 Respiratory Rate 18 01/08/25 19:19 Blood Pressure 139/76 01/08/25 19:19 Pulse Oximetry 94 01/08/25 19:19 Pain Level 0 01/08/25 19:19 Lab/Test Results Lab/Test Results: 01/08/25 20:56 Blood Blood Culture - Pending 01/08/25 21:07 Blood Blood Culture - Pending Laboratory Tests Range/Units 01/08/25 01/08/25 01/08/25 19:58 20:47 21:07 WBC (4.4-10.8) 10^3/uL 21.68 H RBC (4.36-5.78) 10^6/uL 4.35 L Hgb (13.5-17.5) g/dL 13.8 Hct (40.0-50.0) % 42.0 MCV (80-95) fL 97 H MCH (27.0-33.0) pg 31.7 MCHC (32.0-36.0) % 32.9 RDW (11.8-14.1) % 13.1 Plt Count (130-400) 10^3/uL 247 MPV (8.0-11.0) fL 9.9 Immature Gran % % 0.7 Neutrophils % % 83.2 Lymphocytes % % 5.6 Monocytes % % 9.4 Eosinophils % % 0.9 Basophils % % 0.2 Nucleated RBC % (0.0-0.3) % 0.0 Absolute Neutrophils (1.2-6.7) 10^3/uL 18.04 H Absolute Lymphocytes (1.2-3.4) 10^3/uL 1.21 Absolute Monocytes (0.1-0.8) 10^3/uL 2.04 H Absolute Eosinophils (0.0-0.7) 10^3/uL 0.20 Absolute Basophils (0.0-0.2) 10^3/uL 0.04 VBG pH (7.31-7.41) 7.39 VBG pCO2 (41-51) mmHg 51 VBG pO2 mmHg 28 VBG HCO3 (23-28) mmol/L 31 H VBG Total CO2 (24-29) mmol/L 28 VBG O2 Saturation % 51 VBG Base Excess (-2-3) mmol/L 6 H VBG Lactate (<or=2.0) mmol/L 1.2 Sodium (136-145) mmol/L 138 Potassium (3.5-5.1) mmol/L 5.1 Chloride (98-107) mmol/L 102 Carbon Dioxide (21.0-32.0) mmol/L 30.2 Anion Gap (3-11) mmol/L 5.8 BUN (7-18) mg/dL 23 H Creatinine (0.70-1.30) mg/dL 1.7 H Est GFR (CKD-EPI 2020) (mL/min/1.73m2) 42.57 Glucose (74-106) mg/dL 169 H Calcium (8.5-10.1) mg/dL 9.2 Magnesium (1.8-2.4) mg/dL 2.0 Total Bilirubin (0.2-1.0) mg/dL 0.4 AST (15-37) U/L 12 L ALT (16-63) U/L 20 Alkaline Phosphatase (46-116) U/L 100 Troponin I (<or=76) ng/L 4 Cancelled NT-Pro-B Natriuret Pep (<300) pg/mL 116 Total Protein (6.4-8.2) g/dL 7.2 Albumin (3.4-5.0) g/dL 3.8 Procalcitonin ng/mL < 0.10 Range/Units 01/08/25 22:47 WBC (4.4-10.8) 10^3/uL RBC (4.36-5.78) 10^6/uL Hgb (13.5-17.5) g/dL Hct (40.0-50.0) % MCV (80-95) fL MCH (27.0-33.0) pg MCHC (32.0-36.0) % RDW (11.8-14.1) % Plt Count (130-400) 10^3/uL MPV (8.0-11.0) fL Immature Gran % % Neutrophils % % Lymphocytes % % Monocytes % % Eosinophils % % Basophils % % Nucleated RBC % (0.0-0.3) % Absolute Neutrophils (1.2-6.7) 10^3/uL Absolute Lymphocytes (1.2-3.4) 10^3/uL Absolute Monocytes (0.1-0.8) 10^3/uL Absolute Eosinophils (0.0-0.7) 10^3/uL Absolute Basophils (0.0-0.2) 10^3/uL VBG pH (7.31-7.41) VBG pCO2 (41-51) mmHg VBG pO2 mmHg VBG HCO3 (23-28) mmol/L VBG Total CO2 (24-29) mmol/L VBG O2 Saturation % VBG Base Excess (-2-3) mmol/L VBG Lactate (<or=2.0) mmol/L Sodium (136-145) mmol/L Potassium (3.5-5.1) mmol/L Chloride (98-107) mmol/L Carbon Dioxide (21.0-32.0) mmol/L Anion Gap (3-11) mmol/L BUN (7-18) mg/dL Creatinine (0.70-1.30) mg/dL Est GFR (CKD-EPI 2020) (mL/min/1.73m2) Glucose (74-106) mg/dL Calcium (8.5-10.1) mg/dL Magnesium (1.8-2.4) mg/dL Total Bilirubin (0.2-1.0) mg/dL AST (15-37) U/L ALT (16-63) U/L Alkaline Phosphatase (46-116) U/L Troponin I (<or=76) ng/L Cancelled NT-Pro-B Natriuret Pep (<300) pg/mL Total Protein (6.4-8.2) g/dL Albumin (3.4-5.0) g/dL Procalcitonin ng/mL Medical Decision Making Emergent evaluation of sick feeling. Initial differential includes viral illness, pneumonia, patient has some mild tachycardia but no hypoxia or other significant vital sign abnormalities. His EKG was obtained and independently interpreted: Sinus 94 normal axis, no acute STEMI. He is a fairly distended abdomen but he states that this is his normal belly. He denies vomiting but there does appear to be some vomit on his close. Will start with lab work and chest x-ray. Lab work reviewed, he does have a significant leukocytosis of 21.6 with a left shift. His VBG does not indicate a respiratory failure. He does have some mild elevation in his creatinine at 1.7 slightly above baseline. IV fluids have been given for this. Troponin is not elevated, BNP is not elevated. His procalcitonin is not elevated. Given the significant elevation in his white blood cell count, this is concerning especially given his age. He has not been on steroids recently to cause such as significant leukocytosis. He is afebrile. I have added on a urinalysis and cultures in addition to viral testing to help differentiate the etiology of his leukocytosis. Cultures sent but will hold abx for now. Patient continues to be a generally poor historian. Patient is now feeling nauseated, IV antiemetic has been given and I will add on a CT of his abdomen. patient signed out to oncoming provider pending UA, CT. I have discussed with the hospitalist and given the patients significant leukocytosis and comorbidities, patient should be admitted to hospital. Quality:[facility] Health Related Social Needs: No Data to Display PFSH All Active Problems (Updated 01/08/25 @ 23:16 by Pinky Rothman MD) D[place] (acute kidney injury) (Acute) Generalized weakness (Acute) Leukocytosis (Acute) Acute exacerbation of chronic obstructive airways disease (Acute) Pulmonary nodule (Acute) Asthma-COPD overlap syndrome (Acute) Recurrent pneumonia (Acute) Pain (Chronic) Community acquired pneumonia (Acute) Pneumonia (Acute) H/O: CVA (cerebrovascular accident) (Acute) Diabetes mellitus (Chronic) HCAP (healthcare-associated pneumonia) (Acute) UTI (urinary tract infection) (Acute) Acute pyelonephritis (Acute) COPD (chronic obstructive pulmonary disease) (Chronic) Constipation, chronic (Chronic) Discharge planning issues (Acute) Schizo affective schizophrenia (Chronic) Non-insulin dependent type 2 diabetes mellitus (Chronic) Oropharyngeal dysphagia (Acute) Hypertension (Chronic) GERD (gastroesophageal reflux disease) (Chronic) DVT prophylaxis (Acute) Medical History MSSA bacteremia Sepsis Acidosis, lactic DALLAS (acute kidney injury) Adrenal hyperplasia Pulmonary emboli Acute thrombosis of right basilic vein Complication associated with peripherally inserted central catheter (PICC) Normocytic anemia H/O schizophrenia Family History Mother No problems noted. Social History Smoking/Tobacco Use Status: Former Tobacco Use Quit Date: 09/30/99 Tobacco: How many years used: 43 Smoking risk assessment performed?: Yes Alcohol Intake: former Drug use: Occasionally Substance use type: does not use Housing: assisted living facility Do you feel safe at home: Yes Do you feel safe in your relationship?: Yes Additional Social history: [facility]
[2025-01-08 22:39] LABS: COVID-19 PCR Negative (Negative); Influenza A PCR Negative (Negative); Influenza B PCR Negative (Negative); RSV PCR Negative (Negative)
[2025-01-08 22:43] LABS: Source Nasopharynx
[2025-01-09] VITALS (44 sets, daily range): BP systolic 94–153; BP diastolic 58–89; PULSE 86–110; RESP 3–28; TEMP 36–37.1; O2SAT 89–94
[2025-01-09] MEDS: Normal Saline - Diluent 50 ML VIAL IJ (00:07)
[2025-01-09] MEDS: Omnipaque 350 MG/ML 100 ML BTL 75 ML IJ (00:07)
[2025-01-09 00:24] LABS: Bilirubin Moderate (Negative); Blood Negative (Negative); Clarity Clear (Clear); Glucose Negative (Negative); Ketones 15 mg/dL (Negative); Leukocyte Esterase Negative (Negative); Nitrite Negative (Negative); Specific Gravity >= 1.030 (1.005-1.025); pH 5.5 (5-8)
[2025-01-09] MEDS: Lactated Ringers 1,000 ML 100 ML IV ×2 (00:26→17:51)
[2025-01-09 00:32] LABS: Bacteria Negative HPF (Negative); C & S Indicated? No; Casts Negative LPF (Negative); Crystals Negative HPF (Negative); Epithelial Cells Negative HPF (Negative); Mucus Moderate (Negative); RBC Negative HPF (0-2); WBC Negative HPF (0-5)
--- NOTE | 2025-01-09 00:41 | DI.VRAD_ITS ---
PROCEDURE INFORMATION: Exam: CT Abdomen And Pelvis With Contrast Exam date and time: 01/08/2025 11:48 PM Age: 69 years old Clinical indication: Nausea and vomiting; Nausea, vomiting TECHNIQUE: Imaging protocol: Computed tomography of the abdomen and pelvis with contrast. Radiation optimization: All CT scans at this facility use at least one of these dose optimization techniques: automated exposure control; mA and/or kV adjustment per patient size (includes targeted exams where dose is matched to clinical indication); or iterative reconstruction. Contrast material: [id number]; Contrast volume: 75 ml; Contrast route: INTRAVENOUS (IV); COMPARISON: CT CHEST/ABD/PEL W 04/21/2020 6:32 PM FINDINGS: Lungs: Right middle lobe and lingular atelectasis and/or scarring. Moderate-sized ground-glass and consolidation within the left lower lobe, likely pneumonia. Diaphragm: Small sized hiatal hernia. Liver: Normal. Gallbladder and biliary ducts: Normal. Pancreas: Normal. Spleen: Normal. Adrenal glands: Mild bilateral adrenal hyperplasia. Kidneys and ureters: Simple right renal cysts, for which no further evaluation necessary. Stomach and bowel: Moderate gas and fluid distension of the stomach. Impression. Moderate amount of stool throughout the colon, suggesting constipation. Moderate dilation of the proximal jejunum, with gradual transition to normal caliber gas and fluid-filled loops of mid to distal small bowel, possibly enteritis versus partial obstruction. Appendix: Appendix normal. Intraperitoneal space: Unremarkable. No free air. No significant fluid collection. Vasculature: Phleboliths within the pelvis. Lymph nodes: Unremarkable. No enlarged lymph nodes. Urinary bladder: Unremarkable as visualized. Reproductive: Unremarkable as visualized. Bones/joints: Degenerative changes of the hips and sacroiliac joints. Multilevel thoracolumbar spine degenerative disc space narrowing and osteophyte formation. Soft tissues: Normal. IMPRESSION: 1. Moderate-sized ground-glass and consolidation within the left lower lobe, likely pneumonia. Recommend follow-up. 2. Moderate amount of stool throughout the colon, suggesting constipation. 3. Moderate dilation of the proximal jejunum, with gradual transition to normal caliber gas and fluid-filled loops of mid to distal small bowel, possibly enteritis versus partial obstruction. Recommend follow-up. Dictated and Authenticated by: Vinnie Coelho MD. Orderin Lorna Laguerre MD
--- NOTE | 2025-01-09 00:48 | W.EDPROG ---
Date of service: 01/09/25 Time of Service: 00:48 Medical Decision Making Patient signed out to me pending urinalysis and CT of the abdomen pelvis. Patient initially seen by Dr. Rothman see her note for details. Patient's urinalysis is negative. CT scan of his abdomen pelvis shows a left lower lobe pneumonia despite negative chest x-ray. Also has some fluid-filled small bowel but a large bowel full of stool. Possible enteritis versus partial obstruction so we will need to keep an eye on this. He is ordered for ceftriaxone and doxycycline. Blood cultures have already been sent. Discussed with hospitalist for admission for further management. Lab Data Lab results reviewed: Yes I reviewed the patient's lab results. Lab results narrative: see [facility] Discharge Plan Disposition Patient Disposition: Admit to [facility] Condition: Fair Discharge Details Clinical Impression: Pneumonia, Leukocytosis, Generalized weakness, [place] (acute kidney injury) Primary Care Provider: Columba Carter ED Provider: Esa Ochoa [facility] and New Rx's Prescriptions: No Action ferrous gluconate 324 mg (38 mg iron) tablet 324 mg PO DAILY pioglitazone [Actos] 30 mg tablet 30 mg PO DAILY simvastatin 20 mg tablet 20 mg PO QHS bupropion HCl [Wellbutrin XL] 300 mg tablet extended release 24 hr 450 mg PO QAM Patient Comments: 450 mg daily per NOV prednisone 20 mg tablet 40 mg PO DAILY Qty: 10 0RF Rx Instructions: Take i nthe morning if possible glucosamine [id number] 500-400-167 mg tablet 1 tab PO TID Rx Instructions: give with meal/snack benazepril 5 mg tablet 5 mg PO DAILY Patient Comments: not on 04/24/24 Anoro Ellipta 62.5-25 mcg/actuation blister with device See Rx Instructions .ROUTE .COMPLEX Qty: 60 12RF Dose Instruction: INHALE 1 PUFF BY MOUTH DAILY Rx Instructions: INHALE 1 PUFF BY MOUTH DAILY calcium carbonate 200 mg calcium (500 mg) Tablet,Chewable 500 mg PO TID PRN PRNQty: 0 0RF Patient Comments: not no 04/24/24 multivitamin [Multiple Vitamins] Tablet 1 tab PO DAILY Qty: 30 0RF cyanocobalamin (vitamin B-12) [Vitamin B-12] 500 mcg Tablet 1,000 mcg PO DAILY Qty: 60 0RF pantoprazole 40 mg Tablet,Delayed Release (Dr/Ec) 40 mg PO BID@0730,1999 Qty: 30 0RF docusate sodium [Colace] 100 mg Capsule 100 mg PO DAILY Qty: 30 0RF magnesium chloride [Mag 64] 64 mg Tablet,Delayed Release (Dr/Ec) 64 mg PO BID Qty: 30 0RF metformin 1,000 mg tablet 500 mg PO BID ibuprofen 200 mg Tablet 200 mg PO PRN PRN Patient Comments: not on NOV acetaminophen [Tylenol Arthritis Pain] 650 mg Tablet Extended Release 650 mg PO BID polyethylene glycol 3350 17 gram/dose powder 17 g PO DAILY PRN PRN Patient Comments: TK 17 GRAMS DISSOLVED IN LIQUID BY MOUTH ONCE DAILY Rx Instructions: PRN PER PROVIDERS MED LIST hydroxyzine pamoate [Vistaril] 25 mg capsule 25 mg PO DAILY PRN PRN Patient Comments: Take 1 capsule by mouth once a day as directed and can take an additional 1 po prn daily for anxiety lisinopril 2.5 mg tablet 2.5 mg PO DAILY pioglitazone [Actos] 30 mg tablet 30 mg PO DAILY Anoro Ellipta 62.5-25 mcg/actuation blister with device 1 inh inhalation DAILY ziprasidone HCl [Geodon] 80 mg capsule 80 mg PO BID Patient Comments: 1 tab at AM. 2 tabs at 1700 Rx Instructions: give with food (meal/snack) hydroxyzine pamoate [Vistaril] 25 mg capsule 25 mg PO ONCE folic acid 1 mg Tablet 1,000 mg PO DAILY ziprasidone HCl [Geodon] 80 MG capsule 80 - 160 mg PO DIRECTED Rx Instructions: 80mg QAM 160mg @ 5PM WITH DINNER clozapine [Clozaril] 100 mg tablet 200 - 375 mg PO DIRECTED Patient Comments: MAR states 575 mg daily Rx Instructions: 200mg QAM albuterol sulfate [Ventolin HFA] 90 mcg/actuation Hfa Aerosol Inhaler 2 puff inhalation Q4H PRN PRNQty: 18 0RF Patient Comments: not on NOV, 04/24/24 clozapine 25 mg tablet 100 mg ONCE Patient Comments: Nov shows 575mg between Am and PM doses celecoxib 100 mg capsule 100 mg Patient Comments: 100 mg BID escitalopram oxalate 20 mg tablet 20 mg Patient Comments: daily Extreme [place]-3 120-180-600 mg capsule 2 cap PO Patient Comments: on NOV as [place] XL
[2025-01-09] MEDS: cefTRIAXone 1 GM/50 ML BAG IVPB ×2 (01:08→23:39)
[2025-01-09] MEDS: DOXYCYCLINE 100 MG in Normal Saline 100 ML IVPB ×2 (01:09→12:15)
--- NOTE | 2025-01-09 01:37 | W.PM.HP.N ---
Date of service: 01/09/25 Time of Service: 01:38 Assessment and Plan Assessment and plan (1) Generalized weakness: Start date: 01/09/25 Status: Acute Assessment and plan: This is a 69-year-old gentleman with sudden onset of not feeling well having been treated for pneumonia 1 week ago with no imaging in the system to review who presented to the ED for evaluation and found to have at least a left lower lobe pneumonia but also has progressed with a small bowel obstruction. CT of the abdomen did show possible partial small bowel or gastroenteritis. Began to have emesis with coffee-ground and he has been taking NSAIDs with Celebrex chronically and possibly ibuprofen more recently. NSAIDs will be discontinued. He will be treated for his pneumonia and COPD which is slightly exacerbated with his vomiting of coffee-ground emesis. We will monitor his H&H closely for blood loss anemia patient not significant anemia on admission. He was slightly dry and is on IV hydration which will be continued. He does not appear septic. Surgery was consulted and will see the patient later in the day. He is a full code. (2) Leukocytosis: Start date: 01/09/25 Status: Acute Assessment and plan: Significant and most likely associated with pneumonia and possibly his abdominal process. There is no evidence of abscess or infection in his abdomen but a partial small bowel obstruction which now has progressed to a small bowel obstruction. Continue to trend labs. Blood cultures were obtained before initiation of antibiotics. (3) Community acquired pneumonia: Start date: 01/09/25 Status: Acute Assessment and plan: Patient will continue on Rocephin and doxycycline. Telemetry watching closely for QT prolongation with his multiple antipsychotics and. Now antiemetics (4) Small bowel obstruction: Start date: 01/09/25 Status: Acute Assessment and plan: CT of the abdomen suggested partial small bowel obstruction or gastroenteritis the patient progressing now to small bowel obstruction with hematemesis. NG tube was placed and surgical consultation was ordered with Dr. Amador called with case reviewed. (5) DALLAS (acute kidney injury): Start date: 01/09/25 Status: Acute Assessment and plan: Gentle IV hydration trending labs. Watch for fluid overload. (6) COPD (chronic obstructive pulmonary disease): Status: Chronic Assessment and plan: Increased nebulizer treatments while hospitalized. Hold on IV steroids with patient not having significant exacerbation with his pneumonia. He has been on prednisone as outpatient before. (7) Non-insulin dependent type 2 diabetes mellitus: Status: Chronic Assessment and plan: Hold oral therapy and glucometers will be done before meals and at bedtime with moderate short acting insulin sliding scale coverage (8) Schizo affective schizophrenia: Status: Chronic Assessment and plan: Continue outpatient medications. Watch for QT prolongation with antiemetics and acute treatment. (9) Hypertension: Status: Chronic Assessment and plan: Continue outpatient medications and adjust as needed for his acute process. History of Present Illness History of Present Illness Chief Complaint: Feels sick starting today. Narrative: This is a 69-year-old male patient who has long-term schizoaffective disorder on the multiple antipsychotics, type 2 diabetes on oral treatment and COPD on inhalers both control and rescue, presented to the ED with a sudden onset of not feeling well about 2 PM the day prior to admission. He was very vague with his complaints but did admit to slight dizziness and nausea without emesis until he was in the ED. He denied any fever or chest pain and had no neurological complaints. The ED provider did state that he had slight amount of old emesis on his clothing. Lab evaluation did reveal significant leukocytosis with left shift but negative procalcitonin and no evidence of sepsis. Chest x-ray was negative for pneumonia but patient stated that he was treated for pneumonia as an outpatient but no image in the system. CT of the abdomen did reveal left lower lobe consolidation consistent with pneumonia and partial small bowel obstruction. On MedSurg the patient's abdomen began to distend and he had at least 2 bouts of emesis with coffee-ground material. He felt better after his last emesis and an NG tube was placed and was draining moderate amount of coffee-ground material. Patient was more comfortable. He was initiated on IV therapy for his pneumonia in the ED. At home he was taking NSAIDs with Celebrex at least but also ibuprofen at times. He may have increased this use recently. He states he has had an episode similar to this in the past where he did require an NG tube. He denies any abdominal surgery. I did call Dr. Amador for surgical consultation and she will see the patient in the morning. He will continue on respiratory treatments with the NG tube placed and continue IV antibiotic therapy with gentle IV hydration. Celebrex and other NSAIDs will be held because of his hematemesis. He did not have significant drop in his hemoglobin upon admission but this will be trended. He is a full code. Review of Systems Narrative: 13 point review of systems otherwise unrevealing or stable. PFSH All Active Problems (Updated 01/09/25 @ 05:41 by Skyler Del Real) Small bowel obstruction (Acute) Gastroenteritis (Acute) DALLAS (acute kidney injury) (Acute) Generalized weakness (Acute) Leukocytosis (Acute) Acute exacerbation of chronic obstructive airways disease (Acute) Pulmonary nodule (Acute) Asthma-COPD overlap syndrome (Acute) Recurrent pneumonia (Acute) Pain (Chronic) Community acquired pneumonia (Acute) Pneumonia (Acute) H/O: CVA (cerebrovascular accident) (Acute) Diabetes mellitus (Chronic) HCAP (healthcare-associated pneumonia) (Acute) UTI (urinary tract infection) (Acute) Acute pyelonephritis (Acute) COPD (chronic obstructive pulmonary disease) (Chronic) Constipation, chronic (Chronic) Discharge planning issues (Acute) Schizo affective schizophrenia (Chronic) Non-insulin dependent type 2 diabetes mellitus (Chronic) Oropharyngeal dysphagia (Acute) Hypertension (Chronic) GERD (gastroesophageal reflux disease) (Chronic) DVT prophylaxis (Acute) Medical History MSSA bacteremia Sepsis Acidosis, lactic DALLAS (acute kidney injury) Adrenal hyperplasia Pulmonary emboli Acute thrombosis of right basilic vein Complication associated with peripherally inserted central catheter (PICC) Normocytic anemia H/O schizophrenia Family History Mother No problems noted. Social History Smoking/Tobacco Use Status: Former Tobacco Use Quit Date: 09/30/99 Tobacco: How many years used: 43 Smoking risk assessment performed?: Yes Alcohol Intake: former Drug use: Occasionally Substance use type: does not use Housing: assisted living facility Do you feel safe at home: Yes Do you feel safe in your relationship?: Yes Additional Social history: UTAP Meds Allergies and Home Medications Allergies Allergy/AdvReac Type Severity Reaction Status Date / Time Macrolide Antibiotics Allergy Severe Other (See Verified 01/08/25 19:24 Comment) Home Medications ?Medication ?Instructions ?Recorded ?Confirmed ?Type ziprasidone HCl 80 mg capsule 80 - 160 mg PO DIRECTED 06/18/17 05/22/24 History (Geodon) calcium carbonate 500 mg (2.5 x 200 mg calcium (500 12/05/18 05/22/24 Rx mg)) PO TID PRN PRN #0 tabs cyanocobalamin (vitamin B-12) 500 1,000 mcg (2 x 500 mcg) PO DAILY 01/23/19 01/08/25 Rx mcg tablet (Vitamin B-12) #60 tabs docusate sodium 100 mg capsule 100 mg PO DAILY #30 caps 01/23/19 01/08/25 Rx (Colace) magnesium chloride 64 mg 64 mg PO BID #30 tabs 01/23/19 01/08/25 Rx (magnesium chloride) tablet,delayed release (Mag 64) multivitamin (Multiple Vitamins 1 tab PO DAILY #30 tabs 01/23/19 01/08/25 Rx tablet) pantoprazole 40 mg tablet,delayed 40 mg PO BID@0730,2000 #30 tabs 01/23/19 01/08/25 Rx release bupropion HCl 300 mg 24 hr tablet, 450 mg PO QAM 08/14/19 01/08/25 History extended release (Wellbutrin XL) ferrous gluconate 324 mg (38 mg 324 mg PO DAILY 08/14/19 01/08/25 History iron) tablet pioglitazone 30 mg tablet (Actos) 30 mg PO DAILY 08/14/19 05/22/24 History simvastatin 20 mg tablet 20 mg PO QHS 08/14/19 01/08/25 History Ventolin HFA 90 mcg/actuation 2 puff inhalation Q4H PRN PRN #18 02/07/20 05/22/24 Rx aerosol inhaler (albuterol sulfate) grams acetaminophen 650 mg 650 mg PO BID 04/21/20 01/08/25 History tablet,extended release (Tylenol Arthritis Pain) ibuprofen 200 mg tablet 200 mg PO PRN PRN 04/21/20 05/22/24 History polyethylene glycol 3350 17 17 g PO DAILY PRN PRN 04/25/20 05/22/24 History gram/dose oral powder hydroxyzine pamoate 25 mg capsule 25 mg PO DAILY PRN PRN 10/17/20 05/22/24 History (Vistaril) lisinopril 2.5 mg tablet 2.5 mg PO DAILY 10/17/20 01/08/25 History glucosamine sulfate 500 1 tab PO TID 11/23/22 01/08/25 History mg-chondroitin 400 mg-msm 167 mg tablet benazepril 5 mg tablet 5 mg PO DAILY 11/25/23 05/22/24 History clozapine 100 mg tablet (Clozaril) 200 - 375 mg PO DIRECTED 11/25/23 01/08/25 History metformin 1,000 mg tablet 500 mg PO BID 11/25/23 01/08/25 History celecoxib 100 mg capsule 100 mg 04/24/24 05/22/24 History clozapine 25 mg tablet 100 mg ONCE 04/24/24 05/22/24 History escitalopram oxalate 20 mg tablet 20 mg 04/24/24 05/22/24 History omega 3-dha 120 mg-epa 180 mg-fish 2 cap PO 04/24/24 05/22/24 History oil 600 mg capsule (Extreme [place]-3) prednisone 20 mg tablet 40 mg (2 x 20 mg) PO DAILY #10 tabs 05/22/24 05/22/24 Rx umeclidinium 62.5 mcg-vilanterol See Rx Instructions .Route 06/10/24 Rx 25 mcg/actuation powdr for .COMPLEX #60 ea inhalation (Anoro Ellipta) folic acid 1 mg tablet 1,000 mg PO DAILY 01/08/25 01/08/25 History hydroxyzine pamoate 25 mg capsule 25 mg PO ONCE 01/08/25 01/08/25 History (Vistaril) pioglitazone 30 mg tablet (Actos) 30 mg PO DAILY 01/08/25 01/08/25 History umeclidinium 62.5 mcg-vilanterol 1 inh inhalation DAILY 01/08/25 01/08/25 History 25 mcg/actuation powdr for inhalation (Anoro Ellipta) ziprasidone HCl 80 mg capsule 80 mg PO BID 01/08/25 01/08/25 History (Geodon) Exam Narrative Exam Narrative: General: Patient appears appropriate for age, in moderate distress from his abdominal distention, alert and oriented x 3. He is moderately obese. HEENT: Normocephalic, eyes with pupils equal and reactive light symmetric, extraocular move intact and sclera anicteric. Oropharynx with dry mucosa and normal dentition. Neck: Supple without JVD. Back: Kyphotic without CVA tenderness. Lungs: Bronchovesicular breath sounds diffusely with fair aeration and coarse crackles with rhonchi throughout especially after the stress of images. No focalizing rales. Diffuse expiratory wheeze with increased expiratory phase. Heart: Irregular irregular rhythm with distant heart sounds. No appreciable murmur or gallop. Abdomen: Protuberant with tense abdomen and tympany to percussion. Bowel sounds are decreased throughout but present. Patient had no focal tenderness. No appreciated hepatosplenomegaly with difficult exam with patient distention. Genitalia/rectal: Exam deferred. Extremities: Without clubbing, cyanosis or pitting edema. Fair capillary refill. Skin: Pale, warm and dry. Neuro: Cranial nerves II through XII grossly intact, no focal motor deficits and no tremor. Psych: Flattened affect with slow, slightly dysarthric speech but no abnormal thought processes. Remote and recent memory intact. Results Imaging Imaging Studies: Exam: CT Abdomen And Pelvis With Contrast Exam date and time: 01/08/2025 11:48 PM Age: 69 years old Clinical indication: Nausea and vomiting; Nausea, vomiting TECHNIQUE: Imaging protocol: Computed tomography of the abdomen and pelvis with contrast. Radiation optimization: All CT scans at this facility use at least one of these dose optimization techniques: automated exposure control; mA and/or kV adjustment per patient size (includes targeted exams where dose is matched to clinical indication); or iterative reconstruction. Contrast material: [id number]; Contrast volume: 75 ml; Contrast route: INTRAVENOUS (IV); COMPARISON: CT CHEST/ABD/PEL W 04/21/2020 6:32 PM FINDINGS: Lungs: Right middle lobe and lingular atelectasis and/or scarring. Moderate-sized ground-glass and consolidation within the left lower lobe, likely pneumonia. Diaphragm: Small sized hiatal hernia. Liver: Normal. Gallbladder and biliary ducts: Normal. Pancreas: Normal. Spleen: Normal. Adrenal glands: Mild bilateral adrenal hyperplasia. Kidneys and ureters: Simple right renal cysts, for which no further evaluation necessary. Stomach and bowel: Moderate gas and fluid distension of the stomach. Impression. Moderate amount of stool throughout the colon, suggesting constipation. Moderate dilation of the proximal jejunum, with gradual transition to normal caliber gas and fluid-filled loops of mid to distal small bowel, possibly enteritis versus partial obstruction. Appendix: Appendix normal. Intraperitoneal space: Unremarkable. No free air. No significant fluid collection. Vasculature: Phleboliths within the pelvis. Lymph nodes: Unremarkable. No enlarged lymph nodes. Urinary bladder: Unremarkable as visualized. Reproductive: Unremarkable as visualized. Bones/joints: Degenerative changes of the hips and sacroiliac joints. Multilevel thoracolumbar spine degenerative disc space narrowing and osteophyte formation. Soft tissues: Normal. IMPRESSION: 1. Moderate-sized ground-glass and consolidation within the left lower lobe, likely pneumonia. Recommend follow-up. 2. Moderate amount of stool throughout the colon, suggesting constipation. 3. Moderate dilation of the proximal jejunum, with gradual transition to normal caliber gas and fluid-filled loops of mid to distal small bowel, possibly enteritis versus partial obstruction. Recommend follow-up. Exam: XR Chest Exam date and time: 01/08/2025 8:18 PM Age: 69 years old Clinical indication: Unwell, weakness TECHNIQUE: Imaging protocol: Radiologic exam of the chest. Views: 1 view. COMPARISON: CR XR CHEST 2V PA LATERAL 12/14/2024 1:48 PM FINDINGS: Lungs: Minimal bibasilar atelectasis and/or scarring. No focal consolidation or pulmonary edema. Calcified granuloma within the periphery of the left midlung zone. Pleural spaces: Normal. Heart/Mediastinum: Normal. Vasculature: Atherosclerotic vascular disease. Bones/joints: Multilevel thoracic spine degenerative disc space narrowing. Degenerative changes of the acromioclavicular and glenohumeral joints. IMPRESSION: No acute cardiopulmonary abnormality. Labs 01/08/25 19:58 01/08/25 19:58 Labs: Laboratory Results - last 24 hr 01/08/25 01/08/25 01/08/25 19:58 20:47 21:07 WBC 21.68 H RBC 4.35 L Hgb 13.8 Hct 42.0 MCV 97 H MCH 31.7 MCHC 32.9 RDW 13.1 Plt Count 247 MPV 9.9 Immature Gran % 0.7 Neutrophils % 83.2 Lymphocytes % 5.6 Monocytes % 9.4 Eosinophils % 0.9 Basophils % 0.2 Nucleated RBC % 0.0 Absolute Neutrophils 18.04 H Absolute Lymphocytes 1.21 Absolute Monocytes 2.04 H Absolute Eosinophils 0.20 Absolute Basophils 0.04 VBG pH 7.39 VBG pCO2 51 VBG pO2 28 VBG HCO3 31 H VBG Total CO2 28 VBG O2 Saturation 51 VBG Base Excess 6 H VBG Lactate 1.2 Sodium 138 Potassium 5.1 Chloride 102 Carbon Dioxide 30.2 Anion Gap 5.8 BUN 23 H Creatinine 1.7 H Est GFR (CKD-EPI 2020) 42.57 Glucose 169 H Calcium 9.2 Magnesium 2.0 Total Bilirubin 0.4 AST 12 L ALT 20 Alkaline Phosphatase 100 Troponin I 4 Cancelled NT-Pro-B Natriuret Pep 116 Total Protein 7.2 Albumin 3.8 Procalcitonin < 0.10 Urine Color Urine Clarity Urine pH Ur Specific [place] Urine Protein Urine Ketones Urine Blood Urine Nitrite Urine Bilirubin Urine Urobilinogen Ur Leukocyte Esterase Urine RBC Urine WBC Ur Epithelial Cells Urine Crystals Urine Bacteria Urine Casts Urine Mucus Ur Culture Indicated? Urine Glucose COVID-19 Source SARS-CoV-2 (PCR) Influenza Type A (PCR) Influenza Type B (PCR) RSV (PCR) 01/08/25 01/08/25 01/08/25 21:58 22:47 23:52 WBC RBC Hgb Hct MCV MCH MCHC RDW Plt Count MPV Immature Gran % Neutrophils % Lymphocytes % Monocytes % Eosinophils % Basophils % Nucleated RBC % Absolute Neutrophils Absolute Lymphocytes Absolute Monocytes Absolute Eosinophils Absolute Basophils VBG pH VBG pCO2 VBG pO2 VBG HCO3 VBG Total CO2 VBG O2 Saturation VBG Base Excess VBG Lactate Sodium Potassium Chloride Carbon Dioxide Anion Gap BUN Creatinine Est GFR (CKD-EPI 2020) Glucose Calcium Magnesium Total Bilirubin AST ALT Alkaline Phosphatase Troponin I Cancelled NT-Pro-B Natriuret Pep Total Protein Albumin Procalcitonin Urine Color Yellow Urine Clarity Clear Urine pH 5.5 Ur Specific [place] >= 1.030 H Urine Protein 100 H Urine Ketones 15 H Urine Blood Negative Urine Nitrite Negative Urine Bilirubin Moderate H Urine Urobilinogen 1.0 H Ur Leukocyte Esterase Negative Urine RBC Negative Urine WBC Negative Ur Epithelial Cells Negative Urine Crystals Negative Urine Bacteria Negative Urine Casts Negative Urine Mucus Moderate Ur Culture Indicated? No Urine Glucose Negative COVID-19 Source Nasopharynx SARS-CoV-2 (PCR) Negative Influenza Type A (PCR) Negative Influenza Type B (PCR) Negative RSV (PCR) Negative Last Vital Signs Temp 37.1 C 01/08/25 22:55 Pulse 100 H 01/09/25 01:25 Resp 27 H 01/09/25 01:25 BP 135/65 01/09/25 01:16 Pulse Ox 91 L 01/09/25 01:25 Time Spent Time spent with Patient: >75 minutes Time was spent: preparing to see the patient(eg.review tests), obtaining and/or reviewing separately otained hiistory, ordering medications,tests, procedures, referring, communicating with other health long term care pharmacist, indepentently interpreting results and care coordination
--- NOTE | 2025-01-09 03:47 | NUR.NOTE ---
Nursing Note: during the pt ED stay no active vomiting, just c/o nausea and feeling sick. During the ride in the elevator to [place] the pt vomited small amount of coffee ground emesis, upon reaching the unit it was tested for blood and it was positive. This nurse stated that this was the first time he had any thing from his mouth and that this was the first of him vomiting. The pt states my belly is like this when asked if it is normally that large and taught. the pt also stated he had a BM yesterday.Then stated his belly feels sick
[2025-01-09] MEDS: Ondansetron 4 MG/2 ML VIAL IVP ×2 (04:14→18:21)
[2025-01-09] MEDS: Pantoprazole 40 MG VIAL IVP ×2 (04:14→20:27)
--- NOTE | 2025-01-09 04:34 | W.PC.ACHO ---
Registration Status: Primary Language: Preferred Language: ED Information & Data Chief Complaint GenMedical 01/08/25 22:16 Triage Note PT has had general weakness 01/08/25 19:19 that started at 1400. PT has recent DX of pneumonia. Medical / Surgical History (Last Reviewed 01/09/25 @ 01:38 by Skyler Del Real) MSSA bacteremia Sepsis Acidosis, lactic DALLAS (acute kidney injury) Adrenal hyperplasia Pulmonary emboli Acute thrombosis of right basilic vein Complication associated with peripherally inserted central catheter (PICC) Normocytic anemia H/O schizophrenia Most Recent Vital Signs Temperature 36.3 C L 01/09/25 03:46 Temperature Source Temporal Artery Scan 01/08/25 22:55 Pulse 104 H 01/09/25 03:46 Respiratory Rate 17 01/09/25 03:46 Respiratory Effort Short of Breath 01/08/25 22:55 Respiratory Depth Deep 01/08/25 22:55 Respiratory Pattern Tachypnea 01/08/25 22:55 Blood Pressure 116/89 01/09/25 03:46 Pulse Oximetry 92 01/09/25 03:46 Oxygen Delivery Method Room Air 01/09/25 03:46 Oxygen Flow Rate 0 01/09/25 03:46 Pain Level 2 01/09/25 04:14 Allergies Macrolide Antibiotics Allergy (Severe, Verified 01/08/25 19:24) Other (See Comment) Unknown Active Medications Generic Name Dose Route Start Last Admin Trade Name Freq PRN Reason Stop Dose Admin Ringer's Solution 1,000 mls @ 100 mls/hr 01/08/25 23:45 01/09/25 00:26 IV 100 mls/hr INFUSION RUSTY Administration Ondansetron HCl 4 mg 01/09/25 03:45 01/09/25 04:14 Ondansetron 4 Mg/2 Ml Vial IVP 4 mg Q6H PRN PRN Administration IV IV Catheter Type [Right Saline Lock Antecubital] IV Catheter Gauge [Right 20 Antecubital] Diet Orders Category Date Time Status Diabetes Consistent CHO/Heart Healthy [DIET] Nutrition 01/09/25 Breakfast Active Diagnostics 01/09/25 01/08/25 01/08/25 Range/Units 05:35 23:52 22:47 WBC Pending (4.4-10.8) 10^3/uL RBC Pending (4.36-5.78) 10^6/uL Hgb Pending (13.5-17.5) g/dL Hct Pending (40.0-50.0) % MCV Pending (80-95) fL MCH Pending (27.0-33.0) pg MCHC Pending (32.0-36.0) % RDW Pending (11.8-14.1) % Plt Count Pending (130-400) 10^3/uL MPV Pending (8.0-11.0) fL Immature Gran % % Neutrophils % % Lymphocytes % % Monocytes % % Eosinophils % % Basophils % % Nucleated RBC % (0.0-0.3) % Absolute Neutrophils (1.2-6.7) 10^3/uL Absolute Lymphocytes (1.2-3.4) 10^3/uL Absolute Monocytes (0.1-0.8) 10^3/uL Absolute Eosinophils (0.0-0.7) 10^3/uL Absolute Basophils (0.0-0.2) 10^3/uL VBG pH (7.31-7.41) VBG pCO2 (41-51) mmHg VBG pO2 mmHg VBG HCO3 (23-28) mmol/L VBG Total CO2 (24-29) mmol/L VBG O2 Saturation % VBG Base Excess (-2-3) mmol/L VBG Lactate (<or=2.0) mmol/L Sodium Pending (136-145) mmol/L Potassium Pending (3.5-5.1) mmol/L Chloride Pending (98-107) mmol/L Carbon Dioxide Pending (21.0-32.0) mmol/L Anion Gap Pending (3-11) mmol/L BUN Pending (7-18) mg/dL Creatinine Pending (0.70-1.30) mg/dL Est GFR (CKD-EPI 2020) Pending (mL/min/1.73m2) Glucose Pending (74-106) mg/dL Calcium Pending (8.5-10.1) mg/dL Magnesium Pending (1.8-2.4) mg/dL Total Bilirubin Pending (0.2-1.0) mg/dL AST Pending (15-37) U/L ALT Pending (16-63) U/L Alkaline Phosphatase Pending (46-116) U/L Troponin I Cancelled (<or=76) ng/L NT-Pro-B Natriuret Pep (<300) pg/mL Total Protein Pending (6.4-8.2) g/dL Albumin Pending (3.4-5.0) g/dL Procalcitonin ng/mL Urine Color Yellow (Yellow) Urine Clarity Clear (Clear) Urine pH 5.5 (5-8) Ur Specific [place] >= 1.030 H (1.005-1.025) Urine Protein 100 H (Neg-Trace) mg/dL Urine Ketones 15 H (Negative) mg/dL Urine Blood Negative (Negative) Urine Nitrite Negative (Negative) Urine Bilirubin Moderate H (Negative) Urine Urobilinogen 1.0 H (Up to 0.2) mg/dL Ur Leukocyte Esterase Negative (Negative) Urine RBC Negative (0-2) HPF Urine WBC Negative (0-5) HPF Ur Epithelial Cells Negative (Negative) HPF Urine Crystals Negative (Negative) HPF Urine Bacteria Negative (Negative) HPF Urine Casts Negative (Negative) LPF Urine Mucus Moderate (Negative) Ur Culture Indicated? No Urine Glucose Negative (Negative) mg/dL COVID-19 Source SARS-CoV-2 (PCR) (Negative) Influenza Type A (PCR) (Negative) Influenza Type B (PCR) (Negative) RSV (PCR) (Negative) 01/08/25 01/08/25 01/08/25 Range/Units 21:58 21:07 20:47 WBC (4.4-10.8) 10^3/uL RBC (4.36-5.78) 10^6/uL Hgb (13.5-17.5) g/dL Hct (40.0-50.0) % MCV (80-95) fL MCH (27.0-33.0) pg MCHC (32.0-36.0) % RDW (11.8-14.1) % Plt Count (130-400) 10^3/uL MPV (8.0-11.0) fL Immature Gran % % Neutrophils % % Lymphocytes % % Monocytes % % Eosinophils % % Basophils % % Nucleated RBC % (0.0-0.3) % Absolute Neutrophils (1.2-6.7) 10^3/uL Absolute Lymphocytes (1.2-3.4) 10^3/uL Absolute Monocytes (0.1-0.8) 10^3/uL Absolute Eosinophils (0.0-0.7) 10^3/uL Absolute Basophils (0.0-0.2) 10^3/uL VBG pH (7.31-7.41) VBG pCO2 (41-51) mmHg VBG pO2 mmHg VBG HCO3 (23-28) mmol/L VBG Total CO2 (24-29) mmol/L VBG O2 Saturation % VBG Base Excess (-2-3) mmol/L VBG Lactate 1.2 (<or=2.0) mmol/L Sodium (136-145) mmol/L Potassium (3.5-5.1) mmol/L Chloride (98-107) mmol/L Carbon Dioxide (21.0-32.0) mmol/L Anion Gap (3-11) mmol/L BUN (7-18) mg/dL Creatinine (0.70-1.30) mg/dL Est GFR (CKD-EPI 2020) (mL/min/1.73m2) Glucose (74-106) mg/dL Calcium (8.5-10.1) mg/dL Magnesium (1.8-2.4) mg/dL Total Bilirubin (0.2-1.0) mg/dL AST (15-37) U/L ALT (16-63) U/L Alkaline Phosphatase (46-116) U/L Troponin I Cancelled (<or=76) ng/L NT-Pro-B Natriuret Pep (<300) pg/mL Total Protein (6.4-8.2) g/dL Albumin (3.4-5.0) g/dL Procalcitonin < 0.10 ng/mL Urine Color (Yellow) Urine Clarity (Clear) Urine pH (5-8) Ur Specific [place] (1.005-1.025) Urine Protein (Neg-Trace) mg/dL Urine Ketones (Negative) mg/dL Urine Blood (Negative) Urine Nitrite (Negative) Urine Bilirubin (Negative) Urine Urobilinogen (Up to 0.2) mg/dL Ur Leukocyte Esterase (Negative) Urine RBC (0-2) HPF Urine WBC (0-5) HPF Ur Epithelial Cells (Negative) HPF Urine Crystals (Negative) HPF Urine Bacteria (Negative) HPF Urine Casts (Negative) LPF Urine Mucus (Negative) Ur Culture Indicated? Urine Glucose (Negative) mg/dL COVID-19 Source Nasopharynx SARS-CoV-2 (PCR) Negative (Negative) Influenza Type A (PCR) Negative (Negative) Influenza Type B (PCR) Negative (Negative) RSV (PCR) Negative (Negative) 01/08/25 Range/Units 19:58 WBC 21.68 H (4.4-10.8) 10^3/uL RBC 4.35 L (4.36-5.78) 10^6/uL Hgb 13.8 (13.5-17.5) g/dL Hct 42.0 (40.0-50.0) % MCV 97 H (80-95) fL MCH 31.7 (27.0-33.0) pg MCHC 32.9 (32.0-36.0) % RDW 13.1 (11.8-14.1) % Plt Count 247 (130-400) 10^3/uL MPV 9.9 (8.0-11.0) fL Immature Gran % 0.7 % Neutrophils % 83.2 % Lymphocytes % 5.6 % Monocytes % 9.4 % Eosinophils % 0.9 % Basophils % 0.2 % Nucleated RBC % 0.0 (0.0-0.3) % Absolute Neutrophils 18.04 H (1.2-6.7) 10^3/uL Absolute Lymphocytes 1.21 (1.2-3.4) 10^3/uL Absolute Monocytes 2.04 H (0.1-0.8) 10^3/uL Absolute Eosinophils 0.20 (0.0-0.7) 10^3/uL Absolute Basophils 0.04 (0.0-0.2) 10^3/uL VBG pH 7.39 (7.31-7.41) VBG pCO2 51 (41-51) mmHg VBG pO2 28 mmHg VBG HCO3 31 H (23-28) mmol/L VBG Total CO2 28 (24-29) mmol/L VBG O2 Saturation 51 % VBG Base Excess 6 H (-2-3) mmol/L VBG Lactate (<or=2.0) mmol/L Sodium 138 (136-145) mmol/L Potassium 5.1 (3.5-5.1) mmol/L Chloride 102 (98-107) mmol/L Carbon Dioxide 30.2 (21.0-32.0) mmol/L Anion Gap 5.8 (3-11) mmol/L BUN 23 H (7-18) mg/dL Creatinine 1.7 H (0.70-1.30) mg/dL Est GFR (CKD-EPI 2020) 42.57 (mL/min/1.73m2) Glucose 169 H (74-106) mg/dL Calcium 9.2 (8.5-10.1) mg/dL Magnesium 2.0 (1.8-2.4) mg/dL Total Bilirubin 0.4 (0.2-1.0) mg/dL AST 12 L (15-37) U/L ALT 20 (16-63) U/L Alkaline Phosphatase 100 (46-116) U/L Troponin I 4 (<or=76) ng/L NT-Pro-B Natriuret Pep 116 (<300) pg/mL Total Protein 7.2 (6.4-8.2) g/dL Albumin 3.8 (3.4-5.0) g/dL Procalcitonin ng/mL Urine Color (Yellow) Urine Clarity (Clear) Urine pH (5-8) Ur Specific [place] (1.005-1.025) Urine Protein (Neg-Trace) mg/dL Urine Ketones (Negative) mg/dL Urine Blood (Negative) Urine Nitrite (Negative) Urine Bilirubin (Negative) Urine Urobilinogen (Up to 0.2) mg/dL Ur Leukocyte Esterase (Negative) Urine RBC (0-2) HPF Urine WBC (0-5) HPF Ur Epithelial Cells (Negative) HPF Urine Crystals (Negative) HPF Urine Bacteria (Negative) HPF Urine Casts (Negative) LPF Urine Mucus (Negative) Ur Culture Indicated? Urine Glucose (Negative) mg/dL COVID-19 Source SARS-CoV-2 (PCR) (Negative) Influenza Type A (PCR) (Negative) Influenza Type B (PCR) (Negative) RSV (PCR) (Negative) 01/08/25 20:56 Blood Culture - Pending Blood 01/08/25 21:07 Blood Culture - Pending Blood Intake and Output - 24 Hour Total 01/08/25 19:11 thru 01/09/25 02:58 Intake Total 650 Balance 650 Weight 83.1 kg Intake: IV 650 Falls Risk Assessment History of Falls No History 01/08/25 19:25 Contributing Factors No Factors 01/08/25 19:25 Ambulatory Aids Independent 01/08/25 19:25 Tubes/Lines None 01/08/25 19:25 Gait Evaluation W/no contributing factors 01/08/25 19:25 Cognition No cognitive impairment 01/08/25 19:25 Fall Total Score 10 01/08/25 19:25 Level of Risk Standard/Low Risk 01/08/25 19:25 Problems (Last Reviewed 01/09/25 @ 01:38 by Skyler Del Real) Gastroenteritis (Acute) D[place] (acute kidney injury) (Acute) Generalized weakness (Acute) Leukocytosis (Acute) Community acquired pneumonia (Acute) COPD (chronic obstructive pulmonary disease) (Chronic) Schizo affective schizophrenia (Chronic) Non-insulin dependent type 2 diabetes mellitus (Chronic) Hypertension (Chronic) Notes 01/09/25 03:47 Nursing Notes by Brett Cardoso Nursing Note: during the pt ED stay no active vomiting, just c/o nausea and feeling sick. During the ride in the elevator to [place] the pt vomited small amount of coffee ground emesis, upon reaching the unit it was tested for blood and it was positive. This nurse stated that this was the first time he had any thing from his mouth and that this was the first of him vomiting. The pt states my belly is like this when asked if it is normally that large and taught. the pt also stated he had a BM yesterday.Then stated his belly feels sick Initialized on 01/09/25 03:47 - END OF NOTE v v v v v v v v v Sending and/or Receiving Nurses: Please use comment section below to note any information pertinent to the patient hand-off not included above. Information / Comments: AAO x4 patient, but has a long standing psych history, patient treated for PNA 3 weeks ago. diagnostics done in the ER showed a LLL PNA, and questionable partial bowel obstruction. received IV doxy and IV rocephin in the ER. WBC 21.68, BUN 23/Cr 1.7. patient able to make his needs known. Report received from: received report for [facility] via telephone
[2025-01-09] MEDS: Albuterol/Ipratropium 3 ML UPD VIAL UPD ×3 (05:35→18:12)
--- NOTE | 2025-01-09 05:45 | DI.RAD_ITS ---
Exam(s) XR PORTABLE CHEST AP POST LINE EXAM: XR PORTABLE CHEST AP POST LINE CLINICAL HISTORY: confirm NG tube placement TECHNIQUE: 2D digital imaging was performed. COMPARISON: CR,XR XR PORTABLE CHEST AP from 01/09/2025 FINDINGS: A nasogastric tube again projects in the mid esophagus. LUNGS: Lungs are suboptimally inflated. Increased interstitial markings again noted bilaterally. No pleural abnormality seen. HEART: Normal size. AORTA: Normal diameter. BONES: Unremarkable for age. Soft tissues: Unremarkable. IMPRESSION: Nasogastric tube tip is in the mid esophagus. DATA REPOSITORY: RADIATION DOSE DELIVERED:
--- NOTE | 2025-01-09 05:45 | DI.RAD_ITS ---
Exam(s) XR PORTABLE CHEST AP EXAM: XR PORTABLE CHEST AP CLINICAL HISTORY: confirm NG tube placement TECHNIQUE: 2D digital imaging was performed. COMPARISON: CR,XR XR PORTABLE CHEST AP from 01/08/2025 FINDINGS: Exam is limited by overlying monitoring leads. A nasogastric tube has been inserted which projects in the mid chest. LUNGS: Lungs are suboptimally inflated. Linear atelectasis at the left lung base. No visible focal infiltrate. No pleural abnormality seen. HEART: Normal size. AORTA: Normal diameter. BONES: Unremarkable for age. Soft tissues: Right-sided vertically oriented skin fold. IMPRESSION: Nasogastric tube projects in the mid esophagus and should be advanced. DATA REPOSITORY: RADIATION DOSE DELIVERED:
--- NOTE | 2025-01-09 06:23 | DI.RAD_ITS ---
Exam(s) XR PORTABLE CHEST AP EXAM: XR PORTABLE CHEST AP CLINICAL HISTORY: NG tube replacement TECHNIQUE: 2D digital imaging was performed. COMPARISON: CR,XR XR PORTABLE CHEST AP POST LINE from 01/09/2025 FINDINGS: Is a gastric tube has been advanced in the tip now projects in the stomach. LUNGS: Lungs are poorly inflated. Chronic bilateral interstitial changes. Increased densities at th e left lung base could represent atelectasis or pneumonia. No pleural abnormality seen. HEART: Normal size. AORTA: Normal diameter. BONES: Unremarkable for age. Soft tissues: Dilated bowel loops visible in the upper abdomen. IMPRESSION: NG tube is now in satisfactory position. Increased densities left lung base, atelectasis versus pneumonia. DATA REPOSITORY: RADIATION DOSE DELIVERED:
[2025-01-09 06:39] LABS: HCT 36.8 % (40.0-50.0); HGB 11.9 g/dL (13.5-17.5); MCH 31.6 pg (27.0-33.0); MCHC 32.3 % (32.0-36.0); MCV 98 fL (80-95); MPV 10.5 fL (8.0-11.0); Platelet Count 210 10^3/uL (130-400); RBC 3.76 10^6/uL (4.36-5.78); RDW 13.1 % (11.8-14.1)
--- NOTE | 2025-01-09 06:47 | DI.VRAD_ITS ---
PROCEDURE INFORMATION: Exam: XR Chest Exam date and time: 01/09/2025 5:28 AM Age: 69 years old Clinical indication: Device placement; Confirm ng tube placement. History of COPD. TECHNIQUE: Imaging protocol: Radiologic exam of the chest. Views: 1 view. COMPARISON: CR XR PORTABLE CHEST AP 01/08/2025 8:18 PM and chest x-ray 05/06/2024. FINDINGS: Tubes, catheters and devices: Enteric tube is seen with tip extending to the region the midesophagus. Lungs: Linear atelectasis at the left lung base. There is prominence of the right mid lower lung zone pulmonary interstitium as well as mild patchy consolidation unchanged since 12/14/2024 but new since 05/06/2024 which may be related to infiltrate. Calcified granuloma in the left upper lobe is unchanged. Pleural spaces: Unremarkable. No pleural effusion. No pneumothorax. Heart/Mediastinum: Atherosclerotic disease. No cardiomegaly. Bones/joints: Age related osseous changes. Soft tissues: Skin fold seen in the lateral right thorax. IMPRESSION: Enteric tube tip at the level of the midesophagus, suggest advancing. Unchanged prominence of the pulmonary interstitium in the right lung and with associated minimal mild airspace disease which may be related to pneumonia. Dictated and Authenticated by: Janel Brown MD. Orderin Gt Holland MD
--- NOTE | 2025-01-09 06:49 | DI.VRAD_ITS ---
PROCEDURE INFORMATION: Exam: XR Chest Exam date and time: 01/09/2025 5:46 AM Age: 69 years old Clinical indication: Device placement; Confirm ng tube placement, advanced ng tube TECHNIQUE: Imaging protocol: Radiologic exam of the chest. Views: 1 view. COMPARISON: CR XR PORTABLE CHEST AP 01/09/2025 5:28 AM FINDINGS: Tip of enteric tube is at the level of the mid esophagus, not significantly changed rest of exam is unchanged. IMPRESSION: Tip of enteric tube is again seen at the level of the mid esophagus. Suggest repositioning. Dictated and Authenticated by: Janel Brown MD. Orderin Gt Holland MD
[2025-01-09 06:50] LABS: WBC 28.64 10^3/uL (4.4-10.8)
--- NOTE | 2025-01-09 06:51 | DI.VRAD_ITS ---
PROCEDURE INFORMATION: Exam: XR Chest Exam date and time: 01/09/2025 6:20 AM Age: 69 years old Clinical indication: Device placement; Ng tube replacement TECHNIQUE: Imaging protocol: Radiologic exam of the chest. Views: 1 view. COMPARISON: CR XR PORTABLE CHEST AP 01/09/2025 5:46 AM FINDINGS: Atherosclerotic disease. Enteric tube with tip in the stomach. IMPRESSION: Enteric tube in good position. Dictated and Authenticated by: Janel Brown MD. Orderin Gt Holland MD
[2025-01-09 07:03] LABS: ALT 19 U/L (16-63); AST 17 U/L (15-37); Albumin 3.1 g/dL (3.4-5.0); Alkaline Phosphatase 85 U/L (46-116); Anion Gap 9.3 mmol/L (3-11); BUN 41 mg/dL (7-18); Bilirubin, Total 0.5 mg/dL (0.2-1.0); CO2 26.7 mmol/L (21.0-32.0); CREATININE 1.7 mg/dL (0.70-1.30); Calcium 9.3 mg/dL (8.5-10.1); Chloride 104 mmol/L (98-107); Estimated GFR 42.57 (mL/min/1.73m2); Glucose 228 mg/dL (74-106); Magnesium 1.7 mg/dL (1.8-2.4); Potassium 5.4 mmol/L (3.5-5.1); Sodium 140 mmol/L (136-145); Total Protein 6.3 g/dL (6.4-8.2)
[2025-01-09] MEDS: Tiotropium/Olodaterol 10 PUFF INHALER 2 PUFF IH (08:05)
--- NOTE | 2025-01-09 09:42 | INITIAL_ITS ---
Date of service: 01/09/25 Time of Service: 09:42 Care Management Initial Assmt Initial Assessment Reason for Hospitalization: weakness, generally not feeling well- pneumonia, leukocytosis, generalized weakness, [place] Functional Status/Living Situation Patient Presentation: Koko presented to the ED last night with c/o generally not feeling well and weakness. He was found to have LLL pneumonia and a small bowel obstruction with coffee ground emesis. When CM met with Elias earlier today he was in bed with the HOB elevated. He had an NGT to wall suction. He was very pleasant. He stated that he really felt lousy and that the tube was hurting his throat when he swallows. He stated that he may need surgery. Town of Residence: [place] at [facility] Resides with: Other (resides at [facility] assisted living facility) Significant Other/Family: Local (2 sisters Sophia and Sarai) Caregiver/Guardian: Joycelyn and Janes Branch - owners of [facility] Natural Supports: staff and residents at [facility] He also has 2 sisters that he speaks with often. 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 He feels very safe and supported there. Medications Medication Management: No Issues/Barriers identified Advance Directives Advance Directives: Do you have an Advance Directive: Y 12/25/18 01:56 AD On File at [facility]: Y 12/25/18 01:56 Date Asked 12/29/18 12/20/24 11:58 AD Date Reviewed 01/09/25 01/09/25 02:20 COLST On File at [facility] No 01/08/25 19:31 COLST Date Scanned Code Status Resuscitation Status Full Code Insurance Coverage/Financial Issues Insurance: Medicare Part A & B Medicaid of [place] Care Team Visit Care Team Role Provider Type Jarrod Araya MD MD [facility] STAFF PHYSICIAN Columba Carter Primary Care Provider NURSE PRACTITIONER Kerwin LEUNGMD Other Providers [facility] STAFF PHYSICIAN Esa Ochoa MD Emergency Provider [facility] STAFF PHYSICIAN Skyler Del Real Admit Provider NON-[facility] STAFF PHYSICIAN Attending Provider Discharge Potential Discharge Needs: PT Evaluation, PCP F/U Appt and Surgical F/U Appt (gastrografin challenge) Anticipated Barriers to Discharge: None Identified Patient/Family Education Needs: Review discharge instructions, discuss Ask Me Three Plan: Anticipate that Elias will discharge back to [facility] once medically stable. His post hospitalization needs will depend on his course at [facility]. Surgery is possible for his small bowel obstruction, and he will need a PT consult. Elias will f/u with his PCP and possibly the surgeon. CM will continue to follow and to update the plan as needed. Social Determinants of Health Screening Social Determinants of health last assessed in clinic: 01/09/25 Will the Patient Participate in the Screening?: Unable to obtain Do you worry about having a steady place to live?: no Problems where you live: no known problems In the past 12 months, have you had to go without electric, gas, oil or water in your home?: choose not to answer Has lack of transportation kept you from medical appointments or from doing things needed for daily living?: choose not to answer Has anyone in your life made you feel unsafe or unsupported?: choose not to answer If for any reason you need help with day-to-day activities such as bathing, preparing meals, shopping, managing finances, etc., do you get the help you need?: I don?t need any help How often do you feel lonely or isolated from those around you?: Never Do you speak a language other than French at home?: No Does the patient want assistance with any of the above?: No Health Related Social Needs Health related social needs: material hardship(utilities) (Z59.12) [facility] All Active Problems (Updated 01/09/25 @ 05:41 by Skyler Del Real) Small bowel obstruction (Acute) Gastroenteritis (Acute) DALLAS (acute kidney injury) (Acute) Generalized weakness (Acute) Leukocytosis (Acute) Acute exacerbation of chronic obstructive airways disease (Acute) Pulmonary nodule (Acute) Asthma-COPD overlap syndrome (Acute) Recurrent pneumonia (Acute) Pain (Chronic) Community acquired pneumonia (Acute) Pneumonia (Acute) H/O: CVA (cerebrovascular accident) (Acute) Diabetes mellitus (Chronic) HCAP (healthcare-associated pneumonia) (Acute) UTI (urinary tract infection) (Acute) Acute pyelonephritis (Acute) COPD (chronic obstructive pulmonary disease) (Chronic) Constipation, chronic (Chronic) Discharge planning issues (Acute) Schizo affective schizophrenia (Chronic) Non-insulin dependent type 2 diabetes mellitus (Chronic) Oropharyngeal dysphagia (Acute) Hypertension (Chronic) GERD (gastroesophageal reflux disease) (Chronic) DVT prophylaxis (Acute) Medical History MSSA bacteremia Sepsis Acidosis, lactic DALLAS (acute kidney injury) Adrenal hyperplasia Pulmonary emboli Acute thrombosis of right basilic vein Complication associated with peripherally inserted central catheter (PICC) Normocytic anemia H/O schizophrenia Family History Mother No problems noted. Social History Smoking/Tobacco Use Status: Former Tobacco Use Quit Date: 09/30/99 Tobacco: How many years used: 43 Smoking risk assessment performed?: Yes Alcohol Intake: former Drug use: Occasionally Substance use type: does not use Housing: assisted living facility Do you feel safe at home: Yes Do you feel safe in your relationship?: Yes Additional Social history: UTAP Readmission Within the Past 30 Days Yes or No: No
--- NOTE | 2025-01-09 10:43 | W.SURGCON ---
Date of service: 01/09/25 Time of Service: 11:17 Assessment and Plan Assessment and plan (1) Small bowel obstruction: Status: Acute Assessment and plan: 69-year-old male with small bowel obstruction and left lower lobe pneumonia. Agree with management thus far. Hospitalist managing the pneumonia and his other comorbidities including schizoaffective disorder, diabetes, hypertension. Will plan for NG tube decompression throughout the day today. Patient no longer vomiting and not having any significant abdominal pain. Will arrange for a Gastrografin challenge this evening. If no contrast passes through to the colon by morning, then we will probably have to take him to the operating room for exploratory laparotomy. If he decompensates in any way between now and then, we may have to consider getting him to the OR sooner. Plan discussed with hospitalist, Dr. Araya, who is on board. In the meantime, encourage patient to be out of bed and walking in halls. NGT to lws. Oral meds can be given via NG tube with clamping of the tube for 30 minutes but absorption may be limited. History of Present Illness History of Present Illness Chief Complaint: Small bowel obstruction Narrative: Patient is a 69-year-old male who presents to the emergency room yesterday evening with complaints of dizziness and vomiting. He does have a diagnosis of schizoaffective disorder and lives in an assisted living facility. He is able to give a reasonably detailed history and the caregiver/owners of the facility are with him when I meet him. He reports that he began to not feel well a day or 2 ago. The dizziness/lightheadedness seems to be a persistent complaint. He reports that he ate breakfast yesterday but began to feel bloated after that. He did not have lunch or dinner. He started vomiting at some point in the afternoon by the sounds of it, and he was found to be hypotensive and so was brought emergency room. He reports he has not passed any flatus at least since yesterday. He has not had a bowel movement in about 3 days. Typically he has a bowel movement daily but he does admit that he has to take his omega oils to help things along. He has not had any significant abdominal pain. The caregivers report that he is somewhat bloated but typically has a big belly to begin with. In the emergency room he had a full set of labs that showed a significantly elevated white blood cell count of 21. Electrolytes were fairly normal but creatinine of 1.7. LFTs within normal limits. This morning his white blood cell count has gone up to 28 and everything else remains fairly stable. He also had a CT scan of the abdomen pelvis that showed left lower lobe consolidation concerning for pneumonia as well as significantly distended stomach and distended loops of proximal small bowel with decompressed loops in the right lower quadrant. His colon is quite full of stool as well. Findings are consistent with small bowel obstruction. Patient was admitted to the hospitalist service and started on IV antibiotics for the pneumonia. He had some further emesis overnight and NG tube was placed this morning and general surgery was consult. Review of Systems Narrative: As per [facility] All Active Problems (Updated 01/09/25 @ 05:41 by Skyler Del Real) Small bowel obstruction (Acute) Gastroenteritis (Acute) [place] (acute kidney injury) (Acute) Generalized weakness (Acute) Leukocytosis (Acute) Acute exacerbation of chronic obstructive airways disease (Acute) Pulmonary nodule (Acute) Asthma-COPD overlap syndrome (Acute) Recurrent pneumonia (Acute) Pain (Chronic) Community acquired pneumonia (Acute) Pneumonia (Acute) H/O: CVA (cerebrovascular accident) (Acute) Diabetes mellitus (Chronic) HCAP (healthcare-associated pneumonia) (Acute) UTI (urinary tract infection) (Acute) Acute pyelonephritis (Acute) COPD (chronic obstructive pulmonary disease) (Chronic) Constipation, chronic (Chronic) Discharge planning issues (Acute) Schizo affective schizophrenia (Chronic) Non-insulin dependent type 2 diabetes mellitus (Chronic) Oropharyngeal dysphagia (Acute) Hypertension (Chronic) GERD (gastroesophageal reflux disease) (Chronic) DVT prophylaxis (Acute) Medical History MSSA bacteremia Sepsis Acidosis, lactic D[place]AS (acute kidney injury) Adrenal hyperplasia Pulmonary emboli Acute thrombosis of right basilic vein Complication associated with peripherally inserted central catheter (PICC) Normocytic anemia H/O schizophrenia Family History Mother No problems noted. Social History Smoking/Tobacco Use Status: Former Tobacco Use Quit Date: 09/30/99 Tobacco: How many years used: 43 Smoking risk assessment performed?: Yes Alcohol Intake: former Drug use: Occasionally Substance use type: does not use Housing: assisted living facility Do you feel safe at home: Yes Do you feel safe in your relationship?: Yes Additional Social history: [facility] Exam Narrative Exam Narrative: General?elderly male lying in the hospital bed with head of bed elevated, NG tube in place, no apparent distress, cooperative HEENT?normocephalic, atraumatic. Mucous membranes moist. Sclera anicteric. Brownish clear liquid in NG tube. Patient is a dentulous Neck?supple, no masses Respiratory?unlabored, no use of accessory muscles, speaks in full sentences Abdomen?distended but reasonably soft, no significant pain with palpation he just reports some tenderness, no rebound tenderness, no guarding. No surgical scars. Extremities?moves all extremities Neuro?grossly intact Psych?alert and oriented to person and place, answers questions appropriately Results Last Vital Signs Temp 36.9 C 01/09/25 07:49 Pulse 105 H 01/09/25 07:49 Resp 24 01/09/25 07:49 BP 103/59 L 01/09/25 07:49 Pulse Ox 94 01/09/25 07:49 Labs 01/09/25 06:22 01/09/25 06:22 Labs: Laboratory Results - last 24 hr 01/08/25 01/08/25 01/08/25 19:58 20:47 21:07 WBC 21.68 H RBC 4.35 L Hgb 13.8 Hct 42.0 MCV 97 H MCH 31.7 MCHC 32.9 RDW 13.1 Plt Count 247 MPV 9.9 Immature Gran % 0.7 Neutrophils % 83.2 Lymphocytes % 5.6 Monocytes % 9.4 Eosinophils % 0.9 Basophils % 0.2 Nucleated RBC % 0.0 Absolute Neutrophils 18.04 H Absolute Lymphocytes 1.21 Absolute Monocytes 2.04 H Absolute Eosinophils 0.20 Absolute Basophils 0.04 VBG pH 7.39 VBG pCO2 51 VBG pO2 28 VBG HCO3 31 H VBG Total CO2 28 VBG O2 Saturation 51 VBG Base Excess 6 H VBG Lactate 1.2 Sodium 138 Potassium 5.1 Chloride 102 Carbon Dioxide 30.2 Anion Gap 5.8 BUN 23 H Creatinine 1.7 H Est GFR (CKD-EPI 2020) 42.57 Glucose 169 H Calcium 9.2 Magnesium 2.0 Total Bilirubin 0.4 AST 12 L ALT 20 Alkaline Phosphatase 100 Troponin I 4 Cancelled NT-Pro-B Natriuret Pep 116 Total Protein 7.2 Albumin 3.8 Procalcitonin < 0.10 Urine Color Urine Clarity Urine pH Ur Specific [place] Urine Protein Urine Ketones Urine Blood Urine Nitrite Urine Bilirubin Urine Urobilinogen Ur Leukocyte Esterase Urine RBC Urine WBC Ur Epithelial Cells Urine Crystals Urine Bacteria Urine Casts Urine Mucus Ur Culture Indicated? Urine Glucose COVID-19 Source SARS-CoV-2 (PCR) Influenza Type A (PCR) Influenza Type B (PCR) RSV (PCR) 01/08/25 01/08/25 01/08/25 21:58 22:47 23:52 WBC RBC Hgb Hct MCV MCH MCHC RDW Plt Count MPV Immature Gran % Neutrophils % Lymphocytes % Monocytes % Eosinophils % Basophils % Nucleated RBC % Absolute Neutrophils Absolute Lymphocytes Absolute Monocytes Absolute Eosinophils Absolute Basophils VBG pH VBG pCO2 VBG pO2 VBG HCO3 VBG Total CO2 VBG O2 Saturation VBG Base Excess VBG Lactate Sodium Potassium Chloride Carbon Dioxide Anion Gap BUN Creatinine Est GFR (CKD-EPI 2020) Glucose Calcium Magnesium Total Bilirubin AST ALT Alkaline Phosphatase Troponin I Cancelled NT-Pro-B Natriuret Pep Total Protein Albumin Procalcitonin Urine Color Yellow Urine Clarity Clear Urine pH 5.5 Ur Specific [place] >= 1.030 H Urine Protein 100 H Urine Ketones 15 H Urine Blood Negative Urine Nitrite Negative Urine Bilirubin Moderate H Urine Urobilinogen 1.0 H Ur Leukocyte Esterase Negative Urine RBC Negative Urine WBC Negative Ur Epithelial Cells Negative Urine Crystals Negative Urine Bacteria Negative Urine Casts Negative Urine Mucus Moderate Ur Culture Indicated? No Urine Glucose Negative COVID-19 Source Nasopharynx SARS-CoV-2 (PCR) Negative Influenza Type A (PCR) Negative Influenza Type B (PCR) Negative RSV (PCR) Negative 01/09/25 06:22 WBC 28.64 H* RBC 3.76 L Hgb 11.9 L Hct 36.8 L MCV 98 H MCH 31.6 MCHC 32.3 RDW 13.1 Plt Count 210 MPV 10.5 Immature Gran % Neutrophils % Lymphocytes % Monocytes % Eosinophils % Basophils % Nucleated RBC % Absolute Neutrophils Absolute Lymphocytes Absolute Monocytes Absolute Eosinophils Absolute Basophils VBG pH VBG pCO2 VBG pO2 VBG HCO3 VBG Total CO2 VBG O2 Saturation VBG Base Excess VBG Lactate Sodium 140 Potassium 5.4 H Chloride 104 Carbon Dioxide 26.7 Anion Gap 9.3 BUN 41 H Creatinine 1.7 H Est GFR (CKD-EPI 2020) 42.57 Glucose 228 H Calcium 9.3 Magnesium 1.7 L Total Bilirubin 0.5 AST 17 ALT 19 Alkaline Phosphatase 85 Troponin I NT-Pro-B Natriuret Pep Total Protein 6.3 L Albumin 3.1 L Procalcitonin Urine Color Urine Clarity Urine pH Ur Specific [place] Urine Protein Urine Ketones Urine Blood Urine Nitrite Urine Bilirubin Urine Urobilinogen Ur Leukocyte Esterase Urine RBC Urine WBC Ur Epithelial Cells Urine Crystals Urine Bacteria Urine Casts Urine Mucus Ur Culture Indicated? Urine Glucose COVID-19 Source SARS-CoV-2 (PCR) Influenza Type A (PCR) Influenza Type B (PCR) RSV (PCR)
[2025-01-09] MEDS: Insulin Aspart 300 UNITS/3 ML PEN SC (12:34)
[2025-01-09] MEDS: Chloraseptic Spray 117 ML BTL MM (13:36)
[2025-01-09] MEDS: Gastrografin 120 ML BTL PO (18:22)
--- NOTE | 2025-01-09 19:50 | DI.RAD_ITS ---
Exam(s) XR ABDOMEN FLAT PLATE EXAM: 2D digital imaging was performed. CLINICAL HISTORY: small bowel obstruction. COMPARISON: CT CT ABDOMEN PELVIS W from 01/08/2025 TECHNIQUE: Supine views of the abdomen performed. Gastrografin administered via NG tube. FINDINGS: BOWEL GAS PATTERN: NG tube in stomach. The stomach is decompressed. Administered Gastrografin is no debbie within stomach, and small-bowel to the right lower quadrant which may be near the ileocecal valve . The left sided small bowel appears dilated. The amount of dilatation is decreased when compared w ith prior CT. No definite transition point is identified. A large amount of stool is noted througho ut the colon. There is residual contrast in the bladder related to prior CT. OSSEOUS STRUCTURES: Unremarkable for age. IMPRESSION: Decreased dilatation of small bowel compared to prior CT. Oral contrast is noted to the right lower quadrant small bowel but is not yet within the colon. Further follow-up exam recommended. DATA REPOSITORY: RADIATION DOSE DELIVERED:
[2025-01-09] MEDS: Normal Saline Flush 10 ML SYR IVP (20:28)
--- NOTE | 2025-01-09 20:52 | DI.VRAD_ITS ---
PROCEDURE INFORMATION: Exam: XR Abdomen Exam date and time: 01/09/2025 7:42 PM Age: 69 years old Clinical indication: Other: Small bowel obstruction; Additional info: Small bowel obstruction. Gastrographin challenge. 1hr images post-gastrographin taken at 1940hrs. TECHNIQUE: Imaging protocol: Radiologic exam of the abdomen. Views: Frontal supine view of the abdomen. 1 View. COMPARISON: CT ABDOMEN PELVIS W 01/08/2025 11:48 PM FINDINGS: Tubes, catheters and devices: There is a NG tube noted, tip is in the stomach. Mild dilated loops of the small bowel in the upper central and left side of the abdomen may represent small bowel obstruction. After administration of oral contrast the contrast has reached distal small bowel and probably to ileocecal junction and at the cecum. There is however no significant oral contrast noted in the ascending colon. Gastrointestinal tract: See Tubes, catheters and devices finding. Bones/joints: Unremarkable. IMPRESSION: Oral contrast has reached the distal small bowel, probably to ileocecal junction and possibly to the proximal cecum. There is however no oral contrast noted in the most of the right colon. Further follow-through KUB to be performed in approximately 1 hour for further progression of the oral contrast in the large bowel. The finding may represent partial small bowel obstruction versus ileus. Dictated and Authenticated by: Alton Jerry MD. Orderin Marjorie Suresh MD
[2025-01-09] MEDS: ACETAMINOPHEN 1,000 MG/100 ML BAG 400 MG IVPB (21:18)
[2025-01-10] VITALS (20 sets, daily range): BP systolic 122–140; BP diastolic 53–76; PULSE 83–95; RESP 3–24; TEMP 36.5–37.5; O2SAT 84–92
[2025-01-10] MEDS: Albuterol/Ipratropium 3 ML UPD VIAL UPD ×5 (00:09→23:47)
[2025-01-10] MEDS: DOXYCYCLINE 100 MG in Normal Saline 100 ML IVPB ×2 (00:37→11:53)
[2025-01-10] MEDS: Lactated Ringers 1,000 ML 100 ML IV ×2 (06:27→22:48)
[2025-01-10 06:29] LABS: HCT 30.2 % (40.0-50.0); MCH 32.1 pg (27.0-33.0); MCHC 33.1 % (32.0-36.0); MCV 97 fL (80-95); MPV 10.3 fL (8.0-11.0); Platelet Count 166 10^3/uL (130-400); RBC 3.12 10^6/uL (4.36-5.78); RDW 13.2 % (11.8-14.1); RDW-SD 46.5 fL; WBC 19.82 10^3/uL (4.4-10.8)
[2025-01-10 06:59] LABS: ALT 20 U/L (16-63); AST 17 U/L (15-37); Albumin 2.8 g/dL (3.4-5.0); Alkaline Phosphatase 72 U/L (46-116); Anion Gap 7.1 mmol/L (3-11); BUN 37 mg/dL (7-18); Bilirubin, Total 0.4 mg/dL (0.2-1.0); CO2 29.9 mmol/L (21.0-32.0); Calcium 8.8 mg/dL (8.5-10.1); Chloride 107 mmol/L (98-107); Estimated GFR 80.47 (mL/min/1.73m2); Glucose 124 mg/dL (74-106); Magnesium 1.7 mg/dL (1.8-2.4); Potassium 4.3 mmol/L (3.5-5.1); Sodium 144 mmol/L (136-145); Total Protein 5.7 g/dL (6.4-8.2)
--- NOTE | 2025-01-10 06:59 | W.NUTRFU ---
Date of service: 01/10/25 Time of Service: 06:59 Nutrition Note NOTE: 69yo male pt currently npo status in regards to eating related to current status with SBO with NG tube placed. PMH significant for DMII, asthma/copd, hx of CVA, chronic constipation, schizophrenia, HTN, GERD. D[place] - GFR at 42yesterday. Metformin BID is only diabetes med at home. Ordered for glucose fingersticks q 6 hours with sensitive scale corrections with novolog. Fasting glucose 228 yesterday but fingersticks <200. last A1C was 6.8% last April and recent history shows usually <7%. Weight hx shows gain trend over the last 4 years. total protein and albumin labs low yesterday - will offer higher protein ONS as diet advances. Will monitor glucose/labs, weight, diet order status/diet toleration. If fasting glucose continues to trend at 180 or greater, would consider adding 10u insulin glargine HS. Time Spent in Nutritional Counseling and Treatment: 0
--- NOTE | 2025-01-10 07:00 | DI.RAD_ITS ---
Exam(s) XR ABDOMEN FLAT PLATE EXAM: 2D digital imaging was performed. CLINICAL HISTORY: SBO. COMPARISON: CR,XR XR ABDOMEN FLAT PLATE from 01/09/2025 TECHNIQUE: Supine views of the abdomen performed. FINDINGS: BOWEL GAS PATTERN: The administered oral contrast is now noted within distal small bowel and colon. Contrast is also noted in the appendix. Distal the colon is distended with stool, greater on the lef t side. The nasogastric tube remains in the stomach. Decrease in distention of small bowel loops. CALCIFICATIONS: No radiopaque calcifications. OSSEOUS STRUCTURES: Unremarkable for age. IMPRESSION: Contrast is noted in the colon to the level of the rectum 12 hours post administration. Decreased sm all bowel distension. DATA REPOSITORY: RADIATION DOSE DELIVERED:
[2025-01-10] MEDS: buPROPion-XL 150 MG TABCR 450 MG PO (08:10)
[2025-01-10] MEDS: Escitalopram 20 MG TAB PO (08:11)
[2025-01-10] MEDS: Pantoprazole 40 MG VIAL IVP ×2 (08:11→20:18)
[2025-01-10] MEDS: Normal Saline Flush 10 ML SYR IVP ×3 (08:12→20:19)
[2025-01-10] MEDS: Ondansetron 4 MG/2 ML VIAL IVP (08:19)
[2025-01-10] MEDS: Tiotropium/Olodaterol 10 PUFF INHALER 2 PUFF IH (08:24)
--- NOTE | 2025-01-10 08:25 | DI.VRAD_ITS ---
PROCEDURE INFORMATION: Exam: XR Abdomen Exam date and time: 01/10/2025 6:48 AM Age: 69 years old Clinical indication: Other: Sbo; Additional info: 12hr post-grastographin administration images. TECHNIQUE: Imaging protocol: Radiologic exam of the abdomen. Views: Frontal supine view of the abdomen. 1 View. COMPARISON: CR XR ABDOMEN FLAT PLATE 01/09/2025 7:42 PM FINDINGS: Tubes, catheters and devices: An enteric feeding tube is present, with its tip located in the stomach in good position.. Gastrointestinal tract: Contrast throughout the colon so this is not a complete small bowel obstruction. . Improving dilated loops of small bowel. Bones/joints: Stable appearance of the osseous structures.. IMPRESSION: 1. Contrast throughout the colon so this is not a complete small bowel obstruction. . 2. An enteric feeding tube is present, with its tip located in the stomach in good position.. 3. Improving dilated loops of small bowel. Dictated and Authenticated by: Jay Jay Young MD. Orderin Marjorie uSresh MD
[2025-01-10] MEDS: Chloraseptic Spray 117 ML BTL MM ×2 (09:24→11:24)
--- NOTE | 2025-01-10 09:41 | PT.INIE ---
PT Notes Visit Reasons: LLL Pneumonia, Gastroeneteritis, Leukocytosis Physical Therapy Inpatient Initial Evaluation Date: 01/10/2025 Referring Doctor: Kerwin Amador MD PT Orders: PT CONSULT: Eval/treat. Precautions: Fall risk due to impaired safety awareness. Standard. Activity as tolerated. Patient Profile/Admitting Diagnosis: Koko is a 69-year-old male [facility] resident who presented to the ED on 01/08/2025 with chief complaints of diziness and vomiting. Patient is admitted for management of small bowel obstruction, L LL PNA, schizoaffective disorder, DM, and hypotension. PMHX: All Active Problems Small bowel obstruction (Acute) Gastroenteritis (Acute) [place] (acute kidney injury) (Acute) Generalized weakness (Acute) Leukocytosis (Acute) Acute exacerbation of chronic obstructive airways disease (Acute) Pulmonary nodule (Acute) Asthma-COPD overlap syndrome (Acute) Recurrent pneumonia (Acute) Pain (Chronic) Community acquired pneumonia (Acute) Pneumonia (Acute) H/O: CVA (cerebrovascular accident) (Acute) Diabetes mellitus (Chronic) HCAP (healthcare-associated pneumonia) (Acute) UTI (urinary tract infection) (Acute) Acute pyelonephritis (Acute) COPD (chronic obstructive pulmonary disease) (Chronic) Constipation, chronic (Chronic) Discharge planning issues (Acute) Schizo affective schizophrenia (Chronic) Non-insulin dependent type 2 diabetes mellitus (Chronic) Oropharyngeal dysphagia (Acute) Hypertension (Chronic) GERD (gastroesophageal reflux disease) (Chronic) DVT prophylaxis (Acute) Medical History MSSA bacteremia Sepsis Acidosis, lactic [place] (acute kidney injury) Adrenal hyperplasia Pulmonary emboli Acute thrombosis of right basilic vein Complication associated with peripherally inserted central catheter (PICC) Normocytic anemia H/O schizophrenia Social History/Home Situation: Long-time resident of an [facility]. Able to navigate inside [facility] without an assistive device at [facility]. Equipment Owned/DME: FWW Subjective: Reported generalized pain but was agreeable to going for a walk in the hallway with the FWW. Reported mild fatigue towards end of the walk and wanted to sit down. [place] much better after the walk. Objective: General Observation: IV in bilateral brachial areas. Mental Status: Alert and oriented x4 Pain: None reported Vital Signs: Oxygen saturation ranged between 88-91% on room air throughout the walk ROM: Right Upper Extremity: Shoulder Flexion allows up to about 100 degrees. Shoulder abduction allows up to about 90 degrees. Elbow flexion WFL. Wrist flexion WFL. Opening and closing of hand WFL. Left Upper Extremity: Shoulder Flexion allows up to about 100 degrees. Shoulder abduction allows up to about 90 degrees. Elbow flexion WFL. Wrist flexion WFL. Opening and closing of hand WFL. Right Lower Extremity: Hip flexion allows up to about 100 degrees. Hip abduction WFL. Knee flexion WFL. Ankle dorsiflexion to neutral only. Ankle plantarflexion WFL. Left Lower Extremity: Hip flexion allows up to about 100 degrees. Hip abduction WFL. Knee flexion WFL. Ankle dorsiflexion to neutral only. Ankle plantarflexion WFL. Strength: Right Upper Extremity: Shoulder flexors 3-/5. Shoulder abductors 3-/5. Elbow flexors 4-/5. Elbow extensors 4-/5. Metabolic Specialist strong. Left Upper Extremity: Shoulder flexors 3-/5. Shoulder abductors 3-/5. Elbow flexors 4-/5. Elbow extensors 4-/5. Metabolic Specialist strong. Right Lower Extremity: Hip flexors 3-/5. Hip abductors 3-/5. Knee flexors 44/5. Knee extensors 4-/5. Ankle dorsiflexors 3-/5. Ankle plantarflexors 4/5. Left Lower Extremity: Hip flexors 3-/5. Hip abductors 3-/5. Knee flexors 44/5. Knee extensors 4-/5. Ankle dorsiflexors 3-/5. Ankle plantarflexors 4/5. Sensation: Intact as to pain and pressure on bilateral lower extremities. Bed Mobility/Transfers: Moderate cueing provided for use of B hands as needed for support, movement sequence, AD management, and posture to reduce fall risk and minimize pain report Supine to sit minimal assist Sit to stand contact guard assist with FWW Stand to sit contact guard assist with FWW Bed to chair contact guard assist with FWW Chair to bed contact guard assist with FWW Gait: Patient tolerated level surface ambulation of 100 feet +100 using front wheeled walker requiring contact-guard assist of PT and wheelchair follow and oxygen saturation monitoring by Nurse Paige. Swing through gait pattern. Reported mild short breath and minimal dizziness that dissipated with rest. Balance: Static Sitting: Normal Dynamic Sitting: Normal Static Standing: Fair Dynamic Standing: Fair Special Tests: Mobility Limitations Standardized Measure [facility]-PAC 6 clicks Basic Mobility Inpatient Short Form: Raw Score: 18 CMS Score: 47% deficit Informed Consent/Education: Patient instructed in purpose of PT consult and plan of care. Agreeable to proceed with established PT POC to achieve personal goals. Assessment: Report of generalized pain, dizziness, and shortness of breath minimally limited patient's ability to participate in today's mobility assessment/performance. Session today focused on performing PT evaluation and enuring safe movement techniques and sequences to reduce fall risk. Patient presents with clinical signs and symptoms consistent with current/admitting diagnoses that have resulted to mobility limitations, gait instability, generalized weakness, and impairment of motor control as demonstrated by the following impairment level findings: 1. Decreased strength to B UE/LE major muscle groups 2. Impaired sitting/standing balance 3. Impaired activity tolerance Impairments are contributing to the following functional limitations: 1. Dependent bed mobility skills 2. Increased dependence with transfers 3. Inability to safely ambulate without assistive device and physical assistance 4. Increase completion time for mobility ADL performance 5. Increased fall risk 6. Inability to negotiate steps alone safely Patient is assessed as a [id number] moderate complexity based on the following: History: 69 [id number] with impairment level findings, functional limitations, and past medical history as indicated above Examination: Demonstrable impairment in strength, balance, and mobility level with underlying impairments and functional limitations as documented above Presentation: Evolving Decision Makin moderate complexity Goals: Goals X1 week 1. Supine-Sit independent 2. Sit-Supine independent 3. Sit-Stand independent 4. Stand-Sit independent 5. Bed-Chair independent 6. Chair-Bed independent 7. Independent gait on level surface with use of no device for at least 300 feet without report of pain nor dyspnea 8. Independent with home exercise program 9. Good static and dynamic standing balance/tolerance Plan of Care/Treatment Plan: 1-2x/day, 7 days/week x 1 week. Plan of care has been reviewed with the MUSHROOM SORTER GRADER providing the service under Physical Therapy direction. Initiate Physical Therapy intervention for strengthening, bed mobility, transfers, gait, stairs, balance training, use of assistive device. DISCHARGE RECOMMENDATIONS: Patient will benefit from home health PT services in order to progress mobility level using least restrictive assistive ambulatory device, assess home safety, identify additional equipment needs, and establish a functional maintenance program that will increase ability of patient to remain at home. TREATMENT CODE/TIME: 56485 x 27 minutes for 1 unit (9:41-10:08). Thank you for the opportunity to participate in the care of this patient. Lesley Blanco PT, DPT, CLT [facility] [place], [place]
--- NOTE | 2025-01-10 09:59 | W.PM.PROGNOT ---
Date of Service Date of service: 01/10/25 Time of Service: 09:59 Assessment and Plan Assessment and plan (1) Small bowel obstruction: Status: Acute Assessment and plan: 69-year-old male with what appears to be a resolving small bowel obstruction. After Gastrografin challenge, abdominal x-ray shows almost all the contrast in his colon. This is reassuring. No plan for any operation this morning. - Will clamp the NG tube for a negative trial and see how he does. If he tolerates, we will likely plan NG tube later this afternoon and start clear liquid diet. - Given the stool burden on imaging in his colon, I am going to start him on twice daily MiraLAX. Patient initially reports having a bowel movement daily but was overheard having conversation with a friend who reports he only goes about once a week. - Patient can have ice chips and oral meds. - He also needs to be out of bed and ambulating 3 times daily. PT consult was ordered. (2) Constipation, chronic: Status: Chronic Assessment and plan: MiraLAX twice daily. Subjective Subjective Interval history since last seen: Patient doing okay this morning. He initially reports not feeling well in general but then was able to get up and walk around the unit with PT and seemed to feel better. He had not been out of bed at all yesterday. He denies any focal or specific abdominal pain. He does not recall passing flatus although nursing reports that he did pass flatus during the night. He has not had a bowel movement. He has not had any vomiting but has had some nausea. NG tube put out 400 mL overnight. Urine output has been a bit low but he voided 300 mL this morning. Vital signs stable. White blood cell count down to 19 this morning. Labs otherwise fairly unremarkable with creatinine down to 1.2. Gastrografin was administered and the NG tube yesterday evening. Abdominal x-ray at 9 PM showed contrast throughout the small bowel all the way to the terminal ileum. Abdominal x-ray this morning shows contrast throughout the colon. This indicates that he does not have a complete small bowel obstruction. Exam Narrative Exam Narrative: General?initially lying in bed with head of bed elevated, mildly uncomfortable. Then ambulated in halls with a walker. NG tube with some light green liquid. HEENT?mucous membranes dry, NG tube in place to left nare, sclera anicteric, normocephalic, atraumatic. Respiratory?no use of accessory muscles, speaks in full sentences, slight increased work of breathing with activity Abdomen?remains distended, but reasonably soft, tympanic to percussion in upper abdomen, nontender, no guarding, no rebound. Extremities?moves all extremities, ambulates with walker Psych?alert, oriented to person and place, mildly agitated/restless today Objective Last Vital Signs Temp 36.6 C 01/10/25 07:16 Pulse 86 01/10/25 07:16 Resp 18 01/10/25 07:16 BP 123/69 01/10/25 07:16 Pulse Ox 88 L 01/10/25 07:16 Laboratory Results - last 24 hr 01/10/25 06:21 WBC 19.82 H RBC 3.12 L Hgb 10.0 L Hct 30.2 L MCV 97 H MCH 32.1 MCHC 33.1 RDW 13.2 Plt Count 166 MPV 10.3 Sodium 144 Potassium 4.3 D Chloride 107 Carbon Dioxide 29.9 Anion Gap 7.1 BUN 37 H Creatinine 1.0 Est GFR (CKD-EPI 2020) 80.47 Glucose 124 H Calcium 8.8 Magnesium 1.7 L Total Bilirubin 0.4 AST 17 ALT 20 Alkaline Phosphatase 72 Total Protein 5.7 L Albumin 2.8 L Time Spent with Patient Time Spent with Patient: 25-34 minutes Time was spent: preparing to see the patient(eg.review tests), ordering medications,tests, procedures, referring, communicating with other health customer care voice consultant, indepentently interpreting results and counseling the patient
[2025-01-10] MEDS: Polyethylene Glycol 3350 17 GM PACKET PO ×2 (10:45→20:19)
--- NOTE | 2025-01-10 12:50 | PGE_ITS ---
Date of Service Date of service: 01/10/25 Time of Service: 12:50 Assessment and Plan Assessment and plan (1) Small bowel obstruction: Start date: 01/09/25 Status: Acute Assessment and plan: CT of the abdomen suggested partial small bowel obstruction or gastroenteritis the patient progressing now to small bowel obstruction with hematemesis. Surgery consulted, s/p gastrograffin, which is progressing to colon on this mornings XR. Expect BM soon NG tube was placed clamped today as a trial Discussed today with Dr. Amador, also started PEG for chronic constipation issues. (2) Leukocytosis: Start date: 01/09/25 Status: Acute Assessment and plan: Significant and most likely associated with pneumonia and possibly his abdominal process, recent pneumonia. Trending down again today. (3) Community acquired pneumonia: Start date: 01/09/25 Status: Acute Assessment and plan: Patient will continue on Rocephin and doxycycline. (4) DALLAS (acute kidney injury): Start date: 01/09/25 Status: Acute Assessment and plan: Gentle IV hydration, DALLAS resolved. (5) COPD (chronic obstructive pulmonary disease): Status: Chronic Assessment and plan: No significant exacerbation with his pneumonia. Continue outpatient therapy (6) Non-insulin dependent type 2 diabetes mellitus: Status: Chronic Assessment and plan: Holding oral therapy, moderate short acting insulin sliding scale coverage (7) Schizo affective schizophrenia: Status: Chronic Assessment and plan: Continue outpatient medications, clamping NGT after oral doses. Watch for QT prolongation with antiemetics and acute treatment. (8) Hypertension: Status: Chronic Assessment and plan: Continue outpatient lisinopril low dose. (9) Anemia: Status: Chronic Assessment and plan: H/H dropped with hydration, but more than expected. no clinical bleeding. On pantoprazole Follow (10) DVT prophylaxis: Status: Acute Assessment and plan: high risk, h/o PE, give enoxaparin Subjective Subjective Patient reports: voiding w/o difficulty and nausea; denies vomiting, shortness of breath or fever Interval history since last seen: 24 hr: Still doesn't feel well. Belly is uncomfotable all over, no focal/sharp pain. He did pass gas overnight. Exam Narrative Exam Narrative: alert and oriented, perseverating that I don't feel good but no acute distress lungs clear, normal effort. heart regular. abd softly distended, active bowel sounds, mild diffuse tenderness but he does not wince with deep palpation. no masses. Objective Last Vital Signs Temp 36.6 C 01/10/25 10:56 Pulse 90 01/10/25 12:24 Resp 20 01/10/25 10:56 BP 122/67 01/10/25 10:56 Pulse Ox 92 01/10/25 12:18 Laboratory Results - last 24 hr 01/10/25 06:21 WBC 19.82 H RBC 3.12 L Hgb 10.0 L Hct 30.2 L MCV 97 H MCH 32.1 MCHC 33.1 RDW 13.2 Plt Count 166 MPV 10.3 Sodium 144 Potassium 4.3 D Chloride 107 Carbon Dioxide 29.9 Anion Gap 7.1 BUN 37 H Creatinine 1.0 Est GFR (CKD-EPI 2020) 80.47 Glucose 124 H Calcium 8.8 Magnesium 1.7 L Total Bilirubin 0.4 AST 17 ALT 20 Alkaline Phosphatase 72 Total Protein 5.7 L Albumin 2.8 L Time Spent with Patient Time Spent with Patient: 35-49 minutes Time was spent: preparing to see the patient(eg.review tests), obtaining and/or reviewing separately otained hiistory, ordering medications,tests, procedures, referring, communicating with other health child care associate teacher, indepentently interpreting results, counseling the patient and care coordination
--- NOTE | 2025-01-10 14:21 | PT.INTREAT ---
PT Notes Visit Reasons: LLL Pneumonia, Gastroeneteritis, Leukocytosis Physical Therapy Inpatient treatment Note Date: 01/10/2025 Precautions: Fall risk due to impaired safety awareness. Standard. Activity as tolerated. NPO as of 01/10/2025 per Nurse Paige. NGT in place but may detach for therapy sessions. Subjective: Reported being chilly. Nurse Grecia palpated client's arm and was normothermic. Complained of being sleepy and tired after walking from room to hallway outside room 227 about 150 feet. Objective: General Observation: IV in bilateral brachial areas. Telemetry monitoring in place. Mental Status: Alert and oriented x4 Pain: None reported Vital Signs: No oxygen supp at start of session Bed Mobility/Transfers: Moderate cueing provided for use of B hands as needed for support, movement sequence, AD management, and posture to reduce fall risk and minimize pain report Supine to sit minimal assist Sit to stand contact guard assist with FWW Stand to sit contact guard assist with FWW Bed to chair contact guard assist with FWW Chair to bed contact guard assist with FWW Gait: Patient tolerated level surface ambulation of 150 feet using front wheeled walker requiring contact-guard assist of PT and wheelchair follow and oxygen saturation monitoring by Nurse Paige with oxygen saturation lowest of 82% needing O2 supp via NC on 1 L, further tanked down to 77% on RA after having been wheeled back to his room and assisted back onto bed. Reported being more drowsy. Balance: Static Sitting: Normal Dynamic Sitting: Normal Static Standing: Fair Dynamic Standing: Fair Assessment: Patient reported increased drowsiness after walking. Patient continues to require assistance with mobility ADL performance due to compromised safety.Needed more time today for seated rest to allow resaturation back to above 88% with use of oxygen supplementation. Plan of Care/Treatment Plan: 1-2x/day, 7 days/week x 1 week. Plan of care has been reviewed with the PICK AND SHOVEL WORKER providing the service under Physical Therapy direction. Initiate Physical Therapy intervention for strengthening, bed mobility, transfers, gait, stairs, balance training, use of assistive device. DISCHARGE RECOMMENDATIONS: Patient will benefit from home health PT services in order to progress mobility level using least restrictive assistive ambulatory device, assess home safety, identify additional equipment needs, and establish a functional maintenance program that will increase ability of patient to remain at home. TREATMENT CODE/TIME: 66691 x 38 minutes for 3 units (2:29-03:07).
[2025-01-10] MEDS: MAGNESIUM SULFATE 2 GM/50 ML BAG IV_INF (14:44)
[2025-01-10] MEDS: Enoxaparin 40 MG/0.4 ML SYR SC (14:47)
--- NOTE | 2025-01-10 15:37 | NUR.NOTE ---
Nursing Note: Walked pt with OT for the 2nd time today, pt desated, did not tolerate. Placed in wheelchair and brought back to room, notified RT and Hospitalist. RT placed 1.5 L via nc to keep >88%. Will discuss with hospitalist for any possible order changes.
--- NOTE | 2025-01-10 16:01 | NUR.NOTE ---
Nursing Note: Turned O2 down to 1L, O2 sat at 90%. Voided on commode. Pt is strong getting in and out of bed with minimal assist.
[2025-01-10] MEDS: Bisacodyl 10 MG SUPP PR (18:12)
[2025-01-10] MEDS: cefTRIAXone 1 GM/50 ML BAG IVPB (21:44)
[2025-01-10] MEDS: Insulin Aspart 300 UNITS/3 ML PEN SC (23:58)
[2025-01-11] VITALS (14 sets, daily range): BP systolic 116–168; BP diastolic 61–95; PULSE 81–94; RESP 3–28; TEMP 36.4–37.1; O2SAT 87–94
[2025-01-11] MEDS: Albuterol/Ipratropium 3 ML UPD VIAL UPD ×3 (05:43→17:33)
[2025-01-11 06:25] LABS: Abs Immature Grans 0.12 10^3/uL (0.0-0.06); Absolute Basophil Count 0.02 10^3/uL (0.0-0.2); Absolute Lymphocyte Count 2.07 10^3/uL (1.2-3.4); Absolute Monocyte Count 1.98 10^3/uL (0.1-0.8); Basophils % 0.1 %; Eosinophils % 1.3 %; HGB 9.5 g/dL (13.5-17.5); Immature Grans % 0.8 %; Lymphocytes % 13.4 %; MCH 32.2 pg (27.0-33.0); MCHC 32.8 % (32.0-36.0); MCV 98 fL (80-95); MPV 10.4 fL (8.0-11.0); Monocytes % 12.8 %; Neutrophils % 71.6 %; Platelet Count 155 10^3/uL (130-400); RBC 2.95 10^6/uL (4.36-5.78); RDW 13.2 % (11.8-14.1); RDW-SD 47.3 fL; WBC 15.48 10^3/uL (4.4-10.8)
[2025-01-11 06:26] LABS: Absolute Neutrophil Count 11.08 10^3/uL (1.2-6.7)
[2025-01-11 06:40] LABS: ALT 20 U/L (16-63); AST 15 U/L (15-37); Albumin 2.7 g/dL (3.4-5.0); Alkaline Phosphatase 71 U/L (46-116); Anion Gap 5.3 mmol/L (3-11); BUN 16 mg/dL (7-18); Bilirubin, Total 0.4 mg/dL (0.2-1.0); CO2 31.7 mmol/L (21.0-32.0); CREATININE 0.9 mg/dL (0.70-1.30); Calcium 8.6 mg/dL (8.5-10.1); Chloride 106 mmol/L (98-107); Estimated GFR 91.31 (mL/min/1.73m2); Glucose 107 mg/dL (74-106); Magnesium 2.1 mg/dL (1.8-2.4); Potassium 4.1 mmol/L (3.5-5.1); Sodium 143 mmol/L (136-145); Total Protein 5.7 g/dL (6.4-8.2)
--- NOTE | 2025-01-11 07:31 | NUR.NOTE ---
Nursing Note: Pt transfered from bed to bedside commode, pt noted to have wheezing heard without auscultation. PT on 2L NC, but patient breathing through mounth, pt O2 dropped to 86%, RN instructed pt to breath through nose, O2 increased to 91% on 2L. Face mask not applied due to NG tube.
[2025-01-11] MEDS: Polyethylene Glycol 3350 17 GM PACKET PO ×2 (07:38→19:48)
[2025-01-11] MEDS: Normal Saline Flush 10 ML SYR IVP ×3 (07:38→22:47)
[2025-01-11] MEDS: Pantoprazole 40 MG VIAL IVP ×2 (07:38→19:48)
[2025-01-11] MEDS: buPROPion-XL 150 MG TABCR 450 MG PO (07:38)
[2025-01-11] MEDS: Escitalopram 20 MG TAB PO (07:39)
[2025-01-11] MEDS: Tiotropium/Olodaterol 10 PUFF INHALER 2 PUFF IH (07:56)
--- NOTE | 2025-01-11 09:05 | NUR.NOTE ---
Nursing Note:Pt remained up in chair for approx 1 1/2 hours, pt requested to lay back down in bed as it is more comfortable than sitting in chair. Pt educated on importance of sitting up w/ dx and preventing further decompensation. Pt verbalized understanding but still requested to lay in bed. Pt assisted to bed by RN. MISHA RYAN
--- NOTE | 2025-01-11 09:08 | PDOC.CMIN ---
Date of service: 01/11/25 Time of Service: 09:40 Care Management Initial Assmt Initial Assessment Reason for Hospitalization: LLL pneumonia, gastroenteritis, leukocytosis Functional Status/Living Situation Patient Presentation: Elias was sitting up in his chair when CM arrived. Elias was pleasant and willing to engage in conversation. Elias shared that he is feeling better and is enjoying the company from staff. At bedside, were Elias's 2 sisters. Elias shared that he is excited to go back to [place], and is hopeful that he can get off his clear diet restrictions soon. Per Elias, he has been on clears since Saturday. CM encouraged activity, and discussed with Elias possible barriers to discharge (off O2 if RT couldn't find a qualifying diagnosis). Town of Residence: [place] Resides with: Other (Assisted Living ) Significant Other/Family: Local (2 sisters) Caregiver/Guardian: Joycelyn and Janes Branch - owners of [facility] Natural Supports: [facility] staff, and other residents along with his 2 sisters. Employment Status: Retired Instrumental Activities of Daily Living (ADLs): Requires support with Dishes/food prep, Ceramics Test Engineer, Groceries, Laundry and Transportation Activities/Hobbies/SocialSupport: Elias enjoys being outside and spending time with his friends at [place]. He enjoy's sitting in the rocking chair in the facilities family room, and greeting people. Medications Medication Management: No Issues/Barriers identified (Medications are managed by staff) Physical Functioning/Mobility Assistive Device: currently a walker Advance Directives Advance Directives: Do you have an Advance Directive: Y 12/25/18 01:56 AD On File at [facility]: Y 12/25/18 01:56 Date Asked 12/29/18 12/20/24 11:58 AD Date Reviewed 01/09/25 01/09/25 02:20 COLST On File at [facility] No 01/08/25 19:31 COLST Date Scanned Code Status Resuscitation Status Full Code Insurance Coverage/Financial Issues Insurance: [facility] Financial Issues: none identified Care Team Visit Care Team Role Provider Type Glynn Jimenez MD [facility] STAFF PHYSICIAN Columba Carter Primary Care Provider NURSE PRACTITIONER Kerwin Amador [facility] Other Providers [facility] STAFF PHYSICIAN Katherine Liao Other Providers OTHER Esa Ochoa MD Emergency Provider [facility] STAFF PHYSICIAN Skyler Del Real Admit Provider NON-[facility] STAFF PHYSICIAN Attending Provider Discharge Potential Discharge Needs: PCP F/U Appt and Surgical F/U Appt (gastrografin challenge) Anticipated Barriers to Discharge: None Identified Patient/Family Education Needs: Review discharge instructions, discuss Ask Me Three Transportation: Facility Transport (Elias will likely travel with facility transport) Plan: Anticipate that Elias will discharge back to [facility] once medically stable with new PT. His post hospitalization needs will depend on his course at [facility]. Surgery is possible for his small bowel obstruction, and he will need a PT consult. Elias will f/u with his PCP and possibly the surgeon. Elias will transport with a [facility] facility vehicle. CM will continue to follow and to update the plan as needed. Social Determinants of Health Screening Social Determinants of health last assessed in clinic: 01/11/25 Will the Patient Participate in the Screening?: Unable to obtain Do you worry about having a steady place to live?: no Problems where you live: no known problems In the past 12 months, have you had to go without electric, gas, oil or water in your home?: no 1. Within the past 12 months, we worried whether our food would run out before we got money to buy more.: Never true 2. Within the past 12 months, the food we bought just didn't last and we didn't have money to get more.: Never true Has lack of transportation kept you from medical appointments or from doing things needed for daily living?: choose not to answer Has anyone in your life made you feel unsafe or unsupported?: choose not to answer How hard is it for you to pay for the very basics like food, housing, medical care, and heating? Would you say it is:: Not hard at all Do you want help finding or keeping work or a job?: I do not need or want help If for any reason you need help with day-to-day activities such as bathing, preparing meals, shopping, managing finances, etc., do you get the help you need?: I don?t need any help How often do you feel lonely or isolated from those around you?: Never Do you speak a language other than Chilean at home?: No Does the patient want assistance with any of the above?: No PFSH All Active Problems (Updated 01/11/25 @ 12:27 by Glynn Jimenez) Hypoxic respiratory failure (Acute) Anemia (Chronic) Small bowel obstruction (Acute) Gastroenteritis (Acute) DALLAS (acute kidney injury) (Acute) Generalized weakness (Acute) Leukocytosis (Acute) Acute exacerbation of chronic obstructive airways disease (Acute) Pulmonary nodule (Acute) Asthma-COPD overlap syndrome (Acute) Recurrent pneumonia (Acute) Pain (Chronic) Community acquired pneumonia (Acute) Pneumonia (Acute) H/O: CVA (cerebrovascular accident) (Acute) Diabetes mellitus (Chronic) HCAP (healthcare-associated pneumonia) (Acute) UTI (urinary tract infection) (Acute) Acute pyelonephritis (Acute) COPD (chronic obstructive pulmonary disease) (Chronic) Constipation, chronic (Chronic) Discharge planning issues (Acute) Schizo affective schizophrenia (Chronic) Non-insulin dependent type 2 diabetes mellitus (Chronic) Oropharyngeal dysphagia (Acute) Hypertension (Chronic) GERD (gastroesophageal reflux disease) (Chronic) DVT prophylaxis (Acute) Medical History MSSA bacteremia Sepsis Acidosis, lactic DALLAS (acute kidney injury) Adrenal hyperplasia Pulmonary emboli Acute thrombosis of right basilic vein Complication associated with peripherally inserted central catheter (PICC) Normocytic anemia H/O schizophrenia Family History Mother No problems noted. Social History Smoking/Tobacco Use Status: Former Tobacco Use Quit Date: 09/30/99 Tobacco: How many years used: 43 Smoking risk assessment performed?: Yes Alcohol Intake: former Drug use: Occasionally Substance use type: does not use Housing: assisted living facility Do you feel safe at home: Yes Do you feel safe in your relationship?: Yes Additional Social history: UTAP Readmission Within the Past 30 Days Yes or No: No
--- NOTE | 2025-01-11 09:57 | PTTR_ITS ---
PT Notes Visit Reasons: LLL Pneumonia, Gastroeneteritis, Leukocytosis Physical Therapy Inpatient treatment Note Date: 01/11/2025 Precautions: Fall risk due to impaired safety awareness. Standard. Activity as tolerated. NPO as of 01/10/2025 per Nurse Grecia. NGT in place clamped. Iv infusing LUE, Oxygen in place Sats >90% (currently 2 L/min) Subjective: Pt reports he had a BM last night for the first time i 4 days and is requesting to use the bathroom. Objective: General Observation: Pt presented supine in bed with HOB at 35degrees, IV in left brachial areas. Telemetry monitoring in place. NG tube clamped Oyxgen at 2L Min Mental Status: Alert and oriented x4 able to follow instructions. Pt can be impulsive moves quickly Pain: None reported Vital Signs: SPO2 2L/min 92% , BP 146/66 HR 91 Bed Mobility/Transfers: Moderate cueing provided for use of B hands as needed for support, movement sequence, AD management, and posture to reduce fall risk and minimize pain report Supine to sit supervision Sit to stand SBA Stand to sit SBA Bed to toilet CGA without device - Dynamic stand task to manage clothing and hygiene pre post toileting with CGA Cues to perform task as pt asked this PT to perform prior to attempting on his own. Gait: -facilitated level surface ambulation of 150 feet x 1 stand rest x 1 with cues for PLB , 75 feet x 1, pushing IV pole requiring contact-guard assist of PT and wheelchair follow and oxygen saturation monitoring with oxygen saturation lowest of 89% needing O2 via NC on 2 L, at rest pt 92% when cued for PLB increased to 94%. Pt reported lightheadedness BP taken as above noted. - Facilitated safe and correct performance of level surface ambulation covering a distance of 75 feet without device with contact-guard assist then Min A x 1 to regain LOB with turn to the left and wheelchair follow for safety and oxygen tank management. Did not report of any increased pain. Minimal verbal cueing provided for directional changes, and posture. Balance: Static Sitting: Normal Dynamic Sitting: Normal Static Standing: Fair Dynamic Standing: Fair Assessment: Patient tolerated ambulation with one hand on IV pole and progression to no UE support on straight path however required increased assist with turns. Pt. requiring assist to control the speed of the IV pole. Patient continues to require assistance with mobility ADL performance due to compromised safety/impulsivity. Pt has difficulty controlling the momentum of wheeled devices therefore this may not be a safe option for him at the [facility]. Will continue to progress with ambulation without AD. Plan of Care/Treatment Plan: 1-2x/day, 7 days/week x 1 week. Plan of care has been reviewed with the SENIOR SOLUTIONS CONSULTANT providing the service under Physical Therapy direction. Initiate Physical Therapy intervention for strengthening, bed mobility, transfers, gait, stairs, balance training, use of assistive device. DISCHARGE RECOMMENDATIONS: Patient will benefit from home health PT services in order to progress mobility level using least restrictive assistive ambulatory device, assess home safety, identify additional equipment needs, and establish a functional maintenance program that will increase ability of patient to remain at home. TREATMENT CODE/TIME: 07548,97688 / [id number].
--- NOTE | 2025-01-11 10:50 | NUR.NOTE ---
Nursing Note: Facility currency is not set up to take patient with O2 needs at this time. No O2 contact and will need to rearrange pt room, Joycelyn will call back with update. MISHA RYAN
--- NOTE | 2025-01-11 11:36 | PHACLINREV_ITS ---
Pharmacy Admission Review Admission Clinical Review Admission Pharmacy Review: Small bowel obstruction (Acute) DALLAS (acute kidney injury) (Acute) Generalized weakness (Acute) Leukocytosis (Acute) Community acquired pneumonia (Acute) DVT prophylaxis (Acute) Macrolide Antibiotics Allergy (Severe, Verified 01/08/25 19:24) Other (See Comment) Resuscitation Status Full Code Height 5 ft 8 in Weight 82.1 kg Comments Comments/Follow Ups: Reach out about changing IV meds to PO if provider doesn't do this. Pharmacy Admission Review Renal Dosing Renal Dosing: BUN 16 mg/dL (7-18) 01/11/25 06:12 Creatinine 0.9 mg/dL (0.70-1.30) 01/11/25 06:12 Medications needing adjustments: Reviewed (CrCl 70.8 mL/min, BN decreased from 37) List of meds needing interventions: Current medications are okay Anticoagulation Anticoagulation: Hgb 9.5 g/dL (13.5-17.5) L 01/11/25 06:12 Hct 29.0 % (40.0-50.0) L 01/11/25 06:12 Plt Count 155 10^3/uL (130-400) 01/11/25 06:12 Creatinine 0.9 mg/dL (0.70-1.30) 01/11/25 06:12 DVT Prophylaxis: Reviewed (Hgb decreased from 10) Medications: Enoxaparin (40mg daily) Relevant Labs Relevant Labs: Sodium 143 mmol/L (136-145) 01/11/25 06:12 Potassium 4.1 mmol/L (3.5-5.1) 01/11/25 06:12 Chloride 106 mmol/L (98-107) 01/11/25 06:12 Magnesium 2.1 mg/dL (1.8-2.4) 01/11/25 06:12 Electrolytes, C-Reactive P, ESR: Reviewed DM Control DM Control: Glucose 107 mg/dL (74-106) H 01/11/25 06:12 Finger Stick Blood Glucose 192 1127 Finger Stick Blood Glucose 192 1127 Finger Stick Blood Glucose 108 0554 Finger Stick Blood Glucose 108 0552 Finger Stick Blood Glucose 108 0550 Finger Stick Blood Glucose 108 0550 DM Control: Reviewed Insulin Dosing, Diabetic Medication: Has order for SS insulin q6h - nursing asked provider during morning meeting if this could be switched to Qmeals + HS given improved diet and PO intake. Order has not been changed yet. Cardiac Review Cardiac Review: Troponin I 4 ng/L (<or=76) 01/08/25 19:58 NT-Pro-B Natriuret Pep 116 pg/mL (<300) 01/08/25 19:58 Blood Pressure 126/95 1129 Blood Pressure 116/61 0707 Blood Pressure 148/68 0306 BP, HR, EF%: Reviewed (HR WNL, oxygen flow rate 2) List meds needing interventions: Has order for lisinopril 2.5mg daily QTc Review QTc: Reviewed (471 from 01/08/25) IV to PO Switch IV Medications: Reviewed (acetaminophen, ceftriaxone, doxycycline, ondansetron and pantoprazole) Home Meds Home Med List reviewed: Intervened Relevent Home Meds Not ordered & why?: celecoxib, vitamin B12, docusate, glucosamine, hydroxyzine (PRN), metformin (on hold per H+P), omega-3, pioglitoz one (on hold per H+P), simvastatin and Anoro Ellipta (substituted with Stiolto per pharmacy protocol) Asked provider regarding celecoxib and simvastatin. Per provider holding celecoxib for now (patient doesn't need) and looking into simvastatin. Current Meds Current Medication Order Review: Intervened Comments: I changed most PO orders this AM from PO to NG. Nursing called not long after and said patients NG tube was being pulled this morning. I went back and changed them back to PO. Pharmacy Antibiotic Review Relevant Labs: WBC 15.48 10^3/uL (4.4-10.8) H 01/11/25 06:12 Procalcitonin < 0.10 ng/mL 01/08/25 21:07 Temperature 36.4 C Temperature 36.6 C Temperature 37.1 C Microbiology 01/08/25 20:56 Blood Culture - Preliminary Blood NO GROWTH 48 HOURS 01/08/25 21:07 Blood Culture - Preliminary Blood NO GROWTH 48 HOURS Pharmacy Antibiotic Activity: C/S review and Reviewed, no change Comments: Patient is on ceftriaxone and doxycycline, day 3, for pneumonia. WBC decreased from 19.82 Comments Comments/Follow Ups: Reach out about changing IV meds to PO if provider doesn't do this.
[2025-01-11] MEDS: DOXYCYCLINE 100 MG in Normal Saline 100 ML IVPB ×3 (11:58→23:18)
[2025-01-11] MEDS: Insulin Aspart 300 UNITS/3 ML PEN SC ×2 (12:02→16:51)
--- NOTE | 2025-01-11 12:11 | W.PM.PROGNOT ---
Date of Service Date of service: 01/11/25 Time of Service: 12:12 Assessment and Plan Assessment and plan (1) Small bowel obstruction: Start date: 01/09/25 Status: Acute Assessment and plan: CT of the abdomen suggested partial small bowel obstruction or gastroenteritis the patient progressing now to small bowel obstruction with hematemesis. BM overnight. NGT was displaced so it was pulled this morning. Can take clear diet, stopped IV fluids 01/11. Dr. Amador,started PEG for chronic constipation issues. Further progression of diet after re-evaluation by surgery. (2) Leukocytosis: Start date: 01/09/25 Status: Acute Assessment and plan: Significant and most likely associated with pneumonia and possibly his abdominal process, recent pneumonia. Continues trending down again today. (3) Community acquired pneumonia: Start date: 01/09/25 Status: Acute Assessment and plan: Patient will continue on Rocephin and doxycycline. (4) Hypoxic respiratory failure: Status: Acute Assessment and plan: In setting of pneumonia with inflammation and pressure from SBO contributing. Treating pneumonia. Not a log of wheezing, but could likely benefit from steroids. Use IS and ambulate to help open up aveoli. (5) DALLAS (acute kidney injury): Start date: 01/09/25 Status: Acute Assessment and plan: Gentle IV hydration, DALLAS resolved. (6) COPD (chronic obstructive pulmonary disease): Status: Chronic Assessment and plan: With hypoxia and pneumonia, give prednisone. Continue outpatient therapy (7) Non-insulin dependent type 2 diabetes mellitus: Status: Chronic Assessment and plan: Holding oral therapy, moderate short acting insulin sliding scale coverage (8) Schizo affective schizophrenia: Status: Chronic Assessment and plan: Continue outpatient medications, appears stable from psychiatric perspective. No longer getting some many antiemetics, can stop tele (9) Hypertension: Status: Chronic Assessment and plan: Continue outpatient lisinopril low dose. (10) Anemia: Status: Chronic Assessment and plan: H/H dropped with hydration, but more than expected. Leveled out today, but still concerning. no clinical bleeding. On pantoprazole Get FOB. Iron/TIBC and B12 with next blood draw. Follow. (11) DVT prophylaxis: Status: Acute Assessment and plan: high risk, h/o PE, give enoxaparin Subjective Subjective Patient reports: denies nausea, vomiting or fever Interval history since last seen: Events: started on PEG NGT clamped overnight 2 BMs overnight, one was very large. No blood/black noted. He feels better, no longer with abdominal pain. Not nauseous. Has taking fluids with medications. Walked with PT. Still using oxygen, gets dyspneic with walking. Exam Narrative Exam Narrative: alert and oriented, walking with PT with some breaks, walker, no acute distress lungs clear except slight rale just in left base, normal effort. heart regular. abd softly distended, active bowel sounds, no tenderness. no masses. Ext: no edema, not tender, warm Objective Last Vital Signs Temp 36.4 C L 01/11/25 11:29 Pulse 88 01/11/25 11:29 Resp 16 01/11/25 11:29 BP 126/95 H 01/11/25 11:29 Pulse Ox 94 01/11/25 11:29 Laboratory Results - last 24 hr 01/11/25 01/11/25 05:35 06:12 WBC 15.48 H RBC 2.95 L Hgb 9.5 L Hct 29.0 L MCV 98 H MCH 32.2 MCHC 32.8 RDW 13.2 Plt Count 155 MPV 10.4 Immature Gran % 0.8 Neutrophils % 71.6 Lymphocytes % 13.4 Monocytes % 12.8 Eosinophils % 1.3 Basophils % 0.1 Nucleated RBC % 0.0 Absolute Neutrophils 11.08 H Absolute Lymphocytes 2.07 Absolute Monocytes 1.98 H Absolute Eosinophils 0.20 Absolute Basophils 0.02 Sodium Cancelled 143 Potassium Cancelled 4.1 Chloride Cancelled 106 Carbon Dioxide Cancelled 31.7 Anion Gap Cancelled 5.3 BUN Cancelled 16 Creatinine Cancelled 0.9 Est GFR (CKD-EPI 2020) Cancelled 91.31 Glucose Cancelled 107 H Calcium Cancelled 8.6 Magnesium 2.1 Total Bilirubin 0.4 AST 15 ALT 20 Alkaline Phosphatase 71 Total Protein 5.7 L Albumin 2.7 L Time Spent with Patient Time Spent with Patient: 35-49 minutes Time was spent: preparing to see the patient(eg.review tests), obtaining and/or reviewing separately otained hiistory, ordering medications,tests, procedures, referring, communicating with other health critical care registered nurse, indepentently interpreting results, counseling the patient and care coordination
[2025-01-11] MEDS: predniSONE 20 MG TAB 40 MG PO (12:46)
--- NOTE | 2025-01-11 12:55 | W.NUTRFU ---
Date of service: 01/11/25 Time of Service: 12:55 Nutrition Note NOTE: pt advanced to clear liqs on CHO consistent diet. glucose fingersticks adjusted to AC and HS. Ordered for corrections with novolog TID. Pt on steroids which might contribute to higher glucose labs. 107 fasting this morning. 192 at breakfast. weight stable. total protein and albumin labs low today - will sent protein supps compatible with clear liq diet (boost breeze and sugar free Gelatein) to see if he will take. will monitor glucose/labs, diet toleration/advancement. Time Spent in Nutritional Counseling and Treatment: 5 min
--- NOTE | 2025-01-11 13:08 | PDOC.CMPRO ---
Date of service: 01/11/25 Time of Service: 13:10 Care Management Progress Note Progress Note Text Progress Note Text: Elias was sitting up in his chair when CM arrived. Elias was pleasant and willing to engage in conversation. Elias shared that he is feeling better and is enjoying the company, from staff. Elias's 2 sisters were visiting with him, at the time CM arrived. Elias shared that he is excited to go back to [place], and is hopeful that he can get off his clear diet restrictions soon. Per Elias, he has been on clears since Saturday. CM encouraged activity, and discussed with Elias possible barriers to discharge (off O2 if RT couldn't find a qualifying diagnosis). Per Elias, he enjoys being outside and spending time with his friends at [place]. He enjoy's sitting in the rocking chair in the [facility] family room, and greeting people. Discharge Potential Discharge Needs: PCP F/U Appt and Surgical F/U Appt Anticipated Barriers to Discharge: Medical Status Patient/Family Education Needs: Review discharge instructions, discuss Ask Me Three Transportation: Private vehicle ([employer] from [place] will be transporting) Plan: Anticipate that Elias will discharge back to [facility] once medically stable with new PT. Surgery is possible for his small bowel obstruction, and he will need a PT consult. Elias will f/u with his PCP and possibly the surgeon. Elias will transport with a [facility] facility vehicle. CM will continue to follow and to update the plan as needed. Social Determinants of Health Screening Social Determinants of health last assessed in clinic: 01/11/25 Will the Patient Participate in the Screening?: Unable to obtain Do you worry about having a steady place to live?: no Problems where you live: no known problems In the past 12 months, have you had to go without electric, gas, oil or water in your home?: no Has lack of transportation kept you from medical appointments or from doing things needed for daily living?: choose not to answer Has anyone in your life made you feel unsafe or unsupported?: choose not to answer How hard is it for you to pay for the very basics like food, housing, medical care, and heating? Would you say it is:: Not hard at all Do you want help finding or keeping work or a job?: I do not need or want help If for any reason you need help with day-to-day activities such as bathing, preparing meals, shopping, managing finances, etc., do you get the help you need?: I don?t need any help How often do you feel lonely or isolated from those around you?: Never Do you speak a language other than Maur[place] at home?: No Does the patient want assistance with any of the above?: No
[2025-01-11] MEDS: Enoxaparin 40 MG/0.4 ML SYR SC (13:39)
--- NOTE | 2025-01-11 13:44 | PT.INTREAT ---
PT Notes Visit Reasons: LLL Pneumonia, Gastroeneteritis, Leukocytosis Date: 01/11/2025 PRECAUTIONS: Fall risk due to impaired safety awareness. Standard. Activity as tolerated. SUBJECTIVE: Pt in recliner when apprached for therapy this afternoon, pt agreed to participating with therapy session. OBJECTIVE: ?NGT, NC IV lines all DC'd ? PAIN: none reported VITALS: monitored by nursing and RT Therapeutic Activities 57918: Direct one-on-one instruction in dynamic activities to improve functional performance. ?? BED MOBILITY/TRANSFERS? Rolling L/R: independent Supine-sit: independent ? Sit-supine: ? independnet? Sit-stand: ? supervision? Stand-sit: ??supervisioon ? Bed-Chair:? ?supervision ? Chair-bed: supervision Provided skilled cues and instruction on performance and technique throughout. Gait Training 32549: Direct one-on-one instruction and skilled instruction in: Employing an assistive device Modified weight-bearing status Movement sequencing Turning and movement with proper form Provided verbal cues for equipment management and technique Provided instruction in gait pattern Patient education regarding pacing and breathing techniques to maximize activity tolerance? GAIT? Assistive Device: ?? ?FWW ? Weight bearing: FWB Assist: ? SBA? Distance:?? 200'x3? Deviation: ? Stoop forwad posture, WBOS, low step height, short step length ? STAIRS:? ?6x6 up/down 4x9 up/down, bilateral handrail, step over step CGA ? ASSESSMENT:?Pt Sao2 monitored during the duration of session since it is pt first time gait training on room air, pt Sa02 range from 88-94% during the duration of session, pt cue for energy consevation strategies, and deep breathing exercises to help with SOB. PLAN: Continue with balance training, global strengthening and general conditioning for improved safety, mobility and activity tolerance until pt is ready for DC. TREATMENT CODE/TIME: 14499e9, [id number], 30mins (1:07-1:37pm)
--- NOTE | 2025-01-11 16:47 | W.PM.PROGNOT ---
Date of Service Date of service: 01/11/25 Time of Service: 16:47 Assessment and Plan Assessment and plan (1) Small bowel obstruction: Status: Acute Assessment and plan: It seems like he has had some therapeutic benefit from the Gastrografin, and certainly by the imaging all the contrast has made it into, most likely through the colon, especially with the bowel movement today. I would keep a liquid diet for tonight, and trial regular food for breakfast if he feels well. Subjective Subjective Interval history since last seen: Koko says he is feeling much better today. He had a large bowel movement, and has been tolerating some liquids without any nausea or vomiting. Exam GI Other: His abdomen is soft, and he has normal bowel sounds. He is not at all tender. There is no tympany. Objective Last Vital Signs Temp 98.1 F 01/11/25 15:28 Pulse 92 H 01/11/25 15:28 Resp 24 01/11/25 15:28 BP 156/88 H 01/11/25 15:28 Pulse Ox 88 L 01/11/25 15:28 Laboratory Results - last 24 hr 01/11/25 01/11/25 05:35 06:12 WBC 15.48 H RBC 2.95 L Hgb 9.5 L Hct 29.0 L MCV 98 H MCH 32.2 MCHC 32.8 RDW 13.2 Plt Count 155 MPV 10.4 Immature Gran % 0.8 Neutrophils % 71.6 Lymphocytes % 13.4 Monocytes % 12.8 Eosinophils % 1.3 Basophils % 0.1 Nucleated RBC % 0.0 Absolute Neutrophils 11.08 H Absolute Lymphocytes 2.07 Absolute Monocytes 1.98 H Absolute Eosinophils 0.20 Absolute Basophils 0.02 Sodium Cancelled 143 Potassium Cancelled 4.1 Chloride Cancelled 106 Carbon Dioxide Cancelled 31.7 Anion Gap Cancelled 5.3 BUN Cancelled 16 Creatinine Cancelled 0.9 Est GFR (CKD-EPI 2020) Cancelled 91.31 Glucose Cancelled 107 H Calcium Cancelled 8.6 Magnesium 2.1 Total Bilirubin 0.4 AST 15 ALT 20 Alkaline Phosphatase 71 Total Protein 5.7 L Albumin 2.7 L Time Spent with Patient Time Spent with Patient: <25 minutes Time was spent: preparing to see the patient(eg.review tests), indepentently interpreting results and counseling the patient
[2025-01-11] MEDS: cefTRIAXone 1 GM/50 ML BAG IVPB (22:47)
[2025-01-12] VITALS (8 sets, daily range): BP systolic 134–168; BP diastolic 78–88; PULSE 80–93; RESP 6–20; TEMP 36.5–36.8; O2SAT 90–93
[2025-01-12] MEDS: Albuterol/Ipratropium 3 ML UPD VIAL UPD ×3 (05:48→12:52)
[2025-01-12 07:07] LABS: Abs Immature Grans 0.23 10^3/uL (0.0-0.06); Absolute Lymphocyte Count 1.61 10^3/uL (1.2-3.4); Absolute Monocyte Count 1.33 10^3/uL (0.1-0.8); Basophils % 0.2 %; Eosinophils % 0.2 %; HGB 9.7 g/dL (13.5-17.5); Immature Grans % 1.9 %; MCH 31.8 pg (27.0-33.0); MCHC 32.3 % (32.0-36.0); MCV 98 fL (80-95); MPV 10.7 fL (8.0-11.0); Monocytes % 10.7 %; Platelet Count 175 10^3/uL (130-400); RBC 3.05 10^6/uL (4.36-5.78); RDW-SD 46.4 fL
[2025-01-12 07:10] LABS: Absolute Basophil Count 0.02 10^3/uL (0.0-0.2); Absolute Eosinophil Count 0.02 10^3/uL (0.0-0.7); Absolute Neutrophil Count 9.18 10^3/uL (1.2-6.7)
[2025-01-12 07:26] LABS: Iron 35 ug/dL (65-175); Total Iron Binding Capacity 242 ug/dL (250-450); Transferrin Sat 14 % (20-55)
[2025-01-12] MEDS: Tiotropium/Olodaterol 10 PUFF INHALER 2 PUFF IH (07:50)
[2025-01-12 07:52] LABS: Vitamin B12 1716 pg/mL (193-986)
[2025-01-12] MEDS: Polyethylene Glycol 3350 17 GM PACKET PO (07:59)
[2025-01-12] MEDS: Normal Saline Flush 10 ML SYR IVP (07:59)
[2025-01-12] MEDS: predniSONE 20 MG TAB 40 MG PO (08:00)
[2025-01-12] MEDS: Escitalopram 20 MG TAB PO (08:00)
[2025-01-12] MEDS: buPROPion-XL 150 MG TABCR 450 MG PO (08:00)
--- NOTE | 2025-01-12 09:28 | PTTR_ITS ---
PT Notes Visit Reasons: LLL Pneumonia, Gastroeneteritis, Leukocytosis Inpatient Physical Therapy Treatment Note [facility] Date: 01/12/25 SUBJECTIVE: Clepamella is sitting in recliner this am and agreeable to PT. OBJECTIVE: []? PAIN: none VITALS: ?monitored by [facility] Therapeutic Activities (18672e1): Direct one-on-one instruction in dynamic activities to improve functional performance. ? BED MOBILITY/TRANSFERS? ? seated in recliner.? Sit-stand: S ? Stand-sit: S? Provided skilled cues and instruction on performance and technique throughout, as he is very impulsive. GAIT? Assistive Device: FWW ?(no AD in room chair to commode) ? Weight bearing: FWB Assist: SBA ? Distance:?approx 200' in am? Deviation: shortened stride length, AD management ? He was toileted. Required SBA and help with clothing.? Therapeutic Exercises (27504u7): Direct one-on-one instruction in therapeutic exercises to develop strength, endurance, range of motion and flexibility. ? Exercises: seated AP and circles x10 ea, SLR, hip ABD/ADD, LAQ x10 ea. ? ASSESSMENT:? still noting impulsive mvmt which creates LOB. He is able to regain balance with furniture surf. Not safe ambulating longer distances without FWW. Exercises were challenging to keep him engaged, more so due to lack of coordination and short attention span. PLAN: will continue to work on his strength and functional mobility following PT POC. TREATMENT CODE/TIME: 25 min in am. DISCHARGE RECOMMENDATION: services.
[2025-01-12] MEDS: Pantoprazole 40 MG TABCR PO (10:33)
[2025-01-12] MEDS: Lisinopril 2.5 MG TAB PO (11:34)
[2025-01-12] MEDS: DOXYCYCLINE 100 MG in Normal Saline 100 ML IVPB (11:34)
--- NOTE | 2025-01-12 11:54 | W.PM.DS.N ---
Date of service: 01/12/25 Time of Service: 11:54 DS: Diagnosis Discharge Diagnosis (1) Small bowel obstruction: Status: Acute Discharge Plan Disposition Patient Disposition: Home W/Home Health Services Condition: Good Discharge Details Reason For Visit: LLL Pneumonia, Gastroeneteritis, Leukocytosis Admit Date/Time: 01/09/25 02:04 Admit Provider: Skyler Del Real Attending Provider: Skyler Del Real Primary Care Provider: Columba Carter Hospital Course Hospital Course: 69-year-old gentleman with sudden onset of not feeling well having been treated for pneumonia 1 week ago with no imaging in the system to review who presented to the ED for evaluation and found to have at least a left lower lobe pneumonia but also has progressed with a small bowel obstruction. He did vomit including some coffee ground emesis. NGT was placed and surgery consulted. He was given a gastrograffin challenge and his SBO did resolve with bowel movements starting 01/11. Surgery also recommended regular polyethelene glycol to maintain regular stools as he had a high stool burden on CT and a history of constipation. His hemoglogin did drop from 13.6 to 9.7. It was stable the last two days of admission. In addition to the coffee ground emesis reported, he did have heme + stools, though no travon melena or bleeding rectally. BID pantoprazole was continued. He was given carafate therapy for a month to treat possible gastritis/PUD. His iron was mildly low with transferrin saturation of 14%. Oral iron was resumed at discharge. B12 was normal. Further work up including possible endoscopy for GI bleeding should be considered as an outpatient. He was being treated for pneumonia prior to presentation. Treatment continued with ceftriaxone and doxycycline. He received a total of 4 days of therapy including on the day of discharge and was dicharged with 2 more days as it took him a few days to improve. Prednisone was also started due to wheezine and hypoxia, which resolves. He was given 3 more days of prednisone for a 5 day course. His WBC was high on admission and improved prior to discharge. He had acute kidney injury with a creatinine of 1.7 on admission that improved with hydration. His oral hypoglycemics metformin and pioglitizone were held at admission and resumed at discharge. He was evaluated by physical therapy who recommended home health PT for strength and mobility. He was encouraged to use four wheel walker for longer distances. PCP follow up: GI bleed/iron deficiency anemia work up Continue/titrate PEG/Miralax for constipation? Follow respiratory status. Home Meds and New Rx's Prescriptions: New polyethylene glycol 3350 17 gram Powder In Packet 17 g PO BID Qty: 60 2RF prednisone 20 mg Tablet 40 mg PO DAILY 3 Days Qty: 6 0RF sucralfate [Carafate] 1 gram tablet 1 g PO QACHS Qty: 120 0RF amoxicillin-pot clavulanate 875-125 mg tablet 1 tab PO BID 2 Days Qty: 4 0RF Rx Instructions: start 01/13 doxycycline hyclate 100 mg tablet 100 mg PO BID 2 Days Qty: 5 0RF Rx Instructions: start 01/12 pm Continued ferrous gluconate 324 mg (38 mg iron) tablet 324 mg PO DAILY simvastatin 20 mg tablet 20 mg PO HS bupropion HCl [Wellbutrin XL] 300 mg tablet extended release 24 hr 450 mg PO QAM Patient Comments: 450 mg daily per NOV glucosamine ltk-pjjkzkezmf-ohl 500-400-167 mg tablet 1 tab PO TID Rx Instructions: give with meal/snack Anoro Ellipta 62.5-25 mcg/actuation blister with device See Rx Instructions .ROUTE .COMPLEX Qty: 60 12RF Dose Instruction: INHALE 1 PUFF BY MOUTH DAILY Rx Instructions: INHALE 1 PUFF BY MOUTH DAILY calcium carbonate 200 mg calcium (500 mg) Tablet,Chewable 500 mg PO TID PRN PRNQty: 0 0RF Patient Comments: not no MAR 04/24/24 multivitamin [Multiple Vitamins] Tablet 1 tab PO DAILY Qty: 30 0RF cyanocobalamin (vitamin B-12) [Vitamin B-12] 500 mcg Tablet 1,000 mcg PO DAILY Qty: 60 0RF pantoprazole 40 mg Tablet,Delayed Release (Dr/Ec) 40 mg PO BID@0730,1999 Qty: 30 0RF docusate sodium [Colace] 100 mg Capsule 100 mg PO DAILY Qty: 30 0RF magnesium chloride [Mag 64] 64 mg Tablet,Delayed Release (Dr/Ec) 64 mg PO BID Qty: 30 0RF acetaminophen [Tylenol Arthritis Pain] 650 mg Tablet Extended Release 650 mg PO BID polyethylene glycol 3350 17 gram/dose powder 17 g PO DAILY PRN PRN Patient Comments: TK 17 GRAMS DISSOLVED IN LIQUID BY MOUTH ONCE DAILY Rx Instructions: PRN PER PROVIDERS MED LIST hydroxyzine pamoate [Vistaril] 25 mg capsule 25 mg PO DAILY PRN PRN Patient Comments: Take 1 capsule by mouth once a day as directed and can take an additional 1 po prn daily for anxiety lisinopril 2.5 mg tablet 2.5 mg PO DAILY pioglitazone [Actos] 30 mg tablet 30 mg PO DAILY folic acid 1 mg Tablet 1 mg PO DAILY metformin 500 mg tablet 500 mg PO BID albuterol sulfate [Ventolin HFA] 90 mcg/actuation Hfa Aerosol Inhaler 2 puff inhalation Q6H PRN bupropion HCl 150 mg tablet extended release 24 hr 150 mg PO DAILY Patient Comments: TAKE WITH 300MG TABLET ziprasidone HCl [Geodon] 80 MG capsule 80 - 160 mg PO DIRECTED Rx Instructions: 80mg QAM 160mg @ 5PM WITH DINNER clozapine [Clozaril] 100 mg tablet 200 - 375 mg PO DIRECTED Patient Comments: MAR states 575 mg daily Rx Instructions: 200mg QAM clozapine 25 mg tablet 100 mg PO ONCE Patient Comments: MAr shows 575mg between Am and PM doses celecoxib 100 mg capsule 100 mg PO BID Patient Comments: 100 mg BID escitalopram oxalate 20 mg tablet 20 mg PO DAILY Patient Comments: daily Extreme [place]-3 120-180-600 mg capsule 2 cap PO DAILY Patient Comments: on NOV as [place] XL Discharge Instructions Instructions: Small Bowel Obstruction (DC) Additional Instructions: you should take 2 more days of antibiotics and 3 more days of prednisone for your pneumonia Stand Alone Forms: Nursing Discharge Form Referrals: Columba Carter [Primary Care Provider] - (Left a voicemail with your PCP office to give you a call on to set up a follow up appointment for withing 1 to 2 weeks.) Activity:: Activity as Tolerated Equipment/Supplies:: No Equipment Needed Diet:: Carb Counting Discharge Orders Discharge Orders: Discharge Order (Routine); Ordered 01/12/25 Ordered By: Glynn Jimenez Discharge Data Discharge Date/Time-TO BE ENTERED AT DEPARTURE: 01/12/25 13:31 DS: Summary Time Spent with Patient providing and/or coordinating discharge services: Greater than 30 minutes Status at Discharge Functional status at discharge: uses cane/walker Overall status at discharge: patient is progressing back to baseline Mental Status: mental status grossly normal Speech and Movement: speech and movement normal Mood: congruent mood Affect: normal affect Quality:SDOH Health Related Social Needs: Health related social needs material hardship(utilities) (Z59.12) Exam Narrative Exam Narrative: alert and oriented, walking with PT with walker, no acute distress lungs clear except slight rale just in left base, normal effort. heart regular. abd softly distended, active bowel sounds, no tenderness. no masses. Ext: no edema, not tender, warm Psych Mental Status: mental status grossly normal Speech and Movement: speech and movement normal Mood: congruent mood Affect: normal affect DS: Data Vitals/I&O Vitals and I&O: Vital Signs Temperature 36.8 C 01/12/25 10:51 Temperature Source Temporal Artery Scan 01/12/25 10:51 Pulse 93 H 01/12/25 10:51 Pulse Rhythm Regular 01/09/25 06:43 Respiratory Rate 20 01/12/25 10:51 Respiratory Effort Labored 01/09/25 06:43 Respiratory Depth Normal 01/09/25 06:43 Respiratory Pattern Normal 01/09/25 06:43 Blood Pressure 168/88 H 01/12/25 10:51 Pulse Oximetry 90 L 01/12/25 10:51 Oxygen Delivery Method Room Air 01/12/25 10:51 Oxygen Flow Rate 0 01/12/25 10:51 Pain Level 0 01/12/25 11:13 Comment RN notified. 01/12/25 10:51 Intake & Output 01/11/25 01/11/25 01/12/25 11:59 23:59 11:59 Intake Total 1150 / 2270 1120 / 2270 320 / 320 Output Total 250 / 1490 1240 / 1490 200 / 200 Balance 900 / 780 -120 / 780 120 / 120 Weight 82.1 kg 79.696 kg Intake: IV 1150 / 1300 150 / 1300 100 / 100 Oral 970 / 970 220 / 220 Output: Urine 250 / 1490 1240 / 1490 200 / 200 Other: Urine Color Yellow Pale Yellow Urine Appearance Clear Clear Urine Odor Strong None Comment patient slightly incontinent in brief. Stool Occult Blood Positive Stool Size Large Small Stool Characteristics Soft Soft Data Completed and Pending Labs on day of discharge: Labs from last 24 hours 01/12/25 06:07 WBC 12.40 H RBC 3.05 L Hgb 9.7 L Hct 30.0 L MCV 98 H MCH 31.8 MCHC 32.3 RDW 13.0 Plt Count 175 MPV 10.7 Immature Gran % 1.9 Neutrophils % 74.0 Lymphocytes % 13.0 Monocytes % 10.7 Eosinophils % 0.2 Basophils % 0.2 Nucleated RBC % 0.0 Absolute Neutrophils 9.18 H Absolute Lymphocytes 1.61 Absolute Monocytes 1.33 H Absolute Eosinophils 0.02 Absolute Basophils 0.02 Iron 35 L TIBC 242 L Transferrin % Sat 14 L Vitamin B12 1716 H 01/11/25 16:39 Stool Stool Occult Blood (ALFREDO) - Pending Preliminary micro results at discharge 01/08/25 20:56 Blood Culture - Preliminary Blood NO GROWTH 72 HOURS 01/08/25 21:07 Blood Culture - Preliminary Blood NO GROWTH 72 HOURS 01/11/25 16:39 Stool Occult Blood (ALFREDO) - Pending Stool PFSH All Active Problems (Updated 01/11/25 @ 12:27 by Glynn Jimenez) Hypoxic respiratory failure (Acute) Anemia (Chronic) Small bowel obstruction (Acute) Gastroenteritis (Acute) DALLAS (acute kidney injury) (Acute) Generalized weakness (Acute) Leukocytosis (Acute) Acute exacerbation of chronic obstructive airways disease (Acute) Pulmonary nodule (Acute) Asthma-COPD overlap syndrome (Acute) Recurrent pneumonia (Acute) Pain (Chronic) Community acquired pneumonia (Acute) HCAP (healthcare-associated pneumonia) (Acute) UTI (urinary tract infection) (Acute) Acute pyelonephritis (Acute) Constipation, chronic (Chronic) Discharge planning issues (Acute) Pneumonia (Acute) GERD (gastroesophageal reflux disease) (Chronic) Hypertension (Chronic) Oropharyngeal dysphagia (Acute) Non-insulin dependent type 2 diabetes mellitus (Chronic) Diabetes mellitus (Chronic) H/O: CVA (cerebrovascular accident) (Acute) COPD (chronic obstructive pulmonary disease) (Chronic) DVT prophylaxis (Acute) Schizo affective schizophrenia (Chronic) Medical History MSSA bacteremia Sepsis Acidosis, lactic DALLAS (acute kidney injury) Adrenal hyperplasia Pulmonary emboli Acute thrombosis of right basilic vein Complication associated with peripherally inserted central catheter (PICC) Normocytic anemia H/O schizophrenia Family History Mother No problems noted. Social History (Reviewed 01/09/25 @ 01:38 by Skyler Nguyen Smoking/Tobacco Use Status: Former Tobacco Use Quit Date: 09/30/99 Tobacco: How many years used: 43 Smoking risk assessment performed?: Yes Alcohol Intake: former Drug use: Occasionally Substance use type: does not use Housing: assisted living facility Do you feel safe at home: Yes Do you feel safe in your relationship?: Yes Additional Social history: UTAP Time Spent with Patient Time Spent with Patient: <45 minutes Time was spent: preparing to see the patient(eg.review tests), obtaining and/or reviewing separately otained hiistory, ordering medications,tests, procedures, referring, communicating with other health child adolescent care, indepentently interpreting results, counseling the patient and care coordination
--- NOTE | 2025-01-12 11:55 | PDOC.HHF2F ---
Home Health Referral Home Health Orders Clinical synopsis of why skilled professionals are needed: 69-year-old gentleman with sudden onset of not feeling well having been treated for pneumonia 1 week ago with no imaging in the system to review who presented to the ED for evaluation and found to have at least a left lower lobe pneumonia but also has progressed with a small bowel obstruction. He did vomit including some coffee ground emesis. NGT was placed and surgery consulted. He was given a gastrograffin challenge and his SBO did resolve with bowel movements starting 01/11. Surgery also recommended regular polyethelene glycol to maintain regular stools as he had a high stool burden on CT and a history of constipation. His hemoglogin did drop from 13.6 to 9.7. It was stable the last two days of admission. In addition to the coffee ground emesis reported, he did have heme + stools, though no travon melena or bleeding rectally. BID pantoprazole was continued. He was given carafate therapy for a month to treat possible gastritis/PUD. His iron was mildly low with transferrin saturation of 14%. Oral iron was resumed at discharge. B12 was normal. Further work up including possible endoscopy for GI bleeding should be considered as an outpatient. He was being treated for pneumonia prior to presentation. Treatment continued with ceftriaxone and doxycycline. He received a total of 4 days of therapy, and was dicharged with 2 more days as it took him a few days to improve. Prednisone was also started due to wheezine and hypoxia, which resolves. He was given 3 more days of prednisone for a 5 day course. His oral hypoglycemics metformin and pioglitizone were held at admission and resumed at discharge. He was evaluated by physical therapy who recommended home health PT for strength and mobility. He was encouraged to use four wheel walker for longer distances. PCP follow up: GI bleed/iron deficiency anemia work up Continue/titrate PEG/Miralax for constipation? Follow respiratory status Medical diagnosis necessitation home health referral: weakness, unstable gait Physical Therapist: Check all that apply Increase strength & endurance for safe mobility at home: Ordered To design/establish home maintenance program: Ordered Home safety evaluation and teaching/gait training including stair management (if applicable): Ordered Home Bound Status Requires the aid of supportive device (check all that apply): Walker Describe why leaving home would require a considerable and taxing effort: Requires frequent rest periods Encounter Date and Reason: I certify that a FTF encounter for this patient was performed on January 12, 2025 and that such encounter was related to the primary reason the patient requires home health services. The encounter was conducted in the following manner: By me as the certifying physician, ENTRY LEVEL DRAFTER, PA or By an inpatient physician, ENTRY LEVEL DRAFTER or PA during an inpatient stay who communicated findings to me, Certification And Authentication I certify that I composed the above information based on my clinical judgment relating to this patient's medical condition and, if applicable, clinical findings communicated to me by the NPP or inpatient physician who performed the FTF encounter. Name of Provider that will be monitoring home health services: Columba Carter
[2025-01-12] MEDS: Insulin Aspart 300 UNITS/3 ML PEN SC (12:04)
--- NOTE | 2025-01-12 12:30 | PDOC.CMDIS ---
Date of service: 01/12/25 Time of Service: 12:30 LACE Index Scoring Tool Questions: Length of Stay (in days): 3 Was the patient admitted via the E.D.?: Yes Comorbidities: Diabetes w/o Complication and Chronic Pulmonary Disease E.D. Visits: 1 Answers: Total Score: 10 Risk of Readmission: High Risk Care Management Discharge Plan Reason for Hospitalization: LLL Pneumonia, gastroenteritis, leukocytosis Discharge Plan: Elias is discharged today with new PT services. Elias will follow up with his PCP and continue per his plan of care. He will be transported home to [place] by Joycelyn (facility staff). Patient/Family Education Needs: Review of discharge instructions, activity, limitations and discuss ask me 3. Services Needed at Discharge: Physical Therapy (new home health PT) SDOH Health Related Social Needs: Health related social needs material hardship(utilities) (Z59.12)
[2025-01-12] MEDS: cefTRIAXone 1 GM/50 ML BAG IVPB (12:47)
== END 2025-01-12 13:31 | disposition home health service (06) | DRG 193 ==
LOC: ER 01-09 02:20 → MS 01-09 03:09
PROVIDERS: Emergency Medicine; Admitting Provider Family Medicine; Emergency Provider Emergency Medicine; PCP Nurse Practitioner Family; Responsible Provider Family Medicine; Visit Provider Family Medicine
DX: J96.01 Acute respiratory failure with hypoxia (principal); K27.4 Chronic or unspecified peptic ulcer, site unspecified, with hemorrhage; J18.9 Pneumonia, unspecified organism; J44.0 Chronic obstructive pulmonary disease with (acute) lower respiratory infection; K56.609 Unspecified intestinal obstruction, unspecified as to partial versus complete obstruction; N17.9 Acute kidney failure, unspecified; J44.1 Chronic obstructive pulmonary disease with (acute) exacerbation; R53.1 Weakness; D72.828 Other elevated white blood cell count; E11.9 Type 2 diabetes mellitus without complications; F25.0 Schizoaffective disorder, bipolar type; I10 Essential (primary) hypertension; R91.1 Solitary pulmonary nodule; Z86.73 Personal history of transient ischemic attack (TIA), and cerebral infarction without residual deficits; K59.09 Other constipation; K21.9 Gastro-esophageal reflux disease without esophagitis; Z87.891 Personal history of nicotine dependence; R13.12 Dysphagia, oropharyngeal phase; Z79.84 Long term (current) use of oral hypoglycemic drugs; Z86.711 Personal history of pulmonary embolism; D50.0 Iron deficiency anemia secondary to blood loss (chronic); Z79.899 Other long term (current) drug therapy; I45.81 Long QT syndrome
CPT/HCPCS: 00123; 36415; 71045; 80048; 80053; 82805; 84145; 85027; 87040; 87637; 93005; 94640; 96361; 96365; 96368; 96375; 97110; 97116; 97162; 97530; 99223; 99231; 99232; 99285; J1650; 74018; 74177; 81003; 81015; 82272; 82607; 83540; 83550; 83605; 83735; 83880; 84484; 85025; 93010; 94664; 94667; 94760; 99239; J0131; J0696; J1815; J2405; J2470; J3475; J3490; J7512; J7620

== ENCOUNTER 2025-01-14 20:17 | Inpatient (IN) | payer MEDICARE, MEDICAID, SELFPAY ==
[2025-01-14] VITALS (48 sets, daily range): BP systolic 135–161; BP diastolic 53–74; PULSE 80–95; RESP 15–32; TEMP 36.9; O2SAT 90–94
--- NOTE | 2025-01-14 20:00 | RT.EKG_ITS ---
APPROVED REPORT Exam: Resting ECG Reason for Exam: weakness Patient Location: E HR:93 bpm ECG Measurements Heart Rate 93 AXIS OK 144 P 45 QRSd 115 QRS -34 QT 390 T 71 QTc 486 Conclusion Sinus rhythm, rate 93 No interval abnormalities Incomplete LBBB No STEMI No significant changes from priors
--- NOTE | 2025-01-14 20:22 | W.ED.GENAD ---
Discharge Plan Disposition Patient Disposition: Admit to [facility] Condition: Stable Discharge Details Chief Complaint: AMS/LOC Clinical Impression: HCAP (healthcare-associated pneumonia) Primary Care Provider: Columba Carter ED Provider: Elodia Myers Home Meds and New Rx's Prescriptions: No Action ferrous gluconate 324 mg (38 mg iron) tablet 324 mg PO DAILY simvastatin 20 mg tablet 20 mg PO HS bupropion HCl [Wellbutrin XL] 300 mg tablet extended release 24 hr 450 mg PO QAM Patient Comments: 450 mg daily per MAR glucosamine ykr-uexacibzzh-ewf 500-400-167 mg tablet 1 tab PO TID Rx Instructions: give with meal/snack Anoro Ellipta 62.5-25 mcg/actuation blister with device See Rx Instructions .ROUTE .COMPLEX Qty: 60 12RF Dose Instruction: INHALE 1 PUFF BY MOUTH DAILY Rx Instructions: INHALE 1 PUFF BY MOUTH DAILY calcium carbonate 200 mg calcium (500 mg) Tablet,Chewable 500 mg PO TID PRN PRNQty: 0 0RF Patient Comments: not no MAR 04/24/24 multivitamin [Multiple Vitamins] Tablet 1 tab PO DAILY Qty: 30 0RF cyanocobalamin (vitamin B-12) [Vitamin B-12] 500 mcg Tablet 1,000 mcg PO DAILY Qty: 60 0RF pantoprazole 40 mg Tablet,Delayed Release (Dr/Ec) 40 mg PO BID@0730,2000 Qty: 30 0RF docusate sodium [Colace] 100 mg Capsule 100 mg PO DAILY Qty: 30 0RF magnesium chloride [Mag 64] 64 mg Tablet,Delayed Release (Dr/Ec) 64 mg PO BID Qty: 30 0RF acetaminophen [Tylenol Arthritis Pain] 650 mg Tablet Extended Release 650 mg PO BID polyethylene glycol 3350 17 gram/dose powder 17 g PO DAILY PRN PRN Patient Comments: TK 17 GRAMS DISSOLVED IN LIQUID BY MOUTH ONCE DAILY Rx Instructions: PRN PER PROVIDERS MED LIST hydroxyzine pamoate [Vistaril] 25 mg capsule 25 mg PO DAILY PRN PRN Patient Comments: Take 1 capsule by mouth once a day as directed and can take an additional 1 po prn daily for anxiety lisinopril 2.5 mg tablet 2.5 mg PO DAILY pioglitazone [Actos] 30 mg tablet 30 mg PO DAILY folic acid 1 mg Tablet 1 mg PO DAILY metformin 500 mg tablet 500 mg PO BID albuterol sulfate [Ventolin HFA] 90 mcg/actuation Hfa Aerosol Inhaler 2 puff inhalation Q6H PRN bupropion HCl 150 mg tablet extended release 24 hr 150 mg PO DAILY Patient Comments: TAKE WITH 300MG TABLET polyethylene glycol 3350 17 gram Powder In Packet 17 g PO BID Qty: 60 2RF prednisone 20 mg Tablet 40 mg PO DAILY 3 Days Qty: 6 0RF sucralfate [Carafate] 1 gram tablet 1 g PO QACHS Qty: 120 0RF ziprasidone HCl [Geodon] 80 MG capsule 80 - 160 mg PO DIRECTED Rx Instructions: 80mg QAM 160mg @ 5PM WITH DINNER clozapine [Clozaril] 100 mg tablet 200 - 375 mg PO DIRECTED Patient Comments: NOV states 575 mg daily Rx Instructions: 200mg QAM clozapine 25 mg tablet 100 mg PO ONCE Patient Comments: Nov shows 575mg between Am and PM doses celecoxib 100 mg capsule 100 mg PO BID Patient Comments: 100 mg BID escitalopram oxalate 20 mg tablet 20 mg PO DAILY Patient Comments: daily Extreme [place]-3 120-180-600 mg capsule 2 cap PO DAILY Patient Comments: on NOV as [place] XL HPI General Mode of arrival: EMS. Date/Time Provider Initiated Documentation: 01/14/25 20:22. Limitations to Documentation: no limitations. Information obtained by: patient and old records reviewed. HPI Narrative: HPI: This is a 69 y/o M patient wirh a history of COPD, diabetes, schizoaffective disorder, and a recent admission for a bowel obstruction, management consiervatively with NG tube, gastrograffin, and discharged on 01/12, presenting with AMS, weakness. The patient was brought in by EMS, he stated that since his discharge he has barely been able to get up and move around, states that he didn't want to tell anyone but today it was time to come back to the hospital. In the hospital he was noted to have coffee-ground emesis, had a hemoglobin drop but did not require transfusion, started on PPI. The pt has home health aides, states that he has been eating a small amount of soup, and drinking water. Has had one episode of non-bloody emesis, and had diarrhea yesterday. Denies abdominal pain or chest pain, no reported shortness of breath. Exam: Gen: Awake and alert, in no apparent distress HEENT: Non-icteric sclera, PERRL Neck: Supple Lungs: No apparent respiratory distress, normal respiratory effort with mild tachypnea. Crackles appreciated b/l, R>L CV: Appears well perfused, heart with regular rate and rhythm, strong pulses Abdomen: Non-distended, soft, non-tender to palpation without regidity, rebound, or guarding. MSK: Moves 4 extremities without apparent limitation in ROM, no peripheral edema Skin: Visualized skin without rashes, cyanosis. Neuro: No obvious focal deficits or facial asymmetry. Speaks in full, clear sentences. Gait deferred due to weakness. Alert, oriented to person, place, but slightly confused (thinks we are taking him to surgery) Psych: Appropriate for situation. MDM: This is a 69 y/o M presenting for generalized weakness and altered mental status after a recent discharge for SBO. Differential includes but is not limited toanemia, metabolic/electrolyte derangement, kidney injury, infection including pneumonia, UTI, intra-abdominal infection including diverticulitis, repeat SBO, c-diff (though no diarrhea x24hr). We will obtain an EKG, labs to include cbc, cmp, mag, trop, lipase, lactate, UA, type and screen, and will obtain CT of the chest, abd, and pelvis. ED Course:EKG non-ischemic. Labs notable for leukocytosis to 34, anemia stable at 9.8. Lactate 1.9, no electrolyte derangements, kidney injury, or liver disease. Troponin negative, lipase low. UA non-infectious. CT reviewed by myself, showing a new multilobar PNA, and improved small bowel appearance, though ileus without mechanical obstruction is noted. Will provide cefepime, vanco, doxy given macrolide allergy. Admitted to the hospitalist service. Elodia Myers MD Related Data Home Medications ?Medication ?Instructions ?Recorded ?Confirmed ziprasidone HCl 80 mg capsule 80 - 160 mg PO DIRECTED 06/18/17 01/14/25 (Geodon) calcium carbonate 500 mg (2.5 x 200 mg calcium (500 12/05/18 01/14/25 mg)) PO TID PRN PRN #0 tabs cyanocobalamin (vitamin B-12) 500 1,000 mcg (2 x 500 mcg) PO DAILY 01/23/19 01/14/25 mcg tablet (Vitamin B-12) #60 tabs docusate sodium 100 mg capsule 100 mg PO DAILY #30 caps 01/23/19 01/14/25 (Colace) magnesium chloride 64 mg 64 mg PO BID #30 tabs 01/23/19 01/14/25 (magnesium chloride) tablet,delayed release (Mag 64) multivitamin (Multiple Vitamins 1 tab PO DAILY #30 tabs 01/23/19 01/14/25 tablet) pantoprazole 40 mg tablet,delayed 40 mg PO BID@0730,2000 #30 tabs 01/23/19 01/14/25 release bupropion HCl 300 mg 24 hr tablet, 450 mg PO QAM 08/14/19 01/14/25 extended release (Wellbutrin XL) ferrous gluconate 324 mg (38 mg 324 mg PO DAILY 08/14/19 01/14/25 iron) tablet simvastatin 20 mg tablet 20 mg PO HS 08/14/19 01/14/25 acetaminophen 650 mg 650 mg PO BID 04/21/20 01/14/25 tablet,extended release (Tylenol Arthritis Pain) polyethylene glycol 3350 17 17 g PO DAILY PRN PRN 04/25/20 01/14/25 gram/dose oral powder hydroxyzine pamoate 25 mg capsule 25 mg PO DAILY PRN PRN 10/17/20 01/14/25 (Vistaril) lisinopril 2.5 mg tablet 2.5 mg PO DAILY 10/17/20 01/14/25 glucosamine sulfate 500 1 tab PO TID 11/23/22 01/14/25 mg-chondroitin 400 mg-msm 167 mg tablet clozapine 100 mg tablet (Clozaril) 200 - 375 mg PO DIRECTED 11/25/23 01/14/25 celecoxib 100 mg capsule 100 mg PO BID 04/24/24 01/14/25 clozapine 25 mg tablet 100 mg PO ONCE 04/24/24 01/14/25 escitalopram oxalate 20 mg tablet 20 mg PO DAILY 04/24/24 01/14/25 omega 3-dha 120 mg-epa 180 mg-fish 2 cap PO DAILY 04/24/24 01/14/25 oil 600 mg capsule (Extreme [place]-3) umeclidinium 62.5 mcg-vilanterol See Rx Instructions .Route 09/11/24 04/17/25 25 mcg/actuation powdr for .COMPLEX #60 ea inhalation (Anoro Ellipta) folic acid 1 mg tablet 1 mg PO DAILY 01/08/25 01/14/25 pioglitazone 30 mg tablet (Actos) 30 mg PO DAILY 01/08/25 01/14/25 albuterol sulfate 90 mcg/actuation 2 puff inhalation Q6H PRN 01/09/25 01/14/25 aerosol inhaler (Ventolin HFA) metformin 500 mg tablet 500 mg PO BID 01/09/25 01/14/25 bupropion HCl 150 mg 24 hr tablet, 150 mg PO DAILY 01/11/25 01/14/25 extended release polyethylene glycol 3350 17 gram 17 g PO BID #60 ea 01/12/25 01/14/25 oral powder packet prednisone 20 mg tablet 40 mg (2 x 20 mg) PO DAILY 3 days 01/12/25 01/14/25 #6 tabs sucralfate 1 gram tablet (Carafate) 1 g PO QACHS #120 tabs 01/12/25 01/14/25 Previous Rx's ?Medication ?Instructions ?Recorded calcium carbonate 500 mg (2.5 x 200 mg calcium (500 12/05/18 mg)) PO TID PRN PRN #0 tabs cyanocobalamin (vitamin B-12) 500 1,000 mcg (2 x 500 mcg) PO DAILY 01/23/19 mcg tablet (Vitamin B-12) #60 tabs docusate sodium 100 mg capsule 100 mg PO DAILY #30 caps 01/23/19 (Colace) magnesium chloride 64 mg 64 mg PO BID #30 tabs 01/23/19 (magnesium chloride) tablet,delayed release (Mag 64) multivitamin (Multiple Vitamins 1 tab PO DAILY #30 tabs 01/23/19 tablet) pantoprazole 40 mg tablet,delayed 40 mg PO BID@0730,2000 #30 tabs 01/23/19 release umeclidinium 62.5 mcg-vilanterol See Rx Instructions .Route 06/10/24 25 mcg/actuation powdr for .COMPLEX #60 ea inhalation (Anoro Ellipta) polyethylene glycol 3350 17 gram 17 g PO BID #60 ea 01/12/25 oral powder packet prednisone 20 mg tablet 40 mg (2 x 20 mg) PO DAILY 3 days 01/12/25 #6 tabs sucralfate 1 gram tablet (Carafate) 1 g PO QACHS #120 tabs 01/12/25 Allergies Allergy/AdvReac Type Severity Reaction Status Date / Time Macrolide Antibiotics Allergy Severe Other (See Verified 01/14/25 20:52 Comment) General KENYON: 3 Medical Decision Making Quality:SDOH Health Related Social Needs: Health related social needs material hardship(utilities) (Z59.12) PFSH All Active Problems (Updated 01/14/25 @ 23:26 by Elodia Myers MD) Anemia (Chronic) Gastroenteritis (Acute) Acute exacerbation of chronic obstructive airways disease (Acute) Pulmonary nodule (Acute) Asthma-COPD overlap syndrome (Acute) Recurrent pneumonia (Acute) Pain (Chronic) Community acquired pneumonia (Acute) Pneumonia (Acute) H/O: CVA (cerebrovascular accident) (Acute) Diabetes mellitus (Chronic) HCAP (healthcare-associated pneumonia) (Acute) UTI (urinary tract infection) (Acute) Acute pyelonephritis (Acute) COPD (chronic obstructive pulmonary disease) (Chronic) Constipation, chronic (Chronic) Discharge planning issues (Acute) Schizo affective schizophrenia (Chronic) Non-insulin dependent type 2 diabetes mellitus (Chronic) Oropharyngeal dysphagia (Acute) Hypertension (Chronic) GERD (gastroesophageal reflux disease) (Chronic) Medical History Small bowel obstruction MSSA bacteremia Sepsis Acidosis, lactic [place] (acute kidney injury) Adrenal hyperplasia Pulmonary emboli Acute thrombosis of right basilic vein Complication associated with peripherally inserted central catheter (PICC) Normocytic anemia H/O schizophrenia Family History Mother No problems noted. Social History Smoking/Tobacco Use Status: Former Tobacco Use Quit Date: 09/30/99 Tobacco: How many years used: 43 Smoking risk assessment performed?: Yes Alcohol Intake: former Drug use: Occasionally Substance use type: does not use Housing: assisted living facility Do you feel safe at home: Yes Do you feel safe in your relationship?: Yes Additional Social history: [employer]
[2025-01-14 20:28] LABS: HCT 30.2 % (40.0-50.0); HGB 9.8 g/dL (13.5-17.5); Immature Grans % 2.4 %; MCH 31.5 pg (27.0-33.0); MCHC 32.5 % (32.0-36.0); MCV 97 fL (80-95); Platelet Count 252 10^3/uL (130-400); RBC 3.11 10^6/uL (4.36-5.78); RDW 13.1 % (11.8-14.1)
[2025-01-14 20:43] LABS: Absolute Lymphocyte Count 1.38 10^3/uL (1.2-3.4); Absolute Monocyte Count 2.07 10^3/uL (0.1-0.8); Atypical Lymphocytes % 1 %; Bands % 3 %; Diff Comment Manual Differential; Myelocytes % 1; Promyelocytes % 1; RBC Morphology Normal
--- NOTE | 2025-01-14 20:45 | DI.CT_ITS ---
Exam(s) CT CHEST/ABD/PEL W EXAM: CT CHEST/ABD/PEL W CLINICAL HISTORY: Recent SBO, crackles in lungs, elevated WBC. TECHNIQUE: Imaging Protocol: Axial computed tomography images with coronal and sagittal reformatted images were created and reviewed CONTRAST MATERIAL: Intravenous: Omnipaque 350 Contrast volume:100 ml Oral: None COMPARISON: CT CT ABDOMEN PELVIS W from 01/08/2025 CR,XR XR PORTABLE CHEST AP from 01/09/2025 FINDINGS: CHEST: LUNGS: There is now patchy infiltrate throughout the right lung involving all lobes. There is also i nfiltrate again noted in the left lower lobe posterior basal segment. There are no pleural effusions . No focal findings in the trachea and mainstem bronchi.. MEDIASTINUM: There is no hilar nor mediastinal adenopathy. Few small subcarinal lymph nodes are note d. Visualized thyroid unremarkable. CARDIAC: Heart size normal. There is very minimal thickening of the anterior pericardium. No large pericardial effusion.Caliber of the thoracic aorta is within normal limits. OSSEOUS: No significant osseous lesions.No fractures.. ABDOMEN: GI: There has been significant improvement in the small bowel obstruction pattern. Oral contrast is now seen in the colon and the small bowel is significantly decompressed although there are few persis tently mildly dilated small bowel loops in the lower pelvis just above the urinary bladder. There is no free air. No ascites evident. LIVER: There are no focal hepatic lesions nor dilatation of intrahepatic ducts. GALLBLADDER/BILIARY: No obvious gallbladder pathology. CBD is not dilated. PANCREAS: There are multiple pancreatic parenchymal calcifications which are most prominent in the un cinate process.. No significant pancreatic mass nor dilatation of the pancreatic duct. No peripancr eatic streaking. SPLEEN: Spleen size normal. Splenic granulomas are noted. No ominous splenic lesions. Splenic and portal veins are patent. ADRENALS: Stable bilateral prominent adrenal glands again noted, most probably bilateral adrenal hype rplasia. KIDNEYS: Right renal cysts again noted. No solid renal masses. No calculi. No hydronephrosis nor h ydroureter.. Urinary bladder wall is difficult to assess because of the bladder being collapsed but it does appear to be normally uniformly thickened.. ABDOMINAL AORTA: Calcified but not enlarged. Iliac arteries also calcified but not enlarged. LYMPH NODES: There is no retroperitoneal nor paraaortic adenopathy. ABDOMINAL WALL: No evidence of significant anterior abdominal wall nor inguinal hernia. PELVIS: LYMPH NODES: There is no intrapelvic nor inguinal adenopathy. GI: No evidence of appendicitis.Redundant sigmoid noted. No diverticulitis. URINARY BLADDER: Abnormal deform wall thickening. REPRODUCTIVE: Prostate size normal. Seminal vesicles unremarkable. OSSEOUS: No significant osseous lesions. No fractures. No listhesis. IMPRESSION: 1. Compared to the CT scan of 01/08/2025 there has been significant improvement in the small bowel ob struction pattern. There are few persistent mildly dilated small bowel loops in the lower pelvis jus t above the urinary bladder, however, the oral contrast has passed to the level of the large bowel. There is no evidence of free air nor abscess. 2. Abnormal appearance of the urinary bladder which may be exaggerated by lack of distension but neve rtheless appears significantly thickened in uniform fashion. Suspect chronic cystitis. Recommend fu rther testing starting with urinalysis. 3. There is increased infiltrate now noted throughout the right lung. There is persistent infiltrate in the left lower lobe. There are no pleural effusions. 4. Other findings as above. RADIATION DOSE DELIVERED: 760.29mGy.cm Total DLP DATA REPOSITORY: All CT scans at this facility are submitted to the National Radiology Data Registry (NRDR) Dose Index Registry (DIR) with the [employer] (A[employer]). RADIATION OPTIMIZATION: All CT scans at this facility use at least one of these dose optimization te chniques: automated exposure control; mA and/or kV adjustment per patient size (includes targeted exa ms where dose is matched to clinical indication); or iterative reconstruction.
[2025-01-14 20:46] LABS: WBC 34.55 10^3/uL (4.4-10.8)
[2025-01-14 20:49] LABS: ALT 29 U/L (16-63); AST 30 U/L (15-37); Albumin 2.8 g/dL (3.4-5.0); Alkaline Phosphatase 74 U/L (46-116); Anion Gap 11.1 mmol/L (3-11); BUN 16 mg/dL (7-18); Bilirubin, Total 0.3 mg/dL (0.2-1.0); CO2 26.9 mmol/L (21.0-32.0); CREATININE 1.3 mg/dL (0.70-1.30); Calcium 8.8 mg/dL (8.5-10.1); Chloride 99 mmol/L (98-107); Estimated GFR 58.73 (mL/min/1.73m2); Glucose 210 mg/dL (74-106); Lipase 12 U/L (<78); Magnesium 1.8 mg/dL (1.8-2.4); Sodium 137 mmol/L (136-145); Total Protein 6.3 g/dL (6.4-8.2); Troponin I 8 ng/L (<or=76)
[2025-01-14 21:02] LABS: INR 1.1 (0.9-1.1); Prothrombin Time 11.4 sec (9.1-11.1)
[2025-01-14 21:31] LABS: Lactate 1.9 mmol/L (<or=2.0)
[2025-01-14 21:39] LABS: Bilirubin Small (Negative); Blood Negative (Negative); Clarity Clear (Clear); Glucose 250 mg/dL (Negative); Ketones Trace mg/dL (Negative); Leukocyte Esterase Negative (Negative); Nitrite Negative (Negative); Specific Gravity 1.025 (1.005-1.025); Urobilinogen 0.2 mg/dL (Up to 0.2)
[2025-01-14] MEDS: Normal Saline - Diluent 50 ML VIAL IJ (21:48)
[2025-01-14] MEDS: Omnipaque 350 MG/ML 100 ML BTL IJ (21:49)
[2025-01-14 21:50] LABS: Bacteria Few HPF (Negative); C & S Indicated? No; Casts 0-2 Hyaline LPF (Negative); Crystals Negative HPF (Negative); Epithelial Cells Negative HPF (Negative); Mucus Trace (Negative); RBC 0-2 HPF (0-2); WBC 0-2 HPF (0-5)
[2025-01-14 22:03] LABS: Troponin I 9 ng/L (<or=76)
--- NOTE | 2025-01-14 22:44 | DI.VRAD_ITS ---
PROCEDURE INFORMATION: Exam: CT Chest With Contrast; Diagnostic Exam date and time: 01/14/2025 21:35 Age: 69 years old Clinical indication: Other: Recent sbo, crackles in lungs, elevated wbc TECHNIQUE: Imaging protocol: Diagnostic computed tomography of the chest with contrast. 3D rendering (Not supervised by radiologist): MIP and/or 3D reconstructed images were created by the technologist. Contrast material: 350; Contrast volume: 100 ml; Contrast route: INTRAVENOUS (IV); COMPARISON: CT CHEST LUNG CANCER SCREEN 12/09/2023 13:27 FINDINGS: Lungs: New moderate right upper, middle and right upper lobe, new mild left lower lobe patchy airspace and ground-glass opacities. The lungs appear hyperinflated. Mild right-sided pulmonary volume loss is suspected, likely chronic. Pleural spaces: New trace right pleural fluid. No pneumothorax. Heart: Trace pericardial fluid appears likely physiologic. No significant cardiomegaly. Lymph nodes: Benign-appearing calcified mediastinal lymph nodes. No significant adenopathy is seen. Vasculature: No aortic aneurysm. Bones/joints: No acute left rib deformities. No acute fracture or subluxation. Soft tissues: Right gynecomastia. IMPRESSION: 1. New moderate multilobar pneumonia. 2. New trace right pleural fluid. 3. Incidental findings as described. PROCEDURE INFORMATION: Exam: CT Abdomen And Pelvis With Contrast Exam date and time: 01/14/2025 21:35 Age: 69 years old Clinical indication: Other: Recent sbo, crackles in lungs, elevated wbc TECHNIQUE: Imaging protocol: Computed tomography of the abdomen and pelvis with contrast. 3D rendering (Not supervised by radiologist): MIP and/or 3D reconstructed images were created by the technologist. Contrast material: 350; Contrast volume: 100 ml; Contrast route: INTRAVENOUS (IV); COMPARISON: CT ABDOMEN PELVIS W 01/08/2025 23:48 FINDINGS: Liver: No mass. Gallbladder and biliary ducts: No calcified stones. No gross ductal dilation. Pancreas: No ductal dilation. No mass . Spleen: No splenomegaly or suspicious lesions. Adrenal glands: Thickened adrenal glands without measurable nodules, likely hypertrophy. Kidneys and ureters: Benign-appearing renal cyst(s) and/or probable cyst(s). No renal masses or hydronephrosis bilaterally. Symmetric edema around the kidneys without obstruction; could relate to medical renal disease. Stomach and bowel: Greatly improved appearance of small bowel. A few scattered mid small bowel air-fluid levels. Mild fluid-filled distension of distal small bowel loops at 35 mm. No wall thickening or focal transition point however. No acute pathology in colon. Appendix: No evidence of appendicitis. Intraperitoneal space: Trace edema in the paracolic gutters. No measurable intraperitoneal free fluid. No abscess or free air. Vasculature: Atherosclerosis. No aortic aneurysm. Lymph nodes: No significantly enlarged lymph nodes. Urinary bladder: Severe probable chronic outlet obstructive changes of the urinary bladder. Reproductive: Unremarkable as visualized. Bones/joints: No acute fracture or subluxation. Soft tissues: No suspicious lesions. IMPRESSION: 1. Greatly improved appearance of small bowel. Minor distal small bowel ileus or dysmotility without mechanical obstruction. 2. Incidental findings as described. Dictated and Authenticated by: Juliet Judd MD. Orderin [facility]. Ruben Clifton MD
--- NOTE | 2025-01-14 23:14 | HPE_ITS ---
Date of service: 01/14/25 Time of Service: 23:15 Assessment and Plan Assessment and plan (1) HCAP (healthcare-associated pneumonia): Start date: 01/14/25 Status: Acute Assessment and plan: This is a 69-year-old gentleman recently hospitalized for small bowel infarction and small left lower lobe pneumonia now with multilobar pneumonia which is hospital-acquired. He does not have a fever but does have a markedly elevated WBC which is recurrent in this patient. He will be admitted for IV therapy including cefepime, vancomycin and doxycycline. His current medical therapy will be continued. He is a full code. (2) Recurrent pneumonia: Start date: 01/14/25 Status: Acute Assessment and plan: Hospital-acquired pneumonia with treatment as above. Follow-up imaging as needed. Patient is not requiring oxygen at this time. (3) COPD (chronic obstructive pulmonary disease): Status: Chronic Assessment and plan: Continue inhaler therapy with pulmonary toilet as needed. (4) Non-insulin dependent type 2 diabetes mellitus: Status: Chronic Assessment and plan: Patient will have glucometers before meals and at bedtime with sensitive sliding scale short acting insulin coverage while in the hospital. Hold outpatient medical therapy including metformin. Patient will not be replaced on prednisone which may exacerbate his hyperglycemia. (5) Hypertension: Status: Chronic Assessment and plan: Continue chronic outpatient medical therapy. (6) GERD (gastroesophageal reflux disease): Status: Chronic Assessment and plan: Continue outpatient PPI. He also is on sulcal fate with recent upper GI bleed. (7) Schizo affective schizophrenia: Status: Chronic Assessment and plan: Continue outpatient medical therapy. Patient is stable but is on multiple antipsychotics with side effects when using conjunction. Watch for complications. History of Present Illness History of Present Illness Chief Complaint: Weakness and notation of altered mental status at residential. Narrative: This is a 69-year-old male patient who recently was hospitalized for small bowel obstruction and did have COPD and a small lower lobe pneumonia at that time of hospitalization. His main progression under that hospital stay was small bowel obstruction with abdominal distention and coffee-ground emesis and he was placed on a PPI along with comfort with an NG tube not requiring surgical intervention or transfusion. Since discharge back to the residential he has not been eating or drinking well and has had some mild altered mental status according to caregivers. In the ED the patient was evaluated and found to have multilobar pneumonia with a return of his markedly elevated WBC this is been a problem in the past. He was not hypoxic and was initiated on broad-spectrum antibiotic therapy because of hospital-acquired pneumonia with recent hospitalization and emesis with aspiration recovered by antibiotic coverage. Patient was otherwise stable with review of labs. He had no signs of abdominal obstruction with improvement of his CT of the abdomen. Patient will be admitted for IV antibiotic therapy for hospital-acquired pneumonia and expects to return to the residential. He is a full code. Review of Systems Narrative: 13 point review of systems otherwise unrevealing or stable. PFSH All Active Problems Anemia (Chronic) Gastroenteritis (Acute) Acute exacerbation of chronic obstructive airways disease (Acute) Pulmonary nodule (Acute) Asthma-COPD overlap syndrome (Acute) Recurrent pneumonia (Acute) Pain (Chronic) Community acquired pneumonia (Acute) Pneumonia (Acute) H/O: CVA (cerebrovascular accident) (Acute) Diabetes mellitus (Chronic) HCAP (healthcare-associated pneumonia) (Acute) UTI (urinary tract infection) (Acute) Acute pyelonephritis (Acute) COPD (chronic obstructive pulmonary disease) (Chronic) Constipation, chronic (Chronic) Discharge planning issues (Acute) Schizo affective schizophrenia (Chronic) Non-insulin dependent type 2 diabetes mellitus (Chronic) Oropharyngeal dysphagia (Acute) Hypertension (Chronic) GERD (gastroesophageal reflux disease) (Chronic) Medical History Small bowel obstruction MSSA bacteremia Sepsis Acidosis, lactic [place] (acute kidney injury) Adrenal hyperplasia Pulmonary emboli Acute thrombosis of right basilic vein Complication associated with peripherally inserted central catheter (PICC) Normocytic anemia H/O schizophrenia Family History Mother No problems noted. Social History Smoking/Tobacco Use Status: Former Tobacco Use Quit Date: 09/30/99 Tobacco: How many years used: 43 Smoking risk assessment performed?: Yes Alcohol Intake: former Drug use: Occasionally Substance use type: does not use Housing: assisted living facility Do you feel safe at home: Yes Do you feel safe in your relationship?: Yes Additional Social history: UTAP Meds Allergies and Home Medications Allergies Allergy/AdvReac Type Severity Reaction Status Date / Time Macrolide Antibiotics Allergy Severe Other (See Verified 01/14/25 20:52 Comment) Home Medications ?Medication ?Instructions ?Recorded ?Confirmed ?Type ziprasidone HCl 80 mg capsule 80 - 160 mg PO DIRECTED 06/18/17 01/14/25 History (Geodon) calcium carbonate 500 mg (2.5 x 200 mg calcium (500 12/05/18 01/14/25 Rx mg)) PO TID PRN PRN #0 tabs cyanocobalamin (vitamin B-12) 500 1,000 mcg (2 x 500 mcg) PO DAILY 01/23/19 01/14/25 Rx mcg tablet (Vitamin B-12) #60 tabs docusate sodium 100 mg capsule 100 mg PO DAILY #30 caps 01/23/19 01/14/25 Rx (Colace) magnesium chloride 64 mg 64 mg PO BID #30 tabs 01/23/19 01/14/25 Rx (magnesium chloride) tablet,delayed release (Mag 64) multivitamin (Multiple Vitamins 1 tab PO DAILY #30 tabs 01/23/19 01/14/25 Rx tablet) pantoprazole 40 mg tablet,delayed 40 mg PO BID@0730,2000 #30 tabs 01/23/19 01/14/25 Rx release bupropion HCl 300 mg 24 hr tablet, 450 mg PO QAM 08/14/19 01/14/25 History extended release (Wellbutrin XL) ferrous gluconate 324 mg (38 mg 324 mg PO DAILY 08/14/19 01/14/25 History iron) tablet simvastatin 20 mg tablet 20 mg PO HS 08/14/19 01/14/25 History acetaminophen 650 mg 650 mg PO BID 04/21/20 01/14/25 History tablet,extended release (Tylenol Arthritis Pain) polyethylene glycol 3350 17 17 g PO DAILY PRN PRN 04/25/20 01/14/25 History gram/dose oral powder hydroxyzine pamoate 25 mg capsule 25 mg PO DAILY PRN PRN 10/17/20 01/14/25 History (Vistaril) lisinopril 2.5 mg tablet 2.5 mg PO DAILY 10/17/20 01/14/25 History glucosamine sulfate 500 1 tab PO TID 11/23/22 01/14/25 History mg-chondroitin 400 mg-msm 167 mg tablet clozapine 100 mg tablet (Clozaril) 200 - 375 mg PO DIRECTED 11/25/23 01/14/25 History celecoxib 100 mg capsule 100 mg PO BID 04/24/24 01/14/25 History clozapine 25 mg tablet 100 mg PO ONCE 04/24/24 01/14/25 History escitalopram oxalate 20 mg tablet 20 mg PO DAILY 04/24/24 01/14/25 History omega 3-dha 120 mg-epa 180 mg-fish 2 cap PO DAILY 04/24/24 01/14/25 History oil 600 mg capsule (Extreme [place]-3) umeclidinium 62.5 mcg-vilanterol See Rx Instructions .Route 06/10/24 01/14/25 Rx 25 mcg/actuation powdr for .COMPLEX #60 ea inhalation (Anoro Ellipta) folic acid 1 mg tablet 1 mg PO DAILY 01/08/25 01/14/25 History pioglitazone 30 mg tablet (Actos) 30 mg PO DAILY 01/08/25 01/14/25 History albuterol sulfate 90 mcg/actuation 2 puff inhalation Q6H PRN 01/09/25 01/14/25 History aerosol inhaler (Ventolin HFA) metformin 500 mg tablet 500 mg PO BID 01/09/25 01/14/25 History bupropion HCl 150 mg 24 hr tablet, 150 mg PO DAILY 01/11/25 01/14/25 History extended release polyethylene glycol 3350 17 gram 17 g PO BID #60 ea 01/12/25 01/14/25 Rx oral powder packet prednisone 20 mg tablet 40 mg (2 x 20 mg) PO DAILY 3 days 01/12/25 01/14/25 Rx #6 tabs sucralfate 1 gram tablet (Carafate) 1 g PO QACHS #120 tabs 01/12/25 01/14/25 Rx Exam Narrative Exam Narrative: General: Patient appears appropriate for age, in no acute distress, alert and oriented x 3 when awakened. He is moderately obese. HEENT: Normocephalic, eyes with pupils equal and reactive light symmetric, extraocular move intact and sclera anicteric. Oropharynx with dry mucosa and normal dentition. Neck: Supple without JVD. Back: Kyphotic without CVA tenderness. Lungs: Bronchovesicular breath sounds diffusely with fair aeration and coarse crackles without rhonchi. No focalizing rales. Diffuse slight expiratory wheeze with slight increased expiratory phase. Heart: Regular rate and rhythm with distant heart sounds. No appreciable murmur or gallop. Abdomen: Obese contour, soft to palpation without guarding or rebound. No tympany to percussion. Bowel sounds present all quadrants and decreased. Patient had no focal tenderness. No appreciated hepatosplenomegaly. Genitalia/rectal: Exam deferred. Extremities: Without clubbing, cyanosis or pitting edema. Fair capillary refill. Skin: Pale, warm and dry. Neuro: Cranial nerves II through XII grossly intact, no focal motor deficits and no tremor. Psych: Flattened affect with slow, slightly dysarthric speech but no abnormal thought processes. Remote and recent memory intact. Results Imaging Imaging Studies: Exam: CT Chest With Contrast; Diagnostic Exam date and time: 01/14/2025 21:35 Age: 69 years old Clinical indication: Other: Recent sbo, crackles in lungs, elevated wbc TECHNIQUE: Imaging protocol: Diagnostic computed tomography of the chest with contrast. 3D rendering (Not supervised by radiologist): MIP and/or 3D reconstructed images were created by the technologist. Contrast material: 350; Contrast volume: 100 ml; Contrast route: INTRAVENOUS (IV); COMPARISON: CT CHEST LUNG CANCER SCREEN 12/09/2023 13:27 FINDINGS: Lungs: New moderate right upper, middle and right upper lobe, new mild left lower lobe patchy airspace and ground-glass opacities. The lungs appear hyperinflated. Mild right-sided pulmonary volume loss is suspected, likely chronic. Pleural spaces: New trace right pleural fluid. No pneumothorax. Heart: Trace pericardial fluid appears likely physiologic. No significant cardiomegaly. Lymph nodes: Benign-appearing calcified mediastinal lymph nodes. No significant adenopathy is seen. Vasculature: No aortic aneurysm. Bones/joints: No acute left rib deformities. No acute fracture or subluxation. Soft tissues: Right gynecomastia. IMPRESSION: 1. New moderate multilobar pneumonia. 2. New trace right pleural fluid. 3. Incidental findings as described. PROCEDURE INFORMATION: Exam: CT Abdomen And Pelvis With Contrast Exam date and time: 01/14/2025 21:35 Age: 69 years old Clinical indication: Other: Recent sbo, crackles in lungs, elevated wbc TECHNIQUE: Imaging protocol: Computed tomography of the abdomen and pelvis with contrast. 3D rendering (Not supervised by radiologist): MIP and/or 3D reconstructed images were created by the technologist. Contrast material: 350; Contrast volume: 100 ml; Contrast route: INTRAVENOUS (IV); COMPARISON: CT ABDOMEN PELVIS W 01/08/2025 23:48 FINDINGS: Liver: No mass. Gallbladder and biliary ducts: No calcified stones. No gross ductal dilation. Pancreas: No ductal dilation. No mass . Spleen: No splenomegaly or suspicious lesions. Adrenal glands: Thickened adrenal glands without measurable nodules, likely hypertrophy. Kidneys and ureters: Benign-appearing renal cyst(s) and/or probable cyst(s). No renal masses or hydronephrosis bilaterally. Symmetric edema around the kidneys without obstruction; could relate to medical renal disease. Stomach and bowel: Greatly improved appearance of small bowel. A few scattered mid small bowel air-fluid levels. Mild fluid-filled distension of distal small bowel loops at 35 mm. No wall thickening or focal transition point however. No acute pathology in colon. Appendix: No evidence of appendicitis. Intraperitoneal space: Trace edema in the paracolic gutters. No measurable intraperitoneal free fluid. No abscess or free air. Vasculature: Atherosclerosis. No aortic aneurysm. Lymph nodes: No significantly enlarged lymph nodes. Urinary bladder: Severe probable chronic outlet obstructive changes of the urinary bladder. Reproductive: Unremarkable as visualized. Bones/joints: No acute fracture or subluxation. Soft tissues: No suspicious lesions. IMPRESSION: 1. Greatly improved appearance of small bowel. Minor distal small bowel ileus or dysmotility without mechanical obstruction. 2. Incidental findings as described. He needs an [facility] 01/14/25 20:17 01/14/25 20:17 Labs: Laboratory Results - last 24 hr 01/14/25 01/14/25 01/14/25 20:17 21:18 21:26 WBC 34.55 H* RBC 3.11 L Hgb 9.8 L Hct 30.2 L MCV 97 H MCH 31.5 MCHC 32.5 RDW 13.1 Plt Count 252 MPV 10.0 Immature Gran % 2.4 Neutrophils % 85.0 Band Neutrophils % 3 Lymphocytes % 3.0 Atypical Lymphs % 1 Monocytes % 6.0 Eosinophils % 0.0 Basophils % 0.0 Myelocytes % 1 Promyelocytes % 1 Nucleated RBC % 0.0 Absolute Neutrophils 30.40 H Absolute Lymphocytes 1.38 Absolute Monocytes 2.07 H Absolute Eosinophils 0.00 Absolute Basophils 0.00 RBC Morphology Normal PT 11.4 H INR 1.1 VBG Lactate 1.9 Sodium 137 Potassium 4.0 Chloride 99 Carbon Dioxide 26.9 Anion Gap 11.1 H BUN 16 Creatinine 1.3 Est GFR (CKD-EPI 2020) 58.73 Glucose 210 H Calcium 8.8 Magnesium 1.8 Total Bilirubin 0.3 AST 30 ALT 29 Alkaline Phosphatase 74 Troponin I 8 9 Total Protein 6.3 L Albumin 2.8 L Lipase 12 Urine Color Dark Yellow Urine Clarity Clear Urine pH 6.0 Ur Specific [place] 1.025 Urine Protein 100 H Urine Ketones Trace H Urine Blood Negative Urine Nitrite Negative Urine Bilirubin Small H Urine Urobilinogen 0.2 Ur Leukocyte Esterase Negative Urine RBC 0-2 Urine WBC 0-2 Ur Epithelial Cells Negative Urine Crystals Negative Urine Bacteria Few Urine Casts 0-2 Hyaline Urine Mucus Trace Ur Culture Indicated? No Urine Glucose 250 H ABO/Rh A Positive Antibody Screen NEGATIVE 01/14/25 23:13 WBC RBC Hgb Hct MCV MCH MCHC RDW Plt Count MPV Immature Gran % Neutrophils % Band Neutrophils % Lymphocytes % Atypical Lymphs % Monocytes % Eosinophils % Basophils % Myelocytes % Promyelocytes % Nucleated RBC % Absolute Neutrophils Absolute Lymphocytes Absolute Monocytes Absolute Eosinophils Absolute Basophils RBC Morphology PT INR VBG Lactate Sodium Potassium Chloride Carbon Dioxide Anion Gap BUN Creatinine Est GFR (CKD-EPI 2020) Glucose Calcium Magnesium Total Bilirubin AST ALT Alkaline Phosphatase Troponin I Cancelled Total Protein Albumin Lipase Urine Color Urine Clarity Urine pH Ur Specific [place] Urine Protein Urine Ketones Urine Blood Urine Nitrite Urine Bilirubin Urine Urobilinogen Ur Leukocyte Esterase Urine RBC Urine WBC Ur Epithelial Cells Urine Crystals Urine Bacteria Urine Casts Urine Mucus Ur Culture Indicated? Urine Glucose ABO/Rh Antibody Screen Last Vital Signs Temp 36.9 C 01/14/25 20:24 Pulse 89 01/14/25 20:24 Resp 18 01/14/25 20:44 BP 135/69 01/14/25 20:24 Pulse Ox 93 01/14/25 20:24 Time Spent Time spent with Patient: >75 minutes Time was spent: preparing to see the patient(eg.review tests), obtaining and/or reviewing separately otained hiistory, ordering medications,tests, procedures, indepentently interpreting results and care coordination
[2025-01-15] VITALS (37 sets, daily range): BP systolic 112–164; BP diastolic 63–82; PULSE 79–95; RESP 14–28; TEMP 36.5–36.9; O2SAT 91–96
[2025-01-15] MEDS: CEFEPIME 2 GM in Normal Saline 100 ML IVPB ×3 (00:01→16:15)
[2025-01-15 01:22] LABS: COVID-19 PCR Negative (Negative); Influenza A PCR Negative (Negative); Influenza B PCR Negative (Negative); RSV PCR Negative (Negative)
[2025-01-15 01:29] LABS: Source Nasopharynx
--- NOTE | 2025-01-15 04:13 | W.PC.ACHO ---
Registration Status: Primary Language: Preferred Language: ED Information & Data Chief Complaint AMS/LOC 01/14/25 20:44 Chief Complaint AMS/LOC 01/14/25 20:24 Triage Note BIBA for weakness and 01/14/25 20:24 slurred speech, AMS. Pt recently discharged from here with SBO and GI bleed. Pt comes with no complaints of pain or weakness. the pt stated that he has been having loose stools. Pt walks with a walker, able to stand and pivot to bed. Medical / Surgical History (Last Reviewed 01/14/25 @ 23:15 by Skyler Del Real) Small bowel obstruction MSSA bacteremia Sepsis Acidosis, lactic [place] (acute kidney injury) Adrenal hyperplasia Pulmonary emboli Acute thrombosis of right basilic vein Complication associated with peripherally inserted central catheter (PICC) Normocytic anemia H/O schizophrenia Most Recent Vital Signs Temperature 36.5 C 01/15/25 03:44 Temperature Source Temporal Artery Scan 01/14/25 20:24 Pulse 84 01/15/25 03:44 Pulse Rhythm Regular 01/15/25 03:44 Respiratory Rate 17 01/15/25 03:44 Respiratory Effort Normal, Non-Labored 01/15/25 03:44 Respiratory Depth Normal 01/15/25 03:44 Respiratory Pattern Normal 01/15/25 03:44 Blood Pressure 148/82 H 01/15/25 03:44 Blood Pressure Position Supine 01/14/25 20:24 Pulse Oximetry 93 01/15/25 03:44 Oxygen Delivery Method Room Air 01/15/25 03:44 Oxygen Flow Rate 0 01/15/25 03:44 Pain Level 0 01/15/25 03:44 Allergies Macrolide Antibiotics Allergy (Severe, Verified 01/14/25 20:52) Other (See Comment) Unknown IV IV Catheter Type [Left Saline Lock Antecubital] IV Catheter Gauge [Left 18 Antecubital] Diet Orders Category Date Time Status Diabetes Consistent CHO/Heart Healthy [DIET] Nutrition 01/15/25 Breakfast Active Diagnostics 01/15/25 01/15/25 01/14/25 Range/Units 05:35 00:40 23:13 WBC Pending (4.4-10.8) 10^3/uL RBC Pending (4.36-5.78) 10^6/uL Hgb Pending (13.5-17.5) g/dL Hct Pending (40.0-50.0) % MCV Pending (80-95) fL MCH Pending (27.0-33.0) pg MCHC Pending (32.0-36.0) % RDW Pending (11.8-14.1) % Plt Count Pending (130-400) 10^3/uL MPV Pending (8.0-11.0) fL Immature Gran % % Neutrophils % % Band Neutrophils % % Lymphocytes % % Atypical Lymphs % % Monocytes % % Eosinophils % % Basophils % % Myelocytes % Promyelocytes % Nucleated RBC % (0.0-0.3) % Absolute Neutrophils (1.2-6.7) 10^3/uL Absolute Lymphocytes (1.2-3.4) 10^3/uL Absolute Monocytes (0.1-0.8) 10^3/uL Absolute Eosinophils (0.0-0.7) 10^3/uL Absolute Basophils (0.0-0.2) 10^3/uL RBC Morphology PT (9.1-11.1) sec INR (0.9-1.1) VBG Lactate (<or=2.0) mmol/L Sodium Pending (136-145) mmol/L Potassium Pending (3.5-5.1) mmol/L Chloride Pending (98-107) mmol/L Carbon Dioxide Pending (21.0-32.0) mmol/L Anion Gap Pending (3-11) mmol/L BUN Pending (7-18) mg/dL Creatinine Pending (0.70-1.30) mg/dL Est GFR (CKD-EPI 2020) Pending (mL/min/1.73m2) Glucose Pending (74-106) mg/dL Calcium Pending (8.5-10.1) mg/dL Magnesium Pending (1.8-2.4) mg/dL Total Bilirubin Pending (0.2-1.0) mg/dL AST Pending (15-37) U/L ALT Pending (16-63) U/L Alkaline Phosphatase Pending (46-116) U/L Troponin I Cancelled (<or=76) ng/L Total Protein Pending (6.4-8.2) g/dL Albumin Pending (3.4-5.0) g/dL Lipase (<78) U/L Urine Color (Yellow) Urine Clarity (Clear) Urine pH (5-8) Ur Specific [place] (1.005-1.025) Urine Protein (Neg-Trace) mg/dL Urine Ketones (Negative) mg/dL Urine Blood (Negative) Urine Nitrite (Negative) Urine Bilirubin (Negative) Urine Urobilinogen (Up to 0.2) mg/dL Ur Leukocyte Esterase (Negative) Urine RBC (0-2) HPF Urine WBC (0-5) HPF Ur Epithelial Cells (Negative) HPF Urine Crystals (Negative) HPF Urine Bacteria (Negative) HPF Urine Casts (Negative) LPF Urine Mucus (Negative) Ur Culture Indicated? Urine Glucose (Negative) mg/dL COVID-19 Source Nasopharynx SARS-CoV-2 (PCR) Negative (Negative) Influenza Type A (PCR) Negative (Negative) Influenza Type B (PCR) Negative (Negative) RSV (PCR) Negative (Negative) ABO/Rh Antibody Screen 01/14/25 01/14/25 01/14/25 Range/Units 21:26 21:18 20:17 WBC 34.55 H* (4.4-10.8) 10^3/uL RBC 3.11 L (4.36-5.78) 10^6/uL Hgb 9.8 L (13.5-17.5) g/dL Hct 30.2 L (40.0-50.0) % MCV 97 H (80-95) fL MCH 31.5 (27.0-33.0) pg MCHC 32.5 (32.0-36.0) % RDW 13.1 (11.8-14.1) % Plt Count 252 (130-400) 10^3/uL MPV 10.0 (8.0-11.0) fL Immature Gran % 2.4 % Neutrophils % 85.0 % Band Neutrophils % 3 % Lymphocytes % 3.0 % Atypical Lymphs % 1 % Monocytes % 6.0 % Eosinophils % 0.0 % Basophils % 0.0 % Myelocytes % 1 Promyelocytes % 1 Nucleated RBC % 0.0 (0.0-0.3) % Absolute Neutrophils 30.40 H (1.2-6.7) 10^3/uL Absolute Lymphocytes 1.38 (1.2-3.4) 10^3/uL Absolute Monocytes 2.07 H (0.1-0.8) 10^3/uL Absolute Eosinophils 0.00 (0.0-0.7) 10^3/uL Absolute Basophils 0.00 (0.0-0.2) 10^3/uL RBC Morphology Normal PT 11.4 H (9.1-11.1) sec INR 1.1 (0.9-1.1) VBG Lactate 1.9 (<or=2.0) mmol/L Sodium 137 (136-145) mmol/L Potassium 4.0 (3.5-5.1) mmol/L Chloride 99 (98-107) mmol/L Carbon Dioxide 26.9 (21.0-32.0) mmol/L Anion Gap 11.1 H (3-11) mmol/L BUN 16 (7-18) mg/dL Creatinine 1.3 (0.70-1.30) mg/dL Est GFR (CKD-EPI 2020) 58.73 (mL/min/1.73m2) Glucose 210 H (74-106) mg/dL Calcium 8.8 (8.5-10.1) mg/dL Magnesium 1.8 (1.8-2.4) mg/dL Total Bilirubin 0.3 (0.2-1.0) mg/dL AST 30 (15-37) U/L ALT 29 (16-63) U/L Alkaline Phosphatase 74 (46-116) U/L Troponin I 9 8 (<or=76) ng/L Total Protein 6.3 L (6.4-8.2) g/dL Albumin 2.8 L (3.4-5.0) g/dL Lipase 12 (<78) U/L Urine Color Dark Yellow (Yellow) Urine Clarity Clear (Clear) Urine pH 6.0 (5-8) Ur Specific [place] 1.025 (1.005-1.025) Urine Protein 100 H (Neg-Trace) mg/dL Urine Ketones Trace H (Negative) mg/dL Urine Blood Negative (Negative) Urine Nitrite Negative (Negative) Urine Bilirubin Small H (Negative) Urine Urobilinogen 0.2 (Up to 0.2) mg/dL Ur Leukocyte Esterase Negative (Negative) Urine RBC 0-2 (0-2) HPF Urine WBC 0-2 (0-5) HPF Ur Epithelial Cells Negative (Negative) HPF Urine Crystals Negative (Negative) HPF Urine Bacteria Few (Negative) HPF Urine Casts 0-2 Hyaline (Negative) LPF Urine Mucus Trace (Negative) Ur Culture Indicated? No Urine Glucose 250 H (Negative) mg/dL COVID-19 Source SARS-CoV-2 (PCR) (Negative) Influenza Type A (PCR) (Negative) Influenza Type B (PCR) (Negative) RSV (PCR) (Negative) ABO/Rh A Positive Antibody Screen NEGATIVE 01/14/25 21:26 Blood Culture - Pending Blood 01/14/25 21:18 Blood Culture - Pending Blood Intake and Output - 24 Hour Total 01/14/25 19:57 thru 01/15/25 03:44 Intake Total 700 Output Total 275 Balance 425 Weight 78.6 kg Intake: IV 700 Output: Urine 275 Other: Urine Color Yellow Urine Appearance Clear Urine Odor None Falls Risk Assessment History of Falls No History 01/15/25 03:44 Contributing Factors No Factors 01/15/25 03:44 Ambulatory Aids Independent 01/15/25 03:44 Tubes/Lines With any additional score 01/15/25 03:44 Gait Evaluation W/any additional score 01/15/25 03:44 Cognition No cognitive impairment 01/15/25 03:44 Fall Total Score 40 01/15/25 03:44 Level of Risk Moderate Risk 01/15/25 03:44 Problems (Last Reviewed 01/14/25 @ 23:15 by Skyler Del Real) Recurrent pneumonia (Acute) HCAP (healthcare-associated pneumonia) (Acute) COPD (chronic obstructive pulmonary disease) (Chronic) Schizo affective schizophrenia (Chronic) Non-insulin dependent type 2 diabetes mellitus (Chronic) Hypertension (Chronic) GERD (gastroesophageal reflux disease) (Chronic) v v v v v v v v v Sending and/or Receiving Nurses: Please use comment section below to note any information pertinent to the patient hand-off not included above. Information / Comments: Report received from: Brett- Patient is a 69 year old male. He is being treated for PNA. He is alert and oriented x 3. very peasant. He has a 18 in his left AC. He has rec'd multiple antibiotics. Is on the bedpan now. He uses the bedside urinal. He lives in a half-way.
[2025-01-15 07:00] LABS: HCT 29.1 % (40.0-50.0); HGB 9.4 g/dL (13.5-17.5); MCH 31.5 pg (27.0-33.0); MCHC 32.3 % (32.0-36.0); MCV 98 fL (80-95); MPV 10.2 fL (8.0-11.0); Platelet Count 252 10^3/uL (130-400); RBC 2.98 10^6/uL (4.36-5.78); RDW 13.2 % (11.8-14.1); RDW-SD 46.6 fL
[2025-01-15 07:03] LABS: WBC 29.85 10^3/uL (4.4-10.8)
[2025-01-15 07:46] LABS: ALT 24 U/L (16-63); AST 19 U/L (15-37); Albumin 2.5 g/dL (3.4-5.0); Alkaline Phosphatase 78 U/L (46-116); Anion Gap 10.2 mmol/L (3-11); BUN 13 mg/dL (7-18); Bilirubin, Total 0.4 mg/dL (0.2-1.0); CO2 27.8 mmol/L (21.0-32.0); CREATININE 0.9 mg/dL (0.70-1.30); Calcium 8.7 mg/dL (8.5-10.1); Chloride 106 mmol/L (98-107); Estimated GFR 91.31 (mL/min/1.73m2); Glucose 101 mg/dL (74-106); Magnesium 1.9 mg/dL (1.8-2.4); Potassium 3.3 mmol/L (3.5-5.1); Sodium 144 mmol/L (136-145); Total Protein 5.8 g/dL (6.4-8.2)
[2025-01-15] MEDS: Polyethylene Glycol 3350 17 GM PACKET PO ×2 (08:00→21:19)
[2025-01-15] MEDS: Folic Acid 1 MG TAB PO (08:00)
[2025-01-15] MEDS: Ferrous Gluconate 324 MG TAB PO (08:00)
[2025-01-15] MEDS: Enoxaparin 40 MG/0.4 ML SYR SC (08:00)
[2025-01-15] MEDS: Magnesium Chloride 64 MG TABCR PO ×2 (08:00→21:19)
[2025-01-15] MEDS: Pantoprazole 40 MG TABCR PO ×2 (08:00→21:17)
[2025-01-15] MEDS: Sucralfate 1 GM TAB PO ×4 (08:00→21:17)
[2025-01-15] MEDS: buPROPion-XL 150 MG TABCR 450 MG PO (08:00)
[2025-01-15] MEDS: Lisinopril 2.5 MG TAB PO (08:00)
[2025-01-15] MEDS: Acetaminophen 325 MG TAB 650 MG PO ×2 (08:00→21:18)
[2025-01-15] MEDS: Docusate Sodium 100 MG CAP PO (08:00)
[2025-01-15] MEDS: Cyanocobalamin 500 MCG TAB 1000 MCG PO (08:00)
[2025-01-15] MEDS: Escitalopram 20 MG TAB PO (08:00)
[2025-01-15] MEDS: Tiotropium/Olodaterol 10 PUFF INHALER 2 PUFF IH (08:27)
--- NOTE | 2025-01-15 08:44 | PDOC.CMIN ---
Date of service: 01/15/25 Time of Service: 08:45 Care Management Initial Assmt Initial Assessment Reason for Hospitalization: hospital acquired pneumonia Functional Status/Living Situation Patient Presentation: Elias was just discharged on 01/12/25 for small bowel obstruction and LLL pneumonia. He presented to the ED, from [facility], last night with c/o generalized weakness and altered mental status. He was found to have multilobar pneumonia. Elias was sitting up in bed, just starting his lunch, when CM met with him today. Elias was very pleasant. He stated that he likes it here and that the food is very good, and he would like to stay for the weekend. He stated that he was feeling better, and he looked well. CM has requested a PT consult. Town of Residence: [place] at [facility] assisted living facility Resides with: Other ([facility]) Significant Other/Family: Local (2 sisters, Sophia and Sarai, visit often) Caregiver/Guardian: Joycelyn and Janes Branch - owners of [facility]. Natural Supports: staff and residents at [facility] He also has 2 sisters that he speaks with often. 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 Elias likes sports and the outdoors. Medications Medication Management: No Issues/Barriers identified Physical Functioning/Mobility Assistive Device: FWW Advance Directives Advance Directives: Do you have an Advance Directive: Y 12/25/18 01:56 AD On File at [facility]: Y 12/25/18 01:56 Date Asked 12/29/18 12/20/24 11:58 AD Date Reviewed 01/14/25 01/14/25 20:19 COLST On File at [facility] No 01/08/25 19:31 COLST Date Scanned Code Status Resuscitation Status Full Code Insurance Coverage/Financial Issues Insurance: Medicare Part A & B Medicaid [facility] Care Team Visit Care Team Role Provider Type Esa Williamson MD MD [facility] STAFF PHYSICIAN Columba Carter Primary Care Provider NURSE PRACTITIONER Elodia Myers MD Emergency Provider [facility] STAFF PHYSICIAN Skyler Del Real Admit Provider NON-[facility] STAFF PHYSICIAN Attending Provider Discharge Potential Discharge Needs: PT Evaluation and PCP F/U Appt Anticipated Barriers to Discharge: None Identified Patient/Family Education Needs: Review discharge instructions, discuss Ask Me Three Transportation: Facility Transport Plan: Anticipate that Elias will discharge back to [facility] once medically stable. He will need new orders for HH PT, as he was never admitted after his last hospitalization. He will f/u with his PCP and continue per his plan of care. If Elias is discharged prior to 01/18, he will transport via [facility] transport. Contact is Joycelyn Branch [phone]. If 01/18 - 01/25, he will require RCT private car, and the contact is staff at [facility] [phone] CM will continue to follow. Social Determinants of Health Screening Will the Patient Participate in the Screening?: Unable to obtain [facility] All Active Problems Anemia (Chronic) Gastroenteritis (Acute) Acute exacerbation of chronic obstructive airways disease (Acute) Pulmonary nodule (Acute) Asthma-COPD overlap syndrome (Acute) Recurrent pneumonia (Acute) Pain (Chronic) Community acquired pneumonia (Acute) Pneumonia (Acute) H/O: CVA (cerebrovascular accident) (Acute) Diabetes mellitus (Chronic) HCAP (healthcare-associated pneumonia) (Acute) UTI (urinary tract infection) (Acute) Acute pyelonephritis (Acute) COPD (chronic obstructive pulmonary disease) (Chronic) Constipation, chronic (Chronic) Discharge planning issues (Acute) Schizo affective schizophrenia (Chronic) Non-insulin dependent type 2 diabetes mellitus (Chronic) Oropharyngeal dysphagia (Acute) Hypertension (Chronic) GERD (gastroesophageal reflux disease) (Chronic) Medical History Small bowel obstruction MSSA bacteremia Sepsis Acidosis, lactic DALLAS (acute kidney injury) Adrenal hyperplasia Pulmonary emboli Acute thrombosis of right basilic vein Complication associated with peripherally inserted central catheter (PICC) Normocytic anemia H/O schizophrenia Family History Mother No problems noted. Social History (Reviewed 01/15/25 @ 05:56 by Skyler Nguyen Smoking/Tobacco Use Status: Former Tobacco Use Quit Date: 09/30/99 Tobacco: How many years used: 43 Smoking risk assessment performed?: Yes Alcohol Intake: former Drug use: Occasionally Substance use type: does not use Housing: assisted living facility Do you feel safe at home: Yes Do you feel safe in your relationship?: Yes Additional Social history: [facility] Readmission Within the Past 30 Days Yes or No: Yes Date of First Admission Date of 1st Admission: 01/09/25 Date of this Admission This admission was: Through ED Office Visit Since 1st Admission Have you seen your PCP in the office since discharge?: No Describe barriers for scheduling or getting an appointment: Elias is unsure if an appointment was made. Speicalist Appointments Have you seen any other specialist since your 1st Admission?: No I. Interview patient and/or Family Did you feel ready for discharge when you left the last time: Yes Were services received that you thought were set up on disch: No Why weren't services received?: HH PT. He wasn't home long enough for admission Did you call your physician beore you came to the ED?: No If the patient had a VNA ordered Did the patient have a VNA order?: Yes Did you call the VNA before you came?: No If the patient came from Ext. Facility Call the Facility to discuss the patient's admission: Providers stated that he seemed fine until he didn't. ED visits How many ED visits in the past 12 months: 2 Assessment for Readmission Summary of readmission circumstances, based upon interviews: Does appear that perhaps Elias was discharged too early Anticipated HH Services Anticipated HH Services at Discharge [facility] Needed, PT Following Provider: Emma.
[2025-01-15] MEDS: Multivitamin TAB 1 TAB PO (09:04)
[2025-01-15] MEDS: Normal Saline Flush 10 ML SYR IVP ×2 (10:14→21:20)
[2025-01-15] MEDS: DOXYCYCLINE 100 MG in Normal Saline 100 ML IVPB ×2 (11:57)
[2025-01-15] MEDS: Insulin Aspart 300 UNITS/3 ML PEN SC ×3 (12:44→21:23)
--- NOTE | 2025-01-15 14:09 | PGE_ITS ---
Date of Service Date of service: 01/15/25 Time of Service: 14:09 Assessment and Plan Assessment and plan (1) HCAP (healthcare-associated pneumonia): Start date: 01/14/25 Status: Acute Assessment and plan: This is a 69-year-old gentleman recently hospitalized for small bowel infarction and small left lower lobe pneumonia now with multilobar pneumonia which is hospital-acquired. He does not have a fever but does have a markedly elevated WBC which is recurrent in this patient. He will be admitted for IV therapy including cefepime, vancomycin and doxycycline. His current medical therapy will be continued. He is a full code. 01/15/25 Pt wbc is decreasing but still elevated. C/W Cefepime/doxycycline/vancomycin. Recheck labs in am. Await culture results (2) Recurrent pneumonia: Start date: 01/14/25 Status: Acute Assessment and plan: Hospital-acquired pneumonia with treatment as above. Follow-up imaging as needed. Patient is not requiring oxygen at this time. (3) COPD (chronic obstructive pulmonary disease): Status: Chronic Assessment and plan: Continue inhaler therapy with pulmonary toilet as needed. (4) Non-insulin dependent type 2 diabetes mellitus: Status: Chronic Assessment and plan: Patient will have glucometers before meals and at bedtime with sensitive sliding scale short acting insulin coverage while in the hospital. Hold outpatient medical therapy including metformin. Patient will not be replaced on prednisone which may exacerbate his hyperglycemia. (5) Hypertension: Status: Chronic Assessment and plan: Continue chronic outpatient medical therapy. (6) GERD (gastroesophageal reflux disease): Status: Chronic Assessment and plan: Continue outpatient PPI. He also is on sulcal fate with recent upper GI bleed. (7) Schizo affective schizophrenia: Status: Chronic Assessment and plan: Continue outpatient medical therapy. Patient is stable but is on multiple antipsychotics with side effects when using conjunction. Watch for complications. Subjective Subjective Interval history since last seen: Pt seen and examined this afternoon. Pt denies f/c/n/v but does endorse continued weakness. POC d/w pt this afternoon and with bedside nurse during MDR this am. Exam Narrative Exam Narrative: General: Patient appears appropriate for age, in no acute distress, alert and oriented x 3 when awakened. He is moderately obese. HEENT: Normocephalic, eyes with pupils equal and reactive light symmetric, extraocular move intact and sclera anicteric. Oropharynx with dry mucosa and normal dentition. Neck: Supple without JVD. Back: Kyphotic without CVA tenderness. Lungs: bilat wheeze worse with expiration. Speaking in complete history sentences Heart: Regular rate and rhythm with distant heart sounds. No appreciable murmur or gallop. Abdomen: Obese contour, soft to palpation without guarding or rebound. No tympany to percussion. Bowel sounds present all quadrants and decreased. Patient had no focal tenderness. No appreciated hepatosplenomegaly. Genitalia/rectal: Exam deferred. Extremities: Without clubbing, cyanosis or pitting edema. Fair capillary refill. Skin: Pale, warm and dry. Neuro: Cranial nerves II through XII grossly intact, no focal motor deficits and no tremor. Psych: Flattened affect with slow, slightly dysarthric speech but no abnormal thought processes. Remote and recent memory intact. Objective Last Vital Signs Temp 36.6 C 01/15/25 11:35 Pulse 95 H 01/15/25 11:35 Resp 14 01/15/25 11:35 BP 115/73 01/15/25 11:35 Pulse Ox 92 01/15/25 11:35 Laboratory Results - last 24 hr 01/14/25 01/14/25 01/14/25 20:17 21:18 21:26 WBC 34.55 H* RBC 3.11 L Hgb 9.8 L Hct 30.2 L MCV 97 H MCH 31.5 MCHC 32.5 RDW 13.1 Plt Count 252 MPV 10.0 Immature Gran % 2.4 Neutrophils % 85.0 Band Neutrophils % 3 Lymphocytes % 3.0 Atypical Lymphs % 1 Monocytes % 6.0 Eosinophils % 0.0 Basophils % 0.0 Myelocytes % 1 Promyelocytes % 1 Nucleated RBC % 0.0 Absolute Neutrophils 30.40 H Absolute Lymphocytes 1.38 Absolute Monocytes 2.07 H Absolute Eosinophils 0.00 Absolute Basophils 0.00 RBC Morphology Normal PT 11.4 H INR 1.1 VBG Lactate 1.9 Sodium 137 Potassium 4.0 Chloride 99 Carbon Dioxide 26.9 Anion Gap 11.1 H BUN 16 Creatinine 1.3 Est GFR (CKD-EPI 2020) 58.73 Glucose 210 H Calcium 8.8 Magnesium 1.8 Total Bilirubin 0.3 AST 30 ALT 29 Alkaline Phosphatase 74 Troponin I 8 9 Total Protein 6.3 L Albumin 2.8 L Lipase 12 Urine Color Dark Yellow Urine Clarity Clear Urine pH 6.0 Ur Specific [place] 1.025 Urine Protein 100 H Urine Ketones Trace H Urine Blood Negative Urine Nitrite Negative Urine Bilirubin Small H Urine Urobilinogen 0.2 Ur Leukocyte Esterase Negative Urine RBC 0-2 Urine WBC 0-2 Ur Epithelial Cells Negative Urine Crystals Negative Urine Bacteria Few Urine Casts 0-2 Hyaline Urine Mucus Trace Ur Culture Indicated? No Urine Glucose 250 H COVID-19 Source SARS-CoV-2 (PCR) Influenza Type A (PCR) Influenza Type B (PCR) RSV (PCR) ABO/Rh A Positive Antibody Screen NEGATIVE 01/14/25 01/15/25 01/15/25 23:13 00:40 06:04 WBC 29.85 H* RBC 2.98 L Hgb 9.4 L Hct 29.1 L MCV 98 H MCH 31.5 MCHC 32.3 RDW 13.2 Plt Count 252 MPV 10.2 Immature Gran % Neutrophils % Band Neutrophils % Lymphocytes % Atypical Lymphs % Monocytes % Eosinophils % Basophils % Myelocytes % Promyelocytes % Nucleated RBC % Absolute Neutrophils Absolute Lymphocytes Absolute Monocytes Absolute Eosinophils Absolute Basophils RBC Morphology PT INR VBG Lactate Sodium 144 Potassium 3.3 L Chloride 106 Carbon Dioxide 27.8 Anion Gap 10.2 BUN 13 Creatinine 0.9 Est GFR (CKD-EPI 2020) 91.31 Glucose 101 Calcium 8.7 Magnesium 1.9 Total Bilirubin 0.4 AST 19 ALT 24 Alkaline Phosphatase 78 Troponin I Cancelled Total Protein 5.8 L Albumin 2.5 L Lipase Urine Color Urine Clarity Urine pH Ur Specific [place] Urine Protein Urine Ketones Urine Blood Urine Nitrite Urine Bilirubin Urine Urobilinogen Ur Leukocyte Esterase Urine RBC Urine WBC Ur Epithelial Cells Urine Crystals Urine Bacteria Urine Casts Urine Mucus Ur Culture Indicated? Urine Glucose COVID-19 Source Nasopharynx SARS-CoV-2 (PCR) Negative Influenza Type A (PCR) Negative Influenza Type B (PCR) Negative RSV (PCR) Negative ABO/Rh Antibody Screen Time Spent with Patient Time Spent with Patient: 25-34 minutes Time was spent: preparing to see the patient(eg.review tests), obtaining and/or reviewing separately otained hiistory, ordering medications,tests, procedures, referring, communicating with other health assisted living care manager, indepentently interpreting results, counseling the patient and care coordination
[2025-01-15] MEDS: Simvastatin 20 MG TAB PO (21:16)
[2025-01-16] MEDS: DOXYCYCLINE 100 MG in Normal Saline 100 ML IVPB (00:12)
[2025-01-16] MEDS: CEFEPIME 2 GM in Normal Saline 100 ML IVPB ×2 (00:17→08:23)
[2025-01-16] MEDS: VANCOMYCIN/WATER (PEG) 1.5 GM/300 ML BAG IV (00:25)
[2025-01-16 03:55] VITALS: BP 130/70; PULSE 82; RESP 24; TEMP 37.1; O2SAT 90
[2025-01-16 06:47] LABS: HCT 28.1 % (40.0-50.0); HGB 9.2 g/dL (13.5-17.5); MCH 31.8 pg (27.0-33.0); MCHC 32.7 % (32.0-36.0); MCV 97 fL (80-95); MPV 10.1 fL (8.0-11.0); Platelet Count 273 10^3/uL (130-400); RBC 2.89 10^6/uL (4.36-5.78); RDW 13.2 % (11.8-14.1); RDW-SD 47.6 fL; WBC 22.13 10^3/uL (4.4-10.8)
[2025-01-16 07:20] LABS: ALT 24 U/L (16-63); AST 13 U/L (15-37); Albumin 2.4 g/dL (3.4-5.0); Alkaline Phosphatase 77 U/L (46-116); Anion Gap 7.4 mmol/L (3-11); BUN 19 mg/dL (7-18); Bilirubin, Total 0.3 mg/dL (0.2-1.0); CO2 29.6 mmol/L (21.0-32.0); Calcium 8.8 mg/dL (8.5-10.1); Chloride 106 mmol/L (98-107); Estimated GFR 80.47 (mL/min/1.73m2); Glucose 203 mg/dL (74-106); Magnesium 1.9 mg/dL (1.8-2.4); Potassium 3.7 mmol/L (3.5-5.1); Sodium 143 mmol/L (136-145); Total Protein 5.4 g/dL (6.4-8.2); Vancomycin, Random 20.2 ug/mL
[2025-01-16 07:37] VITALS: BP 145/70; PULSE 87; RESP 16; TEMP 36.9; O2SAT 91
[2025-01-16] MEDS: Tiotropium/Olodaterol 10 PUFF INHALER 2 PUFF IH (08:15)
[2025-01-16] MEDS: Polyethylene Glycol 3350 17 GM PACKET PO ×2 (08:19→19:56)
[2025-01-16] MEDS: Insulin Aspart 300 UNITS/3 ML PEN SC ×4 (08:20→21:34)
[2025-01-16] MEDS: Enoxaparin 40 MG/0.4 ML SYR SC (08:20)
[2025-01-16] MEDS: Normal Saline Flush 10 ML SYR IVP (08:20)
[2025-01-16] MEDS: Cyanocobalamin 500 MCG TAB 1000 MCG PO (08:21)
[2025-01-16] MEDS: Lisinopril 2.5 MG TAB PO (08:21)
[2025-01-16] MEDS: Folic Acid 1 MG TAB PO (08:21)
[2025-01-16] MEDS: Docusate Sodium 100 MG CAP PO (08:21)
[2025-01-16] MEDS: Escitalopram 20 MG TAB PO (08:21)
[2025-01-16] MEDS: Magnesium Chloride 64 MG TABCR PO ×2 (08:21→19:57)
[2025-01-16] MEDS: Ferrous Gluconate 324 MG TAB PO (08:22)
[2025-01-16] MEDS: Multivitamin TAB 1 TAB PO (08:22)
[2025-01-16] MEDS: buPROPion-XL 150 MG TABCR 450 MG PO (08:22)
[2025-01-16] MEDS: Pantoprazole 40 MG TABCR PO ×2 (08:22→19:57)
[2025-01-16] MEDS: Sucralfate 1 GM TAB PO ×4 (08:22→21:34)
[2025-01-16] MEDS: Acetaminophen 325 MG TAB 650 MG PO ×2 (08:23→19:57)
--- NOTE | 2025-01-16 10:23 | IN_ITS ---
Date of service: 01/16/25 Time of Service: 10:00 PT Notes Visit Reasons: Multilobar pneumonia hospital-acquired Inpatient Physical Therapy Evaluation Date: January 16, 2025 Referring Doctor: Esa Williamson PT Orders: PT CONSULT Precautions: Fall risk due to impaired safety awareness. Standard. Activity as tolerated. Patient Profile/Admitting Diagnosis: Koko is a 69-year-old male [facility] resident who presented to the ED on 01/14/2025 due to weakness. Koko was recently hospitalized for small bowel infarction and small left lower lobe pneumonia now with multilobar pneumonia which is hospital-acquired. PMHX: Anemia (Chronic) Gastroenteritis (Acute) Acute exacerbation of chronic obstructive airways disease (Acute) Pulmonary nodule (Acute) Asthma-COPD overlap syndrome (Acute) Recurrent pneumonia (Acute) Pain (Chronic) Community acquired pneumonia (Acute) Pneumonia (Acute) H/O: CVA (cerebrovascular accident) (Acute) Diabetes mellitus (Chronic) HCAP (healthcare-associated pneumonia) (Acute) UTI (urinary tract infection) (Acute) Acute pyelonephritis (Acute) COPD (chronic obstructive pulmonary disease) (Chronic) Constipation, chronic (Chronic) Discharge planning issues (Acute) Schizo affective schizophrenia (Chronic) Non-insulin dependent type 2 diabetes mellitus (Chronic) Oropharyngeal dysphagia (Acute) Hypertension (Chronic) GERD (gastroesophageal reflux disease) (Chronic) Medical History Small bowel obstruction MSSA bacteremia Sepsis Acidosis, lactic [place] (acute kidney injury) Adrenal hyperplasia Pulmonary emboli Acute thrombosis of right basilic vein Complication associated with peripherally inserted central catheter (PICC) Normocytic anemia H/O schizophrenia Social History/Home Situation: Long-time resident of an [facility]. Able to navigate inside [facility] without an assistive device at [facility]. Equipment Owned/DME: [facility] Subjective: Reported generalized discomfort but was agreeable to evaluation this morning. Reported mild fatigue and generalized weakness. Thinks that it might be good for him to exercise. Objective: General Observation:telemetry Mental Status: Alert and oriented x3 Pain: None reported Vital Signs: Oxygen saturation ranged between 88-93% on room air throughout PT consult ROM: Right Upper Extremity: Shoulder Flexion allows up to about 100 degrees. Shoulder abduction allows up to about 90 degrees. Elbow flexion WFL. Wrist flexion WFL. Opening and closing of hand WFL. Left Upper Extremity: Shoulder Flexion allows up to about 100 degrees. Shoulder abduction allows up to about 90 degrees. Elbow flexion WFL. Wrist flexion WFL. Opening and closing of hand WFL. Right Lower Extremity: Hip flexion allows up to about 100 degrees. Hip abduction WFL. Knee flexion WFL. Ankle dorsiflexion to neutral only. Ankle plantarflexion WFL. Left Lower Extremity: Hip flexion allows up to about 100 degrees. Hip abduction WFL. Knee flexion WFL. Ankle dorsiflexion to neutral only. Ankle plantarflexion WFL. Strength: Right Upper Extremity: Shoulder flexors 4-/5. Shoulder abductors 4-/5. Elbow flexors 4/5. Elbow extensors 4-/5. Soil Conservationist strong. Left Upper Extremity: Shoulder flexors 3+/5. Shoulder abductors 3+/5. Elbow flexors 4/5. Elbow extensors 4-/5. Soil Conservationist strong. Right Lower Extremity: Hip flexors 4/5. Hip abductors 3+/5. Knee flexors 4/5. Knee extensors 4+/5. Ankle dorsiflexors 4-/5. Ankle plantarflexors 4/5. Left Lower Extremity: Hip flexors 4-/5. Hip abductors 3+/5. Knee flexors 4/5. Knee extensors 4+/5. Ankle dorsiflexors 3/5. Ankle plantarflexors 4/5. Sensation: Intact as to pain and pressure on bilateral lower extremities. Bed Mobility/Transfers: Moderate cueing provided for use of B hands as needed for support, movement sequence, AD management, and posture to reduce fall risk and minimize pain report Supine to sit minimal assist Sit to stand contact guard assist with FWW Stand to sit contact guard assist with FWW Bed to chair contact guard assist with FWW Chair to bed contact guard assist with FWW Gait: Patient tolerated level surface ambulation of 50 feet using front wheeled walker requiring contact-guard assist of PT. Swing through gait pattern. Reported mild short breath and minimal dizziness that dissipated with rest. Balance: Static Sitting: Normal Dynamic Sitting: Normal Static Standing: Fair Dynamic Standing: Fair Special Tests: Mobility Limitations Standardized Measure [facility]-PAC 6 clicks Basic Mobility Inpatient Short Form: Raw Score: 19 CMS Score: 42% deficit Informed Consent/Education: Patient instructed in purpose of PT consult and plan of care. Agreeable to proceed with established PT POC to achieve personal goals. Assessment: Report of generalized discomfort, dizziness, and shortness of breath minimally limited patient's ability to participate in today's mobility assessment/performance. Session today focused on performing PT evaluation and enuring safe movement techniques and sequences to reduce fall risk. Patient presents with clinical signs and symptoms consistent with current/admitting diagnoses that have resulted to mobility limitations, gait instability, generalized weakness, and impairment of motor control as demonstrated by the following impairment level findings: 1. Decreased strength to B UE/LE major muscle groups 2. Impaired standing balance 3. Impaired activity tolerance Impairments are contributing to the following functional limitations: 1. Inability to safely ambulate without assistive device and physical assistance 2. Increase completion time for mobility ADL performance 3. Increased fall risk 4. Inability to negotiate steps alone safely Patient is [place] a 76560 moderate complexity based on the following: History: 69 [id number] with impairment level findings, functional limitations, and past medical history as indicated above Examination: As above Presentation: Evolving Decision Makin moderate complexity Goals: Goals X1 week 1. Supine-Sit independent 2. Sit-Supine independent 3. Sit-Stand independent 4. Stand-Sit independent 5. Bed-Chair independent 6. Chair-Bed independent 7. Independent gait on level surface with use of no device for at least 300 feet without report of pain nor dyspnea 8. Independent with home exercise program 9. Good static and dynamic standing balance/tolerance Plan of Care/Treatment Plan: 1-2x/day, 7 days/week x 1 week. Plan of care has been reviewed with the RENT CONTROL OFFICE MANAGER providing the service under Physical Therapy direction. Initiate Physical Therapy intervention for strengthening, bed mobility, transfers, gait, stairs, balance training, use of assistive device. DISCHARGE RECOMMENDATIONS: Return to Assisted Living Facility- [facility] with possible need of Home Health PT to promote improved functional endurance, mobility and strength. TREATMENT CODE/TIME: 33878 x 25 minutes IE (10:00-10:25). Thank you for the opportunity to participate in the care of this patient. Sydney Howard, MPT [facility] Disclaimer: This note was created using VHT voice recognition software. It was reviewed for major content. However, there may be multiple small discrepancies and errors due to the voice recognition aspects of the software.
[2025-01-16 11:47] VITALS: BP 118/69; PULSE 92; RESP 14; TEMP 37; O2SAT 95
--- NOTE | 2025-01-16 12:05 | W.PM.PROGNOT ---
Date of Service Date of service: 01/16/25 Time of Service: 12:05 Assessment and Plan Assessment and plan (1) HCAP (healthcare-associated pneumonia): Start date: 01/14/25 Status: Acute Assessment and plan: This is a 69-year-old gentleman recently hospitalized for small bowel infarction and small left lower lobe pneumonia now with multilobar pneumonia which is hospital-acquired. He does not have a fever but does have a markedly elevated WBC which is recurrent in this patient. He will be admitted for IV therapy including cefepime, vancomycin and doxycycline. His current medical therapy will be continued. He is a full code. 01/15/25 Pt wbc is decreasing but still elevated. C/W Cefepime/doxycycline/vancomycin. Recheck labs in am. Await culture results 01/16/25 Will change to levaquin po. If the pt's wbc does not continue to improve, will have to place mid/picc and restart IV abx. Did d/w pt possible s/e of levaquin including Achilles rupture and the pt wanted to try this medication as it is a once a day medication with good pulmonary coverage (2) Recurrent pneumonia: Start date: 01/14/25 Status: Acute Assessment and plan: Hospital-acquired pneumonia with treatment as above. Follow-up imaging as needed. Patient is not requiring oxygen at this time. (3) COPD (chronic obstructive pulmonary disease): Status: Chronic Assessment and plan: Continue inhaler therapy with pulmonary toilet as needed. (4) Non-insulin dependent type 2 diabetes mellitus: Status: Chronic Assessment and plan: Patient will have glucometers before meals and at bedtime with sensitive sliding scale short acting insulin coverage while in the hospital. Hold outpatient medical therapy including metformin. Patient will not be replaced on prednisone which may exacerbate his hyperglycemia. (5) Hypertension: Status: Chronic Assessment and plan: Continue chronic outpatient medical therapy. (6) GERD (gastroesophageal reflux disease): Status: Chronic Assessment and plan: Continue outpatient PPI. He also is on sulcal fate with recent upper GI bleed. (7) Schizo affective schizophrenia: Status: Chronic Assessment and plan: Continue outpatient medical therapy. Patient is stable but is on multiple antipsychotics with side effects when using conjunction. Watch for complications. Subjective Subjective Interval history since last seen: Pt seen and examined in his room this am. Pt without significant complaints. NS report pt lost his IV access and is a very difficult stick. Exam Narrative Exam Narrative: General: Patient appears appropriate for age, in no acute distress, alert and oriented x 3 when awakened. He is moderately obese. HEENT: Normocephalic, eyes with pupils equal and reactive light symmetric, extraocular move intact and sclera anicteric. Oropharynx with dry mucosa and normal dentition. Neck: Supple without JVD. Back: Kyphotic without CVA tenderness. Lungs: bilat wheeze worse with expiration. Speaking in complete history sentences Heart: Regular rate and rhythm with distant heart sounds. No appreciable murmur or gallop. Abdomen: Obese contour, soft to palpation without guarding or rebound. No tympany to percussion. Bowel sounds present all quadrants and decreased. Patient had no focal tenderness. No appreciated hepatosplenomegaly. Extremities: Without clubbing, cyanosis or pitting edema. Fair capillary refill. Skin: Pale, warm and dry. Neuro: Cranial nerves II through XII grossly intact, no focal motor deficits and no tremor. Psych: Flattened affect with slow, slightly dysarthric speech but no abnormal thought processes. Remote and recent memory intact. Objective Last Vital Signs Temp 37 C 01/16/25 11:47 Pulse 92 H 01/16/25 11:47 Resp 14 01/16/25 11:47 BP 118/69 01/16/25 11:47 Pulse Ox 95 01/16/25 11:47 Laboratory Results - last 24 hr 01/16/25 06:10 WBC 22.13 H RBC 2.89 L Hgb 9.2 L Hct 28.1 L MCV 97 H MCH 31.8 MCHC 32.7 RDW 13.2 Plt Count 273 MPV 10.1 Sodium 143 Potassium 3.7 Chloride 106 Carbon Dioxide 29.6 Anion Gap 7.4 BUN 19 H Creatinine 1.0 Est GFR (CKD-EPI 2020) 80.47 Glucose 203 H Calcium 8.8 Magnesium 1.9 Total Bilirubin 0.3 AST 13 L ALT 24 Alkaline Phosphatase 77 Total Protein 5.4 L Albumin 2.4 L Random Vancomycin 20.2 Time Spent with Patient Time Spent with Patient: 25-34 minutes Time was spent: preparing to see the patient(eg.review tests), obtaining and/or reviewing separately otained hiistory, ordering medications,tests, procedures, referring, communicating with other health home health care respiratory therapist, indepentently interpreting results, counseling the patient and care coordination
[2025-01-16 15:45] VITALS: BP 123/69; PULSE 91; RESP 14; TEMP 37; O2SAT 93
[2025-01-16 19:13] VITALS: BP 133/63; PULSE 92; RESP 15; TEMP 36.4; O2SAT 91
[2025-01-16] MEDS: Simvastatin 20 MG TAB PO (19:56)
[2025-01-16 23:47] VITALS: BP 135/60; PULSE 82; RESP 18; TEMP 36.7; O2SAT 92
[2025-01-17] VITALS (7 sets, daily range): BP systolic 140–169; BP diastolic 65–80; PULSE 73–88; RESP 16–18; TEMP 36.5–37; O2SAT 89–96
[2025-01-17 06:33] LABS: HCT 27.8 % (40.0-50.0); HGB 9.3 g/dL (13.5-17.5); MCH 31.7 pg (27.0-33.0); MCHC 33.5 % (32.0-36.0); MCV 95 fL (80-95); MPV 10.2 fL (8.0-11.0); Nucleated RBC 0.1 % (0.0-0.3); Platelet Count 319 10^3/uL (130-400); RBC 2.93 10^6/uL (4.36-5.78); RDW 13.2 % (11.8-14.1); WBC 17.05 10^3/uL (4.4-10.8)
[2025-01-17 06:51] LABS: Absolute Lymphocyte Count 1.19 10^3/uL (1.2-3.4); Absolute Monocyte Count 1.53 10^3/uL (0.1-0.8); Bands % 1 %
[2025-01-17 06:52] LABS: Absolute Eosinophil Count 0.68 10^3/uL (0.0-0.7); Myelocytes % 1; Promyelocytes % 1
[2025-01-17 07:02] LABS: Diff Comment Manual Differential; RBC Morphology Normal
[2025-01-17 07:16] LABS: ALT 28 U/L (16-63); AST 22 U/L (15-37); Albumin 2.3 g/dL (3.4-5.0); Alkaline Phosphatase 78 U/L (46-116); Anion Gap 8.2 mmol/L (3-11); BUN 17 mg/dL (7-18); Bilirubin, Total 0.3 mg/dL (0.2-1.0); CO2 28.8 mmol/L (21.0-32.0); Chloride 107 mmol/L (98-107); Estimated GFR 80.47 (mL/min/1.73m2); Glucose 157 mg/dL (74-106); Magnesium 1.8 mg/dL (1.8-2.4); Potassium 3.8 mmol/L (3.5-5.1); Sodium 144 mmol/L (136-145)
[2025-01-17] MEDS: Folic Acid 1 MG TAB PO (08:35)
[2025-01-17] MEDS: Tiotropium/Olodaterol 10 PUFF INHALER 2 PUFF IH (08:35)
[2025-01-17] MEDS: Lisinopril 2.5 MG TAB PO (08:35)
[2025-01-17] MEDS: Cyanocobalamin 500 MCG TAB 1000 MCG PO (08:35)
[2025-01-17] MEDS: Ferrous Gluconate 324 MG TAB PO (08:36)
[2025-01-17] MEDS: Acetaminophen 325 MG TAB 650 MG PO ×2 (08:36→19:27)
[2025-01-17] MEDS: Escitalopram 20 MG TAB PO (08:36)
[2025-01-17] MEDS: Multivitamin TAB 1 TAB PO (08:36)
[2025-01-17] MEDS: Magnesium Chloride 64 MG TABCR PO ×2 (08:36→19:28)
[2025-01-17] MEDS: Docusate Sodium 100 MG CAP PO (08:36)
[2025-01-17] MEDS: buPROPion-XL 150 MG TABCR 450 MG PO (08:36)
[2025-01-17] MEDS: Sucralfate 1 GM TAB PO ×3 (08:37→17:01)
[2025-01-17] MEDS: Polyethylene Glycol 3350 17 GM PACKET PO ×2 (08:37→19:28)
[2025-01-17] MEDS: Pantoprazole 40 MG TABCR PO ×2 (08:37→19:29)
[2025-01-17] MEDS: Enoxaparin 40 MG/0.4 ML SYR SC (08:38)
[2025-01-17] MEDS: Insulin Aspart 300 UNITS/3 ML PEN SC ×3 (08:38→21:22)
--- NOTE | 2025-01-17 09:09 | PHA.REVIEW2 ---
Pharmacy Admission Review Admission Clinical Review Admission Pharmacy Review: Recurrent pneumonia (Acute) HCAP (healthcare-associated pneumonia) (Acute) Macrolide Antibiotics Allergy (Severe, Verified 01/14/25 20:52) Other (See Comment) Resuscitation Status Full Code Height 5 ft 8 in Weight 80.2 kg Pharmacy Admission Review Renal Dosing Renal Dosing: BUN 17 mg/dL (7-18) 01/17/25 06:10 Creatinine 1.0 mg/dL (0.70-1.30) 01/17/25 06:10 Medications needing adjustments: Reviewed (crcl = 76, no adjustments needed) Anticoagulation Anticoagulation: Hgb 9.3 g/dL (13.5-17.5) L 01/17/25 06:10 Hct 27.8 % (40.0-50.0) L 01/17/25 06:10 Plt Count 319 10^3/uL (130-400) 01/17/25 06:10 INR 1.1 (0.9-1.1) 01/14/25 20:17 Creatinine 1.0 mg/dL (0.70-1.30) 01/17/25 06:10 DVT Prophylaxis: Reviewed Medications: Enoxaparin (40 mg daily) Therapeutic Anticoagulation: N/A Opiate Usage Evaluate Pain Scale/Pains Meds: Reviewed (not on opiates. takes APAP 650 mg BID (home med)) Relevant Labs Relevant Labs: Sodium 144 mmol/L (136-145) 01/17/25 06:10 Potassium 3.8 mmol/L (3.5-5.1) 01/17/25 06:10 Chloride 107 mmol/L (98-107) 01/17/25 06:10 Magnesium 1.8 mg/dL (1.8-2.4) 01/17/25 06:10 Electrolytes, C-Reactive P, ESR: Reviewed (WBC = 17 (from 22 yesterday, 34.5 on 01/14)) DM Control DM Control: Reviewed Insulin Dosing, Diabetic Medication: takes metformin 500 mg BID + pioglitazone 30 mg daily at home (not currently ordered), on SS insulin aspart AC & HS Cardiac Review Cardiac Review: Troponin I Cancelled 01/14/25 23:13 BP, HR, EF%: Reviewed QTc Review QTc: Reviewed (QTc = 486 01/14/25) List meds needing interventions: possible increased risk of QT prolongation w/ levaquin + psych meds, hospitalist aware IV to PO Switch IV Medications: Reviewed (meds are PO, lost IV access) Home Meds Home Med List reviewed: Reviewed (confirmed clozapine dose w/[place] [facility]: 200 mg qam + 375 mg qpm (reviewed ANC, clozapine REMS no longer needed)) Relevent Home Meds Not ordered & why?: Anoro ellipta - therapeutic sub to Stiolto per protocol. metformin, pioglitazone - on insulin Current Meds Current Medication Order Review: Reviewed Pharmacy Antibiotic Review Pharmacy Antibiotic Activity: Abx regimen adjustment Comments: currently taking levaquin 750 mg daily (indication: hospital acquired pneumonia), previously on cefepime, doxy, vanco 01/14-01/16 until IV access was lost on 01/16
--- NOTE | 2025-01-17 09:37 | PT.INTREAT ---
PT Notes Visit Reasons: Multilobar pneumonia hospital-acquired Inpatient Physical Therapy Treatment Note [facility] Date: 01/17/25 SUBJECTIVE: Koko states that he is lazy today. I will walk only if I have to. I was able persuade him to go. OBJECTIVE: []? PAIN: none VITALS: ?monitored by [facility] [place] Therapeutic Activities ([id number]): Direct one-on-one instruction in dynamic activities to improve functional performance. ? BED MOBILITY/TRANSFERS? Supine-sit: SBA? Sit-supine: SBA ? Sit-stand: SBA ? Stand-sit: SBA ? Provided skilled cues and instruction on performance and technique throughout. Safety cues given t/o session? GAIT? Assistive Device: FWW ? Weight bearing:FWB Assist:CGA? Distance:?~200' ? Deviation: fast impulsive mvmts, short stride length ? ASSESSMENT:?tolerated session fairly well. Took a little convincing, but did well once he started. Required cues for safety. Tends to push walker too far in front of him. fast pace and fwd flexed posture. Unsafe within room again pushing walker too far out in front of him, reaching for objects too far from him, and rotating hips instead of turning his feet. He had a hard time following directions in regards to transfers and manipulating his walker. He refused to exercises, and opted to lie back down vs sitting up in chair. I'm just lazy. PLAN: will continue to work on his strength endurance as well as functional mobility focusing on safety. TREATMENT CODE/TIME: 20 min [id number] DISCHARGE RECOMMENDATION: home with
--- NOTE | 2025-01-17 10:47 | W.PM.PROGNOT ---
Date of Service Date of service: 01/17/25 Time of Service: 10:47 Assessment and Plan Assessment and plan (1) HCAP (healthcare-associated pneumonia): Start date: 01/14/25 Status: Acute Assessment and plan: This is a 69-year-old gentleman recently hospitalized for small bowel infarction and small left lower lobe pneumonia now with multilobar pneumonia which is hospital-acquired. He does not have a fever but does have a markedly elevated WBC which is recurrent in this patient. He will be admitted for IV therapy including cefepime, vancomycin and doxycycline. His current medical therapy will be continued. He is a full code. 01/15/25 Pt wbc is decreasing but still elevated. C/W Cefepime/doxycycline/vancomycin. Recheck labs in am. Await culture results 01/16/25 Will change to levaquin po. If the pt's wbc does not continue to improve, will have to place mid/picc and restart IV abx. Did d/w pt possible s/e of levaquin including Achilles rupture and the pt wanted to try this medication as it is a once a day medication with good pulmonary coverage 01/17/25 WBC and fever curve reassuring. (29k to 17k wbc). CW levaquin (2) Recurrent pneumonia: Start date: 01/14/25 Status: Acute Assessment and plan: Hospital-acquired pneumonia with treatment as above. Follow-up imaging as needed. Patient is not requiring oxygen at this time. (3) COPD (chronic obstructive pulmonary disease): Status: Chronic Assessment and plan: Continue inhaler therapy with pulmonary toilet as needed. (4) Non-insulin dependent type 2 diabetes mellitus: Status: Chronic Assessment and plan: Patient will have glucometers before meals and at bedtime with sensitive sliding scale short acting insulin coverage while in the hospital. Hold outpatient medical therapy including metformin. Patient will not be replaced on prednisone which may exacerbate his hyperglycemia. (5) Hypertension: Status: Chronic Assessment and plan: Continue chronic outpatient medical therapy. (6) GERD (gastroesophageal reflux disease): Status: Chronic Assessment and plan: Continue outpatient PPI. He also is on sulcalfate with recent upper GI bleed. (7) Schizo affective schizophrenia: Status: Chronic Assessment and plan: Continue outpatient medical therapy. Patient is stable but is on multiple antipsychotics with side effects when using conjunction. Watch for complications. Subjective Subjective Interval history since last seen: Pt seen and examined in his room this am. Still complains of weakness. POC d/w pt as well as with bedside nurse during MDR Exam Narrative Exam Narrative: HEENT: NCAT MMM EOMI PERRLA NECK: NO LAD NO JVD CV: RRR NO MRG PULM: BILAT WHEEZE, SPEAKING IN COMPLETE SENTENCES PSYCH: AAOX3 NAD Objective Last Vital Signs Temp 36.9 C 01/17/25 07:26 Pulse 85 01/17/25 07:26 Resp 16 01/17/25 07:26 BP 169/79 H 01/17/25 07:26 Pulse Ox 89 L 01/17/25 09:03 Laboratory Results - last 24 hr 01/17/25 06:10 WBC 17.05 H RBC 2.93 L Hgb 9.3 L Hct 27.8 L MCV 95 MCH 31.7 MCHC 33.5 RDW 13.2 Plt Count 319 MPV 10.2 Immature Gran % 0.0 Neutrophils % 77.0 Band Neutrophils % 1 Lymphocytes % 7.0 Monocytes % 9.0 Eosinophils % 4.0 Basophils % 0.0 Myelocytes % 1 Promyelocytes % 1 Nucleated RBC % 0.1 Absolute Neutrophils 13.30 H Absolute Lymphocytes 1.19 L Absolute Monocytes 1.53 H Absolute Eosinophils 0.68 Absolute Basophils 0.00 RBC Morphology Normal Sodium 144 Potassium 3.8 Chloride 107 Carbon Dioxide 28.8 Anion Gap 8.2 BUN 17 Creatinine 1.0 Est GFR (CKD-EPI 2020) 80.47 Glucose 157 H Calcium 9.0 Magnesium 1.8 Total Bilirubin 0.3 AST 22 ALT 28 Alkaline Phosphatase 78 Total Protein 6.0 L Albumin 2.3 L Time Spent with Patient Time Spent with Patient: 25-34 minutes Time was spent: preparing to see the patient(eg.review tests), obtaining and/or reviewing separately otained hiistory, ordering medications,tests, procedures, referring, communicating with other health point of care specialist, indepentently interpreting results, counseling the patient and care coordination
[2025-01-17] MEDS: levoFLOXacin 500 MG, levoFLOXacin 250 MG 750 MG PO (11:58)
[2025-01-17] MEDS: Simvastatin 20 MG TAB PO (19:28)
[2025-01-18] VITALS (7 sets, daily range): BP systolic 135–169; BP diastolic 70–88; PULSE 80–91; RESP 18–24; TEMP 36.1–36.7; O2SAT 89–94
[2025-01-18 06:42] LABS: HGB 8.8 g/dL (13.5-17.5); MCH 31.4 pg (27.0-33.0); MCHC 32.6 % (32.0-36.0); MCV 96 fL (80-95); MPV 9.9 fL (8.0-11.0); Platelet Count 339 10^3/uL (130-400); RDW-SD 45.8 fL; WBC 16.47 10^3/uL (4.4-10.8)
[2025-01-18 07:03] LABS: ALT 36 U/L (16-63); AST 27 U/L (15-37); Absolute Eosinophil Count 0.66 10^3/uL (0.0-0.7); Absolute Monocyte Count 0.99 10^3/uL (0.1-0.8); Absolute Neutrophil Count 11.36 10^3/uL (1.2-6.7); Albumin 2.4 g/dL (3.4-5.0); Alkaline Phosphatase 83 U/L (46-116); Anion Gap 6.3 mmol/L (3-11); BUN 11 mg/dL (7-18); Bands % 1 %; Bilirubin, Total 0.3 mg/dL (0.2-1.0); CO2 29.7 mmol/L (21.0-32.0); CREATININE 0.9 mg/dL (0.70-1.30); Calcium 8.7 mg/dL (8.5-10.1); Chloride 106 mmol/L (98-107); Diff Comment Manual Differential; Estimated GFR 91.31 (mL/min/1.73m2); Glucose 161 mg/dL (74-106); Metamyelocytes % 3; Myelocytes % 1; Potassium 3.8 mmol/L (3.5-5.1); RBC Morphology Normal; Sodium 142 mmol/L (136-145); Total Protein 6.2 g/dL (6.4-8.2)
[2025-01-18] MEDS: Tiotropium/Olodaterol 10 PUFF INHALER 2 PUFF IH (08:19)
[2025-01-18] MEDS: Polyethylene Glycol 3350 17 GM PACKET PO ×2 (08:49→21:40)
[2025-01-18] MEDS: Enoxaparin 40 MG/0.4 ML SYR SC (08:49)
[2025-01-18] MEDS: Folic Acid 1 MG TAB PO (08:50)
[2025-01-18] MEDS: Magnesium Chloride 64 MG TABCR PO ×2 (08:50→21:39)
[2025-01-18] MEDS: Lisinopril 2.5 MG TAB PO (08:50)
[2025-01-18] MEDS: Pantoprazole 40 MG TABCR PO ×2 (08:50→21:39)
[2025-01-18] MEDS: Insulin Aspart 300 UNITS/3 ML PEN SC ×4 (08:50→21:57)
[2025-01-18] MEDS: Escitalopram 20 MG TAB PO (08:50)
[2025-01-18] MEDS: Cyanocobalamin 500 MCG TAB 1000 MCG PO (08:50)
[2025-01-18] MEDS: Acetaminophen 325 MG TAB 650 MG PO ×2 (08:51→21:39)
[2025-01-18] MEDS: Docusate Sodium 100 MG CAP PO (08:51)
[2025-01-18] MEDS: Sucralfate 1 GM TAB PO ×4 (08:51→21:39)
[2025-01-18] MEDS: buPROPion-XL 150 MG TABCR 450 MG PO (08:51)
[2025-01-18] MEDS: Multivitamin TAB 1 TAB PO (08:51)
[2025-01-18] MEDS: Ferrous Gluconate 324 MG TAB PO (08:51)
--- NOTE | 2025-01-18 10:39 | PTTR_ITS ---
PT Notes Visit Reasons: Multilobar pneumonia hospital-acquired Inpatient Physical Therapy Treatment Note [facility] Date: 01/18/25 SUBJECTIVE: Clepamella states that he is relaxed this morning. He is agreeable to PT. PM session: I'm ready to go for walk. It make me feel better. OBJECTIVE: []? PAIN: none VITALS: ?monitored by nsg. O2 sats checked t/o session and maintained btwn 93- 95% on RA both am and pm sessions. Therapeutic Activities ([id number]): Direct one-on-one instruction in dynamic activities to improve functional performance. ? BED MOBILITY/TRANSFERS? pt seated in recliner ? Sit-stand: SBA ? Stand-sit: SBA ? Provided skilled cues and instruction on performance and technique throughout. GAIT? Assistive Device:FWW? Weight bearing: FWB Assist: CGA? Distance:?approx 300' ?both am and pm sessions. ? Deviation: short stride length, decreased DF, poor equipment management.? Therapeutic Exercises ([id number]): Direct one-on-one instruction in therapeutic exercises to develop strength, endurance, range of motion and flexibility. ? Exercises ?seated LAQ, marching as well as hip AB/ADD, SLR (in recliner with legs reclined) x10 each Provided skilled instruction in proper exercise performance. Mostly keeping him on task, as he forgot what he was supposed to be doing occasionally. Held ex in pm due to fatigue after his walk. ASSESSMENT:?tolerated session well. Still unsafe manipulating walker within his room. It was difficult to redirect him this am. Encouraged him to stand taller, and not allow his walker to get to far out in front of him. He reports understanding but did not attempt to correct the problem, stating he forgot. PLAN: will continue to work on strength and endurance. Focus on functional mobility and safe transfers following PT POC. TREATMENT CODE/TIME: 25 min in am/ 20 min in pm [id number], [id number] DISCHARGE RECOMMENDATION: home with HH PT
[2025-01-18] MEDS: levoFLOXacin 500 MG, levoFLOXacin 250 MG 750 MG PO (11:54)
--- NOTE | 2025-01-18 13:06 | CMPROGNOTE_ITS ---
Date of service: 01/18/25 Time of Service: 13:06 Care Management Progress Note Progress Note Text Progress Note Text: Elias was sitting up in the chair when CM met with him earlier today. He was very pleasant. He was enjoying a tennis match, and stated that he likes all sports. When CM asked how he was feeling, he replied 50/50. He stated that he did not feel quite ready to go home. Discharge Potential Discharge Needs: PCP F/U Appt Anticipated Barriers to Discharge: None Identified Patient/Family Education Needs: Review discharge instructions, discuss [facility] Me Three Transportation: [facility] Transportation: Private vechicle Plan: Anticipate that Elias will be discharged home with new services of HH PT. He will f/u with his PCP and continue per his plan of care. Elias will transport home via [facility] private vehicle. CM will continue to follow. Social Determinants of Health Screening Will the Patient Participate in the Screening?: Unable to obtain Anticipated HH Services Anticipated HH Services at Discharge [facility].
--- NOTE | 2025-01-18 13:39 | PGE_ITS ---
Date of Service Date of service: 01/18/25 Time of Service: 13:39 Assessment and Plan Assessment and plan (1) HCAP (healthcare-associated pneumonia): Start date: 01/14/25 Status: Acute Assessment and plan: This is a 69-year-old gentleman recently hospitalized for small bowel infarction and small left lower lobe pneumonia now with multilobar pneumonia which is hospital-acquired. He does not have a fever but does have a markedly elevated WBC which is recurrent in this patient. He will be admitted for IV therapy including cefepime, vancomycin and doxycycline. His current medical therapy will be continued. He is a full code. 01/15/25 Pt wbc is decreasing but still elevated. C/W Cefepime/doxycycline/vancomycin. Recheck labs in am. Await culture results 01/16/25 Will change to levaquin po. If the pt's wbc does not continue to improve, will have to place mid/picc and restart IV abx. Did d/w pt possible s/e of levaquin including Achilles rupture and the pt wanted to try this medication as it is a once a day medication with good pulmonary coverage 01/17/25 WBC and fever curve reassuring. (29k to 17k wbc). CW levaquin 01/18/25 WBC continues to improve. From an infectious stand point, pt appears ok for dc (2) Recurrent pneumonia: Start date: 01/14/25 Status: Acute Assessment and plan: Hospital-acquired pneumonia with treatment as above. Follow-up imaging as neede d. Patient is not requiring oxygen at this time. (3) COPD (chronic obstructive pulmonary disease): Status: Chronic Assessment and plan: Continue inhaler therapy with pulmonary toilet as needed. (4) Non-insulin dependent type 2 diabetes mellitus: Status: Chronic Assessment and plan: Patient will have glucometers before meals and at bedtime with sensitive sliding scale short acting insulin coverage while in the hospital. Hold outpatient medical therapy including metformin. Patient will not be replaced on prednisone which may exacerbate his hyperglycemia. (5) Hypertension: Status: Chronic Assessment and plan: Continue chronic outpatient medical therapy. 01/18/25 Pt has had some elevated BP's while in the hospital. Hesitate to make changes in the acute setting. Pt is currently on lisinopril 2.5mg daily but not on BB or SGLT2 inhibitors. Will need optimization in the outpatient setting (6) GERD (gastroesophageal reflux disease): Status: Chronic Assessment and plan: Continue outpatient PPI. He also is on sulcalfate with recent upper GI bleed. (7) Schizo affective schizophrenia: Status: Chronic Assessment and plan: Continue outpatient medical therapy. Patient is stable but is on multiple antipsychotics with side effects when using conjunction. Watch for complications. (8) Constipation: Status: Acute Assessment and plan: abd films (flat/upright) pending. Pt refused SSE. Will add golytely Subjective Subjective Interval history since last seen: pt seen and examined in his room this am. Pt does complain of continued constipation but has refused SSE. Abd film is pending. POC d/w pt and bedside nurse during MDR. Abdominal film is pending Exam Narrative Exam Narrative: HEENT: NCAT MMM EOMI PERRLA NECK: NO LAD NO JVD CV: RRR NO MRG PULM: BILAT WHEEZE, SPEAKING IN COMPLETE SENTENCES PSYCH: AAOX3 NAD abd: distended with decreased bowel sounds x4 quadrants Objective Last Vital Signs Temp 36.4 C L 01/18/25 11:48 Pulse 91 H 01/18/25 11:48 Resp 20 01/18/25 11:48 BP 151/85 H 01/18/25 11:48 Pulse Ox 93 01/18/25 11:48 Laboratory Results - last 24 hr 01/18/25 06:15 WBC 16.47 H RBC 2.80 L Hgb 8.8 L Hct 27.0 L MCV 96 H MCH 31.4 MCHC 32.6 RDW 13.0 Plt Count 339 MPV 9.9 Immature Gran % 0.0 Neutrophils % 68.0 Band Neutrophils % 1 Lymphocytes % 17.0 Monocytes % 6.0 Eosinophils % 4.0 Basophils % 0.0 Metamyelocytes % 3 Myelocytes % 1 Nucleated RBC % 0.0 Absolute Neutrophils 11.36 H Absolute Lymphocytes 2.80 Absolute Monocytes 0.99 H Absolute Eosinophils 0.66 Absolute Basophils 0.00 RBC Morphology Normal Sodium 142 Potassium 3.8 Chloride 106 Carbon Dioxide 29.7 Anion Gap 6.3 BUN 11 Creatinine 0.9 Est GFR (CKD-EPI 2020) 91.31 Glucose 161 H Calcium 8.7 Total Bilirubin 0.3 AST 27 ALT 36 Alkaline Phosphatase 83 Total Protein 6.2 L Albumin 2.4 L Time Spent with Patient Time Spent with Patient: 25-34 minutes Time was spent: preparing to see the patient(eg.review tests), obtaining and/or reviewing separately otained hiistory, ordering medications,tests, procedures, referring, communicating with other health intensive care unit nurse, indepentently interpreting results, counseling the patient and care coordination
--- NOTE | 2025-01-18 14:06 | DI.RAD_ITS ---
Exam(s) XR ABDOMEN FLAT UPRIGHT EXAM: XR ABDOMEN FLAT UPRIGHT CLINICAL HISTORY: distention. TECHNIQUE: 2D digital imaging was performed. COMPARISON: CR,XR XR ABDOMEN FLAT PLATE from 01/10/2025 CT scan of 01/08/2025 also reviewed. FINDINGS: Two views All the oral contrast is now in the left side of the colon at and distal to the splenic flexure in se en to the level of the rectum. There are multiple air-filled small and large bowel loops throughout the abdomen pelvis. Some of the se exhibit air-fluid levels consistent with an element of remaining incomplete small bowel obstructio n. There is a single air bubble subjacent to the lateral aspect of the right hemidiaphragm as seen o n the upright view. IMPRESSION: Persistent incomplete small bowel obstruction There is a gas bubble seen subjacent to the lateral aspect of the right hemidiaphragm. This may be s uspicious for free intraperitoneal air. Recommend repeat CT scan. DATA REPOSITORY: RADIATION DOSE DELIVERED:
[2025-01-18] MEDS: Magnesium Citrate 300 ML BTL PO (14:11)
[2025-01-18] MEDS: Simvastatin 20 MG TAB PO (21:57)
[2025-01-19 03:22] VITALS: BP 146/74; PULSE 83; RESP 16; TEMP 36.5; O2SAT 90
[2025-01-19] MEDS: Sucralfate 1 GM TAB PO ×3 (06:38→16:47)
[2025-01-19] MEDS: Pantoprazole 40 MG TABCR PO (06:38)
[2025-01-19 07:22] LABS: HCT 29.3 % (40.0-50.0); HGB 9.5 g/dL (13.5-17.5); MCH 31.6 pg (27.0-33.0); MCHC 32.4 % (32.0-36.0); MCV 97 fL (80-95); MPV 9.7 fL (8.0-11.0); Nucleated RBC 0.1 % (0.0-0.3); Platelet Count 340 10^3/uL (130-400); RBC 3.01 10^6/uL (4.36-5.78); RDW-SD 45.6 fL; WBC 16.67 10^3/uL (4.4-10.8)
[2025-01-19 07:35] LABS: ALT 48 U/L (16-63); AST 33 U/L (15-37); Albumin 2.6 g/dL (3.4-5.0); Alkaline Phosphatase 97 U/L (46-116); Anion Gap 3.9 mmol/L (3-11); BUN 9 mg/dL (7-18); Bilirubin, Total 0.3 mg/dL (0.2-1.0); CO2 31.1 mmol/L (21.0-32.0); CREATININE 0.9 mg/dL (0.70-1.30); Calcium 8.8 mg/dL (8.5-10.1); Chloride 103 mmol/L (98-107); Estimated GFR 91.31 (mL/min/1.73m2); Glucose 181 mg/dL (74-106); Potassium 4.1 mmol/L (3.5-5.1); Sodium 138 mmol/L (136-145); Total Protein 6.3 g/dL (6.4-8.2)
[2025-01-19 07:37] LABS: Absolute Eosinophil Count 0.17 10^3/uL (0.0-0.7); Absolute Lymphocyte Count 1.67 10^3/uL (1.2-3.4); Absolute Monocyte Count 1.83 10^3/uL (0.1-0.8); Bands % 2 %; Metamyelocytes % 5; Myelocytes % 1
[2025-01-19 07:38] LABS: Diff Comment Manual Differential; RBC Morphology Normal
[2025-01-19 08:10] VITALS: BP 137/88; PULSE 80; RESP 19; TEMP 37.1; O2SAT 95
--- NOTE | 2025-01-19 08:35 | PT.INTREAT ---
PT Notes Visit Reasons: Multilobar pneumonia hospital-acquired Physical Therapy Inpatient Treatment Note Date: 01/19/2025 Precautions: Fall risk due to impaired safety awareness. Standard. Activity as tolerated. Subjective: Still sleepy but was agreeable to work with PT this morning. Anticipating that he may go home today. Minimally short of breath after today's walking activity. Objective: General Observation: Telemetry monitoring in place. Mental Status: Alert and oriented x 4 Pain: None reported Vital Signs: WNL as closely monitored by nursing staff Bed Mobility/Transfers: Moderate cueing provided for use of B hands as needed for support, movement sequence, AD management, and posture to reduce fall risk and minimize pain report Supine to sit minimal assist Sit to stand stand by assist with FWW Stand to sit stand by assist with FWW Bed to chair stand by assist with FWW Chair to bed stand by assist with FWW Gait: Patient tolerated level surface ambulation of 250 feet + 150 feet + 100 feet using front wheeled walker requiring stand by assist of PT and minimal verbal cueing just for directions only. Minimally short of breath, resolved with rest. Stairs: Tolerated 6 x 4-inch steps and 4 x 6-inch steps while holding onto B rails for support with just stand by assist and minimal verbal cueing for safety only. Minimal SOB relieved with rest. Balance: Static Sitting: Normal Dynamic Sitting: Normal Static Standing: Fair Dynamic Standing: Fair Assessment: Stand by assist only for mobility ADL performance using FWW. Minimal shortness of breath resolved with seasted rest. Will benefit from HH PT for continued functional mobility retraining and fall reduction strategies at home. Plan of Care/Treatment Plan: 1-2x/day, 7 days/week x 1 week. Plan of care has been reviewed with the KNITTING MACHINE OPERATOR providing the service under Physical Therapy direction. Initiate Physical Therapy intervention for strengthening, bed mobility, transfers, gait, stairs, balance training, use of assistive device. DISCHARGE RECOMMENDATIONS: Patient will benefit from home health PT services in order to progress mobility level using least restrictive assistive ambulatory device, assess home safety, identify additional equipment needs, and establish a functional maintenance program that will increase ability of patient to remain at home. TREATMENT CODE/TIME: [id number] x 40 minutes for 3 units (8:35-9:15).
[2025-01-19] MEDS: Insulin Aspart 300 UNITS/3 ML PEN SC ×3 (08:52→16:47)
[2025-01-19] MEDS: Enoxaparin 40 MG/0.4 ML SYR SC (08:52)
[2025-01-19] MEDS: Polyethylene Glycol 3350 17 GM PACKET PO (08:53)
[2025-01-19] MEDS: Ferrous Gluconate 324 MG TAB PO (08:53)
[2025-01-19] MEDS: buPROPion-XL 150 MG TABCR 450 MG PO (08:53)
[2025-01-19] MEDS: Multivitamin TAB 1 TAB PO (08:53)
[2025-01-19] MEDS: Acetaminophen 325 MG TAB 650 MG PO (08:53)
[2025-01-19] MEDS: Docusate Sodium 100 MG CAP PO (08:53)
[2025-01-19] MEDS: Lisinopril 2.5 MG TAB PO (08:53)
[2025-01-19] MEDS: Cyanocobalamin 500 MCG TAB 1000 MCG PO (08:54)
[2025-01-19] MEDS: Magnesium Chloride 64 MG TABCR PO (08:54)
[2025-01-19] MEDS: Folic Acid 1 MG TAB PO (08:54)
[2025-01-19] MEDS: Escitalopram 20 MG TAB PO (08:54)
[2025-01-19] MEDS: Tiotropium/Olodaterol 10 PUFF INHALER 2 PUFF IH (10:51)
[2025-01-19 11:17] VITALS: BP 136/73; PULSE 90; RESP 18; TEMP 36.6; O2SAT 98
[2025-01-19] MEDS: levoFLOXacin 500 MG, levoFLOXacin 250 MG 750 MG PO (12:04)
[2025-01-19 15:39] VITALS: BP 123/66; PULSE 88; RESP 18; TEMP 36.6; O2SAT 94
--- NOTE | 2025-01-19 16:03 | DSE_ITS ---
Date of service: 01/19/25 Time of Service: 16:03 DS: Diagnosis Discharge Diagnosis (1) HCAP (healthcare-associated pneumonia): Status: Acute (2) Recurrent pneumonia: Status: Acute (3) COPD (chronic obstructive pulmonary disease): Status: Chronic (4) Non-insulin dependent type 2 diabetes mellitus: Status: Chronic (5) Hypertension: Status: Chronic (6) GERD (gastroesophageal reflux disease): Status: Chronic (7) Schizo affective schizophrenia: Status: Chronic (8) Constipation: Status: Acute Discharge Plan Disposition Patient Disposition: Home W/Home Health Services Condition: Improving Discharge Details Reason For Visit: Multilobar pneumonia hospital-acquired Admit Date/Time: 01/14/25 23:36 Admit Provider: Skyler Del Real Attending Provider: Skyler Del Real Primary Care Provider: Columba Carter Hospital Course Hospital Course: This is a 69-year-old male patient with asthma/COPD and schizophrenia who was hospitalized 01/09- for small bowel obstruction who was readmitted with multifocal pneumonia. Prior to the 01/09 admission he was being treated for pneumonia as an outpatient, and he was treated with COPD and a small lower lobe pneumonia first with ceftriaxone/doxy, then transitioned to amox/clav and doxy along with prednisone. He returned to [facility] 01/14 with mental status changes and weakness, had elevated WBC to 29.9 and a CXR that showed multilobal pneumonia. He was admitted and treated for hospital acquired pnuemonia. Prednisone was not continued. He did not require supplemental oxygen. He was treated with cefepime/doxy/vancomycin, then transitioned to levofloxacin after about 48hr on 01/16. His WBC continued to improve to 16. He finished 6 days of therapy for his pneumonia and was given a final dose of 750mg levofloxacin 01/19. CT on admission showed improvement in SBO. He again had abdominal pain and distention on 01/18, XR 01/18 suggested a gas bubble possibly suspicious for intraperitoneal air, but his pain totally resolved after a dose of magnesium citrate 300mg and large BM, so CT was not repeated. He had a drop in hgb in his previous admission and heme+ stool, but hgb was stable at 8.8-9.5 during this admission. He was evaluated by PT and home health PT recommended for fall prevention and strengthening Follow up: -follow up constipation and bowel regimen -follow anemia and iron levels -follow need for endoscopic evaluation for blood loss Home Meds and New Rx's Prescriptions: New magnesium citrate Solution 148 ml PO DAILY PRNQty: 296 2RF Continued ferrous gluconate 324 mg (38 mg iron) tablet 324 mg PO DAILY simvastatin 20 mg tablet 20 mg PO HS bupropion HCl [Wellbutrin XL] 300 mg tablet extended release 24 hr 300 mg PO QAM Patient Comments: total dose = 450 mg daily glucosamine bzi-covgbauhil-age 500-400-167 mg tablet 1 tab PO TID Rx Instructions: give with meal/snack Anoro Ellipta 62.5-25 mcg/actuation blister with device See Rx Instructions .ROUTE .COMPLEX Qty: 60 12RF Dose Instruction: INHALE 1 PUFF BY MOUTH DAILY Rx Instructions: INHALE 1 PUFF BY MOUTH DAILY calcium carbonate 200 mg calcium (500 mg) Tablet,Chewable 500 mg PO TID PRN PRNQty: 0 0RF Patient Comments: not no MAR 04/24/24 multivitamin [Multiple Vitamins] Tablet 1 tab PO DAILY Qty: 30 0RF cyanocobalamin (vitamin B-12) [Vitamin B-12] 500 mcg Tablet 1,000 mcg PO DAILY Qty: 60 0RF pantoprazole 40 mg Tablet,Delayed Release (Dr/Ec) 40 mg PO BID@729,1999 Qty: 30 0RF docusate sodium [Colace] 100 mg Capsule 100 mg PO DAILY Qty: 30 0RF magnesium chloride [Mag 64] 64 mg Tablet,Delayed Release (Dr/Ec) 64 mg PO BID Qty: 30 0RF acetaminophen [Tylenol Arthritis Pain] 650 mg Tablet Extended Release 650 mg PO BID polyethylene glycol 3350 17 gram/dose powder 17 g PO DAILY PRN PRN Patient Comments: TK 17 GRAMS DISSOLVED IN LIQUID BY MOUTH ONCE DAILY Rx Instructions: PRN PER PROVIDERS MED LIST hydroxyzine pamoate [Vistaril] 25 mg capsule 25 mg PO DAILY PRN PRN Patient Comments: Take 1 capsule by mouth once a day as directed and can take an additional 1 po prn daily for anxiety lisinopril 2.5 mg tablet 2.5 mg PO DAILY pioglitazone [Actos] 30 mg tablet 30 mg PO DAILY folic acid 1 mg Tablet 1 mg PO DAILY metformin 500 mg tablet 500 mg PO BID albuterol sulfate [Ventolin HFA] 90 mcg/actuation Hfa Aerosol Inhaler 2 puff inhalation Q6H PRN bupropion HCl 150 mg tablet extended release 24 hr 150 mg PO DAILY Patient Comments: TAKE WITH 300MG TABLET polyethylene glycol 3350 17 gram Powder In Packet 17 g PO BID Qty: 60 2RF prednisone 20 mg Tablet 40 mg PO DAILY 3 Days Qty: 6 0RF sucralfate [Carafate] 1 gram tablet 1 g PO QACHS Qty: 120 0RF ziprasidone HCl [Geodon] 80 MG capsule 80 - 160 mg PO DIRECTED Rx Instructions: 80mg QAM 160mg @ 5PM WITH DINNER clozapine [Clozaril] 100 mg tablet See Rx Instructions PO QAM Rx Instructions: orally every morning; 200 mg qam + 375 mg qpm (confirmed dose w/genoa 01/15/25) clozapine 25 mg tablet See Rx Instructions PO HS Rx Instructions: orally bedtime; 200 mg qam + 375 mg qpm (confirmed dose w/genoa 01/15/25) celecoxib 100 mg capsule 100 mg PO BID Patient Comments: 100 mg BID escitalopram oxalate 20 mg tablet 20 mg PO DAILY Patient Comments: daily Extreme [place]-3 120-180-600 mg capsule 2 cap PO DAILY Patient Comments: on NOV as [place] XL Discharge Instructions Instructions: Pneumonia, Adult (DC) Additional Instructions: You are done with your treatment for pnuemonia. He should continue his bowel regimen to keep his stools soft. If not having bowel movements magnesium citrate can be used. Activity:: Activity as Tolerated Equipment/Supplies:: No Equipment Needed Diet:: Carb Counting Discharge Orders Discharge Orders: Discharge Order (Routine); Ordered 01/19/25 Ordered By: Glynn Jimenez DS: Summary Time Spent with Patient providing and/or coordinating discharge services: Greater than 30 minutes Status at Discharge Functional status at discharge: uses cane/walker Overall status at discharge: patient is back to baseline Mental Status: mental status grossly normal Speech and Movement: speech and movement normal Mood: congruent mood Affect: normal affect Quality:SDOH Health Related Social Needs: Health related social needs material hardship(utilitie s) (Z59.12) Exam Narrative Exam Narrative: GEN: alert and oriented, NAD, eating CV: RRR NO MRG PULM: BILAT course breath sounds, no rales/wheeze, SPEAKING IN COMPLETE SENTENCES PSYCH: AAOX3 NAD abd: soft, NT, no distended with active bowel sounds x 4 quadrants Psych Mental Status: mental status grossly normal Speech and Movement: speech and movement normal Mood: congruent mood Affect: normal affect DS: Data Vitals/I&O Vitals and I&O: Vital Signs Temperature 36.6 C 01/19/25 15:39 Temperature Source Temporal Artery Scan 01/19/25 15:39 Pulse 88 01/19/25 15:39 Pulse Rhythm Regular 01/15/25 03:44 Respiratory Rate 18 01/19/25 15:39 Respiratory Effort Normal 01/15/25 09:15 Respiratory Depth Normal 01/15/25 09:15 Respiratory Pattern Normal 01/15/25 09:15 Blood Pressure 123/66 01/19/25 15:39 Blood Pressure Position Supine 01/14/25 20:24 Pulse Oximetry 94 01/19/25 15:39 Oxygen Delivery Method Room Air 01/19/25 15:39 Oxygen Flow Rate 0 01/19/25 15:39 Pain Level 2 01/19/25 15:39 Comment rn notified 01/18/25 19:32 Intake & Output 01/18/25 01/19/25 01/19/25 23:59 11:59 23:59 Output Total 1150 / 2635 300 / 300 Balance -1150 / -2485 -300 / -300 Weight 80.3 kg Output: Urine 1150 / 2635 300 / 300 Other: Urine Color Pale Yellow Yellow Yellow Urine Appearance Clear Clear Clear Urine Odor Normal Normal None Comment pt voided in toilet- no hat, unable to measure Stool Size Large Moderate Stool Characteristics Soft Soft Liquid Brown Brown Data Completed and Pending Labs on day of discharge: Labs from last 24 hours 01/19/25 07:05 WBC 16.67 H RBC 3.01 L Hgb 9.5 L Hct 29.3 L MCV 97 H MCH 31.6 MCHC 32.4 RDW 13.0 Plt Count 340 MPV 9.7 Immature Gran % 0.0 Neutrophils % 70.0 Band Neutrophils % 2 Lymphocytes % 10.0 Monocytes % 11.0 Eosinophils % 1.0 Basophils % 0.0 Metamyelocytes % 5 Myelocytes % 1 Nucleated RBC % 0.1 Absolute Neutrophils 12.00 H Absolute Lymphocytes 1.67 Absolute Monocytes 1.83 H Absolute Eosinophils 0.17 Absolute Basophils 0.00 RBC Morphology Normal Sodium 138 Potassium 4.1 Chloride 103 Carbon Dioxide 31.1 Anion Gap 3.9 BUN 9 Creatinine 0.9 Est GFR (CKD-EPI 2020) 91.31 Glucose 181 H Calcium 8.8 Total Bilirubin 0.3 AST 33 ALT 48 Alkaline Phosphatase 97 Total Protein 6.3 L Albumin 2.6 L Preliminary micro results at discharge 01/14/25 21:26 Blood Culture - Preliminary Blood NO GROWTH 96 HOURS 01/14/25 21:18 Blood Culture - Preliminary Blood NO GROWTH 96 HOURS PFSH All Active Problems (Updated 01/18/25 @ 13:47 by Esa Williamson MD) Constipation (Acute) Anemia (Chronic) Gastroenteritis (Acute) Acute exacerbation of chronic obstructive airways disease (Acute) Pulmonary nodule (Acute) Asthma-COPD overlap syndrome (Acute) Recurrent pneumonia (Acute) Pain (Chronic) Community acquired pneumonia (Acute) HCAP (healthcare-associated pneumonia) (Acute) UTI (urinary tract infection) (Acute) Acute pyelonephritis (Acute) Constipation, chronic (Chronic) Discharge planning issues (Acute) Pneumonia (Acute) GERD (gastroesophageal reflux disease) (Chronic) Hypertension (Chronic) Oropharyngeal dysphagia (Acute) Non-insulin dependent type 2 diabetes mellitus (Chronic) Diabetes mellitus (Chronic) H/O: CVA (cerebrovascular accident) (Acute) COPD (chronic obstructive pulmonary disease) (Chronic) Schizo affective schizophrenia (Chronic) Medical History Small bowel obstruction MSSA bacteremia Sepsis Acidosis, lactic [place] (acute kidney injury) Adrenal hyperplasia Pulmonary emboli Acute thrombosis of right basilic vein Complication associated with peripherally inserted central catheter (PICC) Normocytic anemia H/O schizophrenia Family History Mother No problems noted. Social History Smoking/Tobacco Use Status: Former Tobacco Use Quit Date: 09/30/99 Tobacco: How many years used: 43 Smoking risk assessment performed?: Yes Alcohol Intake: former Drug use: Occasionally Substance use type: does not use Housing: assisted living facility Do you feel safe at home: Yes Do you feel safe in your relationship?: Yes Additional [facility] history[facility] Time Spent with Patient Time Spent with Patient: 45-69 minutes Time was spent: preparing to see the patient(eg.review tests), obtaining and/or reviewing separately otained hiistory, ordering medications,tests, procedures, referring, communicating with other health critical care nurse specialist, indepentently interpreting results, counseling the patient and care coordination
--- NOTE | 2025-01-19 16:05 | PDOC.HHF2F ---
Home Health Referral Home Health Orders Clinical synopsis of why skilled professionals are needed: This is a 69-year-old male patient with asthma/COPD and schizophrenia who was hospitalized 01/09- for small bowel obstruction who was readmitted with multifocal pneumonia. Prior to the 01/09 admission he was being treated for pneumonia as an outpatient, and he was treated with COPD and a small lower lobe pneumonia first with ceftriaxone/doxy, then transitioned to amox/clav and doxy along with prednisone. He returned to [facility] 01/14 with mental status changes and weakness, had elevated WBC to 29.9 and a CXR that showed multilobal pneumonia. He was admitted and treated for hospital acquired pnuemonia. Prednisone was not continued. He did not require supplemental oxygen. He was treated with cefepime/doxy/vancomycin, then transitioned to levofloxacin after about 48hr on 01/16. His WBC continued to improve to 16. He finished 6 days of therapy for his pneumonia and was given a final dose of 750mg levofloxacin 01/19. CT on admission showed improvement in SBO. He again had abdominal pain and distention on 01/18, XR 01/18 suggested a gas bubble possibly suspicious for intraperitoneal air, but his pain totally resolved after a dose of magnesium citrate 300mg and large BM, so CT was not repeated. He had a drop in hgb in his previous admission and heme+ stool, but hgb was stable at 8.8-9.5 during this admission. He was evaluated by PT and home health PT recommended for fall prevention and strengthening Follow up: -follow up constipation and bowel regimen -follow anemia and iron levels -follow need for endoscopic evaluation for blood loss Medical diagnosis necessitation home health referral: recurrent pneumonia, weakness/deconditioning Physical Therapist: Check all that apply Increase strength & endurance for safe mobility at home: Ordered To design/establish home maintenance program: Ordered Home safety evaluation and teaching/gait training including stair management (if applicable): Ordered Home Bound Status Requires the aid of supportive device (check all that apply): Walker Encounter Date and Reason: I certify that a FTF encounter for this patient was performed on January 19, 2025 and that such encounter was related to the primary reason the patient requires home health services. The encounter was conducted in the following manner: By me as the certifying physician, CLIENT SERVER DEVELOPER, PA or By an inpatient physician, CLIENT SERVER DEVELOPER or PA during an inpatient stay who communicated findings to me, Certification And Authentication I certify that I composed the above information based on my clinical judgment relating to this patient's medical condition and, if applicable, clinical findings communicated to me by the NPP or inpatient physician who performed the FTF encounter. Name of Provider that will be monitoring home health services: Columba Carter
--- NOTE | 2025-01-19 16:47 | CMDISCH_ITS ---
Date of service: 01/19/25 Time of Service: 16:48 LACE Index Scoring Tool Questions: Length of Stay (in days): 4 - 6 Was the patient admitted via the E.D.?: Yes Comorbidities: Diabetes w/o Complication and Chronic Pulmonary Disease E.D. Visits: 2 Answers: Total Score: 12 Risk of Readmission: High Risk Care Management Discharge Plan Reason for Hospitalization: pneumonia Discharge Plan: Elias is discharged this evening with new services of HH PT. Elias will f/u with his PCP on 01/21 and continue per his plan of care. Olegario Reed is aware of his discharge. Elias will transport home via [facility] private vehicle. Patient/Family Education Needs: Review of discharge instructions, activity, limitations and discuss Ask me 3. Services Needed at Discharge: Home Health Care Services (New PT) SDOH Health Related Social Needs: Health related social needs material hardship(utilitie s) (Z59.12)
== END 2025-01-19 17:45 | disposition home health service (06) | DRG 190 ==
LOC: ER 23:41 → MS 01-15 03:24
PROVIDERS: Admitting Provider Family Medicine; Emergency Provider Emergency Medicine; PCP Nurse Practitioner Family; Responsible Provider Hospitalist; Visit Provider Family Medicine
DX: J44.0 Chronic obstructive pulmonary disease with (acute) lower respiratory infection (principal); J18.9 Pneumonia, unspecified organism; D72.829 Elevated white blood cell count, unspecified; Y95 Nosocomial condition; E11.9 Type 2 diabetes mellitus without complications; I10 Essential (primary) hypertension; K21.9 Gastro-esophageal reflux disease without esophagitis; D64.9 Anemia, unspecified; R91.1 Solitary pulmonary nodule; Z86.73 Personal history of transient ischemic attack (TIA), and cerebral infarction without residual deficits; K59.09 Other constipation; R13.12 Dysphagia, oropharyngeal phase; Z86.711 Personal history of pulmonary embolism; Z86.718 Personal history of other venous thrombosis and embolism; F20.9 Schizophrenia, unspecified; Z79.899 Other long term (current) drug therapy; Z87.01 Personal history of pneumonia (recurrent); R19.5 Other fecal abnormalities
CPT/HCPCS: 00123; 36415; 74177; 80053; 83690; 85027; 86850; 86900; 86901; 87040; 87637; 93005; 94640; 96365; 96366; 96367; 96368; 97110; 97162; 97530; 99285; J1650; 71260; 74019; 80202; 81003; 81015; 83605; 83735; 84484; 85025; 85610; 93010; 94664; 94760; 99223; 99232; 99239; J0692; J1815; J3372; J3490

== ENCOUNTER 2025-02-02 02:10 | Outpatient (CLI) | payer MEDICARE, MEDICAID, SELFPAY ==
[2025-02-02 10:02] LABS: Abs Immature Grans 0.16 10^3/uL (0.0-0.06); Absolute Basophil Count 0.03 10^3/uL (0.0-0.2); Absolute Eosinophil Count 0.42 10^3/uL (0.0-0.7); Absolute Lymphocyte Count 1.43 10^3/uL (1.2-3.4); Absolute Monocyte Count 0.91 10^3/uL (0.1-0.8); Absolute Neutrophil Count 5.01 10^3/uL (1.2-6.7); Basophils % 0.4 %; Eosinophils % 5.3 %; HCT 36.9 % (40.0-50.0); HGB 11.9 g/dL (13.5-17.5); MCH 30.6 pg (27.0-33.0); MCHC 32.2 % (32.0-36.0); MCV 95 fL (80-95); MPV 10.4 fL (8.0-11.0); Monocytes % 11.4 %; Neutrophils % 62.9 %; Platelet Count 342 10^3/uL (130-400); RBC 3.89 10^6/uL (4.36-5.78); RDW 13.2 % (11.8-14.1); RDW-SD 46.3 fL; WBC 7.96 10^3/uL (4.4-10.8)
== END 2025-02-02 02:11 | disposition home or self-care (01) ==
PROVIDERS: PCP Nurse Practitioner Family; Visit Provider Nurse Practitioner Psychiatric/Mental Health
DX: Z79.899 Other long term (current) drug therapy (principal); F20.9 Schizophrenia, unspecified
CPT/HCPCS: 36415; 85025

== ENCOUNTER 2025-02-11 01:16 | Outpatient (CLI) | payer MEDICARE, MEDICAID, SELFPAY ==
--- NOTE | 2025-02-11 | DI.RAD_ITS ---
Exam(s) XR CHEST 2V PA LATERAL EXAM: XR CHEST 2V PA LATERAL CLINICAL HISTORY: Community-acquired pneumonia, bilateral, J18.9; repeat chest imaging TECHNIQUE: 2D digital imaging was performed of the chest. Two images were obtained. PA and lateral views were obtained. COMPARISON: CR XR CHEST 2V PA LATERAL from 12/14/2024 CR,XR XR PORTABLE CHEST AP from 01/09/[address] CHEST/ABD/PEL W from 01/14/2025 FINDINGS: MEDIASTINUM: Normal. HEART: Normal. PULMONARY VASCULATURE: Normal. LUNGS: There are persistent opacities in the right lung. Compared to the CT examination from 01/15/20, there has been an overall improvement in the infiltrate in the right lung. There is also been si gnificant improvement of the infiltrate in the left lung. No new infiltrates are seen. PLEURAL SPACE: No pleural effusion or pneumothorax. BONE:Within normal limits for the patient's age. OTHER FINDINGS:Normal. IMPRESSION: Compared with the most recent examination, which is a CT scan from 01/14/2025, there does appear to be an overall improvement of the lungs particularly in the left, with residual right infiltrates presen t. DATA REPOSITORY: RADIATION DOSE DELIVERED:
== END 2025-02-11 01:36 ==
LOC: DI 01:16
PROVIDERS: PCP Nurse Practitioner Family; Visit Provider Family Medicine
DX: J18.9 Pneumonia, unspecified organism (principal)
CPT/HCPCS: 71046

== ENCOUNTER 2025-03-02 02:07 | Outpatient (CLI) | payer MEDICARE, MEDICAID, SELFPAY ==
[2025-03-02 10:54] LABS: HCT 37.9 % (40.0-50.0); HGB 12.3 g/dL (13.5-17.5); MCH 30.3 pg (27.0-33.0); MCHC 32.5 % (32.0-36.0); MCV 93 fL (80-95); MPV 9.5 fL (8.0-11.0); Platelet Count 385 10^3/uL (130-400); RBC 4.06 10^6/uL (4.36-5.78); RDW 13.8 % (11.8-14.1); RDW-SD 47.3 fL; WBC 12.46 10^3/uL (4.4-10.8)
[2025-03-02 11:07] LABS: Absolute Eosinophil Count 0.12 10^3/uL (0.0-0.7); Absolute Lymphocyte Count 1.25 10^3/uL (1.2-3.4); Absolute Monocyte Count 1.87 10^3/uL (0.1-0.8); Absolute Neutrophil Count 8.85 10^3/uL (1.2-6.7); Bands % 1 %; Diff Comment Manual Differential; Metamyelocytes % 3; RBC Morphology Normal
== END 2025-03-02 02:08 | disposition home or self-care (01) ==
PROVIDERS: PCP Nurse Practitioner Family; Visit Provider Nurse Practitioner Psychiatric/Mental Health
DX: Z79.899 Other long term (current) drug therapy (principal); F20.9 Schizophrenia, unspecified
CPT/HCPCS: 36415; 85025

== ENCOUNTER 2025-03-10 02:18 | Outpatient (CLI) | payer MEDICARE, MEDICAID, SELFPAY ==
--- NOTE | 2025-03-10 | DI.RAD_ITS ---
Exam(s) XR CHEST 2V PA LATERAL EXAM: XR CHEST 2V PA LATERAL CLINICAL HISTORY: H/O RECURRENT PNEUMONIA, F/U PNEUMONIA,Z87.01 TECHNIQUE: 2D digital imaging was performed of the chest. Two images were obtained. PA and lateral views were obtained. COMPARISON: CR XR CHEST 2V PA LATERAL from 02/11/2025 FINDINGS: MEDIASTINUM: Normal. HEART: Normal. PULMONARY VASCULATURE: Normal. LUNGS: A calcified granuloma in the left upper lobe laterally is unchanged. There are 2 new opacitie s in the right lung. One in the right mid lung and 1 in the right lung base laterally. The left solis g is clear. PLEURAL SPACE: No pleural effusion or pneumothorax. BONE:Within normal limits for the patient's age. OTHER FINDINGS:Normal. IMPRESSION: New pulmonary opacities in the right lung since 02/11/2025. This may reflect a new inflammatory or in fectious process. Pulmonary masses cannot be entirely excluded although considered less likely. Fol low-up with a CT scan or repeat chest x-ray after treatment is recommended. Unexpected findings DATA REPOSITORY: RADIATION DOSE DELIVERED:
== END 2025-03-10 02:38 ==
LOC: DI 02:18
PROVIDERS: PCP Nurse Practitioner Family; Visit Provider Nurse Practitioner Family
DX: R91.8 Other nonspecific abnormal finding of lung field (principal); Z87.01 Personal history of pneumonia (recurrent)
CPT/HCPCS: 71046

== ENCOUNTER 2025-04-01 02:05 | Outpatient (CLI) | payer MEDICARE, MEDICAID, SELFPAY ==
--- NOTE | 2025-04-01 | DI.CT_ITS ---
Exam(s) CT CHEST W EXAM: CT CHEST W CLINICAL HISTORY: LUNG FIELD ABNORMAL, R91.8 ABN CXR ON 03/10/25 TECHNIQUE: Imaging Protocol: Axial computed tomography images with coronal and sagittal reformatted images were created and reviewed. Computer aided detection (CAD) was utilized. CONTRAST MATERIAL: Intravenous: Omnipaque 350 Contrast volume:70 ml. COMPARISON: CT CT CHEST WO from 05/10/2021 CR,XR XR PORTABLE CHEST AP from 01/09/[address] CHEST/ABD/PEL W from 01/14/2025 CR XR CHEST 2V PA LATERAL from 02/11/2025 CR XR CHEST 2V PA LATERAL from 03/10/2025 FINDINGS: Pulmonary parenchyma: Diffuse multifocal nodule infiltrates are noted in both upper and lower lobes as well as right middle lobe. There is increased interstitial thickening, greater in the right upper and lower lobes. The findings are more extensive when compared with the previous exam. No dominant measurable mass. Tracheobronchial tree: There is bronchial wall thickening, greater in the lower lobes. Mediastinum and Ying: Mildly enlarged, reactive mediastinal lymph nodes. Pleura: No effusion. No pneumothorax. Heart: The heart is not dilated. Mild coronary artery calcifications are seen. Aorta: Thoracic aorta non-dilated. Mild atherosclerotic changes. Pulmonary arteries: No gross evidence of emboli. Upper abdomen: No acute findings. Bones: Degenerative changes in the spine. Soft tissues: Right gynecomastia IMPRESSION: Worsening of bilateral upper and lower lobe infiltrates. RADIATION DOSE DELIVERED: Total DLP DATA REPOSITORY: All CT scans at this facility are submitted to the National Radiology Data Registry (NRDR) Dose Index Registry (DIR) with the [employer] (A[employer]). RADIATION OPTIMIZATION: All CT scans at this facility use at least one of these dose optimization techniques: automated exposure control; mA and/or kV adjustment per patient size (includes targeted exams where dose is matched to clinical indication); or iterative reconstruction.
[2025-04-01 08:31] LABS: Abs Immature Grans 0.48 10^3/uL (0.0-0.06); HCT 37.7 % (40.0-50.0); HGB 12.2 g/dL (13.5-17.5); Immature Grans % 2.9 %; MCH 29.3 pg (27.0-33.0); MCHC 32.4 % (32.0-36.0); MCV 91 fL (80-95); MPV 9.8 fL (8.0-11.0); Platelet Count 275 10^3/uL (130-400); RBC 4.16 10^6/uL (4.36-5.78); RDW 13.9 % (11.8-14.1); RDW-SD 46.2 fL; WBC 16.79 10^3/uL (4.4-10.8)
[2025-04-01 08:38] LABS: Estimated GFR 94.62 (mL/min/1.73m2)
[2025-04-01 08:53] LABS: RBC Morphology Normal
[2025-04-01] MEDS: Omnipaque 350 MG/ML 100 ML BTL 70 ML IJ (08:55)
[2025-04-01] MEDS: Normal Saline - Diluent 50 ML VIAL IJ (08:57)
== END 2025-04-01 02:25 ==
LOC: DI 02:05
PROVIDERS: PCP Nurse Practitioner Family; Visit Provider Nurse Practitioner Family
DX: Z79.899 Other long term (current) drug therapy (principal); R91.8 Other nonspecific abnormal finding of lung field; F20.9 Schizophrenia, unspecified
CPT/HCPCS: 71260; 82565; 85025; J3490

== ENCOUNTER 2025-04-20 14:24 | Emergency (ER) | payer MEDICARE, MEDICAID, SELFPAY ==
[2025-04-20] VITALS (14 sets, daily range): BP systolic 157–196; BP diastolic 76–99; PULSE 85–97; RESP 16–26; TEMP 36.9; O2SAT 92–95
--- NOTE | 2025-04-20 14:34 | W.ED.GENAD ---
Discharge Plan Disposition Patient Disposition: Home Condition: Good Discharge Details Clinical Impression: Fall, Head injury, Laceration of skin of face Primary Care Provider: Columba Carter ED Provider: Janel Duffy Home Meds and New Rx's Prescriptions: Continued ferrous gluconate 324 mg (38 mg iron) tablet 324 mg PO DAILY simvastatin 20 mg tablet 20 mg PO HS bupropion HCl [Wellbutrin XL] 300 mg tablet extended release 24 hr 300 mg PO QAM Patient Comments: total dose = 450 mg daily glucosamine [id number] 500-400-167 mg tablet 1 tab PO TID Rx Instructions: give with meal/snack Anoro Ellipta 62.5-25 mcg/actuation blister with device See Rx Instructions .ROUTE .COMPLEX Qty: 60 12RF Dose Instruction: INHALE 1 PUFF BY MOUTH DAILY Rx Instructions: INHALE 1 PUFF BY MOUTH DAILY fluticasone furoate-vilanterol [Breo Ellipta] 100-25 mcg/dose blister with device 1 inh inhalation DAILY calcium carbonate 200 mg calcium (500 mg) Tablet,Chewable 500 mg PO TID PRN PRNQty: 0 0RF Patient Comments: not no MAR 04/24/24 multivitamin [Multiple Vitamins] Tablet 1 tab PO DAILY Qty: 30 0RF cyanocobalamin (vitamin B-12) [Vitamin B-12] 500 mcg Tablet 1,000 mcg PO DAILY Qty: 60 0RF pantoprazole 40 mg Tablet,Delayed Release (Dr/Ec) 40 mg PO BID@0730,2000 Qty: 30 0RF docusate sodium [Colace] 100 mg Capsule 100 mg PO DAILY Qty: 30 0RF magnesium chloride [Mag 64] 64 mg Tablet,Delayed Release (Dr/Ec) 64 mg PO BID Qty: 30 0RF acetaminophen [Tylenol Arthritis Pain] 650 mg Tablet Extended Release 650 mg PO BID polyethylene glycol 3350 17 gram/dose powder 17 g PO DAILY PRN PRN Patient Comments: TK 17 GRAMS DISSOLVED IN LIQUID BY MOUTH ONCE DAILY Rx Instructions: PRN PER PROVIDERS MED LIST hydroxyzine pamoate [Vistaril] 25 mg capsule 25 mg PO DAILY PRN PRN Patient Comments: Take 1 capsule by mouth once a day as directed and can take an additional 1 po prn daily for anxiety lisinopril 2.5 mg tablet 2.5 mg PO DAILY pioglitazone [Actos] 30 mg tablet 30 mg PO DAILY folic acid 1 mg Tablet 1 mg PO DAILY metformin 500 mg tablet 500 mg PO BID albuterol sulfate [Ventolin HFA] 90 mcg/actuation Hfa Aerosol Inhaler 2 puff inhalation Q6H PRN bupropion HCl 150 mg tablet extended release 24 hr 150 mg PO DAILY Patient Comments: TAKE WITH 300MG TABLET polyethylene glycol 3350 17 gram Powder In Packet 17 g PO BID Qty: 60 2RF sucralfate [Carafate] 1 gram tablet 1 g PO QACHS Qty: 120 0RF magnesium citrate Solution 148 ml PO DAILY PRNQty: 296 2RF ziprasidone HCl [Geodon] 80 MG capsule 80 - 160 mg PO DIRECTED Rx Instructions: 80mg QAM 160mg @ 5PM WITH DINNER clozapine [Clozaril] 100 mg tablet See Rx Instructions PO QAM Rx Instructions: orally every morning; 200 mg qam + 375 mg qpm (confirmed dose w/genoa 01/15/25) clozapine 25 mg tablet See Rx Instructions PO HS Rx Instructions: orally bedtime; 200 mg qam + 375 mg qpm (confirmed dose w/genoa 01/15/25) celecoxib 100 mg capsule 100 mg PO BID Patient Comments: 100 mg BID escitalopram oxalate 20 mg tablet 20 mg PO DAILY Patient Comments: daily Extreme [place]-3 120-180-600 mg capsule 2 cap PO DAILY Patient Comments: on NOV as [place] XL Discharge Instructions Instructions: Minor Head Injury, Adult ED, Laceration Repair With Glue ED Additional Instructions: Call your primary care doctor in the morning to schedule an appointment for within the next 72 hours to followup on your visit here. At that visit mention your blood pressure which is high here today. Return to the emergency department for new or worsening symptoms including severe headache, vomiting, numbness, weakness, vertigo, difficulty walking, or if you have any other concerns. HPI General Mode of arrival: EMS. Date/Time Provider Initiated Documentation: 04/20/25 14:29. Limitations to Documentation: no limitations. Information obtained by: patient and EMS. HPI Narrative: 69yo M with developmental delay, lives in [facility], presenting via EMS for a witness fall. Was crossing the street, tripped, and fell forward. Patient states he got going too fast down the hill and then couldn't stop. No LOC. Not on any blood thinners. No N/V or TAYLOR. No vertigo, vision changes, numbness, or weakness. He reports mild pain in his left hand (caught himself with left hand) otherwise denies pain anywhere. Otherwise in his usual state of health with no fevers, chills, rash, chest pain neck pain, abodminal pain, or other concerns. Related Data Home Medications ?Medication ?Instructions ?Recorded ?Confirmed ziprasidone HCl 80 mg capsule 80 - 160 mg PO DIRECTED 06/18/17 04/20/25 (Geodon) calcium carbonate 500 mg (2.5 x 200 mg calcium (500 12/05/18 04/20/25 mg)) PO TID PRN PRN #0 tabs cyanocobalamin (vitamin B-12) 500 1,000 mcg (2 x 500 mcg) PO DAILY 01/23/19 04/20/25 mcg tablet (Vitamin B-12) #60 tabs docusate sodium 100 mg capsule 100 mg PO DAILY #30 caps 01/23/19 04/20/25 (Colace) magnesium chloride 64 mg 64 mg PO BID #30 tabs 01/23/19 04/20/25 (magnesium chloride) tablet,delayed release (Mag 64) multivitamin (Multiple Vitamins 1 tab PO DAILY #30 tabs 01/23/19 04/20/25 tablet) pantoprazole 40 mg tablet,delayed 40 mg PO BID@0730,2000 #30 tabs 01/23/19 04/20/25 release bupropion HCl 300 mg 24 hr tablet, 300 mg PO QAM 08/14/19 04/20/25 extended release (Wellbutrin XL) ferrous gluconate 324 mg (38 mg 324 mg PO DAILY 08/14/19 04/20/25 iron) tablet simvastatin 20 mg tablet 20 mg PO HS 08/14/19 04/20/25 acetaminophen 650 mg 650 mg PO BID 04/21/20 04/20/25 tablet,extended release (Tylenol Arthritis Pain) polyethylene glycol 3350 17 17 g PO DAILY PRN PRN 04/25/20 04/20/25 gram/dose oral powder hydroxyzine pamoate 25 mg capsule 25 mg PO DAILY PRN PRN 10/17/20 04/20/25 (Vistaril) lisinopril 2.5 mg tablet 2.5 mg PO DAILY 10/17/20 04/20/25 glucosamine sulfate 500 1 tab PO TID 11/23/22 04/20/25 mg-chondroitin 400 mg-msm 167 mg tablet clozapine 100 mg tablet (Clozaril) See Rx Instructions PO QAM 11/25/23 04/20/25 celecoxib 100 mg capsule 100 mg PO BID 04/24/24 04/20/25 clozapine 25 mg tablet See Rx Instructions PO HS 04/24/24 04/20/25 escitalopram oxalate 20 mg tablet 20 mg PO DAILY 04/24/24 04/20/25 omega 3-dha 120 mg-epa 180 mg-fish 2 cap PO DAILY 04/24/24 04/20/25 oil 600 mg capsule (Extreme [place]-3) umeclidinium 62.5 mcg-vilanterol See Rx Instructions .Route 06/10/24 04/20/25 25 mcg/actuation powdr for .COMPLEX #60 ea inhalation (Anoro Ellipta) folic acid 1 mg tablet 1 mg PO DAILY 01/08/25 04/20/25 pioglitazone 30 mg tablet (Actos) 30 mg PO DAILY 01/08/25 04/20/25 albuterol sulfate 90 mcg/actuation 2 puff inhalation Q6H PRN 01/09/25 04/20/25 aerosol inhaler (Ventolin HFA) metformin 500 mg tablet 500 mg PO BID 01/09/25 04/20/25 bupropion HCl 150 mg 24 hr tablet, 150 mg PO DAILY 01/11/25 04/20/25 extended release polyethylene glycol 3350 17 gram 17 g PO BID #60 ea 01/12/25 04/20/25 oral powder packet sucralfate 1 gram tablet (Carafate) 1 g PO QACHS #120 tabs 01/12/25 04/20/25 magnesium citrate 148 ml PO DAILY PRN #296 mL 01/19/25 04/20/25 fluticasone furoate 100 1 inh inhalation DAILY 03/18/25 04/20/25 mcg-vilanterol 25 mcg/dose inhalation powder (Breo Ellipta) Previous Rx's ?Medication ?Instructions ?Recorded calcium carbonate 500 mg (2.5 x 200 mg calcium (500 12/05/18 mg)) PO TID PRN PRN #0 tabs cyanocobalamin (vitamin B-12) 500 1,000 mcg (2 x 500 mcg) PO DAILY 01/23/19 mcg tablet (Vitamin B-12) #60 tabs docusate sodium 100 mg capsule 100 mg PO DAILY #30 caps 01/23/19 (Colace) magnesium chloride 64 mg 64 mg PO BID #30 tabs 01/23/19 (magnesium chloride) tablet,delayed release (Mag 64) multivitamin (Multiple Vitamins 1 tab PO DAILY #30 tabs 01/23/19 tablet) pantoprazole 40 mg tablet,delayed 40 mg PO BID@0730,1999 #30 tabs 01/23/19 release umeclidinium 62.5 mcg-vilanterol See Rx Instructions .Route 06/10/24 25 mcg/actuation powdr for .COMPLEX #60 ea inhalation (Anoro Ellipta) polyethylene glycol 3350 17 gram 17 g PO BID #60 ea 01/12/25 oral powder packet sucralfate 1 gram tablet (Carafate) 1 g PO QACHS #120 tabs 01/12/25 magnesium citrate 148 ml PO DAILY PRN #296 mL 01/19/25 Allergies Allergy/AdvReac Type Severity Reaction Status Date / Time Macrolide Antibiotics Allergy Severe Other (See Verified 01/14/25 20:52 Comment) General Stated Complaint: Fall/Non TraumaCriteria KENYON: 4 Review of Systems Narrative: see HPI Exam Narrative Exam Narrative: GENERAL: Alert, no acute distress SKIN: Warm and well perfused. HEAD: 0.75 x 0.75 triangular laceration/flap lateral to right eyebrow, hemostatic, very shallow. Right forehead echymosis. Facial bones without deformities or tenderness. EYES: PERRL. No scleral icterus or conjunctival injection. Extraocular muscles intact without nystagmus or diplopia. EARS: Normal appearing pinnae. No hemotympanum. NOSE: No discharge, tenderness, laxity. No nasal septal hematoma. MOUTH: No malocclusion or trismus. Moist mucus membranes without blood. P NECK: Trachea midline. No discolorations or edema. No midline cervical tenderness. Full pain free ROM. CV: Regular rate and rhythm, Normal s1 and s2. No murmurs, rubs, or gallops. PV: Radial pulses 2+ bilaterally and symmetric. Dorsalis pedis pulses 2+ bilaterally and symmetric. 2+ capillary refill. No extremity edema. CHEST: No abrasions or ecchymosis. Chest symmetric with respirations. No chest wall tenderness. Lungs are clear to auscultation bilaterally. ABDOMEN: No ecchymosis or abrasions. Soft, nondistended, nontender. BACK: No abrasions, skin openings, or ecchymosis. Spine without bony tenderness, no step offs. PELVIC: Pelvis stable, nontender to lateral compression and palpation of symphysis pubis. MSK: No gross deformities. Abrasions bilateral knees. Abrasions to thenar eminence of left hand Tolerates full range of motion of extremities without tenderness. No scaphoid tenderness NEURO: ? GCS 15.? PERRL.? EOMI.? Fluent speech, no dysarthria. Motor- 5/5 strength symmetric bilateral upper and lower extremities including shoulder abductors/adductors, elbow flexors/extensors, wrist flexors/extensors, finger abductors/adductors, hipflexors/extensors, knee flexors/extensors, ankle dorsiflexors and planter flexors. Sensation- ?Intact to light touch and symmetric multiple dermatomes including upper and lower extrmeities Coordination- No dysmetria on finger to nose Reflexes- 2/4 achilles & patellar, no clonus Gait/station: ?Normal stance.? No truncal ataxia. Steady gait with equal normal steps CRANIAL NERVES: II: Pupils equal and reactive, III, IV, : EOM intact, no gaze preference or deviation, no nystagmus. V: normal sensation in V1, V2, and V3 segments bilaterally VII: no asymmetry, no nasolabial fold flattening VIII: normal hearing to speech IX, X: normal palatal elevation, no uvular deviation XI: 5/5 head turn and 5/5 shoulder shrug bilaterally XII: midline tongue protrusion Course Vital Signs Vital signs: Vital Signs Temperature 36.9 C 04/20/25 14:27 Pulse 97 H 04/20/25 14:27 Respiratory Rate 20 04/20/25 14:27 Blood Pressure 165/89 H 04/20/25 14:27 Pulse Oximetry 92 04/20/25 14: Temperature 36.9 C 04/20/25 14:27 Pulse 97 H 04/20/25 14:27 Respiratory Rate 20 04/20/25 14:27 Blood Pressure 165/89 H 04/20/25 14:27 Blood Pressure Position Sitting 04/20/25 14:27 Pulse Oximetry 92 04/20/25 14:27 Oxygen Delivery Method Room Air 04/20/25 14:27 Oxygen Flow Rate 0 04/20/25 14:27 Procedure Laceration Laceration 1: Date of Procedure: 04/20/25 Time of procedure: 15:00 Patient Consented: Verbally Site: face Side (If applicable): right Description: linear and flap Depth: simple, single layer Skin layer closed with: other (glue) Medical Decision Making 69yo M with hx HTN, COPD, DM, CVA, developmental delay, lives in [facility], presenting via EMS for a witnessed fall from standing. Pt states he was going to fast down the hill and couldn't stop, tripped. No LOC, TAYLOR/N/V. Vital signs reassuring on arrival. Normal neurologic exam. C-spine clinically cleared. Laceration on right synagogue closed with glue. Tetanus UTD, no booster needed. Given age, CT head ordered and independently reviewed; no large bleed or mass on my view, radiology read with no acute findings. Ambulated in department steadily. On reassessment he now reports a mild headache; given PO tylenol. Discharged home; discharge instructions and return precautions were reviewed with patient who verbalized understanding. All questions were answered and he is in full agreement with the plan. Quality:SDOH Health Related Social Needs: Health related social needs material hardship PFSH All Active Problems (Updated 04/20/25 @ 16:25 by Janel Duffy MD) Laceration of skin of face (Acute) Head injury (Acute) Fall (Acute) Anemia (Chronic) Gastroenteritis (Acute) Acute exacerbation of chronic obstructive airways disease (Acute) Pulmonary nodule (Acute) Asthma-COPD overlap syndrome (Acute) Recurrent pneumonia (Acute) Pain (Chronic) Pneumonia (Acute) H/O: CVA (cerebrovascular accident) (Acute) Diabetes mellitus (Chronic) HCAP (healthcare-associated pneumonia) (Acute) UTI (urinary tract infection) (Acute) Acute pyelonephritis (Acute) COPD (chronic obstructive pulmonary disease) (Chronic) Constipation, chronic (Chronic) Discharge planning issues (Acute) Schizo affective schizophrenia (Chronic) Non-insulin dependent type 2 diabetes mellitus (Chronic) Oropharyngeal dysphagia (Acute) Hypertension (Chronic) GERD (gastroesophageal reflux disease) (Chronic) Medical History (Updated 04/20/25 @ 16:25 by Janel Duffy MD) Community acquired pneumonia Constipation Small bowel obstruction MSSA bacteremia Sepsis Acidosis, lactic [place] (acute kidney injury) Adrenal hyperplasia Pulmonary emboli Acute thrombosis of right basilic vein Complication associated with peripherally inserted central catheter (PICC) Normocytic anemia H/O schizophrenia Family History Mother No problems noted. Social History Smoking/Tobacco Use Status: Former Tobacco Use Quit Date: 09/30/99 Tobacco: How many years used: 43 Smoking risk assessment performed?: Yes Alcohol Intake: former Drug use: Occasionally Substance use type: does not use Housing: assisted living facility Do you feel safe at home: Yes Do you feel safe in your relationship?: Yes Additional Social history: [employer] Have you Been Recently Intoxicated or Drunk Within the Last 30 days?: No Have you Ever Experienced Previous Episodes of Alcohol Withdrawal?: No Have you ever Experienced Withdrawal Seizures?: No Have you ever Experienced Delirium Tremens(DT)s?: No Have you ever undergone Alcohol Rehabilitation Treatment (i.e, inpt ot outpatient treatment programs)?: No Have you ever Experienced Blackouts?: No Have you ever Combined Alcohol with other Downers within the last 90 days?: No Have you ever Combined Alcohol with any other Substance of Abuse during the last 90 days?: No Positive Blood Alcohol level on Presentation? [PCS.BAL]: No Evidence of Increased Autonomic Activity (i.e. HR>120, tremor, sweating, agitation, nausea)?: No Result: 0
--- NOTE | 2025-04-20 16:15 | DI.CT_ITS ---
Exam(s) CT HEAD WO EXAM: CT HEAD WO CLINICAL HISTORY: fall, TAYLRO. TECHNIQUE: Imaging Protocol: Axial computed tomography images with coronal and sagittal reformatted images were created and reviewed COMPARISON: CT CT HEAD WO from 04/21/2020 FINDINGS: Ventricles and Extra axial spaces: Normal in size and morphology for the patient's age. Hemorrhage: None. Cerebral parenchyma: There are areas of decreased attenuation in the white matter consistent with chronic microvascular ischemic disease. No acute mass effect is present. No findings to suggest an acute territorial infarct are seen. Midline shift: None. Brainstem/Cerebellum: Normal. Calvarium: Normal. Visualized Paranasal sinuses/Mastoids: Clear. Soft Tissues: Unremarkable. IMPRESSION: No acute intracranial process. RADIATION DOSE DELIVERED: 888.93mGy.cm Total DLP DATA REPOSITORY: All CT scans at this facility are submitted to the National Radiology Data Registry (NRDR) Dose Index Registry (DIR) with the [employer] (ACR). RADIATION OPTIMIZATION: All CT scans at this facility use at least one of these dose optimization techniques: automated exposure control; mA and/or kV adjustment per patient size (includes targeted exams where dose is matched to clinical indication); or iterative reconstruction.
== END 2025-04-20 20:14 | disposition home or self-care (01) ==
PROVIDERS: Emergency Provider Student in an Organized Health Care Education/Training Program; PCP Nurse Practitioner Family
DX: S01.111A Laceration without foreign body of right eyelid and periocular area, initial encounter (principal); W19.XXXA Unspecified fall, initial encounter
CPT/HCPCS: 99284; 99283; 12011; 70450

== ENCOUNTER 2025-05-04 03:41 | Outpatient (CLI) | payer MEDICARE, MEDICAID, SELFPAY ==
[2025-05-04 13:16] LABS: Abs Immature Grans 0.13 10^3/uL (0.0-0.06); HCT 39.7 % (40.0-50.0); HGB 12.8 g/dL (13.5-17.5); Immature Grans % 0.7 %; MCH 29.2 pg (27.0-33.0); MCHC 32.2 % (32.0-36.0); MCV 90 fL (80-95); MPV 10.5 fL (8.0-11.0); Platelet Count 191 10^3/uL (130-400); RBC 4.39 10^6/uL (4.36-5.78); RDW 15.1 % (11.8-14.1); RDW-SD 50.0 fL; WBC 19.50 10^3/uL (4.4-10.8)
== END 2025-05-04 03:42 | disposition home or self-care (01) ==
PROVIDERS: PCP Nurse Practitioner Family; Visit Provider Nurse Practitioner Psychiatric/Mental Health
DX: Z79.899 Other long term (current) drug therapy (principal)
CPT/HCPCS: 36415; 85025

== ENCOUNTER → 2025-05-11 10:32 | Outpatient (BNVA) | payer MEDICARE, MEDICAID, SELFPAY | PROVIDERS: PCP Nurse Practitioner Family; Referring Provider Nurse Practitioner Family; Visit Provider Internal Medicine Pulmonary Disease | DX: J44.9 Chronic obstructive pulmonary disease, unspecified (principal); R91.8 Other nonspecific abnormal finding of lung field; J18.9 Pneumonia, unspecified organism; Z87.891 Personal history of nicotine dependence | CPT/HCPCS: 99215; 94618; 36415 ==

== ENCOUNTER 2025-05-11 15:19 | Outpatient (REF) | payer MEDICARE, MEDICAID, SELFPAY ==
[2025-05-13 11:19] LABS: Complement, Total 64 U/mL (30-75)
== END 2025-05-11 15:20 | disposition home or self-care (01) ==
LOC: LBN 15:19
PROVIDERS: PCP Nurse Practitioner Family; Visit Provider Internal Medicine Pulmonary Disease
DX: J18.9 Pneumonia, unspecified organism (principal)
CPT/HCPCS: 82784; 82785; 86162

== ENCOUNTER 2025-05-17 12:43 | Day surgery (SDC) | payer MEDICARE, MEDICAID, SELFPAY ==
[2025-05-17] VITALS (19 sets, daily range): BP systolic 92–169; BP diastolic 57–86; PULSE 82–99; RESP 16–23; TEMP 36.1–37.3; O2SAT 88–94; BMI 25.1
--- NOTE | 2025-05-17 12:21 | W.PM.OP ---
Operative Note Operative Note PRE-OP DIAGNOSIS: Pulmonary infiltrates POST-OP DIAGNOSIS: other (Bronchiectasis, bronchomalacia, mucous plugging) PROCEDURE: Flexible fiberoptic bronchoscopy, diagnostic and therapeutic SURGEON: Sergio Riley ANESTHESIA TYPE: General LMA/ETT (Under the direction the anesthesiology team and as per anesthesia record) Refer to Anesthesia Record PATHOLOGY: other (Bronchoalveolar lavage was obtained in the inferior segment of the lingula and lateral segment of the right lower lobe. Samples were sent for bacterial/fungal/afb cultures, cell count, cytopathology, and aspergillus ag. Biopsies taken: none) Procedure Description: The risks (including bleeding, respiratory failure, and pneumothorax), benefits, and alternatives of the procedure were discussed with the patient and consent was obtained.? A Time Out was held and the above information confirmed. Following the induction of general anesthesia, the patient was ventilation through an LMA. The bronchoscope was passed through the LMA. The vocal cords were visualized and lidocaine was topically placed onto the cords. The cords were normal. The scope was then passed into the trachea.?Additional lidocaine was used topically.? A full endobronchial examination was performed.? There were thick, purulent secretion in the mainstem bronchi, the right middle lobe, right lower lobe, left upper lobe and left lower lobe. No endobronchial masses or lesions were seen. There was bilateral bronchomalacia from the mainstem bronchi to the segmental bronchi. 50 mL of saline was injected into the inferior segment of the lingula and 15 mL was aspirated. 80 mL of saline was injected into the lateral segment of the right lower lobe and 20 mL was aspirated. The remaining secretions were sunctioned until clear. The airways were clear to the level of the segmental bronchi. The Patient was taken to the Endoscopy Recovery area in satisfactory condition. Date of Procedure: 05/17/25
[2025-05-17] MEDS: Lactated Ringers 1,000 ML 30 ML IV (13:53)
--- NOTE | 2025-05-17 14:14 | W.ANESPRE ---
General Info Date of Service Date Performed: 05/17/25 Height: 5 ft 8 in Weight: 75 kg Body Mass Index (BMI): 25.1 Surgical Procedure: Operation Date: 05/17/25 14:10 Proposed Procedure Side Surgeon p Bronchoscopy Sergio Riley MD Actual Procedure Side Surgeon p Bronchoscopy w/ BAL Not Applicable Sergio Riley MD Pre-Op Diagnosis Post-Op Diagnosis Pulmonary infiltrates Pulmonary infiltrates Meds Allergies and Home Medications Allergies Allergy/AdvReac Type Severity Reaction Status Date / Time Macrolide Antibiotics Allergy Severe Other (See Verified 05/17/25 12:52 Comment) prednisone AdvReac Intermediate Agitation Verified 05/17/25 12:52 Home Medication ?Medication ?Instructions ?Recorded ziprasidone HCl 80 mg capsule 80 - 160 mg PO DIRECTED 06/18/17 (Geodon) calcium carbonate 500 mg (2.5 x 200 mg calcium (500 12/05/18 mg)) PO TID PRN PRN #0 tabs cyanocobalamin (vitamin B-12) 500 1,000 mcg (2 x 500 mcg) PO DAILY 01/23/19 mcg tablet (Vitamin B-12) #60 tabs docusate sodium 100 mg capsule 100 mg PO DAILY #30 caps 01/23/19 (Colace) magnesium chloride 64 mg 64 mg PO BID #30 tabs 01/23/19 (magnesium chloride) tablet,delayed release (Mag 64) multivitamin (Multiple Vitamins 1 tab PO DAILY #30 tabs 01/23/19 tablet) pantoprazole 40 mg tablet,delayed 40 mg PO BID@0730,2000 #30 tabs 01/23/19 release bupropion HCl 300 mg 24 hr tablet, 300 mg PO QAM 08/14/19 extended release (Wellbutrin XL) ferrous gluconate 324 mg (38 mg 324 mg PO DAILY 08/14/19 iron) tablet simvastatin 20 mg tablet 20 mg PO HS 08/14/19 acetaminophen 650 mg 650 mg PO BID 04/21/20 tablet,extended release (Tylenol Arthritis Pain) polyethylene glycol 3350 17 17 g PO DAILY PRN PRN 04/25/20 gram/dose oral powder hydroxyzine pamoate 25 mg capsule 25 mg PO DAILY PRN PRN 10/17/20 (Vistaril) lisinopril 2.5 mg tablet 2.5 mg PO DAILY 10/17/20 glucosamine sulfate 500 1 tab PO TID 11/23/22 mg-chondroitin 400 mg-msm 167 mg tablet clozapine 100 mg tablet (Clozaril) See Rx Instructions PO QAM 11/25/23 celecoxib 100 mg capsule 100 mg PO BID 04/24/24 clozapine 25 mg tablet See Rx Instructions PO HS 04/24/24 escitalopram oxalate 20 mg tablet 20 mg PO DAILY 04/24/24 omega 3-dha 120 mg-epa 180 mg-fish 2 cap PO DAILY 04/24/24 oil 600 mg capsule (Extreme Mckinney-3) umeclidinium 62.5 mcg-vilanterol See Rx Instructions .Route 06/10/24 25 mcg/actuation powdr for .COMPLEX #60 ea inhalation (Anoro Ellipta) folic acid 1 mg tablet 1 mg PO DAILY 01/08/25 pioglitazone 30 mg tablet (Actos) 30 mg PO DAILY 01/08/25 albuterol sulfate 90 mcg/actuation 2 puff inhalation Q6H PRN 01/09/25 aerosol inhaler (Ventolin HFA) metformin 500 mg tablet 500 mg PO BID 01/09/25 bupropion HCl 150 mg 24 hr tablet, 150 mg PO DAILY 01/11/25 extended release polyethylene glycol 3350 17 gram 17 g PO BID #60 ea 01/12/25 oral powder packet sucralfate 1 gram tablet (Carafate) 1 g PO QACHS #120 tabs 01/12/25 magnesium citrate 148 ml PO DAILY PRN #296 mL 01/19/25 fluticasone furoate 100 1 inh inhalation DAILY 03/18/25 mcg-vilanterol 25 mcg/dose inhalation powder (Breo Ellipta) Current Visit Medications: Current Medications Generic Name Dose Route Start Last Admin Trade Name Freq PRN Reason Stop Dose Admin Ringer's Solution 1,000 mls @ 30 mls/hr 05/17/25 06:00 05/17/25 13:53 IV 05/17/25 23:59 30 mls/hr INFUSION RUSTY Administration IV Miscellaneous Supplies 1 each 05/17/25 06:00 Iv Access IV 05/17/25 23:59 DIRECTED RUSTY Sodium Chloride 0 ml 05/17/25 06:00 Normal Saline Flush 10 Ml Syr IV 05/17/25 23:59 PRN PRN Sodium Chloride 0 ml 05/17/25 06:00 Normal Saline 10 Ml Vial IJ 05/17/25 23:59 DIRECTED PRN Sterile Water 0 ml 05/17/25 06:00 Water,Injection,Sterile 10 Ml Vial IJ 05/17/25 23:59 DIRECTED PRN PFSH Active Problems Active Problems: Problem Status Onset Code Chronic hypoxemic respiratory failure Acute J96.11 Pulmonary infiltrates Acute R91.8 Laceration of skin of face Acute S01.81XA Head injury Acute S09.90XA Fall Acute W19.XXXA Anemia Chronic D64.9 Gastroenteritis Acute K52.9 Acute exacerbation of chronic obstructive airways disease Acute J44.1 Nuclear age-related cataract, left eye Resolved H25.12 Pulmonary nodule Acute R91.1 Asthma-COPD overlap syndrome Acute J44.9 Recurrent pneumonia Acute J18.9 Pain Chronic R52 Pneumonia Acute J18.9 H/O: CVA (cerebrovascular accident) Acute Z86.73 Diabetes mellitus Chronic E11.9 HCAP (healthcare-associated pneumonia) Acute J18.9 UTI (urinary tract infection) Acute N39.0 Acute pyelonephritis Acute N10 COPD (chronic obstructive pulmonary disease) Chronic J44.9 Acute respiratory failure with hypoxia Resolved J96.01 Constipation, chronic Chronic K59.09 Discharge planning issues Acute Z02.9 Schizo affective schizophrenia Chronic F25.0 Non-insulin dependent type 2 diabetes mellitus Chronic E11.9 Oropharyngeal dysphagia Acute R13.12 Hypertension Chronic I10 GERD (gastroesophageal reflux disease) Chronic K21.9 Medical History Medical History Community acquired pneumonia Constipation Small bowel obstruction MSSA bacteremia Sepsis Acidosis, lactic [place] (acute kidney injury) Adrenal hyperplasia Pulmonary emboli Acute thrombosis of right basilic vein Complication associated with peripherally inserted central catheter (PICC) Normocytic anemia H/O schizophrenia Medical History Comments:: Pt. lives in Assisted living facility. Pt. signs for self, and is ambulatory and know his own meds as well. 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 Vehicle Delivery Worker states that you will need to repeat things Tobacco Smoking/Tobacco Use Status: Former Tobacco Use Passive smoking exposure: No Alcohol Alcohol Intake: former Substance Use Substance use: Occasionally Substance use type: does not use Vital Signs and Lab Results Vital Signs Most Recent Vital Signs in EMR: Most Recent Vital Signs Temp Pulse Resp BP Pulse Ox 36.5 C 93 H 20 169/85 H 94 05/17/25 12:57 05/17/25 12:57 05/17/25 12:57 05/17/25 12:57 05/17/25 12:57 Point of Care Results Point of Care Results: Finger Stick Blood Glucose 199 05/17/25 13:08 Lab Results Complete Blood Count: WBC, (4.4-10.8) 19.50 10^3/uL H 05/04/25, 13:02 RBC, (4.36-5.78) 4.39 10^6/uL 05/04/25, 13:02 Hgb, (13.5-17.5) 12.8 g/dL L 05/04/25, 13:02 Hct, (40.0-50.0) 39.7 % L 05/04/25, 13:02 Plt Count, (130-400) 191 10^3/uL 05/04/25, 13:02 Imaging and Studies Imaging and Studies Study information below may be from another EMR and interpreted by another provider. Please see original notes in EMR for more complete details. EKG Summary: DATE/TIME OF SERVICE: 03/30/21 1317 : 1955 PERFORMING LOCATION: [place] APPROVED REPORT Exam: Resting ECG Reason for Exam: pain Patient Location: I HR:96 bpm ECG Measurements Heart Rate 96 AXIS VT 155 P 62 QRSd 105 QRS -32 QT 369 T60 QTc 467 Conclusion Sinus rhythm...normal P axis, V-rate 60- 99 Left axis deviation...QRS axis (-30,-90) Echocardiogram Summary: Date of Exam: 01/26/20 Sex: M Admission Date: 01/22/20 : 1955 Age: 64 Exam(s) a US:US echocardiogram APPROVED REPORT EXAM: Comprehensive 2D, Doppler, and color-flow Echocardiogram Patient [facility] Operator: Keerthi Lowry RDCS (AE) Indications: Staph Bacteremia Conclusion This is a limited echo specifically to look for valvular vegetations. Left Ventricle : The Left Ventricular Ejection Fraction is within the low???normal range Valves: There are no valvular vegetations visualized. Compared to echocardiogram dated 01/04/2020: There is no significant change. Pulmonary Function Summary: Date of service: 06/07/21 Time of Service: 10:04 Pulmonary Function Test Result Requesting Provider Joehene Indications: COPD, recurrent pneumonias Interpretation Spirometry: There is moderate obstruction. There is a positive bronchodilator response. Lung Volumes: There is evidence of hyperinflation and air trapping. Diffusion Capacity: The diffusion is normal. Airway Pressure: Airways resistance is normal. Impression There is moderate obstruction with hyperinflation and air trapping with a significant bronchodilator response. Clinical Correlation therefore is recommended. Anesthesia Assessment and Plan Anesthesia History Personal History: No History of Anesthesia Complications Family History: No Family History of Anesthesia Complications Exercise Tolerance Exercise Tolerance: Metabolic Equivalents>4 Pertinent Negatives Pertinent Negatives: No Symptoms of GERD Cardiac & Pulmonary Exam Cardiac Exam: Normal S1/S2 Heart Sounds Pulmonary Exam: Clear Bilateral Breath Sounds Implantable Cardiac Device Does patient have a Pacemaker or an ICD?: No Airway Exam Known Difficult Airway: No Mallampati Class: 2 Mouth Opening: Normal (> 3cm) Thyromental Distance: Greater than 3 cm Neck Range of Motion: Full ROM Neck Circumference: Normal Teeth Condition: Removable Dentures/Plates Upper and Removable Dentures/Plates Lower ASA Classification ASA Score: ASA 3 Emergency Case?: No NPO Status NPO Status: NPO Clears >2 hours, Solids >8 hours Anesthesia Plan Resuscitation Status: Full Code Anesthesia Technique: General Anesthesia Airway Planned: LMA Monitors Used: Standard Monitors
[2025-05-17] MEDS: Lidocaine 1% Pres-Free 5 ML VIAL (14:28)
--- NOTE | 2025-05-17 14:30 | PAPNONF_PTH ---
PATIENT: Koko Estevez LOC: [facility] U#:[id number] AGE/SX: 70/M ROOM: RE05/17/[address]: Sergio Riley : 1955 BED: DIS: 05/17/2025 SPEC #: [id number] RECD: 05/17/25 18:22 STATUS: HEATH REQ #: [id number] PIPE: 05/17/25 14:[address]: Sergio Riley DEPT: [facility] Cytology RECD BY: Zuly Perry ENTERED: 05/17/25 18:22 SP TYPE: TERI PERAZA DR: Columba Carter Tissues: 1 - BODY FLUID CYTO(NOT S/U/N/EM)[facility] 2 - BODY FLUID CYTO(NOT S/U/N/EM)[facility] Procedures: BODY FLUID CYTO(NOT SPU/UR/NIP/ENDOM)[facility] Comments: [id number] (SENT FRESH) (REFRIGERATED)
[2025-05-17] MEDS: Albuterol 2.5 MG/3 ML INH SOLN VIAL UPD (15:50)
--- NOTE | 2025-05-17 17:23 | ANES.POST_ITS ---
Postoperative Evaluation Date, Time and Location Date Performed: 05/17/25 Time Performed: 17:23 Patient Location: Day Surgery Unit Vital Signs Most Recent Imported Vital Signs: Most Recent Vital Signs Temp Pulse Resp BP Pulse Ox 36.3 C L 94 H 16 131/79 92 05/17/25 16:11 05/17/25 16:11 05/17/25 16:11 05/17/25 16:11 05/17/25 16:11 Pain Score Most Recent Pain Score: Most Recent Pain Score Pain Level 0 05/17/25 16:11 Assessment Mental Status: Awake (Alert & Oriented to Patient Baseline) Airway and Respiratory Function: Abnormal Respiratory exam (See explanation) (See Below) Cardiovascular Function: Hemodynamically Stable Hydration Status: Adequately Hydrated Nausea & Vomiting: No Nausea or Vomiting Pain: Pt. Denies Any Pain Peripheral Nerve Block: Patient did not receive a nerve block Postoperative Comments:: Pt. continued to have productive cough post procedure. O2 sats 88-89%. Given Albuterol neb with O2 sats at 94%. Drifted back down to 88-89% after a period of time. Assisted living facility indicated that he normally runs in the high 80's. Pt states that his breathing is adequate and he does not feel SOB. Discharged to [facility] living [facility] wit plan in place to bring back to ED if breathing becomes worse and pt is symptomatic. Deepthi Mojica, GRA[employer]ODUCTS INSPECTOR
--- NOTE | 2025-05-17 17:45 | NUR.NOTE ---
Nursing Note: Patient unable to maintain oxygen saturation above 92% on RA. Beth unable to get ahold of MD after multiple attempts. Patient was discharged on RA O2 of 89%, beth ok'd patient to discharge with 89% oxygen saturation r/t patient normally living in this range from 89-94%. Patient's staff said that patient normally lives in this range. Patient is to be checked on and O2 will be periodically checked and if anything changes patient will be transported to the ER. called back to DSU after patient had been discharged at 1727, this RN informed of anes plan and that patient had been D/C'd, and the plan for the facility to check patient throughout the evening and night, and patient will be brought into the ER with any changes. stated that was ok and that he would have his office call patient tomorrow to check up on patient.
[2025-05-17 22:48] LABS: Eosinophils Fluid Relative 2 % ((See Note)); Lymphocytes Fluid Relative 6 % ((See Note)); Mono/Macrophage Fluid Relative 13 % ((See Note)); Neutrophils Fluid Relative 79 % ((See Note))
[2025-05-18 10:59] LABS: Mono/Macrophage Fluid Relative 1 % ((See Note)); Neutrophils Fluid Relative 99 % ((See Note))
== END 2025-05-17 17:20 | disposition home or self-care (01) ==
LOC: SUR 12:43
PROVIDERS: PCP Nurse Practitioner Family; Visit Provider Internal Medicine Pulmonary Disease
PROC: 0BJ08ZZ Inspection of Tracheobronchial Tree, Via Natural or Artificial Opening Endoscopic (ICD-10-PCS; CPT 31622; principal; 2025-05-17 14:00)
DX: J47.9 Bronchiectasis, uncomplicated (principal); R91.8 Other nonspecific abnormal finding of lung field; J98.09 Other diseases of bronchus, not elsewhere classified
CPT/HCPCS: 31624; 00123; 80162; 87070; 87077; 87102; 87116; 87186; 87205; 87206; 87305; 88104; J2003; J2704; J7613

== ENCOUNTER 2025-06-08 10:39 | Outpatient (CLI) | payer MEDICARE, MEDICAID, SELFPAY ==
[2025-06-08 12:38] LABS: Abs Immature Grans 0.40 10^3/uL (0.0-0.06); HCT 39.8 % (40.0-50.0); HGB 12.8 g/dL (13.5-17.5); Immature Grans % 2.5 %; MCH 27.9 pg (27.0-33.0); MCHC 32.2 % (32.0-36.0); MCV 87 fL (80-95); MPV 9.6 fL (8.0-11.0); Platelet Count 328 10^3/uL (130-400); RBC 4.59 10^6/uL (4.36-5.78); RDW 15.0 % (11.8-14.1); RDW-SD 47.4 fL; WBC 15.89 10^3/uL (4.4-10.8)
== END 2025-06-08 10:40 | disposition home or self-care (01) ==
PROVIDERS: PCP Nurse Practitioner Family; Visit Provider Nurse Practitioner Psychiatric/Mental Health
DX: Z79.899 Other long term (current) drug therapy (principal)
CPT/HCPCS: 36415; 85025

== ENCOUNTER 2025-06-10 15:09 | Outpatient (REF) | payer MEDICARE, MEDICAID, SELFPAY | END 2025-06-10 15:10 | disposition home or self-care (01) | LOC: NCHCN 15:09 | PROVIDERS: PCP Nurse Practitioner Family; Visit Provider Family Medicine | DX: J18.9 Pneumonia, unspecified organism (principal) | CPT/HCPCS: 87070; 87205 ==

== ENCOUNTER 2025-07-07 03:45 | Outpatient (CLI) | payer MEDICARE, MEDICAID, SELFPAY ==
[2025-07-07 11:58] LABS: Abs Immature Grans 0.27 10^3/uL (0.0-0.06); HCT 39.5 % (40.0-50.0); HGB 12.9 g/dL (13.5-17.5); Immature Grans % 2.3 %; MCH 28.8 pg (27.0-33.0); MCHC 32.7 % (32.0-36.0); MCV 88 fL (80-95); MPV 9.1 fL (8.0-11.0); Platelet Count 300 10^3/uL (130-400); RBC 4.48 10^6/uL (4.36-5.78); RDW 15.8 % (11.8-14.1); RDW-SD 51.0 fL; WBC 11.49 10^3/uL (4.4-10.8)
[2025-07-07 12:25] LABS: Hemoglobin A1C 6.8 % (<5.7)
[2025-07-07 12:26] LABS: Calculated LDL 71 mg/dL (<100); Cholesterol 154 mg/dL (<200); HDL Cholesterol 63 mg/dL (>or=40); Triglyceride 100 mg/dL (<150)
[2025-07-07 17:00] LABS: COMMENT (LAB VIEW ONLY) 286.32 mg/dL; Microalb ug/mg Crea 16.2 ug/mg Cr
[2025-07-07 23:32] LABS: PSA, Screening 1.1 ng/mL (<=6.5)
== END 2025-07-07 03:46 | disposition home or self-care (01) ==
PROVIDERS: Family Medicine; Nurse Practitioner Psychiatric/Mental Health; PCP Nurse Practitioner Family; Visit Provider Nurse Practitioner Psychiatric/Mental Health
DX: E11.69 Type 2 diabetes mellitus with other specified complication (principal); R35.1 Nocturia; Z79.899 Other long term (current) drug therapy
CPT/HCPCS: 36415; 80061; 84153; 82043; 82570; 83036; 85025

== ENCOUNTER 2025-08-04 03:20 | Outpatient (CLI) | payer MEDICARE, MEDICAID, SELFPAY ==
[2025-08-04 11:30] LABS: Abs Immature Grans 0.08 10^3/uL (0.0-0.06); HCT 36.8 % (40.0-50.0); HGB 11.8 g/dL (13.5-17.5); Immature Grans % 0.8 %; MCH 28.8 pg (27.0-33.0); MCHC 32.1 % (32.0-36.0); MCV 90 fL (80-95); MPV 10.0 fL (8.0-11.0); Platelet Count 311 10^3/uL (130-400); RBC 4.10 10^6/uL (4.36-5.78); RDW 15.5 % (11.8-14.1); RDW-SD 51.5 fL; WBC 10.05 10^3/uL (4.4-10.8)
[2025-08-04 12:13] LABS: ALT 21 U/L (16-63); AST 12 U/L (15-37); Albumin 2.9 g/dL (3.4-5.0); Alkaline Phosphatase 120 U/L (46-116); Anion Gap 7.7 mmol/L (3-11); BUN 9 mg/dL (7-18); Bilirubin, Total 0.2 mg/dL (0.2-1.0); CO2 29.3 mmol/L (21.0-32.0); Calcium 8.8 mg/dL (8.5-10.1); Chloride 101 mmol/L (98-107); Glucose 245 mg/dL (74-106); Potassium 4.5 mmol/L (3.5-5.1); Sodium 138 mmol/L (136-145); Total Protein 7.3 g/dL (6.4-8.2)
== END 2025-08-04 03:21 | disposition home or self-care (01) ==
LOC: LBO 03:20
PROVIDERS: PCP Nurse Practitioner Family; Visit Provider Registered Nurse
DX: Z79.899 Other long term (current) drug therapy (principal); Z51.81 Encounter for therapeutic drug level monitoring; F20.1 Disorganized schizophrenia
CPT/HCPCS: 36415; 80053; 85025

== ENCOUNTER → 2025-08-25 11:20 | Outpatient (BNVA) | payer MEDICARE, MEDICAID, SELFPAY | PROVIDERS: PCP Nurse Practitioner Family; Referring Provider Nurse Practitioner Family; Visit Provider Internal Medicine Pulmonary Disease | DX: J44.89 Other specified chronic obstructive pulmonary disease (principal); J18.9 Pneumonia, unspecified organism; R91.8 Other nonspecific abnormal finding of lung field; J43.2 Centrilobular emphysema; Z87.891 Personal history of nicotine dependence | CPT/HCPCS: 99214 ==

== ENCOUNTER 2025-09-02 01:45 | Outpatient (CLI) | payer MEDICARE, MEDICAID, SELFPAY ==
[2025-09-02 11:22] LABS: Abs Immature Grans 0.07 10^3/uL (0.0-0.06); HCT 40.5 % (40.0-50.0); HGB 13.1 g/dL (13.5-17.5); Immature Grans % 0.8 %; MCH 28.9 pg (27.0-33.0); MCHC 32.3 % (32.0-36.0); MCV 89 fL (80-95); MPV 10.1 fL (8.0-11.0); Platelet Count 274 10^3/uL (130-400); RBC 4.53 10^6/uL (4.36-5.78); RDW 16.0 % (11.8-14.1); RDW-SD 52.6 fL; WBC 8.89 10^3/uL (4.4-10.8)
[2025-09-06 18:24] LABS: Clozapine+Norclozapine Total 1297 ng/mL
== END 2025-09-02 01:46 | disposition home or self-care (01) ==
LOC: LBO 01:45
PROVIDERS: PCP Nurse Practitioner Family; Visit Provider Registered Nurse
DX: F20.1 Disorganized schizophrenia (principal); Z51.81 Encounter for therapeutic drug level monitoring
CPT/HCPCS: 36415; 80159; 85025

== ENCOUNTER → 2025-09-21 00:49 | Outpatient (CLI) | payer MEDICARE, MEDICAID, SELFPAY ==
--- NOTE | 2025-09-21 09:01 | DI.CT_ITS ---
Exam(s) CT CHEST WO EXAM: CT CHEST WO CLINICAL HISTORY: re-evaluate bilateral pulmonary infiltrates,r91.8. TECHNIQUE: Multi planar reconstructions were performed. CONTRAST MATERIAL: None COMPARISON: CT CT CHEST W from 04/01/2025 FINDINGS: CHEST: LUNGS: There are again noted multiple nodular infiltrates in the right lung, some which have improved and some of which have increased. Overall, there appears to be some improvement in the appearance of the right lung. There are no pleural effusions. In the opposite-left lung there is also some improvement. No pleural effusion. MEDIASTINUM: There is no obvious hilar nor mediastinal adenopathy. Visualized thyroid unremarkable.No obvious axillary adenopathy CARDIAC: Heart size is normal. There is no pericardial effusion.Caliber of the thoracic aorta is within normal limits. VISUALIZED UPPER ABDOMEN:Small hypodense nodules in the adrenal glands are most probably adenomas. Calcified granulomas are noted in the nonenlarged spleen. 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 This was evident on 04/01/2025. There is also a healed fracture of the left 11th rib. These fractures were acute in March 2025. OTHER: Significant unilateral right-sided gynecomastia is again noted. IMPRESSION: 1. Persistent bilateral multilevel nodular infiltrates, again noted be more prominent in the right lung but exhibiting some mild improvement bilaterally. There are no pleural effusions. 2. No obvious intrathoracic adenopathy. 3. 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 Unilateral right-sided gynecomastia is again noted. RADIATION DOSE DELIVERED: 203.63mGy.cm Total DLP DATA REPOSITORY: All CT scans at this facility are submitted to the National Radiology Data Registry (NRDR) Dose Index Registry (DIR) with the [employer] (A[employer]). RADIATION OPTIMIZATION: All CT scans at this facility use at least one of these dose optimization techniques: automated exposure control; mA and/or kV adjustment per patient size (includes targeted exams where dose is matched to clinical indication); or iterative reconstruction.
== END ==
LOC: DI 00:49
PROVIDERS: PCP Nurse Practitioner Family; Visit Provider Internal Medicine Pulmonary Disease
DX: R91.8 Other nonspecific abnormal finding of lung field (principal)
CPT/HCPCS: 71250

== ENCOUNTER 2025-09-29 16:04 | Outpatient (REF) | payer MEDICARE, MEDICAID, SELFPAY ==
[2025-09-29 17:58] LABS: Abs Immature Grans 0.09 10^3/uL (0.0-0.06); HCT 38.3 % (40.0-50.0); HGB 12.1 g/dL (13.5-17.5); Immature Grans % 0.9 %; MCH 28.7 pg (27.0-33.0); MCHC 31.6 % (32.0-36.0); MCV 91 fL (80-95); MPV 11.7 fL (8.0-11.0); Platelet Count 243 10^3/uL (130-400); RBC 4.21 10^6/uL (4.36-5.78); RDW 15.7 % (11.8-14.1); RDW-SD 53.1 fL; WBC 9.86 10^3/uL (4.4-10.8)
== END 2025-09-29 16:05 | disposition home or self-care (01) ==
LOC: LBN 16:04
PROVIDERS: PCP Nurse Practitioner Family; Visit Provider Registered Nurse
DX: Z51.81 Encounter for therapeutic drug level monitoring (principal); F20.1 Disorganized schizophrenia; F33.1 Major depressive disorder, recurrent, moderate; F41.1 Generalized anxiety disorder
CPT/HCPCS: 85025